=== PATIENT | male | born 1980 | race American Indian/Alaskan Native ===

== ENCOUNTER 2017-08-18 14:52 | Emergency (ER) | payer OTHER ==
[~2017-08-18] VITALS: Ht 172.7 cm; Wt 125.2 kg
--- OUTSIDE RECORDS SUMMARY | ~2017-08-18 | XMS | Encounter Summary ---
Demographics + + + | Address | [address] | | | [place] [address] | + + + | Home Phone | | + + + | Preferred Language | Unknown | + + + | Marital Status | | + + + | Latter Day Affiliation | NON | + + + | Race | or | + + + | Ethnic Group | Not or | + + + Author + + + | Author | [facility] | + + + | Organization | [facility] | + + + | Address | Unknown | + + + | Phone | Unavailable | + + + Support +------+ +---------+ + | Name | Relationship | Address | Phone | +------+ +---------+ + ECON | Unknown | | +------+ +---------+ + ECON | Unknown | | +------+ +---------+ + Care Team Providers + +------+-------+ | Care Body Make Up Artist Name | Role | Phone | + +------+-------+ | Bernardo Pan | PCP | tel | + +------+-------+ Encounter Details +--------+ + + + + | Date | Type | Department | Care Team | Description | +--------+ + + + + | 07/17/ | MyChart | Cardiology General | | A message from your | | 2017 | Encounter | at [facility] [address] | | [employer] | | | | [place] Mailcode: | | | | | | [facility] | | | | | | Health and Healing, | | | | | | [address] [facility], | | | | | | [place] [address] | | | | | | [phone] | | | +--------+ + + + [...] | | + + +---------+ + | Yes [...]
[~2017-08-18 14:52] MED LIST: ANDROGEL5 GM TD; ATORVASTATIN CA20 MG PO; DESMOPRESSIN A0.2 MG PO; EFFIENT10 MG PO; GENOTROPIN SUB-Q; HYDROCODON-ACE1 EAC8 PO; HYDROCORTISONE20 MG PO; IBUPROFEN800 MG PO; IPRATROPIUM BRO15 ML NAS; LEVOTHYROXINE150 MCG PO; LISINOPRIL2.5 MG PO; METFORMIN HCL500 MG PO; METOPROLOL TART25 MG PO; NORCO 10-325 T1 EACH PO; PHENTERMINE H37.5 M1 PO
[2017-08-18] MEDS ORDERED: FENOFIBRATE145 MG PO (14:58)
[2017-08-18] MEDS ORDERED: ASPIR 8181 MG PO (14:58)
[2017-08-18] MEDS ORDERED: ZESTRIL40 MG PO (15:12)
[2017-08-18] MEDS ORDERED: AMLODIPINE BESY10 MG PO (15:14)
[2017-08-18] MEDS ORDERED: GENOTROPIN SUB-Q (15:15)
[2017-08-18] MEDS ORDERED: SERTRALINE HCL50 MG PO (15:16)
[2017-08-18] MEDS ORDERED: XANAX XR0.5 MG PO (15:16)
[2017-08-18] MEDS ORDERED: PROMETHAZINE HC25 M1 PO (15:16)
[2017-08-18] MEDS ORDERED: CYCLOBENZAPRINE10 MG PO (15:17)
[2017-08-18] MEDS ORDERED: PSEUDOEPHEDRINE60 MG PO (15:18)
--- NOTE | 2017-08-18 20:30 | EKG ---
[facility] [address] [facility] [place] [address] Signed Poor data quality, interpretation may be adversely affected Normal sinus rhythm Normal ECG No previous ECGs available Confirmed by APRIL ÁLVAREZ MD ([id number]) on 08/18/2017 8:29:42 PM Electronically Signed By: APRIL ÁLVAREZ MD 08/18/17 2030 PATIENT NAME: FAROOQ LEMA JULIO Electrocardiogram DATE OF : 78 PHYSICIAN: APRIL ÁLVAREZ MD REPORT #: [id number] REPORT IS CONFIDENTIAL AND NOT TO BE RELEASED WITHOUT AUTHORIZATION
== END 2017-08-18 16:20 | disposition home or self-care (01) ==
LOC: ED 14:52
DX: R07.9 Chest pain, unspecified (principal); I10 Essential (primary) hypertension; I25.2 Old myocardial infarction; E66.01 Morbid (severe) obesity due to excess calories; Z87.891 Personal history of nicotine dependence; Z95.5 Presence of coronary angioplasty implant and graft; Z88.1 Allergy status to other antibiotic agents; Z88.8 Allergy status to other drugs, medicaments and biological substances; Z79.82 Long term (current) use of aspirin; Z79.899 Other long term (current) drug therapy
CPT/HCPCS: 71045; 80053; 84484; 85025; 93005; 93010; 96374; 99284; J1885

== ENCOUNTER 2018-11-07 21:27 | Emergency (ER) | payer OTHER ==
[~2018-11-07] VITALS: Ht 172.7 cm; Wt 124.7 kg
--- OUTSIDE RECORDS SUMMARY | ~2018-11-07 | XMS | Clinical Summary ---
Demographics + + + | Address | [address] | | | [place] [address] | + + + | Home Phone | | + + + | Preferred Language | Unknown | + + + | Marital Status | Single | + + + | Yarsanism Affiliation | Unknown | + + + | Race | Unknown | + + + | Ethnic Group | Unknown | + + + Author + + + | Author | [facility] | | | and [place] | + + + | Organization | [facility] | | | and [place] [...] Team Providers + +------+ + | Care Committee Member Name | Role | Phone | + +------+ + | Priscilla Ramírez PA-C | PP | | + +------+ + Allergies + + + + + + | Active Allergy | Reactions | Severity | Noted | Comments | | | | | Date | | + + + + + + | Bacitracin | Other (See Comments) | | 02/14/20 | Doesn't recall | | | | | 15 | reaction | + + + + + + | Isosorbide | Nausea And Vomiting, | High | 03/29/20 | And headache | | | Nausea Only | | 18 | | + + + + + + | Sulfamethoxazole-Tri | Hives, Nausea And | Medium | 07/23/20 | Sores in mouth | | methoprim | Vomiting | | 15 | | + + + + + + Current Medications + + +-------+---------+------+------+-------+ | Prescription | Sig. | Disp. | Refills | Star | End | Statu | | | | | | t | Date | s | | | | | | Date | | | + + +-------+---------+------+------+-------+ | metoprolol | Take 25 mg by mouth | | | 04/10 | | Activ | | tartrate (LOPRESSOR) | Daily. | | | 10/27 | | e | | 25 mg tablet | | | | 12 | | | + + +-------+---------+------+------+-------+ | atorvaSTATin | Take 40 mg by mouth | | | 04/10 | | Activ | | (LIPITOR) 40 mg | Daily. | | | 10/27 | | e | | tablet | | | | 12 | | | + + +-------+---------+------+------+-------+ | desmopressin | Take 0.2 mg by mouth | | | | | Activ | | (DDAVP) 0.2 MG | Daily. Take 1 1/2 | | | | | e | | tablet | tablet int the | | | | | | | | morning and 2 | | | | | | | | tablets int the | | | | | | | | evening | | | | | | + + +-------+---------+------+------+-------+ | levothyroxine | Take 125 mcg by | | | | | Activ | | (SYNTHROID, | mouth every morning | | | | | e | | LEVOTHROID) 175 MCG | (before breakfast). | | | | | | | tablet | | | | | | | + + +-------+---------+------+------+-------+ | Somatropin, | Inject 0.8 mg under | | | | | Activ | | Non-Refrigerated, 5 | the skin Daily. | | | | | e | | MG SOLR | | | | | | | + + +-------+---------+------+------+-------+ | hydrocortisone | Take 25 mg by mouth | | | | | Activ | | (CORTEF) 20 MG | Daily. | | | | | e | | tablet | | | | | | | + + +-------+---------+------+------+-------+ | metFORMIN | Take 500 mg by mouth | | | | | Activ | | (GLUCOPHAGE) 500 mg | 2 times daily (with | | | | | e | | tablet | breakfast & | | | | | | | | dinner). | | | | | | + + +-------+---------+------+------+-------+ | promethazine | Take 25 mg by mouth | | | | | Activ | | (PHENERGAN) 25 mg | every 6 hours as | | | | | e | | tablet | needed. | | | | | | + + +-------+---------+------+------+-------+ | | Take 1 tablet by | | | | | Activ | | HYDROcodone-acetamin | mouth every 4 hours | | | | | e | | ophen (NORCO) 10-325 | as needed. | | | | | | | mg per tablet | | | | | | | + + +-------+---------+------+------+-------+ | Cholecalciferol | Take 7,000 Int'l | | | | | Activ | | (VITAMIN D-3 PO) | Units by mouth | | | | | e | | | Daily. | | | | | | + + +-------+---------+------+------+-------+ | hydrocortisone | Take 5 mg by mouth | | | | | Activ | | (CORTEF) 5 MG tablet | Daily. | | | | | e | + + +-------+---------+------+------+-------+ | aspirin 81 mg EC | Take 81 mg by mouth | | | | | Activ | | tablet | Daily. | | | | | e | + + +-------+---------+------+------+-------+ | fenofibrate | Take 145 mg by mouth | | | | | Activ | | (TRICOR) 145 mg | Daily. | | | | | e | | tablet | | | | | | | + + +-------+---------+------+------+-------+ | clopidogrel | Take 75 mg by mouth | | | | | Activ | | (PLAVIX) 75 mg | Daily. | | | | | e | | tablet | | | | | | | + + +-------+---------+------+------+-------+ | amLODIPine | Take 10 mg by mouth | | | | | Activ | | (NORVASC) 10 MG | Daily. | | | | | e | | tablet | | | | | | | + + +-------+---------+------+------+-------+ | ALPRAZolam (XANAX) | Take 0.5 mg by mouth | | | | | Activ | | 0.5 mg tablet | 3 times daily as | | | | | e | | | needed for Anxiety. | | | | | | + + +-------+---------+------+------+-------+ | sertraline | Take 75 mg by mouth | | | | | Activ | | (ZOLOFT) 50 mg | Daily. | | | | | e | | tablet | | | | | | | + + +-------+---------+------+------+-------+ | cyclobenzaprine | Take 10 mg by mouth | | | | | Activ | | (FLEXERIL) 10 mg | 3 times daily as | | | | | e | | tablet | needed for Muscle | | | | | | | | spasms. | | | | | | + + +-------+---------+------+------+-------+ | fexofenadine | Take 180 mg by mouth | | | | | Activ | | (ADINA) 180 mg | as needed. | | | | | e | | tablet | | | | | | | + + +-------+---------+------+------+-------+ | ranolazine | Take 500 mg by mouth | | | | | Activ | | (RANEXA) 500 mg 12 | 2 times daily. | | | | | e | | hr tablet | | | | | | | + + +-------+---------+------+------+-------+ | testosterone | Inject 200 mg into | | | | | Activ | | cypionate | the muscle every 14 | | | | | e | | (DEPO-TESTOSTERONE) | days. | | | | | | | 200 mg/mL injection | | | | | | | + + +-------+---------+------+------+-------+ | lisinopril | Take 40 mg by mouth | | | | | Activ | | (PRINIVIL,ZESTRIL) | Daily. | | | | | e | | 40 MG tablet | | | | | | | + + +-------+---------+------+------+-------+ | pseudoePHEDrine | Take 60 mg by mouth | | | | | Activ | | (SUDAFED) 60 MG | Daily as needed for | | | | | e | | tablet | Congestion. | | | | | | + + +-------+---------+------+------+-------+ | hydrocortisone, | Inject 50 mg into | | | | | Activ | | PF, (SOLU-CORTEF) 50 | the vein as needed | | | | | e | | mg/mL injection | (adrenal shock). 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 Last | | [facility] 04/2017 in the setting of NSTEMI demonstrated DISTRIBUTION TECHNICIAN RCA with | | collateral flow from LCx, patent mCx stent, 95% proximal LAD | | bifurcation stenosis s/p ROBERTO x 1, LVEDP 36. His chest pain | | resolved after this intervention but started again approximately | | 4 months ago and has been progressing. He has typical angina and | | now occasional gets chest pain at rest. Today he is not | | complaining of chest pain. ECG shows submm diffuse ST elevation | | and q-waves in the inferior leads. He is intolerant to isosorbide | | mononitrate.-- referral for angiogram. Patient advised to avoid | | significant activity until angiogram is completed. He understands | | that he is to call 911 if he develops chest pain that does not | | go away with rest or SL nitroglycerin. Please note that he has | | had multiple unsuccessful/complicated attempts at RRA access.-- | | continue metoprolol 100mg BID-- start ranolazine 500mg BID, EKG | | checked today (QTc 370)-- labs today including pre angiogram labs | | and lp(a)-- stop tobacco use, recommended trial of chewing gum | | instead-- healthy lifestyle changes discussed at length today. | | Weight loss, exercise.-- in the future would likely benefit from | | consultation from Dr. Richardson and Shyann Joseph-- check lp(a) | | to see if he might benefit/quality from more aggressive lipid | | lowering therapy-- continue atorvastatin 80mg, he is also taking | | fenofibrate 145mg daily (ok to continue), LDL 61 on this dose-- | | continue aspirin 81mg-- continue plavix 75mg-- needs better DM | | control as per PCP and nurse practitioner physicians assistant-- BP well controlled today | + + + + + | Excess or deficiency of vitamin D | 07/19/2018 | + + + | Headache | 07/19/2018 | + + + | Lightheadedness | 07/19/2018 | + + + | Mitral valve mass | 07/19/2018 | + + + + + | Overview: Last Assessment & Plan: I have personally reviewed | | the images. I think that the previously seen cardiac mass could | | be artifact versus posterior wall of the left atrium/mitral | | annulus.-- gated cardiac CT to fully evaluate | + + + + + | Nausea and vomiting | 07/19/2018 | + + + | Rib pain | 07/19/2018 | + + + | Spasm of back muscles | 07/19/2018 | + + + | Type 2 diabetes mellitus (HCC) | 07/19/2018 | + + + | Cardiac mass | 03/29/2018 | + + + | Mitral leaflet abnormality | 06/04/2016 | + + + | Vitamin D deficiency | 05/16/2016 | + + + | Deviated nasal septum | 03/21/2016 | + + + | Hypertrophy of nasal turbinates | 03/21/2016 | + + + | Obstructive sleep apnea (adult) (pediatric) | 03/21/2016 | + + + | Hypertrophy of tonsils alone | 03/21/2016 | + + + | Family history of esophageal cancer | 07/25/2015 | + + + | Obesity, unspecified | 07/24/2015 | + + + | Abnormal weight loss | 07/24/2015 | + + + | Coronary atherosclerosis | 06/12/2014 | + + + + + | Overview: Last Assessment & Plan: 2V-CAD, Hx TX, Hx | | PCI/stent, LVEF 60-65%. 36yo M, known to have coronary | | disease, distant infarction, angioplasty and stenting. 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 He going | | to follow up with [facility] Aug 14. He also had cath report prior to | | procedure which had shown 2 vessel coronary artery disease with | | moderate disease to that proximal to mid LAD, stent to left CX, | | chronically occluded RCA with shou-rg-btvcy collaterals. | | Suggestion had been for a saphenous vein graft to be RCA if | | surgery was done Recent CT-head negative for CVA/TIA. He's had a | | number of MRAs of the brain in the past, there've been no prior | | history of stroke, but with his pituitary adenoma and treatments, | | symptoms may be confusing. Previously, Lipid panel reviewed, at | | goal. He reports that his blood pressure has continued to be | | high high but no problems with chest pain. We had started him | | and amlodipine 5 mg when last seen, and metoprolol increased to | | 100 mg this week by PCP, and he reports his systolic blood | | pressure has been improving since he started on metoprolol. He | | is now back to work but has not been as active since weather has | | been colder. He continues to chew tobacco but reports his | | diabetes is now better controlled with his A1c decreased to 6 | | when tested last month. I have asked him to follow-up with her | | nurse practitioner, Sammie conroy, whom he has met before, | | in 3 months. I also asked him to work on increasing his exercise | | and stopping chewing tobacco.Hx CABG: noHx PCI/stent: 02/19/2011, | | mid-LCx (3.5*12mm Promus ROBERTO).Hx Pacemaker/ICD: noLast | | Cath,07/02/2016: 2 vessel coronary artery disease with moderate | | disease of proximal to mid LAD, patent stent and a left | | circumflex, chronically occluded RCA with ulki-ar-jpedu | | collaterals. Suggestion for surgery: saphenous vein graft to | | RCA.Last Echo, 05/22/2016 ([facility]): LVEF 60-65%, | | significant WMA, 7-8mm mass LV-side of posterior Mitral leaflet, | | no MR, trace TR.Last Stress Test, 10/03/2014: Lexiscan, | | infero-apical ischemia, LVEF 54%.ECG, 07/02/2016: sinus rhythm, | | 63bpm, old inferior TX. | + + + + + | Essential hypertension | 06/12/2014 | + + + + + | Overview: Last Assessment & Plan: Hypertension, controlled, | | continue current meds at current doses (amlodipine, metoprolol, | | lisinopril). I will increase amlodipine when I see him next at | | his blood pressure is still not well-controlled.Last Assessment & | | Plan: Well controlled today. Goal BP < 130/80. Cr 1.07 and K 4.4 | | 02/2018.-- continue amlodipine 10mg daily-- continue lisinopril | | 40mg-- continue metoprolol 100mg BID | |-- continue metoprolol 100mg BID | + + + + + | History of pituitary tumor | 06/12/2014 | + + + + + | Overview: Last Assessment & Plan: Pituitary adenoma, followed | | by [facility], associated with hypogonadism, hypothyroidism, diabetes | | insipidus, and adrenal insufficiency. On replacement | | therapy.MRI-brain, 07/13/2151 ([facility]): FINDINGS: Sella and | | parasellar: There is a stable postsurgical appearance of the | | sella with opacification the sphenoid sinus is most likely | | related to surgical packing and/or mucosal thickening. There is a | | stable amount of enhancing tissue within the pituitary fossa but | | no new mass effect or nodularity. Stable mildly thickened | | pituitary infundibulum. Infundibulum is midline. Optic chiasm is | | normal. Parasellar structures are normal. Brain: Visualized | | portions are unremarkable. Soft tissues and marrow: Visualized | | portions are unremarkable. Stable posttreatment appearance of | | the sella is noted since 12/09/[address]-head, | | 06/06/2016: No evidence of acute intracranial hemorrhage, | | transcortical infarction mass. Sphenoid sinusitis with near | | complete opacification. Trace right basilar effusion, probably | | inflammatory. | + + + + + | HLD (hyperlipidemia) | 06/12/2014 | + + + + + | Overview: Last Assessment & Plan: Hyperlipidemia, at gaol, | | continue current meds at current dose (atorvastatin). He reports | | labs done recently and I have asked for them | + + + + + | Acute upper respiratory infection | 08/11/2013 | + + + | Infected insect bite | 06/02/2013 | + + + | Neck sprain | 06/07/2012 | + + + | Disorder of testis | 10/22/2011 | + + + | Fatigue | 10/22/2011 | + + + | Abnormal weight gain | 07/21/2011 | + + + | Contusion of chest | 06/19/2011 | + + + | Ganglion and cyst of synovium, tendon and bursa | 05/29/2011 | + + + | Chest pain | 03/26/2011 | + + + | Acute myocardial infarction (HCC) | 03/11/2011 | + + + | Plantar fasciitis | 03/11/2011 | + + + | Sprain of knee | 01/16/2011 | + + + | Sprain of lateral collateral ligament of knee | 01/16/2011 | + + + | OBSTRUCTIVE SLEEP APNEA | 11/22/2010 | + + + | Hip pain | 11/19/2010 | + + + | Lumbar sprain | 11/19/2010 | + + + | Strain of rotator cuff capsule | 08/26/2010 | + + + | Bursitis of shoulder | 08/13/2010 | + + + | Strain of supraspinatus muscle or tendon | 08/13/2010 | + + + | Myocardial infarction (HCC) | 08/10/2010 | + + + | Acquired hypothyroidism | 07/15/2010 | + + + | Benign essential hypertension | 07/15/2010 | + + + | Diabetes insipidus (HCC) | 07/15/2010 | + + + | Family history of arthritis | 07/15/2010 | + + + | Family history of cardiovascular disease | 07/15/2010 | + + + | Family history of diabetes mellitus | 07/15/2010 | + + + | Family history of musculoskeletal disease | 07/15/2010 | + + + | Mixed hyperlipidemia | 07/15/2010 | + + + | Pituitary dwarfism (HCC) | 07/15/2010 | + + + | Thoracic back sprain | 07/15/2010 | + + + | PANHYPOPITUITARISM | 12/10/2009 | + + + | PITUITARY ADENOMA | 12/10/2009 | + + + | PAINFUL RESPIRATION | 12/10/2009 | + + + | POLYNEUROPATHY OTHER DISEASES CLASSIFIED ELSW | 12/10/2009 | + + + | Adrenal insufficiency (HCC) | 12/08/2006 | + + + | Growth hormone deficiency (HCC) | 12/08/2006 | + + + | Hypogonadism male | 12/08/2006 | + + + | Hypothyroid | 12/08/2006 | + + + | PAIN IN THORACIC SPINE | | + + + | DEGENERATIVE DISC DISEASE, CERVICAL SPINE | | + + + | Shoulder joint pain | | + + + | NECK PAIN | | + + + | Low back pain | | + + + Encounters +--------+---------+ + + + | Date | Type | Specialty | Care Team | Description | +--------+---------+ + + + | 09/28/ | Office | | Sumanth Champion PA | MALLIKA on CPAP (Primary | | 2019 | Visit | | | Dx) | +--------+---------+ + + + from Last 3 Months Social History + + + +--------+ + [...] + +---------+ + | Alcohol Use | Drinks/We | oz/Week | Comments | | | ek | | | + + +---------+ + | No | | | | + + +---------+ + + + + | Sex Assigned at | Date Recorded | | | | + + + | Not on file | | + + + Last Filed Vital Signs + + + + | Vital Sign | Reading | Time Taken | + + + + | Blood Pressure | 124/74 | 09/28/2018 1343 PST | + + + + | Pulse | 58 | 09/28/2018 1343 PST | + + + + | Temperature | 36.6 C (97.9 F) | 06/09/2018 1100 PDT | + + + + | Respiratory Rate | 16 | 09/28/2018 1343 PST | + + + + | Oxygen Saturation | 97% | 09/28/20181342 PST | + + + + | Inhaled Oxygen | - | - | | Concentration | | | + + + + | Weight | 122 kg (268 lb 15.4 | 09/28/20181342 PST | | | oz) | | + + + + | Height | 172.7 cm (5' 8") | 09/28/20181342 PST | + + + + | Body Mass Index | 40.9 | 09/28/20181342 PST | + + + + Plan of Treatment +--------+---------+ + + + | Date | Type | Specialty | Care Team | Description | +--------+---------+ + + + | 11/21/ | Office | | Sumanth Champion PA | | | 2020 | Visit | | [address] | | | | | | [place] | | | | | | [address] | | | | | | | | +--------+---------+ + + + + + + + + | Health Maintenance | Due Date | Last Done | Comments | + + + + + | Diabetic Eye Exam | | | | | | 7 | | | + + + + + | Diabetic Foot Exam | | | | | | 7 | | | + + + + + | Hemoglobin A1c Q3 | | | | | Months | 7 | | | + + + + + | Vaccine: | | | | | Dtap/Tdap/Td (1 - | 8 | | | | Tdap) | | | | + + + + + | Vaccine: | | | | | Pneumococcal 19-64 | 8 | | | | (PPSV23 only) Medium | | | | | Risk (1 of 1 - | | | | | PPSV23) | | | | + + + + + | Vaccine: Influenza | Completed | 2018 | | + + + + + Results Not on filefrom Last 3 Months Insurance + +--------+ +--------+ +---------+ | Payer | Benefi | Subscriber | Type | Phone | Address | | | t Plan | ID | | | | | | / | | | | | | | Group | | | | | + +--------+ +--------+ +---------+ | [employer] | [employer] | [id number] | Medica | [phone]- | | | MEDICAID HMO | HEALTH | | id | 9821 | | | | MDCD | | | | | | | [place] | | | | | + +--------+ +--------+ +---------+ | [facility] | IHS | [id number] | Indemn | | | | SERVICE | YELLOW | | ity | | | | | [place] | | | | | + +--------+ +--------+ +---------+ + +--------+ +--------+ + + | Guarantor Name | Accoun | Relation to | Date | Phone | Billing Address | | | t Type | Patient | of | | | | | | | | | | + +--------+ +--------+ + + | FAROOQ LEMA | Person | Self [birth year] Home: | [address] | | | ivan/Héctor | | 1979 | [phone] | [place] | | | luli | | | 1969 | [phone] | + +--------+ +--------+ + +
--- OUTSIDE RECORDS SUMMARY | ~2018-11-07 | XMS | Encounter Summary ---
Demographics + + + | Address | [address] | | | [place] [address] | + + + | Home Phone | | + + + | Preferred Language | Unknown | + + + | Marital Status | Single | + + + | Yazidism Affiliation | NON | + + + | Race | or | + + + | Ethnic Group | Not or | + + + Author + + + | Author | [email or web address] | + + + | Organization | [email or web address] | + + + | Address | Unknown | + + + | Phone | Unavailable | + + + Support + + +---------+ + | Name | Relationship | Address | Phone | + + +---------+ + | CARLOS HAAS | ECON | Unknown | | + + +---------+ + Care Team Providers + +------+ + | Care Hod Carrier Name | Role | Phone | + [...] Description | +--------+--------+ + + + | 10/21/ | Refill | Neurosurgery at | [place], | Refill Request | | 2019 | | [facility] [address] | [place], | | | | | [place] Mailcode: [id number] | DNP,MELTER SUPERVISOR,[place] [address] | | | | | [facility] | [place], | | | | | and Healing | [place] [address] | | | | | [place], [place] | [phone] | | | | | [address] | | | | | | [phone] | | | +--------+--------+ + + + [...] +---------+ + | No | | | occasionally | + + +---------+ + + + + | Sex Assigned at | Date Recorded | | | | + + + | Not on file | | + + + as of this encounter Plan of Treatment Not on fileas of this encounter Visit Diagnoses Not on filein this encounter"
--- OUTSIDE RECORDS SUMMARY | ~2018-11-07 | XMS | Clinical Summary ---
Demographics + + + | Address | 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 Last | | [facility] 04/2017 in the setting of NSTEMI demonstrated CHAIN BUILDER LOOM CONTROL RCA with | | collateral flow from [...] | | control as per PCP and tsa screener-- BP well controlled today | + + [...] Overview: Last Assessment & Plan: 2V-CAD, Hx ID, Hx | | PCI/stent, LVEF 60-65%. 36yo M, known to have coronary | | disease, distant infarction, angioplasty and stenting. 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 He going | | to follow up with [facility] Aug 14. He also had cath report prior to | | procedure which had shown 2 vessel coronary artery disease with | | moderate disease to that proximal to mid LAD, stent to left CX, | | chronically occluded RCA with [id number]-gh-[id number] collaterals. | | Suggestion had been for [...] | | circumflex, chronically occluded RCA with bapl-zz-utmuj | | collaterals. Suggestion for surgery: saphenous vein graft to | | RCA.Last Echo, 05/22/2016 ([facility]): LVEF 60-65%, | | significant WMA, 7-8mm mass LV-side of posterior Mitral leaflet, | | no MR, trace TR.Last Stress Test, 10/03/2014: Lexiscan, | | infero-apical ischemia, LVEF 54%.ECG, 07/02/2016: sinus rhythm, | | 63bpm, old inferior ID. | + + + + + | [...] Plan: Pituitary adenoma, followed | | by [facility], associated with hypogonadism, hypothyroidism, diabetes | | insipidus, and adrenal insufficiency. On replacement | | therapy.MRI-brain, 07/13/2151 ([facility]): FINDINGS: Sella and | | parasellar: There [...] 2020 | Visit | | [address] | | | | | | [place] | | | | | | [address] | | | | | | | [...] | [employer] | MODA | [id number] | Medica | [phone]- | | | MEDICAID HMO | HEALTH | | id | [id number] | | | | MDCD | | | | | | | [place] | | | | | + +--------+ +--------+ +---------+ | [facility] | IHS | [id number] | Indemn | | | | SERVICE [...] | Self | [birth year] | Home: | [address] | | | ivan/[place]ctor | | 1979 | [phone] | [place] | | | [place] | | | [phone] | [phone] | + +--------+ +--------+ + +
--- OUTSIDE RECORDS SUMMARY | ~2018-11-07 | XMS | Encounter Summary ---
Demographics + + + | Address | [address] | | | [place] [address] | + + + | Home Phone [...] + + | Author | [email or web address] | + + + | Organization | [facility] [email or web address] [facility] | + + + | Address | Unknown | + + + | Phone | Unavailable | + + + Support + + +---------+ + | Name | Relationship | Address | Phone | + + +---------+ + | CARLOS HAAS | ECON | Unknown | | + + +---------+ + Care Team Providers + +------+ + | Care Director Of Counterintelligence Name | Role | Phone | + [...] Description | +--------+--------+ + + + | 09/16/ | Refill | Neurosurgery at | [facility], | Refill Request | | 2019 | | [facility] [address] | Cathie, | | | | | Rosalva Mailcode: [id number] | DNP,PAINT SPRAYING MACHINE 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
--- OUTSIDE RECORDS SUMMARY | ~2018-11-07 | XMS | Encounter Summary ---
Demographics + + + | Address | [address] [facility] | | | [place] [address] | + + + | Home Phone | | + + + | Preferred Language | Unknown | + + + | Marital Status | Single | + + + | Jainism Affiliation | NON | + + + | Race | or | + + + | Ethnic Group | Not or | + + + Author + + + | Author | [facility] | + + + | Organization | [facility] | + + + | Address | Unknown | + + + | Phone | Unavailable | + + + Support + + +---------+ + | Name | Relationship | Address | Phone | + + +---------+ + | CARLOS HAAS | ECON | Unknown | | + + +---------+ + Care Team Providers + +------+ + | Care Scrap Baler Name | Role | Phone | + +------+ + | Priscilla Ramírez PA-C | PCP | | + +------+ + Encounter Details +--------+ + + + + | Date | Type | Department | Care Team | Description | +--------+ + + + + | 10/22/ | MyChart | Cardiology General | | Cardiology Follow up | | 2019 | Encounter | at [facility] [address] | | appointment | | | | [place] Mailcode: | | | | | | [facility] | [facility] | [facility], | | | | | | [address]th Floor [place], | | | | | | [place] [address] | | | | | | [phone] | | | +--------+ + + + [...]
--- OUTSIDE RECORDS SUMMARY | ~2018-11-07 | XMS | Clinical Summary ---
Demographics + + + | Address | [address] | | | [place] [address] | + + + | Home Phone | | + + + | Preferred Language | Unknown | + + + | Marital Status | Single | + + + | Uatsdin Affiliation | Unknown | + + + | Race | Unknown | + + + | Ethnic Group | Unknown | + + + Author + + + | Author | [facility] | + + + | Organization | [facility] | + + + | Address | Unknown | + + + | Phone | Unavailable | + + + Support + + + + + | Name | Relationship | Address | Phone | + + + + + | Alexandria Dixon | ECON | [address] | | | | | [place] | | | | | [address] | | + + + + + | Detailed,Message | ECON | Unknown | | + + + + + | Sofia Reyes ECON | Unknown | | + + + + + Care Team Providers + +------+ + | Care Veterinary Medicine Scientist Name | Role | Phone | + [...] Take 1 tablet by | | | 11/2 | | Activ | | (GLUCOPHAGE) 500 MG | mouth 2 (two) times | | | 6/20 | | e | | tablet | [...] | | (COUMADIN) 5 MG | daily. [place] | | | | | e | | tablet | regulates | | | | | | + + +--------+---------+------+------+-------+ Active Problems + + + | Problem | Noted Date | + + + | CAD (coronary artery disease) | 06/12/2014 | + + + + + | Last Assessment & Plan: 2V-CAD, Hx VA, Hx PCI/stent, LVEF | | 60-65%. 36yo M, known to have coronary disease, distant | | infarction, angioplasty and stenting. 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 He had gone to | | 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 He going to follow up | | with [facility] Aug 14. He also had cath report prior to procedure | | which had shown 2 vessel coronary artery disease with moderate | | disease to that proximal to mid LAD, stent to left CX, | | chronically occluded RCA with eeob-qx-[id number] collaterals. | | Suggestion had been for [...] | | circumflex, chronically occluded RCA with bzpy-it-xgyvq | | collaterals. Suggestion for surgery: saphenous vein graft to | | RCA.Last Echo, 05/22/2016 ([facility]): LVEF 60-65%, | | significant WMA, 7-8mm mass LV-side of posterior Mitral leaflet, | | no MR, trace TR.Last Stress Test, 10/03/2014: Denzeliscan, | | infero-apical ischemia, LVEF 54%.ECG, 07/02/2016: sinus rhythm, | | 63bpm, old inferior VA. | + + + + + | [...] | Last Assessment & Plan: Hyperlipidemia, at [facility], continue | | current meds at current dose (atorvastatin). He reports labs | | done recently and I have asked for them | + + + + + | History of pituitary tumor | 06/12/2014 | + + + + + | Last Assessment & Plan: Pituitary adenoma, followed by [facility], | | associated with hypogonadism, hypothyroidism, diabetes insipidus, | | and adrenal insufficiency. On replacement therapy.MRI-brain, | | 07/13/2151 (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
--- OUTSIDE RECORDS SUMMARY | ~2018-11-07 | XMS | Clinical Summary ---
Demographics + + + | Address | [address] | | | [place] [address] | + + + | Home Phone [...] Author + + + | Author | [facility] | + + + | Organization | [facility] | + + + | Address | Unknown | + + + | Phone | Unavailable | + + + Support + + +---------+ + | Name | Relationship | Address | Phone | + + +---------+ + | CARLOS HAAS | ECON | Unknown | | + + +---------+ + Care Team Providers + +------+ + | Care Travelers' Aid Worker Name | Role | Phone | + +------+ + | Priscilla Ramírez PA-C | PP | | + +------+ + Source Comments [facility] is fully live on both [facility] and [facility] Allergies + + + + + + | Active Allergy | Reactions | Severity | Noted | Comments | | | | | Date | | + + + + + + | Sulfamethoxazole-Tri | Hives, Nausea and | Medium | 11/15/19 | Sores in mouth | | methoprim | Vomiting, Unknown | | 15 | Sores in mouth | + + + + + + | Isosorbide | Headache, Nausea | High | 03/29/20 | | | | | | 18 | | + + + + + + Current Medications + + +--------+---------+------+------+-------+ | Prescription | Sig. | Disp. | Refills | Star | End | Statu | | | | | | t | Date | s | | | | | | Date | | | + + +--------+---------+------+------+-------+ | promethazine 25 mg | Take 1 tablet by | 20 | 1 | 10/2 | | Activ | | oral tablet | mouth four times | tablet | | 4/20 | | e | | | daily as needed for | | | 14 | | | | | nausea/vomiting. | | | | | | + + +--------+---------+------+------+-------+ | hydrocortisone | Inject 1ml for | 1 mg | 1 | 03/1 | | Activ | | sodium succinate, | symptoms of adrenal | | | 9/20 | | e | | PF, (HYDROCORTISONE | crisis. Low blood | | | 15 | | | | SODIUM SUCCINATE) | pressure, vomiting, | | | | | | | 100 mg/2 mL | high heart rate. | | | | | | | injection recon soln | | | | | | | + + +--------+---------+------+------+-------+ | levothyroxine 125 | Take 1 tablet by | 90 | 1 | 04/1 | | Activ | | mcg oral tablet | mouth before | tablet | | 0/20 | | e | | | breakfast. | | | 15 | | | + + +--------+---------+------+------+-------+ | | Take 1 tablet by | | | | | Activ | | HYDROcodone-acetamin | mouth every six | | | | | e | | ophen 10-325 mg oral | hours as needed for | | | | | | | tablet | moderate pain. 4-6 | | | | | | | | tabs daily | | | | | | + + +--------+---------+------+------+-------+ | metFORMIN 500 mg | 2 tabs at breakfast | 90 | 5 | 06/10 | | Activ | | oral tablet | and one tab at | tablet | | 3/20 | | e | | | dinner dialy | | | 15 | | | + + +--------+---------+------+------+-------+ | DEPO-TESTOSTERONE | Inject 200 mg under | | | 10/0 | | Activ | | 200 mg/mL | the skin (SUBC) | | | 5/20 | | e | | intramuscular oil | every fourteen days. | | | 16 | | | + + +--------+---------+------+------+-------+ | cholecalciferol, | Take 6,000 Units by | | | | | Activ | | vitamin D3, 4,000 | mouth once daily. | | | | | e | | unit oral tablet | | | | | | | + + +--------+---------+------+------+-------+ | fenofibrate 145 mg | Take 145 mg by mouth | | 1 | 03/10 | | Activ | | oral tablet | once daily. | | | 0/20 | | e | | | | | | 17 | | | + + +--------+---------+------+------+-------+ | nitroglycerin 0.2 | Apply 1 patch to | | | | | Activ | | mg/hr transdermal | skin as needed. | | | | | e | | patch 24 hour | Patch on period for | | | | | | | | 12-14 hours; Patch | | | | | | | | off period for 10-12 | | | | | | | | hours | | | | | | + + +--------+---------+------+------+-------+ | nitroglycerin 0.4 | Place 0.4 mg under | | | | | Activ | | mg sublingual | tongue every five | | | | | e | | tablet, sublingual | minutes as needed | | | | | | | | for chest pain. | | | | | | | | Place under tongue | | | | | | | | and allow to | | | | | | | | dissolve. | | | | | | | | Administer every 5 | | | | | | | | minutes, max of 3 | | | | | | | | doses in 15 minutes. | | | | | | + + +--------+---------+------+------+-------+ | sertraline HCl | pt reports taking 75 | | | | | Activ | | (SERTRALINE ORAL) | daily | | | | | e | + + +--------+---------+------+------+-------+ | hydrocortisone 20 | Take 1 tablet by | 180 | 3 | 10/2 | | Activ | | mg oral | mouth once daily. | tablet | | 20 | | e | | tabletIndications: | | | | 18 | | | | Pituitary adenoma | | | | | | | | (HCC), | | | | | | | | Panhypopituitarism | | | | | | | | (HCC) | | | | | | | + + +--------+---------+------+------+-------+ | amLODIPine 10 mg | Take 1 tablet by | 90 | 3 | 11/2 | | Activ | | oral tablet | mouth once daily. | tablet | | /20 | | e | | | | | | 18 | | | + + +--------+---------+------+------+-------+ | aspirin chewable | Chew and swallow 1 | 90 | 3 | 11/2 | | Activ | | 81 mg oral | tablet once daily. | tablet | | 9/20 | | e | | tablet,chewable | | | | 18 | | | + + +--------+---------+------+------+-------+ | atorvastatin 80 mg | Take 1 tablet by | 90 | 3 | 11/2 | | Activ | | oral tablet | mouth once daily in | tablet | | /20 | | e | | | the evening. | | | 18 | | | + + +--------+---------+------+------+-------+ | clopidogrel | Take 1 tablet by | 90 | 3 | 11/2 | | Activ | | (PLAVIX) 75 mg oral | mouth once daily in | tablet | | /20 | | e | | tablet | the morning. | | | 18 | | | + + +--------+---------+------+------+-------+ | lisinopril 40 mg | Take 1 tablet by | 90 | 3 | 11/2 | | Activ | | oral tablet | mouth once daily. | tablet | | 9/20 | | e | | | | | | 18 | | | + + +--------+---------+------+------+-------+ | metoprolol | Take 1 tablet by | 180 | 3 | 11/2 | | Activ | | tartrate 100 mg oral | mouth two times | tablet | | /20 | | e | | tablet | daily. | | | 18 | | | + + +--------+---------+------+------+-------+ | ranolazine 1,000 | Take 1 tablet by | 180 | 3 | 11/2 | | Activ | | mg oral tablet | mouth every twelve | tablet | | 20 | | e | | extended release 12 | hours. | | | 18 | | | | hr | | | | | | | + + +--------+---------+------+------+-------+ | hydrocortisone 5 | Take 1 tablet by | 90 | 2 | 12/1 | | Activ | | mg oral | mouth once daily. | tablet | | /20 | | e | | tabletIndications: | | | | 18 | | | | Pituitary adenoma | | | | | | | | (HCC), Adrenal | | | | | | | | insufficiency (HCC) | | | | | | | + + +--------+---------+------+------+-------+ | desmopressin | Take 1 1/2 tablets | 315 | 1 | 02/0 | | Activ | | (DDAVP) 0.2 mg oral | in the morning and 2 | tablet | | 02/26 | | e | | tabletIndications: | tablets in the | | | 19 | | | | Panhypopituitarism | evening. | | | | | | | (HCC) | | | | | | | + + +--------+---------+------+------+-------+ | Somatropin 10 mg/2 | Inject 0.8 mg under | 6 mL | 5 | 03/ | | Activ | | mL (5 mg/mL) | the skin (SUBC) once | | | 11/27 | | e | | subcutaneous | daily. | | | 19 | | | | cartridge | | | | | | | + + +--------+---------+------+------+-------+ Active Problems + + + | Problem | Noted Date | + + + | Cardiac mass | 03/29/2018 | + + + | Panhypopituitarism (HCC) | 07/07/2016 | + + + | Coronary artery disease | 07/07/2016 | + + + | Mitral leaflet abnormality | 06/04/2016 | + + + | Vitamin D deficiency | 05/16/2016 | + + + | Myocardial infarction (HCC) | 08/10/2010 | + + + | Pituitary adenoma (HCC) | 12/08/2006 | + + + | Hypogonadism male | 12/08/2006 | + + + | Growth hormone deficiency (HCC) | 12/08/2006 | + + + | Hypothyroid | 12/08/2006 | + + + | Diabetes insipidus ([facility]) | 12/08/2006 | + + + | Adrenal insufficiency ([facility]) | 12/08/2006 | + + + | Essential hypertension | | + + + + + | Last Assessment & Plan: Well controlled today. Goal BP < | | 130/80. Cr 1.07 and K 4.4 02/2018.-- continue amlodipine 10mg | | daily-- continue lisinopril 40mg-- continue metoprolol 100mg BID | |-- continue metoprolol 100mg BID | + + + +---+ | Coronary artery disease of [place] artery of [place] heart with | | | stable angina pectoris (HCC) | | + +---+ + + | Overview: 2011 [place], LCx stent and SHAFT SINKER of RCA; cath 06/2016: | | moderate LAD disease, patent LCx stent, chronic occlusion RCA | | Last Assessment & Plan: He has premature CAD. Last C 04/2017 | | in the setting of NSTEMI demonstrated SHAFT SINKER RCA with collateral | | flow from LCx, patent mCx stent, 95% proximal LAD bifurcation | | stenosis s/p ROBERTO x 1, LVEDP 36. His chest pain resolved after | | this intervention but started again approximately 4 months ago | | and has been progressing. He has typical angina and now | | occasional gets chest pain at rest. Today he is not complaining | | of chest pain. ECG shows submm diffuse ST elevation and q-waves | | in the inferior leads. He is intolerant [...] | | control as per PCP and supervisor offset plate preparation-- BP well controlled today | + + + +---+ | Mitral valve mass | | + +---+ + + | Last Assessment & Plan: I have personally reviewed the | | images. I think that the previously seen cardiac mass could be | | artifact versus posterior wall of the left atrium/mitral | | annulus.-- gated cardiac CT to fully evaluate | + + Encounters +--------+ + + + + | Date | Type | Specialty | Care Team | Description | +--------+ + + + + | 10/22/ | MyChart | | | Cardiology Follow up | | 2019 | Encounter | | | appointment | +--------+ + + + + | 10/21/ | Refill | | [place], | Refill Request | | 2018 | | | Cathie, | | | | | | DNP,FOOD SAFETY AUDITOR,[place] | | +--------+ + + + + | 09/16/ | Refill | | [place], | Refill Request | | 2018 | | | Cathie, | | | | | | DNP,FOOD SAFETY AUDITOR,[place] | | +--------+ + + + + from Last 3 Months Family History Patient is adopted + + +------+ + | Medical History | Relation | Name | Comments | + + +------+ + | Other | Brother | | heart murmur | + + +------+ + | Heart Disease | Father | | | + + +------+ + | Arthritis | Mother | | | + + +------+ + | Diabetes | Mother | | | + + +------+ + | Heart Attack | Mother | | | + + +------+ + | Heart Disease | Mother | | | + + +------+ + | Hypertension | Mother | | | + + +------+ + | Hypertension | Sister | | | + + +------+ + + +------+--------+ + | Relation | Name | Status | Comments | + +------+--------+ + | Brother | | Alive | | + +------+--------+ + | Father | | Alive | | + +------+--------+ + | Mother | | Alive | | + +------+--------+ + | Sister | | Alive | | + +------+--------+ [...] + + + | Blood Pressure | 120/69 | 04/13/2018 12:30 PM PDT | + + + + | Pulse | 55 | 04/13/2018 1:00 PM PDT | + + + + | Temperature | 36.6 C (97.9 F) | 04/13/2018 10:30 AM PDT | + + + + | Respiratory Rate | 12 | 04/13/2018 1:00 PM PDT | + + + + | Oxygen Saturation | 97% | 04/13/2018 1:00 PM PDT | + + + + | Inhaled Oxygen | - | - | | Concentration | | | + + + + | Weight | 122.8 kg (270 lb | 04/13/2018 7:26 AM PDT | | | 11.6 oz) | | + + + + | Height | 172.7 cm (5' 8") | 04/13/2018 7:26 AM PDT | + + + + | Body Mass Index | 41.16 | 04/13/2018 7:26 AM PDT | + + + + Plan of Treatment + + + + + | Health Maintenance | Due Date | Last Done | Comments | + + + + + | Influenza (Flu) | | | | | vaccination (#1) | 8 | | | + + + + + Results Not on filefrom Last 3 Months Insurance + +--------+ +--------+-------+---------+ | Payer | Benefi | Subscriber | Type | Phone | Address | | | t Plan | ID | | | | | | / | | | | | | | Group | | | | | + +--------+ +--------+-------+---------+ | [employer] MEDICAID | [employer] | [id number] | Medica | | | | | [place] | | id | | | | | [place] | | | | | + +--------+ +--------+-------+---------+ | HEALTH | | [id number] | Agency | | | | SERVICE | | | | | | | | HEALTH | | | | | | | | | | | | | | SERVIC | | | | | | | E | | | | | + +--------+ +--------+-------+---------+ + +--------+ +--------+ + + | Guarantor Name | Accoun | Relation to | Date | Phone | Billing Address | | | t Type | Patient | of | | | | | | | | | | + +--------+ +--------+ + + | FAROOQ LEMA | Person | Self | [birth year] | Home: | [address] | | | al/Fam | | 1979 | +- | [place], [place] | | | luli | | | [phone] | [phone] | + +--------+ +--------+ + + | FAROOQ LEMA | Agency | Self | [birth year] | Home: | [address] | | | | | 1979 | +- | [place] | | | | | | [address] | [address] | + +--------+ +--------+ + +
--- OUTSIDE RECORDS SUMMARY | ~2018-11-07 | XMS | Encounter Summary ---
Demographics + + + | Address | [address] | | | [place] [address] | + + + | Home Phone | | + + + | Preferred Language | Unknown | + + + | Marital Status | Single | + + + | Mosque Affiliation | Unknown | + + + | Race | Unknown | + + + | Ethnic Group | Unknown | + + + Author + + + | Author | [facility] | | | and [place] | + + + | Organization | [facility] | | | and [place] [...] Team Providers + +------+ + | Care Walking Dragline Operator Name | Role | Phone | + +------+ + | Priscilla Ramírez PA-C | PCP | | + +------+ + Reason for Visit + + + | Reason | Comments | + + + | CPAP Follow Up | | + + + Evaluate & Treat (Routine) +--------+--------+ + + + + | Status | Reason | Specialty | Diagnoses / | Referred By | Referred To | | | | | Procedures | Contact | Contact | +--------+--------+ + + + + | Closed | | Physician | Diagnoses | Nba, | Sumanth Champion | | | | Smoking Pipes Cleaner / | Obstructive | Bren Lawson, | BRETT Gracia [address] | | | | Sleep | sleep apnea | [place] [address] | [address] | | | | Medicine | (adult) | [address] | [place] | | | | | (pediatric) | WAY | [place] [address] | | | | | [address] | [place], | Phone: | | | | | EQUIP/COMPLI | [place] [address] | [phone] | | | | | ANCE | Phone: | Fax: | | | | | Procedures | [phone] | [phone] | | | | | OFFICE VISIT | Fax: | | | | | | EXTENDED | [phone] | | +--------+--------+ + + + + Encounter Details +--------+---------+ + + + | Date | Type | Department | Care Team | Description | +--------+---------+ + + + | 09/28/ | Office | [facility] | Sumanth Champion PA | MALLIKA on CPAP (Primary | | 2019 | Visit | SLEEP DISORDER [address] | [address] | Dx) | | | | [address] [place] | [place], [place] | | | | | [place] [address] | [address] | | | | | [phone] | | | +--------+---------+ + + + [...] + + + as of this encounter Last Filed Vital Signs + + + + | Vital Sign | Reading | Time Taken | + + + + | Blood Pressure | 124/74 | 09/28/20183 PST | + + + + | Pulse | 58 | 09/28/20181342 PST | + + + + | Temperature | - | - | + + + + | Respiratory Rate | 16 | 09/28/20181342 PST | + + + + | Oxygen Saturation | 97% | 09/28/20181342 PST | + + + + | Inhaled Oxygen | - | - | | Concentration | | | + + + + | Weight | 122 kg (268 lb 15.4 | 09/28/2018 1343 PST | | | oz) | | + + + + | Height | 172.7 cm (5' 8") | 09/28/2018 1343 PST | + + + + | Body Mass Index | 40.9 | 09/28/2018 1343 PST | + + + + in this encounter Progress Notes Sumanth Champion PA - 09/28/2018 1430 PSTFormatting of this note may be different from the or iginal. Subjective: Patient ID: Amairani Ulloa is a 38 y.o. male. HPI last office visit: 07/19/2018 date of polysomnography: 12/10/2006 AHI: 38.9 O2%: 75% with 19.7 minutes below 88% Machine type: ResMed AirSense 10. Mask type: nasal mask DME: [facility] [place] pressure: 12-18 cm Median: 12.5 cm 95%: 14.8 cm maximum: 17.5 cm Nights using CPAP: 38/42 % of nights >4 hours: 88% average usage (all nights): 5:53 average usage (nights used): 6:30 AHI: 0.5 Shai comes in for CPAP compliance. He has struggled with his CPAP usage in the past, but h as done well with his ResMed AirSense 10. He feels that it is working much better than his previous machine. His sleep has been less disrupted and he has been able to wear it for the duration of his sleep consistently. He is sleeping better and feels more rested with more energy during the day. He slept without it on a couple of nights and did not sleep nearly a s well. He is motivated to wear it 100% of the time he is asleep because is has been sleepi ng and feeling so much better. He does not have any questions or concerns. I have discussed the download in detail. This shows that his sleep apnea is controlled, wi th an AHI of 0.5. It also shows that his leaks are controlled. It shows that he is wearing his CPAP >4 hours for 96% of the nights during 30 consecutive nights. He had nasal septum surgery on 04/08/2016. This has helped him to be able to breathe throug h his nose much more easily, which has made it easier for him to use his CPAP. BP 124/74 | Pulse 58 | Resp 16 | Ht 1.727 m (5' 8") | Wt 122 kg (268 lb 15.4 oz) | SpO 2 97% | BMI 40.90 kg/m Review of Systems Objective: Physical Exam Assessment: Problem #1: OBSTRUCTIVE SLEEP APNEA ([id number]-Y10.33) This is controlled with CPAP. He is doing well with his CPAP usage with his ResMed AirSens e 10. He has used his CPAP >4 hours for 96% of the nights for 30 consecutive nights. Plan: 1. He is to continue with CPAP indefinitely. 2. Touch base with medical supplier twice per year to ensure that all equipment is satisfa ctory. I will follow up again in 1 year, sooner prn. At that time we will reassess with all appro priate paperwork. Fifteen minutes were spent [id number], with the majority of time spent in counseling. Sumanth Champion PA-C Cc: BRETT Orr in this encounter Plan of Treatment +--------+---------+ + + + | Date | Type | Specialty | Care Team | Description | +--------+---------+ + + + | 11/21/ | Office | Sleep Medicine | Sumanth Champion PA | | | 2019 | Visit | | [address] | | | | | | [place] | | | | | | [address] | | | | | | | | +--------+---------+ + + + as of this encounter Visit Diagnoses + + | Diagnosis | + + | MALLIKA on CPAP - Primary | + + | Obstructive sleep apnea (adult) (pediatric) | + +
--- OUTSIDE RECORDS SUMMARY | ~2018-11-07 | XMS | Encounter Summary ---
Demographics + + + | Address | [address] | | | [place] [address] | + + + | Home Phone [...] Author + + + | Author | [facility] [employer] [facility] | + + + | Organization | [facility] [employer] [facility] | + + + | Address | Unknown | + + + | Phone | Unavailable | + + + Support + + +---------+ + | Name | Relationship | Address | Phone | + + +---------+ + | CARLOS HAAS | ECON | Unknown | | + + +---------+ + Care Team Providers + +------+ + | Care Kettle Operator Head Name | Role | Phone | + [...] | | | Rosalva Mailcode: [id number] | DNP,DISBURSING OFFICER,[place] [address] | | | | | [facility] | [address] [place], | | | | | and Healing | [place] [address] | | | | | [place], [place] | [phone] | | | | | [address] | | | | | | [phone] | | | +--------+--------+ + + + [...]
--- OUTSIDE RECORDS SUMMARY | ~2018-11-07 | XMS | Encounter Summary ---
Demographics + + + | Address | [address] | | | [place] [address] | + + + | Home Phone | | + + + | Preferred Language | Unknown | + + + | Marital Status | Single | + + + | Denominational Affiliation | NON | + + + | Race | or | + + + | Ethnic Group | Not or | + + + Author + + + | Author | [facility] [employer] [facility] | + + + | Organization | [facility] [employer] [facility] | + + + | Address | Unknown | + + + | Phone | Unavailable | + + + Support + + +---------+ + | Name | Relationship | Address | Phone | + + +---------+ + | CARLOS HAAS | ECON | Unknown | | + + +---------+ + Care Team Providers + +------+ + | Care Precision Assembler Bench Name | Role | Phone | + +------+ + | Priscilla Ramírez PA-C | PCP | | + +------+ + Encounter Details +--------+ + + + + | Date | Type | Department | Care Team | Description | +--------+ + + + + | 10/22/ | MyChart | Cardiology General | | Cardiology Follow up | | 2019 | Encounter | at [facility] [address] | | appointment | | | | [address] Mailcode: | | | | | | [facility] | | | | [facility], | | | | | | [address]th Floor [place], | | | | | | [place] [address] | | | | | | [phone] | | | +--------+ + + + [...]
--- OUTSIDE RECORDS SUMMARY | ~2018-11-07 | XMS | Encounter Summary ---
Demographics + + + | Address | [address] | | | [place] [address] | + + + | Home Phone [...] + + | Author | [facility] [employer] [facility] | + + + | Organization | [facility] [employer] [facility] | + + + | Address | Unknown | + + + | Phone | Unavailable | + + + Support + + +---------+ + | Name | Relationship | Address | Phone | + + +---------+ + | CARLOS HAAS | ECON | Unknown | | + + +---------+ + Care Team Providers + +------+ + | Care Shingle Cutter Name | Role | Phone | [...] | | Rosalva Mailcode: [id number] | DNP,EMERGENCY VETERINARY ASSISTANT,[place] [address] | | | | | [facility] | [address] [place], | | | | | and Healing | [place] [address] | | | | | [place], [place] | [phone] | | | | | [address] | | | | | | [phone] | | | +--------+--------+ + + + [...]
--- OUTSIDE RECORDS SUMMARY | ~2018-11-07 | XMS | Encounter Summary ---
Demographics + + + | Address | [address] | | | [place] [address] | + + + | Home Phone | | + + + | Preferred Language | Unknown | + + + | Marital Status | Single | + + + | Mandaeism Affiliation | Unknown | + + + | Race | Unknown | + + + | Ethnic Group | Unknown | + + + Author + + + | Author | [facility] | | | and [place] | + + + | Organization | [facility] | | | and [...] Providers + +------+ + | Care Job Setter Honing Name | Role | Phone | + [...] | Sumanth Champion | | | | Planner Intern / | Obstructive | Bren Lawson, | BRETT Gracia [address] | | | | Sleep | sleep apnea | [place] [address] | [address] | | | | Medicine | (adult) | [place] | [place] | | | | | (pediatric) | WAY | [place] [address] | | | | | [address] | [place], | Phone: | | | | | EQUIP/COMPLI | [place] [address] | [phone] | | | | | ANCE | Phone: | Fax: | | | | | Procedures | [phone] | [phone] | | | | | OFFICE VISIT | Fax: | | | | | | EXTENDED | [phone] | | +--------+--------+ + + + + Encounter Details +--------+---------+ + + + | Date | Type | Department | Care Team | Description | +--------+---------+ + + + | 09/28/ | Office | [facility] | Sumanth Champion PA | MALLIKA on CPAP (Primary | | 2019 | Visit | SLEEP DISORDER [address] | [address] | Dx) | | | | [address] [place] | [place], [place] | | | | | [place] [address] | [address] | | | | | [phone] | | | +--------+---------+ + + + [...] Exam Assessment: Problem #1: OBSTRUCTIVE SLEEP APNEA ([id number]) This is controlled with CPAP. He is [...] appro priate paperwork. Fifteen minutes were spent [id number], with the majority of time spent in [...] [place] | | | | | | [address] | | | | | | | | +--------+---------+ + + + as of this encounter Visit Diagnoses + + | Diagnosis | + + | MALLIKA on CPAP - Primary | + + | Obstructive sleep apnea (adult) (pediatric) | + +
--- OUTSIDE RECORDS SUMMARY | ~2018-11-07 | XMS | Clinical Summary ---
Demographics + + + | Address | [address] | | | [place] [address] | + + + | Home Phone [...] + + + | Author | [facility] [employer] | + + + | Organization | [facility] [employer] | + + + | Address | Unknown | + + + | Phone | Unavailable | + + + Support + + + + + | Name | Relationship | Address | Phone | + + + + + | Alexandria Dixon | ECON | [address] | | | | | [place] | | | | | [address] | | + + + + + | Detailed,Message | ECON | Unknown | | + + + + + | Sofia Reyes ECON | Unknown | | + + + + + Care Team Providers + +------+ + | Care Remnant Sorter Name | Role | Phone | + [...] | Last Assessment & Plan: 2V-CAD, Hx KS, Hx PCI/stent, LVEF | | 60-65%. 36yo M, known to have coronary disease, distant | | infarction, angioplasty and stenting. 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 He going to follow up | | with [facility] Aug 14. He also had cath report prior to procedure | | which had shown 2 vessel coronary artery disease with moderate | | disease to that proximal to mid LAD, stent to left CX, | | chronically occluded RCA with vohy-qq-hfmer collaterals. | | Suggestion had been for [...] | | circumflex, chronically occluded RCA with amel-vr-onwip | | collaterals. Suggestion for surgery: saphenous vein graft to | | RCA.Last Echo, 05/22/[address] ([facility]): LVEF 60-65%, | | significant WMA, 7-8mm mass LV-side of posterior Mitral leaflet, | | no MR, trace TR.Last Stress Test, 10/03/2014: [facility], | | infero-apical ischemia, LVEF 54%.ECG, 07/02/2016: sinus rhythm, | | 63bpm, old inferior KS. | + + + + + | [...] | Last Assessment & Plan: Hyperlipidemia, at [facility], continue | | current meds at current dose (atorvastatin). He reports labs | | done recently and I have asked for them | + + + + + | History of pituitary tumor | 06/12/2014 | + + + + + | Last Assessment & Plan: Pituitary adenoma, followed by [facility], | | associated with hypogonadism, hypothyroidism, diabetes insipidus, | | and adrenal insufficiency. On replacement therapy.MRI-brain, | | 07/13/2151 ([facility]): FINDINGS: Sella and parasellar: There is a [...] | | + +--------+ +------+-------+ + | READING/[facility] | YELLOW | [id number] | | | | | PLANS | [place] | | | | | + +--------+ +------+-------+ + | MEDICAID | [place] | [id number] | | | [address] | | | N | | | | [place] | | | [place] | | | | [address] | | | RADIO RECORDER | | | | | + +--------+ [...] | Self | [birth year] | Home: | [address] | | | al/Héctor | | 1980 | [phone] | [place] | | | luli | | | [address] | [address] | + +--------+ +--------+ + +
--- OUTSIDE RECORDS SUMMARY | ~2018-11-07 | XMS | Clinical Summary ---
Demographics + + + | Address | [address] [address] | | | [place] [address] | + + + | Home Phone [...] Providers + +------+ + | Care Investment Manager Name | Role | Phone | + +------+ + | Priscilla Ramírez PA-C | PP | | + +------+ + Source Comments MIRTHA is fully live on both [facility] and [facility] In[facility] Allergies + + + + + + [...] | + + + | Diabetes insipidus ([facility]) | 12/08/2006 | + + + | Adrenal insufficiency ([facility]) | 12/08/2006 | + + + | [...] + +---+ | Coronary artery disease of [place] artery of [place] heart with | | | stable angina pectoris (HCC) | | + +---+ + + | Overview: 2011 [place], LCx stent and ADMINISTRATIVE REPRESENTATIVE of RCA; cath 06/2016: | | moderate LAD disease, patent LCx stent, chronic occlusion RCA | | Last Assessment & Plan: He has premature CAD. Last C 04/2017 | | in the setting of NSTEMI demonstrated ADMINISTRATIVE REPRESENTATIVE RCA with collateral | | flow from [...] | | control as per PCP and transportation associate-- BP well controlled today | + + [...] Cathie, | | | | | | DNP,FRENCH TRANSLATOR,[place] | | +--------+ + + + + | 09/16/ | Refill | | [place], | Refill Request | | 2018 | | | Cathie, | | | | | | DNP,FRENCH TRANSLATOR,[place] | | +--------+ + + + + [...] | | | + +--------+ +--------+-------+---------+ | ACADEMY DIRECTOR MEDICAID | ACADEMY DIRECTOR | xxxxxxxx | Medica | | | [...] | Self | [birth year] | Home: | [address] | | | al/Fam | | 1979 | +- | [place], [place] | | | luli | | | [address] | [address] | + +--------+ +--------+ + + | FAROOQ LEMA | Agency | Self | [birth year] | Home: | [address] | | | | | 1979 | +- | [place] | | | | | | [address] | [address] | + +--------+ +--------+ + +
[~2018-11-07 21:27] MED LIST changes: +AMLODIPINE BESY10 MG PO; +ASPIR 8181 MG PO; +CYCLOBENZAPRINE10 MG PO; +FENOFIBRATE145 MG PO; +PROMETHAZINE HC25 M1 PO; +PSEUDOEPHEDRINE60 MG PO; +SERTRALINE HCL50 MG PO; +XANAX XR0.5 MG PO; +ZESTRIL40 MG PO
--- OUTSIDE RECORDS SUMMARY | 2018-11-07 21:30 | XMS ---
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 Ashley has no Care Guidelines for this patient. Yulia VISIT COUNT (12 MO.) 1 CRISTIAN Arciniega TOTAL 1 NOTE: Visits indicate total known visits. ED/UCC VISIT TRACKING (12 MO.) 11/07/2018 21:27 CRISTIAN Ferrer [place] TYPE: Emergency COMPLAINT: - FALL/BACK PAIN INPATIENT VISIT TRACKING (12 MO.) No inpatient visits to display in this time frame [email or web address]
[2018-11-07] MEDS ORDERED: VITAMIN D1000 UNI1 PO (21:45)
[2018-11-07] MEDS ORDERED: VITAMIN D35000 UNI1 PO (21:45)
[2018-11-07] MEDS ORDERED: CLOPIDOGREL75 MG PO (21:47)
[2018-11-07] MEDS ORDERED: ALLEGRA ALLERG180 MG PO (21:55)
[2018-11-07] MEDS ORDERED: HYDROCODON-ACE1 EAC8 PO (21:57)
[2018-11-07] MEDS ORDERED: RANEXA1000 MG PO (21:58)
[2018-11-07] MEDS ORDERED: TESTOSTERO200 MG/1 M IM (22:02)
[2018-11-07] MEDS ORDERED: SOLU-CORTEF100 MG INJ (22:04)
[2018-11-07] MEDS ORDERED: METFORMIN HCL1000 MG PO (22:05)
[2018-11-07] MEDS ORDERED: NORCO 5-325 TA1 EACH PO (23:28)
== END 2018-11-07 23:37 | disposition home or self-care (01) ==
LOC: ED 21:27
DX: S80.812A Abrasion, left lower leg, initial encounter (principal); T14.8XXA Other injury of unspecified body region, initial encounter; I10 Essential (primary) hypertension; E78.00 Pure hypercholesterolemia, unspecified; I25.2 Old myocardial infarction; E66.01 Morbid (severe) obesity due to excess calories; E11.9 Type 2 diabetes mellitus without complications; Z95.5 Presence of coronary angioplasty implant and graft; Z88.2 Allergy status to sulfonamides; Z88.1 Allergy status to other antibiotic agents; Z79.899 Other long term (current) drug therapy; Z79.4 Long term (current) use of insulin; Z79.82 Long term (current) use of aspirin; W11.XXXA Fall on and from ladder, initial encounter
CPT/HCPCS: 71046; 72128; 72131; 73560; 73590; 99284-25

== ENCOUNTER 2019-07-14 21:46 | Emergency (ER) | payer OTHER ==
[~2019-07-14] VITALS: Ht 172.7 cm; Wt 124.7 kg
--- OUTSIDE RECORDS SUMMARY | ~2019-07-14 | XMS | Encounter Summary ---
Demographics + + + | Address | [address] | | | [place] [address] | + + + | Home Phone | | + + + | Preferred Language | Unknown | + + + | Marital Status | Single | + + + | Advent Affiliation | NON | + + + | Race | or | + + + | Ethnic Group | Not or | + + + Author + + + | Author | [place] [facility] | + + + | Organization | [facility] | + + + | Address | Unknown | + + + | Phone | Unavailable | + + + Support + + +---------+ + | Name | Relationship | Address | Phone | + + +---------+ + | Alexandria Dixon | ECON | Unknown | | + + +---------+ + Care Team Providers + +------+ + | Care Automobile Or Truck Rental Dispatcher Name | Role | Phone | + +------+ + | Jhonny Rodriguez DO | PCP | | + +------+ + Reason for Visit + + + | Reason | Comments | + + + | Return Patient | | + + + Office Visit - E/M Services (Routine) +--------+--------+ + + + + | Status | Reason | Specialty | Diagnoses / | Referred By | Referred To | | | | | Procedures | Contact | Contact | +--------+--------+ + + + + | Closed | | Neurological | Diagnoses | Walker, | Donnie, | | | | Surgery | Pituitary | Jhonny Mcdonough DO | Cathie, | | | | | adenoma | [address] | DNP,[place] | | | | | (HCC) | [address] | [address] | | | | | Procedures | [place], | Ave | | | | | [place] | [place] [address] | [place], [place] | | | | | OFFICE/OUTPT | Phone: | [phone] | | | | | | [phone] | Phone: | | | | | VISIT,EST,LE | Fax: | [phone] | | | | | VL I [place] | [phone] | Fax: | | | | | OFFICE/OUTPT | | [phone] | | | | | | | | | | | | VISIT,EST,LE | | | | | | | VL II [place] | | | | | | | OFFICE/OUTPT | | | | | | | | | | | | | | VISIT,EST,LE | | | | | | | LISHA III [place] | | | | | | | OFFICE/OUTPT | | | | | | | | | | | | | | VISIT,EST,LE | | | | | | | VL IV [place] | | | | | | | EST PATIENT | | | | | | | LEVEL V | | | +--------+--------+ + + + + Encounter Details +--------+---------+ + + + | Date | Type | Department | Care Team | Description | +--------+---------+ + + + | 01/04/ | Office | Neurosurgery at | Donnie, | Pituitary adenoma | | 2012 | Visit | [facility] [address] | Cathie | ([facility]) (Primary Dx) | | | | Rosalva Mailcode: [id number] | DNP,RN [place] [address] | | | | | [facility] | [address] [place], | | | | | [place], | [place] [address] | | | | | [place] [address] | [phone] | | | | | [place], [place] | | | | | | [address] | | | | | | [phone] | | | +--------+---------+ + + + Social History + +-------+ +--------+------+ | Tobacco Use | Types | Packs/Day | Years | Date | | | | | Used | | + +-------+ +--------+------+ | Former Smoker | | | | | + +-------+ +--------+------+ + +------+---+---+ | Smokeless Tobacco: | Chew | | | | Current User | | | | + +------+---+---+ + + | Comments: occasionally | + + + + +---------+ + | Alcohol Use | Drinks/Week | oz/Week | Comments | + + +---------+ + | Yes | | | occasionally | + + +---------+ + + + + | Sex Assigned at | Date Recorded | | | | + + + | Not on file | | + + + + + + + | Job Start Date | Occupation | Industry | + + + + | Not on file | Not on file | Not on file | + + + + + + + + | Travel History | Travel Start | Travel End | + + + + + + | No recent travel history available. | + + documented as of this encounter Last Filed Vital Signs + + + + + | Vital Sign | Reading | Time Taken | Comments | + + + + + | Blood Pressure | 142/92 | 01/04/2013 1:18 PM | | | | | PDT | | + + + + + | Pulse | 84 | 01/04/2013 1:18 PM | | | | | PDT | | + + + + + | Temperature | 36.7 C (98.1 F) | 01/04/2013 1:18 PM | | | | | PDT | | + + + + + | Respiratory Rate | - | - | | + + + + + | Oxygen Saturation | - | - | | + + + + + | Inhaled Oxygen | - | - | | | Concentration | | | | + + + + + | Weight | 135.5 kg (298 lb | 01/04/2013 1:18 PM | | | | 11.2 oz) | PDT | | + + + + + | Height | - | - | | + + + + + | Body Mass Index | 45.42 | 12/05/2011 1:01 PM | | | | | PDT | | + + + + + documented in this encounter Progress Notes Cathie Fields, SANIYA,RN [place] - 01/04/2013 2:06 PM PDTReason for visit. Amairani Tyler juanita broussard to pituitary clinic 11/30/09 for interval review of pituitary symptoms and titration of h ormone replacement. 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 Reuben Styles. He had a cardiac stent place 02/2011 after an ND. At this visit; Symptoms and Complaints: Hair Loss (on head): Same (01/04/131323) Facial Hair (women-increase; men-decrease): Same (01/04/131323) Headache: Same (01/04/131323) Increase in space between teeth: Same (01/04/131323) Nasal dripping or salty taste in mouth: Same (01/04/131323) Facial rounding: Same (01/04/131323) Facial redness: Same (01/04/131323) Acne: Same (01/04/131323) Hump on back of neck: Same (01/04/131323) Fat filling around collar bones: Same (01/04/131323) Blurry Vision, intermittent: Same (01/04/131323) Constipation: Same (01/04/131323) Diarrhea: Same (01/04/131323) Breast tenderness (men): Same (01/04/131323) Breast enlargement (men): Same (01/04/131323) Breast discharge: Same (01/04/131323) Belly discomfort: Same (01/04/131323) Nausea: Same (01/04/131323) Vomiting: Same (01/04/131323) Dry skin: Same (01/04/131323) Oily skin: Same (01/04/131323) Skin tags: Same (01/04/131323) Dark patches of skin under arms: Same (01/04/131323) Easy bruising: Same (01/04/131323) Thin skin: Same (01/04/131323) Stretch morse: Same (01/04/131323) Rash: Same (01/04/131323) Temperature fluctuations: Same (01/04/134) Weight change: Same (01/04/131323) Weight gain mostly around midsection: Same (01/04/13 1324) Poor wound healing: Same (01/04/131323) Hot flashes: Same (01/04/13 1324) Night sweats: Worse (01/04/131323) Decreased sexual interest: Same (01/04/131323) Increased thirst: Same (01/04/131323) Increased urination: Same (01/04/131323) Increased hunger: Same (01/04/131323) Acid Reflux/Heartburn: Same (01/04/131323) Heart racing or pounding: Same (01/04/131323) Fractures / Height loss: Same (01/04/131323) Chest pain: Same (01/04/131323) Blood in stool: Same (01/04/131323) Blood in urine: Same (01/04/131323) Blood in phlegm: Same (01/04/13 132) Shortness of breath: Same (01/04/13 1324) Wheezing: Same (01/04/131323) Blood sugar: Same (01/04/131323) Blood pressure: Same (01/04/131323) Sleep apnea (snoring): Same (01/04/13 1324) Lipids (high): Same (01/04/13 1324) Weakness: Same (01/04/13 132) Swelling / edema : Same (01/04/13 132) Brittle fingernails: Same (01/04/13 1324) Joint aches: Same (01/04/13 132) Tremor: Same (01/04/131323) Cramping: Same (01/04/131323) Increase in size of hands: Same (01/04/131323) Increase in size of feet: Same (01/04/131323) Hand / finger numbness (carpal tunnel syndrome): Same (01/04/13 1324) Memory problems: Same (01/04/13 132) Poor concentration: Same (01/04/13 132) Sleep disturbances: Same (01/04/131323) Fatigue: Same (01/04/131323) Anxiety: Same (01/04/131323) Depression: Same (01/04/131323) Emotional ups and downs: Same (01/04/131323) Feelings of social isolation: Same (01/04/131323) Seizures: Same (01/04/131323) Fainting spells: Same (01/04/131323) Dizziness with standing: Same (01/04/131323) weight loss still labile. Doing well at new job. Had ER visit for presumed spider bites on right arm. Tx with antibiotic did have fever now resolved. Continues to to have inflammation at sites - 7 wounds Using testsoterone irregularly. Sexual function remains poor. No fatigue back pain no change. No injuries over the last 6 mths B/p monitored and stable Was taking double dose of thyroid stopped last month started Aug 2012 no tachycardia. No chest pain and no shortness of breath Continues to be tx with narcotics for back pain Uses CPAP more regularly- has new machine No visual changes some blurriness with fatigue Mood stable. Headaches x 2-3 x/week 8/10 once a week usually sleeps to resolve. Sleeps 12-14 Usually sleep 3-4 hrs a noc. No polyuria or polydipsia no nocturia Exact date of onset of symptoms is unknown Review of systems negative other than as stated above. Physical Exam: Blood pressure 142/92, pulse 84, temperature 36.7 C (98.1 F), temperature source Oral, weight 135.489 kg (298 lb 11.2 oz). General: A pleasant man who looks stated age in no acute distress, well nourished, and wel l developed. HEENT: Normocephalic and atraumatic. Pupils are equally responsive and reactive to light. E xtraocular movements are intact. Visual godinez are normal to confrontation as are the remain nicanor of cranial nerves. No acne, facial plethora, with facial rounding, nofrontal bossing, protruding jaw, or gaps between the teeth. Neck: Without dorsocervical hump or supraclavicular fat pad filling. No lymphadenopathy or jugular vein distention. Thyroid is normal in size and texture without bruits. Heart: Regular rate and rhythm. No murmurs, rubs, or gallops. Lungs: Clear to auscultation. No rhonchi, rales, or wheezes. Abdomen: Positive bowel sounds, nontender, and nondistended. No organomegaly, some truncal obesity, no violaceous striae. Breasts: Without tenderness. : Deferred. Skin: No hyperpigmentation or dry, sweaty, or oily. No skin tags, thinning of skin or bruising. Extremities: Upper extremities: Without proximal muscle weakness, no carpal tunnel syndrome. No hand enlargement or tremor. Lower extremities: Without edema. Neurologic: Pt is alert and oriented x3, 5/5 motor and sensory throughout. No delayed relax ation phase of the brachial reflex. LABS BMP,IGF-1, TSH, Free T4, Testosterone, Prolactin pending Assessment and discussion: Pt continues to be stable. He continues to have difficulty taking all medications. He repor ts he is compliant with hydrocortisone and with DDAVP. NO episodes of SYED or injuries requi ring increased doses over the last 6 months. He continues to report poor sexual function b ut this is likely related to his intermittent use of testosterone. We again discussed his increased risk of bone fractures and particularly given his activity level. No indications of other endocrinopathies at this visit. He has been off thyroid also for several weeks owin g to a pharmacy supply issue. He did have several spider bites but did not increase steroids. Tx with Abx at local ER> I answered pt and mother's questions to their satisfaction. Plan 1. Adrenals. Pt will continue 20mg hydrocortisone daily with ER steroids up to 40mg extra f or illness, injury, fever, vomiting from any cause. 2. Testosterone level pending. No change in dose is anticipated. Pt will continue daily d oses. 3. Growth hormone. IGF-1 pending. No change in dose is anticipated. 4. Thyroid. TSH, FT4 pending. No change in dose is anticipated. 5. DI.Appears controlled. BMP pending. No change in DDAVp anticiapted. 6. MRI at next visit in 6 mths with labs TOMER MONTELONGO DNP, BECCA Certified Ophthalmic Technologist [facility] [address] [facility] [place] [address] documented in this encounter Plan of Treatment +--------+---------+ + + + | Date | Type | Specialty | Care Team | Description | +--------+---------+ + + + | 08/15/ | Office | Cardiology | Zuleika Hernandez, | | | 2019 | Visit | | [address] | | | | | | [address] | | | | | | [place], [place] | | | | | | [address] | | | | | | [phone] | | | | | | | | +--------+---------+ + + + documented as of this encounter Procedures + +--------+ + + + | Procedure Name | Priori | Date/Time | Associated Diagnosis | Comments | | | ty | | | | + +--------+ + + + | BASIC METABOLIC SET | Routin | 01/04/2013 | Pituitary adenoma | Results for this | | (NA, K, CL, TCO2, | e | 2:30 PM | (HCC) | procedure are in the | | BUN, CR, GLU, CA) | | PDT | | results section. | + +--------+ + + + | INSULIN GROWTH | Routin | 01/04/2013 | Pituitary adenoma | Results for this | | FACTOR-1, SERUM | e | 2:30 PM | (HCC) | procedure are in the | | | | PDT | | results section. | + +--------+ + + + | FREE T4 | Routin | 01/04/2013 | Pituitary adenoma | Results for this | | | e | 2:30 PM | (HCC) | procedure are in the | | | | PDT | | results section. | + +--------+ + + + | PROLACTIN | Routin | 01/04/2013 | Pituitary adenoma | Results for this | | | e | 2:30 PM | (HCC) | procedure are in the | | | | PDT | | results section. | + +--------+ + + + | TSH | Routin | 01/04/2013 | Pituitary adenoma | Results for this | | | e | 2:30 PM | (HCC) | procedure are in the | | | | PDT | | results section. | + +--------+ + + + | TESTOSTERONE, SERUM | Routin | 01/04/2013 | Pituitary adenoma | Results for this | | | e | 2:30 PM | (HCC) | procedure are in the | | | | PDT | | results section. | + +--------+ + + + documented in this encounter Results TESTOSTERONE, SERUM (01/04/2013 2:30 PM PDT) + +-------+ + + + | Component | Value | Ref Range | Performed | Pathologist | | | | | At | Signature | + +-------+ + + + | TESTOSTERON | 376 | 175 - 781 ng/dL | [facility] | | | E, SERUM | | | [facility] | | | | | | [place] | | + +-------+ + + + + + | Specimen | + + | Blood - Blood | + + + + + + + | Performing | Address | City/State/Zipcode | Phone Number | | Organization | | | | + + + + + | [facility] | [address] | [place] [address] | | | [place] | | | | + + + + + PROLACTIN, SERUM (01/04/2013 2:30 PM PDT) + +-------+ + + + | Component | Value | Ref Range | Performed | Pathologist | | | | | At | Signature | + +-------+ + + + | PROLACTIN | 5 | 3 - 13 ng/mL | [facility] | | | | | | [facility] | | | | | | [place] | | + +-------+ + + + + + | Specimen | + + | Blood - Blood | + + + + + + + | Performing | Address | City/State/Zipcode | Phone Number | | Organization | | | | + + + + + | [facility] | [address] | [place] [address] | | | [facility] | | | | + + + + + TSH (01/04/2013 2:30 PM PDT) + + + + + + | Component | Value | Ref Range | Performed | Pathologist | | | | | At | Signature | + + + + + + | TSH | 0.20 (L)Comment: Low TSH | 0.34 - 5.60 | [facility] | | | | (suggests | mcIU/mL | [facility] - | | | | Hyperthyroid).Normal TSH | | [place] | | | | value in : | | | | | | 0.5-2.5. uIU/ml | | | | + + + + + + + + | Specimen | + + | Blood - Blood | + + + + + + + | Performing | Address | City/State/Zipcode | Phone Number | | Organization | | | | + + + + + | [facility] | [address] | [place] [address] | | | [facility] | | | | + + + + + INSULIN GROWTH FACTOR-1, SERUM (01/04/2013 2:30 PM PDT) + +--------+ + + + | Component | Value | Ref Range | Performed | Pathologist | | | | | At | Signature | + +--------+ + + + | IGF-1 | 69 (L) | 116 - 353 ng/mL | [facility] | | | | | | [facility] | | | | | | [place] | | + +--------+ + + + + + | Specimen | + + | Blood - Blood | + + + + + + + | Performing | Address | City/State/Zipcode | Phone Number | | Organization | | | | + + + + + | [facility] | [address] | [place] [address] | | | [place] | | | | + + + + + FREE T4, SERUM (01/04/2013 2:30 PM PDT) + +-------+ + + + | Component | Value | Ref Range | Performed | Pathologist | | | | | At | Signature | + +-------+ + + + | FREE T4, | 1.2 | 0.6 - 1.2 ng/dL | [facility] | | | SERUM | | | [facility] | | | | | | [place] | | + +-------+ + + + + + | Specimen | + + | Blood - Blood | + + + + + + + | Performing | Address | City/State/Zipcode | Phone Number | | Organization | | | | + + + + + | [facility] | [address] | [place] [address] | | | [place] | | | | + + + + + BASIC METABOLIC SET (NA, K, CL, TCO2, BUN, CR, GLU, CA) (01/04/2013 2:30 PM PDT) + +---------+ + + + | Component | Value | Ref Range | Performed | Pathologist | | | | | At | Signature | + +---------+ + + + | GLUCOSE, | 99 | 60 - 99 mg/dL | [facility] | | | PLASMA | | | LABORATORY | | | (LAB) | | | SERVICES, | | | | | | CORE | | + +---------+ + + + | BUN, PLASMA | 13 | 6 - 20 mg/dL | [facility] | | | (LAB) | | | LABORATORY | | | | | | SERVICES, | | | | | | CORE | | + +---------+ + + + | CREATININE | 0.88 | 0.70 - 1.30 | [facility] | | | PLASMA | | mg/dL | LABORATORY | | | (LAB) | | | SERVICES, | | | | | | CORE | | + +---------+ + + + | EGFR | >60 | >60 mL/min | [facility] | | | - | | | LABORATORY | | | [place] | | | SERVICES, | | | | | | CORE | | + +---------+ + + + | EGFR NON | >60 | >60 mL/min | [facility] | | | -JAS[facility]ER | | | LABORATORY | | | RICAN | | | SERVICES, | | | | | | CORE | | + +---------+ + + + | SODIUM, | 140 | 136 - 145 | [facility] | | | PLASMA | | mmol/L | LABORATORY | | | (LAB) | | | SERVICES, | | | | | | CORE | | + +---------+ + + + | POTASSIUM, | 4.2 | 3.4 - 5.0 | [facility] | | | PLASMA | | mmol/L | LABORATORY | | | (LAB) | | | SERVICES, | | | | | | CORE | | + +---------+ + + + | CHLORIDE, | 106 | 97 - 108 mmol/L | [facility] | | | PLASMA | | | LABORATORY | | | (LAB) | | | SERVICES, | | | | | | CORE | | + +---------+ + + + | TOTAL CO2, | 22 | 21 - 32 mmol/L | [facility] | | | PLASMA | | | LABORATORY | | | (LAB) | | | SERVICES, | | | | | | CORE | | + +---------+ + + + | CALCIUM, | 8.7 | 8.6 - 10.2 | [facility] | | | PLASMA | | mg/dL | LABORATORY | | | (LAB) | | | SERVICES, | | | | | | CORE | | + +---------+ + + + | ANION GAP | 12 | mmol/L | [facility] | | | | | | LABORATORY | | | | | | SERVICES, | | | | | | CORE | | + +---------+ + + + | POTASSIUM | No Hemo | | [facility] | | | CMNT | | | LABORATORY | | | | | | SERVICES, | | | | | | CORE | | + +---------+ + + + + + | Specimen | + + | Blood - Blood | + + + + + | Narrative | Performed At | + + + | GFR is estimated using the MDRD equation recommended by the | [facility] | | National Kidney Disease Education Program. Estimated GFR | LABORATORY | | Interpretive Information: <60 mL/min/1.73 sq m | [facility], CORE | | Chronic Kidney Disease <15 mL/min/1.73 sq m | | | Kidney Failure Estimated GFR greater that 60 mL/min/1.73 sq m is of | | | limited clinical value. The MDRD equation is not valid in the | | | following situations: - Patients under 18 years of age - Severe | | | malnutrition or obesity - Vegetarian diet - Rapidly changing kidney | | | function | | + + + + + + + + | Performing | Address | City/State/Zipcode | Phone Number | | Organization | | | | + + + + + | [facility] | [address] | [place] [address] | | | [place] | [address] | | | + + + + + documented in this encounter Visit Diagnoses + + | Diagnosis | + + | Pituitary adenoma (HCC) - Primary Benign neoplasm of pituitary gland and | | craniopharyngeal duct (pouch) | + + documented in this encounter"
--- OUTSIDE RECORDS SUMMARY | ~2019-07-14 | XMS | Encounter Summary ---
Demographics + + + | Address | [address] | | | [place] [address] | + + + | Home Phone | | + + + | Preferred Language | Unknown | + + + | Marital Status | Single | + + + | Yarsanism Affiliation | NON | + + + | Race | or | + + + | Ethnic Group | Not or | + + + Author + + + | Author | [place] [facility] | + + + | Organization | [facility] | + + + | Address | Unknown | + + + | Phone | Unavailable | + + + Support + + +---------+ + | Name | Relationship | Address | Phone | + + +---------+ + | Alexandria Dixon | ECON | Unknown | | + + +---------+ + Care Team Providers + +------+ + | Care Reiki Practitioner Name | Role | Phone | + +------+ + | Priscilla Ramírez PA-C | PCP | | + +------+ + Encounter Details +--------+ + + + + | Date | Type | Department | Care Team | Description | +--------+ + + + + | 10/07/ | Ancillary | Registration [address] | [place], | | | 2007 | Reg[address]ratio | [address] | [address] | | | | n | [address] Mailcode: [id number] | [address] | | | | | [place], [place] | [place] [address] | | | | | [address] | | | | | | [phone] | | | +--------+ + + + + Social History + +-------+ +--------+------+ | Tobacco Use | Types | Packs/Day | Years | Date | | | | | Used | | + +-------+ +--------+------+ | Never Assessed | | | | | + +-------+ [...] + + documented as of this encounter Plan of Treatment +--------+---------+ + + + | Date | Type | Specialty | Care Team | Description | +--------+---------+ + + + | 08/15/ | Office | Cardiology | Zuleika Hernandez, | | | 2019 | Visit | | [address] | | | | | | [address] | | | | | | [place], [place] | | | | | | [address] | | | | | | [phone] | | | | | | | | +--------+---------+ + + + documented as of this encounter Visit Diagnoses Not on filedocumented in this encounter"
--- OUTSIDE RECORDS SUMMARY | ~2019-07-14 | XMS | Encounter Summary ---
Demographics + + + | Address | [address] | | | [place] [address] | + + + | Home Phone | | + + + | Preferred Language | Unknown | + + + | Marital Status | Single | + + + | Worship Affiliation | NON | + + + | Race | or | + + + | Ethnic Group | Not or | + + + Author + + + | Author | [place] [facility] | + + + | Organization | [facility] | + + + | Address | Unknown | + + + | Phone | Unavailable | + + + Support + + +---------+ + | Name | Relationship | Address | Phone | + + +---------+ + | Alexandria Dixon | ECON | Unknown | | + + +---------+ + Care Team Providers + +------+ + | Care Relay Tester Helper Name | Role | Phone | + +------+ + | Priscilla Ramírez PA-C | PCP | | + +------+ + Encounter Details +--------+ + + + + | Date | Type | Department | Care Team | Description | +--------+ + + + + | 12/10/ | Telephone | Diagnostic Imaging | Radiology | | | 2017 | | Services at [facility] | | | | | | [address] | | | | | | [address] Mailcode: | | | | | | [address] [facility] | | | | | | [place], [place] | | | | | | [address] | | | | | | [phone] | | | +--------+ + + + [...] | | 2019 | Visit | | [address] | | | | | | [address] | | | | | | [place], [place] | | | | | | [address] | | | | | | [phone] | | | | | | | | +--------+---------+ + + + documented as of this encounter Visit Diagnoses Not on filedocumented in this encounter"
--- OUTSIDE RECORDS SUMMARY | ~2019-07-14 | XMS | Encounter Summary ---
Demographics + + + | Address | [address] | | | [place] [address] | + + + | Home Phone | | + + + | Preferred Language | Unknown | + + + | Marital Status | Single | + + + | Mandaen Affiliation | NON | + + + | Race | or | + + + | Ethnic Group | Not or | + + + Author + + + | Author | [place] [employer] [facility] | + + + | Organization | [facility] | + + + | Address | Unknown | + + + | Phone | Unavailable | + + + Support + + +---------+ + | Name | Relationship | Address | Phone | + + +---------+ + | Alexandria Dixon | ECON | Unknown | | + + +---------+ + Care Team Providers + +------+ + | Care Post Splitter Name | Role | Phone | + +------+ + | No Pcp Per Patient | PCP | Unavailable | + +------+ + Reason for Visit + + + | Reason | Comments | + + + | Refill Request | | + + + Encounter Details +--------+--------+ + + + | Date | Type | Department | Care Team | Description | +--------+--------+ + + + | 04/24/ | Refill | Neurosurgery at | Donnie, | Refill Request | | 2008 | | [facility] [address] | [place], | | | | | [place] Mailcode: [id number] | DNP,[place] [address] | | | | | [facility] | Nura [address] [place], | | | | | and [facility], | [place] [address] | | | | | Building [address] | [phone] | | | | | [place], [place] | | | | | | [address] | | | | | | [phone] | | | +--------+--------+ + + + Social History + +-------+ [...] | 2019 | Visit | | [address] | | | | | | [address] | | | | | | [place], [place] | | | | | | [address] | | | | | | [phone] | | | | | | | | +--------+---------+ + + + documented as of this encounter Visit Diagnoses Not on filedocumented in this encounter"
--- OUTSIDE RECORDS SUMMARY | ~2019-07-14 | XMS | Encounter Summary ---
Demographics + + + | Address | [address] | | | [place] [address] | + + + | Home Phone | | + + + | Preferred Language | Unknown | + + + | Marital Status | Single | + + + | Baptism Affiliation | Unknown | + + + | Race | Unknown | + + + | Ethnic Group | Unknown | + + + Author + + + | Author | [facility] | | | and [place] | + + + | Organization | [facility] | | | and [place] | + + + | Address | Unknown | + + + | Phone | Unavailable | + + + Support + + +---------+ + | Name | Relationship | Address | Phone | + + +---------+ + | Kiara Dixon | ECON | Unknown | | + + +---------+ + | Radha Schmitt | ECON | Unknown | | + + +---------+ + Care Team Providers + +------+ + | Care Swing Tender Name | Role | Phone | + +------+ + | Jinny Bergeron MD | PCP | | + +------+ + Reason for Referral Evaluate & Treat (Routine) +--------+ + + + + + | Status | Reason | Specialty | Diagnoses / | Referred By | Referred To | | | | | Procedures | Contact | Contact | +--------+ + + + + + | Closed | Specialty | Gastroenterol | Diagnoses | John, | John, | | | Services | ogy | Abnormal | MD Jorge | MD Jorge | | | Required | | weight loss | [address] | [address] | | | | | Sleep | BLVD | [place], | | | | | apnea, | [place], [place] | [place] [address] | | | | | unspecified | [address] | Phone: | | | | | Obesity, | Phone: | [phone] | | | | | unspecified | [phone] | Fax: | | | | | Procedures | Fax: | [phone] | | | | | [place] | [phone] | | | | | | ESOPHAGOGAST | | | | | | | RODUODENOSCO | | | | | | | PY TRANSORAL | | | | | | | DIAGNOSTIC | | | | | | | [place] EDG | | | | | | | TRANSORAL | | | | | | | BIOPSY | | | | | | | SINGLE/MULTI | | | | | | | PLE [place] | | | | | | | ANESTH,UGI | | | | | | | ENDOSCOPY | | | +--------+ + + + + + Reason for Visit + + + | Reason | Comments | + + + | Appointment | | + + + Encounter Details +--------+ + + + + | Date | Type | Department | Care Team | Description | +--------+ + + + + | 07/23/ | Telephone | [facility] | Jorge Lopez MD | Appointment | | 2014 | | GASTROENTEROLOGY | [address] [facility] | | | | | [address] [facility] | [place], [place] | | | | | [address] [place], [place] | [address] | | | | | [address] | [phone] | | | | | [phone] | | | +--------+ + + + + Social History + +-------+ +--------+------+ | Tobacco Use | Types | Packs/Day | Years | Date | | | | | Used | | + +-------+ +--------+------+ | Never Assessed | | | | | + +-------+ +--------+------+ + + + | Sex Assigned at [...] Description | +--------+---------+ + + + | 11/21/ | Office | Sleep Medicine | Sumanth Champion [place] | | | 2020 | Visit | | [address] | | | | | | [place] | | | | | | [id number] | | | | | | | | +--------+---------+ + + + + + +--------+ + + | Name | Type | Priori | Associated Diagnoses | Order Schedule | | | | ty | | | + + +--------+ + + | Ambulatory referral | Outpatient | Routin | Abnormal weight | Expected: | | to Gastroenterology | Referral | e | loss Sleep Apnea, | 07/25/2015, Expires: | | (JOHN) | | | Unspecified | 07/22/2016 | | | | | Obesity, unspecified | | + + +--------+ + + documented as of this encounter Visit Diagnoses + + | Diagnosis | + + | Abnormal weight loss - Primary Loss of weight | + + | Sleep apnea, unspecified | + + | Obesity, unspecified | + + documented in this encounter"
--- OUTSIDE RECORDS SUMMARY | ~2019-07-14 | XMS | Encounter Summary ---
Demographics + + + | Address | [address] | | | [place] [address] | + + + | Home Phone | | + + + | Preferred Language | Unknown | + + + | Marital Status | Single | + + + | Taoism Affiliation | Unknown | + + + | Race | Unknown | + + + | Ethnic Group | Unknown | + + + Author + + + | Author | [facility] | | | and [place] | + + + | Organization | [facility] | | | and [place] | [...] Team Providers + +------+ + | Care Examining Officer Name | Role | Phone | + +------+ + | Jinny Bergeron MD | PCP | | + +------+ + Reason for Visit Auth/Cert +--------+--------+ + + + + | Status | Reason | Specialty | Diagnoses / | Referred By | Referred To | | | | | Procedures | Contact | Contact | +--------+--------+ + + + + | | | | Diagnoses | | | | | | | Acquired | | | | | | | deflected | | | | | | | nasal septum | | | | | | | | | | | | | | Hypertrophy | | | | | | | of nasal | | | | | | | turbinates | | | | | | | Obstructive | | | | | | | sleep apnea | | | | | | | Hypertrophy | | | | | | | of tonsils | | | | | | | Acquired | | | | | | | deflected | | | | | | | nasal septum | | | | | | | | | | | | | | [J34.2]Hyper | | | | | | | trophy of | | | | | | | nasal | | | | | | | turbinates | | | | | | | [J34.3]Obstr | | | | | | | uctive sleep | | | | | | | apnea | | | | | | | [G47.33]Hype | | | | | | | rtrophy of | | | | | | | tonsils | | | | | | | [J35.1] | | | | | | | | | | | | | | Procedures | | | | | | | [place] REPAIR OF | | | | | | | NASAL | | | | | | | SEPTUM W[place] | | | | | | | EXCISION | | | | | | | TURBINATE,DAMIAN | | | | | | | BMUCOUS | | | | | | | SEPTOPLASTY | | | | | | | W OR W/O | | | | | | | TURBINATES | | | +--------+--------+ + + + + Encounter Details +--------+---------+ + + + | Date | Type | Department | Care Team | Description | +--------+---------+ + + + | 04/08/ | Surgery | [facility] | Mckay De Leon MD | Septoplasty, | | 2016 | | MED CTR OR INTRA OP | [address] [place] | Inferior | | | | [address] | [address] [place], | Turbinoplasty | | | | [place], [place] | [place] [address] | | | | | [address] | [phone] | | | | | [phone] | | | +--------+---------+ + + + Social History + + + +--------+ + | Tobacco Use | Types | Packs/Day | Years | Date | | | | | Used | | + + + +--------+ + | Former Smoker | Cigarettes | 0.1 | 2 | Quit: 08/10/2004 | + + + +--------+ + + +------+---+---+ | Smokeless Tobacco: | Chew | | | | Current User | | | | + +------+---+---+ + + +---------+ + | Alcohol Use | Drinks/Week | oz/Week | Comments | + + +---------+ + | No | | | | + + +---------+ + + + [...] + + + | Blood Pressure | 106/63 | 04/08/2016 11:45 AM | | | | | PDT | | + + + + + | Pulse | 79 | 04/08/2016 11:45 AM | | | | | PDT | | + + + + + | Temperature | 36.3 C (97.3 F) | 04/08/2016 10:06 AM | | | | | PDT | | + + + + + | Respiratory Rate | 16 | 04/08/2016 11:45 AM | | | | | PDT | | + + + + + | Oxygen Saturation | 97% | 04/08/2016 11:45 AM | | | | | PDT | | + + + + + | Inhaled Oxygen | - | - | | | Concentration | | | | + + + + + | Weight | 120.2 kg (265 lb) | 04/08/2016 8:00 AM | | | | | PDT | | + + + + + | Height | 172.7 cm (5' 8") | 04/08/2016 8:00 AM | | | | | PDT | | + + + + + | Body Mass Index | 40.29 | 04/08/2016 8:00 AM | | | | | PDT | | + + + + + documented in this encounter Discharge Instructions Instructions Carolina Machado RN - 04/08/2016Formatting of this note might be different f rom the original. Aristides-synephrine to nose as needed for bleeding Nasal Surgery: Turbinate Surgery You re scheduled to have nasal surgery. The type of nasal surgery you re having is call ed turbinate surgery. Read on to learn more about what to expect during this surgery. During surgery, bone or mucous membrane may be removed from enlarged turbinates. What are the turbinates? The turbinates are located on the inside of each side of your nose. They are curved bony ri dges that are lined with mucous membrane. Mucous membrane is thin tissue that also lines the insides of your sinuses and throat. It makes sticky mucus that helps clean the air in the n ose of dust and other small particles. The turbinates and mucous membrane warm and moisten t he air you breathe through your nose. What to expect during turbinate surgery This surgery fixes a blockage caused by enlarged turbinates. The surgeon makes cuts (incisi ons) inside the nose under the lower turbinate. The surgeon may use a laser to do this. He o r she may remove extra bone to make the turbinate smaller. Sometimes the surgeon also remove s excess mucous membrane. Risks and possible complications As with any surgery, nasal surgery has some risks. These include a slight risk of bleeding and infection. Your doctor will discuss any other risks and complications with you. After turbinate surgery After turbinate surgery, you ll be taken to a recovery area or to your hospital room. You r experience may be as follows: You may have packing or a plastic splint inside your nose if you had a septoplasty or si nus surgery along with the turbinate surgery. You may also have bandages (dressings) on the outside of your nose. It s normal to have some mucus and blood drain from your nose. Until packing is remove d, you may have to breathe through your mouth. Expect some throat dryness and irritation. This is normal after general anesthesia or tinsley ving a tube down your throat. Pain medicine will be prescribed as needed. Don t take medicine containing aspirin or ibuprofen. These can increase bleeding. Follow-up You ll need to follow up with your doctor within a week after your surgery. Here is what to expect: Any packing, splint, or dressings will probably be removed. You may feel slight discomfo rt and bleed a little when this is done. After the splint or packing is removed, you ll most likely breathe better than you did before surgery. You may have minor numbness, pain, swelling, and a little stiffness under the tip of the nose. In a few days, the inside of your nose may swell and briefly block your breathing. Or a scab or crust may block breathing for a short time. Leave the scab alone. Your doctor can re move it. Using a saline solution in your nose can help reduce and remove crusts. [id number] [employer]. [address] [place] [address], [place] [address]. All righ ts reserved. This information is not intended as a substitute for professional medical care. Always follow your healthcare professional's instructions. Nasal Surgery: Septoplasty You re scheduled to have nasal surgery. The type of nasal surgery you re having is call ed septoplasty. Read on to learn more about what to expect during this surgery. During surgery, cartilage and bone may be removed to reshape the deviated septum. After mega riky, there is more breathing space. Enough cartilage and bone remain to give the nose suppo rt. What to expect during septoplasty This surgery repairs a blockage inside the nose caused by a deviated septum. With a deviate d septum, there is a problem with the wall that divides the nose into two chambers. A deviat ed septum may block air coming through one or both nostrils. This makes it harder for you to breathe through your nose. During septoplasty, incisions are made inside the nose. Then car tilage and sometimes bone from the septum are trimmed, reshaped, moved, or removed. Risks and possible complications As with any surgery, nasal surgery has some risks. These include a slight risk of bleeding and infection. Your doctor will discuss any other risks and complications with you. After septoplasty After septoplasty, you ll be taken to a recovery area or to your hospital room. Your expe rience may be as follows: You may have packing material inside your nose. This reduces bleeding and promotes heali ng. You may also have dressings (bandages) on the outside of your nose. It s normal to have some mucus and blood drain from your nose. Until packing is remove d, you may have to breathe through your mouth. You may have some swelling or bruising around the eyelids if a rhinoplasty was also done . Expect some throat dryness and irritation. Pain medication will be prescribed as needed. Don t take medication containing aspirin or ibuprofen. These can cause increased bleeding. Follow-up care You ll need to follow up with your doctor within a week after your surgery. Here is what to expect: Any packing, splint, or dressings will probably be removed. You may feel slight discomfo rt and bleed a little when this is done. After the splint or packing is removed, you ll most likely breathe better than you did before surgery. You may have minor numbness, pain, swelling, and a little stiffness under the tip of the nose. In a few days, the inside of your nose may swell and briefly block your breathing. Or, a scab or crust may block breathing for a short time. Leave the scab alone. Your doctor can r emove it. Using saline (irrrigation or aerosol) regularly after surgery helps to reduce the amount of crusting at each visit. [id number] [employer] [place] [address]. All righ ts reserved. This information is not intended as a substitute for professional medical care. Always follow your healthcare professional's instructions. documented in this encounter Medications at Time of Discharge + + + +---------+ + + | Medication | Sig | Dispensed | Refills | Start | End Date | | | | | | Date | | + + + +---------+ + + | atorvaSTATin | Take 40 mg by mouth | | 0 | 04/22/20 | | | (LIPITOR) 40 mg | Daily. | | | 12 | | | tablet | | | | | | + + + +---------+ + + | Cholecalciferol | Take 7,000 Int'l | | 0 | | | | (VITAMIN D-3 PO) | Units by mouth | | | | | | | Daily. | | | | | + + + +---------+ + + | desmopressin | Take 0.2 mg by mouth | | 0 | | | | (DDAVP) 0.2 MG | Daily. Take 1 1/2 | | | | | | tablet | tablet int the | | | | | | | morning and 2 | | | | | | | tablets int the | | | | | | | evening | | | | | + + + +---------+ + + | | Take 1 tablet by | | 0 | | | | HYDROcodone-acetamin | mouth every 4 hours | | | | | | ophen (NORCO) 10-325 | as needed. | | | | | | mg per tablet | | | | | | + + + +---------+ + + | hydrocortisone | Take 25 mg by mouth | | 0 | | | | (CORTEF) 20 MG | Daily. | | | | | | tablet | | | | | | + + + +---------+ + + | levothyroxine | Take 125 mcg by | | 0 | | | | (SYNTHROID, | mouth every morning | | | | | | LEVOTHROID) 175 MCG | (before breakfast). | | | | | | tablet | | | | | | + + + +---------+ + + | metFORMIN | Take 500 mg by mouth | | 0 | | | | (GLUCOPHAGE) 500 mg | 2 times daily (with | | | | | | tablet | breakfast & | | | | | | | dinner). | | | | | + + + +---------+ + + | metoprolol | Take 25 mg by mouth | | 0 | 04/22/20 | | | tartrate (LOPRESSOR) | Daily. | | | 12 | | | 25 mg tablet | | | | | | + + + +---------+ + + | promethazine | Take 25 mg by mouth | | 0 | | | | (PHENERGAN) 25 mg | every 6 hours as | | | | | | tablet | needed. | | | | | + + + +---------+ + + | Somatropin, | Inject 0.8 mg under | | 0 | | | | Non-Refrigerated, 5 | the skin Daily. | | | | | | MG SOLR | | | | | | + + + +---------+ + + | | Take 1-2 tablets by | 25 | 0 | 04/08/20 | | | HYDROcodone-acetamin | mouth every 4 hours | tablet | | 16 | 6 | | ophen (NORCO) 5-325 | as needed for Pain. | | | | | | mg per tablet | | | | | | + + + +---------+ + + | lisinopril | Take 40 mg by mouth | | 0 | 04/22/20 | | | (PRINIVIL,ZESTRIL) | Daily. | | | 12 | 8 | | 2.5 MG tablet | | | | | | + + + +---------+ + + | phentermine | Take 37.5 mg by | | 0 | | | | (ADIPEX-P) 37.5 MG | mouth every morning | | | | 8 | | tablet | (before breakfast). | | | | | + + + +---------+ + + | prasugrel | Take 10 mg by mouth | | 0 | 04/22/20 | | | (EFFIENT) 10 mg TABS | Daily. | | | 12 | 8 | + + + +---------+ + + | testosterone | Place 50 mg of | | 0 | | | | (ANDROGEL) 50 mg/5 g | testosterone onto | | | | 8 | | (1%) gel | the skin Daily. | | | | | + + + +---------+ + + documented as of this encounter [...] [place] | | | | | | [id number] | | | | | | | | +--------+---------+ + + + documented as of this encounter Procedures + +--------+ + + + | Procedure Name | Priori | Date/Time | Associated Diagnosis | Comments | | | ty | | | | + +--------+ + + + | SEPTOPLASTY W/ OR | | 04/08/2016 | Acquired deflected | | | W/O TURBINATES | | 9:05 AM | nasal septum | | | | | PDT | Hypertrophy of nasal | | | | | | turbinates | | | | | | Obstructive sleep | | | | | | apnea Hypertrophy | | | | | | of tonsils | | + +--------+ + + + | POC GLUCOSE | Routin | 04/08/2016 | | Results for this | | | e | 9:05 AM | | procedure are in the | | | | PDT | | results section. | + +--------+ + + + documented in this encounter Results POC Glucose (04/08/2016 9:05 AM PDT) + +-------+ + + + | Component | Value | Ref Range | Performed | Pathologist | | | | | At | Signature | + +-------+ + + + | Glucose, | 110 | 70 - 150 mg/dL | [facility] | [facility] | [facility] | [facility] - | | | | | | [facility]ATORY | | + +-------+ + + + + + | Specimen | + + | Blood | + + + + + + + | Performing | Address | City/State/Zipcode | Phone Number | | Organization | | | | + + + + + | [facility] | [address] | [place] | [phone] | | [facility] | | [address] | | | - LABORATORY | | | | + + + + + documented in this encounter Visit Diagnoses + + | Diagnosis | + + | Acquired deflected nasal septum Deviated nasal septum | + + | Hypertrophy of nasal turbinates | + + | Obstructive sleep apnea Obstructive sleep apnea (adult) (pediatric) | + + | Hypertrophy of tonsils Hypertrophy of tonsils alone | + + documented in this encounter Administered Medications + +--------+ + +------+ + | Medication Order | MAR | Action | Dose | Rate | Site | | | Action | Date | | | | + +--------+ + +------+ + | bacitracin topical ointment | Given | 04/08/20 | 1 | | Surgical | | PRN, Starting 04/08/16 at | | 16 9:44 | Applicat | | Site | | 0944, Intra-op | | AM PDT | ion | | | + +--------+ + +------+ + +---+---+ | | | +---+---+ + +-------+ +-------+---+ + | cocaine 4% topical solution 4 | Given | 04/08/20 | 4 mLs | | Surgical | | mL 4 mL, Topical, Prior to | | 16 9:30 | | | Site | | Incision, Starting e 04/08/16 at | | AM PDT | | | | | 0846, For 1 dose, For topical | | | | | | | use on pledgets intranasally, | | | | | | | Pre-op | | | | | | + +-------+ +-------+---+ + +---+---+ | | | +---+---+ + +-------+ +--------+---+---+ | fentaNYL (PF) injection 25-50 | Given | 04/08/20 | 25 mcg | | | | mcg 25-50 mcg, Intravenous, | | 16 10:43 | | | | | EVERY 5 MIN PRN, Pain, Starting | | AM PDT | | | | | e 04/08/16 at 0958, Maximum | | | | | | | total dose 250 mcg. PACU IV | | | | | | | Narcotic Priority: Only use | | | | | | | fentanyl for immediate post-op | | | | | | | pain (one dose) or breakthrough | | | | | | | pain when any other IV narcotics | | | | | | | ordered have been ineffective (if | | | | | | | ordered). If both morphine and | | | | | | | hydromorphone are ordered, use | | | | | | | morphine first, and use | | | | | | | hydromporphone if morphine | | | | | | | ineffective., Recovery/Phase I | | | | | | + +-------+ +--------+---+---+ +-------+ +--------+---+---+ | Given | 04/08/20 | 25 mcg | | | | | 16 10:33 | | | | | | AM PDT | | | | +-------+ +--------+---+---+ +---+---+ | | | +---+---+ + +-------+ +---------+---+---+ | HYDROcodone-acetaminophen | Given | 04/08/20 | 2 | | | | (NORCO) 5-325 mg per tablet 1-2 | | 16 11:42 | tablets | | | | tablet 1-2 tablet, Oral, EVERY 4 | | AM PDT | | | | | HOURS PRN, Pain, Starting Tue | | | | | | | 04/08/16 at 1124, If ineffective | | | | | | | use Sweeny 10/325 if ordered. If | | | | | | | not tolerated, use Percocet then | | | | | | | Oxycodone if ordered., | | | | | | | Post-op/Phase II | | | | | | + +-------+ +---------+---+---+ +---+---+ | | | +---+---+ + +---------+ +--------+-------+---+ | lactated ringers (LR) infusion | New Bag | 04/08/20 | 1,000 | 100 | | | at 10-100 mL/hr, Intravenous, | | 16 10:23 | mLs | mL/hr | | | CONTINUOUS, Starting 04/08/16 | | AM PDT | | | | | at 0915, TKO., Pre-op | | | | | | + +---------+ +--------+-------+---+ +---------+ +---+---+---+ | New Bag | 04/08/20 | | | | | | 16 9:17 | | | | | | AM PDT | | | | +---------+ +---+---+---+ +---+---+ | | | +---+---+ + +-------+ +-------+---+ + | lidocaine 1%-EPINEPHrine | Given | 04/08/20 | 4 mLs | | Surgical | | 1:100,000 injection PRN, | | 16 9:32 | | | Site | | Starting 04/08/16 at 0932, | | AM PDT | | | | | Intra-op | | | | | | + +-------+ +-------+---+ + +---+---+ | | | +---+---+ documented in this encounter
--- OUTSIDE RECORDS SUMMARY | ~2019-07-14 | XMS | Encounter Summary ---
Demographics + + + | Address | [address] | | | [place] [address] | + + + | Home Phone | | + + + | Preferred Language | Unknown | + + + | Marital Status | Single | + + + | Mosque Affiliation | Unknown | + + + | Race | Unknown | + + + | Ethnic Group | Unknown | + + + Author + + + | Author | [facility] | | | and [place] | + + + | Organization | [facility] | | | and [place] [...] Team Providers + +------+ + | Care Benefit Director Name | Role | Phone | + +------+ + PCP | Unavailable | + +------+ + Encounter Details +--------+ + + + + | Date | Type | Department | Care Team | Description | +--------+ + + + + | 12/10/ | Hospital | [facility] | Lazaro Deleon | | | 2006 | Encounter | MED CTR SLEEP | MD [address] | | | | | CENTER [address] | [address] [place] | | | | | [place], [place] | [place] [address] | | | | | [address] | [phone] | | | | | [phone] | | | +--------+ + + + [...] | Sumanth Champion PA | | | 2019 | Visit | | [address] | | | | | | [place] | | | | | | [address] | | | | | | | | +--------+---------+ + + + documented as of this encounter Visit Diagnoses Not on filedocumented in this encounter"
--- OUTSIDE RECORDS SUMMARY | ~2019-07-14 | XMS | Encounter Summary ---
Demographics + + + | Address | [address] | | | [place] [address] | + + + | Home Phone | | + + + | Preferred Language | Unknown | + + + | Marital Status | Single | + + + | Baptist Affiliation | NON | + + + | Race | or | + + + | Ethnic Group | Not or | + + + Author + + + | Author | [facility] | + + + | Organization | [facility] | + + + | Address | Unknown | + + + | Phone | Unavailable | + + + Support + + +---------+ + | Name | Relationship | Address | Phone | + + +---------+ + | Alexandria Dixon | ECON | Unknown | | + + +---------+ + Care Team Providers + +------+ + | Care Superannuation Clerk Name | Role | Phone | + +------+ + | Jhonny Rodriguez DO | PCP | | + +------+ + Encounter Details +--------+ + + + + | Date | Type | Department | Care Team | Description | +--------+ + + + + | 10/15/ | MyChart | Neurosurgery at | Jaclyn Crawford, | RE: Cata | | 2011 | Encounter | [facility] [address] | [address] | | | | | [place] Mailcode: [id number] | [address] | | | | | [facility] | [place], [place] | | | | | and Healing, | [address] | | | | | [place] [address] | [phone] | | | | | [place], [place] | | | | | | [address] | | | | | | [phone] | | | +--------+ + + + [...] [address] | | | | | | [place], [place] | | | | | | [address] | | | | | | [phone] | | | | | | | | +--------+---------+ + + + documented as of this encounter Visit Diagnoses Not on filedocumented in this encounter"
--- OUTSIDE RECORDS SUMMARY | ~2019-07-14 | XMS | Encounter Summary ---
Demographics + + + | Address | [address] | | | [place] [address] | + + + | Home Phone | | + + + | Preferred Language | Unknown | + + + | Marital Status | Single | + + + | Methodist Affiliation | Unknown | + + + | Race | Unknown | + + + | Ethnic Group | Unknown | + + + Author + + + | Author | [facility] | | | and [place] | + + + | Organization | [facility] | | | and [place] [...] Team Providers + +------+ + | Care Furnace Repairer Name | Role | Phone | + [...] | | | | | | | IA REPAIR OF | | | | | | | NASAL | | | | | | | SEPTUM IA | | | | | | | EXCISION | | | | | | | TURBINATE,DAMIAN | | | | | | | BMUCOUS | | | | | | | SEPTOPLASTY | | | | | | | W OR W/O | | | | | | | TURBINATES | | | +--------+--------+ + + + + Encounter Details +--------+ + + + + | Date | Type | Department | Care Team | Description | +--------+ + + + + | 04/08/ | Anesthesia | [facility] | Jovana Schmitt | | | 2016 | Event | [facility] | Antione BOWENS MD [address] | | | | [address] | [address] [place] | | | | | [place], [place] | [place] [address] | | | | | [address] | | | | | | [phone] | | | | | | | Jaron Martniez, | | | | | | [address] | | | | | | [place] | | | | | | [address] | | | | | | | | +--------+ + + + + Anesthesia Record + + + + + | Procedure Name | Responsible | Anesthesia Start | Anesthesia Stop Time | | | Anesthesiologist | Time | | + + + + + | Septoplasty, | Jovana Schmitt | 04/08/16 0917 | 04/08/16 1008 | | Inferior | II, MD | | | | Turbinoplasty (N/A | | | | | Nose) | | | | + + + + + +----+---+ + + | Da | T | Event | Comment | | te | i | | | | | m | | | | | e | | | +----+---+ + + | 08 | 0 | | | | /3 | 9 | | | | 0/ | 0 | | | | 20 | 6 | | | | 16 | | | | +----+---+ + + | | 0 | An Checkout | Pre-use anesthesia machine/equipment checkout. | | | 9 | | | | | 1 | | | | | 3 | | | +----+---+ + + | | 0 | An Start | Reassessment prior to anesthesia induction/procedure. | | | 9 | | | | | 1 | | | | | 7 | | | +----+---+ + + | | 0 | AN | Per surgeon request | | | 9 | Antibiotic | | | | 1 | declined | | | | 8 | | | +----+---+ + + | | 0 | An Start | | | | 9 | Data | | | | 1 | | | | | 9 | | | +----+---+ + + | | 0 | Preoxygenat | | | | 9 | ed | | | | 2 | | | | | 0 | | | +----+---+ + + | | 0 | An | | | | 9 | Induction | | | | 2 | | | | | 1 | | | +----+---+ + + | | 0 | An | | | | 9 | Intubation | | | | 2 | | | | | 2 | | | +----+---+ + + | | 0 | AN Bite | | | | 9 | Block | | | | 2 | | | | | 3 | | | +----+---+ + + | | 0 | [place] | | | | 9 | 43-degrees | | | | 2 | | | | | 9 | | | +----+---+ + + | | 0 | First | | | | 9 | Inc/Proc St | | | | 3 | | | | | 3 | | | +----+---+ + + | | 1 | [place] off | | | | 0 | | | | | 0 | | | | | 5 | | | +----+---+ + + | | 1 | AN No | TOF 4/4 with sustained tetanus. | | | 0 | Residual | | | | 0 | NMB | | | | 5 | | | +----+---+ + + | | 1 | Extubated | | | | 0 | Awake | | | | 0 | | | | | 5 | | | +----+---+ + + | | 1 | An Stop | Patient handed off to recovery nurse. | | | 0 | | | | | 8 | | | +----+---+ + + +------+ | Meds | +------+ + +---------+ | Name | Total | + +---------+ | Phenylephrine 100mcg/mL SYRINGE | 300 mcg | + +---------+ | propofol (DIPRIVAN) injection | 440 mg | | (bolus) (20 mL) | | + +---------+ | lidocaine 1% | 50 mg | + +---------+ | ondansetron | 4 mg | + +---------+ | hydrocortisone | 100 mg | + +---------+ | lactated ringers (LR) infusion | 800 mL | + +---------+ + + | Name | + + | N2O Flow Rate (L/Min) | + + | O2 Flow Rate (L/Min) | + + | Insp O2 | + + | Exp SEV | + + | Exp ROBERTO | + + | Air Flow Rate (L/Min) | + + + + | No blood administrations on file. | + + +--------+ + + + | Type | Details | Placement | Removal | +--------+ + + + | [READ | 07/25/15; 1218; 11/01/18 | 07/25/15 1218 by | 11/01/181642 by | | ONLY] | (Removed/Completed by utility); | Jovana Espinoza MD | User Epic | | | 1643 (Removed/Completed by | | | | Periph | utility) | | | | eral | | | | | IV - | | | | | Single | | | | | Lumen | | | | | | | | | +--------+ + + + | Periph | 04/08/16; 905; Left; Hand; | 04/08/16905 by | 04/08/16 1200 by | | eral | [id number] catheter system; | Lisa Gomez RN | Carolina Machado RN | | IV | 20 gauge; distraction, | | | | | intradermal injection, tolerated | | | | | well; no longer indicated, | | | | | removed per policy/procedure, | | | | | catheter/device intact; short | | | | | term use; 04/08/16; 1200 | | | +--------+ + + + | Airway | Placement Date: 04/08/16; | 04/08/16932 by | 04/08/16 1015 by | | | Placement Time: 932 (created via | Jovana Schmitt | Jovana Schmitt | | | procedure documentation); Mask | MD GOGO | MD GOGO | | | Ventilation: EZ; Attempts: 1; | | | | | Airway Type: laryngeal mask; | | | | | Size: 5; Placement Check: exhaled | | | | | CO2 detection device, bilateral | | | | | chest rise, breath sounds equal | | | | | bilaterally; Removal Date: | | | | | 04/08/16; Removal Time: 1015 | | | +--------+ + + + | Read | 04/08/16; 0947; Bilateral; nose; | 04/08/16 0947 by | 04/08/16 1208 by | | only - | nasopore x4 total; healing | Izaiah Sanchez RN | Carolina Machado RN | | | within expectations; 04/08/16; | | | | Incisi | 1208 | | | | on | | | | +--------+ + + + documented in this encounter Social History + + + +--------+ + [...] | Visit | | [address] | | | | | | [place] | | | | | | [address] | | | | | | | | +--------+---------+ + + + documented as of this encounter Procedures + +--------+ + + + | Procedure Name | Priori | Date/Time | Associated Diagnosis | Comments | | | ty | | | | + +--------+ + + + | ANE AIRWAY NOTE | Routin | 04/08/2016 | | Results for this | | | e | 9:33 AM | | procedure are in the | | | | PDT | | results section. | + +--------+ + + + documented in this encounter Results Anesthesia Airway Note (04/08/2016 9:33 AM PDT) + + + | Narrative | Performed At | + + + | Jovana Schmitt II, MD 04/08/2016 9:33 Anesthesia Airway | | | Placement Preprocedure check: patient identified, oxygen, airway | | | assessed, patient reassessment prior to induction, airway equipment | | | checked and suction Rapid Sequence Induction: no Mask ventilation: | | | easy Attempts: 1 Airway type: laryngeal mask Size: 5 Cuffed: | | | cuffed Tube secured with: adhesive tape Trauma: none Tube placement | | | verification: bilateral chest rise, equal bilateral breath sounds | | | and carbon dioxide detection Performing provider: JOVANA SCHMITT | | | GOGO Electronically Signed by: Jovana Schmitt II, MD | | | ESig date/time: 04/08/2016 9:31 | | | | | + + + documented in this encounter Visit Diagnoses Not on filedocumented in this encounter Administered Medications + +--------+ +--------+------+------+ | Medication Order | MAR | Action | Dose | Rate | Site | | | Action | Date | | | | + +--------+ +--------+------+------+ | hydrocortisone (PF) | Given | 04/08/20 | 100 mg | | | | (solu-CORTEF) injection | | 16 9:17 | | | | | Intravenous, PRN, Starting Tue | | AM PDT | | | | | 04/08/16 at 0917, Anesthesia | | | | | | | Intra-op | | | | | | + +--------+ +--------+------+------+ +---+---+ | | | +---+---+ + +---------+ [...] +---+---+ | | | +---+---+ + +-------+ +-------+---+---+ | lidocaine (PF) 1% injection | Given | 04/08/20 | 50 mg | | | | Intravenous, PRN, Starting Tue | | 16 9:26 | | | | | 04/08/16 at 0926, Anesthesia | | AM PDT | | | | | Intra-op | | | | | | + +-------+ +-------+---+---+ +---+---+ | | | +---+---+ + +-------+ +------+---+---+ | ondansetron (ZOFRAN) injection | Given | 04/08/20 | 4 mg | | | | Intravenous, PRN, Nausea, | | 16 9:17 | | | | | Vomiting, Starting 04/08/16 at | | AM PDT | | | | | 0917, Anesthesia Intra-op | | | | | | + +-------+ +------+---+---+ +---+---+ | | | +---+---+ + +-------+ +---------+---+---+ | phenylephrine (BEULAH-SYNEPHRINE) | Given | 04/08/20 | 150 mcg | | | | 100 mcg/mL injection | | 16 9:50 | | | | | Intravenous, PRN, Starting Tue | | AM PDT | | | | | 04/08/16 at 0944, Anesthesia | | | | | | | Intra-op | | | | | | + +-------+ +---------+---+---+ +-------+ +---------+---+---+ | Given | 04/08/20 | 150 mcg | | | | | 16 9:44 | | | | | | AM PDT | | | | +-------+ +---------+---+---+ +---+---+ | | | +---+---+ + +-------+ +--------+---+---+ | propofol (DIPRIVAN) injection | Given | 04/08/20 | 200 mg | | | | Intravenous, PRN, Starting Tue | | 16 9:26 | | | | | 04/08/16 at 0917, Anesthesia | | AM PDT | | | | | Intra-op | | | | | | + +-------+ +--------+---+---+ +-------+ +--------+---+---+ | Given | 08/30/20 | 100 mg | | | | | 16 9:21 | | | | | | AM PDT | | | | +-------+ +--------+---+---+ | Given | 0830/20 | 40 mg | | | | | 16 9:20 | | | | | | AM PDT | | | | +-------+ +--------+---+---+ +---+---+ | | | +---+---+ documented in this encounter"
--- OUTSIDE RECORDS SUMMARY | ~2019-07-14 | XMS | Encounter Summary ---
Demographics + + + | Address | [address] | | | [place] [address] | + + + | Home Phone | | + + + | Preferred Language | Unknown | + + + | Marital Status | Single | + + + | Confucianist Affiliation | NON | + + + | Race | or | + + + | Ethnic Group | Not or | + + + Author + + + | Author | [facility] [email or web address] [facility] | + + + | Organization | [facility] | + [...] Team Providers + +------+ + | Care Human Resources Mgr Name | Role | Phone | + +------+ + | Jinny Bergeron MD | PCP | | + +------+ + Reason for Visit + + + | Reason | Comments | + + + | Return Patient | | + + + Office Visit - E/M Services (Urgent) +--------+--------+ + + + + | Status | Reason | Specialty | Diagnoses / | Referred By | Referred To | | | | | Procedures | Contact | Contact | +--------+--------+ + + + + | Closed | | Neurological | Diagnoses | Yedinak, | Yedinak, | | | | Surgery | Pituitary | Cathie, | Cathie, | | | | | adenoma | DNP,STAFF [employer] [facility] [facility] OFFICER,[place] | DNP,STAFF [employer] [facility] [facility] OFFICER,[place] | | | | | (HCC) Other | [address] | [address] | | | | | 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 | | | | | hypofunction | [place] [place], [place] | [place], [place] | | | | | Pituitary | [address] | [address] | | | | | dwarfism | Phone: | Phone: | | | | | (HCC) | [phone] | [phone] | | | | | Glucocortico | Fax: | Fax: | | | | | id | [phone] | [phone] | | | | | deficiency | | | | | | | (HCC) | | | | | | | 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 | | | | | | | (HCC) | | | | | | | Procedures | | | | | | | IL | | | | | | | OFFICE/OUTPT | | | | | | | | | | | | | | VISIT,EST,LE | | | | | | | VL I IL | | | | | | | OFFICE/OUTPT | | | | | | | | | | | | | | VISIT,EST,LE | | | | | | | VL II IL | | | | | | | OFFICE/OUTPT | | | | | | | | | | | | | | VISIT,EST,LE | | | | | | | LISHA III IL | | | | | | | OFFICE/OUTPT | | | | | | | | | | | | | | VISIT,EST,LE | | | | | | | VL IV IL | | | | | | | EST PATIENT | | | | | | | LEVEL V | | | +--------+--------+ + + + + Encounter Details +--------+---------+ + + + | Date | Type | Department | Care Team | Description | +--------+---------+ + + + | 11/14/ | Office | Neurosurgery at | Donnie, | Pituitary adenoma | | 2015 | Visit | [facility] [address] | Cathie | ([facility]) (Primary Dx); | | | | Rosalva Mailcode: 8N | DNP,STAFF [employer] OFFICER,[place] [address] | 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[place] for [facility] | Nura Villanuevae [place] [place], | deficiency ([facility]); | | | | and Healing, | [place] [address] | Diabetes insipidus | | | | [address] | [phone] | ([facility]); Hypogonadism | | | | [place], [place] | | male; Hypothyroid | | | | [address] | | | | | | [phone] | | | +--------+---------+ + + + [...] + + + | Blood Pressure | 143/90 | 11/14/2014 1:16 PM | | | | | PDT | | + + + + + | Pulse | 81 | 11/14/2014 1:16 PM | | | | | PDT | | + + + + + | Temperature | 36.1 C (97 F) | 11/14/2014 1:16 PM | | | | | PDT [...] + + + + | Weight | 140.3 kg (309 lb 4.8 | 11/14/2014 1:16 PM | | | | oz) | PDT | | + + + + + | Height | - | - | | + + + + + | Body Mass Index | 47.03 | 12/05/2011 1:01 PM | | | | | PDT | | + + + + + documented in this encounter Progress Notes Cathie Fields, SANIYA,STAFF [employer] [facility] [facility] OFFICER,[place] - 11/14/2014 2:05 PM PDTFormatting of this note might be di fferent from the original. Reason for visit. Amairani Tyler returns to pituitary clinic for interval review of pituitary symptoms and titration of hormone replacement. 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 Reuben Styles. He had a cardiac stent place 02/2011 after a n [place]. At this visit; Symptoms and Complaints: Migraine 1-2/week. no nausea or dizziness recently. No further vomiting. Had a recent URI CHest pain in middle of noc that woke him. Did not follow up in ED He is pending review for cardiac stent currently weight still labile but has improved. Has been working 60+ hrs a week. Reports Using testsoterone more irregularly. Sexual function ok Fatigued back pain no change. B/p labile Taking Thyroid regularly Uses CPAP more regularly- not with recent URI No visual changes Mood stable. Sleeps OK No polyuria or polydipsia no nocturia Is drinking 1-2 red bull daily. Hot flashes and some night sweats. Exact date of onset of symptoms is unknown Review of systems negative other than as stated above. Physical Exam: Blood pressure 143/90, pulse 81, temperature 36.1 C (97 F), temperature source Forehead , weight 140.298 kg (309 lb 4.8 oz). 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 He underwent cardiac stenting after MRI 02/13. Pt reports he has been more regular taking medications ( particularly prior to appointments per SO). Pt reports recent work cardiac up revealed progression of CAD and patient is sche duled for stenting in near future. He has had a recent episode of chest pain that woke him up at night but he did not present to ED. He reports no further symptoms of SYED and regular use of replacement glucocorticoids. He tinsley s not required stress dosing. Pt reports he has regained weight he previously lost and has returned to his old dietary tinsley bits. He is also drinking 2 or more cans of Red Bull daily. We discussed the risk of this h abit with respect to his blood pressure and cardiac complaints. Pt expressed an understandi ng of the need for dietary changes and the need to discontinue his intake of stimulants such as Red Bull. He is encouraged to report to ED for any further chest pain. Again reviewed and reiterat ed to patient concerns re AI with high risk of vascular collapse that can be fatal if he storm s not receive adequate glucocorticoids in the event of times of additional demand and sympto ms of AI. 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 Pt and SO are given instruction re administration of ER solucortef by IM injec tion in the christianity of severe illness, injury or vomiting if patient is unable to respond or take regular dose of glucocorticoids. After administration they are instructed to present t o the nearest ED for full evaluation of the etiology of symptoms. Pt believes his thyroid dose was increased locally to 175mcg daily but was reduced at last visit here to 150mcg daily. Pt and SO will recheck dose and will adjust according to current values. The importance of regular use of medications was stressed with this patient. I answered pt and partner's questions to their satisfaction. Plan 1. Adrenals. Pt will continue 25mg hydrocortisone daily. He is reminded to take ER steroi ds up to 40mg extra for illness, injury, fever, vomiting from any cause. And is give rx for solucortef to administer 50-100mg im for severe symptoms including vomiting, injury and dana re illness, particularly if systolic b/p is <100. 2. Testosterone level pending. Pt reports he has been using topical gel prep. Recommend s witching to depot testosterone and following up with PCP for management 3. Growth hormone. IGF-1 pending. Pt is GH deficient. No changes anticipated. 4. Thyroid. TSH, FT4 pending. No change in dose is anticipated. 5. DI.Appears controlled. BMP pending. No change in DDAVp anticiapted. 6. Vitamin D insufficiency. Pt to continue 3,000IU vitamin D3 6. Follow up in 6 mths 05/24 with [facility] RM labs. Next MRI 12/2016 CATHIE FIELDS DNP, STAFF [employer] [facility] OFFICER, [place] Sales[employer] [facility] [address] [place] [address] Component Latest Ref Rng 11/14/2014 11/14/2014 11/14/2014 11/14/2014 2:34 PM 2:34 PM 2:34 PM 2:34 PM GLUCOSE, PLASMA (LAB) 60-99 mg/dL BUN, PLASMA (LAB) 6-20 mg/dL CREATININE PLASMA (LAB) 0.70-1.30 mg/dL EGFR - SWEDISH >60 mL/min EGFR NON -SWEDISH >60 mL/min SODIUM, PLASMA (LAB) 136-145 mmol/L POTASSIUM, PLASMA (LAB) 3.4-5.0 mmol/L CHLORIDE, PLASMA (LAB) 97-108 mmol/L TOTAL CO2, PLASMA (LAB) 21-32 mmol/L CALCIUM, PLASMA (LAB) 8.6-10.2 mg/dL ANION GAP POTASSIUM CMNT FREE T4, SERUM 0.6-1.2 ng/dL PROLACTIN 3 - 13 ng/mL 4 TESTOSTERONE, SERUM 175 - 781 ng/dL 276 TSH 0.39-4.17 mIU/L 0.59 VITAMIN D 25 HYDROXY 30-80 ng/mL 22.4 (L) Component Latest Ref Rng 11/14/2014 11/14/2014 2:34 PM 2:34 PM GLUCOSE, PLASMA (LAB) 60-99 mg/dL 85 BUN, PLASMA (LAB) 6-20 mg/dL 19 CREATININE PLASMA (LAB) 0.70-1.30 mg/dL 0.81 EGFR - SWEDISH >60 mL/min >60 EGFR NON -SWEDISH >60 mL/min >60 SODIUM, PLASMA (LAB) 136-145 mmol/L 139 POTASSIUM, PLASMA (LAB) 3.4-5.0 mmol/L 3.6 CHLORIDE, PLASMA (LAB) 97-108 mmol/L 105 TOTAL CO2, PLASMA (LAB) 21-32 mmol/L 28 CALCIUM, PLASMA (LAB) 8.6-10.2 mg/dL 9.1 ANION GAP 6 POTASSIUM CMNT No Hemo FREE T4, SERUM 0.6-1.2 ng/dL 1.3 (H) PROLACTIN 3 - 13 ng/mL TESTOSTERONE, SERUM 175 - 781 ng/dL TSH 0.39-4.17 mIU/L VITAMIN D 25 HYDROXY 30-80 ng/mL Plan 1. Adrenals Fx. Continue 20-25mg HC daily .Will recheck [facility] at next visit. 2. Thyroid. If pt has been taking 175mcg daily, will reduce dose to 150mcg daily. Follow u p at next visit 3. Testosterone. Pt will continue same dose of gel for bone preservation 4. GH. IGf-1 pending. 5. DDAVP no change in dose 6. Vitamin D insufficiency. 3,000IU vitamin D3 daily 7. Follow up in 6 mths. 05/24 Electronically signed by Cathie Fields, SANIYA,STAFF [employer] [facility] [facility] OFFICER,[place] at 11/19/2014 4:00 PM PDTdocumented in this encounter Plan of Treatment +--------+---------+ + + + | Date | Type | Specialty | Care Team | Description | +--------+---------+ + + + | 08/15/ | Office | Cardiology | Zuleika Hernandez, | | | 2019 | Visit | | [address] | | | | | | [address] | | | | | | [place], [place] | | | | | | [address] | | | | | | [phone] | | | | | | | | +--------+---------+ + + + documented as of this encounter Results VITAMIN D, 25-HYDROXY, SERUM (11/14/2014 2:34 PM PDT) + + + + + + | Component | Value | Ref Range | Performed | Pathologist | | | | | At | Signature | + + + + + + | VITAMIN D | 22.4 (L) | 30 - 80 ng/mL | [facility] | | | 25 HYDROXY | | | LABORATORY | | | | | | SERVICES, | | | | | | SPECIAL IMM | | | | | | + COAG | | + + + + + + + + | Specimen | + + | Blood - Blood | + + + + + | Narrative | Performed At | + + + | REFERENCE INTERVAL: Vitamin D, 25-Hydroxy 0-17years: | [facility] | | Deficiency: less than 20 ng/mL Optimum level: | LABORATORY | | greater than or equal to 20 ng/mL* | SERVICES, | | *(Jose CL et al. Pediatrics 2008; 122:1128-38.) 18 | SPECIAL IMM + | | years and older: Deficiency: less than 20 | COAG | | ng/mL Insufficiency: 20-29 ng/mL | | | Optimum Level: 30-80 ng/mL High: | | | 81-150 ng/ml Toxic: Greater than | | | 150 ng/mL This assay accurately quantifies the sum of Vitamin D3 | | | 25-hydroxy and Vitamin D2, 25-hydroxy. Reference range | | | change effective 03/03/2013. | | + + + + + + + + | Performing | Address | City/State/Zipcode | Phone Number | | Organization | | | | + + + + + | [facility] | [address] | [place] [address] | | | SERVICES, SPECIAL | [address] | | | | IMM + [place] | | | | + + + + + TSH (11/14/2014 2:34 PM PDT) + +-------+ + + + | Component | Value | Ref Range | Performed | Pathologist | | | | | At | Signature | + +-------+ + + + | TSH | 0.59 | 0.39 - 4.17 | [facility] | | | | | mIU/L | LABORATORY | | | | | | SERVICES, | | | | | | CORE | | + +-------+ + + + + + | Specimen | + + | Blood - Blood | + + + + + | Narrative | Performed At | + + + | TSH reference ranges are influenced by a variety of environmental | [facility] | | influences, age, gender and ethnicity. The supplied reference limits | LABORATORY | | are based on published values utilizing a similar TSH assay, and | SERVICES, CORE | | should be interpreted with caution. | | + + + + + + + + | Performing | Address | City/State/Zipcode | Phone Number | | Organization | | | | + + + + + | [facility] | [address] | [place] [address] | | | [place]Y RANKIN | [address] | | | + + + + + TESTOSTERONE, SERUM (11/14/2014 2:34 PM PDT) + +-------+ + + + | Component | Value | Ref Range | Performed | Pathologist | | | | | At | Signature | + +-------+ + + + | TESTOSTERON | 276 | 175 - 781 ng/dL | [facility] [...] + | [facility] - | [address] | [place] [address] | | | [place] | | | | + + + + + PROLACTIN, SERUM (11/14/2014 2:34 PM PDT) + +-------+ + + + | Component | Value | Ref Range | Performed | Pathologist | | | | | At | Signature | + +-------+ + + + | PROLACTIN | 4 | 3 - 13 ng/mL | [facility] [...] + | [facility] - | [address] | [place] [address] | | | [place] | | | | + + + + + INSULIN GROWTH FACTOR-1, SERUM (11/14/2014 2:34 PM PDT) + +--------+ + + + | Component | Value | Ref Range | Performed | Pathologist | | | | | At | Signature | + +--------+ + + + | IGF-1 | 73 (L) | 116 - 353 ng/mL | [...] + | [facility] | [address] | [place] [address] | | | [facility] | | | | + + + + + FREE T4 (11/14/2014 2:34 PM PDT) + +---------+ + + + | Component | Value | Ref Range | Performed | Pathologist | | | | | At | Signature | + +---------+ + + + | FREE T4 | 1.3 (H) | 0.6 - 1.2 ng/dL | [facility] | | | | | [...] | + + + + + | [facility] | [address] | [place] [address] | | | SERVICES, CORE | [address] | | | + + + + + BASIC METABOLIC SET (NA, K, CL, TCO2, BUN, CR, GLU, CA) (11/14/2014 2:34 PM PDT) + +---------+ + + + | Component | Value | Ref Range | Performed | Pathologist | | | | | At | Signature | + +---------+ + + + | GLUCOSE, | 85 | 60 - 99 mg/dL | [facility] | | | PLASMA | | | LABORATORY | | | (LAB) | | | SERVICES, | | | | | | CORE | | + +---------+ + + + | BUN, PLASMA | 19 | 6 - 20 mg/dL | [facility] | | | (LAB) | | | LABORATORY | | | | | | SERVICES, | | | | | | CORE | | + +---------+ + + + | CREATININE | 0.81 | 0.70 - 1.30 | [facility] | | | PLASMA | | mg/dL | LABORATORY | | | (LAB) | | | SERVICES, | | | | | | CORE | | + +---------+ + + + | EGFR | >60 | >60 mL/min | [facility] | | | - | | | LABORATORY | | | [place] | | | SERVICES, | | | | | | CORE | | + +---------+ + + + | EGFR NON | >60 | >60 mL/min | [facility] | | | -JASWINDER | | | LABORATORY | | | RICAN | | | SERVICES, | | | | | | CORE | | + +---------+ + + + | SODIUM, | 139 | 136 - 145 | [facility] | | | PLASMA | | mmol/L | LABORATORY | | | (LAB) | | | SERVICES, | | | | | | CORE | | + +---------+ + + + | POTASSIUM, | 3.6 | 3.4 - 5.0 | [facility] | | | PLASMA | | mmol/L | LABORATORY | | | (LAB) | | | SERVICES, | | | | | | CORE | | + +---------+ + + + | CHLORIDE, | 105 | 97 - 108 mmol/L | [facility] | | | PLASMA | | | LABORATORY | | | (LAB) | | | SERVICES, | | | | | | CORE | | + +---------+ + + + | TOTAL CO2, | 28 | 21 - 32 mmol/L | [facility] | | | PLASMA | | | LABORATORY | | | (LAB) | | | SERVICES, | | | | | | CORE | | + +---------+ + + + | CALCIUM, | 9.1 | 8.6 - 10.2 | [facility] | | | PLASMA | | mg/dL | LABORATORY | | | (LAB) | | | SERVICES, | | | | | | CORE | | + +---------+ + + + | ANION GAP | 6 | mmol/L | [facility] | | | [...] the MDRD equation recommended by the | [facility] | | National Kidney Disease Education Program. Estimated GFR | LABORATORY | | Interpretive Information: <60 mL/min/1.73 sq m | SERVICES, CORE | | Chronic Kidney Disease <15 [...] | + + + + + | [facility] | [address] | [place] [address] | | | SERVICES, CORE | [address] | | | + + + + + documented in this encounter Visit Diagnoses + + | Diagnosis | + + | Pituitary adenoma (HCC) - Primary Benign neoplasm of pituitary gland and | | craniopharyngeal duct (pouch) | + + | Growth hormone deficiency (HCC) Pituitary dwarfism | + + | Diabetes insipidus (HCC) Diabetes insipidus | + + | Hypogonadism male Other testicular hypofunction | + + | Hypothyroid Unspecified hypothyroidism | + + documented in this encounter"
--- OUTSIDE RECORDS SUMMARY | ~2019-07-14 | XMS | Encounter Summary ---
Demographics + + + | Address | [address] [address] | | | [place] [address] | + + + | Home Phone | | + + + | Preferred Language | Unknown | + + + | Marital Status | Single | + + + | Restorationist Affiliation | NON | + + + | Race | or | + + + | Ethnic Group | Not or | + + + Author + + + | Author | [employer] [facility] | + + + | Organization | [facility] | + + + | Address | Unknown | + + + | Phone | Unavailable | + + + Support + + +---------+ + | Name | Relationship | Address | Phone | + + +---------+ + | Alexandria Dixon | ECON | Unknown | | + + +---------+ + Care Team Providers + +------+ + | Care Rn Social Work Name | Role | Phone | + +------+ + | Jinny Bergeron MD | PCP | | + +------+ + Encounter Details +--------+ + + + + | Date | Type | Department | Care Team | Description | +--------+ + + + + | 06/24/ | Abstract | Cardiology General | Danielle Aguilar MD | | | 2016 | | at [facility] [address] | [address] | | | | | [address] Mailcode: | [place], [place] | | | | | [address] | [address] | | | | | Health and Healing, | [phone] | | | | | [facility] | | | | | | floor [place], [place] | | | | | | [address] | | | | | | [phone] | | | +--------+ + + + [...] [address] | | | | | | [place], [place] | | | | | | [address] | | | | | | [phone] | | | | | | | | +--------+---------+ + + + documented as of this encounter Visit Diagnoses Not on filedocumented in this encounter"
--- OUTSIDE RECORDS SUMMARY | ~2019-07-14 | XMS | Encounter Summary ---
Demographics + + + | Address | [address] | | | [place] [address] | + + + | Home Phone | | + + + | Preferred Language | Unknown | + + + | Marital Status | Single | + + + | Yazdanism Affiliation | Unknown | + + + | Race | Unknown | + + + | Ethnic Group | Unknown | + + + Author + + + | Author | [facility] | | | and [place] | + + + | Organization | [facility] | | | and [place] [...] Team Providers + +------+ + | Care Analysis Consultant Name | Role | Phone | + +------+ + | Priscilla Ramírez PA-C | PCP | | + +------+ + Encounter Details +--------+ + + + + | Date | Type | Department | Care Team | Description | +--------+ + + + + | 03/06/ | Orders Only | [facility] | Provider, | | | 2019 | | SYSTEM GENERIC OP | [address] | | | | | [address] | Esmer Gomez | | | | | [address] [place], [place] | [place] [address] | | | | | [address] | | | | | | [phone] | | | +--------+ + + + + Social History + + [...] [place] | | | | | | [address] | | | | | | | | +--------+---------+ + + + documented as of this encounter Visit Diagnoses Not on filedocumented in this encounter"
--- OUTSIDE RECORDS SUMMARY | ~2019-07-14 | XMS | Encounter Summary ---
Demographics + + + | Address | [address] | | | [place] [address] | + + + | Home Phone | | + + + | Preferred Language | Unknown | + + + | Marital Status | Single | + + + | Gnosticism Affiliation | NON | + + + | Race | or | + + + | Ethnic Group | Not or | + + + Author + + + | Author | [facility] | + + + | Organization | [facility] | + + + | Address | Unknown | + + + | Phone | Unavailable | + + + Support + + +---------+ + | Name | Relationship | Address | Phone | + + +---------+ + | Alexandria Dixon | ECON | Unknown | | + + +---------+ + Care Team Providers + +------+ + | Care Matrix Drier Tender Name | Role | Phone | [...] | | | | | adenoma | DNP,MAGNETIC PROSPECTOR,[place] | DNP,MAGNETIC PROSPECTOR,[place] | | | | | (HCC) Other | [address] | [address] | | | | | 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 | | | | | hypofunction | [place], [place] | [place] | | | | | 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 | Phone: | Phone: | | | | | (HCC) | [phone] | [phone] | | | | | Glucocortico | Fax: | Fax: | | | | | id | [phone] | [phone] | | | | | deficiency | | | | | | | (HCC) | | | | | | | 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 | | | | | | | (HCC) | | | | | | | Procedures | | | | | | | KS | | | | | | | OFFICE/OUTPT | | | | | | | | | | | | | | VISIT,EST,LE | | | | | | | VL I [place] | | | | | | | OFFICE/OUTPT | | | | | | | | | | | | | | VISIT,EST,LE | | | | | | | VL II [place] | | | | | | | OFFICE/OUTPT | | | | | | | | | | | | | | VISIT,EST,LE | | | | | | | LISHA III [place] | | | | | | | OFFICE/OUTPT | | | | | | | | | | | | | | VISIT,EST,LE | | | | | | | VL IV KS | | | | | | | EST PATIENT | | | | | | | LEVEL V | | | +--------+--------+ + + + + Encounter Details +--------+---------+ + + + | Date | Type | Department | Care Team | Description | +--------+---------+ + + + | 12/09/ | Office | Neurosurgery at | [place], | 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 | Visit | [facility] [address] | Cathie | ([facility]) (Primary Dx) | | | | [place] Mailcode: [id number] | DNP,MAGNETIC PROSPECTOR,[place] [address] | | | | | [facility] | [address] [place], | | | | | and Healing, | [place] [address] | | | | | Building [address] | [phone] | | | | | [place], [place] | | | | | | [address] | | | | | | [phone] | | | +--------+---------+ + + + [...] + + + | Blood Pressure | 135/85 | 12/09/2013 11:59 AM | | | | | PDT | | + + + + + | Pulse | 89 | 12/09/2013 11:59 AM | | | | | PDT | | + + + + + | Temperature | - | - | | + + + + + | Respiratory Rate | 20 | 12/09/2013 11:59 AM | | | | | PDT | | + + + + + | Oxygen Saturation | - | - | | + + + + + | Inhaled Oxygen | - | - | | | Concentration | | | | + + + + + | Weight | 136.4 kg (300 lb 9.6 | 12/09/2013 11:59 AM | | | | oz) | PDT | | + + + + + | Height | - | - | | + + + + + | Body Mass Index | 45.71 | 12/05/2011 1:01 PM | | | | | PDT | | + + + + + documented in this encounter Progress Notes Cathie Fields, SANIYA,MAGNETIC PROSPECTOR,[place] - 12/09/2013 12:16 PM PDTReason for visit. Amairani Tyler retur ns to pituitary clinic 11/30/09 for interval review of pituitary symptoms and titration of h ormone replacement. 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 Reuben Styles. He had a cardiac stent place 02/2011 after a n [place]. At this visit; Symptoms and Complaints: Feels flushed with hot flashes at times. Was off testosterone using now for a weeks Was off GH for at least a month back on x 2 days thryoid was decreased by local provider about 2 mths ago to 150mg more flushing since that time Mikado enegy level is lower weight still labile but has gain some. . No cardiac concerns no chest pain or SOB Doing well at new job. Sexual function ok back pain still under treatment by chiropractor maybe worse No injuries recenty B/p spiked for about 3 mths and had meds increased now stable. Uses CPAP more regularly No visual changes Dx with DM pt wants to treat with diet. Mood stable. Headaches x 2-3 x/week not as back with increase in B/P meds. Sleep better 5-7hrs a noc No polyuria or polydipsia no nocturia Wakes in the middle of the night Exact date of onset of symptoms is unknown Review of systems negative other than as stated above. Physical Exam: Blood pressure 135/85, pulse 89, resp. rate 20, weight 136.351 kg (300 lb 9.6 oz). General: A pleasant man who looks [...] Assessment and discussion: Pt continues to be generally stable but is irregular with medications. He is working variab le shifts making it challenging for him to take medications on a regular basis. He denies CP or symptoms of SYED. He reports no injuries or need for extra steroids over the last 6 mths. He report poor sexual function And hot flashes but has not been using testosterone regula rly. No other indications of unreplaced endocrinopathies at this visit. DI continues to be controlled with current dose of DDAVP. Will recheck BMP Pt reports he recently decreased his levothyroxine dose. Will recheck TSH and FT4. TSH is u nreliable after pituitary resection in the setting of awad hypopituitarism so his dose manage ment is dependent of FT4 with effort to keep level in mid upper range of normal. We reviewed MRI that appears stable with evidence of recurrent lesion. Radiology read pendi ng I answered pt and partner's questions to their satisfaction. Plan 1. Adrenals. Pt will continue 20mg hydrocortisone daily. He is reminded to take ER steroid s up to 40mg extra for illness, injury, fever, vomiting from any cause. 2. Testosterone level pending. He has only restarted this tx in the last few days so anti cipate this to be low. Pt will continue same daily doses.Discussed injectable depot testost erone for better compliance. Pt will consider. 3. Growth hormone. IGF-1 pending. No change in dose is anticipated as he has only recentl y restarted tx. 4. Thyroid. TSH, FT4 pending. Will adjust dose base on FT4 to keep level in mid upper rossy l range. 5. DI.Appears controlled. BMP pending. No change in DDAVp anticiapted. 6. MRI at next visit in 2 years with labs. Interval follow up in 6 mths. TOMER MONTELONGO DNP, BECCA Manager Transportation [facility] [address] [place] [address] documented in this encounter Plan of Treatment +--------+---------+ + + + | Date | Type | Specialty | Care Team | Description | +--------+---------+ + + + | 08/15/ | Office | Cardiology | Zuleika Hernandez, | | | 2019 | Visit | | [address] | | | | | | [address] | | | | | | [place], [place] | | | | | | [address] | | | | | | [phone] | | | | | | | | +--------+---------+ + + + documented as of this encounter Procedures + +--------+ + + + | Procedure Name | Priori | Date/Time | Associated Diagnosis | Comments | | | ty | | | | + +--------+ + + + | VITAMIN D, | Routin | 12/09/2013 | Pituitary adenoma | Results for this | | 25-HYDROXY, SERUM | e | 12:45 PM | (HCC) | procedure are in the | | | | PDT | | results section. | + +--------+ + + + | BASIC METABOLIC SET | Routin | 12/09/2013 | Pituitary adenoma | Results for this | | (NA, K, CL, TCO2, | e | 12:45 PM | (HCC) | procedure are in the | | BUN, CR, GLU, CA) | | PDT | | results section. | + +--------+ + + + | INSULIN GROWTH | Routin | 12/09/2013 | Pituitary adenoma | Results for this | | FACTOR-1, SERUM | e | 12:45 PM | (HCC) | procedure are in the | | | | PDT | | results section. | + +--------+ + + + | FREE T4 | Routin | 12/09/2013 | Pituitary adenoma | Results for this | | | e | 12:45 PM | (HCC) | procedure are in the | | | | PDT | | results section. | + +--------+ + + + | PROLACTIN | Routin | 12/09/2013 | Pituitary adenoma | Results for this | | | e | 12:45 PM | (HCC) | procedure are in the | | | | PDT | | results section. | + +--------+ + + + | TSH | Routin | 12/09/2013 | Pituitary adenoma | Results for this | | | e | 12:45 PM | (HCC) | procedure are in the | | | | PDT | | results section. | + +--------+ + + + | TESTOSTERONE, SERUM | Routin | 12/09/2013 | Pituitary adenoma | Results for this | | | e | 12:45 PM | (HCC) | procedure are in the | | | | PDT | | results section. | + +--------+ + + + documented in this encounter Results VITAMIN D, 25-HYDROXY, SERUM (12/09/2013 12:45 PM PDT) + + + + + + | Component | Value | Ref Range | Performed | Pathologist | | | | | At | Signature | + + + + + + | VITAMIN D | 20.8 (L) | 30 - 80 ng/mL | [...] to 20 ng/mL* | SERVICES, | | *(Garcia CL et al. Pediatrics 2008; 122:1128-38.) 18 [...] | + + + + + | [facility] | [address] | [place] [address] | | | SERVICES, SPECIAL | [address] | | | | IMM + COAG | | | | + + + + + PROLACTIN, SERUM (12/09/2013 12:45 PM PDT) + +-------+ + + + | Component | Value | Ref Range | Performed | Pathologist | | | | | At | Signature | + +-------+ + + + | PROLACTIN | 6 | 3 - 13 ng/mL | [facility] [...] + | [facility] | [address] | [place] [address] | | | [place] | | | | + + + + + TESTOSTERONE, SERUM (12/09/2013 12:45 PM PDT) + +--------+ + + + | Component | Value | Ref Range | Performed | Pathologist | | | | | At | Signature | + +--------+ + + + | TESTOSTERON | 92 (L) | 175 - 781 ng/dL | [facility] [...] + | [facility] | [address] | [place] [address] | | | [place] | | | | + + + + + TSH (12/09/2013 12:45 PM PDT) + +-------+ + + + | Component | Value | Ref Range | Performed | Pathologist | | | | | At | Signature | + +-------+ + + + | TSH | 0.73 | 0.39 - 4.17 | [facility] | [...] + + + | [facility] | [address] | [place] [address] | | | [place]Y RANKIN | [address] | | | + + + + + INSULIN GROWTH FACTOR-1, SERUM (12/09/2013 12:45 PM PDT) + +-------+ + + + | Component | Value | Ref Range | Performed | Pathologist | | | | | At | Signature | + +-------+ + + + | IGF-1 | 126 | 116 - 353 ng/mL | [facility] | | | | | [facility] - | | | | | | [place] | | + +-------+ + + + + + | Specimen | + + | Blood - Blood | + + + + + + + | Performing | Address | City/State/Zipcode | Phone Number | | Organization | | | | + + + + + | [facility] | [address] | [place] [address] | | | [place] | | | | + + + + + FREE T4 (12/09/2013 12:45 PM PDT) + +-------+ + + + | Component | Value | Ref Range | Performed | Pathologist | | | | | At | Signature | + +-------+ + + + | FREE T4 | 1.1 | 0.6 - 1.2 ng/dL | [facility] | | | | | | LABORATORY | | | | | | SERVICES, | | | | | | CORE | | + +-------+ + + + + + | Specimen | + + | Blood - Blood | + + + + + | Narrative | Performed At | + + + | Test now performed at [facility]. New method effective 06/22/13. | [facility] | | | LABORATORY | | | SERVICES, CORE | + + + + + + + + | Performing | Address | City/State/Zipcode | Phone Number | | Organization | | | | + + + + + | [facility] | [address] | [place] [address] | | | SERVICES, CORE | [address] | | | + + + + + BASIC METABOLIC SET (NA, K, CL, TCO2, BUN, CR, GLU, CA) (12/09/2013 12:45 PM PDT) + +---------+ + + + | Component | Value | Ref Range | Performed | Pathologist | | | | | At | Signature | + +---------+ + + + | GLUCOSE, | 107 (H) | 60 - 99 mg/dL | [facility] | | | PLASMA | | | LABORATORY | | | (LAB) | | | MASSIEL, | | | | | | CORE | | + +---------+ + + + | BUN, PLASMA | 16 | 6 - 20 mg/dL | [facility] | | | (LAB) | | | LABORATORY | | | | | | SERVICES, | | | | | | CORE | | + +---------+ + + + | CREATININE | 0.70 | 0.70 - 1.30 | [facility] | | | PLASMA | | mg/dL | LABORATORY | | | (LAB) | | | SERVICES, | | | | | | CORE | | + +---------+ + + + | EGFR | >60 | >60 mL/min | [facility] | | | - | | | LABORATORY | | | PARAGU[place]AN | | | SERVICES, | | | | | | CORE | | + +---------+ + + + | EGFR NON | >60 | >60 mL/min | [facility] | | | -JASWINDER | | | LABORATORY | | | RICAN | | | SERVICES, | | | | | | CORE | | + +---------+ + + + | SODIUM, | 137 | 136 - 145 | [facility] | | | PLASMA | | mmol/L | LABORATORY | | | (LAB) | | | SERVICES, | | | | | | CORE | | + +---------+ + + + | POTASSIUM, | 4.1 | 3.4 - 5.0 | [facility] | | | PLASMA | | mmol/L | LABORATORY | | | (LAB) | | | SERVICES, | | | | | | CORE | | + +---------+ + + + | CHLORIDE, | 103 | 97 - 108 mmol/L | [facility] | | | PLASMA | | | LABORATORY | | | (LAB) | | | SERVICES, | | | | | | CORE | | + +---------+ + + + | TOTAL CO2, | 23 | 21 - 32 mmol/L | [facility] [...] + + + | ANION GAP | 11 | mmol/L | [facility] | | | [...] the MDRD equation recommended by the | [facility] | | National Kidney Disease Education Program. [...] | + + + + + | [facility] | [address] | [place] [address] | | | MASSIEL, [place] | [address] | | | + + + + + documented in this encounter Visit Diagnoses + + | Diagnosis | + + | Pituitary adenoma (HCC) - Primary Benign neoplasm of pituitary gland and | | craniopharyngeal duct (pouch) | + + documented in this encounter"
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
--- OUTSIDE RECORDS SUMMARY | ~2019-07-14 | XMS | Encounter Summary ---
Demographics + + + | Address | [address] | | | [place] [address] | + + + | Home Phone [...] + + + | Author | [facility] | + + + | Organization | [facility] | + + + | Address | Unknown | + + + | Phone | Unavailable | + + + Support + + +---------+ + | Name | Relationship | Address | Phone | + + +---------+ + | Alexandria Dixon | ECON | Unknown | | + + +---------+ + Care Team Providers + +------+ + | Care Surgical Clinical Reviewer Name | Role | Phone | + +------+ + | Jhonny Rodriguez DO | PCP | | + +------+ + Encounter Details +--------+ + + + + | Date | Type | Department | Care Team | Description | +--------+ + + + + | 08/04/ | MyChart | Neurosurgery at | Donnie, | RE: testosterone | | 2011 | Encounter | [facility] [address] | Cathie | | | | | [place] Mailcode: CH8N | DNP,HEDIS COORDINATOR,[place] [address] | | | | [facility] | [address] [place], | | | | | and [place], | [place] [address] | | | | | [facility] [address] | [phone] | | | | | [place], [place] | | | | | | [address] | | | | | | [phone] | | | +--------+ + + + [...] | | 2019 | Visit | | [address] | | | | | | [address] | | | | | | [place], [place] | | | | | | [address] | | | | | | [phone] | | | | | | | | +--------+---------+ + + + documented as of this encounter Visit Diagnoses Not on filedocumented in this encounter"
--- OUTSIDE RECORDS SUMMARY | ~2019-07-14 | XMS | Encounter Summary ---
Demographics + + + | Address | [address] | | | [place] [address] | + + + | Home Phone | | + + + | Preferred Language | Unknown | + + + | Marital Status | Single | + + + | Mandaeism Affiliation | NON | + + + | Race | or | + + + | Ethnic Group | Not or | + + + Author + + + | Author | [facility] | + + + | Organization | [facility] | + + + | Address | Unknown | + + + | Phone | Unavailable | + + + Support + + +---------+ + | Name | Relationship | Address | Phone | + + +---------+ + | Alexandria Dixon | ECON | Unknown | | + + +---------+ + Care Team Providers + +------+ + | Care Carving Machine Operator Name | Role | Phone | + +------+ + | Priscilla Ramírez PA-C | PCP | | + +------+ + Encounter Details +--------+ + + + + | Date | Type | Department | Care Team | Description | +--------+ + + + + | 08/26/ | Ancillary | Registration [address] | [address], | | | 2005 | Reg[address]ratio | [address] | [address] | | | | n | Abdoulaye Mailcode: [id number] | [place], [place] | | | | | [place], [place] | [address] | | | | | [address] | | | | | | [phone] | | | +--------+ + + + [...] | | 2019 | Visit | | [address] | | | | | | [address] | | | | | | [place] | | | | | | [address] | | | | | | [phone] | | | | | | | | +--------+---------+ + + + documented as of this encounter Visit Diagnoses Not on filedocumented in this encounter"
--- OUTSIDE RECORDS SUMMARY | ~2019-07-14 | XMS | Encounter Summary ---
Demographics + + + | Address | [address] | | | [place] [address] | + + + | Home Phone | | + + + | Preferred Language | Unknown | + + + | Marital Status | Single | + + + | Catholic Affiliation | NON | + + + | Race | or | + + + | Ethnic Group | Not or | + + + Author + + + | Author | [facility] [place] [facility] | + + + | Organization | [facility] | + + + | Address | Unknown | + + + | Phone | Unavailable | + + + Support + + +---------+ + | Name | Relationship | Address | Phone | + + +---------+ + | Alexandria Dixon | ECON | Unknown | | + + +---------+ + Care Team Providers + +------+ + | Care Director Global Strategic Publisher Sales Name | Role | Phone | + [...] Description | +--------+--------+ + + + | 09/02/ | Refill | Neurosurgery at | Donnie, | Refill Request | | 2013 | | [facility] [address] | Cathie, | | | | | [place] Mailcode: CH8N | DNP,BIOCHEMISTRY SPECIALIST,[place] [address] | | | | | [facility] | [address] [place], | | | | | and Healing, | [place] [address] | | | | | Building [address] | [phone] | | | | | [place], [place] | | | | | | [address] | | | | | | [phone] | | | +--------+--------+ + + + [...] Rd | | | | | | [place], [place] | | | | | | [address] | | | | | | [phone] | | | | | | | | +--------+---------+ + + + documented as of this encounter Visit Diagnoses + + | Diagnosis | + + | Pituitary adenoma (HCC) - Primary Benign neoplasm of pituitary gland and | | craniopharyngeal duct (pouch) | + + | Adrenal insufficiency (HCC) Glucocorticoid deficiency | + + documented in this encounter"
--- OUTSIDE RECORDS SUMMARY | ~2019-07-14 | XMS | Encounter Summary ---
Demographics + + + | Address | [address] | | | [place] [address] | + + + | Home Phone | | + + + | Preferred Language | Unknown | + + + | Marital Status | Single | + + + | Hoahaoism Affiliation | NON | + + + | Race | or | + + + | Ethnic Group | Not or | + + + Author + + + | Author | [facility] | + + + | Organization | [facility] | + + + | Address | Unknown | + + + | Phone | Unavailable | + + + Support + + +---------+ + | Name | Relationship | Address | Phone | + + +---------+ + | Alexandria Dixon | ECON | Unknown | | + + +---------+ + Care Team Providers + +------+ + | Care Retail Maintenance Technician Name | Role | Phone | + +------+ + | No Pcp Per Patient | PCP | Unavailable | + +------+ + Reason for Visit + + + | Reason | Comments | + + + | Follow-up in | | | outpatient clinic | | + + + Office Visit - E/M Services (Routine) +--------+--------+ + + + + | Status | Reason | Specialty | Diagnoses / | Referred By | Referred To | | | | | Procedures | Contact | Contact | +--------+--------+ + + + + | Closed | | Neurological | Diagnoses | Tairk, | Donnie, | | | | Surgery | | Shravan Schultz MD | Cathie, | | | | | Glucocortico | [facility] | DNP,[place] | | | | | id | PHYSICIAN | [address] | | | | | deficiency | MED GROUP | Ave | | | | | (HCC) | [address] | [place], [place] | | | | | Benign | MEDICAL | [address] | | | | | neoplasm of | [address] | Phone: | | | | | pituitary | [address] | [phone] | | | | | gland and | [place], | Fax: | | | | | craniopharyn | [place] [address] | [phone] | | | | | geal duct | Phone: | | | | | | (pouch) | [phone] | | | | | | (HCC) Other | Fax: | | | | | | anterior | [phone] | | | | | | pituitary | | | | | | | disorders | | | | | | | 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 | | | | | | | Procedures | | | | | | | 6 month | | | | | | | f/ramila bermudez/Kojo | | | | | | | Donnie TEACHER VOCATIONAL TRAINING | | | +--------+--------+ + + + + Encounter Details +--------+---------+ + + + | Date | Type | Department | Care Team | Description | +--------+---------+ + + + | 06/11/ | Office | Neurosurgery at | Donnie, | Pituitary Adenoma | | 2006 | Visit | [facility] [address] | Cathie, | ([facility]); 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Ave Mailcode: CH8N | DNP,[place] [address] | Hormone Deficiency | | | | [place] [facility] | Nura Villanuevae [place], | ([facility]); 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, | [place] [address] | Insipidus ([facility]); | | | | [address] | [phone] | Hypogonadism Male; | | | | [facility] [place] | | Hypothyroid; Adrenal | | | | [address]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 ([facility]) | | | | [phone] | | | +--------+---------+ + + + [...] + + + | Blood Pressure | 119/80 | 06/11/2007 1:37 PM | | | | | PDT | | + + + + + | Pulse | 76 | 06/11/2007 1:37 PM | | | | | PDT [...] + + + + | Weight | 124.7 kg (275 lb) | 06/11/2007 1:37 PM | | | | | PDT | | + + + + + | Height | - | - | | + + + + + | Body Mass Index | 42.44 | 04/03/2006 2:01 PM | | | | | PDT | | + + + + + documented in this encounter Progress Notes Cathie Fields - 06/11/2007 2:58 PM PDT Reason for visit. 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 He is known to have panhypopituitarism and with diabetes insipidus. 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 Reuben Styles. At this visit he continues to have a persistent headache is worse on waking but continues a s a dull headache during the day. It is not altered by aleve or ibuprofen. He has been using CPAP nightly and notes this is helpful. He denies any significant diffisulty the temperatur e dysregulation, constipation, palpitaitons, dry skin. He notes some difficulty with libido, no hot flashes, night sweats. He denies feelings of social isolation or weight changes. He denies weakness in extremities but notes some numbness and and tingling and fingers and pain particulalry at night. 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 He contin ues to have some difficutly with memory but denies sleep disturbance, fatigue, anxiety, depr ession. Exact date of onset of symptoms is unknown Review of systems negative other than as stated above. Positvie tinels and phalen's sign right wrist. Remainder of physical exam is unchanged from previous visit. Labs: BMP, IGF-1, TSH, Free T4, LH, FSH, Testosterone, Prolactin pending Assessment and discussion Pt continues to have significant headaches. We discussed steroid dosing and timing of doses . We discussed the need for stress dosing in the event of accident or injury. Pt reports rec ent incident at work involving a crushing injury to his chest. He was advised to double ster oid dose in such events and then to return to normal dose within 2 days. We discussed the ne ed to double dose for 2-3 days in the event of illness. We discussed signs and symptoms of a drenal insufficiency and consequences if not treated which could include vascular collapse a nd . Pt has some symptoms of carpel tunnel syndrome particularly in right wrist recomme nd he followup with neruosurgeon or orthopod. Plan: 1. Pituitary functions. 1.1. Adrenal. The patient has a history of adrenal insufficiency. He is currently panhypotpituitary and will continue hydrocortisone therapy a t 20mg q day. The need for stress dose steroids in the event of injury illness or major stre ssor was stressed with patient. 1.2. Thyroid. The patient has been hypothyroid. Free T 4 pending will adjust thyroid replacement as indicated. 1.3. Gonadal. Testosterone level is pending. Will ajdust replacement as indicated. 1.4. Growth hormone. IGF-1 level is pending if low will adjust growth hormone replacement dose. 1.5. Prolactin. no dopamine agonist therapy is indicated. 1.6. Vasopressin. The patient notes some Polyuria and polydipsia particularly before eveni ng dose of , DDAVP. BMP pending. No change in Therapy is anticipated to be indicated. 2. Followp 12/15 for 1.5 MRI MOLDER MEAT and RM testing 06/17/07 Msg to page cgy for results Component Reference Range 06/11/2007 GLUCOSE (LAB) 60-99 mg/dL 73 BUN 6-20 mg/dL 13 CREATININE 0.7-1.3 mg/dL 0.7 SODIUM (LAB) 136-145 mmol/L 139 POTASSIUM (LAB) 3.5-5.1 mmol/L 5.0 CHLORIDE 98-107 mmol/L 104 TOTAL CO2 23-29 mmol/L 23 CALCIUM (LAB) 8.5-10.5 mg/dL 9.0 POTASSIUM CMNT MOD HEMO IGF-1 117-329 ng/mL 80 (L) PROLACTIN 3-13 ng/ml 4 TESTOSTERONE (LAB) 175-781 ng/dl 96 (L) FREE T4 0.6-1.6 ng/dL 0.6 06/24/07 Discussed results with pt by phone He has not been using GH or testosterone regularly Plan: 1. RTC for repeat testosterone and IGF-1 levels in 2 mths (LS) documented in this enc ounter Plan of Treatment +--------+---------+ + + + | Date | Type | Specialty | Care Team | Description | +--------+---------+ + + + | 08/15/ | Office | Cardiology | Zuleika Hernandez, | | | 2020 | Visit | | [address] | | | | | | [address] | | | | | | [place], [place] | | | | | | [address] | | | | | | [phone] | | | | | | | | +--------+---------+ + + + + +------+--------+ + + | Name | Type | Priori | Associated Diagnoses | Order Schedule | | | | ty | | | + +------+--------+ + + | [facility] | Lab | Routin | Pituitary Adenoma | Ordered: 06/11/2007 | | VPUNCT | | e | (HCC) | | + +------+--------+ + + documented as of this encounter Procedures + +--------+ + + + | Procedure Name | Priori | Date/Time | Associated Diagnosis | Comments | | | ty | | | | + +--------+ + + + | BASIC METABOLIC SET | Routin | 06/11/2007 | Pituitary Adenoma | Results for this | | (NA, K, CL, TCO2, | e | 3:29 PM | (HCC) Growth | procedure are in the | | BUN, CR, GLU, CA) | | PDT | Hormone Deficiency | results section. | | | | | (HCC) Diabetes | | | | | | Insipidus (HCC) | | | | | | Hypogonadism Male | | | | | | Hypothyroid Adrenal | | | |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 (HCC) | | + +--------+ + + + | INSULIN GROWTH | Routin | 06/11/2007 | Pituitary Adenoma | Results for this | | FACTOR-1, SERUM | e | 3:29 PM | (HCC) Growth | procedure are in the | | | | PDT | Hormone Deficiency | results section. | | | | | (HCC) Diabetes | | | | | | Insipidus (HCC) | | | | | | Hypogonadism Male | | | | | | Hypothyroid Adrenal | | | |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 (HCC) | | + +--------+ + + + | FREE T4 | Routin | 06/11/2007 | Pituitary Adenoma | Results for this | | | e | 3:29 PM | (HCC) Growth | procedure are in the | | | | PDT | Hormone Deficiency | results section. | | | | | (HCC) Diabetes | | | | | | Insipidus (HCC) | | | | | | Hypogonadism Male | | | | | | Hypothyroid Adrenal | | | |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 (HCC) | | + +--------+ + + + | PROLACTIN | Routin | 06/11/2007 | Pituitary Adenoma | Results for this | | | e | 3:29 PM | (HCC) Growth | procedure are in the | | | | PDT | Hormone Deficiency | results section. | | | | | (HCC) Diabetes | | | | | | Insipidus (HCC) | | | | | | Hypogonadism Male | | | | | | Hypothyroid Adrenal | | | |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 (HCC) | | + +--------+ + + + | TESTOSTERONE, SERUM | Routin | 06/11/2007 | Pituitary Adenoma | Results for this | | | e | 3:29 PM | (HCC) Growth | procedure are in the | | | | PDT | Hormone Deficiency | results section. | | | | | (HCC) Diabetes | | | | | | Insipidus (HCC) | | | | | | Hypogonadism Male | | | | | | Hypothyroid Adrenal | | | |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 (HCC) | | + +--------+ + + + documented in this encounter Results FREE T4, SERUM (06/11/2007 3:29 PM PDT) + +-------+ + + + | Component | Value | Ref Range | Performed | Pathologist | | | | | At | Signature | + +-------+ + + + | FREE T4, | 0.6 | 0.6 - 1.6 ng/dL | | | | SERUM | | | | | + +-------+ + + + + + | Specimen | + + | | + + + + + | Narrative | Performed At | + + + | Reference Range change effective | | | 05/31/07 [facility] ([facility]) | | | [facility] [place] [address] [facility] | | | [place] [address] | | + + + + + + + + | Performing | Address | City/State/Zipcode | Phone Number | | Organization | | | | + + + + + | [facility] | [address] | [place] [address] | | | LABORATORY | | | | + + + + + TESTOSTERONE (06/11/2007 3:29 PM PDT) + +--------+ + + + | Component | Value | Ref Range | Performed | Pathologist | | | | | At | Signature | + +--------+ + + + | TESTOSTERON | 96 (L) | 175 - 781 ng/dl | | | | E, SERUM | | | | | + +--------+ + + + + + | Specimen | + + | | + + + + + | Narrative | Performed At | + + + | Reference Range change effective | | | 05/31/07 [facility] ([facility]) | | | [facility] [place] [address] | | | [place] [address] | | + + + + + + + + | Performing | Address | City/State/Zipcode | Phone Number | | Organization | | | | + + + + + | [facility] | [address] | [place] [address] | | | LABORATORY | | | | + + + + + PROLACTIN (06/11/2007 3:29 PM PDT) + +-------+ + + + | Component | Value | Ref Range | Performed | Pathologist | | | | | At | Signature | + +-------+ + + + | PROLACTIN | 4 | 3 - 13 ng/ml | | | + +-------+ + + + + + | Specimen | + + | | + + + + + | Narrative | Performed At | + + + | Reference Range change effective | | | 05/31/07 [facility] ([facility]) [place] | | | [place] [address] [facility] | | | [place] [address] | | + + + + + + + + | Performing | Address | City/State/Zipcode | Phone Number | | Organization | | | | + + + + + | [facility] | [address] | [place] [address] | | | LABORATORY | | | | + + + + + IGF-1 (06/11/2007 3:29 PM PDT) + + + + + + | Component | Value | Ref Range | Performed | Pathologist | | | | | At | Signature | + + + + + + | IGF-1 | 80 (L)Comment: Test | 117 - 329 ng/mL | | | | | performed by [facility] | | | [facility] | | | | + + + + + + + + | Specimen | + + | | + + + + + + + | Performing | Address | City/State/Zipcode | Phone Number | | Organization | | | | + + + + + | [facility] | [address] | [place] [address] | | | LABORATORY | | | | + + + + + BASIC METABOLIC SET (NA,K,CL,BUN,CR,GLU,CO2,CA) (06/11/2007 3:29 PM PDT) + + + + + + | Component | Value | Ref Range | Performed | Pathologist | | | | | At | Signature | + + + + + + | GLUCOSE, | 73 | 60 - 99 mg/dL | [facility] [...] + + + + | CREATININE | 0.7 | 0.7 - 1.3 mg/dL | [facility] | | | PLASMA | | | DEPARTMENT | | | (LAB) | | | OF | | | | | | PATHOLOGY | | + + + + + + | SODIUM, | 139 | 136 - 145 | [facility] | | | PLASMA | | mmol/L | DEPARTMENT | | | (LAB) | | | OF | | | | | | PATHOLOGY | | + + + + + + | POTASSIUM, | 5.0 | 3.5 - 5.1 | [facility] | | | PLASMA | | mmol/L | DEPARTMENT | | | (LAB) | | | OF | | | | | | PATHOLOGY | | + + + + + + | CHLORIDE, | 104 | 98 - 107 mmol/L | [facility] | | | PLASMA | | | DEPARTMENT | | | (LAB) | | | OF | | | | | | PATHOLOGY | | + + + + + + | TOTAL CO2, | 23 | 23 - 29 mmol/L | [facility] | | | PLASMA | | | DEPARTMENT | | | (LAB) | | | OF | | | | | | PATHOLOGY | | + + + + + + | CALCIUM, | 9.0 | 8.5 - 10.5 | [facility] | | | PLASMA | | mg/dL | DEPARTMENT | | | (LAB) | | | OF | | | | | | PATHOLOGY | | + + + + + + | POTASSIUM | MOD HEMO | | [facility] | | | CMNT | | | DEPARTMENT | | | | | | OF | | | | | | PATHOLOGY | | + + + + + + + + | Specimen | + + | | + + + + + | Narrative | Performed At | + + + | [id number] Estimated GFR > 60 mL/min/1.73 sq m if non- | [facility] | | [id number] Estimated GFR > 60 mL/min/1.73 sq m if GFR | DEPARTMENT OF | | is estimated using the MDRD equation recommended by the National | PATHOLOGY | | Kidney Disease Education Program. Estimated GFR Interpretive | | | Information: <60 mL/min/1.73 sq m Chronic Kidney Disease <15 | | | mL/mon/1.73 sq m Kidney Failure Estimated GFR greater than | | | 60mL/min/1.73 is of limited clinical Value. The MDRD equation is | | | not valid in the following situations: - Patients under 18 years of | | | age - Severe malnutrition or obesity - Vegetarian diet - Rapidly | | | changing kidney function Sample hemolyzed. Results for K, Total | | | Bili., Direct Bili., AST, LD, or HDL may be inaccurate. Refer to | | | comment under test result. | | + + + + + + + + | Performing | Address | City/State/Zipcode | Phone Number | | Organization | | | | + + + + + | [facility] | [address] | [place] [address] | | | PATHOLOGY | [address] | | | + + + + + | [facility] | [address] | [place] [address] | | | PATHOLOGY | [address] | | | + [...]
--- OUTSIDE RECORDS SUMMARY | ~2019-07-14 | XMS | Encounter Summary ---
Demographics + + + | Address | [address] | | | [place] [address] | + + + | Home Phone | | + + + | Preferred Language | Unknown | + + + | Marital Status | Single | + + + | Voodoo Affiliation | NON | + + + | Race | or | + + + | Ethnic Group | Not or | + + + Author + + + | Author | [place] [facility] [facility] | + + + | Organization | [facility] | + + + | Address | Unknown | + + + | Phone | Unavailable | + + + Support + + +---------+ + | Name | Relationship | Address | Phone | + + +---------+ + | Alexandria Dixon | ECON | Unknown | | + + +---------+ + Care Team Providers + +------+ + | Care Dairy Machine Operator Farmworker Name | Role | Phone | + [...] Description | +--------+--------+ + + + | 02/26/ | Refill | Neurosurgery at | Donnie, | Refill Request | | 2009 | | [facility] [address] | Cathie, | | | | | [place] Mailcode: CH8N | DNP,TYPE BAR AND SEGMENT ASSEMBLER,[place] [address] | | | | | [facility] | [address]ura [address] [place], | | | | | and [facility], | [place] [address] | | | | | Building [address] | [phone] | | | | | [place], [place] | | | | | | [address] | | | | | | [phone] | | | +--------+--------+ + + + [...] [address] | | | | | | [place], [place] | | | | | | [address] | | | | | | [phone] | | | | | | | | +--------+---------+ + + + documented as of this encounter Visit Diagnoses Not on filedocumented in this encounter"
--- OUTSIDE RECORDS SUMMARY | ~2019-07-14 | XMS | Encounter Summary ---
Demographics + + + | Address | [address] | | | [place] [address] | + + + | Home Phone | | + + + | Preferred Language | Unknown | + + + | Marital Status | Single | + + + | Zoroastrianism Affiliation | NON | + + + | Race | or | + + + | Ethnic Group | Not or | + + + Author + + + | Author | [place] [facility] | + + + | Organization | [facility] | + + + | Address | Unknown | + + + | Phone | Unavailable | + + + Support + + +---------+ + | Name | Relationship | Address | Phone | + + +---------+ + | Alexandria Dixon | ECON | Unknown | | + + +---------+ + Care Team Providers + +------+ + | Care Outboard Motor Tester Name | Role | Phone | + +------+ + | No Pcp Per Patient | PCP | Unavailable | + +------+ + Encounter Details +--------+ + + + + | Date | Type | Department | Care Team | Description | +--------+ + + + + | 01/07/ | Documentati | Neurosurgery at | Minh Tan MD | | | 2011 | on | [facility] [address] | [address] | | | | | [address] Mailcode: CH8N | [facility] | | | | [facility] | [place] [address] | | | | | and Healing, | [phone] | | | | | | | | | | | Floor [place], [place] | | | | | | [address] | | | | | | [phone] | | | +--------+ + + + [...] Rd | | | | | | [place], [place] | | | | | | [address] | | | | | | [phone] | | | | | | | | +--------+---------+ + + + documented as of this encounter Visit Diagnoses Not on filedocumented in this encounter"
--- OUTSIDE RECORDS SUMMARY | ~2019-07-14 | XMS | Encounter Summary ---
Demographics + + + | Address | [address] | | | [place] [address] | + + + | Home Phone | | + + + | Preferred Language | Unknown | + + + | Marital Status | Single | + + + | Jewish Affiliation | NON | + + + | Race | or | + + + | Ethnic Group | Not or | + + + Author + + + | Author | [facility] | + + + | Organization | [facility] | + + + | Address | Unknown | + + + | Phone | Unavailable | + + + Support + + +---------+ + | Name | Relationship | Address | Phone | + + +---------+ + | Alexandria Dixon | ECON | Unknown | | + + +---------+ + Care Team Providers + +------+ + | Care Sewer Pipe Layer Name | Role | Phone | + [...] + + + | Closed | | Neurology | Diagnoses | Donnie, | Rajinder, | | | | | Pituitary | Cathie, | MD Lynda | | | | | adenoma | DNP,PROFESSIONAL [place] | [address] | | | | | ([facility]) | [address] | [address] | | | | | Growth | Ave | [place], [place] | | | | | hormone | [place], [place] | [address] | | | | | deficiency | [address] | | | | | | ([facility]) | Phone: | | | | | | 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 | Fax: | | | | | | ([facility]) | [phone] | | | | | | Hypogonadism | | | | | | | male | | | | | | | Hypothyroid | | | | | | | 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 | | | | | | | y ([facility]) | | | | | | | Procedures | | | | | | | CONSULT TO | | | | | | | NEUROLOGY | | | +--------+--------+ + + + + Reason for Visit + + + | Reason | Comments | + + + | Follow-up in | | | outpatient clinic | | + + + Encounter Details +--------+---------+ + + + | Date | Type | Department | Care Team | Description | +--------+---------+ + + + | 04/03/ | Office | Neurosurgery at | [place], | Pituitary Adenoma | | 2008 | Visit | [facility] [address] | Cathie, | ([facility]); 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Ave Mailcode: CH8N | DNP,[place]ESSION[place] [address] | Hormone Deficiency | | | | [place] [facility] | [address] [place], | ([facility]); 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, | [place] [address] | Insipidus ([facility]); | | | | [address] | [phone] | Hypogonadism Male; | | | | [place], [place] | | Hypothyroid; Adrenal | | | | [address]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 ([facility]) | | | | [phone] | | | +--------+---------+ + + + [...] + + + | Blood Pressure | 130/83 | 04/03/2009 10:40 AM | | | | | PDT | | + + + + + | Pulse | 69 | 04/03/2009 10:40 AM | | | | | PDT [...] + + + + | Weight | 128.8 kg (284 lb) | 04/03/2009 10:40 AM | | | | | PDT | | + + + + + | Height | 172.7 cm (5' 8") | 04/03/2009 10:40 AM | | | | | PDT | | + + + + + | Body Mass Index | 43.18 | 04/03/2009 10:40 AM | | | | | PDT | | + + + + + documented in this encounter Progress Cathie Carrillo DNP,TOMER,BECCA - 04/03/2009 10:22 AM PDTSee visit note same dateElectronica lly signed by Cathie Fields DNP, FNP, [place] at 04/03/2009 10:22 AM PDTdocumented in this enc ounter Plan of Treatment +--------+---------+ + + + | Date | Type | Specialty | Care Team | Description | +--------+---------+ + + + | 08/15/ | Office | Cardiology | DavidVidhie, | | | 2019 | Visit | | [address] | | | | | | [address] | | | | | | [place], [place] | | | | | | [address] | | | | | | [phone] | | | | | | | | +--------+---------+ + + + documented as of this encounter Procedures + +--------+ + + + | Procedure Name | Priori | Date/Time | Associated Diagnosis | Comments | | | ty | | | | + +--------+ + + + | CORTISOL, SERUM | Routin | 04/03/2009 | Pituitary Adenoma | Results for this | | | e | 11:20 AM | (HCC) Growth | procedure are in [...] | + +--------+ + + + | ACTH, PLASMA | Routin | 04/03/2009 | Pituitary Adenoma | Results for this | | | e | 10:50 AM | (HCC) Growth | procedure are in [...] | BASIC METABOLIC SET | Routin | 04/03/2009 | Pituitary Adenoma | Results for this | | (NA, K, CL, TCO2, | e | 10:50 AM | (HCC) Growth | procedure are in [...] + | INSULIN GROWTH | Routin | 04/03/2009 | Pituitary Adenoma | Results for this | | FACTOR-1, SERUM | e | 10:50 AM | (HCC) Growth | procedure are in [...] + | FREE T4 | Routin | 04/03/2009 | Pituitary Adenoma | Results for this | | | e | 10:50 AM | (HCC) Growth | procedure are in [...] + + | PROLACTIN | Routin | 04/03/2009 | Pituitary Adenoma | Results for this | | | e | 10:50 AM | (HCC) Growth | procedure are in [...] + + | TSH | Routin | 04/03/2009 | Pituitary Adenoma | Results for this | | | e | 10:50 AM | (HCC) Growth | procedure are in [...] + | TESTOSTERONE, SERUM | Routin | 04/03/2009 | Pituitary Adenoma | Results for this | | | e | 10:50 AM | (HCC) Growth | procedure are in [...] | + +--------+ + + + | LUTEINIZING HORMONE, | Routin | 04/03/2009 | Pituitary Adenoma | Results for this | | SERUM | e | 10:50 AM | (HCC) Growth | procedure are in [...] | + +--------+ + + + | FSH, SERUM | Routin | 04/03/2009 | Pituitary Adenoma | Results for this | | | e | 10:50 AM | (HCC) Growth | procedure are in [...] | + +--------+ + + + | CORTISOL, SERUM | Routin | 04/03/2009 | Pituitary Adenoma | Results for this | | | e | 10:50 AM | (HCC) Growth | procedure are in [...] + + documented in this encounter Results CORTISOL, SERUM (04/03/2009 11:20 AM PDT) + + + + + + | Component | Value | Ref Range | Performed | Pathologist | | | | | At | Signature | + + + + + + | CORTISOL, | 13.9 | ug/dl | | | | TOTAL SERUM | | | | | + + + + + + | TIME | 00:30 | Hrs:mins | | | + + + + + + | SITE | None Given | | | | + + + + + + + + | Specimen | + + | Blood - Blood | + + + + + | Narrative | Performed At | + + + | Cortisol Reference Ranges | [facility] | | AM Reference Range: 7.0 - 23.0 ug/dl | DEPARTMENT OF | | PM Reference Range: Less than 10.0 ug/dl | PATHOLOGY | | [facility]) | | | [facility] [address] | | | [place] [address] | | | | | + + + + + + + + | Performing | Address | City/State/Zipcode | Phone Number | | Organization | | | | + + + + + | [facility] | [address] | [place] [address] | | | PATHOLOGY | [address] | | | + + + + + | [facility] | [address] | [place] [address] | | | PATHOLOGY | [address] | | | + + + + + TSH (04/03/2009 10:50 AM PDT) + + + + + + | Component | Value | Ref Range | Performed | Pathologist | | | | | At | Signature | + + + + + + | TSH | 0.26 (L) | 0.34 - 5.60 | | | | | | uIU/ml | | | + + + + + + + + | Specimen | + + | Blood - Blood | + + + + + | Narrative | Performed At | + + + | Low TSH (suggests Hyperthyroid) | [facility] | | [facility] [facility] [place] | DEPARTMENT OF | | [place] [address] | PATHOLOGY | | [place] [address] | | + + + + + + + + | Performing | Address | City/State/Zipcode | Phone Number | | Organization | | | | + + + + + | [facility] | [address] | [place] [address] | | | PATHOLOGY | [address] | | | + + + + + | [facility] | [address] | [place] [address] | | | PATHOLOGY | [address] | | | + + + + + TESTOSTERONE, SERUM (04/03/2009 10:50 AM PDT) + +---------+ + + + | Component | Value | Ref Range | Performed | Pathologist | | | | | At | Signature | + +---------+ + + + | TESTOSTERON | 128 (L) | 175 - 781 ng/dl | | | | E, SERUM | | | | | + +---------+ + + + + + | Specimen | + + | Blood - Blood | + + + + + | Narrative | Performed At | + + + | [facility]) [place] | [place] | | [facility] [place] [address] [address] [facility] | DEPARTMENT OF | | [place] [address] | PATHOLOGY | + + + + + + + + | Performing | Address | City/State/Zipcode | Phone Number | | Organization | | | | + + + + + | [facility] DEPARTMENT OF | [address] | [place] [address] | | | PATHOLOGY | [address] | | | + + + + + | [facility] DEPARTMENT OF | [address] | [place] [address] | | | PATHOLOGY | [address] | | | + + + + + PROLACTIN, SERUM (04/03/2009 10:50 AM PDT) + +-------+ + + + | Component | Value | Ref Range | Performed | Pathologist | | | | | At | Signature | + +-------+ + + + | PROLACTIN | 5 | 3 - 13 ng/ml | | | + +-------+ + + + + + | Specimen | + + | Blood - Blood | + + + + + | Narrative | Performed At | + + + | [facility] ([facility]) [place] | [place] | | [facility] [address] | DEPARTMENT | | [place] [address] | PATHOLOGY | + + + + + + + + | Performing | Address | City/State/Zipcode | Phone Number | | Organization | | | | + + + + + | [facility] DEPARTMENT OF | [address] | [place] [address] | | | PATHOLOGY | [address] | | | + + + + + | [place] DEPARTMENT OF | [address] | [place] [address] | | | PATHOLOGY | [address] | | | + + + + + LUTEINIZING HORMONE, SERUM (04/03/2009 10:50 AM PDT) + +-------+ + + + | Component | Value | Ref Range | Performed | Pathologist | | | | | At | Signature | + +-------+ + + + | LUTEINIZING | 1 | <11 mIU/mL | | | | | | | | | | HORMONE,SER | | | | | | UM | | | | | + +-------+ + + + + + | Specimen | + + | Blood - Blood | + + + + + | Narrative | Performed At | + + + | [facility] [place] | [place] | | [facility] [place] [address] [address] | DEPARTMENT OF | | [place] [address] | PATHOLOGY | + + + + + + + + | Performing | Address | City/State/Zipcode | Phone Number | | Organization | | | | + + + + + | [facility] DEPARTMENT OF | [address] | [place] [address] | | | PATHOLOGY | [address] | | | + + + + + | [facility] DEPARTMENT OF | [address] | [place] [address] | | | PATHOLOGY | [address] | | | + + + + + INSULIN GROWTH FACTOR-1, SERUM (04/03/2009 10:50 AM PDT) + +--------+ + + + | Component | Value | Ref Range | Performed | Pathologist | | | | | At | Signature | + +--------+ + + + | IGF-1 | 68 (L) | 117 - 329 ng/mL | | | + +--------+ + + + + + | Specimen | + + | Blood - Blood | + + + + + | Narrative | Performed At | + + + | [facility] [place] | [place] | | [facility] [place] [address] [facility] | DEPARTMENT OF | | [place] [address] | PATHOLOGY | + + + + + + + + | Performing | Address | City/State/Zipcode | Phone Number | | Organization | | | | + + + + + | [facility] DEPARTMENT OF | [address] | [place] [address] | | | PATHOLOGY | [address] | | | + + + + + | [facility] | [address] | [place] [address] | | | PATHOLOGY | [address] | | | + + + + + FSH, SERUM (04/03/2009 10:50 AM PDT) + +-------+ + + + | Component | Value | Ref Range | Performed | Pathologist | | | | | At | Signature | + +-------+ + + + | FSH,SERUM | 3 | <19 mIU/mL | | | + +-------+ + + + + + | Specimen | + + | Blood - Blood | + + + + + | Narrative | Performed At | + + + | [facility] ([facility]) [place] | [place] | | [place] [address] [address] | DEPARTMENT OF | | [place] [address] | PATHOLOGY | + + + + + + + + | Performing | Address | City/State/Zipcode | Phone Number | | Organization | | | | + + + + + | [facility] DEPARTMENT OF | [address] | [place] [address] | | | PATHOLOGY | [address] | | | + + + + + | [facility] | [address] | [place] [address] | | | PATHOLOGY | [address] | | | + + + + + FREE T4, SERUM (04/03/2009 10:50 AM PDT) + +-------+ + + + | Component | Value | Ref Range | Performed | Pathologist | | | | | At | Signature | + +-------+ + + + | FREE T4, | 1.0 | 0.6 - 1.2 ng/dL | | | | SERUM | | | | | + +-------+ + + + + + | Specimen | + + | Blood - Blood | + + + + + | Narrative | Performed At | + + + | Free T4 Reference Range change effective 12/28/08 | [facility] | | [facility] [place] | DEPARTMENT OF | | [place] [address] | PATHOLOGY | | [place] [address] | | + + + + + + + + | Performing | Address | City/State/Zipcode | Phone Number | | Organization | | | | + + + + + | [facility] DEPARTMENT OF | [address] | [place] [address] | | | PATHOLOGY | [address] | | | + + + + + | [facility] DEPARTMENT OF | [address] | [place] [address] | | | PATHOLOGY | [address] | | | + + + + + BASIC METABOLIC SET (NA, K, CL, TCO2, BUN, CR, GLU, CA) (04/03/2009 10:50 AM PDT) + +-------+ + + + | Component | Value | Ref Range | Performed | Pathologist | | | | | At | Signature | + +-------+ + + + | GLUCOSE, | 64 | 60 - 99 mg/dL | [facility] | | | PLASMA | | | DEPARTMENT | | | (LAB) | | | OF | | | | | | PATHOLOGY | | + +-------+ + + + | BUN, PLASMA | 16 | 6 - 20 mg/dL | [facility] | | | (LAB) | | | DEPARTMENT | | | | | | OF | | | | | | PATHOLOGY | | + +-------+ + + + | CREATININE | 0.71 | 0.70 - 1.30 | [facility] | | | PLASMA | | mg/dL | DEPARTMENT | | | (LAB) | | | OF | | | | | | PATHOLOGY | | + +-------+ + + + | SODIUM, | 140 | 134 - 143 | [facility] | | | PLASMA | | mmol/L | DEPARTMENT | | | (LAB) | | | OF | | | | | | PATHOLOGY | | + +-------+ + + + | POTASSIUM, | 3.9 | 3.4 - 5.0 | [facility] | | | PLASMA | | mmol/L | DEPARTMENT | | | (LAB) | | | OF | | | | | | PATHOLOGY | | + +-------+ + + + | CHLORIDE, | 105 | 97 - 108 mmol/L | [facility] | | | PLASMA | | | DEPARTMENT | | | (LAB) | | | OF | | | | | | PATHOLOGY | | + +-------+ + + + | TOTAL CO2, | 25 | 23 - 31 mmol/L | [facility] | | | PLASMA | | | DEPARTMENT | | | (LAB) | | | OF | | | | | | PATHOLOGY | | + +-------+ + + + | CALCIUM, | 9.4 | 8.6 - 10.2 | [facility] | | | PLASMA | | mg/dL | DEPARTMENT | | | (LAB) | | | OF | | | | | | PATHOLOGY | | + +-------+ + + + + + | Specimen | + + | Blood - Blood | + + + + + | Narrative | Performed At | + + + | [id number] Estimated GFR > 60 mL/min/1.73 sq m if non- | [facility] | | [place] [id number] Estimated GFR > 60 mL/min/1.73 sq m if | DEPARTMENT OF | | [place] GFR is estimated using the MDRD equation recommended by | PATHOLOGY | | the National Kidney Disease Education Program. Estimated GFR | | | Interpretive Information: <60 mL/min/1.73 sq m Chronic Kidney | | | Disease <15 mL/mon/1.73 sq m Kidney Failure Estimated GFR | | | greater than 60mL/min/1.73 is of limited clinical Value. The MDRD | | | equation is not valid in the following situations: - Patients under | | | 18 years of age - Severe malnutrition or obesity - Vegetarian diet | | | - Rapidly changing kidney function | | + + + + + + + + | Performing | Address | City/State/Zipcode | Phone Number | | Organization | | | | + + + + + | [facility] | [address] | [place] [address] | | | PATHOLOGY | [address] | | | + + + + + | [facility] | [address] [facility] | [place] [address] | | | PATHOLOGY | [address] | | | + + + + + CORTISOL, SERUM (04/03/2009 10:50 AM PDT) + + + + + + | Component | Value | Ref Range | Performed | Pathologist | | | | | At | Signature | + + + + + + | CORTISOL, | 5.9 | ug/dl | | | | TOTAL SERUM | | | | | + + + + + + | TIME | 00:00 | Hrs:mins | | | + + + + + + | SITE | None Given | | | | + + + + + + + + | Specimen | + + | Blood - Blood | + + + + + | Narrative | Performed At | + + + | Cortisol Reference Ranges | [facility] | | AM Reference Range: 7.0 - 23.0 ug/dl | DEPARTMENT OF | | PM Reference Range: Less than 10.0 ug/dl | PATHOLOGY | | [facility] ([address] [facility]) | | | [place] [facility] [place] [address] | | | [place] [address] | | | | | + + + + + + + + | Performing | Address | City/State/Zipcode | Phone Number | | Organization | | | | + + + + + | [facility] | [facility] [address] | [place] [address] | | | PATHOLOGY | [address] | | | + + + + + | [facility] DEPARTMENT OF | [facility] [address] [facility] | [place] [address] | | | PATHOLOGY | [address] | | | + + + + + ACTH, SERUM (04/03/2009 10:50 AM PDT) + + + + + + | Component | Value | Ref Range | Performed | Pathologist | | | | | At | Signature | + + + + + + | ACTH,PLASMA | 9 | <46 pg/mL | | | + + + + + + | TIME | 00:00 | Hrs:mins | | | + + + + + + | SITE | None Given | | | | + + + + + + + + | Specimen | + + | Blood - Blood | + + + + + | Narrative | Performed At | + + + | [facility] ([facility]) | [facility] | | [facility] [address] | DEPARTMENT | | [place] [address] | PATHOLOGY | + + + + + + + + | Performing | Address | City/State/Zipcode | Phone Number | | Organization | | | | + + + + + | [facility] DEPARTMENT OF | [address] | [place] [address] | | | PATHOLOGY | [address] | | | + + + + + | [facility] | [address] [facility] | [place] [address] | | | PATHOLOGY | [address] [...]
--- OUTSIDE RECORDS SUMMARY | ~2019-07-14 | XMS | Encounter Summary ---
Demographics + + + | Address | [address] | | | [place] [address] | + + + | Home Phone [...] Author + + + | Author | [facility] | + + + | Organization | [facility] | + + + | Address | Unknown | + + + | Phone | Unavailable | + + + Support + + +---------+ + | Name | Relationship | Address | Phone | + + +---------+ + | Alexandria Dixon | ECON | Unknown | | + + +---------+ + Care Team Providers + +------+ + | Care Fisher Trap Name | Role | Phone | + +------+ + | No Pcp Per Patient | PCP | Unavailable | + +------+ + Encounter Details +--------+ + + + + | Date | Type | Department | Care Team | Description | +--------+ + + + + | 12/21/ | Hospital | Radiology/Imaging | | | | 2011 | Encounter | Lab at [facility] [address] | | | | | | [address] [place] Mailcode: | | | | | | [facility] [facility] | | | | | | Health and Healing, | | | | | | [place] [address], [facility] | | | | | | Floor [place], [place] | | | | | | [address] | | | | | | [phone] | | | +--------+ + + + [...] [address] | | | | | | [place], [place] | | | | | | [address] | | | | | | [phone] | | | | | | | | +--------+---------+ + + + documented as of this encounter Procedures + +--------+ + + + | Procedure Name | Priori | Date/Time | Associated Diagnosis | Comments | | | ty | | | | + +--------+ + + + | X-RAY SPINE THORACIC | Routin | 12/22/2011 | Thoracic cyst | Results for this | | 2 VIEWS | e | 2:52 PM | | procedure are in the | | | | PDT | | results section. | + +--------+ + + + documented in this encounter Results X-RAY SPINE THORACIC 2 VIEWS (12/22/2011 2:52 PM PDT) + + + + + + | Component | Value | Ref Range | Performed | Pathologist | | | | | At | Signature | + + + + + + | SPINE | STUDY: SPINE THORACIC 2 | | | | | THORACIC 2 | VIEWS 12/22/11 14:52:00 | | | | | VIEWS | HISTORY: Pain. | | | | | | COMPARISON: None. | | | | | | FINDINGS: The thoracic | | | | | | vertebral bodies are | | | | | | normal in height and | | | | | | alignment.The disk | | | | | | spaces are maintained | | | | | | with trace multilevel | | | | | | endplatespurring. No | | | | | | fracture or focal | | | | | | destruction is observed. | | | | | | Theparaspinal soft | | | | | | tissues are intact. | | | | | | IMPRESSION: Trace | | | | | | multilevel endplate | | | | | | spurring. Otherwise | | | | | | normal thoracic spine. | | | | | | Attending Radiologists: | | | | | | Mary Trejo, | | | | | | JohanAuthor: Mary Mendoza | | | | | | Johan Trejo I have | | | | | | personally viewed this | | | | | | procedure/exam, reviewed | | | | | | this report,and made | | | | | | changes to it where | | | | | | appropriate. 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
--- OUTSIDE RECORDS SUMMARY | ~2019-07-14 | XMS | Encounter Summary ---
Demographics + + + | Address | [address] | | | [place] [address] | + + + | Home Phone | | + + + | Preferred Language | Unknown | + + + | Marital Status | Single | + + + | Lutheran Affiliation | NON | + + + | Race | or | + + + | Ethnic Group | Not or | + + + Author + + + | Author | [facility] | + + + | Organization | [facility] | + + + | Address | Unknown | + + + | Phone | Unavailable | + + + Support + + +---------+ + | Name | Relationship | Address | Phone | + + +---------+ + | Alexandria Dixon | ECON | Unknown | | + + +---------+ + Care Team Providers + +------+ + | Care Business Analytics Intern Name | Role | Phone | + [...] Description | +--------+--------+ + + + | 01/01/ | Refill | Neurosurgery at | Donnie, | Refill Request | | 2010 | | [facility] [address] | [place]ie, | | | | | [place] Mailcode: CH8N | DNP,[place] [address] | | | | | [facility] | [address] [place], | | | | | and [facility], | [place] [address] | | | | | Building [address] | [phone] | | | | | [place], [place] | | | | | | [address] | | | | | | [phone] | | | +--------+--------+ + + + [...] Rd | | | | | | [place], [place] | | | | | | [address] | | | | | | [phone] | | | | | | | | +--------+---------+ + + + documented as of this encounter Visit Diagnoses Not on filedocumented in this encounter"
--- OUTSIDE RECORDS SUMMARY | ~2019-07-14 | XMS | Encounter Summary ---
Demographics + + + | Address | [address] | | | [place] [address] | + + + | Home Phone | | + + + | Preferred Language | Unknown | + + + | Marital Status | Single | + + + | Buddhist Affiliation | NON | + + + | Race | or | + + + | Ethnic Group | Not or | + + + Author + + + | Author | [place] [facility] | + + + | Organization | [facility] | + + + | Address | Unknown | + + + | Phone | Unavailable | + + + Support + + +---------+ + | Name | Relationship | Address | Phone | + + +---------+ + | Alexandria Dixon | ECON | Unknown | | + + +---------+ + Care Team Providers + +------+ + | Care School Psychologist Name | Role | Phone | + +------+ + | Jinny Bergeron MD | PCP | | + +------+ + Reason for Referral Diagnostic Testing (Routine) +--------+--------+ + + + + | Status | Reason | Specialty | Diagnoses / | Referred By | Referred To | | | | | Procedures | Contact | Contact | +--------+--------+ + + + + | Closed | | Radiology | Diagnoses | Donnie, | [facility] | | | | | Pituitary | Cathie, | [address] | | | | | adenoma | DNP,STRUCTURAL ARCHITECT,[place] | [facility]anner | | | | | (HCC) | [address] | | | | | Procedures | Ave | Mailcode: | | | | | MRI | [place], [place] | [address] | | | | | PITUITARY | [address] | [place] | | | | | WWO CONTRAST | Phone: | Research | | | | | [place] MRI | [phone] | [place] | | | | | BRAIN COMBO | Fax: | [place], [place] | | | | | | [phone] | [address] | | | | | | | Phone: | | | | | | | [phone] | | | | | | | Fax: | | | | | | | [phone] | +--------+--------+ + + + + Reason for Visit Diagnostic Testing (Routine) +--------+--------+ + + + + | Status | Reason | Specialty | Diagnoses / | Referred By | Referred To | | | | | Procedures | Contact | Contact | +--------+--------+ + + + + | Closed | | Radiology | Diagnoses | Yeque, | [facility] | | | | | Pituitary | Cathie, | [address] | | | | | adenoma | DNP,STRUCTURAL ARCHITECT,[place] | [address] [place]anner | | | | | ([facility]) | [address] | | | | | Procedures | Ave | Mailcode: | | | | | MRI | [place], [place] | [address] | | | | | PITUITARY | [address] | [place] | | | | | WWO CONTRAST | Phone: | Research | | | | | [place] MRI | [phone] | Center | | | | | BRAIN COMBO | Fax: | [facility] [place] | | | | | | [phone] | [address] | | | | | | | Phone: | | | | | | | [phone] | | | | | | | Fax: | | | | | | | [phone] | +--------+--------+ + + + + Encounter Details +--------+ + + + + | Date | Type | Department | Care Team | Description | +--------+ + + + + | 12/09/ | Hospital | Radiology/Imaging | | | | 2013 | Encounter | Lab at [facility] [address] | | | | | | [address] Mailcode: | | | | | | [facility] | | | | | | Health and Healing, | | | | | | Building 1, 3rd | | | | | | Floor [facility] [place] | | | | | | [address] | | | | | | [phone] | | | +--------+ + + + [...] Rd | | | | | | [place], [place] | | | | | | [address] | | | | | | [phone] | | | | | | | | +--------+---------+ + + + documented as of this encounter Procedures + +--------+ + + + | Procedure Name | Priori | Date/Time | Associated Diagnosis | Comments | | | ty | | | | + +--------+ + + + | MRI PITUITARY WWO | Routin | 12/09/2013 | Pituitary adenoma | Results for this | | CONTRAST | e | 12:13 PM | (HCC) | procedure are in the | | | | PDT | | results section. | + +--------+ + + + | CREATININE, POC | Routin | 12/09/2013 | | Results for this | | | e | 10:26 AM | | procedure are in the | | | | PDT | | results section. | + +--------+ + + + documented in this encounter Results MRI PITUITARY WWO CONTRAST (12/09/2013 12:13 PM PDT) + + + + + + | Component | Value | Ref Range | Performed | Pathologist | | | | | At | Signature | + + + + + + | MR | MRI Pituitary WITH AND | | | | | PITUITARY | WITHOUT CONTRAST, | | | | | WWO | 12/09/13 12:13:00. | | | | | CONTRAST | INDICATION: Pituitary | | | | | | adenomaCOMPARISON: May | | | | | | 2012 TECHNIQUE: | | | | | | Multiplanar, | | | | | | multi-sequence MR | | | | | | imaging of the entire | | | | | | brain andpituitary was | | | | | | performed with and | | | | | | without intravenous | | | | | | gadolinium contrast. | | | | | | FINDINGS: | | | | | | Skull/Marrow/Soft | | | | | | tissues: Unremarkable | | | | | | Orbits/Optic nerves: | | | | | | Normal Sinuses: The | | | | | | surgical changes are | | | | | | seen in the sphenoid | | | | | | sinuses. This | | | | | | isunchanged from the | | | | | | prior study. Brain: No | | | | | | significant cerebral | | | | | | abnormality. | | | | | | Specifically, no | | | | | | evidence | | | | | | ofhydrocephalus, | | | | | | neoplasm, | | | | | | infectious/inflammatory | | | | | | process, acute | | | | | | infarction,vascular | | | | | | lesion, or congenital | | | | | | abnormality. There is | | | | | | stable hemosiderin | | | | | | liningthe margins of the | | | | | | sella. The pituitary | | | | | | gland is stable in size | | | | | | and morphologyfrom the | | | | | | prior study. No mass | | | | | | identified. No areas of | | | | | | hypoenhancement. | | | | | | Enhancement: No | | | | | | abnormal enhancement. | | | | | | Additional Comments: | | | | | | None IMPRESSION:Stable | | | | | | postoperative changes in | | | | | | the paranasal sinuses | | | | | | and sella. No | | | | | | acuteprocess. No mass | | | | | | identified.. Attending | | | | | | Radiologists: DIMITRI | | | | | | CARLA BARRIENTOSuthor: | | | | | | DIMITRI BARRIENTOS MD I | | | | | | have personally viewed | | | | | | this procedure/exam, | | | | | | reviewed this report, | | | | | | and madechanges to it | | | | | | where appropriate. | | | | | | Final/Electronically | | | | | | signed / DIMITRI | | | | | | ILIANA 12/09/2013 12:39 | | | | | | PM | | | | + + + + + + + + | Specimen | + + | | + + + +---------+ + + | Performing | Address | City/State/Zipcode | Phone Number | | Organization | | | | + +---------+ + + | [facility]PART[facility] OF | | | | | RADIOLOGY | | | | + +---------+ + + ROUTINE CHEMISTRY TESTS (RADIOLOGY), POC (12/09/2013 10:26 AM PDT) + +-------+ + + + | Component | Value | Ref Range | Performed | Pathologist | | | | | At | Signature | + +-------+ + + + | CREATININE, | 0.7 | 0.7 - 1.3 mg/dL | [facility], | | | POC | | | POINT OF | | | | | | CARE TESTS | | + +-------+ + + + + + | Specimen | + + | | + + + + + + + | Performing | Address | City/State/Zipcode | Phone Number | | Organization | | | | + + + + + | [facility] | [address] | [place] [address] | | | OF CARE TESTS | | | | + + + + + documented in this encounter Visit Diagnoses + + | Diagnosis | + + | Pituitary adenoma (HCC) Benign neoplasm of pituitary gland and craniopharyngeal duct | | (pouch) | + + documented in this encounter"
--- OUTSIDE RECORDS SUMMARY | ~2019-07-14 | XMS | Encounter Summary ---
Demographics + + + | Address | [address] | | | [place] [address] | + + + | Home Phone [...] Author + + + | Author | [place] [facility] | + + + | Organization | [facility] | + + + | Address | Unknown | + + + | Phone | Unavailable | + + + Support + + +---------+ + | Name | Relationship | Address | Phone | + + +---------+ + | Alexandria Dixon | ECON | Unknown | | + + +---------+ + Care Team Providers + +------+ + | Care Senior Javascript Developer Name | Role | Phone | + +------+ + | Priscilla Ramírez PA-C | PCP | | + +------+ + Encounter Details +--------+ + + + + | Date | Type | Department | Care Team | Description | +--------+ + + + + | 08/26/ | Ancillary | Registration [address] | Donnie, | | | 2005 | Registratio | [facility] | Cathie | | | | n | Abdoulaye Mailcode: [id number] | DNP,RN CARDIOVASCULAR,[place] [address] | | | | | [place], [place] | [address] [place], | | | | | [address] | [place] [address] | | | | | [phone] | [phone] | | | | | | | [...] [address] | | | | | | [place] | | | | | | [address] | | | | | | [phone] | | | | | | | | +--------+---------+ + + + documented as of this encounter Visit Diagnoses Not on filedocumented in this encounter"
--- OUTSIDE RECORDS SUMMARY | ~2019-07-14 | XMS | Encounter Summary ---
Demographics + + + | Address | [address] | | | [place] [address] | + + + | Home Phone | | + + + | Preferred Language | Unknown | + + + | Marital Status | Single | + + + | Muslim Affiliation | NON | + + + | Race | or | + + + | Ethnic Group | Not or | + + + Author + + + | Author | [place] [facility] | + + + | Organization | [facility] | + + + | Address | Unknown | + + + | Phone | Unavailable | + + + Support + + +---------+ + | Name | Relationship | Address | Phone | + + +---------+ + | Alexandria Dixon | ECON | Unknown | | + + +---------+ + Care Team Providers + +------+ + | Care Carpenter Supervisor Name | Role | Phone | + +------+ + | Jhonny Rodriguez DO | PCP | | + +------+ + Encounter Details +--------+ + + + + | Date | Type | Department | Care Team | Description | +--------+ + + + + | 10/06/ | MyChart | Neurosurgery at | Donnie, | | | 2012 | Encounter | [facility] [address] | Cathie | | | | | [place] Mailcode: [id number] | DNP,ELECTROMECHANICAL EQUIPMENT TESTER,[place] [address] | | | | | [facility] | [address] [place], | | | | | and [place], | [place] [address] | | | | | [place] [address] | [phone] | | | | | [place], [place] | | | | | | [address] | | | | | | [phone] | | | +--------+ + + + [...] Rd | | | | | | [place], [place] | | | | | | [address] | | | | | | [phone] | | | | | | | | +--------+---------+ + + + documented as of this encounter Visit Diagnoses Not on filedocumented in this encounter"
--- OUTSIDE RECORDS SUMMARY | ~2019-07-14 | XMS | Encounter Summary ---
Demographics + + + | Address | [address] | | | [place] [address] | + + + | Home Phone [...] Author + + + | Author | [place] [facility] | + + + | Organization | [facility] | + + + | Address | Unknown | + + + | Phone | Unavailable | + + + Support + + +---------+ + | Name | Relationship | Address | Phone | + + +---------+ + | Alexandria Dixon | ECON | Unknown | | + + +---------+ + Care Team Providers + +------+ + | Care Rod Mill Tender Name | Role | Phone | [...] Description | +--------+--------+ + + + | 06/13/ | Refill | Neurosurgery at | Donnie, | Refill Request | | 2009 | | [facility] [address] | Cathie, | | | | | [place] Mailcode: [id number] | DNP,MECHANICAL FACILITIES TECHNICIAN,[place] [address] | | | | | [facility] | [address] [place], | | | | | and [facility], | [place] [address] | | | | | Building [address] | [phone] | | | | | [place], [place] | | | | | | [address] | | | | | | [phone] | | | +--------+--------+ + + + [...] Rd | | | | | | [place], [place] | | | | | | [address] | | | | | | [phone] | | | | | | | | +--------+---------+ + + + documented as of this encounter Visit Diagnoses Not on filedocumented in this encounter"
--- OUTSIDE RECORDS SUMMARY | ~2019-07-14 | XMS | Encounter Summary ---
Demographics + + + | Address | [address] | | | [place] [address] | + + + | Home Phone | | + + + | Preferred Language | Unknown | + + + | Marital Status | Single | + + + | Gnosticism Affiliation | NON | + + + | Race | or | + + + | Ethnic Group | Not or | + + + Author + + + | Organization | Unknown | + + + | Address | Unknown | + + + | Phone | Unavailable | + + + Support + + +---------+ + | Name | Relationship | Address | Phone | + + +---------+ + | Alexandria Dixon | ECON | Unknown | | + + +---------+ + Care Team Providers + +------+ + | Care Roll Trucker Name | Role | Phone | + +------+ + | Priscilla Ramírez PA-C | PCP | | + +------+ + Encounter Details +--------+--------+ + + + | Date | Type | Department | Care Team | Description | +--------+--------+ + + + | 02/24/ | Travel | | | | | 2018 | | | | | +--------+--------+ + + + [...] Rd | | | | | | [place] | | | | | | [address] | | | | | | [phone] | | | | | | | | +--------+---------+ + + + documented as of this encounter Visit Diagnoses Not on filedocumented in this encounter"
--- OUTSIDE RECORDS SUMMARY | ~2019-07-14 | XMS | Encounter Summary ---
Demographics + + + | Address | [address] | | | [place] [address] | + + + | Home Phone | | + + + | Preferred Language | Unknown | + + + | Marital Status | Single | + + + | Cheondoism Affiliation | NON | + + + | Race | or | + + + | Ethnic Group | Not or | + + + Author + + + | Author | [place] [facility] | + + + | Organization | [facility] | + + + | Address | Unknown | + + + | Phone | Unavailable | + + + Support + + +---------+ + | Name | Relationship | Address | Phone | + + +---------+ + | Alexandria Dixon | ECON | Unknown | | + + +---------+ + Care Team Providers + +------+ + | Care Barber Instructor Name | Role | Phone | + +------+ + | Priscilla Ramírez PA-C | PCP | | + +------+ + Encounter Details +--------+ + + + + | Date | Type | Department | Care Team | Description | +--------+ + + + + | 02/21/ | MyChart | Diagnostic Imaging | | Appointment Reminder | | 2019 | Encounter | Services [address] | | | | [address] | | | | | | [place], [place] | | | | | | [address] | | | +--------+ + + + [...] Rd | | | | | | [place], [place] | | | | | | [address] | | | | | | [phone] | | | | | | | | +--------+---------+ + + + documented as of this encounter Visit Diagnoses Not on filedocumented in this encounter"
--- OUTSIDE RECORDS SUMMARY | ~2019-07-14 | XMS | Encounter Summary ---
Demographics + + + | Address | [address] | | | [place] [address] | + + + | Home Phone | | + + + | Preferred Language | Unknown | + + + | Marital Status | Single | + + + | Jew Affiliation | NON | + + + | Race | or | + + + | Ethnic Group | Not or | + + + Author + + + | Author | [place] [facility] | + + + | Organization | [facility] | + + + | Address | Unknown | + + + | Phone | Unavailable | + + + Support + + +---------+ + | Name | Relationship | Address | Phone | + + +---------+ + | Alexandria Dixon | ECON | Unknown | | + + +---------+ + Care Team Providers + +------+ + | Care Smooth Plater Name | Role | Phone | + [...] Description | +--------+--------+ + + + | 09/30/ | Refill | Neurosurgery at | Donnie, | Refill Request | | 2011 | | [facility] [address] | Cathie, | | | | | [place] Mailcode: CH8N | DNP,PELLETIZER OPERATOR,[place] [address] | | | | | [facility] | [address] [place], | | | | | and Healing, | [place] [address] | | | | | Building [address] | [phone] | | | | | [place], [place] | | | | | | [address] | | | | | | [phone] | | | +--------+--------+ + + + [...] Rd | | | | | | [place], [place] | | | | | | [address] | | | | | | [phone] | | | | | | | | +--------+---------+ + + + documented as of this encounter Visit Diagnoses Not on filedocumented in this encounter"
--- OUTSIDE RECORDS SUMMARY | ~2019-07-14 | XMS | Encounter Summary ---
Demographics + + + | Address | [address] | | | [place] [address] | + + + | Home Phone | | + + + | Preferred Language | Unknown | + + + | Marital Status | Single | + + + | Amish Affiliation | NON | + + + | Race | or | + + + | Ethnic Group | Not or | + + + Author + + + | Author | [place] [employer] [facility] | + + + | Organization | [facility] | + + + | Address | Unknown | + + + | Phone | Unavailable | + + + Support + + +---------+ + | Name | Relationship | Address | Phone | + + +---------+ + | Alexandria Dixon | ECON | Unknown | | + + +---------+ + Care Team Providers + +------+ + | Care Paralegal Specialist Name | Role | Phone | + +------+ + | No Pcp Per Patient | PCP | Unavailable | + +------+ + Encounter Details +--------+------+ + + + | Date | Type | Department | Care Team | Description | +--------+------+ + + + | 12/04/ | Lab | Laboratory at [facility] | | Pituitary adenoma | | 2011 | | [address] | | ([facility]); 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[place], [place]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 | | | | [address] | | ([facility]); 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[facility]); | | | | | | Hypogonadism male; | | | | | | Hypothyroid; Adrenal | | | | | | insufficiency (HCC) | +--------+------+ + + + Social History + +-------+ [...] | | 2019 | Visit | | [address] | | | | | | [address] | | | | | | [place], [place] | | | | | | [address] | | | | | | [phone] | | | | | | | | +--------+---------+ + + + documented as of this encounter Procedures + +--------+ + + + | Procedure Name | Priori | Date/Time | Associated Diagnosis | Comments | | | ty | | | | + +--------+ + + + | BASIC METABOLIC SET | Routin | 12/05/2011 | Pituitary adenoma | Results for this | | (NA, K, CL, TCO2, | e | 2:45 PM | (HCC) Growth | procedure are in the | | BUN, CR, GLU, CA) | | PDT | hormone deficiency | results section. 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) | | | | | | Hypogonadism male | | | | | | Hypothyroid Adrenal | | | | | | insufficiency (HCC) | | + +--------+ + + + documented in this encounter Results TSH (12/05/2011 2:45 PM [...] Way Lab) [place] | REGIONAL | | [facility] [place] [address] [address] | LABORATORY | | [place] [address] | | + + + + + + + + | Performing | Address | City/State/Zipcode | Phone Number | | Organization | | | | + + + + + | [facility] | [address] | [place] [address] | | | LABORATORY | | | [...] Way Lab) [place] | [place] | | [place] [address] | REGIONAL | | [place] [address] | LABORATORY | + + + + + + + + | Performing | Address | City/State/Zipcode | Phone Number | | Organization | | | | + + + + + | [facility] | [address] | [place] [address] | | | LABORATORY | | | [...] At | + + + | [facility] [facility] [place] | [place] | | [place] [address] | REGIONAL | | [place] [address] | LABORATORY | + + + + + + + + | Performing | Address | City/State/Zipcode | Phone Number | | Organization | | | | + + + + + | [facility] | [address] | [place] [address] | | | LABORATORY | | | [...] At | + + + | [facility] ([facility] [place] | [place] | | [place] [address] [address] [facility] | REGIONAL | | [place] [address] | LABORATORY | + + + + + + + + | Performing | Address | City/State/Zipcode | Phone Number | | Organization | | | | + + + + + | [facility] | [address] | [place] [address] | | | LABORATORY | | | [...] + + | [facility] ([address] [facility]) [place] | [place] | | [facility] [place] [address] [facility] | [facility] | | [place] [address] | LABORATORY | + + + + + + + + | Performing | Address | City/State/Zipcode | Phone Number | | Organization | | | | + + + + + | [facility] | [address] [facility] | [place] [address] | | | LABORATORY | | | [...] | | | DEPARTMENT | | | [place] | | | OF | | | [...] | + + + + + | [facility] | [address] | [place] [address] | | | PATHOLOGY | [address] [...]
--- OUTSIDE RECORDS SUMMARY | ~2019-07-14 | XMS | Encounter Summary ---
Demographics + + + | Address | [address] | | | [place] [address] | + + + | Home Phone | | + + + | Preferred Language | Unknown | + + + | Marital Status | Single | + + + | Episcopalian Affiliation | Unknown | + + + | Race | Unknown | + + + | Ethnic Group | Unknown | + + + Author + + + | Author | [facility] | | | and [place] | + + + | Organization | [facility] | | | and [...] Team Providers + +------+ + | Care Technical Business Systems Analyst Name | Role | Phone | + +------+ + | Jinny Bergeron MD | PCP | | + +------+ + Encounter Details +--------+ + + + + | Date | Type | Department | Care Team | Description | +--------+ + + + + | 11/23/ | Hospital | [facility] | Conversion | Coronary artery | | 2016 | Encounter | [facility] | Transaction, | disease involving | | | | CLINICAL DECISION | Provider Unknown | [place] coronary | | | | [address] | [phone] | artery of [place] | | | | [place], [place] | | heart with other | | | | [address] | Jose Shelton Mitch | form of angina | | | | [phone] | MD [address] | pectoris ([facility]); | | | | | [place] | Coronary artery | | | | | [place] [address] | disease involving | | | | | [phone] | [place] coronary | | | | | | artery of [place] | | | | | | heart without angina | | | | | | pectoris | +--------+ + + + + Social [...] + + + | Blood Pressure | 139/70 | 07/02/2016 3:41 PM | | | | | PST | | + + + + + | Pulse | 66 | 07/02/2016 3:41 PM | | | | | PST | | + + + + + | Temperature | 36.8 C (98.2 F) | 07/02/2016 3:41 PM | | | | | PST | | + + + + + | Respiratory Rate | 17 | 07/02/2016 3:41 PM | | | | | PST | | + + + + + | Oxygen Saturation | - | - | | + + + + + | Inhaled Oxygen | - | - | | | Concentration | | | | + + + + + | Weight | 120.2 kg (265 lb) | 07/02/2016 3:41 PM | | | | | PST | | + + + + + | Height | 172.7 cm (5' 8") | 07/02/2016 3:41 PM | | | | | PST | | + + + + + | Body Mass Index | 40.29 | 07/02/2016 3:41 PM | | | | | PST | | + + + + + documented in this encounter Medications at Time [...] +---------+ + + | hydrocortisone | Take 5 mg by mouth | | 0 | | | | (CORTEF) 5 MG tablet | [...] + + documented as of this encounter Progress Notes Conversion Transaction, Provider Unknown - 07/02/2016 5:27 PM PSTFormatting of this note m ight be different from the original. Nurse Progress Note by Lety Smith RN at 07/02/161726 Author: Lety Smith RN Service: (none) Author Type: Silk Snapper Filed: 07/02/161740 Date of Service: 07/02/161726 Status: Signed X Ray Developer: Lety Smith RN (Registered Nurse) AVS and all discharge instructions reviewed with the patient and his family at this time, a nd they verbalized understanding of all instruction. Both IV's removed and all patient joão gings accounted for. PAIGE Hodgson clarified that there were no further questions prior to the patient's departure. Escorted patient out via wheelchair, and his mother will drive him fazal e in personal vehicle. The patient is stable at this time, and all questions and concerns tinsley ve been addressed. KAILA ROBLES docume nted in this encounter Plan of Treatment +--------+---------+ + + + | Date | Type | Specialty | Care Team | Description | +--------+---------+ + + + | 11/21/ | Office | Sleep Medicine | Sumanth Champion PA | | | 2019 | Visit | | [address] | | | | | | [place] | | | | | | [phone] | | | | | | | | +--------+---------+ + + + documented as of this encounter Procedures + +--------+ + + + | Procedure Name | Priori | Date/Time | Associated Diagnosis | Comments | | | ty | | | | + +--------+ + + + | EXTERNAL LAB: CBC | Routin | 07/02/2016 | | Results for this | | | e | 9:39 AM | | procedure are in the | | | | PST | | results section. | + +--------+ + + + | PROTIME INR | Routin | 07/02/2016 | | Results for this | | | e | 9:39 AM | | procedure are in the | | | | PST | | results section. | + +--------+ + + + | BASIC METABOLIC | Routin | 07/02/2016 | | Results for this | | PANEL | e | 9:39 AM | | procedure are in the | | | | PST | | results section. | + +--------+ + + + documented in this encounter Results Protime INR (07/02/2016 9:39 AM PST) + + + + + + | Component | Value | Ref Range | Performed | Pathologist | | | | | At | Signature | + + + + + + | INR | 1.0Comment: REFERENCE | | EXTERNAL | | | | RANGE:0.9 - 1.2 | | LAB | | | | NON-ANTICOAGULATED2.0 | | | | | | - 3.0 ALL OTHER | | | | | | THERAPEUTIC | | | | | | INDICATIONS2.5 - 3.5 | | | | | | MECHANICAL HEART VALVES, | | | | | | RECURRENT OR SYSTEMIC | | | | | | EMBOLISMTesting | | | | | | performed at [facility];[address] | | | | | | [address] [facility];[place], [place] | | | | | | [address] | | | | + + + + + + + + | Specimen | + + | Blood specimen | | (specimen) | + + + +---------+ + + | Performing | Address | City/State/Zipcode | Phone Number | | Organization | | | | + +---------+ + + | EXTERNAL LAB | | | | + +---------+ + + External Lab: CBC (07/02/2016 9:39 AM PST) + + + + + + | Component | Value | Ref Range | Performed | Pathologist | | | | | At | Signature | + + + + + + | WBC | 10.64Comment: Testing | 3.80 - 11.00 | EXTERNAL | | | | performed at [facility];[address] | K/uL | LAB | | | | [address];[place], [place] | | | | | | [address] | | | | + + + + + + | RED CELL | 6.23 (H)Comment: Testing | 4.20 - 5.70 | EXTERNAL | | | COUNT | performed at [facility];[address] | M/uL | LAB | | | | [address];[place] | | | | | | [address] | | | | + + + + + + | Hgb | 18.8 (H)Comment: Testing | 13.2 - 17.0 | EXTERNAL | | | | performed at [facility];[address] | g/dL | LAB | | | | [address];[place] | | | | | | [address] | | | | + + + + + + | Hematocrit, | 53.3 (H)Comment: Testing | 39.0 - 50.0 % | EXTERNAL | | | POC | performed at [facility];[address] | | LAB | | | | [address];[place] | | | | | | [address] | | | | + + + + + + | MCV | 85.6Comment: Testing | 80.0 - 100.0 fl | EXTERNAL | | | | performed at [facility];[address] | | LAB | | | | [address];[place] | | | | | | [address] | | | | + + + + + + | MCH | 30.1Comment: Testing | 27.0 - 34.0 pg | EXTERNAL | | | | performed at [facility];[address] | | LAB | | | | [address];[place] | | | | | | [address] | | | | + + + + + + | MCHC | 35.2Comment: Testing | 32.0 - 35.5 | EXTERNAL | | | | performed at [facility];[address] | g/dL | LAB | | | | [address];[place] | | | | | | [address] | | | | + + + + + + | RDW-CV | 42.0Comment: Testing | 37 - 53 fl | EXTERNAL | | | | performed at [facility];[address] | | LAB | | | | [address];[place] | | | | | | [address] | | | | + + + + + + | Platelet | 301Comment: Testing | 150 - 400 K/uL | EXTERNAL | | | Count | performed at [facility];[address] | | LAB | | | Plasma | [address];[place] | | | | | | [address] | | | | + + + + + + | MPV | 7.6Comment: Testing | fl | EXTERNAL | | | | performed at [facility];[address] | | LAB | | | | [address];[place] | | | | | | [address] | | | | + + + + + + | Differentia | AUTOMATEDComment: | | EXTERNAL | | | l Type | Testing performed at | | LAB | | | | [facility];[address];[place] [address] | | | | + + + + + + | % Segmented | 67.97Comment: Testing | % | EXTERNAL | | | | performed at [facility];[address] | | LAB | | | Neutrophils | [address];[place] | | | | | | [address] | | | | + + + + + + | % | 21.40Comment: Testing | % | EXTERNAL | | | Lymphocytes | performed at [facility];[address] | | LAB | | | | [address];[place] | | | | | | [address] | | | | + + + + + + | % Monocytes | 8.30Comment: Testing | % | EXTERNAL | | | | performed at [facility];[address] | | LAB | | | | [address];[place] | | | | | | [address] | | | | + + + + + + | % | 1.53Comment: Testing | % | EXTERNAL | | | Eosinophils | performed at [facility];[address] | | LAB | | | | [address];[place] | | | | | | [address] | | | | + + + + + + | % Basophils | 0.80Comment: Testing | % | EXTERNAL | | | | performed at [facility];[address] | | LAB | | | | [address];[place] | | | | | | [address] | | | | + + + + + + | Absolute | 7.23Comment: Testing | 1.90 - 7.40 | EXTERNAL | | | Segmented | performed at [facility];[address] | K/uL | LAB | | | Neutrophils | [address];[place] | | | | | | [address] | | | | + + + + + + | Absolute | 2.28Comment: Testing | 1.00 - 3.90 | EXTERNAL | | | Lymphocytes | performed at [facility];[address] | K/uL | LAB | | | | [address];[place] | | | | | | [address] | | | | + + + + + + | Absolute | 0.88 (H)Comment: Testing | 0.00 - 0.80 | EXTERNAL | | | Monocytes | performed at [facility];[address] | K/uL | LAB | | | | [address];[place] | | | | | | [address] | | | | + + + + + + | Absolute | 0.16Comment: Testing | 0.00 - 0.50 | EXTERNAL | | | Eosinophils | performed at [facility];[address] | K/uL | LAB | | | | [address];[place] | | | | | | [address] | | | | + + + + + + | Absolute | 0.09Comment: Testing | 0.00 - 0.10 | EXTERNAL | | | Basophils | performed at [facility];[address] | K/uL | LAB | | | | [address];[place] | | | | | | [address] | | | | + + + + + + + + | Specimen | + + | Blood specimen | | (specimen) | + + + +---------+ + + | Performing | Address | City/State/Zipcode | Phone Number | | Organization | | | | + +---------+ + + | EXTERNAL LAB | | | | + +---------+ + + Basic Metabolic Panel (07/02/2016 9:39 AM PST) + + + + + + | Component | Value | Ref Range | Performed | Pathologist | | | | | At | Signature | + + + + + + | Na | 139Comment: Testing | 135 - 145 | EXTERNAL | | | | performed at [facility];[address] | mmol/L | LAB | | | | [address];[place] | | | | | | [address] | | | | + + + + + + | K | 3.8Comment: Testing | 3.5 - 4.9 | EXTERNAL | | | | performed at [facility];[address] | mmol/L | LAB | | | | [address];[place] | | | | | | [address] | | | | + + + + + + | Cl | 104Comment: Testing | 99 - 109 mmol/L | EXTERNAL | | | | performed at [facility];[address] | | LAB | | | | [address];[place] | | | | | | [address] | | | | + + + + + + | CO2 | 27Comment: Testing | 23 - 32 mmol/L | EXTERNAL | | | | performed at [facility];[address] | | LAB | | | | [address];[place] | | | | | | [address] | | | | + + + + + + | Anion Gap | 12Comment: Testing | 5 - 20 mmol/L | EXTERNAL | | | | performed at [facility];[address] | | LAB | | | | [address];[place] | | | | | | [address] | | | | + + + + + + | Glucose, | 113 (H)Comment: Testing | 65 - 99 mg/dL | EXTERNAL | | | Fasting | performed at [facility];[address] | | LAB | | | | [address];[place] | | | | | | [address] | | | | + + + + + + | BUN | 10Comment: Testing | 8 - 25 mg/dL | EXTERNAL | | | | performed at [facility];[address] | | LAB | | | | [address];[place] | | | | | | [address] | | | | + + + + + + | Creatinine | 0.95Comment: Testing | 0.70 - 1.30 | EXTERNAL | | | | performed at [facility];[address] | mg/dL | LAB | | | | [address];[place] | | | | | | [address] | | | | + + + + + + | BUN/Creatin | 10Comment: Testing | | EXTERNAL | | | ine Ratio | performed at [facility];[address] | | LAB | | | | [address];[place] | | | | | | [address] | | | | + + + + + + | Calcium | 8.3 (L)Comment: Testing | 8.5 - 10.5 | EXTERNAL | | | | performed at [facility];[address] | mg/dL | LAB | | | | [address];[place] | | | | | | [address] | | | | + + + + + + | Estimated | >60Comment: GFR <60: | mL/min/1.73m2 | EXTERNAL | | | GFR | CHRONIC KIDNEY DISEASE, | | LAB | | | | IF FOUND OVER A 3 MONTH | | | | | | PERIOD.GFR <15: KIDNEY | | | | | | FAILURE.FOR | | | | | | AMERICANS, MULTIPLY THE | | | | | | CALCULATED GFR BY | | | | | | 1.210.Testing performed | | | | | | at [facility];[address];[place] [address] | | | | + + + + + + + + | Specimen | + + | Blood specimen | | (specimen) | + + + +---------+ + + | Performing | Address | City/State/Zipcode | Phone Number | | Organization | | | | + +---------+ + + | EXTERNAL LAB | | | | + +---------+ + + documented in this encounter Visit Diagnoses + + | Diagnosis | + + | 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
--- OUTSIDE RECORDS SUMMARY | ~2019-07-14 | XMS | Encounter Summary ---
Demographics + + + | Address | [address] | | | [place] [address] | + + + | Home Phone | | + + + | Preferred Language | Unknown | + + + | Marital Status | Single | + + + | Islam Affiliation | NON | + + + [...] Team Providers + +------+ + | Care Delivery Route Driver Name | Role | Phone | + +------+ + PCP | Unavailable | + +------+ + Encounter Details +--------+ + + + + | Date | Type | Department | Care Team | Description | +--------+ + + + + | 09/16/ | Inpatient | | Report, Inpatient | InPt Prog Notes | | 2006 | Progress | | Consultation | | | | Notes-Trans | | | | | | cribed | | | | +--------+ + + [...] documented as of this encounter Progress Notes Interface, Line Builder In - 09/30/2005 2:03 AM PST [id number] 09/16/2005 [id number] TOREY TRIVEDI V Consulting Physician: Lb Guillaume M.D., Ph.D. Consultation Date: 09/16/2005 Referring Physician: Reuben tSyles M.D. Reason For Requested Consultation: I was asked by Dr. Styles to evaluate this patient 1 day status post transsphenoidal resection of a pituitary macrolesion. I was asked to evaluate and assist with postsurgical management of endocrinopathies. This procedure was performed by Dr. Styles at [facility] on 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 This is a brief staff addendum to an inpatient Endocrinology initial consultation note for patient Amairani Tyler. The main consultation note is from Kojo Fields, note dated September 16, 2005. Please see that note for full details of history, physical, assessment, and plan. I concur with that note and plan as outlined. 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 Subjectively, postoperatively, the patient had extraordinary limited few complaints. He had no polyuria, polydipsia, headaches, or visual field disturbances. I answered all patient questions to completion. Objectively, the patient has no CSF leak or visual field deficits. Overall, the patient tolerated the procedure well. Please see that note by Kojo Fields for full details of consultation and recommendations. Lb Guillaume M.D., Ph.D. [facility] / GABY [id number] / [id number] / [id number] / cc: Reuben Styles M.D. Electronically signed by Lb Guillaume (Bill) 09-29-2005 08:06:41 AM documented i camila this encounter Plan of Treatment +--------+---------+ + + + | Date | Type | Specialty | Care Team | Description | +--------+---------+ + + + | 08/15/ | Office | Cardiology | Zuleika Hernandez, | | | 2020 | Visit | | [address] | | | | | | [address] | | | | | | [place] | | | | | | [address] | | | | | | [phone] | | | | | | | | +--------+---------+ + + + documented as of this encounter Visit Diagnoses Not on filedocumented in this encounter"
--- OUTSIDE RECORDS SUMMARY | ~2019-07-14 | XMS | Encounter Summary ---
Demographics + + + | Address | [address] | | | [place] [address] | + + + | Home Phone | | + + + | Preferred Language | Unknown | + + + | Marital Status | Single | + + + | Rastafarian Affiliation | NON | + + + | Race | or | + + + | Ethnic Group | Not or | + + + Author + + + | Author | [facility] | + + + | Organization | [facility] | + + + | Address | Unknown | + + + | Phone | Unavailable | + + + Support + + +---------+ + | Name | Relationship | Address | Phone | + + +---------+ + | Alexandria Dixon | ECON | Unknown | | + + +---------+ + Care Team Providers + +------+ + | Care Grab Jack Worker Name | Role | Phone | + +------+ + | Jinny Beregron MD | PCP | | + +------+ + Encounter Details +--------+ + + + + | Date | Type | Department | Care Team | Description | +--------+ + + + + | 06/27/ | Cnc Mechanic | Neurosurgery at | [place], | | | 2014 | | [facility] [address] | Cathie | | | | | [place] Mailcode: [id number] | DNP,NDT INSPECTOR,[place] [address] | | | | | [facility] | [address] [place], | | | | | and [place], | [place] [address] | | | | | [facility] | [phone] | | | | | Floor [place], [place] | | | | | | [address] | | | | | | [phone] | | | +--------+ + + + [...] [address] | | | | | | [place], [place] | | | | | | [address] | | | | | | [phone] | | | | | | | | +--------+---------+ + + + documented as of this encounter Visit Diagnoses Not on filedocumented in this encounter"
--- OUTSIDE RECORDS SUMMARY | ~2019-07-14 | XMS | Encounter Summary ---
Demographics + + + | Address | [address] | | | [place] [address] | + + + | Home Phone | | + + + | Preferred Language | Unknown | + + + | Marital Status | Single | + + + | Faith Affiliation | NON | + + + | Race | or | + + + | Ethnic Group | Not or | + + + Author + + + | Author | [place] [facility] | + + + | Organization | [facility] | + + + | Address | Unknown | + + + | Phone | Unavailable | + + + Support + + +---------+ + | Name | Relationship | Address | Phone | + + +---------+ + | Alexandria Dixon | ECON | Unknown | | + + +---------+ + Care Team Providers + +------+ + | Care Finishing Area Operator Name | Role | Phone | [...] | | | | | adenoma | DNP,MACHINE [place]AN[place] | DNP,MACHINE [place] CLEAN[place] | | | | | (HCC) Other | [address] | [address] | | | | | 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 | | | | | hypofunction | [place] | [place] | | | | | Pituitary | [address] | [address] | | | | | dwarfism | Phone: | Phone: | | | | | (HCC) | [phone] | [phone] | | | | | Glucocortico | Fax: | Fax: | | | | | id | [phone] | [phone] | | | | | deficiency | | | | | | | (HCC) | | | | | | | 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 | | | | | | | (HCC) | | | | | | | Procedures | | | | | | | SC | | | | | | | OFFICE/OUTPT | | | | | | | | | | | | | | VISIT,EST,LE | | | | | | | VL I SC | | | | | | | OFFICE/OUTPT | | | | | | | | | | | | | | VISIT,EST,LE | | | | | | | VL II SC | | | | | | | OFFICE/OUTPT | | | | | | | | | | | | | | VISIT,EST,LE | | | | | | | LISHA III SC | | | | | | | OFFICE/OUTPT | | | | | | | | | | | | | | VISIT,EST,LE | | | | | | | VL IV SC | | | | | | | EST PATIENT | | | | | | | LEVEL V | | | +--------+--------+ + + + + Encounter Details +--------+---------+ + + + | Date | Type | Department | Care Team | Description | +--------+---------+ + + + | 06/22/ | Office | Neurosurgery at | Donnie, | Pituitary adenoma | | 2015 | Visit | [facility] [address] | Cathie | ([facility]) (Primary Dx); | | | | Rosalva Mailcode: 8N | DNP,MACHINE FUR CLEANER,[place] [address] | 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[place] [facility] | [address] [place], | deficiency ([facility]); | | | | and Healing, | [place] [address] | Diabetes insipidus | | | | [address] | [phone] | ([facility]); Hypogonadism | | | | [place], [place] | | male; Postoperative | | | | [address] | | hypothyroidism; | | | | [phone] | | Adrenal | | | | | | insufficiency ([facility]) | +--------+---------+ + + + Social History [...] + + + | Blood Pressure | 120/81 | 06/22/2015 8:50 AM | | | | | PST | | + + + + + | Pulse | 85 | 06/22/2015 8:50 AM | | | | | PST | | + + + + + | Temperature | 36.7 C (98 F) | 06/22/2015 8:50 AM | | | | | PST | | + + + + + | Respiratory Rate | 18 | 06/22/2015 8:50 AM | | | | | PST | | + + + + + | Oxygen Saturation | - | - | | + + + + + | Inhaled Oxygen | - | - | | | Concentration | | | | + + + + + | Weight | 135.7 kg (299 lb 1.6 | 06/22/2015 8:50 AM | | | | oz) | PST | | + + + + + | Height | - | - | | + + + + + | Body Mass Index | 45.48 | 12/05/2011 1:01 PM | | | | | PDT | | + + + + + documented in this encounter Progress Notes Cathie Fields, SANIYA,MACHINE F[employer] CLEANER,[place] - 06/22/2015 9:24 AM PSTFormatting of this note might be di fferent from the original. Reason for visit. Amairani Tyler returns to pituitary clinic for interval review of pituitary symptoms and titration of hormone replacement. 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 Reuben Styles. He had a cardiac stent place 02/2011 after a n [place]. At this visit; Symptoms and Complaints: Headache: Worse (06/22/15911) Nausea: Worse (06/22/15911) Vomiting: Worse (06/22/15911) Temperature fluctuations: Worse (06/22/15911) Hot flashes: Worse (06/22/15911) Night sweats: Worse (06/22/15911) Surgery on Left arm 'elbow repair of ligament tear" Some blurry jono has had ophthalmology exam this summer Nausea and vomiting at times no appetite. Migraine Between his eyes, sleep to resolve but still has haeadache when he wakes, Is irri table and reacts to noises whith headaches, Started again over the pst few mnths Has had weight loss, feels associated with nausea and vomiting. Did have angio that was OK. 100% blockage in RCA but collaterals clear. No energy, sleeps a lot has worked less over the last 12 mth. Stools 'normal' No constipation or diarrhea, no blood in stool No Chest pain Reports Using testsoterone more irregularly. Sexual function ok Fatigued back pain no change. B/p labile Taking Thyroid regularly Uses CPAP regularly- not with recent URI Sleeps OK at noc No polyuria or polydipsia no nocturia Has quit red bull over a year ago. However he chews and swallows tobacco Hot flashes and some night sweats. Feels hot most of the time. No CTS sympotms LT4 175mcg x6/week Taking 40mg HC daily Exact date of onset of symptoms is unknown Review of systems negative other than as stated above. Physical Exam: Blood pressure 120/81, pulse 85, temperature 36.7 C (98 F), temperature source Forehead , resp. rate 18, weight 135.671 kg (299 lb 1.6 oz). General: A pleasant man who looks stated age in no acute distress, well nourished, and wel l developed. HEENT: Normocephalic and atraumatic. Pupils are equally responsive and reactive to light. E xtraocular movements are intact. Visual godinez are normal to confrontation as are the remain nicanor of cranial nerves. No acne, with facial plethora, and facial rounding, nofrontal bossi ng, protruding jaw, or gaps between the teeth. Neck: With dorsocervical hump or no supraclavicular fat pad filling. No lymphadenopathy or jugular vein distention. Thyroid is normal in size and texture without bruits. Heart: Regular rate and rhythm. No murmurs, rubs, or gallops. Lungs: Clear to auscultation. No rhonchi, rales, or wheezes. Abdomen: Positive bowel sounds, nontender, and nondistended. No organomegaly, truncal obes ity, no violaceous striae. Breasts: Without tenderness. : [...] BMP,IGF-1, TSH, Free T4, Testosterone, Prolactin pending Component Latest Ref Rng 11/14/2014 11/14/2014 11/14/201411/14/2014 2:34 PM 2:34 PM 2:34 PM 2:34 PM GLUCOSE, PLASMA (LAB) 60-99 mg/dL BUN, PLASMA (LAB) 6-20 mg/dL CREATININE PLASMA (LAB) 0.70-1.30 mg/dL EGFR - [place] >60 mL/min EGFR NON -[place] >60 mL/min SODIUM, PLASMA (LAB) 136-145 mmol/L [...] PLASMA (LAB) 0.70-1.30 mg/dL 0.81 EGFR - [place] >60 mL/min >60 EGFR NON -[place] >60 mL/min >60 SODIUM, PLASMA (LAB) 136-145 [...] mIU/L VITAMIN D 25 HYDROXY 30-80 ng/mL Assessment and discussion: Amairani Tyler is a 35yo male with 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 He underwent cardiac stenting after MRI 02/13. He reports he was doing well but started to feel fatigued at the beginning of the year but was stable until several months ago when he began develop headaches, vomiting, nausea and se will fatigue. He underwent cardiac cath and was noted to have RCA 100% occlusion but did tinsley ve collateral supply. Stent placement was attempted but failed. He denies further chest jose alfredo n but fatigue persists. He is no longer working long hours and has been taking more time o ff work. He reports no appetite and intermittent vomiting and has lost 10+ lb. He reports no stool changes or bleeding and no acid reflux. Recommend follow up with upper GI. He also underwent elbow tendon repair 04/24. He increased his HC to 40mg daily and has cont inued this dose. Recommend he slowly decrease dose again by 5mg every week until he is takin g previous dose of 25mg daily. Pt reports his has been taking meds regularly because he was feeling poorly and thought thi s may be the cause. Will recheck all levels. He is unclear of his dose of LT4 current with last RC for 125mcg daily. Will follow up with MRI for new onset headaches to evaluate for r ecurrent tumor. I answered pt, SO and mother's questions to their satisfaction. Plan 1. Adrenals. Pt will taper HC dose to 25mg hydrocortisone daily. He is instructed to take ER steroids up to 40mg extra for illness, injury, fever, vomiting from any cause and to the n taper dose back to 25mg after 3-5 days. 2. Testosterone level pending. Pt reports he has been using topical gel prep regularly over the past few months. 3. Growth hormone. IGF-1 pending. Pt is GH deficient.He has been using GH regularly by re port. No changes anticipated. 4. Thyroid. TSH, FT4 pending. Will increase dose if FT4 is not in mid to upper range of nor mal. 5. DI.Appears controlled. BMP pending. No change in DDAVp anticiapted. 6. Vitamin D insufficiency. Level pending. Previous dose D3 3,000IU daily 7. Follow up in 6 mths 11/23. With labs MRI now. CATHIE FIELDS DNP, MACHINE FUR CLEANER, [place] Recreation Coordinator [facility] [place] [address] [facility] [address] Component Latest Ref Rng 06/22/2015 06/22/2015 06/22/2015 10:26 AM 10:26 AM 10:26 AM GLUCOSE, PLASMA (LAB) 60-99 mg/dL BUN, PLASMA (LAB) 6-20 mg/dL CREATININE PLASMA (LAB) 0.70-1.30 mg/dL EGFR - [place] >60 mL/min EGFR NON -[place] >60 mL/min SODIUM, PLASMA (LAB) 136-145 mmol/L POTASSIUM, PLASMA (LAB) 3.4-5.0 mmol/L CHLORIDE, PLASMA (LAB) 97-108 mmol/L TOTAL CO2, PLASMA (LAB) 21-32 mmol/L CALCIUM, PLASMA (LAB) 8.6-10.2 mg/dL ANION GAP POTASSIUM CMNT FREE T4, SERUM 0.6-1.2 ng/dL PROLACTIN 3 - 13 ng/mL TSH 0.39-4.17 mIU/L 0.61 HEMOGLOBIN A1C <5.7 % 7.9 (H) PSA,TOTAL,SCREENING <=2.50 ng/mL 0.24 Component Latest Ref Rng 06/22/2015 06/22/2015 06/22/2015 10:26 AM 10:26 AM 10:26 AM GLUCOSE, PLASMA (LAB) 60-99 mg/dL 141 (H) BUN, PLASMA (LAB) 6-20 mg/dL 11 CREATININE PLASMA (LAB) 0.70-1.30 mg/dL 0.95 EGFR - [place] >60 mL/min >60 EGFR NON -[place] >60 mL/min >60 SODIUM, PLASMA (LAB) 136-145 mmol/L 140 POTASSIUM, PLASMA (LAB) 3.4-5.0 mmol/L 3.8 CHLORIDE, PLASMA (LAB) 97-108 mmol/L 105 TOTAL CO2, PLASMA (LAB) 21-32 mmol/L 26 CALCIUM, PLASMA (LAB) 8.6-10.2 mg/dL 9.0 ANION GAP 9 POTASSIUM CMNT No Hemo FREE T4, SERUM 0.6-1.2 ng/dL 1.2 PROLACTIN 3 - 13 ng/mL 4 TSH 0.39-4.17 mIU/L HEMOGLOBIN A1C <5.7 % PSA,TOTAL,SCREENING <=2.50 ng/mL Plan. 1. Adrenal Fx: Taper HC to 25mg daily 2. Thryoid level OK 3. GLucose : HA1C elevated. Will increase metformin in am and recheck pt compliance with me ds. Recheck HA1c in 2-3 months locally 4. Follow up for GI eval. CATHIE FIELDS DNP, TOMER, [place] Recreation Coordinator [facility] [address] [facility] [address] documented in this encounter Plan of Treatment +--------+---------+ + + + | Date | Type | Specialty | Care Team | Description | +--------+---------+ + + + | 08/15/ | Office | Cardiology | Zuleika Hernandez, | | | 2019 | Visit | | [address] | | | | | | [address] | | | | | | [place], [place] | | | | | | [address] | | | | | | [phone] | | | | | | | | +--------+---------+ + + + documented as of this encounter Results PSA TOTAL, SCREENING, SERUM (06/22/2015 10:26 AM PST) + +-------+ + + + | Component | Value | Ref Range | Performed | Pathologist | | | | | At | Signature | + +-------+ + + + | PSA,TOTAL,S | 0.24 | <=2.50 ng/mL | [facility] | | | CREENING | | | LABORATORY | | | | | | SERVICES, | | | | | | CORE | | + +-------+ + + + + + | Specimen | + + | Blood - Blood | | (substance) | + + + + + | Narrative | Performed At | + + + | New method and performing lab effective 02/28/15. | [facility] | | | LABORATORY | | | SERVICES, CORE | + + + + + + + + | Performing | Address | City/State/Zipcode | Phone Number | | Organization | | | | + + + + + | [facility] | [address] | [place] [address] | | | SERVICES, CORE | [address] | | | + + + + + HEMOGLOBIN A1C, BLOOD (06/22/2015 10:26 AM PST) + + + + + + | Component | Value | Ref Range | Performed | Pathologist | | | | | At | Signature | + + + + + + | HEMOGLOBIN | 7.9 (H)Comment: Hbg A1c | <5.7 % | [facility] | | | A1C | Interpretive | | LABORATORY | | | | Information: | | SERVICES, | | | | <5.7% - Normal | | SPECIAL IMM | | | | 5.7-6.4% - Consistent | | + COAG | | | | with pre-diabetes | | | | | | >6.4% - Consistent with | | | | | | diabetes | | | | + + + + + + + + | Specimen | + + | Blood - Blood | | (substance) | + + + + + + + | Performing | Address | City/State/Zipcode | Phone Number | | Organization | | | | + + + + + | [phone] | [address] | [place] [address] | | | SERVICES, SPECIAL | [address] | | | | IMM + COAG | | | | + + + + + VITAMIN D, 25-HYDROXY, SERUM (06/22/2015 10:26 AM PST) + + + + + + | Component | Value | Ref Range | Performed | Pathologist | | | | | At | Signature | + + + + + + | VITAMIN D | 28.7 (L) | 30 - 80 ng/mL | [facility] | | | 25 HYDROXY | | | LABORATORY | | | | | | SERVICES, | | | | | | SPECIAL IMM | | | | | | + COAG | | + + + + + + + + | Specimen | + + | Blood - Blood | | (substance) | + + + + + | [...] + | [facility] | [address] | [place] [address] | | | SERVICES, SPECIAL | [address] | | | | IMM + COAG | | | | + + + + + TSH (06/22/2015 10:26 AM PST) + +-------+ + + + | Component | Value | Ref Range | Performed | Pathologist | | | | | At | Signature | + +-------+ + + + | TSH | 0.61 | 0.39 - 4.17 | [facility] | | | | | mIU/L | LABORATORY | | | | | | SERVICES, | | | | | | CORE | | + +-------+ + + + + + | Specimen | + + | Blood - Blood | | (substance) | + + + + + | [...] | + + + + + | [facility] | [address] | [place] [address] | | | SERVICES, CORE | [address] | | | + + + + + TESTOSTERONE, SERUM (06/22/2015 10:26 AM PST) + + + + + + | Component | Value | Ref Range | Performed | Pathologist | | | | | At | Signature | + + + + + + | TESTOSTERON | 87 (L)Comment: Total | 300 - 1080 | [facility] | | | E, ADULT | testosterone values may | ng/dL | REG UNIV | | | MALE | not reflect optimal | | PTH - [facility] | | | | concentrations in all | | | | | | individuals. Free or | | | | | | bioavailable | | | | | | testosterone | | | | | | measurements may provide | | | | | | supportive | | | | | | information.REFERENCE | | | | | | INTERVAL: Testosterone, | | | | | | Adult Male Access | | | | | | complete set of age- | | | | | | and/or gender-specific | | | | | | reference intervals for | | | | | | this test in the [facility] | | | | | | Laboratory Test | | | | | | Directory | | | | | | ([employer]).Performed | | | | | | by [address] | | | | | | [address], [facility],[place] | | | | | | [id number] | | | | | | [phone].[email or web address]. | | | | | | [facility], Dariel Tobin, | | | | | | , Lab. Director | | | | + + + + + + + + | Specimen | + + | Blood - Blood | + + + + + + + | Performing | Address | City/State/Zipcode | Phone Number | | Organization | | | | + + + + + | [facility] | [address] | [place], [place] | | | UNIV PTH - [facility] | | [address] | | + + + + + PROLACTIN, SERUM (06/22/2015 10:26 AM PST) + +-------+ + + + | Component [...] + | [facility] | [address] | [place] [address] | | | [facility] | | | | + + + + + INSULIN GROWTH FACTOR-1, SERUM (06/22/2015 10:26 AM PST) + +---------+ + + + | Component | Value | Ref Range | Performed | Pathologist | | | | | At | Signature | + +---------+ + + + | IGF-1 | 110 (L) | 116 - 353 ng/mL | [facility] | | | | | [facility] | | | | | | [place] | | + +---------+ + + + + + | Specimen | + + | Blood - Blood | + + + + + + + | Performing | Address | City/State/Zipcode | Phone Number | | Organization | | | | + + + + + | [facility] | [address] | [place] [address] | | | [place] | | | | + + + + + FREE T4 (06/22/2015 10:26 AM PST) + +-------+ + + + | Component | Value | Ref Range | Performed | Pathologist | | | | | At | Signature | + +-------+ + + + | FREE T4 | 1.2 | 0.6 - 1.2 ng/dL | [facility] | | | | | | LABORATORY | | | | | | SERVICES, | | | | | | CORE | | + +-------+ + + + + + | Specimen | + + | Blood - Blood | | (substance) | + + + + + + + | Performing | Address | City/State/Zipcode | Phone Number | | Organization | | | | + + + + + | [facility] | [address] | [place] [address] | | | SERVICES, CORE | [address] | | | + + + + + BASIC METABOLIC SET (NA, K, CL, TCO2, BUN, CR, GLU, CA) (06/22/2015 10:26 AM PST) + +---------+ + + + | Component | Value | Ref Range | Performed | Pathologist | | | | | At | Signature | + +---------+ + + + | GLUCOSE, | 141 (H) | 60 - 99 mg/dL | [facility] | | | PLASMA | | | LABORATORY | | | (LAB) | | | SERVICES, | | | | | | CORE | | + +---------+ + + + | BUN, PLASMA | 11 | 6 - 20 mg/dL | [facility] | | | (LAB) | | | LABORATORY | | | | | | SERVICES, | | | | | | CORE | | + +---------+ + + + | CREATININE | 0.95 | 0.70 - 1.30 | [facility] | | | PLASMA | | mg/dL | LABORATORY | | | (LAB) | | | SERVICES, | | | | | | CORE | | + +---------+ + + + | EGFR | >60 | >60 mL/min | [facility] | | | - | | | LABORATORY | | | [place] | | | SERVICES, | | | [...] +---------+ + + + | POTASSIUM, | 3.8 | 3.4 - 5.0 | [facility] | [...] + | TOTAL CO2, | 26 | 21 - 32 mmol/L | [facility] | | | PLASMA | | | LABORATORY | | | (LAB) | | | SERVICES, | | | | | | CORE | | + +---------+ + + + | CALCIUM, | 9.0 | 8.6 - 10.2 | [facility] | | | PLASMA | | mg/dL | LABORATORY | | | (LAB) | | | SERVICES, | | | | | | CORE | | + +---------+ + + + | ANION GAP | 9 | mmol/L | [facility] | | | [...] + + | Blood - Blood | | (substance) | + + + + + | [...] | + + + + + | [facility] | [address] | [place] [address] | | | SERVICES, CORE | [address] | | | + + + + + documented in this encounter Visit Diagnoses + + | Diagnosis | + + | Pituitary adenoma (HCC) - Primary Benign neoplasm of pituitary gland and | | craniopharyngeal duct (pouch) | + + | 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
--- OUTSIDE RECORDS SUMMARY | ~2019-07-14 | XMS | Encounter Summary ---
Demographics + + + | Address | [address] | | | [place] [address] | + + + | Home Phone | | + + + | Preferred Language | Unknown | + + + | Marital Status | Single | + + + | Christian Affiliation | Unknown | + + + | Race | Unknown | + + + | Ethnic Group | Unknown | + + + Author + + + | Author | [facility] | | | and [place] | + + + | Organization | [facility] | | | and [place] [...] Team Providers + +------+ + | Care Management Internship Name | Role | Phone | + +------+ + | Jinny Bergeron MD | PCP | | + +------+ + Reason for Visit + + + | Reason | Comments | + + + | Follow-up | nsoe surgery | + + + Evaluate & Treat (Routine) +--------+--------+ + + + + | Status | Reason | Specialty | Diagnoses / | Referred By | Referred To | | | | | Procedures | Contact | Contact | +--------+--------+ + + + + | Closed | | Otolaryngolog | Diagnoses | Rubio, | Mckay Zafar | | | | y | 2 week | MD Jinny | MD Josef [address] | | | | | follow up, | [address] | | | | | nose/self/Ae | [address] [place] | [address] | | | | | tna/[place] | [place], [place] | [place], | | | | | Procedures | [address] | [place] [address] | | | | | OFFICE VISIT | Phone: | Phone: | | | | | REGULAR | [phone] | [phone] | | | | | | Fax: | Fax: | | | | | | [phone] | [phone] | +--------+--------+ + + + + Encounter Details +--------+---------+ + + + | Date | Type | Department | Care Team | Description | +--------+---------+ + + + | 05/21/ | Office | [facility] | Mckay Zafar MD | Hypertrophy of nasal | | 2016 | Visit | OTOLARYNGOLOGY [address] | [address] [place] | turbinates (Primary | | | | [address] | [address] [place], | Dx); 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[place], [place] | [place] [address] | septum; Hypertrophy | | | | [address] | [phone] | of tonsils alone; | | | | [phone] | | Obstructive sleep | | | | | | apnea (adult) | | | | | | (pediatric) | +--------+---------+ + + + Social History [...] + + + | Blood Pressure | - | - | | + + + + + | Pulse | 101 | 05/21/2016 9:03 AM | | | | | PDT | | + + + + + | Temperature | - | - | | + + + + + | Respiratory Rate | 16 | 05/21/2016 9:03 AM | | | | | PDT | | + + + + + | Oxygen Saturation | 96% | 05/21/2016 9:03 AM | | | | | PDT | | + + + + + | Inhaled Oxygen | - | - | | | Concentration | | | | + + + + + | Weight | 120.2 kg (265 lb) | 05/21/2016 9:03 AM | | | | | PDT | | + + + + + | Height | 172.7 cm (5' 8") | 05/21/2016 9:03 AM | | | | | PDT | | + + + + + | Body Mass Index | 40.29 | 05/21/2016 9:03 AM | | | | | PDT | | + + + + + documented in this encounter Progress Notes Mckay Zafar MD - 05/21/2016 7:34 PM PDT [facility] OTOLARYNGOLOGY [address] [place] [id number] OFFICE NOTE MCKAY ZAFAR MD Patient: FAROOQ LEMA Admitting: MR #: [id number] LOC: PT TYPE: Adm Date: 05/21/2016 : 1980 ADDENDUM: The patient was seen postoperatively for his nasal passages, which are healing very nicely. He has obstructive sleep apnea and prior to this visit, he is noted also to h ave very large tonsils causing obstruction in the throat area. He had plans to have the to nsillectomy once his nose had healed and today, he is rechecked in the tonsillar throat ar ea. His tonsils are at the +3 size. They are just short of coming to the midline and cert ainly would be an important part of his obstructive sleep apnea. The tongue itself is a 2/ 4. The uvula is slightly elongated, but the main problem appears to be the large tonsils. IMPRESSION: Severely hypertrophic tonsils with upper airway obstruction and known obstruc tive sleep apnea. PLAN: The patient will be scheduled to have his tonsils removed. The risks and benefits of surgery were discussed well with the patient. He desires to move forward and this will be scheduled accordingly. MCKAY ZAFAR MD Dictated by MCKAY ZAFAR MD 05/21/2016 19:34:05 Transcribed on 05/22/2016 16:24:45 by job# [id number] Confirmation #: [id number] cc: JINNY [facility]GERON [facility] - 05/21/2016 7:31 PM PDT [facility] OTOLARYNGOLOGY [address] [place] [id number] OFFICE NOTE MCKAY ZAFAR MD Patient: FAROOQ LEMA Admitting: MR #: [id number] LOC: PT TYPE: Adm Date: 05/21/2016 : 1980 DATE OF VISIT: 05/21/2016. The patient is postoperative septoplasty and inferior turbinoplasty. He comes in for a fo llowup visit. He had a lot of mucus and debris in both sides of his nose. Both sides were sprayed well with some Aristides-Synephrine and topical Xylocaine and then cleaned with a Hartinocente n forceps and suction. Once cleaned, there was good space for breathing on both sides. T here is no evidence of any adhesions, and the patient appears to be healing well. He is ad vised to blow his nose firmly to continue with the washings and to recheck with ENT if ther e are any further problems. MCKAY ZAFAR MD Dictated by MCKAY ZAFAR MD 05/21/2016 19:31:13 Transcribed on 05/22/2016 16:26:09 by naz job# [id number] Confirmation #: [id number] cc: JINNY BERGERON MD [facility], Mckay Bahena MD - 05/21/2016 7:29 PM PDTSee dictation # [id number] signed by Mckay Zafar MD at 05/21/2016 7:35 PM PDTdosonu stanley in this encounter Plan of Treatment +--------+---------+ + + + | Date | Type | Specialty | Care Team | Description | +--------+---------+ + + + | 11/21/ | Office | Sleep Medicine | Sumanth Champion PA | | | 2019 | Visit | | [address] | | | | | | [place] | | | | | | [address] | | | | | | | | +--------+---------+ + + + documented as of this encounter Visit Diagnoses + + | Diagnosis | + + | Hypertrophy of nasal turbinates - Primary | + + | Deviated nasal septum | + + | Hypertrophy of tonsils alone | + + | Obstructive sleep apnea (adult) (pediatric) | + + documented in this encounter
--- OUTSIDE RECORDS SUMMARY | ~2019-07-14 | XMS | Encounter Summary ---
Demographics + + + | Address | [address] | | | [place] [address] | + + + | Home Phone | | + + + | Preferred Language | Unknown | + + + | Marital Status | Single | + + + | Nondenominational Affiliation | NON | + + + | Race | or | + + + | Ethnic Group | Not or | + + + Author + + + | Author | [facility] | + + + | Organization | [facility] | + + + | Address | Unknown | + + + | Phone | Unavailable | + + + Support + + +---------+ + | Name | Relationship | Address | Phone | + + +---------+ + | Alexandria Dixon | ECON | Unknown | | + + +---------+ + Care Team Providers + +------+ + | Care Clinical Quality Assurance Specialist Name | Role | Phone | [...] Description | +--------+--------+ + + + | 08/31/ | Refill | Neurosurgery at | Donnie, | Refill Request | | 2014 | | [facility] [address] | [place], | | | | | [place] Mailcode: [id number] | DNP,MAT LINKER,[place] [address] | | | | | [facility] | [address] [place], | | | | | and Healing, | [place] [address] | | | | | [address] | [phone] | | | | | [place], [place] | | | | | | [address] | | | | | | [phone] | | | +--------+--------+ + + + [...] Rd | | | | | | [place], [place] | | | | | | [address] | | | | | | [phone] | | | | | | | | +--------+---------+ + + + documented as of this encounter Visit Diagnoses Not on filedocumented in this encounter"
--- OUTSIDE RECORDS SUMMARY | ~2019-07-14 | XMS | Encounter Summary ---
Demographics + + + | Address | [address] | | | [place] [address] | + + + | Home Phone | | + + + | Preferred Language | Unknown | + + + | Marital Status | Single | + + + | Yarsani Affiliation | Unknown | + + + | Race | Unknown | + + + | Ethnic Group | Unknown | + + + Author + + + | Author | [facility] | | | and [place] | + + + | Organization | [facility] | | | and [place] [...] Team Providers + +------+ + | Care Health Education Assistant Name | Role | Phone | + +------+ + | Bren Arango PA-C | PCP | | + +------+ + Reason for Visit Evaluate & Treat (Routine) +--------+ + + + + + | Status | Reason | Specialty | Diagnoses / | Referred By | Referred To | | | | | Procedures | Contact | Contact | +--------+ + + + + + | Closed | Specialty | Oncology | Diagnoses | Darrell, | Marco, | | | Services | | | Priscilla Galarza, | Jimmy Galarza MD | | | Required | | erythrocytos | PA-C [address] | [address] | | | | | is | | STREET | | | | | Procedures | [place] | [place], | | | | | [place] OFFICE | WAY | [place] [address] | | | | | OUTPATIENT | [place], | Phone: | | | | | VIS[address] | [place] [address] | [phone] | | | | | MINUTES | Phone: | Fax: | | | | | | [phone] | [phone] | | | | | | Fax: | | | | | | | [phone] | | +--------+ + + + + + Encounter Details +--------+ + + + + | Date | Type | Department | Care Team | Description | +--------+ + + + + | 06/09/ | Hospital | [facility] | Jimmy Lara, | Erythrocytosis | | 2018 | Encounter | [facility] | [address] | (Primary Dx); | | | | [facility] [address] | [place], | Pituitary adenoma | | | | [address] | [place] [address] | (HCC) | | | | [facility] [address] | [phone] | | | | | [phone] | | | +--------+ + + + [...] + + + | Blood Pressure | 145/74 | 06/09/2018 11:00 AM | | | | | PDT | | + + + + + | Pulse | 54 | 06/09/2018 11:00 AM | | | | | PDT | | + + + + + | Temperature | 36.6 C (97.9 F) | 06/09/2018 11:00 AM | | | | | PDT | | + + + + + | Respiratory Rate | 16 | 06/09/2018 11:00 AM | | | | | PDT | | + + + + + | Oxygen Saturation | 97% | 06/09/2018 11:00 AM | | | | | PDT | | + + + + + | Inhaled Oxygen | - | - | | | Concentration | | | | + + + + + | Weight | 123.4 kg (272 lb 0.8 | 06/09/2018 11:00 AM | | | | oz) | PDT | | + + + + + | Height | 172.7 cm (5' 8") | 06/09/2018 11:00 AM | | | | | PDT | | + + + + + | Body Mass Index | 41.36 | 06/09/2018 11:00 AM | | | | | PDT | | + + + + + documented in this encounter Medications at Time of Discharge + + + +---------+ + + | Medication | Sig | Dispensed | Refills | Start | End Date | | | | | | Date | | + + + +---------+ + + | ALPRAZolam (XANAX) | Take 0.5 mg by mouth | | 0 | | | | 0.5 mg tablet | 3 times daily as | | | | | | | needed for Anxiety. | | | | | + + + +---------+ + + | amLODIPine | Take 10 mg by mouth | | 0 | | | | (NORVASC) 10 MG | Daily. | | | | | | tablet | | | | | | + + + +---------+ + + | aspirin 81 mg EC | Take 81 mg by mouth | | 0 | | | | tablet | Daily. | | [...] + + + +---------+ + + | clopidogrel | Take 75 mg by mouth | | 0 | | | | (PLAVIX) 75 mg | Daily. | | | | | | tablet | | | | | | + + + +---------+ + + | cyclobenzaprine | Take 10 mg by mouth | | 0 | | | | (FLEXERIL) 10 mg | 3 times daily as | | | | | | tablet | needed for Muscle | | | | | | | spasms. | | | | | + + [...] + + + +---------+ + + | fenofibrate | Take 145 mg by mouth | | 0 | | | | (TRICOR) 145 mg | Daily. | | | | | | tablet | | | | | | + + + +---------+ + + | fexofenadine | Take 180 mg by mouth | | 0 | | | | (ADINA) 180 mg | as needed. | | | | | | tablet [...] + + + +---------+ + + | hydrocortisone, | Inject 50 mg into | | 0 | | | | PF, (SOLU-CORTEF) 50 | the vein as needed | | | | | | mg/mL injection | (adrenal shock). | | | | | + + + +---------+ + + | levothyroxine | | | 0 | 03/22/20 | | | (SYNTHROID) 125 mcg | | | | 18 | | | tablet | | | [...] | | 0 | | | | (PRINIVIL,ZESTRIL) | Daily. | | | | | | 40 MG tablet | | [...] + + + +---------+ + + | pseudoePHEDrine | Take 60 mg by mouth | | 0 | | | | (SUDAFED) 60 MG | Daily as needed for | | | | | | tablet | Congestion. | | | | | + + + +---------+ + + | ranolazine | Take 500 mg by mouth | | 0 | | | | (RANEXA) 500 mg 12 | 2 times daily. | | | | | | hr tablet | | | | | | + + + +---------+ + + | sertraline | Take 75 mg by mouth | | 0 | | | | (ZOLOFT) 50 mg | Daily. [...] + +---------+ + + | testosterone | Inject 200 mg into | | 0 | | | | cypionate | the muscle every 14 | | | | | | (DEPO-TESTOSTERONE) | days. | | | | | | 200 mg/mL injection | | | | | | + + + +---------+ + + documented as of this encounter Plan of Treatment +--------+---------+ + + + | Date | Type | Specialty | Care Team | Description | +--------+---------+ + + + | 11/21/ | Office | Sleep Medicine | Sumanth Champion PA | | | 2019 | Visit | | [address] | | | | | | [place] | | | | | | [id number] | | | | | | | | +--------+---------+ + + + documented as of this encounter Procedures + +--------+ + + + | Procedure Name | Priori | Date/Time | Associated Diagnosis | Comments | | | ty | | | | + +--------+ + + + | JAK2 MUTATION PANEL | STAT | 06/09/2018 | Erythrocytosis | Results for this | | | | 11:28 AM | | procedure are in the | | | | PDT | | results section. | + +--------+ + + + | ERYTHROPOIETIN | Routin | 06/09/2018 | Erythrocytosis | Results for this | | | e | 11:28 AM | | procedure are in the | | | | PDT | | results section. | + +--------+ + + + | CBC WITH | STAT | 06/09/2018 | Erythrocytosis | Results for this | | DIFFERENTIAL | | 11:28 AM | | procedure are in the | | | | PDT | | results section. | + +--------+ + + + | LABS - EXTERNAL SCAN | | 2018 | | Results for this | | | | 12:00 AM | | procedure are in the | | | | PDT | | results section. | + +--------+ + + + documented in this encounter Results JAK2 Mutation Panel (06/09/2018 11:28 AM PDT) + + + + + + | Component | Value | Ref Range | Performed | Pathologist | | | | | At | Signature | + + + + + + | JAK2 V617F, | CommentComment: Result: | | REFERENCE | | | BLD | NEGATIVE for the JAK2 | | [facility] | | | | V617F | | - BKR | | | | mutation.Interpretation: | | | | | | The G to T nucleotide | | | | | | change encoding the | | | | | | [id number] was not | | | | | | detected. This result | | | | | | does not rule out the | | | | | | presenceof the JAK2 | | | | | | mutation at a level | | | | | | below the sensitivity of | | | | | | detection ofthis assay, | | | | | | or the presence of | | | | | | other mutations within | | | | | | JAK2 notdetected by this | | | | | | assay. This result | | | | | | does not rule out a | | | | | | diagnosis ofpolycythemia | | | | | | vera, essential | | | | | | thrombocythemia or | | | | | | idiopathicmyelofibrosis | | | | | | as the V617F mutation is | | | | | | not detected in all | | | | | | patientswith these | | | | | | disorders. | | | | + + + + + + | Background: | CommentComment: JAK2 is | | REFERENCE | | | | a cytoplasmic tyrosine | | [facility] | | | | kinase with a galan role | | - BKR | | | | in signaltransduction | | | | | | from multiple | | | | | | hematopoietic growth | | | | | | factor receptors. Apoint | | | | | | mutation within exon 14 | | | | | | of the JAK2 gene | | | | | | ([id number]) encoding | | | | | | avaline to phenylalanine | | | | | | substitution at | | | | | | position 617 of the | | | | | | [id number] (V617F) has | | | | | | been identified in most | | | | | | patients with | | | | | | polycythemiavera, and in | | | | | | about half of those | | | | | | with either essential | | | | | | thrombocythemiaor | | | | | | idiopathic | | | | | | myelofibrosis. The V617F | | | | | | has also been | | | | | | detected,although | | | | | | infrequently, in other | | | | | | myeloid disorders such | | | | | | as chronicmyelomonocytic | | | | | | leukemia and chronic | | | | | | neutrophilic luekemia. | | | | | | V617F isan acquired | | | | | | mutation that alters a | | | | | | highly conserved valine | | | | | | present inthe negative | | | | | | regulatory JH2 domain of | | | | | | the JAK2 protein and | | | | | | ispredicted to | | | | | | dysregulate kinase | | | | | | activity.Methodology:Tot | | | | | | al genomic DNA was | | | | | | extracted and subjected | | | | | | to TaqMan real-time | | | | | | PCRamplification/detecti | | | | | | on. Two amplification | | | | | | products per sample | | | | | | weremonitored by | | | | | | real-time PCR using | | | | | | primers/probes specific | | | | | | to JAK2 wildtype (WT) | | | | | | and JAK2 mutant V617F. | | | | | | The [id number] Absolute | | | | | | Quantitationsoftware | | | | | | will compare the patient | | | | | | specimen valuse to the | | | | | | standardcurves and | | | | | | generate percent values | | | | | | for wild type and mutant | | | | | | type.In vitro studies | | | | | | have indicated that this | | | | | | assay has an | | | | | | analyticalsensitivity of | | | | | | 1%.References:Roberto | | | | | | MADDIE, Howard MALIK, Julio | | | | | | PJ, et al. Acquired | | | | | | mutation of thetyrosine | | | | | | kinase JAK2 in human | | | | | | myeloproliferative | | | | | | disorders. Lancet.2005 | | | | | | Oct 26; | | | | | | 365(5661):3137-4427.Hernán | | | | | | s C, Rich V, Le Couedic | | | | | | RUPERT. A unique clonal JAK2 | | | | | | mutation leadingto | | | | | | constitutive signaling | | | | | | causes polycythaemia | | | | | | vera. Nature. 2005 | | | | | | Apr28; | | | | | | 434(3499):8866-7602.Gloria | | | | | | ovics R, Passamonti F, | | | | | | Hanna , et al. A | | | | | | idjo-sa-vsnhnfhyqhaxrobu | | | | | | of JAK2 in | | | | | | myeloproliferative | | | | | | disorders. N Engl J Med. | | | | | | 2005Apr 28; | | | | | | 352(38):5166-2250. | | | | + + + + + + | Director | CommentComment: Liudmila Tolbert, | | REFERENCE | | | Review | PhD, FACMG | | [facility] | | | | Director, | | - BKR | | | | Molecular Genetics | | | | | | [facility] | | | | | | [facility] for [facility] | | | | | | | | | | | | Biology and Pathology | | | | | | | | | | | | [facility], | | | | | | [place] | | | | | | This test | | | | | | was developed and its | | | | | | performance | | | | | | characteristicsdetermine | | | | | | d by [facility]. It has not | | | | | | been cleared or | | | | | | approvedby the Food and | | | | | | Drug Administration. | | | | + + + + + + + + | Specimen | + + | Blood | + + + + + | Narrative | Performed At | + + + | Performed at: - [facility] [address] [facility], | REFERENCE LAB | | [facility], [place] [id number] Bore Mill Operator For Plastic: Livia Mccormick MD, Phone: | [employer] | | [phone] Performed at: [facility] [address] [facility] | | [facility], [facility], [place] [id number] [employer] Mill Operator For Pl[employer]: Livia Mccormick MD, | | | Phone: [phone] | | + + + + + + + + | Performing | Address | City/State/Zipcode | Phone Number | | Organization | | | | + + + + + | REFERENCE LAB | [address] | [place] [address] | [phone] | | [facility] | [address] | | | + + + + + Erythropoietin (06/09/2018 11:28 AM PDT) + + + + + + | Component | Value | Ref Range | Performed | Pathologist | | | | | At | Signature | + + + + + + | ERYTHROPOIE | 12.8Comment: Estelita | 2.6 - 18.5 | REFERENCE | | | TIN | Rosa M UniCel DxI 800 | mIU/mL | [facility] | | | | Immunoassay System | | - BKR | | + + + + + + + + | Specimen | + + | Blood | + + + + + | Narrative | Performed At | + + + | Performed at: [facility] - [facility] [address], | REFERENCE LAB | | [place], [place] [id number] Bore Mill Operator For Pl[employer]: Jus Hopkins MD, Phone: | [facility] | | [phone] | | + + + + + + + + | Performing | Address | City/State/Zipcode | Phone Number | | Organization | | | | + + + + + | REFERENCE LAB | [address] | [place] [address] | [phone] | | [facility] | [address] | | | + + + + + CBC with Differential (06/09/2018 11:28 AM PDT) + + + + + + | Component | Value | Ref Range | Performed | Pathologist | | | | | At | Signature | + + + + + + | WBC | 9.3 | 4.0 - 11.0 K/uL | [facility] | | | | | | [facility] | | | [facility] | [facility] | | | | | [facility] - | | | | | | LABORATORY | | + + + + + + | RBC | 6.05 (H) | 4.30 - 5.70 | [facility] | | | | | M/uL | [facility] | | | | | | [facility] | | | | | | [facility] - | | | | | | LABORATORY | | + + + + + + | Hemoglobin | 18.4 (H) | 13.5 - 18.0 | [facility] | | | | | g/dL | [facility] | | | | | | [facility] | | | | | | CENTER - | | | | | | LABORATORY | | + + + + + + | Hematocrit | 52.9 (H) | 40.0 - 51.0 % | [facility] | | | | | | [facility] | | | | | | [facility] | | | | | | [facility] - | | | | | | LABORATORY | | + + + + + + | MCV | 87.4 | 83.0 - 101.0 fL | [facility] | | | | | | [facility] | | | | | | [facility] | | | | | | [facility] - | | | | | | LABORATORY | | + + + + + + | MCH | 30.4 | 28.0 - 35.0 pg | [facility] | | | | | | [facility] | | | | | | [facility] | | | | | | [facility] - | | | | | | LABORATORY | | + + + + + + | MCHC | 34.8 | 32.0 - 36.0 | [facility] | | | | | g/dL | [facility] | | | | | | [facility] | | | | | | [facility] - | | | | | | LABORATORY | | + + + + + + | RDW-CV | 12.9 | <15.0 % | [facility] | | | | | | [facility] | | | | | | [facility] | | | | | | [facility] - | | | | | | LABORATORY | | + + + + + + | RDW-SD | 41.1 | 35.1 - 46.3 fL | [facility] | | | | | | [facility] | | | | | | [facility] | | | | | | [facility] - | | | | | | LABORATORY | | + + + + + + | Platelet | 354 | 140 - 440 K/uL | [facility] | | | Count | | | [facility] | | | | | | [facility] | | | | | | [facility] - | | | | | | LABORATORY | | + + + + + + | MPV | 9.0 | 6.5 - 12.4 fL | [facility] | | | | | | [facility] | | | | | | [facility] | | | | | | [facility] - | | | | | | LABORATORY | | + + + + + + | % | 67.8 | 45.0 - 82.0 % | [facility] | | | Neutrophils | | | [facility] | | | | | | [facility] | | | | | | CENTER - | | | | | | LABORATORY | | + + + + + + | % | 20.8 | 20.0 - 45.0 % | [facility] | | | Lymphocytes | | | [facility] | | | | | | [facility] | | | | | | CENTER - | | | | | | LABORATORY | | + + + + + + | % Monocytes | 8.5 | 4.0 - 12.0 % | [facility] | | | | | | [facility] | | | | | | [facility] | | | | | | [facility] - | | | | | | LABORATORY | | + + + + + + | % | 1.0 | 0.0 - 5.0 % | [facility] | | | Eosinophils | | | [facility] | | | | | | [facility]ICAL | | | | | | CENTER - | | | | | | LABORATORY | | + + + + + + | % Basophils | 0.8 | 0.0 - 1.0 % | [facility] | | | | | | [facility] | | | | | | MEDICAL | | | | | | CENTER - | | | | | | LABORATORY | | + + + + + + | % Immature | 1.1 (H)Comment: | 0.0 - 0.4 % | [facility] | | | Granulocyte | Preliminary studIes have | | [facility] | | | s | indicated the IG% | | MEDICAL | | | | and/or IG# show promise | | CENTER - | | | | as an early screen for | | LABORATORY | | | | infection. | | | | + + + + + + | Absolute | 6.28 | 1.80 - 8.50 | [facility] | | | Neutrophils | | K/uL | [facility] | | | | | | [facility] | | | | | | CENTER - | | | | | | LABORATORY | | + + + + + + | Absolute | 1.93 | 0.60 - 3.20 | [facility] | | | Lymphocytes | | K/uL | [facility] | | | | | | MEDICAL | | | | | | CENTER - | | | | | | LABORATORY | | + + + + + + | Absolute | 0.79 | 0.00 - 1.00 | [facility] | | | Monocytes | | K/uL | [facility] | | | | | | MEDICAL | | | | | | CENTER - | | | | | | LABORATORY | | + + + + + + | Absolute | 0.09 | 0.00 - 0.40 | [facility] | | | Eosinophils | | K/uL | [facility] | | | | | | MEDICAL | | | | | | CENTER - | | | | | | LABORATORY | | + + + + + + | Absolute | 0.07 | 0.00 - 0.10 | [facility] | | | Basophils | | K/uL | [facility] | | | | | | MEDICAL | | | | | | CENTER - | | | | | | LABORATORY | | + + + + + + | Absolute | 0.10 (H) | 0.00 - 0.03 | [facility] | | | Immature | | K/uL | [facility] | | | Granulocyte | | | MEDICAL | | | s | | | CENTER - | | | | | | LABORATORY | | + + + + + + | % nRBC | 0 | 0 - 2 per 100 | [facility] | | | | | WBC's | [facility] | | | | | | MEDICAL | | | | | | CENTER - | | | | | | LABORATORY | | + + + + + + | Absolute | 0.00 | 0.00 - 0.01 | [facility] | | | nRBC | | K/uL | [facility] | | | | [...] | + + + + + | JIGNESH RAHMAN. | [address] | [place] | [phone] | | [facility] | | [address] | | | - LABORATORY | | | | + + + + + LABS - EXTERNAL SCAN (2018 12:00 AM PDT) + + + | Narrative | Performed At | + + + | Ordered by an | | | unspecified provider. | | + + + documented in this encounter Visit Diagnoses + + | Diagnosis | + + | Erythrocytosis - Primary Reserved for inherently not codable concepts WITHOUT codable | | children | + + | Pituitary adenoma (HCC) Benign neoplasm of pituitary gland and craniopharyngeal duct | | (pouch) | + + documented in this encounter
--- OUTSIDE RECORDS SUMMARY | ~2019-07-14 | XMS | Encounter Summary ---
Demographics + + + | Address | [address] | | | [place] [address] | + + + | Home Phone [...] Author + + + | Author | [place] [facility] | + + + | Organization | [facility] | + + + | Address | Unknown | + + + | Phone | Unavailable | + + + Support + + +---------+ + | Name | Relationship | Address | Phone | + + +---------+ + | Alexandria Dixon | ECON | Unknown | | + + +---------+ + Care Team Providers + +------+ + | Care Developmental Services Worker Name | Role | Phone | [...] Refill Request | | 2009 | | [facility] [address] | [place], | | | | | [place] Mailcode: CH8N | DNP,TECHNICAL ARCHITECT,[place] [address] | | | | | [facility] | [address] [place], | | | | | and [facility], | [place] [address] | | | | | [address] | [phone] | | | | | [place], [place] | | | | | | [address] | | | | | | [phone] | | | +--------+--------+ + + + [...] Rd | | | | | | [place], [place] | | | | | | [address] | | | | | | [phone] | | | | | | | | +--------+---------+ + + + documented as of this encounter Visit Diagnoses Not on filedocumented in this encounter"
--- OUTSIDE RECORDS SUMMARY | ~2019-07-14 | XMS | Encounter Summary ---
Demographics + + + | Address | [address] | | | [place] [address] | + + + | Home Phone [...] Author + + + | Author | [place] [employer] [facility] | + + + | Organization | [facility] | + + + | Address | Unknown | + + + | Phone | Unavailable | + + + Support + + +---------+ + | Name | Relationship | Address | Phone | + + +---------+ + | Alexandria Dixon | ECON | Unknown | | + + +---------+ + Care Team Providers + +------+ + | Care Rand Cementer Name | Role | Phone | + +------+ + | Priscilla Ramírez PA-C | PCP | | + +------+ + Encounter Details +--------+ + + + + | Date | Type | Department | Care Team | Description | +--------+ + + + + | 12/08/ | Ancillary | Registration [address] | Donnie, | | | 2006 | Registratio | [facility] [address] | Cathie | | | | n | Abdoul[place] Mailcode: [id number] | DNP,CASE FINISHING MACHINE ADJUSTER,[place] [address] | | | | | [place], [place] | [address] [place], | | | | | [address] | [place] [address] | | | | | [phone] | [phone] | | | | | | | | +--------+ + + + + Social History + +-------+ +--------+------+ | Tobacco Use | Types | Packs/Day | Years | Date | | | | | Used | | + +-------+ +--------+------+ | Current Every Day | | | | | | Smoker | | | | | + +-------+ +--------+------+ + + | Comments: occasionally | + [...] | | 2019 | Visit | | [address] | | | | | | [address] | | | | | | [place], [place] | | | | | | [address] | | | | | | [phone] | | | | | | | | +--------+---------+ + + + documented as of this encounter Visit Diagnoses Not on filedocumented in this encounter"
--- OUTSIDE RECORDS SUMMARY | ~2019-07-14 | XMS | Encounter Summary ---
Demographics + + + | Address | [address] | | | [place] [address] | + + + | Home Phone | | + + + | Preferred Language | Unknown | + + + | Marital Status | Single | + + + | Methodist Affiliation | NON | + + + | Race | or | + + + | Ethnic Group | Not or | + + + Author + + + | Author | [place] [facility] | + + + | Organization | [facility] | + + + | Address | Unknown | + + + | Phone | Unavailable | + + + Support + + +---------+ + | Name | Relationship | Address | Phone | + + +---------+ + | Alexandria Dixon | ECON | Unknown | | + + +---------+ + Care Team Providers + +------+ + | Care Chemical Sprayer Name | Role | Phone | + [...] | +--------+ + + + + | 07/09/ | Telephone | Cardiology General | Zuleika Hernandez, | Refill Request | | 2018 | | at [facility] [address] | MD [address] | | | | | [address] Mailcode: | [place] | | | | | [address] | [place], [place] | | | | | Health and Healing, | [address] | | | | | [facility] | [phone] | | | | | floor [place], [place] | | | | | | [address] | | | | | | [phone] | | | +--------+ + + + [...] Rd | | | | | | [place], [place] | | | | | | [address] | | | | | | [phone] | | | | | | | | +--------+---------+ + + + documented as of this encounter Visit Diagnoses Not on filedocumented in this encounter"
--- OUTSIDE RECORDS SUMMARY | ~2019-07-14 | XMS | Encounter Summary ---
Demographics + + + | Address | [address] | | | [place] [address] | + + + | Home Phone | | + + + | Preferred Language | Unknown | + + + | Marital Status | Single | + + + | Evangelical Affiliation | NON | + + + | Race | or | + + + | Ethnic Group | Not or | + + + Author + + + | Author | [place] [facility] | + + + | Organization | [facility] | + + + | Address | Unknown | + + + | Phone | Unavailable | + + + Support + + +---------+ + | Name | Relationship | Address | Phone | + + +---------+ + | Alexandria Dixon | ECON | Unknown | | + + +---------+ + Care Team Providers + +------+ + | Care Technology Resource Teacher Name | Role | Phone | + [...] Description | +--------+--------+ + + + | 08/17/ | Refill | Neurosurgery at | Donnie, | Refill Request | | 2012 | | [facility] [address] | [place], | | | | | [place] Mailcode: CH8N | DNP,FIBERGLASS AUTO BODY REPAIRER,[place] [address] | | | | | [facility] | [address] [place], | | | | | and Healing, | [place] [address] | | | | | [address] | [phone] | | | | | [place], [place] | | | | | | [address] | | | | | | [phone] | | | +--------+--------+ + + + [...] Rd | | | | | | [place], [place] | | | | | | [address] | | | | | | [phone] | | | | | | | | +--------+---------+ + + + documented as of this encounter Visit Diagnoses Not on filedocumented in this encounter"
--- OUTSIDE RECORDS SUMMARY | ~2019-07-14 | XMS | Encounter Summary ---
Demographics + + + | Address | [address] | | | [place] [address] | + + + | Home Phone | | + + + | Preferred Language | Unknown | + + + | Marital Status | Single | + + + | Taoist Affiliation | NON | + + + | Race | or | + + + | Ethnic Group | Not or | + + + Author + + + | Author | [facility] | + + + | Organization | [facility] | + + + | Address | Unknown | + + + | Phone | Unavailable | + + + Support + + +---------+ + | Name | Relationship | Address | Phone | + + +---------+ + | Alexandria Dixon | ECON | Unknown | | + + +---------+ + Care Team Providers + +------+ + | Care Firearms Specialist Name | Role | Phone | + +------+ + | Priscilla Ramírez PA-C | PCP | | + +------+ + Reason for Visit Diagnostic Testing (Routine) +--------+--------+ + + + + | Status | Reason | Specialty | Diagnoses / | Referred By | Referred To | | | | | Procedures | Contact | Contact | +--------+--------+ + + + + | Closed | | Radiology | Diagnoses | David, | Rad Nuc Med | | | | | Chest pain, | Zule[place], | [address] | | | | | unspecified | [address] | [address] | | | | | type | [address] | [address] | | | | | Coronary | [address] | Mailcode: | | | | | artery | [facility], [place] | [address] | | | | | disease of | [address] | [address] | | | | | muscogee | Phone: | [place], [place] | | | | | artery of | [phone] | [address] | | | | | muscogee heart | Fax: | Phone: | | | | | with stable | [phone] | [phone] | | | | | angina | | Fax: | | | | | pectoris | | [phone] | | | | | (HCC) | | | | | | | Procedures | | | | | | | NM | | | | | | | MYOCARDIAL | | | | | | | PERFUSION | | | | | | | (SPECT) | | | | | | | MULTIPLE | | | | | | | STUDIES WITH | | | | | | | EXERCISE | | | | | | | CO HT MUSCLE | | | | | | | IMAGE | | | | | | | SPECT, MULT | | | +--------+--------+ + + + + Encounter Details +--------+ + + + + | Date | Type | Department | Care Team | Description | +--------+ + + + + | 06/30/ | Hospital | Nuclear Medicine | Zuleika Hernandez, | | | 2018 | Encounter | at [facility] [address] | [address] | | | | | [address] | [address] | | | | | Mailcode: [address] | [place], [place] | | | | | [place] | [address] | | | | | [place], [place] | [phone] | | | | | [address] | | | | | | [phone] | | | +--------+ + + + [...] + + documented as of this encounter Medications at Time of Discharge + + + +---------+ + + | Medication | Sig | Dispensed | Refills | Start | End Date | | | | | | Date | | + + + +---------+ + + | cholecalciferol, | Take 6,000 Units by | | 0 | | | | vitamin D3, 4,000 | mouth once daily. | | | | | | unit oral tablet | | | | | | + + + +---------+ + + | DEPO-TESTOSTERONE | Inject 200 mg under | | 0 | 05/14/20 | | | 200 mg/mL | the skin (SUBC) | | | 16 | | | intramuscular oil | every fourteen days. | | | | | + + + +---------+ + + | fenofibrate 145 mg | Take 145 mg by mouth | | 1 | 03/19/20 | | | oral tablet | once daily. | | | 17 | | + + + +---------+ + + | | Take 1 tablet by | | 0 | | | | HYDROcodone-acetamin | mouth every six | | | | | | ophen 10-325 mg oral | hours as needed for | | | | | | tablet | moderate pain. 4-6 | | | | | | | tabs daily | | | | | + + + +---------+ + + | hydrocortisone | Inject 1ml for | 1 mg | 1 | 10/27/19 | | | sodium succinate, | symptoms of adrenal | | | 15 | | | PF, (HYDROCORTISONE | crisis. Low blood | | | | | | SODIUM SUCCINATE) | pressure, vomiting, | | | | | | 100 mg/2 mL | high heart rate. | | | | | | injection recon soln | | | | | | + + + +---------+ + + | levothyroxine 125 | Take 1 tablet by | 90 | 1 | 11/18/19 | | | mcg oral tablet | mouth before | tablet | | 15 | | | | breakfast. | | | | | + + + +---------+ + + | metFORMIN 500 mg | 2 tabs at breakfast | 90 | 5 | 06/22/20 | | | oral tablet | and one tab at | tablet | | 15 | | | | dinner dialy | | | | | + + + +---------+ + + | nitroglycerin 0.2 | Apply 1 patch to | | 0 | | | | mg/hr transdermal | skin as needed. | | | | | | patch 24 hour | Patch on period for | | | | | | | 12-14 hours; Patch | | | | | | | off period for 10-12 | | | | | | | hours | | | | | + + + +---------+ + + | promethazine 25 mg | Take 1 tablet by | 20 | 1 | 06/02/20 | | | oral tablet | mouth four times | tablet | | 14 | | | | daily as needed for | | | | | | | nausea/vomiting. | | | | | + + + +---------+ + + | sertraline HCl | pt reports taking 75 | | 0 | | | | (SERTRALINE ORAL) | daily | | | | | + + + +---------+ + + documented as of this encounter Plan of Treatment +--------+---------+ + + + | Date | Type | Specialty | Care Team | Description | +--------+---------+ + + + | 08/15/ | Office | Cardiology | HernandezZuleika, | | | 2019 | Visit | | [address] | | | | | | [address] | | | | | | [place], [place] | | | | | | [address] | | | | | | [phone] | | | | | | | | +--------+---------+ + + + documented as of this encounter Procedures + +--------+ + + + | Procedure Name | Priori | Date/Time | Associated Diagnosis | Comments | | | ty | | | | + +--------+ + + + | ORDERS OTHER | | 06/30/2018 | | Results for this | | | | 12:00 AM | | procedure are in the | | | | PST | | results section. | + +--------+ + + + documented in this encounter Results ORDERS CRYSTAL (06/30/2018 12:00 AM PST) + + + | Narrative | Performed At | + + + | | | + + + documented in this encounter Visit Diagnoses Not on filedocumented in this encounter"
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
--- OUTSIDE RECORDS SUMMARY | ~2019-07-14 | XMS | Encounter Summary ---
Demographics + + + | Address | [address] | | | [place] [address] | + + + | Home Phone | | + + + | Preferred Language | Unknown | + + + | Marital Status | Single | + + + | Yazidi Affiliation | Unknown | + + + | Race | Unknown | + + + | Ethnic Group | Unknown | + + + Author + + + | Author | [facility] | | | and [place] | + + + | Organization | [facility] | | | and [place] [...] Team Providers + +------+ + | Care Supply Person Name | Role | Phone | + +------+ + PCP | Unavailable | + +------+ + Encounter Details +--------+ + + + + | Date | Type | Department | Care Team | Description | +--------+ + + + + | 08/20/ | Hospital | [facility] | Shravan Montanez, | | | 2006 | Encounter | MED CTR GENERIC IP | MD [address] | | | | | CONV DEPT [address] | [place], [place] | | | | | [place], | [address] | | | | | [place] [address] | | | | | | [phone] | | | +--------+ + + + [...] 2019 | Visit | | [address] | | | | | | [place] | | | | | | [address] | | | | | | | | +--------+---------+ + + + documented as of this encounter Visit Diagnoses Not on filedocumented in this encounter"
--- OUTSIDE RECORDS SUMMARY | ~2019-07-14 | XMS | Encounter Summary ---
Demographics + + + | Address | [address] | | | [place] [address] | + + + | Home Phone | | + + + | Preferred Language | Unknown | + + + | Marital Status | Single | + + + | Anabaptist Affiliation | NON | + + + [...] Team Providers + +------+ + | Care Skirt Trimmer Name | Role | Phone | + [...] as of this encounter Progress Notes Interface, Life Coach In - 09/30/2005 2:03 AM PST [id number] 09/16/2005 [id number] TOREY TRIVEDI V Consulting Physician: Lb Guillaume M.D., Ph.D. Consultation Date: 09/16/2005 Referring Physician: Reuben Styles M.D. Reason For Requested Consultation: I was asked by Dr. Styles to evaluate this patient 1 day status post transsphenoidal resection of a pituitary macrolesion. I was asked to evaluate and assist with postsurgical management of endocrinopathies. This procedure was performed by Dr. Styles at [facility] on 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 This is [...] consultation and recommendations. Lb Guillaume M.D., Ph.D. [facility] / GABY [id number] / [id number] / [id number] / cc: Reuben Styles M.D. Electronically signed [...] [address] | | | | | | [place] | | | | | | [address] | | | | | | [phone] | | | | | | | | +--------+---------+ + + + documented as of this encounter Visit Diagnoses Not on filedocumented in this encounter"
--- OUTSIDE RECORDS SUMMARY | ~2019-07-14 | XMS | Encounter Summary ---
Demographics + + + | Address | [address] | | | [place] [address] | + + + | Home Phone [...] Author + + + | Author | [place] [facility] | + + + | Organization | [facility] | + + + | Address | Unknown | + + + | Phone | Unavailable | + + + Support + + +---------+ + | Name | Relationship | Address | Phone | + + +---------+ + | Alexandria Dixon | ECON | Unknown | | + + +---------+ + Care Team Providers + +------+ + | Care Spinning Machine Operator Name | Role | Phone [...] Request | | 2018 | | at [facility] [address] | MD [address] [facility] | | | | | Nura Blackwell Mailcode: | [address] | | | | | [address] | [place], [place] | | | | | Health and Healing, | [address] | | | | | [facility] | [phone] | | | | | floor [place], [place] | | | | | | [address] | | | | | | [phone] | | | +--------+ + + + [...] Rd | | | | | | [place], [place] | | | | | | [address] | | | | | | [phone] | | | | | | | | +--------+---------+ + + + documented as of this encounter Visit Diagnoses Not on filedocumented in this encounter"
--- OUTSIDE RECORDS SUMMARY | ~2019-07-14 | XMS | Encounter Summary ---
Demographics + + + | Address | [address] | | | [place] [address] | + + + | Home Phone | | + + + | Preferred Language | Unknown | + + + | Marital Status | Single | + + + | Evangelical Affiliation | Unknown | + + + | Race | Unknown | + + + | Ethnic Group | Unknown | + + + Author + + + | Author | [facility] | | | and [place] | + + + | Organization | [facility] | [...] Team Providers + +------+ + | Care Supervisor Engine Repair Name | Role | Phone | + +------+ + | Jinny Bergeron MD | PCP | | + +------+ + Encounter Details +--------+ + + + + | Date | Type | Department | Care Team | Description | +--------+ + + + + | 07/02/ | Hospital | C GENERIC IP | Conversion | Pain | | 2016 | Encounter | CONVERSION [address] | Transaction, | | | | | [address] | Provider Unknown | | | | | [place], [place] | [phone] | | | | | [address] | | | | | | [phone] | | | +--------+ + + + [...] [place] | | | | | | [address] | | | | | | | | +--------+---------+ + + + documented as of this encounter Procedures + +--------+ + + + | Procedure Name | Priori | Date/Time | Associated Diagnosis | Comments | | | ty | | | | + +--------+ + + + | CV CARDIAC PROCEDURE | Routin | 07/02/2016 | | Results for this | | | e | 10:52 PM | | procedure are in the | | | | PST | | results section. | + +--------+ + + + documented in this encounter Results CV CARDIAC PROCEDURE (07/02/2016 10:52 PM PST) + + | Specimen | + + | | + + + + + | Narrative | Performed At | + + + | This is a non-reportable procedure without a radiologist report and | | | is used for image storage only | | + + + + + | Procedure Note | + + | Alonzo Trevizo Jennifer - 03/30/2019 2:57 PM PDT This is a non-reportable procedure | | without a radiologist report and isused for image storage only | + + documented in this encounter Visit Diagnoses + + | Diagnosis | + + | Pain Generalized pain | + + documented in this encounter"
--- OUTSIDE RECORDS SUMMARY | ~2019-07-14 | XMS | Encounter Summary ---
Demographics + + + | Address | [address] | | | [place] [address] | + + + | Home Phone [...] + + + | Author | [place] [employer] [facility] | + + + | Organization | [facility] | + + + | Address | Unknown | + + + | Phone | Unavailable | + + + Support + + +---------+ + | Name | Relationship | Address | Phone | + + +---------+ + | Alexandria Dixon | ECON | Unknown | | + + +---------+ + Care Team Providers + +------+ + | Care Gate Guard Name | Role | Phone | + +------+ + | Jhonny Rodriguez DO | PCP | | + +------+ + Encounter Details +--------+ + + + + | Date | Type | Department | Care Team | Description | +--------+ + + + + | 06/07/ | MyChart | Neurosurgery at | Donnie, | RE: Test Results | | 2012 | Encounter | [facility] [address] | Cathie | | | | | [place] Mailcode: CH8N | DNP,SET UP TECHNICIAN,[place] [address] | | | | | [facility] | [address] [place], | | | | | and [place], | [place] [address] | | | | | [facility] [address] | [phone] | | | | | [place], [place] | | | | | | [address] | | | | | | [phone] | | | +--------+ + + + [...] Rd | | | | | | [place], [place] | | | | | | [address] | | | | | | [phone] | | | | | | | | +--------+---------+ + + + documented as of this encounter Visit Diagnoses Not on filedocumented in this encounter"
--- OUTSIDE RECORDS SUMMARY | ~2019-07-14 | XMS | Encounter Summary ---
Demographics + + + | Address | [address] | | | [place] [address] | + + + | Home Phone | | + + + | Preferred Language | Unknown | + + + | Marital Status | Single | + + + | Religion Affiliation | NON | + + + | Race | or | + + + | Ethnic Group | Not or | + + + Author + + + | Author | [place] [employer] [facility] | + + + | Organization | [facility] | + + + | Address | Unknown | + + + | Phone | Unavailable | + + + Support + + +---------+ + | Name | Relationship | Address | Phone | + + +---------+ + | Alexandria Dixon | ECON | Unknown | | + + +---------+ + Care Team Providers + +------+ + | Care Wet Washer Machine Name | Role | Phone | + +------+ + | No Pcp Per Patient | PCP | Unavailable | + +------+ + Encounter Details +--------+ + + + + | Date | Type | Department | Care Team | Description | +--------+ + + + + | 08/18/ | Ethernet Network Architect | Neurosurgery at | [place]nie, | | | 2011 | | [facility] [address] | Cathie | | | | | [place] Mailcode: [id number] | DNP,SCREEN AND CYCLONE REPAIRER,[place] [address] | | | | | [facility] | [address] [place], | | | | | and Healing, | [place] [address] | | | | | [facility] | [phone] | | | | | Floor [place], [place] | | | | | | [address] | | | | | | [phone] | | | +--------+ + + + [...] Rd | | | | | | [place], [place] | | | | | | [address] | | | | | | [phone] | | | | | | | | +--------+---------+ + + + documented as of this encounter Visit Diagnoses Not on filedocumented in this encounter"
--- OUTSIDE RECORDS SUMMARY | ~2019-07-14 | XMS | Encounter Summary ---
Demographics + + + | Address | [address] | | | [place] [address] | + + + | Home Phone [...] + + + | Author | [place] [employer] [facility] | + + + | Organization | [facility] | + + + | Address | Unknown | + + + | Phone | Unavailable | + + + Support + + +---------+ + | Name | Relationship | Address | Phone | + + +---------+ + | Alexandria Dixno | ECON | Unknown | | + + +---------+ + Care Team Providers + +------+ + | Care Geoscience Technician Name | Role | Phone | [...] Description | +--------+--------+ + + + | 06/03/ | Refill | Neurosurgery at | [place], | Refill Request | | 2018 | | [facility] [address] | Cathie, | | | | | [place] Mailcode: CH8N | DNP,HOOF AND SHOE INSPECTOR,[place] [address] | | | | | [facility] | [address] [place], | | | | | and Healing, | [place] [address] | | | | | Building [address] | [phone] | | | | | [place], [place] | | | | | | [address] | | | | | | [phone] | | | +--------+--------+ + + + [...] Rd | | | | | | [place], [place] | | | | | | [address] | | | | | | [phone] | | | | | | | | +--------+---------+ + + + documented as of this encounter Visit Diagnoses + + | Diagnosis | + + | Pituitary adenoma (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
--- OUTSIDE RECORDS SUMMARY | ~2019-07-14 | XMS | Encounter Summary ---
Demographics + + + | Address | [address] | | | [place] [address] | + + + | Home Phone | | + + + | Preferred Language | Unknown | + + + | Marital Status | Single | + + + | Quaker Affiliation | NON | + + + | Race | or | + + + | Ethnic Group | Not or | + + + Author + + + | Author | [place] [employer] [facility] | + + + | Organization | [facility] | + + + | Address | Unknown | + + + | Phone | Unavailable | + + + Support + + +---------+ + | Name | Relationship | Address | Phone | + + +---------+ + | Alexandria Dixon | ECON | Unknown | | + + +---------+ + Care Team Providers + +------+ + | Care Paper Conservator Name | Role | Phone | + +------+ + | Bernardo Pan | PCP | | + +------+ + Reason for Visit Diagnostic Testing (Routine) +--------+--------+ + + + + | Status | Reason | Specialty | Diagnoses / | Referred By | Referred To | | | | | Procedures | Contact | Contact | +--------+--------+ + + + + | Closed | | Cardiology | Diagnoses | Mitch | Car Echo | | | | | Mitral | Ashish Hernandez PA-C | [facility] [address] | | | | | valve mass | [address] | [address] | | | | | Procedures | [address] | [address] | | | | | TRANSTHORACI | [address] | Mailcode: | | | | | C | [place], [place] | [address] | | | | | ECHOCARDIOGR | [address] | [address] | | | | | AM, ADULT | Phone: | Building | | | | | | [phone] | [place], [place] | | | | | | Fax: | [address] | | | | | | [phone] | Phone: | | | | | | | [phone] | +--------+--------+ + + + + Encounter Details +--------+ + + + + | Date | Type | Department | Care Team | Description | +--------+ + + + + | 08/14/ | Hospital | Cardiac | | | | 2017 | Encounter | Non-Invasive Testing | | | | | | at [address] | | | | | | [address] | | | | | | [address] | | | | | | Mailcode: [address] | | | | | | [address] | | | | | | Building [place], | | | | | | [place] [address] | | | | | | [phone] | | | +--------+ + + + [...] 200 mg under | | 0 | 10/20 | | | 200 mg/mL | the [...] + + +---------+ + + | amLODIPine 5 mg | Take 10 tablets by | | 0 | 06/16/20 | | | oral tablet | mouth once daily at | | | 16 | 7 | | | bedtime. | | | | | + + + +---------+ + + documented as of this encounter Progress Eric Wallace - 08/14/2016 12:10 PM PSTTransthoracic echocardiogram completed. Final report to follow. documented in this encounter Plan of Treatment +--------+---------+ + + + | Date | Type | Specialty | Care Team | Description | +--------+---------+ + + + | 08/15/ | Office | Cardiology | Zuleika Hernandez, | | | 2019 | Visit | | [address] | | | | | | [address] | | | | | | [place], [place] | | | | | | [address] | | | | | | [phone] | | | | | | | | +--------+---------+ + + + documented as of this encounter Procedures + +--------+ + + + | Procedure Name | Priori | Date/Time | Associated Diagnosis | Comments | | | ty | | | | + +--------+ + + + | TRANSTHORACIC | Routin | 08/14/2016 | Mitral valve mass | Results for this | | ECHOCARDIOGRAM, | e | 11:18 AM | | procedure are in the | | ADULT | | PST | | results section. | + +--------+ + + + documented in this encounter Visit Diagnoses + + | Diagnosis | + + | Mitral valve mass Mitral valve disorders | + + documented in this encounter Administered Medications + +---------+ +--------+------+ + | Medication Order | MAR | Action | Dose | Rate | Site | | | Action | Date | | | | + +---------+ +--------+------+ + | perflutren lipid microspheres | IV Push | 08/14/19 | 1.5 mL | | Left | | (DEFINITY) injection 1.5 mL 1.5 | | 17 2:10 | | | Antecubi | | mL, intravenous, PROCEDURE ONCE, | | PM PST | | | erica | | 1 dose, Lexi 08/14/16 at 1445 | | | | | | + +---------+ +--------+------+ + +---+---+ | | | +---+---+ documented in this encounter"
--- OUTSIDE RECORDS SUMMARY | ~2019-07-14 | XMS | Encounter Summary ---
Demographics + + + | Address | [address] | | | [place] [address] | + + + | Home Phone | | + + + | Preferred Language | Unknown | + + + | Marital Status | Single | + + + | Restorationism Affiliation | Unknown | + + + | Race | Unknown | + + + | Ethnic Group | Unknown | + + + Author + + + | Author | [facility] | | | and [place] | + + + | Organization | [facility] | | | and [...] Providers + +------+ + | Care Rn Allergy Name | Role | Phone | + +------+ + | Jinny Bergeron MD | PCP | | + +------+ + Reason for Visit + + + | Reason | Comments | + + + | Follow-up | nasal surgery | + + + Evaluate & Treat (Routine) +--------+--------+ + + + + | Status | Reason | Specialty | Diagnoses / | Referred By | Referred To | | | | | Procedures | Contact | Contact | +--------+--------+ + + + + | Closed | | Otolaryngolog | Diagnoses | [place], | Zafar, Mckay | | | | y | Nasal 1 | BRETT Schneider | Josef, [address] | | | | | week follow | [address] | [address] | | | | | up/ [place]/ | [place] | [address] | | | | | [place]/ | [place], [place] | [place], | | | | | Self/NEED | [address] | [place] [address] | | | | | AUTH | Phone: | Phone: | | | | | Procedures | [phone] | [phone] | | | | | OFFICE VISIT | Fax: | Fax: | | | | | REGULAR | [phone] | [phone] | +--------+--------+ + + + + Encounter Details +--------+---------+ + + + | Date | Type | Department | Care Team | Description | +--------+---------+ + + + | 04/11/ | Office | [facility] [place] | Mckay Zafar MD | Hypertrophy of nasal | | 2016 | Visit | OTOLARYNGOLOGY [address] | [address] [place] | turbinates (Primary | | | | [address] | [address] [place], | Dx); 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[place], [place] | [place] [address] | septum | | | | [address] | [phone] | | | | | [phone] | | | +--------+---------+ + + + [...] + + + + | Pulse | 91 | 04/11/2016 10:43 AM | | | | | PDT | | + + + + + | Temperature | - | - | | + + + + + | Respiratory Rate | 16 | 04/11/2016 10:43 AM | | | | | PDT | | + + + + + | Oxygen Saturation | 98% | 04/11/2016 10:43 AM | | | | | PDT | | + + + + + | Inhaled Oxygen | - | - | | | Concentration | | | | + + + + + | Weight | 120.2 kg (265 lb) | 04/11/2016 10:43 AM | | | | | PDT | | + + + + + | Height | 172.7 cm (5' 8") | 04/11/2016 10:43 AM | | | | | PDT | | + + + + + | Body Mass Index | 40.29 | 04/11/2016 10:43 AM | | | | | PDT | | + + + + + documented in this encounter Progress Notes Mckay Zafar MD - 04/11/2016 11:24 AM PDT [facility] OTOLARYNGOLOGY [address] [address] OFFICE NOTE MCKAY ZAFAR MD Patient: FAROOQ LEMA Admitting: MR #: [id number] LOC: PT TYPE: Adm Date: 04/11/2016 : 1980 DATE OF VISIT: 04/11/2016 The patient is 3 days gauge postoperative septoplasty and inferior turbinoplasties. He tinsley s had bleeding from the left hand side the last 2 days and had to have a Rhinorocket put ba ck in his nose. He comes in for followup. The rocket on the lefthand side was able to be removed. There was a little bit of tiny bleeding, but nothing of any quantity, as compared to previously. Both sides of the nose were sprayed well and able to be suctioned. He cou ld breathe through both sides once this was completed. Some silver nitrate was used on the back part of the inferior turbinate on the lefthand side because there was a little bit o f a trickle of blood occurring. Once this was thoroughly treated and brought under control and the patient was able to breathe on both sides he was able to be discharged home. He w ill take it very easy today. He will spray the nose about every 2 hours with some Aristides-Syne phrine and then do some nasal rinses this evening. He will be re-seen again next . MCKAY ZAFAR MD Dictated by MCKAY ZAFAR MD 04/11/2016 11:24:45 Transcribed on 04/12/2016 05:49:51 by job# [id number] Confirmation #: [id number] cc: JINNY BERGERON MD [email or web address]], Mckay Bahena MD - 04/11/2016 11:21 AM PDTSee dictation # [id number] signed by Mckay Zafar MD at 04/11/2016 11:25 AM PDTdocumented in th is encounter Plan of Treatment +--------+---------+ + + + | Date | Type | Specialty | Care Team | Description | +--------+---------+ + + + | 11/21/ | Office | Sleep Medicine | Sumanth Champion PA | | | 2019 | Visit | | [address] | | | | | | [place] | | | | | | [address] | | | | | | | | +--------+---------+ + + + documented as of this encounter Visit Diagnoses + + | Diagnosis | + + | Hypertrophy of nasal turbinates - Primary | + + | Deviated nasal septum | + + documented in this encounter
--- OUTSIDE RECORDS SUMMARY | ~2019-07-14 | XMS | Encounter Summary ---
Demographics + + + | Address | [address] | | | [place] [address] | + + + | Home Phone | | + + + | Preferred Language | Unknown | + + + | Marital Status | Single | + + + | Orthodoxy Affiliation | NON | + + + | Race | or | + + + | Ethnic Group | Not or | + + + Author + + + | Author | [place] [employer] [facility] | + + + | Organization | [facility] | + + + | Address | Unknown | + + + | Phone | Unavailable | + + + Support + + +---------+ + | Name | Relationship | Address | Phone | + + +---------+ + | Alexandria Dixon | ECON | Unknown | | + + +---------+ + Care Team Providers + +------+ + | Care Bellows Charger Assembler Name | Role | Phone | + [...] Description | +--------+--------+ + + + | 06/27/ | Refill | Neurosurgery at | Donnie, | Refill Request | | 2015 | | [facility] [address] | [place]ie, | | | | | [place] Mailcode: CH8N | DNP,FILTRATION PLANT OPERATOR,[place] [address] | | | | | [facility] | [address] [place], | | | | | and Healing, | [place] [address] | | | | | Building | [phone] | | | | | Floor [place], [place] | | | | | | [address] | | | | | | [phone] | | | +--------+--------+ + + + [...] | | 2019 | Visit | | [address] | | | | | | [address] | | | | | | [place], [place] | | | | | | [address] | | | | | | [phone] | | | | | | | [...]
--- OUTSIDE RECORDS SUMMARY | ~2019-07-14 | XMS | Encounter Summary ---
Demographics + + + | Address | [address] | | | [place] [address] | + + + | Home Phone [...] + + + | Author | [place] [employer] [facility] | + + + | Organization | [facility] | + + + | Address | Unknown | + + + | Phone | Unavailable | + + + Support + + +---------+ + | Name | Relationship | Address | Phone | + + +---------+ + | Alexandria Dixon | ECON | Unknown | | + + +---------+ + Care Team Providers + +------+ + | Care Strategic Solutions Consultant Name | Role | Phone | [...] Description | +--------+--------+ + + + | 06/08/ | Refill | Neurosurgery at | [place]nie, | Refill Request | | 2006 | | [facility] [address] | [place]ie, | | | | | [place] Mailcode: CH8N | DNP,ROAD PACKER OPERATOR,[place] [address] | | | | | [facility] | [address] [place], | | | | | and [facility], | [place] [address] | | | | | [facility] | [phone] | | | | | Floor [place], [place] | | | | | | [address] | | | | | | [phone] | | | +--------+--------+ + + + [...] Rd | | | | | | [place], [place] | | | | | | [address] | | | | | | [phone] | | | | | | | | +--------+---------+ + + + documented as of this encounter Visit Diagnoses Not on filedocumented in this encounter"
--- OUTSIDE RECORDS SUMMARY | ~2019-07-14 | XMS | Encounter Summary ---
Demographics + + + | Address | [address] | | | [place] [address] | + + + | Home Phone | | + + + | Preferred Language | Unknown | + + + | Marital Status | Single | + + + | Protestant Affiliation | NON | + + + | Race | or | + + + | Ethnic Group | Not or | + + + Author + + + | Author | [place] [employer] [facility] | + + + | Organization | [facility] | + + + | Address | Unknown | + + + | Phone | Unavailable | + + + Support + + +---------+ + | Name | Relationship | Address | Phone | + + +---------+ + | Alexandria Dixon | ECON | Unknown | | + + +---------+ + Care Team Providers + +------+ + | Care Archives Director Name | Role | Phone | [...] Description | +--------+--------+ + + + | 06/04/ | Refill | Neurosurgery at | Donnie, | Refill Request | | 2006 | | [facility] [address] | [place], | | | | | [place] Mailcode: CH8N | DNP,HOME HELP AIDE,[place] [address] | | | | | [facility] | [address] [place], | | | | | and [facility], | [place] [address] | | | | | [facility] | [phone] | | | | | Floor [place], [place] | | | | | | [address] | | | | | | [phone] | | | +--------+--------+ + + + [...] Rd | | | | | | [place], [place] | | | | | | [address] | | | | | | [phone] | | | | | | | | +--------+---------+ + + + documented as of this encounter Visit Diagnoses Not on filedocumented in this encounter"
--- OUTSIDE RECORDS SUMMARY | ~2019-07-14 | XMS | Encounter Summary ---
Demographics + + + | Address | [address] | | | [place] [address] | + + + | Home Phone | | + + + | Preferred Language | Unknown | + + + | Marital Status | Single | + + + | Alevism Affiliation | NON | + + + | Race | or | + + + | Ethnic Group | Not or | + + + Author + + + | Author | [place] [employer] [facility] | + + + | Organization | [facility] | + + + | Address | Unknown | + + + | Phone | Unavailable | + + + Support + + +---------+ + | Name | Relationship | Address | Phone | + + +---------+ + | Alexandria Dixon | ECON | Unknown | | + + +---------+ + Care Team Providers + +------+ + | Care Chemical Tester Name | Role | Phone | [...] Description | +--------+--------+ + + + | 06/07/ | Refill | Neurosurgery at | Donnie, | Refill Request | | 2012 | | [facility] [address] | [place], | | | | | [place] Mailcode: CH8N | DNP,PUMP OILER,[place] [address] | | | | | [facility] | [address] [place], | | | | | and Healing, | [place] [address] | | | | | Building [address] | [phone] | | | | | [place], [place] | | | | | | [address] | | | | | | [phone] | | | +--------+--------+ + + + [...] Rd | | | | | | [place], [place] | | | | | | [address] | | | | | | [phone] | | | | | | | | +--------+---------+ + + + documented as of this encounter Visit Diagnoses Not on filedocumented in this encounter"
--- OUTSIDE RECORDS SUMMARY | ~2019-07-14 | XMS | Encounter Summary ---
Demographics + + + | Address | [address] | | | [place] [address] | + + + | Home Phone [...] Author + + + | Author | [employer] [facility] | + + + | Organization | [facility] | + + + | Address | Unknown | + + + | Phone | Unavailable | + + + Support + + +---------+ + | Name | Relationship | Address | Phone | + + +---------+ + | Alexandria Dixon | ECON | Unknown | | + + +---------+ + Care Team Providers + +------+ + | Care Machine Stacker Name | Role | Phone | + [...] Description | +--------+--------+ + + + | 02/08/ | Refill | Neurosurgery at | Jaclyn Crawford, | Refill Request | | 2011 | | [facility] [address] | [address] | | | | | [place] Mailcode: CH8N | [address] | | | | | [facility] | [place], [place] | | | | | jannette Marti, | [address] | | | | | Building [address] | [phone] | | | | | [place], [place] | | | | | | [address] | | | | | | [phone] | | | +--------+--------+ + + + [...] | | 2019 | Visit | | [address] | | | | | | [address] | | | | | | [place], [place] | | | | | | [address] | | | | | | [phone] | | | | | | | [...] (HCC) Diabetes insipidus | + + | Hypothyroid Unspecified hypothyroidism | + + | Adrenal insufficiency (HCC) Glucocorticoid deficiency | + + documented in this encounter"
--- OUTSIDE RECORDS SUMMARY | ~2019-07-14 | XMS | Encounter Summary ---
Demographics + + + | Address | [address] [facility] | | | [place] [address] | + + + | Home Phone | | + + + | Preferred Language | Unknown | + + + | Marital Status | Single | + + + | Latter Day Affiliation | NON | + + + | Race | or | + + + | Ethnic Group | Not or | + + + Author + + + | Author | [place] [facility] [employer] [employer] [facility] | + + + | Organization | [facility] | + + + | Address | Unknown | + + + | Phone | Unavailable | + + + Support + + +---------+ + | Name | Relationship | Address | Phone | + + +---------+ + | Alexandria Dixon | ECON | Unknown | | + + +---------+ + Care Team Providers + +------+ + | Care Medical Assistant Secretary Name | Role | Phone | + [...] + + + | Closed | | Cardiac | Diagnoses | Hernandez, | Car Cardiac | | | | Catheterizati | Coronary | Zuleika, | Brickmason Contractor | | | | on | artery | MD [address] | [address] | | | | | disease of | [address] | [address] | | | | | nikolai | [address] | [address] | | | | | artery of | [facility] | | | | | nikolai heart | [address] | [place], [place] | | | | | with stable | Phone: | [phone] | | | | | angina | [phone] | Phone: | | | | | pectoris | Fax: | [phone] | | | | | (HCC) | [phone] | Fax: | | | | | Procedures | | [phone] | | | | | MANAGER SIGN INT | | | | | | | CORONARY | | | | | | | ANGIOGRAM | | | | | | | RI CORONARY | | | | | | | ARTERY ANGIO | | | | | | | S&I RI | | | | | | | PERC CARD | | | | | | | STENT | | | | | | | W/ANGIO, | | | | | | | SNGL ART | | | +--------+--------+ + + + + Reason for Visit + + + | Reason | Comments | + + + | Chest pain | | + + + Consultation (Routine) + +--------+ + + + + | Status | Reason | Specialty | Diagnoses / | Referred By | Referred To | | | | | Procedures | Contact | Contact | + +--------+ + + + + | New Request | | Cardiology | Diagnoses | Sieders, | Car General | | | | | Chest pain | Priscilla Garcia, | [address] | | | | | | PA-C | [address] | | | | | Hypertension | [place] | Mailcode: | | | | | | [place] | [facility] | | | | | | [facility] | [facility] | | | | | | [facility] [address] | and Healing, | | | | | | | Building [address], | | | | | | [address] | 7th floor | | | | | | Way [address] | [place], [place] | | | | | | [address] | [address] | | | | | | [place], | Phone: | | | | | | [place] [address] | [phone] | | | | | | Phone: | Fax: | | | | | | [phone] | [phone] | | | | | | Fax: | | | | | | | [phone] | | + +--------+ + + + + Encounter Details +--------+---------+ + + + | Date | Type | Department | Care Team | Description | +--------+---------+ + + + | 03/29/ | Office | Cardiology in | David Zuleika, | Chest pain, | | 2018 | Visit | [facility] | [address] | unspecified type | | | | [place] at | [address] | (Primary Dx); | | | | [place] [address] [address] | [place], [place] | Coronary artery | | | | [address] | [address] | disease of nikolai | | | | [place], [place] | [phone] | artery of nikolai | | | | [address] | | heart with stable | | | | [phone] | | angina pectoris | | | | | | (HCC); Cardiac mass; | | | | | | Essential | | | | | | hypertension; Mitral | | | | | | valve mass | +--------+---------+ + + + Social History [...] + + + | Blood Pressure | 126/74 | 03/29/2018 10:47 AM | | | | | PDT | | + + + + + | Pulse | 62 | 03/29/2018 10:47 AM | | | | | PDT | | + + + + + | Temperature | - | - | | + + + + + | Respiratory Rate | - | - | | + + + + + | Oxygen Saturation | 95% | 03/29/2018 10:45 AM | | | | | PDT | | + + + + + | Inhaled Oxygen | - | - | | | Concentration | | | | + + + + + | Weight | 125.2 kg (276 lb) | 03/29/2018 10:45 AM | | | | | PDT | | + + + + + | Height | 172.7 cm (5' 8") | 03/29/2018 10:45 AM | | | | | PDT | | + + + + + | Body Mass Index | 41.97 | 03/29/2018 10:45 AM | | | | | PDT | | + + + + + documented in this encounter Patient Instructions Patient Instructions Zuleika Hernandez MD - 03/29/2018 10:30 AM PDTIt was a pleasure seeing you in clinic today. The following are some instructions and information for you. 1. Start ranolazine 500mg twice daily. Let me know if the cost is prohibitive. 2. Lab work today. 3. CT scan (gated cardiac CT) to evaluate for a possible mass in the heart. If you are unab le to schedule this locally then youcan schedule with us at [facility] by calling [phone]. 4. I have referred you for angiogram. You will get a call regarding this to schedule a time . 5. If you have chest pain that doesn't go away with rest and or SL nitroglycerin you should call an ambulance. 6. I will follow-up with you after you get these test done. Timing of my follow-up with you will depend on the test results. 7. Please make a significant effort to change your diet. Please stop chewing tobacco. Please feel free to contact me should questions or concerns arise. If you are electronicall y inclined, communication via our secure [employer] system is the best way to communi sadie non-urgent matters. If you are not already enrolled in [facility], there are instructions later in this handout. For urgent matters (requiring response within 48 hours), please call our office at [phone]. Specifically, the diet should be fresh, unprocessed/unpackaged foods: 1. High in fruits and vegetables and fiber 2. Low in saturated fats and have minimal meat; fish is a more healthful meat and fat sourc e than meat from land animals and free range/wild animals are a better source than farmed or "finished" animals, even fish. 3. Nuts are high in fiber and rich in good oils that promote good heart health, but are als o high in calories, so they are a good snack and food enhancement, but the quantity should b e measured 4. Examples of other healthy fats are olive oil, safflower/sunflower oil and fish oil. 5. Whole grains should always be selected in place of processed grains 6. And in general, processed foods should be minimized entirely in deference to whole unpre pared foods (spend more for better quality food, rather than low cost heavily processed high calorie unhealthy food) 7. Sweeteners taste great, but do not promote good health when used regularly. Minimize in take of sweetened beverages. Artificial sweeteners are generally void of calories, but prob ably promote overconsumption and I do not recommend intake on a regular basis. If you drink sweetened beverages regularly, you may do best by gradually diluting the sweetness over carmenza e and getting used to drinking nonsweetened beverages. Manage unhealthful behaviors. Excessive alcohol intake and smoking cigarettes (any amount) leads to multiple medical conditions and premature from multiple causes. These behav iors can be deeply embedded in our daily life and are very difficult to quit. I highly rosamaria mmended a directed almost occupational approach with the assistance of trained professionals , such as drug counselors, alcoholics anonymous, formal smoking cessation program or even pnotists. Find a way to quit that's right for you. If necessary, schedule an appointment t o review your plan with your physician. Nutrition strategies to help lower your LDL cholesterol: ? Follow a diet rich in plant foods such as vegetables, fruits, whole grains, legumes, nuts , seeds. ? Reduce your saturated fat intake from foods such as red meats, whole & 2% milk, cheese, b utter, poultry skin, coconut, and palm oil. Your goal is 6% or less of total calories from s aturated fat (13 grams a day or less on a 2000-calorie diet) ? Avoid trans fats these fats are found in stick margarine, some baked goods (cookies, pastries, etc.), and some fried foods. In addition to checking nutrition labels for trans fa ts, avoid any food with partially hydrogenated oil in its ingredient list ? Include healthy fats such as olive oil, canola oil, avocado, nuts, and seeds; watch porti ons of these foods as they are high in calories ? Choose fat-free or low-fat dairy products or dairy alternatives such as soy milk. ? Choose small portions of lean protein sources such as fish, skinless poultry, beans, lent ils, tofu; limit red meats and cheese; avoid processed meats such as marc and cold cuts. ? Increase your fiber intake to 35 grams a day. Fiber is found in plant foods such as whole grains (oats, brown rice, quinoa, whole-wheat pasta & bread), beans, lentils, nuts, seeds, fruits, & vegetables; you can also take a fiber supplement such as Metamucil. Increase your fiber intake gradually and make sure to drink adequate fluids to prevent GI discomfort or co nstipation. ? Limit refined grains (such as white rice, white pasta, white bread, or products made with white flour) and added sugars; do not drink sugary drinks ? Begin taking Nature Made CholestOff Original (a plant sterol & stanol supplement availabl e over the counter at drug stores and [employer]) - take 2 caplets twice a day with meals ? Good eating plans include the Mediterranean diet, DASH diet, and OmniHeart diet ? Aim for 2 hours a week of physical activity (more if you re trying to lose weight) ? If you are overweight, losing even a small amount will help lower LDL cholesterol. Reduce calorie intake with portion control and by keeping food logs ? documented in this encounter Progress Notes Josselin Sepulveda MA - 03/29/2018 10:30 AM PDT Images have been requested. Karen Russell MA - 03/29/2018 10:30 AM PDTAccessed pt s right arm wi th a 23 gauge needle. Labs drawn and sent. Pt tolerated procedure well. Site dressed with sterile gauze and tape. Zuleika Ramos MD - 03/29/2018 10:30 AM PDTFormatting of this note might be d ifferent from the original. [facility] [place] Initial Consultation Name: Amairani Ulloa : 1980 Referring Provider: Edd Reyes MD Primary Care Provider: Bernardo CROSS Date of Visit: 03/29/18 Visit start time: 11:05 AM Cardiac Problem List: 1. Premature coronary artery disease s/p PCI 2010 and 2016 2. HTN 3. Active tobacco use (chew) 4. Multiple prior failed attempts at RRA access Other Medical Problems / Important Information: 1. 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 Diabetes 3. Morbid Obesity Chief Complaint: Chief Complaint Patient presents with Chest pain History of Illness: I had the pleasure of seeing Mr. Amairani Ulloa in general cardiology clinic. Mr. Amairani Ulloa is a 37 y.o. male here for an initial visit. He is referred for evaluation of chest pain. He has travelled from [place]. Cardiovascular history: # Premature CAD -- CT x 2 2010 with PCI to the mLCx. Known PERFORMANCE ARCHITECT of RCA with collateral flow from the LCx. -- NSTEMI 04/2017 with "critical 90-95% proximal LAD bifurcation" lesion s/p PCI, procedure was complicated by right arm hematoma and inability to obtain central access via the RRA. He said there was briefly discussion about possible CABG but ultimately it wasn't pursued and he does not know any further details. -- Recurrent angina with the last 4 months # Mobile Mitral Valve Mass -- Evaluated by Dr. 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 Surgery was aborted and plan was for the patient to get a CT scan. -- He has not yet gotten a CT scan on his chest He reports starting to have angina over the last 4-5 months which is typical of his usual c ardiac pain. His pain has progressed to the point where it occurs often at rest, usually in the evenings. The pains happen reliably with exertion. A few weeks ago he had an episode of chest pain which awoke him from his sleep which required 2 SL nitroglycerin. He has noticed becoming more dyspneic. Because of insurance reasons he has not yet been evaluated by a card iologist for his recurrent chest pain. He is maxed out on metoprolol. He tried isosorbide mo nonitrate 30mg for three weeks but had to stop because of unbearable headaches, nausea, vomi ting. He continues to chew tobacco daily. He denies palpitations, presyncope, syncope, orthopnea, PND, or lower extremity edema. Functional status: Mr. Tyler is able to perform all ADLs. He takes his dog for hikes and this causes him ches t pain. He was able to walk up a flight of stairs to this office without chest pain, but he was going at a very slow pace. Review of systems: Review of Systems Constitution: Positive for malaise/fatigue. HENT: Negative. Eyes: Negative. Cardiovascular: Positive for chest pain and dyspnea on exertion. Respiratory: Negative. Endocrine: Negative. Hematologic/Lymphatic: Negative. Skin: Negative. Musculoskeletal: Negative. Gastrointestinal: Negative. Genitourinary: Negative. Neurological: Negative. Psychiatric/Behavioral: Negative. 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 Pituitary adenoma (HCC) Hypogonadism Myocardial infarction (HCC) 2010 Other unspecified back disorder Arthropathy, unspecified, site unspecified Closed fracture of unspecified bone Headache(784.0) CAD (coronary artery disease) 2010 CT, LCx stent and PERFORMANCE ARCHITECT of RCA; cath 06/2016: moderate LAD disease, patent LCx stent, chronic occlusion RCA Essential hypertension Mitral valve mass Diabetes mellitus (HCC) Past Surgical History Procedure Date Left medial rectus recession of 3.0 mm with one-third tendon width infraplacement 10/08 Transsphenoidal resection of pituitary adenoma 09/15/2005 Hx eye surgery 2004 Arthroplasty of left elbow Carpal tunnel release Family history includes Arthritis in his mother; Diabetes in his mother; Heart Attack in hi s mother; Heart Disease in his father and mother; Hypertension in his mother and sister; and Other in his brother (heart murmur). Social History Narrative He lives with his parents. He does not have children. Previously worked in [employer]. Not working because of health issues. He is part nikolai ([facility] [employer]) and part [place]. Allergies Allergen Reactions Bactrim [Sulfamethoxazole-Trimethoprim] Hives, Nausea and Vomiting and Unknown Sores in mouth Sores in mouth Outpatient Prescriptions Marked as Taking for the 03/29/18 encounter (Office Visit) with Shannan Hernandez MD Medication Sig Dispense Refill amLODIPine 10 mg oral tablet Take by mouth. aspirin chewable 81 mg oral tablet,chewable Chew and swallow 81 mg once daily. atorvastatin 40 mg oral tablet Take 80 mg by mouth once daily in the evening. cholecalciferol, vitamin D3, 4,000 unit oral tablet Take 6,000 Units by mouth once broderick y. clopidogrel (PLAVIX) 75 mg oral tablet Take 75 mg by mouth once daily in the morning. DEPO-TESTOSTERONE 200 mg/mL intramuscular oil Inject 200 mg under the skin (SUBC) every fourteen days. desmopressin (DDAVP) 0.2 mg oral tablet Take 1 1/2 tablets in the morning and 2 tablets in the evening. 315 tablet 1 fenofibrate 145 mg oral tablet Take 145 mg by mouth once daily. 1 HYDROcodone-acetaminophen 10-325 mg oral tablet Take 1 tablet by mouth every six hours as needed for moderate pain. 4-6 tabs daily hydrocortisone 20 mg oral tablet Take 1 tablet by mouth once daily. 180 tablet 2 hydrocortisone 5 mg oral tablet Take 1 tablet by mouth once daily. 90 tablet 2 hydrocortisone sodium succinate, PF, (HYDROCORTISONE SODIUM SUCCINATE) 100 mg/2 mL inje ction recon soln Inject 1ml for symptoms of adrenal crisis. Low blood pressure, vomiting, hi gh heart rate. 1 mg 1 levothyroxine 125 mcg oral tablet Take 1 tablet by mouth before breakfast. 90 tablet 1 lisinopril 40 mg oral tablet Take 40 mg by mouth once daily. metFORMIN 500 mg oral tablet 2 tabs at breakfast and one tab at dinner dialy 90 tablet 5 metoprolol tartrate 50 mg oral tablet Take 100 mg by mouth two times daily. nitroglycerin 0.2 mg/hr transdermal patch 24 hour Apply 1 patch to skin as needed. Patc h on period for 12-14 hours; Patch off period for 10-12 hours nitroglycerin 0.4 mg sublingual tablet, sublingual Place 0.4 mg under tongue every five minutes as needed for chest pain. Place under tongue and allow to dissolve. Administer gaye ry 5 minutes, max of 3 doses in 15 minutes. promethazine 25 mg oral tablet Take 1 tablet by mouth four times daily as needed for na usea/vomiting. 20 tablet 1 sertraline HCl (SERTRALINE ORAL) pt reports taking 75 daily Somatropin (NUTROPIN AQ NUSPIN) 10 mg/2 mL (5 mg/mL) subcutaneous cartridge Inject 0.8 mg under the skin (SUBC) once daily. 20 mL 5 Physical Exam Vitals: Filed Vitals: 03/29/2018 10:45 AM 03/29/2018 10:47 AM Height: 1.727 m (5' 8") Weight: 125.2 kg (276 lb) BP: 122/74 126/74 BP location: LEFT ARM RIGHT ARM BP position: SITTING SITTING Pulse: 60 62 SpO2: 95% PainSc: 06 - Severe PainLoc: Back (Upper) BMI: 41.97 kg/(m^2) Physical Exam Constitutional: Morbid obesity Eyes: Pupils are equal, round, and reactive to light. Neck: Thyroid normal. No JVD present. Cardiovascular: Normal rate, regular rhythm, S1 normal and S2 normal. Exam reveals no gall op and no friction rub. No murmur heard. Pulmonary/Chest: Breath sounds normal. Musculoskeletal: He exhibits no edema. Neurological: He is alert and oriented to person, place, and time. Skin: No rash noted. Data I have reviewed the data summarized below if available. Vital Trends Wt Readings from Last 3 Encounters: 03/29/18 125.2 kg (276 lb) 02/18/18 125.8 kg (277 lb 6.4 oz) 05/12/17 122.7 kg (270 lb 8 oz) BP Readings from Last 3 Encounters: 03/29/18 126/74 02/18/18 120/61 05/12/17 131/74 Labs - [facility] Lab Results Component Value Date WBC 9.08 07/07/2016 HB 18.0 07/07/2016 HCT 48.3 07/08/2016 PLT 280 07/07/2016 MCV 84.4 07/07/2016 RDW 41.4 07/07/2016 Lab Results Component Value Date NA 141 02/18/2018 K 4.4 02/18/2018 CL 105 02/18/2018 BICARB 28 02/18/2018 BUN 14 02/18/2018 CR 1.07 02/18/2018 GLU 130 02/18/2018 CA 8.8 02/18/2018 No results found for: CHOL, LDL, HDL, TRI 04/2017 TChol 119 TG 166 LDL 61 HDL 25 Hga1c 7.4 Lab Results Component Value Date AST 24 07/07/2016 ALT 32 07/07/2016 TBILI 0.7 07/07/2016 AP 54 07/07/2016 ALB 3.6 07/07/2016 TP 7.4 07/07/2016 Lab Results Component Value Date TSH 0.97 02/18/2018 No results found for: BNP Lab Results Component Value Date A1C 6.0 (H) 07/07/2016 Lab Results Component Value Date INRPT 0.96 07/07/2016 No results found for: TROPONIN No results found for: NTPROBNP EKG EKG 06/2016 NSR, inferior infarct TTE TTE 08/14/2016 1. The left ventricular cavity size is normal. 2. The LV ejection fraction is normal. 3. Right ventricular size, thickness and function are normal. 4. No significant valvular abnormalities seen. 5. There is a small 6mm x 3mm independently mobile echodensity associated with posterior mitral leaflet subchordal apparatus. There is associated mitral annular calcification. Differentials include flail subchordal apparatus, thrombus, vegetation. Clinical correlation required. 6. Compared to the most recent exam dated, 07/08/2016, MAURA does not show an LV mass or mitral valve disease. 04/24/2017 TTE Mild concentric hypertrophy, otherwise normal echo Holter / Event Monitor none Cardiac stress test None recent Cardiac catheterization [facility] 07/02/2016 RESULTS 1. Left main coronary artery bifurcates and gives rise to the left anterior descending and left circumflex arteries. Left main coronary artery is free of disease. 2. Left anterior descending artery is a large type 4 vessel giving rise to the usual diagonals and septal perforators. The proximal left anterior descending artery at the takeoff of the first diagonal branch has a moderate lesion of 30% to 40%. 3. Left circumflex artery is a nondominant vessel giving rise to the usual marginal branches. Left circumflex artery has a patent stent in the midportion. Otherwise, no obstructive disease. 4. Right coronary artery is a dominant vessel. It is chronically occluded in the midportion. There are [id number] collaterals. IMPRESSION 1. Two-vessel coronary artery disease with moderate disease of the [id number]-[id number] left anterior descending artery. 2. Patent stent in the left circumflex artery. 3. Chronically-occluded right coronary artery with [id number] collaterals. [facility] 04/27/2017 NSTEMI LVEDP 36 Impression: Mr. Tyler is a 37 y.o. male with pituitary adenoma s/p resection 2005 c/b awad hypopituitar ism (follows with [facility] endocrine), morbid obesity, DM, HTN, active tobacco chew user, premat ure CAD with known unrevascularized disease (PERFORMANCE ARCHITECT RCA) s/p multiple PCI last 04/2017 with ROBERTO to pLAD in the setting of NSTEMI, prior concern for possible small mass near the atrial side of the mitral valve who presents with recurrent angina including occasional chest pain at r est. 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 Last [facility] 04/2017 in the setting of NSTEMI demonstrated PERFORMANCE ARCHITECT RCA with co llateral flow from LCx, patent mCx stent, 95% proximal LAD bifurcation stenosis s/p ROBERTO x 1, LVEDP 36. His chest pain resolved after this intervention but started again approximately 4 months ago and has been progressing. He has typical angina and now occasional gets chest pa in at rest. Today he is not complaining of chest pain. ECG shows submm diffuse ST elevation and q-waves in the inferior leads. He is intolerant to isosorbide mononitrate. -- referral for angiogram. Patient advised to avoid significant activity until angiogram is completed. He understands that he is to call 911 if he develops chest pain that does not go away with rest or SL nitroglycerin. Please note that he has had multiple unsuccessful/compl icated attempts at RRA access. -- continue metoprolol 100mg BID -- start ranolazine 500mg BID, EKG checked today (QTc 370) -- labs today including pre angiogram labs and lp(a) -- stop tobacco use, recommended trial of chewing gum instead -- healthy lifestyle changes discussed at length today. Weight loss, exercise. -- in the future would likely benefit from consultation from Dr. 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 I think that the previously seen cardiac mass could be artifact versus posterior wall of the left atrium/mitral annulus. -- gated cardiac CT to fully evaluate Essential hypertension Well controlled today. Goal BP < 130/80. Cr 1.07 and K 4.4 02/2018. -- continue amlodipine 10mg daily -- continue lisinopril 40mg -- continue metoprolol 100mg BID Visit end time: 12:07 PM Thank you for referring Amairani Ulloa to the [facility] [place] for further care. Please call with questions. Zuleika Hernandez M.D. Cartridge Fillersolar pool heating installer [facility] [place] Pager: [phone] Clinic: documented in this en counter Plan of Treatment +--------+---------+ + + + | Date | Type | Specialty | Care Team | Description | +--------+---------+ + + + | 08/15/ | Office | Cardiology | Zuleika Hernandez, | | | 2019 | Visit | | [address] | | | | | | [address] | | | | | | [place], [place] | | | | | | [address] | | | | | | [phone] | | | | | | | | +--------+---------+ + + + documented as of this encounter Procedures + +--------+ + + + | Procedure Name | Priori | Date/Time | Associated Diagnosis | Comments | | | ty | | | | + +--------+ + + + | LIPID LAB - | Routin | 03/29/2018 | Coronary artery | Results for this | | LIPOPROTEIN (A) | e | 11:57 AM | disease of nikolai | procedure are in the | | | | PDT | artery of nikolai | results section. | | | | | heart with stable | | | | | | angina pectoris | | | | | | (HCC) | | + +--------+ + + + | CBC (HEMOGRAM) ONLY | Routin | 03/29/2018 | Chest pain, | Results for this | | | e | 11:57 AM | unspecified type | procedure are in the | | | | PDT | Coronary artery | results section. | | | | | disease of nikolai | | | | | | artery of nikolai | | | | | | heart with stable | | | | | | angina pectoris | | | | | | (HCC) | | + +--------+ + + + | INR | Routin | 03/29/2018 | Chest pain, | Results for this | | | e | 11:57 AM | unspecified type | procedure are in the | | | | PDT | Coronary artery | results section. | | | | | disease of nikolai | | | | | | artery of nikolai | | | | | | heart with stable | | | | | | angina pectoris | | | | | | (HCC) | | + +--------+ + + + | CBC ONLY | Routin | 03/29/2018 | Chest pain, | Results for this | | | e | 11:57 AM | unspecified type | procedure are in the | | | | PDT | Coronary artery | results section. | | | | | disease of nikolai | | | | | | artery of nikolai | | | | | | heart with stable | | | | | | angina pectoris | | | | | | (HCC) | | + +--------+ + + + | 12 LEAD ECG | Routin | 03/29/2018 | Chest pain, | Results for this | | | e | 11:52 AM | unspecified type | procedure are in the | | | | PDT | | results section. | + +--------+ + + + documented in this encounter Results MANAGER SIGN INT CORONARY ANGIOGRAM (04/13/2018 6:16 AM PDT) + + | Specimen | + + | | + + + + + | Narrative | Performed At | + + + | Procedure performed in the [facility]. See procedure notes | | | for details. | | + + + CBC (HEMOGRAM) ONLY (03/29/2018 11:57 AM PDT) + + + + + + | Component | Value | Ref Range | Performed | Pathologist | | | | | At | Signature | + + + + + + | WHITE CELL | 8.24 | 3.50 - 10.80 | [facility] | | | COUNT | | K/cu mm | LABORATORY | | | | | | SERVICES, | | | | | | CORE | | + + + + + + | RED CELL | 6.43 (H) | 4.50 - 6.00 | [facility] | | | COUNT | | M/cu mm | LABORATORY | | | | | | SERVICES, | | | | | | CORE | | + + + + + + | HEMOGLOBIN | 19.1 (H) | 13.5 - 17.5 | [facility] | | | | | g/dL | LABORATORY | | | | | | SERVICES, | | | | | | CORE | | + + + + + + | HEMATOCRIT | 56.5 (H) | 41.0 - 53.0 % | [facility] | | | | | | LABORATORY | | | | | | SERVICES, | | | | | | CORE | | + + + + + + | MCV | 87.9 | 80.0 - 100.0 fL | [facility] | | | | | | LABORATORY | | | | | | SERVICES, | | | | | | CORE | | + + + + + + | MCHC | 33.8 | 32.0 - 36.0 | [facility] | | | | | g/dL | LABORATORY | | | | | | SERVICES, | | | | | | CORE | | + + + + + + | RDW SD | 44.4 | 35.1 - 46.3 fL | [facility] | | | | | | LABORATORY | | | | | | SERVICES, | | | | | | CORE | | + + + + + + | PLATELET | 313 | 150 - 400 K/cu | [facility] | | | COUNT | | mm | LABORATORY | | | | | | SERVICES, | | | | | | CORE | | + + + + + + | MPV | 9.6 (L) | 9.7 - 12.3 fL | [facility] | | | | | | LABORATORY | | | | | | SERVICES, | | | | | | CORE | | + + + + + + | NRBC% | 0.0 | 0.0 - 0.3 % | [facility] | | | | | | LABORATORY | | | | | | SERVICES, | | | | | | CORE | | + + + + + + | NRBC# | 0.00 | 0.00 - 0.02 | [facility] | | | | | K/cu mm | LABORATORY | | | | | | SERVICES, | | | | | | CORE | | + + + + + + + + | Specimen | + + | Blood - Blood | | (substance) | + + + + + | Narrative | Performed At | + + + | New reference ranges for MCV, MCHC, PLT, IG% and IG# effective | [facility] | | 12/17/2017 | LABORATORY | | | [facility] | + + + + + + + + | Performing | Address | City/State/Zipcode | Phone Number | | Organization | | | | + + + + + | [facility] | [address] | [place] [address] | | | SERVICES[facility]ITAL[facility] | [address] | | | + + + + + LIPID LAB - LIPOPROTEIN (A) (03/29/2018 11:57 AM PDT) + +-------+ + + + | Component | Value | Ref Range | Performed | Pathologist | | | | | At | Signature | + +-------+ + + + | LIPOPROTEIN | <6 | <=30 mg/dL | [facility] | | | A - LIPID | | | LABORATORY | | | LAB | | | SERVICES, | | | | | | LIPID | | + +-------+ + + + + + | Specimen | + + | Blood - Blood | | (substance) | + + + + + + + | Performing | Address | City/State/Zipcode | Phone Number | | Organization | | | | + + + + + | [facility] | [address] | [place], [place] | | | SERVICES, LIPID | [address] | [address] | | + + + + + INR (03/29/2018 11:57 AM PDT) + +-------+ + + + | Component | Value | Ref Range | Performed | Pathologist | | | | | At | Signature | + +-------+ + + + | INR | 0.94 | 0.90 - 1.20 INR | [facility] | | | | | | LABORATORY | | | | | | SERVICES, | | | | | | CORE | | + +-------+ + + + + + | Specimen | + + | Blood - Blood | | (substance) | + + + + + | Narrative | Performed At | + + + | INR Therapeutic ranges for full anticoagulation: INR for | [facility] | | Venous Thromboembolism (2.0 - 3.0) INR INR for | LABORATORY | | most patients with mech. valves (2.5 - 3.5) INR | [facility] | + + + + + + + + | Performing | Address | City/State/Zipcode | Phone Number | | Organization | | | | + + + + + | [facility] | [address] | [place] [address] | | | SERVICES[facility]ITALY | [address] | | | + + + + + 12 LEAD ECG (03/29/2018 11:52 AM PDT) + + + + + + | Component | Value | Ref Range | Performed | Pathologist | | | | | At | Signature | + + + + + + | VENTRICULAR | 59 | bpm | [facility] | | | RATE | | | OF | | | | | | CARDIOLOGY | | + + + + + + | ATRIAL RATE | 59 | ms | [facility] | | | | | | OF | | | | | | CARDIOLOGY | | + + + + + + | P-R | 178 | ms | [facility] | | | INTERVAL | | | OF | | | | | | CARDIOLOGY | | + + + + + + | P AXIS | 40 | deg | [facility] | | | | | | OF | | | | | | CARDIOLOGY | | + + + + + + | QRS | 95 | ms | [facility] | | | DURATION | | | OF | | | | | | CARDIOLOGY | | + + + + + + | QT | 377 | ms | [facility] | | | | | | OF | | | | | | CARDIOLOGY | | + + + + + + | QTCB | 374 | ms | [facility] | | | | | | OF | | | | | | CARDIOLOGY | | + + + + + + | R AXIS | 5 | deg | [facility] | | | | | | OF | | | | | | CARDIOLOGY | | + + + + + + | T AXIS | 40 | deg | [facility] | | | | | | OF | | | | | | CARDIOLOGY | | + + + + + + | ECG | Sinus bradycardia | | [facility] | | | IMPRESSION | | | OF | | | | | | CARDIOLOGY | | + + + + + + | ECG | Inferior infarct, old | | [facility] | | | IMPRESSION | | | OF | | | | | | CARDIOLOGY | | + + + + + + | ECG | Borderline ST elevation, | | [facility] | | | IMPRESSION | anterolateral leads- | | OF | | | | ABNORMAL ECG - | | CARDIOLOGY | | + + + + + + | ECG | Electronically signed | | [facility] | | | IMPRESSION | by: PJ HUDSON | | OF | | | | 03-29-2018 16:32:30 | | CARDIOLOGY | | + + + + + + + + | Specimen | + + | | + + + + + | Narrative | Performed At | + + + | | | + + + + + + + + | Performing | Address | City/State/Zipcode | Phone Number | | Organization | | | | + + + + + | [facility] | [address] | [place], [place] | | | CARDIOLOGY | [address] | [address] | | + + + + + documented in this encounter Visit Diagnoses + + | Diagnosis | + + | Chest pain, unspecified type - Primary | + + | 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
--- OUTSIDE RECORDS SUMMARY | ~2019-07-14 | XMS | Encounter Summary ---
Demographics + + + | Address | [address] | | | [place] [address] | + + + | Home Phone | | + + + | Preferred Language | Unknown | + + + | Marital Status | Single | + + + | Mormonism Affiliation | NON | + + + | Race | or | + + + | Ethnic Group | Not or | + + + Author + + + | Author | [employer] [facility] | + + + | Organization | [facility] | + + + | Address | Unknown | + + + | Phone | Unavailable | + + + Support + + +---------+ + | Name | Relationship | Address | Phone | + + +---------+ + | Alexandria Dixon | ECON | Unknown | | + + +---------+ + Care Team Providers + +------+ + | Care Process Engineering Manager Name | Role | Phone | + [...] Refill Request | | 2008 | | [facility] [address] | [place], | | | | | [place] Mailcode: [id number] | DNP,SCARF AND ANNEAL OPERATOR,[place] [address] | | | | | [facility] | [address] [place], | | | | | and [facility], | [place] [address] | | | | | [address] | [phone] | | | | | [place], [place] | | | | | | [address] | | | | | | [phone] | | | +--------+--------+ + + + [...] [address] | | | | | | [place], [place] | | | | | | [address] | | | | | | [phone] | | | | | | | | +--------+---------+ + + + documented as of this encounter Visit Diagnoses Not on filedocumented in this encounter"
--- OUTSIDE RECORDS SUMMARY | ~2019-07-14 | XMS | Encounter Summary ---
Demographics + + + | Address | [address] | | | [place] [address] | + + + | Home Phone | | + + + | Preferred Language | Unknown | + + + | Marital Status | Single | + + + | Latter-Day Affiliation | NON | + + + | Race | or | + + + | Ethnic Group | Not or | + + + Author + + + | Author | [place] [employer] [facility] | + + + | Organization | [facility] | + + + | Address | Unknown | + + + | Phone | Unavailable | + + + Support + + +---------+ + | Name | Relationship | Address | Phone | + + +---------+ + | Alexandria Dixon | ECON | Unknown | | + + +---------+ + Care Team Providers + +------+ + | Care Septic Tank Servicer Name | Role | Phone | + +------+ + | No Pcp Per Patient | PCP | Unavailable | + +------+ + Encounter Details +--------+---------+ + + + | Date | Type | Department | Care Team | Description | +--------+---------+ + + + | 10/25/ | Office | Neurosurgery at | Jaclyn Crawford, | Pituitary adenoma | | 2010 | Visit | [facility] [address] | [address] | ([facility]); 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Ave Mailcode: CH[address]N | [address] | hormone deficiency | | | | [facility] | [place], [place] | (HCC); 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, | [address] | insipidus (HCC); | | | | [address] | [phone] | Hypogonadism male; | | | | [place], [place] | | Hypothyroid; Adrenal | | | | [address] | | insufficiency (HCC) | | | | [phone] | | | +--------+---------+ + + + [...] + + + | Blood Pressure | 130/79 | 10/25/2010 12:23 PM | | | | | PDT | | + + + + + | Pulse | 88 | 10/25/2010 12:23 PM | | | | | PDT | | + + + + + | Temperature | 36.8 C (98.2 F) | 10/25/2010 12:23 PM | | | | | PDT [...] + + + + | Weight | 129.8 kg (286 lb 3.2 | 10/25/2010 12:23 PM | | | | oz) | PDT | | + + + + + | Height | 172.7 cm (5' 8") | 10/25/2010 12:23 PM | | | | | PDT | | + + + + + | Body Mass Index | 43.52 | 10/25/2010 12:23 PM | | | | | PDT | | + + + + + documented in this encounter Progress Notes Jaclyn Crawford MD - 10/25/2010 12:37 PM PDT Reason for visit. Amairani Tyler returns to pituitary clinic for interval review of pituitary symptoms and titration of hormone replacement. 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 Christiano Styles. At this visit; Has had CTR on right hand and less pain. Some post op headache, nausea and dizziness Some worsening joint and back pain. No temperature dysregulation No difficulty with sleep, memory concentration unchanged Sexual function OK No visual changes Mood stable. Periodic mild headaches Many recent colds and had to increase HC dose over several weeks. Also not consistent with both GH and test. Exact date of onset of symptoms is unknown Review of systems negative other than as stated above. Physical Exam: Blood pressure 130/79, pulse 88, temperature 36.8 C (98.2 F), temperature source Oral, height 1.727 m (5' 8"), weight 129.819 kg (286 lb 3.2 oz). General: A pleasant man who looks stated age in no acute distress, well nourished, and well developed.Acanthosis nigricans HEENT: Normocephalic and atraumatic. Pupils are equally [...] BMP,IGF-1, TSH, Free T4, Testosterone, Prolactin pending Current outpatient prescriptions:desmopressin (DDAVP) 0.2 mg Oral Tablet, Take 1 Tab by ana th. 1 and a half tablet (0.3mg) by oral route q am and take 2 tablets in pm, Disp: 315 Tab, Rfl: 1 hydrocortisone 10 mg Oral Tablet, Take by mouth once daily. Take up to 4 tabs prn surgery, fever, vomiting, Disp: 80 Tab, Rfl: 1 hydrocortisone 20 mg Oral Tablet, Take 1 Tab by mouth two times daily., Disp: 60 Tab, Rfl: 1 levothyroxine (SYNTHROID) 175 mcg Oral Tablet, Take 1 Tab by mouth once daily., Disp: 90 Ta b, Rfl: 1 nortriptyline 25 mg Oral Capsule, Take 1 Cap by mouth once daily at bedtime. Can increase t o 1 tablet morning and night if headache persists., Disp: 30, Rfl: 3 somatropin (GENOTROPIN) 0.4 mg/0.25 mL Subcutaneous Syringe, Inject 0.4 mg under the skin ( SUBC) once daily., Disp: 36 mg, Rfl: 1 testosterone (ANDROGEL) 1 %(50 mg/5 gram) Transdermal Gel in Packet, 1 Packet by Topical ro deering once daily., Disp: 30 Packet, Rfl: 5 triamcinolone 55 mcg Nasal Aerosol, [place], Instill 2 Sprays into each nostril once daily., Disp: 1, Rfl: 0 Assessment and discussion: Pt generally doing well. Had surgery last week on carpel tunnel release right hand and will f.up in Jul with CTR on left hand. Back pain lumbar disc bulge by MRI and is pending furthe r treatment. Amairani did not take any extra hydrocortisone for CTR and did have some symptoms o f AI the next day. We reviewed when to take extra HC and he is reminded to take and extra do se of hydrocortisone pre op and let anesthesia team know that he is adrenally insufficient a nd will need stress dose steroids. Otherwise he is doing well and has no symptoms of endocri ne hormone deficit. I answered pt and mother's questions to their satisfaction. Plan 1. Adrenals. Pt will continue 20mg hydrocortisone daily. He will increase dose with surgery . We discussed in detail about adrenal insufficiency The nature of the hormonal deficit and the rationale for treatment Maintenance medications and adjustment during minor illnesses When to consult a physician When and how to inject a glucocorticoid for emergencies Glucocorticoid regimens The ideal glucocorticoid replacement therapy would: Mimic the endogenous cortisol rhythm, with a marcio at bedtime and peak values in the display associate before waking Use the lowest possible dose without inducing Cushingoid signs and symptom The average daily secretion rate of cortisol in normal subjects is 2.7 to 14 mg/M2/day, wit h some interindividual variation in metabolism of the steroids and the fact that a single do se is less effective than the same amount of steroid administered in multiple doses. 2. Testosterone level pending. Will change to Testim if level remains low. 3. Growth hormone. IGF-1 pending. No change in dose. Patient is irregular with dosing GH effects Improvement in body composition is probably the best documented effect of growth hormone tr eatment in adults with hypopituitarism. There are conflicting data on the effect of growth hormone replacement on serum lipids. There is evidence that cardiovascular function and risk can be improved by growth hormone t herapy. In a 12-month prospective controlled cohort study of 20 growth hormone-deficient men and women, serum lipid profiles, plasma fibrinogen concentrations, and systolic function im proved, but were still abnormal compared with normal subjects, suggesting that more than 12 months of growth hormone therapy may be required to normalize cardiovascular risk factors an d performance. Many reports have demonstrated an increase in bone mineral density when growth hormone is a dministered to patients with growth hormone deficiency, but most did not have a placebo cont rol group. Growth hormone caused a significant decrease in the sense of mental distress, as determined by the Garcias Symptom Check List, and an improvement of borderline statistical significanc e in the sense of well-being, as determined by the [place] Health Profile. Two other plac ida-controlled, double-blinded studies, however, showed no effect of growth hormone compared to placebo on quality of life. We also discussed adv effects of GH Side effects The most common side effects of growth hormone treatment in adults with hy popituitarism are peripheral edema, arthralgias, carpal tunnel syndrome, paresthesias, and w orsening of glucose tolerance. Exogenous growth hormone therapy does not appear to be associated with hypothalamic-pituita ry tumor growth or recurrence. This was illustrated in a study of 100 patients whose hypopit uitarism was secondary to a hypothalamic-pituitary tumor and/or its treatment. When they wer e subsequently treated with growth hormone, recurrence was rare during three years of observ ation . Although most of these patients had been treated by radiation to the tumor, the lack of evidence that GH treatment stimulates any kind of tumor growth suggests that the presenc e of residual adenoma should not be a major factor in the decision to treat with GH. Benign intracranial hypertension (pseudotumor cerebri) has also been reported, mostly in ch ildren. Macular edema or proliferative retinopathy in the absence of diabetes mellitus has b een described in a few patients However, this complication is rare; fundoscopic examination of 61 growth hormone-deficient adults receiving long-term growth hormone therapy revealed n o retinal abnormalities. Active malignancy is considered to be a contraindication to growth hormone treatment, becau se of the theoretical possibility that the treatment could stimulate tumor growth, but avail able evidence to date does not support this concern .. Side effects appear to be more common in patients who are older and heavier, and are over t reated, as judged by a high serum IGF-1 concentration during therapy . An open-label study o etta three years suggested that the adverse effects might persist . 4.Prolactin level pending. No DA is anticipated. 5. DI.Appears controlled. BMP pending. No change in DDAVp anticiapted. 5. 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 Reviewed available literature and answered all questions. This is a complex patient requiring multiple decision making points regarding multiple horm onal replacement-treatment and review of multiple past medical records including various lab s We also spent some time discussing risks and benefits of treatment options, instructions f or treatment and follow up, importance of compliance with chosen treatment. We discussed diagnosis, treatment, imaging studies and follow up. I spent 40 minutes [id number] time with this patient of which over 50% was spent in medic ally indicated counseling and education pertaining to the issues discussed above. DEXA here when here for next appt in about 6 Mo. CGY visit, no testing Electronically sign ed by Jaclyn Crawford MD at 10/25/2010 5:25 PM PDTdocumented in this encounter Plan of Treatment +--------+---------+ + + + | Date | Type | Specialty | Care Team | Description | +--------+---------+ + + + | 08/15/ | Office | Cardiology | Zuleika Hernandez, | | | 2020 | Visit | | [address] [facility] | | | | | | [address] | | | | | | [place], [place] | | | | | | [address] | | | | | | [phone] | | | | | | | | +--------+---------+ + + + documented as of this encounter Results HEMOGLOBIN A1C, BLOOD (10/25/2010 12:57 PM PDT) + +---------+ + + + | Component | Value | Ref Range | Performed | Pathologist | | | | | At | Signature | + +---------+ + + + | HEMOGLOBIN | 5.9 (H) | <5.7 % | [facility] | | | A1C | | | REGIONAL | | | | | | LABORATORY | | + +---------+ + + + + + | Specimen | + + | Blood - Blood | + + + + + | Narrative | Performed At | + + + | HbA1c Interpretive Information If you are screening for | [facility] | | diabetes: <5.7 Non-diabetic 5.7-6.4 | REGIONAL | | Prediabetes >6.4 Diabetes, if confirmed For | LABORATORY | | monitoring of diabetes control: <7.0 Usual goal of | | | treatment; low risk for complications 7.0-8.0 Some | | | increased risk for long-term complications >8.0 | | | Higher risk of complications; strongly consider | | | intensifying therapy [facility]) | | | [facility] [place] [address] | | | [place] [address] | | + + + + + + + + | Performing | Address | City/State/Zipcode | Phone Number | | Organization | | | | + + + + + | [facility] | [address] | [place] [address] | | | LABORATORY | | | | + + + + + BASIC METABOLIC SET (NA, K, CL, TCO2, BUN, CR, GLU, CA) (10/25/2010 12:57 PM PDT) + + + + + + | Component | Value | Ref Range | Performed | Pathologist | | | | | At | Signature | + + + + + + | GLUCOSE, | 103 (H) | 60 - 99 mg/dL | [facility] | | | PLASMA | | | DEPARTMENT | | | (LAB) | | | OF | | | | | | PATHOLOGY | | + + + + + + | BUN, PLASMA | 18 | 6 - 20 mg/dL | [facility] | | | (LAB) | | | DEPARTMENT | | | | | | OF | | | | | | PATHOLOGY | | + + + + + + | CREATININE | 0.71 | 0.70 - 1.30 | [facility] | | | PLASMA | | mg/dL | DEPARTMENT | | | (LAB) | | | OF | | | | | | PATHOLOGY | | + + + + + + | SODIUM, | 136 | 134 - 143 | [facility] | | | PLASMA | | mmol/L | DEPARTMENT | | | (LAB) | | | OF | | | | | | PATHOLOGY | | + + + + + + | POTASSIUM, | 4.0 | 3.4 - 5.0 | [facility] | | | PLASMA | | mmol/L | DEPARTMENT | | | (LAB) | | | OF | | | | | | PATHOLOGY | | + + + + + + | CHLORIDE, | 103 | 97 - 108 mmol/L | [facility] | | | PLASMA | | | DEPARTMENT | | | (LAB) | | | OF | | | | | | PATHOLOGY | | + + + + + + | TOTAL CO2, | 26Comment: New Total | 22 - 29 mmol/L | [facility] | | | PLASMA | CO2 reference range | | DEPARTMENT | | | (LAB) | effective 07/02/10. | | OF | | | | | | PATHOLOGY | | + + + + + + | CALCIUM, | 8.9 | 8.6 - 10.2 | [facility] | | | PLASMA | | mg/dL | DEPARTMENT | | | (LAB) | | | OF | | | | | | PATHOLOGY | | + + + + + + | EGFR | > 60 | >60 mL/min | [facility] | | | - | | | DEPARTMENT | | | [place] | | | OF | | | [...] + | ANION GAP | 7 | 4 - 11 mmol/L | [facility] [...] | + + + + + | [facility] | [address] | [place] [address] | | | PATHOLOGY | [address] | | | + + + + + PROLACTIN, SERUM (10/25/2010 12:57 PM PDT) + +-------+ + + + | Component | Value | Ref Range | Performed | Pathologist | | | | | At | Signature | + +-------+ + + + | PROLACTIN | 5 | 3 - 13 ng/ml | [facility] | | | | | | REGIONAL | | | | | | LABORATORY | | + +-------+ + + + + + | Specimen | + + | Blood - Blood | + + + + + | Narrative | Performed At | + + + | [facility] | [facility] | | [facility] [place] [address] | REGIONAL | | [place] [address] | LABORATORY | + + + + + + + + | Performing | Address | City/State/Zipcode | Phone Number | | Organization | | | | + + + + + | [facility] | [address] | [place] [address] | | | LABORATORY | | | | + + + + + INSULIN GROWTH FACTOR-1, SERUM (10/25/2010 12:57 PM PDT) + +-------+ + + + | Component | Value | Ref Range | Performed | Pathologist | | | | | At | Signature | + +-------+ + + + | IGF-1 | 128 | 115 - 307 ng/mL | [facility] [...] [facility] | [facility] | | [place] [address] | REGIONAL | | [place] [address] | LABORATORY | + + + + + + + + | Performing | Address | City/State/Zipcode | Phone Number | | Organization | | | | + + + + + | [facility] | [address] | [place] [address] | | | LABORATORY | | | | + + + + + TESTOSTERONE, SERUM (10/25/2010 12:57 PM PDT) + +-------+ + + + | Component | Value | Ref Range | Performed | Pathologist | | | | | At | Signature | + +-------+ + + + | TESTOSTERON | 312 | 175 - 781 ng/dl | [facility] | | | E, SERUM | | | REGIONAL | | | | | | LABORATORY | | + +-------+ + + + + + | Specimen | + + | Blood - Blood | + + + + + | Narrative | Performed At | + + + | [facility] ([facility] | [address] | | [place] [address] [address] [facility] | REGIONAL | | [place] [address] | LABORATORY | + + + + + + + + | Performing | Address | City/State/Zipcode | Phone Number | | Organization | | | | + + + + + | [facility] | [address] | [place] [address] | | | LABORATORY | | | | + + + + + FREE T4, SERUM (10/25/2010 12:57 PM PDT) + +-------+ + + + [...] [facility] | [facility] | | [facility] [place] [address] | REGIONAL | | [place] [address] | LABORATORY | + + + + + + + + | Performing | Address | City/State/Zipcode | Phone Number | | Organization | | | | + + + + + | [facility] | [address] | [place] [address] | | | LABORATORY | | | | + + + + + ACTH, PLASMA (10/25/2010 12:57 PM PDT) + + + + + + | Component | Value | Ref Range | Performed | Pathologist | | | | | At | Signature | + + + + + + | ACTH,PLASMA | 12 | <46 pg/mL | [facility] | | | | | | REGIONAL | | | | | | LABORATORY | | + + + + + + | TIME | 0 | Hrs:mins | [facility] | | | | | | REGIONAL | | | | | | LABORATORY | | + + + + + + | SITE | None Given | | [facility] | | | | | | REGIONAL | | | | | | LABORATORY | | + + + + + + + + | Specimen | + + | Blood - Blood | + + + + + | Narrative | Performed At | + + + | [facility] ([facility]) | [facility] | | [facility] [address] | REGIONAL | | [place] [address] | LABORATORY | + + + + + + + + | Performing | Address | City/State/Zipcode | Phone Number | | Organization | | | | + + + + + | [facility] | [address] | [place] [address] | | | LABORATORY | | | [...]
--- OUTSIDE RECORDS SUMMARY | ~2019-07-14 | XMS | Encounter Summary ---
Demographics + + + | Address | [address] | | | [place] [address] | + + + | Home Phone | | + + + | Preferred Language | Unknown | + + + | Marital Status | Single | + + + | Adventist Affiliation | NON | + + + | Race | or | + + + | Ethnic Group | Not or | + + + Author + + + | Author | [employer] [facility] | + + + | Organization | [facility] | + + + | Address | Unknown | + + + | Phone | Unavailable | + + + Support + + +---------+ + | Name | Relationship | Address | Phone | + + +---------+ + | Alexandria Dixon | ECON | Unknown | | + + +---------+ + Care Team Providers + +------+ + | Care Engine Oiler Name | Role | Phone | + +------+ + | No Pcp Per Patient | PCP | Unavailable | + +------+ + Encounter Details +--------+ + + + + | Date | Type | Department | Care Team | Description | +--------+ + + + + | 04/01/ | Can Labeler | Otolaryngology | Misael West, | Acute Maxillary | | 2005 | | Head and Neck | MD [address] | Sinusitis (Primary | | | | Surgery Services at | [address] | Dx) | | | | PPV [address] | [place], [place] | | | | | [address] | [address] | | | | | Mailcode: JORDAN | [phone] | | | | | Dwain Zendejas | | | | | | [place], [place] | | | | | | [address] | | | | | | [phone] | | | +--------+ + + + [...] | | 2019 | Visit | | [address] | | | | | | [address] | | | | | | [place], [place] | | | | | | [address] | | | | | | [phone] | | | | | | | | +--------+---------+ + + + documented as of this encounter Procedures + +--------+ + + + | Procedure Name | Priori | Date/Time | Associated Diagnosis | Comments | | | ty | | | | + +--------+ + + + | CT SCREEN SINUS | Routin | 04/03/2006 | Acute Maxillary | Results for this | | (CORONAL) WO | e | 1:26 PM | Sinusitis | procedure are in the | | CONTRAST | | PDT | | results section. | + +--------+ + + + documented in this encounter Results CT SCREEN SINUS (CORONAL) WO (04/03/2006 1:26 PM PDT) + + + + + + | Component | Value | Ref Range | Performed | Pathologist | | | | | At | Signature | + + + + + + | CT SCREEN | Radiologist 1: DOMI, | | | | | SINUS | Johan BAUMANNCoronal | | | | | (CORONAL) | sinus CT without | | | | | WO | contrast 04/03/06 | | | | | | Clinical history: | | | | | | Sinusitis. Technique: | | | | | | Direct coronal 3 mm | | | | | | thick images were | | | | | | obtained throughthe | | | | | | paranasal sinuses | | | | | | without intravenous | | | | | | contrast. Images | | | | | | werereviewed using bone | | | | | | and soft tissue windows. | | | | | | Findings: Comparison is | | | | | | made with prior outside | | | | | | MRI dated 10/31/05.There | | | | | | is a near midline | | | | | | defect in the floor of | | | | | | the sella fromprevious | | | | | | transphenoidal resection | | | | | | of pituitary tumor. | | | | | | There isstable soft | | | | | | tissue in the bilateral | | | | | | sphenoid sinuses, | | | | | | whichappears lobulated, | | | | | | since the most recent | | | | | | MRI dated 10/31/05. | | | | | | Thereis surrounding | | | | | | bony sclerosis and | | | | | | thickening of the | | | | | | sphenoid sinuswalls, | | | | | | without bony erosive or | | | | | | destructive changes. | | | | | | Minimalmucosal | | | | | | thickening is present in | | | | | | both maxillary sinuses. | | | | | | The otherparanasal | | | | | | sinuses appear well | | | | | | aerated, without air | | | | | | fluid levels.There are | | | | | | no areas of osseous | | | | | | erosion or expansion. | | | | | | Theosteomeatal units | | | | | | appear patent | | | | | | bilaterally. Regional | | | | | | softtissues and bones | | | | | | are normal. Impression: | | | | | | Postsurgical defect in | | | | | | the floor of sella | | | | | | fromprevious | | | | | | postsurgical resection | | | | | | of pituitary tumor. | | | | | | Lobulatedsoft tissue | | | | | | seen in the bilateral | | | | | | sphenoid sinuses, | | | | | | withsurrounding sphenoid | | | | | | wall thickening in | | | | | | sclerosis | | | | | | likelyrepresenting | | | | | | chronic inflammatory | | | | | | changes, is not | | | | | | significantlychanged | | | | | | from prior postsurgical | | | | | | MRI dated 10/03/05. | | | | + + + [...] + | Diagnosis | + + | Acute maxillary sinusitis - Primary | + + documented in this encounter"
--- OUTSIDE RECORDS SUMMARY | ~2019-07-14 | XMS | Encounter Summary ---
Demographics + + + | Address | [address] | | | [place] [address] | + + + | Home Phone | | + + + | Preferred Language | Unknown | + + + | Marital Status | Single | + + + | Christian Affiliation | NON | + + + | Race | or | + + + | Ethnic Group | Not or | + + + Author + + + | Author | [place] [facility] | + + + | Organization | [facility] | + + + | Address | Unknown | + + + | Phone | Unavailable | + + + Support + + +---------+ + | Name | Relationship | Address | Phone | + + +---------+ + | Alexandria Dixon | ECON | Unknown | | + + +---------+ + Care Team Providers + +------+ + | Care Order Fulfillment Specialist Name | Role | Phone | [...] Registratio | [address] | [address] | | | | n | [address] Mailcode: [id number] | [address] | | | | | [place], [place] | [place] [address] | | | | | [address] | | | | | | [phone] | | | +--------+ + + + [...] [address] | | | | | | [place], [place] | | | | | | [address] | | | | | | [phone] | | | | | | | | +--------+---------+ + + + documented as of this encounter Visit Diagnoses Not on filedocumented in this encounter"
--- OUTSIDE RECORDS SUMMARY | ~2019-07-14 | XMS | Encounter Summary ---
Demographics + + + | Address | [address] | | | [place] [address] | + + + | Home Phone [...] + + + | Author | [place] [facility] | + + + | Organization | [facility] | + + + | Address | Unknown | + + + | Phone | Unavailable | + + + Support + + +---------+ + | Name | Relationship | Address | Phone | + + +---------+ + | Alexandria Dixon | ECON | Unknown | | + + +---------+ + Care Team Providers + +------+ + | Care Spin Table Operator Name | Role | Phone | + +------+ + | No Pcp Per Patient | PCP | Unavailable | + +------+ + Reason for Visit Office Visit - E/M Services (Routine) +--------+--------+ + + + + | Status | Reason | Specialty | Diagnoses / | Referred By | Referred To | | | | | Procedures | Contact | Contact | +--------+--------+ + + + + | Closed | | Neurological | Diagnoses | Non-[facility] | [place], | | | | Surgery | Benign | Epic Dept | Cathie, | | | | | neoplasm of | | DNP,COMPRESSOR OPERATOR [place] | | | | | pituitary | | [address] | | | | | gland and | | Ave | | | | | craniopharyn | | [place], [place] | | | | | geal duct | | [address] | | | | | (pouch) | | Phone: | | | | | ([facility]) | | [phone] | | | | | Procedures | | Fax: | | | | | MA ESTAB | | [phone] | | | | | PATIENT | | | | | | | LEVEL 5 | | | +--------+--------+ + + + + Encounter Details +--------+---------+ + + + | Date | Type | Department | Care Team | Description | +--------+---------+ + + + | 11/30/ | Office | Neurosurgery at | Donnie, | Pituitary adenoma | | 2009 | Visit | [facility] [address] | Cathie, | ([facility]); 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Ave Mailcode: [id number] | DNP,COMPRESSOR OPERATOR [place] [address] | hormone deficiency | | | | [place] for [facility] | [address] [place], | ([facility]); 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, | [place] [address] | insipidus ([facility]); | | | | Building [address] | [phone] | Hypogonadism male; | | | | [place], [place] | | Hypothyroid; Adrenal | | | | [address] | | insufficiency (HCC) | | | | [phone] | | | +--------+---------+ + + + [...] + + + | Blood Pressure | 143/88 | 11/30/2009 1:28 PM | | | | | PDT | | + + + + + | Pulse | 88 | 11/30/2009 1:28 PM | | | | | PDT | | + + + + + | Temperature | - | - | | + + + + + | Respiratory Rate | 16 | 11/30/2009 1:28 PM | | | | | PDT | | + + + + + | Oxygen Saturation | - | - | | + + + + + | Inhaled Oxygen | - | - | | | Concentration | | | | + + + + + | Weight | 127 kg (279 lb 14.4 | 11/30/2009 1:28 PM | | | | oz) | PDT | | + + + + + | Height | - | - | | + + + + + | Body Mass Index | 42.56 | 06/22/2009 9:46 AM | | | | | PST | | + + + + + documented in this encounter Progress Notes Cathie Fields, DNP,COMPRESSOR OPERATOR [place] - 11/30/2009 2:26 PM PDTReason for visit. Amairani Tyler retur ns to pituitary clinic 11/30/09 for interval review of pituitary symptoms and titration of h ormone replacement. 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 Christiano Styles. At this visit Symptoms and Complaints: Headache: Same (11/30/091431) Nasal dripping or salty taste in mouth: Same (11/30/091431) Increased urination: Same (1431) Has lost some weight but Began having back pain and is now undergoing physical therapy x 5 weeks and was not helping. Had MRI of neck Continues to have wrist pain No visual changes No temperature dysregulation No weakness or swelling No difficulty sleeping no nocturia No polyuria or polydipsia No breast discomfort or discharge Sexual funtion intact Exact date of onset of symptoms is unknown Review of systems negative other than as stated above. Physical Exam: Blood pressure 143/88, pulse 88, resp. rate 16, weight 126.962 kg (279 lb 14.4 oz). Remainder of physical exam is unchanged from previous visit. LABS BMP,IGF-1, TSH, Free T4, Testosterone, Prolactin pending Assessment and discussion: Pt generally doing well. Has had some back pain and is pending MRI after failing to improve with PT. He has not taking LT4 for the last several days but otherwise has no symptoms of e ndocrine hormone deficit. I answered pt and girlfriends questions to their satisfaction. Plan 1. Adrenals. Pt will continue 20mg hydrocortisone daily. No need to increase with current b ack pain. 2. Testosterone level pending. Will change to Testim if level remains low. 3. Growth hormone. IGF-1 pending. Will increase dose if remains low. 4.Prolactin level pending. No DA is anticipated. 5. DI.Appears controlled. BMP pending. No change in DDAVp anticiapted. 5. MRI 03/20with MILK DRYING MACHINE OPERATOR, RM labs I spent 40 mins in face to face evaluation of this patient of which over 50% was spent in skyler olivia and coordination of care documented in this encounter Plan of Treatment +--------+---------+ + + + | Date | Type | Specialty | Care Team | Description | +--------+---------+ + + + | 08/15/ | Office | Cardiology | Zuleika Hernandez, | | | 2019 | Visit | | [address] | | | | | | [address] | | | | | | [place], [place] | | | | | | [address] | | | | | | [phone] | | | | | | | | +--------+---------+ + + + documented as of this encounter Results VITAMIN D, 25-HYDROXY, SERUM (11/30/2009 2:31 PM PDT) + + + + + + | Component | Value | Ref Range | Performed | Pathologist | | | | | At | Signature | + + + + + + | VITAMIN D | 10 (L)Comment: REFERENCE | 30 - 80 ng/mL | | | | 25 HYDROXY | INTERVAL: Vitamin D, | | | | | | 25-Hydroxy This assay | | | | | | accurately quantifies | | | | | | the sum of vitamin | | | | | | D3,25-hydroxy and | | | | | | vitamin D2, 25-hydroxy. | | | | | | 0-17 years:Deficiency: | | | | | | less than 20 | | | | | | ng/mLOptimum level: | | | | | | greater than or equal to | | | | | | 20 ng/mL(Jose CAMACHO et | | | | | | al. Pediatrics 2008; | | | | | | 122: 1128-38.) 18 years | | | | | | and older:Deficiency: | | | | | | Less than 20 | | | | | | ng/mLInsufficiency: | | | | | | 20-29 ng/mLOptimum | | | | | | Level: 30-80 | | | | | | ng/mLPossible Toxicity: | | | | | | Greater than 150 ng/mL | | | | | | New reference | | | | | | range effective | | | | | | 09/25/09. | | | | + + + + + + + + | Specimen | + + | Blood - Blood | + + + + + + + | Performing | Address | City/State/Zipcode | Phone Number | | Organization | | | | + + + + + | [facility] | [address] | [place], [place] | | | [facility] | | [address] | | + + + + + PROLACTIN, SERUM (11/30/2009 2:31 PM PDT) + +-------+ + + + [...] Way Lab) [place] | [place] | | [place] [address] [facility] | REGIONAL | | [place] [address] | LABORATORY | + + + + + + + + | Performing | Address | City/State/Zipcode | Phone Number | | Organization | | | | + + + + + | [facility] | [address] | [place] [address] | | | LABORATORY | | | | + + + + + TESTOSTERONE, SERUM (11/30/2009 2:31 PM PDT) + +---------+ + + + | Component | Value | Ref Range | Performed | Pathologist | | | | | At | Signature | + +---------+ + + + | TESTOSTERON | 172 (L) | 175 - 781 ng/dl | [facility] [...] [place] | [place] | | [place] [address] [facility] | REGIONAL | | [place] [address] | LABORATORY | + + + + + + + + | Performing | Address | City/State/Zipcode | Phone Number | | Organization | | | | + + + + + | [facility] | [address] | [place] [address] | | | LABORATORY | | | | + + + + + INSULIN GROWTH FACTOR-1, SERUM (11/30/2009 2:31 PM PDT) + +-------+ + + + | Component | Value | Ref Range | Performed | Pathologist | | | | | At | Signature | + +-------+ + + + | IGF-1 | 154 | 115 - 307 ng/mL | [facility] [...] [place] | [place] | | [place] [address] | REGIONAL | | [place] [address] | LABORATORY | + + + + + + + + | Performing | Address | City/State/Zipcode | Phone Number | | Organization | | | | + + + + + | [facility] | [address] | [place] [address] | | | LABORATORY | | | | + + + + + FREE T4, SERUM (11/30/2009 2:31 PM PDT) + +-------+ + + + | Component | Value | Ref Range | Performed | Pathologist | | | | | At | Signature | + +-------+ + + + | FREE T4, | 1.0 | 0.6 - 1.2 ng/dL | [facility] | | | SERUM | | | REGIONAL | | | | | | LABORATORY | | + +-------+ + + + + + | Specimen | + + | Blood - Blood | + + + + + | Narrative | Performed At | + + + | Free T4 Reference Range change effective 12/26/08 | [place] | | [facility] [place] | REGIONAL | | [place] [address] [address] [facility] | LABORATORY | | [place] [address] | | + + + + + + + + | Performing | Address | City/State/Zipcode | Phone Number | | Organization | | | | + + + + + | [facility] | [address] | [place] [address] | | | LABORATORY | | | | + + + + + BASIC METABOLIC SET (NA, K, CL, TCO2, BUN, CR, GLU, CA) (11/30/2009 2:31 PM PDT) + + + + + + | Component | Value | Ref Range | Performed | Pathologist | | | | | At | Signature | + + + + + + | GLUCOSE, | 133 [...] + + + + | CREATININE | 0.65 (L) | 0.70 - 1.30 | [facility] | [...] + + + + | POTASSIUM, | 3.7 | 3.4 - 5.0 | [facility] | | | PLASMA | | mmol/L | DEPARTMENT | | | (LAB) | | | OF | | | | | | PATHOLOGY | | + + + + + + | CHLORIDE, | 107 | 97 - 108 mmol/L | [facility] | | | PLASMA | | | DEPARTMENT | | | (LAB) | | | OF | | | | | | PATHOLOGY | | + + + + + + | CALCIUM, | 9.2 | 8.6 - 10.2 | [facility] | | | PLASMA | | mg/dL | DEPARTMENT | | | (LAB) | | | OF | | | | | | PATHOLOGY | | + + + + + + | TOTAL CO2, | 26 | 23 - 31 mmol/L | [facility] | | | PLASMA | | | DEPARTMENT | | | (LAB) | | | OF | | | | | | PATHOLOGY | | + + + + + + | EGFR | > 60 | >60 mL/min | [facility] | | | - | | | DEPARTMENT | | | [facility] | | | OF | | | [...] | + + + + + | [facility] | [address] | [place] [address] | | | PATHOLOGY | [address] [...]
--- OUTSIDE RECORDS SUMMARY | ~2019-07-14 | XMS | Encounter Summary ---
Demographics + + + | Address | [address] | | | [place] [address] | + + + | Home Phone | | + + + | Preferred Language | Unknown | + + + | Marital Status | Single | + + + | Baptism Affiliation | NON | + + + | Race | or | + + + | Ethnic Group | Not or | + + + Author + + + | Author | [place] [facility] [facility] | + + + | Organization | [facility] | + + + | Address | Unknown | + + + | Phone | Unavailable | + + + Support + + +---------+ + | Name | Relationship | Address | Phone | + + +---------+ + | Alexandria Dixon | ECON | Unknown | | + + +---------+ + Care Team Providers + +------+ + | Care Scientific Recruiter Name | Role | Phone | + +------+ + | Priscilla Ramírez PA-C | PCP | | + +------+ + Encounter Details +--------+ + + + + | Date | Type | Department | Care Team | Description | +--------+ + + + + | 10/16/ | Ancillary | Registration [id number] | [address], | | | 2006 | Registratio | [address] | [address] | | | | n | Abdoulaye Mailcode: [id number] | [address] [place], [place] | | | | | [place], [place] | [address] | | | | | [address] | | | | | | [phone] | | | +--------+ + + + [...] | | 2019 | Visit | | [address] | | | | | | [address] | | | | | | [place], [place] | | | | | | [address] | | | | | | [phone] | | | | | | | | +--------+---------+ + + + documented as of this encounter Visit Diagnoses Not on filedocumented in this encounter"
--- OUTSIDE RECORDS SUMMARY | ~2019-07-14 | XMS | Encounter Summary ---
Demographics + + + | Address | [address] | | | [place] [address] | + + + | Home Phone [...] Author + + + | Author | [place] [facility] | + + + | Organization | [facility] | + + + | Address | Unknown | + + + | Phone | Unavailable | + + + Support + + +---------+ + | Name | Relationship | Address | Phone | + + +---------+ + | Alexandria Dixon | ECON | Unknown | | + + +---------+ + Care Team Providers + +------+ + | Care Integration Solution Architect Name | Role | Phone | + [...] Description | +--------+--------+ + + + | 07/27/ | Refill | Neurosurgery at | Donnie, | Refill Request | | 2014 | | [facility] [address] | Cathie, | | | | | [place] Mailcode: CH8N | DNP,BOOKKEEPING MACHINE MECHANIC,[place] [address] | | | | | [facility] | [address] [place], | | | | | and Healing, | [place] [address] | | | | | Building [address] | [phone] | | | | | [place], [place] | | | | | | [address] | | | | | | [phone] | | | +--------+--------+ + + + [...] Rd | | | | | | [place], [place] | | | | | | [address] | | | | | | [phone] | | | | | | | | +--------+---------+ + + + documented as of this encounter Visit Diagnoses Not on filedocumented in this encounter"
--- OUTSIDE RECORDS SUMMARY | ~2019-07-14 | XMS | Encounter Summary ---
Demographics + + + | Address | [address] | | | [place] [address] | + + + | Home Phone | | + + + | Preferred Language | Unknown | + + + | Marital Status | Single | + + + | Scientology Affiliation | NON | + + + | Race | or | + + + | Ethnic Group | Not or | + + + Author + + + | Author | [place] [facility] [facility] | + + + | Organization | [facility] | + + + | Address | Unknown | + + + | Phone | Unavailable | + + + Support + + +---------+ + | Name | Relationship | Address | Phone | + + +---------+ + | Alexandria Dixon | ECON | Unknown | | + + +---------+ + Care Team Providers + +------+ + | Care Value Engineer Name | Role | Phone | + +------+ + | No Pcp Per Patient | PCP | Unavailable | + +------+ + Encounter Details +--------+ + + + + | Date | Type | Department | Care Team | Description | +--------+ + + + + | 07/28/ | Orders Only | Endocrinology | Jaclyn Crawford, | 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 | | Pituitary Disease | [address] | Pituitary Gland and | | | | Clinic [address] | [address] | Craniopharyngeal | | | | Ave Mailcode: CH8A | [place], [place] | Duct (Pouch) (HCC) | | | | [facility] | [address] | (Primary Dx) | | | | and Healing, | [phone] | | | | | [facility] | | | | | | Floor [place], [place] | | | | | | [address] | | | | | | [phone] | | | +--------+ + + + [...] | | 2020 | Visit | | [address] | | | | | | [address] | | | | | | [place], [place] | | | | | | [address] | | | | | | [phone] | | | | | | | | +--------+---------+ + + + + +------+--------+ + + | Name | Type | Priori | Associated Diagnoses | Order Schedule | | | | ty | | | + +------+--------+ + + | [facility] | Lab | Routin | Benign Neoplasm of | Ordered: 07/28/2006 | | COLLECT, | | e | Pituitary Gland and | | | VENIPUNCTURE | | | Craniopharyngeal | | | | | | Duct (Pouch) (HCC) | | + +------+--------+ + + documented as of this encounter Procedures + +--------+ + + + | Procedure Name | Priori | Date/Time | Associated Diagnosis | Comments | | | ty | | | | + +--------+ + + + | INSULIN GROWTH | Routin | 07/28/2006 | Benign Neoplasm of | Results for this | | FACTOR-1, SERUM | e | 2:22 PM | Pituitary Gland and | procedure are in the | | | | PST | Craniopharyngeal | results section. | | | | | Duct (Pouch) (HCC) | | + +--------+ + + + documented in this encounter Results IGF-1 (07/28/2006 2:22 PM PST) + + + + + + | Component | Value | Ref Range | Performed | Pathologist | | | | | At | Signature | + + + + + + | IGF-1 | 143Comment: Test | 117 - 329 ng/mL | | | | | performed by [facility] | | | | | | [place] [facility] | | | | + + + + + + + + | Specimen | + + | | + + + + + + + | Performing | Address | City/State/Zipcode | Phone Number | | Organization | | | | + + + + + | [facility] | [address] | [place] [address] | | | LABORATORY | | | | + + + + + documented in this encounter Visit Diagnoses + + | Diagnosis | + + | 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
--- OUTSIDE RECORDS SUMMARY | ~2019-07-14 | XMS | Encounter Summary ---
Demographics + + + | Address | [address] | | | [place] [address] | + + + | Home Phone [...] Author + + + | Author | [place] [facility] | + + + | Organization | [facility] | + + + | Address | Unknown | + + + | Phone | Unavailable | + + + Support + + +---------+ + | Name | Relationship | Address | Phone | + + +---------+ + | Alexandria Dixon | ECON | Unknown | | + + +---------+ + Care Team Providers + +------+ + | Care Vehicle Fuel Systems Converter Name | Role | Phone | + [...] Refill Request | | 2010 | | [facility] [address] | Cathie, | | | | | [place] Mailcode: [id number] | DNP,STEAM SHOVEL OPERATOR,[place] [address] | | | | | [facility] | [address] [place], | | | | | and [facility], | [place] [address] | | | | | Building [address] | [phone] | | | | | [place], [place] | | | | | | [address] | | | | | | [phone] | | | +--------+--------+ + + + [...] | | 2019 | Visit | | [address] | | | | | | [address] | | | | | | [place], [place] | | | | | | [address] | | | | | | [phone] | | | | | | | | +--------+---------+ + + + documented as of this encounter Visit Diagnoses Not on filedocumented in this encounter"
--- OUTSIDE RECORDS SUMMARY | ~2019-07-14 | XMS | Encounter Summary ---
Demographics + + + | Address | [address] | | | [place] [address] | + + + | Home Phone | | + + + | Preferred Language | Unknown | + + + | Marital Status | Single | + + + | Judaism Affiliation | NON | + + + [...] Team Providers + +------+ + | Care Emergency Care Attendant Name | Role | Phone | + +------+ + PCP | Unavailable | + +------+ + Encounter Details +--------+ + + + + | Date | Type | Department | Care Team | Description | +--------+ + + + + | 08/22/ | Office | | Note, Outpatient | Progress Note | | 2006 | Visit-Trans | | Clinic | | | | cribed | | [...] as of this encounter Progress Notes Interface, Grill Chef In - 09/07/2005 2:04 AM [facility] [id number] TOREY TRIVEDI V Clinic Date: 08/22/2005 Clinic: [facility] Clinic Note Referring Physician: Shravan Montanez MD Reason for Referral: I was asked by Dr. 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 He had this tumor discovered incidentally in August 2005 when he was undergoing evaluation for headaches. His lesion compresses the optic chiasm but does not splay it. He has been having a series of symptoms which have been progressively getting worse, most notably are his headaches. He has recently had bouts of emesis apparently associated with the pain from the headaches. He has had some intermittent blurry vision. He has had nausea and vomiting, as stated above. He complains of some fatigue, anxiety, and sleep disturbances. He has had temperature fluctuations with hot flashes and night sweats, and states he has been losing weight recently. He has polyuria, polydipsia, and polyphagia both day and evening. Exact date of onset of symptoms is unknown. Specifically, he denies constipation and dry skin, and specifically denies dizziness with standing. His nausea appears to be related to the headaches. He states his sexual function is normal, and he has normal morning erections and normal libido. Review of Systems: Negative other than as stated above. 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 Medications: None, other than recently having been started on dexamethasone 2 mg q.6h. and Tylenol No. 3. These were started after the tumor was discovered. Allergies: None. Family History: Not well known since he is an adopted child, but his mother evidently had diabetes and father had heart disease, and mother had hypertension. Social History: He smokes 3 packs per week. He drinks alcohol once per week. He does not drink caffeinated beverages. He is single. He is currently unemployed. Physical Exam: Vital Signs: Blood pressure 144/84, pulse 84, respiration 19, weight 260, height 5 feet 7-1/2 inches. General: Pleasant man, looks stated age, somewhat centrally obese. HEENT: Normocephalic and atraumatic. Pupils equally responsive and reactive to light. Extraocular movements apparently intact. Visual godinez to confrontation were unremarkable. He has some facial rounding and mild plethora, but may be consistent with generalized obesity. He does not have any acne or alopecia. He has some facial rounding and merlene complexion. He has no frontal bossing, protruding jaw, or gaps between his teeth. Neck: No dorsocervical hump or supraclavicular fat filling. No lymphadenopathy. No jugular venous distention. Thyroid is normal to size and texture. Heart: Regular rate and rhythm. No rubs, murmurs or gallops. Lungs: Clear to auscultation. No rhonchi, rales or wheezes. Abdomen: Positive bowel sounds, nontender and nondistended. No organomegaly. He does have truncal obesity with no significant striae. Breast Exam: No tenderness, discharge, or enlargement. : Unremarkable. Skin: No hyperpigmentation, it was not dry, sweaty, or oily, no acanthosis nigricans, no thinning of the skin or bruising. Upper Extremities: No proximal muscle weakness, carpal tunnel syndrome, hand enlargement, tremor, or brittle fingernails. Lower Extremities: No edema. Neurologic: Alert and oriented x3, 5/5 motor and sensory throughout, and no delayed relaxation phase of the brachial reflex. Labs: Labs done prior to presenting to [facility] include a free T4 of 0.7, with the normal range being 0.9 to 1.8, and a TSH of 2.3, which was in the normal range of 0.35 to 5.5. MRI, as noted above, performed on August 20, 2005, revealed about a 1- to 1.5-cm pituitary lesion abutting and compressing, but not splaying, the optic chiasm. Assessment: Mr. 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 We will perform this. The patient will be scheduled for surgery based on the likelihood that this is not a prolactinoma. If his prolactin is elevated significantly, surgery will be cancelled and the patient will be treated with dopamine agonist treatment. 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 This, however, is not really consistent with his other symptoms, and will simply therefore reassess this axis and treat if appropriate. The patient will undergo a full pituitary panel during this clinic visit. Plan: 1. Endocrine testin.1. Pituitary function. A Cortrosyn stimulation test was performed, as well as thyroid measurements, growth hormone, and testosterone. These will be followed up in the next few days. 1.2. Pituitary hormone excess. The patient will be screened for hyperprolactinemia; he does not likely have hypercortisolemia. He does not have any indications of growth hormone excess, although this will be screened with an IGF-1. 1.3. MRI was performed recently and was an adequate study. 2. Medications: After assessment of pituitary hormone function, medications may be added. However, at this point I have suggested the patient stop his decadron at 2 mg q.6h. 3. Surgery: Unless the prolactin comes back elevated, this is a clear surgical indication for removal of the tumor. The patient will be scheduled in the next few weeks with Dr. Styles with a transsphenoidal approach. 4. There are no issues that I have asked the patient to follow up with his primary care provider with at this time. 5. Followup: We will follow during the patient's hospitalization and then arrange 6-week follow up with myself, Dr. Styles, MRI, and endocrine testing. Addendum: Laboratory results from [facility] testing reveal a free T4 of 0.8 with a TSH of 0.28. Prolactin and prolactin diluted were 16 in both cases. Cortrosyn stimulation test was undetectable at baseline and increased to 7.1, thirty minutes after 1 mcg ACTH stimulation, revealing adrenal insufficiency. ACTH and IGF-I are pending at the time of this dictation. Plan: Patient was started on hydrocortisone 20 mg daily and levothyroxine 175 mcg per day, with a weight of 260 pounds. Prolactin was normal, so surgery is planned for removal of this macrolesion on 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 Lb Guillaume M.D., Ph.D. [facility] / [id number] / [id number] / [id number] / [id number] / [id number] / [id number] / [id number] A: 08/26/2005 seth cc: Shravan Montanez MD [address] [place] [id number] Electronically signed by Lb Guillaume (Bill) 09-06-2005 06:58:41 PM documented i n this encounter Plan of Treatment +--------+---------+ + + + | Date | Type | Specialty | Care Team | Description | +--------+---------+ + + + | 08/15/ | Office | Cardiology | Zuleika Hernandez, | | | 2019 | Visit | | [address] | | | | | | [address] | | | | | | [place], [place] | | | | | | [address] | | | | | | [phone] | | | | | | | | +--------+---------+ + + + documented as of this encounter Visit Diagnoses Not on filedocumented in this encounter"
--- OUTSIDE RECORDS SUMMARY | ~2019-07-14 | XMS | Encounter Summary ---
Demographics + + + | Address | [address] | | | [place] [address] | + + + | Home Phone | | + + + | Preferred Language | Unknown | + + + | Marital Status | Single | + + + | Restoration Affiliation | NON | + + + | Race | or | + + + | Ethnic Group | Not or | + + + Author + + + | Author | [place] [facility] [facility] | + + + | Organization | [facility] | + + + | Address | Unknown | + + + | Phone | Unavailable | + + + Support + + +---------+ + | Name | Relationship | Address | Phone | + + +---------+ + | Alexandria Dixon | ECON | Unknown | | + + +---------+ + Care Team Providers + +------+ + | Care Rn Orthopaedic Name | Role | Phone | + +------+ + | No Pcp Per Patient | PCP | Unavailable | + +------+ + Encounter Details +--------+ + + + + | Date | Type | Department | Care Team | Description | +--------+ + + + + | 04/26/ | MyChart | Neurosurgery at | Donnie, | RE: You | | 2008 | Encounter | [facility] [id number] | Cathie | | | | | [place] Mailcode: CH8N | DNP,MEDICAL CARE ADMINISTRATOR,[place] [address] | | | | | [facility] | [address] [place], | | | | | and Healing, | [place] [address] | | | | | [facility] [address] | [phone] | | | | | [place], [place] | | | | | | [address] | | | | | | [phone] | | | +--------+ + + + [...] [address] | | | | | | [place], [place] | | | | | | [address] | | | | | | [phone] | | | | | | | | +--------+---------+ + + + documented as of this encounter Visit Diagnoses Not on filedocumented in this encounter"
--- OUTSIDE RECORDS SUMMARY | ~2019-07-14 | XMS | Encounter Summary ---
Demographics + + + | Address | [address] | | | [place] [address] | + + + | Home Phone [...] + + + | Author | [place] [facility] | + + + | Organization | [facility] | + + + | Address | Unknown | + + + | Phone | Unavailable | + + + Support + + +---------+ + | Name | Relationship | Address | Phone | + + +---------+ + | Alexandria Dixon | ECON | Unknown | | + + +---------+ + Care Team Providers + +------+ + | Care Hospital Personnel Director Name | Role | Phone | + +------+ + | Jinny Bergeron MD | PCP | | + +------+ + Encounter Details +--------+ + + + + | Date | Type | Department | Care Team | Description | +--------+ + + + + | 06/02/ | Documentati | Neurosurgery at | Donnie, | | | 2016 | on | [address] | Cathie | | | | | [place] Mailcode: CH8N | DNP,PIPE BOWLS PAINT TRIMMER,[place] [address] | | | | | [facility] | [address] [place], | | | | | and [place], | [place] [address] | | | | | [place] [address] | [phone] | | | | | [place], [place] | | | | | | [address] | | | | | | [phone] | | | +--------+ + + + [...] [address] | | | | | | [place], [place] | | | | | | [address] | | | | | | [phone] | | | | | | | | +--------+---------+ + + + documented as of this encounter Visit Diagnoses Not on filedocumented in this encounter"
--- OUTSIDE RECORDS SUMMARY | ~2019-07-14 | XMS | Encounter Summary ---
Demographics + + + | Address | [address] | | | [place] [address] | + + + | Home Phone | | + + + | Preferred Language | Unknown | + + + | Marital Status | Single | + + + | Uatsdin Affiliation | NON | + + + | Race | or | + + + | Ethnic Group | Not or | + + + Author + + + | Author | [place] [employer] [facility] | + + + | Organization | [facility] | + + + | Address | Unknown | + + + | Phone | Unavailable | + + + Support + + +---------+ + | Name | Relationship | Address | Phone | + + +---------+ + | Alexandria Dixon | ECON | Unknown | | + + +---------+ + Care Team Providers + +------+ + | Care Face Worker Name | Role | Phone | + +------+ + | No Pcp Per Patient | PCP | Unavailable | + +------+ + Encounter Details +--------+ + + + + | Date | Type | Department | Care Team | Description | +--------+ + + + + | 06/26/ | MyChart | Neurology at | Lynda Calvillo, | RE: New Meds | | 2008 | Encounter | [facility] & | MD | | | | | Healing [address] | | | | | | [address] [place] Mailcode: | | | | | | [facility] | | | | | | Health and Healing, | | | | | | Building | | | | | | Floor [place], [place] | | | | | | [address] | | | | | | [phone] | | | +--------+ + + + [...] [address] | | | | | | [place], [place] | | | | | | [address] | | | | | | [phone] | | | | | | | | +--------+---------+ + + + documented as of this encounter Visit Diagnoses Not on filedocumented in this encounter"
--- OUTSIDE RECORDS SUMMARY | ~2019-07-14 | XMS | Encounter Summary ---
Demographics + + + | Address | [address] | | | [place] [address] | + + + | Home Phone [...] Author + + + | Author | [place] [employer] [facility] | + + + | Organization | [facility] | + + + | Address | Unknown | + + + | Phone | Unavailable | + + + Support + + +---------+ + | Name | Relationship | Address | Phone | + + +---------+ + | Alexandria Dixon | ECON | Unknown | | + + +---------+ + Care Team Providers + +------+ + | Care Computer Information Science Professor Name | Role | Phone | + [...] Description | +--------+--------+ + + + | 02/20/ | Refill | Neurosurgery at | Donnie, | Refill Request | | 2007 | | [facility] [address] | Cathie, | | | | | [place] Mailcode: CH8N | DNP,MACHINE ENGRAVER,[place] [address] | | | | | [facility] | [address] [place], | | | | | and [facility], | [place] [address] | | | | | Building [address] | [phone] | | | | | [place], [place] | | | | | | [address] | | | | | | [phone] | | | +--------+--------+ + + + [...] [address] | | | | | | [place], [place] | | | | | | [address] | | | | | | [phone] | | | | | | | | +--------+---------+ + + + documented as of this encounter Visit Diagnoses Not on filedocumented in this encounter"
--- OUTSIDE RECORDS SUMMARY | ~2019-07-14 | XMS | Encounter Summary ---
Demographics + + + | Address | [address] | | | [place] [address] | + + + | Home Phone | | + + + | Preferred Language | Unknown | + + + | Marital Status | Single | + + + | Jain Affiliation | NON | + + + | Race | or | + + + | Ethnic Group | Not or | + + + Author + + + | Author | [place] [employer] [facility] | + + + | Organization | [facility] [...] Team Providers + +------+ + | Care Quill Fixer Name | Role | Phone | + +------+ + | Jinny Bergeron MD | PCP | | + +------+ + Encounter Details +--------+ + + + + | Date | Type | Department | Care Team | Description | +--------+ + + + + | 06/24/ | Abstract | Cardiology General | Danielle Aguilar MD | | | 2016 | | at [facility] [address] | [address] | | | | | [address] Mailcode: | [place], [place] | | | | | [address] | [address] | | | | | Health and Healing, | [phone] | | | | | [facility] | | | | | | floor [place], [place] | | | | | | [address] | | | | | | [phone] | | | +--------+ + + + [...] | 2019 | Visit | | [address] | | | | | | [address] | | | | | | [place], [place] | | | | | | [address] | | | | | | [phone] | | | | | | | | +--------+---------+ + + + documented as of this encounter Visit Diagnoses Not on filedocumented in this encounter"
--- OUTSIDE RECORDS SUMMARY | ~2019-07-14 | XMS | Encounter Summary ---
Demographics + + + | Address | [address] | | | [place] [address] | + + + | Home Phone [...] + + + | Author | [place] [employer] [facility] | + + + | Organization | [facility] | + + + | Address | Unknown | + + + | Phone | Unavailable | + + + Support + + +---------+ + | Name | Relationship | Address | Phone | + + +---------+ + | Alexandria Dixon | ECON | Unknown | | + + +---------+ + Care Team Providers + +------+ + | Care Tub Attendant Name | Role | Phone | [...] | | Neurological | | Non-[facility] | Donnie, | | | | Surgery | | Epic Dept | Car[place], | | | | | | | DNP,MANAGER PROPOSAL,[place] | | | | | | | [address] | | | | | | | Ave | | | | | | | [place], [place] | | | | | | | [address] | | | | | | | Phone: | | | | | | | [phone] | | | | | | | Fax: | | | | | | | [phone] | +--------+--------+ + + + + Encounter Details +--------+---------+ + + + | Date | Type | Department | Care Team | Description | +--------+---------+ + + + | 08/15/ | Office | Neurosurgery at | Donnie, | Pituitary adenoma | | 2011 | Visit | [facility] [address] | [place], | ([facility]ERLY [facility]); 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Ave Mailcode: CH8N | DNP,MANAGER PROPOSAL,[place] [address] | hormone deficiency | | | | [facility] | Nura [address]well [place], | ([facility]); 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, | [place]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 ([facility]); | | | | Building [address] | [phone] | Hypogonadism male; | | | | [place], [place] | | Hypothyroid; Adrenal | | | | [address] | | insufficiency (HCC) | | | | [phone] | | | +--------+---------+ + + + [...] + + + | Blood Pressure | 126/75 | 08/15/2011 2:10 PM | | | | | PST | | + + + + + | Pulse | 61 | 08/15/2011 2:10 PM | | | | | PST | | + + + + + | Temperature | - | - | | + + + + + | Respiratory Rate | 16 | 08/15/2011 2:10 PM | | | | | PST | | + + + + + | Oxygen Saturation | - | - | | + + + + + | Inhaled Oxygen | - | - | | | Concentration | | | | + + + + + | Weight | 133.9 kg (295 lb 4.8 | 08/15/2011 2:10 PM | | | | oz) | PST | | + + + + + | Height | 172.7 cm (5' 8") | 08/15/2011 2:10 PM | | | | | PST | | + + + + + | Body Mass Index | 44.9 | 08/15/2011 2:10 PM | | | | | PST | | + + + + + documented in this encounter Progress Notes Car[place] Fields, DNP,MANAGER PROPOSAL,[place] - 08/15/2011 2:44 PM PSTReason for visit. Amairani Tyler retur ns to [...] September 15, 2005, by Dr. Christiano Styles. He had a cardiac stent place 02/2011 after an NM. At this visit; Symptoms and Complaints: Facial redness: Worse (08/15/111410) Easy bruising: Worse (08/15/111410)Temperature fluct uations: Worse (08/15/111410) Temperature fluctuations - Hot, Cold, or Both?: Hot (08/15/111410) Weight change: Worse (08/15/111410) Weight - Increase or Decrease?: Increase (08/15/111410) Weight gain mostly around midsection: Same (08/15/111410) Poor wound healing: Worse (08/15/111410) Hot flashes: Worse (08/15/111410) Joint aches: Worse (01/06/12 1411) Gained 20lbs over 1-2 mths. Has started appetite suppressant and has lost about 10lb B/p monitored and stable No chest pain and no shortness of breath Some hot flashes and sweting Continues to be tx with narcotics for back pain Remains fatigued but has improved some forgot testosterone intermittently Sleeping OK Snoring less. Uses CPAP more now. Sexual function poor No visual changes Mood stable. No headaches No polyuria or polydipsia no nocturia Exact date of onset of symptoms is unknown Review of systems negative other than as stated above. Physical Exam: Blood pressure 126/75, pulse 61, resp. rate 16, height 1.727 m (5' 8"), weight 133.947 kg ( 295 lb 4.8 oz). General: A pleasant man [...] Assessment and discussion: Pt continues to be stable without chest pain or shortness of breath. He continues to have d ifficulty maintaining a regular schedule of use of hormone replacement medications but feels his compliance plan has improved. We discussed numerous techniques that may be more compati ble with his lifestyle to assist him to remember and comply with treatment plan. He has ga ined a significant amount of weight after increasing her glucocorticoids post NM. We discus sed tapering these and improving his weight with regular use of GH, Testosterone and exercis e. He will taper dose slowly from 40mg daily back to 20mg as tolerated. I answered pt and partner's questions to their satisfaction. Plan 1. Adrenals. Pt will taper dose to 20mg hydrocortisone daily. 2. Testosterone level pending. No change in dose is anticipated. 3. Growth hormone. IGF-1 pending. No change in dose. Patient continues to be irregular wi th dosing. 4. Thyroid. TSH, FT4 pending. No change in dose is anticipated. 5. DI.Appears controlled. BMP pending. No change in DDAVp anticiapted. 5. MRI 04/21 with SPANNER OPERATOR, RM labs I spent 30 minutes [id number] time with this patient of which over 50% was spent in medic ally indicated counseling and education pertaining to the issues discussed above. CARRINGTON FIELDS DNP, TOMER, BECCA [facility] [place] [address] [place] [address] Plan 1. Vitamin D deficiency. Start vit D 50,000 once weekly x 16 weeks followed in clinic in 3 mths. 2. Check Lipid profile. Rectal exam and PSA with PCP yearly 3. Growth hormone. No change. documented in this encounter Plan of Treatment +--------+---------+ + + + | Date | Type | Specialty | Care Team | Description | +--------+---------+ + + + | Office | Cardiology | Zuleika Hernandez, | | | 2019 | Visit | | [address] | | | | | | [address] | | | | | | CENTER [place], [place] | | | | | | [address] | | | | | | [phone] | | | | | | | | +--------+---------+ + + + documented as of this encounter Results VITAMIN D, 25-HYDROXY, SERUM (08/15/2011 3:10 PM PST) + + + + + + | Component | Value | Ref Range | Performed | Pathologist | | | | | At | Signature | + + + + + + | VITAMIN D | 10 (L)Comment: | 30 - 80 ng/mL | [facility] | | | 25 HYDROXY | REFERENCE INTERVAL: | | DEPARTMENT | | | | Vitamin D, 25-Hydroxy | | OF | | | | 0-17 years: | | PATHOLOGY | | | | Deficiency: less than 20 | | | | | | ng/mL Optimum | | | | | | level: greater than or | | | | | | equal to 20 ng/mL* | | | | | | *(Jose CL et al. | | | | | | Pediatrics 2008; 122: | | | | | | 1128-38.) 18 | | | | | | years and older: | | | | | | Deficiency: less than 20 | | | | | | ng/mL | | | |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: 20-29 | | | | | | ng/mL Optimum | | | | | | level: 30-80 ng/mL | | | | | | Possible toxicity: | | | | | | greater than 150 ng/mL | | | | | | This assay | | | | | | accurately quantifies | | | | | | the sum of vitamin D3, | | | | | | 25-hydroxy and | | | | | | vitamin D2, 25-hydroxy. | | | | | | Testing performed | | | | | | in Special Immunology & | | | | | | Coagulation | | | | | | Department as of October | | | | | | 2010. | | | | + + + + + + + + | Specimen | + + | Blood - Blood | + + + + + + + | Performing | Address | City/State/Zipcode | Phone Number | | Organization | | | | + + + + + | [facility] | [address] | [place] [address] | | | PATHOLOGY | [address] | | | + + + + + TSH (08/15/2011 3:10 PM PST) + +-------+ + + + | Component | Value | Ref Range | Performed | Pathologist | | | | | At | Signature | + +-------+ + + + | TSH | 0.40 | 0.34 - 5.60 | [facility] | | | | | uIU/ml | REGIONAL | | | | | | LABORATORY | | + +-------+ + + + + + | Specimen | + + | Blood - Blood | + + + + + | Narrative | Performed At | + + + | [facility]) | [facility] | | [facility] [place] [address] | REGIONAL | | [place] [address] | LABORATORY | + + + + + + + + | Performing | Address | City/State/Zipcode | Phone Number | | Organization | | | | + + + + + | [facility] | [address] | [place] [address] | | | LABORATORY | | | | + + + + + TESTOSTERONE, SERUM (08/15/2011 3:10 PM PST) + +-------+ + + + | Component | Value | Ref Range | Performed | Pathologist | | | | | At | Signature | + +-------+ + + + | TESTOSTERON | 249 | 175 - 781 ng/dl | [facility] | | | E, SERUM | | | REGIONAL | | | | | | LABORATORY | | + +-------+ + + + + + | Specimen | + + | Blood - Blood | + + + + + | Narrative | Performed At | + + + | [facility]) [place] | [place] | | [facility] [place] [address] | REGIONAL | | [place] [address] | LABORATORY | + + + + + + + + | Performing | Address | City/State/Zipcode | Phone Number | | Organization | | | | + + + + + | [facility] | [address] | [place] [address] | | | LABORATORY | | | | + + + + + PROLACTIN, SERUM (08/15/2011 3:10 PM PST) + +-------+ + + + | Component | Value | Ref Range | Performed | Pathologist | | | | | At | Signature | + +-------+ + + + | PROLACTIN | 4 | 3 - 13 ng/ml | [facility] | | | | | | REGIONAL | | | | | | LABORATORY | | + +-------+ + + + + + | Specimen | + + | Blood - Blood | + + + + + | Narrative | Performed At | + + + | [facility]) [place] | [facility] | | [facility] [place] [address] [facility] | [facility] | | [place] [address] | LABORATORY | + + + + + + + + | Performing | Address | City/State/Zipcode | Phone Number | | Organization | | | | + + + + + | [facility] | [address] | [place] [address] | | | LABORATORY | | | | + + + + + INSULIN GROWTH FACTOR-1, SERUM (08/15/2011 3:10 PM PST) + +-------+ + + + | Component | Value | Ref Range | Performed | Pathologist | | | | | At | Signature | + +-------+ + + + | IGF-1 | 173 | 115 - 307 ng/mL | [facility] | | | | | | REGIONAL | | | | | | LABORATORY | | + +-------+ + + + + + | Specimen | + + | Blood - Blood | + + + + + | Narrative | Performed At | + + + | [facility]) [facility] | [place] | | [place] [address] [facility] | REGIONAL | | [place] [address] | LABORATORY | + + + + + + + + | Performing | Address | City/State/Zipcode | Phone Number | | Organization | | | | + + + + + | [facility] | [address] | [place] [address] | | | LABORATORY | | | | + + + + + FREE T4, SERUM (08/15/2011 3:10 PM PST) + +-------+ + + + | Component | Value | Ref Range | Performed | Pathologist | | | | | At | Signature | + +-------+ + + + | FREE T4, | 0.8 | 0.6 - 1.2 ng/dL | [facility] [...] Way [facility]) [facility] | [place] | | [place] [address] | REGIONAL | | [place] [address] | LABORATORY | + + + + + + + + | Performing | Address | City/State/Zipcode | Phone Number | | Organization | | | | + + + + + | [facility] | [address] | [place] [address] | | | LABORATORY | | | | + + + + + BASIC METABOLIC SET (NA, K, CL, TCO2, BUN, CR, GLU, CA) (08/15/2011 3:10 PM PST) + + + + + + | Component | Value | Ref Range | Performed | Pathologist | | | | | At | Signature | + + + + + + | GLUCOSE, | 88 | 60 - 99 mg/dL | [facility] [...] + + + + | CREATININE | 0.73 | 0.70 - 1.30 | [facility] | [...] + + | CHLORIDE, | 104 | 97 - 108 mmol/L | [facility] | | | PLASMA | | | DEPARTMENT | | | (LAB) | | | OF | | | | | | PATHOLOGY | | + + + + + + | TOTAL CO2, | 28 | 22 - 29 mmol/L | [facility] | | | PLASMA | | | DEPARTMENT | | | (LAB) | | | OF | | | | | | PATHOLOGY | | + + + + + + | CALCIUM, | 9.3 | 8.6 - 10.2 | [facility] | | | PLASMA | | mg/dL | DEPARTMENT | | | (LAB) | | | OF | | | | | | PATHOLOGY | | + + + + + + | EGFR | > 60 | >60 mL/min | [facility] | | | - | | | DEPARTMENT | | | [place] | | | OF | | | [...] + + + | ANION GAP | 8 | 4 - 11 mmol/L | [facility] [...] + + + + | [facility] DEPARTMENT | [address] | [place] [address] | | | PATHOLOGY | [address] [...]
--- OUTSIDE RECORDS SUMMARY | ~2019-07-14 | XMS | Encounter Summary ---
Demographics + + + | Address | [address] [address] | | | [place] [address] | + + + | Home Phone | | + + + | Preferred Language | Unknown | + + + | Marital Status | Single | + + + | Jehovah'S Witness Affiliation | NON | + + + [...] Team Providers + +------+ + | Care Trolley Collector Name | Role | Phone | + +------+ + PCP | Unavailable | + +------+ + Encounter Details +--------+ + + + + | Date | Type | Department | Care Team | Description | +--------+ + + + + | 09/15/ | Procedure - | | Documentation, | OP REPORT-TEACHING | | 2005 | | | Teaching Physician | | | | Transcribed | | | | +--------+ + + [...] | | 2019 | Visit | | [address] | | | | | | [address] | | | | | | [place], [place] | | | | | | [address] | | | | | | [phone] | | | | | | | | +--------+---------+ + + + documented as of this encounter Procedures + +--------+ + + + | Procedure Name | Priori | Date/Time | Associated Diagnosis | Comments | | | ty | | | | + +--------+ + + + | TEACHING PHYSICIAN | | 09/15/2005 | | | + +--------+ + + + documented in this encounter Visit Diagnoses Not on filedocumented in this encounter"
--- OUTSIDE RECORDS SUMMARY | ~2019-07-14 | XMS | Encounter Summary ---
Demographics + + + | Address | [address] | | | [place] [address] | + + + | Home Phone [...] + + | Author | [place] [employer] [facility] | + + + | Organization | [facility] | + + + | Address | Unknown | + + + | Phone | Unavailable | + + + Support + + +---------+ + | Name | Relationship | Address | Phone | + + +---------+ + | Alexandria Dixon | ECON | Unknown | | + + +---------+ + Care Team Providers + +------+ + | Care Quarry Manager Name | Role | Phone | + +------+ + | Priscilla Ramírez PA-C | PCP | | + +------+ + Encounter Details +--------+ + + + + | Date | Type | Department | Care Team | Description | +--------+ + + + + | 10/22/ | MyChart | Cardiology General | | Cardiology Follow up | | 2019 | Encounter | at [facility] [address] | | appointment | | | | Nura [place] Mailcode: | | | | | | [address] | | | | | | Health and Healing, | | | | | | [facility] | | | | | | floor [place], [place] | | | | | | [address] | | | | | | [phone] | | | +--------+ + + + [...] Rd | | | | | | [place], [place] | | | | | | [address] | | | | | | [phone] | | | | | | | | +--------+---------+ + + + documented as of this encounter Visit Diagnoses Not on filedocumented in this encounter"
--- OUTSIDE RECORDS SUMMARY | ~2019-07-14 | XMS | Encounter Summary ---
Demographics + + + | Address | [address] | | | [place] [address] | + + + | Home Phone [...] + + + | Author | [place] [employer] [facility] | + + + | Organization | [facility] | + + + | Address | Unknown | + + + | Phone | Unavailable | + + + Support + + +---------+ + | Name | Relationship | Address | Phone | + + +---------+ + | Alexandria Dixon | ECON | Unknown | | + + +---------+ + Care Team Providers + +------+ + | Care Millwright Name | Role | Phone | + [...] Description | +--------+--------+ + + + | 02/22/ | Refill | Neurosurgery at | Donnie, | Refill Request | | 2013 | | [facility] [address] | [place], | | | | | [place] Mailcode: CH8N | DNP,BARK SPUDDER,[place] [address] | | | | | [facility] | Nura Black[address] [place], | | | | | and Healing, | [place] [address] | | | | | Building [address] | [phone] | | | | | [place], [place] | | | | | | [address] | | | | | | [phone] | | | +--------+--------+ + + + [...] Rd | | | | | | [place], [place] | | | | | | [address] | | | | | | [phone] | | | | | | | | +--------+---------+ + + + documented as of this encounter Visit Diagnoses Not on filedocumented in this encounter"
--- OUTSIDE RECORDS SUMMARY | ~2019-07-14 | XMS | Encounter Summary ---
Demographics + + + | Address | [address] | | | [place] [address] | + + + | Home Phone | | + + + | Preferred Language | Unknown | + + + | Marital Status | Single | + + + | Orthodox Affiliation | NON | + + + | Race | or | + + + | Ethnic Group | Not or | + + + Author + + + | Author | [place] [employer] [facility] | + + + | Organization | [facility] | + + + | Address | Unknown | + + + | Phone | Unavailable | + + + Support + + +---------+ + | Name | Relationship | Address | Phone | + + +---------+ + | Alexandria Dixon | ECON | Unknown | | + + +---------+ + Care Team Providers + +------+ + | Care Cnc Lathe Machinist Name | Role | Phone | + +------+ + | No Pcp Per Patient | PCP | Unavailable | + +------+ + Encounter Details +--------+ + + + + | Date | Type | Department | Care Team | Description | +--------+ + + + + | 08/18/ | Dry Wall Nailer | Neurosurgery at | Donnie, | | | 2011 | | [facility] [address] | [place] | | | | | [place] Mailcode: CH8N | DNP,PAPER STRIPPER,[place] [address] | | | | | [facility] | Nura Blackwell [place], | | | | | and Healing, | [place] [address] | | | | | [facility] | [phone] | | | | | Floor [place], [place] | | | | | | [address] | | | | | | [phone] | | | +--------+ + + + [...] [place] | | | | | | [address] | | | | | | [phone] | | | | | | | | +--------+---------+ + + + documented as of this encounter Visit Diagnoses Not on filedocumented in this encounter"
--- OUTSIDE RECORDS SUMMARY | ~2019-07-14 | XMS | Encounter Summary ---
Demographics + + + | Address | [address] | | | [place] [address] | + + + | Home Phone | | + + + | Preferred Language | Unknown | + + + | Marital Status | Single | + + + | Sabianism Affiliation | NON | + + + | Race | or | + + + | Ethnic Group | Not or | + + + Author + + + | Author | [place] [employer] [facility] | + + + | Organization | [facility] [...] Team Providers + +------+ + | Care Mainframe Software Developer Name | Role | Phone | [...] | | | | | adenoma | DNP,ARMY HELICOPTER [place] | [address] | | | | | (HCC) | [address] | [address] | | | | | Procedures | Ave | Mailcode: | | | | | MRI | [place], [place] | [address] | | | | | PITUITARY | [address] | [address] | | | | | WWO CONTRAST | Phone: | Research | | | | | [place] MRI | [phone] | [place] | | | | | BRAIN COMBO | Fax: | [place], [place] | | | | | | [phone] | [address] | | | | | | | Phone: | | | | | | | [phone] | | | | | | | Fax: | | | | | | | [phone] | +--------+--------+ + + + + Reason [...] | | | | | adenoma | DNP,ARMY HELICOPTER [place] | [address] | | | | | ([facility]) | [address] | [address] | | | | | Procedures | Ave | Mailcode: | | | | | MRI | [place], [place] | [address] | | | | | PITUITARY | [address] | [address] | | | | | WWO CONTRAST | Phone: | Research | | | | | [place] MRI | [phone] | Center | | | | | BRAIN COMBO | Fax: | [facility] [place] | | | | | | [phone] | [address] | | | | | | | Phone: | | | | | | | [phone] | | | | | | | Fax: | | | | | | | [phone] | +--------+--------+ + + + + Encounter Details +--------+ + + + + | Date | Type | Department | Care Team | Description | +--------+ + + + + | 07/13/ | Hospital | Radiology/Imaging | | | | 2014 | Encounter | Lab at [facility] [address] | [address] [place] Mailcode: | | | | | | [facility] | | | | | | Health and Healing, | | | | | | Building 1, 3rd | | | | | | Floor [facility] [place] | | | | | | [address] | | | | | | [phone] | | | +--------+ + + + [...] for | 1 mg | 1 | 10/26/ | | | sodium succinate, | symptoms [...] Rd | | | | | | [place], [place] | | | | | | [address] | | | | | | [phone] | | | | | | | | +--------+---------+ + + + documented as of this encounter Procedures + +--------+ + + + | Procedure Name | Priori | Date/Time | Associated Diagnosis | Comments | | | ty | | | | + +--------+ + + + | MRI PITUITARY WWO | Routin | 07/13/2015 | Pituitary adenoma | Results for this | | CONTRAST | e | 10:12 AM | (HCC) | procedure are in the | | | | PST | | results section. | + +--------+ + + + documented in this encounter Results MRI PITUITARY WWO CONTRAST (07/13/2015 10:12 AM PST) + + + + + + | Component | Value | Ref Range | Performed | Pathologist | | | | | At | Signature | + + + + + + | MR | EXAM: MRI pituitary | | | | | PITUITARY | without and with | | | | | WWO | contrast HISTORY: | | | | | CONTRAST | Pituitary tumor | | | | | | surveillance COMPARISON: | | | | | | 12/09/2013 TECHNIQUE: | | | | | | Multiplanar | | | | | | multi-sequence MRI | | | | | | tailored to the | | | | | | pituitary without | | | | | | andwith gadolinium based | | | | | | intravenous contrast. | | | | | | Dynamic sequence | | | | | | included. FINDINGS: | | | | | | Sella and parasellar: | | | | | | There is a stable | | | | | | postsurgical appearance | | | | | | of the sellawith | | | | | | opacification the | | | | | | sphenoid sinus is most | | | | | | likely related to | | | | | | surgicalpacking and/or | | | | | | mucosal thickening. | | | | | | There is a stable amount | | | | | | of enhancing | | | | | | tissuewithin the | | | | | | pituitary fossa but no | | | | | | new mass effect or | | | | | | nodularity. Stable | | | | | | mildlythickened | | | | | | pituitary infundibulum. | | | | | | Infundibulum is | | | | | | midline. Optic chiasm | | | | | | isnormal. Parasellar | | | | | | structures are normal. | | | | | | Brain: Visualized | | | | | | portions are | | | | | | unremarkable. Soft | | | | | | tissues and marrow: | | | | | | Visualized portions are | | | | | | unremarkable. | | | | | | IMPRESSION: Stable | | | | | | posttreatment appearance | | | | | | of the sella is noted | | | | | | since 12/09/2013 | | | | | | asdescribed. Attending | | | | | | Radiologists: PASTOR | | | | | | CARLA DURONuthor: | | | | | | PASTOR DURON MD I | | | | | | personally reviewed the | | | | | | images and, if | | | | | | necessary, edited the | | | | | | report. I agreewith the | | | | | | report as now presented. | | | | | | | | | | | | Final/Electronically | | | | | | signed / PASTOR | | | | | | DOMI 07/13/2015 | | | | | | 14:40 PM | | | | + + + + + + + + | Specimen | + + | | + + + +---------+ + + | Performing | Address | City/State/Zipcode | Phone Number | | Organization | | | | + +---------+ + + | [facility] DEPARTMENT OF | | | | | RADIOLOGY | | | | + +---------+ + + documented in this encounter Visit Diagnoses + + | Diagnosis | + + | Pituitary adenoma (HCC) Benign neoplasm of pituitary gland and craniopharyngeal duct | | (pouch) | + + documented in this encounter"
--- OUTSIDE RECORDS SUMMARY | ~2019-07-14 | XMS | Encounter Summary ---
Demographics + + + | Address | [address] | | | [place] [address] | + + + | Home Phone [...] Author + + + | Author | [place] [facility] | + + + | Organization | [facility] | + + + | Address | Unknown | + + + | Phone | Unavailable | + + + Support + + +---------+ + | Name | Relationship | Address | Phone | + + +---------+ + | Alexandria Dixon | ECON | Unknown | | + + +---------+ + Care Team Providers + +------+ + | Care Buffer Inflated Pad Name | Role | Phone | + [...] Description | +--------+--------+ + + + | 11/06/ | Refill | Neurosurgery at | Donnie, | Refill Request | | 2008 | | [facility] [address] | Cathie, | | | | | [place]al[place] Mailcode: [id number] | DNP,DIGITAL PRODUCT SPECIALIST,[place] [address] | | | | | [facility] | [address] [place], | | | | | and [facility], | [place] [address] | | | | | Building [address] | [phone] | | | | | [place], [place] | | | | | | [address] | | | | | | [phone] | | | +--------+--------+ + + + [...] [address] | | | | | | [place], [place] | | | | | | [address] | | | | | | [phone] | | | | | | | | +--------+---------+ + + + documented as of this encounter Visit Diagnoses Not on filedocumented in this encounter"
--- OUTSIDE RECORDS SUMMARY | ~2019-07-14 | XMS | Encounter Summary ---
Demographics + + + | Address | [address] | | | [place] [address] | + + + | Home Phone | | + + + | Preferred Language | Unknown | + + + | Marital Status | Single | + + + | Confucianism Affiliation | NON | + + + | Race | or | + + + | Ethnic Group | Not or | + + + Author + + + | Author | [place] [facility] | + + + | Organization | [facility] | + + + | Address | Unknown | + + + | Phone | Unavailable | + + + Support + + +---------+ + | Name | Relationship | Address | Phone | + + +---------+ + | Alexandria Dixon | ECON | Unknown | | + + +---------+ + Care Team Providers + +------+ + | Care Mechanic Insulator Name | Role | Phone | + +------+ + PCP | Unavailable | + +------+ + Reason for Visit AUTH/CERT +--------+--------+ + + + + | Status | Reason | Specialty | Diagnoses / | Referred By | Referred To | | | | | Procedures | Contact | Contact | +--------+--------+ + + + + | | | | | | | +--------+--------+ + + + + Encounter Details +--------+ + + + + | Date | Type | Department | Care Team | Description | +--------+ + + + + | 07/08/ | Anesthesia | 6A Intra Op [facility] | Alexandria Alford MD | | | 2016 | Event | [facility] | [address] | | | | | Admitting Desk | [address] [place], | | | | | Located on the | [place] [address] | | | | | floor [address] | [phone] | | | | | [address] | | | | | | [place], [place] | [address] | | | | | [address] | [address] | | | | | | [address] | | | | | | [place], [place] | | | | | | [address] | | | | | | [phone] | | | | | | | | +--------+ + + + + Anesthesia Record + + + + + | Procedure Name | Responsible | Anesthesia Start | Anesthesia Stop Time | | | Anesthesiologist | Time | | + + + + + | RESECTION OF MITRAL | Alexandria Alford MD | 07/08/16 0723 | 07/08/16 1010 | | VALVE MASS; POSSIBLE | | | | | MITRAL VALVE | | | | | REPLACEMENT; | | | | | CORONARY ARTERY | | | | | BYPASS GRAFTING- | | | | | CASE ABORTED PRIOR | | | | | TO INCISION (N/A | | | | | Chest) | | | | + + + + + +----+---+ + + | Da | T | Event | Comment | | te | i | | | | | m | | | | | e | | | +----+---+ + + | 11 | 0 | | | | /2 | 7 | | | | 9/ | 2 | | | | 20 | 8 | | | | 16 | | | | +----+---+ + + | | 0 | Pt. Check | Prior to anesthesia start, pt. Identified, examined, chart | | | 7 | | reviewed, PARQ held, anesthetic plan made or approved by | | | 2 | | attending anesthesiologist. NPO status confirmed as appropriate | | | 8 | | for procedure Preoperative evaluation: unchanged | +----+---+ + + | | 0 | Eq Check | Anesthesia machine checked Equipment verified | | | 7 | | | | | 3 | | | | | 0 | | | +----+---+ + + | | 0 | An Start | | | | 7 | | | | | 3 | | | | | 0 | | | +----+---+ + + | | 0 | An Start | | | | 7 | Data | | | | 3 | | | | | 7 | | | +----+---+ + + | | 0 | Vitals | Monitors applied Vital signs checked Patient ready for anesthesia | | | 7 | Checked | | | | 3 | | | | | 7 | | | +----+---+ + + | | 0 | ETT | | | | 7 | | | | | 4 | | | | | 6 | | | +----+---+ + + | | 0 | Art Line | | | | 7 | | | | | 5 | | | | | 7 | | | +----+---+ + + | | 0 | Central | | | | 8 | venous line | | | | 1 | | | | | 0 | | | +----+---+ + + | | 0 | MAURA Probe | | | | 8 | Inserted | | | | 1 | | | | | 8 | | | +----+---+ + + | | 0 | Ready | | | | 8 | | | | | 1 | | | | | 8 | | | +----+---+ + + | | 0 | Abx | | | | 8 | Administere | | | | 3 | d | | | | 2 | | | +----+---+ + + | | 0 | Quick Note | 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 Preparations paused with | | | 3 | | patient fully draped. Cardiology consulted to review MAURA. | | | 7 | | | +----+---+ + + | | 0 | Quick Note | Surgeon discussing case with family. Likely to cancel case. | | | 9 | | Awaiting final word | | | 1 | | | | | 7 | | | +----+---+ + + | | 0 | MAURA PROBE | | | | 9 | REMOVED | | | | 3 | | | | | 5 | | | +----+---+ + + | | 0 | An Extubate | Neuromuscular function Intact. Pharynx suctioned. Patient obeys | | | 9 | | commands. Adequate pulmonary mechanics. | | | 4 | | | | | 4 | | | +----+---+ + + | | 1 | Anesthesia | | | | 0 | End | | | | 1 | | | | | 0 | | | +----+---+ + + +------+ | Meds | +------+ + + + | Name | Total | + + + | midazolam | 4 mg | + + + | fentaNYL | 750 mcg | + + + | lidocaine 2% | 100 mg | + + + | propofol | 150 mg | + + + | rocuronium | 100 mg | + + + | aminocaproic acid | 7,260 mg | + + + | aminocaproic acid INF (250 mg/mL) | 5,263.5 mg | + + + | norepinephrine INF (8mg/250mL) | 123.42 mcg | + + + | hydrocortisone sod succ | 100 mg | + + + | cefUROXime | 1,500 mg | + + + | neostigmine | 4 mg | + + + | glycopyrrolate | 0.8 mg | + + + | ondansetron | 4 mg | + + + | LR | 1,000 mL | + + + | NS | 0 mL | + + + + + | Name | + + | O2 FR Avance (Total Liters) | + + | N2O FR Avance (l/min) | + + | Air FR Avance (l/min) | + + | Insp Iso | + + | Et Iso | + + | EtN2O % | + + | Insp N2O % | + + + + | No blood administrations on file. | + + +--------+ + + + | Type | Details | Placement | Removal | +--------+ + + + | Arteri | Standard; Right; Radial; 20g; | 07/08/16 0839 by | 07/08/16 1015 by | | al | 07/08/16; 1015; Per order | | Melida Negrete RN | | Line | | | | +--------+ + + + | Sheath | Right; Neck; Internal Jugular; | 07/08/16 0840 by | 07/08/16 1125 by | | /Intro | 07/08/16; 1125; Per order, Other | | Melida Negrete RN | | ducer | (Comment) (Removed by Gio | | | | Single | PAIGE Zuniga) | | | | Lumen | | | | +--------+ + + + | Centra | Hands Free; Right; Internal | 07/08/16 0840 by | 07/08/16 112 by | | l Line | Jugular; 07/08/161124; Per | | Meilda Negrete RN | | - | order (Removed by Gio Zuniga, | | | | Double | PAIGE ) | | | | Lumen | | | | +--------+ + + + | ETT | Endotracheal Tube; Oral; ETCO2 | 07/08/16 0840 by | 07/08/16 191 by | | | color change, Breath Sounds | | Discontinued After | | | bilaterally, Continous | | Discharge | | | Capnography; Cuffed; 07/08/16; | | | | | 191 | | | +--------+ + + + | Periph | 07/08/16; 0700; Right; Hand; 20 | 07/08/16 0700 by | 07/08/16 1155 by | | eral | g; None; Positive; 07/08/16; | Lynda Medley RN | Christiano Gordon, | | IV | 1155; Discharge | | RN | +--------+ + + + | Urethr | 07/08/16 (Wiped with Castile | 07/08/16 0753 by | 07/08/16 0946 by | | al | Wipes prior to insertion. ); | Melida Lepe RN | Melida Lepe RN | | Cristian | 0753; Temp-probe Ryan; 16 Fr.; | | | | er | 10 mL; 07/08/16; 0946; Discharge | | | +--------+ + + + documented in this encounter Social History + +-------+ +--------+------+ | Tobacco [...] | | 2019 | Visit | | [address] | | | | | | [address] | | | | | | [place], [place] | | | | | | [address] | | | | | | [phone] | | | | | | | | +--------+---------+ + + + documented as of this encounter Procedures + +--------+ + + + | Procedure Name | Priori | Date/Time | Associated Diagnosis | Comments | | | ty | | | | + +--------+ + + + | CHRISTOPHE GONGORA | Routin | 07/08/2016 | | Results for this | | | e | 5:15 PM | | procedure are in the | | | | PST | | results section. | + +--------+ + + + | CHRISTOPHE KING | Routin | 07/08/2016 | | Results for this | | | e | 5:15 PM | | procedure are in the | | | | PST | | results section. | + +--------+ + + + | ANE ETT | Routin | 07/08/2016 | | Results for this | | | e | 5:15 PM | | procedure are in the | | | | PST | | results section. | + +--------+ + + + | CHRISTOPHE MAURA | Routin | 07/08/2016 | | Results for this | | | e | 5:12 PM | | procedure are in the | | | | PST | | results section. | + +--------+ + + + documented in this encounter Results ANE ART LINE (07/08/2016 5:15 PM PST) + + + | Narrative | Performed At | + + + | Mitesh Casper DO, 07/08/2016 8:43 AM Procedure ART | | | LINE Procedure Information Inserted: After Induction 6 minutes to | | | perform. Type Catheter: Arrow kit Indications: Beat to beat blood | | | pressure monitoring and Frequent lab draws Location Performed: [place] | | | Informed Consent: Included in anesthesia consent Protective Barrier: | | | Mask, Cap, Hand scrub and Sterile Gloves Skin Prep: Chloraprep | | | Draped: Partially draped Anesthesia Method: General anesthesia | | | Insertion side: Right Insertion Site: Radial Access device: 20g | | | Line secured by:Tape, Dressing Applied and StatLock | | | Assessment Number of attempts: 3rd Complications: None Assessment: | | | Catheter connected to pressure line and flushed, catheter manually | | | flushed, Tolerated procedure well and Perfusion checked distal to | | | catheter Attending physically present Performed by Resident | | | Somewhat difficult access 2/2 thick skin and venous cannulation. | | + + + ANE CVL (07/08/2016 5:15 PM PST) + + + | Narrative | Performed At | + + + | Mitesh Bahena DO Pennie, 07/08/2016 8:44 AM Procedure | | | Information Central Venous Line Team pause: Performed per policy | | | Double-Stick: No Catheter type: Introducer sheath (cordis) Introducer | | | type: Hands-free CVL Location Performed: [place], Indications: | | | Assessment of intravascular volume, Administration of vasoactive | | | medications and Frequent lab draws Informed Consent: Included in | | | anesthesia consent, Protective Barrier: Cap, Mask, Gown, Full-body | | | drape, Hand scrub and Gloves Vein locater technique: Ultrasound | | | Guidance Ultrasound image: Printed and placed in patient's chart | | | Prep: ChloraPrep, Draped: Fully draped Anesthesia Method: General | | | anesthesia, Insertion side: Right Insertion Site: Internal Jugular, | | | Access device: 18G, angiocath Position confirmation: Ultrasound | | | and Confirmed by manometry Catheter size: 9 Fr Catheter length: | | | Standard Port flush: Saline All Ports Aspirated for Blood | | | Line secured with: Suture Sterile field while applying dressing: | | | site covered with sterile gauze prior to removing drape, followed by | | | application of sterile dressing Guidewire confirmed to be | | | removed.without difficulties and intact Catheter through | | | Introducer:Hands Free CVL Hands Free CVL Depth: 18 cm | | | Assessment Number of attempts: 1st Complications: None | | | Attending physically present Performed by Resident | | + + + CHRISTOPHE ETT (07/08/2016 5:15 PM PST) + + + | Narrative | Performed At | + + + | Mitesh Casper DO, 07/08/2016 8:41 AM Procedure | | | Reason for Intubation: For surgical procedure, Location Performed: [place] | | | , Patient was preoxygenated Mask Ventilation Grade 1 - Ventilated | | | by mask Intubation Atraumatic laryngoscopy: Atraumatic | | | Laryngoscopy, Laryngoscopic view: Grade II, Fiberoptics used: CMAC , | | | Number of Attempts: 1, Positive for EtCO2: Yes, Breath sounds: | | | Bilateral and equal ETT Ett Adult: Single-lumen cuffed ETT | | | Size: 8 ETT secured with: adhesive tape Depth at Lip: 22 Cm | | | Narrative Attending physically present Performed by Resident | | | | | + + + ANE MAURA (07/08/2016 5:12 PM PST) + + + | Narrative | Performed At | + + + | Alexandria Alford MD 07/08/2016 5:12 PM Procedure Procedure: | | | MAURA Indication: Wall motion and Valve function Consent: Obtained | | | Location Performed:[place] Procedure Information Performed under | | | general anesthesia Patient in proper position OG Tube option: OG | | | Tube Placed, suctioned and removed Probe placed by anesthesiologist | | | without event Location for details and interpretations: See | | | electronic medical record for further details and interpretations | | | Completed by Attending Name: Margret ALFORDformed by Resident, | | | Resident Name: BLAIR NOEL PROBE INSERTION: Easily placed on | | | first attempt under GETA; sterile jelly used for lubricant. Prior | | | to insertion the probe was inspected and found to be free of | | | visible debris; sterile processing tag present; probe functioning | | | appropriately. INDICATION: Valve Function, evaluate mass | | | RHYTHM: Sinus Rhythm PRE-INTERVENTION FINDINGS: ATRIA: The right | | | atrium is of normal size. There is no spontaneous echo contrast | | | (SEC) present. The left atrium is of normal size. There is no | | | SEC present. The left atrial appendage is visualized to be open and | | | there is no thrombus seen. SEPTA: There is no PFO/ASD/VSD seen | | | by color flow doppler (CFD). A bubble study was not performed. | | | VENTRICLES: The LV is of normal size, thickness and systolic function | | | is normal. The visually estimated EF is 65%. There is no SEC | | | present. There are no regional wall motion abnormalities (WMA) | | | visualized. There is no diastolic dysfunction. The RV is of | | | normal size and function. VALVES: AORTIC: The aortic valve is | | | trileaflet. There is no calcification. The aortic valve is of | | | normal structure and function; there is no , no AI. MITRAL: The | | | mitral valve is of normal structure and function; there is trace MR; | | | no MS. There is no mitral annular calcification. The | | | subvalvular apparatus appears normal. A previously visualized mass on | | | prior TTE is not visualized on the mitral valve or in the area of | | | the mitral annulus on imaging in multiple views. TRICUSPID: The | | | tricuspid valve is of normal structure and function; there is not | | | sufficient TR to measure RVSP. PULMONIC: The pulmonic valve is not | | | well visualized on this study. AORTA: The visualized portions of | | | the ascending, distal arch, and descending aorta are of normal size, | | | intact, and without dissection. OTHER: There is no pericardial | | | effusion visualized. There is no pleural effusion visualized. | | | Left and right pulmonary veins are seen in normal anatomic | | | position.Attending physically present | | + + + + ---------+ | Procedure Note | + ---------+ | Alexandria Alford MD - 07/08/2016 12:44 PM PST ProcedureProcedure: MAURA Indication: Wall | | motion and Valve function Consent: Obtained Location Performed:[place] Procedure | | Information Performed under general anesthesia Patient in proper position OG Tube | | option: OG Tube Placed, suctioned and removed Probe placed by anesthesiologist without | | event Location for details and interpretations: See electronic medical record for | | further details and interpretations Completed byAttending Name: Margret ALFORDformed | | by Resident, Resident Name: BLAIR NOEL DPROBE INSERTION: Easily placed on first | | attempt under GETA; sterile jelly used for lubricant. Prior to insertion the probe was | | inspected and found to be free of visible debris; sterile processing tag present; probe | | functioning appropriately.INDICATION: Valve Function, evaluate massRHYTHM: Sinus | | RhythmPRE-INTERVENTION FINDINGS:ATRIA: The right atrium is of normal size. There is no | | spontaneous echo contrast (SEC) present. The left atrium is of normal size. There is | | no SEC present. The left atrial appendage is visualized to be open and there is no | | thrombus seen.SEPTA: There is no PFO/ASD/VSD seen by color flow doppler (CFD). A bubble | | study was not performed.VENTRICLES: The LV is of normal size, thickness and systolic | | function is normal. The visually estimated EF is 65%. There is no SEC present. There | | are no regional wall motion abnormalities (WMA) visualized. There is no diastolic | | dysfunction. The RV is of normal size and function.VALVES:AORTIC: The aortic valve is | | trileaflet. There is no calcification. The aortic valve is of normal structure and | | function; there is no , no AI.MITRAL: The mitral valve is of normal structure and | | function; there is trace MR; no MS. There is no mitral annular calcification. The | | subvalvular apparatus appears normal. A previously visualized mass on prior TTE is not | | visualized on the mitral valve or in the area of the mitral annulus on imaging in | | multiple views.TRICUSPID: The tricuspid valve is of normal structure and function; there | | is not sufficient TR to measure RVSP.PULMONIC: The pulmonic valve is not well | | visualized on this study.AORTA: The visualized portions of the ascending, distal arch, | | and descending aorta are of normal size, intact, and without dissection.OTHER: There is | | no pericardial effusion visualized. There is no pleural effusion visualized. Left and | | right pulmonary veins are seen in normal anatomic position.Attending physically present | |PULMONIC: The pulmonic valve is not well visualized on this study. | | | |AORTA: The visualized portions of the ascending, distal arch, and descending aorta are of n ormal size, intact, and without dissection. | | | |OTHER: There is no pericardial effusion visualized. There is no pleural effusion visualize d. Left and right pulmonary veins are seen in normal anatomic position.Attending physically present | + ---------+ documented in this encounter Visit Diagnoses Not on filedocumented in this encounter Administered Medications + +--------+ + +------+------+ | Medication Order | MAR | Action | Dose | Rate | Site | | | Action | Date | | | | + +--------+ + +------+------+ | aminocaproic acid (AMICAR) | Given | 07/08/20 | 7,260 mg | | | | injection intravenous, | | 16 8:11 | | | | | INTRAPROCEDURE PRN, Starting Tue | | AM PST | | | | | 07/08/16 at 0811, Until Tue | | | | | | | 07/08/16 at 1018 | | | | | | + +--------+ + +------+------+ +---+---+ | | | +---+---+ + +---------+ + +--------+---+ | aminocaproic acid INF | New Bag | 07/08/20 | 30 | 14.52 | | | intravenous, INTRAPROCEDURE | | 16 8:21 | mg/kg/hr | mL/hr | | | CONTINUOUS PRN, Starting Tue | | AM PST | | | | | 07/08/16 at 0821, Until Tue | | | | | | | 07/08/16 at 1011 | | | | | | + +---------+ + +--------+---+ +---+---+ | | | +---+---+ + +-------+ + +---+---+ | cefuroxime (ZINACEF) injection | Given | 07/08/20 | 1,500 mg | | | | intravenous, INTRAPROCEDURE PRN, | | 16 8:36 | | | | | Starting 07/08/16 at 0836, | | AM PST | | | | | Until 07/08/16 at 1010 | | | | | | + +-------+ + +---+---+ +---+---+ | | | +---+---+ + +-------+ +---------+---+---+ | fentaNYL citrate (PF) | Given | 07/08/20 | 250 mcg | | | | (SUBLIMAZE) injection | | 16 8:27 | | | | | INTRAPROCEDURE PRN, Starting Tue | | AM PST | | | | | 07/08/16 at 0736, Until Tue | | | | | | | 07/08/16 at 1010 | | | | | | + +-------+ +---------+---+---+ +-------+ +---------+---+---+ | Given | 07/08/20 | 250 mcg | | | | | 16 7:43 | | | | | | AM PST | | | | +-------+ +---------+---+---+ | Given | 07/08/20 | 150 mcg | | | | | 16 7:39 | | | | | | AM PST | | | | +-------+ +---------+---+---+ +---+---+ | | | +---+---+ + +-------+ +--------+---+---+ | glycopyrrolate (ROBINUL) | Given | 07/08/20 | 0.8 mg | | | | injection INTRAPROCEDURE PRN, | | 16 9:32 | | | | | Starting 07/08/16 at 0932, | | AM PST | | | | | Until 07/08/16 at 1017 | | | | | | + +-------+ +--------+---+---+ +---+---+ | | | +---+---+ + +-------+ +--------+---+---+ | hydrocortisone sodium succinate | Given | 07/08/20 | 100 mg | | | | (PF) (EDISU-CORTTEVIN) injection | | 16 8:18 | | | | | INTRAPROCEDURE PRN, Starting Tue | | AM PST | | | | | 07/08/16 at 0818, Until Tue | | | | | | | 07/08/16 at 1010 | | | | | | + +-------+ +--------+---+---+ +---+---+ | | | +---+---+ + +---------+ +---+---+---+ | lactated ringers IV | New Bag | 07/08/20 | | | | | INTRAPROCEDURE CONTINUOUS PRN, | | 16 8:26 | | | | | Starting 07/08/16 at 0737, | | AM PST | | | | | Until 07/08/16 at 1010 | | | | | | + +---------+ +---+---+---+ +---------+ +---+---+---+ | New Bag | 07/08/20 | | | | | | 16 7:37 | | | | | | AM PST | | | | +---------+ +---+---+---+ +---+---+ | | | +---+---+ + +-------+ +--------+---+---+ | lidocaine PF (XYLOCAINE MPF) 20 | Given | 07/08/20 | 100 mg | | | | mg/mL (2 %) injection | | 16 7:43 | | | | | INTRAPROCEDURE PRN, Starting Tue | | AM PST | | | | | 07/08/16 at 0743, Until Tue | | | | | | | 07/08/16 at 1010 | | | | | | + +-------+ +--------+---+---+ +---+---+ | | | +---+---+ + +-------+ +------+---+---+ | midazolam (VERSED) injection | Given | 07/08/20 | 2 mg | | | | INTRAPROCEDURE PRN, Starting Tue | | 16 7:44 | | | | | 07/08/16 at 0731, Until Tue | | AM PST | | | | | 07/08/16 at 1010 | | | | | | + +-------+ +------+---+---+ +-------+ +------+---+---+ | Given | 07/08/20 | 2 mg | | | | | 16 7:31 | | | | | | AM PST | | | | +-------+ +------+---+---+ +---+---+ | | | +---+---+ + +---------+ +---+---+---+ | NaCl 0.9 % solution | New Bag | 07/08/20 | | | | | INTRAPROCEDURE CONTINUOUS PRN, | | 16 7:58 | | | | | Starting 07/08/16 at 0758, | | AM PST | | | | | Until e 07/08/16 at 1010 | | | | | | + +---------+ +---+---+---+ +---+---+ | | | +---+---+ + +-------+ +------+---+---+ | neostigmine (PROSTIGMIN) | Given | 07/08/20 | 4 mg | | | | injection intravenous, | | 16 9:35 | | | | | INTRAPROCEDURE PRN, Starting Thu | | AM PST | | | | | 07/08/16 at 0935, Until Tue | | | | | | | 07/08/16 at 1017 | | | | | | + +-------+ +------+---+---+ +---+---+ | | | +---+---+ + +---------+ + +-------+---+ | norepinephrine (LEVOPHED) | New Bag | 07/08/20 | 0.02 | 4.54 | | | 8mg/250 mL (0.032 mg/mL) IV | | 16 8:26 | mcg/kg/m | mL/hr | | | infusion (RTU) INTRAPROCEDURE | | AM PST | in | | | | CONTINUOUS PRN, Starting Tue | | | | | | | 07/08/16 at 0826, Until Tue | | | | | | | 07/08/16 at 1010 | | | | | | + +---------+ + +-------+---+ +---+---+ | | | +---+---+ + +-------+ +------+---+---+ | ondansetron (ZOFRAN) injection | Given | 07/08/20 | 4 mg | | | | INTRAPROCEDURE PRN, Starting Tue | | 16 9:44 | | | | | 07/08/16 at 0944, Until Tue | | AM PST | | | | | 07/08/16 at 1017 | | | | | | + +-------+ +------+---+---+ +---+---+ | | | +---+---+ + +-------+ +--------+---+---+ | propofol INTRAPROCEDURE PRN, | Given | 07/08/20 | 150 mg | | | | Starting 07/08/16 at 0743, | | 16 7:43 | | | | | Until 07/08/16 at 1010 | | AM PST | | | | + +-------+ +--------+---+---+ +---+---+ | | | +---+---+ + +-------+ +--------+---+---+ | rocuronium (ZEMURON) injection | Given | 07/08/20 | 100 mg | | | | INTRAPROCEDURE PRN, Starting Tue | | 16 7:44 | | | | | 07/08/16 at 0744, Until Tue | | AM PST | | | | | 07/08/16 at 1010, Neuromuscular | | | | | | | block | | | | | | + +-------+ +--------+---+---+ +---+---+ | | | +---+---+ documented in this encounter"
--- OUTSIDE RECORDS SUMMARY | ~2019-07-14 | XMS | Encounter Summary ---
Demographics + + + | Address | [address] | | | [place] [address] | + + + | Home Phone [...] Author + + + | Author | [place] [employer] [facility] | + + + | Organization | [facility] | + + + | Address | Unknown | + + + | Phone | Unavailable | + + + Support + + +---------+ + | Name | Relationship | Address | Phone | + + +---------+ + | Alexandria Dixon | ECON | Unknown | | + + +---------+ + Care Team Providers + +------+ + | Care Planning Associate Name | Role | Phone | + [...] | Neurological | Diagnoses | Donnie, | Donnie, | | | | Surgery | Pituitary | Cathie, | Cathie, | | | | | adenoma | DNP,JEEPER OPERATOR,[place] | DNP,JEEPER OPERATOR,[place] | | | | | ([facility]) | [address] | [address] | | | | | Testicular | Ave | Ave | | | | | hypofunction | [place], [place] | [place] | | | | | Pituitary | [address] | [address] | | | | | dwarfism | Phone: | Phone: | | | | | ([facility]) | [phone] | [phone] | | | | | Glucocortico | Fax: | Fax: | | | | | id | [phone] | [phone] | | | | | deficiency | | | | | | | (HCC) | | | | | | | 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 | | | | | | | ([facility]) | | | | | | | Procedures | | | | | | | DC EST | | | | | | | PATIENT | | | | | | | LEVEL V | | | +--------+--------+ + + + + Encounter Details +--------+---------+ + + + | Date | Type | Department | Care Team | Description | +--------+---------+ + + + | 11/15/ | Office | Neurosurgery at | Donnie, | Pituitary adenoma | | 2016 | Visit | [facility] [address] | Cathie, | ([facility]) (Primary Dx); | | | | Ave Mailcode: CH8N | DNP,JEEPER OPERATOR,[place] [address] | 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[facility] | [address] [place], | deficiency (HCC); | | | | and Healing, | [place] [address] | Diabetes insipidus | | | | [address] | [phone] | ([facility]); Hypogonadism | | | | [place], [place] | | male; Acquired | | | | [address] | | hypothyroidism; | | | | [phone] | | Adrenal | | | | | | insufficiency (HCC) | +--------+---------+ + + + Social History [...] + + + | Blood Pressure | 119/70 | 11/16/2015 1:01 PM | | | | | PDT | | + + + + + | Pulse | 93 | 11/16/2015 1:01 PM | | | | | PDT | | + + + + + | Temperature | 36.8 C (98.2 F) | 11/16/2015 1:01 PM | | | | | [...] + + + + | Weight | 127.9 kg (282 lb) | 11/16/2015 1:01 PM | | | | | PDT | | + + + + + | Height | - | - | | + + + + + | Body Mass Index | 42.88 | 12/05/2011 1:01 PM | | | | | PDT | | + + + + + documented in this encounter Progress Notes Cathie Fields, SANIYA,JEEPER OPERATOR,[place] - 11/16/2015 1:32 PM PDTFormatting of this note might be [...] cardiac stent place 02/2011 after a n NE. At this visit; Symptoms and Complaints: Is doing PT for arm Has been losing weight with diet and exercise Is doing testosterone last 10/15/15 is pending next mthly injection No visual deficit Nausea and vomiting at times Migraine better, min headaches, has been better with testosterone injection Has had weight loss, feels associated with nausea and vomiting. NO chest pain is to f.up with cards 21 November . Energy level better Sexual function ok Fatigued Better back pain no change. B/p better and more stable Taking Thyroid regularly Uses CPAP regularly Sleeps OK at noc No polyuria or polydipsia no nocturia Still feels hot a lot of the time However he chews and swallows tobacco still trying to quit Hot flashes and some night sweats. Feels hot most of the time. No CTS sympotms LT4 125mcg x6/week Taking 25mg HC daily Exact date of onset of symptoms is unknown Review of systems negative other than as stated above. Physical Exam: Blood pressure 119/70, pulse 93, temperature 36.8 C (98.2 F), temperature source Oral, weight 127.914 kg (282 lb). General: A pleasant man who looks [...] pending Component Latest Ref Rng 11/14/2014 11/14/2014 11/14/2014 11/14/2014 2:34 PM 2:34 PM 2:34 PM 2:34 PM GLUCOSE, PLASMA (LAB) 60-99 mg/dL BUN, PLASMA (LAB) 6-20 mg/dL CREATININE PLASMA (LAB) 0.70-1.30 mg/dL EGFR - TRINIDADIAN >60 mL/min EGFR NON -TRINIDADIAN >60 mL/min SODIUM, PLASMA (LAB) 136-145 mmol/L [...] PLASMA (LAB) 0.70-1.30 mg/dL 0.81 EGFR - TRINIDADIAN >60 mL/min >60 EGFR NON -TRINIDADIAN >60 mL/min >60 SODIUM, PLASMA (LAB) 136-145 [...] mIU/L VITAMIN D 25 HYDROXY 30-80 ng/mL Component Latest Ref Rng 06/22/2015 06/22/2015 06/22/2015 10:26 AM 10:26 AM 10:26 AM GLUCOSE, PLASMA (LAB) 60-99 mg/dL BUN, PLASMA (LAB) 6-20 mg/dL CREATININE PLASMA (LAB) 0.70-1.30 mg/dL EGFR - TRINIDADIAN >60 mL/min EGFR NON -TRINIDADIAN >60 mL/min SODIUM, PLASMA (LAB) 136-145 mmol/L [...] PLASMA (LAB) 0.70-1.30 mg/dL 0.95 EGFR - TRINIDADIAN >60 mL/min >60 EGFR NON -TRINIDADIAN >60 mL/min >60 SODIUM, PLASMA (LAB) 136-145 mmol/L 140 POTASSIUM, PLASMA (LAB) 3.4-5.0 mmol/L 3.8 CHLORIDE, PLASMA (LAB) 97-108 mmol/L 105 TOTAL CO2, PLASMA (LAB) 21-32 mmol/L 26 CALCIUM, PLASMA (LAB) 8.6-10.2 mg/dL 9.0 ANION GAP 9 POTASSIUM CMNT No Hemo FREE T4, SERUM 0.6-1.2 ng/dL 1.2 PROLACTIN 3 - 13 ng/mL 4 TSH 0.39-4.17 mIU/L HEMOGLOBIN A1C <5.7 % PSA,TOTAL,SCREENING <=2.50 ng/mL Assessment and discussion: Amairani Tyler is a 35yo male with 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 He underwent cardiac stenting after MRI 02/13. Pt reports doing much better after starting tx with depot testosterone. His headaches have resolved and he has more energy. He is changing his diet and has lost approx 15lb. He has also decreased work hours He is doing well on HC 25mg daily. Pt and spouse are anxious for at this time. Pt did have sperm count locally results pending. The couple are planning on IVF. We discuss ed lower sperm motility while tx with testosterone, however, this may not be an issue for IV F. Recommend follow up with urology and/or fertility clinic as needed. I answered pt, SO's questions to their satisfaction. Plan 1. Adrenals. Pt will continue 25mg hydrocortisone daily. He is instructed to take ER ster oids up to 40mg extra for illness, injury, fever, vomiting from any cause. 2. Testosterone level pending. Doing well on depot testosterone. He will follow this with P CP. 3. Growth hormone. IGF-1 pending. Pt is GH deficient .He has been using GH regularly by r eport. No changes anticipated. 4. Thyroid. TSH, FT4 pending. Will increase dose if FT4 is not in mid to upper range of nor mal. 5. DI.Appears controlled. BMP pending. No change in DDAVp anticiapted. 6. Vitamin D insufficiency. Level pending. Previous dose D3 3,000IU daily 7. HA1c. Will recheck. Pt reports he has improved diet. 8. Follow up in 6 mths 05/25. With labs CATHIE FIELDS DNP, JEEPER OPERATOR, [place] Telephone Order Clerk Room Service [facility] [address] [facility] [place] [facility] [place] [address] Component Latest Ref Rng 11/16/2015 11/16/2015 11/16/2015 11/16/2015 2:00 PM 2:00 PM 2:00 PM 2:00 PM GLUCOSE, PLASMA (LAB) 60-99 mg/dL BUN, PLASMA (LAB) 6-20 mg/dL CREATININE PLASMA (LAB) 0.70-1.30 mg/dL EGFR - TRINIDADIAN >60 mL/min EGFR NON -TRINIDADIAN >60 mL/min SODIUM, PLASMA (LAB) 136-145 mmol/L POTASSIUM, PLASMA (LAB) 3.4-5.0 mmol/L CHLORIDE, PLASMA (LAB) 97-108 mmol/L TOTAL CO2, PLASMA (LAB) 21-32 mmol/L CALCIUM, PLASMA (LAB) 8.6-10.2 mg/dL ANION GAP POTASSIUM CMNT FREE T4, SERUM 0.6-1.2 ng/dL TESTOSTERONE, ADULT MALE 300 - 1080 ng/dL 19 (L) PROLACTIN 3 - 13 ng/mL 4 TSH 0.39-4.17 mIU/L 1.24 VITAMIN D 25 HYDROXY 30-80 ng/mL 25.2 (L) Component Latest Ref Rng 11/16/2015 11/16/2015 2:00 PM 2:00 PM GLUCOSE, PLASMA (LAB) 60-99 mg/dL 226 (H) BUN, PLASMA (LAB) 6-20 mg/dL 16 CREATININE PLASMA (LAB) 0.70-1.30 mg/dL 0.78 EGFR - TRINIDADIAN >60 mL/min >60 EGFR NON -TRINIDADIAN >60 mL/min >60 SODIUM, PLASMA (LAB) 136-145 mmol/L 135 (L) POTASSIUM, PLASMA (LAB) 3.4-5.0 mmol/L 3.9 CHLORIDE, PLASMA (LAB) 97-108 mmol/L 102 TOTAL CO2, PLASMA (LAB) 21-32 mmol/L 23 CALCIUM, PLASMA (LAB) 8.6-10.2 mg/dL 8.7 ANION GAP 10 POTASSIUM CMNT No Hemo FREE T4, SERUM 0.6-1.2 ng/dL 1.1 TESTOSTERONE, ADULT MALE 300 - 1080 ng/dL PROLACTIN 3 - 13 ng/mL TSH 0.39-4.17 mIU/L VITAMIN D 25 HYDROXY 30-80 ng/mL Plan addendum 1. Thyroid level now in normal range. No change in dose 2. Testosterone level, trough low. Recommend follow up with PCP to adjust dose 3. Monitor sugar level locally. Dietary modification strongly recommended. 4. Sl hyponatremic. May need to decrease am dose of DDAVP to 0.1mg or pm dose by 0.05mg. 5. Follow up in 6 mths. 05/25 CATHIE FIELDS DNP, JEEPER OPERATOR, [place] Telephone Order Clerk Room Service [facility] [address] [place] [address] 3. Vitamin D level remains in insufficient range. Recommend increasing daily dose by 1,000 international units 8: 16 AM PDTdocumented in this encounter Plan of Treatment +--------+---------+ + + + | Date | Type | Specialty | Care Team | Description | +--------+---------+ + + + | 08/15/ | Office | Cardiology | Zuleika Hernandez, | | | 2019 | Visit | | [address] | | | | | | [address] | | | | | | [place], [place] | | | | | | [address] | | | | | | [phone] | | | | | | | | +--------+---------+ + + + documented as of this encounter Results VITAMIN D, 25-HYDROXY, SERUM (11/16/2015 2:00 PM PDT) + + + + + + | Component | Value | Ref Range | Performed | Pathologist | | | | | At | Signature | + + + + + + | VITAMIN D | 25.2 (L) | 30 - 80 ng/mL | [...] At | + + + | Reference Interval: 0-18years: Deficiency: <20 ng/mL | [facility] | | Optimum level: >or=20 ng/mL | LABORATORY | | >18years: Deficiency: <20 | SERVICES, CORE | | ng/mL Insufficiency: 20-29 ng/mL | | | Optimum Level: 30-80 ng/mL High: | | | 81-150 ng/ml Toxic: >150 ng/mL | | | New method and performing lab effective 08/30/15. | | + + + + + + + + | Performing | Address | City/State/Zipcode | Phone Number | | Organization | | | | + + + + + | [facility] | [address] | [place] [address] | | | SERVICES, [place] | [address] | | | + + + + + HEMOGLOBIN A1C, BLOOD (11/16/2015 2:00 PM PDT) + + + + + + | Component | Value | Ref Range | Performed | Pathologist | | | | | At | Signature | + + + + + + | HEMOGLOBIN | 7.7 (H)Comment: Hbg A1c | <5.7 % | [...] + | [facility] | [address] | [place] [address] | | | SERVICES, SPECIAL | [address] | | | | IMM + COAG | | | | + + + + + TSH (11/16/2015 2:00 PM PDT) + +-------+ + + + | Component | Value | Ref Range | Performed | Pathologist | | | | | At | Signature | + +-------+ + + + | TSH | 1.24 | 0.39 - 4.17 | [facility] | [...] | + + + + + | [facility] | [address] | [place] [address] | | | SERVICES, CORE | [address] | | | + + + + + PROLACTIN, SERUM (11/16/2015 2:00 PM PDT) + +-------+ + + + [...] + | [facility] - | [address] | [place] [address] | | | [facility] | | | | + + + + + TESTOSTERONE, SERUM (11/16/2015 2:00 PM PDT) + + + + + + | Component | Value | Ref Range | Performed | Pathologist | | | | | At | Signature | + + + + + + | TESTOSTERON | 19 (L)Comment: Total | 300 - 1080 | [...] | | | this test in the [facility] | | | | | | Laboratory Test | | | | | | Directory | | | | | | ([employer]).Performed | | | | | | by [employer],[address] | | | | | | [address], [facility],[place] | | | | | | [id number] | | | | | | [phone].[employer]. | | | | | | [facility], Dariel Tobin, | | | | | | Isaiah BALTAZAR. Director | | | | + + + + + + + + | Specimen | + + | Blood - Blood | + + + + + + + | Performing | Address | City/State/Zipcode | Phone Number | | Organization | | | | + + + + + | [facility] | [address] | [place], [place] | | | [facility] | | [address] | | + + + + + INSULIN GROWTH FACTOR-1, SERUM (11/16/2015 2:00 PM PDT) + +--------+ + + + | Component | Value | Ref Range | Performed | Pathologist | | | | | At | Signature | + +--------+ + + + | IGF-1 | 83 (L) | 116 - 353 ng/mL | [...] + | [facility] - | [address] | [place] [address] | | | [facility] | | | | + + + + + FREE T4 (11/16/2015 2:00 PM PDT) + +-------+ + + + [...] [facility] | [address] | [place] [address] | | | SERVICES, CORE | [address] | | | + + + + + BASIC METABOLIC SET (NA, K, CL, TCO2, BUN, CR, GLU, CA) (11/16/2015 2:00 PM PDT) + +---------+ + + + | Component | Value | Ref Range | Performed | Pathologist | | | | | At | Signature | + +---------+ + + + | GLUCOSE, | 226 (H) | 60 - 99 mg/dL | [...] +---------+ + + + | CREATININE | 0.78 | 0.70 - 1.30 | [facility] | | | PLASMA | | mg/dL | LABORATORY | | | (LAB) | | | SERVICES, | | | | | | CORE | | + +---------+ + + + | EGFR | >60 | >60 mL/min | [facility] | | | - | | | LABORATORY | | | TRINIDADIAN | | | SERVICES, | | | | | | CORE | | + +---------+ + + + | EGFR NON | >60 | >60 mL/min | [facility] | | | -[facility]AS[facility] | | | LABORATORY | | | RICAN | | | SERVICES, | | | | | | CORE | | + +---------+ + + + | SODIUM, | 135 (L) | 136 - 145 | [facility] | [...] +---------+ + + + | CHLORIDE, | 102 | 97 - 108 mmol/L | [facility] [...] + + + | ANION GAP | 10 | mmol/L | [facility] | | | [...] + + + | [facility] | [address] | [place] [address] | | | SERVICES, CORE | [address] | | | + + + + + documented in this encounter Visit Diagnoses + + | Diagnosis | + + | Pituitary adenoma (HCC) - Primary Benign neoplasm of pituitary gland and | | craniopharyngeal duct (pouch) | + + | Growth hormone deficiency (HCC) Pituitary dwarfism | + + | Diabetes insipidus ([facility]) Diabetes insipidus | + + | 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
--- OUTSIDE RECORDS SUMMARY | ~2019-07-14 | XMS | Encounter Summary ---
Demographics + + + | Address | [address] | | | [place] [address] | + + + | Home Phone | | + + + | Preferred Language | Unknown | + + + | Marital Status | Single | + + + | Shinto Affiliation | NON | + + + | Race | or | + + + | Ethnic Group | Not or | + + + Author + + + | Author | [facility] | + + + | Organization | [facility] | + + + | Address | Unknown | + + + | Phone | Unavailable | + + + Support + + +---------+ + | Name | Relationship | Address | Phone | + + +---------+ + | Alexandria Dixon | ECON | Unknown | | + + +---------+ + Care Team Providers + +------+ + | Care Mica Spreader Name | Role | Phone | + +------+ + | Jhonny Rodriguez DO | PCP | | + +------+ + Encounter Details +--------+------+ + + + | Date | Type | Department | Care Team | Description | +--------+------+ + + + | 06/01/ | Lab | Laboratory at [facility] | | Pituitary adenoma | | 2011 | | [address] | | ([facility] Adrenal | | | | [place], [place] | | insufficiency ([facility]) | | | | [address] | | | | | | [phone] | | | +--------+------+ + + + Social History [...] | | 2019 | Visit | | [address] | | | | | | [address] | | | | | | [place], [place] | | | | | | [address] | | | | | | [phone] | | | | | | | | +--------+---------+ + + + documented as of this encounter Procedures + +--------+ + + + | Procedure Name | Priori | Date/Time | Associated Diagnosis | Comments | | | ty | | | | + +--------+ + + + | INSULIN GROWTH | Routin | 06/07/2012 | Pituitary adenoma | Results for this | | FACTOR-1, SERUM | e | 8:43 PM | (HCC) Adrenal | procedure are in the | | | | PDT | insufficiency (HCC) | results section. | + +--------+ + + + | TSH | Routin | 06/02/2012 | Pituitary adenoma | Results for this | | | e | 8:08 PM | (HCC) Adrenal | procedure are in the | | | | PDT | insufficiency (HCC) | results section. | + +--------+ + + + | FREE T4 | Routin | 06/02/2012 | Pituitary adenoma | Results for this | | | e | 7:54 PM | (HCC) Adrenal | procedure are in the | | | | PDT | insufficiency ([facility]) | results section. | + +--------+ + + + | PROLACTIN | Routin | 06/02/2012 | Pituitary adenoma | Results for this | | | e | 5:45 PM | (HCC) Adrenal | procedure are in the | | | | PDT | insufficiency (HCC) | results section. | + +--------+ + + + | TESTOSTERONE, SERUM | Routin | 06/02/2012 | Pituitary adenoma | Results for this | | | e | 5:32 PM | (HCC) Adrenal | procedure are in the | | | | PDT | insufficiency (HCC) | results section. | + +--------+ + + + | BASIC METABOLIC SET | Routin | 06/01/2012 | Pituitary adenoma | Results for this | | (NA, K, CL, TCO2, | e | 3:21 PM | (HCC) Adrenal | procedure are in the | | BUN, CR, GLU, CA) | | PDT | insufficiency (HCC) | results section. | + +--------+ + + + documented in this encounter Results INSULIN GROWTH FACTOR-1, SERUM (06/07/2012 8:43 PM PDT) + +--------+ + + + | Component | Value | Ref Range | Performed | Pathologist | | | | | At | Signature | + +--------+ + + + | IGF-1 | 62 (L) | 115 - 307 ng/mL | [facility] | | | [...] + | [facility] | [address] | [place] [address] | | | [place] | | | | + + + + + TSH (06/02/2012 8:08 PM PDT) + +-------+ + + + | Component | Value | Ref Range | Performed | Pathologist | | | | | At | Signature | + +-------+ + + + | TSH | 0.39 | 0.34 - 5.60 | [facility] | | | | | mcIU/mL | [facility] - | | [...] + | [facility] | [address] | [place] [address] | | | [place] | | | | + + + + + FREE T4, SERUM (06/02/2012 7:54 PM PDT) + +-------+ + + + [...] + | [facility] - | [address] | [place] [address] | | [facility] | | | | + + + + + PROLACTIN, SERUM (06/02/2012 5:45 PM PDT) + +-------+ + + + [...] + | [facility] | [address] | [place] [address] | | | [place] | | | | + + + + + TESTOSTERONE, SERUM (06/02/2012 5:32 PM PDT) + +--------+ + + + | Component | Value | Ref Range | Performed | Pathologist | | | | | At | Signature | + +--------+ + + + | TESTOSTERON | 55 (L) | 175 - 781 ng/dL | [...] | + + + + + | [facility] | [address] | [place] [address] | | | [place] | | | | + + + + + BASIC METABOLIC SET (NA, K, CL, TCO2, BUN, CR, GLU, CA) (06/01/2012 3:21 PM PDT) + +---------+ + + + | Component | Value | Ref Range | Performed | Pathologist | | | | | At | Signature | + +---------+ + + + | GLUCOSE, | 101 (H) | 60 - 99 mg/dL | [facility] | | | PLASMA | | | LABORATORY | | | (LAB) | | | SERVICES, | | | | | | [facility] | [facility] | | | | | | [facility] | | + +---------+ + + + | BUN, PLASMA | 14 | 6 - 20 mg/dL | [facility] | | | (LAB) | | | LABORATORY | | | | | | SERVICES, | | | | | | [facility] + | | | | | | [facility]AL[facility] | | + +---------+ + + + | CREATININE | 0.80 | 0.70 - 1.30 | [facility] | | | PLASMA | | mg/dL | LABORATORY | | | (LAB) | | | SERVICES, | | | | | | [facility] + | | | | | | [facility]AL[facility] | | + +---------+ + + + | EGFR | >60 | mL/min | [facility] | | | - | | | LABORATORY | | | [place] | | | SERVICES, | | | | | | [facility] + | | | | | | [facility]ALING | | + +---------+ + + + | EGFR NON | >60 | mL/min | [facility] | | | -[facility] | | | LABORATORY | | | [facility]ICAN | | | SERVICES, | | | | | | [facility] + | | | | | | [facility]ALING | | + +---------+ + + + | SODIUM, | 149 (H) | 134 - 143 | [facility] | | | PLASMA | | mmol/L | LABORATORY | | | (LAB) | | | SERVICES, | | | | | | [facility] + | | | | | | [facility]ALING | | + +---------+ + + + | POTASSIUM, | 4.4 | 3.4 - 5.0 | [facility] | | | PLASMA | | mmol/L | LABORATORY | | | (LAB) | | | SERVICES, | | | | | | [facility] + | | | | | | [facility]ALING | | + +---------+ + + + | CHLORIDE, | 102 | 97 - 108 mmol/L | [facility] | | | PLASMA | | | LABORATORY | | | (LAB) | | | SERVICES, | | | | | | [facility] | [facility] + | | | | | | [facility] | | + +---------+ + + + | TOTAL CO2, | 30 (H) | 22 - 29 mmol/L | [facility] | | | PLASMA | | | LABORATORY | | | (LAB) | | | SERVICES, | | | | | | [facility] + | | | | | | [facility]AL[facility] | | + +---------+ + + + | CALCIUM, | 8.9 | 8.6 - 10.2 | [facility] | | | PLASMA | | mg/dL | LABORATORY | | | (LAB) | | | SERVICES, | | | | | | [facility] + | | | | | | [facility]ALING | | + +---------+ + + + | ANION GAP | 17 (H) | 4 - 11 mmol/L | [facility] | | | | | | LABORATORY | | | | | | SERVICES, | | | | | | [facility] + | | | | | | [facility]ALING | | + +---------+ + + + + + | Specimen | + + | Blood - Blood | + + + + + + + | Performing | Address | City/State/Zipcode | Phone Number | | Organization | | | | + + + + + | [facility] | [address] | [place] [address] | | | [facility] | | | | | HEALTH + HEALING | | | | + + + + + documented in this encounter Visit Diagnoses + + | Diagnosis | + + | Pituitary adenoma (HCC) Benign neoplasm of pituitary gland and craniopharyngeal duct | | (pouch) | + + | Adrenal insufficiency (HCC) Glucocorticoid deficiency | + + documented in this encounter"
--- OUTSIDE RECORDS SUMMARY | ~2019-07-14 | XMS | Encounter Summary ---
Demographics + + + | Address | [address] | | | [place] [address] | + + + | Home Phone | | + + + | Preferred Language | Unknown | + + + | Marital Status | Single | + + + | Taoism Affiliation | Unknown | + + + | Race | Unknown | + + + | Ethnic Group | Unknown | + + + Author + + + | Author | [facility] | | | and [place] | + + + | Organization | [facility] | | | and [place] [...] Team Providers + +------+ + | Care Air Valve Mechanic Name | Role | Phone | + +------+ + PCP | Unavailable | + +------+ + Encounter Details +--------+ + + + + | Date | Type | Department | Care Team | Description | +--------+ + + + + | 01/01/ | [facility] | [facility] | | | | 2011 | Encounter | MED CTR XRAY [address] | | | | | | [address] | | | | | | [place] [address] | | | | | | [phone] | | | +--------+ + + + [...] 2020 | Visit | | [address] | | | | | | [place] | | | | | | [address] | | | | | | | | +--------+---------+ + + + documented as of this encounter Procedures + +--------+ + + + | Procedure Name | Priori | Date/Time | Associated Diagnosis | Comments | | | ty | | | | + +--------+ + + + | MRI THORACIC SPINE | | 01/02/2012 | | Results for this | | WO CONTRAST | | 1:04 PM | | procedure are in the | | | | PDT | | results section. | + +--------+ + + + documented in this encounter Results MRI Thoracic Spine wo Contrast (01/02/2012 1:04 PM PDT) + + | Specimen | + + | | + + + + + | Narrative | Performed At | + + + | [facility] Diagnostic Imaging Department | [facility] | | [address] | [facility] | | UNENHANCED MRI THORACIC SPINE | DIA IM | | 01/02/2012 CLINICAL HISTORY: CHRONIC THORACIC PAIN, FOLLOWUP | | | ARACHNOID CYST. COMPARISON: Thoracic MRI 11/15/2010, and | | | 11/01/2010. TECHNIQUE: The following 3T MR sequences of the | | | thoracic spine were obtained: 1. Sagittal T1 and STIR. 2. | | | Axial, sagittal and coronal T2. FINDINGS: Generalized | | | rightward thoracic curvature and straightening of the cervical | | | lordosis persist. There are similar Schmorl's nodes within multiple | | | mid thoracic vertebral endplates, without associated marrow edema on | | | the STIR sequence. Cervical and thoracic vertebral height and | | | alignment are otherwise maintained, without evident fracture or | | | spondylolisthesis. Imaged intracranial contents are grossly | | | unremarkable. No significant cervical central canal stenosis is | | | evident on provided sagittal images through the region. Focal | | | flattening of the dorsal surface of the spinal cord is again | | | demonstrated at the T6 level on both axial and sagittal images, | | | despite prominent CSF pulsation artifact. No conclusive signal | | | alteration is evident within the cord itself, and the appearance is | | | similar to that described previously. The cord otherwise | | | demonstrates normal intrinsic signal intensity and caliber. The conus | | | medullaris terminates at T12-L1. Tiny disc protrusions are | | | again demonstrated at the T5-6 and T6-7 levels, appearing stable and | | | without significant central canal stenosis. No significant | | | central canal or neural foraminal stenosis is evident within the | | | thoracic spine. Multilevel anterior vertebral spondylosis is again | | | noted. Imaged paraspinal, intrathoracic and upper abdominal | | | structures are unremarkable. IMPRESSION: 1. STABLE FOCAL | | | FLATTENING OF THE DORSAL ASPECT OF THE SPINAL CORD AT THE T6 LEVEL | | | COMPARED WITH MRI OF 11/01/2010, AGAIN RAISING SUSPICION FOR AN | | | ARACHNOID CYST. NO CONVINCING CORD SIGNAL ALTERATION OR NEW | | | ABNORMALITY IS EVIDENT. 2. SIMILAR RIGHTWARD THORACIC | | | CURVATURE WITH MULTILEVEL SCHMORL'S NODE FORMATION, VERTEBRAL | | | SPONDYLOSIS, AND STRAIGHTENING OF THE CERVICAL LORDOSIS. | | | Dictated Date/Time: 01/02/2012 15:38 Transcribed Date/Time: | | | 01/02/2012 16:01 Supervisor Core Shop: <Electronically Signed | | | by Phu Oro MD> 01/02/12 2228 | | + + + + + | Procedure Note | + + | Santhosh, Alonzo Conversion - 09/16/2013 5:[address] [facility] | | Diagnostic Imaging Department | | [address] | | | | | | | | UNENHANCED MRI THORACIC SPINE 01/02/2012 | | | | CLINICAL HISTORY: CHRONIC THORACIC PAIN, FOLLOWUP ARACHNOID CYST. | | | | COMPARISON: Thoracic MRI 11/15/2010, and 11/01/2010. | | | | TECHNIQUE: The following 3T MR sequences of the thoracic spine were obtained: | | 1. Sagittal T1 and STIR. | | 2. Axial, sagittal and coronal T2. | | | | FINDINGS: Generalized rightward thoracic curvature and straightening of the | | cervical lordosis persist. There are similar Schmorl's nodes within multiple | | mid thoracic vertebral endplates, without associated marrow edema on the STIR | | sequence. Cervical and thoracic vertebral height and alignment are otherwise | | maintained, without evident fracture or spondylolisthesis. Imaged intracranial | | contents are grossly unremarkable. No significant cervical central canal | | stenosis is evident on provided sagittal images through the region. | | | | Focal flattening of the dorsal surface of the spinal cord is again demonstrated | | at the T6 level on both axial and sagittal images, despite prominent CSF | | pulsation artifact. No conclusive signal alteration is evident within the cord | | itself, and the appearance is similar to that described previously. The cord | | otherwise demonstrates normal intrinsic signal intensity and caliber. The conus | | medullaris terminates at T12-L1. | | | | Tiny disc protrusions are again demonstrated at the T5-6 and T6-7 levels, | | appearing stable and without significant central canal stenosis. No | | significant central canal or neural foraminal stenosis is evident within the | | thoracic spine. Multilevel anterior vertebral spondylosis is again noted. | | Imaged paraspinal, intrathoracic and upper abdominal structures are | | unremarkable. | | | | IMPRESSION: | | 1. STABLE FOCAL FLATTENING OF THE DORSAL ASPECT OF THE SPINAL CORD AT THE T6 | | LEVEL COMPARED WITH MRI OF 11/01/2010, AGAIN RAISING SUSPICION FOR AN ARACHNOID | | CYST. NO CONVINCING CORD SIGNAL ALTERATION OR NEW ABNORMALITY IS EVIDENT. | | | | 2. SIMILAR RIGHTWARD THORACIC CURVATURE WITH MULTILEVEL SCHMORL'S NODE | | FORMATION, VERTEBRAL SPONDYLOSIS, AND STRAIGHTENING OF THE CERVICAL LORDOSIS. | | | | Dictated Date/Time: 01/02/2012 15:38 | | Transcribed Date/Time: 01/02/2012 16:01 | | Supervisor Core Shop: | | <Electronically Signed by Phu Oro MD> 01/02/12 2228 | + + + +---------+ + + | Performing | Address | City/State/Zipcode | Phone Number | | Organization | | | | + +---------+ + + | [place] | | | | | [facility] | | | | + +---------+ + + documented in this encounter Visit Diagnoses Not on filedocumented in this encounter"
--- OUTSIDE RECORDS SUMMARY | ~2019-07-14 | XMS | Encounter Summary ---
Demographics + + + | Address | [address] | | | [place] [address] | + + + | Home Phone | | + + + | Preferred Language | Unknown | + + + | Marital Status | Single | + + + | Episcopalian Affiliation | NON | + + + | Race | or | + + + | Ethnic Group | Not or | + + + Author + + + | Author | [employer] [facility] | + + + | Organization | [facility] | + + + | Address | Unknown | + + + | Phone | Unavailable | + + + Support + + +---------+ + | Name | Relationship | Address | Phone | + + +---------+ + | Alexandria Dixon | ECON | Unknown | | + + +---------+ + Care Team Providers + +------+ + | Care Long Term Care Pharmacist Name | Role | Phone | + [...] Description | +--------+--------+ + + + | 03/05/ | Refill | Neurosurgery at | [place]nie, | Refill Request | | 2008 | | [facility] [address] | Cathie, | | | | | [place] Mailcode: CH8N | DNP,ACTION FINISHER,[place] [address] | | | | | [facility] | [address] [place], | | | | | and [facility], | [place] [address] | | | | | Building [address] | [phone] | | | | | [place], [place] | | | | | | [address] | | | | | | [phone] | | | +--------+--------+ + + + [...] [address] | | | | | | [place], [place] | | | | | | [address] | | | | | | [phone] | | | | | | | | +--------+---------+ + + + documented as of this encounter Visit Diagnoses Not on filedocumented in this encounter"
--- OUTSIDE RECORDS SUMMARY | ~2019-07-14 | XMS | Encounter Summary ---
Demographics + + + | Address | [address] | | | [place] [address] | + + + | Home Phone | | + + + | Preferred Language | Unknown | + + + | Marital Status | Single | + + + | Yarsani Affiliation | NON | + + + | Race | or | + + + | Ethnic Group | Not or | + + + Author + + + | Author | [place] [employer] [facility] | + + + | Organization | [facility] | [...] Team Providers + +------+ + | Care Motor Equipment Commanding Officer Name | Role | Phone | + +------+ + | Jinny Bergeron MD | PCP | | + +------+ + Encounter Details +--------+ + + + + | Date | Type | Department | Care Team | Description | +--------+ + + + + | 07/07/ | Hospital | Diagnostic | | | | 2015 | Encounter | Radiology at [facility] | | | | | | [address] | | | | | | [place] Mailcode: | | | | | | [address] | | | | | | [place], | | | | | | [place] [address] | | | | | | [phone] | | | +--------+ + + + [...] 200 mg under | | 0 | 10/05/20 | | | 200 mg/mL | the [...] + + +---------+ + + | hydrocortisone 10 | Take 5 tablets by | 5 | 0 | 07/08/20 | | | mg oral tablet | mouth once for 1 | tablet | | 16 | 6 | | | dose. Take in place | | | | | | | of your evening dose | | | | | | | on 07/09/16. | | | | | + + + +---------+ + + documented as of this encounter Plan of Treatment +--------+---------+ + + + | Date | Type | Specialty | Care Team | Description | +--------+---------+ + + + | 08/15/ | Office | Cardiology | Zuleika Hernandez, | | | 2019 | Visit | | [address] | | | | | | [address] | | | | | | [place], [place] | | | | | | [address] | | | | | | [phone] | | | | | | | | +--------+---------+ + + + documented as of this encounter Procedures + +--------+ + + + | Procedure Name | Priori | Date/Time | Associated Diagnosis | Comments | | | ty | | | | + +--------+ + + + | X-RAY CHEST 2 VIEW | Routin | 07/07/2016 | Preop examination | Results for this | | | e | 3:59 PM | | procedure are in the | | | | PST | | results section. | + +--------+ + + + documented in this encounter Results X-RAY CHEST 2 VIEW (07/07/2016 3:59 PM PST) + + + + + + | Component | Value | Ref Range | Performed | Pathologist | | | | | At | Signature | + + + + + + | CHEST, 2 | EXAM: CHEST 2 VIEWS | | | | | VIEWS [place] | 07/07/16 15:59:00 | | | | | STEREO | HISTORY: Preop mitral | | | | | | valve surgery | | | | | | COMPARISON: None | | | | | | FINDINGS: Cardiac | | | | | | silhouette is normal. | | | | | | The lungs are clear. | | | | | | There is nopleural | | | | | | effusion or | | | | | | pneumothorax. Osseous | | | | | | structures do not | | | | | | demonstrate anydisplaced | | | | | | fractures. Mild | | | | | | anterior compression | | | | | | fracture involving a | | | | | | lowerthoracic spine is | | | | | | noted, old given its | | | | | | presence back in | | | | | | 12/22/11. IMPRESSION: | | | | | | Clear lungs Attending | | | | | | Radiologists: TREY Escobar | | | | | | CARLA PAYTONuthor: TREY | | | | | | Luz PAYTON MD I | | | | | [...] | | | | | signed / TREY Escobar | | | | | | FITO 07/07/2016 | | | | | | 16:09 PM | | | | + + + + + + + + | Specimen | + + | | + + + +---------+ + + | Performing | Address | City/State/Zipcode | Phone Number | | Organization | | | | + +---------+ + + | [place] [facility] | | | | | RADIOLOGY | | | | + +---------+ + + documented in this encounter Visit Diagnoses + + | Diagnosis | + + | Preop examination Preoperative examination, unspecified | + + documented in this encounter"
--- OUTSIDE RECORDS SUMMARY | ~2019-07-14 | XMS | Encounter Summary ---
Demographics + + + | Address | [address] | | | [place] [address] | + + + | Home Phone [...] + + + | Author | [place] [employer] [facility] | + + + | Organization | [facility] | + + + | Address | Unknown | + + + | Phone | Unavailable | + + + Support + + +---------+ + | Name | Relationship | Address | Phone | + + +---------+ + | Alexandria Dixon | ECON | Unknown | | + + +---------+ + Care Team Providers + +------+ + | Care Order Department Supervisor Name | Role | Phone | + +------+ + | Priscilla Ramírez PA-C | PCP | | + +------+ + Reason for Visit + + + | Reason | Comments | + + + | Radiology Order | | + + + Encounter Details +--------+ + + + + | Date | Type | Department | Care Team | Description | +--------+ + + + + | 05/14/ | MyChart | Cardiology in | Zuleika Hernandez, | RE: CT Images | | 2018 | Encounter | [facility] | [place] [address] | | | | | [facility] | [facility] | | | | | [place] [address] | [place], [place] | | | | | [address] | [address] | | | | | [place], [place] | [phone] | | | | | [address] | | | | | | [phone] | | | +--------+ + + + [...] [address] | | | | | | [place], [place] | | | | | | [address] | | | | | | [phone] | | | | | | | | +--------+---------+ + + + documented as of this encounter Visit Diagnoses Not on filedocumented in this encounter"
--- OUTSIDE RECORDS SUMMARY | ~2019-07-14 | XMS | Encounter Summary ---
Demographics + + + | Address | [address] | | | [place] [address] | + + + | Home Phone | | + + + | Preferred Language | Unknown | + + + | Marital Status | Single | + + + | Roman Catholic Affiliation | NON | + + + | Race | or | + + + | Ethnic Group | Not or | + + + Author + + + | Author | [place] [employer] [facility] | + + + | Organization | [facility] | + + + | Address | Unknown | + + + | Phone | Unavailable | + + + Support + + +---------+ + | Name | Relationship | Address | Phone | + + +---------+ + | Alexandria Dixon | ECON | Unknown | | + + +---------+ + Care Team Providers + +------+ + | Care Ship/Rec/Doc Control Name | Role | Phone | + +------+ + | Jinny Bergeron MD | PCP | | + +------+ + Encounter Details +--------+ + + + + | Date | Type | Department | Care Team | Description | +--------+ + + + + | 11/20/ | Head Of Drama | Neurosurgery at | [place], | | | 2016 | | [facility] [address] | Cathie | | | | | [place] Mailcode: CH8N | DNP,SPRING FITTER,[place] [address] | | | | | [facility] | [address] [place], | | | | | and [place], | [place] [address] | | | | | [facility] | [phone] | | | | | Floor [place], [place] | | | | | | [address] | | | | | | [phone] | | | +--------+ + + + [...] [address] | | | | | | [place], [place] | | | | | | [address] | | | | | | [phone] | | | | | | | | +--------+---------+ + + + documented as of this encounter Visit Diagnoses Not on filedocumented in this encounter"
--- OUTSIDE RECORDS SUMMARY | ~2019-07-14 | XMS | Encounter Summary ---
Demographics + + + | Address | [address] | | | [place] [address] | + + + | Home Phone [...] + + + | Author | [place] [facility] | + + + | Organization | [facility] | + + + | Address | Unknown | + + + | Phone | Unavailable | + + + Support + + +---------+ + | Name | Relationship | Address | Phone | + + +---------+ + | Alexandria Dixon | ECON | Unknown | | + + +---------+ + Care Team Providers + +------+ + | Care Kiss Machine Operator Name | Role | Phone | + +------+ + | Jhonny Rodriguez DO | PCP | | + +------+ + Encounter Details +--------+ + + + + | Date | Type | Department | Care Team | Description | +--------+ + + + + | 07/22/ | MyChart | Neurosurgery at | Donnie, | RE: Testostrome | | 2011 | Encounter | [facility] [address] | Cathie | | | | | [place] Mailcode: CH8N | DNP,HEAD START DIRECTOR,[place] [address] | | | | | [facility] | [address] [place], | | | | | and [place], | [place] [address] | | | | | [facility] [address] | [phone] | | | | | [place], [place] | | | | | | [address] | | | | | | [phone] | | | +--------+ + + + [...] | | 2019 | Visit | | [address] | | | | | | [address] | | | | | | [place], [place] | | | | | | [address] | | | | | | [phone] | | | | | | | | +--------+---------+ + + + documented as of this encounter Visit Diagnoses Not on filedocumented in this encounter"
--- OUTSIDE RECORDS SUMMARY | ~2019-07-14 | XMS | Encounter Summary ---
Demographics + + + | Address | [address] | | | [place] [address] | + + + | Home Phone | | + + + | Preferred Language | Unknown | + + + | Marital Status | Single | + + + | Restorationism Affiliation | NON | + + + | Race | or | + + + | Ethnic Group | Not or | + + + Author + + + | Author | [place] [employer] [facility] | + + + | Organization | [facility] | + + + | Address | Unknown | + + + | Phone | Unavailable | + + + Support + + +---------+ + | Name | Relationship | Address | Phone | + + +---------+ + | Alexandria Dixon | ECON | Unknown | | + + +---------+ + Care Team Providers + +------+ + | Care Ammonium Nitrate Neutralizer Name | Role | Phone | + +------+ + | Jinny Bergeron MD | PCP | | + +------+ + Encounter Details +--------+ + + + + | Date | Type | Department | Care Team | Description | +--------+ + + + + | 11/20/ | MyChart | Neurosurgery at | Donnie, | RE: Thyroid | | 2015 | Encounter | [facility] [address] | Cathie | | | | | [place] Mailcode: CH8N | DNP,WEALTH MANAGEMENT CONSULTANT,[place] [address] | | | | | [facility] | [address] [place], | | | | | and [place], | [place] [address] | | | | | [place] [address] | [phone] | | | | | [place], [place] | | | | | | [address] | | | | | | [phone] | | | +--------+ + + + [...] [address] | | | | | | [place], [place] | | | | | | [address] | | | | | | [phone] | | | | | | | | +--------+---------+ + + + documented as of this encounter Visit Diagnoses Not on filedocumented in this encounter"
--- OUTSIDE RECORDS SUMMARY | ~2019-07-14 | XMS | Encounter Summary ---
Demographics + + + | Address | [address] | | | [place] [address] | + + + | Home Phone | | + + + | Preferred Language | Unknown | + + + | Marital Status | Single | + + + | Yazdanism Affiliation | NON | + + + | Race | or | + + + | Ethnic Group | Not or | + + + Author + + + | Author | [place] [employer] [facility] | + + + | Organization | [facility] | + + + | Address | Unknown | + + + | Phone | Unavailable | + + + Support + + +---------+ + | Name | Relationship | Address | Phone | + + +---------+ + | Alexandria Dixon | ECON | Unknown | | + + +---------+ + Care Team Providers + +------+ + | Care Stripper Printed Circuit Boards Name | Role | Phone | + +------+ + | Bernardo Pan | PCP | | + +------+ + Reason for Visit + + + | Reason | Comments | + + + | Refill Request | hydrocortisone 5 mg | + + + Encounter Details +--------+--------+ + + + | Date | Type | Department | Care Team | Description | +--------+--------+ + + + | 06/12/ | Refill | Neurosurgery at | [place], | Refill Request | | 2016 | | [facility] [address] | Cathie | (hydrocortisone 5 | | | | [place] Mailcode: CH8N | DNP,CAFE LEAD,[place] [address] | mg) | | | | [facility] | [address] [place], | | | | | [place], | [place] [address] | | | | | [place] [address] | [phone] | | | | | [place], [place] | | | | | | [address] | | | | | | [phone] | | | +--------+--------+ + + + [...] | | 2020 | Visit | | [address] | | | | | | [address] | | | | | | [place], [place] | | | | | | [address] | | | | | | [phone] | | | | | | | [...]
--- OUTSIDE RECORDS SUMMARY | ~2019-07-14 | XMS | Encounter Summary ---
Demographics + + + | Address | [address] | | | [place] [address] | + + + | Home Phone [...] + + + | Author | [place] [employer] [facility] | + + + | Organization | [facility] | + + + | Address | Unknown | + + + | Phone | Unavailable | + + + Support + + +---------+ + | Name | Relationship | Address | Phone | + + +---------+ + | Alexandria Dixon | ECON | Unknown | | + + +---------+ + Care Team Providers + +------+ + | Care Ecommerce Manager Name | Role | Phone | + +------+ + | No Pcp Per Patient | PCP | Unavailable | + +------+ + Encounter Details +--------+ + + + + | Date | Type | Department | Care Team | Description | +--------+ + + + + | 12/13/ | MyChart | Neurosurgery at | [place], | blood sugar | | 2009 | Encounter | [facility] [address] | Cathie | | | | | [place] Mailcode: CH8N | DNP,SLAT BASKET MAKER HELPER MACHINE,[place] [address] | | | | | [facility] | [address] [place], | | | | | and [place], | [place] [address] | | | | | Building | [phone] | | | | | Floor [place], [place] | | | | | | [address] | | | | | | [phone] | | | +--------+ + + + [...] | | 2019 | Visit | | [address] | | | | | | [address] | | | | | | [place], [place] | | | | | | [address] | | | | | | [phone] | | | | | | | | +--------+---------+ + + + documented as of this encounter Visit Diagnoses Not on filedocumented in this encounter"
--- OUTSIDE RECORDS SUMMARY | ~2019-07-14 | XMS | Encounter Summary ---
Demographics + + + | Address | [address] | | | [place] [address] | + + + | Home Phone [...] + + | Author | [place] [employer] [facility] | + + + | Organization | [facility] [...] Providers + +------+ + | Care Medical Research Tech Name | Role | Phone | + +------+ + | No Pcp Per Patient | PCP | Unavailable | + +------+ + Encounter Details +--------+ + + + + | Date | Type | Department | Care Team | Description | +--------+ + + + + | 06/22/ | Documentati | Neurology at | Lynda Calvillo, | | | 2008 | on | [facility] & | MD | | | | | [address] | | | | | | [address] Mailcode: | | | | | | [facility] | | | | | | Health and Healing, | | | | | | Building | | | | | | [place], [place] | | | | | | [address] | | | | | | [phone] | | | +--------+ + + + [...] | | 2019 | Visit | | [address] | | | | | | [address] | | | | | | [place], [place] | | | | | | [address] | | | | | | [phone] | | | | | | | | +--------+---------+ + + + documented as of this encounter Visit Diagnoses Not on filedocumented in this encounter"
--- OUTSIDE RECORDS SUMMARY | ~2019-07-14 | XMS | Encounter Summary ---
Demographics + + + | Address | [address] [address] | | | [place] [address] | + + + | Home Phone [...] + + | Author | [place] [employer] [facility] | + + + | Organization | [facility] | + + + | Address | Unknown | + + + | Phone | Unavailable | + + + Support + + +---------+ + | Name | Relationship | Address | Phone | + + +---------+ + | Alexandria Dixon | ECON | Unknown | | + + +---------+ + Care Team Providers + +------+ + | Care Director Prospect Name | Role | Phone | + +------+ + | Bernardo Pan | PCP | | + +------+ + Encounter Details +--------+ + + + + | Date | Type | Department | Care Team | Description | +--------+ + + + + | 12/11/ | MyChart | Neurosurgery at | Donnie, | RE: Reschedule | | 2017 | Encounter | [place] [address] | Cathie | | | | | [place] Mailcode: [id number] | DNP,HOMEMAKING REHABILITATION CONSULTANT,[place] [address] | | | | | [facility] | [address] [place], | | | | | and [place], | [place] [address] | | | | | [facility] [address] | [phone] | | | | | [place], [place] | | | | | | [address] | | | | | | [phone] | | | +--------+ + + + [...] [address] | | | | | | [place], [place] | | | | | | [address] | | | | | | [phone] | | | | | | | | +--------+---------+ + + + documented as of this encounter Visit Diagnoses Not on filedocumented in this encounter"
--- OUTSIDE RECORDS SUMMARY | ~2019-07-14 | XMS | Encounter Summary ---
Demographics + + + | Address | [address] | | | [place] [address] | + + + | Home Phone | | + + + | Preferred Language | Unknown | + + + | Marital Status | Single | + + + | Congregational Affiliation | Unknown | + + + | Race | Unknown | + + + | Ethnic Group | Unknown | + + + Author + + + | Author | [facility] | | | and [place] | + + + | Organization | [facility] | | | and [place] [...] Team Providers + +------+ + | Care Career Technical Education Instructor Name | Role | Phone | + +------+ + PCP | Unavailable | + +------+ + Encounter Details +--------+ + + + + | Date | Type | Department | Care Team | Description | +--------+ + + + + | 11/01/ | Hospital | [facility] | Moiz Raza | | | 2010 | Encounter | MED CTR XRAY [address] | | | | | [place] | [address] [place], [place] | | | | | [place] [address] | [id number] | | | | | [phone] | | | +--------+ + + + [...] 2020 | Visit | | [address] | | | | | | [place] | | | | | | [address] | | | | | | | | +--------+---------+ + + + documented as of this encounter Procedures + +--------+ + + + | Procedure Name | Priori | Date/Time | Associated Diagnosis | Comments | | | ty | | | | + +--------+ + + + | MRI THORACIC SPINE | | 11/01/2010 | | Results for this | | WO CONTRAST | | 8:55 AM | | procedure are in the | | | | PDT | | results section. | + +--------+ + + + documented in this encounter Results MRI Thoracic Spine wo Contrast (11/01/2010 8:55 AM PDT) + + | Specimen | + + | | + + + + + | Narrative | Performed At | + + + | [facility] Diagnostic Imaging Department | [facility] | | [address] [facility] | [facility] | | UNENHANCED MRI THORACIC SPINE | DIAG IMG | | 11/01/2010 CLINICAL HISTORY: THORACIC PAIN. | | | COMPARISON: Cervical MRI 10/04/2009. TECHNIQUE: The | | | following 3T MR sequences of the thoracic spine were obtained: 1. | | | Sagittal STIR. 2. Axial, sagittal and coronal T2. | | | FINDINGS: There is fairly generalized rightward thoracic curvature | | | with straightening of the cervical lordosis. Small Schmorl's nodes | | | are present in multiple mid thoracic vertebral endplates, without | | | visible edema in the adjacent marrow. Cervical and thoracic | | | vertebral height and alignment otherwise appear maintained, | | | without evident fracture or subluxation. Minimally imaged contents | | | of the posterior fossa and foramen magnum are grossly unremarkable. | | | No significant cervical central canal stenosis is appreciated | | | on the provided large field of view sagittal images through this | | | region. Cervical neural foramina are not well visualized, and the | | | cervical spinal cord is not well evaluated due to motion and | | | decreased signal to noise ratio. Focal concavity of the dorsal | | | surface of the spinal cord is noted at the T6 level on both the | | | sagittal T2 and STIR sequences. While evaluation is significantly | | | limited by CSF pulsation artifact on the axial sequences, some | | | flattening of the dorsal surface of the cord is suggested in this | | | region. No signal alteration is suspected within the cord itself, | | | and the thoracic spinal cord otherwise demonstrates normal | | | intrinsic signal intensity and caliber. The conus medullaris is | | | unremarkable, terminating at T12-L1. Small right paramedian | | | disc protrusions are present at T5-6 and T6-7, without significant | | | central canal or neural foraminal encroachment. No significant | | | central canal or neural foraminal stenosis is visible within the | | | thoracic spine. Multilevel vertebral spondylosis is present. | | | Imaged paraspinal, intrathoracic and upper abdominal structures are | | | unremarkable. IMPRESSION: 1. LOCALIZED CONCAVITY OF | | | THE DORSAL CONTOUR OF THE SPINAL CORD AT THE T6 LEVEL, RAISING THE | | | POSSIBILITY OF AN ARACHNOID CYST, ALTHOUGH EVALUATION IS | | | COMPROMISED BY CSF PULSATION ARTIFACT IN THIS REGION. RECOMMEND | | | CONSIDERATION FOR FOLLOWUP ENHANCED MRI TO INCLUDE THIN SECTION | | | IMAGING THROUGH THIS REGION AND/OR CT THORACIC MYELOGRAPHY FOR | | | FURTHER CHARACTERIZATION. 2. RIGHTWARD THORACIC CURVATURE | | | AND STRAIGHTENING OF THE CERVICAL LORDOSIS, WITH MULTILEVEL | | | SCHMORL'S NODE FORMATION AND VERTEBRAL SPONDYLOSIS. Dictated | | | Date/Time: 11/01/2010 10:20 Transcribed Date/Time: 11/01/2010 | | | 10:58 Senior Center Director: <Electronically Signed by Phu Hernandez | | | MD Shorty> 11/01/10 [id number] | | + + + + + | Procedure Note | + + | Santhosh, Rad Conversion - 09/16/2013 2:[address] [facility] | | Diagnostic Imaging Department | | [address] [facility] | | | | | | | | UNENHANCED MRI THORACIC SPINE 11/01/2010 | | | | CLINICAL HISTORY: THORACIC PAIN. | | | | COMPARISON: Cervical MRI 10/04/2009. | | | | TECHNIQUE: The following 3T MR sequences of the thoracic spine were obtained: | | 1. Sagittal STIR. | | 2. Axial, sagittal and coronal T2. | | | | FINDINGS: There is fairly generalized rightward thoracic curvature with | | straightening of the | | cervical lordosis. Small Schmorl's nodes are present in multiple mid thoracic | | vertebral endplates, | | without visible edema in the adjacent marrow. Cervical and thoracic vertebral | | height and alignment | | otherwise appear maintained, without evident fracture or subluxation. | | Minimally imaged contents of | | the posterior fossa and foramen magnum are grossly unremarkable. No | | significant cervical central | | canal stenosis is appreciated on the provided large field of view sagittal | | images through this region. | | Cervical neural foramina are not well visualized, and the cervical spinal cord | | is not well evaluated | | due to motion and decreased signal to noise ratio. | | | | Focal concavity of the dorsal surface of the spinal cord is noted at the T6 | | level on both the sagittal | | T2 and STIR sequences. While evaluation is significantly limited by CSF | | pulsation artifact on the | | axial sequences, some flattening of the dorsal surface of the cord is suggested | | in this region. No | | signal alteration is suspected within the cord itself, and the thoracic spinal | | cord otherwise | | demonstrates normal intrinsic signal intensity and caliber. The conus | | medullaris is unremarkable, | | terminating at T12-L1. | | | | Small right paramedian disc protrusions are present at T5-6 and T6-7, without | | significant central | | canal or neural foraminal encroachment. No significant central canal or neural | | foraminal stenosis is | | visible within the thoracic spine. Multilevel vertebral spondylosis is | | present. | | | | Imaged paraspinal, intrathoracic and upper abdominal structures are | | unremarkable. | | | | IMPRESSION: | | 1. LOCALIZED CONCAVITY OF THE DORSAL CONTOUR OF THE SPINAL CORD AT THE | | T6 LEVEL, RAISING THE POSSIBILITY OF AN ARACHNOID CYST, ALTHOUGH | | EVALUATION IS COMPROMISED BY CSF PULSATION ARTIFACT IN THIS REGION. | | RECOMMEND CONSIDERATION FOR FOLLOWUP ENHANCED MRI TO INCLUDE THIN | | SECTION IMAGING THROUGH THIS REGION AND/OR CT THORACIC MYELOGRAPHY | | FOR FURTHER CHARACTERIZATION. | | | | 2. RIGHTWARD THORACIC CURVATURE AND STRAIGHTENING OF THE CERVICAL | | LORDOSIS, WITH MULTILEVEL SCHMORL'S NODE FORMATION AND VERTEBRAL | | SPONDYLOSIS. | | | | Dictated Date/Time: 11/01/2010 10:20 | | Transcribed Date/Time: 11/01/2010 10:58 | | Senior Center Director: | | <Electronically Signed by Phu Oro MD> 11/01/10 7626 | + + + +---------+ + + | Performing | Address | City/State/Zipcode | Phone Number | | Organization | | | | + +---------+ + + | [place] | | | | | [facility] | | | | + +---------+ + + documented in this encounter Visit Diagnoses Not on filedocumented in this encounter"
--- OUTSIDE RECORDS SUMMARY | ~2019-07-14 | XMS | Encounter Summary ---
Demographics + + + | Address | [address] [address] | | | [place] [address] | + + + | Home Phone | | + + + | Preferred Language | Unknown | + + + | Marital Status | Single | + + + | Alevism Affiliation | Unknown | + + + | Race | Unknown | + + + | Ethnic Group | Unknown | + + + Author + + + | Author | [facility] | | | and [place] | + + + | Organization | [facility] | | | and [...] Team Providers + +------+ + | Care Mobile Developer Name | Role | Phone | + +------+ + | Jinny Bergeron MD | PCP | | + +------+ + Reason for Visit + + + | Reason | Comments | + + + | Follow-up | nose surgery | + + + Evaluate & Treat (Routine) +--------+--------+ + + + + | Status | Reason | Specialty | Diagnoses / | Referred By | Referred To | | | | | Procedures | Contact | Contact | +--------+--------+ + + + + | Closed | | Otolaryngolog | Diagnoses | Vanl[place], | Mckay Zafar | | | | y | Follow up, | BRETT Schneider | MD Josef [address] | | | | | nose/[employer]/ | [address] | | | | | [place]/ | [place] | [place] [address] | | | | | Self/Request | [place], [place] | [place], | | | | | ed [employer] auth | [id number] | [place] [address] | | | | | for DOS | Phone: | Phone: | | | | | 04-16-16 | [phone] | [phone] | | | | | Procedures | Fax: | Fax: | | | | | OFFICE VISIT | [phone] | [phone] | | | | | REGULAR | | | +--------+--------+ + + + + Encounter Details +--------+---------+ + + + | Date | Type | Department | Care Team | Description | +--------+---------+ + + + | 04/16/ | Office | [facility] | Mckay Zafar MD | Hypertrophy of nasal | | 2016 | Visit | OTOLARYNGOLOGY [address] | [address] [place] | turbinates (Primary | | | | [address] [place] [address] | [address] [place], | Dx); 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[place], [place] | [place] [address] | septum; Obstructive | | | | [address] | [phone] | sleep apnea (adult) | | | | [phone] | | (pediatric) | +--------+---------+ + + [...] + + | Pulse | 84 | 04/16/2016 10:46 AM | | | | | PDT | | + + + + + | Temperature | - | - | | + + + + + | Respiratory Rate | 16 | 04/16/2016 10:46 AM | | | | | PDT | | + + + + + | Oxygen Saturation | 98% | 04/16/2016 10:46 AM | | | | | PDT | | + + + + + | Inhaled Oxygen | - | - | | | Concentration | | | | + + + + + | Weight | 120.2 kg (265 lb) | 04/16/2016 10:46 AM | | | | | PDT | | + + + + + | Height | 172.7 cm (5' 8") | 04/16/2016 10:46 AM | | | | | PDT | | + + + + + | Body Mass Index | 40.29 | 04/16/2016 10:46 AM | | | | | PDT | | + + + + + documented in this encounter Progress Notes Mckay Zafar MD - 04/16/2016 2:11 PM PDT [facility] OTOLARYNGOLOGY [address] [place] [id number] OFFICE NOTE MCKAY ZAFAR MD Patient: FAROOQ LEMA Admitting: MR #: [id number] LOC: PT TYPE: Adm Date: 04/16/2016 : 1980 DATE OF VISIT: 04/16/2016. The patient is postoperative a septoplasty and inferior turbinoplasties for a nose that wa s essentially totally occluded, had bleeding from the right inferior turbinate postoperativ didi and had to have it repacked with a balloon for a couple of days. It finally stopped bl eeding. Since then he has been able to do some irrigation. He has had no further problems with bleeding. He comes in for a followup visit. He is now 8 days postoperative. PHYSICAL EXAMINATION: Shows some pretty good crusts on both sides. Nose was sprayed well with some Aristides-Synephrine and topical Xylocaine. Some crusting and mucus were removed to the point he can breathe on both sides. There still is a fair amount of crusting back posteri jimbo on the left side, up high, and this is where he was bleeding from and has been left i n place. IMPRESSION: Postoperative stable. PLAN: The patient will continue with the nasal irrigations on a twice a day basis. He wi ll be seen again in about 2 weeks. MCKAY ZAFAR MD Dictated by MCKAY ZAFAR MD 04/16/2016 14:11:42 Transcribed on 04/17/2016 05:18:08 by nasima lion# [id number] Confirmation #: [id number] cc: JINNY BERGERON MD [facility], Mckay Bahena MD - 04/16/2016 2:08 PM PDTSee dictation #[id number] signed by Mckay Zafar MD at 04/16/2016 2:12 PM PDTdocumented in this encounter Plan of Treatment +--------+---------+ + + + | Date | Type | Specialty | Care Team | Description | +--------+---------+ + + + | 11/21/ | Office | Sleep Medicine | Sumanth Champion PA | | | 2019 | Visit | | [address] | | | | | | [place] | | | | | | [address] | | | | | | | | +--------+---------+ + + + documented as of this encounter Visit Diagnoses + + | Diagnosis | + + | Hypertrophy of nasal turbinates - Primary | + + | Deviated nasal septum | + + | Obstructive sleep apnea (adult) (pediatric) | + + documented in this encounter
--- OUTSIDE RECORDS SUMMARY | ~2019-07-14 | XMS | Encounter Summary ---
Demographics + + + | Address | [address] | | | [place] [address] | + + + | Home Phone [...] + + + | Author | [employer] [facility] | + + + | Organization | [facility] [...] Team Providers + +------+ + | Care Manager Desktop Name | Role | Phone | + [...] Description | +--------+--------+ + + + | 08/13/ | Refill | Neurosurgery at | [place], | Refill Request | | 2009 | | [facility] [address] | [place], | | | | | [place] Mailcode: CH8N | DNP,BURNING SUPERVISOR,[place] [address] | | | | | [facility] | [address] [place], | | | | | and [facility], | [place] [address] | | | | | Building [address] | [phone] | | | | | [place], [place] | | | | | | [address] | | | | | | [phone] | | | +--------+--------+ + + + [...] | | | | | | [place], [place] | | | | | | [address] | | | | | | [phone] | | | | | | | | +--------+---------+ + + + documented as of this encounter Visit Diagnoses Not on filedocumented in this encounter"
--- OUTSIDE RECORDS SUMMARY | ~2019-07-14 | XMS | Clinical Summary ---
Demographics + + + | Address | [address] | | | [place] [address] | + + + | Home Phone | | + + + | Preferred Language | Unknown | + + + | Marital Status | Single | + + + | Gnosticism Affiliation | Unknown | + + + | Race | Unknown | + + + | Ethnic Group | Unknown | + + + Author + + + | Author | [facility] (Historical as of | | | 03-26-19) | + + + | Organization | [facility] (Historical as of | | | 03-26-19) | + + + | Address | Unknown | + + + | Phone | Unavailable | + + + Support + + + + + | Name | Relationship | Address | Phone | + + + + + | Alexandria Dixon | ECON | [address] | | | | | [place] | | | | | [address] | | + + + + + | Abel Barajas | ECON | Unknown | | + + + + + | Sofia Reyes | ECON | Unknown | | + + + + + Care Team Providers + +------+ + | Care Supervisor Roving Department Name | Role | Phone | + +------+ + | Bernardo Pan | PP | | + +------+ + Allergies + + + + + + | Active Allergy | Reactions | Severity | Noted | Comments | | | | | Date | | + + + + + + | Sulfamethoxazole-Tri | Other (See Comments) | Medium | 09/07/19 | Sores in mouth and | | methoprim | | | 15 | couldn't breathe | + + + + + + Current Medications + + +--------+---------+------+------+-------+ | Prescription | Sig. | Disp. | Refills | Star | End | Statu | | | | | | t | Date | s | | | | | | Date | | | + + +--------+---------+------+------+-------+ | desmopressin | Take 0.2 mg by mouth | | | | | Activ | | (DDAVP) 0.2 MG | 2 (two) times | | | | | e | | tablet | daily. 1.5 tablets | | | | | | | | in am and 2 tablets | | | | | | | | in evening | | | | | | + + +--------+---------+------+------+-------+ | phentermine | Take 37.5 mg by | | | | | Activ | | (ADIPEX-P) 37.5 MG | mouth every morning | | | | | e | | tablet | before breakfast. | | | | | | + + +--------+---------+------+------+-------+ | ibuprofen (MOTRIN) | Take 800 mg by mouth | | | | | Activ | | 800 MG tablet | every 8 (eight) | | | | | e | | | hours as needed. | | | | | | + + +--------+---------+------+------+-------+ | | Take 1 tablet by | | | | | Activ | | HYDROcodone-acetamin | mouth 4 (four) times | | | | | e | | ophen (NORCO) 10-325 | daily as needed for | | | | | | | MG per tablet | Pain. | | | | | | + + +--------+---------+------+------+-------+ | Cholecalciferol | Take 6,000 Units by | | | | | Activ | | (VITAMIN D-3 PO) | mouth daily. | | | | | e | + + +--------+---------+------+------+-------+ | hydrocortisone | Take 5 mg by mouth | | | | | Activ | | (CORTEF) 5 MG tablet | every evening. | | | | | e | + + +--------+---------+------+------+-------+ | TESTOSTERONE | Inject 200 mLs into | | | | | Activ | | CYPIONATE IM | the muscle every 14 | | | | | e | | | (fourteen) days. | | | | | | + + +--------+---------+------+------+-------+ | atorvastatin | Take 80 mg by mouth | | | | | Activ | | (LIPITOR) 80 MG | nightly. | | | | | e | | tablet | | | | | | | + + +--------+---------+------+------+-------+ | levothyroxine | Take 125 mcg by | | | | | Activ | | (SYNTHROID) 125 MCG | mouth every morning | | | | | e | | tablet | before breakfast. | | | | | | + + +--------+---------+------+------+-------+ | amLODIPine | Take 1 tablet by | 30 | 3 | 11/0 | | Activ | | (NORVASC) 5 MG | mouth daily. | tablet | | 7/20 | | e | | tablet | | | | 16 | | | + + +--------+---------+------+------+-------+ | Somatropin 10 | Inject 0.8 mg into | | | | | Activ | | MG/2ML SOLN | the skin nightly. | | | | | e | + + +--------+---------+------+------+-------+ | metFORMIN | Take 1 tablet by | | | 06/11 | | Activ | | (GLUCOPHAGE) 500 MG | mouth 2 (two) times | | | 01/27 | | e | | tablet | daily with meals. | | | 16 | | | | | Hold for 2 more | | | | | | | | days. Restart | | | | | | | | 07/05/2016 | | | | | | + + +--------+---------+------+------+-------+ | lisinopril | Take 20 mg by mouth | | | | | Activ | | (ZESTRIL) 20 MG | daily. | | | | | e | | tablet | | | | | | | + + +--------+---------+------+------+-------+ | metoprolol | Take 100 mg by mouth | | | | | Activ | | (TOPROL-XL) 100 MG | daily. | | | | | e | | 24 hr tablet | | | | | | | + + +--------+---------+------+------+-------+ | warfarin | Take 5 mg by mouth | | | | | Activ | | (COUMADIN) 5 MG | daily. You | | | | | e | | tablet | regulates | | | | | | + + +--------+---------+------+------+-------+ Active Problems + + + | Problem | Noted Date | + + + | CAD (coronary artery disease) | 06/12/2014 | + + + + + | Last Assessment & Plan: 2V-CAD, Hx TN, Hx PCI/stent, LVEF | | 60-65%. 36yo M, known to have coronary disease, distant | | infarction, angioplasty and stenting. 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 He going to follow up | | with [facility] Aug 14. He also had cath report prior to procedure | | which had shown 2 vessel coronary artery disease with moderate | | disease to that proximal to mid LAD, stent to left CX, | | chronically occluded RCA with vqrn-az-rpjuy collaterals. | | Suggestion had been for [...] | | circumflex, chronically occluded RCA with phel-fx-hagoc | | collaterals. Suggestion for surgery: saphenous vein graft to | | RCA.Last Echo, 05/22/2016 ([facility]): LVEF 60-65%, | | significant WMA, 7-8mm mass LV-side of posterior Mitral leaflet, | | no MR, trace TR.Last Stress Test, 10/03/2014: Lexiscan, | | infero-apical ischemia, LVEF 54%.ECG, 07/02/2016: sinus rhythm, | | 63bpm, old inferior TN. | + + + + + | Essential hypertension | 06/12/2014 | + + + + + | Last Assessment & Plan: Hypertension, controlled, continue | | current meds at current doses (amlodipine, metoprolol, | | lisinopril). I will increase amlodipine when I see him next at | | his blood pressure is still not well-controlled. | + + + + + | HLD (hyperlipidemia) | 06/12/2014 | + + + + + | Last Assessment & Plan: Hyperlipidemia, at [place]ol, continue | | current meds at current dose (atorvastatin). He reports labs | | done recently and I have asked for them | + + + + + | History of pituitary tumor | 06/12/2014 | + + + + + | Last Assessment & Plan: Pituitary adenoma, followed by [facility], | | associated with hypogonadism, hypothyroidism, diabetes insipidus, | | and adrenal insufficiency. On replacement therapy.MRI-brain, | | 07/13/2151 ([facility]): FINDINGS: Sella and parasellar: There is a | | stable postsurgical appearance of the sella with opacification | | the sphenoid sinus is most likely related to surgical packing | | and/or mucosal thickening. There is a stable amount of enhancing | | tissue within the pituitary fossa but no new mass effect or | | nodularity. Stable mildly thickened pituitary infundibulum. | | Infundibulum is midline. Optic chiasm is normal. Parasellar | | structures are normal. Brain: Visualized portions are | | unremarkable. Soft tissues and marrow: Visualized portions are | | unremarkable. Stable posttreatment appearance of the sella is | | noted since 12/09/2013 as described.CT-head, 06/06/2016: No | | evidence of acute intracranial hemorrhage, transcortical | | infarction mass. Sphenoid sinusitis with near complete | | opacification. Trace right basilar effusion, probably | | inflammatory. | + + Family History + + +------+ + | Medical History | Relation | Name | Comments | + + +------+ + | Diabetes | Maternal | | | | | Grandmoth | | | | | er | | | + + +------+ + | Heart failure | Maternal | | | | | Grandmoth | | | | | er | | | + + +------+ + + +------+--------+ + | Relation | Name | Status | Comments | + +------+--------+ + | Father | | Alive | | + +------+--------+ + | Maternal Grandmother | | | | + +------+--------+ + | Mother | | Alive | | + +------+--------+ + Social History + +-------+ +--------+------+ | Tobacco Use | Types | Packs/Day | Years | Date | | | | | Used | | + +-------+ +--------+------+ | Never Smoker | | | | | + +-------+ +--------+------+ + +------+---+---+ | Smokeless Tobacco: | Chew | | | | Current User | | | | + +------+---+---+ + + +---------+ + | Alcohol Use | Drinks/We | oz/Week | Comments | | | ek | | | + + +---------+ + | No | 0 | 0.0 | | | | Standard | | | | | drinks or | | | | | | | | | | equivalen | | | | | t | | | + + +---------+ + + + + | Sex Assigned at | Date Recorded | | | | + + + | Not on file | | + + + Last Filed Vital Signs + + + + | Vital Sign | Reading | Time Taken | + + + + | Blood Pressure | 146/90 | 07/23/2016 3:07 PM PST | + + + + | Pulse | 78 | 07/23/2016 3:07 PM PST | + + + + | Temperature | 36.8 C (98.2 F) | 07/02/2016 1:15 PM PST | + + + + | Respiratory Rate | 18 | 07/23/2016 3:07 PM PST | + + + + | Oxygen Saturation | 97% | 07/23/2016 3:07 PM PST | + + + + | Inhaled Oxygen | - | - | | Concentration | | | + + + + | Weight | 126.4 kg (278 lb 9.6 | 07/23/2016 3:07 PM PST | | | oz) | | + + + + | Height | 172.7 cm (5' 8") | 07/23/2016 3:07 PM PST | + + + + | Body Mass Index | 42.36 | 07/23/2016 3:07 PM PST | + + + + Plan of Treatment + + + + + | Health [...] + + + | Vaccine: Influenza | | | | | (#1) | 9 | | | + + + + + Results Not on filefrom Last 3 Months Insurance + +--------+ +------+-------+ + | Payer | Benefi | Subscriber | Type | Phone | Address | | | t Plan | ID | | | | | | / | | | | | | | Group | | | | | + +--------+ +------+-------+ + | [facility] | YELLOW | [id number] | | | | | PLANS | [place] | | | | | + +--------+ +------+-------+ + | MEDICAID | [place] | [id number] | | | [address] | | | N | | | | [place] | | | [place] | | | | [address] | | | ICT SALES REPRESENTATIVE | | | | | + +--------+ +------+-------+ + + +--------+ +--------+ + + | Guarantor Name | Accoun | Relation to | Date | Phone | Billing Address | | | t Type | Patient | of | | | | | | | | | | + +--------+ +--------+ + + | FAROOQ LEMA V | Person | Self [birth year] Home: | [address] | | | al/Fam | | 1979 | [phone] | [place] | | | luli | | [phone] | + +--------+ +--------+ + +
--- OUTSIDE RECORDS SUMMARY | ~2019-07-14 | XMS | Encounter Summary ---
Demographics + + + | Address | [address] | | | [place] [address] | + + + | Home Phone [...] + + + | Author | [place] [email or web address] [facility] | + + + | Organization | [facility] | + + + | Address | Unknown | + + + | Phone | Unavailable | + + + Support + + +---------+ + | Name | Relationship | Address | Phone | + + +---------+ + | Alexandria Dixon | ECON | Unknown | | + + +---------+ + Care Team Providers + +------+ + | Care Scada Operator Name | Role | Phone | + +------+ + | No Pcp Per Patient | PCP | Unavailable | + +------+ + Encounter Details +--------+ + + + + | Date | Type | Department | Care Team | Description | +--------+ + + + + | 09/16/ | DELETED | Preoperative | Consult, | ANESTHESIA/SEDATION | | 2005 | TRANSCRIPTI | Medicine Clinic at | Anesthesia [address] | | | | ON | [facility] 4th Floor [address] [facility] | | | | | [address] [facility] | Road [place], [place] | | | | | Mailcode: [facility] | [id number] | | | | | [facility] | | | | | | and Healing, | | | | | | [facility] [address] [place] [address] | | | | | | [place], [place] | | | | | | [address] | | | | | | [phone] | | | +--------+ + + + [...] Rd | | | | | | [place], [place] | | | | | | [address] | | | | | | [phone] | | | | | | | | +--------+---------+ + + + documented as of this encounter Procedures + +--------+ + + + | Procedure Name | Priori | Date/Time | Associated Diagnosis | Comments | | | ty | | | | + +--------+ + + + | ANESTHESIA/SEDATION | | 09/16/2005 | | Results for this | | | | 10:35 AM | | procedure are in the | | | | PST | | results section. | + +--------+ + + + documented in this encounter Visit Diagnoses Not on filedocumented in this encounter"
--- OUTSIDE RECORDS SUMMARY | ~2019-07-14 | XMS | Encounter Summary ---
Demographics + + + | Address | [address] | | | [place] [address] | + + + | Home Phone [...] + + + | Author | [place] [employer] [facility] | + + + | Organization | [facility] | + + + | Address | Unknown | + + + | Phone | Unavailable | + + + Support + + +---------+ + | Name | Relationship | Address | Phone | + + +---------+ + | Alexandria Dixon | ECON | Unknown | | + + +---------+ + Care Team Providers + +------+ + | Care Design Quality Engineer Name | Role | Phone | [...] Refill Request | | 2006 | | [facility] [address] | [place], | | | | | [place] Mailcode: CH8N | DNP,BRICK PICKER,[place] [address] | | | | | [facility] | [address] [place], | | | | | and [facility], | [place] [address] | | | | | [facility] | [phone] | | | | | Floor [place], [place] | | | | | | [address] | | | | | | [phone] | | | +--------+--------+ + + + [...] Rd | | | | | | [place], [place] | | | | | | [address] | | | | | | [phone] | | | | | | | | +--------+---------+ + + + documented as of this encounter Visit Diagnoses Not on filedocumented in this encounter"
--- OUTSIDE RECORDS SUMMARY | ~2019-07-14 | XMS | Encounter Summary ---
Demographics + + + | Address | [address] | | | [place] [address] | + + + | Home Phone | | + + + | Preferred Language | Unknown | + + + | Marital Status | Single | + + + | Uatsdin Affiliation | Unknown | + + + | Race | Unknown | + + + | Ethnic Group | Unknown | + + + Author + + + | Author | [facility] | | | and [place] | + + + | Organization | [facility] | | | and [...] Team Providers + +------+ + | Care Fiber Heel Piece Shaper Name | Role | Phone | + +------+ + | Bren Arango PA-C | PCP | | + +------+ + Reason for Visit +--------+ + | Reason | Comments | +--------+ + | Other | | +--------+ + Encounter Details +--------+ + + + + | Date | Type | Department | Care Team | Description | +--------+ + + + + | 07/26/ | Telephone | [facility] | Jimmy Lara, | Other | | 2018 | | [facility] | MD [address] | | | | | [facility] [address] [place], | | | | | [place] | [place] [address] | | | | | [place] [address] | [phone] | | | | | [phone] | | | +--------+ + + + [...] 2020 | Visit | | [address] | | | | | | [place] | | | | | | [address] | | | | | | | | +--------+---------+ + + + documented as of this encounter Visit Diagnoses Not on filedocumented in this encounter"
--- OUTSIDE RECORDS SUMMARY | ~2019-07-14 | XMS | Encounter Summary ---
Demographics + + + | Address | [address] | | | [place] [address] | + + + | Home Phone [...] + + + | Author | [place] [employer] [facility] | + + + | Organization | [facility] | + + + | Address | Unknown | + + + | Phone | Unavailable | + + + Support + + +---------+ + | Name | Relationship | Address | Phone | + + +---------+ + | Alexandria Dixon | ECON | Unknown | | + + +---------+ + Care Team Providers + +------+ + | Care Paint Pourer Name | Role | Phone | + [...] Description | +--------+--------+ + + + | 11/18/ | Refill | Neurosurgery at | [place]nie, | Refill Request | | 2006 | | [facility] [address] | [place], | | | | | [place] Mailcode: CH8N | DNP,WINDOW GLASS CUTTER OFF,[place] [address] | | | | | [facility] | [address] [place], | | | | | and [facility], | [place] [address] | | | | | [facility] | [phone] | | | | | Floor [place], [place] | | | | | | [address] | | | | | | [phone] | | | +--------+--------+ + + + [...] Rd | | | | | | [place], [place] | | | | | | [address] | | | | | | [phone] | | | | | | | | +--------+---------+ + + + documented as of this encounter Visit Diagnoses Not on filedocumented in this encounter"
--- OUTSIDE RECORDS SUMMARY | ~2019-07-14 | XMS | Encounter Summary ---
Demographics + + + | Address | [address] | | | [place] [address] | + + + | Home Phone [...] + + + | Author | [place] [employer] [facility] | + + + | Organization | [facility] | + + + | Address | Unknown | + + + | Phone | Unavailable | + + + Support + + +---------+ + | Name | Relationship | Address | Phone | + + +---------+ + | Alexandria Dixon | ECON | Unknown | | + + +---------+ + Care Team Providers + +------+ + | Care Record Center Specialist Name | Role | Phone | + +------+ + | No Pcp Per Patient | PCP | Unavailable | + +------+ + Encounter Details +--------+ + + + + | Date | Type | Department | Care Team | Description | +--------+ + + + + | 08/24/ | MyChart | Neurosurgery at | [place], | RE: [place] | | 2009 | Encounter | [facility] [address] | | | | | [place] Mailcode: CH8N | DNP,CD MANUFACTURING SUPERVISOR,[place] [address] | | | | | [facility] | [address] [place], | | | | | and Healing, | [place] [address] | | | | | Building [address] | [phone] | | | | | [place], [place] | | | | | | [address] | | | | | | [phone] | | | +--------+ + + + [...] Rd | | | | | | [place], [place] | | | | | | [address] | | | | | | [phone] | | | | | | | | +--------+---------+ + + + documented as of this encounter Visit Diagnoses Not on filedocumented in this encounter"
--- OUTSIDE RECORDS SUMMARY | ~2019-07-14 | XMS | Encounter Summary ---
Demographics + + + | Address | [address] | | | [place] [address] | + + + | Home Phone [...] + + + | Author | [place] [employer] [facility] | + + + | Organization | [facility] | + + + | Address | Unknown | + + + | Phone | Unavailable | + + + Support + + +---------+ + | Name | Relationship | Address | Phone | + + +---------+ + | Alexandria Dixon | ECON | Unknown | | + + +---------+ + Care Team Providers + +------+ + | Care Front End Ui Developer Name | Role | Phone | + +------+ + | Priscilla Ramírez PA-C | PCP | | + +------+ + Encounter Details +--------+ + + + + | Date | Type | Department | Care Team | Description | +--------+ + + + + | 08/22/ | Ancillary | Registration [address] | [address]b [address]illaume, | | | 2005 | Registratio | [address] | [address] | | | | n | Abdoulaye Mailcode: [id number] | [place], [place] | | | | | [place], [place] | [address] | | | | | [address] | | | | | | [phone] | | | +--------+ + + + [...] | | 2019 | Visit | | [address] | | | | | | [place] | | | | | | [place], [place] | | | | | | [address] | | | | | | [phone] | | | | | | | | +--------+---------+ + + + documented as of this encounter Procedures + +--------+ + + + | Procedure Name | Priori | Date/Time | Associated Diagnosis | Comments | | | ty | | | | + +--------+ + + + | CORTISOL, SERUM | Routin | 08/22/2005 | | Results for this | | | e | 12:30 PM | | procedure are in the | | | | PST | | results section. | + +--------+ + + + | PROLACTIN | Routin | 08/22/2005 | | Results for this | | | e | 12:01 PM | | procedure are in the | | | | PST | | results section. | + +--------+ + + + | ACTH, PLASMA | Routin | 08/22/2005 | | Results for this | | | e | 12:00 PM | | procedure are in the | | | | PST | | results section. | + +--------+ + + + | BASIC METABOLIC SET | Routin | 08/22/2005 | | Results for this | | (NA, K, CL, TCO2, | e | 12:00 PM | | procedure are in the | | BUN, CR, GLU, CA) | | PST | | results section. | + +--------+ + + + | INSULIN GROWTH | Routin | 08/22/2005 | | Results for this | | FACTOR-1, SERUM | e | 12:00 PM | | procedure are in the | | | | PST | | results section. | + +--------+ + + + | FREE T4 | Routin | 08/22/2005 | | Results for this | | | e | 12:00 PM | | procedure are in the | | | | PST | | results section. | + +--------+ + + + | PROLACTIN | Routin | 08/22/2005 | | Results for this | | | e | 12:00 PM | | procedure are in the | | | | PST | | results section. | + +--------+ + + + | TSH | Routin | 08/22/2005 | | Results for this | | | e | 12:00 PM | | procedure are in the | | | | PST | | results section. | + +--------+ + + + | TESTOSTERONE, SERUM | Routin | 08/22/2005 | | Results for this | | | e | 12:00 PM | | procedure are in the | | | | PST | | results section. | + +--------+ + + + | LUTEINIZING HORMONE, | Routin | 08/22/2005 | | Results for this | | SERUM | e | 12:00 PM | | procedure are in the | | | | PST | | results section. | + +--------+ + + + | FSH, SERUM | Routin | 08/22/2005 | | Results for this | | | e | 12:00 PM | | procedure are in the | | | | PST | | results section. | + +--------+ + + + | CORTISOL, SERUM | Routin | 08/22/2005 | | Results for this | | | e | 12:00 PM | | procedure are in the | | | | PST | | results section. | + +--------+ + + + documented in this encounter Results CORTISOL, SERUM (08/22/2005 12:30 PM PST) + + + + + + | Component | Value | Ref Range | Performed | Pathologist | | | | | At | Signature | + + + + + + | CORTISOL, | 7.1Comment: Test | 5.0 - 23.0 | | | | TOTAL SERUM | performed by [facility] | ug/dl | | | | | [facility] | | | | | | Laboratories. | | | | + + + + + + | TIME | 00:30 | Hrs:mins | | | + + + + + + + + | Specimen | + + | | + + + + + | Narrative | Performed At | + + + | Cortisol Reference Ranges | | | AM Reference Range: 8.0 - 23.0 ug/dl | | | PM Reference Range: Less than 10.0 ug/dl | | + + + + + + + + | Performing | Address | City/State/Zipcode | Phone Number | | Organization | | | | + + + + + | [facility] | [address] | [place] [address] | | | LABORATORY | | | | + + + + + PROLACTIN (08/22/2005 12:01 PM PST) + + + + + + | Component | Value | Ref Range | Performed | Pathologist | | | | | At | Signature | + + + + + + | PROLACTIN | 16Comment: Test | 3 - 17 ng/ml | | | | | performed by [facility] | | | | | | [facility] | | | | | | Labaoratory. | | | | + + + + + + + + | Specimen | + + | | + + + + + + + | Performing | Address | City/State/Zipcode | Phone Number | | Organization | | | | + + + + + | [facility] | [address] | [place] [address] | | | LABORATORY | | | | + + + + + TESTOSTERONE (08/22/2005 12:00 PM PST) + + + + + + | Component | Value | Ref Range | Performed | Pathologist | | | | | At | Signature | + + + + + + | TESTOSTERON | 32 (L)Comment: Test | 241 - 950 ng/dl | | | | E, SERUM | performed by [facility] | | | | | | [facility] | | | | + + + + + + + + | Specimen | + + | | + + + + + + + | Performing | Address | City/State/Zipcode | Phone Number | | Organization | | | | + + + + + | [facility] | [address] | [place] [address] | | | LABORATORY | | | | + + + + + IGF-1 (08/22/2005 12:00 PM PST) + + + + + + | Component | Value | Ref Range | Performed | Pathologist | | | | | At | Signature | + + + + + + | IGF-1 | 52 (L)Comment: | 117 - 329 ng/mL | | | | | Test performed by [facility] | | | | | | [facility] | | | | | | [facility] performing lab | | | | | | and reference range | | | | | | effective 06/04/05 | | | | + + + + + + + + | Specimen | + + | | + + + + + + + | Performing | Address | City/State/Zipcode | Phone Number | | Organization | | | | + + + + + | [facility] | [address] | [place] [address] | | | LABORATORY | | | | + + + + + ACTH (08/22/2005 12:00 PM PST) + + + + + + | Component | Value | Ref Range | Performed | Pathologist | | | | | At | Signature | + + + + + + | ACTH,PLASMA | < 5Comment: Test | <46 pg/mL | | | | | performed by [facility] | | | | | | [facility] | | | | | | [facility]. New | | | | | | performing laboratory | | | | | | and reference range | | | | | | lrbnpapls40/21/05. | | | | + + + [...] + + + | [facility] | [address] | [place] [address] | | | LABORATORY | | | | + + + + + CORTISOL, SERUM (08/22/2005 12:00 PM PST) + + + + + + | Component | Value | Ref Range | Performed | Pathologist | | | | | At | Signature | + + + + + + | CORTISOL, | < 1.0 (L)Comment: Test | 5.0 - 23.0 | | | | TOTAL SERUM | performed by [facility] | ug/dl | | | | | [facility] | | | | | | Laboratories. | | | | + + + + + + | TIME | 00:00 | Hrs:mins | | | + + + + + + + + | Specimen | + + | | + + + + + | Narrative | Performed At | + + + | Cortisol Reference Ranges | | | AM Reference Range: 8.0 - 23.0 ug/dl | | | PM Reference Range: Less than 10.0 ug/dl | | + + + + + + + + | Performing | Address | City/State/Zipcode | Phone Number | | Organization | | | | + + + + + | [facility] | [address] | [place] [address] | | | LABORATORY | | | | + + + + + FSH, SERUM (08/22/2005 12:00 PM PST) + + + + + + | Component | Value | Ref Range | Performed | Pathologist | | | | | At | Signature | + + + + + + | FSH,SERUM | 2Comment: | <18 mIU/mL | | | | | FSH Normals: | | | | | | Males: | | | | | | <18 | | | | | | Females | | | | | | Follicular: 2-12 | | | | | | | | | | | | Mid-cycle: 3-33 | | | | | | Luteal: | | | | | | 2-12 | | | | | | Post.wilfredo: >20 | | | | | | Test performed by | | | | | | [facility] | | | | | | [facility]. | | | | + + + + + + + + | Specimen | + + | | + + + + + + + | Performing | Address | City/State/Zipcode | Phone Number | | Organization | | | | + + + + + | [facility] | [address] | [place] [address] | | | LABORATORY | | | | + + + + + FREE T4, SERUM (08/22/2005 12:00 PM PST) + + + + + + | Component | Value | Ref Range | Performed | Pathologist | | | | | At | Signature | + + + + + + | FREE T4, | 0.8Comment: Test | 0.7 - 1.8 ng/dL | | | | SERUM | performed by [facility] | | | | | | [facility] | | | | | | Laboratories. | | | | + + + + + + + + | Specimen | + + | | + + + + + + + | Performing | Address | City/State/Zipcode | Phone Number | | Organization | | | | + + + + + | [facility] | [address] | [place] [address] | | | LABORATORY | | | | + + + + + LUTEINIZING HORMONE (08/22/2005 12:00 PM PST) + + + + + + | Component | Value | Ref Range | Performed | Pathologist | | | | | At | Signature | + + + + + + | LUTEINIZING | 2Comment: LH | <11 mIU/mL | | | | | Normals | | | | | HORMONE,SER | Males <11 | | | | | UM | Females | | | | | | Follicular | | | | | | <19 | | | | | | Mid-cycle 15-80 | | | | | | Luteal | | | | | | <19 | | | | | | Post-Gos[place]. 16-64 | | | | | | Test performed by | | | | | | [facility] | | | | | | Regional [facility]. | | | | + + + + + + + + | Specimen | + + | | + + + + + + + | Performing | Address | City/State/Zipcode | Phone Number | | Organization | | | | + + + + + | [facility] | [address] | [place] [address] | | | LABORATORY | | | | + + + + + PROLACTIN (08/22/2005 12:00 PM PST) + + + + + + | Component | Value | Ref Range | Performed | Pathologist | | | | | At | Signature | + + + + + + | PROLACTIN | 16Comment: Test | 3 - 17 ng/ml | | | | | performed by [facility] | | | | | | [facility] | | | | | | Labaoratory. | | | | + + + + + + + + | Specimen | + + | | + + + + + + + | Performing | Address | City/State/Zipcode | Phone Number | | Organization | | | | + + + + + | [facility] | [address] | [place] [address] | | | LABORATORY | | | | + + + + + TSH-THYROID STIM HORMONE (08/22/2005 12:00 PM PST) + + + + + + | Component | Value | Ref Range | Performed | Pathologist | | | | | At | Signature | + + + + + + | TSH | 0.28Comment: Test | 0.28 - 5.00 | | | | | performed by [facility] | [facility] | | | | | [facility] | | | | | | Laboratories. | | | | + + + + + + + + | Specimen | + + | | + + + + + + + | Performing | Address | City/State/Zipcode | Phone Number | | Organization | | | | + + + + + | [facility] | [address] | [place] [address] | | | LABORATORY | | | | + + + + + BASIC METABOLIC SET (08/22/2005 12:00 PM PST) + +---------+ + + + | Component | Value | Ref Range | Performed | Pathologist | | | | | At | Signature | + +---------+ + + + | GLUCOSE, | 115 (H) | 65 - 110 mg/dL | [facility] | | | PLASMA | | | DEPARTMENT | | | (LAB) | | | OF | | | | | | PATHOLOGY | | + +---------+ + + + | BUN, PLASMA | 12 | 6 - 20 mg/dL | [facility] | | | (LAB) | | | DEPARTMENT | | | | | | OF | | | | | | PATHOLOGY | | + +---------+ + + + | CREATININE | 0.8 | 0.7 - 1.3 mg/dL | [facility] | | | PLASMA | | | DEPARTMENT | | | (LAB) | | | OF | | | | | | PATHOLOGY | | + +---------+ + + + | SODIUM, | 140 | 136 - 145 | [facility] | | | PLASMA | | mmol/L | DEPARTMENT | | | (LAB) | | | OF | | | | | | PATHOLOGY | | + +---------+ + + + | POTASSIUM, | 3.8 | 3.5 - 5.1 | [facility] | | | PLASMA | | mmol/L | DEPARTMENT | | | (LAB) | | | OF | | | | | | PATHOLOGY | | + +---------+ + + + | CHLORIDE, | 103 | 98 - 107 mmol/L | [facility] | | | PLASMA | | | DEPARTMENT | | | (LAB) | | | OF | | | | | | PATHOLOGY | | + +---------+ + + + | TOTAL CO2, | 25 | 23 - 29 mmol/L | [facility] | | | PLASMA | | | DEPARTMENT | | | (LAB) | | | OF | | | | | | PATHOLOGY | | + +---------+ + + + | CALCIUM, | 9.0 | 8.5 - 10.5 | [facility] | | | PLASMA | | mg/dL | DEPARTMENT | | | (LAB) | | | OF | | | | | | PATHOLOGY | | + +---------+ + + + + + | Specimen | + + | | + + + + + | Narrative | Performed At | + + + | [address]80 Estimated GFR > 60 mL/min/1.73 sq m if non- | [facility] | | [address] Estimated GFR > 60 mL/min/1.73 sq m [...] Rapidly | | | changing kidney function | | + + + + + + + + | Performing | Address | City/State/Zipcode | Phone Number | | Organization | | | | + + + + + | [facility] | [address] | [place] [address] | | | PATHOLOGY | [address] | | | + + + + + | [facility] | [address] | [place] [address] | | | PATHOLOGY | [address] | | | + + + + + documented in this encounter Visit Diagnoses Not on filedocumented in this encounter"
--- OUTSIDE RECORDS SUMMARY | ~2019-07-14 | XMS | Encounter Summary ---
Demographics + + + | Address | [address] | | | [place] [address] | + + + | Home Phone [...] + + | Author | [place] [employer] [facility] | + + + | Organization | [facility] | + + + | Address | Unknown | + + + | Phone | Unavailable | + + + Support + + +---------+ + | Name | Relationship | Address | Phone | + + +---------+ + | Alexandria Dixon | ECON | Unknown | | + + +---------+ + Care Team Providers + +------+ + | Care Commodities Manager Name | Role | Phone | + +------+ + | No Pcp Per Patient | PCP | Unavailable | + +------+ + Encounter Details +--------+------+ + + + | Date | Type | Department | Care Team | Description | +--------+------+ + + + | 12/04/ | Lab | Laboratory at [facility] | | Pituitary adenoma | | 2011 | | [address] | | ([facility]); 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 | | | | | ([facility]) Diabetes | | | | | | [...] Way Lab) [facility] | REGIONAL | | [place] [place] [address] | LABORATORY | | [place] [address] | | + + + + + + + + | Performing | Address | City/State/Zipcode | Phone Number | | Organization | | | | + + + + + | [facility] | [address] | [place] [address] | | | LABORATORY | | | [...] [facility] | [facility] | | [place] [address] | REGIONAL | | [place] [address] | LABORATORY | + + + + + + + + | Performing | Address | City/State/Zipcode | Phone Number | | Organization | | | | + + + + + | [facility] | [address] | [place] [address] | | | LABORATORY | | | [...] At | + + + | [facility] ([address] [facility] | [facility] | | [place] [address] | REGIONAL | | [place] [address] | LABORATORY | + + + + + + + + | Performing | Address | City/State/Zipcode | Phone Number | | Organization | | | | + + + + + | [facility] | [address] | [place] [address] | | | LABORATORY | | | [...] At | + + + | [facility] ([address] [facility]) [facility] | [facility] | | [place] [address] | REGIONAL | | [place] [address] | LABORATORY | + + + + + + + + | Performing | Address | City/State/Zipcode | Phone Number | | Organization | | | | + + + + + | [facility] | [address] | [place] [address] | | | LABORATORY | | | [...] Way Lab) [facility] | [facility] | | [place] [address] [facility] | [facility] | | [place] [address] | LABORATORY | + + + + + + + + | Performing | Address | City/State/Zipcode | Phone Number | | Organization | | | | + + + + + | [facility] | [address] [facility] [address] [facility] | [place] [address] | | | LABORATORY | | | [...] | | | DEPARTMENT | | | [place] | | | OF | | | [...] | + + + + + | [facility] | [address] | [place] [address] | | | PATHOLOGY | [address] [...]
--- OUTSIDE RECORDS SUMMARY | ~2019-07-14 | XMS | Encounter Summary ---
Demographics + + + | Address | [address] | | | [place] [address] | + + + | Home Phone [...] + + | Author | [place] [facility] | + + + | Organization | [facility] | + + + | Address | Unknown | + + + | Phone | Unavailable | + + + Support + + +---------+ + | Name | Relationship | Address | Phone | + + +---------+ + | Alexandria Dixon | ECON | Unknown | | + + +---------+ + Care Team Providers + +------+ + | Care Restoration Technician Name | Role | Phone | + +------+ + | Jinny Bergeron MD | PCP | | + +------+ + Encounter Details +--------+------+ + + + | Date | Type | Department | Care Team | Description | +--------+------+ + + + | 06/02/ | Lab | Laboratory at [facility] | | 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 | | [address] | | ([facility]); 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[place], [place]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 | | | | [address] | | ([facility]); Diabetes | | | | [phone] | | insipidus ([facility]); | | | | | | Hypogonadism [...] | | 2019 | Visit | | [address] | | | | | | [address] | | | | | | [place], [place] | | | | | | [address] | | | | | | [phone] | | | | | | | | +--------+---------+ + + + documented as of this encounter Procedures + +--------+ + + + | Procedure Name | Priori | Date/Time | Associated Diagnosis | Comments | | | ty | | | | + +--------+ + + + | BASIC METABOLIC SET | Routin | 06/02/2014 | Pituitary adenoma | Results for this | | (NA, K, CL, TCO2, | e | 2:28 PM | (HCC) Growth | procedure are [...] + | INSULIN GROWTH | Routin | 06/02/2014 | Pituitary adenoma | Results for this | | FACTOR-1, SERUM | e | 2:28 PM | (HCC) Growth | procedure are [...] + | FREE T4 | Routin | 06/02/2014 | Pituitary adenoma | Results for this | | | e | 2:28 PM | (HCC) Growth | procedure are [...] + + | PROLACTIN | Routin | 06/02/2014 | Pituitary adenoma | Results for this | | | e | 2:28 PM | (HCC) Growth | procedure are [...] + + | TSH | Routin | 06/02/2014 | Pituitary adenoma | Results for this | | | e | 2:28 PM | (HCC) Growth | procedure are [...] + | TESTOSTERONE, SERUM | Routin | 06/02/2014 | Pituitary adenoma | Results for this | | | e | 2:28 PM | (HCC) Growth | procedure are [...] + documented in this encounter Results TSH (06/02/2014 2:28 PM [...] | + + + + + | [facility] | [address] | [place] [address] | | | SERVICES, CORE | [address] [...] - | | | | | | [facility] | | + +-------+ + + + + + | Specimen | + + | Blood - Blood | + + + + + + + | Performing | Address | City/State/Zipcode | Phone Number | | Organization | | | | + + + + + | [facility] | [address] | [place] [address] | | | [place] | | | | + + + [...] + | [facility] | [address] | [place] [address] | | | [place] | | | [...] - | | | | | | [place] | | + +--------+ + + + + + | Specimen | + + | Blood - Blood | + + + + + + + | Performing | Address | City/State/Zipcode | Phone Number | | Organization | | | | + + + + + | [facility] | [address] | [place] [address] | | | [place] | | | | + + + [...] + | Test now performed at [facility]. New method effective 06/22/13. | [facility] | | | LABORATORY | | | SERVICES, CORE | + + + + + + + + | Performing | Address | City/State/Zipcode | Phone Number | | Organization | | | | + + + + + | [facility] | [address] | [place] [address] | | | SERVICES, CORE | [address] [...] | | | LABORATORY | | | [place] | | | SERVICES, | | | [...] Information: <60 mL/min/1.73 sq m | MASSIEL, VITALY | | Chronic Kidney Disease <15 mL/min/1.73 [...] + + + + + | [facility] | [address] | [place] [address] | | | VITALY RANKIN | [address] [...]
--- OUTSIDE RECORDS SUMMARY | ~2019-07-14 | XMS | Encounter Summary ---
Demographics + + + | Address | [address] | | | [place] [address] | + + + | Home Phone | | + + + | Preferred Language | Unknown | + + + | Marital Status | Single | + + + | Bahai Affiliation | NON | + + + | Race | or | + + + | Ethnic Group | Not or | + + + Author + + + | Author | [place] [employer] [facility] | + + + | Organization | [facility] | + + + | Address | Unknown | + + + | Phone | Unavailable | + + + Support + + +---------+ + | Name | Relationship | Address | Phone | + + +---------+ + | Alexandria Dixon | ECON | Unknown | | + + +---------+ + Care Team Providers + +------+ + | Care Managed Care Liaison Name | Role | Phone | + +------+ + | Jinny Bergeron MD | PCP | | + +------+ + Encounter Details +--------+ + + + + | Date | Type | Department | Care Team | Description | +--------+ + + + + | 03/20/ | MyChart | Neurosurgery at | Donnie, | Refill | | 2013 | Encounter | [facility] [address] | Cathie | | | | | [place] Mailcode: CH8N | DNP,BRIMMER BLOCKER,[place] [address] | | | | | [facility] | [place]ura [place], | | | | | [place], | [place] [address] | | | | | [place] [address] | [phone] | | | | | [place], [place] | | | | | | [address] | | | | | | [phone] | | | +--------+ + + + [...] Rd | | | | | | [place], [place] | | | | | | [address] | | | | | | [phone] | | | | | | | [...]
--- OUTSIDE RECORDS SUMMARY | ~2019-07-14 | XMS | Encounter Summary ---
Demographics + + + | Address | [address] | | | [place] [address] | + + + | Home Phone | | + + + | Preferred Language | Unknown | + + + | Marital Status | Single | + + + | Church Affiliation | NON | + + + | Race | or | + + + | Ethnic Group | Not or | + + + Author + + + | Author | [place] [employer] [facility] | + + + | Organization | [facility] | + + + | Address | Unknown | + + + | Phone | Unavailable | + + + Support + + +---------+ + | Name | Relationship | Address | Phone | + + +---------+ + | Alexandria Dixon | ECON | Unknown | | + + +---------+ + Care Team Providers + +------+ + | Care Automatic Mold Sander Name | Role | Phone | + [...] Refill Request | | 2008 | | [facility] [address] | [place], | | | | | [place] Mailcode: CH8N | DNP,GAS MAKER HELPER,[place] [address] | | | | | [facility] | [address] [place], | | | | | and [facility], | [place] [address] | | | | | Building [address] | [phone] | | | | | [place], [place] | | | | | | [address] | | | | | | [phone] | | | +--------+--------+ + + + [...] Rd | | | | | | [place], [place] | | | | | | [address] | | | | | | [phone] | | | | | | | | +--------+---------+ + + + documented as of this encounter Visit Diagnoses Not on filedocumented in this encounter"
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
--- OUTSIDE RECORDS SUMMARY | ~2019-07-14 | XMS | Encounter Summary ---
Demographics + + + | Address | [address] | | | [place] [address] | + + + | Home Phone [...] + + + | Author | [place] [facility] | + + + | Organization | [facility] | + + + | Address | Unknown | + + + | Phone | Unavailable | + + + Support + + +---------+ + | Name | Relationship | Address | Phone | + + +---------+ + | Alexandria Dixon | ECON | Unknown | | + + +---------+ + Care Team Providers + +------+ + | Care Matrix Repairer Name | Role | Phone | [...] | | | | | | | DNP,PUMP SERVICER HELPER,[place] | | | | | | | [address] | | | | | | | [address] | | | | | | | [place], [place] | | | | | | | [address] | | | | | | | Phone: | | | | | | | [phone] | | | | | | | Fax: | | | | | | | [phone] | +--------+--------+ + + + + Encounter Details +--------+---------+ + + + | Date | Type | Department | Care Team | Description | +--------+---------+ + + + | 06/05/ | Office | Neurosurgery at | Donnie, | Pituitary Adenoma | | 2008 | Visit | [facility] [address] | Cathie | (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) | | | | [phone] | | | +--------+---------+ + + + [...] + + + | Blood Pressure | 139/84 | 06/05/2009 8:42 AM | | | | | PDT | | + + + + + | Pulse | 86 | 06/05/2009 8:42 AM | | | | | PDT | | + + + + + | Temperature | - | - | | + + + + + | Respiratory Rate | 14 | 06/05/2009 8:42 AM | | | | | PDT | | + + + + + | Oxygen Saturation | - | - | | + + + + + | Inhaled Oxygen | - | - | | | Concentration | | | | + + + + + | Weight | 130.8 kg (288 lb 4.8 | 06/05/2009 8:42 AM | | | | oz) | PDT | | + + + + + | Height | 172.7 cm (5' 8") | 06/05/2009 8:42 AM | | | | | PDT | | + + + + + | Body Mass Index | 43.84 | 06/05/2009 8:42 AM | | | | | PDT | | + + + + + documented in this encounter Progress Notes Cathie Fields, DNP,PUMP SERVICER HELPER,[place] - 06/05/2009 10:02 AM PDT Reason for visit. Amairani Tyler returns to pituitary clinic 06/05/09 for interval review of p ituitary symptoms and titration of hormone replacement. 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 Christiano Styles.At last visit he was noted to have low levels of all hormone replacement. At this visit Pituitary Symptoms and Complaints: Hair Loss (on head): Same (06/05/09 8:45 AM) Facial Hair (women-increase; men-decrease): Same (06/05/09 8:45 AM) Headache: Worse (06/05/09 8:45 AM) Increase in space between teeth: Same (06/05/09 8:45 AM) Nasal dripping or salty taste in mouth: Same (06/05/09 8:45 AM) Facial rounding: Same (06/05/09 8:45 AM) Facial redness: Same (06/05/09 8:45 AM) Acne: Same (06/05/09 8:45 AM) Hump on back of neck: Same (06/05/09 8:45 AM) Fat filling around collar bones: Same (06/05/09 8:45 AM) Blurry Vision, intermittent: Same (06/05/09 8:45 AM)Constipation: Same ( 8:45 AM) Diarrhea: Same (06/05/09 8:45 AM) Breast tenderness (men): Same (06/05/09 8:45 AM) Breast enlargement (men): Same (06/05/09 8:45 AM) Breast discharge: Same (06/05/09 8:45 AM) Belly discomfort: Same (06/05/09 8:45 AM) Nausea: Same (06/05/09 8:45 AM) Vomiting: Same (06/05/09 8:45 AM)Dry skin: Same (06/05/09 8:45 AM) Oily skin: Same (06/05/09 8:45 AM) Skin tags: Same (06/05/09 8:45 AM) Dark patches of skin under arms: Same (06/05/09 8:45 AM) Easy bruising: Same (06/05/09 8:45 AM) Thin skin: Same (06/05/09 8:45 AM) Stretch morse: Same (06/05/09 8:45 AM) Rash: Same (06/05/09 8:45 AM)Temperature fluctuations: Same (06/05/09 8:4 5 AM) Weight change: Same (06/05/09 8:45 AM) Weight gain mostly around midsection: Same (06/05/09 8:45 AM) Poor wound healing: Same (06/05/09 8:45 AM) Hot flashes: Same (06/05/09 8:45 AM) Night sweats: Same (06/05/09 8:45 AM) Decreased sexual interest: Same (06/05/09 8:45 AM) Increased thirst: Same (06/05/09 8:45 AM) Increased urination: Same (06/05/09 8:45 AM) Increased hunger: Same (06/05/09 8:45 AM) Acid Reflux/Heartburn: Same (06/05/09 8:45 AM) Heart racing or pounding: Same (06/05/09 8:45 AM) Fractures / Height loss: Same (06/05/09 8:45 AM) Chest pain: Same (06/05/09 8:45 AM) Blood in stool: Same (06/05/09 8:45 AM) Blood in urine: Same (06/05/09 8:45 AM) Blood in phlegm: Same (06/05/09 8:45 AM) Shortness of breath: Same (06/05/09 8:45 AM) Wheezing: Same (06/05/09 8:45 AM)Blood sugar: Same (06/05/09 8:45 AM) Blood pressure: Same (06/05/09 8:45 AM) Sleep apnea (snoring): Same (06/05/09 8:45 AM) Lipids (high): Same (06/05/09 8:45 AM)Weakness: Same (06/05/09 8:45 AM) Swelling / edema : Same (06/05/09 8:45 AM) Brittle fingernails: Same (06/05/09 8:45 AM) Joint aches: Worse (06/05/09 8:45 AM) Tremor: Same (06/05/09 8:45 AM) Cramping: Same (06/05/09 8:45 AM) Increase in size of hands: Same (06/05/09 8:45 AM) Increase in size of feet: Same (06/05/09 8:45 AM) Hand / finger numbness (carpal tunnel syndrome): Same (06/05/09 8:45 AM)Memory pro blems: Same (06/05/09 8:45 AM) Poor concentration: Same (06/05/09 8:45 AM) Sleep disturbances: Same (06/05/09 8:45 AM) Fatigue: Same (06/05/09 8:45 AM) Anxiety: Same (06/05/09 8:45 AM) Depression: Same (06/05/09 8:45 AM) Emotional ups and downs: Same (06/05/09 8:45 AM) Feelings of social isolation: Same (06/05/09 8:45 AM) Seizures: Same (06/05/09 8:45 AM) Fainting spells: Same (06/05/09 8:45 AM) Dizziness with standing: Same (06/05/09 8:45 AM) Joint pains Minimal body hair shaves every 2-3 days. Exact date of onset of symptoms is unknown Review of systems negative other than as stated above. Physical Exam: Blood pressure 139/84, pulse 86, resp. rate 14, height 1.727 m (5' 8"), weight 130.772 kg ( 288 lb 4.8 oz). Remainder of physical exam is unchanged from previous visit. LABS BMP,IGF-1, Free T4,Testosterone, vit d pending Assessment and discussion: Pt has changed administration technique for testosterone and growth hormone. Will reevaluat e levels. He reports worsening joint pain with a history of rheumatoid arthritis but no treatment c urrently. Recommend he return to rheumatology for reevaluation. Discussed storage and administration of growth hormone. I answered pt and family questions to their satisfaction. Plan 1. Testosterone level pending. Will change to Testim if level remains low. 2. Growth hormone. IGF-1 pending. Will increase dose if remains low. 3. Pt will RTC In 2 mths with any change in medication. 4. Follow up with PCP re rheumatology review. 5. MRI 03/20with CASING MATERIAL WEIGHER, RM labs I spent 40 mins in face to face evaluation of this patient of which over 50% was spent in corwin and coordination of care documented in this encounter Plan of Treatment +--------+---------+ + + + | Date | Type | Specialty | Care Team | Description | +--------+---------+ + + + | 08/15/ | Office | Cardiology | HernandezZuleika, | | | 2020 | Visit | | [address] [facility] [address] [facility] | | | | | | [address] | | | | | | [place], [place] | | | | | | [address] | | | | | | [phone] | | | | | | | | +--------+---------+ + + + documented as of this encounter Results BASIC METABOLIC SET (NA, K, CL, TCO2, BUN, CR, GLU, CA) (06/05/2009 9:56 AM PDT) + + + + + + | Component | Value | Ref Range | Performed | Pathologist | | | | | At | Signature | + + + + + + | GLUCOSE, | 151 (H) | 60 - 99 mg/dL | [facility] | | | PLASMA | | | DEPARTMENT | | | (LAB) | | | OF | | | | | | PATHOLOGY | | + + + + + + | BUN, PLASMA | 9 | 6 - 20 mg/dL | [facility] | | | (LAB) | | | DEPARTMENT | | | | | | OF | | | | | | PATHOLOGY | | + + + + + + | CREATININE | 0.64 (L) | 0.70 - 1.30 | [facility] [...] + + + + | POTASSIUM, | 4.1 | 3.4 - 5.0 | [facility] | | | PLASMA | | mmol/L | DEPARTMENT | | | (LAB) | | | OF | | | | | | PATHOLOGY | | + + + + + + | CHLORIDE, | 106 [...] + + + | TOTAL CO2, | 27 | 23 - 31 mmol/L | [facility] | | | PLASMA | | | DEPARTMENT | | | (LAB) | | | OF | | | | | | PATHOLOGY | | + + + + + + | EGFR | > 60 | >60 mL/min | [facility] | | | - | | | DEPARTMENT | | | MAL[place] | | | OF | | | [...] | + + + + + | [facility] | [address] | [place] [address] | | | PATHOLOGY | [address] | | | + + + + + INSULIN GROWTH FACTOR-1, SERUM (06/05/2009 9:56 AM PDT) + +-------+ + + + | Component | Value | Ref Range | Performed | Pathologist | | | | | At | Signature | + +-------+ + + + | IGF-1 | 156 | 115 - 307 ng/mL | | | + +-------+ + + + + + | Specimen | + + | Blood - Blood | + + + + + | Narrative | Performed At | + + + | [facility] | [place] | | [place] [address] | DEPARTMENT OF | | [place], [place] [address] | PATHOLOGY | + + + + + + + + | Performing | Address | City/State/Zipcode | Phone Number | | Organization | | | | + + + + + | [facility] | [address] | [place] [address] | | | PATHOLOGY | [address] | | | + + + + + TESTOSTERONE, SERUM (06/05/2009 9:56 AM PDT) + +-------+ + + + | Component | Value | Ref Range | Performed | Pathologist | | | | | At | Signature | + +-------+ + + + | TESTOSTERON | 650 | 175 - 781 ng/dl | | | | E, SERUM | | | | | + +-------+ + + + + + | Specimen | + + | Blood - Blood | + + + + + | Narrative | Performed At | + + + | [facility] [place] | [place] | | [facility] [address] [facility] | DEPARTMENT | | [place] [address] | PATHOLOGY | + + + + + + + + | Performing | Address | City/State/Zipcode | Phone Number | | Organization | | | | + + + + + | [facility] | [address] | [place] [address] | | | PATHOLOGY | [address] | | | + + + + + VITAMIN D, 25-HYDROXY, SERUM (06/05/2009 9:56 AM PDT) + + + + + + | Component | Value | Ref Range | Performed | Pathologist | | | | | At | Signature | + + + + + + | VITAMIN D | 12 (L)Comment: TEST | 30 - 80 ng/mL | | | | 25 HYDROXY | INFORMATION: VITAMIN D, | | | | | | 25-HYDROXYThis assay | | | | | | accurately quantifies | | | | | | the sum of vitamin | | | | | | D3,25-hydroxy and | | | | | | vitamin D2, 25-hydroxy. | | | | | | Deficiency: Less than | | | | | | 20 ng/mL Insufficiency: | | | | | | 20-29 ng/mL Optimum | | | | | | Level: 30-80 ng/mL | | | | | | Possible Toxicity: | | | | | | Greater than 80 | | | | | | ng/mLPerformed by [facility] | | | | | | Laboratories,[address] | | | | | | [facility], [place] [address] | | | | | | [phone] | | | | | | melissa, Therese Rush, | | | | | | , Lab. Director | | | | + + + + + + + + | Specimen | + + | Blood - Blood | + + + + + + + | Performing | Address | City/State/Zipcode | Phone Number | | Organization | | | | + + + + + | [facility] | [address] | [place] [address] | | | PATHOLOGY | [address] [...]
--- OUTSIDE RECORDS SUMMARY | ~2019-07-14 | XMS | Encounter Summary ---
Demographics + + + | Address | [address] | | | [place] [address] | + + + | Home Phone | | + + + | Preferred Language | Unknown | + + + | Marital Status | Single | + + + | Adventism Affiliation | NON | + + + | Race | or | + + + | Ethnic Group | Not or | + + + Author + + + | Author | [place] [facility] | + + + | Organization | [facility] | + + + | Address | Unknown | + + + | Phone | Unavailable | + + + Support + + +---------+ + | Name | Relationship | Address | Phone | + + +---------+ + | Alexandria Dixon | ECON | Unknown | | + + +---------+ + Care Team Providers + +------+ + | Care Barrel Inspector Tight Name | Role | Phone | + [...] Refill Request | | 2016 | | [facility] [address] | Cathie | (hydrocortisone 5 | | | | [place] Mailcode: CH8N | DNP,ANCHORMAN,[place] [address] | mg) | | | | [facility] | [address] [place], | | | | | [place]ann[place], | [place] [address] | | | | | [place] [address] | [phone] | | | | | [place], [place] | | | | | | [address] | | | | | | [phone] | | | +--------+--------+ + + + [...] | | 2020 | Visit | | [address] | | | | | | [address] | | | | | | [place], [place] | | | | | | [address] | | | | | | [phone] | | | | | | | [...]
--- OUTSIDE RECORDS SUMMARY | ~2019-07-14 | XMS | Encounter Summary ---
Demographics + + + | Address | [address] | | | [place] [address] | + + + | Home Phone [...] + + + | Author | [place] [employer] [facility] | + + + | Organization | [facility] | + + + | Address | Unknown | + + + | Phone | Unavailable | + + + Support + + +---------+ + | Name | Relationship | Address | Phone | + + +---------+ + | Alexandria Dixon | ECON | Unknown | | + + +---------+ + Care Team Providers + +------+ + | Care Trap Puller Name | Role | Phone | + [...] | adenoma | [address] | DNP,DYE BLENDER,[place] | | | | | (HCC) | [address] | [address] | | | | | Procedures | [place], | Ave | | | | | [place] | [place] [address] | [place], [place] | | | | | OFFICE/OUTPT | Phone: | [address] | | | | | | [phone] | Phone: | | | | | VISIT,EST,LE | Fax: | [phone] | | | | | [place] | [phone] | Fax: | | | | | OFFICE/OUTPT | | [phone] | | | | | | | [...] Description | +--------+---------+ + + + | 06/03/ | Office | Neurosurgery at | Donnie, | Pituitary adenoma | | 2012 | Visit | [facility] [address] | Cathie | ([facility]) (Primary Dx); | | | | [facility] Mailcode: [id number] | DNP,DYE BLENDER,[place] [address] | 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[address] [place], | deficiency ([facility]); | | | | and Healing, | [place] [address] | Diabetes insipidus | | | | Building [address] | [phone] | ([facility]); Hypogonadism | | | | [place], [place] | | male; Hypothyroid; | | | | [address] | | 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 ([facility]) | +--------+---------+ + + + Social History [...] + + + | Blood Pressure | 137/89 | 06/03/2013 12:31 PM | | | | | PDT | | + + + + + | Pulse | 82 | 06/03/2013 12:31 PM | | | | | PDT | | + + + + + | Temperature | 37 C (98.6 F) | 06/03/2013 12:31 PM | | | | | PDT | | + + + + + | Respiratory Rate | 20 | 06/03/2013 12:31 PM | | | | | PDT | | + + + + + | Oxygen Saturation | - | - | | + + + + + | Inhaled Oxygen | - | - | | | Concentration | | | | + + + + + | Weight | 134.5 kg (296 lb 8 | 06/03/2013 12:31 PM | | | | oz) | PDT | | + + + + + | Height | - | - | | + + + + + | Body Mass Index | 45.08 | 12/05/2011 1:01 PM | | | | | PDT | | + + + + + documented in this encounter Progress Notes Cathie Fields, SANIYA,DYE BLENDER,[place] - 06/03/2013 12:56 PM PDTReason for visit. Amairani Tyler retur [...] cardiac stent place 02/2011 after a n [place]. At this visit; Symptoms and Complaints: weight still labile. F/up with stress test last month. No cardiac concerns Doing well at new job. Again bitten by a spider again tx with abx Reports Using testsoterone irregularly. Sexual function ok fatigued back pain still under treatment no change. No injuries recenty B/p somewhat labile Did go a week without thyroid. No chest pain and no shortness of breath Continues to be tx with narcotics for back pain Uses CPAP more regularly- has new machine 80% of time No visual changes Mood stable. Headaches x 1-3 x/week /10 once a week now not helped by sleep. Sometimes keeps him awake Sleep better 5-7hrs a noc No polyuria or polydipsia no nocturia Wakes in the middle of the night Exact date of onset of symptoms is unknown Review of systems negative other than as stated above. Physical Exam: Blood pressure 137/89, pulse 82, temperature 37 C (98.6 F), temperature source Forehead , resp. rate 20, weight 134.492 kg (296 lb 8 oz). General: A pleasant man who looks [...] and discussion: Pt continues to be generally stable. He reports he has been better at taking his medicatio ns. He denies episodes of SYED or injuries requiring increased doses over the last 6 months but he has again a lesion on his right arm that he reports is a spider bite with centralized wound erythema but no drainage. He is currently treated with abx. He report better sexual function and has been using testosterone more regularly. No other indications of unreplace d endocrinopathies at this visit. I answered pt and partner's questions to [...] mths with labs TOMER MONTELONGO DNP, BECCA [place] Man [facility] [place] [address] [facility] [place] [address] documented in this encounter Plan of Treatment +--------+---------+ + + + | Date | Type | Specialty | Care Team | Description | +--------+---------+ + + + | 08/15/ | Office | Cardiology | Zuleika Hernandez, | | | 2020 | Visit | | [address] | | | | | | [address] | | | | | | [place], [place] | | | | | | [address] | | | | | | [phone] | | | | | | | | +--------+---------+ + + + documented as of this encounter Results TSH (06/03/2013 1:31 PM PDT) + + + + + + | Component | Value | Ref Range | Performed | Pathologist | | | | | At | Signature | + + + + + + | TSH | 0.53Comment: Normal TSH | 0.34 - 5.60 | [facility] | | | | value in : | mcIU/mL | [facility] - | | | | 0.5-2.5. uIU/ml | | [place] | | + + + + + + + + | Specimen | + + | Blood - Blood | + + + + + + + | Performing | Address | City/State/Zipcode | Phone Number | | Organization | | | | + + + + + | [facility] | [address] | [place] [address] | | | [place] | | | | + + + + + PROLACTIN, SERUM (06/03/2013 1:31 PM PDT) + +-------+ + + + [...] + | [facility] | [address] | [place] [address] | | | [place] | | | | + + + + + TESTOSTERONE, SERUM (06/03/2013 1:31 PM PDT) + +-------+ + + + | Component | Value | Ref Range | Performed | Pathologist | | | | | At | Signature | + +-------+ + + + | TESTOSTERON | 261 | 175 - 781 ng/dL | [facility] [...] + | [facility] | [address] | [place] [address] | | | [place] | | | | + + + + + INSULIN GROWTH FACTOR-1, SERUM (06/03/2013 1:31 PM PDT) + +---------+ + + + | Component | Value | Ref Range | Performed | Pathologist | | | | | At | Signature | + +---------+ + + + | IGF-1 | 102 (L) | 116 - 353 ng/mL | [...] + | [facility] | [address] | [place] [address] | | | [place] | | | | + + + + + FREE T4, SERUM (06/03/2013 1:31 PM PDT) + +-------+ + + + [...] + | [facility] | [address] | [place] [address] | | | [place] | | | | + + + + + BASIC METABOLIC SET (NA, K, CL, TCO2, BUN, CR, GLU, CA) (06/03/2013 1:31 PM PDT) + +---------+ + + + | Component | Value | Ref Range | Performed | Pathologist | | | | | At | Signature | + +---------+ + + + | GLUCOSE, | 148 (H) | 60 - 99 mg/dL | [...] | | | LABORATORY | | | SURINAMESE | | | SERVICES, | | | [...] +---------+ + + + | POTASSIUM, | 4.0 [...] +---------+ + + + | CALCIUM, | 9.2 [...] | + + + + + | [facility] | [address] | [place] [address] | | | SERVICES, VITALY | KIMO [...]
--- OUTSIDE RECORDS SUMMARY | ~2019-07-14 | XMS | Encounter Summary ---
Demographics + + + | Address | [address] | | | [place] [address] | + + + | Home Phone | | + + + | Preferred Language | Unknown | + + + | Marital Status | Single | + + + | Anabaptism Affiliation | NON | + + + | Race | or | + + + | Ethnic Group | Not or | + + + Author + + + | Author | [place] [employer] [facility] | + + + | Organization | [facility] | + + + | Address | Unknown | + + + | Phone | Unavailable | + + + Support + + +---------+ + | Name | Relationship | Address | Phone | + + +---------+ + | Alexandria Dixon | ECON | Unknown | | + + +---------+ + Care Team Providers + +------+ + | Care Principal Cyber Engineer Name | Role | Phone | + +------+ + | No Pcp Per Patient | PCP | Unavailable | + +------+ + Encounter Details +--------+ + + + + | Date | Type | Department | Care Team | Description | +--------+ + + + + | 05/02/ | Wood Cut Engraver | Neurosurgery at | [place], | Pituitary Adenoma | | 2007 | | [facility] [address] | [place], | ([facility]); 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Ave Mailcode: CH8N | DNP,WIND OPERATIONS MANAGER,[place] [address] | Hormone Deficiency | | | | [facility] | [address] [place], | ([facility]); 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, | [place] [address] | Insipidus (HCC); | | | | Building | [phone] | Hypogonadism Male; | | | | Floor [place], [place] | | Hypothyroid; Adrenal | | | | [address]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 (HCC) | | | | [phone] | | | +--------+ + + + [...] | | 2019 | Visit | | [address] | | | | | | [address] | | | | | | [place], [place] | | | | | | [address] | | | | | | [phone] | | | | | | | [...]
--- OUTSIDE RECORDS SUMMARY | ~2019-07-14 | XMS | Encounter Summary ---
Demographics + + + | Address | [address] | | | [place] [address] | + + + | Home Phone [...] + + + | Author | [place] [employer] [facility] | + + + | Organization | [facility] | + [...] Team Providers + +------+ + | Care Cobol Mainframe Developer Name | Role | Phone | + +------+ + | No Pcp Per Patient | PCP | Unavailable | + +------+ + Encounter Details +--------+ + + + + | Date | Type | Department | Care Team | Description | +--------+ + + + + | 12/23/ | Results | Neurosurgery [address] | Donnie, | | | 2005 | Only | [address] | Cathie | | | | | Abdoulaye Mailcode:[id number] | DNP,MARKING MACHINE OPERATOR,[place] [address] | | | | | [employer] | [address] [place], | | | | | [place], [place] | [place] [address] | | | | | [address] | [phone] | | | | | [phone] | | | +--------+ + + + [...] Rd | | | | | | [place], [place] | | | | | | [address] | | | | | | [phone] | | | | | | | | +--------+---------+ + + + documented as of this encounter Procedures + +--------+ + + + | Procedure Name | Priori | Date/Time | Associated Diagnosis | Comments | | | ty | | | | + +--------+ + + + | GROWTH HORMONE, | Routin | 12/23/2005 | | Results for this | | SERUM | e | 12:15 PM | | procedure are in the | | | | PDT | | results section. | + +--------+ + + + | GROWTH HORMONE, | Routin | 12/23/2005 | | Results for this | | SERUM | e | 11:45 AM | | procedure are in the | | | | PDT | | results section. | + +--------+ + + + | GROWTH HORMONE, | Routin | 12/23/2005 | | Results for this | | SERUM | e | 11:15 AM | | procedure are in the | | | | PDT | | results section. | + +--------+ + + + | GROWTH HORMONE, | Routin | 12/23/2005 | | Results for this | | SERUM | e | 10:45 AM | | procedure are in the | | | | PDT | | results section. | + +--------+ + + + | IGF-1 INSULIN GROWTH | Routin | 12/23/2005 | | Results for this | | FACTOR-1, SERUM | e | 10:15 AM | | procedure are in the | | SENDOUT | | PDT | | results section. | + +--------+ + + + | TESTOSTERONE, SERUM | Routin | 12/23/2005 | | Results for this | | | e | 10:15 AM | | procedure are in the | | | | PDT | | results section. | + +--------+ + + + | GROWTH HORMONE, | Routin | 12/23/2005 | | Results for this | | SERUM | e | 10:15 AM | | procedure are in the | | | | PDT | | results section. | + +--------+ + + + documented in this encounter Results GROWTH HORMONE, SERUM (12/23/2005 12:15 PM PDT) + + + + + + | Component | Value | Ref Range | Performed | Pathologist | | | | | At | Signature | + + + + + + | GROWTH | 0.1Comment: Test | <5.0 ng/mL | | | | HORMONE | performed by [facility] | | | | | | [facility] | | | | + + + + + + | TIME | +120 | Hrs:mins | | | + + + + + + + + | Specimen | + + | | + + + + + + + | Performing | Address | City/State/Zipcode | Phone Number | | Organization | | | | + + + + + | [facility] | [address] | [place] [address] | | | LABORATORY | | | | + + + + + GROWTH HORMONE, SERUM (12/23/2005 11:45 AM PDT) + + + + + + | Component | Value | Ref Range | Performed | Pathologist | | | | | At | Signature | + + + + + + | GROWTH | 0.1Comment: Test | <5.0 ng/mL | | | | HORMONE | performed by [facility] | | | | | | [facility] | | | | + + + + + + | TIME | 01:30 | Hrs:mins | | | + + + + + + + + | Specimen | + + | | + + + + + + + | Performing | Address | City/State/Zipcode | Phone Number | | Organization | | | | + + + + + | [facility] | [address] | [place] [address] | | | LABORATORY | | | | + + + + + GROWTH HORMONE, SERUM (12/23/2005 11:15 AM PDT) + + + + + + | Component | Value | Ref Range | Performed | Pathologist | | | | | At | Signature | + + + + + + | GROWTH | 0.3Comment: Test | <5.0 ng/mL | | | | HORMONE | performed by [facility] | | | | | | [facility]. | | | | + + + + + + | TIME | 01:00 | Hrs:mins | | | + + + + + + + + | Specimen | + + | | + + + + + + + | Performing | Address | City/State/Zipcode | Phone Number | | Organization | | | | + + + + + | [facility] | [address] | [place] [address] | | | LABORATORY | | | | + + + + + GROWTH HORMONE, SERUM (12/23/2005 10:45 AM PDT) + + + + + + | Component | Value | Ref Range | Performed | Pathologist | | | | | At | Signature | + + + + + + | GROWTH | 0.2Comment: Test | <5.0 ng/mL | | | | HORMONE | performed by [facility] | | | | | | [facility] | | | | + + + + + + | TIME | 00:30 | Hrs:mins | | | + + + + + + + + | Specimen | + + | | + + + + + + + | Performing | Address | City/State/Zipcode | Phone Number | | Organization | | | | + + + + + | [facility] | [address] | [place] [address] | | | LABORATORY | | | | + + + + + IGF-1, SERUM SENDOUT (12/23/2005 10:15 AM PDT) + + + + + + | Component | Value | Ref Range | Performed | Pathologist | | | | | At | Signature | + + + + + + | IGF-1, | 99 (L)Comment: Infant | 155 - 432 ng/mL | | | | SERUM | Reference Ranges: | | | | | SENDOUT | Term | | | | | | Pre-Term Age | | | | | | Range Range | | | | | | | | | | | | | | | | | | ---- 15-109 | | | | | | 21-93 2m | | | | | | 15-109 23-163 | | | | | | 4m 7-124 | | | | | | 23-171 6m | | | | | | 7-93 | | | | | | 15-132 12m 15-101 | | | | | | 15-179 | | | | | | Test performed by | | | | | | [facility]. | | | | + + + + + + + + | Specimen | + + | | + + + + + + + | Performing | Address | City/State/Zipcode | Phone Number | | Organization | | | | + + + + + | [facility] | [address] | [place], [place] | | | | | [address] | | + + + + + GROWTH HORMONE, SERUM (12/23/2005 10:15 AM PDT) + + + + + + | Component | Value | Ref Range | Performed | Pathologist | | | | | At | Signature | + + + + + + | GROWTH | < 0.1Comment: Test | <5.0 ng/mL | | | | HORMONE | performed by [facility] | | | | | | [facility]. | | | | + + + [...] + + + | [facility] | [address] | [place] [address] | | | LABORATORY | | | | + + + + + TESTOSTERONE (12/23/2005 10:15 AM PDT) + + + + + + | Component | Value | Ref Range | Performed | Pathologist | | | | | At | Signature | + + + + + + | TESTOSTERON | 1196 (H)Comment: Test | 241 - 950 ng/dl | | | | E, SERUM | performed by [facility] | | | | | | [facility] | | | | + + + + + + + + | Specimen | + + | | + + + + + + + | Performing | Address | City/State/Zipcode | Phone Number | | Organization | | | | + + + + + | [facility] | [address] | [place] [address] | | | LABORATORY | | | | + + + + + documented in this encounter Visit Diagnoses Not on filedocumented in this encounter"
--- OUTSIDE RECORDS SUMMARY | ~2019-07-14 | XMS | Encounter Summary ---
Demographics + + + | Address | [address] | | | [place] [address] | + + + | Home Phone [...] + + + | Author | [place] [employer] [facility] | + + + | Organization | [facility] | + + + | Address | Unknown | + + + | Phone | Unavailable | + + + Support + + +---------+ + | Name | Relationship | Address | Phone | + + +---------+ + | Alexandria Dixon | ECON | Unknown | | + + +---------+ + Care Team Providers + +------+ + | Care Coating Inspector Name | Role | Phone | + +------+ + | No Pcp Per Patient | PCP | Unavailable | + +------+ + Reason for Visit Benefits Check (Routine) +--------+--------+ + + + + | Status | Reason | Specialty | Diagnoses / | Referred By | Referred To | | | | | Procedures | Contact | Contact | +--------+--------+ + + + + | Closed | | Otolaryngolog | | Stephani, | Jenna, | | | | y | | MD Reuben | MD Misael | | | | | | [address] | [address] | | | | | | [place] | [address] | | | | | | [place] | Rd [place], | | | | | | [address] | [place] | | | | | | | [address] | | | | | | | Phone: | | | | | | | [phone] | | | | | | | Fax: | | | | | | | [phone] | +--------+--------+ + + + + Encounter Details +--------+---------+ + + + | Date | Type | Department | Care Team | Description | +--------+---------+ + + + | 10/31/ | Office | Otolaryngology | Misael West, | Pituitary Adenoma | | 2005 | Visit | Head and Neck | [address] | ([facility]) (Primary Dx) | | | | Surgery Services at | [address] | | | | | [place] [address] | [place], [place] | | | | | [address] | [address] | | | | | Mailcode: PV01 | [phone] | | | | | [facility] | | | | | | [place], [place] | | | | | | [address] | | | | | | [phone] | | | +--------+---------+ + + + [...] documented as of this encounter Progress Notes Epi Johnson, Kojo - 10/31/2005 3:24 PM PSTHere for post op visit from transphenoidal hyp ophesectomy approach in early September,. Able to breath well through nose. No bleedin g. No CSF leak. Mild soreness PE: awake and alert, NAD Anterior nose with slight bilateral crust - easily removed No septal perforation No CSF leak or bleeding Incision well healed. A/P: Doing well f/u prn documented in this encounter Plan of Treatment +--------+---------+ + + + | Date | Type | Specialty | Care Team | Description | +--------+---------+ + + + | 08/15/ | Office | Cardiology | Zuleika Hernandez, | | | 2019 | Visit | | [address] | | | | | | [address] | | | | | | [place], [place] | | | | | | [address] | | | | | | [phone] | | | | | | | | +--------+---------+ + + + documented as of this encounter Visit Diagnoses + + | Diagnosis | + + | Pituitary adenoma (HCC) - Primary Benign neoplasm of pituitary gland and | | craniopharyngeal duct (pouch) | + + documented in this encounter"
--- OUTSIDE RECORDS SUMMARY | ~2019-07-14 | XMS | Encounter Summary ---
Demographics + + + | Address | [address] | | | [place] [address] | + + + | Home Phone [...] + + + | Author | [place] [employer] [facility] | + + + | Organization | [facility] | + + + | Address | Unknown | + + + | Phone | Unavailable | + + + Support + + +---------+ + | Name | Relationship | Address | Phone | + + +---------+ + | Alexandria Dixon | ECON | Unknown | | + + +---------+ + Care Team Providers + +------+ + | Care Produce Weigher Name | Role | Phone | + [...] Description | +--------+--------+ + + + | 03/10/ | Refill | Neurosurgery at | Donnie, | Refill Request | | 2007 | | [facility] [address] | [place], | | | | | [place] Mailcode: [id number] | DNP,DIRECTOR OF GROUP SALES,[place] [address] | | | | | [facility] | [address] [place], | | | | | and [facility], | [place] [address] | | | | | Building [address] | [phone] | | | | | [place], [place] | | | | | | [address] | | | | | | [phone] | | | +--------+--------+ + + + [...] Rd | | | | | | [place], [place] | | | | | | [address] | | | | | | [phone] | | | | | | | | +--------+---------+ + + + documented as of this encounter Visit Diagnoses Not on filedocumented in this encounter"
--- OUTSIDE RECORDS SUMMARY | ~2019-07-14 | XMS | Encounter Summary ---
Demographics + + + | Address | [address] | | | [place] [address] | + + + | Home Phone | | + + + | Preferred Language | Unknown | + + + | Marital Status | Single | + + + | Rastafari Affiliation | NON | + + + | Race | or | + + + | Ethnic Group | Not or | + + + Author + + + | Author | [place] [employer] [facility] | + + + | Organization | [facility] [...] Team Providers + +------+ + | Care Casket Assembler Name | Role | Phone | + +------+ + | Bernardo Pan | PCP | | + +------+ + Encounter Details +--------+------+ + + + | Date | Type | Department | Care Team | Description | +--------+------+ + + + | 02/18/ | Lab | Laboratory at [facility] | | Pituitary adenoma | | 2018 | | [address] | | (FORMERLY [facility]); 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[place], [place]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 | | | | [address] | | (FORMERLY [facility]); Diabetes | | | | [phone] | | insipidus ([facility]); | | | | | | Hypogonadism male; | | | | | | Other specified | | | | | | hypothyroidism; | | | | | | Adrenal | | | | | | insufficiency (HCC); | | | | | | Vitamin D | | | | | | deficiency | +--------+------+ + + + Social History [...] | | 2019 | Visit | | [address] | | | | | | [address] | | | | | | [place], [place] | | | | | | [address] | | | | | | [phone] | | | | | | | | +--------+---------+ + + + documented as of this encounter Procedures + +--------+ + + + | Procedure Name | Priori | Date/Time | Associated Diagnosis | Comments | | | ty | | | | + +--------+ + + + | VITAMIN D, | Routin | 02/18/2018 | Pituitary adenoma | Results for this | | 25-HYDROXY, SERUM | e | 9:52 AM | (HCC) Growth | procedure are in the | | | | PDT | hormone deficiency | results section. 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) | | | | | | Hypogonadism male | | | | | | Other specified | | | | | | hypothyroidism | | | | | | Adrenal | | | | | | insufficiency (HCC) | | | | | | Vitamin D | | | | | | deficiency | | + +--------+ + + + | BASIC METABOLIC SET | Routin | 02/18/2018 | Pituitary adenoma | Results for this | | (NA, K, CL, TCO2, | e | 9:52 AM | (HCC) Growth | procedure are in the | | BUN, CR, GLU, CA) | | PDT | hormone deficiency | results section. 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) | | | | | | Hypogonadism male | | | | | | Other specified | | | | | | hypothyroidism | | | | | | Adrenal | | | | | | insufficiency (HCC) | | | | | | Vitamin D | | | | | | deficiency | | + +--------+ + + + | INSULIN GROWTH | Routin | 02/18/2018 | Pituitary adenoma | Results for this | | FACTOR-1, SERUM | e | 9:52 AM | (HCC) Growth | procedure are in the | | | | PDT | hormone deficiency | results section. 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) | | | | | | Hypogonadism male | | | | | | Other specified | | | | | | hypothyroidism | | | | | | Adrenal | | | | | | insufficiency (HCC) | | | | | | Vitamin D | | | | | | deficiency | | + +--------+ + + + | FREE T4 | Routin | 02/18/2018 | Pituitary adenoma | Results for this | | | e | 9:52 AM | (HCC) Growth | procedure are in the | | | | PDT | hormone deficiency | results section. 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) | | | | | | Hypogonadism male | | | | | | Other specified | | | | | | hypothyroidism | | | | | | Adrenal | | | | | | insufficiency (HCC) | | | | | | Vitamin D | | | | | | deficiency | | + +--------+ + + + | PROLACTIN | Routin | 02/18/2018 | Pituitary adenoma | Results for this | | | e | 9:52 AM | (HCC) Growth | procedure are in the | | | | PDT | hormone deficiency | results section. 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) | | | | | | Hypogonadism male | | | | | | Other specified | | | | | | hypothyroidism | | | | | | Adrenal | | | | | | insufficiency (HCC) | | | | | | Vitamin D | | | | | | deficiency | | + +--------+ + + + | TSH | Routin | 02/18/2018 | Pituitary adenoma | Results for this | | | e | 9:52 AM | (HCC) Growth | procedure are in the | | | | PDT | hormone deficiency | results section. 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) | | | | | | Hypogonadism male | | | | | | Other specified | | | | | | hypothyroidism | | | | | | Adrenal | | | | | | insufficiency (HCC) | | | | | | Vitamin D | | | | | | deficiency | | + +--------+ + + + documented in this encounter Results VITAMIN D, 25-HYDROXY, SERUM (02/18/2018 9:52 AM PDT) + + + + + + | Component | Value | Ref Range | Performed | Pathologist | | | | | At | Signature | + + + + + + | VITAMIN D | 26.2 (L) | 30 - 80 ng/mL | [...] 81-150 ng/ml Toxic: >150 ng/mL | | + + + + + + + + | Performing | Address | City/State/Zipcode | Phone Number | | Organization | | | | + + + + + | [facility] | [address] | [place] [address] | | | SERVICES, CORE | [address] | | | + + + + + TSH (02/18/2018 9:52 AM PDT) + +-------+ + + + | Component | Value | Ref Range | Performed | Pathologist | | | | | At | Signature | + +-------+ + + + | TSH | 0.97 | 0.39 - 4.17 | [facility] | [...] | + + + + + | [facility] | [address] | [place] [address] | | | [address] | [address] | | | + + + + + FREE T4 (02/18/2018 9:52 AM PDT) + +-------+ + + + [...] [facility] | [address] | [place] [address] | | | SERVICES, CORE | [address] | | | + + + + + PROLACTIN (02/18/2018 9:52 AM PDT) + +-------+ + + + | Component | Value | Ref Range | Performed | Pathologist | | | | | At | Signature | + +-------+ + + + | PROLACTIN | 6.2 | 2.1 - 17.7 | [facility] | | | | | ng/ml | LABORATORY | | | | | | SERVICES, | | | | | | CORE | | + +-------+ + + + + + | Specimen | + + | Blood - Blood | | (substance) | + + + + + | Narrative | Performed At | + + + | Test performed in [facility]. New reference range in effect | [facility] | | 2-18. | LABORATORY | | | SERVICES, CORE | + + + + + + + + | Performing | Address | City/State/Zipcode | Phone Number | | Organization | | | | + + + + + | [facility] | [address] | [place] [address] | | | SERVICES, CORE | [address] | | | + + + + + INSULIN GROWTH FACTOR-1, SERUM (02/18/2018 9:52 AM PDT) + + + + + + | Component | Value | Ref Range | Performed | Pathologist | | | | | At | Signature | + + + + + + | IGF-1 | 103 | 83 - 238 ng/mL | [facility] | | | | | | REG UNIV | | | | | | PTH - [facility] | | + + + + + + | IGF-1 | -1.5Comment: | | [facility] | | | Z-SCORE | INTERPRETIVE | | REG UNIV | | | | INFORMATION: IGF 1 | | PTH - [facility] | | | | Z-SCORE CALCULATION A Z | | | | | | score is the number of | | | | | | standard deviations a | | | | | | given result is above | | | | | | (positive score) or | | | | | | below (negative score) | | | | | | the age- and | | | | | | sex-adjusted population | | | | | | mean. Results that are | | | | | | within the IGF-1 | | | | | | reference interval will | | | | | | have a Z score between | | | | | | -2.0 and +2.0.Performed | | | | | | by R[address] | | | | | [address], [facility],[place] | | | | | | [address] | | | | | | [phone].[employer]. | | | | | | Ty torres MD, | | | | | | Lab. Director | | | | + + + + + + + + | Specimen | + + | Blood - Blood | | (substance) | + + + + + + + | Performing | Address | City/State/Zipcode | Phone Number | | Organization | | | | + + + + + | [facility] | [address] | [place], [place] | | | UNIV PTH - [facility] | | [phone] | | + + + + + BASIC METABOLIC SET (NA, K, CL, TCO2, BUN, CR, GLU, CA) (02/18/2018 9:52 AM PDT) + +---------+ + + + | Component | Value | Ref Range | Performed | Pathologist | | | | | At | Signature | + +---------+ + + + | GLUCOSE, | 130 (H) | 70 - 99 mg/dL | [facility] | | [...] +---------+ + + + | CREATININE | 1.07 | 0.70 - 1.30 | [facility] | | | PLASMA | | mg/dL | LABORATORY | | | (LAB) | | | SERVICES, | | | | | | CORE | | + +---------+ + + + | EGFR | >60 | >60 mL/min | [facility] | | | - | | | LABORATORY | | | SYRIAN | | | SERVICES, | | | | | | CORE | | + +---------+ + + + | EGFR NON | >60 | >60 mL/min | [facility] | | | -JASWINDER | | | LABORATORY | | | RICAN | | | SERVICES, | | | | | | CORE | | + +---------+ + + + | SODIUM, | 141 | 136 - 145 | [facility] | [...] +---------+ + + + | CALCIUM, | 8.8 | 8.6 - 10.2 | [facility] | [...] Rapidly changing kidney | | | function - Amputees, paraplegics, or other muscle-wasting diseses | | + + + + + + + + | Performing | Address | City/State/Zipcode | Phone Number | | Organization | | | | + + + + + | [facility] | [address] | [place] [address] | | | [address] | [address] [...] Other testicular hypofunction | + + | Other specified hypothyroidism | + + | Adrenal insufficiency (HCC) Glucocorticoid deficiency | + + | Vitamin D deficiency | + + documented in this encounter"
--- OUTSIDE RECORDS SUMMARY | ~2019-07-14 | XMS | Encounter Summary ---
Demographics + + + | Address | [address] | | | [place] [address] | + + + | Home Phone [...] + + + | Author | [place] [employer] [facility] | + + + | Organization | [facility] | + + + | Address | Unknown | + + + | Phone | Unavailable | + + + Support + + +---------+ + | Name | Relationship | Address | Phone | + + +---------+ + | Alexandria Dixon | ECON | Unknown | | + + +---------+ + Care Team Providers + +------+ + | Care Structural Iron Worker Name | Role | Phone | + +------+ + | No Pcp Per Patient | PCP | Unavailable | + +------+ + Reason for Visit + + + | Reason | Comments | + + + | Follow-up in | Still has headache level 7 pain mostly to right side | | outpatient clinic | | + + + Encounter Details +--------+---------+ + + + | Date | Type | Department | Care Team | Description | +--------+---------+ + + + | 05/08/ | Office | Neurosurgery [address] | Jaylin Hou, | Sphenoid Sinusitis | | 2005 | Visit | [address] | [place] [address] | (Primary Dx); | | | | Rd Mailcode:OP14B | [address] | Chronic Sphenoidal | | | | [facility] | [place] [address] | Sinusitis | | | | [place], [place] | | | | | | [address] | | | | | | [phone] | | | +--------+---------+ + + + [...] + + documented as of this encounter Patient Instructions Patient Instructions 05/08/2006 1:45 PM PDT Follow up appt in ENT 05/15/06 @ 2:30pm Follow-up in Neurosurgery October 14 documented in this encounter Progress Notes Jaylin Hou - 05/08/2006 3:15 PM PDTSUBJECTIVE: 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 At last visit, pt was experie ncing sinus pain. Had eval by ENT and was placed on antibx. Pt completed course but pain per sists. Mostly on right side behind eye. Up to 7/10 on pain scale. Continues to take vicodin. Also experiencing increased sxs of DI as well as decreased energy at the end of the day. 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 No other complaints. OBJECTIVE: WDWN male, NAD, alert, appropriate. Neuro - CNII-XII intact, no dysmetria. ASSESSMENT: Post TPH with continued headaches PLAN: Advised on findings and recommendations Reassured pt Appt with ENT sinus specialist made for 05/15/06 @1400 Restart Avelox per ENT F/U in [facility] 6 mos Pt agreed with the above plan and will f/u as instructed. documented in this encou nter Plan of Treatment +--------+---------+ + + + | Date | Type | Specialty | Care Team | Description | +--------+---------+ + + + | 08/15/ | Office | Cardiology | Zuleika Hernandez, | | | 2019 | Visit | | [address] | | | | | | [address] | | | | | | [place], [place] | | | | | | [address] | | | | | | [phone] | | | | | | | | +--------+---------+ + + + documented as of this encounter Visit Diagnoses + + | Diagnosis | + + | Sphenoid sinusitis - Primary Chronic sphenoidal sinusitis | + + | Chronic sphenoidal sinusitis | + + documented in this encounter"
--- OUTSIDE RECORDS SUMMARY | ~2019-07-14 | XMS | Encounter Summary ---
Demographics + + + | Address | [address] | | | [place] [address] | + + + | Home Phone | | + + + | Preferred Language | Unknown | + + + | Marital Status | Single | + + + | Oriental Orthodox Affiliation | NON | + + + | Race | or | + + + | Ethnic Group | Not or | + + + Author + + + | Author | [employer] [place] [employer] [facility] | + + + | Organization | [facility] | + + + | Address | Unknown | + + + | Phone | Unavailable | + + + Support + + +---------+ + | Name | Relationship | Address | Phone | + + +---------+ + | Alexandria Dixon | ECON | Unknown | | + + +---------+ + Care Team Providers + +------+ + | Care Mandrel Press Hand Name | Role | Phone | + [...] Description | +--------+--------+ + + + | 10/30/ | Refill | Neurosurgery [address] | Jaclyn Crawford, | Refill Request | | 2005 | | [address] | [address] | | | | | [address] Mailcode:OP14B | [address] | | | | | [employer] | [place], [place] | | | | | [place], [place] | [address] | | | | | [address] | [phone] | | | | | [phone] | | | +--------+--------+ + + + [...] Rd | | | | | | [place], [place] | | | | | | [address] | | | | | | [phone] | | | | | | | | +--------+---------+ + + + documented as of this encounter Visit Diagnoses Not on filedocumented in this encounter"
--- OUTSIDE RECORDS SUMMARY | ~2019-07-14 | XMS | Encounter Summary ---
Demographics + + + | Address | [address] | | | [place] [address] | + + + | Home Phone [...] + + + | Author | [employer] [facility] | + + + | Organization | [facility] | + + + | Address | Unknown | + + + | Phone | Unavailable | + + + Support + + +---------+ + | Name | Relationship | Address | Phone | + + +---------+ + | Alexandria Dixon | ECON | Unknown | | + + +---------+ + Care Team Providers + +------+ + | Care Genetic Coordinator Name | Role | Phone | + +------+ + | No Pcp Per Patient | PCP | Unavailable | + +------+ + Encounter Details +--------+---------+ + + + | Date | Type | Department | Care Team | Description | +--------+---------+ + + + | 05/08/ | Office | Endocrinology | Jaclyn Crawford, | 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 | Visit | Pituitary Disease | [address] | Pituitary Gland and | | | | Clinic [address] | [address] | Craniopharyngeal | | | | [address] | [place], [place] | Duct (Pouch) (HCC) | | | | Mailcode: [id number] | [address] | (Primary Dx) | | | | [facility] | [phone] | | | | | [address] | | | | | | [place], [place] | | | | | | [address] | | | | | | [phone] | | | +--------+---------+ + + + [...] documented as of this encounter Progress Notes Jaclyn Crawford - 05/08/2006 9:32 PM PDTFormatting of this note might be different from lianne bello original. 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 At this visit, he notes he has persistent frontal headache, despite the antibiotic treatmen t that he took for almost 1 mo. Still 7/10, behing R eye, requiring Vicodin.Not positional, and they are mildly changing with Advil or Excedrin, and then they reappear. The GH now in his pharmacy is stable, and because his IGF1 was extremely low, I am going to increase the dose. Main issue beside headache is related to increasing urinary output most of the days, mid-da ys.He is already on high dose DDAVP. He has increased thirst around the afternoon and also m ild increased urination despite the fact that he is taking the DDAVP as prescribed. He didn't followed up as instructed with primary care doctor for increased blood sugars an d I don't know if any of the polyuria is related to high BS. Medications: Testosterone 5 mg daily, levothyroxine 175 mcg daily, hydrocortisone 20 mg q.a.m. and 10 mg q.p.m., DDAVP 0.4 mg nightly and 0.2 mg in the morning. Physical Examination: unchanged Laboratory Data: Component Reference Range 04/03/2006 05/08/2006 GLUCOSE (LAB) 65-110 mg/dL 145 (H) BUN 6-20 mg/dL 12 CREATININE 0.7-1.3 mg/dL 0.7 SODIUM (LAB) 136-145 mmol/L 140 POTASSIUM (LAB) 3.5-5.1 mmol/L 4.0 CHLORIDE 98-107 mmol/L 106 TOTAL CO2 23-29 mmol/L 27 CALCIUM (LAB) 8.5-10.5 mg/dL 9.5 IGF-1 117-329 ng/mL 71 (L) Assessment and Plan: Amairani Tyler is a young pleasant gentleman with a history of macroadeno ma status post surgery in September 2005 with panhypopituitarism and diabetes insipidus , fully replaced. 1 His main complaint at this visit is polyuria in midafternoon. I will increase the dose of DDAVP in am to 0.3, continue 0.4 in pm.Recheck BMP next week. Advised to have his possible DM2 checked TARUN. 2 We spent some time discussing again the growth hormone replacement treatment risks and benefits, and how we are going to titrate th e growth hormone. His mother had multiple questions which I answered to their satisfaction. 3 Hypogonadism, continue current dose 4 Followup with primary care physician. The patient will return to the primary care for followup of hypertension and also for follo wup of hyperglycemia, possible diabetes mellitus. 5 Repeat MRI brain in 6 mo, if any growth, I will probably put on hold GH replacement. I spent 40 minutes in evaluation of this patient with more than 50% in coordination of care and counseling. ADDENDUM Labs results reviewed and communicated to the patient by phone. Component Reference Range 05/08/2006 GLUCOSE (LAB) 65-110 mg/dL 145 (H) BUN 6-20 mg/dL 12 CREATININE 0.7-1.3 mg/dL 0.7 SODIUM (LAB) 136-145 mmol/L 140 POTASSIUM (LAB) 3.5-5.1 mmol/L 4.0 CHLORIDE 98-107 mmol/L 106 TOTAL CO2 23-29 mmol/L 27 CALCIUM (LAB) 8.5-10.5 mg/dL 9.5 IGF-1 117-329 ng/mL 117 I answered all questions to apparent satisfaction and patient verbalized understanding. Briefly,the assesement is the following: Patient needs evaluation as discussed by PCP for high BS. Continue present dose of Genotropin as I increased it last week. F/u in 2 mo for IGF1 and further titration of GH. ACTION ITEMS Short term follow-up: Patient will return to pituitary clinic in approximately two months to see Jaclyn Crawford MD. At that time no stimulation test will be performed. Other labora tory tests will include a pituitary panel. A pituitary MRI will not be performed. documented in this encoun ter Plan of Treatment +--------+---------+ + + + | Date | Type | Specialty | Care Team | Description | +--------+---------+ + + + | 08/15/ | Office | Cardiology | Zuleika Hernandez, | | | 2019 | Visit | | [address] | | | | | | [address] | | | | | | [place], [place] | | | | | | [address] | | | | | | [phone] | | | | | | | | +--------+---------+ + + + documented as of this encounter Results BASIC METABOLIC SET (05/15/2006 2:37 PM PDT) + +---------+ + + + | Component | Value | Ref Range | Performed | Pathologist | | | | | At | Signature | + +---------+ + + + | GLUCOSE, | 144 (H) | 65 - 110 mg/dL | [...] +---------+ + + + | CREATININE | 0.7 [...] +---------+ + + + | POTASSIUM, | 3.7 | 3.5 - 5.1 | [facility] | | | PLASMA | | mmol/L | DEPARTMENT | | | (LAB) | | | OF | | | | | | PATHOLOGY | | + +---------+ + + + | CHLORIDE, | 100 | 98 - 107 mmol/L | [facility] | | | PLASMA | | | DEPARTMENT | | | (LAB) | | | OF | | | | | | PATHOLOGY | | + +---------+ + + + | TOTAL CO2, | 29 | 23 - 29 mmol/L | [facility] | | | PLASMA | | | DEPARTMENT | | | (LAB) | | | OF | | | | | | PATHOLOGY | | + +---------+ + + + | CALCIUM, | 9.4 | 8.5 - 10.5 | [facility] | | | PLASMA | | mg/dL | DEPARTMENT | | | (LAB) | | | OF | | | | | | PATHOLOGY | | + +---------+ + + + + + | Specimen | + + | | + + + + + | Narrative | Performed At | + + + | [id number] Estimated GFR > 60 mL/min/1.73 sq m if non- | [facility] | | [id number] Estimated GFR > 60 mL/min/1.73 sq m [...] | + + + + + | [facility] | [address] | [place] [address] | | | PATHOLOGY | [address] | | | + + + + + | [facility] | [address] [place] [address] | [place] [address] | | | PATHOLOGY | [address] | | | + + + + + BASIC METABOLIC SET (05/08/2006 3:30 PM PDT) + +---------+ + + + | Component | Value | Ref Range | Performed | Pathologist | | | | | At | Signature | + +---------+ + + + | GLUCOSE, | 145 (H) | 65 - 110 mg/dL | [...] +---------+ + + + | CREATININE | 0.7 [...] + + | POTASSIUM, | 4.0 | 3.5 - 5.1 | [facility] | | | PLASMA | | mmol/L | DEPARTMENT | | | (LAB) | | | OF | | | | | | PATHOLOGY | | + +---------+ + + + | CHLORIDE, | 106 | 98 - 107 mmol/L | [facility] | | | PLASMA | | | DEPARTMENT | | | (LAB) | | | OF | | | | | | PATHOLOGY | | + +---------+ + + + | TOTAL CO2, | 27 | 23 - 29 mmol/L | [facility] | | | PLASMA | | | DEPARTMENT | | | (LAB) | | | OF | | | | | | PATHOLOGY | | + +---------+ + + + | CALCIUM, | 9.5 | 8.5 - 10.5 | [facility] | | | PLASMA | | mg/dL | DEPARTMENT | | | (LAB) | | | OF | | | | | | PATHOLOGY | | + +---------+ + + + + + | Specimen | + + | | + + + + + | Narrative | Performed At | + + + | [id number] Estimated GFR > 60 mL/min/1.73 sq m if non- | [facility] | | [id number] Estimated GFR > 60 mL/min/1.73 sq m [...] | + + + + + | [facility] | [address] | [place] [address] | | | PATHOLOGY | [address] | | | + + + + + | [facility] | [address] | [place] [address] | | | PATHOLOGY | [address] | | | + + + + + IGF-1 (05/08/2006 3:30 PM PDT) + + + + + + | Component | Value | Ref Range | Performed | Pathologist | | | | | At | Signature | + + + + + + | IGF-1 | 117Comment: Test | 117 - 329 ng/mL | [...] + + + | [facility] | [address] | [place] [address] | | | LABORATORY | | | [...]
--- OUTSIDE RECORDS SUMMARY | ~2019-07-14 | XMS | Encounter Summary ---
Demographics + + + | Address | [address] | | | [place] [address] | + + + | Home Phone [...] + + | Author | [place] [employer] [facility] | + + + | Organization | Replaced By [facility] | + [...] Team Providers + +------+ + | Care Geomorphology Teacher Name | Role | Phone | + +------+ + | No Pcp Per Patient | PCP | Unavailable | + +------+ + Encounter Details +--------+------+ + + + | Date | Type | Department | Care Team | Description | +--------+------+ + + + | 11/30/ | Lab | Laboratory at [facility] | | Pituitary adenoma | | 2009 | | [address] | | ([facility]); 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[place], [place]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 | | | | [address] | | ([facility]); 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 ([facility]); | | | | | | Hypogonadism [...] | | 2019 | Visit | | [address] | | | | | | [address] | | | | | | [place], [place] | | | | | | [address] | | | | | | [phone] | | | | | | | | +--------+---------+ + + + documented as of this encounter Procedures + +--------+ + + + | Procedure Name | Priori | Date/Time | Associated Diagnosis | Comments | | | ty | | | | + +--------+ + + + | VITAMIN D, | Routin | 11/30/2009 | Pituitary adenoma | Results for this | | 25-HYDROXY, SERUM | e | 2:31 PM | (HCC) Growth | procedure are [...] | BASIC METABOLIC SET | Routin | 11/30/2009 | Pituitary adenoma | Results for this | | (NA, K, CL, TCO2, | e | 2:31 PM | (HCC) Growth | procedure are [...] + | INSULIN GROWTH | Routin | 11/30/2009 | Pituitary adenoma | Results for this | | FACTOR-1, SERUM | e | 2:31 PM | (HCC) Growth | procedure are [...] + | FREE T4 | Routin | 11/30/2009 | Pituitary adenoma | Results for this | | | e | 2:31 PM | (HCC) Growth | procedure are [...] + + | PROLACTIN | Routin | 11/30/2009 | Pituitary adenoma | Results for this | | | e | 2:31 PM | (HCC) Growth | procedure are [...] + | TESTOSTERONE, SERUM | Routin | 11/30/2009 | Pituitary adenoma | Results for this | | | e | 2:31 PM | (HCC) Growth | procedure are [...] | | | | | | 20 ng/mL(Garcia CL et | | | | | | [...] [facility] | [address] | [place], [place] | | | [facility] | | [address] | | + + + + + [...] [place] | [place] | | [place] [address] | REGIONAL | | [place] [address] | LABORATORY | + + + + + + + + | Performing | Address | City/State/Zipcode | Phone Number | | Organization | | | | + + + + + | [facility] | [address] | [place] [address] | | | LABORATORY | | | [...] + + + | [facility] [facility] [place] | [place] | | [place] [address] | REGIONAL | | [place] [address] | LABORATORY | + + + + + + + + | Performing | Address | City/State/Zipcode | Phone Number | | Organization | | | | + + + + + | [facility] | [address] | [place] [address] | | | LABORATORY | | | [...] Way Lab) [place] | [place] | | [place] [address] | REGIONAL | | [place] [address] | LABORATORY | + + + + + + + + | Performing | Address | City/State/Zipcode | Phone Number | | Organization | | | | + + + + + | [facility] | [address] | [place] [address] | | | LABORATORY | | | [...] effective 12/26/08 | [place] | | [facility] [facility] [place] | [facility] | | [facility] [place] [address] | LABORATORY | | [place] [address] | | + + + + + + + + | Performing | Address | City/State/Zipcode | Phone Number | | Organization | | | | + + + + + | [facility] | [address] | [place] [address] | | | LABORATORY | | | [...] | | | DEPARTMENT | | | SPANISH | | | OF | | | [...] + + + + | [facility] | [address] | [place] [address] | | | PATHOLOGY | [address] [...]
--- OUTSIDE RECORDS SUMMARY | ~2019-07-14 | XMS | Encounter Summary ---
Demographics + + + | Address | [address] | | | [place] [address] | + + + | Home Phone | | + + + | Preferred Language | Unknown | + + + | Marital Status | Single | + + + | Denominational Affiliation | Unknown | + + + | Race | Unknown | + + + | Ethnic Group | Unknown | + + + Author + + + | Author | [facility] | | | and [place] | + + + | Organization | [facility] | | | and [place] [...] Team Providers + +------+ + | Care Rectifying Attendant Name | Role | Phone | + +------+ + | Jinny Bergeron MD | PCP | | + +------+ + Encounter Details +--------+ + + + + | Date | Type | Department | Care Team | Description | +--------+ + + + + | 11/07/ | Documentati | [facility] | Sumanth Champion PA | | | 2017 | on | SLEEP DISORDER [address] | [address] | | | | | [address] | [place] | | | | | [place] [address] | [address] | | | | | [phone] | | | +--------+ + + + [...] documented as of this encounter Progress Notes Sumanth Champion PA - 11/07/2016 11:55 AM Chris was last seen in our office on 02/18/2016. He did not cancel or show up for his appointment on 11/07/2016. This was his third no-show ( first consecutive). He was struggling with his CPAP compliance at his last appointment. He has moderate apnea with significant oxygen desaturation. We will attempt to reschedule this appointment. Sumanth Champion PA-C docume nted in this encounter Plan of [...] [place] | | | | | | [address] | | | | | | | | +--------+---------+ + + + documented as of this encounter Visit Diagnoses Not on filedocumented in this encounter"
--- OUTSIDE RECORDS SUMMARY | ~2019-07-14 | XMS | Encounter Summary ---
Demographics + + + | Address | [address] | | | [place] [address] | + + + | Home Phone | | + + + | Preferred Language | Unknown | + + + | Marital Status | Single | + + + | Sikhism Affiliation | NON | + + + | Race | or | + + + | Ethnic Group | Not or | + + + Author + + + | Author | [place] [employer] [facility] | + + + | Organization | [facility] | + + + | Address | Unknown | + + + | Phone | Unavailable | + + + Support + + +---------+ + | Name | Relationship | Address | Phone | + + +---------+ + | Alexandria Dixon | ECON | Unknown | | + + +---------+ + Care Team Providers + +------+ + | Care Security Assurance Analyst Name | Role | Phone | [...] + + + | Closed | | Bone | Diagnoses | Yvette | Vic Bne | | | | Densitometry | Pituitary | MD Jaclyn | [facility] | | | | | adenoma | [address] | [address] | | | | | (HCC) | [address] | [address] | | | | | Growth | Rd | Mailcode: | | | | | hormone | [place], [place] | [facility] | | | | | deficiency | [address] | for Health | | | | | ([facility]) | Phone: | and Healing, | | | | | Diabetes | [phone] | [address] | | | | | insipidus | Fax: | [place], [place] | | | | | ([facility]) | [phone] | [address] | | | | | Hypothyroid | | Phone: | | | | | Adrenal | | [phone] | | | | | insufficienc | | Fax: | | | | | y ([facility]) | | [phone] | | | | | Procedures | | | | | | | CONSULT TO | | | | | | | BONE | | | | | | | DENSITOMETRY | | | +--------+--------+ + + + + Encounter Details +--------+ + + + + | Date | Type | Department | Care Team | Description | +--------+ + + + + | 10/30/ | Package Sealer Machine | Neurosurgery at | Jaclyn Crawford, | Pituitary adenoma | | 2010 | | [address] | [address] | ([facility]); 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Ave Mailcode: CH8N | [address] | hormone deficiency | | | | [facility] | [place], [place] | ([facility]); 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, | [address] | insipidus ([facility]); | | | | Building | [phone] | Hypothyroid; Adrenal | | | | [place], [place] | | insufficiency ([facility]) | | | | [address] | | | | | | [phone] | | | +--------+ + + + [...] | | 2019 | Visit | | [address] | | | | | | [address] | | | | | | [place], [place] | | | | | | [address] | | | | | | [phone] | | | | | | | [...]
--- OUTSIDE RECORDS SUMMARY | ~2019-07-14 | XMS | Encounter Summary ---
Demographics + + + | Address | [address] | | | [place] [address] | + + + | Home Phone [...] + + + | Author | [place] [employer] [facility] | + + + | Organization | [facility] | + + + | Address | Unknown | + + + | Phone | Unavailable | + + + Support + + +---------+ + | Name | Relationship | Address | Phone | + + +---------+ + | Alexandria Dixon | ECON | Unknown | | + + +---------+ + Care Team Providers + +------+ + | Care Comb Winder Name | Role | Phone | + +------+ + | No Pcp Per Patient | PCP | Unavailable | + +------+ + Encounter Details +--------+ + + + + | Date | Type | Department | Care Team | Description | +--------+ + + + + | 04/13/ | MyChart | Neurosurgery at | Donnie, | RE: Test | | 2008 | Encounter | [facility] [address] | Cathie | | | | | [place] Mailcode: CH8N | DNP,LINE PATROLLER,[place] [address] | | | | | [facility] | [address] [place], | | | | | and Healing, | [place] [address] | | | | | Building | [phone] | | | | | Floor [place], [place] | | | | | | [address] | | | | | | [phone] | | | +--------+ + + + [...] Rd | | | | | | [place], [place] | | | | | | [address] | | | | | | [phone] | | | | | | | | +--------+---------+ + + + documented as of this encounter Visit Diagnoses Not on filedocumented in this encounter"
--- OUTSIDE RECORDS SUMMARY | ~2019-07-14 | XMS | Encounter Summary ---
Demographics + + + | Address | [address] | | | [place] [address] | + + + | Home Phone [...] + + | Author | [place] [employer] [facility] | + + + | Organization | [facility] | + + + | Address | Unknown | + + + | Phone | Unavailable | + + + Support + + +---------+ + | Name | Relationship | Address | Phone | + + +---------+ + | Alexandria Dixon | ECON | Unknown | | + + +---------+ + Care Team Providers + +------+ + | Care Emergency Medical Tech Name | Role | Phone | + +------+ + | Bernardo Pan | PCP | | + +------+ + Reason for Visit + + + | Reason | Comments | + + + | Car Gen Record | Car GEN checklist | | Review | | + + + Encounter Details +--------+ + + + + | Date | Type | Department | Care Team | Description | +--------+ + + + + | 08/22/ | Abstract | Cardiology General | Unknown . | Car Gen Record | | 2017 | | at [facility] [address] | | Review (Car GEN | | | | [address] Mailcode: | | checklist) | | | | [address] | | | | | | Health and Healing, | | | | | | [facility] | | | | | | floor [place], [place] | | | | | | [address] | | | | | | [phone] | | | +--------+ + + + [...] documented as of this encounter Progress Notes Sammie Wang - 08/22/2016 9:29 AM PSTFormatting of this note might be different from the [facility] qian. General Cardiology New Patient Record Check List Procedure Where/Date Date requested Report received? Y/N, Where? Imaging received? CD/ IMPAX/Not Available Comments Referring Provider - notes Ashish Meyer PA-C Internal Referral Last EKG with original tracings Last Echo with images and report [facility]-05/22/16 [facility]-10/03/14 [facility]-02/20/11 08/29/16 08/29/16 08/29/16 [facility] Care EW Care EW Care EW [facility] Impax CD sent to [employer] 10/24 CD sent to [employer] 10/24 Last Stress Test with images and report felipe-10/03/14 (Nuc Med) 08/29/16 Care EW CD sent to [employer] 10/24 Last Cardiac Catheterization - images and report Lyn-07/02/16 [facility]-11/30/14 [facility]-02/19/11 08/29/16 08/29/16 08/29/16 Care EW Care EW Care EW CD sent to film library 10/24 CD sent to film library 10/24 CD sent to film library 10/24 Last Holter or Event monitor - report none Labs (BMP, Lipids, TSH, Hemoglobin A1C in last 6 months) [facility] 08/29/16 Y es, attached below N/A Last PPM/ICD Interrogation report none Last Cardiac MRI report/images if avail none Cardiac CTA - report and images if available [facility] [place] Patient Preferred Lab Additional Comments: 09/01/16- [facility] states they will be mailing whatever images are sosa ilable documented in this encoun ter Plan of Treatment +--------+---------+ + + + | Date | Type | Specialty | Care Team | Description | +--------+---------+ + + + | 08/15/ | Office | Cardiology | Zuleika Hernandez, | | | 2019 | Visit | | [address] | | | | | | [address] | | | | | | [place], [place] | | | | | | [address] | | | | | | [phone] | | | | | | | | +--------+---------+ + + + documented as of this encounter Visit Diagnoses Not on filedocumented in this encounter"
--- OUTSIDE RECORDS SUMMARY | ~2019-07-14 | XMS | Encounter Summary ---
Demographics + + + | Address | [address] | | | [place] [address] | + + + | Home Phone [...] + + + | Author | [place] [email or web address] [facility] | + + + | Organization | [facility] | + + + | Address | Unknown | + + + | Phone | Unavailable | + + + Support + + +---------+ + | Name | Relationship | Address | Phone | + + +---------+ + | Alexandria Dixon | ECON | Unknown | | + + +---------+ + Care Team Providers + +------+ + | Care Insulation Board Calender Operator Name | Role | Phone | + +------+ + | Jinny Bergeron MD | PCP | | + +------+ + Reason for Referral Consultation (Routine) + +--------+ + + + + | Status | Reason | Specialty | Diagnoses / | Referred By | Referred To | | | | | Procedures | Contact | Contact | + +--------+ + + + + | Pending | | Cardiac | Diagnoses | Donnie, | Lauren, | | Review | | Surgery | Mitral | Cathie, | Koffi Galarza, | | | | | leaflet | DNP,ELECTROMAGNET CRANE OPERATOR,[place] | [address] | | | | | abnormality | [address] | [address] | | | | | Procedures | Ave | [place] | | | | | CONSULT TO | [place], [place] | [place], [place] | | | | | SURGERY - | [address] | [address] | | | | | CARDIOTHORAC | Phone: | Phone: | | | | | IC | [phone] | [phone] | | | | | | Fax: | Fax: | | | | | | [phone] | [phone] | + +--------+ + + + + Encounter Details +--------+ + + + + | Date | Type | Department | Care Team | Description | +--------+ + + + + | 05/30/ | MyChart | Neurosurgery at | Donnie, | RE: Need to talk | | 2016 | Encounter | [facility] [address] | Cathie, | | | | | Ave Mailcode: CH8N | DNP,ELECTROMAGNET CRANE OPERATOR,[place] [address] | | | | | [facility] | [address] [place], | | | | | and Healing, | [place] [address] | | | | | Building 1 | [phone] | | | | | [place], [place] | | | | | | [address] | | | | | | [phone] | | | +--------+ + + + [...] Rd | | | | | | [place], [place] | | | | | | [address] | | | | | | [phone] | | | | | | | | +--------+---------+ + + + documented as of this encounter Visit Diagnoses + + | Diagnosis | + + | Mitral leaflet abnormality - Primary | + + documented in this encounter"
--- OUTSIDE RECORDS SUMMARY | ~2019-07-14 | XMS | Encounter Summary ---
Demographics + + + | Address | [address] | | | [place] [address] | + + + | Home Phone [...] + + + | Author | [place] [employer] [facility] | + + + | Organization | [facility] | + + + | Address | Unknown | + + + | Phone | Unavailable | + + + Support + + +---------+ + | Name | Relationship | Address | Phone | + + +---------+ + | Alexandria Dixon | ECON | Unknown | | + + +---------+ + Care Team Providers + +------+ + | Care Flag Signaler Name | Role | Phone | + +------+ + | Priscilla Ramírez PA-C | PCP | | + +------+ + Encounter Details +--------+ + + + + | Date | Type | Department | Care Team | Description | +--------+ + + + + | 01/29/ | MyChart | Cardiology General | | Please call to | | 2017 | Encounter | at [facility] [address] | | reschedule your | | | | [address] Mailcode: | | Cardiology | | | | [address] | | appointment | | | | Health and Healing, | | | | | | Building | | | | | | floor [place], [place] | | | | | | [address] | | | | | | [phone] | | | +--------+ + + + [...] 2019 | Visit | | [address] | | | | | | [address] | | | | | | [place], [place] | | | | | | [address] | | | | | | [phone] | | | | | | | | +--------+---------+ + + + documented as of this encounter Visit Diagnoses Not on filedocumented in this encounter"
--- OUTSIDE RECORDS SUMMARY | ~2019-07-14 | XMS | Encounter Summary ---
Demographics + + + | Address | [address] | | | [place] [address] | + + + | Home Phone | | + + + | Preferred Language | Unknown | + + + | Marital Status | Single | + + + | Anglican Affiliation | NON | + + + | Race | or | + + + | Ethnic Group | Not or | + + + Author + + + | Author | [place] [employer] [facility] | + + + | Organization | [facility] | + + + | Address | Unknown | + + + | Phone | Unavailable | + + + Support + + +---------+ + | Name | Relationship | Address | Phone | + + +---------+ + | Alexandria Dixon | ECON | Unknown | | + + +---------+ + Care Team Providers + +------+ + | Care Pizza Hut Assistant Name | Role | Phone | + +------+ + | Priscilla Ramírez PA-C | PCP | | + +------+ + Reason for Visit + + + | Reason | Comments | + + + | Refill Request | Ranolazine 1,000 mg BID | + + + | Refill Request | | + + + | Refill Request | | + + + | Appointment | | + + + Encounter Details +--------+--------+ + + + | Date | Type | Department | Care Team | Description | +--------+--------+ + + + | 06/29/ | Refill | Cardiology General | Zuleika Hernandez, | Refill Request | | 2019 | | at [facility] [address] | [address] | (Ranolazine 1,000 mg | | | | [address] Mailcode: | [address] | BID); Refill | | | | [facility] Center for | [place], [place] | Request; Refill | | | | Health and Healing, | [address] | Request; Appointment | | | | | [phone] | | | | | floor [place], [place] | | | | | | [address] | | | | | | [phone] | | | +--------+--------+ + + + [...] Rd | | | | | | [place], [place] | | | | | | [address] | | | | | | [phone] | | | | | | | | +--------+---------+ + + + documented as of this encounter Visit Diagnoses Not on filedocumented in this encounter"
--- OUTSIDE RECORDS SUMMARY | ~2019-07-14 | XMS | Encounter Summary ---
Demographics + + + | Address | [address] | | | [place] [address] | + + + | Home Phone | | + + + | Preferred Language | Unknown | + + + | Marital Status | Single | + + + | Synagogue Affiliation | NON | + + + | Race | or | + + + | Ethnic Group | Not or | + + + Author + + + | Author | [place] [employer] [facility] | + + + | Organization | [facility] | + + + | Address | Unknown | + + + | Phone | Unavailable | + + + Support + + +---------+ + | Name | Relationship | Address | Phone | + + +---------+ + | Alexandria Dixon | ECON | Unknown | | + + +---------+ + Care Team Providers + +------+ + | Care Corporate Claims Examiner Name | Role | Phone | + [...] Description | +--------+--------+ + + + | 11/13/ | Refill | Neurosurgery at | Donnie, | Refill Request | | 2011 | | [facility] [address] | Cathie, | | | | | [place] Mailcode: CH8N | DNP,PUMP STATION OPERATOR,[place] [address] | | | | | [facility] | [address] [place], | | | | | and [facility], | [place] [address] | | | | | Building 1 | [phone] | | | | | [place], [place] | | | | | | [address] | | | | | | [phone] | | | +--------+--------+ + + + [...] | | 2019 | Visit | | [address] | | | | | | [address] | | | | | | [place], [place] | | | | | | [address] | | | | | | [phone] | | | | | | | | +--------+---------+ + + + documented as of this encounter Visit Diagnoses Not on filedocumented in this encounter"
--- OUTSIDE RECORDS SUMMARY | ~2019-07-14 | XMS | Encounter Summary ---
Demographics + + + | Address | [address] | | | [place] [address] | + + + | Home Phone | | + + + | Preferred Language | Unknown | + + + | Marital Status | Single | + + + | Moravian Affiliation | NON | + + + | Race | or | + + + | Ethnic Group | Not or | + + + Author + + + | Author | [place] [employer] [facility] | + + + | Organization | [facility] | + + + | Address | Unknown | + + + | Phone | Unavailable | + + + Support + + +---------+ + | Name | Relationship | Address | Phone | + + +---------+ + | Alexandria Dixon | ECON | Unknown | | + + +---------+ + Care Team Providers + +------+ + | Care Live Hanger Name | Role | Phone | + +------+ + | Jhonny Rodriguez DO | PCP | | + +------+ + Encounter Details +--------+ + + + + | Date | Type | Department | Care Team | Description | +--------+ + + + + | 11/24/ | MyChart | Neurosurgery at | Donnie, | RE: Benjamin | | 2012 | Encounter | [facility] [address] | Cathie | | | | | [place] Mailcode: CH8N | DNP,UNEMPLOYMENT INSURANCE HEARING OFFICER,[place] [address] | | | | | [facility] | [address] [place], | | | | | and [place], | [place] [address] | | | | | [facility] | [phone] | | | | | [place], [place] | | | | | | [address] | | | | | | [phone] | | | +--------+ + + + [...] [place] | | | | | | [address] | | | | | | [phone] | | | | | | | | +--------+---------+ + + + documented as of this encounter Visit Diagnoses Not on filedocumented in this encounter"
--- OUTSIDE RECORDS SUMMARY | ~2019-07-14 | XMS | Encounter Summary ---
Demographics + + + | Address | [address] | | | [place] [address] | + + + | Home Phone [...] + + + | Author | [place] [facility] | + + + | Organization | [facility] | + + + | Address | Unknown | + + + | Phone | Unavailable | + + + Support + + +---------+ + | Name | Relationship | Address | Phone | + + +---------+ + | Alexandria Dixon | ECON | Unknown | | + + +---------+ + Care Team Providers + +------+ + | Care Engineering Group Leader Name | Role | Phone | + +------+ + | Priscilla Ramírez PA-C | PCP | | + +------+ + Reason for Visit +--------+ + | Reason | Comments | +--------+ + | Other | External order (CT) | +--------+ + Encounter Details +--------+ + + + + | Date | Type | Department | Care Team | Description | +--------+ + + + + | 04/01/ | Abstract | Cardiology General | Zuleika Hernandez, | Other (External | | 2018 | | at [facility] [address] | MD [address] | order (CT)) | | | | Lyman Rosalva Mailcode: | Kit Flores | | | | | [address] | [place], [place] | | | | | [facility], | [address] | | | | | [facility] | [phone] | | | | | floor [place], [place] | | | | | | [address] | | | | | | [phone] | | | +--------+ + + + [...] + documented as of this encounter Progress Anju AroraydHerbert - 04/01/2018 9:51 AM PDTTest/Study/Procedure: CT Dx: I25.118, I51.89 CPT: 20148 Ordering Provider: Zuleika Hernandez DOS: TBA Location name: [facility] Location address: [address] [place] [address] Location phone/fax: [phone] , fax Insurance Name: [facility] (secondary) ID Number: [id number], [id number] (secondary) TEL: [phone], (secondary) Notes: 04/07- PCI approved ([id number]- [id number], 04/06/18- 07/07/18 [facility]) Angio approved ([id number]- [id number], 04/07/18- 05/22/18 per [facility]) -Omid from [facility] says CT is approved- [id number], 04/01/18- 07/04/18 and will fax au th for Angio 04/06- Per fax stacy and Ruba from [facility], [id number] is processed through [facility] and [phone] is processed through [place] but new auth needs to be submitted since original request was sent back (Call ref# [id number]) 2nd attempt [place] for [id number] re faxed to [facility] - [place] at [facility] started case and asked chart notes be faxed in with case# [id number] attached Chart notes faxed, will check status Thur - S/w Omid at [facility] who says CTA auth pending as well and she will keep me updated. 04/01- Per Omid at [facility] (PCP/insurance), need chart notes to submit auth for CT jhoan ng done at [facility] in [facility] [phone] (not in office on Fridays) - Chart notes faxed to [employer] at [phone] - [facility] [employer], request for Angio was received and is pending (call ref# [id number]) documented in this encounter Plan of Treatment +--------+---------+ + + + | Date | Type | Specialty | Care Team | Description | +--------+---------+ + + + | 08/15/ | Office | Cardiology | Zuleika Hernandez, | | | 2020 | Visit | | [address] | | | | | | [address] | | | | | | [place] | | | | | | [address] | | | | | | [phone] | | | | | | | | +--------+---------+ + + + documented as of this encounter Visit Diagnoses Not on filedocumented in this encounter"
--- OUTSIDE RECORDS SUMMARY | ~2019-07-14 | XMS | Encounter Summary ---
Demographics + + + | Address | [address] [address] | | | [place] [address] | + + + | Home Phone | | + + + | Preferred Language | Unknown | + + + | Marital Status | Single | + + + | Scientologist Affiliation | NON | + + + | Race | or | + + + | Ethnic Group | Not or | + + + Author + + + | Author | [place] [facility] | + + + | Organization | [facility] | + + + | Address | Unknown | + + + | Phone | Unavailable | + + + Support + + +---------+ + | Name | Relationship | Address | Phone | + + +---------+ + | Alexandria Dixon | ECON | Unknown | | + + +---------+ + Care Team Providers + +------+ + | Care Gun Club Manager Name | Role | Phone | [...] Description | +--------+---------+ + + + | 07/08/ | Surgery | 6A Intra Op [facility] | Koffi Aguilar | Canceled | | 2015 | | [facility] | MD Michell [address] | RESECTION OF MITRAL | | | | Admitting Desk | [address] | VALVE MASS; POSSIBLE | | | | Located on the 9 | [place], [place] | MITRAL VALVE | | | | floor [facility] [address] | [address] | REPLACEMENT; | | | | [address] | [phone] | CORONARY ARTERY | | | | [place], [place] | | BYPASS GRAFTING- | | | | [address] | | CASE ABORTED PRIOR | | | | | | TO INCISION | +--------+---------+ + + + Social History [...] + + + | Blood Pressure | 127/84 | 07/08/2016 12:30 PM | | | | | PST | | + + + + + | Pulse | 49 | 07/08/2016 11:15 AM | | | | | PST | | + + + + + | Temperature | 36.4 C (97.5 F) | 07/08/2016 12:30 PM | | | | | PST | | + + + + + | Respiratory Rate | 14 | 07/08/2016 12:30 PM | | | | | PST | | + + + + + | Oxygen Saturation | 98% | 07/08/2016 11:15 AM | | | | | PST | | + + + + + | Inhaled Oxygen | - | - | | | Concentration | | | | + + + + + | Weight | - | - | | + + + + + | Height | 172.7 cm (5' 7.99") | 07/08/2016 9:30 AM | | | | | PST | | + + + + + | Body Mass Index | - | - | | + + + + + documented in this encounter Discharge Summaries Ashish Meyer PA-C - 07/08/2016 1:00 PM PSTFormatting of this note might be different f rom the original. INPATIENT PROVIDER DISCHARGE SUMMARY Admit Date: 07/08/16 Discharge Date: 07/08/16 Service: Cardiac Surgery Principal Final Diagnosis: 1. Mitral leaflet abnormality 2. Coronary artery disease 3. Adrenal insufficiency (HCC) 4. Diabetes insipidus (HCC) 5. Essential hypertension 6. Growth hormone deficiency (HCC) 7. Hypogonadism male 8. Hypothyroid 9. Mitral valve mass 10. 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 Pituitary adenoma (HCC) 13. Vitamin D deficiency Reason for Admission, Significant Findings, Treatment, and Complications Brief Hospital Course: 1. Mr. Tyler has known CAD with previous stent to the RCA which was found to be occluded o n recent angiogram. Additionally he was found to have a mass on his mitral valve on echocard iogram. He presented to [facility] for surgical removal of the mass and coronary bypass grafting. 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 Endocrinology was called regarding his chronic steroids an d he will take 50mg hydrocortisone once this evening and will resume home dosage tomorrow. [facility] management has arranged for INR follow-up for his warfarin to be followed by his PCP. He will follow-up with Dr. Aguilar in 1 month with a repeat TTE and a stress echo. Procedures: 1. ET tube 2. Central venous line 3. Davis catheter 4. Arterial line Discharge Medications: Medication List START taking these medications warfarin 5 mg Tab Commonly known as: COUMADIN Take 1 tablet by mouth once daily. CHANGE how you take these medications * hydrocortisone 5 mg Tab Commonly known as: CORTEF What changed: additional instructions * Notice: This list has 1 medication(s) that are the same as other medications prescribed for you. Read the directions carefully, and ask your doctor or other care provider to revie w them with you. CONTINUE taking these medications amLODIPine 5 mg Tab Commonly known as: NORVASC atorvastatin 40 mg Tab Commonly known as: LIPITOR cholecalciferol (vitamin D3) 4,000 unit Tab DEPO-TESTOSTERONE 200 mg/mL Oil Generic drug: testosterone cypionate desmopressin 0.2 mg Tab Commonly known as: DDAVP Take 1 1/2 tablets in the morning and 2 tablets in the evening. HYDROcodone-acetaminophen 10-325 mg Tab Commonly known as: NORCO hydrocortisone sodium succinate (PF) 100 mg/2 mL Solr Commonly known as: hydrocortisone sodium succinate Inject 1ml for symptoms of adrenal crisis. Low blood pressure, vomiting, high heart rate. levothyroxine 125 mcg Tab Take 1 tablet by mouth before breakfast. lisinopril 40 mg Tab Commonly known as: PRINIVIL metFORMIN 500 mg Tab Commonly known as: GLUCOPHAGE 2 tabs at breakfast and one tab at dinner dialy metoprolol tartrate 50 mg Tab Commonly known as: LOPRESSOR phentermine 37.5 mg Tab promethazine 25 mg Tab Commonly known as: PHENERGAN Take 1 tablet by mouth four times daily as needed for nausea/vomiting. Somatropin 10 mg/2 mL (5 mg/mL) Crtg Commonly known as: NUTROPIN AQ NUSPIN Inject 0.8 mg under the skin (SUBC) once daily. ASK your doctor about these medications * hydrocortisone 10 mg Tab Commonly known as: CORTEF Take 5 tablets by mouth once for [address] of your evening dose on 07/09/16. Ask about: Should I take this medication? * Notice: This list has 1 medication(s) that are the same as other medications prescribed for you. Read the directions carefully, and ask your doctor or other care provider to revie w them with you. Where to Get Your Medications These medications were sent to [facility] [address], [place] [address] Hours: 8AM-9PM Mon-Fri; 9-5:30PM Sat-Sun hydrocortisone 10 mg Tab warfarin 5 mg Tab Diet: Diabetic diet (Consistent Carbohydrate)- You should be careful to control your daily intake of carbohydrates and ensure that you are consuming the same amount of carbohydrates each day. Your health care provider will work with you to determine the appropriate amount o f carbohydrates your body needs. Activity Orders: No driving x 6 weeks. No heavy lifting (> 10 lbs.) x 6 weeks. No baths, hot tubs x 6 weeks. Shower OK. Sexual activity OK. No driving while on narcotic pain medi cations. Sternal precautions: Do not lift more than 8 pounds. (A gallon of milk weighs 8 pounds.) Do not push or pull with your arms when moving in bed and getting out of bed. Do not flex or extend your shoulders over 90. Avoid reaching too far across your body. Avoid twisting or deep bending. Do not hold your breath during activity. Brace your chest when coughing or sneezing. This is vital during the first 2 weeks at h ome. No driving for 1 month or while still taking narcotic pain medications. Avoid long periods of over the shoulder activity. If you feel any pulling or stretching in your chest, stop what you are doing. Do not re peat the motion that caused this feeling. Report any clicking or popping noise around your chest bone to your surgeon right away. No baths/soaking/hot tubs/pools until all scabs have completely fallen off - shower daily a nd dry incisions completely Special Instructions: (Treatment, Equipment, Supplies, Dressings, LAB follow-up) Oxygen? No Weigh daily: no Most recent LV Ejection Fraction: 60-65% Tobacco Use: No recent tobacco use Core Measures: Diagnosis of Acute NH: No Diagnosis of CHF: No Follow Up Appointments: PCP:. When? 1 month Other: INR - To be arranged by case management for check on 07/10/16 or 07/11/16 - patient wi ll be contacted with appointment information Blaise Aguilar on 08/14/16 Follow Up Tests: (Tests at [facility] must be entered into [facility]) Stress Echo at follow-up appointment with Dr. Aguilar TTE at follow-up with Dr. Aguilar Condition On Discharge: Good Vital Signs at discharge as appropriate: BP: 127/84 (07/08/16 1230) Pulse: 49 (07/08/16 1115) Resp: 14 ( 1230) Labs: Lab Results Component Value Date NA 139 07/08/2016 K 4.0 07/08/2016 CL 107 07/08/2016 BICARB 26 07/07/2016 BUN 12 07/07/2016 CR 0.83 07/07/2016 GLU 145 07/08/2016 CA 8.4 07/07/2016 Lab Results Component Value Date WBC 9.08 07/07/2016 HB 18.0 07/07/2016 HCT 48.3 07/08/2016 PLT 280 07/07/2016 MCV 84.4 07/07/2016 RDW 41.4 07/07/2016 Lab Results Component Value Date INRPT 0.96 07/07/2016 Discharge Patient To: Home Discharging Provider: Ashish Meyer PA-C Date Completed: 07/10/16 Time Completed: 10:10 Discharging Attending: Blaise Aguilar 07/10/2016, 10:07 AM Physician Signature: Electronically signed by: Ashish Meyer PA-C Division of Cardiothoracic Surgery [facility] Mail Code L353 [address] [facility] [address] Associated attestation - Koffi Aguilar MD - 08/28/2016 11:11 AM PSTI personally int erviewed the patient, performed the pertinent parts of the physical examination and personal ly formulated the plan with the resident. I agree with the resident's documentation and hav e documented any additions or exceptions. Koffi Aguilar MD documented in this encounter Medications at Time [...] documented as of this encounter Progress Notes Koffi Aguilar MD - 07/08/2016 10:19 AM PSTCardiac Surgery 07/08/2016 Mr Tyler is a 36 year old man who was scheduled for removal of intracardiac mass and CABG. He presented with increasing fatigue and recurrent chest discomfort. He had an intracardiac mass (about 8 mm) near the posterior mitral annulus on the LV side well visualized on TTE o n 05/22/2016. Angiogram showed a patent stent to the LCx, EGG SEPARATOR of the RCA (prior attempt to o pen it up had failed), and 40% stenosis of LAD. Today, after induction, MAURA was performed. The mass on the TTE could not be clearly visuali zed, only a sessile bump, perhaps 3 mm, could be seen. I had a long conversation with his fa pedro. I showed them the images of the prior echo and explained that what is seen there was n ot seen on the MAURA today. As such, I do not think the the benefit of an exploratory surgery and CABG outweighs the risks at this time. It is not clear what the mass was. It is possible that some portion of it embolized. Mr Tyler was woken up uneventfully. They had a lot of q uestions (which I answered), but they were understandably very happy he did not require an o peration. We discussed a plan to start warfarin for a few months and repeat an echo. We will also obt ain a functional study of his heart to determine the significance of his LAD lesion, as it i s still unclear what is causing his chest pain. They would like to have follow up for this i ssue at [facility] if possible. I will arrange for these studies to be done prior to follow up in my clinic. We had a thorough discussion of the risks and benefits of this plan. Full PARQ di scussion was held. All their questions were answered. I spent 60 minutes in the care of this patient, greater than 50% of which was CCC. Koffi Aguilar MD documented in this encounter Plan of Treatment +--------+---------+ + + + | Date | Type | Specialty | Care Team | Description | +--------+---------+ + + + | 08/15/ | Office | Cardiology | Zuleika Hernandez, | | | 2019 | Visit | | [address] | | | | | | [address] | | | | | | [place], [place] | | | | | | [address] | | | | | | [phone] | | | | | | | | +--------+---------+ + + + documented as of this encounter Procedures + +--------+ + + + | Procedure Name | Priori | Date/Time | Associated Diagnosis | Comments | | | ty | | | | + +--------+ + + + | X-RAY PORTABLE CHEST | Urgent | 07/08/2016 | | Results for this | | 1 VIEW | | 11:37 AM | | procedure are in the | | | | PST | | results section. | + +--------+ + + + | CAPILLARY BLOOD | Routin | 07/08/2016 | Mitral valve mass | Results for this | | GLUCOSE (NO CHG), | e | 10:14 AM | | procedure are in the | | POC | | PST | | results section. | + +--------+ + + + | ABG-FULL ABL, POC | Routin | 07/08/2016 | Mitral valve mass | Results for this | | | e | 8:18 AM | | procedure are in the | | | | PST | | results section. | + +--------+ + + + | CONFIRMATORY ABO/RH | Routin | 07/08/2016 | | Results for this | | | e | 7:10 AM | | procedure are in the | | | | PST | | results section. | + +--------+ + + + | CAPILLARY BLOOD | Routin | 07/08/2016 | Mitral valve mass | Results for this | | GLUCOSE (NO CHG), | e | 6:28 AM | | procedure are in the | | POC | | PST | | results section. | + +--------+ + + + | PERFUSION | | 07/08/2016 | | | | | | 12:00 AM | | | | | | PST | | | + +--------+ + + + | CARDIOLOGY | | 07/08/2016 | | Results for this | | | | 12:00 AM | | procedure are in the | | | | PST | | results section. | + +--------+ + + + documented in this encounter Results X-RAY PORTABLE CHEST 1 VIEW (07/08/2016 11:37 AM PST) + + + + + + | Component | Value | Ref Range | Performed | Pathologist | | | | | At | Signature | + + + + + + | X-RAY | EXAM: IA CHEST 1 VIEW | | | | | PORTABLE | 11/29/16 11:37:00 | | | | | CHEST 1 | HISTORY: 36 year old | | | | | VIEW | female status post | | | | | | central line placement | | | | | | COMPARISON: Yesterday | | | | | | FINDINGS: Right jugular | | | | | | approach central line | | | | | | has its tip in the upper | | | | | | SVC. There is | | | | | | nopneumothorax. | | | | | | Cardiac size is normal | | | | | | and the mediastinal | | | | | | contour is withinnormal | | | | | | limits. Lung volumes are | | | | | | lower. The lungs are | | | | | | clear. There is no | | | | | | pleural effusion | | | | | | orpulmonary edema. No | | | | | | acute fractures | | | | | | identified. IMPRESSION: | | | | | | Right jugular approach | | | | | | central line has its tip | | | | | | in the upper SVC. | | | | | | Nopneumothorax. Lower | | | | | | lung volumes. Clear | | | | | | lungs. Attending | | | | | | Radiologists: SALLY | | | | | | CARLA LINARESuthor: SALLY | | | | | | MD MILAGROS I personally | | | | | | reviewed the images and, | | | | | | if necessary, edited | | | | | | the report. I agreewith | | | | | | the report as now | | | | | | presented. | | | | | | Final/Electronically | | | | | | signed / SALLY | | | | | | MILAGROS 07/08/2016 11:54 | | | | | | AM | | | | + + + + + + + + | Specimen | + + | | + + + +---------+ + + | Performing | Address | City/State/Zipcode | Phone Number | | Organization | | | | + +---------+ + + | [facility] DEPARTMENT OF | | | | | RADIOLOGY | | | | + +---------+ + + CAPILLARY BLOOD GLUCOSE (NO CHG), POC (07/08/2016 10:14 AM PST) + +---------+ + + + | Component | Value | Ref Range | Performed | Pathologist | | | | | At | Signature | + +---------+ + + + | BLOOD | 145 (H) | 60 - 99 mg/dL | [facility] - | | | GLUCOSE, | | | [facility] | | | POC | | | [facility] | | | | | | OF CARE | | | | | | TESTS | | + +---------+ + + + + + | Specimen | + + | | + + + + + + + | Performing | Address | City/State/Zipcode | Phone Number | | Organization | | | | + + + + + | [facility] | [address] | [place], [place] | | | [facility] | [address] | [address] | | | TESTS | | | | + + + + + UNA-JEF CLEMENT (07/08/2016 8:18 AM PST) + + + + + + | Component | Value | Ref Range | Performed | Pathologist | | | | | At | Signature | + + + + + + | PH | 7.30 (L) | 7.37 - 7.44 | [facility] - | | | ARTERIAL, | | | [facility] | | | POC | | | [facility] | | | | | | OF CARE | | | | | | TESTS | | + + + + + + | PO2 | 332 (H) | 83 - 108 mmHg | [facility] - | | | ARTERIAL, | | | [facility] | | | POC | | | [facility] | | | | | | OF CARE | | | | | | TESTS | | + + + + + + | PCO2 | 51 (H) | 32 - 43 mmHg | [facility] - | | | ARTERIAL, | | | [facility] | | | POC | | | [facility] | | | | | | OF CARE | | | | | | TESTS | | + + + + + + | TOTAL | 15.8 | 13.5 - 17.5 | [facility] - | | | HEMOGLOBIN, | | g/dL | [facility] | | | POC | | | [place] | | | | | | OF CARE | | | | | | TESTS | | + + + + + + | O2 SAT | 100.6 (H) | 92.0 - 98.0 % | [facility] - | | | ARTERIAL, | | | [facility] | | | POC | | | [place] [place] | | | | | | OF CARE | | | | | | TESTS | | + + + + + + | HEMATOCRIT, | 48.3 | 41.0 - 53.0 % | [facility] - | | | POC | | | [facility] | | | | | | [place] | | | | | | OF CARE | | | | | | TESTS | | + + + + + + | POTASSIUM, | 4.0 | 3.4 - 5.0 | [facility] - | | | POC | | mmol/L | [facility] | | | | | | [place] [place] | | | | | | OF CARE | | | | | | TESTS | | + + + + + + | SODIUM, POC | 139 | 134 - 143 | [facility] - | | | | | mmol/L | [facility] | | | | | | [facility] | | | | | | OF CARE | | | | | | TESTS | | + + + + + + | BRIGIDA | 1.24 | 1.14 - 1.32 | [facility] - | | | IONIZED CA, | | mmol/L | [facility] | | | POC | | | [facility] | | | | | | OF CARE | | | | | | TESTS | | + + + + + + | CHLORIDE, | 107 | 97 - 108 mmol/L | [facility] - | | | POC | | | [facility] | | | | | | [facility] | | | | | | OF CARE | | | | | | TESTS | | + + + + + + | GLUCOSE, | 118 (H) | 60 - 99 mg/dL | [facility] - | | | POC | | | [facility] | | | | | | [facility] | | | | | | OF CARE | | | | | | TESTS | | + + + + + + | HCO3 | 24.7 | 21 - 28 mmol/L | [facility] - | | | ARTERIAL, | | | [facility] | | | POC | | | MATI, POINT | | | | | | OF CARE | | | | | | TESTS | | + + + + + + | BASE EXCESS | -1.7 | | [facility] - | | | ARTERIAL, | | | [facility] | | | POC | | | [facility] | | | | | | OF CARE | | | | | | TESTS | | + + + + + + | LACTATE | 1.7 (H) | 0.5 - 1.6 | [facility] - | | | ARTERIAL, | | mmol/L | [facility] | | | POC | | | [place] | | | | | | OF CARE | | | | | | TESTS | | + + + + + + + + | Specimen | + + | | + + + + + + + | Performing | Address | City/State/Zipcode | Phone Number | | Organization | | | | + + + + + | [facility] | [address] | [place], [place] | | | [facility] OF CARE | [address] | [address] | | | TESTS | | | | + + + + + CONFIRMATORY ABO/RH (07/08/2016 7:10 AM PST) + + + + + + | Component | Value | Ref Range | Performed | Pathologist | | | | | At | Signature | + + + + + + | ABO Group | A | | [facility] | | | | | | LABORATORY | | | | | | SERVICES, | | | | | | TRANSFUSION | | | | | | MEDICINE | | + + + + + + | Rh Type | Positive | | [facility] | | | | | | LABORATORY | | | | | | SERVICES, | | | | | | TRANSFUSION | | | | | | MEDICINE | | + + + + + + + + | Specimen | + + | Blood - Blood | | (substance) | + + + + + + + | Performing | Address | City/State/Zipcode | Phone Number | | Organization | | | | + + + + + | [facility] | [address] | [place] [address] | | | SERVICES, | [address] | | | | TRANSFUSION MEDICINE | | | | + + + + + CAPILLARY BLOOD GLUCOSE (NO CHG), POC (07/08/2016 6:28 AM PST) + +-------+ + + + | Component | Value | Ref Range | Performed | Pathologist | | | | | At | Signature | + +-------+ + + + | BLOOD | 99 | 60 - 99 mg/dL | [facility] - | | | GLUCOSE, | | | [facility] | | | POC | | | [facility] | | | | | | OF CARE | | | | | | TESTS | | + +-------+ + + + + + | Specimen | + + | | + + + + + + + | Performing | Address | City/State/Zipcode | Phone Number | | Organization | | | | + + + + + | [facility] | [address] | [place], [place] | | | [facility] | [address] | [address] | | | TESTS | | | | + + + + + CARDIOLOGY (07/08/2016 12:00 AM PST) + + + | Narrative | Performed At | + + + | | | + + + documented in this encounter Visit Diagnoses Not on filedocumented in this encounter Administered Medications + +---------+ + + +------+ | Medication Order | MAR | Action | Dose | Rate | Site | | | Action | Date | | | | + +---------+ + + +------+ | lactated ringers IV 10 mL/hr, | New Bag | 07/08/20 | 10 mL/hr | 10 mL/hr | | | intravenous, PROCEDURE | | 16 7:00 | | | | | CONTINUOUS, Starting 07/08/16 | | AM PST | | | | | at 0615, Until 07/08/16 at | | | | | | | 1919 | | | | | | + +---------+ + + +------+ + +---+ | | | + +---+ | lidocaine (XYLOCAINE) 10 mg/mL | | | (1 %) injection subcutaneous, | | | PREPROCEDURE PRN, Starting Tue | | | 07/08/16 at 0613, Until Tue | | | 07/08/16 at 1919, IV start | | + +---+ | | | + +---+ | naloxone (NARCAN) injection | | | intravenous, POSTPROCEDURE PRN, | | | Starting 07/08/16 at 1011, | | | Until 07/08/16 at 191, over | | | sedation | | + +---+ | | | + +---+ + +-------+ +---------+---+ + | promethazine (PHENERGAN) | Given | 07/08/20 | 6.25 mg | | Left Arm | | injection 6.25-12.5 mg 6.25-12.5 | | 16 12:24 | | | | | mg, intravenous, POSTPROCEDURE | | PM PST | | | | | PRN, 1 dose, Starting Tue | | | | | | | 07/08/16 at 1012, Until Tue | | | | | | | 07/08/16 at 1224, | | | | | | | nausea/vomiting, 1st line | | | | | | + +-------+ +---------+---+ + + +---+ | | | + +---+ | veingraft solution irrigation, | | | 6A INTRAPROCEDURE ONCE | | | (DISPENSE), 1 dose, Starting Tue | | | 07/08/16 at 0732, Until Tue | | | 07/08/16 at 1919 | | + +---+ | | | + +---+ documented in this encounter
--- OUTSIDE RECORDS SUMMARY | ~2019-07-14 | XMS | Encounter Summary ---
Demographics + + + | Address | [address] | | | [place] [address] | + + + | Home Phone [...] + + + | Author | [place] [facility] | + + + | Organization | [facility] | + + + | Address | Unknown | + + + | Phone | Unavailable | + + + Support + + +---------+ + | Name | Relationship | Address | Phone | + + +---------+ + | Alexandria Dixon | ECON | Unknown | | + + +---------+ + Care Team Providers + +------+ + | Care Sales Representative [employer] Name | Role | Phone | + [...] Description | +--------+--------+ + + + | 09/12/ | Refill | Neurosurgery at | Jaclyn Crawford, | Refill Request | | 2013 | | [facility] [address] | [address] | | | | | [place] Mailcode: [id number] | [address] | | | | | [facility] | [place], [place] | | | | | [address], | [address] | | | | | [address] | [phone] | | | | | [place], [place] | | | | | | [address] | | | | | | [phone] | | | +--------+--------+ + + + [...] | | 2019 | Visit | | [address] | | | | | | [address] | | | | | | [place], [place] | | | | | | [address] | | | | | | [phone] | | | | | | | | +--------+---------+ + + + documented as of this encounter Visit Diagnoses Not on filedocumented in this encounter"
--- OUTSIDE RECORDS SUMMARY | ~2019-07-14 | XMS | Encounter Summary ---
Demographics + + + | Address | [address] | | | [place] [address] | + + + | Home Phone [...] + + + | Author | [place] [facility] [facility] | + + + | Organization | [facility] | + + + | Address | Unknown | + + + | Phone | Unavailable | + + + Support + + +---------+ + | Name | Relationship | Address | Phone | + + +---------+ + | Alexandria Dixon | ECON | Unknown | | + + +---------+ + Care Team Providers + +------+ + | Care Pull Socket Assembler Name | Role | Phone | [...] Closed | | Radiology | Diagnoses | Yvette | [facility] | | | | | Pituitary | MD Jaclyn | [address] | | | | | adenoma | [address] | [address] | | | | | (HCC) | [address] | Rd | | | | | Procedures | Rd | Mailcode: | | | | | MRI BRAIN | [place], [place] | [address] | | | | | WWO CONTRAST | [address] | [place] | | | | | | Phone: | Research | | | | | | [phone] | Center | | | | | | Fax: | [place], [place] | | | | | | [phone] | [address] | | | | | | | Phone: | | | | | | | [phone] | | | | | | | Fax: | | | | | | | [phone] | +--------+--------+ + + + + Encounter Details +--------+ + + + + | Date | Type | Department | Care Team | Description | +--------+ + + + + | 05/07/ | Hospital | Radiology/Imaging | | | | 2009 | Encounter | Lab at [facility] [address] | | | | | | [address] [place] Mailcode: | | | | | | [facility] [place] for | | | | | | Health and Healing, | | | | | | Building | | | | | | Floor [facility] [place] | | | | | | [address] | | | | | | [phone] | | | +--------+ + + + [...] | | 2020 | Visit | | [address] | | | | | | [address] | | | | | | [place], [place] | | | | | | [address] | | | | | | [phone] | | | | | | | | +--------+---------+ + + + documented as of this encounter Procedures + +--------+ + + + | Procedure Name | Priori | Date/Time | Associated Diagnosis | Comments | | | ty | | | | + +--------+ + + + | MRI BRAIN WWO | Routin | 05/07/2010 | Pituitary adenoma | Results for this | | CONTRAST | e | 1:50 PM | (HCC) | procedure are in the | | | | PDT | | results section. | + +--------+ + + + documented in this encounter Results MRI BRAIN WWO CONTRAST (05/07/2010 1:50 PM PDT) + + + + + + | Component | Value | Ref Range | Performed | Pathologist | | | | | At | Signature | + + + + + + | MR BRAIN | STUDY: MRI BRAIN W/WO | | | | | WWO | CONTRAST 05/07/10 | | | | | CONTRAST | 13:50:00 INDICATION: | | | | | | History of pituitary | | | | | | adenoma status post | | | | | | resection.Surveillance | | | | | | imaging 6 months after | | | | | | treatment. COMPARISON: | | | | | | 04/03/09. TECHNIQUE: | | | | | | Multiplanar, | | | | | | multi-sequence MR | | | | | | imaging of the brain | | | | | | wasperformed with | | | | | | special attention to the | | | | | | sellar region. Images | | | | | | wereacquired both | | | | | | before, during, and | | | | | | after administration of | | | | | | 20 mLOmniscan gadolinium | | | | | | based intravenous | | | | | | contrast on an open 1.0 | | | | | | Teslamagnet. FINDINGS: | | | | | | On whole brain | | | | | | diffusion imaging, there | | | | | | is no diffusion | | | | | | restriction.Visualized | | | | | | portions of the brain | | | | | | parenchyma are within | | | | | | normal limits. There is | | | | | | no hydrocephalus. | | | | | | There is no midline | | | | | | shift. Noparenchymal | | | | | | mass lesion is | | | | | | identified. | | | | | | Redemonstrated are | | | | | | postsurgical changes of | | | | | | transphenoidal | | | | | | surgery.Infundibulum is | | | | | | midline. There is no | | | | | | mass effect on the | | | | | | opticchiasm. The | | | | | | visualized portions of | | | | | | the optic nerves are | | | | | | withinnormal limits. | | | | | | The there is mild | | | | | | heterogeneity in any | | | | | | enhancement ofthe | | | | | | residual pituitary | | | | | | tissue delayed | | | | | | enhancement at the far | | | | | | lateralleft aspect and | | | | | | right inferior aspect of | | | | | | the gland. Enhancing | | | | | | tissuein the sphenoid | | | | | | sinus with fluid signal | | | | | | centrally is again | | | | | | noted. IMPRESSION: | | | | | | Stable overall | | | | | | appearance of the | | | | | | contents of the sella. | | | | | | Mildlyheterogeneous | | | | | | enhancement of the | | | | | | stable mild remaining | | | | | | pituitarytissue. I have | | | | | | personally viewed this | | | | | | procedure/exam and | | | | | | reviewed this report. | | | | | | Author: MARY MUNGUIA, | | | | | | MDReviewer: SURESH | | | | | | Johan COKER STATUS | | | | | | FINAL / Dr. PRINCE | | | | | | PRADIP FINAL / | | | | | | Dr. SURESH MOSELEY | | | | | | RESULT MODIFIED / | | | | | | SURESH COKERSTAT FINAL | | | | | | / Dr. PRINCE | | | | | | SHEELASTAT RESULT | | | | | | MODIFIED / Dr. PRINCE | | | | | | SHEELASTAT PENDING | | | | | | FINAL APPROVAL / - | | | | | | -STATUS PRELIMINARY - | | | | | | UNSIGNED / - - | | | | + + + + + + + + | Specimen | + + | | + + + +---------+ + + | Performing | Address | City/State/Zipcode | Phone Number | | Organization | | | | + +---------+ + + | [facility] DEPARTMENT OF | | | | | RADIOLOGY | | | | + +---------+ + + documented in this encounter Visit Diagnoses + + | Diagnosis | + + | Pituitary adenoma (HCC) Benign neoplasm of pituitary gland and craniopharyngeal duct | | (pouch) | + + documented in this encounter"
--- OUTSIDE RECORDS SUMMARY | ~2019-07-14 | XMS | Encounter Summary ---
Demographics + + + | Address | [address] | | | [place] [address] | + + + | Home Phone [...] + + + | Author | [place] [facility] | + + + | Organization | [facility] | [...] Team Providers + +------+ + | Care Billet Bed Operator Name | Role | Phone | [...] Description | +--------+--------+ + + + | 10/05/ | Refill | Neurosurgery at | Donnie, | Refill Request | | 2012 | | [facility] [address] | [place], | | | | | [place] Mailcode: CH8N | DNP,APPOINTMENT COORDINATOR,[place] [address] | | | | | [facility] | [address] [place], | | | | | and Healing, | [place] [address] | | | | | Building 1 | [phone] | | | | | [place], [place] | | | | | | [address] | | | | | | [phone] | | | +--------+--------+ + + + [...] Rd | | | | | | [place], [place] | | | | | | [address] | | | | | | [phone] | | | | | | | | +--------+---------+ + + + documented as of this encounter Visit Diagnoses Not on filedocumented in this encounter"
--- OUTSIDE RECORDS SUMMARY | ~2019-07-14 | XMS | Encounter Summary ---
Demographics + + + | Address | [address] | | | [place] [address] | + + + | Home Phone [...] + + + | Author | [place] [employer] | + + + | Organization | [facility] | + + + | Address | Unknown | + + + | Phone | Unavailable | + + + Support + + +---------+ + | Name | Relationship | Address | Phone | + + +---------+ + | Alexandria Dixon | ECON | Unknown | | + + +---------+ + Care Team Providers + +------+ + | Care Lead Net Software Developer Name | Role | Phone [...] Closed | | Cardiology | Diagnoses | Mitch, | Car General | | | | | Mitral | Ashish Hernandez PA-C | [address] [address] | | | | | valve mass | [address] | | | | | Procedures | Yrn Pantoja | Mailcode: | | | | | CONSULT TO | [facility] | [facility] | | | | | CARDIOLOGY | [place], [place] | for Health | | | | | | [address] | and Healing, | | | | | | Phone: | Building 1, | | | | | | [phone] | 7th floor | | | | | | Fax: | [place], [place] | | | | | | [phone] | [address] | | | | | | | Phone: | | | | | | | [phone] | | | | | | | Fax: | | | | | | | [phone] | +--------+--------+ + + + + Encounter Details +--------+ + + + + | Date | Type | Department | Care Team | Description | +--------+ + + + + | 08/14/ | Field Crew Chief | Cardiothoracic | Ashish Meyer, | Mitral valve mass | | 2017 | | Surgery at [facility] [address] | PA-C [address] | (Primary Dx) | | | | [address] | [address] | | | | | Abdoulaye Mailcode: [address] | [place], [place] | | | | | Physician's | [address] | | | | | Cristiana [place], | [phone] | | | | | [place] [address] | | | | | | [phone] | | | +--------+ + + + [...] Rd | | | | | | [place], [place] | | | | | | [address] | | | | | | [phone] | | | | | | | | +--------+---------+ + + + documented as of this encounter Visit Diagnoses + + | Diagnosis | + + | 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
--- OUTSIDE RECORDS SUMMARY | ~2019-07-14 | XMS | Encounter Summary ---
Demographics + + + | Address | [address] | | | [place] [address] | + + + | Home Phone [...] + + + | Author | [place] [employer] [facility] | + + + | Organization | [facility] | + + + | Address | Unknown | + + + | Phone | Unavailable | + + + Support + + +---------+ + | Name | Relationship | Address | Phone | + + +---------+ + | Alexandria Dixon | ECON | Unknown | | + + +---------+ + Care Team Providers + +------+ + | Care Account Specialist Name | Role | Phone | + +------+ + | Jinny Bergeron MD | PCP | | + +------+ + Reason for Visit + + + | Reason | Comments | + + + | Phone communication | | + + + Encounter Details +--------+ + + + + | Date | Type | Department | Care Team | Description | +--------+ + + + + | 11/16/ | Telephone | Neurosurgery at | Donnie, | Phone communication | | 2014 | | [facility] [address] | Cathie, | | | | | [place] Mailcode: CH8N | DNP,CUSTOMER EXPERIENCE CONSULTANT,[place] [address] | | | | | [facility] | [address] [place], | | | | | and Healing, | [place] [address] | | | | | [place] [address] | [phone] | | | | | [place], [place] | | | | | | [address] | | | | | | [phone] | | | +--------+ + + + [...] | | 2019 | Visit | | [address] | | | | | | [address] | | | | | | [place], [place] | | | | | | [address] | | | | | | [phone] | | | | | | | | +--------+---------+ + + + documented as of this encounter Visit Diagnoses Not on filedocumented in this encounter"
--- OUTSIDE RECORDS SUMMARY | ~2019-07-14 | XMS | Encounter Summary ---
Demographics + + + | Address | [address] | | | [place] [address] | + + + | Home Phone | | + + + | Preferred Language | Unknown | + + + | Marital Status | Single | + + + | Congregational Affiliation | Unknown | + + + | Race | Unknown | + + + | Ethnic Group | Unknown | + + + Author + + + | Author | [facility] | | | and [place] | + + + | Organization | [facility] | | | and [place] [...] Team Providers + +------+ + | Care Study Assistant Name | Role | Phone | [...] | | | | | | | MS REPAIR OF | | | | | | | NASAL | | | | | | | SEPTUM MS | | | | | | | [...] + + + + | 04/08/ | Hospital | [facility] | Mckay De Leon MD | Deviated nasal | | 2015 | Encounter | MED CTR [facility] OP | [address] [place] | septum (Primary Dx); | | | | [address] | [address], | Hypertrophy of | | | | [place], [place] | [place] [address] | nasal turbinates | | | | [address] | [phone] | | | | | [phone] | | | +--------+ + + + [...] nose can help reduce and remove crusts. [id number] [employer]. [address] [place] [address]. All righ ts reserved. This information is [...] the amount of crusting at each visit. 5677-5036 [employer]. [address] [place] [address], [place] [address]. All righ ts reserved. This information is [...] THOMAS | | | | | | [address] | | | | | | | [...] 110 | 70 - 150 mg/dL | JIGNESH | | | POC | | | [facility] | | | | [...] [address] | FARRAH Thomas | [phone] | | [facility] | | [address] | | | - LABORATORY | | | | + + + + + documented in this encounter Visit Diagnoses + + | Diagnosis | + + | Deviated nasal septum - Primary | + + | Hypertrophy of nasal turbinates | + + documented in this encounter Administered Medications + +--------+ +--------+------+------+ | Medication Order | MAR | Action | Dose | Rate | Site | | | Action | Date | | | | + +--------+ +--------+------+------+ | fentaNYL (PF) injection 25-50 | Given | 04/08/20 | 25 mcg | | | | mcg 25-50 mcg, Intravenous, | | 16 10:43 | | | | | EVERY 5 MIN PRN, Pain, Starting | | AM PDT | | | | | 04/08/16 at 0958, Maximum | | | [...] | | | | + +--------+ +--------+------+------+ +-------+ +--------+---+---+ | Given | 04/08/20 | [...] | | | | | | use [place] 10/ if ordered. If | | | | [...] +---------+ +---+---+---+ +---+---+ | | | +---+---+ documented in this encounter
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
--- OUTSIDE RECORDS SUMMARY | ~2019-07-14 | XMS | Encounter Summary ---
Demographics + + + | Address | [address] | | | [place] [address] | + + + | Home Phone [...] + + + | Author | [place] [employer] [facility] | + + + | Organization | [facility] [...] Team Providers + +------+ + | Care Digital Tech Name | Role | Phone | + +------+ + PCP | Unavailable | + +------+ + Encounter Details +--------+ + + + + | Date | Type | Department | Care Team | Description | +--------+ + + + + | 08/20/ | Results | Neurosurgery 3181 | Reuben Styles, | | | 2005 | Only | [address] Yrn Michelle MD | | | | | Abdoulaye Mailcode:OP14B | | | | | | [place] | | | | | | [place], [place] | | | | | | [address] | | | | | | [phone] | | | +--------+ + + + [...] Rd | | | | | | [place], [place] | | | | | | [address] | | | | | | [phone] | | | | | | | | +--------+---------+ + + + + +---------+--------+ + + | Name | Type | Priori | Associated Diagnoses | Date/Time | | | | ty | | | + +---------+--------+ + + | MRI OUTSIDE FILMS | Imaging | Routin | | 08/20/2005 12:00 AM | | | | e | | PST | + +---------+--------+ + + | MRI OUTSIDE FILMS | Imaging | Routin | | 08/20/2005 12:00 AM | | | | e | | PST | + +---------+--------+ + + | CT OUTSIDE FILMS | Imaging | Routin | | 08/20/2005 12:00 AM | | | | e | | PST | + +---------+--------+ + + documented as of this encounter Visit Diagnoses Not on filedocumented in this encounter"
--- OUTSIDE RECORDS SUMMARY | ~2019-07-14 | XMS | Encounter Summary ---
Demographics + + + | Address | [address] | | | [place] [address] | + + + | Home Phone [...] + + + | Author | [place] [employer] [facility] | + + + | Organization | [facility] [...] Providers + +------+ + | Care Gate Technician Name | Role | Phone | + +------+ + | Priscilla Ramírez PA-C | PCP | | + +------+ + Encounter Details +--------+ + + + + | Date | Type | Department | Care Team | Description | +--------+ + + + + | 12/22/ | Ancillary | Registration 3181 | Donnie, | | | 2005 | Registratio | [facility] | Cathie | | | | n | Abdoulaye Mailcode: RPB07 | DNP,MILK WAGON DRIVER,[place] [address] | | | | | [place], [place] | [address] [place], | | | | | [address] | [place] [address] | | | | | [phone] | [phone] | | | | | | | [...] [place] | | | | | | [address] | | | | | | [phone] | | | | | | | | +--------+---------+ + + + documented as of this encounter Visit Diagnoses Not on filedocumented in this encounter"
--- OUTSIDE RECORDS SUMMARY | ~2019-07-14 | XMS | Encounter Summary ---
Demographics + + + | Address | [address] | | | [place] [address] | + + + | Home Phone [...] + + + | Author | [place] [employer] [facility] | + + + | Organization | [facility] [...] Team Providers + +------+ + | Care Ladle Mechanic Name | Role | Phone | [...] n | Abdoulaye Mailcode: RPB07 | [place], [place] | | | | | [place], [place] | [address] | | | | | [address] | | | | | | [phone] | | | +--------+ + + + [...] | | 2019 | Visit | | [address] | | | | | | [address] | | | | | | [place] | | | | | | [address] | | | | | | [phone] | | | | | | | | +--------+---------+ + + + documented as of this encounter Visit Diagnoses Not on filedocumented in this encounter"
--- OUTSIDE RECORDS SUMMARY | ~2019-07-14 | XMS | Encounter Summary ---
Demographics + + + | Address | [address] | | | [place] [address] | + + + | Home Phone [...] Providers + +------+ + | Care Manager Activities Name | Role | Phone | + [...] | | 2019 | Visit | | [address] | | | | | | [address] | | | | | | [place], [place] | | | | | | [address] | | | | | | [phone] | | | | | | | [...]
--- OUTSIDE RECORDS SUMMARY | ~2019-07-14 | XMS | Encounter Summary ---
Demographics + + + | Address | [address] | | | [place] [address] | + + + | Home Phone | | + + + | Preferred Language | Unknown | + + + | Marital Status | Single | + + + | Caodaism Affiliation | NON | + + + | Race | or | + + + | Ethnic Group | Not or | + + + Author + + + | Author | [place] [employer] [facility] | + + + | Organization | [facility] | + + + | Address | Unknown | + + + | Phone | Unavailable | + + + Support + + +---------+ + | Name | Relationship | Address | Phone | + + +---------+ + | Alexandria Dixon | ECON | Unknown | | + + +---------+ + Care Team Providers + +------+ + | Care Unloader Name | Role | Phone | + +------+ + | No Pcp Per Patient | PCP | Unavailable | + +------+ + Encounter Details +--------+ + + + + | Date | Type | Department | Care Team | Description | +--------+ + + + + | 09/03/ | MyChart | Neurosurgery at | Jaclyn Crawford, | RE: Medical Records | | 2011 | Encounter | [facility] [address] | [address] | | | | | Ave Mailcode: CH8N | [address] | | | | | [facility] | [place], [place] | | | | | and Healing, | [address] | | | | | [place] [address] | [phone] | | | | | [place], [place] | | | | | | [address] | | | | | | [phone] | | | +--------+ + + + [...] Rd | | | | | | [place], [place] | | | | | | [address] | | | | | | [phone] | | | | | | | | +--------+---------+ + + + documented as of this encounter Visit Diagnoses Not on filedocumented in this encounter"
--- OUTSIDE RECORDS SUMMARY | ~2019-07-14 | XMS | Encounter Summary ---
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 | [place], [place] | [place], [place]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 | Phone: | Phone: | | | | | ([facility]) | [phone] | [phone] | | | | | Glucocortico | Fax: | Fax: | | | | | id | [phone] | [phone] | | | | | deficiency | | | | | | | (HCC) | | | | | | | 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 | | | | | | | ([facility]) | | | | | | | Procedures | | | | | | | ID EST | | | | | | [...] [address] | Cathie, | ([facility]) (Primary Dx); | | | | Ave Mailcode: CH8N | DNP,SUPERVISOR SEWING ROOM,[place] [address] | 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 At this visit; Symptoms and Complaints: Is [...] CREATININE PLASMA (LAB) 0.70-1.30 mg/dL EGFR - AUSTRIAN >60 mL/min EGFR NON -AUSTRIAN >60 mL/min SODIUM, PLASMA (LAB) 136-145 mmol/L [...] PLASMA (LAB) 0.70-1.30 mg/dL 0.81 EGFR - AUSTRIAN >60 mL/min >60 EGFR NON -AUSTRIAN >60 mL/min >60 SODIUM, PLASMA (LAB) 136-145 [...] CREATININE PLASMA (LAB) 0.70-1.30 mg/dL EGFR - AUSTRIAN >60 mL/min EGFR NON -AUSTRIAN >60 mL/min SODIUM, PLASMA (LAB) 136-145 mmol/L [...] PLASMA (LAB) 0.70-1.30 mg/dL 0.95 EGFR - AUSTRIAN >60 mL/min >60 EGFR NON -AUSTRIAN >60 mL/min >60 SODIUM, PLASMA (LAB) 136-145 [...] mths 05/25. With labs CATHIE FIELDS DNP, SUPERVISOR SEWING ROOM, [place] Dough Machine Operator [facility] [address] [facility] [place] [address] Component Latest Ref Rng 11/16/2015 11/16/2015 11/16/2015 11/16/2015 2:00 PM 2:00 PM 2:00 PM 2:00 PM GLUCOSE, PLASMA (LAB) 60-99 mg/dL BUN, PLASMA (LAB) 6-20 mg/dL CREATININE PLASMA (LAB) 0.70-1.30 mg/dL EGFR - AUSTRIAN >60 mL/min EGFR NON -AUSTRIAN >60 mL/min SODIUM, PLASMA (LAB) 136-145 mmol/L [...] PLASMA (LAB) 0.70-1.30 mg/dL 0.78 EGFR - AUSTRIAN >60 mL/min >60 EGFR NON -AUSTRIAN >60 mL/min >60 SODIUM, PLASMA (LAB) 136-145 [...] in 6 mths. 05/25 CATHIE FIELDS DNP, SUPERVISOR SEWING ROOM, [place] Dough Machine Operator [facility] [address] [facility] [place] [address] 3. Vitamin D level remains in insufficient [...] [address]anner | | | | | | [place], [place] | | | | | | [address] | | | | | | [phone] | | | | | | | [...] | + + + + + | [facility] | [address] | [place] [address] | | | SERVICES, VITALY | KIMO [...] LABORATORY | [address] | [place] [address] | | | SERVICES, SPECIAL | PARK [...] | + + + + + | [facility] | [address] | [place] [address] | | | SERVICES, CORE | KIMO [...] + | [facility] - | [address] | [place] [address] | | | [facility] | | | | + + + [...] | | | this test in the [facility] | | | | | | Laboratory Test | | | | | | Directory | | | | | | ([employer]).Performed | | | | | | by [address] | | | | | | Michi Pickens, [facility] [place] | | | | | | [address] | | | | | | [phone].[employer]. | | | | | | [facility], Dariel Tobin, | | | | | [...] [facility] | [address] | [place], [place] | | | UN[facility] | | [address] | | + + + + + [...] + | [place] [facility] - | [address] | [place] [address] | | | [facility] | | | | + + + [...] [facility] | [address] | [place] [address] | | | SERVICES, CORE | KIMO [...] | | | LABORATORY | | | AUSTRIAN | | | SERVICES, | | | [...] MIRTHA WOODS | [address] | [place] [address] | | | SERVICES, CORE | KIMO [...] + + | Diabetes insipidus ([facility]) Diabetes insipidus | + + | 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
--- OUTSIDE RECORDS SUMMARY | ~2019-07-14 | XMS | Encounter Summary ---
Demographics + + + | Address | [address] | | | [place] [address] | + + + | Home Phone [...] + + + | Author | [place] [employer] [facility] | + + + | Organization | [facility] [...] Team Providers + +------+ + | Care Can Solderer Name | Role | Phone | + [...] | | | | | adenoma | DNP,METAL WORKER,[place] | [address] | | | | | ([facility]) | [address] | Ave | | | | | Growth | Ave | [place], [place] | | | | | hormone | [place], [place] | [address] | | | | | deficiency | [address] | | | | | | ([facility]) | Phone: | | | | | | Diabetes | [phone] | | | | | | insipidus | Fax: | | | | | | ([facility]) | [phone] | | | | | | Hypogonadism | | | | | | | male | | | | | | | Hypothyroid | | | | | | | 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 | | | | | | | y ([facility]) | | | | | [...] Adenoma | | 2008 | Visit | [facility] [address] | [place], | ([facility]); 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Ave Mailcode: CH8N | DNP,METAL WORKER,[place] [address] | Hormone Deficiency | | | | [facility] | [address] [place], | ([facility]); 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, | [place] [address] | Insipidus ([facility]); | | | | Building [address] | [phone] | Hypogonadism Male; | | | | [place], [place] | | Hypothyroid; Adrenal | | | | [address]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 ([facility]) | | | | [phone] | | | +--------+---------+ + + + [...] Rd | | | | | | [place], [place] | | | | | | [address] | | | | | | [phone] | | | | | | | [...] + + | Cortisol Reference Ranges | [facility] | | AM Reference Range: 7.0 - 23.0 ug/dl | DEPARTMENT OF | | PM Reference Range: Less than 10.0 ug/dl | PATHOLOGY | | RLB ([address] [facility]) | | | [facility] [address] | | | [place] [address] | | | | | + + + + + + + + | Performing | Address | City/State/Zipcode | Phone Number | | Organization | | | | + + + + + | [facility] | [address] | [place] [address] | | | PATHOLOGY | [address] | | | + + + + + | [facility] | [address] | [place] [address] | | | PATHOLOGY | [address] [...] MIRTHA | | RLB ([address] [facility]) [place] | DEPARTMENT OF | | [place] [address] | PATHOLOGY | | [place] [address] | | + + + + + + + + | Performing | Address | City/State/Zipcode | Phone Number | | Organization | | | | + + + + + | [facility] | [address] | [place] [address] | | | PATHOLOGY | [address] | | | + + + + + | [facility] | [address] | [place] [address] | | | PATHOLOGY | [address] [...] At | + + + | RLB ([address] [facility]) Reggie | MIRTHA | | [place] [address] [facility] | DEPARTMENT OF | | [place] [address] | PATHOLOGY | + + + + + + + + | Performing | Address | City/State/Zipcode | Phone Number | | Organization | | | | + + + + + | [facility] DEPARTMENT OF | [address] | [place] [address] | | | PATHOLOGY | [address] | | | + + + + + | [facility] DEPARTMENT OF | [address] | [place] [address] | | | PATHOLOGY | [address] [...] At | + + + | RLB ([address] [facility]) Reggie | MIRTHA | | [facility] [address] [facility] | DEPARTMENT | | [place] [address] | PATHOLOGY | + + + + + + + + | Performing | Address | City/State/Zipcode | Phone Number | | Organization | | | | + + + + + | [facility] DEPARTMENT OF | [address] | [place] [address] | | | PATHOLOGY | [address] | | | + + + + + | [place] DEPARTMENT OF | [address] | [place] [address] | | | PATHOLOGY | [address] [...] At | + + + | [facility] ([facility] Reggie | MIRTHA | | [facility] [place] [address] [facility] | DEPARTMENT OF | | [place] [address] | PATHOLOGY | + + + + + + + + | Performing | Address | City/State/Zipcode | Phone Number | | Organization | | | | + + + + + | [facility] DEPARTMENT OF | [address] | [place] [address] | | | PATHOLOGY | [address] | | | + + + + + | [facility] DEPARTMENT OF | [address] | [place] [address] | | | PATHOLOGY | [address] [...] At | + + + | [facility] ([facility] Reggie | MIRTHA | | [facility] [place] [address] [facility] | DEPARTMENT OF | | [place] [address] | PATHOLOGY | + + + + + + + + | Performing | Address | City/State/Zipcode | Phone Number | | Organization | | | | + + + + + | [facility] DEPARTMENT OF | [address] | [place] [address] | | | PATHOLOGY | [address] | | | + + + + + | [facility] | [address] | [place] [address] | | | PATHOLOGY | [address] [...] At | + + + | RLB ([address] [facility]) Reggie | MIRTHA | | [place] [address] [facility] | DEPARTMENT OF | | [place] [address] | PATHOLOGY | + + + + + + + + | Performing | Address | City/State/Zipcode | Phone Number | | Organization | | | | + + + + + | [facility] DEPARTMENT OF | [address] | [place] [address] | | | PATHOLOGY | [address] | | | + + + + + | [facility] | [address] | [place] [address] | | | PATHOLOGY | [address] [...] | DEPARTMENT OF | | [place] [address] | PATHOLOGY | | [place] [address] | | + + + + + + + + | Performing | Address | City/State/Zipcode | Phone Number | | Organization | | | | + + + + + | [facility] DEPARTMENT OF | [address] | [place] [address] | | | PATHOLOGY | [address] | | | + + + + + | [facility] DEPARTMENT OF | [address] | [place] [address] | | | PATHOLOGY | [address] [...] 64 | 60 - 99 mg/dL | [facility] | | | PLASMA | | | [...] Performed At | + + + | [id number] Estimated GFR > 60 mL/min/1.73 sq m if non- | [facility] | | Taiwanese [id number] Estimated GFR > 60 mL/min/1.73 sq m if | DEPARTMENT OF | | Taiwanese GFR is estimated using the MDRD equation [...] | + + + + + | [facility] | [address] | [place] [address] | | | PATHOLOGY | [address] | | | + + + + + | [facility] | [address] | [place] [address] | | | PATHOLOGY | [address] [...] ([address] [facility]) | | | [facility] [place] [address] | | | [place] [address] | | | | | + + + + + + + + | Performing | Address | City/State/Zipcode | Phone Number | | Organization | | | | + + + + + | [facility] | [facility] [address] | [place] [address] | | | PATHOLOGY | [address] | | | + + + + + | [facility] DEPARTMENT OF | [facility] | [place] [address] | | | PATHOLOGY | [address] [...] At | + + + | RLB ([facility]) | [facility] | | [facility] [address] | DEPARTMENT | | [place] [address] | PATHOLOGY | + + + + + + + + | Performing | Address | City/State/Zipcode | Phone Number | | Organization | | | | + + + + + | [facility] DEPARTMENT OF | [address] | [place] [address] | | | PATHOLOGY | [address] | | | + + + + + | [facility] | [address] | [place] [address] | | | PATHOLOGY | [address] [...]
--- OUTSIDE RECORDS SUMMARY | ~2019-07-14 | XMS | Encounter Summary ---
Demographics + + + | Address | [address] | | | [place] [address] | + + + | Home Phone | | + + + | Preferred Language | Unknown | + + + | Marital Status | Single | + + + | Pentecostalism Affiliation | NON | + + + | Race | or | + + + | Ethnic Group | Not or | + + + Author + + + | Author | [place] [employer] [facility] | + + + | Organization | [facility] | + + + | Address | Unknown | + + + | Phone | Unavailable | + + + Support + + +---------+ + | Name | Relationship | Address | Phone | + + +---------+ + | Alexandria Dixon | ECON | Unknown | | + + +---------+ + Care Team Providers + +------+ + | Care Gutter Mouth Cutter Name | Role | Phone | + +------+ + | Priscilla Ramírez PA-C | PCP | | + +------+ + Reason for Visit + + + | Reason | Comments | + + + | Referral | left shoulder | + + + Encounter Details +--------+ + + + + | Date | Type | Department | Care Team | Description | +--------+ + + + + | 07/16/ | Abstract | Orthopaedics at | Note, Orthopedics | Referral (left | | 2018 | | [facility] [address] | Clinic | shoulder) | | | | [address] Mailcode: CH12A | | | | | | [facility] | | | | | | and Healing, | | | | | | Building | | | | | | Floor [place], [place] | | | | | | [address] | | | | | | [phone] | | | +--------+ + + + [...] documented as of this encounter Progress Notes Amanda Barclay - 07/16/2018 3:15 PM PST Orthopaedics New Patient Record Check List Procedure Comments Date requested Records/Imaging received? If so, what format? Where? What would you like to be seen for (body part and laterality)? Pain in left shoulder DOI, if applicable? n/a Prior Surgery? No Have you seen anyone for this yet? Yes, when: 07/12/18; where: [facility] Attached MRI Yes, when: 06/18/18; where: [facility] 07/16/18 X-Ray Yes, when: unk; where: [facility] Patient can obtain copy to bring CT No Ultrasound No Other imaging No Type: n/a Insurance to be billed per patient OHP Is this a W/C injury? no If YES, please also complete: .[email or web address] inside referral For Out of State claims, please make patient aware that we do not take Out of State Worker' s Comp unless their claims adjuster supervisor can secure [place] rates. Please advise patient to work directly with their claims adjuster supervisor and if any questions their claims adjuster supervisor can call us back. Are you a current smoker or tobacco user? Yes - patient aware of policy If YES, please let patient know that they must be 4 weeks smoke/tobacco-free, tested and do cumented by PCP before having a surgical consult. Height & Weight, if unable to locate in notes or chart. Last recorded patient height: 04/13/18 1.727 m (5' 8") Wt on (03/29/2018) 122.8 kg (270 lb 11.6 oz) Last 1 Encounter BMI Readings: Date BMI 03/29/2018 41.16 kg/m2 Patient reported height: n/a Patient reported weight: n/a Note: If over provider BMI preference, for REVIEW. Are you diabetic? yes Lab Results Component Value Date A1C 6.0 (H) 07/07/2016 Patient reported A1C: Do you have a referring provider? yes who: Dr. Castrejon How far will you be traveling for this appointment? 4 hours Note: If patient traveling greater than 1 hour, consider coordinating any addition al testing or appointments. Medical Review needed? yes If yes, create referral Reminders: ? Ask patient if they d like to sign up for [employer] ? Don t forget to pull in CareEveryWhere Additional Comments: n/a documented in this encounte r Plan of Treatment +--------+---------+ + + + | Date | Type | Specialty | Care Team | Description | +--------+---------+ + + + | 08/15/ | Office | Cardiology | Zuleika Hernandez, | | | 2019 | Visit | | [address] | | | | | | [address] | | | | | | [place], [place] | | | | | | [address] | | | | | | [phone] | | | | | | | | +--------+---------+ + + + documented as of this encounter Visit Diagnoses Not on filedocumented in this encounter
--- OUTSIDE RECORDS SUMMARY | ~2019-07-14 | XMS | Encounter Summary ---
Demographics + + + | Address | [address] | | | [place] [address] | + + + | Home Phone [...] + + + | Author | [place] [employer] [facility] | + + + | Organization | [facility] | + [...] Team Providers + +------+ + | Care Mat Weaver Name | Role | Phone | + +------+ + | Jinny Bergeron MD | PCP | | + +------+ + Reason for Visit + + + | Reason | Comments | + + + | Pre-Admission | | + + + Encounter Details +--------+ + + + + | Date | Type | Department | Care Team | Description | +--------+ + + + + | 07/07/ | PreAdmit | Cardiothoracic | Ashish Meyer, | Pre-Admission | | 2016 | Orders | Surgery at [facility] [address] | PA-C [address] | | | | | [address] | [address] | | | | | [address] Mailcode: [address] | [place], [place] | | | | | Physician's | [address] | | | | | [place], | [phone] | | | | | [place] [address] | | | | | | [phone] | | | +--------+ + + + [...] | | 2019 | Visit | | [address] | | | | | | [address] | | | | | | [place], [place] | | | | | | [address] | | | | | | [phone] | | | | | | | | +--------+---------+ + + + + + +--------+ + + | Name | Type | Priori | Associated Diagnoses | Order Schedule | | | | ty | | | + + +--------+ + + | PRODUCT - RED CELLS | Lab - Blood | Routin | Mitral valve mass | Ordered: 07/07/2016 | | LEUKOREDUCED | Product | e | | | + + +--------+ + + documented as of this encounter Procedures + +--------+ + + + | Procedure Name | Priori | Date/Time | Associated Diagnosis | Comments | | | ty | | | | + +--------+ + + + | PRODUCT - FRESH | Routin | 07/07/2016 | | Results for this | | FROZEN PLASMA | e | 12:15 PM | | procedure are in the | | | | PST | | results section. | + +--------+ + + + | PRODUCT - FRESH | Routin | 07/07/2016 | Mitral valve mass | Results for this | | FROZEN PLASMA | e | 12:15 PM | | procedure are in the | | | | PST | | results section. | + +--------+ + + + documented in this encounter Results PRODUCT - FRESH FROZEN PLASMA (07/07/2016 12:15 PM PST) + + + + + + | Component | Value | Ref Range | Performed | Pathologist | | | | | At | Signature | + + + + + + | PRODUCT | PLASMA THAWED | | [facility] | | | DESCRIPTION | | | LABORATORY | | | | | | SERVICES, | | | | | | TRANSFUSION | | | | | | MEDICINE | | + + + + + + | PRODUCT | [id number] | | [facility] | | | UNIT # | | | LABORATORY | | | | | | SERVICES, | | | | | | TRANSFUSION | | | | | | MEDICINE | | + + + + + + | UNIT ABO | A | | [facility] | | | | | | LABORATORY | | | | | | SERVICES, | | | | | | TRANSFUSION | | | | | | MEDICINE | | + + + + + + | UNIT RH | POS | | [facility] | | | | | | LABORATORY | | | | | | SERVICES, | | | | | | TRANSFUSION | | | | | | MEDICINE | | + + + + + + | STATUS OF | Returned to Blood Bank | | [facility] | | | UNIT | | | LABORATORY | | | | | | SERVICES, | | | | | | TRANSFUSION | | | | | | MEDICINE | | + + + + + + | EXPIRATION | [id number] | | [facility] | | | DATE | | | LABORATORY | | | | | | SERVICES, | | | | | | TRANSFUSION | | | | | | MEDICINE | | + + + + + + | BLOOD TYPE | [id number] | | [facility] | | | BARCODE | | | LABORATORY | | | | | | SERVICES, | | | | | | TRANSFUSION | | | | | | MEDICINE | | + + + + + + | BLOOD | [id number] | | [facility] | | | PRODUCT | | | LABORATORY | | | CODE | | | SERVICES, | | | [...] + + | [facility] | [address] | [place] [address] | | | SERVICES, | [address] | | | | TRANSFUSION MEDICINE | | | | + + + + + PRODUCT - FRESH FROZEN PLASMA (07/07/2016 12:15 PM PST) + + + + + + | Component | Value | Ref Range | Performed | Pathologist | | | | | At | Signature | + + + + + + | PRODUCT | PLASMA THAWED | | [facility] | | | DESCRIPTION | | | LABORATORY | | | | | | SERVICES, | | | | | | TRANSFUSION | | | | | | MEDICINE | | + + + + + + | PRODUCT | [id number] | | [facility] | | | UNIT # | | | LABORATORY | | | | | | SERVICES, | | | | | | TRANSFUSION | | | | | | MEDICINE | | + + + + + + | UNIT ABO | A | | [facility] | | | | | | LABORATORY | | | | | | SERVICES, | | | | | | TRANSFUSION | | | | | | MEDICINE | | + + + + + + | UNIT RH | NEG | | [facility] | | | | | | LABORATORY | | | | | | SERVICES, | | | | | | TRANSFUSION | | | | | | MEDICINE | | + + + + + + | STATUS OF | Returned to Blood Bank | | [facility] | | | UNIT | | | LABORATORY | | | | | | SERVICES, | | | | | | TRANSFUSION | | | | | | MEDICINE | | + + + + + + | EXPIRATION | [id number] | | [facility] | | | DATE | | | LABORATORY | | | | | | SERVICES, | | | | | | TRANSFUSION | | | | | | MEDICINE | | + + + + + + | BLOOD TYPE | [id number] | | [facility] | | | BARCODE | | | LABORATORY | | | | | | SERVICES, | | | | | | TRANSFUSION | | | | | | MEDICINE | | + + + + + + | BLOOD | [id number] | | [facility] | | | PRODUCT | | | LABORATORY | | | CODE | | | SERVICES, | | | [...] + + + + + | [facility] | [address] | [place] [address] | | | SERVICES, | [address] | | | | TRANSFUSION MEDICINE | | | | + + + + + documented in this encounter Visit Diagnoses + + | Diagnosis | + + | 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
--- OUTSIDE RECORDS SUMMARY | ~2019-07-14 | XMS | Encounter Summary ---
Demographics + + + | Address | [address] | | | [place] [address] | + + + | Home Phone | | + + + | Preferred Language | Unknown | + + + | Marital Status | Single | + + + | Yazidi Affiliation | NON | + + + | Race | or | + + + | Ethnic Group | Not or | + + + Author + + + | Author | [place] [employer] [facility] | + + + | Organization | [facility] | + + + | Address | Unknown | + + + | Phone | Unavailable | + + + Support + + +---------+ + | Name | Relationship | Address | Phone | + + +---------+ + | Alexandria Dixon | ECON | Unknown | | + + +---------+ + Care Team Providers + +------+ + | Care Body Die Maker Name | Role | Phone | + +------+ + | Priscilla Ramírez PA-C | PCP | | + +------+ + Encounter Details +--------+ + + + + | Date | Type | Department | Care Team | Description | +--------+ + + + + | 07/08/ | Telephone | Cardiology in | Zuleika Hernandez, | | | 2017 | | [facility] | [address] | | | | | [place] at | [address] | | | | | [address] | [place], [place] | | | | | [facility] [address] | [address] | | | | | [place], [place] | [phone] | | | | | [address] | | | | | | [phone] | | | +--------+ + + + [...] | | | | | | [place], [place] | | | | | | [address] | | | | | | [phone] | | | | | | | | +--------+---------+ + + + documented as of this encounter Visit Diagnoses Not on filedocumented in this encounter"
--- OUTSIDE RECORDS SUMMARY | ~2019-07-14 | XMS | Encounter Summary ---
Demographics + + + | Address | [address] | | | [place] [address] | + + + | Home Phone [...] Author + + + | Author | [place] [employer] [facility] | + + + | Organization | [facility] | + + + | Address | Unknown | + + + | Phone | Unavailable | + + + Support + + +---------+ + | Name | Relationship | Address | Phone | + + +---------+ + | Alexandria Dixon | ECON | Unknown | | + + +---------+ + Care Team Providers + +------+ + | Care Electric Sealing Machine Operator Name | Role | Phone | + +------+ + | No Pcp Per Patient | PCP | Unavailable | + +------+ + Encounter Details +--------+ + + + + | Date | Type | Department | Care Team | Description | +--------+ + + + + | 04/05/ | Doorperson | Neurosurgery at | Donnie, | | | 2010 | | [facility] [address] | Cathie | | | | | [place] Mailcode: CH8N | DNP,GROCERY CADDY,[place] [address] | | | | | [facility] | [address] [place], | | | | | and Healing, | [place] [address] | | | | | Building | [phone] | | | | | Floor [place], [place] | | | | | | [address] | | | | | | [phone] | | | +--------+ + + + [...] | | | | | | [place], [place] | | | | | | [address] | | | | | | [phone] | | | | | | | | +--------+---------+ + + + documented as of this encounter Visit Diagnoses Not on filedocumented in this encounter"
--- OUTSIDE RECORDS SUMMARY | ~2019-07-14 | XMS | Encounter Summary ---
Demographics + + + | Address | [address] | | | [place] [address] | + + + | Home Phone [...] + + + | Author | [place] [facility] | + + + | Organization | [facility] | + + + | Address | Unknown | + + + | Phone | Unavailable | + + + Support + + +---------+ + | Name | Relationship | Address | Phone | + + +---------+ + | Alexandria Dixon | ECON | Unknown | | + + +---------+ + Care Team Providers + +------+ + | Care Master Barber Name | Role | Phone | + [...] | | | | | adenoma | DNP,CENTRAL LAB TECHNICIAN,[place] | [address] | | | | | (HCC) | [address] | [address] | | | | | Procedures | Ave | Mailcode: | | | | | MR PITUITARY | [place], [place] | [address] | | | | | [address] | [address] | [place] | | | | | CONTRAST | Phone: | Research | | | | | | [phone] | [place] | | | | | | Fax: | [place], [place] | | | | | | [phone] | [address] | | | | | | | Phone: | | | | | | | [phone] | | | | | | | Fax: | | | | | | | [phone] | +--------+--------+ + + + + Encounter Details +--------+ + + + + | Date | Type | Department | Care Team | Description | +--------+ + + + + | 06/07/ | Manager Urgent Care | Neurosurgery at | Donnie, | Pituitary adenoma | | 2011 | | [facility] [address] | Cathie, | (HCC) (Primary Dx) | | | | Ave Mailcode: CH8N | DNP,CENTRAL LAB TECHNICIAN,[place] [address] | | | | | [facility] | Nura [address], | | | | | and [place], | [place] [address] | | | | | [place] [address] | [phone] | | | | | [place], [place] | | | | | | [address] | | | | | | [phone] | | | +--------+ + + + [...] | | 2019 | Visit | | [address] | | | | | | [address] | | | | | | [place], [place] | | | | | | [address] | | | | | | [phone] | | | | | | | | +--------+---------+ + + + documented as of this encounter Results MR PITUITARY WWO CONTRAST (01/04/2013 12:31 PM PDT) + + + + + [...] | | | | CONTRAST | Pituitary adenoma, | | | | | | compared to prior | | | | | | COMPARISON: MR brain | | | | | | from 05/07/10 TECHNIQUE: | | | | | | Multiplanar | | | | | | multisequence MRI | | | | | | tailored to the | | | | | | pituitary without | | | | | | andwith 20 mL Omniscan | | | | | | intravenous contrast. | | | | | | Dynamic sequence | | | | | | included. FINDINGS: | | | | | | Sella and parasellar: | | | | | | There is a small amount | | | | | | of enhancing tissue | | | | | | within thefloor of the | | | | | | sella, with no discrete | | | | | | nodule. Infundibulum | | | | | | is slightly to theright | | | | | | of midline. Optic | | | | | | chiasm and suprasellar | | | | | | structures are | | | | | | unremarkable.Mucosal | | | | | | thickening in the | | | | | | sphenoid sinus. | | | | | | Parasellar structures | | | | | | are otherwisenormal. | | | | | | Brain: Visualized | | | | | | portions are | | | | | | unremarkable. Soft | | | | | | tissues and marrow: | | | | | | Visualized portions are | | | | | | unremarkable. | | | | | | IMPRESSION:Stable exam | | | | | | with small amount of | | | | | | enhancing tissue within | | | | | | the floor of thesella, | | | | | | with no discrete nodule. | | | | | | Attending | | | | | | Radiologists: BRETT | | | | | | CARLA OSORIOuthor: | | | | | | BRETT OSORIO MD I | | | | | | have personally viewed | | | | | | this procedure/exam, | | | | | | reviewed this report, | | | | | | and madechanges to it | | | | | | where appropriate. | | | | | | Final/Electronically | | | | | | signed / BRETT | | | | | | JO 01/04/2013 | | | | | | 13:58 PM | | | | + + + + + + + + | Specimen | + + | | + + + +---------+ + + | Performing | Address | City[facility] | Phone Number | | Organization | | | | + +---------+ + + | [facility] DEPARTMENT OF | | | | | RADIOLOGY | | | | + +---------+ + + documented in this encounter Visit Diagnoses + + | Diagnosis | + + | Pituitary adenoma (HCC) - Primary Benign neoplasm of pituitary gland and | | craniopharyngeal duct (pouch) | + + documented in this encounter"
--- OUTSIDE RECORDS SUMMARY | ~2019-07-14 | XMS | Encounter Summary ---
Demographics + + + | Address | [address] | | | [place] [address] | + + + | Home Phone [...] + + + | Author | [place] [employer] [facility] | + + + | Organization | [facility] | [...] Team Providers + +------+ + | Care Special Diet Cook Name | Role | Phone | + +------+ + | Priscilla Ramírez PA-C | PCP | | + +------+ + Encounter Details +--------+ + + + + | Date | Type | Department | Care Team | Description | +--------+ + + + + | 01/06/ | Procedure | Radiology/Imaging | | | | 2019 | Pass | Lab at [facility] [address] | | | | | | [address] Mailcode: | | | | | | [address] [facility] | | | | | | Health and Healing, | | | | | | Building [facility] | | | | | | Floor [place], [place] | | | | | | [address] | | | | | | [phone] | | | +--------+ + + + [...] Rd | | | | | | [place], [place] | | | | | | [address] | | | | | | [phone] | | | | | | | | +--------+---------+ + + + documented as of this encounter Visit Diagnoses Not on filedocumented in this encounter"
--- OUTSIDE RECORDS SUMMARY | ~2019-07-14 | XMS | Encounter Summary ---
Demographics + + + | Address | [address] | | | [place] [address] | + + + | Home Phone [...] + + + | Author | [place] [employer] [facility] | + + + | Organization | [facility] [...] Team Providers + +------+ + | Care Scaler Name | Role | Phone | + [...] Description | +--------+--------+ + + + | 12/22/ | Refill | Neurosurgery at | Donnie, | Refill Request | | 2011 | | [facility] [address] | [place], | | | | | [place] Mailcode: CH8N | DNP,COMMUNITY DEVELOPMENT OFFICER,[place] [address] | | | | | [facility] | [address] [place], | | | | | and [facility], | [place] [address] | | | | | Building [address] | [phone] | | | | | [place], [place] | | | | | | [address] | | | | | | [phone] | | | +--------+--------+ + + + [...] | | 2019 | Visit | | [address] | | | | | | [address] | | | | | | [place], [place] | | | | | | [address] | | | | | | [phone] | | | | | | | | +--------+---------+ + + + documented as of this encounter Visit Diagnoses Not on filedocumented in this encounter"
--- OUTSIDE RECORDS SUMMARY | ~2019-07-14 | XMS | Encounter Summary ---
Demographics + + + | Address | [address] | | | [place] [address] | + + + | Home Phone | | + + + | Preferred Language | Unknown | + + + | Marital Status | Single | + + + | Presybeterian Affiliation | NON | + + + | Race | or | + + + | Ethnic Group | Not or | + + + Author + + + | Author | [place] [employer] [facility] | + + + | Organization | [facility] | + + + | Address | Unknown | + + + | Phone | Unavailable | + + + Support + + +---------+ + | Name | Relationship | Address | Phone | + + +---------+ + | Alexandria Dixon | ECON | Unknown | | + + +---------+ + Care Team Providers + +------+ + | Care Glass Blowing Instructor Name | Role | Phone | + +------+ + | Priscilla Ramírez PA-C | PCP | | + +------+ + Reason for Visit + + + | Reason | Comments | + + + | Appointment Question | regarding CTA appointment | + + + Encounter Details +--------+ + + + + | Date | Type | Department | Care Team | Description | +--------+ + + + + | 04/08/ | Telephone | Cardiology General | Zuleika Hernandez, | Appointment Question | | 2017 | | at [facility] [address] | [address] | ( regarding CTA | | | | [address] Mailcode: | [address] | appointment) | | | | [address] for | [place], [place] | | | | | Health and Healing, | [address] | | | | | [facility] | [phone] | | | | | floor [place], [place] | | | | | | [address] | | | | | | [phone] | | | +--------+ + + + [...] Rd | | | | | | [place] | | | | | | [address] | | | | | | [phone] | | | | | | | | +--------+---------+ + + + documented as of this encounter Visit Diagnoses Not on filedocumented in this encounter"
--- OUTSIDE RECORDS SUMMARY | ~2019-07-14 | XMS | Encounter Summary ---
Demographics + + + | Address | [address] | | | [place] [address] | + + + | Home Phone | | + + + | Preferred Language | Unknown | + + + | Marital Status | Single | + + + | Roman Catholic Affiliation | Unknown | + + + | Race | Unknown | + + + | Ethnic Group | Unknown | + + + Author + + + | Author | [facility] | | | and [place] | + + + | Organization | [facility] | | | and [place] [...] Team Providers + +------+ + | Care Choir Teacher Name | Role | Phone | + +------+ + PCP | Unavailable | + +------+ + Encounter Details +--------+ + + + + | Date | Type | Department | Care Team | Description | +--------+ + + + + | 01/01/ | [facility] | [facility] | | | | 2011 | Encounter | MED CTR XRAY [address] | | | | | | [address] | | | | | | [place] [address] | | | | | | [phone] | | | +--------+ + + + [...] 2020 | Visit | | [address] | | | | | | [place] | | | | | | [address] | | | | | | | [...] Performed At | + + + | [facility] Diagnostic Imaging Department | [facility] | | [address] [facility] [address] | [facility] | | UNENHANCED MRI THORACIC SPINE [...] Transcribed Date/Time: | | | 01/02/2012 16:01 Rn Lpn Lvn: <Electronically Signed | | | by Phu Oro MD> 01/02/12 2228 | | + + + + + | Procedure Note | + + | Santhosh, Alonzo Conversion - 09/16/2013 5:25 PM [facility] | | Diagnostic Imaging Department | | [address] [facility] | | | | | | [...] | Transcribed Date/Time: 01/02/2012 16:01 | | Rn Lpn Lvn: | | <Electronically Signed by Phu Oro MD> 01/02/12 2228 | + + + +---------+ + + | Performing | Address | City/State/Zipcode | Phone Number | | Organization | | | | + +---------+ + + | [place] | | | | | [facility] | | | | + +---------+ + + documented in this encounter Visit Diagnoses Not on filedocumented in this encounter"
--- OUTSIDE RECORDS SUMMARY | ~2019-07-14 | XMS | Encounter Summary ---
Demographics + + + | Address | [address] | | | [place] [address] | + + + | Home Phone [...] + + + | Author | [place] [employer] [facility] | + + + | Organization | [facility] | + + + | Address | Unknown | + + + | Phone | Unavailable | + + + Support + + +---------+ + | Name | Relationship | Address | Phone | + + +---------+ + | Alexandria Dixon | ECON | Unknown | | + + +---------+ + Care Team Providers + +------+ + | Care Trimmer Operator Name | Role | Phone | [...] Description | +--------+--------+ + + + | 03/24/ | Refill | Neurosurgery at | Donnie, | Refill Request | | 2018 | | [facility] [address] | [place], | | | | | [place] Mailcode: CH8N | DNP,CRUTCHING CONTRACTOR,[place] [address] | | | | | [facility] | [address] [place], | | | | | and Healing, | [place] [address] | | | | | Building [address] | [phone] | | | | | [place], [place] | | | | | | [address] | | | | | | [phone] | | | +--------+--------+ + + + [...] Rd | | | | | | [place], [place] | | | | | | [address] | | | | | | [phone] | | | | | | | | +--------+---------+ + + + documented as of this encounter Visit Diagnoses + + | Diagnosis | + + | Panhypopituitarism (HCC) Panhypopituitarism | + + documented in this encounter"
--- OUTSIDE RECORDS SUMMARY | ~2019-07-14 | XMS | Encounter Summary ---
Demographics + + + | Address | [address] | | | [place] [address] | + + + | Home Phone | | + + + | Preferred Language | Unknown | + + + | Marital Status | Single | + + + | Sabianist Affiliation | NON | + + + | Race | or | + + + | Ethnic Group | Not or | + + + Author + + + | Author | [place] [employer] [facility] | + + + | Organization | [facility] | + + + | Address | Unknown | + + + | Phone | Unavailable | + + + Support + + +---------+ + | Name | Relationship | Address | Phone | + + +---------+ + | Alexandria Dixon | ECON | Unknown | | + + +---------+ + Care Team Providers + +------+ + | Care Air Traffic Control Specialist Center Name | Role | Phone | + +------+ + | Priscilla Ramírez PA-C | PCP | | + +------+ + Encounter Details +--------+ + + + + | Date | Type | Department | Care Team | Description | +--------+ + + + + | 10/20/ | Ancillary | Registration [address] | Jaclyn [address], | | | 2006 | Registratio | [address] | [address] | | | | [address] | [address] Mailcode: RPB07 | [facility] | | | | | [place], [place] | [place], [place] | | | | | [address] | [address] | | | | | [phone] | [phone] | | | | | | | [...] Rd | | | | | | [place], [place] | | | | | | [address] | | | | | | [phone] | | | | | | | | +--------+---------+ + + + documented as of this encounter Visit Diagnoses Not on filedocumented in this encounter"
--- OUTSIDE RECORDS SUMMARY | ~2019-07-14 | XMS | Encounter Summary ---
Demographics + + + | Address | [address] | | | [place] [address] | + + + | Home Phone [...] + + + | Author | [place] [employer] [facility] | [...] + +------+ + | Care Director Of Content Marketing Name | Role | Phone | + [...] Description | +--------+--------+ + + + | 09/22/ | Refill | Neurosurgery at | Jaclyn Crawford, | Refill Request | | 2013 | | [facility] [address] | [address] | | | | | [place] Mailcode: CH8N | [address] | | | | | [facility] | [place], [place] | | | | | and [place], | [address] | | | | | Building | [phone] | | | | | [place], [place] | | | | | | [address] | | | | | | [phone] | | | +--------+--------+ + + + [...] | | 2019 | Visit | | [address] | | | | | | [address] | | | | | | [place], [place] | | | | | | [address] | | | | | | [phone] | | | | | | | | +--------+---------+ + + + documented as of this encounter Visit Diagnoses Not on filedocumented in this encounter"
--- OUTSIDE RECORDS SUMMARY | ~2019-07-14 | XMS | Encounter Summary ---
Demographics + + + | Address | [address] | | | [place] [address] | + + + | Home Phone | | + + + | Preferred Language | Unknown | + + + | Marital Status | Single | + + + | Gnosticism Affiliation | Unknown | + + + | Race | Unknown | + + + | Ethnic Group | Unknown | + + + Author + + + | Author | [facility] | | | and [place] | + + + | Organization | [facility] | | | and [place] [...] Providers + +------+ + | Care Manager Of Case Name | Role | Phone | + +------+ + PCP | Unavailable | + +------+ + Encounter Details +--------+ + + + + | Date | Type | Department | Care Team | Description | +--------+ + + + + | 11/15/ | Hospital | [facility] | Moiz Raza | | | 2010 | Encounter | MED CTR XRAY [address] | | | | | [place] | [place], [place] | | | | | [place] [address] | [id number] | | | | | [phone] | | | +--------+ + + + [...] 2020 | Visit | | [address] | | | | | | [place] | | | | | | [address] | | | | | | | | +--------+---------+ + + + documented as of this encounter Procedures + +--------+ + + + | Procedure Name | Priori | Date/Time | Associated Diagnosis | Comments | | | ty | | | | + +--------+ + + + | MRI THORACIC SPINE W | | 11/15/2010 | | Results for this | | CONTRAST | | 12:43 PM | | procedure are in the | | | | PDT | | results section. | + +--------+ + + + documented in this encounter Results MRI Thoracic Spine w Contrast (11/15/2010 12:43 PM PDT) + + | Specimen | + + | | + + + + + | Narrative | Performed At | + + + | [facility] Diagnostic Imaging Department | [facility] | | [address] | [facility] | | THORACIC SPINE MR WITH AND | DIAG IMG | | WITHOUT CONTRAST, 11/15/2010 AT 1300 HOURS CLINICAL HISTORY: | | | INTRASPINAL MASS, POSSIBLE CYST. COMPARISON: Noncontrast | | | study October 2010. TECHNIQUE: Sagittal T2; sagittal and | | | transaxial T1 pre and post contrast with fat saturation; | | | postcontrast fat-saturated coronal T1. FINDINGS: Again noted | | | is a subtle contour abnormality of the posterior cord at the T6 | | | level. The CSF space behind the cord at this level is near | | | iso-signal on precontrast T1 and T2. After contrast | | | administration, there is no abnormal enhancement. There is a subtle | | | crescentic differential signal within the dorsal CSF space | | | particularly at the C6 level. This likely is related to CSF | | | pulsation artifact. There is no enhancing lesion. There is no | | | intraspinal solid mass. Findings are most consistent with benign | | | intraspinal arachnoid cyst. There no significant cord compression at | | | this level. There is minimal deviation of the dorsal aspect of | | | the cord. No other abnormal enhancement is appreciated. The | | | remainder of the thoracic spine is unremarkable. IMPRESSION: | | | 1. FINDINGS MOST CONSISTENT WITH BENIGN INTRASPINAL ARACHNOID | | | CYST; NEGATIVE FOR SOLID ENHANCING MASS. Dictated Date/Time: | | | 11/15/2010 16:25 Transcribed Date/Time: 11/16/2010 12:00 | | | Front Office Clerk: <Electronically Signed by Leopoldo Escobar | | | MD Jasson> 11/18/10 0854 | | + + + + + | Procedure Note | + + | Alonzo Trevizo Conversion - 09/16/2013 2:39 PM [facility] | | Diagnostic Imaging Department [address] [facility] [place] | | THORACIC SPINE MR WITH AND WITHOUT CONTRAST, 11/15/2010 | | AT 1300 HOURS CLINICAL HISTORY: INTRASPINAL MASS, POSSIBLE CYST. COMPARISON: | | Noncontrast study October 2010. TECHNIQUE: Sagittal T2; sagittal and transaxial T1 pre | | and post contrast with fat saturation; postcontrast fat-saturated coronal T1. | | FINDINGS: Again noted is a subtle contour abnormality of the posterior cord at the T6 | | level. The CSF space behind the cord at this level is near iso-signal on precontrast T1 | | and T2. After contrast administration, there is no abnormal enhancement. There is a | | subtle crescentic differential signal within the dorsal CSF space particularly at the C6 | | level. This likely is related to CSF pulsation artifact. There is no enhancing | | lesion. There is no intraspinal solid mass. Findings are most consistent with benign | | intraspinal arachnoid cyst. There no significant cord compression at this level. There | | is minimal deviation of the dorsal aspect of the cord. No other abnormal enhancement | | is appreciated. The remainder of the thoracic spine is unremarkable. IMPRESSION: 1. | | FINDINGS MOST CONSISTENT WITH BENIGN INTRASPINAL ARACHNOID CYST; NEGATIVE FOR SOLID | | ENHANCING MASS. Dictated Date/Time: 11/15/2010 16:25 Transcribed Date/Time: | | 11/16/2010 12:00 Front Office Clerk: <Electronically Signed by Leopoldo Spaulding, | | MD> 11/18/10 0854 | |within the dorsal CSF space particularly at the C6 level. This likely is related to CSF pu lsation | |artifact. There is no enhancing lesion. There is no intraspinal solid mass. Findings are most | |consistent with benign intraspinal arachnoid cyst. There no significant cord compression a t this | |level. There is minimal deviation of the dorsal aspect of the cord. No other abnormal enh ancement | |is appreciated. The remainder of the thoracic spine is unremarkable. | | | |IMPRESSION: | |1. FINDINGS MOST CONSISTENT WITH BENIGN INTRASPINAL ARACHNOID CYST; | |NEGATIVE FOR SOLID ENHANCING MASS. | | | |Dictated Date/Time: 11/15/2010 16:25 | |Transcribed Date/Time: 11/16/2010 12:00 | |Front Office Clerk: | |<Electronically Signed by Leopoldo Spaulding MD> 11/18/10 0854 | + + + +---------+ + + | Performing | Address | City/State/Zipcode | Phone Number | | Organization | | | | + +---------+ + + | [place] | | | | | [place] | | | | + +---------+ + + documented in this encounter Visit Diagnoses Not on filedocumented in this encounter"
--- OUTSIDE RECORDS SUMMARY | ~2019-07-14 | XMS | Encounter Summary ---
Demographics + + + | Address | [address] | | | [place] [address] | + + + | Home Phone [...] + + + | Author | [facility] | + + + | Organization | [facility] | + + + | Address | Unknown | + + + | Phone | Unavailable | + + + Support + + +---------+ + | Name | Relationship | Address | Phone | + + +---------+ + | Alexandria Dixon | ECON | Unknown | | + + +---------+ + Care Team Providers + +------+ + | Care Area Development Manager Name | Role | Phone | [...] Description | +--------+--------+ + + + | 09/21/ | Refill | Neurosurgery at | Jaclyn Crawford, | Refill Request | | 2013 | | [facility] [address] | [address] | | | | | [place] Mailcode: CH8N | [address] | | | | [facility] | [place], [place] | | | | | and [place], | [address] | | | | | Building | [phone] | | | | | [place], [place] | | | | | | [address] | | | | | | [phone] | | | +--------+--------+ + + + [...] | | 2019 | Visit | | [address] | | | | | | [address] | | | | | | [place], [place] | | | | | | [address] | | | | | | [phone] | | | | | | | | +--------+---------+ + + + documented as of this encounter Visit Diagnoses Not on filedocumented in this encounter"
--- OUTSIDE RECORDS SUMMARY | ~2019-07-14 | XMS | Encounter Summary ---
Demographics + + + | Address | [address] | | | [place] [address] | + + + | Home Phone [...] + + | Author | [place] [facility] | + + + | Organization | [facility] | + + + | Address | Unknown | + + + | Phone | Unavailable | + + + Support + + +---------+ + | Name | Relationship | Address | Phone | + + +---------+ + | Alexandria Dixon | ECON | Unknown | | + + +---------+ + Care Team Providers + +------+ + | Care Linter Tender Name | Role | Phone | + +------+ + | Priscilla Ramírez PA-C | PCP | | + +------+ + Reason for Visit + + + | Reason | Comments | + + + | Medication Question | RANEXA | + + + Encounter Details +--------+ + + + + | Date | Type | Department | Care Team | Description | +--------+ + + + + | 05/13/ | Telephone | Cardiology in | Zuleika Hernandez, | Medication Question | | 2018 | | [facility] | [address] | ([place]) | | | | [place] at | [facility] | | | | | [place] [address] [address] | [place], [place] | | | | | [address] | [address] | | | | | [place], [place] | [phone] | | | | | [address] | | | | | | [phone] | | | +--------+ + + + [...] | | 2019 | Visit | | [address] | | | | | | [address] | | | | | | [place], [place] | | | | | | [address] | | | | | | [phone] | | | | | | | | +--------+---------+ + + + documented as of this encounter Visit Diagnoses Not on filedocumented in this encounter"
--- OUTSIDE RECORDS SUMMARY | ~2019-07-14 | XMS | Encounter Summary ---
Demographics + + + | Address | [address] | | | [place] [address] | + + + | Home Phone | | + + + | Preferred Language | Unknown | + + + | Marital Status | Single | + + + | Congregational Affiliation | NON | + + + | Race | or | + + + | Ethnic Group | Not or | + + + Author + + + | Author | [place] [facility] | + + + | Organization | [facility] | + + + | Address | Unknown | + + + | Phone | Unavailable | + + + Support + + +---------+ + | Name | Relationship | Address | Phone | + + +---------+ + | Alexandria Dixon | ECON | Unknown | | + + +---------+ + Care Team Providers + +------+ + | Care Hostel Parent Name | Role | Phone | + [...] | | | | | adenoma | DNP,MEDICAL OR SURGICAL INSTRUMENT MAKER,[place] | [address] | | | | | (HCC) | [address] | [address] | | | | | Procedures | Ave | Mailcode: | | | | | [address] | [place], [place] | [address] | | | | | [address] | [address] | [place] | | | | | CONTRAST | Phone: | Research | | | | | | [phone] | [place] | | | | | | Fax: | [place], [place] | | | | | | [phone] | [address] | | | | | | | Phone: | | | | | | | [phone] | | | | | | | Fax: | | | | | | | [phone] | +--------+--------+ + + + + Reason [...] | | | | | adenoma | DNP,MEDICAL OR SURGICAL INSTRUMENT MAKER,[place] | [address] | | | | | ([facility]) | [address] | [address] | | | | | Procedures | Ave | Mailcode: | | | | | [address] | [place], [place] | [address] | | | | | [address] | [address] | [place] | | | | | CONTRAST | Phone: | Research | | | | | | [phone] | [place] | | | | | | Fax: | [place], [place] | | | | | | [phone] | [address] | | | | | | | Phone: | | | | | | | [phone] | | | | | | | Fax: | | | | | | | [phone] | +--------+--------+ + + + + Encounter Details +--------+ + + + + | Date | Type | Department | Care Team | Description | +--------+ + + + + | 01/04/ | Hospital | Radiology/Imaging | | | | 2012 | Encounter | Lab at [facility] [address] | | | | | [address] [place] Mailcode: | | | | | | [address] [place] [facility] | | | | | | [facility], | | | | | | Building [address], [facility] | | | | | | Floor [facility] [place] | | | | | | [address] | | | | | | [phone] | | | +--------+ + + + [...] | | 2020 | Visit | | [address] | | | | | | [address] | | | | | | [place], [place] | | | | | | [address] | | | | | | [phone] | | | | | | | | +--------+---------+ + + + documented as of this encounter Procedures + +--------+ + + + | Procedure Name | Priori | Date/Time | Associated Diagnosis | Comments | | | ty | | | | + +--------+ + + + | MRI PITUITARY WWO | Routin | 01/04/2013 | Pituitary adenoma | Results for this | | CONTRAST | e | 12:31 PM | (HCC) | procedure are in the | | | | PDT | | results section. | + +--------+ + + + | CREATININE, POC | Routin | 01/04/2013 | | Results for this | | | e | 12:02 PM | | procedure are in the | | | | PDT | | results section. | + +--------+ + + + documented in this encounter Results MR PITUITARY WWO CONTRAST [...] Final/Electronically | | | | | | elizabet / BRETT | | | | | [...] | | + +---------+ + + | [facility] OF | | | | | RADIOLOGY | | | | + +---------+ + + ROUTINE CHEMISTRY TESTS (RADIOLOGY), POC (01/04/2013 12:02 PM PDT) + +-------+ + + + | Component | Value | Ref Range | Performed | Pathologist | | | | | At | Signature | + +-------+ + + + | CREATININE, | 0.8 | 0.7 - 1.3 mg/dL | [facility], | | | POC | | | [...] + + + + | [facility] | [address] [facility] [address] | [place] [address] | | | OF CARE TESTS | | | | + + + + + documented in this encounter Visit Diagnoses + + | Diagnosis | + + | Pituitary adenoma (HCC) Benign neoplasm of pituitary gland and craniopharyngeal duct | | (pouch) | + + documented in this encounter"
--- OUTSIDE RECORDS SUMMARY | ~2019-07-14 | XMS | Encounter Summary ---
Demographics + + + | Address | [address] | | | [place] [address] | + + + | Home Phone [...] Team Providers + +------+ + | Care Compressor Assembler Name | Role | Phone | + +------+ + PCP | Unavailable | + +------+ + Encounter Details +--------+ + + + + | Date | Type | Department | Care Team | Description | +--------+ + + + + | 09/16/ | Procedure - | | Record, Operation | Operative Report | | 2005 | | | | | | | Transcribed | | [...] [address] | | | | | | [place], [place] | | | | | | [address] | | | | | | [phone] | | | | | | | | +--------+---------+ + + + documented as of this encounter Procedures + +--------+ + + + | Procedure Name | Priori | Date/Time | Associated Diagnosis | Comments | | | ty | | | | + +--------+ + + + | OPERATION RECORD | | 09/16/2005 | | Results for this | | | | | | procedure are in the | | | | | | results section. | + +--------+ + + + | OPERATION RECORD | | 09/15/2005 | | Results for this | | | | | | procedure are in the | | | | | | results section. | + +--------+ + + + documented in this encounter Results OPERATION RECORD (09/16/2005) + + | Transcriptions | + + | Interface, Collective Bargaining Specialist In - 10/04/2005 2:04 AM PST | | [id number] | | [id number] TOREY TRIVEDI V | | | | Date: 09/15/2005 | | | | Attending Surgeon: Reuben Styles M.D. | | | | Research Investigator(s): Scott Munroe M.D. | | | | Preoperative Diagnosis(es): | | Pituitary adenoma. | | | | Postoperative Diagnosis(es): | | Pituitary adenoma. | | | | Procedures Performed: | | 1. Transsphenoidal resection of pituitary adenoma using intraoperative | | MRI and frameless stereotactic navigation. | | 2. Microdissection using intraoperative microscope. | | 3. Placement of lumbar drain. | | | | Anesthesia: | | General endotracheal anesthesia. | | | | Estimated Blood Loss: | | Minimal. | | | | Sponge and Needle Counts: | | Correct at the end of the case. | | | | Specimens: | | Both tumor and dura were sent to Pathology for permanent section. | | | | Indications: | | Mr. Tyler is a 25-year-old male who presents with history of headaches. | | He was found to have pituitary adenoma. He is being indicated for | | resection. | | | | Findings: | | Intraoperative findings include extremely thick and hard dura. Postop | | anesthesia was administrated decompressing the optic chiasm. There was no | | CSF leak. | | | | Procedure: | | The patient was identified in the preoperative area. The patient was | | transferred via gurney back to the operating room where he was placed | | supine on the operating table. At this time, general endotracheal | | anesthesia was induced, and preoperative antibiotics were administered. | | The patient was then rolled to the right lateral decubitus position where a | | 14-gauge Tuohy needle was used to access the thecal space. Lumbar drain | | cath was then passed to a depth of approximately 20 cm and secured to the | | skin. The patient was then rolled back into a supine position, and his | | head was secured in the [place] headholder in mild lateral flexion to the | | patient's left. Preliminary scanning and frameless stereotactic | | registration were performed at this time. Once we were satisfied, the nose | | was prepped and draped in the standard surgical fashion. Head and Neck | | Surgery performed the approach to the sphenoid sinus and sella through the | | patient's left nostril. The sella floor was opened with an osteotome. The | | dura at this time was noted to be fairly thick, almost to the point where | | it was difficult to cut with a ( ) knife. Once the | | craniotomy was generated and opened with the Kerrison rongeurs, the dura | | was opened in a cruciate fashion with the knife. Ring curettes and Barnard | | dissectors were used to explore the sella circumferentially. We did not | | find much tumor, and we were able to visualize normal gland. There was no | | CSF leak. Both tumor and dura were sent for permanent section. Postop | | scanning was then performed which revealed deep compression of the chiasm. | | Head and Neck Surgery then performed a closure. The patient was extubated | | and transferred to the PACU in stable condition. The lumbar drain was then | | removed at the conclusion of the case. | | | | | | | | | | Scott Munroe M.D. Reuben Styles M.D. | | | | / HS | | [id number] / [id number] / [id number] / [id number] | | | | | | E: 09/17/2005 cmw | | | | | | Electronically signed by Scott Munroe 10-02-2005 03:22:06 PM | | Electronically signed by Reuben Styles 10-03-2005 04:15:14 PM | + + OPERATION RECORD (09/15/2005) + + | Transcriptions | + + | Interface, Collective Bargaining Specialist In - 09/19/2005 2:05 AM PST | | [id number] | | [id number] TOREY FAROOQ Luz | | | | Date: 09/15/2005 | | | | Attending Surgeon: Misael West M.D. | | | | Research Investigator(s): Zander Esquivel M.D. | | | | | | Preoperative Diagnosis(es): | | Pituitary macroadenoma. | | | | Postoperative Diagnosis(es): | | Pituitary macroadenoma. | | | | Procedures Performed: | | Transseptal, transsphenoidal approach to the sella turcica. | | | | Anesthesia: | | General endotracheal anesthesia. | | | | Complications: | | None. | | | | Specimens: | | | | Indications: | | Mr. Connolly is a 25-year-old male who was found to have a pituitary | | macroadenoma during workup for headache. The patient had additionally | | being complaining of intermittent blurry vision. An MRI study revealed a | | lesion within the pituitary that measured approximately 1 to 1.5 cm in size | | and compressed the optic chiasm. | | | | Findings: | | The septum was midline with minimal deviation. There were no perforations | | noted with either septal flap. There was no intraoperative CSF leak | | noted. | | | | Procedure: | | Mr. Connolly was brought from the preoperative area to the Operative Suite. | | He was placed supine on the operating room table. A pause was held to | | ensure that proper patient, surgical site, and procedure were identified | | correctly. A general endotracheal anesthesia was instituted per the | | anesthesiologist. All bony prominences were padded adequately. The | | Neurosurgical Service placed the patient in head fixation and properly | | arranged the MRI stereotactic guidance. At this point, the patient was | | handed over to the Otolaryngology Service. The septum was infused with 1% | | lidocaine with 1:100,000 epinephrine bilaterally to approximately 3 cc. | | Cocaine-soaked pledgets were placed bilaterally. The patient was then | | prepped and draped in the usual sterile fashion. A left-sided | | hemitransfixion incision was made . A left-sided submucoperichondrial flap | | was then elevated. This was continued posteriorly until the | | bony-cartilaginous junction was reached. At this point, the septum was | | transected, and a right-sided submucoperichondrial flap was elevated | | posteriorly. The intervening bony septum was then slowly bitten away with | | the Ricardo forceps. The dissection continued posteriorly until the prow | | of the sphenoid sinus was reached. At this point, a self-retaining nasal | | speculum was placed. The prow was then slowly bitten away with revealing | | entry into the sphenoid sinus. The anterior wall was serially taken down | | with Kerrison. The intersinus septum was removed. At this point, the | | image stereotactic guidance demonstrated proper placement within the | | sphenoid sinus with adequate exposure. The case was then handed over to | | the Neurological Service. The resection of pituitary adenoma was | | undertaken. Please see their dictation for details. There was no | | intraoperative leak noted per the Neurosurgical Service. The case was then | | handed back to the Otolaryngology Service. The septal leaflets were then | | brought together using the 4-0 plain gut suture in a quilting fashion. The | | posterior nasopharynx was then suctioned bilaterally. The left-sided | | hemitransfixion was closed with a 4-0 chromic suture in a running fashion. | | At this point, the case was handed back over to the Neurosurgical Service. | | The patient was taken out of head fixation, awakened, extubated, and | | brought to the Postanesthesia Care Unit in stable condition. | | | | The scrub and needle count were certified as correct by the surgical | | staff. | | | | Pursuant to Federal Medicare Billing Regulations, I certify Dr. Douglas | | Jenna was scrubbed and present for the critical portions of the case. | | | | | | | | | | Zander Esquivel M.D. | | | | | | | | Misael West M.D. | | | | ZS / HS | | [id number] / [id number] / [id number] / | | | | | | | | | | | | Electronically signed by Misael West 09-18-2005 12:20:20 PM | + + documented in this encounter Visit Diagnoses Not on filedocumented in this encounter"
--- OUTSIDE RECORDS SUMMARY | ~2019-07-14 | XMS | Encounter Summary ---
Demographics + + + | Address | [address] | | | [place] [address] | + + + | Home Phone [...] Author + + + | Author | [place] [employer] [facility] | + + + | Organization | [facility] | + + + | Address | Unknown | + + + | Phone | Unavailable | + + + Support + + +---------+ + | Name | Relationship | Address | Phone | + + +---------+ + | Alexandria Dixon | ECON | Unknown | | + + +---------+ + Care Team Providers + +------+ + | Care Trust Accounts Supervisor Name | Role | Phone | [...] Description | +--------+--------+ + + + | 11/29/ | Refill | Neurosurgery at | Donnie, | Refill Request | | 2013 | | [facility] [address] | [place], | | | | | [place] Mailcode: CH[address] | DNP,LACQUER MACHINE FEEDER,[place] [address] | | | | | [facility] | [address] [place], | | | | | and Healing, | [place] [address] | | | | | [address] | [phone] | | | | | [place], [place] | | | | | | [address] | | | | | | [phone] | | | +--------+--------+ + + + [...] | | | | | | [place], [place] | | | | | | [address] | | | | | | [phone] | | | | | | | | +--------+---------+ + + + documented as of this encounter Visit Diagnoses Not on filedocumented in this encounter"
--- OUTSIDE RECORDS SUMMARY | ~2019-07-14 | XMS | Encounter Summary ---
Demographics + + + | Address | [address] | | | [place] [address] | + + + | Home Phone [...] + + | Author | [place] [employer] [facility] | + + + | Organization | [facility] | [...] Providers + +------+ + | Care Medical Office Secretary Name | Role | Phone | + +------+ + | No Pcp Per Patient | PCP | Unavailable | + +------+ + Encounter Details +--------+ + + + + | Date | Type | Department | Care Team | Description | +--------+ + + + + | 05/08/ | Orders Only | Endocrinology | Jaclyn Crawford, | 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 | | Pituitary Disease | [address] | Pituitary Gland and | | | | Clinic [address] | [address] | Craniopharyngeal | | | | [address] | [place], [place] | Duct (Pouch) (HCC) | | | | Mailcode: [id number] | [address] | (Primary Dx) | | | | [facility] | [phone] | | | | | [address] | | | | | | [place], [place] | | | | | | [address] | | | | | | [phone] | | | +--------+ + + + [...] | | 2020 | Visit | | [address] | | | | | | [address] | | | | | | [place], [place] | | | | | | [address] | | | | | | [phone] | | | | | | | | +--------+---------+ + + + + +------+--------+ + + | Name | Type | Priori | Associated Diagnoses | Order Schedule | | | | ty | | | + +------+--------+ + + | [facility] COLLECT, | Lab | Routin | Benign Neoplasm of | Ordered: 05/08/2006 | | VENIPUNCTURE | | e | Pituitary Gland and | | | | | | Craniopharyngeal | | | | | | Duct (Pouch) (HCC) | | + +------+--------+ + + documented as of this encounter Procedures + +--------+ + + + | Procedure Name | Priori | Date/Time | Associated Diagnosis | Comments | | | ty | | | | + +--------+ + + + | BASIC METABOLIC SET | Routin | 05/08/2006 | Benign Neoplasm of | Results for this | | (NA, K, CL, TCO2, | e | 3:30 PM | Pituitary Gland and | procedure are in the | | BUN, CR, GLU, CA) | | PDT | Craniopharyngeal | results section. | | | | | Duct (Pouch) (HCC) | | + +--------+ + + + | INSULIN GROWTH | Routin | 05/08/2006 | Benign Neoplasm of | Results for this | | FACTOR-1, SERUM | e | 3:30 PM | Pituitary Gland and | procedure are in the | | | | PDT | Craniopharyngeal | results section. | | | | | Duct (Pouch) (HCC) | | + +--------+ + + + documented in this encounter Results BASIC METABOLIC SET (05/08/2006 3:30 PM PDT) [...] Performed At | + + + | [id number] Estimated GFR > 60 mL/min/1.73 sq m if non- | [facility] | | [id number] Estimated GFR > 60 mL/min/1.73 sq m [...] | + + + + + | [facility] | [address] [facility] | [place] [address] | | | PATHOLOGY | [address] | | | + + + + + | [facility] | [address] [facility] | [place] [address] | | | PATHOLOGY | [address] [...] + + + | [facility] | [address] | [place] [address] | | | LABORATORY | | | [...]
--- OUTSIDE RECORDS SUMMARY | ~2019-07-14 | XMS | Encounter Summary ---
Demographics + + + | Address | [address] | | | [place] [address] | + + + | Home Phone [...] + + + | Author | [place] [employer] [facility] | + + + | Organization | [facility] | + + + | Address | Unknown | + + + | Phone | Unavailable | + + + Support + + +---------+ + | Name | Relationship | Address | Phone | + + +---------+ + | Alexandria Dixon | ECON | Unknown | | + + +---------+ + Care Team Providers + +------+ + | Care Community Health Nursing Director Name | Role | Phone | [...] Cardiology | Diagnoses | Mitch, | Car Echo | | | | | Mitral | Ashish Hernandez PA-C | [facility] [address] | | | | | valve mass | [address] | [address]antoja | | | | | Procedures | Shanna Pantoja | [address] | | | | | TRANSTHORACI | [address] | Mailcode: | | | | | C | [place] | [id number] | | | | | ECHOCARDIOGR | [address] | [address] | | | | | AM, ADULT | Phone: | Building | | | | | | [phone] | [place], [place] | | | | | | Fax: | [address] | | | | | | [phone] | Phone: | | | | | | | [phone] | +--------+--------+ + + + + Encounter Details +--------+ + + + + | Date | Type | Department | Care Team | Description | +--------+ + + + + | 07/10/ | Drill Press Set Up Operator | Cardiothoracic | Ashish Meyer, | Mitral valve mass | | 2016 | | Surgery at [facility] [address] | PA-C [address] | (Primary Dx) | | | | [address] | [address] | | | | | [address] Mailcode: L[address] | [place], [place] | | | | | Physician's | [address] | | | | | Cristiana [place], | [phone] | | | | | [place] [address] | | | | | | [phone] | | | +--------+ + + + [...] | | 2019 | Visit | | [address] | | | | | | [address] | | | | | | [place], [place] | | | | | | [address] | | | | | | [phone] | | | | | | | [...] + + documented in this encounter Results TRANSTHORACIC ECHOCARDIOGRAM, ADULT (08/14/2016 11:18 AM PST) + + + + + + | Component | Value | Ref Range | Performed | Pathologist | | | | | At | Signature | + + + + + + | GINGER EF | 59 | | [facility] | | | | | | OF | | | | | | CARDIOLOGY | | + + + + + + | EJECTION | 60 to 65 | | [facility] | | | FRACTION | | | OF | | | | | | CARDIOLOGY | | + + + + + + | LA | 4.4 | | [facility] | | | DIMENSION | | | OF | | | | | | CARDIOLOGY | | + + + + + + | LVIDD | 4.8 | | [facility] | | | | | | OF | | | | | | CARDIOLOGY | | + + + + + + | MV A VMAX | 0.8 | | [facility] | | | | | | OF | | | | | | CARDIOLOGY | | + + + + + + | MV E? | 0.1 | | [facility] | | | | | | OF | | | | | | CARDIOLOGY | | + + + + + + | MV E VMAX | 1.0 | | [facility] | | | | | | OF | | | | | | CARDIOLOGY | | + + + + + + | RV TAPSE | 2.3 | | [facility] | | | | | | OF | | | | | | CARDIOLOGY | | + + + + + + | RV TDI S? | 15.0 | | [facility] | | | | | | OF | | | | | | CARDIOLOGY | | + + + + + + | EJECTION | 62.5 | % | [facility] | | | FRACTION | | | OF | | | RANGE MEAN | | | CARDIOLOGY | | | VALUE | | | | | + + + + + + + + | Specimen | + + | | + + + + + | Narrative | Performed At | + + + | [facility] | [facility] | | [facility] Adult Echocardiography Laboratory [address] | CARDIOLOGY | | [place], [place] [address] Ph: | | | Pt Name: FAROOQ BAINS | | | Study Date/Time 08/14/2016 / 11:18:33 AMMRN: [id number] | | | Most recent prior: 07/08/2016Acc #: [id number] | | | No. previous echos: 1 MAURA ORDOB: 1980 36 years | | | Heart Rate: 84 bpmHeight: 68.0 in | | | Blood Pressure: 162/84 mm/HgWeight: 270.0 lb | | | Gender: MBSA: 2.32 m2 | | | Order ID: [id number] [employer] Shop Foreman: Eric Carrion | | | RDCSSonographer 2: Nguyen Pettit [facility] Referring Provider: Ashish Hernandez | | | KennedyPatient Location: OPModalities Performed: 2D, Color flow, | | | Spectral Doppler and Definity contrast.Study Quality: This was a | | | technically difficult study, but image quality improved with echo | | | contrast.Exam Indication: Evaluate Mitral Valve MassHistory: 2010 NE, | | | LCx stent and 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 The left ventricular cavity size is normal. | | | 2. The LV ejection fraction is normal. | | | | | | | | | 3. Right ventricular size, | | | thickness and function are normal. 4. No | | | significant valvular abnormalities seen. | | | 5. There is a small 6mm x 3mm independently mobile | | | echodensity associated with posterior mitral leaflet subchordal | | | apparatus. There is associated mitral annular calcification. | | | Differentials include flail subchordal apparatus, | | | thrombus, vegetation. Clinical correlation required. | | | 6. Compared to the most recent exam dated, 07/08/2016, MAURA does | | | not show an LV mass or mitral valve disease. | | | | | | | | | | | | + | | | + Description of Findings: Cardiac Rhythm: Normal sinus | | | rhythm.Left Ventricle: The left ventricular cavity size is normal. | | | Visually estimated left ventricular ejection fraction is 60 - 65%. The | | | LV ejection fraction is normal.There is no left ventricular | | | hypertrophy. The ejection fraction is 58.7 % as measured by Rothman's | | | biplane method. Due to poor endocardial definition, ultrasound | | | contrast was used (Definity).Left Ventricular Wall Motion: Left | | | ventricular systolic thickening is normal in all segments.Atria: Left | | | atrial size is normal. Normal right atrium.Right Ventricle: Right | | | ventricular size, thickness and function are normal. TAPSE measures | | | 2.30cm. The RV TDI s' velocity is 15.0cm/sec.Aortic Valve: The aortic | | | valve is normal in structure and function. No indication of aortic | | | valve regurgitation.Mitral Valve: The mitral valve is normal in | | | structure and function. No evidence of mitral valve stenosis. There is | | | a small 6mm x 3mm independently mobile echodensity associated with | | | posterior mitral leaflet subchordal apparatus. There is associated | | | mitral annular calcification. Differentials include flail subchordal | | | apparatus, thrombus, vegetation. Clinical correlation | | | required.Tricuspid Valve: The tricuspid valve is normal in structure | | | and function. No tricuspid regurgitation.Pulmonic Valve: The pulmonic | | | valve is normal in structure and function. The peak trans pulmonic | | | gradient is 3.9 mmHg.Aorta: Visualized portions of the ascending aorta | | | and aortic root appear normal.Pericardium: There is significant | | | precordial fat pad present. No pericardial effusion is seen. | | | Additional Findings: There was initial concern for a mobile | | | echodensity adjacent in the anterolateral myocardium next the mitral | | | annulus (images 82-84). LV contrast does not however confirm a mobile | | | mass. A cardiac CT will be arranged for definitive exclusion of a | | | ventricular mass.2D Measurements Doppler | | | Measurements 2D NL Values Aortic | | | MitralLVID(d) 4.79 (3.5-5.7cm) Max Fadi 1.51 Peak E | | | 0.96 cm m/s | | | m/sLVID(s) 2.95 Mean grad | | | 6.0 Peak A 0.83 cm | | | mmHg m/sIVS(d) 1.09 | | | (0.6-1.1cm) LVOT Fadi 1.32 E/A Ratio 1.16 cm | | | m/sLVPW(d) 1.02 (0.6-1.1cm) | | | LVOT Diam 2.30 TDI (E/e') 9.6 cm | | | cmLA A/Ps 2D 4.40 (2.7-3.9cm) Tricuspid | | | Pulmonic cm TR Vmax | | | PV Vmax 1.0LA vol MOD 63.7 (40-73ml) | | | m/sBP ml RA | | | Press RVOT VTI 18.8LA vol MOD 27.4 (16-34) | | | cmindex ml/m2 | | | Aorta: | | | Index:Biplane EF 58.7 % Ao Sinus 3.00 | | | (2.1-3.5cm) 12.9 | | | cm mm/p1Prgsjvkicq of chamber size and | | | geometry is accomplished through the incorporation of linear, | | | volumetric, and indexed values Report electronically signed by: | | | [id number] Juan Reeder MD (08/14/2016, 3:18:23 PM)REPORT AMZW=[id number] | | | HOSP=PO REGION=A0 Final | | |BP ml RA Press RVOT VTI 18.8 | | |LA vol MOD 27.4 (16-34) cm | | |index ml/m2 | | | Aorta: Index: | | |Biplane EF 58.7 % Ao Sinus 3.00 (2.1-3.5cm) 12.9 | | | cm mm/m2 | | |Evaluation of chamber size and geometry is accomplished through the incorporation of | | |linear, volumetric, and indexed values | | | | | |Report electronically signed by: [id number] Juan Reeder MD (08/14/2016, 3:18:23 PM) | | |REPORT NURC=[id number] HOSP=PO REGION=A0 | | | | | | | | | | | | Final | | + + + + + | Procedure Note | + + | Interface, Cardiology Results - 08/14/2016 3:[address] [facility] [employer] | | [facility] Echocardiography Laboratory [address] [place] [address] | | [place], [place] [address] Pt Name: FAROOQ KIM | | TYLER Study Date/Time 08/14/2016 / 11:18:33 AMMRN: [id number] [facility] | | recent prior: 07/08/2016Acc #: [id number] No. 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 The left ventricular cavity | | size is normal. 2. The LV ejection fraction is normal. | | | | 3. Right ventricular size, thickness and function are normal. | | 4. No significant valvular abnormalities seen. | | 5. There is a small 6mm x 3mm independently mobile echodensity associated | | with posterior mitral leaflet subchordal apparatus. There is associated mitral | | annular calcification. Differentials include flail subchordal apparatus, | | thrombus, vegetation. Clinical correlation required. 6. Compared to the | | most recent exam dated, 07/08/2016, MAURA does not show an LV mass or mitral valve | | disease. | | | | + + | | Description of Findings: Cardiac Rhythm: Normal sinus rhythm.Left Ventricle: The left | | ventricular cavity size is normal. Visually estimated left ventricular ejection fraction | | is 60 - 65%. The LV ejection fraction is normal.There is no left ventricular | | hypertrophy. The ejection fraction is 58.7 % as measured by Rothman's biplane method. | | Due to poor endocardial definition, ultrasound contrast was used (Definity).Left | | Ventricular Wall Motion: Left ventricular systolic thickening is normal in all | | segments.Atria: Left atrial size is normal. Normal right atrium.Right Ventricle: Right | | ventricular size, thickness and function are normal. TAPSE measures 2.30cm. The RV TDI | | s' velocity is 15.0cm/sec.Aortic Valve: The aortic valve is normal in structure and | | function. No indication of aortic valve regurgitation.Mitral Valve: The mitral valve is | | normal in structure and function. No evidence of mitral valve stenosis. There is a small | | 6mm x 3mm independently mobile echodensity associated with posterior mitral leaflet | | subchordal apparatus. There is associated mitral annular calcification. Differentials | | include flail subchordal apparatus, thrombus, vegetation. Clinical correlation | | required.Tricuspid Valve: The tricuspid valve is normal in structure and function. No | | tricuspid regurgitation.Pulmonic Valve: The pulmonic valve is normal in structure and | | function. The peak trans pulmonic gradient is 3.9 mmHg.Aorta: Visualized portions of the | | ascending aorta and aortic root appear normal.Pericardium: There is significant | | precordial fat pad present. No pericardial effusion is seen. Additional Findings: There | | was initial concern for a mobile echodensity adjacent in the anterolateral myocardium | | next the mitral annulus (images 82-84). LV contrast does not however confirm a mobile | | mass. A cardiac CT will be arranged for definitive exclusion of a ventricular mass.2D | | Measurements Doppler Measurements 2D NL Values Aortic | | MitralLVID(d) 4.79 (3.5-5.7cm) Max Fadi 1.51 Peak E 0.96 cm | | m/s m/sLVID(s) 2.95 Mean grad 6.0 | | Peak A 0.83 cm mmHg m/sIVS(d) | | 1.09 (0.6-1.1cm) LVOT Fadi 1.32 E/A Ratio 1.16 cm | | m/sLVPW(d) 1.02 (0.6-1.1cm) LVOT Diam 2.30 TDI (E/e') 9.6 cm | | cmLA A/Ps 2D 4.40 (2.7-3.9cm) Tricuspid Pulmonic cm | | TR Vmax PV Vmax 1.0LA vol MOD 63.7 (40-73ml) | | m/sBP ml RA Press RVOT VTI 18.8LA vol MOD | | 27.4 (16-34) cmindex ml/m2 | | Aorta: Index:Biplane EF 58.7 % Ao Sinus 3.00 | | (2.1-3.5cm) 12.9 cm mm/z5Gwdrcyzeai | | of chamber size and geometry is accomplished through the incorporation of linear, | | volumetric, and indexed values Report electronically signed by: [id number] Juan Reeder | | (08/14/2016, 3:18:23 PM)REPORT DZZI=[id number] HOSP=PO REGION=A0 Final | |mitral annular calcification. Differentials include flail subchordal apparatus, | |thrombus, vegetation. Clinical correlation required. | |Tricuspid Valve: The tricuspid valve is normal in structure and function. No | |tricuspid regurgitation. | |Pulmonic Valve: The pulmonic valve is normal in structure and function. The peak | |trans pulmonic gradient is 3.9 mmHg. | |Aorta: Visualized portions of the ascending aorta and aortic root appear normal. | |Pericardium: There is significant precordial fat pad present. No pericardial effusion | | is seen. | | | |Additional Findings: There was initial concern for a mobile echodensity adjacent in | |the anterolateral myocardium next the mitral annulus (images 82-84). LV contrast does | | not however confirm a mobile mass. A cardiac CT will be arranged for definitive | |exclusion of a ventricular mass. | |2D Measurements Doppler Measurements | | | | 2D NL Values Aortic Mitral | |LVID(d) 4.79 (3.5-5.7cm) Max Fadi 1.51 Peak E 0.96 | | cm m/s m/s | |LVID(s) 2.95 Mean grad 6.0 Peak A 0.83 | | cm mmHg m/s | |IVS(d) 1.09 (0.6-1.1cm) LVOT Fadi 1.32 E/A Ratio 1.16 | | cm m/s | |LVPW(d) 1.02 (0.6-1.1cm) LVOT Diam 2.30 TDI (E/e') 9.6 | | cm cm | |LA A/Ps 2D 4.40 (2.7-3.9cm) Tricuspid Pulmonic | | cm TR Vmax PV Vmax 1.0 | |LA vol MOD 63.7 (40-73ml) m/s | |BP ml RA Press RVOT VTI 18.8 | |LA vol MOD 27.4 (16-34) cm | |index ml/m2 | | Aorta: Index: | |Biplane EF 58.7 % Ao Sinus 3.00 (2.1-3.5cm) 12.9 | | cm mm/m2 | |Evaluation of chamber size and geometry is accomplished through the incorporation of | |linear, volumetric, and indexed values | | | |Report electronically signed by: [id number] Juan Reeder MD (08/14/2016, 3:18:23 PM) | |REPORT MAHQ=[id number] HOSP=PO REGION=A0 | | | | | | | | Final | + + + + + + + | Performing | Address | City/State/Zipcode | Phone Number | | Organization | | | | + + + + + | [facility] | [address] | [place], [place] | | | CARDIOLOGY | [address] | [address] | | + + + + + documented in this encounter Visit Diagnoses + + | Diagnosis | + + | 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
--- OUTSIDE RECORDS SUMMARY | ~2019-07-14 | XMS | Encounter Summary ---
Demographics + + + | Address | [address] | | | [place] [address] | + + + | Home Phone [...] + + | Author | [employer] [place] [employer] [facility] | + + + | Organization | [facility] | + + + | Address | Unknown | + + + | Phone | Unavailable | + + + Support + + +---------+ + | Name | Relationship | Address | Phone | + + +---------+ + | Alexandria Dixon | ECON | Unknown | | + + +---------+ + Care Team Providers + +------+ + | Care Satellite Tv Technician Name | Role | Phone | [...] Description | +--------+--------+ + + + | 08/25/ | Refill | Neurosurgery at | Donnie, | Refill Request | | 2012 | | [facility] [address] | [place], | | | | | [place] Mailcode: [id number] | DNP,EMERGENCY DOCTOR,[place] [address] | | | | | [facility] | [address] [place], | | | | | and Healing, | [place] [address] | | | | | Building [address] | [phone] | | | | | [place], [place] | | | | | | [address] | | | | | | [phone] | | | +--------+--------+ + + + [...] [address] | | | | | | [place], [place] | | | | | | [address] | | | | | | [phone] | | | | | | | | +--------+---------+ + + + documented as of this encounter Visit Diagnoses Not on filedocumented in this encounter"
--- OUTSIDE RECORDS SUMMARY | ~2019-07-14 | XMS | Encounter Summary ---
Demographics + + + | Address | [address] | | | [place] [address] | + + + | Home Phone | | + + + | Preferred Language | Unknown | + + + | Marital Status | Single | + + + | Sabianism Affiliation | Unknown | + + + | Race | Unknown | + + + | Ethnic Group | Unknown | + + + Author + + + | Author | [facility] | | | and [place] | + + + | Organization | [facility] | | | and [place] | [...] Team Providers + +------+ + | Care Gathering Machine Feeder Name | Role | Phone | + +------+ + | Jinny Bergeron MD | PCP | | + +------+ + Reason for Visit +---------+ + | Reason | Comments | +---------+ + | Post Op | nasal surgery,pain 8/10 | +---------+ + Encounter Details +--------+---------+ + + + | Date | Type | Department | Care Team | Description | +--------+---------+ + + + | 04/09/ | Office | [facility] [place] | Rupert Zafar MD | Deviated nasal | | 2015 | Visit | OTOLARYNGOLOGY [address] | [address] [place] | septum (Primary Dx); | | | | [address] | [address], | Hypertrophy of | | | | [place], [place] | [place] [address] | nasal turbinates | | | | [address] | [phone] | | | | | [phone] | | | +--------+---------+ + + + [...] + + + + | Pulse | 100 | 04/09/2016 8:35 AM | | | | | PDT | | + + + + + | Temperature | - | - | | + + + + + | Respiratory Rate | 18 | 04/09/2016 8:35 AM | | | | | PDT | | + + + + + | Oxygen Saturation | 98% | 04/09/2016 8:35 AM | | | | | PDT | | + + + + + | Inhaled Oxygen | - | - | | | Concentration | | | | + + + + + | Weight | 120.2 kg (265 lb) | 04/09/2016 8:35 AM | | | | | PDT | | + + + + + | Height | 172.7 cm (5' 8") | 04/09/2016 8:35 AM | | | | | PDT | | + + + + + | Body Mass Index | 40.29 | 04/09/2016 8:35 AM | | | | | PDT | | + + + + + documented in this encounter Progress Notes Rupert Zafar MD - 04/09/2016 9:57 AM PDT [facility] OTOLARYNGOLOGY [address] [facility] [address] OFFICE NOTE RUPERT ZAFAR MD Patient: FAROOQ LEMA Admitting: MR #: [id number] LOC: PT TYPE: Adm Date: 04/09/2016 : 1980 DATE OF VISIT: 04/09/2016. The patient is postop septoplasty and inferior turbinoplasties. He comes in for a followu p visit. The packing was able to be removed from the right side to the point he could chana the, but he still was doing a little bit of bleeding. On the left hand side, the packing w as removed back posteriorly, but then he started to have fairly vigorous bleeding from his turbinate and so a Rhinorocket was inserted to stop the bleeding. He will leave this in f or the next 24 hours and be seen back at that point. IMPRESSION: Postoperative stable. PLAN: He will be seen again in 24 hours. RUPERT ZAFAR MD Dictated by RUPERT ZAFAR MD 04/09/2016 09:57:38 Transcribed on 04/09/2016 22:45:21 by job# [id number] Confirmation #: [id number] cc: JINNY BERGERON MD [facility], Rupert Bahena MD - 04/09/2016 9:55 AM PDTSee dictation # [id number] signed by Rupert Zafar MD at 04/09/2016 9:58 AM PDTdocumented in th is encounter Plan [...] [place] | | | | | | [address] | | | | | | | | +--------+---------+ + + + documented as of this encounter Visit Diagnoses + + | Diagnosis | + + | Deviated nasal septum - Primary | + + | Hypertrophy of nasal turbinates | + + documented in this encounter
--- OUTSIDE RECORDS SUMMARY | ~2019-07-14 | XMS | Encounter Summary ---
Demographics + + + | Address | [address] | | | [place] [address] | + + + | Home Phone | | + + + | Preferred Language | Unknown | + + + | Marital Status | Single | + + + | Hinduism Affiliation | NON | + + + | Race | or | + + + | Ethnic Group | Not or | + + + Author + + + | Author | [place] [employer] [facility] | + + + | Organization | [facility] | + + + | Address | Unknown | + + + | Phone | Unavailable | + + + Support + + +---------+ + | Name | Relationship | Address | Phone | + + +---------+ + | Alexandria Dixon | ECON | Unknown | | + + +---------+ + Care Team Providers + +------+ + | Care Public Transit Bus Driver Name | Role | Phone | + +------+ + | Jinny Bergeron MD | PCP | | + +------+ + Encounter Details +--------+ + + + + | Date | Type | Department | Care Team | Description | +--------+ + + + + | 01/12/ | MyChart | Neurosurgery at | Donnie, | RE: Hydrocortizone | | 2015 | Encounter | [facility] [address] | Cathie | | | | | [place] Mailcode: CH8N | DNP,STEEL ANALYST,[place] [address] | | | | | [facility] | [address] [place], | | | | | and [place], | [place] [address] | | | | | Building [address] | [phone] | | | | | [place], [place] | | | | | | [address] | | | | | | [phone] | | | +--------+ + + + [...] | | 2019 | Visit | | [address] | | | | | | [address] | | | | | | [place], [place] | | | | | | [address] | | | | | | [phone] | | | | | | | [...]
--- OUTSIDE RECORDS SUMMARY | ~2019-07-14 | XMS | Encounter Summary ---
Demographics + + + | Address | [address] | | | [place] [address] | + + + | Home Phone [...] + + + | Author | [place] [employer] [facility] | + + + | Organization | [facility] | + + + | Address | Unknown | + + + | Phone | Unavailable | + + + Support + + +---------+ + | Name | Relationship | Address | Phone | + + +---------+ + | Alexandria Dixon | ECON | Unknown | | + + +---------+ + Care Team Providers + +------+ + | Care Nurse Extern Name | Role | Phone | + [...] Refill Request | | 2010 | | [facility] [address] | [place], | | | | | [place] Mailcode: CH8N | DNP,ORGANIC EXTRACTIONS TECHNICIAN,[place] [address] | | | | | [facility] | [address] [place], | | | | | and [facility] [place], | [place] [address] | | | | | Building [address] | [phone] | | | | | [place], [place] | | | | | | [address] | | | | | | [phone] | | | +--------+--------+ + + + [...] Rd | | | | | | [place], [place] | | | | | | [address] | | | | | | [phone] | | | | | | | | +--------+---------+ + + + documented as of this encounter Visit Diagnoses Not on filedocumented in this encounter"
--- OUTSIDE RECORDS SUMMARY | ~2019-07-14 | XMS | Encounter Summary ---
Demographics + + + | Address | [address] | | | [place] [address] | + + + | Home Phone | | + + + | Preferred Language | Unknown | + + + | Marital Status | Single | + + + | Mosque Affiliation | NON | + + + | Race | or | + + + | Ethnic Group | Not or | + + + Author + + + | Author | [place] [employer] [facility] | + + + | Organization | [facility] [address] [facility] [...] Team Providers + +------+ + | Care Green End Department Supervisor Name | Role | Phone | + +------+ + | Priscilla Ramírez PA-C | PCP | | + +------+ + Encounter Details +--------+ + + + + | Date | Type | Department | Care Team | Description | +--------+ + + + + | 06/29/ | Hospital | Cardiac | | | | 2017 | Encounter | Non-Invasive Testing | | | | | | at [address] | | | | | | [address] | | | | | | [address] | | | | | | Mailcode: [id number] [address] | | | | | | [place] | | | | | | Building [place], | | | | | | [place] [address] | | | | | | [phone] | | | +--------+ + + + [...] documented as of this encounter Progress Notes Jesenia Quan RN - 06/29/2018 3:59 PM PSTNuclear medicine stress test completed, rep ort to follow. At 0958, prior to the beginning of the procedure, the team paused to verify t he patient s identity, the procedure to be performed (in accordance with the consent,) and the correct side/site. The patient was positioned appropriately. All relevant images and re sults were properly labeled and displayed. We addressed antibiotic prophylaxis and fluids fo r irrigation as applicable to this patient. Any safety precautions were addressed. EKG imag es reviewed with Dr. Yemi De La Rosa, registered representative, who decided that the patient was safe t o proceed with the test. IV removed, catheter intact. EKG images from the test were reviewed with Dr. De La Rosa who de termined that the patient was safe to release from the echo lab. Patient released from echo lab at 1034, VSS and pain-free, and directed to nuclear medicine department for imaging. documented in this encounter Plan of Treatment +--------+---------+ + + + | Date | Type | Specialty | Care Team | Description | +--------+---------+ + + + | 08/15/ | Office | Cardiology | Zuleika Hernandez, | | | 2019 | Visit | | [address] | | | | | | [address] | | | | | | [place], [place] | | | | | | [address] | | | | | | [phone] | | | | | | | | +--------+---------+ + + + documented as of this encounter Procedures + +--------+ + + + | Procedure Name | Priori | Date/Time | Associated Diagnosis | Comments | | | ty | | | | + +--------+ + + + | ECG TRACING FOR | Extrem | 06/29/2018 | Chest pain, | Results for this | | STRESS NUCLEAR | e | 9:14 AM | unspecified type | procedure are in the | | MEDICINE | Emerge | PST | Coronary artery | results section. | | | ncy | | disease of [place] | | | | | | artery of [place] | | | | | | heart with stable | | | | | | angina pectoris | | | | | | (HCC) | | + +--------+ + + + documented in this encounter Results ECG TRACING FOR STRESS NUCLEAR MEDICINE (06/29/2018 9:14 AM PST) + + + + + + | Component | Value | Ref Range | Performed | Pathologist | | | | | At | Signature | + + + + + + | CLARIFICATI | . | | [facility] | | | ON | | | OF | | | | | | CARDIOLOGY | | + + + + + + | INTERP | Indication: | | [facility] | | | | CADVasodilator Agent: | | OF | | | | RegadenosonPROCEDURE: | | CARDIOLOGY | | | | The patient underwent a | | | | | | vasodilator stress ECG | | | | | | study done as part of a | | | | | | stress-rest SPECT | | | | | | [id number] | | | | | | perfusion imaging scan. | | | | | | The patient received | | | | | | regadenoson 0.4 mg | | | | | | intravenously.Infusion | | | | | | time: 10 secondsBaseline | | | | | | heart rate: 57 | | | | | | Peak | | | | | | heart rate: 67, | | | | | | 37% of 181, the | | | | | | maximal predicted heart | | | | | | rate for age | | | | | | | | | | | | | | | | | | Baseline blood | | | | | | pressure: 107/55 | | | | | | Peak | | | | | | infusion blood pressure: | | | | | | 99/53O2 sats at | | | | | | baseline: 94% | | | | | | O2 | | | | | | sats at peak: 98% | | | | | | RAChest pain: | | | | | | noneIMPRESSION1. | | | | | | Non-diagnostic | | | | | | vasodilator stress ECG | | | | | | study due to failure to | | | | | | reach target HR.2. | | | | | | Please refer to the | | | | | | results of the SPECT | | | | | | imaging study. | | | | + + + + + + | CONCLUSION | . 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
--- OUTSIDE RECORDS SUMMARY | ~2019-07-14 | XMS | Encounter Summary ---
Demographics + + + | Address | [address] | | | [place] [address] | + + + | Home Phone | | + + + | Preferred Language | Unknown | + + + | Marital Status | Single | + + + | Baptist Affiliation | Unknown | + + + | Race | Unknown | + + + | Ethnic Group | Unknown | + + + Author + + + | Author | [facility] | | | and [place] | + + + | Organization | [facility] | | | and [...] Team Providers + +------+ + | Care Biomedical Instrument Technician Name | Role | Phone | + +------+ + | Jinny Bergeron MD | PCP | | + +------+ + Reason for Visit +---------+ + | Reason | Comments | +---------+ + | No Show | | +---------+ + Encounter Details +--------+ + + + + | Date | Type | Department | Care Team | Description | +--------+ + + + + | 11/13/ | Telephone | [facility] | Sumanth Champion PA | No Show | | 2017 | | SLEEP DISORDER [address] | [address] | | | | | [address] [place] | [place], [place] | | | | | [place] [address] | [address] | | | | | [phone] | | | +--------+ + + + [...] 2020 | Visit | | [address] | | | | | | [place] | | | | | | [address] | | | | | | | | +--------+---------+ + + + documented as of this encounter Visit Diagnoses Not on filedocumented in this encounter"
--- OUTSIDE RECORDS SUMMARY | ~2019-07-14 | XMS | Encounter Summary ---
Demographics + + + | Address | [address] | | | [place] [address] | + + + | Home Phone | | + + + | Preferred Language | Unknown | + + + | Marital Status | Single | + + + | Pentecostal Affiliation | NON | + + + | Race | or | + + + | Ethnic Group | Not or | + + + Author + + + | Author | [place] [address] [facility] | + + + | Organization | [facility] | + + + | Address | Unknown | + + + | Phone | Unavailable | + + + Support + + +---------+ + | Name | Relationship | Address | Phone | + + +---------+ + | Alexandria Dixon | ECON | Unknown | | + + +---------+ + Care Team Providers + +------+ + | Care Motion Picture Photographer Name | Role | Phone | + +------+ + | Priscilla Ramírez PA-C | PCP | | + +------+ + Reason for Visit +--------+ + | Reason | Comments | +--------+ + | Other | | +--------+ + Encounter Details +--------+ + + + + | Date | Type | Department | Care Team | Description | +--------+ + + + + | 04/15/ | Telephone | Cardiology General | Zuleika Hernandez, | Other | | 2018 | | at [facility] [address] | [address] | | | | | [address] Mailcode: | [address] | | | | | [address] [place] | [place], [place] | | | | | Health and Healing, | [address] | | | | | [place] [address] [facility] | [phone] | | | | | floor [place], [place] | | | | | | [address] | | | | | | [phone] | | | +--------+ + + + [...] | | 2019 | Visit | | [address] | | | | | | [address] | | | | | | [place], [place] | | | | | | [address] | | | | | | [phone] | | | | | | | | +--------+---------+ + + + documented as of this encounter Visit Diagnoses Not on filedocumented in this encounter"
--- OUTSIDE RECORDS SUMMARY | ~2019-07-14 | XMS | Encounter Summary ---
Demographics + + + | Address | [address] | | | [place] [address] | + + + | Home Phone [...] + + | Author | [place] [employer] [facility] | + + + | Organization | [facility] | + + + | Address | Unknown | + + + | Phone | Unavailable | + + + Support + + +---------+ + | Name | Relationship | Address | Phone | + + +---------+ + | Alexandria Dixon | ECON | Unknown | | + + +---------+ + Care Team Providers + +------+ + | Care Aluminum Pool Installer Name | Role | Phone | + [...] Other | | 2018 | | at [facility] [address] | [address] | | | | | [address] Mail[address]: | [address] | | | | | [address] [place] for | [place], [place] | | | | | Health and Healing, | [address] | | | | | [place] [address] [facility] | [phone] | | | | | floor [place], [place] | | | | | | [address] | | | | | | [phone] | | | +--------+ + + + [...] | | 2019 | Visit | | [address] | | | | | | [address] | | | | | | [place], [place] | | | | | | [address] | | | | | | [phone] | | | | | | | | +--------+---------+ + + + documented as of this encounter Visit Diagnoses Not on filedocumented in this encounter"
--- OUTSIDE RECORDS SUMMARY | ~2019-07-14 | XMS | Encounter Summary ---
Demographics + + + | Address | [address] | | | [place] [address] | + + + | Home Phone | | + + + | Preferred Language | Unknown | + + + | Marital Status | Single | + + + | Buddhist Affiliation | Unknown | + + + | Race | Unknown | + + + | Ethnic Group | Unknown | + + + Author + + + | Author | [facility] | | | and [place] | + + + | Organization | [facility] | | | and [place] [...] Team Providers + +------+ + | Care Pipe Layer Name | Role | Phone [...] | | y | Follow up, | MD Jinny | MD Josef [address] | | | | | nose/[employer]/ | [address] | | | | | [place]/ | AVE [place] | [address] | | | | | Self/Request | [place], [place] | [place], | | | | | ed [facility] auth | [address] | [place] [address] | | | | | for | Phone: | Phone: | | | | | Procedures | [phone] | [phone] | | | | | OFFICE VISIT | Fax: | Fax: | | | | | REGULAR | [phone] | [phone] | +--------+--------+ + + + + Encounter Details +--------+---------+ + + + | Date | Type | Department | Care Team | Description | +--------+---------+ + + + | 04/30/ | Office | [facility] [place] | Mckay Zafar MD | Hypertrophy of nasal | | 2016 | Visit | OTOLARYNGOLOGY [address] | [address] [place] | turbinates (Primary | | | | [address] [place] [address] | [address] [place], | Dx); 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[place], [place] | [place] [address] | septum; Obstructive | | | | [address] | [phone] | sleep apnea (adult) | | | | [phone] | | (pediatric) | +--------+---------+ + + [...] + + + + | Pulse | 108 | 04/30/2016 9:06 AM | | | | | PDT | | + + + + + | Temperature | - | - | | + + + + + | Respiratory Rate | 16 | 04/30/2016 9:06 AM | | | | | PDT | | + + + + + | Oxygen Saturation | 96% | 04/30/2016 9:06 AM | | | | | PDT | | + + + + + | Inhaled Oxygen | - | - | | | Concentration | | | | + + + + + | Weight | 120.2 kg (265 lb) | 04/30/2016 9:06 AM | | | | | PDT | | + + + + + | Height | 172.7 cm (5' 8") | 04/30/2016 9:06 AM | | | | | PDT | | + + + + + | Body Mass Index | 40.29 | 04/30/2016 9:06 AM | | | | | PDT | | + + + + + documented in this encounter Progress Notes Mckay Zafar MD - 04/30/2016 12:04 PM PDT [facility] OTOLARYNGOLOGY [address] [place] [id number] OFFICE NOTE MCKAY ZAFAR MD Patient: FAROOQ LEMA Admitting: MR #: [id number] LOC: PT TYPE: Adm Date: 04/30/2016 : 1980 DATE OF VISIT: 04/30/2016. The patient is postoperative septoplasty and inferior turbinoplasty to open up his nasal p assages. He had a lot of bleeding on the left hand side postoperatively. He still feels h e is not breathing very well through the nose. He comes in for a followup visit. He uses a CPAP machine and hoping to be able to use it so it will function well. Examination shows a lot of crusting on both sides. Large crusts were easily removed with the use of a Becerril forceps and spraying his nose with some viscous Xylocaine and Aristides-Syne phrine. Once removed, there was noted to be a small adhesion up high on the left hand side . This was cut through to try to keep away scarring up in this area. Down below, he has good space for breathing on both sides and with the crusting removed he was breathing much better. He will continue with the nasal irrigation and blowing his nose. He will be re-se en again in 3 weeks' time. MCKAY ZAFAR MD Dictated by MCKAY ZAFAR MD 04/30/2016 12:04:16 Transcribed on 05/01/2016 14:41:16 by [facility] job# [id number] Confirmation #: [id number] cc: JINNY BERGERON MD a [facility], Mckay Bahena MD - 04/30/2016 12:01 PM PDTSee dictation # [id number] signed by Mckay Zafar MD at 04/30/2016 12:04 PM PDTdocumented in th is encounter Plan of [...] [place] | | | | | | [address] | | | | | | | | +--------+---------+ + + + documented as of this encounter Visit Diagnoses + + | Diagnosis | + + | Hypertrophy of nasal turbinates - Primary | + + | Deviated nasal septum | + + | Obstructive sleep apnea (adult) (pediatric) | + + documented in this encounter
--- OUTSIDE RECORDS SUMMARY | ~2019-07-14 | XMS | Encounter Summary ---
Demographics + + + | Address | [address] | | | [place] [address] | + + + | Home Phone [...] + + + | Author | [place] [employer] [facility] | + + + | Organization | [facility] | + + + | Address | Unknown | + + + | Phone | Unavailable | + + + Support + + +---------+ + | Name | Relationship | Address | Phone | + + +---------+ + | Alexandria Dixon | ECON | Unknown | | + + +---------+ + Care Team Providers + +------+ + | Care Printer Assistant Name | Role | Phone | [...] Test | | 2008 | Encounter | [facility] [address] | [place] | | | | | [place] Mailcode: CH8N | DNP,CUSTOM VAN CONVERTER,[place] [address] | | | | | [facility] | [address] [place], | | | | | and Healing, | [place] [address] | | | | | Building | [phone] | | | | | Floor [place], [place] | | | | | | [address] | | | | | | [phone] | | | +--------+ + + + [...] Rd | | | | | | [place], [place] | | | | | | [address] | | | | | | [phone] | | | | | | | | +--------+---------+ + + + documented as of this encounter Visit Diagnoses Not on filedocumented in this encounter"
--- OUTSIDE RECORDS SUMMARY | ~2019-07-14 | XMS | Encounter Summary ---
Demographics + + + | Address | [address] | | | [place] [address] | + + + | Home Phone [...] Author + + + | Author | [place] [employer] [facility] | + + + | Organization | [facility] | + + + | Address | Unknown | + + + | Phone | Unavailable | + + + Support + + +---------+ + | Name | Relationship | Address | Phone | + + +---------+ + | Alexandria Dixon | ECON | Unknown | | + + +---------+ + Care Team Providers + +------+ + | Care Lawyer Probate Name | Role | Phone | + [...] Refill Request | | 2007 | | [facility] [address] | [place], | | | | | [place] Mailcode: CH8N | DNP,BRICK SIDING APPLICATOR,[place] [address] | | | | | [facility] | [address] [place], | | | | | and [facility], | [place] [address] | | | | | Building [address] | [phone] | | | | | [place], [place] | | | | | | [address] | | | | | | [phone] | | | +--------+--------+ + + + [...] Rd | | | | | | [place], [place] | | | | | | [address] | | | | | | [phone] | | | | | | | | +--------+---------+ + + + documented as of this encounter Visit Diagnoses Not on filedocumented in this encounter"
--- OUTSIDE RECORDS SUMMARY | ~2019-07-14 | XMS | Encounter Summary ---
Demographics + + + | Address | [address] | | | [place] [address] | + + + | Home Phone [...] + + | Author | [place] [employer] [facility] | + + + | Organization | [facility] | + + + | Address | Unknown | + + + | Phone | Unavailable | + + + Support + + +---------+ + | Name | Relationship | Address | Phone | + + +---------+ + | Alexandria Dixon | ECON | Unknown | | + + +---------+ + Care Team Providers + +------+ + | Care Telemetry Rn Name | Role | Phone | + [...] Description | +--------+--------+ + + + | 05/17/ | Refill | Neurosurgery at | [place], | Refill Request | | 2019 | | [facility] [address] | [place], | | | | | [place] Mailcode: CH8N | DNP,TITLE ONE TEACHER,[place] [address] | | | | | [facility] | [address] [place], | | | | | and Healing, | [place] [address] | | | | | Building [address] | [phone] | | | | | [place], [place] | | | | | | [address] | | | | | | [phone] | | | +--------+--------+ + + + [...] 08/15/ | Office | Cardiology | Zuleika Hernanedz, | | | 2019 | Visit | | [address] | | | | | | [address] | | | | | | [place], [place] | | | | | | [address] | | | | | | [phone] | | | | | | | | +--------+---------+ + + + documented as of this encounter Visit Diagnoses + + | Diagnosis | + + | Pituitary adenoma (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
--- OUTSIDE RECORDS SUMMARY | ~2019-07-14 | XMS | Encounter Summary ---
Demographics + + + | Address | [address] | | | [place] [address] | + + + | Home Phone [...] + + + | Author | [place] [facility] | + + + | Organization | [facility] | + + + | Address | Unknown | + + + | Phone | Unavailable | + + + Support + + +---------+ + | Name | Relationship | Address | Phone | + + +---------+ + | Alexandria Dixon | ECON | Unknown | | + + +---------+ + Care Team Providers + +------+ + | Care Spot Facer Name | Role | Phone | + +------+ + | Bernardo Pan | PCP | | + +------+ + Reason for Visit + + + | Reason | Comments | + + + | Follow-up visit | Pt would like to discuss disability. | + + + Encounter Details +--------+---------+ + + + | Date | Type | Department | Care Team | Description | +--------+---------+ + + + | 05/12/ | Office | Neurosurgery at | Donnie, | Panhypopituitarism | | 2017 | Visit | [facility] [address] | Cath[place], | ([facility]) (Primary Dx); | | | | [place] Mailcode: 8N | DNP,[place] [address] | Pituitary adenoma | | | | [place] [facility] | [address] [place], | ([facility]); 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and Healing, | [place] [address] | hormone deficiency | | | | [address] | [phone] | ([facility]); Diabetes | | | | [place], [place] | | insipidus ([facility]); | | | | [address] | | Vitamin D | | | | [phone] | | deficiency; | | | | | | Hypogonadism male; | | | | | | Other specified | | | | | | hypothyroidism; | | | | | | Adrenal | | | | | | insufficiency ([facility]) | +--------+---------+ + + + [...] + + + | Blood Pressure | 131/74 | 05/12/2017 1:04 PM | | | | | PDT | | + + + + + | Pulse | 66 | 05/12/2017 1:04 PM | | | | | PDT | | + + + + + | Temperature | 37 C (98.6 F) | 05/12/2017 1:04 PM | | | | | PDT [...] + + + + | Weight | 122.7 kg (270 lb 8 | 05/12/2017 1:04 PM | | | | oz) | PDT | | + + + + + | Height | - | - | | + + + + + | Body Mass Index | 41.14 | 07/08/2016 9:30 AM | | | | | PST | | + + + + + documented in this encounter Progress Notes Cathie Fields, DNP,[place] - 05/12/2017 1:30 PM PDTFormatting of this note might be di fferent from the original. Reason for visit. Amairani Tyler returns to pituitary clinic for interval review of pituitary symptoms and titration of hormone replacement. 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 Reuben Styles. He had a cardiac stent place 02/2011 after a n ID. At this visit; Symptoms and Complaints: Admitted to [facility] 3 weeks ago with chest pain and elevated troponin. Stent pl marie in LAD no further chest pain HC now 25mg daily no dizziness, nausea or headaches no symptoms of SYED thru procedure was t x with IV solucortef ddavp 11/2 tab am and 2 tabs HS. Not nocturia Fatigue improved after stent Weight stable after weight loss Arm improved weak improved some residual weakness Depot testosterone last 05/11/17 every 2 weeks. No visual deficit Migraine intermittent severe 10 3-4x /mth. Was treating with excedrine Pending Visual check 3-4 month ago Energy level better Sexual function ok back pain worse in winter B/p better and more stable BSL- HA1c 6.1- 7.2% Taking Thyroid regularly Uses CPAP intermittently Regularly recent surgery on septal defect Is using GH intermittently Sleeps more during the day at [facility] Still feels hot a lot of the time quit chewing tobacco Hot flashes and some night sweats. Feels hot most of the time. No CTS sympotms LT4 125mcg x6/week Exact date of onset of symptoms is unknown Review of systems negative other than as stated above. Physical Exam: Blood pressure 131/74, pulse 66, temperature 37 C (98.6 F), temperature source Oral, we ight 122.7 kg (270 lb 8 oz). General: A pleasant man [...] CREATININE PLASMA (LAB) 0.70-1.30 mg/dL EGFR - SAO TOMEAN >60 mL/min EGFR NON -SAO TOMEAN >60 mL/min SODIUM, PLASMA (LAB) 136-145 mmol/L [...] PLASMA (LAB) 0.70-1.30 mg/dL 0.81 EGFR - SAO TOMEAN >60 mL/min >60 EGFR NON -SAO TOMEAN >60 mL/min >60 SODIUM, PLASMA (LAB) 136-145 [...] CREATININE PLASMA (LAB) 0.70-1.30 mg/dL EGFR - SAO TOMEAN >60 mL/min EGFR NON -SAO TOMEAN >60 mL/min SODIUM, PLASMA (LAB) 136-145 mmol/L [...] PLASMA (LAB) 0.70-1.30 mg/dL 0.95 EGFR - SAO TOMEAN >60 mL/min >60 EGFR NON -SAO TOMEAN >60 mL/min >60 SODIUM, PLASMA (LAB) 136-145 mmol/L 140 POTASSIUM, PLASMA (LAB) 3.4-5.0 mmol/L 3.8 CHLORIDE, PLASMA (LAB) 97-108 mmol/L 105 TOTAL CO2, PLASMA (LAB) 21-32 mmol/L 26 CALCIUM, PLASMA (LAB) 8.6-10.2 mg/dL 9.0 ANION GAP 9 POTASSIUM CMNT No Hemo FREE T4, SERUM 0.6-1.2 ng/dL 1.2 PROLACTIN 3 - 13 ng/mL 4 TSH 0.39-4.17 mIU/L HEMOGLOBIN A1C <5.7 % PSA,TOTAL,SCREENING <=2.50 ng/mL Component Latest Ref Rng 11/16/2015 11/16/2015 11/16/2015 11/16/2015 2:00 PM 2:00 PM 2:00 PM 2:00 PM GLUCOSE, PLASMA (LAB) 60-99 mg/dL BUN, PLASMA (LAB) 6-20 mg/dL CREATININE PLASMA (LAB) 0.70-1.30 mg/dL EGFR - SAO TOMEAN >60 mL/min EGFR NON -SAO TOMEAN >60 mL/min SODIUM, PLASMA (LAB) 136-145 mmol/L [...] PLASMA (LAB) 0.70-1.30 mg/dL 0.78 EGFR - SAO TOMEAN >60 mL/min >60 EGFR NON -SAO TOMEAN >60 mL/min >60 SODIUM, PLASMA (LAB) 136-145 [...] 25 HYDROXY 30-80 ng/mL Component Latest Ref Rn 05/16/2016 05/16/2016 05/16/2016 05/16/2016 12:54 PM 12:54 PM 12:54 PM 12:54 PM GLUCOSE, PLASMA (LAB) 60-99 mg/dL BUN, PLASMA (LAB) 6-20 mg/dL CREATININE PLASMA (LAB) 0.70-1.30 mg/dL EGFR - SAO TOMEAN >60 mL/min EGFR NON -SAO TOMEAN >60 mL/min SODIUM, PLASMA (LAB) 136-145 mmol/L POTASSIUM, PLASMA (LAB) 3.4-5.0 mmol/L CHLORIDE, PLASMA (LAB) 97-108 mmol/L TOTAL CO2, PLASMA (LAB) 21-32 mmol/L CALCIUM, PLASMA (LAB) 8.6-10.2 mg/dL ANION GAP POTASSIUM CMNT FREE T4, SERUM 0.6-1.2 ng/dL 1.4 (H) PROLACTIN 3 - 13 ng/mL 8 TSH 0.39-4.17 mIU/L 0.50 VITAMIN D 25 HYDROXY 30-80 ng/mL 29.8 (L) Component Latest Ref Rn 05/16/2016 12:54 PM GLUCOSE, PLASMA (LAB) 60-99 mg/dL 90 BUN, PLASMA (LAB) 6-20 mg/dL 11 CREATININE PLASMA (LAB) 0.70-1.30 mg/dL 0.72 EGFR - SAO TOMEAN >60 mL/min >60 EGFR NON -SAO TOMEAN >60 mL/min >60 SODIUM, PLASMA (LAB) 136-145 mmol/L 138 POTASSIUM, PLASMA (LAB) 3.4-5.0 mmol/L 3.7 CHLORIDE, PLASMA (LAB) 97-108 mmol/L 103 TOTAL CO2, PLASMA (LAB) 21-32 mmol/L 27 CALCIUM, PLASMA (LAB) 8.6-10.2 mg/dL 9.1 ANION GAP 8 POTASSIUM CMNT No Hemo FREE T4, SERUM 0.6-1.2 ng/dL PROLACTIN 3 - 13 ng/mL TSH 0.39-4.17 mIU/L VITAMIN D 25 HYDROXY 30-80 ng/mL Assessment and discussion: Amairani Tyler is a 37yo male with 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 He underwent cardiac stenting after MRI 02/13. Pt now stable but developed chest pain requiring large doses of nitroglycerin and was admit lizeth to local cardiac center with placement of LAD stent. Troponin was elevated by report. H e is now doing much better and denies further chest pain. Fatigue has improved. He was giv en ER dose of glucocorticoids prior to procedure which was without incident. He continues to use GH intermittently and depot testosterone regularly. He reports 3-4 m igraines a month that are severe but he does not take any medications and sleeps to resolve. He is unable to function well with headaches. Recommend he follow up with local neurologist for preventative therapy. He is beginning to exercise again and weight has been stable. I answered pt, SO's questions to their satisfaction. Plan 1. Adrenals. Pt will continue 25mg hydrocortisone daily. He is instructed to take ER ster oids up to 40mg extra for illness, injury, fever, vomiting from any cause. 2. Testosterone level pending- trough level. Doing well on depot testosterone. He will fol low this with PCP. 3. Growth hormone. IGF-1 pending. Pt is GH deficient. He has been using GH intermittentl y by report but does feel better when using more regularly 4. Thyroid. TSH, FT4 pending. Will increase dose if FT4 is not in mid to upper range of nor mal. 5. DI.controlled. BMP pending. No change in DDAVp anticiapted. 6. Vitamin D insufficiency. Level pending. Previous dose D3 3,000IU daily 7. Pt will follow HA1c locally 8. Follow up with cardiology locally 8. Follow up in 6 mths 11/25. With labs TOMER MONTELONGO DNP, BECCA Keel [employer] [facility] [address] [facility] [place] [address] Plan addendum: 1. Thryoid level WNL. No change in current dose of LT4 Will recheck level in 6 months. 2. Testosterone level pending. ( Peak) pt will follow up with PCP 3. Vitamin D level improved continue same dose of vit D3. 4. IGF-1 pending. 5. Follow up 10/25 TOMER MONTELONGO DNP, BECCA Keel [employer] [facility] [address] [facility] [place] [address] Component Latest Ref Rng & Units 05/12/2017 05/12/2017 05/12/2017 05/12/2017 2:03 PM 2:03 PM 2:03 PM 2:03 PM GLUCOSE, PLASMA (LAB) 70 - 99 mg/dL 108 (H) BUN, PLASMA (LAB) 6 - 20 mg/dL 13 CREATININE PLASMA (LAB) 0.70 - 1.30 mg/dL 0.84 EGFR - SAO TOMEAN >60 mL/min >60 EGFR NON -SAO TOMEAN >60 mL/min >60 SODIUM, PLASMA (LAB) 136 - 145 mmol/L 142 POTASSIUM, PLASMA (LAB) 3.4 - 5.0 mmol/L 3.9 CHLORIDE, PLASMA (LAB) 97 - 108 mmol/L 108 TOTAL CO2, PLASMA (LAB) 21 - 32 mmol/L 27 CALCIUM, PLASMA (LAB) 8.6 - 10.2 mg/dL 9.0 ANION GAP mmol/L 7 POTASSIUM CMNT No Hemo FREE T4, SERUM 0.6 - 1.2 ng/dL 1.1 PROLACTIN 3.7 - 16.0 ng/mL TSH 0.39 - 4.17 mIU/L 0.47 VITAMIN D 25 HYDROXY 30 - 80 ng/mL 32.2 Component Latest Ref Rng & Units 05/12/2017 2:03 PM GLUCOSE, PLASMA (LAB) 70 - 99 mg/dL BUN, PLASMA (LAB) 6 - 20 mg/dL CREATININE PLASMA (LAB) 0.70 - 1.30 mg/dL EGFR - SAO TOMEAN >60 mL/min EGFR NON -SAO TOMEAN >60 mL/min SODIUM, PLASMA (LAB) 136 - 145 mmol/L POTASSIUM, PLASMA (LAB) 3.4 - 5.0 mmol/L CHLORIDE, PLASMA (LAB) 97 - 108 mmol/L TOTAL CO2, PLASMA (LAB) 21 - 32 mmol/L CALCIUM, PLASMA (LAB) 8.6 - 10.2 mg/dL ANION GAP mmol/L POTASSIUM CMNT FREE T4, SERUM 0.6 - 1.2 ng/dL PROLACTIN 3.7 - 16.0 ng/mL 7.3 TSH 0.39 - 4.17 mIU/L VITAMIN D 25 HYDROXY 30 - 80 ng/mL No change in plan above. 17 11:09 AM PDTdocumented in this encounter Plan of Treatment +--------+---------+ + + + | Date | Type | Specialty | Care Team | Description | +--------+---------+ + + + | 08/15/ | Office | Cardiology | Zuleika Hernandez, | | | 2019 | Visit | | [address] | | | | | | [address] | | | | | | [place], [place] | | | | | | [address] | | | | | | [phone] | | | | | | | | +--------+---------+ + + + documented as of this encounter Results VITAMIN D, 25-HYDROXY, SERUM (05/12/2017 2:03 PM PDT) + +-------+ + + + | Component | Value | Ref Range | Performed | Pathologist | | | | | At | Signature | + +-------+ + + + | VITAMIN D | 32.2 | 30 - 80 ng/mL | [facility] [...] [facility] | [address] | [place] [address] | | | SERVICES, CORE | [address] | | | + + + + + TSH (05/12/2017 2:03 PM PDT) + +-------+ + + + | Component | Value | Ref Range | Performed | Pathologist | | | | | At | Signature | + +-------+ + + + | TSH | 0.47 | 0.39 - 4.17 | [facility] | [...] + + + + + | [facility] | [address] | [place] [address] | | | VITALY RANKIN | [address] | | | + + + + + TESTOSTERONE, SERUM (05/12/2017 2:03 PM PDT) + + + + + + | Component | Value | Ref Range | Performed | Pathologist | | | | | At | Signature | + + + + + + | TESTOSTERON | 277 (L)Comment: Total | 300 - 1080 | [...] | | | this test in the [facility] | | | | | | Laboratory Test | | | | | | Directory | | | | | | (Zeto).Performed | | | | | | by [employer],[address] | | | | | | [address], [facility],[place] | | | | | | [address] | | | | | | [phone].[employer]. | | | | | | Ty [...] [facility] | [address] | [place], [place] | | | UNIV PTH - [facility] | | [address] | | + + + + + PROLACTIN, SERUM (05/12/2017 2:03 PM PDT) + +-------+ + + + | Component | Value | Ref Range | Performed | Pathologist | | | | | At | Signature | + +-------+ + + + | PROLACTIN | 7.3 | 3.7 - 16.0 | [facility] | | | | | ng/mL | [facility] - | | | | [...] + | [facility] - | [address] | [place] [address] | | | [place] | | | | + + + + + INSULIN GROWTH FACTOR-1, SERUM (05/12/2017 2:03 PM PDT) + + + + + + | Component | Value | Ref Range | Performed | Pathologist | | | | | At | Signature | + + + + + + | IGF-1 | 171Comment: REFERENCE | 132 - 333 ng/mL | [facility] | | | | INTERVAL: IGF-1 | | REG UNIV | | | | (Insulin-Like Growth I) | | PTH - [facility] | | | | IGF-1 values well above | | | | | | the age and gender | | | | | | matched reference | | | | | | interval indicate a | | | | | | possible pituitary tumor | | | | | | secreting growth | | | | | | hormone. IGF-1 values | | | | | | below the reference | | | | | | interval indicate a | | | | | | possible GH deficiency. | | | | | | Access complete set of | | | | | | age- and/or | | | | | | gender-specific | | | | | | reference intervals for | | | | | | this test in the [facility] | | | | | | Laboratory Test | | | | | | Directory | | | | | | (Zeto).Performed | | | | | | by [employer],[address] | | | | | | [address], [facility],[place] | | | | | | [address] | | | | | | [phone].[facility]. | | | | | | [facility], Ty Walter MD, | | | | | | Lab. Director | | | | + + + + + + + + | Specimen | + + | Blood - Blood | | (substance) | + + + + + + + | Performing | Address | City/State/Zipcode | Phone Number | | Organization | | | | + + + + + | [facility] | [address] | [place], [place] | | | UN[facility] | | [address] | | + + + + + FREE T4 (05/12/2017 2:03 PM PDT) + +-------+ + + + [...] [facility] | [address] | [place] [address] | | | SERVICES, CORE | [address] | | | + + + + + BASIC METABOLIC SET (NA, K, CL, TCO2, BUN, CR, GLU, CA) (05/12/2017 2:03 PM PDT) + +---------+ + + + | Component | Value | Ref Range | Performed | Pathologist | | | | | At | Signature | + +---------+ + + + | GLUCOSE, | 108 (H) | 70 - 99 mg/dL | [...] +---------+ + + + | CREATININE | 0.84 | 0.70 - 1.30 | [facility] | | | PLASMA | | mg/dL | LABORATORY | | | (LAB) | | | SERVICES, | | | | | | CORE | | + +---------+ + + + | EGFR | >60 | >60 mL/min | [facility] | | | - | | | LABORATORY | | | [facility] | | | SERVICES, | | | | | | CORE | | + +---------+ + + + | EGFR NON | >60 | >60 mL/min | [facility] | | | -[facility] | | | LABORATORY | | | RICAN | | | SERVICES, | | | | | | CORE | | + +---------+ + + + | SODIUM, | 142 | 136 - 145 | [facility] | [...] +---------+ + + + | CHLORIDE, | 108 | 97 - 108 mmol/L | [facility] | | | PLASMA | | | LABORATORY | | | (LAB) | | | SERVICES, | | | | | | CORE | | + +---------+ + + + | TOTAL CO2, | 27 | 21 - 32 mmol/L | [facility] [...] Performed At | + + + | Adult glucose reference range change effective 7-12-17. GFR is | [facility] | | estimated using the MDRD equation recommended by the National Kidney | LABORATORY | | Disease Education Program. Estimated GFR Interpretive Information: | SERVICES, CORE | | <60 mL/min/1.73 sq m Chronic Kidney Disease | | | <15 mL/min/1.73 sq m Kidney Failure Estimated | | | GFR greater that 60 mL/min/1.73 sq m is of limited clinical value. | | | The MDRD equation is not valid in the following situations: - | | | Patients under 18 years of age - Severe malnutrition or obesity - | | | Vegetarian diet - Rapidly changing kidney function | | + + + + + + + + | Performing | Address | City/State/Zipcode | Phone Number | | Organization | | | | + + + + + | [facility] | [address] | [place] [address] | | | SERVICES, CORE | [address] | | | + + + + + documented in this encounter Visit Diagnoses + + | Diagnosis | + + | Panhypopituitarism (HCC) - Primary Panhypopituitarism | + + | Pituitary adenoma (HCC) Benign neoplasm of pituitary gland and craniopharyngeal duct | | (pouch) | + + | Growth hormone deficiency (HCC) Pituitary dwarfism | + + | Diabetes insipidus (HCC) Diabetes insipidus | + + | Vitamin D deficiency | + + | Hypogonadism male Other testicular hypofunction | + + | Other specified hypothyroidism | + + | Adrenal insufficiency (HCC) Glucocorticoid deficiency | + + documented in this encounter"
--- OUTSIDE RECORDS SUMMARY | ~2019-07-14 | XMS | Encounter Summary ---
Demographics + + + | Address | [address] | | | [place] [address] | + + + | Home Phone [...] + + | Author | [place] [employer] [facility] | + + + | Organization | [facility] | + + + | Address | Unknown | + + + | Phone | Unavailable | + + + Support + + +---------+ + | Name | Relationship | Address | Phone | + + +---------+ + | Alexandria Dixon | ECON | Unknown | | + + +---------+ + Care Team Providers + +------+ + | Care Daycare Teacher Name | Role | Phone | + +------+ + | Bernardo Pan | PCP | | + +------+ + Encounter Details +--------+ + + + + | Date | Type | Department | Care Team | Description | +--------+ + + + + | 07/27/ | MyChart | Neurosurgery at | Donnie, | RE: Disability | | 2017 | Encounter | [facility] [id number] | Cathie | | | | | [place] Mailcode: [id number] | DNP,[place] [address] | | | | | [facility] | [address] [place], | | | | | and [place], | [place] [address] | | | | | [place] [address] | [phone] | | | | | [place], [place] | | | | | | [address] | | | | | | [phone] | | | +--------+ + + + [...] [address] | | | | | | [place], [place] | | | | | | [address] | | | | | | [phone] | | | | | | | | +--------+---------+ + + + documented as of this encounter Visit Diagnoses Not on filedocumented in this encounter"
--- OUTSIDE RECORDS SUMMARY | ~2019-07-14 | XMS | Encounter Summary ---
Demographics + + + | Address | [address] | | | [place] [address] | + + + | Home Phone [...] + + + | Author | [facility] | | | and [place] | + + + | Organization | [facility] | | | and [...] Team Providers + +------+ + | Care Associate Professor Of Biology Name | Role | Phone | + +------+ + PCP | Unavailable | + +------+ + Encounter Details +--------+ + + + + | Date | Type | Department | Care Team | Description | +--------+ + + + + | 07/19/ | Orders Only | [facility] | Sumanth Champion PA | MALLIKA on CPAP (Primary | | 2011 | | SLEEP DISORDER [address] | [address] | Dx) | | | | [address] | [place] | | | | | [place] [id number] | [address] | | | | | [phone] | | | +--------+ + + + [...] [place] | | | | | | [place] | | | | | | [address] | | | | | | | | +--------+---------+ + + + documented as of this encounter Visit Diagnoses + + | Diagnosis | + + | MALLIKA on CPAP - Primary Obstructive sleep apnea (adult) (pediatric) | + + documented in this encounter"
--- OUTSIDE RECORDS SUMMARY | ~2019-07-14 | XMS | Encounter Summary ---
Demographics + + + | Address | [address] [address] [facility] | | | [place] [address] | + + + | Home Phone | | + + + | Preferred Language | Unknown | + + + | Marital Status | Single | + + + | Gnosticism Affiliation | Unknown | + + + | Race | Unknown | + + + | Ethnic Group | Unknown | + + + Author + + + | Author | [facility] | | | and [place] | + + + | Organization | [facility] | | [...] Team Providers + +------+ + | Care Drafter Mechanical Name | Role | Phone | + +------+ + PCP | Unavailable | + +------+ + Encounter Details +--------+ + + + + | Date | Type | Department | Care Team | Description | +--------+ + + + + | 02/19/ | Hospital | [facility] IP | Jovanni Osuna MD | | | 2010 - | Encounter | CONVERSION DEP [id number] | | | | | | MERVAT JO | | | | 02/20/ | | [facility] [place] | | | | 2010 | | [id number] | | | | | | [phone] | | | +--------+ + + + [...] [place] | | | | | | [id number] | | | | | | | | +--------+---------+ + + + documented as of this encounter Procedures + +--------+ + + + | Procedure Name | Priori | Date/Time | Associated Diagnosis | Comments | | | ty | | | | + +--------+ + + + | ECHO COMPLETE W | Routin | 02/20/2011 | | Results for this | | CONTRAST | e | 7:40 AM | | procedure are in the | | | | PDT | | results section. | + +--------+ + + + | CV CARDIAC PROCEDURE | Routin | 02/19/2011 | | Results for this | | | e | 1:03 PM | | procedure are in the | | | | PDT | | results section. | + +--------+ + + + | CV CARDIAC PROCEDURE | Routin | 02/19/2011 | | Results for this | | | e | 1:03 PM | | procedure are in the | | | | PDT | | results section. | + +--------+ + + + documented in this encounter Results ECHO Complete w Contrast (02/20/2011 7:40 AM PDT) + + | Specimen | + + | | + + + + + | Narrative | Performed At | + + + | [place] [address] | | | Patient Name: AASHISH LEMA Date of : | | | 1980 Medical Record: [id number] Account: [id number] | | | Exam Date/Time: 02/20/2011 07:06 Performing | | | Physician: Jovanni Osuna Order Detail: [id number] Exam Description: | | | ECHO CARDIAC ADULT WITH DOPPLER COLOR FLOW | | | | | | INDICATIONS STEMI; post cath ( Definity contrast used | | | ). CONCLUSIONS 1. Overall left ventricular systolic | | | function is normal with, an EF between 65 - 70 %. FINDINGS | | | -------- ECG rhythm: Resting bradycardia (HR<60bpm). Study: A | | | 2-dimensional transthoracic echocardiogram with m-mode, spectral and | | | color flow Doppler was perfomed. Study: This was a technically | | | adequate study. Left Ventricle: Overall left ventricular systolic | | | function is normal with, an EF between 65 - 70 %. Left Ventricle: | | | Left Ventricle ejection fraction by m-mode measures 67%. Left | | | Ventricle: The left ventricle cavity size is normal. Left Ventricle: | | | There is mild concentric left ventricular hypertrophy. Left | | | Ventricle: The diastolic filling pattern is normal for the age of the | | | patient. Left Ventricle: Poor endocardial border definition prevents | | | accurate regional wall motion abnormality identification, but contrast | | | was used at molded candles wicker's discretion to reveal normal wall motion of | | | all wall segments. Right Ventricle: The right ventricle is mildly | | | enlarged measuring between 3.4 - 3.7 cm. Right Ventricle: The right | | | ventricular systolic function is normal. Left Atrium: The left atrium | | | is mildly dilated Left Atrium: , and the LA measures 4.4cm. Right | | | Atrium: The right atrial size is normal Right Atrium: , and the RA | | | measures 4.8cm. Aortic Valve: The aortic valve is trileaflet and | | | appears structurally normal. Aortic Valve: There is no evidence of | | | aortic regurgitation. Mitral Valve: The mitral valve is normal. | | | Mitral Valve: There is trace mitral regurgitation. Tricuspid Valve: | | | The tricuspid valve appears structurally normal. Tricuspid Valve: | | | Trace tricuspid regurgitation present. Pulmonic Valve: The pulmonic | | | valve is normal. Pericardium: There is no pericardial effusion. | | | IVC/Hepatic Veins: The IVC was not well visualized. Mass: No mass | | | visualized Thrombus: No clot visualized Contrast: Poor | | | visualization. Definity was used to opacify the left ventricular | | | chamber and improve delineation of the endocardial border. | | | MEASUREMENTS LA Major: 5.57 cm EDV(Teich): | | | 104.42 ml IVSd: 0.90 cm LVIDd: 4.74 cm LVPWd: 1.21 cm | | | LVOT Diam: 1.95 cm %FS: 41.88 % EF(Teich): 72.80 % | | | ESV(Teich): 28.39 ml IVSs: 1.36 cm LVIDs: 2.75 cm LVPWs: | | | 1.69 cm SV(Teich): 76.02 ml RA Major: 4.84 cm RVIDd: | | | 3.74 cm LVEF MOD A2C: 40.76 % SV MOD A2C: 55.56 ml LVEF MOD | | | A4C: 63.55 % SV MOD A4C: 93.28 ml EF Biplane: 53.67 % | | | LVEDV MOD BP: 140.85 ml LVESV MOD BP: 65.25 ml LVEDV MOD A2C: | | | 136.29 ml LVLd A2C: 8.73 cm LVEDV MOD A4C: 146.77 ml LVLd | | | A4C: 8.78 cm LVESV MOD A2C: 80.72 ml LVLs A2C: 6.63 cm | | | LVESV MOD A4C: 53.49 ml LVLs A4C: 6.71 cm CO Biplane: 3.50 | | | l/min HR: 46.37 BPM R-R: 1293.90 ms LAESV(A-L): 78.74 ml | | | LAESV Index (A-L): 33.08 ml/m2 LAAs A2C: 23.46 cm2 LAESV A-L | | | A2C: 78.57 ml LALs A2C: 5.94 cm LAAs A4C: 22.75 cm2 LAESV | | | A-L A4C: 76.37 ml LALs A4C: 5.75 cm Ao Diam: 3.57 cm AV | | | Cusp: 2.15 cm LA Diam: 4.44 cm LA/Ao: 1.24 %FS: 37.17 % | | | EDV(Teich): 132.71 ml EF(Teich): 66.71 % ESV(Teich): | | | 44.17 ml IVSd: 1.14 cm IVSs: 1.61 cm LVIDd: 5.25 cm | | | LVIDs: 3.30 cm LVPWd: 1.28 cm LVPWs: 1.54 cm SV(Teich): | | | 88.53 ml D-E Excursion: 1.81 cm E-F [place]: 0.06 m/s EPSS: | | | 0.53 cm HR: 61.24 BPM AV maxP.09 mmHg AV meanP.03 | | | mmHg AV Vmax: 1.23 m/s AV Vmean: 0.80 m/s AV VTI: 28.43 | | | cm CHEMO Vmax: 2.54 cm2 CHEMO (VTI): 2.59 cm2 AVET: 314.23 ms | | | LVCI Dopp: 1.78 l/minm2 LVCO Dopp: 4.25 l/min HR: 57.75 | | | BPM LVOT maxP.40 mmHg LVOT meanP.48 mmHg LVSI Dopp: | | | 30.96 ml/m2 LVSV Dopp: 73.69 ml LVOT Vmax: 1.04 m/s LVOT | | | Vmean: 0.74 m/s LVOT VTI: 24.64 cm LIMP: 1.48 MCO: | | | 780.03 ms MV A Fadi: 0.36 m/s MV DecT: 229.37 ms MV E Fadi: | | | 1.07 m/s MV E/A Ratio: 2.93 MV PHT: 61.29 ms MVA By PHT: | | | 3.58 cm2 MV A Dur: 73.93 ms Septal e': 0.11 m/s Septal E/e': | | | 9.31 Lateral e': 0.12 m/s Lateral E/e': 8.46 P Vein A: | | | 0.23 m/s P Vein A Dur: 62.84 ms P Vein D: 0.46 m/s P Vein S/D | | | Ratio: 1.43 P Vein S: 0.66 m/s HR: 70.56 BPM PV maxPG: | | | 2.81 mmHg PV meanP.82 mmHg PV Vmax: 0.83 m/s PV Vmean: | | | 0.65 m/s PV VTI: 22.91 cm TR maxP.24 mmHg TR Vmax: | | | 1.02 m/s TV A Fadi: 0.32 m/s TV Dec [place]: 2.13 m/s2 TV Dec | | | Time: 294.67 ms TV E Fadi: 0.62 m/s TV E/A Ratio: 1.94 | | | Learning Disabilities Resource Teacher: ZIA Authenticated by: Jovanni Osuna Report Date/Time: | | | 02-20-2011 21:59:45 | | + + + + + | Procedure Note | + + | Alonzo Trevizo Conversion - 04/02/2019 5:58 PM [facility] | | [place], [place] [address]Ex: Patient Name: Sadi LEMA of : | | 1980Medical Record: [id number]: [id number] | | Date/Time: 02/20/2011 07:06Performing Physician: Jovanni Bañuelos Detail: | | Description: ECHO CARDIAC ADULT WITH DOPPLER COLOR | | FLOW INDICATIONS | | -STEMI; post cath ( Definity contrast used ). CONCLUSIONS 1. Overall left | | ventricular systolic function is normal with, an EF between 65 - 70 %. | | FINDINGS--------ECG rhythm: Resting bradycardia (HR<60bpm).Study: A 2-dimensional | | transthoracic echocardiogram with m-mode, spectral and color flow Doppler was | | perfomed.Study: This was a technically adequate study.Left Ventricle: Overall left | | ventricular systolic function is normal with, an EF between 65 - 70 %.Left Ventricle: | | Left Ventricle ejection fraction by m-mode measures 67%.Left Ventricle: The left | | ventricle cavity size is normal.Left Ventricle: There is mild concentric left | | ventricular hypertrophy.Left Ventricle: The diastolic filling pattern is normal for the | | age of the patient.Left Ventricle: Poor endocardial border definition prevents accurate | | regional wall motion abnormality identification, but contrast was used at molded candles wicker's | | discretion to reveal normal wall motion of all wall segments.Right Ventricle: The right | | ventricle is mildly enlarged measuring between 3.4 - 3.7 cm.Right Ventricle: The right | | ventricular systolic function is normal.Left Atrium: The left atrium is mildly | | dilatedLeft Atrium: , and the LA measures 4.4cm.Right Atrium: The right atrial size is | | normalRight Atrium: , and the RA measures 4.8cm.Aortic Valve: The aortic valve is | | trileaflet and appears structurally normal.Aortic Valve: There is no evidence of aortic | | regurgitation.Mitral Valve: The mitral valve is normal.Mitral Valve: There is trace | | mitral regurgitation.Tricuspid Valve: The tricuspid valve appears structurally | | normal.Tricuspid Valve: Trace tricuspid regurgitation present.Pulmonic Valve: The | | pulmonic valve is normal.Pericardium: There is no pericardial effusion.IVC/Hepatic | | Veins: The IVC was not well visualized.Mass: No mass visualizedThrombus: No clot | | visualizedContrast: Poor visualization. Definity was used to opacify the left | | ventricular chamber and improve delineation of the endocardial border. | | MEASUREMENTS LA Major: 5.57 cmEDV(Teich): 104.42 mlIVSd: 0.90 cmLVIDd: | | 4.74 cmLVPWd: 1.21 cmLVOT Diam: 1.95 cm%FS: 41.88 %EF(Teich): 72.80 | | %ESV(Teich): 28.39 mlIVSs: 1.36 cmLVIDs: 2.75 cmLVPWs: 1.69 cmSV(Teich): 76.02 | | mlRA Major: 4.84 cmRVIDd: 3.74 cmLVEF MOD A2C: 40.76 %SV MOD A2C: 55.56 mlLVEF | | MOD A4C: 63.55 %SV MOD A4C: 93.28 mlEF Biplane: 53.67 %LVEDV MOD BP: 140.85 | | mlLVESV MOD BP: 65.25 mlLVEDV MOD A2C: 136.29 mlLVLd A2C: 8.73 cmLVEDV MOD A4C: | | 146.77 mlLVLd A4C: 8.78 cmLVESV MOD A2C: 80.72 mlLVLs A2C: 6.63 cmLVESV MOD A4C: | | 53.49 mlLVLs A4C: 6.71 cmCO Biplane: 3.50 l/minHR: 46.37 BPMR-R: 1293.90 | | msLAESV(A-L): 78.74 mlLAESV Index (A-L): 33.08 ml/m2LAAs A2C: 23.46 [id number] A-L | | A2C: 78.57 mlLALs A2C: 5.94 cmLAAs A4C: 22.75 [id number] A-L A4C: 76.37 mlLALs | | A4C: 5.75 cmAo Diam: 3.57 cmAV Cusp: 2.15 cmLA Diam: 4.44 cmLA/Ao: 1.24%FS: | | 37.17 %EDV(Teich): 132.71 mlEF(Teich): 66.71 %ESV(Teich): 44.17 mlIVSd: 1.14 | | cmIVSs: 1.61 cmLVIDd: 5.25 cmLVIDs: 3.30 cmLVPWd: 1.28 cmLVPWs: 1.54 | | cmSV(Teich): 88.53 mlD-E Excursion: 1.81 cmE-F [place]: 0.06 m/sEPSS: 0.53 cmHR: | | 61.24 BPMAV maxP.09 mmHgAV meanP.03 mmHgAV Vmax: 1.23 m/April Vmean: 0.80 | | m/April VTI: 28.43 cmAVA Vmax: 2.54 cm2AVA (VTI): 2.59 zl7OPCU: 314.23 msLVCI | | Dopp: 1.78 l/dcpp2VKGE Dopp: 4.25 l/minHR: 57.75 BPMLVOT maxP.40 mmHgLVOT | | meanP.48 mmHgLVSI Dopp: 30.96 ml/m2LVSV Dopp: 73.69 mlLVOT Vmax: 1.04 | | m/sLVOT Vmean: 0.74 m/sLVOT VTI: 24.64 cmLIMP: 1.48MCO: 780.03 msMV A Fadi: | | 0.36 m/sMV DecT: 229.37 msMV E Fadi: 1.07 m/sMV E/A Ratio: 2.93MV PHT: 61.29 | | msMVA By PHT: 3.58 cm2MV A Dur: 73.93 msSeptal e': 0.11 m/sSeptal E/e': | | 9.31Lateral e': 0.12 m/sLateral E/e': 8.46P Vein A: 0.23 m/sP Vein A Dur: 62.84 | | msP Vein D: 0.46 m/sP Vein S/D Ratio: 1.43P Vein S: 0.66 m/sHR: 70.56 BPMPV | | maxP.81 mmHgPV meanP.82 mmHgPV Vmax: 0.83 m/sPV Vmean: 0.65 m/sPV VTI: | | 22.91 cmTR maxP.24 mmHgTR Vmax: 1.02 m/sTV A Fadi: 0.32 m/sTV Dec [place]: | | 2.13 m/s2TV Dec Time: 294.67 msTV E Fadi: 0.62 m/sTV E/A Ratio: 1.94 Learning Disabilities Resource Teacher: | | ZIAAuthenticated by: Jovanni Tejada Date/Time: 02-20-2011 21:59:45 | |EDV(Teich): 104.42 ml | |IVSd: 0.90 cm | |LVIDd: 4.74 cm | |LVPWd: 1.21 cm | |LVOT Diam: 1.95 cm | |%FS: 41.88 % | |EF(Teich): 72.80 % | |ESV(Teich): 28.39 ml | |IVSs: 1.36 cm | |LVIDs: 2.75 cm | |LVPWs: 1.69 cm | |SV(Teich): 76.02 ml | |RA Major: 4.84 cm | |RVIDd: 3.74 cm | |LVEF MOD A2C: 40.76 % | |SV MOD A2C: 55.56 ml | |LVEF MOD A4C: 63.55 % | |SV MOD A4C: 93.28 ml | |EF Biplane: 53.67 % | |LVEDV MOD BP: 140.85 ml | |LVESV MOD BP: 65.25 ml | |LVEDV MOD A2C: 136.29 ml | |LVLd A2C: 8.73 cm | |LVEDV MOD A4C: 146.77 ml | |LVLd A4C: 8.78 cm | |LVESV MOD A2C: 80.72 ml | |LVLs A2C: 6.63 cm | |LVESV MOD A4C: 53.49 ml | |LVLs A4C: 6.71 cm | |CO Biplane: 3.50 l/min | |HR: 46.37 BPM | |R-R: 1293.90 ms | |LAESV(A-L): 78.74 ml | |LAESV Index (A-L): 33.08 ml/m2 | |LAAs A2C: 23.46 cm2 | |LAESV A-L A2C: 78.57 ml | |LALs A2C: 5.94 cm | |LAAs A4C: 22.75 cm2 | |LAESV A-L A4C: 76.37 ml | |LALs A4C: 5.75 cm | |Ao Diam: 3.57 cm | |AV Cusp: 2.15 cm | |LA Diam: 4.44 cm | |LA/Ao: 1.24 | |%FS: 37.17 % | |EDV(Teich): 132.71 ml | |EF(Teich): 66.71 % | |ESV(Teich): 44.17 ml | |IVSd: 1.14 cm | |IVSs: 1.61 cm | |LVIDd: 5.25 cm | |LVIDs: 3.30 cm | |LVPWd: 1.28 cm | |LVPWs: 1.54 cm | |SV(Teich): 88.53 ml | |D-E Excursion: 1.81 cm | |E-F [place]: 0.06 m/s | |EPSS: 0.53 cm | |HR: 61.24 BPM | |AV maxP.09 mmHg | |AV meanP.03 mmHg | |AV Vmax: 1.23 m/s | |AV Vmean: 0.80 m/s | |AV VTI: 28.43 cm | |CHEMO Vmax: 2.54 cm2 | |CHEMO (VTI): 2.59 cm2 | |AVET: 314.23 ms | |LVCI Dopp: 1.78 l/minm2 | |LVCO Dopp: 4.25 l/min | |HR: 57.75 BPM | |LVOT maxP.40 mmHg | |LVOT meanP.48 mmHg | |LVSI Dopp: 30.96 ml/m2 | |LVSV Dopp: 73.69 ml | |LVOT Vmax: 1.04 m/s | |LVOT Vmean: 0.74 m/s | |LVOT VTI: 24.64 cm | |LIMP: 1.48 | |MCO: 780.03 ms | |MV A Fadi: 0.36 m/s | |MV DecT: 229.37 ms | |MV E Fadi: 1.07 m/s | |MV E/A Ratio: 2.93 | |MV PHT: 61.29 ms | |MVA By PHT: 3.58 cm2 | |MV A Dur: 73.93 ms | |Septal e': 0.11 m/s | |Septal E/e': 9.31 | |Lateral e': 0.12 m/s | |Lateral E/e': 8.46 | |P Vein A: 0.23 m/s | |P Vein A Dur: 62.84 ms | |P Vein D: 0.46 m/s | |P Vein S/D Ratio: 1.43 | |P Vein S: 0.66 m/s | |HR: 70.56 BPM | |PV maxP.81 mmHg | |PV meanP.82 mmHg | |PV Vmax: 0.83 m/s | |PV Vmean: 0.65 m/s | |PV VTI: 22.91 cm | |TR maxP.24 mmHg | |TR Vmax: 1.02 m/s | |TV A Fadi: 0.32 m/s | |TV Dec [place]: 2.13 m/s2 | |TV Dec Time: 294.67 ms | |TV E Fadi: 0.62 m/s | |TV E/A Ratio: 1.94 | | | |Learning Disabilities Resource Teacher: ZIA | |Authenticated by: Jovanni Osuna | |Report Date/Time: 02-20-2011 21:59:45 | + + CV CARDIAC PROCEDURE (02/19/2011 1:03 PM PDT) + + | Specimen | + + | | + + + + + | Narrative | Performed At | + + + | [facility] [address] Ph: | | | Patient Name: AASHISH LEMA V Date of : | | | 1980 Medical Record: [id number] Account: [id number] | | | Exam Date/Time: 02/19/2011 13:10 Ordering | | | Physician: JOVANNI OSUNA Order Detail: [id number] Exam Description: | | | CCL DE STENT INSERTION INITIAL | | | | | | PROCEDURES 1. Selective coronary angiography. 2. Left heart | | | catheterization. 3. Left ventriculography. 4. Percutaneous coronary | | | intervention with stenting of the mid left circumflex artery. 5. | | | Right femoral angiogram for possible closure device deployment. 6. A | | | 6-Djiboutian Angio-Seal deployment at the right arteriotomy site. | | | INDICATIONS The patient is a 30-year-old gentleman who | | | presented to the emergency room at [facility] in [place] | | | complaining of pleuritic chest pain. A 12-lead EKG was suspicious of | | | possible acute inferior wall ST-elevation myocardial infarction. | | | Patient was transferred to [facility] for an | | | emergency cardiac catheterization and possible primary percutaneous | | | coronary intervention. The patient did report that he had another | | | episode of chest pain that was worse in severity back in August. At | | | that time the patient was evaluated in the emergency room and his | | | symptoms were thought to be musculoskeletal in etiology and the | | | patient was discharged. Upon review of the EKG done in August, I do | | | believe there was some subtle ST-segment elevation in the inferior | | | leads. We decided to proceed with an emergency cardiac | | | catheterization in order to assess his coronary anatomy and proceed | | | with possible primary percutaneous intervention. DESCRIPTION OF | | | PROCEDURE The patient presented to the cardiac catheterization lab in | | | the fasting state. An informed consent was obtained from the patient | | | after explaining the risks and benefits of the procedure, as well as | | | alternative options. The right groin area was prepped and draped in | | | the usual sterile fashion. Local anesthesia was given to the right | | | groin with 1% lidocaine. A 6-Djiboutian vascular sheath was inserted in | | | the right femoral artery using the modified Seldinger technique. A | | | JL4 catheter was advanced over the wire under fluoroscopic guidance | | | and engaged selectively with the ostium of the left main coronary | | | artery. Contrast was injected and multiple angiograms were obtained | | | in different angles. The catheter was exchanged over the wire to a | | | JR4 catheter that was engaged selectively with the ostium of the | | | right coronary artery. Contrast was injected and multiple angiograms | | | were obtained in different angles. The catheter was exchanged over | | | the wire to a pigtail catheter that was introduced into the left | | | ventricular cavity. A left ventriculogram was obtained in the | | | 30-degree LEIVA projection using 36 mL of contrast. The pigtail | | | catheter was then exchanged over the wire to a Voda left 3.5 guiding | | | catheter, however could not engage the left main appropriately. This | | | was then exchanged over the wire to a JL4 guiding catheter that was | | | engaged to the ostium of the left main coronary artery. A PCI on the | | | mid left circumflex was then performed as will be described below. | | | After the PCI, the guiding catheter was retrieved over a wire, and a | | | right femoral angiogram was obtained via the side port of the | | | vascular sheath. The sheath was pulled, and a 6-Djiboutian Angio-Seal was | | | deployed at the right arteriotomy site successfully. Hemostasis was | | | achieved in the cardiac catheterization lab, and the patient was | | | transferred out of the catheterization lab in stable condition. | | | FINDINGS HEMODYNAMICS Aortic pressure was 115/69 with a mean | | | aortic pressure of 92. Left ventricular pressure was 118/17 with a | | | left ventricular end-diastolic pressure of 17. There was no | | | significant transaortic pressure gradient on catheter pullback. | | | CORONARY ANGIOGRAPHY 1. Left main was normal. 2. The LAD had a | | | proximal long 30% plaque. 3. The left circumflex had a mid 99% | | | stenosis with some haziness, indicating that this lesion appears | | | to be an unstable plaque. 4. The right coronary artery had mid total | | | occlusion. It was filling distally via both bridging collaterals | | | as well as [id number] collaterals. LEFT VENTRICULOGRAM | | | Revealed normal left ventricular systolic function with an ejection | | | fraction of 55% to 60% with no regional wall motion abnormalities | | | noted in the LEIVA projection. DESCRIPTION OF INTERVENTIONAL | | | PROCEDURE Even though the right coronary artery was totally occluded, | | | given the patient's history and the findings on his 12-lead EKG with | | | Q waves in the inferior leads, I did not believe that this was the | | | infarct-related artery. 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 | | | Nevertheless, I do believe that his symptoms and his presentation are | | | most likely secondary to the stenosis in the left circumflex that | | | appears to be unstable. The JL4 guiding catheter was, therefore, | | | advanced over the wire under fluoroscopic guidance and engaged | | | selectively with the ostium of the left main. The patient was given a | | | total of 7000 units of heparin as well as double bolus of Integrilin | | | without any drips. A therapeutic ACT was achieved; it was 193 | | | seconds. However, the patient was given an additional 1000 units of | | | heparin after that. The stenosis in the mid left circumflex was | | | crossed easily with a BMW wire that was positioned in the distal | | | segment of the left circumflex. Subsequently a Promus 3.5 x 12 mm | | | stent was positioned across the stenosis in the left circumflex and | | | deployed at 9 atmospheres. Multiple angiograms done after stent | | | deployment revealed good wall apposition, no edge dissection, and no | | | residual stenosis. At that point all equipment was retrieved and the | | | procedure was terminated. CONCLUSION 1. Coronary artery disease | | | as described above. 2. Normal left ventricular systolic function with | | | an ejection fraction of 55% to 60%. 3. Minimally elevated left | | | ventricular end-diastolic pressure. 4. Successful percutaneous | | | coronary intervention with stenting of the mid left circumflex | | | artery. The Promus 3.5 x 12 mm stent was deployed at 9 | | | atmospheres with excellent angiographic result. RECOMMENDATIONS | | | The patient was given 60 mg of Effient loading dose in the cardiac | | | catheterization lab. He will be maintained on Effient at 10 mg p.o. | | | every day for a minimum of 1 year in view of drug-eluting stent | | | deployment. He will be maintained on medical therapy with aggressive | | | risk factor modification and will be followed overnight with serial | | | cardiac enzymes and serial electrocardiograms. ESTIMATED BLOOD | | | LOSS Less than 50 mL. P DT: | | | 02/25/2011 12:25 P /[id number]/ Read by JOVANNI OSUNA MD | | | 02/23/2011 12:19 P Electronically signed by JOVANNI OSUNA MD on | | | 03/12/2011 9:02 AM | | + + + + + | Procedure Note | + + | Alonzo Trevizo Conversion - 04/02/2019 5:58 PM PDT | | [facility] | | [facility] [address] | | | | | | Patient Name: AASHISH LEMA V | | Date of : 1980 | | Medical Record: [id number] | | Account: [id number] | | | | | | Exam Date/Time: 02/19/2011 13:10 | | Ordering Physician: JOVANNI OSUNA | | Order Detail: [id number] | | Exam Description: CCL DE STENT INSERTION INITIAL | | | | PROCEDURES | | 1. Selective coronary angiography. | | 2. Left heart catheterization. | | 3. Left ventriculography. | | 4. Percutaneous coronary intervention with stenting of the mid left | | circumflex artery. | | 5. Right femoral angiogram for possible closure device deployment. | | 6. A 6-Djiboutian Angio-Seal deployment at the right arteriotomy site. | | | | INDICATIONS | | The patient is a 30-year-old gentleman who presented to the | | emergency room at [facility] in [place] complaining of | | pleuritic chest pain. A 12-lead EKG was suspicious of possible acute | | inferior wall ST-elevation myocardial infarction. Patient was | | transferred to [facility] for an emergency cardiac | | catheterization and possible primary percutaneous coronary intervention. | | The patient did report that he had another episode of chest pain that | | was worse in severity back in August. At that time the patient was | | evaluated in the emergency room and his symptoms were thought to be | | musculoskeletal in etiology and the patient was discharged. Upon review | | of the EKG done in August, I do believe there was some subtle | | ST-segment elevation in the inferior leads. | | | | We decided to proceed with an emergency cardiac catheterization in order | | to assess his coronary anatomy and proceed with possible primary | | percutaneous intervention. | | | | DESCRIPTION OF PROCEDURE | | The patient presented to the cardiac catheterization lab in the fasting | | state. An informed consent was obtained from the patient after | | explaining the risks and benefits of the procedure, as well as | | alternative options. The right groin area was prepped and draped in the | | usual sterile fashion. Local anesthesia was given to the right groin | | with 1% lidocaine. A 6-Djiboutian vascular sheath was inserted in the right | | femoral artery using the modified Seldinger technique. A JL4 catheter | | was advanced over the wire under fluoroscopic guidance and engaged | | selectively with the ostium of the left main coronary artery. Contrast | | was injected and multiple angiograms were obtained in different angles. | | The catheter was exchanged over the wire to a JR4 catheter that was | | engaged selectively with the ostium of the right coronary artery. | | Contrast was injected and multiple angiograms were obtained in different | | angles. The catheter was exchanged over the wire to a pigtail catheter | | that was introduced into the left ventricular cavity. A left | | ventriculogram was obtained in the 30-degree LEIVA projection using 36 mL | | of contrast. The pigtail catheter was then exchanged over the wire to a | | Voda left 3.5 guiding catheter, however could not engage the left main | | appropriately. This was then exchanged over the wire to a JL4 guiding | | catheter that was engaged to the ostium of the left main coronary | | artery. A PCI on the mid left circumflex was then performed as will be | | described below. After the PCI, the guiding catheter was retrieved over | | a wire, and a right femoral angiogram was obtained via the side port of | | the vascular sheath. The sheath was pulled, and a 6-Djiboutian Angio-Seal | | was deployed at the right arteriotomy site successfully. Hemostasis was | | achieved in the cardiac catheterization lab, and the patient was | | transferred out of the catheterization lab in stable condition. | | | | FINDINGS | | | | HEMODYNAMICS | | Aortic pressure was 115/69 with a mean aortic pressure of 92. | | Left ventricular pressure was 118/17 with a left ventricular | | end-diastolic pressure of 17. | | There was no significant transaortic pressure gradient on catheter | | pullback. | | | | CORONARY ANGIOGRAPHY | | 1. Left main was normal. | | 2. The LAD had a proximal long 30% plaque. | | 3. The left circumflex had a mid 99% stenosis with some haziness, | | indicating that this lesion appears to be an unstable plaque. | | 4. The right coronary artery had mid total occlusion. It was filling | | distally via both bridging collaterals as well as [id number] | | collaterals. | | | | LEFT VENTRICULOGRAM | | Revealed normal left ventricular systolic function with an ejection | | fraction of 55% to 60% with no regional wall motion abnormalities noted | | in the LEIVA projection. | | | | DESCRIPTION OF INTERVENTIONAL PROCEDURE | | Even though the right coronary artery was totally occluded, given the | | patient's history and the findings on his 12-lead EKG with Q waves in | | the inferior leads, I did not believe that this was the infarct-related | | artery. 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 Nevertheless, I do | | believe that his symptoms and his presentation are most likely secondary | | to the stenosis in the left circumflex that appears to be unstable. The | | JL4 guiding catheter was, therefore, advanced over the wire under | | fluoroscopic guidance and engaged selectively with the ostium of the | | left main. The patient was given a total of 7000 units of heparin as | | well as double bolus of Integrilin without any drips. A therapeutic ACT | | was achieved; it was 193 seconds. However, the patient was given an | | additional 1000 units of heparin after that. The stenosis in the mid | | left circumflex was crossed easily with a BMW wire that was positioned | | in the distal segment of the left circumflex. Subsequently a Promus 3.5 | | x 12 mm stent was positioned across the stenosis in the left circumflex | | and deployed at 9 atmospheres. Multiple angiograms done after stent | | deployment revealed good wall apposition, no edge dissection, and no | | residual stenosis. At that point all equipment was retrieved and the | | procedure was terminated. | | | | CONCLUSION | | 1. Coronary artery disease as described above. | | 2. Normal left ventricular systolic function with an ejection fraction | | of 55% to 60%. | | 3. Minimally elevated left ventricular end-diastolic pressure. | | 4. Successful percutaneous coronary intervention with stenting of the | | mid left circumflex artery. The Promus 3.5 x 12 mm stent was deployed | | at 9 atmospheres with excellent angiographic result. | | | | RECOMMENDATIONS | | The patient was given 60 mg of Effient loading dose in the cardiac | | catheterization lab. He will be maintained on Effient at 10 mg p.o. | | every day for a minimum of 1 year in view of drug-eluting stent | | deployment. He will be maintained on medical therapy with aggressive | | risk factor modification and will be followed overnight with serial | | cardiac enzymes and serial electrocardiograms. | | | | ESTIMATED BLOOD LOSS | | Less than 50 mL. | | | | | | P | | P | | /[id number]/ | | | | Read by | | JOVANNI OSUNA MD 02/23/2011 12:19 P | | | | | + + CV CARDIAC PROCEDURE (02/19/2011 1:03 PM PDT) + + | Specimen | + + | | + + + + + | Narrative | Performed At | + + + | [facility] [address] Ph: | | | Patient Name: AASHISH LEMA V Date of : | | | 1980 Medical Record: [id number] Account: [id number] | | | Exam Date/Time: 02/19/2011 11:59 Ordering | | | Physician: JOVANNI OSUNA Order Detail: [id number] Exam Description: | | | [facility] CORONARY ANGIO | | | | | | PROCEDURES 1. Selective coronary angiography. 2. Left heart | | | catheterization. 3. Left ventriculography. 4. Percutaneous coronary | | | intervention with stenting of the mid left circumflex artery. 5. | | | Right femoral angiogram for possible closure device deployment. 6. A | | | 6-Djiboutian Angio-Seal deployment at the right arteriotomy site. | | | INDICATIONS The patient is a 30-year-old gentleman who | | | presented to the emergency room at [facility] in [place] | | | complaining of pleuritic chest pain. A 12-lead EKG was suspicious of | | | possible acute inferior wall ST-elevation myocardial infarction. | | | Patient was transferred to [facility] for an | | | emergency cardiac catheterization and possible primary percutaneous | | | coronary intervention. The patient did report that he had another | | | episode of chest pain that was worse in severity back in August. At | | | that time the patient was evaluated in the emergency room and his | | | symptoms were thought to be musculoskeletal in etiology and the | | | patient was discharged. Upon review of the EKG done in August, I do | | | believe there was some subtle ST-segment elevation in the inferior | | | leads. We decided to proceed with an emergency cardiac | | | catheterization in order to assess his coronary anatomy and proceed | | | with possible primary percutaneous intervention. DESCRIPTION OF | | | PROCEDURE The patient presented to the cardiac catheterization lab in | | | the fasting state. An informed consent was obtained from the patient | | | after explaining the risks and benefits of the procedure, as well as | | | alternative options. The right groin area was prepped and draped in | | | the usual sterile fashion. Local anesthesia was given to the right | | | groin with 1% lidocaine. A 6-Djiboutian vascular sheath was inserted in | | | the right femoral artery using the modified Seldinger technique. A | | | JL4 catheter was advanced over the wire under fluoroscopic guidance | | | and engaged selectively with the ostium of the left main coronary | | | artery. Contrast was injected and multiple angiograms were obtained | | | in different angles. The catheter was exchanged over the wire to a | | | JR4 catheter that was engaged selectively with the ostium of the | | | right coronary artery. Contrast was injected and multiple angiograms | | | were obtained in different angles. The catheter was exchanged over | | | the wire to a pigtail catheter that was introduced into the left | | | ventricular cavity. A left ventriculogram was obtained in the | | | 30-degree LEIVA projection using 36 mL of contrast. The pigtail | | | catheter was then exchanged over the wire to a Voda left 3.5 guiding | | | catheter, however could not engage the left main appropriately. This | | | was then exchanged over the wire to a JL4 guiding catheter that was | | | engaged to the ostium of the left main coronary artery. A PCI on the | | | mid left circumflex was then performed as will be described below. | | | After the PCI, the guiding catheter was retrieved over a wire, and a | | | right femoral angiogram was obtained via the side port of the | | | vascular sheath. The sheath was pulled, and a 6-Djiboutian Angio-Seal was | | | deployed at the right arteriotomy site successfully. Hemostasis was | | | achieved in the cardiac catheterization lab, and the patient was | | | transferred out of the catheterization lab in stable condition. | | | FINDINGS HEMODYNAMICS Aortic pressure was 115/69 with a mean | | | aortic pressure of 92. Left ventricular pressure was 118/17 with a | | | left ventricular end-diastolic pressure of 17. There was no | | | significant transaortic pressure gradient on catheter pullback. | | | CORONARY ANGIOGRAPHY 1. Left main was normal. 2. The LAD had a | | | proximal long 30% plaque. 3. The left circumflex had a mid 99% | | | stenosis with some haziness, indicating that this lesion appears | | | to be an unstable plaque. 4. The right coronary artery had mid total | | | occlusion. It was filling distally via both bridging collaterals | | | as well as [id number] collaterals. LEFT VENTRICULOGRAM | | | Revealed normal left ventricular systolic function with an ejection | | | fraction of 55% to 60% with no regional wall motion abnormalities | | | noted in the LEIVA projection. DESCRIPTION OF INTERVENTIONAL | | | PROCEDURE Even though the right coronary artery was totally occluded, | | | given the patient's history and the findings on his 12-lead EKG with | | | Q waves in the inferior leads, I did not believe that this was the | | | infarct-related artery. 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 | | | Nevertheless, I do believe that his symptoms and his presentation are | | | most likely secondary to the stenosis in the left circumflex that | | | appears to be unstable. The JL4 guiding catheter was, therefore, | | | advanced over the wire under fluoroscopic guidance and engaged | | | selectively with the ostium of the left main. The patient was given a | | | total of 7000 units of heparin as well as double bolus of Integrilin | | | without any drips. A therapeutic ACT was achieved; it was 193 | | | seconds. However, the patient was given an additional 1000 units of | | | heparin after that. The stenosis in the mid left circumflex was | | | crossed easily with a BMW wire that was positioned in the distal | | | segment of the left circumflex. Subsequently a Promus 3.5 x 12 mm | | | stent was positioned across the stenosis in the left circumflex and | | | deployed at 9 atmospheres. Multiple angiograms done after stent | | | deployment revealed good wall apposition, no edge dissection, and no | | | residual stenosis. At that point all equipment was retrieved and the | | | procedure was terminated. CONCLUSION 1. Coronary artery disease | | | as described above. 2. Normal left ventricular systolic function with | | | an ejection fraction of 55% to 60%. 3. Minimally elevated left | | | ventricular end-diastolic pressure. 4. Successful percutaneous | | | coronary intervention with stenting of the mid left circumflex | | | artery. The Promus 3.5 x 12 mm stent was deployed at 9 | | | atmospheres with excellent angiographic result. RECOMMENDATIONS | | | The patient was given 60 mg of Effient loading dose in the cardiac | | | catheterization lab. He will be maintained on Effient at 10 mg p.o. | | | every day for a minimum of 1 year in view of drug-eluting stent | | | deployment. He will be maintained on medical therapy with aggressive | | | risk factor modification and will be followed overnight with serial | | | cardiac enzymes and serial electrocardiograms. ESTIMATED BLOOD | | | LOSS Less than 50 mL. P DT: | | | 02/25/2011 12:25 P /[id number]/[id number]/ Read by JOVANNI OSUNA MD | | | 02/23/2011 12:19 P Electronically signed by JOVANNI OSUNA MD on | | | 03/12/2011 9:02 AM | | + + + + + | Procedure Note | + + | Alonzo Trevizo Conversion - 04/02/2019 5:58 PM PDT | | [facility] | | [facility] [address] | | | | | | Patient Name: AASHISH LEMA V | | Date of : 1980 | | Medical Record: [id number] | | Account: [id number] | | | | | | Exam Date/Time: 02/19/2011 11:59 | | Ordering Physician: JOVANNI OSUNA | | Order Detail: [id number] | | Exam Description: [facility] CORONARY ANGIO | | | | PROCEDURES | | 1. Selective coronary angiography. | | 2. Left heart catheterization. | | 3. Left ventriculography. | | 4. Percutaneous coronary intervention with stenting of the mid left | | circumflex artery. | | 5. Right femoral angiogram for possible closure device deployment. | | 6. A 6-Djiboutian Angio-Seal deployment at the right arteriotomy site. | | | | INDICATIONS | | The patient is a 30-year-old gentleman who presented to the | | emergency room at [facility] in [place] complaining of | | pleuritic chest pain. A 12-lead EKG was suspicious of possible acute | | inferior wall ST-elevation myocardial infarction. Patient was | | transferred to [facility] for an emergency cardiac | | catheterization and possible primary percutaneous coronary intervention. | | The patient did report that he had another episode of chest pain that | | was worse in severity back in August. At that time the patient was | | evaluated in the emergency room and his symptoms were thought to be | | musculoskeletal in etiology and the patient was discharged. Upon review | | of the EKG done in August, I do believe there was some subtle | | ST-segment elevation in the inferior leads. | | | | We decided to proceed with an emergency cardiac catheterization in order | | to assess his coronary anatomy and proceed with possible primary | | percutaneous intervention. | | | | DESCRIPTION OF PROCEDURE | | The patient presented to the cardiac catheterization lab in the fasting | | state. An informed consent was obtained from the patient after | | explaining the risks and benefits of the procedure, as well as | | alternative options. The right groin area was prepped and draped in the | | usual sterile fashion. Local anesthesia was given to the right groin | | with 1% lidocaine. A 6-Djiboutian vascular sheath was inserted in the right | | femoral artery using the modified Seldinger technique. A JL4 catheter | | was advanced over the wire under fluoroscopic guidance and engaged | | selectively with the ostium of the left main coronary artery. Contrast | | was injected and multiple angiograms were obtained in different angles. | | The catheter was exchanged over the wire to a JR4 catheter that was | | engaged selectively with the ostium of the right coronary artery. | | Contrast was injected and multiple angiograms were obtained in different | | angles. The catheter was exchanged over the wire to a pigtail catheter | | that was introduced into the left ventricular cavity. A left | | ventriculogram was obtained in the 30-degree LEIVA projection using 36 mL | | of contrast. The pigtail catheter was then exchanged over the wire to a | | Voda left 3.5 guiding catheter, however could not engage the left main | | appropriately. This was then exchanged over the wire to a JL4 guiding | | catheter that was engaged to the ostium of the left main coronary | | artery. A PCI on the mid left circumflex was then performed as will be | | described below. After the PCI, the guiding catheter was retrieved over | | a wire, and a right femoral angiogram was obtained via the side port of | | the vascular sheath. The sheath was pulled, and a 6-Djiboutian Angio-Seal | | was deployed at the right arteriotomy site successfully. Hemostasis was | | achieved in the cardiac catheterization lab, and the patient was | | transferred out of the catheterization lab in stable condition. | | | | FINDINGS | | | | HEMODYNAMICS | | Aortic pressure was 115/69 with a mean aortic pressure of 92. | | Left ventricular pressure was 118/17 with a left ventricular | | end-diastolic pressure of 17. | | There was no significant transaortic pressure gradient on catheter | | pullback. | | | | CORONARY ANGIOGRAPHY | | 1. Left main was normal. | | 2. The LAD had a proximal long 30% plaque. | | 3. The left circumflex had a mid 99% stenosis with some haziness, | | indicating that this lesion appears to be an unstable plaque. | | 4. The right coronary artery had mid total occlusion. It was filling | | distally via both bridging collaterals as well as [id number] | | collaterals. | | | | LEFT VENTRICULOGRAM | | Revealed normal left ventricular systolic function with an ejection | | fraction of 55% to 60% with no regional wall motion abnormalities noted | | in the LEIVA projection. | | | | DESCRIPTION OF INTERVENTIONAL PROCEDURE | | Even though the right coronary artery was totally occluded, given the | | patient's history and the findings on his 12-lead EKG with Q waves in | | the inferior leads, I did not believe that this was the infarct-related | | artery. 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 Nevertheless, I do | | believe that his symptoms and his presentation are most likely secondary | | to the stenosis in the left circumflex that appears to be unstable. The | | JL4 guiding catheter was, therefore, advanced over the wire under | | fluoroscopic guidance and engaged selectively with the ostium of the | | left main. The patient was given a total of 7000 units of heparin as | | well as double bolus of Integrilin without any drips. A therapeutic ACT | | was achieved; it was 193 seconds. However, the patient was given an | | additional 1000 units of heparin after that. The stenosis in the mid | | left circumflex was crossed easily with a BMW wire that was positioned | | in the distal segment of the left circumflex. Subsequently a Promus 3.5 | | x 12 mm stent was positioned across the stenosis in the left circumflex | | and deployed at 9 atmospheres. Multiple angiograms done after stent | | deployment revealed good wall apposition, no edge dissection, and no | | residual stenosis. At that point all equipment was retrieved and the | | procedure was terminated. | | | | CONCLUSION | | 1. Coronary artery disease as described above. | | 2. Normal left ventricular systolic function with an ejection fraction | | of 55% to 60%. | | 3. Minimally elevated left ventricular end-diastolic pressure. | | 4. Successful percutaneous coronary intervention with stenting of the | | mid left circumflex artery. The Promus 3.5 x 12 mm stent was deployed | | at 9 atmospheres with excellent angiographic result. | | | | RECOMMENDATIONS | | The patient was given 60 mg of Effient loading dose in the cardiac | | catheterization lab. He will be maintained on Effient at 10 mg p.o. | | every day for a minimum of 1 year in view of drug-eluting stent | | deployment. He will be maintained on medical therapy with aggressive | | risk factor modification and will be followed overnight with serial | | cardiac enzymes and serial electrocardiograms. | | | | ESTIMATED BLOOD LOSS | | Less than 50 mL. | | | | | | P | | P | | /[id number]/[id number]/ | | | | Read by | | JOVANNI OSUNA MD 02/23/2011 12:19 P | | | | | + + documented in this encounter Visit Diagnoses Not on filedocumented in this encounter"
--- OUTSIDE RECORDS SUMMARY | ~2019-07-14 | XMS | Encounter Summary ---
Demographics + + + | Address | [address] | | | [place] [address] | + + + | Home Phone [...] + + | Author | 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
--- OUTSIDE RECORDS SUMMARY | ~2019-07-14 | XMS | Encounter Summary ---
Demographics + + + | Address | [address] | | | [place] [address] | + + + | Home Phone [...] + + + | Author | [employer] [facility] | + + + | Organization | [facility] | [...] Team Providers + +------+ + | Care Pedal Assembler Name | Role | Phone | [...] Refill Request | | 2011 | | [facility] [address] | [address] | | | | | [place] Mailcode: CH8N | [address] | | | | | [facility] | [place], [place] | | | | | jannette [place], | [address] | | | | | [address] | [phone] | | | | | [place], [place] | | | | | | [address] | | | | | | [phone] | | | +--------+--------+ + + + [...] | | 2019 | Visit | | [address] | | | | | | [address] | | | | | | [place], [place] | | | | | | [address] | | | | | | [phone] | | | | | | | [...]
--- OUTSIDE RECORDS SUMMARY | ~2019-07-14 | XMS | Encounter Summary ---
Demographics + + + | Address | [address] | | | [place] [address] | + + + | Home Phone [...] + + | Author | [employer] [facility] | + + + | Organization | [facility] | + [...] Team Providers + +------+ + | Care Filtration Operator Name | Role | Phone | [...] Description | +--------+--------+ + + + | 07/21/ | Refill | Neurosurgery at | Donnie, | Refill Request | | 2011 | | [facility] [address] | Cathie, | | | | | [place] Mailcode: CH8N | DNP,SUGAR MIXER,[place] [address] | | | | | [facility] | [address] [place], | | | | | and Healing, | [place] [address] | | | | | [address] | [phone] | | | | | [place], [place] | | | | | | [address] | | | | | | [phone] | | | +--------+--------+ + + + [...] [address] | | | | | | [place], [place] | | | | | | [address] | | | | | | [phone] | | | | | | | | +--------+---------+ + + + documented as of this encounter Visit Diagnoses Not on filedocumented in this encounter"
--- OUTSIDE RECORDS SUMMARY | ~2019-07-14 | XMS | Encounter Summary ---
Demographics + + + | Address | [address] | | | [place] [address] | + + + | Home Phone [...] + + + | Author | [place] [employer] [facility] | + + + | Organization | [facility] | + + + | Address | Unknown | + + + | Phone | Unavailable | + + + Support + + +---------+ + | Name | Relationship | Address | Phone | + + +---------+ + | Alexandria Dixon | ECON | Unknown | | + + +---------+ + Care Team Providers + +------+ + | Care Varnisher Apprentice Name | Role | Phone | + [...] | Chest pain, | [place], | [address] | | | | | unspecified | [address] | [address] | | | | | type | [address] | [address] | | | | | Coronary | [address] | Mailcode: | | | | | artery | [facility], [place] | [address] | | | | | disease of | [address] | [address] | | | | | venetie | Phone: | [place], [place] | | | | | artery of | [phone] | [address] | | | | | venetie heart | Fax: | Phone: | | | | | with stable | [phone] | [phone] | | | | | angina | | Fax: | | | | | pectoris | | [phone] | | | | | (HCC) | [...] | | | | | | | TN HT MUSCLE | | | | | | | IMAGE | | | | | | | SPECT, MULT | | | +--------+--------+ + + + + Reason for Visit +--------+ + | Reason | Comments | +--------+ + | Angina | recurrent angina post cath | +--------+ + Encounter Details +--------+ + + + + | Date | Type | Department | Care Team | Description | +--------+ + + + + | 05/04/ | MyChart | Cardiology General | Zuleika Hernandez, | RE: Chest Pains | | 2018 | Encounter | at [facility] [address] | [address] | | | | | [address] Mailcode: | [facility] | | | | | [address] for | [place], [place] | | | | | Health and Healing, | [address] | | | | | [place] [address] [facility] | [phone] | | | | | [place], [place] | | | | | | [address] | | | | | | [phone] | | | +--------+ + + + [...] Rd | | | | | | [place], [place] | | | | | | [address] | | | | | | [phone] | | | | | | | | +--------+---------+ + + + + +------+--------+ + + | Name | Type | Priori | Associated Diagnoses | Order Schedule | | | | ty | | | + +------+--------+ + + | 12 LEAD ECG | ECG | Routin | Chest pain, | Ordered: 2018 | | | | e | unspecified type | | + +------+--------+ + + documented as of this encounter Results NM MYOCARDIAL PERFUSION (SPECT) MULTIPLE STUDIES WITH EXERCISE (06/30/2018 10:38 AM PST) + + | Specimen | + + | | + + + + + | Narrative | Performed At | + + + | [facility] STRESS/REST MYOCARDIAL PERFUSION STUDY: 06/30/2018 9:06 AM | [facility] | | HISTORY: 38 years of age, Male, with history of chronic chest pain | RADIOLOGY VOICE | | and stable angina with high probability of CAD, referred for | RECOGNITION 2 | | evaluation of myocardial perfusion. COMPARISON: None. | | | TECHNIQUE: Radiopharmaceutical: Tc-99m tetrofosmin 38.9 mCi IV for | | | the stress study and 40.8 mCi IV for the rest study. This is a two | | | day study. The rest portion of the study was performed on 06/30/2018 | | | . Gated SPECT imaging was acquired one hour after injection. The | | | stress portion of the study was performed on 06/29/2018 under the | | | supervision of nursing. EKG findings, BP, and other pertinent | | | details are recorded in the chart. A standard dose of 0.4 mg of | | | Regadenoson was given as an IV bolus over 10 seconds followed | | | immediately by a 5 mL saline flush. The stress dose of the radiotracer | | | was injected 20 seconds after initiation of Regadenoson | | | administration. Gated SPECT images were acquired one hour after the | | | conclusion of the infusion. Please refer to the Cardiology report for | | | an official interpretation of the EKG. FINDINGS: On stress and | | | rest projection images, there is no patient motion. There is no | | | significant tissue attenuation. The heart is mildly enlarged. | | | There is normal radiopharmaceutical distribution to the left | | | ventricular myocardium on both the stress and rest portions of the | | | study. There are no perfusion defects to suggest myocardial infarction | | | or stress-induced ischemia. There is physiological apical thinning. | | | The gated study was analyzed for function and wall motion. Left | | | ventricle wall motion and brightening is normal. LVEF is calculated to | | | be 61%. The low dose CT performed for attenuation correction was | | | reviewed; no significant abnormalities visualized. IMPRESSION: | | | No scintigraphic evidence of myocardial infarction or ischemia.. LVEF | | | calculated at 61%. Low risk study. Study interpreted with | | | Nitin Castle from Cardiology. I have personally reviewed the | | | images and, if necessary, edited the report. I agree with the report | | | as now presented. Final signature: Edgar Obrien MD | | | 06/30/2018 4:39 PM Preliminary: Bee Bal MD 06/30/2018 | | | 4:23 PM Dictation initiated: Bee Bal MD 06/30/2018 | | | 10:56 AM | | + + + + + | Procedure Note | + + | Service Account, Zipnosis In Interface - 07/08/2018 12:30 PM CESAR FLETCHER | | STRESS/REST MYOCARDIAL PERFUSION STUDY: 06/30/2018 9:06 AM HISTORY: 38 years of age, | | Male, with history of chronic chest pain and stable angina with high probability of CAD, | | referred for evaluation of myocardial perfusion. COMPARISON: None. TECHNIQUE: | | Radiopharmaceutical: Tc-99m tetrofosmin 38.9 mCi IV for the stress study and 40.8 mCi IV | | for the rest study.This is a two day study. The rest portion of the study was performed | | on 06/30/2018 . Gated SPECT imaging was acquired one hour after injection. The stress | | portion of the study was performed on 06/29/2018 under the supervision of nursing. EKG | | findings, BP, and other pertinent details are recorded in the chart. A standard dose of | | 0.4 mg of Regadenoson was given as an IV bolus over 10 seconds followed immediately by a | | 5 mL saline flush. The stress dose of the radiotracer was injected 20 seconds after | | initiation of Regadenoson administration. Gated SPECT images were acquired one hour | | after the conclusion of the infusion.Please refer to the Cardiology report for an | | official interpretation of the EKG. FINDINGS:On stress and rest projection images, there | | is no patient motion. There is no significant tissue attenuation. The heart is mildly | | enlarged. There is normal radiopharmaceutical distribution to the left ventricular | | myocardium on both the stress and rest portions of the study. There are no perfusion | | defects to suggest myocardial infarction or stress-induced ischemia. There is | | physiological apical thinning. The gated study was analyzed for function and wall | | motion. Left ventricle wall motion and brightening is normal. LVEF is calculated to be | | 61%. The low dose CT performed for attenuation correction was reviewed; no significant | | abnormalities visualized. IMPRESSION: No scintigraphic evidence of myocardial infarction | | or ischemia.. LVEF calculated at 61%. Low risk study. Study interpreted with Dr. | | Nitin Castle from Cardiology. I have personally reviewed the images and, if | | necessary, edited the report. I agree with the report as now presented. Final | | signature: Edgar Obrien MD 06/30/2018 4:39 PM Preliminary: Bee Bal MD | | 06/30/2018 4:23 PM Dictation initiated: Bee Bal MD 06/30/2018 10:56 AM | |No scintigraphic evidence of myocardial infarction or ischemia.. LVEF calculated at 61%. Lo w risk study. | | | |Study interpreted with Dr. Nitin Castle from Cardiology. | | | | | |I have personally reviewed the images and, if necessary, edited the report. I agree with th e report as now presented. | | | |Final signature: Edgar Obrien MD 06/30/2018 4:39 PM | |Preliminary: Bee Bal MD 06/30/2018 4:23 PM | |Dictation initiated: Bee Bal MD 06/30/2018 10:56 AM | + + + +---------+ + + | Performing | Address | City/State/Zipcode | Phone Number | | Organization | | | | + +---------+ + + | [facility] | | | | | VOICE RECOGNITION 2 | | | | + +---------+ + + ECG TRACING FOR STRESS NUCLEAR MEDICINE (06/29/2018 [...] SPECT | | | | | | [id number] | | | | | | perfusion [...] + + | [facility] | [address] | [place], [place] | | | CARDIOLOGY | [address] | [address] | | + + + + + documented in this encounter Visit Diagnoses + + | Diagnosis | + + | Chest pain, unspecified type - Primary | + + | 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
--- OUTSIDE RECORDS SUMMARY | ~2019-07-14 | XMS | Encounter Summary ---
Demographics + + + | Address | [address] | | | [place] [address] | + + + | Home Phone [...] + + + | Author | [place] [employer] [facility] | + + + | Organization | [facility] | + + + | [...] Refill Request | | 2014 | | [facility] [address] | [place], | | | | | [place] Mailcode: CH8N | DNP,VP PROJECT,[place] [address] | | | | | [facility] | [address] [place], | | | | | and Healing, | [place] [address] | | | | | Building [address] | [phone] | | | | | [place], [place] | | | | | | [address] | | | | | | [phone] | | | +--------+--------+ + + + [...] | | | | | | [place], [place] | | | | | | [address] | | | | | | [phone] | | | | | | | | +--------+---------+ + + + documented as of this encounter Visit Diagnoses Not on filedocumented in this encounter"
--- OUTSIDE RECORDS SUMMARY | ~2019-07-14 | XMS | Encounter Summary ---
Demographics + + + | Address | [address] | | | [place] [address] | + + + | Home Phone [...] + + + | Author | [place] [employer] [facility] | + + + | Organization | [facility] | + [...] Team Providers + +------+ + | Care Slitter Scorer Name | Role | Phone | + [...] Description | +--------+--------+ + + + | 01/27/ | Refill | Neurosurgery at | [place], | Refill Request | | 2019 | | [facility] [address] | [place], | | | | | [place] Mailcode: CH8N | DNP,LITERACY EDUCATION PROFESSOR,[place] [address] | | | | | [facility] | [address] [place], | | | | | and Healing, | [place] [address] | | | | | [address] | [phone] | | | | | [place], [place] | | | | | | [address] | | | | | | [phone] | | | +--------+--------+ + + + [...] Rd | | | | | | [place], [place] | | | | | | [address] | | | | | | [phone] | | | | | | | | +--------+---------+ + + + documented as of this encounter Visit Diagnoses + + | Diagnosis | + + | Panhypopituitarism (HCC) Panhypopituitarism | + + documented in this encounter"
--- OUTSIDE RECORDS SUMMARY | ~2019-07-14 | XMS | Encounter Summary ---
Demographics + + + | Address | [address] | | | [place] [address] | + + + | Home Phone [...] + + + | Author | [place] [employer] [facility] | + + + | Organization | [facility] | + + + | Address | Unknown | + + + | Phone | Unavailable | + + + Support + + +---------+ + | Name | Relationship | Address | Phone | + + +---------+ + | Alexandria Dixon | ECON | Unknown | | + + +---------+ + Care Team Providers + +------+ + | Care Passenger Tire Builder Name | Role | Phone | + [...] | | | | | adenoma | DNP,HARD ROCK DRILL OPERATOR,[place] | DNP,HARD [place]OCK DRILL OPERATOR,[place] | | | | | (HCC) Other | [address] | [address] | | | | | 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 | | | | | hypofunction | [place], [place] | [place], [place] | | | | | Pituitary | [address] | [address] | | | | | dwarfism | Phone: | Phone: | | | | | (HCC) | [phone] | [phone] | | | | | Glucocortico | Fax: | Fax: | | | | | id | [phone] | [phone] | | | | | deficiency | | | | | | | (HCC) | | | | | | | 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 | | | | | | | (HCC) | | | | | | | Procedures | | | | | | | MI | | | | | | | OFFICE/OUTPT | | | | | | | | | | | | | | VISIT,EST,LE | | | | | | | VL I MI | | | | | | | OFFICE/OUTPT | | | | | | | | | | | | | | VISIT,EST,LE | | | | | | | VL II MI | | | | | | | OFFICE/OUTPT | | | | | | | | | | | | | | VISIT,EST,LE | | | | | | | LISHA III MI | | | | | | | OFFICE/OUTPT | | | | | | | | | | | | | | VISIT,EST,LE | | | | | | | VL IV MI | | | | | | | [...] adenoma | | 2015 | Visit | [facility] [address] | [place] | ([facility]) (Primary Dx); | | | | [place] Mailcode: 8N | DNP,HARD ROCK DRILL OPERATOR,[place] [address] | 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[place] for [facility] | [address] [place], | deficiency ([facility]); | | | | and Healing, | [place] [address] | Diabetes insipidus | | | | Building [address] | [phone] | ([facility]); Hypogonadism | | | | [place], [place] | | male; Postoperative | | | | [address] | | hypothyroidism; | | | | [phone] | | Adrenal | | | | | | insufficiency ([facility]) | +--------+---------+ + + + Social History [...] in this encounter Progress Notes Cathie Fields, SANIYA,HARD ROCK DRILL OPERATOR,[place] - 06/22/2015 9:24 AM PSTFormatting of this [...] cardiac stent place 02/2011 after a n MS. At this visit; Symptoms and Complaints: Headache: [...] CREATININE PLASMA (LAB) 0.70-1.30 mg/dL EGFR - SURINAMESE >60 mL/min EGFR NON -SURINAMESE >60 mL/min SODIUM, PLASMA (LAB) 136-145 mmol/L [...] PLASMA (LAB) 0.70-1.30 mg/dL 0.81 EGFR - SURINAMESE >60 mL/min >60 EGFR NON -SURINAMESE >60 mL/min >60 SODIUM, PLASMA (LAB) 136-145 [...] With labs MRI now. CATHIE FIELDS DNP, HARD ROCK DRILL OPERATOR, [place] Linux Server Engineer [facility] [place] [address] [facility] [address] Component Latest Ref Rng 06/22/2015 06/22/2015 06/22/2015 10:26 AM 10:26 AM 10:26 AM GLUCOSE, PLASMA (LAB) 60-99 mg/dL BUN, PLASMA (LAB) 6-20 mg/dL CREATININE PLASMA (LAB) 0.70-1.30 mg/dL EGFR - SURINAMESE >60 mL/min EGFR NON -SURINAMESE >60 mL/min SODIUM, PLASMA (LAB) 136-145 mmol/L [...] PLASMA (LAB) 0.70-1.30 mg/dL 0.95 EGFR - SURINAMESE >60 mL/min >60 EGFR NON -SURINAMESE >60 mL/min >60 SODIUM, PLASMA (LAB) 136-145 [...] GI eval. CATHIE FIELDS DNP, [place], [place] Linux Server Engineer [facility] [address] [facility] [address] documented in this encounter Plan of Treatment +--------+---------+ + + + | Date | Type | Specialty | Care Team | Description | +--------+---------+ + + + | 08/15/ | Office | Cardiology | Zuleika Hernandez, | | | 2019 | Visit | | [id number] | | | | | | [address] | | | | | | [place], [place] | | | | | | [address] | | | | | | [phone] | | | | | | | [...] + + + + | [facility] | [address] | [place] [address] | | | SERVICES, CORE | PARK [...] | + + + + + | [facility] | [address] | [place] [address] | | | SERVICES, SPECIAL | PARK [...] [facility] | [address] | [place] [address] | | | SERVICES, SPECIAL | PARK [...] + + + + | [facility] | [address] | [place] [address] | | | SERVICES, CORE | [address] [...] | | | this test in the [employer] | | | | | | Laboratory Test | | | | | | Directory | | | | | | ([employer]).Performed | | | | | | by [employer] [facility],[address] | | | | | | [address], [facility],[place] | | | | | | [address] | | | | | | [phone][employer]. | | | | | | [facility], Dariel Tobin, | | | | | [...] [facility] | [address] | [place], [place] | | | [facility] | | [address] | | + + + + + [...] + | [facility] | [address] | [place] [address] | | | [facility] | | | | + + + [...] + | [facility] | [address] | [place] [address] | | | [place] | | | | + + + [...] [facility] | [address] | [place] [address] | | | SERVICES, CORE | [address] [...] + + + + | [facility] | [address] | [place] [address] | | | SERVICES, CORE | [address] | | | + + + + + documented in this encounter Visit Diagnoses + + | Diagnosis | + + | Pituitary adenoma (HCC) - Primary Benign neoplasm of pituitary gland and | | craniopharyngeal duct (pouch) | + + | 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
--- OUTSIDE RECORDS SUMMARY | ~2019-07-14 | XMS | Encounter Summary ---
Demographics + + + | Address | [address] | | | [place] [address] | + + + | Home Phone [...] + + | Author | [place] [employer] [facility] | + [...] Team Providers + +------+ + | Care Patent Chemist Name | Role | Phone | + +------+ + | Priscilla Ramírez PA-C | PCP | | + +------+ + Encounter Details +--------+ + + + + | Date | Type | Department | Care Team | Description | +--------+ + + + + | 09/15/ | Hospital | Registration [address]181 | Reuben Styles, | | | 2005 | Activity | [address] | | | | | | Abdoulaye Mailcode: [id number] | | | | | | [place], [place] | | | | | | [address] | | | | | | [phone] | | | +--------+ + + + [...] Rd | | | | | | [place], [place] | | | | | | [address] | | | | | | [phone] | | | | | | | | +--------+---------+ + + + documented as of this encounter Procedures + +--------+ + + + | Procedure Name | Priori | Date/Time | Associated Diagnosis | Comments | | | ty | | | | + +--------+ + + + | SODIUM, PLASMA | Routin | 09/17/2005 | | Results for this | | | e | 10:01 PM | | procedure are in the | | | | PST | | results section. | + +--------+ + + + | SODIUM, PLASMA | Routin | 09/17/2005 | | Results for this | | | e | 4:01 PM | | procedure are in the | | | | PST | | results section. | + +--------+ + + + | SODIUM, PLASMA | Routin | 09/17/2005 | | Results for this | | | e | 10:01 AM | | procedure are in the | | | | PST | | results section. | + +--------+ + + + | SODIUM, PLASMA | Routin | 09/17/2005 | | Results for this | | | e | 4:00 AM | | procedure are in the | | | | PST | | results section. | + +--------+ + + + | SODIUM, PLASMA | Routin | 09/16/2005 | | Results for this | | | e | 11:00 PM | | procedure are in the | | | | PST | | results section. | + +--------+ + + + | SODIUM, PLASMA | Routin | 09/16/2005 | | Results for this | | | e | 5:22 PM | | procedure are in the | | | | PST | | results section. | + +--------+ + + + | SODIUM, PLASMA | Routin | 09/16/2005 | | Results for this | | | e | 10:40 AM | | procedure are in the | | | | PST | | results section. | + +--------+ + + + | SODIUM, PLASMA | Routin | 09/16/2005 | | Results for this | | | e | 7:35 AM | | procedure are in the | | | | PST | | results section. | + +--------+ + + + | SODIUM, PLASMA | Routin | 09/16/2005 | | Results for this | | | e | 4:30 AM | | procedure are in the | | | | PST | | results section. | + +--------+ + + + | SODIUM, PLASMA | Routin | 09/15/2005 | | Results for this | | | e | 9:30 PM | | procedure are in the | | | | PST | | results section. | + +--------+ + + + | INR | Urgent | 09/15/2005 | | Results for this | | | | 6:15 AM | | procedure are in the | | | | PST | | results section. | + +--------+ + + + | CBC ONLY | Urgent | 09/15/2005 | | Results for this | | | | 6:15 AM | | procedure are in the | | | | PST | | results section. | + +--------+ + + + | APTT (ACT. PART. | Urgent | 09/15/2005 | | Results for this | | THROMBO TIME) | | 6:15 AM | | procedure are in the | | | | PST | | results section. | + +--------+ + + + | TYPE AND SCREEN | Urgent | 09/15/2005 | | Results for this | | | | 6:15 AM | | procedure are in the | | | | PST | | results section. | + +--------+ + + + | SURGICAL PATHOLOGY | Routin | 09/15/2005 | | Results for this | | | e | | | procedure are in the | | | | | | results section. | + +--------+ + + + documented in this encounter Results SODIUM, PLASMA (09/17/2005 10:01 PM PST) + + + + + + | Component | Value | Ref Range | Performed | Pathologist | | | | | At | Signature | + + + + + + | SODIUM, | See cmnt | 136 - 145 | [facility] | | | PLASMA | | mmol/L | DEPARTMENT | | | (LAB) | | | OF | | | | | | PATHOLOGY | | + + + + + + + + | Specimen | + + | | + + + + + | Narrative | Performed At | + + + | Patient discharged. | [facility] | | | DEPARTMENT OF | | | PATHOLOGY | + + + + + + + + | Performing | Address | City/State/Zipcode | Phone Number | | Organization | | | | + + + + + | [facility] DEPARTMENT OF | [address] | [place] [address] | | | PATHOLOGY | [address] | | | + + + + + | [facility] DEPARTMENT | [address] | [place] [address] | | | PATHOLOGY | [address] | | | + + + + + SODIUM, PLASMA (09/17/2005 4:01 PM PST) + + + + + + | Component | Value | Ref Range | Performed | Pathologist | | | | | At | Signature | + + + + + + | SODIUM, | See cmnt | 136 - 145 | [facility] | | | PLASMA | | mmol/L | DEPARTMENT | | | (LAB) | | | OF | | | | | | PATHOLOGY | | + + + + + + + + | Specimen | + + | | + + + + + | Narrative | Performed At | + + + | Patient discharged. | [facility] | | | DEPARTMENT OF | | | PATHOLOGY | + + + + + + + + | Performing | Address | City/State/Zipcode | Phone Number | | Organization | | | | + + + + + | [facility] DEPARTMENT OF | [address] | [place] [address] | | | PATHOLOGY | [address] | | | + + + + + | [facility] DEPARTMENT OF | [address] | [place] [address] | | | PATHOLOGY | [address] | | | + + + + + SODIUM, PLASMA (09/17/2005 10:01 AM PST) + + + + + + | Component | Value | Ref Range | Performed | Pathologist | | | | | At | Signature | + + + + + + | SODIUM, | See cmnt | 136 - 145 | [facility] | | | PLASMA | | mmol/L | DEPARTMENT | | | (LAB) | | | OF | | | | | | PATHOLOGY | | + + + + + + + + | Specimen | + + | | + + + + + | Narrative | Performed At | + + + | Patient discharged. | [facility] | | | DEPARTMENT OF | | | PATHOLOGY | + + + + + + + + | Performing | Address | City/State/Zipcode | Phone Number | | Organization | | | | + + + + + | [facility] DEPARTMENT OF | [address] | [place] [address] | | | PATHOLOGY | [address] | | | + + + + + | [facility] DEPARTMENT OF | [address] | [place] [address] | | | PATHOLOGY | [address] | | | + + + + + SODIUM, PLASMA (09/17/2005 4:00 AM PST) + +-------+ + + + [...] DEPARTMENT OF | [address] | [place] [address] | | | PATHOLOGY | [address] | | | + + + + + | [facility] DEPARTMENT OF | [address] | [place] [address] | | | PATHOLOGY | [address] | | | + + + + + SODIUM, PLASMA (09/16/2005 11:00 PM PST) + +-------+ + + + [...] | + + + + + | [facility] | [address] | [place] [address] | | | PATHOLOGY | [address] | | | + + + + + | [facility] | [address] | [place] [address] | | | PATHOLOGY | [address] | | | + + + + + SODIUM, PLASMA (09/16/2005 5:22 PM PST) + +-------+ + + + | Component | Value | Ref Range | Performed | Pathologist | | | | | At | Signature | + +-------+ + + + | SODIUM, | 142 [...] DEPARTMENT OF | [address] | [place] [address] | | | PATHOLOGY | [address] | | | + + + + + | [facility] DEPARTMENT OF | [address] | [place] [address] | | | PATHOLOGY | [address] | | | + + + + + SODIUM, PLASMA (09/16/2005 10:40 AM PST) + +-------+ + + + | Component | Value | Ref Range | Performed | Pathologist | | | | | At | Signature | + +-------+ + + + | SODIUM, | 139 [...] | + + + + + | [facility] | [address] | [place] [address] | | | PATHOLOGY | [address] | | | + + + + + | [facility] | [facility] | [place] [address] | | | PATHOLOGY | [address] | | | + + + + + SODIUM, PLASMA (09/16/2005 7:35 AM PST) + +-------+ + + + [...] DEPARTMENT OF | [address] | [place] [address] | | | PATHOLOGY | [address] | | | + + + + + | [facility] DEPARTMENT OF | [address] | [place] [address] | | | PATHOLOGY | [address] | | | + + + + + SODIUM, PLASMA (09/16/2005 4:30 AM PST) + +-------+ + + + | Component | Value | Ref Range | Performed | Pathologist | | | | | At | Signature | + +-------+ + + + | SODIUM, | 143 | 136 - 145 | [facility] | [...] | + + + + + | [facility] | [address] | [place] [address] | | | PATHOLOGY | [address] | | | + + + + + | [facility] | [address] | [place] [address] | | | PATHOLOGY | [address] | | | + + + + + SODIUM, PLASMA (09/15/2005 9:30 PM PST) + +-------+ + + + | Component | Value | Ref Range | Performed | Pathologist | | | | | At | Signature | + +-------+ + + + | SODIUM, | 142 [...] | + + + + + | [facility] DEPARTMENT OF | [address] | [place] [address] | | | PATHOLOGY | [address] | | | + + + + + | [facility] DEPARTMENT OF | [address] | [place] [address] | | | PATHOLOGY | [address] | | | + + + + + TYPE AND SCREEN (09/15/2005 6:15 AM PST) + +-------+ + + + | Component | Value | Ref Range | Performed | Pathologist | | | | | At | Signature | + +-------+ + + + | ABO GROUP | A | | [facility] | | | | | | DEPARTMENT | | | | | | OF | | | | | | PATHOLOGY | | + +-------+ + + + | RH TYPE | POS | | [facility] | | | | | | DEPARTMENT | | | | | | OF | | | | | | PATHOLOGY | | + +-------+ + + + | ANTIBODY | NEG | | [facility] | | | SCREEN | | | DEPARTMENT | | | | | | OF | | | | | | PATHOLOGY | | + +-------+ + + + + + | Specimen | + + | | + + + + + | Narrative | Performed At | + + + | Instrument Testing Instrument Testing | [facility] | | | DEPARTMENT OF | | | PATHOLOGY | + + + + + + + + | Performing | Address | City/State/Zipcode | Phone Number | | Organization | | | | + + + + + | [facility] DEPARTMENT OF | [address] | [place] [address] | | | PATHOLOGY | [address] | | | + + + + + | [facility] DEPARTMENT OF | [address] | [place] [address] | | | PATHOLOGY | [address] | | | + + + + + CBC ONLY WITH PLATELET (09/15/2005 6:15 AM PST) + + + + + + | Component | Value | Ref Range | Performed | Pathologist | | | | | At | Signature | + + + + + + | WHITE CELL | 10.6 | 4.4 - 11.0 K/cu | [facility] | | | COUNT | | mm | DEPARTMENT | | | | | | OF | | | | | | PATHOLOGY | | + + + + + + | RED CELL | 4.47 (L) | 4.50 - 5.90 | [facility] | | | COUNT | | M/cu mm | DEPARTMENT | | | | | | OF | | | | | | PATHOLOGY | | + + + + + + | HEMOGLOBIN | 13.6 | 13.5 - 17.5 | [facility] | | | | | g/dL | DEPARTMENT | | | | | | OF | | | | | | PATHOLOGY | | + + + + + + | HEMATOCRIT | 40.1 (L) | 41.0 - 53.0 % | [facility] | | | | | | DEPARTMENT | | | | | | OF | | | | | | PATHOLOGY | | + + + + + + | MCV | 89.6 | 80.0 - 96.0 fL | [facility] | | | | | | DEPARTMENT | | | | | | OF | | | | | | PATHOLOGY | | + + + + + + | MCHC | 34.0 | 33.4 - 35.5 | [facility] | | | | | g/dL | DEPARTMENT | | | | | | OF | | | | | | PATHOLOGY | | + + + + + + | RDW | 13.2 | 11.5 - 15.0 % | [facility] | | | | | | DEPARTMENT | | | | | | OF | | | | | | PATHOLOGY | | + + + + + + | PLATELET | 369 | 150 - 400 K/cu | [facility] | | | COUNT | | mm | DEPARTMENT | | | | | | OF | | | | | | PATHOLOGY | | + + + + + + + + | Specimen | + + | | + + + + + + + | Performing | Address | City/State/Zipcode | Phone Number | | Organization | | | | + + + + + | [facility] DEPARTMENT OF | [address] | [place] [address] | | | PATHOLOGY | [address] | | | + + + + + | [facility] DEPARTMENT OF | [address] | [place] [address] | | | PATHOLOGY | [address] | | | + + + + + PROTHROMBIN TIME (09/15/2005 6:15 AM PST) + + + + + + | Component | Value | Ref Range | Performed | Pathologist | | | | | At | Signature | + + + + + + | INR | 0.92Comment: | 0.90 - 1.20 INR | [facility] | | | | PT INR Therapeutic | | DEPARTMENT | | | | ranges for full | | OF | | | | anticoagulation: | | PATHOLOGY | | | | INR for | | | | | | Venous Thromboembolism | | | | | | | | | | | | (2.0-3.0)INR | | | | | | INR for most | | | | | | patients with mech. | | | | | | valves (2.5-3.5)INR | | | | + + + + + + + + | Specimen | + + | | + + + + + + + | Performing | Address | City/State/Zipcode | Phone Number | | Organization | | | | + + + + + | [facility] | [address] | [place] [address] | | | PATHOLOGY | [address] | | | + + + + + | [facility] DEPARTMENT | [address] | [place] [address] | | | PATHOLOGY | [address] | | | + + + + + APTT (ACT. PART. THROMBO TIME) (09/15/2005 6:15 AM PST) + + + + + + | Component | Value | Ref Range | Performed | Pathologist | | | | | At | Signature | + + + + + + | APTT | 28.2Comment: | 26.0 - 36.0 | [facility] | | | | APTT Therapeutic Range | seconds | DEPARTMENT | | | | | | OF | | | | | | PATHOLOGY | | | | (75-120)sec | | | | | | Heparin levels | | | | | | of 0.35-0.7 U/mL | | | | + + + + + + + + | Specimen | + + | | + + + + + + + | Performing | Address | City/State/Zipcode | Phone Number | | Organization | | | | + + + + + | [facility] | [address] | [place] [address] | | | PATHOLOGY | [address] | | | + + + + + | [facility] | [address] [place] [address] | [place] [address] | | | PATHOLOGY | [address] | | | + + + + + SURGICAL PATHOLOGY (09/15/2005) + + + + + + | Component | Value | Ref Range | Performed | Pathologist | | | | | At | Signature | + + + + + + | SURGICAL | THIS IS AN AMENDED | | [facility] | | | PATHOLOGY | REPORT SOURCE OF | | DEPARTMENT | | | | SPECIMEN:A Pituitary | | 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 | | | | | | Both stains reveal the | | | | | | presence of | | | | | | significantnumbers of | | | | | | CD3 positive and CD20 | | | | | | positive lymphocytes. | | | | | | There are noatypical | | | | | | forms seen. The | | | | | | diagnosis remains | | | | | | unchanged. 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 See | | | | | | comment. Comment: The | | | | | | sections show potions of | | | | | | anterior pituitary | | | | | | gland with | | | | | | denselymphocytic | | | | | | infiltration and focal | | | | | | fibrosis as well as | | | | | | fragments of | | | | | | densefibrous tissue. | | | | | | No evidence of | | | | | | pituitary adenoma is | | | | | | identified on | | | | | | routine,reticulin or | | | | | | collagen IV stains. | | | | | | Immunoperoxidase stains | | | | | | for ACTH, HGH, | | | | | | andprolactin are | | | | | | positive. (Analyte | | | | | | specific reagents are | | | | | | used in many laboratory | | | | | | tests necessary | | | | | | [facility] | | | | | | and generally do not | | | | | | require FDA approval. | | | | | | This testwas developed | | | | | | and its performance | | | | | | characteristics | | | | | | determined by | | | | | | [facility]. It | | | | | | has not been cleared or | | | | | | approved by the U.S. | | | | | | Food andDrug | | | | | | Administration.) Case | | | | | | reviewed by:Vassil | | | | | | Johan Taylor | | | | | | /Neuropathology | | | | | | fellowRandal Reji Garcia, | | | | | | M.D. | | | | | | /NeuropathologistT:09/17 | | | | | | / Revised | | | | | | 09/22/05 I have | | | | | | reviewed all diagnostic | | | | | | slides and have edited | | | | | | the gross | | | | | | and/ormicroscopic | | | | | | portion of this report | | | | | | as part of my pathologic | | | | | | assessment andfinal | | | | | | diagnosis. Clinical | | | | | | History:The patient is a | | | | | | 25-year-old male with a | | | | | | pituitary tumor. Gross | | | | | | Description:One specimen | | | | | | is received in formalin | | | | | | labeled "pituitary | | | | | | dura." Receivedare | | | | | | four irregular fragments | | | | | | of soft to firm, | | | | | | tim-red tissue that | | | | | | measures0.5 x 0.5 x 0.2 | | | | | | cm in aggregate. The | | | | | | entire specimen is | | | | | | submitted. Cassette | | | | | | Index:A1, | | | | | | wrappedSP:TD:labRenderin | | | | | | g Diagnostician: | | | | | | Brian Garcia | | | | | | Johan,Ph.D.PathologistEle | | | | | | ctronically Signed | | | | | | 09/22/2005 | | | | + + + + + + + + | Specimen | + + | | + + + + + + + | Performing | Address | City/State/Zipcode | Phone Number | | Organization | | | | + + + + + | [facility] | [address] | [place] [address] | | | PATHOLOGY | [address] | | | + + + + + | [facility] | [address] | [place] [address] | | | PATHOLOGY | [address] | | | + + + + + documented in this encounter Visit Diagnoses Not on filedocumented in this encounter
--- OUTSIDE RECORDS SUMMARY | ~2019-07-14 | XMS | Encounter Summary ---
Demographics + + + | Address | [address] | | | [place] [address] | + + + | Home Phone [...] + + | Author | [place] [employer] [facility] | + + + | Organization | [facility] | + + + | Address | Unknown | + + + | Phone | Unavailable | + + + Support + + +---------+ + | Name | Relationship | Address | Phone | + + +---------+ + | Alexandria Dixon | ECON | Unknown | | + + +---------+ + Care Team Providers + +------+ + | Care Film Editor Supervisor Name | Role | Phone | + +------+ + | Priscilla Ramírez PA-C | PCP | | + +------+ + Encounter Details +--------+ + + + + | Date | Type | Department | Care Team | Description | +--------+ + + + + | 10/31/ | Ancillary | Registration [address]181 | Donnie, | | | 2005 | Registratio | [facility] | Cathie | | | | n | [place]oul[place] Mailcode: [id number] | DNP,GEOGRAPHIC ANALYST,[place] [address] | | | | | [place], [place] | [address] [place], | | | | | [address] | [place] [address] | | | | | [phone] | [phone] | | | | | | | [...] [place] | | | | | | [address] | | | | | | [phone] | | | | | | | | +--------+---------+ + + + documented as of this encounter Visit Diagnoses Not on filedocumented in this encounter"
--- OUTSIDE RECORDS SUMMARY | ~2019-07-14 | XMS | Encounter Summary ---
Demographics + + + | Address | [address] | | | [place] [address] | + + + | Home Phone [...] + + | Author | [place] [employer] [facility] | + + + | Organization | [facility] | + + + | Address | Unknown | + + + | Phone | Unavailable | + + + Support + + +---------+ + | Name | Relationship | Address | Phone | + + +---------+ + | Alexandria Dixon | ECON | Unknown | | + + +---------+ + Care Team Providers + +------+ + | Care Teletype Telegrapher Name | Role | Phone | + +------+ + | No Pcp Per Patient | PCP | Unavailable | + +------+ + Encounter Details +--------+------+ + + + | Date | Type | Department | Care Team | Description | +--------+------+ + + + | 06/05/ | Lab | Laboratory at [facility] | | Pituitary Adenoma | | 2008 | | [address] | | ([facility]); 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[place], [place] | | Hormone Deficiency | | | | [address] | | ([facility]); Diabetes | | | | [phone] | | 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[facility]); | | | | | | Hypogonadism Male; | | | | | | Hypothyroid; Adrenal | | | |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 (HCC) | +--------+------+ + + + Social [...] | | 2019 | Visit | | [address] | | | | | | [address] | | | | | | [place], [place] | | | | | | [address] | | | | | | [phone] | | | | | | | | +--------+---------+ + + + documented as of this encounter Procedures + +--------+ + + + | Procedure Name | Priori | Date/Time | Associated Diagnosis | Comments | | | ty | | | | + +--------+ + + + | VITAMIN D, | Routin | 06/05/2009 | Pituitary Adenoma | Results for this | | 25-HYDROXY, SERUM | e | 9:56 AM | (HCC) Growth | procedure are [...] | BASIC METABOLIC SET | Routin | 06/05/2009 | Pituitary Adenoma | Results for this | | (NA, K, CL, TCO2, | e | 9:56 AM | (HCC) Growth | procedure are [...] + | INSULIN GROWTH | Routin | 06/05/2009 | Pituitary Adenoma | Results for this | | FACTOR-1, SERUM | e | 9:56 AM | (HCC) Growth | procedure are [...] + | TESTOSTERONE, SERUM | Routin | 06/05/2009 | Pituitary Adenoma | Results for this | | | e | 9:56 AM | (HCC) Growth | procedure are [...] this encounter Results INSULIN GROWTH FACTOR-1, SERUM (06/05/2009 9:56 AM [...] At | + + + | [facility] ([facility]) Reggie | [address] | | [place] [address] [address] [facility] [facility] | DEPARTMENT OF | | [place] [address] | PATHOLOGY | + + + + + + + + | Performing | Address | City/State/Zipcode | Phone Number | | Organization | | | | + + + + + | [facility] | [address] | [place] [address] | | | PATHOLOGY | [address] [...] | | | DEPARTMENT | | | [place] | | | OF | | | [...] | + + + + + | [facility] | [address] | [place] [address] | | | PATHOLOGY | [address] [...] At | + + + | [facility] ([facility]) [address] | [facility] | | [place] [address] [facility] | DEPARTMENT OF | | [place] [address] | PATHOLOGY | + + + + + + + + | Performing | Address | City/State/Zipcode | Phone Number | | Organization | | | | + + + + + | [facility] DEPARTMENT | [address] | [place] [address] | | | PATHOLOGY | [address] [...] | | | | | | Laboratories,[address] | | | | | | [place] [address] | | | | | | [email or web address]. | | | | | | Therese torres, | | | | | | , Lab. Director | | | | + + + + + + + + | Specimen | + + | Blood - Blood | + + + + + + + | Performing | Address | City/State/Zipcode | Phone Number | | Organization | | | | + + + + + | [facility] | [address] | [place] [address] | | | PATHOLOGY | [address] [...]
--- OUTSIDE RECORDS SUMMARY | ~2019-07-14 | XMS | Encounter Summary ---
Demographics + + + | Address | [address] | | | [place] [address] | + + + | Home Phone | | + + + | Preferred Language | Unknown | + + + | Marital Status | Single | + + + | Tenriism Affiliation | NON | + + + | Race | or | + + + | Ethnic Group | Not or | + + + Author + + + | Author | [place] [facility] | + + + | Organization | [facility] | + [...] Team Providers + +------+ + | Care Bench Assembly Inspector Name | Role | Phone | + +------+ + | Jinny Bergeron MD | PCP | | + +------+ + Encounter Details +--------+------+ + + + | Date | Type | Department | Care Team | Description | +--------+------+ + + + | 11/14/ | Lab | Laboratory at [facility] | | Pituitary adenoma | | 2015 | | [address] | | ([facility]); 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[place], [place]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 | | | | [address] | | ([facility]); 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[facility]); | | | | | | Hypogonadism male; | | | | | | Hypothyroid | +--------+------+ + + + Social History [...] | | 2019 | Visit | | [address] | | | | | | [address] | | | | | | [place], [place] | | | | | | [address] | | | | | | [phone] | | | | | | | | +--------+---------+ + + + documented as of this encounter Procedures + +--------+ + + + | Procedure Name | Priori | Date/Time | Associated Diagnosis | Comments | | | ty | | | | + +--------+ + + + | VITAMIN D, | Routin | 11/14/2014 | Pituitary adenoma | Results for this | | 25-HYDROXY, SERUM | e | 2:34 PM | (HCC) Growth | procedure are in the | | | | PDT | hormone deficiency | results section. 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) | | | | | | Hypogonadism male | | | | | | Hypothyroid | | + +--------+ + + + [...] + + + + + | [facility] | [address] | [place] [address] | | | SERVICES, SPECIAL | KIMO [...] | + + + + + | [facility] | [address] | [place] [address] | | | VITALY RANKIN | KIMO [...] + | [facility] [facility] | [address] | [place] [address] | | | [place] | | | [...] + | [facility] | [address] | [place] [address] | | | [place] | | | [...] + | [facility] | [address] | [place] [address] | | | [place] | | | [...] [facility] | [address] | [place] [address] | | | SERVICES, CORE | PARK [...] | | | LABORATORY | | | ARMENIAN | | | SERVICES, | | | [...] | + + + + + | [facility] | [address] | [place] [address] | | | SERVICES, VITALY | KIMO [...]
--- OUTSIDE RECORDS SUMMARY | ~2019-07-14 | XMS | Encounter Summary ---
Demographics + + + | Address | [address] | | | [place] [address] | + + + | Home Phone [...] + + + | Author | [place] [facility] | + + + | Organization | [facility] | + + + | Address | Unknown | + + + | Phone | Unavailable | + + + Support + + +---------+ + | Name | Relationship | Address | Phone | + + +---------+ + | Alexandria Dixon | ECON | Unknown | | + + +---------+ + Care Team Providers + +------+ + | Care Per Diem Registered Nurse Name | Role | Phone | + [...] Description | +--------+--------+ + + + | 12/29/ | Refill | Neurosurgery at | [place], | Refill Request | | 2007 | | [facility] [address] | [place], | | | | | [place] Mailcode: [id number] | DNP,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
--- OUTSIDE RECORDS SUMMARY | ~2019-07-14 | XMS | Encounter Summary ---
Demographics + + + | Address | [address] | | | [place] [address] | + + + | Home Phone | | + + + | Preferred Language | Unknown | + + + | Marital Status | Single | + + + | Sikhism Affiliation | Unknown | + + + | Race | Unknown | + + + | Ethnic Group | Unknown | + + + Author + + + | Author | [facility] | | | and [place] | + + + | Organization | [facility] | | | and [...] Team Providers + +------+ + | Care Telex Operator Name | Role | Phone | + +------+ + | Priscilla Ramírez PA-C | PCP | | + +------+ + Encounter Details +--------+ + + + + | Date | Type | Department | Care Team | Description | +--------+ + + + + | 02/09/ | Orders Only | [facility] | Conversion | | | 2015 | | CARDIOLOGY [facility] | Transaction, | | | | | [address] | Provider Unknown | | | | | [place], [place] | [phone] | | | | | [address] | | | | | | [phone] | | | +--------+ + + + [...] 2020 | Visit | | [address] | | | | | | [place] | | | | | | [address] | | | | | | | | +--------+---------+ + + + documented as of this encounter Procedures + +--------+ + + + | Procedure Name | Priori | Date/Time | Associated Diagnosis | Comments | | | ty | | | | + +--------+ + + + | LIPID PANEL | Routin | 09/18/2014 | | Results for this | | | e | 10:03 AM | | procedure are in the | | | | PST | | results section. | + +--------+ + + + | TSH | Routin | 09/18/2014 | | Results for this | | | e | 10:03 AM | | procedure are in the | | | | PST | | results section. | + +--------+ + + + | T4, FREE | Routin | 09/18/2014 | | Results for this | | | e | 10:03 AM | | procedure are in the | | | | PST | | results section. | + +--------+ + + + | CHOLESTEROL, LDL | Routin | 09/18/2014 | | | | | e | 10:03 AM | | | | | | PST | | | + +--------+ + + + | COMPREHENSIVE | Routin | 09/18/2014 | | Results for this | | METABOLIC PANEL | e | 10:03 AM | | procedure are in the | | | | PST | | results section. | + +--------+ + + + documented in this encounter Results TSH (09/18/2014 10:03 AM PST) + +-------+ + + + | Component | Value | Ref Range | Performed | Pathologist | | | | | At | Signature | + +-------+ + + + | TSH | 0.878 | 0.270 - 4.20 | EXTERNAL | | | | | uIU/mL | LAB | | + +-------+ + + + + + | Specimen | + + | Blood specimen | | (specimen) | + + + +---------+ + + | Performing | Address | City/State/Zipcode | Phone Number | | Organization | | | | + +---------+ + + | EXTERNAL LAB | | | | + +---------+ + + T4, Free (09/18/2014 10:03 AM PST) + +-------+ + + + | Component | Value | Ref Range | Performed | Pathologist | | | | | At | Signature | + +-------+ + + + | FREE T4 | 1.56 | 0.71 - 1.7 | EXTERNAL | | | (REF) | | | LAB | | + +-------+ + + + + + | Specimen | + + | Blood specimen | | (specimen) | + + + +---------+ + + | Performing | Address | City/State/Zipcode | Phone Number | | Organization | | | | + +---------+ + + | EXTERNAL LAB | | | | + +---------+ + + Cholesterol, LDL (09/18/2014 10:03 AM PST) + + | Specimen | + + | Blood specimen | | (specimen) | + + + +---------+ + + | Performing | Address | City/State/Zipcode | Phone Number | | Organization | | | | + +---------+ + + | EXTERNAL LAB | | | | + +---------+ + + Lipid Panel (09/18/2014 10:03 AM PST) + + + + + + | Component | Value | Ref Range | Performed | Pathologist | | | | | At | Signature | + + + + + + | Cholesterol | 191 | 200 mg/dL | EXTERNAL | | | | | | LAB | | + + + + + + | Triglycerid | 301 (A) | 150 mg/dL | EXTERNAL | | | es | | | LAB | | + + + + + + | HDL | 38.8 (A) | 40 mg/dl | EXTERNAL | | | | | | LAB | | + + + + + + | LDL | 92 | 100 mg/dL | EXTERNAL | | | Cholesterol | | | LAB | | | , | | | | | | Calculated, | | | | | | External | | | | | + + + + + + | LDl/HDL | | | EXTERNAL | | | Ratio | | | LAB | | + + + + + + | Chol/HDL | 4.9 | 4.97 | EXTERNAL | | | Ratio | | | LAB | | + + + + + + | VLDL | 60 (A) | 4 - 40 mg/dL | EXTERNAL | | | | | | LAB | | + + + + + + | Non HDL | 152 (A) | 130 | EXTERNAL | | | Chol. | | | LAB | | | (LDL+VLDL) | | | | | + + + + + + + + | Specimen | + + | Blood specimen | | (specimen) | + + + +---------+ + + | Performing | Address | City/State/Zipcode | Phone Number | | Organization | | | | + +---------+ + + | EXTERNAL LAB | | | | + +---------+ + + Comprehensive Metabolic Panel (09/18/2014 10:03 AM PST) + +---------+ + + + | Component | Value | Ref Range | Performed | Pathologist | | | | | At | Signature | + +---------+ + + + | Glucose, | 130 (A) | 70 - 100 mg/dL | EXTERNAL | | | Fasting | | | LAB | | + +---------+ + + + | BUN | 16 | 6 - 23 mg/dL | EXTERNAL | | | | | | LAB | | + +---------+ + + + | Creatinine | 0.80 | 0.60 - 1.35 | EXTERNAL | | | | | mg/dL | LAB | | + +---------+ + + + | BUN/Creatin | 20.0 | 6.0 - 28.6 | EXTERNAL | | | ine Ratio | | | LAB | | + +---------+ + + + | Calcium | 9.2 | 8.4 - 10.2 | EXTERNAL | | | | | mg/dL | LAB | | + +---------+ + + + | Protein, | 7.0 | 6.0 - 8.0 g/dL | EXTERNAL | | | Total | | | LAB | | + +---------+ + + + | Albumin | 4.1 | 3.5 - 5.0 | EXTERNAL | | | | | | LAB | | + +---------+ + + + | Globulin | 2.9 | 1.8 - 3.5 | EXTERNAL | | | | | | LAB | | + +---------+ + + + | A/G Ratio | 1.4 | 1.1 - 2.4 | EXTERNAL | | | | | | LAB | | + +---------+ + + + | Bilirubin | 0.7 | 0.0 - 1.2 mg/dL | EXTERNAL | | | Total | | | LAB | | + +---------+ + + + | ALP, | 53 | 30 - 128 | EXTERNAL | | | External | | | LAB | | + +---------+ + + + | ALT | 22 | 7 - 52 U/L | EXTERNAL | | | | | | LAB | | + +---------+ + + + | AST | 13 | 13 - 39 U/L | EXTERNAL | | | | | | LAB | | + +---------+ + + + | Na | 137 | 132 - 143 | EXTERNAL | | | | | mmol/L | LAB | | + +---------+ + + + | K | 4.2 | 3.6 - 5.1 | EXTERNAL | | | | | mmol/L | LAB | | + +---------+ + + + | Cl | 102 | 95 - 112 mmol/L | EXTERNAL | | | | | | LAB | | + +---------+ + + + | CO2 | 23 | 19 - 31 mmol/L | EXTERNAL | | | | | | LAB | | + +---------+ + + + | Anion Gap | 16.2 | 7 - 21 mmol/L | EXTERNAL | | | | | | LAB | | + +---------+ + + + | Estimated | 110 | 60 mg/dL | EXTERNAL | | | GFR | | | LAB | | + +---------+ + + + [...]
--- OUTSIDE RECORDS SUMMARY | ~2019-07-14 | XMS | Encounter Summary ---
Demographics + + + | Address | [address] | | | [place] [address] | + + + | Home Phone [...] + + + | Author | [place] [facility] | + + + | Organization | [facility] | [...] Team Providers + +------+ + | Care Mink Rancher Name | Role | Phone | + [...] 07/27/ | Refill | Neurosurgery at | [facility], | Refill Request | | 2018 | | [facility] [address] | [place], | | | | | [place] Mailcode: [id number] | DNP,LINE INSTALLATION SUPERVISOR,[place] [address] | | | | | [facility] | [address] [place], | | | | | and Healing, | [place] [address] | | | | | [address] | [phone] | | | | | [place], [place] | | | | | | [address] | | | | | | [phone] | | | +--------+--------+ + + + [...] Rd | | | | | | [place], [place] | | | | | | [address] | | | | | | [phone] | | | | | | | [...]
--- OUTSIDE RECORDS SUMMARY | ~2019-07-14 | XMS | Encounter Summary ---
Demographics + + + | Address | [address] | | | [place] [address] | + + + | Home Phone [...] + + + | Author | [place] [facility] | + + + | Organization | [facility] | + + + | Address | Unknown | + + + | Phone | Unavailable | + + + Support + + +---------+ + | Name | Relationship | Address | Phone | + + +---------+ + | Alexandria Dixon | ECON | Unknown | | + + +---------+ + Care Team Providers + +------+ + | Care Sales Administration Manager Name | Role | Phone | + +------+ + | Jinny Bergeron MD | PCP | | + +------+ + Reason for Visit + + + | Reason | Comments | + + + | New patient | | | consultation | | + + + Consultation (Routine) [...] | | | | | leaflet | DNP,SOCCER REFEREE,[place] | MD [address] | | | | | abnormality | [address] | Yrn Pantoja | | | | | Procedures | Ave | [place] | | | | | CONSULT TO | [place], [place] | [place], [place] | | | | | SURGERY - | [address] | [address] | | | | | CARDIOTHORAC | Phone: | Phone: | | | | | IC | [phone] | [phone] | | | | | | Fax: | Fax: | | | | | | [phone] | [phone] | + +--------+ + + + + Encounter Details +--------+---------+ + + + | Date | Type | Department | Care Team | Description | +--------+---------+ + + + | 06/19/ | Office | Cardiothoracic | Luis M Aguilarderick | Papillary | | 2016 | Visit | Surgery at [facility] [address] | MD Michell [address] | fibroelastoma of | | | | [address] [facility] | [address] | heart (Primary Dx); | | | | Rd Mailcode: [address] | [place], [place] | CAD in mcgrath artery | | | | Physician's | [address] | | | | | Cristiana [place], | [phone] | | | | | [place] [address] | | | | | | [phone] | | | +--------+---------+ + + + [...] + + + | Blood Pressure | 125/79 | 06/19/2016 1:06 PM | | | | | PST | | + + + + + | Pulse | 83 | 06/19/2016 1:06 PM | | | | | PST | | + + + + + | Temperature | 36.7 C (98 F) | 06/19/2016 1:06 PM | | | | | PST | | + + + + + | Respiratory Rate | - | - | | + + + + + | Oxygen Saturation | 95% | 06/19/2016 1:06 PM | | | | | PST | | + + + + + | Inhaled Oxygen | - | - | | | Concentration | | | | + + + + + | Weight | 122 kg (269 lb) | 06/19/2016 1:06 PM | | | | | PST | | + + + + + | Height | 172.7 cm (5' 8") | 06/19/2016 1:06 PM | | | | | PST | | + + + + + | Body Mass Index | 40.9 | 06/19/2016 1:06 PM | | | | | PST | | + + + + + documented in this encounter Progress Notes Evelin Puri PA - 06/19/2016 1:55 PM PSTFormatting of this note might be different f rom the original. 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 Amairani Ulloa is a 36 year old male c h/o pituitary adenoma s/p resection on predniso ne, thoracic spinal cyst and chronic upper back/neck pain, AR age 31 s/p stent to L Cx on ef fient and INSULATION MECHANIC of RCA, Type II DM on metformin, MALLIKA c CPAP, HTN, dyslipidemia, and obesity Jorge dy mass index is 40.91 kg/(m^2). 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 Mr. Tyler feels fatigued all the time. He has had to stop working as it is just too tires ome. He has stopped doing things that he enjoys such as housework and riding his motorcycle over the past few months due to his Sx. Mr. Tyler is having mid chest pressure - reminisc ent of the CP he had with his AR but "not as sharp". He experiences this feeling every coup le days - it is non radiating and lasts a couple of hours. He is usually resting when it co mes on. Nothing makes it better or worse. He is able to walk 5 or 6 flights of stairs with out stopping. He does have some mild ankle swelling off and on of late as well as flutterin g in his chest every so often. Mr. Tyler denies DURAN, orthopnea/PND (uses CPAP). Allergies: The patient is allergic to bactrim. Medications: Current Medication List Name Sig AMLODIPINE 5 MG TABLET Take 1 tablet by mouth once daily at bedtime. ATORVASTATIN 20 MG TABLET Take 20 mg by mouth once daily. CHOLECALCIFEROL (VITAMIN D3) 1,000 UNIT CAPSULE Take 6,000 Units by mouth daily. DEPO-TESTOSTERONE 200 MG/ML INTRAMUSCULAR OIL DESMOPRESSIN 0.2 MG TABLET Take 1 1/2 tablets in the morning and 2 tablets in the evening. HYDROCODONE 10 MG-ACETAMINOPHEN 325 MG TABLET Take by mouth. HYDROCORTISONE 20 MG TABLET Take 1 tablet by mouth two times daily. HYDROCORTISONE 5 MG TABLET Take 5 tablets by mouth once daily. HYDROCORTISONE SOD SUCCINATE (PF) 100 MG/2 ML SOLUTION FOR INJECTION Inject 1ml for symptom s of adrenal crisis. Low blood pressure, vomiting, high heart rate. LEVOTHYROXINE 125 MCG TABLET Take 1 tablet by mouth before breakfast. LISINOPRIL 5 MG TABLET Take 5 mg by mouth once daily. METFORMIN 500 MG TABLET 2 tabs at breakfast and one tab at dinner dialy METOPROLOL TARTRATE 12.5 MG ORAL DOSE Take by mouth two times daily. PHENTERMINE 37.5 MG TABLET Take 37.5 mg by mouth once daily in the morning. Administer befo re breakfast. PRASUGREL 10 MG TABLET Take 10 mg by mouth once daily. PRAVASTATIN 20 MG TABLET Take by mouth. PROMETHAZINE 25 MG TABLET Take 1 tablet by mouth four times daily as needed for nausea/vomi ting. SOMATROPIN 10 MG/2 ML (5 MG/ML) SUBCUTANEOUS CARTRIDGE Inject 0.8 mg under the skin (SUBC) once daily. 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 Pituitary adenoma (HCC) Hypogonadism Myocardial infarction (HCC) 2010 Complications affecting other specified body systems, hypertension Other and unspecified angina pectoris (HCC) Other unspecified back disorder Arthropathy, unspecified, site unspecified Closed fracture of unspecified bone Headache(784.0) Past Surgical History: Left medial rectus recession of 3.0 mm with one-third tendon width infraplacement 2004 Transsphenoidal resection of pituitary adenoma 09/15/2005 hx Eye surgery 2004 Family History: Family History Problem Relation Adopted: Yes Diabetes Mother Heart Disease Father Hypertension Mother Heart Disease Mother Hypertension Sister Arthritis Mother Social History: Tobacco: chew. No smoking ETOH: denies Illicit drug use: denies has 4 children ages 13, 5, 3, 2. 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 Risk Factors: Hypertensive Heart Disease: Yes Dyslipidemia: Yes Family History of Premature CAD: unknown Prior Cardiac Events:AR Heart Failure Type & NYHA Class: No Heart Failure Stage: n/a Cardiomyopathy: None Pulmonary Hypertension: No Arrhythmia/Heart Block:none Prior Valve Surgery/Procedure: No Prior PCI: Yes Prior CABG: No Renal Impairment: None Cerebrovascular Disease: None Peripheral Arterial Disease: No Chronic Lung Disease: None GI/Liver: None Hematology: None Diabetes Mellitus: yes, controlled with oral Diabetes Mellitus with Secondary: Neuropathy Infectious Endocarditis:No Immunosuppression: Medication related - on prednisone Review of Systems: Constitutional: fatigue Eyes:negative for symptoms ENT: negative for symptoms Respiratory: negative for symptoms Cardiovascular: See HPI Gastrointestinal: negative for symptoms Genitourinary: negative. Neurological: See HPI Integumentary: negative for symptoms Endocrine: negative for symptoms Musculoskeletal: upper back pain Physical Exam: Vital Signs: BP 125/79 | Pulse 83 | Temp (Src) 36.7 C (98 F) (Oral) | Ht 1.727 m (5' 8" ) | Wt 122.018 kg (269 lb) | SpO2 95% | BMI 40.91 kg/(m^2) Constitutional: young adult male comfortable appearing. HEENT: PERRLA, hearing intact Respiratory: CTAB no wheezes/rhoonchi/rales Cardiovascular: RRR no mrg. No extremity edema. 2+ radial and pedal pulses bilat. Gastrointestinal: obese, NTND< +BS. Musculoskeletal: BAILEY Neurologic: A&Ox3 Skin: tim, warm, dry Studies/DATA: TTE 05/2016: 1. Sinus rhythm. 2. Cardiac chamber dimensions NML. LV systolic and diastolic functions NML, LVEF 60-65%. 3. Small, non-mobile mass (7* 8mm), at the base of the posterior Mitral leaflet, on LV side , no MR. This may be nodularity of the Mitral annulus or a pappillary fibroelastoma. Aortic and Tricuspid valves grossly NML, Pulmonic valve not seen well. No /AI. Trace TR. 4. No Pericardial effusion. 5. IVC NML, inadequate TR to estimate PAP. Coronary angiogram 11/2015: INSULATION MECHANIC RCA Patent L Cx stent Assessment: Mr. Tyler is a 36 year old male who presents with mobile mass on mitral valve - likely pap illary fibroelastoma, h/o AR age 31 c stent to L Cx and INSULATION MECHANIC of RCA, fatigue, and chest pain. We discussed the potential risks and benefits of Coronary Artery Bypass and Mitral Valve Re placement in detail. Mr. Tyler would like to proceed with this. After some discussion reg arding the risks and benefits of mechanical vs biologic valve prostheses, Mr. Tyler would l prakash to have a mechanical valve implanted with the understanding that this would require long -term coumadin anticoagulation. Plan: Due to 's ongoing chest pain, we would like to repeat his coronary angiogram prior to surgery - this can be done either in [place] or here at [facility] per his preference. We have him scheduled for resection of mitral valve mass +/- MVR and CABG x 1+ (SVG to RCA, possibly more) on Jul 08 with [facility] visit on Jul 07. If he wants angiogram at [facility] er than OSH, we will schedule that for Jul 07. PARQ and consent completed c Blaise Aguilar MD. BRETT Beckford CARDIOTHORACIC SURGERY AT [facility] [address] [facility] Mailcode: [address] [place] [address] Koffi Goins MD - 06/19/2016 1:30 PM PSTI personally interviewed the patient, performed the pertinent parts of the physical examination and personally formulated the plan with the resident. I agree with the resident's documentation and have documented any additions or exceptions. Mr Tyler is a very pleasant gentleman with a complex medical history. He had resections of a pituitary adenoma. He is on hormone replacement therapy including hydrocortisone. He had a stent placed in his mid LCx five years ago. He is on prasugrel since then. He has a INSULATION MECHANIC of his RCA. He recently has developed chest discomfort reminiscent of his ischemic pain. He no evie palpitations and some mild pedal edema. Importantly, he had an echo in May. A mass was seen on the LV side of the base of his p osterior mitral leaflet, about 8 mm. The differential includes neoplasm, thrombus, or vegeta tion. Thrombus is less likely in the setting of his anticoagulation. The appearance is most consistent with papillary fibroelastoma. In any case, he is at risk for stroke, which is etta y concerning to him. Due to the risk of embolization, we recommend resection of these types of masses. It is possible that some of his chest discomfort may be attributed to embolizatio n from the mass. I spoke to Dr Shelton about repeating an angiogram to evaluate his coronaries as well, since he is symptomatic. I discussed with Mr Tyler and about the differentia l diagnosis, the indications, risks, benefits, and alternatives to resection of intracardiac mass, possible mitral valve replacement, and CABG. Full PARQ discussion held. All their que stions were answered. They understand and wish to proceed. In the event that he needs a mitr al valve, after considering the options, he would like a mechanical valve. He should stop hi s effient (Prasugrel) one week prior to operation). He will need stress dose steroids. I spe nt 80 minutes in the care of this patient, greater than 50% of which was CCC. Koffi Aguilar MD documented in th is encounter Plan of Treatment +--------+---------+ + + + | Date | Type | Specialty | Care Team | Description | +--------+---------+ + + + | 08/15/ | Office | Cardiology | Zuleika Hernandez, | | | 2019 | Visit | | [address] | | | | | | [address] | | | | | | [place], [place] | | | | | | [address] | | | | | | [phone] | | | | | | | | +--------+---------+ + + + documented as of this encounter Procedures + +--------+ + + + | Procedure Name | Priori | Date/Time | Associated Diagnosis | Comments | | | ty | | | | + +--------+ + + + | OUTSIDE CARDIOLOGY | | 06/19/2016 | | Results for this | | | | 12:00 AM | | procedure are in the | | | | PST | | results section. | + +--------+ + + + | RADIOLOGY | | 06/06/2016 | | Results for this | | | | 12:00 AM | | procedure are in the | | | | PDT | | results section. | + +--------+ + + + | RADIOLOGY | | 06/06/2016 | | Results for this | | | | 12:00 AM | | procedure are in the | | | | PDT | | results section. 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
--- OUTSIDE RECORDS SUMMARY | ~2019-07-14 | XMS | Encounter Summary ---
Demographics + + + | Address | [address] | | | [place] [address] | + + + | Home Phone | | + + + | Preferred Language | Unknown | + + + | Marital Status | Single | + + + | Mu-Ism Affiliation | Unknown | + + + | Race | Unknown | + + + | Ethnic Group | Unknown | + + + Author + + + | Author | [facility] | | | and [place] | + + + | Organization | [facility] | | | and [...] Team Providers + +------+ + | Care Sports Physical Therapist Name | Role | Phone | + [...] | | | | | | [place] REPAIR OF | | | | | | | NASAL | | | | | | | SEPTUM [place] | | | | | | [...] + + | 04/08/ | Hospital | [facility] | Mckay De Leon MD | Deviated nasal | | 2015 | Encounter | MED CTR OR INTRA OP | [address] [place] | septum (Primary Dx); | | | | [address] | [address], | Hypertrophy of | | | | [place], [place] | [place] [address] | nasal turbinates | | | | [address] | [phone] | | | | | [phone] | | | +--------+ + + + [...] nose can help reduce and remove crusts. [id number] [employer]. [address] [place] [address]. All righ ts reserved. This information is [...] the amount of crusting at each visit. [id number] [employer]. [address] [place] [address], [place] [address]. All righ ts reserved. This information is [...] [place] | | | | | | [address] | | | | | | | [...] [address] | [place] | [phone] | | [facility] | | [address] | | | - LABORATORY | | [...] | | | | | | use [place] 10/ if ordered. If | | | [...]
--- OUTSIDE RECORDS SUMMARY | ~2019-07-14 | XMS | Encounter Summary ---
Demographics + + + | Address | [address] [address] | | | [place] [address] | + + + | Home Phone | | + + + | Preferred Language | Unknown | + + + | Marital Status | Single | + + + | Mu-Ism Affiliation | NON | + + + | Race | or | + + + | Ethnic Group | Not or | + + + Author + + + | Author | [place] [facility] | + + + | Organization | [facility] | + + + | Address | Unknown | + + + | Phone | Unavailable | + + + Support + + +---------+ + | Name | Relationship | Address | Phone | + + +---------+ + | Alexandria Dixon | ECON | Unknown | | + + +---------+ + Care Team Providers + +------+ + | Care Sourcing Assistant Name | Role | Phone | + +------+ + | No Pcp Per Patient | PCP | Unavailable | + +------+ + Encounter Details +--------+------+ + + + | Date | Type | Department | Care Team | Description | +--------+------+ + + + | 10/25/ | Lab | Laboratory at [facility] | | Pituitary adenoma | | 2010 | | [address] | | ([facility]); 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[place], [place]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 | | | | [address] | | ([facility]); Diabetes | | | | [phone] | | insipidus ([facility]); | | | | | [...] | | 2019 | Visit | | [address] | | | | | | [address] | | | | | | [place], [place] | | | | | | [address] | | | | | | [phone] | | | | | | | | +--------+---------+ + + + documented as of this encounter Procedures + +--------+ + + + | Procedure Name | Priori | Date/Time | Associated Diagnosis | Comments | | | ty | | | | + +--------+ + + + | ACTH, PLASMA | Routin | 10/25/2010 | Pituitary adenoma | Results for this | | | e | 12:57 PM | (HCC) Growth | procedure are [...] | BASIC METABOLIC SET | Routin | 10/25/2010 | Pituitary adenoma | Results for this | | (NA, K, CL, TCO2, | e | 12:57 PM | (HCC) Growth | procedure are [...] + | INSULIN GROWTH | Routin | 10/25/2010 | Pituitary adenoma | Results for this | | FACTOR-1, SERUM | e | 12:57 PM | (HCC) Growth | procedure are [...] + | FREE T4 | Routin | 10/25/2010 | Pituitary adenoma | Results for this | | | e | 12:57 PM | (HCC) Growth | procedure are [...] + + | PROLACTIN | Routin | 10/25/2010 | Pituitary adenoma | Results for this | | | e | 12:57 PM | (HCC) Growth | procedure are [...] + | TESTOSTERONE, SERUM | Routin | 10/25/2010 | Pituitary adenoma | Results for this | | | e | 12:57 PM | (HCC) Growth | procedure are [...] | + +--------+ + + + | HEMOGLOBIN A1C, | Routin | 10/25/2010 | Growth hormone | Results for this | | BLOOD | e | 12:57 PM | deficiency (HCC) | procedure are in the | | | | PDT | Adrenal | results section. | | | | | insufficiency (HCC) | | + +--------+ + + + documented in this encounter Results HEMOGLOBIN A1C, BLOOD (10/25/2010 [...] [facility] ([facility]) | | | [place] [address] | | | [place] [address] | | + + + + + + + + | Performing | Address | City/State/Zipcode | Phone Number | | Organization | | | | + + + + + | [facility] | [address] | [place] [address] | | | LABORATORY | | | [...] | | | DEPARTMENT | | | [place] | | | OF | | | [...] | + + + + + | [facility] | [address] | [place] [address] | | | PATHOLOGY | [address] [...] [place] | [place] | | [place] [address] | REGIONAL | | [place] [address] | LABORATORY | + + + + + + + + | Performing | Address | City/State/Zipcode | Phone Number | | Organization | | | | + + + + + | [facility] | [address] | [place] [address] | | | LABORATORY | | | [...] + + + | [facility] ([address] [facility]) [place] | [place] | | [place] [address] [facility] [address] | REGIONAL | | [place] [address] | LABORATORY | + + + + + + + + | Performing | Address | City/State/Zipcode | Phone Number | | Organization | | | | + + + + + | [facility] | [address] | [place] [address] | | | LABORATORY | | | [...] At | + + + | [facility] ([address] [facility]) [place] | [place] | | [place] [address] [address] [facility] | | [place] [address] | LABORATORY | + + + + + + + + | Performing | Address | City/State/Zipcode | Phone Number | | Organization | | | | + + + + + | [facility] | [address] | [place] [address] | | | LABORATORY | | | [...] + + + | [facility] ([address] [facility]) [place] | [place] | | [place] [address] | REGIONAL | | [place] [address] | LABORATORY | + + + + + + + + | Performing | Address | City/State/Zipcode | Phone Number | | Organization | | | | + + + + + | [facility] | [address] | [place] [address] | | | LABORATORY | | | [...] At | + + + | [facility] ([facility]) | [place] | | [place] [facility] [place] [address] [address] | REGIONAL | | [place] [address] | LABORATORY | + + + + + + + + | Performing | Address | City/State/Zipcode | Phone Number | | Organization | | | | + + + + + | [facility] | [address] | [place] [address] | | | LABORATORY | | | [...]
--- OUTSIDE RECORDS SUMMARY | ~2019-07-14 | XMS | Encounter Summary ---
Demographics + + + | Address | [address] | | | [place] [address] | + + + | Home Phone | | + + + | Preferred Language | Unknown | + + + | Marital Status | Single | + + + | Temple Affiliation | NON | + + + | Race | or | + + + | Ethnic Group | Not or | + + + Author + + + | Author | [place] [employer] [facility] | + + + | Organization | [facility] | + + + | Address | Unknown | + + + | Phone | Unavailable | + + + Support + + +---------+ + | Name | Relationship | Address | Phone | + + +---------+ + | Alexandria Dixon | ECON | Unknown | | + + +---------+ + Care Team Providers + +------+ + | Care Teletypesetter Name | Role | Phone | + [...] n | Abdoulaye Mailcode: [id number] | [place], [place] | | | | | [place], [place] | [address] | | | | | [address] | | | | | | [phone] | | | +--------+ + + + [...] | | 2019 | Visit | | [address] | | | | | | [place] | | | | | | [place], [place] | | | | | | [address] | | | | | | [phone] | | | | | | | [...] | ug/dl | | | | | [facility] | | | | | | [...] + + + | [facility] | [address] | [place] [address] | | | LABORATORY | | | [...] + + + + + | [facility] | [address] | [place] [address] | | | LABORATORY | | | [...] | | E, SERUM | performed by [facility] | | | | | | [facility] | | | | + + + + + + + + | Specimen | + + | | + + + + + + + | Performing | Address | City/State/Zipcode | Phone Number | | Organization | | | | + + + + + | [facility] | [address] | [place] [address] | | | LABORATORY | | | [...] | | | | | | Floridalma Lambert | | | | | | [...] + + + | [facility] | [address] | [place] [address] | | | LABORATORY | | | [...] | | | | | performed by [facility] | | | | | | [facility] | | | | | | [facility]. New | | | | | | performing laboratory | | | | | | and reference range | | | | | | [id number]/21/05. | | | | + + + [...] + + + | [facility] | [address] | [place] [address] | | | LABORATORY | | | [...] | ug/dl | | | | | [facility] | | | | | | [...] + + + + + | [facility] | [address] | [place] [address] | | | LABORATORY | | | [...] by | | | | | | [facility] | | | | | | [facility]. | | | | + + + + + + + + | Specimen | + + | | + + + + + + + | Performing | Address | City/State/Zipcode | Phone Number | | Organization | | | | + + + + + | [facility] | [address] | [place] [address] | | | LABORATORY | | | [...] | | | SERUM | performed by [facility] | | | | | | [facility] | | | | | | Laboratories. | | | | + + + + + + + + | Specimen | + + | | + + + + + + + | Performing | Address | City/State/Zipcode | Phone Number | | Organization | | | | + + + + + | [facility] | [address] | [place] [address] | | | LABORATORY | | | [...] <19 | | | | | | Post-Macclenny. 16-64 | | | | | | Test performed by | | | | | | [facility] | | | | | | Regional [facility]. | | | | + + + + + + + + | Specimen | + + | | + + + + + + + | Performing | Address | City/State/Zipcode | Phone Number | | Organization | | | | + + + + + | [facility] | [address] | [place] [address] | | | LABORATORY | | | [...] Reggie | | | | | | [facility] | | | | | | Labaoratory. | | | | + + + + + + + + | Specimen | + + | | + + + + + + + | Performing | Address | City/State/Zipcode | Phone Number | | Organization | | | | + + + + + | [facility] | [address] | [place] [address] | | | LABORATORY | | | [...] uIU/julio césar | | | | | [facility] | | | | | | Laboratories. | | | | + + + + + + + + | Specimen | + + | | + + + + + + + | Performing | Address | City/State/Zipcode | Phone Number | | Organization | | | | + + + + + | [facility] | [address] | [place] [address] | | | LABORATORY | | | [...] Performed At | + + + | [address] Estimated GFR > 60 mL/min/1.73 sq m if non- | [facility] | | [address] Estimated GFR > 60 mL/min/1.73 sq m [...] + + + + + | [facility] | [address] | [place] [address] | | | PATHOLOGY | [address] | | | + + + + + | [facility] | [address] | [place] [address] | | | PATHOLOGY | [address] | | | + + + + + documented in this encounter Visit Diagnoses Not on filedocumented in this encounter"
--- OUTSIDE RECORDS SUMMARY | ~2019-07-14 | XMS | Encounter Summary ---
Demographics + + + | Address | [address] | | | [place] [address] | + + + | Home Phone [...] + + + | Author | [facility] | | | and [place] | + + + | Organization | [facility] | | | and [place] [...] Team Providers + +------+ + | Care Log Driver Name | Role | Phone | + +------+ + | Jinny Bergeron MD | PCP | | + +------+ + Reason for Visit + + + | Reason | Comments | + + + | Procedure | surgery time | + + + Encounter Details +--------+ + + + + | Date | Type | Department | Care Team | Description | +--------+ + + + + | 04/03/ | Telephone | [facility] | Mckay De Leon MD | Procedure (surgery | | 2016 | | OTOLARYNGOLOGY [address] | [address] [place] | time ) | | | | [address] | [address], | | | | | [place] | [place] [id number] | | | | | [address] | [phone] | | | | | [phone] | | | +--------+ + + + [...] 2020 | Visit | | [address] | | | | | | [place] | | | | | | [address] | | | | | | | | +--------+---------+ + + + documented as of this encounter Visit Diagnoses Not on filedocumented in this encounter"
--- OUTSIDE RECORDS SUMMARY | ~2019-07-14 | XMS | Encounter Summary ---
Demographics + + + | Address | [address] | | | [place] [address] | + + + | Home Phone [...] + + + | Author | [place] [employer] [facility] | + + + | Organization | [facility] | + [...] Team Providers + +------+ + | Care Peer Support Specialist Name | Role | Phone | + +------+ + | Jinny Bergeron MD | PCP | | + +------+ + Encounter Details +--------+ + + + + | Date | Type | Department | Care Team | Description | +--------+ + + + + | 09/05/ | Telephone | Neurosurgery at | Donnie, | | | 2011 | | [address] | Cathie | | | | | [place] Mailcode: CH8N | DNP,HEEL [place]HER,[place] [address] | | | | | [facility] | [place]ura [place]oya | | | | | and [place] | [place] [address] | | | | | [place] [address] | [phone] | | | | | [facility] [place] | | | | | | [address] | | | | | | [phone] | | | +--------+ + + + [...] Rd | | | | | | [place], [place] | | | | | | [address] | | | | | | [phone] | | | | | | | | +--------+---------+ + + + documented as of this encounter Visit Diagnoses Not on filedocumented in this encounter"
--- OUTSIDE RECORDS SUMMARY | ~2019-07-14 | XMS | Encounter Summary ---
Demographics + + + | Address | [address] | | | [place] [address] | + + + | Home Phone | | + + + | Preferred Language | Unknown | + + + | Marital Status | Single | + + + | Spiritism Affiliation | NON | + + + | Race | or | + + + | Ethnic Group | Not or | + + + Author + + + | Author | [place] [employer] [facility] | + + + | Organization | [facility] | [...] Team Providers + +------+ + | Care Coder Name | Role | Phone | + [...] | Chest pain, | [place], | [address] | | | | | unspecified | [address] | [address] | | | | | type | [address] | [address] | | | | | Coronary | [address] | Mailcode: | | | | | artery | [facility], [place] | [address] | | | | | disease of | [address] | [address] | | | | | an[place] | Phone: | [place], [place] | | | | | artery of | [phone] | [address] | | | | | anvik heart | Fax: | Phone: | | | | | with stable | [phone] | [phone] | | | | | angina | | Fax: | | | | | pectoris | | [phone] | | | | | (HCC) | [...] | | | | | | | MD HT MUSCLE | | | | | [...] Closed | | Radiology | Diagnoses | Hernandez, | Rad Nuc Med | | | | | Chest pain, | Zule[place], | [address] | | | | | unspecified | MD [address] | [address] | | | | | type | [address] | [address] | | | | | Coronary | [address] | Mailcode: | | | | | artery | [place], [place] | [address] | | | | | disease of | [address] | [facility] | | | | | anvik | Phone: | [place], [place] | | | | | artery of | [phone] | [address] | | | | | anvik heart | Fax: | Phone: | | | | | with stable | [phone] | [phone] | | | | | angina | | Fax: | | | | | pectoris | | [phone] | | | | | (HCC) | [...] | | | | | | | MD HT MUSCLE | | | | | | | IMAGE | | | | | | | SPECT, MULT | | | +--------+--------+ + + + + Encounter Details +--------+ + + + + | Date | Type | Department | Care Team | Description | +--------+ + + + + | 06/29/ | Hospital | Nuclear Medicine | Zuleika Hernandez, | | | 2018 | Encounter | at [facility] [address] | [address] | | | | | [address] | [facility] Abdoulaye | | | | | Mailcode: [address] | [place], [place] | | | | | [facility] | [address] | | | | | [place], [place] | [phone] | | | | | [address] | | | | | | [phone] | | | +--------+ + + + [...] tablet by | 20 | 1 | //20 | | | oral tablet | mouth [...] Rd | | | | | | [place], [place] | | | | | | [address] | | | | | | [phone] | | | | | | | | +--------+---------+ + + + documented as of this encounter Procedures + +--------+ + + + | Procedure Name | Priori | Date/Time | Associated Diagnosis | Comments | | | ty | | | | + +--------+ + + + | NM MYOCARDIAL | Routin | 06/30/2018 | Chest pain, | Results for this | | PERFUSION (SPECT) | e | 10:38 AM | unspecified type | procedure are in the | | MULTIPLE STUDIES | | PST | Coronary artery | results section. | | WITH EXERCISE | | | disease of anvik | | | | | | artery of anvik | | | | | | heart with stable | | | | | | angina pectoris | | | | | | ([facility]) | | + +--------+ + + + | ORDERS OTHER | | 06/29/2018 | | Results for this | | | | 12:00 AM | | procedure are in the | | | | PST | | results section. | + +--------+ + + + documented in this encounter Results NM MYOCARDIAL PERFUSION (SPECT) [...] Note | + + | Service Account, Radiant Res In Interface - 07/08/2018 12:30 PM CESAR [...] risk study. Study interpreted with | | Nitin Castle from Cardiology. I [...] necessary, edited the report. I agree with e report as now presented. 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
--- OUTSIDE RECORDS SUMMARY | ~2019-07-14 | XMS | Encounter Summary ---
Demographics + + + | Address | [address] | | | [place] [address] | + + + | Home Phone [...] Providers + +------+ + | Care Computer Forensic Specialist Name | Role | Phone | [...] Rd | | | | | | [place] | | | | | | [address] | | | | | | [phone] | | | | | | | | +--------+---------+ + + + documented as of this encounter Visit Diagnoses Not on filedocumented in this encounter"
--- OUTSIDE RECORDS SUMMARY | ~2019-07-14 | XMS | Encounter Summary ---
Demographics + + + | Address | [address] | | | [place] [address] | + + + | Home Phone | | + + + | Preferred Language | Unknown | + + + | Marital Status | Single | + + + | Catholic Affiliation | Unknown | + + + | Race | Unknown | + + + | Ethnic Group | Unknown | + + + Author + + + | Author | [facility] | | | and [place] | + + + | Organization | [facility] | | | and [...] Team Providers + +------+ + | Care Measurer Machine Name | Role | Phone | [...] Closed | | Otolaryngolog | Diagnoses | [place], | Mckay Zafar | | | | y | Follow up, | BRETT Schneider | MD Josef [address] | | | | | nose/Atena/ | [address] | [address] | | | | | Rubio/ | St [place] | [address] | | | | | Self/Request | [place], [place] | [place], | | | | | ed YH auth | [address] | [place] [address] | | | | | for DOS | Phone: | Phone: | | | | | 04-16-16 | [phone] | [phone] | | | | | Procedures | Fax: | Fax: | | | | | OFFICE VISIT | [phone] | [phone] | | | | | REGULAR | | | +--------+--------+ + + + + Encounter Details +--------+---------+ + + + | Date | Type | Department | Care Team | Description | +--------+---------+ + + + | 04/16/ | Office | [facility] | Mckay Zafar MD | Hypertrophy of nasal | | 2016 | Visit | OTOLARYNGOLOGY [address] | [address] [place] | turbinates (Primary | | | | [address] | [address] [place], | Dx); 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[place], [place] | [place] [address] | septum; Obstructive | | | | [address] | [phone] | sleep apnea (adult) | | | | [phone] | | (pediatric) | +--------+---------+ + + [...] MD - 04/16/2016 2:11 PM PDT [facility] OTOLARYNGOLOGY [address] [place] [address] OFFICE NOTE MCKAY ZAFAR MD Patient: FAROOQ LEMA Admitting: MR #: [id number] LOC: PT TYPE: Adm Date: 04/16/2016 : [...] Transcribed on 04/17/2016 05:18:08 by nasima lion# [id number] Confirmation #: [id number] cc: JINNY BERGERON MD [facility], Mckay Bahena MD - 04/16/2016 2:08 PM PDTSee dictation #[id number] signed by Mckay Zafar MD at 04/16/2016 2:12 PM PDTdocumented in this encounter Plan of Treatment +--------+---------+ + + + | Date | Type | Specialty | Care Team | Description | +--------+---------+ + + + | 11/21/ | Office | Sleep Medicine | Sumanth Champion PA | | | 2019 | Visit | | [address] | | | | | | [place] | | | | | | [address] | | | | | | | | +--------+---------+ + + + documented as of this encounter Visit Diagnoses + + | Diagnosis | + + | Hypertrophy of nasal turbinates - Primary | + + | Deviated nasal septum | + + | Obstructive sleep apnea (adult) (pediatric) | + + documented in this encounter
--- OUTSIDE RECORDS SUMMARY | ~2019-07-14 | XMS | Encounter Summary ---
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 Medications: None, other [...] Labs: Labs done prior to presenting to [facility] include a free T4 of 0.7, with [...] and endocrine testing. Addendum: Laboratory results from [facility] testing reveal a free T4 of 0.8 [...] 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 Lb Guillaume M.D., Ph.D. [facility] / [id number] / [id number] / [id number] / [id number] / [id number] / [id number] / [id number] A: 08/26/2005 seth cc: Shravan Montanez MD [address] [place] [address] Electronically signed by Lb Guillaume (Bill) 09-06-2005 [...] [address] | | | | | | [place], [place] | | | | | | [address] | | | | | | [phone] | | | | | | | | +--------+---------+ + + + documented as of this encounter Visit Diagnoses Not on filedocumented in this encounter"
--- OUTSIDE RECORDS SUMMARY | ~2019-07-14 | XMS | Encounter Summary ---
Demographics + + + | Address | [address] | | | [place] [address] | + + + | Home Phone [...] + + + | Author | [place] [employer] [facility] | + + + | Organization | [facility] [...] Team Providers + +------+ + | Care Clerical Investigator Name | Role | Phone | + [...] | | | Ave Mailcode: CH8A | [place], [place] | Duct (Pouch) (HCC) | | | | [facility] | [address] | (Primary Dx) | | | | and Healing, | [phone] | | | | | [facility] | | | | | | Floor [place], [place] | | | | | | [address] | | | | | | [phone] | | | +--------+ + + + [...] | | 2020 | Visit | | [address] | | | | | | [address] | | | | | | [place], [place] | | | | | | [address] | | | | | | [phone] | | | | | | | | +--------+---------+ + + + + +------+--------+ + + | Name | Type | Priori | Associated Diagnoses | Order Schedule | | | | ty | | | + +------+--------+ + + | [facility] | Lab | Routin | [...] + + + + + | [facility] | [address] | [place] [address] | | | LABORATORY | | | [...]
--- OUTSIDE RECORDS SUMMARY | ~2019-07-14 | XMS | Encounter Summary ---
Demographics + + + | Address | [address] | | | [place] [address] | + + + | Home Phone [...] + + + | Author | [place] [employer] [facility] | + + + | Organization | 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 | | | | | | | (HCC) | | | | | | | 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 | | | | | | | ([facility]) | | | | | | [...] Description | +--------+---------+ + + + | 05/05/ | Office | Neurosurgery at | [place], | Panhypopituitarism | | 2017 | Visit | [facility] [address] | Cathie, | ([facility]) (Primary Dx) | | | | Ave Mailcode: CH8N | DNP,AUTOCAD DESIGNER,[place] [address] | | | | | [facility] | [address] [place], | | | | | and Healing, | [place] [address] | | | | | Building [address] | [phone] | | | | | [place], [place] | | | | | | [address] | | | | | | [phone] | | | +--------+---------+ + + + [...] documented as of this encounter Progress Notes Cathie Fields DNP, FNP, [place] - 12/12/2016 9:00 AM PDTPatient cancelled documented in this encounter Plan of Treatment +--------+---------+ + + + | Date | Type | Specialty | Care Team | Description | +--------+---------+ + + + | 08/15/ | Office | Cardiology | Zuleika Hernandez, | | | 2019 | Visit | | [address] | | | | | | [address] | | | | | | [place], [place] | | | | | | [address] | | | | | | [phone] | | | | | | | | +--------+---------+ + + + documented as of this encounter Visit Diagnoses + + | Diagnosis | + + | Panhypopituitarism (HCC) - Primary Panhypopituitarism | + + documented in this encounter"
--- OUTSIDE RECORDS SUMMARY | ~2019-07-14 | XMS | Encounter Summary ---
Demographics + + + | Address | [address] [facility] [address] | | | [place] [address] | + + + | Home Phone [...] + + + | Author | [place] [employer] [facility] | + + + | Organization | [facility] [...] Team Providers + +------+ + | Care Bakery Clerk Name | Role | Phone | + +------+ + PCP | Unavailable | + +------+ + Reason for Visit + + + | Reason | Comments | + + + | Refill Request | | + + + Encounter Details +--------+--------+ + + + | Date | Type | Department | Care Team | Description | +--------+--------+ + + + | 08/06/ | Refill | Neurosurgery at | [place], | Refill Request | | 2015 | | [facility] [address] | Cathie, | | | | | [place] Mailcode: CH8N | DNP,PURSE SEINING HAND,[place] [address] | | | | | [facility] | [address] [place], | | | | | and [facility], | [place] [address] | | | | | Building [address] | [phone] | | | | | [place], [place] | | | | | | [address] | | | | | | [phone] | | | +--------+--------+ + + + [...] Rd | | | | | | [place], [place] | | | | | | [address] | | | | | | [phone] | | | | | | | | +--------+---------+ + + + documented as of this encounter Visit Diagnoses Not on filedocumented in this encounter"
--- OUTSIDE RECORDS SUMMARY | ~2019-07-14 | XMS | Encounter Summary ---
Demographics + + + | Address | [address] | | | [place] [address] | + + + | Home Phone [...] + + + | Author | [place] [employer] [facility] | + + + | Organization | [facility] | [...] Team Providers + +------+ + | Care Twist Maker Name | Role | Phone | + +------+ + | No Pcp Per Patient | PCP | Unavailable | + +------+ + Encounter Details +--------+ + + + + | Date | Type | Department | Care Team | Description | +--------+ + + + + | 06/25/ | MyChart | Neurosurgery at | Donnie, | RE: VITAMIN D | | 2008 | Encounter | [facility] [address] | Cathie | | | | | [place] Mailcode: CH8N | DNP,DIET KITCHEN COOK,[place] [address] | | | | | [facility] | [address] [place], | | | | | and Healing, | [place] [address] | | | | | [facility] | [phone] | | | | | Floor [place], [place] | | | | | | [address] | | | | | | [phone] | | | +--------+ + + + [...] Rd | | | | | | [place], [place] | | | | | | [address] | | | | | | [phone] | | | | | | | | +--------+---------+ + + + documented as of this encounter Visit Diagnoses Not on filedocumented in this encounter"
--- OUTSIDE RECORDS SUMMARY | ~2019-07-14 | XMS | Encounter Summary ---
Demographics + + + | Address | [address] | | | [place] [address] | + + + | Home Phone [...] + + + | Author | [place] [employer] [facility] | + + + | Organization | Pending Sale To [facility] [...] Team Providers + +------+ + | Care Police Officer Name | Role | Phone | [...] (External | | 2018 | | at [facility] [address] | MD [address] | order (CT)) | | | | [address] Rosalva Mailcode: | Kit Flores | | | | | [facility] | [place], [place] | | | | | Health and Healing, | [address] | | | | | [facility] | [phone] | | | | | floor [place], [place] | | | | | | [address] | | | | | | [phone] | | | +--------+ + + + [...] AM PDTTest/Study/Procedure: CT Dx: I25.118, I51.89 CPT: 00295 Ordering Provider: Zuleika Hernandez DOS: TBA Location name: [facility] Location address: [address] [place] [address] Location phone/fax: [phone] , fax Insurance Name: [facility] (secondary) ID Number: [id number], [id number] (secondary) TEL: [phone], (secondary) Notes: 04/07- PCI approved ([id number]- [id number], 04/06/18- 07/07/18 [facility]) Angio approved ([id number]- [id number], 04/07/18- 05/22/18 per [facility]) -Omid from [facility] says CT is approved- [id number], 04/01/18- 07/04/18 and will fax au th for Angio 04/06- Per fax stacy and Ruba from [facility], [phone] is processed through [facility] and [phone] is processed through Nancy but new auth needs to be submitted since original request was sent back (Call ref# [id number]) 2nd attempt [place] [id number] re faxed to [facility] - [place] at [facility] started case and asked chart notes be faxed in with case# [id number] attached Chart notes faxed, will check status Thur - S/w Omid at [facility] who says CTA auth pending as well and she will keep me updated. 04/01- Per Omid at [facility] (PCP/insurance), need chart notes to submit auth for CT jhoan ng done at [facility] in [facility] [phone] (not in office on Fridays) - Chart notes faxed to [employer] at [phone] - [facility] WAX SPECIALIST, request for Angio was received and is pending (call ref# [id number]) documented in this encounter Plan of Treatment +--------+---------+ + + + | Date | Type | Specialty | Care Team | Description | +--------+---------+ + + + | 08/15/ | Office | Cardiology | Zuleika Hernandez, | | | 2020 | Visit | | [address] | | | | | | [address] | | | | | | [place] | | | | | | [address] | | | | | | [phone] | | | | | | | | +--------+---------+ + + + documented as of this encounter Visit Diagnoses Not on filedocumented in this encounter"
--- OUTSIDE RECORDS SUMMARY | ~2019-07-14 | XMS | Encounter Summary ---
Demographics + + + | Address | [address] | | | [place] [address] | + + + | Home Phone [...] + + + | Author | [place] [employer] [facility] | + + + | Organization | [facility] | + + + | Address | Unknown | + + + | Phone | Unavailable | + + + Support + + +---------+ + | Name | Relationship | Address | Phone | + + +---------+ + | Alexandria Dixon | ECON | Unknown | | + + +---------+ + Care Team Providers + +------+ + | Care Tumbling Machine Operator Name | Role | Phone [...] Description | +--------+---------+ + + + | 03/10/ | Office | Neurosurgery at | [place], | Pituitary Adenoma | | 2007 | Visit | [facility] [address] | [place], | ([facility]); 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Ave Mailcode: CH8N | DNP,COOLER WORKER,[place] [address] | Hormone Deficiency | | | | Rena Lara for [facility] | [address] [place], | ([facility]); 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, | [place] [address] | Insipidus ([facility]); | | | | Building [address] | [phone] | Hypogonadism Male; | | | | [place], [place] | | Hypothyroid; 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 ([facility]) | | | | [phone] | | | +--------+---------+ + + + [...] + + + | Blood Pressure | 119/66 | 03/10/2008 10:36 AM | | | | | PDT | | + + + + + | Pulse | 77 | 03/10/2008 10:36 AM | | | | | PDT [...] + + + + | Weight | 125.6 kg (277 lb) | 03/10/2008 10:36 AM | | | | | PDT | | + + + + + | Height | 172.7 cm (5' 8") | 03/10/2008 10:36 AM | | | | | PDT | | + + + + + | Body Mass Index | 42.12 | 03/10/2008 10:36 AM | | | | | PDT | | + + + + + documented in this encounter Progress Cathie Carrillo - 03/13/2008 6:06 AM PDTSee visit note same date documented in this encounter Plan of Treatment +--------+---------+ + + + | Date | Type | Specialty | Care Team | Description | +--------+---------+ + + + | 08/15/ | Office | Cardiology | Zuleika Hernandez, | | | 2020 | Visit | | [address] | | | | | | [address] | | | | | | [place], [place] | | | | | | [address] | | | | | | [phone] | | | | | | | | +--------+---------+ + + + documented as of this encounter Procedures + +--------+ + + + | Procedure Name | Priori | Date/Time | Associated Diagnosis | Comments | | | ty | | | | + +--------+ + + + | CORTISOL, SERUM | Routin | 03/10/2008 | Pituitary Adenoma | Results for this | | | e | 12:00 PM | (HCC) Growth | procedure are [...] + | INSULIN GROWTH | Routin | 03/10/2008 | Pituitary Adenoma | Results for this | | FACTOR-1, SERUM | e | 11:30 AM | (HCC) Growth | procedure are [...] + + | PROLACTIN | Routin | 03/10/2008 | Pituitary Adenoma | Results for this | | | e | 11:30 AM | (HCC) Growth | procedure are [...] + + | TSH | Routin | 03/10/2008 | Pituitary Adenoma | Results for this | | | e | 11:30 AM | (HCC) Growth | procedure are [...] + | TESTOSTERONE, SERUM | Routin | 03/10/2008 | Pituitary Adenoma | Results for this | | | e | 11:30 AM | (HCC) Growth | procedure are [...] + | ACTH, PLASMA | Routin | 03/10/2008 | Pituitary Adenoma | Results for this | | | e | 11:29 AM | (HCC) Growth | procedure are [...] | BASIC METABOLIC SET | Routin | 03/10/2008 | Pituitary Adenoma | Results for this | | (NA, K, CL, TCO2, | e | 11:29 AM | (HCC) Growth | procedure are [...] + | FREE T4 | Routin | 03/10/2008 | Pituitary Adenoma | Results for this | | | e | 11:29 AM | (HCC) Growth | procedure are [...] + | LUTEINIZING HORMONE, | Routin | 03/10/2008 | Pituitary Adenoma | Results for this | | SERUM | e | 11:29 AM | (HCC) Growth | procedure are [...] + | FSH, SERUM | Routin | 03/10/2008 | Pituitary Adenoma | Results for this | | | e | 11:29 AM | (HCC) Growth | procedure are [...] + | CORTISOL, SERUM | Routin | 03/10/2008 | Pituitary Adenoma | Results for this | | | e | 11:29 AM | (HCC) Growth | procedure are [...] documented in this encounter Results CORTISOL, SERUM (03/10/2008 12:00 PM PDT) + + + + + + | Component | Value | Ref Range | Performed | Pathologist | | | | | At | Signature | + + + + + + | CORTISOL, | 6.7 | ug/dl | | | | TOTAL [...] Ranges | | | AM Reference Range: 7.0 - 23.0 ug/dl | | | PM Reference Range: Less than 10.0 ug/dl | | | Reference Range change effective 05/31/07 | | | [facility] ([facility]) | | | [facility] | | | [address] [place], [place] | | | [address] | | + + + + + + + + | Performing | Address | City/State/Zipcode | Phone Number | | Organization | | | | + + + + + | [facility] | [address] | [place] [address] | | | LABORATORY | | | | + + + + + TSH (03/10/2008 11:30 AM PDT) + + + + + + | Component | Value | Ref Range | Performed | Pathologist | | | | | At | Signature | + + + + + + | TSH | 0.04 (L) | 0.34 - 5.60 | | | | | | uIU/ml | | | + + + + + + + + | Specimen | + + | Blood - Blood | + + + + + | Narrative | Performed At | + + + | Low TSH (suggests Hyperthyroid) | | | Reference range change effective 05/31/07 | | | [facility] ([facility]) [facility] | | | [facility] [address] | | | [place] [address] | | + + + + + + + + | Performing | Address | City/State/Zipcode | Phone Number | | Organization | | | | + + + + + | [facility] | [address] | [place] [address] | | | LABORATORY | | | | + + + + + TESTOSTERONE, SERUM (03/10/2008 11:30 AM PDT) + +--------+ + + + | Component | Value | Ref Range | Performed | Pathologist | | | | | At | Signature | + +--------+ + + + | TESTOSTERON | 87 (L) | 175 - 781 ng/dl | | | | E, SERUM | | | | | + +--------+ + + + + + | Specimen | + + | Blood - Blood | + + + + + | Narrative | Performed At | + + + | Reference Range change effective | | | 05/31/07 RL ([facility]) | | | [facility] [place] [address] | | | [place] [address] | | + + + + + + + + | Performing | Address | City/State/Zipcode | Phone Number | | Organization | | | | + + + + + | [facility] | [address] | [place] [address] | | | LABORATORY | | | | + + + + + PROLACTIN, SERUM (03/10/2008 11:30 AM PDT) + +-------+ + + + [...] [facility] ([facility]) | | | [facility] [place] [address] | | | [place] [address] | | + + + + + + + + | Performing | Address | City/State/Zipcode | Phone Number | | Organization | | | | + + + + + | [facility] | [address] | [place] [address] | | | LABORATORY | | | | + + + + + INSULIN GROWTH FACTOR-1, SERUM (03/10/2008 11:30 AM PDT) + + + + + + | Component | Value | Ref Range | Performed | Pathologist | | | | | At | Signature | + + + + + + | IGF-1 | 173Comment: Test | 117 - 329 ng/mL | | | | | performed by [facility] | | | | | | [facility] | | | | + + + + + + + + | Specimen | + + | Blood - Blood | + + + + + + + | Performing | Address | City/State/Zipcode | Phone Number | | Organization | | | | + + + + + | [facility] | [address] | [place] [address] | | | LABORATORY | | | | + + + + + LUTEINIZING HORMONE, SERUM (03/10/2008 11:29 AM PDT) + +-------+ + + + | Component | Value | Ref Range | Performed | Pathologist | | | | | At | Signature | + +-------+ + + + | LUTEINIZING | 2 | <11 mIU/mL | | | | [...] Range change effective | | | 05/31/07 RL ([facility]) | | | [facility] [place] [address] | | | [place] [address] | | + + + + + + + + | Performing | Address | City/State/Zipcode | Phone Number | | Organization | | | | + + + + + | [facility] | [address] | [place] [address] | | | LABORATORY | | | | + + + + + FSH, SERUM (03/10/2008 11:29 AM PDT) + +-------+ + + + | Component | Value | Ref Range | Performed | Pathologist | | | | | At | Signature | + +-------+ + + + | FSH,SERUM | 2 | <19 mIU/mL | | | + +-------+ + + + + + | Specimen | + + | Blood - Blood | + + + + + | Narrative | Performed At | + + + | [facility] ([facility]) [facility] | | | [facility] [place] [address] | | | [place] [address] Reference | | | Range change effective 05/31/07 | | + + + + + + + + | Performing | Address | City/State/Zipcode | Phone Number | | Organization | | | | + + + + + | [facility] | [address] | [place] [address] | | | LABORATORY | | | | + + + + + FREE T4, SERUM (03/10/2008 11:29 AM PDT) + +-------+ + + + | Component | Value | Ref Range | Performed | Pathologist | | | | | At | Signature | + +-------+ + + + | FREE T4, | 1.1 | 0.6 - 1.6 ng/dL | | | | SERUM | | | | | + +-------+ + + + + + | Specimen | + + | Blood - Blood | + + + + + | Narrative | Performed At | + + + | Reference Range change effective | | | 05/31/07 [facility] ([facility]) | | | [facility] [place] [address] | | | [place] [address] | | + + + + + + + + | Performing | Address | City/State/Zipcode | Phone Number | | Organization | | | | + + + + + | [facility] | [address] | [place] [address] | | | LABORATORY | | | | + + + + + BASIC METABOLIC SET (NA, K, CL, TCO2, BUN, CR, GLU, CA) (03/10/2008 11:29 AM PDT) + + + + + + | Component | Value | Ref Range | Performed | Pathologist | | | | | At | Signature | + + + + + + | GLUCOSE, | 71 | 60 - 99 mg/dL | [facility] | | | PLASMA | | | DEPARTMENT | | | (LAB) | | | OF | | | | | | PATHOLOGY | | + + + + + + | BUN, PLASMA | 8 | 6 - 20 mg/dL | [facility] [...] + + + + | POTASSIUM, | 3.8 [...] + | TOTAL CO2, | 28 | 23 - 31 mmol/L | [facility] | | | PLASMA | | | DEPARTMENT | | | (LAB) | | | OF | | | | | | PATHOLOGY | | + + + + + + | CALCIUM, | 9.4 [...] Performed At | + + + | [id number] Estimated GFR > 60 mL/min/1.73 sq m if non- | [facility] | | Croatian [id number] Estimated GFR > 60 mL/min/1.73 sq m if | DEPARTMENT OF | | [place] GFR is estimated using the MDRD equation [...] | | - Rapidly changing kidney function New Reference ranges | | | effective 01/27/08 for: Sodium, Potassium, Chloride,Total CO2, | | | Calcium | | + + + + + + + + | Performing | Address | City/State/Zipcode | Phone Number | | Organization | | | | + + + + + | [facility] DEPARTMENT | [address] [place] [address] | [place] [address] | | | PATHOLOGY | [address] | | | + + + + + | [facility] | [address] [facility] | [place] [address] | | | PATHOLOGY | [address] | | | + + + + + CORTISOL, SERUM (03/10/2008 11:29 AM PDT) + + + + + + | Component | Value | Ref Range | Performed | Pathologist | | | | | At | Signature | + + + + + + | CORTISOL, | 3.1 | ug/dl | | | | TOTAL [...] Ranges | | | AM Reference Range: 7.0 - 23.0 ug/dl | | | PM Reference Range: Less than 10.0 ug/dl | | | Reference Range change effective 05/31/07 | | | [facility] ([facility]) | | | [facility] | | | [address] [place], [place] | | | [address] | | + + + + + + + + | Performing | Address | City/State/Zipcode | Phone Number | | Organization | | | | + + + + + | [facility] | [address] | [place] [address] | | | LABORATORY | | | | + + + + + ACTH, SERUM (03/10/2008 11:29 AM PDT) + + + + + + | Component | Value | Ref Range | Performed | Pathologist | | | | | At | Signature | + + + + + + | ACTH,PLASMA | 30Comment: Test | <46 pg/mL | | | | | performed by [facility] | | | | | | [facility] | | | | | | Laboratories. [...] + + + | [facility] | [address] | [place] [address] | | | LABORATORY | | | [...]
--- OUTSIDE RECORDS SUMMARY | ~2019-07-14 | XMS | Encounter Summary ---
Demographics + + + | Address | [address] | | | [place] [address] | + + + | Home Phone [...] Phone | + + +---------+ + | Aleaxndria Dixon | ECON | Unknown | | + + +---------+ + Care Team Providers + +------+ + | Care Coil Winder Repair Name | Role | Phone | [...] [address] | | | | | | [place], [place] | | | | | | [address] | | | | | | [phone] | | | | | | | [...] | Transcriptions | + + | Interface, Aircraft Engineer In - 10/04/2005 2:04 AM PST | | [id number] | | [id number] TOREY TRIVEDI V | | | | Date: 09/15/2005 | | | | Attending Surgeon: Reuben Styles M.D. | | | | Branch Billing Payroll Clerk(s): Scott Munroe M.D. | | | | [...] | | head was secured in the [place] headholder in mild lateral flexion to the [...] | | | / HS | | [id number] / [id number] / [id number] / 22315 | | | | | | E: 09/17/2005 cmw | | | | | | Electronically signed by Scott Munroe 10-02-2005 03:22:06 PM | | Electronically signed by Reuben Styles 10-03-2005 04:15:14 PM | + + OPERATION RECORD (09/15/2005) + + | Transcriptions | + + | Interface, Aircraft Engineer In - 09/19/2005 2:05 AM PST | | [id number] | | [id number] TOREY FAROOQ Luz | | | | Date: 09/15/2005 | | | | Attending Surgeon: Misael West M.D. | | | | Branch Billing Payroll Clerk(s): Zander Esquivel M.D. | | | | [...] | | ZS / HS | | [id number] / [id number] / [id number] / | | | | | | | | | | | | Electronically signed by Misael West 09-18-2005 12:20:20 PM | + + documented in this encounter Visit Diagnoses Not on filedocumented in this encounter"
--- OUTSIDE RECORDS SUMMARY | ~2019-07-14 | XMS | Encounter Summary ---
Demographics + + + | Address | [address] | | | [place] [address] | + + + | Home Phone | | + + + | Preferred Language | Unknown | + + + | Marital Status | Single | + + + | Samaritan Affiliation | Unknown | + + + | Race | Unknown | + + + | Ethnic Group | Unknown | + + + Author + + + | Author | [facility] | | | and [place] | + + + | Organization | [facility] | | | and [place] [...] Team Providers + +------+ + | Care Clock Smith Name | Role | Phone | + [...] | Required | | erythrocytos | PA-C [address] | [address] | | | | | is | | STREET | | | | | Procedures | CONF[place]ATED | [place], | | | | | [place] OFFICE | WAY | [place] [address] | | | | | OUTPATIENT | FAISAL, | Phone: | | | | | VISIT 25 | [place] [address] | [phone] | | | | | MINUTES | Phone: | Fax: | | | | | | [phone] | [phone] | | | | | | Fax: | | | | | | | [phone] | | +--------+ + + + + + Encounter Details +--------+ + + + + | Date | Type | Department | Care Team | Description | +--------+ + + + + | 06/09/ | Hospital | [facility] | Jimmy Lara, | Erythrocytosis | | 2018 | Encounter | [facility] | [address] | (Primary Dx); | | | | [facility] [address] | [place]A [place], | Pituitary adenoma | | | | [address] | [place] [address] | (HCC) | | | | [place] [address] | [phone] | | | | | [phone] | | | +--------+ + + + [...] 2019 | Visit | | [address] | | | | | | [place] | | | | | | [address] | | | | | | | [...] the | | | | | | [id number] was not | | | | | [...] gene | | | | | | ([id number]) encoding | | | | | | 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 A | | | | | | kcoz-xc-ykwhgvjptwmrrpnx | | | | | | of JAK2 in | | | | | | myeloproliferative | | | | | | disorders. N Engl J Med. | | | | | | 2005Apr 28; | | | | | | 352(56):1117-5745. | | | | + + + + + + | Director | CommentComment: Liudmila Tolbert, | | REFERENCE | | | Review | PhD, FACMG | | LAB [facility] | | | | Director, | | - BKR | | | | Molecular Genetics | | | | | | [facility] | | | | | | [place] [facility] | | | | | | | | | | | | Biology and Pathology | | | | | | | | | | | | [facility], | | | | | | [place] | | | | | | This test | | | | | | was developed and its | | | | | | performance | | | | | | characteristicsdetermine | | | | | | d by [facility]. It has not | | | | [...] | Performed at: - [facility] [address] [facility], | REFERENCE LAB | | [facility], [place] [id number] Tissue Packer: Livia Mccormick MD, Phone: | [employer] | | [phone] Performed at: [facility] [address] [facility] | | [facility], [facility], [place] [id number] Tissue Packer: Livia Mccormick MD, | | | Phone: [phone] | | + + + + + + + + | Performing | Address | City/State/Zipcode | Phone Number | | Organization | | | | + + + + + | REFERENCE LAB | [address] | [place] [address] | [phone] | | [facility] | Drive [...] + + | Performed at: 01 - [facility] [address], | REFERENCE LAB | | [place], [place] [id number] Tissue Packer: Jus Hopkins MD, Phone: | [facility] | | [phone] | | + + + + + + + + | Performing | Address | City/State/Zipcode | Phone Number | | Organization | | | | + + + + + | REFERENCE LAB | [address] | [place] [address] | [phone] | | [facility] | Drive [...] | | | | WBC's | [facility] | | | | [...] [address] | [place] | [phone] | | [facility] | | [address] | | | - LABORATORY | | [...]
--- OUTSIDE RECORDS SUMMARY | ~2019-07-14 | XMS | Encounter Summary ---
Demographics + + + | Address | [address] | | | [place] [address] | + + + | Home Phone [...] + + + | Author | [place] [employer] [facility] | + + + | Organization | [facility] | + + + | Address | Unknown | + + + | Phone | Unavailable | + + + Support + + +---------+ + | Name | Relationship | Address | Phone | + + +---------+ + | Alexandria Dixon | ECON | Unknown | | + + +---------+ + Care Team Providers + +------+ + | Care Charm Filter Operator Helper Name | Role | Phone | [...] Refill Request | | 2007 | | [facility] [address] | [place], | | | | | [place] Mailcode: CH8N | DNP,REGULATORY SERVICES CONSULTANT,[place] [address] | | | | | [facility] | [address] [place], | | | | | and [facility], | [place] [address] | | | | | Building [address] | [phone] | | | | | [place], [place] | | | | | | [address] | | | | | | [phone] | | | +--------+--------+ + + + [...] Rd | | | | | | [place], [place] | | | | | | [address] | | | | | | [phone] | | | | | | | | +--------+---------+ + + + documented as of this encounter Visit Diagnoses Not on filedocumented in this encounter"
--- OUTSIDE RECORDS SUMMARY | ~2019-07-14 | XMS | Encounter Summary ---
Demographics + + + | Address | [address] | | | [place] [address] | + + + | Home Phone [...] + + + | Author | [place] [employer] [facility] | + + + | Organization | [facility] [...] Providers + +------+ + | Care Retail Link Analyst Name | Role | Phone | [...] | Mitral | Ashish Hernandez PA-C | [facility] [address] | | | | | valve mass | [address] | [address] | | | | | Procedures | [address] | [address] | | | | | TRANSTHORACI | [address] | Mailcode: | | | | | C | [place], [place] | [address] | | | | | ECHOCARDIOGR | [address] | Kit [address] | | | | | AM, ADULT | Phone: | Building | | | | | | [phone] | [place], [place] | | | | | | Fax: | [address] | | | | | | [phone] | Phone: | | | | | | | [phone] | +--------+--------+ + + + + Encounter [...] | | | | | | Building [place], | | | | | | [place] [address] | | | | | | [phone] | | | +--------+ + + + [...] Rd | | | | | | [place], [place] | | | | | | [address] | | | | | | [phone] | | | | | | | [...]
--- OUTSIDE RECORDS SUMMARY | ~2019-07-14 | XMS | Encounter Summary ---
Demographics + + + | Address | [address] | | | [place] [address] | + + + | Home Phone [...] + + + | Author | [place] [employer] [facility] | + + + | Organization | [facility] | [...] Team Providers + +------+ + | Care Coat Operator Insulator Name | Role | Phone | [...] Description | +--------+--------+ + + + | 08/29/ | Refill | Neurosurgery at | Donnie, | Refill Request | | 2008 | | [facility] [address] | [place], | | | | | [place] Mailcode: CH8N | DNP,AUDIENCE DEVELOPMENT MANAGER,[place] [address] | | | | | [facility] | [address] [place], | | | | | and [facility], | [place] [address] | | | | | Building [address] | [phone] | | | | | [place], [place] | | | | | | [address] | | | | | | [phone] | | | +--------+--------+ + + + [...] Rd | | | | | | [place], [place] | | | | | | [address] | | | | | | [phone] | | | | | | | | +--------+---------+ + + + documented as of this encounter Visit Diagnoses Not on filedocumented in this encounter"
--- OUTSIDE RECORDS SUMMARY | ~2019-07-14 | XMS | Encounter Summary ---
Demographics + + + | Address | [address] | | | [place] [address] | + + + | Home Phone [...] + + + | Author | [employer] | + + + | Organization | [facility] | + + + | Address | Unknown | + + + | Phone | Unavailable | + + + Support + + +---------+ + | Name | Relationship | Address | Phone | + + +---------+ + | Alexandria Dixon | ECON | Unknown | | + + +---------+ + Care Team Providers + +------+ + | Care Pharmacology Associate Name | Role | Phone | + +------+ + | Bernardo Pan | PCP | | + +------+ + Encounter Details +--------+------+ + + + | Date | Type | Department | Care Team | Description | +--------+------+ + + + | 02/18/ | Lab | Laboratory at [facility] | | Pituitary adenoma | | 2018 | | [address] | | ([facility]); 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[place], [place]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 | | | | [address] | | ([facility]); Diabetes | | | | [phone] | | insipidus ([facility]); | | | | | | Hypogonadism [...] | | 2019 | Visit | | [address] | | | | | | [address] | | | | | | [place], [place] | | | | | | [address] | | | | | | [phone] | | | | | | | [...] [facility] | [address] | [place] [address] | | | SERVICES, CORE | KIMO [...] | + + + + + | [facility] | [address] | [place] [address] | | | VITALY RANKIN | KIMO [...] [facility] | [address] | [place] [address] | | | SERVICES, CORE | PARK [...] + + + | Test performed in [facility] lab. New reference range in effect | [facility] | | 2-18. | LABORATORY | | | SERVICES, CORE | + + + + + + + + | Performing | Address | City/State/Zipcode | Phone Number | | Organization | | | | + + + + + | [facility] | [address] | [place] [address] | | | SERVICES, CORE | KIMO [...] | | | | | | [facility] [employer],[address] | | | | | | [address], [facility],[place] | | | | | | [address] | | | | | | [phone]. | | | | | | Ty [...] [facility] | [address] | [place], [place] | | | [facility] | | [address] | | + + + + + [...] | | | LABORATORY | | | [place] | | | SERVICES, | | | [...] | + + + + + | [facility] | [address] | [place] [address] | | | VITALY RANKIN | KIMO [...]
--- OUTSIDE RECORDS SUMMARY | ~2019-07-14 | XMS | Encounter Summary ---
Demographics + + + | Address | [address] | | | [place] [address] | + + + | Home Phone [...] + + + | Author | [facility] | | | and [place] | + + + | Organization | [facility] | | | and [place] [...] Team Providers + +------+ + | Care Automotive Tire Testing Supervisor Name | Role | Phone | + +------+ + | Bren Arango PA-C | PCP | | + +------+ + Encounter Details +--------+ + + + + | Date | Type | Department | Care Team | Description | +--------+ + + + + | 04/16/ | Hospital | [facility] | Conversion | Coronary artery | | 2018 | Encounter | [facility] [address] | Transaction, | disease [place] | | | | [address] | Provider Unknown | artery [place] | | | | [place], [place] | [phone] | heart with stable | | | | [address] | | angina pectoris | | | | [phone] | Zuleika Hernandez MD | ([facility]) | | | | | [address] | | | | | | [address] [place], [place] | | | | | | [address] | | | | | | | [...] + + + +---------+ + + | UNABLE TO FIND | Psfudoephedrine 60mg | | 0 | | | | | in the AM as needed | | | | 8 | + + + +---------+ [...] [place] | | | | | | [address] | | | | | | | | +--------+---------+ + + + documented as of this encounter Procedures + +--------+ + + + | Procedure Name | Priori | Date/Time | Associated Diagnosis | Comments | | | ty | | | | + +--------+ + + + | CT ANGIOGRAM CHEST W | Routin | 04/16/2018 | | Results for this | | CONTRAST | e | 9:55 AM | | procedure are in the | | | | PDT | | results section. | + +--------+ + + + documented in this encounter Results CT Angiogram Chest W Contrast (04/16/2018 9:55 AM PDT) + + | Specimen | + + | | + + + + + | Impressions | Performed At | + + + | 1. No evidence of aortic aneurysm, aortic dissection and acute | | | intramural hematoma. 2. Three vessel coronary artery | | | atherosclerosis. LAD and coronary artery stent in situ. 3. | | | Additional incidental findings as detailed above. Electronically | | | signed by Paloma Veliz on 04/16/2018 11:48 AM | | + + + + + + | Narrative | Performed At | + + + | [facility] CTA CHEST 04/16/2018 9:55 AM HISTORY: 37 years. | | | Male. Coronary artery disease. History of recent coronary artery | | | intervention. Evaluate aorta. TECHNIQUE: 5-mm axial images were | | | acquired without intravenous contrast. Subsequently axial 0.625 mm | | | arterial phase images were acquired through the chest according to a | | | CT angiography protocol. Multiplanar CT angiographic MIP | | | reconstructions were performed from the arterial phase data set. | | | 3-D reconstructions were performed using the [employer]en[employer] 3-D software and | | | sent to PACS. Dose reduction techniques were used including automated | | | exposure control (AEC), iterative reconstruction technique, and/or mA | | | and/or kV dose adjustments based on patient size. The study is | | | not tailored for coronary artery evaluation. Oral Contrast: None | | | IV contrast: 100 mL IsoVue 370 COMPARISON: None. FINDINGS: | | | Normal thyroid. Left-sided 3 vessel aortic arch. No evidence of | | | aortic aneurysm, aortic dissection or acute intramural hematoma. | | | Pulmonary arteries are normal in caliber. No evidence of pulmonary | | | embolism. Normal cardiac size. LAD and circumflex coronary artery | | | stent in situ. Mild atherosclerosis of RCA. Normal thoracic | | | esophagus. No enlarged mediastinal lymph nodes. No airspace | | | consolidation. No pleural effusion or pneumothorax. No pulmonary | | | nodular mass. Diffuse hepatic steatosis. Colonic diverticulosis. | | | No acute fracture. No aggressive lytic or sclerotic lesion in | | | visualized bones. Mild thoracic spondylosis. | | + + + + -------+ | Procedure Note | + -------+ | Santhosh, Rad Conversion - 03/23/2019 6:17 AM PDT [facility] V CRYSTALNGCTA CHEST04/16/2018 9:55 AM | | HISTORY:37 years. Male. Coronary artery disease. History of recent coronary artery | | intervention. Evaluate aorta. TECHNIQUE:5-mm axial images were acquired without | | intravenous contrast. Subsequently axial 0.625 mm arterial phase images were acquired | | through the chest according to a CT angiography protocol. Multiplanar CT angiographic | | MIP reconstructions were performed from the arterial phase data set. 3-D | | reconstructions were performed using the [employer] 3-D software and sent to PACS. Dose | | reduction techniques were used including automated exposure control (AEC), iterative | | reconstruction technique, and/or mA and/or kV dose adjustments based on patient size. | | The study is not tailored for coronary artery evaluation. Oral Contrast: NoneIV | | contrast: 100 mL IsoVue 370 COMPARISON:None. FINDINGS:Normal thyroid. Left-sided 3 | | vessel aortic arch. No evidence of aortic aneurysm, aortic dissection or acute | | intramural hematoma. Pulmonary arteries are normal in caliber. No evidence of pulmonary | | embolism. Normal cardiac size. LAD and circumflex coronary artery stent in situ. Mild | | atherosclerosis of RCA. Normal thoracic esophagus. No enlarged mediastinal lymph nodes. | | No airspace consolidation. No pleural effusion or pneumothorax. No pulmonary nodular | | mass. Diffuse hepatic steatosis. Colonic diverticulosis. No acute fracture. No | | aggressive lytic or sclerotic lesion in visualized bones. Mild thoracic spondylosis. | | IMPRESSION: 1. No evidence of aortic aneurysm, aortic dissection and acute intramural | | hematoma.2. Three vessel coronary artery atherosclerosis. LAD and coronary artery stent | | in situ.3. Additional incidental findings as detailed above. | |FINDINGS: | |Normal thyroid. | | | |Left-sided 3 vessel aortic arch. No evidence of aortic aneurysm, aortic dissection or acute intramural hematoma. Pulmonary arteries are normal in caliber. No evidence of pulmonary emb olism. | | | |Normal cardiac size. LAD and circumflex coronary artery stent in situ. Mild atherosclerosis of RCA. | | | |Normal thoracic esophagus. No enlarged mediastinal lymph nodes. | | | |No airspace consolidation. No pleural effusion or pneumothorax. No pulmonary nodular mass. | | | |Diffuse hepatic steatosis. Colonic diverticulosis. | | | |No acute fracture. No aggressive lytic or sclerotic lesion in visualized bones. Mild thorac ic spondylosis. | | | |IMPRESSION: | |1. No evidence of aortic aneurysm, aortic dissection and acute intramural hematoma. | |2. Three vessel coronary artery atherosclerosis. LAD and coronary artery stent in situ. | |3. Additional incidental findings as detailed above. | | | | | + -------+ documented in this encounter Visit Diagnoses + + | Diagnosis | + + | Coronary artery disease of [place] artery [place] heart with stable angina pectoris | | (HCC) | + + documented in this encounter"
--- OUTSIDE RECORDS SUMMARY | ~2019-07-14 | XMS | Encounter Summary ---
Demographics + + + | Address | [address] | | | [place] [address] | + + + | Home Phone [...] + + + | Author | [employer] [facility] | + + + | Organization | [facility] | + + + | Address | Unknown | + + + | Phone | Unavailable | + + + Support + + +---------+ + | Name | Relationship | Address | Phone | + + +---------+ + | Alexandria Dixon | ECON | Unknown | | + + +---------+ + Care Team Providers + +------+ + | Care Head Tennis Coach Name | Role | Phone | + +------+ + | No Pcp Per Patient | PCP | Unavailable | + +------+ + Encounter Details +--------+ + + + + | Date | Type | Department | Care Team | Description | +--------+ + + + + | 09/15/ | MyChart | Neurosurgery at | Donnie, | RE: need help | | 2011 | Encounter | [facility] [address] | [place] | | | | | [place] Mailcode: [id number] | DNP,SALES/MARKETING,[place] [address] | | | | | [facility] | [address] [place], | | | | | and Healing, | [place] [address] | | | | | [place] [address] | [phone] | | | | | [place], [place] | | | | | | [address] | | | | | | [phone] | | | +--------+ + + + [...] [address] | | | | | | [place], [place] | | | | | | [address] | | | | | | [phone] | | | | | | | | +--------+---------+ + + + documented as of this encounter Visit Diagnoses Not on filedocumented in this encounter"
--- OUTSIDE RECORDS SUMMARY | ~2019-07-14 | XMS | Encounter Summary ---
Demographics + + + | Address | [address] | | | [place] [address] | + + + | Home Phone [...] Team Providers + +------+ + | Care Women'S Health Care Nurse Practitioner Name | Role | Phone | [...] as of this encounter Progress Notes Interface, Emergency Operator In - 10/09/2005 2:04 AM PST [id number] 09/16/2005 [id number] TOREY TRIVEDI V Consulting Physician: Lb Guillaume M.D., Ph.D. Consultation Date: 09/16/2005 Pituitary Diseases/Endocrine Inpatient Consult The patient is referred from Dr. Reuben Styles and referred to Dr. Lb Guillaume. Consultation by TOMER Landa. Reason for Consultation: Dr. Guillaume was asked by Dr. 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 This patient is seen as an inpatient on September 16, 2005. This visit was staffed by Dr. Lb Guillaume. History of Present Illness: The patient is a 25-year-old with a pituitary macro lesion and hypogonadism. An MRI in August 2005 was performed after evaluation for headaches. It was noted that this lesion compressed the optic chiasm without splaying it. The patient has noted worsening symptoms including headaches, periodic emesis, and nausea and vomiting associated with headaches. He complained of intermittent blurry vision, fatigue, anxiety, and difficulty staying asleep. He noted temperature fluctuations, hot flashes, night sweats, and he indicated recent weight loss. He complains of polyuria, polydipsia, and polyphagia both day and evening. He denies constipation, dry skin, and dizziness with standing. He denies any decreased sexual function or libido. The exact date of onset of symptoms is unknown. Review of Systems: Negative other than stated above. 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 Medications: Dexamethasone 2 mg q.6 h. and Tylenol No. 3 p.r.n. Allergies: None. Family History: The patient is an adopted child. He believes his mother had diabetes, father had heart disease, and mother hypertension. Social History: He smokes 3 packs of cigarettes per week, drinks alcohol once a week, and does not drink caffeinated beverages. He is single and currently unemployed. Physical Examination: Vital Signs: Blood pressure is 131/80, pulse 84, respirations 18, temperature 36.5, and oxygen saturation is 97% on room air. General: Pleasant male, looks his stated age with some central obesity. HEENT: Normocephalic, atraumatic with the exception of some mild paranasal edema and no significant nasal drainage except for some dry blood in nares. Pupils are equally responsive and reactive to light. Extraocular movements are intact. Visual godinez are normal to confrontation, and he has mild facial rounding and facial plethora. No acne, frontal bossing, protruding jaw, or gaps between his teeth. Neck: Without dorsocervical hump or supraclavicular fat pad filling. No lymphadenopathy or jugular venous distention. Thyroid is normal size and texture without bruits. Heart: Regular rate and rhythm. No murmurs, rubs, or gallops. Lungs: Clear to auscultation. No rhonchi, rales, or wheezes. Abdomen: Positive bowel tones. Nontender and nondistended. No organomegaly. Some truncal obesity. No abdominal striae. Breasts: Without tenderness or discharge. : Deferred. Skin: Without hyperpigmentation. It is not dry, sweaty, or oily. No acanthosis nigricans. No thinning of the skin or bruising. Extremities: Upper extremities: No proximal muscle weakness. No carpal tunnel syndrome, hand enlargement, or brittle fingernails. Lower extremities without edema. Neurologic: Alert and oriented x3. Motor and sensory 5/5 throughout. No delayed relaxation phase of the brachial reflex. Laboratory Data: Sodium is 141. Preoperative thyroid was normal with T4 of 0.7. Testosterone was low at 32, reference range 241 to 950 ng/mL. Prolactin normal at 16, reference range 3 to 17 ng/mL. MRI of August 20, 2005, revealed 1 to 1.5 pituitary lesion abutting and compressing but not splaying the optic chiasm. 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 Postoperatively, he is doing well. Denies any headache, nausea, dizziness, polyuria, polydipsia, or signs and symptoms of adrenal insufficiency or diabetes insipidus. Plan: 1. Hydrocortisone. 1.1. The patient will be tapered to 20 mg of hydrocortisone q.a.m. and return in 6 weeks for reevaluation of adrenal function at that time. If function is normal, we will anticipate discontinuing hydrocortisone therapy. 1.2. Plan to continue to check sodium throughout hospitalization, and the patient to do suitable sodium checks in an outpatient lab after discharge. We will continue to follow this issue. 2. Pituitary function. This is a macro adenoma. We will reevaluate the patient for pituitary dysfunction in 6 weeks postoperatively. 2.1. Adrenal function as previously indicated. If at 6-week followup HPA axis is confirmed dysfunctional, we will discontinue hydrocortisone therapy. 2.2. Thyroid. The patient is essentially euthyroid, so he will be re-evaluated 6 weeks postoperatively. However, no thyroid replacement is anticipated or required. 2.3. Growth hormone IgF1 level will also be reevaluated in 6 weeks. This is a sensitive axis. If low, we will return for growth hormone stimulation test with the view of beginning growth hormone replacement therapy if indicated. 2.4. Gonadal Function: The patient has a history of hypogonadism. After reevaluation at 6 weeks, his testosterone remains low. We will begin treatment with AndroGel 1% and titrate it to therapeutic level. 2.5. Prolactin level is normal. No dopamine agonist therapy is indicated. 2.6. Vasopressors: The patient denies any polyuria, polydipsia, or signs and symptoms of diabetes insipidus. No DDAVP therapy is indicated. 3. Follow up as perviously indicated and return in 6 weeks postoperatively. At that time, we will get an MRI and perform endocrine testing. See Dr. Styles or Dr. Guillaume or myself. He will return at 2 weeks postoperatively to be evaluated by ENT and Dr. Styles. The patient was given written postoperative instructions to include weekly phone review with me or Dr. Guillaume and the review of possible complications. We will continue to do frequent sodium checks in an outpatient lab and have the patient monitor for changes in blood pressure or blood sugar. Shruti Landa. Lb Guillaume M.D., Ph.D. / [id number] / [id number] / [id number] / [id number] Electronically signed by Lb Guillaume (Bill) 10-08-2005 05:57:15 AM documented i n this encounter Plan of Treatment +--------+---------+ + + + | Date | Type | Specialty | Care Team | Description | +--------+---------+ + + + | 08/15/ | Office | Cardiology | Zuleika Hernandez, | | | 2019 | Visit | | [address] | | | | | | [address] | | | | | | [place] | | | | | | [address] | | | | | | [phone] | | | | | | | | +--------+---------+ + + + documented as of this encounter Visit Diagnoses Not on filedocumented in this encounter"
--- OUTSIDE RECORDS SUMMARY | ~2019-07-14 | XMS | Encounter Summary ---
Demographics + + + | Address | [address] | | | [place] [address] | + + + | Home Phone [...] + + + | Author | [place] [facility] | + + + | Organization | [facility] | [...] Team Providers + +------+ + | Care Customer Records Division Supervisor Name | Role | Phone | [...] Description | +--------+--------+ + + + | 07/14/ | Refill | Neurosurgery at | Donnie, | Refill Request | | 2006 | | [facility] [address] | [place], | | | | | [place] Mailcode: CH8N | DNP,TOOL MAINTENANCE WORKER,[place] [address] | | | | | [facility] | [address] [place], | | | | | and [facility], | [place] [address] | | | | | [facility] | [phone] | | | | | Floor [place], [place] | | | | | | [address] | | | | | | [phone] | | | +--------+--------+ + + + [...] [address] | | | | | | [place], [place] | | | | | | [address] | | | | | | [phone] | | | | | | | | +--------+---------+ + + + documented as of this encounter Visit Diagnoses Not on filedocumented in this encounter"
--- OUTSIDE RECORDS SUMMARY | ~2019-07-14 | XMS | Encounter Summary ---
Demographics + + + | Address | [address] | | | [place] [address] | + + + | Home Phone [...] + + + | Author | [place] [facility] | + + + | Organization | [facility] | + + + | Address | Unknown | + + + | Phone | Unavailable | + + + Support + + +---------+ + | Name | Relationship | Address | Phone | + + +---------+ + | Alexandria Dixon | ECON | Unknown | | + + +---------+ + Care Team Providers + +------+ + | Care Horse Farm Manager Name | Role | Phone | [...] Surgery | Benign | Epic Dept | Car[place], | | | | | neoplasm of | | DNP,SCREENING TECH,[place] | | | | | pituitary | | [address] | | | | | gland and | | Ave | | | | | craniopharyn | | [place], [place] | | | | | geal duct | | [address] | | | | | (pouch) | | Phone: | | | | | ([facility]) | | [phone] | | | | | Procedures | | Fax: | | | | | [place] ESTAB | | [phone] | | | | | PATIENT | | | | | | | LEVEL 5 [place] | | | | | | | MRI BRAIN | | | | | | | COMBO 1 yr | | | | | | | f/up and MRI | | | | | | | (head) | | | +--------+--------+ + + + + Encounter Details +--------+---------+ + + + | Date | Type | Department | Care Team | Description | +--------+---------+ + + + | 05/07/ | Office | Neurosurgery at | Donnie, | Pituitary adenoma | | 2009 | Visit | [facility] [address] | [place], | ([facility]); Adrenal | | | | Ave Mailcode: CH8N | DNP,SCREENING TECH,[place] [address] | insufficiency ([facility]); | | | | [place] for [facility] | [address] [place], | 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and Healing, | [place] [address] | deficiency (HCC) | | | | [place] [address] | [phone] | | | | | [place], [place] | | | | | | [address] | | | | | | [phone] | | | +--------+---------+ + + + [...] + + + | Blood Pressure | 119/74 | 05/07/2010 1:55 PM | | | | | PDT | | + + + + + | Pulse | 56 | 05/07/2010 1:55 PM | | | | | PDT | | + + + + + | Temperature | - | - | | + + + + + | Respiratory Rate | 16 | 05/07/2010 1:55 PM | | | | | PDT | | + + + + + | Oxygen Saturation | - | - | | + + + + + | Inhaled Oxygen | - | - | | | Concentration | | | | + + + + + | Weight | 128.9 kg (284 lb 3.2 | 05/07/2010 1:55 PM | | | | oz) | PDT | | + + + + + | Height | - | - | | + + + + + | Body Mass Index | 43.21 | 06/22/2009 9:46 AM | | | | | PST | | + + + + + documented in this encounter Progress Notes Car[place] Fields, SANIYA,SCREENING TECH,[place] - 05/07/2010 2:01 PM PDTReason for visit. Amairani Tyler juanita [...] Dr. Christiano Styles. At this visit; Has just had CTR on right hand. Some post op headache, nausea and dizziness Some worsening joint and back pain. No temperature dysregulation No difficulty with sleep, memory concentration unchanged Sexual function OK No visual changes Mood stable. Periodic mild headaches Exact date of onset of symptoms is unknown Review of systems negative other than as stated above. Physical Exam: Blood pressure 119/74, pulse 56, resp. rate 16, weight 128.912 kg (284 lb 3.2 oz). General: A pleasant man [...] release right hand and will f.up in Dec with CTR on left hand. Back pain lumbar disc bulge by MRI and is pending [facility] treatment. Amairani did not take any extra hydrocortisone for CTR and did have some symptoms of AI the next day. We reviewed when to take extra HC and he is reminded to take and extra dose of hydrocortisone pre op and let anesthesia team know that he is adrenally insufficient and will need stress dose steroids. Otherwise he is doing well and has no symptoms of endoc rine hormone deficit. I answered pt and mother's questions to their satisfaction. Plan 1. Adrenals. Pt will continue 20mg hydrocortisone daily. He will increase dose with surger y. 2. Testosterone level pending. Will change to Testim if level remains low. 3. Growth hormone. IGF-1 pending. No change in dose. Patient is irregular with dosing 4.Prolactin level pending. No DA is anticipated. 5. DI.Appears controlled. BMP pending. No change in DDAVp anticiapted. 5. MRI 04/21with CONTINUITY WRITER, RM labs I spent 40 mins in face to face evaluation of this patient of which over 50% was spent in skyler olivia and coordination of care CARRINGTON FIELDS NP [facility] [address] [facility] [address] documented in this encounter Plan of Treatment +--------+---------+ + + + | Date | Type | Specialty | Care Team | Description | +--------+---------+ + + + | 08/15/ | Office | Cardiology | Zuleika Hernandez, | | | 2019 | Visit | | [address] | | | | | | [address] | | | | | | [place], [place] | | | | | | [address] | | | | | | [phone] | | | | | | | | +--------+---------+ + + + documented as of this encounter Procedures + +--------+ + + + | Procedure Name | Priori | Date/Time | Associated Diagnosis | Comments | | | ty | | | | + +--------+ + + + | FREE T4 | Routin | 05/07/2010 | Pituitary adenoma | Results for this | | | e | 3:01 PM | (HCC) Adrenal | procedure are in the | | | | PDT | insufficiency (HCC) | results section. | | | | | 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| | deficiency (HCC) | | + +--------+ + + + | BASIC METABOLIC SET | Routin | 05/07/2010 | Pituitary adenoma | Results for this | | (NA, K, CL, TCO2, | e | 3:00 PM | (HCC) Adrenal | procedure are in the | | BUN, CR, GLU, CA) | | PDT | insufficiency (HCC) | results section. | | | | | 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| | deficiency (HCC) | | + +--------+ + + + | INSULIN GROWTH | Routin | 05/07/2010 | Pituitary adenoma | Results for this | | FACTOR-1, SERUM | e | 3:00 PM | (HCC) Adrenal | procedure are in the | | | | PDT | insufficiency (HCC) | results section. | | | | | 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| | deficiency (HCC) | | + +--------+ + + + | PROLACTIN | Routin | 05/07/2010 | Pituitary adenoma | Results for this | | | e | 3:00 PM | (HCC) Adrenal | procedure are in the | | | | PDT | insufficiency (HCC) | results section. | | | | | 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| | deficiency (HCC) | | + +--------+ + + + | TSH | Routin | 05/07/2010 | Pituitary adenoma | Results for this | | | e | 3:00 PM | (HCC) Adrenal | procedure are in the | | | | PDT | insufficiency (HCC) | results section. | | | | | 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| | deficiency (HCC) | | + +--------+ + + + | LUTEINIZING HORMONE, | Routin | 05/07/2010 | Pituitary adenoma | Results for this | | SERUM | e | 3:00 PM | (HCC) Adrenal | procedure are in the | | | | PDT | insufficiency (HCC) | results section. | | | | | 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| | deficiency (HCC) | | + +--------+ + + + | FSH, SERUM | Routin | 05/07/2010 | Pituitary adenoma | Results for this | | | e | 3:00 PM | (HCC) Adrenal | procedure are in the | | | | PDT | insufficiency (HCC) | results section. | | | | | 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| | deficiency (HCC) | | + +--------+ + + + | TESTOSTERONE, SERUM | Routin | 05/07/2010 | Pituitary adenoma | Results for this | | | e | 2:59 PM | (HCC) Adrenal | procedure are in the | | | | PDT | insufficiency (HCC) | results section. | | | | | 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| | deficiency (HCC) | | + +--------+ + + + documented in this encounter Results FREE T4, SERUM (05/07/2010 3:01 PM PDT) + +---------+ + + + [...] Way Lab) [facility] | REGIONAL | | [place] [address] [facility] | LABORATORY | | [place] [address] | | + + + + + + + + | Performing | Address | City/State/Zipcode | Phone Number | | Organization | | | | + + + + + | [facility] | [address] [facility] [address] | [place] [address] | | | LABORATORY | | | | + + + + + TSH (05/07/2010 3:00 PM PDT) + +-------+ + + + | Component | Value | Ref Range | Performed | Pathologist | | | | | At | Signature | + +-------+ + + + | TSH | 0.37 | 0.34 - 5.60 | [facility] | | | | | uIU/ml | REGIONAL | | | | | | LABORATORY | | + +-------+ + + + + + | Specimen | + + | Blood - Blood | + + + + + | Narrative | Performed At | + + + | [facility] [address] [facility]) | [facility] | | [facility] [address] | REGIONAL | | [place] [address] | LABORATORY | + + + + + + + + | Performing | Address | City/State/Zipcode | Phone Number | | Organization | | | | + + + + + | [facility] | [address] | [place] [address] | | | LABORATORY | | | | + + + + + PROLACTIN, SERUM (05/07/2010 3:00 PM PDT) + +-------+ + + + [...] [facility] | [place] | | [facility] [place] [address] | REGIONAL | | [place] [address] | LABORATORY | + + + + + + + + | Performing | Address | City/State/Zipcode | Phone Number | | Organization | | | | + + + + + | [facility] | [address] | [place] [address] | | | LABORATORY | | | | + + + + + LUTEINIZING HORMONE, SERUM (05/07/2010 3:00 PM PDT) + +-------+ + + + | Component | Value | Ref Range | Performed | Pathologist | | | | | At | Signature | + +-------+ + + + | LUTEINIZING | 1 | <11 mIU/mL | [facility] | | | | | | REGIONAL | | | HORMONE,SER | | | LABORATORY | | | UM | | | | | + +-------+ + + + + + | Specimen | + + | Blood - Blood | + + + + + | Narrative | Performed At | + + + | [facility] ([address] [facility]) [facility] | [place] | | [place] [address] [facility] | REGIONAL | | [place] [address] | LABORATORY | + + + + + + + + | Performing | Address | City/State/Zipcode | Phone Number | | Organization | | | | + + + + + | [facility] | [address] | [place] [address] | | | LABORATORY | | | | + + + + + INSULIN GROWTH FACTOR-1, SERUM (05/07/2010 3:00 PM PDT) + +-------+ + + + | Component | Value | Ref Range | Performed | Pathologist | | | | | At | Signature | + +-------+ + + + | IGF-1 | 147 | 115 - 307 ng/mL | [facility] | | | | | | REGIONAL | | | | | | LABORATORY | | + +-------+ + + + + + | Specimen | + + | Blood - Blood | + + + + + | Narrative | Performed At | + + + | [facility] [facility]) [facility] | [place] | | [place] [address] | REGIONAL | | [place] [address] | LABORATORY | + + + + + + + + | Performing | Address | City/State/Zipcode | Phone Number | | Organization | | | | + + + + + | [facility] | [address] | [place] [address] | | | LABORATORY | | | | + + + + + FSH, SERUM (05/07/2010 3:00 PM PDT) + +-------+ + + + | Component | Value | Ref Range | Performed | Pathologist | | | | | At | Signature | + +-------+ + + + | FSH,SERUM | 2 | <19 mIU/mL | [facility] | | | | | | REGIONAL | | | | | | LABORATORY | | + +-------+ + + + + + | Specimen | + + | Blood - Blood | + + + + + | Narrative | Performed At | + + + | [facility] ([address] [facility]) [facility] | [place] | | [place] [address] [address] [facility] | [facility] | | [place] [address] | LABORATORY | + + + + + + + + | Performing | Address | City/State/Zipcode | Phone Number | | Organization | | | | + + + + + | [facility] | [address] | [place] [address] | | | LABORATORY | | | | + + + + + BASIC METABOLIC SET (NA, K, CL, TCO2, BUN, CR, GLU, CA) (05/07/2010 3:00 PM PDT) + + + + + + | Component | Value | Ref Range | Performed | Pathologist | | | | | At | Signature | + + + + + + | GLUCOSE, | 67 | 60 - 99 mg/dL | [facility] [...] + + + + | CREATININE | 0.72 | 0.70 - 1.30 | [facility] | [...] + + + + | POTASSIUM, | 3.6 [...] | | | DEPARTMENT | | | PANAMANIAN | | | OF | | | [...] + + + + | [facility] | [address] | [place] [address] | | | PATHOLOGY | [address] | | | + + + + + TESTOSTERONE, SERUM (05/07/2010 2:59 PM PDT) + +-------+ + + + | Component | Value | Ref Range | Performed | Pathologist | | | | | At | Signature | + +-------+ + + + | TESTOSTERON | 496 | 175 - 781 ng/dl | [facility] [...] Way Lab) [facility] | [place] | | [place] [address] | REGIONAL | | [place] [address] | LABORATORY | + + + + + + + + | Performing | Address | City/State/Zipcode | Phone Number | | Organization | | | | + + + + + | [facility] | [address] | [place] [address] | | | LABORATORY | | | | + + + + + documented in this encounter Visit Diagnoses + + | Diagnosis | + + | Pituitary adenoma (HCC) Benign neoplasm of pituitary gland and craniopharyngeal duct | | (pouch) | + + | Adrenal insufficiency (HCC) Glucocorticoid deficiency | + + | Growth hormone deficiency (HCC) Pituitary dwarfism | + + documented in this encounter"
--- OUTSIDE RECORDS SUMMARY | ~2019-07-14 | XMS | Encounter Summary ---
Demographics + + + | Address | [address] | | | [place] [address] | + + + | Home Phone | | + + + | Preferred Language | Unknown | + + + | Marital Status | Single | + + + | Mormon Affiliation | NON | + + + | Race | or | + + + | Ethnic Group | Not or | + + + Author + + + | Author | [place] [facility] | + + + | Organization | [facility] [...] Providers + +------+ + | Care Manager Ui Name | Role | Phone | + [...] + + + | Closed | | Endocrinology | | Non-[facility] | Yvette, | | | | , Diabetes & | | Epic Dept | MD Nicolas | | | | Metabolism | | | [address] | | | | | | | [address] | | | | | | | [place], | | | | | | | [place] | | | | | | | [address] | | | | | | | Phone: | | | | | | | [phone] | | | | | | | Fax: | | | | | | | [phone] | +--------+--------+ + + + + Encounter Details +--------+---------+ + + + | Date | Type | Department | Care Team | Description | +--------+---------+ + + + | 07/28/ | Office | Endocrinology | Nicolas Crawford, | 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 | Visit | Pituitary Disease | [address] | Pituitary Gland and | | | | Clinic [address] | [address] | Craniopharyngeal | | | | Ave Mailcode: CH8A | [place], [place] | Duct (Pouch) ([facility]) | | | | [facility] for [facility] | [address] | (Primary Dx); 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and Healing, | [phone] | Hormone Deficiency | | | | Building | | (HCC); | | | | Floor [place], [place] | | Hypogonadotropic | | | | [address] | | Hypogonadism ([facility]); | | | | [phone] | | Diabetes Insipidus | | | | | | Secondary to | | | | | | Vasopressin | | | | | | Deficiency ([facility]); | | | | | | Adrenal Cortex | | | | | | Hypofunction ([facility]) | +--------+---------+ + + + [...] + + + | Blood Pressure | 128/74 | 07/28/2006 1:31 PM | | | | | PST | | + + + + + | Pulse | 89 | 07/28/2006 1:31 PM | | | | | PST [...] Weight | 123.4 kg (272 lb) | 07/28/2006 1:31 PM | | | | | PST | | + + + + + | Height | - | - | | + + + + + | Body Mass Index | 41.97 | 04/03/2006 2:01 PM | | | | | PDT | | + + + + + documented in this encounter Progress Notes Nicolas Crawford - 08/06/2006 10:17 AM PST Addended by: NICOLAS CRAWFORD MD on: 08/06/2006 10 :17:32 AM Modules accepted: Orders Nicolas Camargo - 08/06 10:17 AM PST IGF1 not at goal Increase GH to 0.4 every day. Recheck in 2 mo. 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 1 Hypothyroidism-he is taking Levothyroxine 175 per day in the morning, but I advised to take him on an empty stomach, before all other meds. 2 Hypogonadism -Lately he is more fatigued again, but he had an intreruption in his Androge l prescription, so his last testosterone was very low (outside lab).[facility], now that he restarted to take it 3 days ago. 3Headache, Fatigue He still has poor wound healing,but headache is better after taking mon ths of antibiotics 4 His Di is doing fine on his dose Girlfriend had mono, so Ia dvised him to see PCp, fatigue couls also be multifactorial 5 HTN Started on BP meds and now it's controlled. 6 Adrenal insuficiency-I reccomended to take Hydrocortisone 15 mg in am and 5 mg in pm, bec ause he is tired more in the afternoon, and most probably 15 mg HC is not enough per his guzman ght.Prescription given 7 GH def-recheck IGF1 today and decide further dose I answered all questions to apparent satisfaction of pt and his mother and patient verbaliz ed understanding. Reviewed all symptomps, treatment and explained his panhypopituitarism axis by axis Appt in October set up I spent 40 minutes in the care of this patient with more than 50% in coordination of care a nd counseling. documented in this encoun ter Plan of Treatment +--------+---------+ + + + | Date | Type | Specialty | Care Team | Description | +--------+---------+ + + + | 08/15/ | Office | Cardiology | Zuleika Hernandez, | | | 2019 | Visit | | [address] | | | | | | [address] | | | | | | [place], [place] | | | | | | [address] | | | | | | [phone] | | | | | | | | +--------+---------+ + + + documented as of this encounter Results IGF-1 (07/28/2006 2:22 PM [...] | + + + + + | [facility] | [address] | [place] [address] | | | LABORATORY | | | | + + + + + documented in this encounter Visit Diagnoses + + | Diagnosis | + + | Benign neoplasm of pituitary gland and craniopharyngeal duct (pouch) (HCC) - Primary | | Benign neoplasm of pituitary gland and craniopharyngeal duct (pouch) | + + | Growth hormone deficiency (HCC) Pituitary dwarfism | + + | Hypogonadotropic hypogonadism (HCC) Other anterior pituitary disorders | + + | 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
--- OUTSIDE RECORDS SUMMARY | ~2019-07-14 | XMS | Encounter Summary ---
Demographics + + + | Address | [address] | | | [place] [address] | + + + | Home Phone [...] + + + | Author | [facility] | | | and [place] | + + + | Organization | [facility] | | | and [place] [...] Team Providers + +------+ + | Care Hydraulics Engineer Name | Role | Phone | [...] | | | Sleep | [address] | [place], | | | | | apnea, | [place], [place] | [place] [address] | | | | | unspecified | [address] | Phone: | | | | | Obesity, | Phone: | [phone] | | | | | unspecified | [phone] | Fax: | | | | | Procedures | Fax: | [phone] | | | | | [place] | [phone] | | | | | | ESOPHAGOGAST | | | | | | | RODUODENOSCO | | | | | | | PY TRANSORAL | | | | | | | DIAGNOSTIC | | | | | | | [place] EDG | | | | | | | TRANSORAL | | | | | | | BIOPSY | | | | | | | SINGLE/MULTI | | | | | | | PLE [place] | | | | | | | [...] + + | 07/23/ | Telephone | [facility] | Jorge Lopez MD | Appointment | | 2014 | | GASTROENTEROLOGY | [address] [facility] | | | | | [address] | [place], [place] | | | | | [address] [place], [place] | [address] | | | | | [address] | [phone] | | | | | [phone] | | | +--------+ + + + [...] THOMAS | | | | | | [id number] | | | | | | | [...]
--- OUTSIDE RECORDS SUMMARY | ~2019-07-14 | XMS | Encounter Summary ---
Demographics + + + | Address | [address] | | | [place] [address] | + + + | Home Phone [...] + + + | Author | [place] [facility] | + + + | Organization | [facility] [...] Team Providers + +------+ + | Care Sponge Maker Name | Role | Phone | [...] Description | +--------+--------+ + + + | 07/08/ | Refill | Neurosurgery at | Donnie, | Refill Request | | 2009 | | [facility] [address] | [place], | | | | | [place] Mailcode: CH8N | DNP,BACKHAUL DRIVER,[place] [address] | | | | | [facility] | [address] [place], | | | | | and [facility], | [place] [address] | | | | | Building [address] | [phone] | | | | | [place], [place] | | | | | | [address] | | | | | | [phone] | | | +--------+--------+ + + + [...] Rd | | | | | | [place], [place] | | | | | | [address] | | | | | | [phone] | | | | | | | | +--------+---------+ + + + documented as of this encounter Visit Diagnoses Not on filedocumented in this encounter"
--- OUTSIDE RECORDS SUMMARY | ~2019-07-14 | XMS | Encounter Summary ---
Demographics + + + | Address | [address] | | | [place] [address] | [...] + + + | Author | [place] [facility] [employer] [facility] | + + + | Organization | [facility] | + + + | Address | Unknown | + + + | Phone | Unavailable | + + + Support + + +---------+ + | Name | Relationship | Address | Phone | + + +---------+ + | Alexandria Dixon | ECON | Unknown | | + + +---------+ + Care Team Providers + +------+ + | Care Cattle Knocker Name | Role | Phone | + +------+ + | No Pcp Per Patient | PCP | Unavailable | + +------+ + Encounter Details +--------+ + + + + | Date | Type | Department | Care Team | Description | +--------+ + + + + | 09/16/ | Documentati | Anesthesiology | Unknown . | | | 2005 | on | [address] | | | | | | [place], | | | | | | [place] [address] | | | +--------+ + + + [...] | | 2019 | Visit | | [address] | | | | | | [address] | | | | | | [place], [place] | | | | | | [address] | | | | | | [phone] | | | | | | | [...] + + documented in this encounter Results ANESTHESIA/SEDATION (09/16/2005 10:35 AM PST) + + + | Narrative | Performed At | + + + | Ordered by an unspecified provider. | | + + + + + | Transcriptions | + + | 09/16/2005 10:35 AM [facility] Anesthesia PostOp Report | | | | Patient: FAROOQ LEMA [facility] Rec: [id number] Sex M Bdate: 1980 | | Date/Time Data | | Entered Into [facility] | | Anesth PostOp | | Surgery Date [id number] 09/16/05 10:35 | | Anesthesiologist QUYNH PEREZ 09/16/05 10:35 | | Resident Anesthesiolog ELENI HOOPER 09/16/05 10:35 | | | + + documented in this encounter Visit Diagnoses Not on filedocumented in this encounter"
--- OUTSIDE RECORDS SUMMARY | ~2019-07-14 | XMS | Encounter Summary ---
Demographics + + + | Address | [address] | | | [place] [address] | + + + | Home Phone [...] + + | Author | [employer] [place] [employer] [facility] | + + + | Organization | Pending Sale To [facility] [...] Team Providers + +------+ + | Care Resource Program Teacher Name | Role | Phone | [...] Record | | 2017 | | at [facility] [address] | | Review (Car GEN | | | | Nura Blackwell Mailcode: | | checklist) | | | | [address] | | | | | | Health and Healing, | | | | | | [facility] | | | | | | floor [place], [place] | | | | | | [address] | | | | | | [phone] | | | +--------+ + + + [...] this note might be different from the [facility] qian. General Cardiology New Patient Record Check List Procedure Where/Date Date requested Report received? Y/N, Where? Imaging received? CD/ IMPAX/Not Available Comments Referring Provider - notes Ashish Meyer PA-C Internal Referral Last EKG with original tracings Last Echo with images and report [facility]-05/22/16 [employer] [employer]-10/03/14 [facility]-02/20/11 08/29/16 08/29/16 08/29/16 [facility] Care EW Care EW Care EW [facility] Impax CD sent to [facility] 10/24 CD sent to [facility] 10/24 Last Stress Test with images and report felipe-10/03/14 (Nuc Med) 08/29/16 Care EW CD sent to [facility] 10/24 Last Cardiac Catheterization - images and report Lyn-07/02/16 [facility]-11/30/14 [facility]-02/19/11 08/29/16 08/29/16 08/29/16 Care EW Care EW Care EW CD sent to film library 10/24 CD sent to film library 10/24 CD sent to film library 10/24 Last Holter or Event monitor - report none Labs (BMP, Lipids, TSH, Hemoglobin A1C in last 6 months) [facility] 08/29/16 Y es, attached below N/A Last PPM/ICD Interrogation report none Last Cardiac MRI report/images if avail none Cardiac CTA - report and images if available [facility] [place] Patient Preferred Lab Additional Comments: 09/01/16- [facility] states they will be mailing whatever [...] [address] | | | | | | [place], [place] | | | | | | [address] | | | | | | [phone] | | | | | | | | +--------+---------+ + + + documented as of this encounter Visit Diagnoses Not on filedocumented in this encounter"
--- OUTSIDE RECORDS SUMMARY | ~2019-07-14 | XMS | Encounter Summary ---
Demographics + + + | Address | [address] | | | [place] [address] | + + + | Home Phone [...] + + + | Author | [place] [employer] [facility] | + + + | Organization | [facility] [...] Team Providers + +------+ + | Care House Mover Supervisor Name | Role | Phone | [...] 01/27/ | Refill | Neurosurgery at | Donnie, | Refill Request | | 2006 | | [facility] [address] | [place], | | | | | [place] Mailcode: CH8N | DNP,LOAN SERVICE OFFICER,[place] [address] | | | | | [facility] | Nura Blackwell [place], | | | | | and [facility], | [place] [address] | | | | | [facility] | [phone] | | | | | Floor [place], [place] | | | | | | [address] | | | | | | [phone] | | | +--------+--------+ + + + [...] [address] | | | | | | [place], [place] | | | | | | [address] | | | | | | [phone] | | | | | | | | +--------+---------+ + + + documented as of this encounter Visit Diagnoses Not on filedocumented in this encounter"
--- OUTSIDE RECORDS SUMMARY | ~2019-07-14 | XMS | Encounter Summary ---
Demographics + + + | Address | [address] | | | [place] [address] | + + + | Home Phone [...] + + + | Author | [place] [employer] [facility] | + + + | Organization | [facility] | [...] Providers + +------+ + | Care Glass Fitter Name | Role | Phone | + +------+ + | Bernardo Pan | PCP | | + +------+ + Encounter Details +--------+ + + + + | Date | Type | Department | Care Team | Description | +--------+ + + + + | 09/01/ | Documentati | Neurosurgery at | [place]nie, | | | 2017 | on | [facility] [address] | Cathie | | | | | [place] Mailcode: [id number] | DNP,PLANT ELECTRICIAN,[place] [address] | | | | | [facility] | [address] [place], | | | | | and Healing, | [place] [address] | | | | | [facility] | [phone] | | | | | Floor [place], [place] | | | | | | [address] | | | | | | [phone] | | | +--------+ + + + [...] Rd | | | | | | [place], [place] | | | | | | [address] | | | | | | [phone] | | | | | | | | +--------+---------+ + + + documented as of this encounter Visit Diagnoses Not on filedocumented in this encounter"
--- OUTSIDE RECORDS SUMMARY | ~2019-07-14 | XMS | Encounter Summary ---
Demographics + + + | Address | [address] | | | [place] [address] | + + + | Home Phone [...] + + + | Author | [place] [employer] [facility] | + + + | Organization | [facility] | + + + | Address | Unknown | + + + | Phone | Unavailable | + + + Support + + +---------+ + | Name | Relationship | Address | Phone | + + +---------+ + | Alexandria Dixon | ECON | Unknown | | + + +---------+ + Care Team Providers + +------+ + | Care Stock Checker Name | Role | Phone | + [...] Refill Request | | 2008 | | [facility] [address] | [place], | | | | | [place] Mailcode: CH8N | DNP,SOLE BLACKER,[place] [address] | | | | | [facility] | Nura Blackwell [place], | | | | | and [facility], | [place] [address] | | | | | Building [address] | [phone] | | | | | [place], [place] | | | | | | [address] | | | | | | [phone] | | | +--------+--------+ + + + [...] | | | | | | [place], [place] | | | | | | [address] | | | | | | [phone] | | | | | | | | +--------+---------+ + + + documented as of this encounter Visit Diagnoses Not on filedocumented in this encounter"
--- OUTSIDE RECORDS SUMMARY | ~2019-07-14 | XMS | Encounter Summary ---
Demographics + + + | Address | [address] | | | [place] [address] | + + + | Home Phone [...] + + + | Author | [place] [employer] [facility] | + + + | Organization | [facility] | + + + | Address | Unknown | + + + | Phone | Unavailable | + + + Support + + +---------+ + | Name | Relationship | Address | Phone | + + +---------+ + | Alexandria Dixon | ECON | Unknown | | + + +---------+ + Care Team Providers + +------+ + | [facility] Name | Role | Phone | + +------+ + | Jinny Bergeron MD | PCP | | + +------+ + Reason for Visit + + + | Reason | Comments | + + + | Pre-op evaluation | | + + + Encounter Details +--------+---------+ + + + | Date | Type | Department | Care Team | Description | +--------+---------+ + + + | 07/07/ | Office | Preoperative | O Stephenie Kelly | Preop examination | | 2016 | Visit | Medicine Clinic at | Y, [address] [facility] | (Primary Dx); Mitral | | | | MPV 4th Floor Day | [address] | leaflet | | | | Stay [address] | [place], [place] | abnormality; | | | | [address] | [address] | Diabetes insipidus | | | | Mailcode: [id number] | [phone] | (FORMERLY [facility]); Adrenal | | | | [facility] | | insufficiency (FORMERLY [facility]); | | | | [address] [place], [place] | | Pituitary adenoma | | | | [address] | | (FORMERLY [facility]); | | | | [phone] | | Panhypopituitarism | | | | | | (FORMERLY [facility]); Coronary | | | | | | artery disease, | | | | | | angina presence | | | | | | unspecified, | | | | | | unspecified vessel | | | | | | or lesion type, | | | | | | unspecified whether | | | | | | sel[place]ik or | | | | | | transplanted heart | +--------+---------+ + + + Anesthesia Record + + + + + | Procedure Name | Responsible | Anesthesia Start | Anesthesia Stop Time | | | Anesthesiologist | Time | | + + + + + | RESECTION OF MITRAL | Alexandria Alford MD | 07/08/16 0730 | 07/08/16 1010 | | VALVE MASS; [...] | Meds | +------+ + + + No medications | on file. | + + + + + | No agents on file. | + + + + | No [...] Internal | 07/08/16 0840 by | 07/08/16 1125 by | | l Line | Jugular; 07/08/16; 1125; Per | | Melida Negrete RN | | - | order (Removed by Gio Zuniga, | | | | Double | RN ) | | | | Lumen | | | | +--------+ + + + | ETT | Endotracheal Tube; Oral; ETCO2 | 07/08/16 0840 by | 07/08/16 1919 by | | | color change, Breath Sounds | | Discontinued After | | | bilaterally, Continous | | Discharge | | | Capnography; Cuffed; 07/08/16; | | | | | 1918 | | | +--------+ + + + [...] RN | Melida Lepe RN | | Cathjone | 0753; Temp-probe Davis; 16 Fr.; | | | | er [...] + + + | Blood Pressure | 146/91 | 07/07/2016 2:56 PM | | | | | PST | | + + + + + | Pulse | 59 | 07/07/2016 2:56 PM | | | | | PST | | + + + + + | Temperature | 36.4 C (97.6 F) | 07/07/2016 2:56 PM | | | | | PST | | + + + + + | Respiratory Rate | 14 | 07/07/2016 2:56 PM | | | | | PST | | + + + + + | Oxygen Saturation | 99% | 07/07/2016 2:56 PM | | | | | PST | | + + + + + | Inhaled Oxygen | - | - | | | Concentration | | | | + + + + + | Weight | 121.6 kg (268 lb) | 07/07/2016 2:56 PM | neck 43 cm | | | | PST | | + + + + + | Height | 172.7 cm (5' 8") | 07/07/2016 2:56 PM | | | | | PST | | + + + + + | Body Mass Index | 40.75 | 07/07/2016 2:56 PM | | | | | PST | | + + + + + documented in this encounter Patient Instructions Patient Instructions O Stephenie Kelly MD - 07/07/2016 3:00 PM PST PREOPERATIVE INSTRUCTIONS Please stop at radiology on the 4th floor of [facility] for a pre-op chest xray be fore you head home this afternoon On the day of surgery, bring your own CPAP machine with you to use in the hospital after casey rgery. Empty stomach before surgery On the day BEFORE your surgery, drink plenty of fluids and stay well hydrated NOTHING to eat or drink after midnight the night before surgery. This includes water, coffee, candy, mints, gum. Medications Instructions TAKE the following medications with a sip of water on the morning of surgery: DDAVP Hydrocortisone Levothyroxine Metoprolol norco if needed for pain Do NOT take the following medications on the morning of surgery: Lisinopril Metformin Vitamins and minerals Other medications not specifically mentioned are at your discretion as to taking or not taking on the morning of surgery. amLODIPine 5 mg oral tablet, Take 1 tablet by mouth once daily at bedtime. atorvastatin 40 mg oral tablet, Take 40 mg by mouth once daily in the evening. cholecalciferol, vitamin D3, 4,000 unit oral tablet, Take 6,000 Units by mouth once daily. DEPO-TESTOSTERONE 200 mg/mL intramuscular oil, Inject 200 mg under the skin (SUBC) every fo urteen days. desmopressin (DDAVP) 0.2 mg oral tablet, Take 1 1/2 tablets in the morning and 2 tablets in the evening. HYDROcodone-acetaminophen 10-325 mg oral tablet, Take 1 tablet by mouth every six hours as needed for moderate pain. hydrocortisone 5 mg oral tablet, Take 5 tablets by mouth once daily. (Patient taking differ ently: Take by mouth once daily. 20mg QAM, 5mg QPM) hydrocortisone sodium succinate, PF, (HYDROCORTISONE SODIUM SUCCINATE) 100 mg/2 mL injectio n ellis soln, Inject 1ml for symptoms of adrenal crisis. Low blood pressure, vomiting, high heart rate. levothyroxine 125 mcg oral tablet, Take 1 tablet by mouth before breakfast. lisinopril 40 mg oral tablet, Take 40 mg by mouth once daily. metFORMIN 500 mg oral tablet, 2 tabs at breakfast and one tab at dinner dialy metoprolol tartrate 50 mg oral tablet, Take 50 mg by mouth two times daily. phentermine 37.5 mg oral tablet, Take 37.5 mg by mouth once daily in the morning. Administe r before breakfast. Prasugrel (EFFIENT) 10 mg Oral Tablet, Take 10 mg by mouth once daily. promethazine 25 mg oral tablet, Take 1 tablet by mouth four times daily as needed for nause a/vomiting. Somatropin (NUTROPIN AQ NUSPIN) 10 mg/2 mL (5 mg/mL) subcutaneous cartridge, Inject 0.8 mg under the skin (SUBC) once daily. Unless otherwise directed by your surgeon, do not take any vitamin E or non-steroidal an ti-inflammatory (NSAIDs i.e. Advil, Aleve, Ibuprofen) or herbal supplements 7 days prior to your surgery. These drugs may interfere with normal blood clotting and may cause excessive b leeding and bruising during or after the surgery. If you need a pain medication for general purposes, use Tylenol as directed. OK to take it even on the morning of surgery, if needed. If you are in doubt about any medications that you are taking, please contact our office . Special Reminders for Cardiothoracic Surgery Patients Nasal swab to screen for staph bacteria. If the swab obtained during your visit shows e vidence of staph bacteria we will contact your surgeon. You will use the nasal ointment the y prescribed regardless. [facility] wipe packet and instructions on proper skin cleaning Please be sure to follow the se parate instructions regarding proper skin preparation before surgery. Other Important Guidelines ? Do not shave the surgical area Do not smoke, drink alcohol or use recreational drugs for 24 hours before your surgery Watch for any change in your health condition. Let your surgeon know right away if you do not feel well. ? Do not wear makeup, perfume, lotions, deodorant, powder or hairspray. Do not wear any jewelry to the hospital. Wear loose, comfortable clothing. Leave all your valuables at home. Allow enough travel time so you re not late for your check in for surgery. Please remember to brush your teeth the night before and the morning of your procedure. Preventing post op complications while you are in the hospital Use an incentive spirometer or peep breathe to keep your lungs working properly an d to help prevent respiratory complications. It helps you take long, deep breaths. Use it at least once every hour while you are awake. Leg and feet exercises will maintain good circulation and help prevent blood clots in yo ur legs. Sometimes your doctor will order sequential air compression stockings. Compressed air helps the circulation in your legs. Walking and moving will help stimulate normal circulation and deep breathing. After you r surgery, your nurse may ask you to sit, stand or walk. Surgery check-in location: Admitting - [facility], ninth floor lob Surgery Check in Time: The Preoperative Medicine Clinic is not in the position to give you accurate information regarding surgical check in time. We refer you back to your surgical office regarding this important information. Going Home Your surgical team will decide when you are medically ready to go home. If you stayed in the hospital after surgery, please arrange for your ride to come for yo u around 9AM on the day your doctor says you can go home. If you have questions or concerns after you go home, call your doctor s office. If it is after office hours, call the [facility] electrocardiograph operator at [phone] and ask them to page him or h er. documented in this encounter Progress Notes Kanwal Rebolledo MA - 07/07/2016 3:15 PM PST Venipuncture performed in clinic, blood sample obtained from Right hand site Two patient identifiers performed. Nasal swab specimen obtained from both the left and righ t nares per nasal swab collection instructions. Swab placed in culture tube; tube labeled an d sent to the lab. Stephenie Hamilton MD - 07/07/2016 3:00 PM PST PREOPERATIVE CONSULT NOTE Author: Stephenie Yu MD, FACP Referring Physician: Koffi Aguilar MD Primary Care Provider: Jinny Bergeron MD Reason for Consult: Preoperative evaluation and risk assessment Proposed Procedure/Date: RESECTION OF MITRAL VALVE MASS, POSSIBLE MITRAL VALVE REPLACEMENT, CORONARY ARTERY BYPASS GRAFTING; 07/08--tomorrow HISTORY OF PRESENT ILLNESS: Amairani Ulloa is a 36 y.o. male here for preoperative evaluat ion of medical problems in anticipation of the above procedure. 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 The decision has been made to proceed wi th the above surgery. Given c/o chest pain, cath was repeated pre-op--done last week at [facility] (in [place]), notable for patent LCx stent and severe 2 vessel disease with LAD d isease and chronically occluded RCA. Today, he reports that his health in general is "pretty good". He is busy chasing 3 kids, though confirms exertional dyspnea and chest pain. His medical history is significant for h is CAD as noted above. He remains on BB and statin as well as prasugrel (stopped since 06/11). He has a h/o pituitary adenoma, resected in 2005. He is followed at [facility] by Dr. Fields. He has subsequent panhypopituitarism, including remaining on hydrocortisone for adrenal insu fficiency and DDAVP for diabetes insipidus. At last visit, noted to be doing well. Since then, has done well, though took 2 extra doses hydrocortisone for headaches and diaphoresis last week. Urine output stable, no nocturia. He has DM on oral agents, A1C dropped from 7.7 in November to 6.8 more recently with intention al WT loss. Has HTN on therapy. Has MALLIKA on CPAP. Denies a history of adverse reaction to anesthesia. ROS: Pulmonary: no cough no rhinorrhea no sputum no URI shortness of breath with exertion no whe ezing Pt. Has no asthma no COPD Dx of sleep apnea Uses BiPap/CPAP Cardiovascular: Functional Capacity: Moderate + dyspnea on exertion and chest pressure - palpitations CAD Cad Sx: cardiac stents past MN no CHF hypertension well controlled valvu lar problems/murmurs (mitral valve mass) GI/Hepatic: no GERD No liver disease : No dysuria no renal failure Endo: Diabetes: type 2, well controlled oral hypoglymics Other endo: adrenal disease Pitui tary: diabetes insipidus and hypopituitarism Thyroid:+ hypothyroid Neurological: Sign/Sx headaches no seizures HX CORTICOSTEROID Current psychiatric problem a nxiety no dementia pain Chronic pain > 6 months Current Pain Level: Current pain level: 4 MS: Chronic low back pain, no chronic neck pain/stiffness arthritis Type: osteoarthritis Heme/Onc: Pt. has: no active bleeding no Bleeding diathesis / thrombotic bleeding Previous Transfusions: no transfusion hx Hx: Skin: No open wounds or sores Hx of MRSA/VRE/Active skin infection (arms 3 years ago) Current medications reviewed / updated Current Outpatient Prescriptions Medication Sig amLODIPine 5 mg oral tablet Take 1 tablet by mouth once daily at bedtime. atorvastatin 40 mg oral tablet Take 40 mg by mouth once daily in the evening. cholecalciferol, vitamin D3, 4,000 unit oral tablet Take 6,000 Units by mouth once broderick y. DEPO-TESTOSTERONE 200 mg/mL intramuscular oil Inject 200 mg under the skin (SUBC) every fourteen days. desmopressin (DDAVP) 0.2 mg oral tablet Take 1 1/2 tablets in the morning and 2 tablets in the evening. HYDROcodone-acetaminophen 10-325 mg oral tablet Take 1 tablet by mouth every six hours as needed for moderate pain. hydrocortisone 5 mg oral tablet Take 5 tablets by mouth once daily. (Patient taking dif ferently: Take by mouth once daily. 20mg QAM, 5mg QPM) hydrocortisone sodium succinate, PF, (HYDROCORTISONE SODIUM SUCCINATE) 100 mg/2 mL inje ction recon soln Inject 1ml for symptoms of adrenal crisis. Low blood pressure, vomiting, hi gh heart rate. levothyroxine 125 mcg oral tablet Take 1 tablet by mouth before breakfast. lisinopril 40 mg oral tablet Take 40 mg by mouth once daily. metFORMIN 500 mg oral tablet 2 tabs at breakfast and one tab at dinner dialy metoprolol tartrate 50 mg oral tablet Take 50 mg by mouth two times daily. phentermine 37.5 mg oral tablet Take 37.5 mg by mouth once daily in the morning. Admini ster before breakfast. Prasugrel (EFFIENT) 10 mg Oral Tablet Take 10 mg by mouth once daily. promethazine 25 mg oral tablet Take 1 tablet by mouth four times daily as needed for na usea/vomiting. Somatropin (NUTROPIN AQ NUSPIN) 10 mg/2 mL (5 mg/mL) subcutaneous cartridge Inject 0.8 mg under the skin (SUBC) once daily. No current facility-administered medications for this visit. Allergies reviewed / updated Allergies Allergen Reactions Bactrim [Sulfamethoxazole-Trimethoprim] Hives, Nausea and Vomiting and Unknown Sores in mouth Sores in mouth Past medical history reviewed / updated Past Medical History Diagnosis Date Arthropathy, unspecified, site unspecified CAD (coronary artery disease) 2010 [place], LCx stent and [employer]ING of RCA; cath 06/2016: moderate LAD disease, patent LCx stent, chronic occlusion RCA Closed fracture of unspecified bone Essential hypertension Headache(784.0) Hypogonadism Mitral valve mass Myocardial infarction (HCC) 2010 Other unspecified back disorder Palsy (HCC) 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 Pituitary adenoma (HCC) Past surgery reviewed / updated Past Surgical History Procedure Laterality Date Left medial rectus recession of 3.0 mm with one-third tendon width infraplacement 05/2005 Transsphenoidal resection of pituitary adenoma 09/15/2005 Hx eye surgery 2004 Family history reviewed / updated Family History Problem Relation Adopted: Yes Diabetes Mother Hypertension Mother Heart Disease Mother Arthritis Mother Heart Disease Father Hypertension Sister Social history reviewed / updated Social History Substance Use Topics Smoking status: Former Smoker Smokeless tobacco: Current User Types: Chew Comment: occasionally Alcohol use Yes Comment: occasionally PHYSICAL EXAM: Last Vitals: BP 146/91 | Pulse 59 | Temp (Src) 36.4 C (97.6 F) (Forehead) | RR 14 | Ht 1.727 m (5' 8") | Wt 121.6 kg (268 lb) | SpO2 99% | BMI 40.75 kg/(m^2) Body mass index is 40 .75 kg/(m^2). General: Patients general appearance: Healthy, Alert, No distress, Cooperative and Age appr opriate Head & Neck/Airway: Neck ROM: full Neck Circumference: 43 cm. TM Distance:> 6cm Date of last Dental Exam: 7-8 months ago Mallampati: III Mouth Opening: > = 3 cm C-Spine: normal Neck Anatomy: Thick, obese Lung Exam: CTA(B), no w/r/r, good air movement, no increased work of breathing and speaking in full sentences breath sounds normal Cardiac: Rhythm: regular Rate: normal murmur, carotid bruit, JVD, peripheral edema and weak pulses Abdominal: General Findings: no abdominal tenderness and Nondistended obesity Bowel Sounds: bowel sounds are normal Musculoskeletal: Findings: tone normal and normal strength Neuro/Psych: alert Findings: Normal affect, No tremor, Alert, oriented to person, place, ti me, Motor 5/5 strength globally with normal tone and Cranial nerves 2-12 intact Integument: - open wounds Color: pink Texture: Skin texture - normal Turgor: turgor normal Implants: None, LABS & DATA REVIEWED/ORDERED: Lab Results Component Value Date WBC 9.08 07/07/2016 HB 18.0 07/07/2016 HCT 52.3 07/07/2016 PLT 280 07/07/2016 MCV 84.4 07/07/2016 RDW 41.4 07/07/2016 Lab Results Component Value Date NA 141 07/07/2016 K 4.1 07/07/2016 CL 107 07/07/2016 BICARB 26 07/07/2016 BUN 12 07/07/2016 CR 0.83 07/07/2016 GLU 96 07/07/2016 CA 8.4 07/07/2016 AST 24 07/07/2016 ALT 32 07/07/2016 AP 54 07/07/2016 TBILI 0.7 07/07/2016 TP 7.4 07/07/2016 ALB 3.6 07/07/2016 Lab Results Component Value Date ABO A 09/15/2005 RH POS 09/15/2005 Lab Results Component Value Date A1C 7.7 (H) 11/16/2015 EKG: Personally reviewed. sinus 60bpm, inferior infarct Outside records reviewed from [facility]where and "media" tab. Findings pertinent to this pr eoperative visit are as follows: Coronary cath 07/02/2016: RESULTS 1. Left main coronary artery bifurcates [...] chronically occluded in the midportion. There are ydbo-vm-mzfeb collaterals. IMPRESSION 1. Two-vessel coronary artery disease with moderate disease of the iqrwcgyh-jr-zhr left anterior descending artery. 2. Patent stent in the left circumflex artery. 3. Chronically-occluded right coronary artery with kcmu-ek-zruav Collaterals. TTE 05/2016: 1. Sinus rhythm. 2. Cardiac [...] inadequate TR to estimate PAP. Coronary angiogram 11/2014: [employer] RCA Patent L Cx stent ASSESSMENT and RECOMMENDATIONS: Perioperative risk assessment: Amairani Ulloa is a 36 y.o. male with diagnosis of daksha ral valve mass and CAD, scheduled for the above surgery. Based on the clinical information obtained and reviewed during this visit, the overall assessment is that the patient is havin g elective major surgery with identified risk factors. The patient is stable / optimized fo r surgery. Additional testing/optimization is not needed. Medication management recommendations: The patient was advised to continue all usual med ications except as noted in Patient Instructions (After Visit Summary given to pt) Leora-op MSSA/MRSA screening/SSI reduction initiative--nasal culture obtained in clinic, res ults pending. Pt given instructions for CHG wipes. Chart and management plan will be updat ed accordingly based on the results. Hypertension--medication instructions provided for the morning of surgery MALLIKA--instructed to bring his own CPAP to use post-op Diabetes--improved control recently, instructed to hold metformin tomorrow Panhypopituitarism: 1. Diabetes insipitus--instructed to take AM DDAVP dose tomorrow. Anticipate need for clos e monitoring of UOP and electrolytes. 2. Adrenal insufficiency--recommend DOS stress dosed steroids Thank you for the opportunity to contribute to this patient's care. Stephenie Yu MD, FACP AREA CLEANERREGISTERED AP[employer]A[facility] DEPARTMENT OF MEDICINE DIVISION OF [facility] MEDICINE PRE-OPERATIVE MEDICINE BRANCH ACCOUNT MANAGER LOCKSTITCH ZIPPER SETTER [address] [place] [address] documented in thi s encounter Plan of Treatment +--------+---------+ + + + | Date | Type | Specialty | Care Team | Description | +--------+---------+ + + + | 08/15/ | Office | Cardiology | Zuleika Hernandez, | | | 2019 | Visit | | [address] | | | | | | [address] | | | | | | [place], [place] | | | | | | [address] | | | | | | [phone] | | | | | | | | +--------+---------+ + + + + + +--------+ + + | Name | Type | Priori | Associated Diagnoses | Order Schedule | | | | ty | | | + + +--------+ + + | COMMUNICATION TO [facility] | Procedures | Routin | Preop examination | Ordered: 07/07/2016 | | LAB DRAW | | e | | | + + +--------+ + + documented as of this encounter Procedures + +--------+ + + + | Procedure Name | Priori | Date/Time | Associated Diagnosis | Comments | | | ty | | | | + +--------+ + + + | AR COLLECTION VENOUS | Routin | 07/07/2016 | Preop examination | | | BLOOD,VENIPUNCTURE | e | 3:15 PM | | | | | | PST | | | + +--------+ + + + | 12 LEAD ECG | Routin | 07/07/2016 | Preop examination | Results for this | | | e | 3:03 PM | | procedure are in the | | | | PST | | results section. | + +--------+ + + + | PHOSPHORUS, PLASMA | Routin | 07/07/2016 | Preop examination | Results for this | | | e | 3:03 PM | | procedure are in the | | | | PST | | results section. | + +--------+ + + + | STAPH SCREEN, MRSA | Routin | 07/07/2016 | Preop examination | Results for this | | BY PCR, NASAL ONLY | e | 2:59 PM | | procedure are in the | | | | PST | | results section. | + +--------+ + + + | CBC (HEMOGRAM) ONLY | Routin | 07/07/2016 | Preop examination | Results for this | | | e | 2:59 PM | | procedure are in the | | | | PST | | results section. | + +--------+ + + + | INR | Routin | 07/07/2016 | Preop examination | Results for this | | | e | 2:59 PM | | procedure are in the | | | | PST | | results section. | + +--------+ + + + | COMPLETE METABOLIC | Routin | 07/07/2016 | Preop examination | Results for this | | SET | e | 2:59 PM | | procedure are in the | | (NA,K,CL,CO2,BUN,CRE | | PST | | results section. | | AT,GLUC,CA,AST,ALT,B | | | | | | ALMA TOTAL,ALK | | | | | | PHOS,ALB,PROT TOTAL) | | | | | + +--------+ + + + | CBC ONLY | Routin | 07/07/2016 | Preop examination | Results for this | | | e | 2:59 PM | | procedure are in the | | | | PST | | results section. | + +--------+ + + + | APTT (ACT. PART. | Routin | 07/07/2016 | Preop examination | Results for this | | THROMBO TIME) | e | 2:59 PM | | procedure are in the | | | | PST | | results section. | + +--------+ + + + | ANTIBODY SCREEN | Routin | 07/07/2016 | Preop examination | Results for this | | | e | 2:59 PM | | procedure are in the | | | | PST | | results section. | + +--------+ + + + | TYPE AND SCREEN | Routin | 07/07/2016 | Preop examination | Results for this | | | e | 2:59 PM | | procedure are in the | | | | PST | | results section. | + +--------+ + + + | ABO & RH TYPE | Routin | 07/07/2016 | Preop examination | Results for this | | | e | 2:59 PM | | procedure are in the | | | | PST | | results section. | + +--------+ + + + | HEMOGLOBIN A1C, | Routin | 07/07/2016 | Preop examination | Results for this | | BLOOD | e | 2:59 PM | | procedure are in the [...] TREY | | | | | | V MD Noah PAYTON | | | | | | personally [...] | | | + +---------+ + + 12 LEAD ECG (07/07/2016 3:03 PM PST) + + + + + + | Component | Value | Ref Range | Performed | Pathologist | | | | | At | Signature | + + + + + + | VENTRICULAR | 60 | bpm | [facility] | | | RATE | | | OF | | | | | | CARDIOLOGY | | + + + + + + | ATRIAL RATE | 60 | ms | [facility] | | | | | | OF | | | | | | CARDIOLOGY | | + + + + + + | P-R | 176 | ms | [facility] | | | INTERVAL | | | OF | | | | | | CARDIOLOGY | | + + + + + + | P AXIS | 39 | deg | [facility] | | | | | | OF | | | | | | CARDIOLOGY | | + + + + + + | QRS | 94 | ms | [facility] | | | DURATION | | | OF | | | | | | CARDIOLOGY | | + + + + + + | QT | 388 | ms | [facility] | | | | | | OF | | | | | | CARDIOLOGY | | + + + + + + | QTCB | 388 | ms | [facility] | | | | | | OF | | | | | | CARDIOLOGY | | + + + + + + | R AXIS | 13 | deg | [facility] | | | | | | OF | | | | | | CARDIOLOGY | | + + + + + + | T AXIS | 25 | deg | [facility] | | | | | | OF | | | | | | CARDIOLOGY | | + + + + + + | ECG | SINUS RHYTHM | | [facility] | | | IMPRESSION | | | OF | | | | | | CARDIOLOGY | | + + + + + + | ECG | INFERIOR INFARCT, AGE | | [facility] | | | IMPRESSION | INDETERMINATE- ABNORMAL | | OF | | | | ECG - | | CARDIOLOGY | | + + + + + + | ECG | Electronically signed | | [facility] | | | IMPRESSION | by: PJ HUDSON | | OF | | | | 07-07-2016 16:15:03 | | CARDIOLOGY | | + + [...] + + + + + | [facility] | [address] | [place], [place] | | | CARDIOLOGY | [address] | [address] | | + + + + + PHOSPHORUS, PLASMA (07/07/2016 3:03 PM PST) + +-------+ + + + | Component | Value | Ref Range | Performed | Pathologist | | | | | At | Signature | + +-------+ + + + | PHOSPHORUS, | 2.4 | 2.4 - 4.7 mg/dL | [facility] | | | PLASMA [...] [facility] | [address] | [place] [address] | | | SERVICES, CORE | [address] | | | + + + + + APTT (ACT. PART. THROMBO TIME) (07/07/2016 2:59 PM PST) + +-------+ + + + | Component | Value | Ref Range | Performed | Pathologist | | | | | At | Signature | + +-------+ + + + | APTT | 27.2 | 26.0 - 36.0 | [facility] | | | | | seconds | LABORATORY | | | | | | SERVICES, | | | | | | CORE | | + +-------+ + + + + + | Specimen | + + | Blood - Blood | | (substance) | + + + + + | Narrative | Performed At | + + + | APTT Therapeutic Range: (75 - | [facility] | | 120) sec Heparin levels of 0.35 - 0.7 U/mL | LABORATORY | | | [address]ANK[address] | + + + + + + + + | Performing | Address | City/State/Zipcode | Phone Number | | Organization | | | | + + + + + | [facility] | [address] | [place] [address] | | | SERVICES, CORE | [address] | | | + + + + + CBC (HEMOGRAM) ONLY (07/07/2016 2:59 PM PST) + + + + + + | Component | Value | Ref Range | Performed | Pathologist | | | | | At | Signature | + + + + + + | WHITE CELL | 9.08 | 3.50 - 10.80 | [facility] | | | COUNT | | K/cu mm | LABORATORY | | | | | | SERVICES, | | | | | | CORE | | + + + + + + | RED CELL | 6.20 (H) | 4.50 - 6.00 | [facility] | | | COUNT | | M/cu mm | LABORATORY | | | | | | SERVICES, | | | | | | CORE | | + + + + + + | HEMOGLOBIN | 18.0 (H) | 13.5 - 17.5 | [facility] | | | | | g/dL | LABORATORY | | | | | | SERVICES, | | | | | | CORE | | + + + + + + | HEMATOCRIT | 52.3 | 41.0 - 53.0 % | [facility] | | | | | | LABORATORY | | | | | | SERVICES, | | | | | | CORE | | + + + + + + | MCV | 84.4 | 80.0 - 96.0 fL | [facility] | | | | | | LABORATORY | | | | | | SERVICES, | | | | | | CORE | | + + + + + + | MCHC | 34.4 | 33.0 - 35.5 | [facility] | | | | | g/dL | LABORATORY | | | | | | SERVICES, | | | | | | CORE | | + + + + + + | RDW SD | 41.4 | 35.1 - 46.3 fL | [facility] | | | | | | LABORATORY | | | | | | SERVICES, | | | | | | CORE | | + + + + + + | PLATELET | 280 | 150 - 400 K/cu | [facility] | | | COUNT | | mm | LABORATORY | | | | | | SERVICES, | | | | | | CORE | | + + + + + + | MPV | 9.4 (L) | 9.7 - 12.3 fL | [...] At | + + + | New adult WBC reference ranges effective June 25, 2016. | [facility] | | | LABORATORY | | | SERVICES, CORE | + + + + + + + + | Performing | Address | City/State/Zipcode | Phone Number | | Organization | | | | + + + + + | [facility] | [address] | [place] [address] | | | SERVICES, CORE | [address] | | | + + + + + ANTIBODY SCREEN (07/07/2016 2:59 PM PST) + + + + + + | Component | Value | Ref Range | Performed | Pathologist | | | | | At | Signature | + + + + + + | Antibody | Negative | | [facility] | | | Screen | | | LABORATORY | | | [...] | + + + + + | [facility] | [address] | [place] [address] | | | SERVICES, | [address] | | | | TRANSFUSION MEDICINE | | | | + + + + + ABO & RH TYPE (07/07/2016 2:59 PM PST) + + + + + [...] | + + + + + | [facility] | [address] | [place] [address] | | | SERVICES, | [address] | | | | TRANSFUSION MEDICINE | | | | + + + + + STAPH SCREEN, MRSA BY PCR, NASAL ONLY (07/07/2016 2:59 PM PST) + + + + + + | Component | Value | Ref Range | Performed | Pathologist | | | | | At | Signature | + + + + + + | MRSA/MSSA | MSSA (methicillin | Not Detected | [facility] | | | | susceptible S. aureus) | | LABORATORY | | | | detected (A) | | SERVICES, | | | | | | CORE | | + + + + + + + + | Specimen | + + | Swab - Nasal | | (qualifier value) | + + + + + + + | Performing | Address | City/State/Zipcode | Phone Number | | Organization | | | | + + + + + | [facility] | [address] | [place] [address] | | | SERVICES, CORE | [address] | | | + + + + + INR (07/07/2016 2:59 PM PST) + +-------+ + + + | Component | Value | Ref Range | Performed | Pathologist | | | | | At | Signature | + +-------+ + + + | INR | 0.96 | 0.90 - 1.20 INR | [facility] [...] mech. valves (2.5 - 3.5) INR | SERVICES, CORE | + + + + + + + + | Performing | Address | City/State/Zipcode | Phone Number | | Organization | | | | + + + + + | [facility] | [address] | [place] [address] | | | SERVICES, CORE | [address] | | | + + + + + HEMOGLOBIN A1C, BLOOD (07/07/2016 2:59 PM PST) + + + + + + | Component | Value | Ref Range | Performed | Pathologist | | | | | At | Signature | + + + + + + | HEMOGLOBIN | 6.0 (H)Comment: Hbg A1c | <5.7 % | [...] + | [facility] | [address] | [place] [address] | | | SERVICES, SPECIAL | [address] | | | | IMM + COAG | | | | + + + + + COMPLETE METABOLIC SET (NA,K,CL,CO2,BUN,CREAT,GLUC,CA,AST,ALT,BILI TOTAL,ALK PHOS,ALB,PROT TOTAL) (07/07/2016 2:59 PM PST) + +---------+ + + + | Component | Value | Ref Range | Performed | Pathologist | | | | | At | Signature | + +---------+ + + + | GLUCOSE, | 96 | 60 - 99 mg/dL | [facility] [...] +---------+ + + + | CREATININE | 0.83 | 0.70 - 1.30 | [facility] | | | PLASMA | | mg/dL | LABORATORY | | | (LAB) | | | SERVICES, | | | | | | CORE | | + +---------+ + + + | EGFR | >60 | >60 mL/min | [facility] | | | - | | | LABORATORY | | | NAURUAN | | | SERVICES, | | | [...] +---------+ + + + | CHLORIDE, | 107 [...] +---------+ + + + | CALCIUM, | 8.4 (L) | 8.6 - 10.2 | [facility] | | | PLASMA | | mg/dL | LABORATORY | | | (LAB) | | | SERVICES, | | | | | | CORE | | + +---------+ + + + | CALCIUM(ALB | 8.7 | 8.6 - 10.2 | [facility] | | | CORRECTED) | | mg/dL | LABORATORY | | | | | | SERVICES, | | | | | | CORE | | + +---------+ + + + | BILIRUBIN | 0.7 | 0.3 - 1.2 mg/dL | [facility] | | | TOTAL | | | LABORATORY | | | | | | SERVICES, | | | | | | CORE | | + +---------+ + + + | TOTAL | 7.4 | 6.4 - 8.2 g/dL | [facility] | | | PROTEIN, | | | LABORATORY | | | PLASMA | | | SERVICES, | | | (LAB) | | | CORE | | + +---------+ + + + | ALBUMIN, | 3.6 | 3.5 - 4.7 g/dL | [facility] | | | PLASMA | | | LABORATORY | | | (LAB) | | | SERVICES, | | | | | | CORE | | + +---------+ + + + | ALK PHOS | 54 | 53 - 128 U/L | [facility] | | | | | | LABORATORY | | | | | | SERVICES, | | | | | | CORE | | + +---------+ + + + | AST(SGOT) | 24 | <=41 U/L | [facility] | | | | | | LABORATORY | | | | | | SERVICES, | | | | | | CORE | | + +---------+ + + + | ALT (SGPT) | 32 | <=60 U/L | [facility] | | | | | | LABORATORY | | | | | | SERVICES, | | | | | | CORE | | + +---------+ + + + | ANION GAP | 8 | mmol/L | [facility] | | | | | | LABORATORY | | | | | | SERVICES, | | | | | | CORE | | + +---------+ + + + | ANION | 9 | 4 - 11 mmol/L | [facility] | | | GAP(ALB | | | LABORATORY | | | CORRECTED) | | | SERVICES, | | | | | | CORE | | + +---------+ + + + | POTASSIUM | No Hemo | | [facility] | | | CMNT | | | LABORATORY | | | | | | SERVICES, | | | | | | CORE | | + +---------+ + + + | BILI T CMNT | No Hemo | | [facility] | | | | | | LABORATORY | | | | | | SERVICES, | | | | | | CORE | | + +---------+ + + + | AST CMNT | No Hemo | | [facility] | | | | [...] + | [facility] | [address] | [place] [address] | | | MASSIEL, VITALY | [address] | | | + + + + + documented in this encounter Visit Diagnoses + + | Diagnosis | + + | Preop examination - Primary Preoperative examination, unspecified | + + | Mitral leaflet abnormality | + + | Diabetes insipidus (HCC) Diabetes insipidus | + + | Adrenal insufficiency (HCC) Glucocorticoid deficiency | + + | Pituitary adenoma (HCC) Benign neoplasm of pituitary gland and craniopharyngeal duct | | (pouch) | + + | Panhypopituitarism (HCC) Panhypopituitarism | + + | Coronary artery disease, angina presence unspecified, unspecified vessel or lesion | | type, unspecified whether [place] or transplanted heart | + + documented in this encounter
--- OUTSIDE RECORDS SUMMARY | ~2019-07-14 | XMS | Encounter Summary ---
Demographics + + + | Address | [address] | | | [place] [address] | + + + | Home Phone | | + + + | Preferred Language | Unknown | + + + | Marital Status | Single | + + + | Christianity Affiliation | Unknown | + + + | Race | Unknown | + + + | Ethnic Group | Unknown | + + + Author + + + | Author | [facility] | | | and [place] | + + + | Organization | [facility] | | | and [place] [...] Team Providers + +------+ + | Care Shrimp Peeling Machine Operator Name | Role | Phone [...] | | | | Diagnoses | | John | | | | | Morbid | | MD Jorge | | | | | obesity with | | [address] | | | | | BMI of | | [place], | | | | | 45.0-49.9, | | [place] [address] | | | | | adult (HCC) | | Phone: | | | | | Weight | | [phone] | | | | | loss, | | Fax: | | | | | non-intentio | | [phone] | | | | | nal | | | | | | | Obstructive | | | | | | | sleep apnea | | | | | | | Weight | | | | | | | loss, | | | | | | | non-intentio | | | | | | | nal | | | | | | | [R63.4]Morbi | | | | | | | d obesity | | | | | | | with BMI of | | | | | | | 45.0-49.9, | | | | | | | adult (HCC) | | | | | | | [E66.01, | | | | | | | Z68.42]Obstr | | | | | | | uctive sleep | | | | | | | apnea | | | | | | | [G47.33] | | | +--------+--------+ + + + + Encounter Details +--------+ + + + + | Date | Type | Department | Care Team | Description | +--------+ + + + + | 07/25/ | Anesthesia | [facility] | Inder Espinoza MD | | | 2014 | Event | [facility] | [address] | | | | | [address] | [place] | | | | | [place], [place] | [address] | | | | | [address] | [phone] | | | | | [phone] | | | +--------+ + + + + Anesthesia Record + + + + + | Procedure Name | Responsible | Anesthesia Start | Anesthesia Stop Time | | | Anesthesiologist | Time | | + + + + + | EGD (N/A Mouth) | Inder Espinoza MD | 07/25/15 1216 | 07/25/15 1238 | + + + + + +----+---+ + + | Da | T | Event | Comment | | te | i | | | | | m | | | | | e | | | +----+---+ + + | 12 | 1 | An Checkout | Pre-use anesthesia machine/equipment checkout. | | /1 | 2 | | | | 6/ | 1 | | | | 20 | 5 | | | | 15 | | | | +----+---+ + + | | 1 | An Start | Reassessment prior to anesthesia induction/procedure. | | | 2 | | | | | 1 | | | | | 6 | | | +----+---+ + + | | 1 | | | | | 2 | | | | | 1 | | | | | 8 | | | +----+---+ + + | | 1 | An | | | | 2 | Induction | | | | 2 | | | | | 0 | | | +----+---+ + + | | 1 | Breathing | | | | 2 | Spontaneous | | | | 2 | ly | | | | 1 | | | +----+---+ + + | | 1 | an stop | | | | 2 | data | | | | 3 | | | | | 0 | | | +----+---+ + + | | 1 | An Stop | Patient handed off to recovery nurse. | | | 3 | | | | | 8 | | | +----+---+ + + +------+ | Meds | +------+ + + + | Name | Total | + + + | propofol | 120 mg | + + + | propofol | 121.39 mg | + + + | lidocaine 2% | 50 mg | + + + | lactated ringers (LR) infusion | 950 mL | + + + + + | No agents on file. | + + + + | No blood administrations on file. | + + +--------+ + + + | Type | Details | Placement | Removal | +--------+ + + + | Periph | 07/25/15; 1017; 20 gauge, 1 1/4 | 07/25/15 1017 by | 07/25/15 1330 by | | lyric | in length; intradermal injection, | Tayla Lazo, | Bev Bahena | | IV | tolerated well; no longer | RN | Meka, PAIGE | | | indicated, catheter/device | | | | | intact, removed per | | | | | policy/procedure; healing within | | | | | expectations; 07/25/15; 1330 | | | +--------+ + + + | [READ | 07/25/15; 1218; 11/01/18 | 07/25/15 1218 by | 11/01/18 1643 by | | ONLY] | (Removed/Completed by utility); | Inder Espinoza MD | User Epic | | [...] [place] | | | | | | [address] | | | | | | | | +--------+---------+ + + + documented as of this encounter Visit Diagnoses Not on filedocumented in this encounter Administered Medications + +--------+ +-------+------+------+ | Medication Order | MAR | Action | Dose | Rate | Site | | | Action | Date | | | | + +--------+ +-------+------+------+ | lidocaine (PF) 2% injection | Given | 07/25/20 | 50 mg | | | | Intravenous, PRN, Starting Wed | | 15 12:19 | | | | | 07/25/15 at 1219, Anesthesia | | PM PST | | | | | Intra-op | | | | | | + +--------+ +-------+------+------+ +---+---+ | | | +---+---+ + +-------+ +-------+---+---+ | propofol (DIPRIVAN) injection | Given | 07/25/20 | 40 mg | | | | Intravenous, PRN, Starting Wed | | 15 12:21 | | | | | 07/25/15 at 1220, Anesthesia | | PM PST | | | | | Intra-op | | | | | | + +-------+ +-------+---+---+ +-------+ +-------+---+---+ | Given | 07/25/20 | 80 mg | | | | | 15 12:20 | | | | | | PM PST | | | | +-------+ +-------+---+---+ +---+---+ | | | +---+---+ + +---------+ + +--------+---+ | propofol (DIPRIVAN) injection | New Bag | 07/25/20 | 130 | 104.1 | | | Intravenous, CONTINUOUS PRN, | | 15 12:21 | mcg/kg/m | mL/hr | | | Starting 07/25/15 at 1221, | | PM PST | in | | | | Anesthesia Intra-op | | | | | | + +---------+ + +--------+---+ +---+---+ | | | +---+---+ documented in this encounter"
--- OUTSIDE RECORDS SUMMARY | ~2019-07-14 | XMS | Encounter Summary ---
Demographics + + + | Address | [address] | | | [place] [address] | + + + | Home Phone [...] + + + | Author | [employer] [facility] | + + + | Organization | [facility] | + + + | Address | Unknown | + + + | Phone | Unavailable | + + + Support + + +---------+ + | Name | Relationship | Address | Phone | + + +---------+ + | Alexandria Dixon | ECON | Unknown | | + + +---------+ + Care Team Providers + +------+ + | Care School Crossing Guard Supervisor Name | Role | Phone | + +------+ + | Priscilla Ramírez PA-C | PCP | | + +------+ + Encounter Details +--------+ + + + + | Date | Type | Department | Care Team | Description | +--------+ + + + + | 08/22/ | Ancillary | Registration [address] | | | | 2005 | Registratio | [address] [facility] | | | | | n | [address] Mailcode: [id number] | | | | | | [place], [place] | | | | | | [address] | | | | | | [phone] | | | +--------+ + + + [...] | | 2019 | Visit | | [address] | | | | | | [address] | | | | | | [place], [place] | | | | | | [address] | | | | | | [phone] | | | | | | | | +--------+---------+ + + + documented as of this encounter Visit Diagnoses Not on filedocumented in this encounter"
--- OUTSIDE RECORDS SUMMARY | ~2019-07-14 | XMS | Encounter Summary ---
Demographics + + + | Address | [address] | | | [place] [address] | + + + | Home Phone [...] + + + | Author | [employer] [facility] | + + + | Organization | [facility] | [...] Team Providers + +------+ + | Care Concrete Crusher Loader Operator Name | Role | Phone | [...] Description | +--------+--------+ + + + | 02/09/ | Refill | Neurosurgery at | Donnie, | Refill Request | | 2017 | | [facility] [address] | [place], | | | | | [place] Mailcode: [id number] | DNP,LEAD CARE MANAGER,[place] [address] | | | | | [facility] | [address] [place], | | | | | and Healing, | [place] [address] | | | | | Building [address] | [phone] | | | | | [place], [place] | | | | | | [address] | | | | | | [phone] | | | +--------+--------+ + + + [...] Rd | | | | | | [place], [place] | | | | | | [address] | | | | | | [phone] | | | | | | | | +--------+---------+ + + + documented as of this encounter Visit Diagnoses + + | Diagnosis | + + | Panhypopituitarism (HCC) - Primary Panhypopituitarism | + + documented in this encounter"
--- OUTSIDE RECORDS SUMMARY | ~2019-07-14 | XMS | Encounter Summary ---
Demographics + + + | Address | [address] | | | [place] [address] | + + + | Home Phone [...] + + + | Author | [employer] [facility] | + + + | Organization | [facility] | + + + | Address | Unknown | + + + | Phone | Unavailable | + + + Support + + +---------+ + | Name | Relationship | Address | Phone | + + +---------+ + | Alexandria Dixon | ECON | Unknown | | + + +---------+ + Care Team Providers + +------+ + | Care Sample Cutter Name | Role | Phone | [...] | | | | | CARDIOLOGY | [place], [place] | for Health | | | | | | [address] | and Healing, | | | | | | Phone: | [address], | | | | | | [phone] | 7th floor | | | | | | Fax: | [place], [place] | | | | | | [phone] | [address] | | | | | | | Phone: | | | | | | | [phone] | | | | | | | Fax: | | | | | | | [phone] | +--------+--------+ + + + + Encounter Details +--------+ + + + + | Date | Type | Department | Care Team | Description | +--------+ + + + + | 08/14/ | Supportability Engineer | Cardiothoracic | Ashish Meyer, | Mitral valve mass | | 2017 | | Surgery at [facility] [address] | PA-C [address] | (Primary Dx) | | | | [address] | [address] | | | | | Abdoulaye Mailcode: [id number] | [place], [place] | | | | | Physician's | [address] | | | | | [place], | [phone] | | | | | [place] [address] | | | | | | [phone] | | | +--------+ + + + [...] Rd | | | | | | [place], [place] | | | | | | [address] | | | | | | [phone] | | | | | | | | +--------+---------+ + + + documented as of this encounter Visit Diagnoses + + | Diagnosis | + + | 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
--- OUTSIDE RECORDS SUMMARY | ~2019-07-14 | XMS | Encounter Summary ---
Demographics + + + | Address | [address] | | | [place] [address] | + + + | Home Phone [...] + + + | Author | [employer] [facility] | + + + | Organization | [facility] | + + + | Address | Unknown | + + + | Phone | Unavailable | + + + Support + + +---------+ + | Name | Relationship | Address | Phone | + + +---------+ + | Alexandria Dixon | ECON | Unknown | | + + +---------+ + Care Team Providers + +------+ + | Care Injection Molding Technician Name | Role | Phone | + +------+ + | Bernardo Pan | PCP | | + +------+ + Encounter Details +--------+ + + + + | Date | Type | Department | Care Team | Description | +--------+ + + + + | 07/27/ | MyChart | Neurosurgery at | Donnie, | RE: Disability | | 2017 | Encounter | [facility] [address] | Cathie | | | | | [place] Mailcode: [id number] | DNP,DIGITAL CONTENT PRODUCER,[place] [address] | | | | | [facility] | [address] [place], | | | | | and [place], | [place] [address] | | | | | [place] [address] | [phone] | | | | | [place], [place] | | | | | | [address] | | | | | | [phone] | | | +--------+ + + + [...] Rd | | | | | | [place], [place] | | | | | | [address] | | | | | | [phone] | | | | | | | | +--------+---------+ + + + documented as of this encounter Visit Diagnoses Not on filedocumented in this encounter"
--- OUTSIDE RECORDS SUMMARY | ~2019-07-14 | XMS | Encounter Summary ---
Demographics + + + | Address | [address] | | | [place] [address] | + + + | Home Phone | | + + + | Preferred Language | Unknown | + + + | Marital Status | Single | + + + | Adventism Affiliation | Unknown | + + + | Race | Unknown | + + + | Ethnic Group | Unknown | + + + Author + + + | Author | [facility] | | | and [place] | + + + | Organization | [facility] | | | and [...] Team Providers + +------+ + | Care Cylinder Sander Operator Name | Role | Phone | + +------+ + PCP | Unavailable | + +------+ + Encounter Details +--------+ + + + + | Date | Type | Department | Care Team | Description | +--------+ + + + + | 11/01/ | Hospital | [facility] | Moiz Raza | | | 2010 | Encounter | MED CTR XRAY [address] | | | | | [place] | [address] [place], [place] | | | | | [place] [address] | [id number] | | | | | [phone] | | | +--------+ + + + [...] 2020 | Visit | | [address] | | | | | | [place] | | | | | | [address] | | | | | | | [...] Performed At | + + + | [facility] | [facility] | | [address] | [facility] | | UNENHANCED MRI THORACIC SPINE | [...] Transcribed Date/Time: 11/01/2010 | | | 10:58 Anesthesiologists' Assistant: <Electronically Signed by Phu Hernandez | | | MD Shorty> 11/01/10 6808 | | + + + + + | Procedure Note | + + | Santhosh, Rad Conversion - 09/16/2013 2:32 PM [facility] | | Diagnostic Imaging Department | | [address] | | | | | | | [...] | Transcribed Date/Time: 11/01/2010 10:58 | | Anesthesiologists' Assistant: | | <Electronically Signed by Phu Oro MD> 11/01/10 2352 | + + + +---------+ + + [...]
--- OUTSIDE RECORDS SUMMARY | ~2019-07-14 | XMS | Encounter Summary ---
Demographics + + + | Address | [address] | | | [place] [address] | + + + | Home Phone [...] + | Author | [facility] | | | and [place] | + + + | Organization | [facility] | | | and [place] [...] + +------+ + | Care Director Of Cardiology Name | Role | Phone | + [...] | | | BMI of | | [place], | | | | | 45.0-49.9, | | [place] [address] | | | | | adult (HCC) | | Phone: | | | | | Weight | | [phone] | | | | | loss, | | Fax: | | | | | non-intentio | | [phone] | | | | | nal | [...] + + + + | 07/25/ | Hospital | [facility] | Jorge Lopez MD | Abnormal weight loss | | 2015 | Encounter | MED CTR MP INTRA OP | [address] | (Primary Dx); | | | | [address] | [place], [place] | Family history of | | | | [place], [place] | [address] | esophageal cancer | | | | [address] | [phone] | | | | | [phone] | | | +--------+ + + + [...] + + + | Blood Pressure | 101/59 | 07/25/2015 1:30 PM | | | | | PST | | + + + + + | Pulse | 74 | 07/25/2015 1:30 PM | | | | | PST | | + + + + + | Temperature | 36 C (96.8 F) | 07/25/2015 9:00 AM | | | | | PST | | + + + + + | Respiratory Rate | 16 | 07/25/2015 1:15 PM | | | | | PST | | + + + + + | Oxygen Saturation | 100% | 07/25/2015 1:30 PM | | | | | PST | | + + + + + | Inhaled Oxygen | - | - | | | Concentration | | | | + + + + + | Weight | 133.4 kg (294 lb) | 07/25/2015 9:00 AM | | | | | PST | | + + + + + | Height | 172.7 cm (5' 8") | 07/25/2015 9:00 AM | | | | | PST | | + + + + + | Body Mass Index | 44.7 | 07/25/2015 9:00 AM | | | | | PST | | + + + + + documented in this encounter Discharge Instructions Instructions Jorge Lopez MD - 07/24/2015Patient Discharge Instructions after an Endosco py Procedure ? You may resume your regular diet after discharge. ? Do not drive, operate machinery, make critical decisions or do activities that require co ordination or balance for 24hrs. ? Resume normal medications unless otherwise instructed. ? If biopsies were taken, the physician s office will contact you within 7-10 days. ? If a colonoscopy was performed, then you may continue to expel large amounts of air from your rectum. Please call the physician who did your procedure at [phone] if you have any questions or experience any of the following: ? Increasing abdominal pain, nausea, or vomiting. ? Chills and fever over 101F. ? New abdominal swelling or bloating. ? Signs of rectal bleeding (black or red stool). If you cannot get a hold of your physician, then call the [facility] [phone] . If necessary, report to the Emergency Department at [facility]. Quit smoking: If you smoke or have smoked within the last year, quitting is the most import ant thing you can do to protect and improve your health. documented in this encounter Medications at Time [...] [place] | | | | | | [address] | | | | | | | | +--------+---------+ + + + documented as of this encounter Procedures + +--------+ + + + | Procedure Name | Priori | Date/Time | Associated Diagnosis | Comments | | | ty | | | | + +--------+ + + + | EGD | | 07/25/2015 | Morbid obesity | | | | | 12:16 PM | with BMI of | | | | | PST | 45.0-49.9, adult | | | | | | ([facility]) Weight loss, | | | | | | non-intentional | | | | | | Obstructive sleep | | | | | | apnea | | + +--------+ + + + | EGD | Routin | 07/25/2015 | | Results for this | | | e | 12:12 PM | | procedure are in the | | | | PST | | results section. | + +--------+ + + + | SURGICAL PATHOLOGY | Routin | 07/25/2015 | | Results for this | | EXAM | e | 12:00 AM | | procedure are in the | | | | PST | | results section. | + +--------+ + + + documented in this encounter Results EGD (07/25/2015 12:12 PM PST) + + | Specimen | + + | | + + + + -+ | Narrative | Performed At | + + -+ | | [facility] | | GastroenterologyPatient Name: Amairani Matt Date: 07/25/2015 | [facility] | | 12:12 PMMRN: [id number] #: [id number] of : | | | 1980Admit Type: AmbulatoryAge: 35Room: [facility] 02Gender: MaleNote | | | Status: FinalizedAttending MD: Jorge Lopez, [facility]cedure: | | | Upper GI endoscopyIndications: Screening | | | procedureProviders: Jorge Lopez MD, Vida Nelson | | | PAIGE Burnette, Priscilla Jimenez, | | | Rubber Goods Cutter Finisher, Inder Espinoza MD (Anesthesia | | | Staff)Referring MD: Jinny Bergeron MD (Referring | | | MD)Medicines: Monitored Anesthesia CareComplications: | | | No immediate complications.Procedure: Pre-Anesthesia | | | Assessment: - Prior to the procedure, a History and Physical was | | | performed, and patient medications and allergies were | | | reviewed. The patient is competent. The risks and benefits of | | | the procedure and the sedation options and risks were discussed | | | with the patient. All questions were answered and informed | | | consent was obtained. Patient identification and proposed | | | procedure were verified by the physician, the nurse, the | | | anesthesiologist and the semiconductor equipment technician in the pre-procedure area in the | | | endoscopy suite. Mental Status Examination: alert and oriented. | | | Airway Examination: normal oropharyngeal airway and neck | | | mobility. Respiratory Examination: clear to auscultation. CV | | | Examination: normal. Prophylactic Antibiotics: The patient does | | | not require prophylactic antibiotics. Prior Anticoagulants: | | | The patient has taken no previous anticoagulant or antiplatelet | | | agents. ASA Grade Assessment: III - A patient with severe | | | systemic disease. After reviewing the risks and benefits, the patient | | | was deemed in satisfactory condition to undergo the procedure. | | | The anesthesia plan was to use monitored anesthesia care (MAC). | | | Immediately prior to administration of medications, the | | | patient was re-assessed for adequacy to receive sedatives. The | | | heart rate, respiratory rate, oxygen saturations, blood | | | pressure, adequacy of pulmonary ventilation, and response to | | | care were monitored throughout the procedure. The physical | | | status of the patient was re-assessed after the procedure. After | | | obtaining informed consent, the endoscope was passed under direct | | | vision. Throughout the procedure, the patient's blood pressure, | | | pulse, and oxygen saturations were monitored continuously. The | | | Endoscope was introduced through the mouth, and advanced to the | | | third part of duodenum. The upper GI endoscopy was | | | accomplished without difficulty. The patient tolerated the | | | procedure well.Findings: LA Grade B (one or more mucosal breaks | | | greater than 5 mm, not extending between the tops of two | | | mucosal folds) esophagitis with no bleeding was found 39 cm | | | from the incisors. Biopsies were taken with a cold forceps for | | | histology. Verification of patient identification for the specimen | | | was done by the physician and nurse using the patient's name and | | | date. Estimated blood loss was minimal. No other | | | significant abnormalities were identified in a careful | | | examination of the esophagus. The entire examined stomach was | | | normal. The cardia and gastric fundus were normal on | | | retroflexion. The duodenal bulb, 2nd part of the duodenum and | | | 3rd part of the duodenum were normal.Impression: - LA | | | Grade B reflux esophagitis. Biopsied. - Normal stomach. - | | | Normal duodenal bulb, 2nd part of the duodenum and 3rd part of the | | | duodenum.Recommendation: - Patient has a contact number | | | available for emergencies. The signs and symptoms of potential | | | delayed complications were discussed with the patient. Return | | | to normal activities tomorrow. Written discharge instructions | | | were provided to the patient. - Regular diet. - Discharge | | | patient to home. - Await pathology results. - Return to GI | | | clinic PRN. - The findings and recommendations were discussed | | | with the patient.Jorge Lopez MD07/25/2015 12:33 PMNumber of | | | Addenda: 0Note Initiated On: 07/25/2015 12:12 PMScope Withdrawal Time: | | | 0 hours 0 minutes 0 seconds Total Procedure Duration: 0 hours 6 | | | minutes 18 seconds Scope In: 12:22:34 PMScope Out: 12:28:52 PM | | | [facility], [address] [place] [address] | | | [id number] | | | symptoms of potential delayed complications were discussed with the | | | patient. Return to normal activities tomorrow. Written discharge | | | instructions were provided to the patient. | | | - Regular diet. | | | - Discharge patient to home. | | | - Await pathology results. | | | - Return to GI clinic PRN. | | | - The findings and recommendations were discussed with the patient. | | |Jorge Lopez MD | | |07/25/2015 12:33 PM | | |Number of Addenda: 0 | | |Note Initiated On: 07/25/2015 12:12 PM | | |Scope Withdrawal Time: 0 hours 0 minutes 0 seconds | | |Total Procedure Duration: 0 hours 6 minutes 18 seconds | | |Scope In: 12:22:34 PM | | |Scope Out: 12:28:52 PM | | | [facility], [address] [place], [place] | | | [address] | | + + -+ + +---------+ + + | Performing | Address | City/State/Zipcode | Phone Number | | Organization | | | | + +---------+ + + | [facility] [place] | | | | + +---------+ + + Surgical Pathology Exam (07/25/2015 12:00 AM PST) + + | Specimen | + + | | + + + + + | Narrative | Performed At | + + + | SPECIMEN(S): A GE JUNCTION SPECIMEN(S): B ESOPHAGEAL BIOPSY | [facility] | | SPECIMEN SOURCE: A. GE JUNCTION B. ESOPHAGEAL BIOPSY CLINICAL | [facility] | | HISTORY: E66.01 (morbid [severe] obesity due to excess calories), | | | R63.4 (abnormal weight loss), G47.33 (obstructive sleep apnea [adult] | | | [pediatric]) MICROSCOPIC DESCRIPTION: Histologic sections of all | | | submitted blocks are examined by light microscopy. These findings, | | | together with the gross examination, support the pathologic diagnosis. | | | FINAL PATHOLOGIC DIAGNOSIS: A. Gastroesophageal junction, | | | biopsy: - Gastroesophageal junction mucosa consistent with reflux | | | esophagitis. - No intestinal metaplasia (Gong's esophagus) | | | identified. - No dysplasia identified. B. Esophagus, biopsy: - | | | Fragments of benign squamous esophageal mucosa, negative for reflux | | | esophagitis. - Negative for intestinal metaplasia (Gong's | | | esophagus). - Negative for dysplasia. [facility]:C2NR GROSS | | | DESCRIPTION: The specimen is received in two parts. A. The | | | specimen is labeled "TylerAmairani Van" and designated "GE junction bx" | | | on the requisition. Received in formalin are three pink-tim colored | | | tissue fragments, 0.2-0.6 cm, all into (A1). B. The specimen is | | | labeled "Amairani Tyler Van" and designated "esophageal bx" on the | | | requisition. Received in formalin are four cream pink colored tissue | | | fragments, 0.15-0.3 cm, all into (B1). yt:[facility] PERFORMING | | | LABORATORY: Tissue processing and slide preparation were performed by | | | [employer], [address], [place] [address] | | | (Lead Android Developer: Balta Pack M.D. CLIA#: [id number]). | | | Professional interpretation was performed by [facility] | | | [facility], [address] [place] [address], [place], | | | [place] [address] (Lead Android Developer: Nitin Avina M.D.; CLIA#: | | | [id number]). Diagnostician: Nitin Avina MD Pathologist | | | Electronically Signed 07/26/2015 | | + + + + +---------+ + + | Performing | Address | City/State/Zipcode | Phone Number | | Organization | | | | + +---------+ + + | [facility] | | | | | [facility] | | | | + +---------+ + + documented in this encounter Visit Diagnoses + + | Diagnosis | + + | Abnormal weight loss - Primary Loss of weight | + + | Family history of esophageal cancer Family history of malignant neoplasm of | | gastrointestinal tract | + + documented in this encounter Administered Medications + +---------+ +------+-------+------+ | Medication Order | MAR | Action | Dose | Rate | Site | | | Action | Date | | | | + +---------+ +------+-------+------+ | lactated ringers (LR) infusion | New Bag | 07/25/20 | | 100 | | | at 100 mL/hr, Intravenous, | | 15 1:10 | | mL/hr | | | CONTINUOUS, Starting 07/25/15 | | PM PST | | | | | at 1045, Pre-op | | | | | | + +---------+ +------+-------+------+ +---------+ +---+-------+---+ | New Bag | 07/25/20 | | 100 | | | | 15 10:18 | | mL/hr | | | | AM PST | | | | +---------+ +---+-------+---+ +---+---+ | | | +---+---+ documented in this encounter
--- OUTSIDE RECORDS SUMMARY | ~2019-07-14 | XMS | Encounter Summary ---
Demographics + + + | Address | [address] | | | [place] [address] | + + + | Home Phone [...] + + + | Author | [place] [employer] [facility] | + + + | Organization | [facility] | [...] Providers + +------+ + | Care Automatic Edger Name | Role | Phone | + [...] 2018 | Encounter | [facility] | [place] [address] | | | | | [facility] | [facility] | | | | | [place] [address] [address] | [place], [place] | | | | | [address] | [address] | | | | | [place], [place] | [phone] | | | | | [address] | | | | | | [phone] | | | +--------+ + + + [...] Rd | | | | | | [place], [place] | | | | | | [address] | | | | | | [phone] | | | | | | | | +--------+---------+ + + + documented as of this encounter Visit Diagnoses Not on filedocumented in this encounter"
--- OUTSIDE RECORDS SUMMARY | ~2019-07-14 | XMS | Encounter Summary ---
Demographics + + + | Address | [address] | | | [place] [address] | + + + | Home Phone [...] + + + | Author | [place] [employer] [facility] | + + + | Organization | [facility] [...] Team Providers + +------+ + | Care Fingerprint Clerk Name | Role | Phone | [...] Closed | | Cardiology | Diagnoses | Reinaldo, | Car Echo | | | | | Cardiac | Irene Olsen PA-C | [facility] [address] | | | | | mass | [address] | [address] | | | | | Procedures | [address] | [address] | | | | | TRANSTHORACI | [address] | Mailcode: | | | | | C | [place], [place] | [address] | | | | | ECHOCARDIOGR | [address] | [address] | | | | | AM, ADULT | | Building | | | | | | | [place], [place] | | | | | | | [address] | | | | | | | Phone: | | | | | | | [phone] | +--------+--------+ + + + + Reason for Visit + + + | Reason | Comments | + + + | Follow-up visit | | + + + Consultation (Routine) [...] | | | | | leaflet | DNP,PEOPLESOFT HCM CONSULTANT,[place] | [address] | | | | | abnormality | [address] | [address] | | | | | Procedures | Ave | [address] | | | | | CONSULT TO | [place], [place] | [place], [place] | | | | | SURGERY - | [address] | [address] | | | | | CARDIOTHORAC | Phone: | Phone: | | | | | IC | [phone] | [phone] | | | | | | Fax: | Fax: | | | | | | [phone] | [phone] | + +--------+ + + + + Encounter Details +--------+---------+ + + + | Date | Type | Department | Care Team | Description | +--------+---------+ + + + | 08/14/ | Office | Cardiothoracic | Koffi Aguilar | Cardiac mass | | 2017 | Visit | Surgery at [facility] [address] | MD Michell [address] | (Primary Dx) | | | | [address] | [address] | | | | | Rd Mail[address]: [address] | [place], [place] | | | | | Physician's | [address] | | | | | [place], | [phone] | | | | | [place] [address] | | | | | | [phone] | | | +--------+---------+ + + + [...] + + + | Blood Pressure | 132/76 | 08/14/2016 12:54 PM | | | | | PST | | + + + + + | Pulse | 86 | 08/14/2016 12:54 PM | | | | | PST | | + + + + + | Temperature | 36.7 C (98 F) | 08/14/2016 12:54 PM | | | | | PST | | + + + + + | Respiratory Rate | - | - | | + + + + + | Oxygen Saturation | 98% | 08/14/2016 12:54 PM | | | | | PST | | + + + + + | Inhaled Oxygen | - | - | | | Concentration | | | | + + + + + | Weight | 123.4 kg (272 lb) | 08/14/2016 12:54 PM | | | | | PST | | + + + + + | Height | - | - | | + + + + + | Body Mass Index | 41.37 | 07/08/2016 9:30 AM | | | | | PST | | + + + + + documented in this encounter Progress Notes Koffi Aguilar MD - 08/14/2016 1:00 PM PSTDate of service: 08/14/2016 I personally interviewed the patient, performed the pertinent parts of the physical examina tion and personally formulated the plan with the resident. I agree with the resident's docu mentation and have documented any additions or exceptions. I have reviewed his imaging with Dr Reeder and Dr Cotto. His TTE today shows a small i ndependently mobile echodensity with associated mitral annular calcium. After discussion, we will obtain cardiac CT scan to further evaluate the mass and follow up with him in clinic. I spoke with him about the plan. He understands and wishes to proceed. I spent 90 minutes in the care of this patient, greater than 50% of which was CCC. Koffi Aguilar MD Irene Samano PA-C - 08/14/2016 1:00 PM PSTCardiothoracic Surgery Clinic Date of Service: 08/14/2016 Referring Providers: Cathie Fields NP Patient Care Team: Bernardo Pan as PCP - General (Family Medicine) Jhonny Rodriguez DO as Primary Treatment Team (Family Medicine) Jose Shelton DO (Internal Medicine) Jinny Bergeron MD (Family Medicine) Cathie Fields, SANIYA,PEOPLESOFT HCM CONSULTANT,[place] (NURSE PRACTITIONER FAMILY) Reason for Visit: Postoperative check Subjective: Mr. Tyler has known CAD with previous stent to the RCA which was found to be occluded on r ecent angiogram. 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 He presented to [facility] on 08/07/2016 for surgical removal of the mass and coronary bypass grafting. On intra-op MAURA the mass on his mitral valve was no longer visible and the operat ion was canceled without making an incision. Case management was arranged for INR follow-up for his warfarin to be followed by his PCP. He returns today for follow-up with Dr. Aguilar with a repeat TTE and a stress echo. He states since his discharge he's been having high blood pressure readings. BP has been as high as 160-170s over 100. He denies and chest pain or shortness of breath. The patient's current medications include: amLODIPine 5 mg oral tablet, Take 1 [...] Take 5 tablets by mouth once daily. 20mg QAM, 5mg QPM Resu me your normal dosing of hydrocortisone on 07/09/16. hydrocortisone sodium succinate, PF, (HYDROCORTISONE SODIUM SUCCINATE) 100 mg/2 mL injectio n recon soln, Inject 1ml for symptoms of adrenal [...] in the morning. Administe r before breakfast. promethazine 25 mg oral tablet, Take 1 tablet by mouth four times daily as needed for nause a/vomiting. Somatropin (NUTROPIN AQ NUSPIN) 10 mg/2 mL (5 mg/mL) subcutaneous cartridge, Inject 0.8 mg under the skin (SUBC) once daily. warfarin 5 mg oral tablet, Take 1 tablet by mouth once daily. Objective: Vital Signs: There were no vitals taken for this visit. General: Flushed, alert. comfortable. Chest: clear. Cardiovascular: S1S2 REG Extremities: Warm, no le edema Studies: TTE--reviewed with Dr. Reeder and Dr. Aguilar Assessment/Plan: In summary, Mr. Tyler returns today with follow up TTE. There appears to be a small echo d ensity on the ventricular side at the base of the anterior leaflet. Echo was reviewed with Basil Reeder and we have ordered another TTE for today. Dr. Aguilar will further review imaging with Dr. Cotto today and discuss further imaging . We will see Mr. Tyler back in clinic once all imaging is complete. IRENE CARLSON PA-C Division of Cardiothoracic Surgery [facility] [place] Mail Code [address] [place] [facility] [place] [address] documented in this e ncounter Plan of Treatment +--------+---------+ + + + | Date | Type | Specialty | Care Team | Description | +--------+---------+ + + + | 08/15/ | Office | Cardiology | Zuleika Hernandez, | | | 2019 | Visit | | [address] | | | | | | [address] | | | | | | [place], [place] | | | | | | [address] | | | | | | [phone] | | | | | | | | +--------+---------+ + + + + +------+--------+ + + | Name | Type | Priori | Associated Diagnoses | Order Schedule | | | | ty | | | + +------+--------+ + + | TRANSTHORACIC | ECG | Routin | Cardiac mass | Ordered: 08/14/2016 | | ECHOCARDIOGRAM, | | e | | | | ADULT | | | | | + +------+--------+ + + documented as of this encounter Visit Diagnoses + + | Diagnosis | + + | Cardiac mass - Primary Swelling, mass, or lump in chest | + + documented in this encounter"
--- OUTSIDE RECORDS SUMMARY | ~2019-07-14 | XMS | Encounter Summary ---
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 | Fax: | [place], [place] | | | | | ([facility]) | [phone] | [address] | | | | | Hypothyroid | | Phone: | | | | | Adrenal | | [phone] | | | | | insufficienc | | Fax: | | | | | y ([facility]) | | [phone] | | | | | Procedures | [...] + + + + | 10/30/ | Relay Shop Tester | Neurosurgery at | Jaclyn Crawford, | Pituitary adenoma | | 2010 | | [address] | [address] | ([facility]); 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Ave Mailcode: CH[address] | [address] | hormone deficiency | | | | [facility] | [place], [place] | ([facility]); 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
--- OUTSIDE RECORDS SUMMARY | ~2019-07-14 | XMS | Encounter Summary ---
Demographics + + + | Address | [address] | | | [place] [address] | + + + | Home Phone | | + + + | Preferred Language | Unknown | + + + | Marital Status | Single | + + + | Congregation Affiliation | NON | + + + | Race | or | + + + | Ethnic Group | Not or | + + + Author + + + | Author | [place] [employer] [facility] | + + + | Organization | [facility] | + + + | Address | Unknown | + + + | Phone | Unavailable | + + + Support + + +---------+ + | Name | Relationship | Address | Phone | + + +---------+ + | Alexandria Dixon | ECON | Unknown | | + + +---------+ + Care Team Providers + +------+ + | Care Plant Controller Name | Role | Phone | + +------+ + | Bernardo Pan | PCP | | + +------+ + Encounter Details +--------+ + + + + | Date | Type | Department | Care Team | Description | +--------+ + + + + | 10/16/ | Head Sawyer | Cardiothoracic | Evelin Godoy, | Coronary artery | | 2017 | | Surgery at [address] | disease, angina | | | | [facility] | [facility] | presence | | | | Rd Mailcode: [address] | [email or web address], [place] | unspecified, | | | | Physician's | [address] | unspecified vessel | | | | [facility], | [phone] | or lesion type, | | | | [place] [address] | | unspecified whether | | | | [phone] | | nondalton or | | | | | | transplanted heart | | | | | | (Primary Dx) | +--------+ + + + + Social [...] | | 2019 | Visit | | [address] | | | | | | [address] | | | | | | [place], [place] | | | | | | [address] | | | | | | [phone] | | | | | | | | +--------+---------+ + + + documented as of this encounter Visit Diagnoses + + | Diagnosis | + + | Coronary artery disease, angina presence unspecified, unspecified vessel or lesion | | type, unspecified whether nondalton or transplanted heart - Primary | + + documented in this encounter"
--- OUTSIDE RECORDS SUMMARY | ~2019-07-14 | XMS | Encounter Summary ---
Demographics + + + | Address | [address] | | | [place] [address] | + + + | Home Phone [...] + + + | Author | [place] [employer] [facility] | + + + | Organization | [facility] | + + + | Address | Unknown | + + + | Phone | Unavailable | + + + Support + + +---------+ + | Name | Relationship | Address | Phone | + + +---------+ + | Alexandria Dixon | ECON | Unknown | | + + +---------+ + Care Team Providers + +------+ + | Care Interactive Account Manager Name | Role | Phone | [...] | | | | | adenoma | DNP,[place] | [address] | | | | | (HCC) | [address] | | | | | Growth | Ave | Mailcode: | | | | | hormone | [place], [place] | [address] | | | | | deficiency | [address] | Luis | | | | | ([facility]) | Phone: | Research | | | | | Diabetes | [phone] | Center | | | | | insipidus | Fax: | [place], [place] | | | | | ([facility]) | [phone] | [address] | | | | | Hypogonadism | | Phone: | | | | | male | | [phone] | | | | | Hypothyroid | | Fax: | | | | | Adrenal | | [phone] | | | | | insufficienc | | | | | | | y ([facility]) | | | | | | | Procedures | | | | | | | MRI BRAIN | | | | | | | WWO CONTRAST | | | +--------+--------+ + + + + Encounter Details +--------+ + + + + | Date | Type | Department | Care Team | Description | +--------+ + + + + | 02/19/ | Deputy [place] Marshal | Neurosurgery at | Donnie, | Pituitary Adenoma | | 2008 | | [facility] [address] | [place], | ([facility]); 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Ave Mailcode: CH8N | DNP,[place] [address] | Hormone Deficiency | | | | [place] for [facility] | [address] [place], | ([facility]); 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, | [place] [address] | Insipidus ([facility]); | | | | Building [address] | [phone] | Hypogonadism Male; | | | | [place], [place] | | Hypothyroid; Adrenal | | | | [address]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 ([facility]) | | | | [phone] | | | +--------+ + + + [...] | | 2019 | Visit | | [address] | | | | | | [address] | | | | | | [place], [place] | | | | | | [address] | | | | | | [phone] | | | | | | | | +--------+---------+ + + + documented as of this encounter Results MRI BRAIN WWO CONTRAST (04/03/2009 8:55 AM PDT) + + + + + + | Component | Value | Ref Range | Performed | Pathologist | | | | | At | Signature | + + + + + + | MR BRAIN | Med Rec No: [id number] | | | | | WWO | Name: | | | | | CONTRAST | FAROOQ LEMA | | | | | | Birthday: 1980 | | | | | | Sex: M | | | | | | Alias:Patient Location: | | | | | | [id number]: Outpatient | | | | | | ActiveOrdering | | | | | | Physician: DONNIE | | | | | | CATHIE Monroy NChinoMBR-+ | | | | | | MRI BRAIN W/WO CONTRAST | | | | | | completed on 04/03/2009 | | | | | | 8:55 AMAccession # | | | | | | [id number]:MR OF THE | | | | | | PITUITARY: 04/03/2009 | | | | | | Dictated | | | | | | 04/03/2009CLINICAL | | | | | | INFORMATION: One year | | | | | | after medical | | | | | | treatment.Sagittal, | | | | | | axial, and coronal | | | | | | images were obtained | | | | | | through the headwith | | | | | | attention to the sella, | | | | | | and sagittal and coronal | | | | | | images wereobtained | | | | | | after intravenous | | | | | | gadolinium and compared | | | | | | to the MR | | | | | | of03/10/2008.Comparison | | | | | | to the prior study is | | | | | | limited by the absence | | | | | | of coronalT2-weighted | | | | | | images on the prior | | | | | | study. For this | | | | | | sequence, the MR | | | | | | of12/08/2006 is used.The | | | | | | sphenoid sinus is lined | | | | | | by enhancing tissue | | | | | | which extends througha | | | | | | defect in the sphenoid | | | | | | bone and the floor of | | | | | | the sella as on theprior | | | | | | studies. The | | | | | | infundibulum is midline. | | | | | | Enhancing tissue in | | | | | | thesella is less bulky | | | | | | than on the prior study. | | | | | | In the right | | | | | | inferioraspect of the | | | | | | gland, there is a focus | | | | | | of slightly delayed | | | | | | enhancementwhich does | | | | | | enhance homogeneously | | | | | | and is unchanged from | | | | | | the priorstudy. It is | | | | | | subtle.IMPRESSION:IMPRES | | | | | | YOANDY:Slight interval | | | | | | decrease in the overall | | | | | | size of the contents of | | | | | | thesella. Status post | | | | | | transsphenoidal approach | | | | | | to the sella | | | | | | withongoing mucosal | | | | | | inflammation in the | | | | | | sphenoid sinus. Faint | | | | | | subtledelayed | | | | | | enhancement in the | | | | | | inferior aspect of the | | | | | | right side ofgland, | | | | | | unchanged.END | | | | | | IMPRESSION:END | | | | | | IMPRESSIONI have | | | | | | personally viewed this | | | | | | procedure/exam and | | | | | | reviewed this | | | | | | report.Author: Error! | | | | | | AutoText entry not | | | | | | defined. PERFECTO | | | | | | JohanReviewer: ,STATUS | | | | | | FINAL / Dr. CONCETTA Nelson | | | | | | PERFECTOSTATUS | | | | | | PRELIMINARY - UNSIGNED / | | | | | | Sammie Torres | | | | + + + [...]
--- OUTSIDE RECORDS SUMMARY | ~2019-07-14 | XMS | Encounter Summary ---
Demographics + + + | Address | [address] | | | [place] [address] | + + + | Home Phone [...] + + + | Author | [place] [employer] [facility] | + + + | Organization | [facility] | + + + | Address | Unknown | + + + | Phone | Unavailable | + + + Support + + +---------+ + | Name | Relationship | Address | Phone | + + +---------+ + | Alexandria Dixon | ECON | Unknown | | + + +---------+ + Care Team Providers + +------+ + | Care Edging Machine Catcher Name | Role | Phone | + [...] | | | Rosalva Mailcode: CH8N | DNP,[place] [address] | | | | | [facility] | [address] [place], | | | | | and Healing, | [place] [address] | | | | | Building [address] | [phone] | | | | | [place], [place] | | | | | | [address] | | | | | | [phone] | | | +--------+--------+ + + + [...] Rd | | | | | | [place], [place] | | | | | | [address] | | | | | | [phone] | | | | | | | [...]
--- OUTSIDE RECORDS SUMMARY | ~2019-07-14 | XMS | Encounter Summary ---
Demographics + + + | Address | [address] | | | [place] [address] | + + + | Home Phone | | + + + | Preferred Language | Unknown | + + + | Marital Status | Single | + + + | Episcopal Affiliation | NON | + + + | Race | or | + + + | Ethnic Group | Not or | + + + Author + + + | Author | [place] [employer] [facility] | + + + | Organization | [facility] | + + + | Address | Unknown | + + + | Phone | Unavailable | + + + Support + + +---------+ + | Name | Relationship | Address | Phone | + + +---------+ + | Alexandria Dixon | ECON | Unknown | | + + +---------+ + Care Team Providers + +------+ + | Care Diagrammer And Seamer Name | Role | Phone | + +------+ + | No Pcp Per Patient | PCP | Unavailable | + +------+ + Encounter Details +--------+ + + + + | Date | Type | Department | Care Team | Description | +--------+ + + + + | 08/31/ | Orders Only | Neurosurgery at | [place], | Pituitary Adenoma | | 2007 | | [facility] [address] | [place], | ([facility]); 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Ave Mailcode: CH8N | DNP,SENIOR QUALITY CONTROL INSPECTOR,[place] [address] | Hormone Deficiency | | | | [place] for [facility] | [address] [place], | ([facility]); Diabetes | | | | and [facility], | [place] [address] | Insipidus ([facility]); | | | | Building [address] | [phone] | Hypogonadism Male; | | | | [place], [place] | | Hypothyroid; Adrenal | | | | [address]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 ([facility]) | | | | [phone] | | | +--------+ + + + [...] | | 2019 | Visit | | [address] | | | | | | [address] | | | | | | [place], [place] | | | | | | [address] | | | | | | [phone] | | | | | | | | +--------+---------+ + + + + +------+--------+ + + | Name | Type | Priori | Associated Diagnoses | Order Schedule | | | | ty | | | + +------+--------+ + + | [facility] | Lab | Routin | Pituitary Adenoma | Ordered: 08/31/2007 | | VPUNCT | | e | (HCC) | | + +------+--------+ + + documented as of this encounter Procedures + +--------+ + + + | Procedure Name | Priori | Date/Time | Associated Diagnosis | Comments | | | ty | | | | + +--------+ + + + | BASIC METABOLIC SET | Routin | 08/31/2007 | Pituitary Adenoma | Results for this | | (NA, K, CL, TCO2, | e | 3:32 PM | (HCC) Growth | procedure are in the | | BUN, CR, GLU, CA) | | PST | Hormone Deficiency | results section. | | | | | (HCC) Diabetes | | | | | | Insipidus (HCC) | | | | | | Hypogonadism Male | | | | | | Hypothyroid Adrenal | | | |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 (HCC) | | + +--------+ + + + | INSULIN GROWTH | Routin | 08/31/2007 | Pituitary Adenoma | Results for this | | FACTOR-1, SERUM | e | 3:32 PM | (HCC) Growth | procedure are in the | | | | PST | Hormone Deficiency | results section. | | | | | (HCC) Diabetes | | | | | | Insipidus (HCC) | | | | | | Hypogonadism Male | | | | | | Hypothyroid Adrenal | | | |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 (HCC) | | + +--------+ + + + | FREE T4 | Routin | 08/31/2007 | Pituitary Adenoma | Results for this | | | e | 3:32 PM | (HCC) Growth | procedure are in the | | | | PST | Hormone Deficiency | results section. | | | | | (HCC) Diabetes | | | | | | Insipidus (HCC) | | | | | | Hypogonadism Male | | | | | | Hypothyroid Adrenal | | | |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 (HCC) | | + +--------+ + + + | TSH | Routin | 08/31/2007 | Pituitary Adenoma | Results for this | | | e | 3:32 PM | (HCC) Growth | procedure are in the | | | | PST | Hormone Deficiency | results section. | | | | | (HCC) Diabetes | | | | | | Insipidus (HCC) | | | | | | Hypogonadism Male | | | | | | Hypothyroid Adrenal | | | |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 (HCC) | | + +--------+ + + + | TESTOSTERONE, SERUM | Routin | 08/31/2007 | Pituitary Adenoma | Results for this | | | e | 3:32 PM | (HCC) Growth | procedure are in the | | | | PST | Hormone Deficiency | results section. | | | | | (HCC) Diabetes | | | | | | Insipidus (HCC) | | | | | | Hypogonadism Male | | | | | | Hypothyroid Adrenal | | | |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 (HCC) | | + +--------+ + + + documented in this encounter Results INSULIN GROWTH FACTOR-1 (08/31/2007 3:32 PM PST) + + + + + + | Component | Value | Ref Range | Performed | Pathologist | | | | | At | Signature | + + + + + + | IGF-1 | 143Comment: Test | 117 - 329 ng/mL | | | | | performed by [facility] | | | | | | [facility] | | | | + + + + + + + + | Specimen | + + | | + + + + + + + | Performing | Address | City/State/Zipcode | Phone Number | | Organization | | | | + + + + + | [facility] | [address] | [place] [address] | | | LABORATORY | | | | + + + + + TESTOSTERONE (08/31/2007 3:32 PM PST) + +-------+ + + + | Component | Value | Ref Range | Performed | Pathologist | | | | | At | Signature | + +-------+ + + + | TESTOSTERON | 346 | 175 - 781 ng/dl | | | | E, SERUM | | | | | + +-------+ + + + + + | Specimen | + + | | + + + + + | Narrative | Performed At | + + + | Reference Range change effective | | | 05/31/07 [facility]) | | | [facility] [place] [address] | | | [place] [address] | | + + + + + + + + | Performing | Address | City/State/Zipcode | Phone Number | | Organization | | | | + + + + + | [facility] | [address] | [place] [address] | | | LABORATORY | | | | + + + + + TSH-THYROID STIM HORMONE (08/31/2007 3:32 PM PST) + + + + + + | Component | Value | Ref Range | Performed | Pathologist | | | | | At | Signature | + + + + + + | TSH | 0.13 (L) | 0.34 - 5.60 | | [...] | | | [facility] | | | [address] [facility], | | | [place] [address] | | + + + + + + + + | Performing | Address | City/State/Zipcode | Phone Number | | Organization | | | | + + + + + | [facility] | [address] | [place] [address] | | | LABORATORY | | | | + + + + + FREE T4, SERUM (08/31/2007 3:32 PM PST) + +-------+ + + + | Component | Value | Ref Range | Performed | Pathologist | | | | | At | Signature | + +-------+ + + + | FREE T4, | 1.0 | 0.6 - 1.6 ng/dL | | | | SERUM | | | | | + +-------+ + + + + + | Specimen | + + | | + + + + + | Narrative | Performed At | + + + | Reference Range change effective | | | 05/31/07 [facility]) | | | [facility] [place] [address] | | | [place] [address] | | + + + + + + + + | Performing | Address | City/State/Zipcode | Phone Number | | Organization | | | | + + + + + | [facility] | [address] | [place] [address] | | | LABORATORY | | | | + + + + + BASIC METABOLIC SET (08/31/2007 3:32 PM PST) + +-------+ + + + | Component | Value | Ref Range | Performed | Pathologist | | | | | At | Signature | + +-------+ + + + | GLUCOSE, | 78 | 60 - 99 mg/dL | [facility] | | | PLASMA | | | DEPARTMENT | | | (LAB) | | | OF | | | | | | PATHOLOGY | | + +-------+ + + + | BUN, PLASMA | 7 | 6 - 20 mg/dL | [facility] | | | (LAB) | | | DEPARTMENT | | | | | | OF | | | | | | PATHOLOGY | | + +-------+ + + + | CREATININE | 0.8 [...] +-------+ + + + | POTASSIUM, | 3.7 [...] +-------+ + + + | CALCIUM, | 9.0 [...] Performed At | + + + | [id number] Estimated GFR > 60 mL/min/1.73 sq m if non- | [facility] | | [id number] Estimated GFR > 60 mL/min/1.73 sq m [...] | [facility] | [address] | [place] [address] | | | PATHOLOGY | [address] | | | + + + + + | [facility] | [address] | [place] [address] | | | PATHOLOGY | [address] [...]
--- OUTSIDE RECORDS SUMMARY | ~2019-07-14 | XMS | Encounter Summary ---
Demographics + + + | Address | [address] | | | [place] [address] | + + + | Home Phone [...] Author + + + | Author | [place] [employer] [facility] | + + + | Organization | [facility] [...] Team Providers + +------+ + | Care Dormitory Counselor Name | Role | Phone | + [...] Referral (left | | 2018 | | [facility] [address] | Clinic | shoulder) | | | | R[place] Mailcode: CH12A | | | | | | [facility] | | | | | | and Healing, | | | | | | Building | | | | | | Floor [place], [place] | | | | | | [address] | | | | | | [phone] | | | +--------+ + + + [...] for this yet? Yes, when: 07/12/18; where: [facility] Attached MRI Yes, when: 06/18/18; where: [facility] 07/16/18 X-Ray Yes, when: unk; where: [facility] Patient can obtain copy to bring CT No Ultrasound No Other imaging No Type: n/a Insurance to be billed per patient OHP Is this a W/C injury? no If YES, please also complete: .ORTWCNEWPATIENT inside referral For Out of State claims, please make patient aware that we do not take Out of State Worker' s Comp unless their screw machine adjuster automatic can secure [place] rates. Please advise patient to work directly with their screw machine adjuster automatic and if any questions their screw machine adjuster automatic can call us back. Are you a [...] they d like to sign up for [employer] ? Don t forget to pull in CareEveryWhere Additional Comments: n/a documented in this encounte r Plan of Treatment +--------+---------+ + + + | Date | Type | Specialty | Care Team | Description | +--------+---------+ + + + | 08/15/ | Office | Cardiology | Zuleika Hernandez, | | | 2019 | Visit | | [address] | | | | | | [address] | | | | | | [place], [place] | | | | | | [address] | | | | | | [phone] | | | | | | | | +--------+---------+ + + + documented as of this encounter Visit Diagnoses Not on filedocumented in this encounter
--- OUTSIDE RECORDS SUMMARY | ~2019-07-14 | XMS | Encounter Summary ---
Demographics + + + | Address | [address] | | | [place] [address] | + + + | Home Phone [...] + + | Author | [place] [employer] [facility] | + + + | Organization | [facility] | + + + | Address | Unknown | + + + | Phone | Unavailable | + + + Support + + +---------+ + | Name | Relationship | Address | Phone | + + +---------+ + | Alexandria Dixon | ECON | Unknown | | + + +---------+ + Care Team Providers + +------+ + | Care Piece Meat Trimmer Name | Role | Phone | + +------+ + | Jhonyn Rodriguez DO | PCP | | + +------+ + Encounter Details +--------+------+ + + + | Date | Type | Department | Care Team | Description | +--------+------+ + + + | 06/03/ | Lab | Laboratory at [facility] | | Pituitary adenoma | | 2012 | | [address] | | ([facility]); 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[place], [place]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 | | | | [address] | | ([facility]); Diabetes | | | | [phone] | | insipidus ([facility]); | | | | | | [...] | | 2019 | Visit | | [address] | | | | | | [address] | | | | | | [place], [place] | | | | | | [address] | | | | | | [phone] | | | | | | | | +--------+---------+ + + + documented as of this encounter Procedures + +--------+ + + + | Procedure Name | Priori | Date/Time | Associated Diagnosis | Comments | | | ty | | | | + +--------+ + + + | BASIC METABOLIC SET | Routin | 06/03/2013 | Pituitary adenoma | Results for this | | (NA, K, CL, TCO2, | e | 1:31 PM | (HCC) Growth | procedure are [...] + | INSULIN GROWTH | Routin | 06/03/2013 | Pituitary adenoma | Results for this | | FACTOR-1, SERUM | e | 1:31 PM | (HCC) Growth | procedure are [...] + | FREE T4 | Routin | 06/03/2013 | Pituitary adenoma | Results for this | | | e | 1:31 PM | (HCC) Growth | procedure are [...] + + | PROLACTIN | Routin | 06/03/2013 | Pituitary adenoma | Results for this | | | e | 1:31 PM | (HCC) Growth | procedure are [...] + + | TSH | Routin | 06/03/2013 | Pituitary adenoma | Results for this | | | e | 1:31 PM | (HCC) Growth | procedure are [...] + | TESTOSTERONE, SERUM | Routin | 06/03/2013 | Pituitary adenoma | Results for this | | | e | 1:31 PM | (HCC) Growth | procedure are [...] + documented in this encounter Results TSH (06/03/2013 1:31 PM [...] + | [facility] | [address] | [place] [address] | | | [place] | | | [...] + | [facility] | [address] | [place] [address] | | | [place] | | | [...] + | [facility] | [address] | [place] [address] | | | [place] | | | [...] + | [facility] | [address] | [place] [address] | | | [place] | | | | + + + [...] + | [facility] | [address] | [place] [address] | | | [place] | | | [...] | + + + + + | [facility] | [address] | [place] [address] | | | SERVICES, CORE | [address] [...]
--- OUTSIDE RECORDS SUMMARY | ~2019-07-14 | XMS | Encounter Summary ---
Demographics + + + | Address | [address] | | | [place] [address] | + + + | Home Phone [...] + + + | Author | [place] [employer] [facility] | + + + | Organization | [facility] | + + + | Address | Unknown | + + + | Phone | Unavailable | + + + Support + + +---------+ + | Name | Relationship | Address | Phone | + + +---------+ + | Alexandria Dixon | ECON | Unknown | | + + +---------+ + Care Team Providers + +------+ + | Care Packaging Materials Inspector Name | Role | Phone | [...] 09/16/ | Refill | Neurosurgery at | [place], | Refill Request | | 2019 | | [facility] [address] | [place], | | | | | [place] Mailcode: CH8N | DNP,MORTGAGE CONSULTANT,[place] [address] | | | | | [facility] | [address] [place], | | | | | and Healing, | [place] [address] | | | | | Building [address] | [phone] | | | | | [place], [place] | | | | | | [address] | | | | | | [phone] | | | +--------+--------+ + + + [...] Rd | | | | | | [place], [place] | | | | | | [address] | | | | | | [phone] | | | | | | | | +--------+---------+ + + + documented as of this encounter Visit Diagnoses + + | Diagnosis | + + | Panhypopituitarism (HCC) Panhypopituitarism | + + documented in this encounter"
--- OUTSIDE RECORDS SUMMARY | ~2019-07-14 | XMS | Encounter Summary ---
Demographics + + + | Address | [address] | | | [place] [address] | + + + | Home Phone | | + + + | Preferred Language | Unknown | + + + | Marital Status | Single | + + + | Gnosticist Affiliation | NON | + + + | Race | or | + + + | Ethnic Group | Not or | + + + Author + + + | Author | [place] [employer] [facility] | + + + | Organization | [facility] | + + + | Address | Unknown | + + + | Phone | Unavailable | + + + Support + + +---------+ + | Name | Relationship | Address | Phone | + + +---------+ + | Alexandria Dixon | ECON | Unknown | | + + +---------+ + Care Team Providers + +------+ + | Care Kennel Attendant Name | Role | Phone | [...] | | | | | adenoma | DNP,MANUFACTURING ENGINEER,[place] | Kit Tanner | | | | | (HCC) | [address] | | | | | Procedures | Ave | Mailcode: | | | | | MRI | [facility] [place] | [address] | | | | | PITUITARY | [address] | [place] | | | | | WWO CONTRAST | Phone: | Research | | | | | HI MRI | [phone] | [place] | | | | | BRAIN COMBO | Fax: | [place], [place] | | | | | | [phone] | [address] | | | | | | | Phone: | | | | | | | [phone] | | | | | | | Fax: | | | | | | | [phone] | +--------+--------+ + + + + Reason for Visit +--------+ + | Reason | Comments | +--------+ + | Other | | +--------+ + Encounter Details +--------+ + + + + | Date | Type | Department | Care Team | Description | +--------+ + + + + | 12/12/ | Telephone | Neurosurgery at | Donnie, | | | 2013 | | [facility] [address] | Cathie, | | | | | [place] Mailcode: [id number] | DNP,MANUFACTURING ENGINEER,[place] [address] | | | | | [facility] | [address] [place], | | | | | and Healing, | [place] [address] | | | | | Building [address] | [phone] | | | | | [place], [place] | | | | | | [address] | | | | | | [phone] | | | +--------+ + + + [...] | | 2019 | Visit | | [address] | | | | | | [address] | | | | | | [place], [place] | | | | | | [address] | | | | | | [phone] | | | | | | | | +--------+---------+ + + + documented as of this encounter Results MRI PITUITARY WWO CONTRAST [...] | | + +---------+ + + | [facility] DEPARTMENT OF | | | | | RADIOLOGY | | | | + +---------+ + + documented in this encounter Visit Diagnoses + + | Diagnosis | + + | Pituitary adenoma (HCC) - Primary Benign neoplasm of pituitary gland and | | craniopharyngeal duct (pouch) | + + documented in this encounter"
--- OUTSIDE RECORDS SUMMARY | ~2019-07-14 | XMS | Encounter Summary ---
Demographics + + + | Address | [address] | | | [place] [address] | + + + | Home Phone | | + + + | Preferred Language | Unknown | + + + | Marital Status | Single | + + + | Methodist Affiliation | Unknown | + + + | Race | Unknown | + + + | Ethnic Group | Unknown | + + + Author + + + | Author | [facility] | | | and [place] | + + + | Organization | [facility] | | | and [place] [...] Team Providers + +------+ + | Care Veneer Supervisor Name | Role | Phone | + +------+ + PCP | Unavailable | + +------+ + Encounter Details +--------+ + + + + | Date | Type | Department | Care Team | Description | +--------+ + + + + | 11/15/ | Hospital | [facility] | Moiz Raza | | | 2010 | Encounter | MED CTR XRAY [address] | | | | | [address] [place] | [address] [place], [place] | | | | | [place] [address] | [id number] | | | | | [phone] | | | +--------+ + + + [...] 2020 | Visit | | [address] | | | | | | [place] | | | | | | [address] | | | | | | | [...] Performed At | + + + | [facility] Diagnostic Imaging Department | [facility] | | [address] | [facility] | | THORACIC SPINE MR WITH AND [...] Transcribed Date/Time: 11/16/2010 12:00 | | | Sap Security Consultant: <Electronically Signed by Leopoldo Escobar | | | MD Jasson> 11/18/10 0854 | | + + + + + | Procedure Note | + + | Alonzo Trevizo Conversion - 09/16/2013 2:[address] [facility] | | Diagnostic Imaging Department [address] [place] | | THORACIC SPINE MR WITH AND [...] 16:25 Transcribed Date/Time: | | 11/16/2010 12:00 Sap Security Consultant: <Electronically Signed by Leopoldo Spaulding, | | [...] 16:25 | |Transcribed Date/Time: 11/16/2010 12:00 | |Sap Security Consultant: | |<Electronically Signed by Leopoldo Spaulding MD> [...]
--- OUTSIDE RECORDS SUMMARY | ~2019-07-14 | XMS | Encounter Summary ---
Demographics + + + | Address | [address] | | | [place] [address] | + + + | Home Phone [...] + + + | Author | [place] [employer] [facility] | + + + | Organization | [facility] | + [...] Team Providers + +------+ + | Care Target Man Name | Role | Phone | + +------+ + | No Pcp Per Patient | PCP | Unavailable | + +------+ + Reason for Visit + + + | Reason | Comments | + + + | Headache | x 2 months | + + + | Follow-up in | | | outpatient clinic | | + + + Encounter Details +--------+---------+ + + + | Date | Type | Department | Care Team | Description | +--------+---------+ + + + | 04/03/ | Office | Neurosurgery [address] | Jaylin Hou, | Sphenoid Sinusitis | | 2005 | Visit | [address] | [place] [address] | (Primary Dx) | | | | Rd Mailcode:OP14B | [address] | | | | | [facility] | [place] [address] | | | | | [place], [place] | | | | | | [address] | | | | | | [phone] | | | +--------+---------+ + + + [...] + + + | Blood Pressure | 118/80 | 04/03/2006 2:01 PM | | | | | PDT | | + + + + + | Pulse | 60 | 04/03/2006 2:01 PM | | | | | PDT | | + + + + + | Temperature | - | - | | + + + + + | Respiratory Rate | 16 | 04/03/2006 2:01 PM | | | | | PDT | | + + + + + | Oxygen Saturation | - | - | | + + + + + | Inhaled Oxygen | - | - | | | Concentration | | | | + + + + + | Weight | 122.9 kg (271 lb) | 04/03/2006 2:01 PM | | | | | PDT | | + + + + + | Height | 171.5 cm (5' 7.5") | 04/03/2006 2:01 PM | | | | | PDT | | + + + + + | Body Mass Index | 41.82 | 04/03/2006 2:01 PM | | | | | PDT | | + + + + + documented in this encounter Progress Notes Jaylin Hou - 04/03/2006 3:25 PM PDTS: Pt presents today for routine f/u post TPH for macroadenoma and CSF leak repair. Has been having chronic HAs since surgery. Being followed by Endocrine for hormonal issues. Was seen by Dr Jhonny Schmitt in ENT and dxd with sinusitis. G iven rx for Avelox x21 days. Requesting refill of Vicodin today. O: WDWN male, NAD, alert, approp, VSS Neuro: CNII - XII intact, no dysmetria, no obvious CSF leak A: S/P TPH for pituitary macroadenoma - acute sinusitis but otherwise doing well P: 1. Advised pt on findings and recommendations 2. Continue with antibx as prescribed 3. RTC in 1 mo for recheck of symptoms. 4. Pt understood instructions and will f/u as directed. documented in this encounter Plan of Treatment +--------+---------+ + + + | Date | Type | Specialty | Care Team | Description | +--------+---------+ + + + | 08/15/ | Office | Cardiology | Zuleika Hernandez, | | | 2019 | Visit | | [address] | | | | | | [address] | | | | | | [place], [place] | | | | | | [address] | | | | | | [phone] | | | | | | | | +--------+---------+ + + + + +---------+--------+ + + | Name | Type | Priori | Associated Diagnoses | Order Schedule | | | | ty | | | + +---------+--------+ + + | CT SINUSES WO | Imaging | Routin | Sphenoid Sinusitis | Ordered: 04/03/2006 | | CONTRAST | | e | | | + +---------+--------+ + + documented as of this encounter Visit Diagnoses + + | Diagnosis | + + | Sphenoid sinusitis - Primary Chronic sphenoidal sinusitis | + + documented in this encounter
--- OUTSIDE RECORDS SUMMARY | ~2019-07-14 | XMS | Encounter Summary ---
Demographics + + + | Address | [address] | | | [place] [address] | + + + | Home Phone | | + + + | Preferred Language | Unknown | + + + | Marital Status | Single | + + + | Samaritan Affiliation | NON | + + + | Race | or | + + + | Ethnic Group | Not or | + + + Author + + + | Author | [place] [employer] [facility] | + + + | Organization | [facility] | + + + | Address | Unknown | + + + | Phone | Unavailable | + + + Support + + +---------+ + | Name | Relationship | Address | Phone | + + +---------+ + | Alexandria Dixon | ECON | Unknown | | + + +---------+ + Care Team Providers + +------+ + | Care Engineering Documentation Specialist Name | Role | Phone | [...] n | Abdoulaye Mailcode: [id number] | [address] [place], [place] | | | | | [place], [place] | [address] | | | | | [address] | | | | | | [phone] | | | +--------+ + + + [...] | | 2019 | Visit | | [address] | | | | | | [address] | | | | | | [place], [place] | | | | | | [address] | | | | | | [phone] | | | | | | | | +--------+---------+ + + + documented as of this encounter Visit Diagnoses Not on filedocumented in this encounter"
--- OUTSIDE RECORDS SUMMARY | ~2019-07-14 | XMS | Encounter Summary ---
Demographics + + + | Address | [address] | | | [place] [address] | + + + | Home Phone [...] + + + | Author | [place] [employer] [facility] | + + + | Organization | [facility] [...] Providers + +------+ + | Care Manager University Name | Role | Phone | + [...] | +--------+ + + + + | 03/28/ | Telephone | Neurosurgery at | [place], | Refill Request | | 2012 | | [facility] [address] | Cathie, | | | | | [place] Mailcode: CH8N | DNP,UTILITY OPERATOR [place] [address] | | | | | [facility] | [address] [place], | | | | | and Healing, | [place] [address] | | | | | Building [address] | [phone] | | | | | [place], [place] | | | | | | [address] | | | | | | [phone] | | | +--------+ + + + [...] Rd | | | | | | [place], [place] | | | | | | [address] | | | | | | [phone] | | | | | | | | +--------+---------+ + + + documented as of this encounter Visit Diagnoses Not on filedocumented in this encounter"
--- OUTSIDE RECORDS SUMMARY | ~2019-07-14 | XMS | Encounter Summary ---
Demographics + + + | Address | [address] | | | [place] [address] | + + + | Home Phone [...] + + + | Author | [place] [employer] [facility] | + + + | Organization | [facility] [...] Team Providers + +------+ + | Care Parking Line Painter Name | Role | Phone | + +------+ + | No Pcp Per Patient | PCP | Unavailable | + +------+ + Encounter Details +--------+ + + + + | Date | Type | Department | Care Team | Description | +--------+ + + + + | 06/22/ | Documentati | Neurology at | Lynda Calvillo, | | | 2008 | on | [facility] & | MD | | | | | [address] | | | | | | [address] Mailcode: | | | | | | [facility] | | | | | | Health and Healing, | | | | | | Building | | | | | | [place], [place] | | | | | | [address] | | | | | | [phone] | | | +--------+ + + + [...] | | 2019 | Visit | | [address] | | | | | | [address] | | | | | | [place], [place] | | | | | | [address] | | | | | | [phone] | | | | | | | | +--------+---------+ + + + documented as of this encounter Visit Diagnoses Not on filedocumented in this encounter"
--- OUTSIDE RECORDS SUMMARY | ~2019-07-14 | XMS | Encounter Summary ---
Demographics + + + | Address | [address] | | | [place] [address] | + + + | Home Phone | | + + + | Preferred Language | Unknown | + + + | Marital Status | Single | + + + | Mu-Ism Affiliation | Unknown | + + + | Race | Unknown | + + + | Ethnic Group | Unknown | + + + Author + + + | Author | [facility] | | | and [place] | + + + | Organization | [facility] | | | and [place] [...] Team Providers + +------+ + | Care Hairspring Inspector Name | Role | Phone | [...] + | 11/13/ | Telephone | [facility] | Sumanth Champion [place] | No Show | | 2017 | | SLEEP DISORDER [address] | [address] | | | | | [address] [place] | [place], [place] | | | | | [place] [address] | [address] | | | | | [phone] | | | +--------+ + + + [...] 2020 | Visit | | [address] | | | | | | [place] | | | | | | [address] | | | | | | | | +--------+---------+ + + + documented as of this encounter Visit Diagnoses Not on filedocumented in this encounter"
--- OUTSIDE RECORDS SUMMARY | ~2019-07-14 | XMS | Encounter Summary ---
Demographics + + + | Address | [address] | | | [place] [address] | + + + | Home Phone [...] + + + | Author | [place] [employer] [facility] | + + + | Organization | [facility] | + + + | Address | Unknown | + + + | Phone | Unavailable | + + + Support + + +---------+ + | Name | Relationship | Address | Phone | + + +---------+ + | Alexandria Dixon | ECON | Unknown | | + + +---------+ + Care Team Providers + +------+ + | Care Pillowcase Turner Name | Role | Phone | + [...] Refill Request | | 2013 | | [facility] [address] | [place], | | | | | [place] Mailcode: CH8N | DNP,COLLECTION ADMINISTRATOR,[place] [address] | | | | | [facility] | [address] [place], | | | | | and Healing, | [place] [address] | | | | | Building [address] | [phone] | | | | | [place], [place] | | | | | | [address] | | | | | | [phone] | | | +--------+--------+ + + + [...] Rd | | | | | | [place], [place] | | | | | | [address] | | | | | | [phone] | | | | | | | [...]
--- OUTSIDE RECORDS SUMMARY | ~2019-07-14 | XMS | Encounter Summary ---
Demographics + + + | Address | [address] | | | [place] [address] | + + + | Home Phone [...] + + | Author | [place] [employer] [facility] | + + + | Organization | [facility] | + + + | Address | Unknown | + + + | Phone | Unavailable | + + + Support + + +---------+ + | Name | Relationship | Address | Phone | + + +---------+ + | Alexandria Dixon | ECON | Unknown | | + + +---------+ + Care Team Providers + +------+ + | Care Dividing Machine Operator Helper Name | Role | Phone | + +------+ + | No Pcp Per Patient | PCP | Unavailable | + +------+ + Encounter Details +--------+ + + + + | Date | Type | Department | Care Team | Description | +--------+ + + + + | 12/23/ | Office | [facility], | Clinic, Pituitary | Progress Note | | 2005 | Visit-Trans | DIABETES & | | | | | cribed | METABOLISM | | | +--------+ + + + [...] as of this encounter Progress Notes Interface, Rubber Moulding Machine Operator In - 12/29/2005 2:03 AM [facility] [id number] TOREY TRIVEDI V [id number] Clinic Date: 12/23/2005 Clinic: Pituitary Clinic Referring Physician: Shravan Montanez M.D. 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 This visit is staffed by Dr. Lb Guillaume. 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 He is known to have panhypopituitarism and with diabetes insipidus. At this visit, he notes he has persistent right-sided headaches. Denies any other symptoms, he indicates it is usually controlled with ibuprofen and has some brittle finger nails, tremor, difficulty with memory/concentration, and weight mostly around his midsection. He has problems with poor wound healing. He notes some increased thirst about 2 o'clock in the afternoon and increased urination, which interrupt his work day and has noted to have had a fracture in his left hand which occurred sometime in the last 12 months period. He notes he has had some difficulty with high blood pressure and blood sugar, which are being followed by his primary care provider and notes he snores, however, he has had no diagnosis of sleep apnea. Exact date of onset of symptoms is unknown. Review of Systems: Negative other than stated above. Medications: Testosterone 5 mg daily; levothyroxine 175 mcg q. day; hydrocortisone 30 mg q. day, 20 mg q.a.m., 10 mg q.p.m.; DDAVP 0.4 mg nightly and 0.2 mg q.a.m. Physical Examination: It is unchanged from previous visit. Vital Signs: Weight is 280 pounds. Laboratory Data: Labs pending: Testosterone level and growth hormone stimulation test. Assessment/Discussion: Amairani Tyler is a 25-year-old male who is 3 months status post transsphenoidal resection of a pituitary macro lesion on September 15, 2005, by Dr. Reuben Styles. 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 We spent some time discussing growth hormone replacement and treatment, risks and benefits and titration of growth hormone. His significant other had multiple questions, which we answered to their satisfaction, and we spent some time discussing his symptoms with respect to growth hormone replacement and treatment and concerns for regrowth of tumor and long-term followup. Plan: 1. Testosterone. We will adjust testosterone replacement therapy ( ) pending current level. If dosage is changed, the patient will return in 6 weeks for followup level. 2. Growth hormone. IGF-1 was low. The patient returns for growth hormone stimulation test with the view of beginning growth hormone replacement therapy if he is determined to be deficient. Based on the patient's symptoms, anticipate damage ( ) to this axis from microadenoma. 3. Followup with primary care physician. The patient will return to PCP for followup of hypertension and hypoglycemia. Procedure Note: In addition to my consultation, I performed a combination of arginine and growth hormone releasing hormone-stimulation test to test the growth hormone deficiency in light of the patient's pituitary symptoms. Risks and benefits of the procedure were discussed with the patient and questions were answered. The patient fasted from midnight on December 22, 2005. An IV was placed in the patient's hand, and baseline growth hormone levels were drawn. Then, 150 mcg of Geref solution was prepared by reconstituting 350 mcg of lyophilized Geref with a total of 6 mL of normal saline for a concentration of 25 mcg/mL and a dose of 127 mcg or 1 mcg/kg based on his weight of 127 kg was administered to the patient. An infusion of arginine 30 gm was administered by pump over a 30-minute period. Blood was drawn for growth hormone levels at 30, 60, 90, and 120 minutes. The IV was then removed and site dressed. There were no adverse effects or events. I spent 30 minutes in evaluation of this patient 2-1/2 hours in dynamic endocrine testing. Total time of visits was three hours of which over 50% was spent in coordination of this patient's care. Judy Landa M.D., Ph.D. / [id number] / [id number] / [id number] / [id number] cc: Shravan Montanez M.D. [address] [place] [address] Electronically signed by Lb Guillaume (Bill) 12-28-2005 10:22:55 PM documented ivonne n this encounter Plan of Treatment +--------+---------+ + + + | Date | Type | Specialty | Care Team | Description | +--------+---------+ + + + | 08/15/ | Office | Cardiology | Zuleika Hernandez, | | | 2019 | Visit | | [address] | | | | | | [address] | | | | | | [place], [place] | | | | | | [address] | | | | | | [phone] | | | | | | | | +--------+---------+ + + + documented as of this encounter Visit Diagnoses Not on filedocumented in this encounter"
--- OUTSIDE RECORDS SUMMARY | ~2019-07-14 | XMS | Encounter Summary ---
Demographics + + + | Address | [address] | | | [place] [address] | + + + | Home Phone | | + + + | Preferred Language | Unknown | + + + | Marital Status | Single | + + + | Taoism Affiliation | NON | + + + | Race | or | + + + | Ethnic Group | Not or | + + + Author + + + | Author | [place] [employer] [facility] | + + + | Organization | [facility] | + + + | Address | Unknown | + + + | Phone | Unavailable | + + + Support + + +---------+ + | Name | Relationship | Address | Phone | + + +---------+ + | Alexandria Dixon | ECON | Unknown | | + + +---------+ + Care Team Providers + +------+ + | Care Gas Regulator Repairer Name | Role | Phone | + +------+ + | Priscilla Ramírez PA-C | PCP | | + +------+ + Encounter Details +--------+ + + + + | Date | Type | Department | Care Team | Description | +--------+ + + + + | 04/19/ | Abstract | Cardiology in | Zuleika Hernandez, | | | 2018 | | [facility] | [address] | | | | | [place] at | [address] | | | | | [place] [address] | [place], [place] | | | | | [address] | [address] | | | | | [place], [place] | [phone] | | | | | [address] | | | | | | [phone] | | | +--------+ + + + [...] Rd | | | | | | [place], [place] | | | | | | [address] | | | | | | [phone] | | | | | | | | +--------+---------+ + + + documented as of this encounter Visit Diagnoses Not on filedocumented in this encounter"
--- OUTSIDE RECORDS SUMMARY | ~2019-07-14 | XMS | Clinical Summary ---
Demographics + + + | Address | [address] | | | [place] [address] | + + + | Home Phone | | + + + | Preferred Language | Unknown | + + + | Marital Status | Single | + + + | Yazidism Affiliation | Unknown | + + + | Race | Unknown | + + + | Ethnic Group | Unknown | + + + Author + + + | Author | [facility] | | | and [place] | + + + | Organization | [facility] | | | and [...] Team Providers + +------+ + | Care Subeditor Name | Role | Phone | + +------+ + | Priscilla Ramírez PA-C | PCP | | + +------+ + Allergies + [...] | + + + + + + Medications + + + +---------+------+------+-------+ | Medication | Sig | Dispensed | Refills | Star | End | Statu | | | | | | t | Date | s | | | | | | Date | | | + + + +---------+------+------+-------+ | metoprolol | Take 25 mg by mouth | | 0 | 04/10 | | Activ | | tartrate (LOPRESSOR) | Daily. | | | 10/27 | | e | | 25 mg tablet | | | | 12 | | | + + + +---------+------+------+-------+ +---+ + | | Additional | | | informationPatient | | | taking differently: | | | 100 mg Oral 2 TIMES | | | DAILY, Reason: Not | | | Available, Reported | | | on 06/08/2018 10:30 | | | AM | +---+ + + + +---+---+------+---+-------+ | atorvaSTATin | Take 40 mg by mouth | | 0 | 04/10 | | Activ | | (LIPITOR) 40 mg | Daily. | | | 10/27 | | e | | tablet | | | | 12 | | | + + +---+---+------+---+-------+ +---+ + | | Additional | | | informationPatient | | | taking differently: | | | 80 mg Oral DAILY, | | | Reported on 02/13/2015 | | | 2:21 PM | +---+ + + + +---+---+------+---+-------+ | desmopressin | Take 0.2 mg by mouth | | 0 | | | Activ | | (DDAVP) [...] | | | | | + + +---+---+------+---+-------+ | levothyroxine | Take 125 mcg by | | 0 | | | Activ | | (SYNTHROID, | mouth every morning | | | | | e | | LEVOTHROID) 175 MCG | (before breakfast). | | | | | | | tablet | | | | | | | + + +---+---+------+---+-------+ | Somatropin, | Inject 0.8 mg under | | 0 | | | Activ | | Non-Refrigerated, 5 | the skin Daily. | | | | | e | | MG SOLR | | | | | | | + + +---+---+------+---+-------+ | hydrocortisone | Take 25 mg by mouth | | 0 | | | Activ | | (CORTEF) 20 MG | Daily. | | | | | e | | tablet | | | | | | | + + +---+---+------+---+-------+ | metFORMIN | Take 500 mg by mouth | | 0 | | | Activ | | (GLUCOPHAGE) 500 mg | 2 times daily (with | | | | | e | | tablet | breakfast & | | | | | | | | dinner). | | | | | | + + +---+---+------+---+-------+ | promethazine | Take 25 mg by mouth | | 0 | | | Activ | | (PHENERGAN) 25 mg | every 6 hours as | | | | | e | | tablet | needed. | | | | | | + + +---+---+------+---+-------+ | | Take 1 tablet by | | 0 | | | Activ | | HYDROcodone-acetamin | mouth every 4 hours | | | | | e | | ophen (NORCO) 10-325 | as needed. | | | | | | | mg per tablet | | | | | | | + + +---+---+------+---+-------+ | Cholecalciferol | Take 7,000 Int'l | | 0 | | | Activ | | (VITAMIN D-3 PO) | Units by mouth | | | | | e | | | Daily. | | | | | | + + +---+---+------+---+-------+ | hydrocortisone | Take 5 mg by mouth | | 0 | | | Activ | | (CORTEF) 5 MG tablet | Daily. | | | | | e | + + +---+---+------+---+-------+ | aspirin 81 mg EC | Take 81 mg by mouth | | 0 | | | Activ | | tablet | Daily. | | | | | e | + + +---+---+------+---+-------+ | fenofibrate | Take 145 mg by mouth | | 0 | | | Activ | | (TRICOR) 145 mg | Daily. | | | | | e | | tablet | | | | | | | + + +---+---+------+---+-------+ | clopidogrel | Take 75 mg by mouth | | 0 | | | Activ | | (PLAVIX) 75 mg | Daily. | | | | | e | | tablet | | | | | | | + + +---+---+------+---+-------+ | amLODIPine | Take 10 mg by mouth | | 0 | | | Activ | | (NORVASC) 10 MG | Daily. | | | | | e | | tablet | | | | | | | + + +---+---+------+---+-------+ | ALPRAZolam (XANAX) | Take 0.5 mg by mouth | | 0 | | | Activ | | 0.5 mg tablet | 3 times daily as | | | | | e | | | needed for Anxiety. | | | | | | + + +---+---+------+---+-------+ | sertraline | Take 75 mg by mouth | | 0 | | | Activ | | (ZOLOFT) 50 mg | Daily. | | | | | e | | tablet | | | | | | | + + +---+---+------+---+-------+ | cyclobenzaprine | Take 10 mg by mouth | | 0 | | | Activ | | (FLEXERIL) 10 mg | 3 times daily as | | | | | e | | tablet | needed for Muscle | | | | | | | | spasms. | | | | | | + + +---+---+------+---+-------+ | fexofenadine | Take 180 mg by mouth | | 0 | | | Activ | | (ADINA) 180 mg | as needed. | | | | | e | | tablet | | | | | | | + + +---+---+------+---+-------+ | ranolazine | Take 500 mg by mouth | | 0 | | | Activ | | (RANEXA) 500 mg 12 | 2 times daily. | | | | | e | | hr tablet | | | | | | | + + +---+---+------+---+-------+ | testosterone | Inject 200 mg into | | 0 | | | Activ | | cypionate | the muscle every 14 | | | | | e | | (DEPO-TESTOSTERONE) | days. | | | | | | | 200 mg/mL injection | | | | | | | + + +---+---+------+---+-------+ | lisinopril | Take 40 mg by mouth | | 0 | | | Activ | | (PRINIVIL,ZESTRIL) | Daily. | | | | | e | | 40 MG tablet | | | | | | | + + +---+---+------+---+-------+ | pseudoePHEDrine | Take 60 mg by mouth | | 0 | | | Activ | | (SUDAFED) 60 MG | Daily as needed for | | | | | e | | tablet | Congestion. | | | | | | + + +---+---+------+---+-------+ | hydrocortisone, | Inject 50 mg into | | 0 | | | Activ | | PF, (SOLU-CORTEF) 50 | the vein as needed | | | | | e | | mg/mL injection | (adrenal shock). | | | | | | + + +---+---+------+---+-------+ | atorvaSTATin | | | 0 | 02/0 | | Activ | | (LIPITOR) 80 MG | | | | 7/20 | | e | | tablet | | | | 19 | | | + + +---+---+------+---+-------+ | levothyroxine | | | 0 | 08/1 | | Activ | | (SYNTHROID) 125 mcg | | | | 3/20 | | e | | tablet | | | | 18 | | | + + +---+---+------+---+-------+ | | hydrocodone 10 | | 0 | | | Activ | | HYDROcodone-acetamin | mg-acetaminophen 325 | | | | | e | | ophen (NORCO) 10-325 | mg tablet Take 1 | | | | | | | mg per tablet | tablet every 4 hours | | | | | | | | by oral route prn | | | | | | | | pain for 25 days. | | | | | | + + +---+---+------+---+-------+ | metoprolol | | | 0 | 02/0 | | Activ | | tartrate (LOPRESSOR) | | | | 7/20 | | e | | 100 mg tablet | | | | 19 | | | + + +---+---+------+---+-------+ | ASPIRIN LOW DOSE | | | 0 | 03/1 | | Activ | | 81 MG chewable | | | | 2/20 | | e | | tablet | | | | 19 | | | + + +---+---+------+---+-------+ | azithromycin | | | 0 | 07/0 | | Activ | | (ZITHROMAX) 250 mg | | | | 8/20 | | e | | tablet | | | | 19 | | | + + +---+---+------+---+-------+ | hydrOXYzine | | | 0 | 04/2 | | Activ | | hydrochloride | | | | 5/20 | | e | | (ATARAX) 25 mg | | | | 19 | | | | tablet | | | | | | | + + +---+---+------+---+-------+ | B-D ULTRAFINE III | | | 0 | 02/2 | | Activ | | SHORT PEN 31G X 8 MM | | | | 0/20 | | e | | | | | | 19 | | | + + +---+---+------+---+-------+ | naproxen | | | 0 | 05/1 | | Activ | | (NAPROSYN) 500 mg | | | | 3/20 | | e | | tablet | | | | 19 | | | + + +---+---+------+---+-------+ | | | | 0 | 03/2 | | Activ | | mnxyqpsc-pbkdqkyvu-x | | | | 6/20 | | e | | examethasone | | | | 19 | | | | (MAXITROL) | | | | | | | | 3.5-46591-4.1 | | | | | | | | ophthalmic | | | | | | | | suspension | | | | | | | + + +---+---+------+---+-------+ | SUDOGEST 30 MG | | | 0 | 07/0 | | Activ | | tablet | | | | 8/20 | | e | | | | | | 19 | | | + + +---+---+------+---+-------+ Active Problems + + + | Problem | Noted Date | + + + | Coronary artery disease of [place] artery of [place] heart 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 Last | | [facility] 04/2017 in the setting of NSTEMI demonstrated PIGSKIN TRIMMER RCA with | | collateral flow from [...] | | control as per PCP and manager mechanical-- BP well controlled today | + + [...] + + | Type 2 diabetes mellitus | 07/19/2018 | + + + | [...] Overview: Last Assessment & Plan: 2V-CAD, Hx [place], Hx | | PCI/stent, LVEF 60-65%. 36yo M, known to have coronary | | disease, distant infarction, angioplasty and stenting. 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 He going | | to follow up with [facility] Aug 14. He also had cath report prior to | | procedure which had shown 2 vessel coronary artery disease with | | moderate disease to that proximal to mid LAD, stent to left CX, | | chronically occluded RCA with txpy-qj-akmpp collaterals. | | Suggestion had been for [...] | | circumflex, chronically occluded RCA with [id number]-bz-edgcz | | collaterals. Suggestion for surgery: saphenous vein graft to | | RCA.Last Echo, 05/22/[address] ([facility]): LVEF 60-65%, | | significant WMA, 7-8mm mass LV-side of posterior Mitral leaflet, | | no MR, trace TR.Last Stress Test, 10/03/2014: [place], | | infero-apical ischemia, LVEF 54%.ECG, 07/02/2016: sinus rhythm, | | 63bpm, old inferior [place]. | + + + + + | [...] Pituitary adenoma, followed | | by [facility], associated with hypogonadism, hypothyroidism, diabetes | | insipidus, and adrenal insufficiency. 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 | + + Last Filed Vital Signs + + + + + | Vital Sign | Reading | Time Taken | Comments | + + + + + | Blood Pressure | 124/74 | 09/28/2018 1:43 PM | | | | | PST | | + + + + + | Pulse | 58 | 09/28/2018 1:43 PM | | | | | PST | | + + + + + | Temperature | 36.6 C (97.9 F) | 06/09/2018 11:00 AM | | | | | PDT | | + + + + + | Respiratory Rate | 16 | 09/28/2018 1:43 PM | | | | | PST | | + + + + + | Oxygen Saturation | 97% | 09/28/2018 1:43 PM | | | | | PST | | + + + + + | Inhaled Oxygen | - | - | | | Concentration | | | | + + + + + | Weight | 122 kg (268 lb 15.4 | 09/28/2018 1:43 PM | | | | oz) | PST | | + + + + + | Height | 172.7 cm (5' 8") | 09/28/2018 1:43 PM | | | | | PST | | + + + + + | Body Mass Index | 40.9 | 09/28/2018 1:43 PM | | | | | PST | | + + + + + Plan of Treatment [...] [place] | | | | | | [address] | | | | | | | | +--------+---------+ + + + + + + + + | Health Maintenance | Due Date | Last Done | Comments | + + + + + | Vaccine: | | | | | Pneumococcal 19-64 | 5 | | | | (1 of 1 - PPSV23) | | | | + + + + + | Diabetic Eye Exam | | | | | | 7 | | | + + + + + | Diabetic Foot Exam | | | | | | 7 | | | + + + + + | Hemoglobin A1c | | | | | Screening | 7 | | | + + + + + | Vaccine: | | | | | Dtap/Tdap/Td (1 - | 8 | | | | Tdap) | | | | + + + + + | Vaccine: Influenza | | 2018 | | | (#1) | 9 | | | + + + + + Results Not on filefrom Last 3 Months Insurance + +--------+ +--------+ +---------+--------+ | Payer | Benefi | Subscriber | Effect | Phone | Address | Type | | | t Plan | ID | deanne | | | | | | / | | Dates | | | | | | Group | | | | | | + +--------+ +--------+ +---------+--------+ | [employer] | [employer]A | [id number] | | [phone] | | Medica | | MEDICAID HMO | HEALTH | | 018-Pr | 1 | | id | | | MDCD | | esent | | | | | | [place] | | | | | | + +--------+ +--------+ +---------+--------+ | [facility] | IHS | [id number] | | | | Indemn | | SERVICE | YELLOW | | 013-Pr | | | ity | | | HAWK | | esent | | | | + +--------+ +--------+ +---------+--------+ + +--------+ +--------+ + + | Guarantor Name | Accoun | Relation to | Date | Phone | Billing Address | | | t Type | Patient | of | | | | | | | | | | + +--------+ +--------+ + + | Amairani Tyler | Person | Self | [birth year] | [address] | | | al/Fam | | 1980 | [phone] | [place] | | | luli | | | [address] (Home) | [address] | + +--------+ +--------+ + + Advance Directives + + + + + | Type | Date Recorded | Patient | Explanation | | | | Boxing Instructor | | + + + + + | Power of | | | | | Analytics Senior Manager | | | | + + + + + | Advance | 07/25/2015 | | | | Directive | 8:57 AM | | | + + + + + + + + + + | Code Status | Date | Date | Comments | | | Activated | Inactivated | | + + + + + | Full Code | 04/08/2016 | 04/08/2016 | | | | 11:24 AM | 2:12 PM | | + + + + +
--- OUTSIDE RECORDS SUMMARY | ~2019-07-14 | XMS | Encounter Summary ---
Demographics + + + | Address | [address] | | | [place] [address] | + + + | Home Phone [...] + + + | Author | [place] [employer] [facility] | + + + | Organization | [facility] | + + + | Address | Unknown | + + + | Phone | Unavailable | + + + Support + + +---------+ + | Name | Relationship | Address | Phone | + + +---------+ + | [place] Dixon | ECON | Unknown | | + + +---------+ + Care Team Providers + +------+ + | Care Teaching Aide Name | Role | Phone | + [...] Description | +--------+--------+ + + + | 04/28/ | Refill | Neurosurgery at | Donnie, | Refill Request | | 2010 | | [facility] [address] | [place], | | | | | [place] Mailcode: CH8N | DNP,DAIRY BACTERIOLOGIST,[place] [address] | | | | | [facility] | [address] [place], | | | | | and [facility], | [place] [address] | | | | | Building [address] | [phone] | | | | | [place], [place] | | | | | | [address] | | | | | | [phone] | | | +--------+--------+ + + + [...] | | 2019 | Visit | | [address] | | | | | | [address] | | | | | | [place], [place] | | | | | | [address] | | | | | | [phone] | | | | | | | | +--------+---------+ + + + documented as of this encounter Visit Diagnoses Not on filedocumented in this encounter"
--- OUTSIDE RECORDS SUMMARY | ~2019-07-14 | XMS | Encounter Summary ---
Demographics + + + | Address | [address] | | | [place] [address] | + + + | Home Phone [...] + + + | Author | [place] [employer] [facility] | + + + | Organization | [facility] | + + + | Address | Unknown | + + + | Phone | Unavailable | + + + Support + + +---------+ + | Name | Relationship | Address | Phone | + + +---------+ + | [place] | ECON | Unknown | | + + +---------+ + Care Team Providers + +------+ + | Care Terrazzo Journeyman Name | Role | Phone | + +------+ + | Jinny Bergeron MD | PCP | | + +------+ + Encounter Details +--------+ + + + + | Date | Type | Department | Care Team | Description | +--------+ + + + + | 06/27/ | Sole Leather Cutting Machine Operator | Neurosurgery at | [place], | | | 2014 | | [facility] [address] | [place]ie | | | | | [place] Mailcode: CH8N | DNP,SHIPFITTER,[place] [address] | | | | | [facility] | [address] [place], | | | | | and [place], | [place] [address] | | | | | [facility] | [phone] | | | | | Floor [place], [place] | | | | | | [address] | | | | | | [phone] | | | +--------+ + + + [...] Rd | | | | | | [place], [place] | | | | | | [address] | | | | | | [phone] | | | | | | | | +--------+---------+ + + + documented as of this encounter Visit Diagnoses Not on filedocumented in this encounter"
--- OUTSIDE RECORDS SUMMARY | ~2019-07-14 | XMS | Encounter Summary ---
Demographics + + + | Address | [address] | | | [place] [address] | + + + | Home Phone [...] + + + | Author | [place] [employer] [facility] | + + + | Organization | [facility] [...] Team Providers + +------+ + | Care Inside Account Representative Name | Role | Phone | + +------+ + | Priscilla Ramírez PA-C | PCP | | + +------+ + Reason for Visit + + + | Reason | Comments | + + + | Appointment | review stress test instructions | + + + Encounter Details +--------+ + + + + | Date | Type | Department | Care Team | Description | +--------+ + + + + | 06/25/ | Telephone | Cardiac | Sylvia Cotto RN | Appointment (review | | 2018 | | Non-Invasive Testing | [address] | stress test | | | | at [address] | [address] [place], | instructions) | | | | [address] | [place] [address] | | | | | [address] | | | | | | Mailcode: [id number] [facility] | | | | | | [address] | | | | | | [place], | | | | | | [place] [address] | | | | | | [phone] | | | +--------+ + + + [...] [place] | | | | | | [address] | | | | | | [phone] | | | | | | | | +--------+---------+ + + + documented as of this encounter Visit Diagnoses Not on filedocumented in this encounter"
--- OUTSIDE RECORDS SUMMARY | ~2019-07-14 | XMS | Encounter Summary ---
Demographics + + + | Address | [address] | | | [place] [address] | + + + | Home Phone [...] + + + | Author | [place] [employer] [facility] | + + + | Organization | [facility] [...] Team Providers + +------+ + | Care Freight Tallier Name | Role | Phone | + [...] | | | [address] | [place], [place] | Duct (Pouch) (HCC) | | | | Mailcode: [id number] | [address] | (Primary Dx) | | | | [facility] | [phone] | | | | | [address] | | | | | | [place], [place] | | | | | | [address] | | | | | | [phone] | | | +--------+ + + + [...] | | 2020 | Visit | | [address] | | | | | | [address] | | | | | | [place], [place] | | | | | | [address] | | | | | | [phone] | | | | | | | [...] Performed At | + + + | [id number] Estimated GFR > 60 mL/min/1.73 sq m if non- | [facility] | | [id number] Estimated GFR > 60 mL/min/1.73 sq m [...] + | [facility] | [address] | [place] [address] | | | PATHOLOGY | [address] | | | + + + + + | [facility] | [address] | [place] [address] | | | PATHOLOGY | [address] [...] + + + | [facility] | [address] | [place] [address] | | | LABORATORY | | | [...]
--- OUTSIDE RECORDS SUMMARY | ~2019-07-14 | XMS | Encounter Summary ---
Demographics + + + | Address | [address] | | | [place] [address] | + + + | Home Phone [...] + + | Author | [place] [employer] [facility] | + + + | Organization | [facility] | + + + | Address | Unknown | + + + | Phone | Unavailable | + + + Support + + +---------+ + | Name | Relationship | Address | Phone | + + +---------+ + | Alexandria Dixon | ECON | Unknown | | + + +---------+ + Care Team Providers + +------+ + | Care Plasma Processing Technician Name | Role | Phone | + +------+ + | No Pcp Per Patient | PCP | Unavailable | + +------+ + Encounter Details +--------+ + + + + | Date | Type | Department | Care Team | Description | +--------+ + + + + | 04/02/ | MyChart | Neurosurgery at | [place]nie, | RE: appointment | | 2010 | Encounter | [facility] [address] | Cathie | | | | | [place] Mailcode: CH8N | DNP,POLISHER BRASS,[place] [address] | | | | | [facility] | [address] [place], | | | | | and [place], | [place] [address] | | | | | [facility] [address] | [phone] | | | | | [place], [place] | | | | | | [address] | | | | | | [phone] | | | +--------+ + + + [...] Rd | | | | | | [place], [place] | | | | | | [address] | | | | | | [phone] | | | | | | | | +--------+---------+ + + + documented as of this encounter Visit Diagnoses Not on filedocumented in this encounter"
--- OUTSIDE RECORDS SUMMARY | ~2019-07-14 | XMS | Encounter Summary ---
Demographics + + + | Address | [address] | | | [place] [address] | + + + | Home Phone [...] + + + | Author | [place] [employer] [facility] | + + + | Organization | [facility] [...] Team Providers + +------+ + | Care Fountain Helper Name | Role | Phone | + +------+ + | Jhonny Rodriguez DO | PCP | | + +------+ + Reason for Visit + + + | Reason | Comments | + + + | Medication | | + + + Encounter Details +--------+ + + + + | Date | Type | Department | Care Team | Description | +--------+ + + + + | 06/08/ | Telephone | Neurosurgery at | [place], | Medication | | 2011 | | [facility] [address] | [place], | | | | | [place] Mailcode: CH8N | DNP,RN [place] [address] | | | | | [facility] | [address] [place], | | | | | and [place], | [place] [address] | | | | | Building [address] | [phone] | | | | | [place], [place] | | | | | | [address] | | | | | | [phone] | | | +--------+ + + + [...] Rd | | | | | | [place], [place] | | | | | | [address] | | | | | | [phone] | | | | | | | | +--------+---------+ + + + documented as of this encounter Visit Diagnoses Not on filedocumented in this encounter"
--- OUTSIDE RECORDS SUMMARY | ~2019-07-14 | XMS | Encounter Summary ---
Demographics + + + | Address | [address] | | | [place] [address] | + + + | Home Phone [...] Author + + + | Author | [place] [employer] [facility] | + + + | Organization | [facility] | [...] Team Providers + +------+ + | Care Cmm Inspector Name | Role | Phone | [...] Refill Request | | 2015 | | [facility] [address] | [place], | | | | | [place] Mailcode: CH8N | DNP,CAFE SITE ATTENDANT,[place] [address] | | | | | [facility] | [address] [place], | | | | | and [place], | [place] [address] | | | | | Building | [phone] | | | | | Floor [place], [place] | | | | | | [address] | | | | | | [phone] | | | +--------+--------+ + + + [...] | | 2019 | Visit | | [address] | | | | | | [address] | | | | | | [place], [place] | | | | | | [address] | | | | | | [phone] | | | | | | | [...]
--- OUTSIDE RECORDS SUMMARY | ~2019-07-14 | XMS | Encounter Summary ---
Demographics + + + | Address | [address] | | | [place] [address] | + + + | Home Phone [...] + + + | Author | [employer] [facility] | + + + | Organization | [facility] | + + + | Address | Unknown | + + + | Phone | Unavailable | + + + Support + + +---------+ + | Name | Relationship | Address | Phone | + + +---------+ + | Alexandria Dixon | ECON | Unknown | | + + +---------+ + Care Team Providers + +------+ + | Care Negative Retoucher Name | Role | Phone | + +------+ + | Jinny Bergeron MD | PCP | | + +------+ + Encounter Details +--------+ + + + + | Date | Type | Department | Care Team | Description | +--------+ + + + + | 11/30/ | MyChart | Neurosurgery at | Donnie, | RE: | | 2014 | Encounter | [facility] [address] | Cathie | | | | | [place] Mailcode: [id number] | DNP,WAGE ADJUSTER,[place] [address] | | | | | [facility] | [address], | | | | | and [place], | [place] [address] | | | | | [place] [address] | [phone] | | | | | [place], [place] | | | | | | [address] | | | | | | [phone] | | | +--------+ + + + [...] [address] | | | | | | [place], [place] | | | | | | [address] | | | | | | [phone] | | | | | | | | +--------+---------+ + + + documented as of this encounter Visit Diagnoses Not on filedocumented in this encounter"
--- OUTSIDE RECORDS SUMMARY | ~2019-07-14 | XMS | Encounter Summary ---
Demographics + + + | Address | [address] | | | [place] [address] | + + + | Home Phone | | + + + | Preferred Language | Unknown | + + + | Marital Status | Single | + + + | Mu-Ism Affiliation | Unknown | + + + | Race | Unknown | + + + | Ethnic Group | Unknown | + + + Author + + + | Author | [facility] | | | and [place] | + + + | Organization | [facility] | | | and [place] [...] Team Providers + +------+ + | Care Batch Plant Operator Name | Role | Phone | + +------+ + | Jinny Bergeron MD | PCP | | + +------+ + Encounter Details +--------+ + + + + | Date | Type | Department | Care Team | Description | +--------+ + + + + | 11/30/ | Hospital | [facility] | Conversion | | | 2015 - | Encounter | [facility] | Transaction, | | | | | CLINICAL DECISION | Provider Unknown | | | 12/01/ | | [address] | [phone] | | | 2015 | | [place], [place] | | | | | | [address] | Juan Johnson | | | | | [phone] | MD Dana Weeks | | | | | | DR [address] | | | | | | [place] [address] | | | | | | [phone] | | | | | | | [...] + + documented as of this encounter Discharge Summaries Sofia Puckett PA - 12/01/2014 9:38 AM PDTFormatting of this note might be diffe rent from the original. Discharge Summaries by Sofia Puckett PA-C at 12/01/14 0938 Author: Sofia Puckett PA-C Service: Cardiology Author Type: Physician Jordan Man - Certified Filed: 12/06/14 0952 Date of Service: 12/01/14 0938 Status: Attested Natural Developer: Sofia Puckett PA-C (Physician Jordan Man - Certified) Related Notes: Original Note by Sofia Puckett PA-C (Physician Jordan Man - Certified ) filed at 12/01/14 1240 Cosigner: Abiodun Zaragoza MD at 12/06/14 1515 Attestation signed by Abiodun Zaragoza MD at 12/06/14 3474 I saw and examined the patient with Sofia Puckett PA-C. I have reviewed the tests per formed. I agree with the assessment and plan as documented in the note. Abiodun Zaragoza MD 12/06/2014 [facility] Service: Cardiology Discharge Summary Date of Admission: 11/30/2014 Date of Discharge: 12/01/2014 Discharge Physician: Abiodun Zaragoza MD DISCHARGE DIAGNOSIS: Coronary artery disease. PROCEDURES: Left heart catheterization for abnormal nuclear stress test which found 2 vessel disease wi th PRE KINDERGARTEN TEACHER of the right coronary artery, patent stent to the mid left circumflex artery, unsucce ssful attempt of the PRE KINDERGARTEN TEACHER PCI. HOSPITAL COURSE: No events overnight. Patient will be discharged in stable condition. DISCHARGE EXAM Vital Signs: BP 173/82 | Pulse 106 | Temp(Src) 98.3 F (36.8 C) (Oral) | Resp 20 | Ht 1.727 m (5' 8") | Wt 137.893 kg (304 lb) | BMI 46.23 kg/m2 | SpO2 96% HEENT: No xanthelasmas. Extraocular movements were intact. No jaundice. NECK: no JVD, lymphadenopathy. Trachea is at midline. Thyroid is not palpable. CARDIAC: There is normal S1 and S2. No added sounds, murmurs, gallop, or rub. CHEST: Normal bilateral symmetrical chest excursion. Good bilateral air entry with no crack les or wheezing. No evidence of dullness. ABDOMEN: Soft and lax. No tenderness. No palpable organs. Active bowel sounds. EXTREMITIES: No lower extremities edema. NEURO: Alert and oriented times three with no focal deficit. Cranial nerves are grossly no rmal. SKIN: No bruises or rash. Access site healing well. DATA: Recent Labs Lab 11/30/14 1349 NA 136 K 4.2 CO2 27 BUN 13 CREATININE 0.86 No results for input(s): CKTOTAL, CKMB, CKMBINDEX, TROPONINI in the last 168 hours. Recent Labs Lab 11/30/14 1349 WBC 10.78 HGB 17.2* HCT 50.1* MCV 87.0 PLT 354 PLAN: Mr. Tyler is a 34-year-old gentleman with the following medical history. 1. Coronary artery disease status post percutaneous coronary intervention to the circumflex in 2010 and chronic total occlusion of the right coronary artery. 2. History of pituitary tumor followed by [facility]. 3. Hyperlipidemia. 4. Hypertension. 5. Referred for left heart catheterization for abnormal nuclear stress test, was found to h ave 2 vessel disease and chronic total occlusion of the mid right coronary artery and patent stent of the mid left circumflex artery with unsuccessful attempt at chronic total occlusio n percutaneous coronary intervention. PLAN 1. I recommended the patient to continue with medical management including his atorvastatin which I have increased to 80 mg today. 2. Smoking cessation encouraged. 3. His blood pressure has been elevated. I have increased his lisinopril to 20 mg daily. 4. He will continue on antiplatelet either Effient or aspirin. I will leave the decision up to Dr. Johnson which antiplatelet he will continue; however, at this point, I will have h im continue with Effient which has been on. 5. He will follow up with Dr. Johnson in 1 to 2 weeks. DISCHARGE MEDICATIONS: Medication List CHANGE how you take these medications atorvastatin 80 MG tablet QTY: 90 tablet Refills: 3 Commonly known as: LIPITOR Take 1 tablet by mouth nightly. What changed: - medication strength - how much to take lisinopril 20 MG tablet QTY: 90 tablet Refills: 3 Commonly known as: ZESTRIL Take 1 tablet by mouth daily. What changed: - medication strength - how much to take CONTINUE taking these medications desmopressin 0.2 MG tablet Refills: 0 Commonly known as: DDAVP EFFIENT 10 MG Tabs Refills: 0 Generic drug: prasugrel HYDROcodone-acetaminophen 10-325 MG per tablet Refills: 0 Commonly known as: NORCO hydrocortisone 20 MG tablet Refills: 0 Commonly known as: CORTEF ibuprofen 800 MG tablet Refills: 0 Commonly known as: MOTRIN levothyroxine 150 MCG tablet Refills: 0 Commonly known as: SYNTHROID metFORMIN 500 MG tablet Refills: 0 Commonly known as: GLUCOPHAGE metoprolol 50 MG 24 hr tablet Refills: 0 Commonly known as: TOPROL-XL phentermine 37.5 MG tablet Refills: 0 Commonly known as: ADIPEX-P Somatropin 10 MG/2ML Soln Refills: 0 testosterone 50 MG/5GM (1%) Gel gel Refills: 0 Commonly known as: ANDROGEL VITAMIN D-3 PO Refills: 0 Where to Get Your Medications These are the prescriptions that you need to supervisor opening and picking. You may get the following medications from any pharmacy - atorvastatin 80 MG tablet - lisinopril 20 MG tablet Disposition: Home Condition: Stable Code Status: Full Code Discharge took 20 minutes, to include final examination, discussion of admission, and prepa ration of prescriptions, instructions for on-going care, follow-up and documentation of disc harge summary. Patient was seen and examined by Dr. Zaragoza and plan was discussed and agreed upon. Sofia Puckett PA-C 12/01/2014 docarmencita hutson in this encounter Medications at Time of [...] + + + +---------+ + + | ibuprofen | Take 800 mg by mouth | | 0 | | | | (ADVIL,MOTRIN) 800 | 3 times daily. | | | | 5 | | MG tablet | | | | | [...] + + + +---------+ + + | pravastatin | Take 20 mg by mouth | | 0 | 04/22/20 | | | (PRAVACHOL) 20 mg | Daily. | | | 12 | 5 | | tablet | | | | [...] Progress Notes Conversion Transaction, Provider Unknown - 12/01/2014 10:07 AM PDTFormatting of this note m ight be different from the original. Nurse Progress Note by Jeanne Murdock RN at 12/01/14 1007 Author: Jeanne Murdock RN Service: (none) Author Type: Registered Nurse Filed: 12/01/14 1007 Date of Service: 12/01/141006 Status: Signed Natural Developer: Jeanne Murdock RN (Registered Nurse) Discharge summary reviewed with patient and girlfriend at bedside. No concerns were voiced and meds were reviewed. No other questions were stated. onver jael Transaction, Provider Unknown - 12/01/2014 6:45 AM PDT Nurse Progress Note by Cristela Mccarthy RN at 12/01/14 0645 Author: Cristela Mccarthy RN Service: (none) Author Type: Registered Nurse Filed: 12/01/14 0645 Date of Service: 12/01/1445 Status: Signed Natural Developer: Cristela Mccarthy RN (Registered Nurse) Going to give report to day nurse, who will assume care. onver jael Transaction, Provider Unknown - 12/01/2014 6:20 AM PDT Nurse Progress Note by Cristela Mccarthy RN at 12/01/14 0620 Author: Cristela Mccarthy RN Service: (none) Author Type: Registered Nurse Filed: 12/01/14 0627 Date of Service: 12/01/14619 Status: Signed Natural Developer: Cristela Mccarthy RN (Registered Nurse) Pt ambulates in the reyes with RN and ambulates well. onver jael Transaction, Provider Unknown - 12/01/2014 12:51 AM PDT Nurse Progress Note by Cristela Mccarthy RN at 12/01/1450 Author: Cristela Mccarthy RN Service: (none) Author Type: Registered Nurse Filed: 12/01/1451 Date of Service: 12/01/1450 Status: Signed Natural Developer: Cristela Mccarthy RN (Registered Nurse) Pt refusing pain pill at this time onver jael Transaction, Provider Unknown - 11/30/2014 10:13 PM PDT Nurse Progress Note by Cristela Mccarthy RN at 11/30/142212 Author: Cristela Mccarthy RN Service: (none) Author Type: Registered Nurse Filed: 11/30/142212 Date of Service: 11/30/142212 Status: Signed Natural Developer: Cristela Mccarthy RN (Registered Nurse) Pt tolerated clear liquid tray well. onver jael Transaction, Provider Unknown - 11/30/2014 8:33 PM PDT Progress Notes by Melida Schmitt RPH at 11/30/142032 Author: Melida Schmitt RPH Service: (none) Author Type: Pharmacist Filed: 11/30/142032 Date of Service: 11/30/142032 Status: Signed Natural Developer: Melida Schmitt RPH (Pharmacist) Renal Dosing Monitoring: Shai Tyler 34 y.o. male Pharmacy dosing for renal function per Dr. Zaragoza SCr 0.86, est. CrCl > 100 ml/min Plan per protocol: Medications dosed appropriately for current renal function. Pharmacy will continue monitoring patient for appropriate dosing per renal function. 11/30/2014 8:33 PM Pharmacist: Melida Schmitt onver jael Transaction, Provider Unknown - 11/30/2014 3:00 PM PDT Progress Notes by Mert Jack RN at 11/30/14 1500 Author: Mert Jack RN Service: (none) Author Type: Registered Nurse Filed: 11/30/14 1507 Date of Service: 11/30/141499 Status: Signed Natural Developer: Mert Jack RN (Registered Nurse) Called Dr. Johnson in regards to pt. Needing cortisone prior to heart cath. states to give 80mg iv solumedrol prior to case. Mert Jack RN docume nted in this encounter Plan of [...] + | POC GLUCOSE | Routin | 11/30/2014 | | Results for this | | | e | 11:29 PM | | procedure are in the | | | | PDT | | results section. | + +--------+ + + + | ACTIVATED CLOTTING | Routin | 11/30/2014 | | Results for this | | TIME | e | 7:39 PM | | procedure are in the | | | | PDT | | results section. | + +--------+ + + + | ACTIVATED CLOTTING | Routin | 11/30/2014 | | Results for this | | TIME | e | 7:31 PM | | procedure are in the | | | | PDT | | results section. | + +--------+ + + + | ACTIVATED CLOTTING | Routin | 11/30/2014 | | Results for this | | TIME | e | 7:10 PM | | procedure are in the | | | | PDT | | results section. | + +--------+ + + + | ACTIVATED CLOTTING | Routin | 11/30/2014 | | Results for this | | TIME | e | 7:00 PM | | procedure are in the | | | | PDT | | results section. | + +--------+ + + + | ACTIVATED CLOTTING | Routin | 11/30/2014 | | Results for this | | TIME | e | 5:45 PM | | procedure are in the | | | | PDT | | results section. | + +--------+ + + + | EXTERNAL LAB: CBC | Routin | 11/30/2014 | | Results for this | | | e | 1:49 PM | | procedure are in the | | | | PDT | | results section. | + +--------+ + + + | BASIC METABOLIC | Routin | 11/30/2014 | | Results for this | | PANEL | e | 1:49 PM | | procedure are in the | | | | PDT | | results section. | + +--------+ + + + documented in this encounter Results POC Glucose (11/30/2014 11:29 PM PDT) + + + + + + | Component | Value | Ref Range | Performed | Pathologist | | | | | At | Signature | + + + + + + | Glucose, | 285 (H)Comment: Testing | 65 - 99 mg/dL | EXTERNAL | | | Fingerstick | performed at [facility];[address] | | LAB | | | | [address];[place], [place] | | | | | | [address] | | | | + + + + + + + + | Specimen | + + | | + + + +---------+ + + | Performing | Address | City/State/Zipcode | Phone Number | | Organization | | | | + +---------+ + + | EXTERNAL LAB | | | | + +---------+ + + Activated clotting time (11/30/2014 7:39 PM PDT) + + + + + + | Component | Value | Ref Range | Performed | Pathologist | | | | | At | Signature | + + + + + + | Activated | 271 (H)Comment: Testing | 74 - 137 | EXTERNAL | | | Clotting | performed at [facility];[address] | seconds | LAB | | | time, POC | [address];[place] | | | | | | [address] | | | | + + + + + + + + | Specimen | + + | | + + + +---------+ + + | Performing | Address | City/State/Zipcode | Phone Number | | Organization | | | | + +---------+ + + | EXTERNAL LAB | | | | + +---------+ + + Activated clotting time (11/30/2014 7:31 PM PDT) + + + + + + | Component | Value | Ref Range | Performed | Pathologist | | | | | At | Signature | + + + + + + | Activated | 442 (H)Comment: Testing | 74 - 137 | EXTERNAL | | | Clotting | performed at [facility];[address] | seconds | LAB | | | time, POC | [address];[place] | | | | | | [address] | | | | + + + + + + + + | Specimen | + + | | + + + +---------+ + + | Performing | Address | City/State/Zipcode | Phone Number | | Organization | | | | + +---------+ + + | EXTERNAL LAB | | | | + +---------+ + + Activated clotting time (11/30/2014 7:10 PM PDT) + + + + + + | Component | Value | Ref Range | Performed | Pathologist | | | | | At | Signature | + + + + + + | Activated | 188 (H)Comment: Testing | 74 - 137 | EXTERNAL | | | Clotting | performed at [facility];[address] | seconds | LAB | | | time, POC | [address];[place], [place] | | | | | | [address] | | | | + + + + + + + + | Specimen | + + | | + + + +---------+ + + | Performing | Address | City/State/Zipcode | Phone Number | | Organization | | | | + +---------+ + + | EXTERNAL LAB | | | | + +---------+ + + Activated clotting time (11/30/2014 7:00 PM PDT) + + + + + + | Component | Value | Ref Range | Performed | Pathologist | | | | | At | Signature | + + + + + + | Activated | 138 (H)Comment: Testing | 74 - 137 | EXTERNAL | | | Clotting | performed at [facility];[address] | seconds | LAB | | | time, POC | [address];[place] | | | | | | [address] | | | | + + + + + + + + | Specimen | + + | | + + + +---------+ + + | Performing | Address | City/State/Zipcode | Phone Number | | Organization | | | | + +---------+ + + | EXTERNAL LAB | | | | + +---------+ + + Activated clotting time (11/30/2014 5:45 PM PDT) + + + + + + | Component | Value | Ref Range | Performed | Pathologist | | | | | At | Signature | + + + + + + | Activated | 182 (H)Comment: Testing | 74 - 137 | EXTERNAL | | | Clotting | performed at [facility];[address] | seconds | LAB | | | time, POC | [address];[place], [place] | | | | | | [address] | | | | + + + + + + + + | Specimen | + + | | + + + +---------+ + + | Performing | Address | City/State/Zipcode | Phone Number | | Organization | | | | + +---------+ + + | EXTERNAL LAB | | | | + +---------+ + + External Lab: CBC (11/30/2014 1:49 PM PDT) + + + + + + | Component | Value | Ref Range | Performed | Pathologist | | | | | At | Signature | + + + + + + | WBC | 10.78Comment: Testing | 3.80 - 11.00 | EXTERNAL | | | | performed at [facility];[address] | K/uL | LAB | | | | [address];[place] | | | | | | [address] | | | | + + + + + + | RED CELL | 5.76 (H)Comment: Testing | 4.20 - 5.70 | EXTERNAL | | | COUNT | performed at [facility];[address] | M/uL | LAB | | | | [address];[place] | | | | | | [address] | | | | + + + + + + | Hgb | 17.2 (H)Comment: Testing | 13.2 - 17.0 | EXTERNAL | | | | performed at [facility];[address] | g/dL | LAB | | | | [address];[place] | | | | | | [address] | | | | + + + + + + | Hematocrit, | 50.1 (H)Comment: Testing | 39.0 - 50.0 % | EXTERNAL | | | POC | performed at [facility];[address] | | LAB | | | | [address];[place] | | | | | | [address] | | | | + + + + + + | MCV | 87.0Comment: Testing | 80.0 - 100.0 fl | EXTERNAL | | | | performed at [facility];[address] | | LAB | | | | [address];[place] | | | | | | [address] | | | | + + + + + + | MCH | 30.0Comment: Testing | 27.0 - 34.0 pg | EXTERNAL | | | | performed at [facility];[address] | | LAB | | | | [address];[place] | | | | | | [address] | | | | + + + + + + | MCHC | 34.5Comment: Testing | 32.0 - 35.5 | EXTERNAL | | | | performed at [facility];[address] | g/dL | LAB | | | | [address];[place] | | | | | | [address] | | | | + + + + + + | RDW-CV | 39.8Comment: Testing | 37 - 53 fl | EXTERNAL | | | | performed at [facility];[address] | | LAB | | | | [address];[place] | | | | | | [address] | | | | + + + + + + | Platelet | 354Comment: Testing | 150 - 400 K/uL | EXTERNAL | | | Count | performed at [facility];[address] | | LAB | | | Plasma | [address];[place] | | | | | | [address] | | | | + + + + + + | MPV | 7.3Comment: Testing | fl | EXTERNAL | | | | performed at [facility];[address] | | LAB | | | | [address];[place] | | | | | | [address] | | | | + + + + + + | Differentia | AUTOMATEDComment: | | EXTERNAL | | | l Type | Testing performed at | | LAB | | | | [facility];[address];[place] [address] | | | | + + + + + + | % Segmented | 60.80Comment: Testing | % | EXTERNAL | | | | performed at [facility];[address] | | LAB | | | Neutrophils | [address];[place] | | | | | | [address] | | | | + + + + + + | % | 28.55Comment: Testing | % | EXTERNAL | | | Lymphocytes | performed at [facility];[address] | | LAB | | | | [address];[place] | | | | | | [address] | | | | + + + + + + | % Monocytes | 8.09Comment: Testing | % | EXTERNAL | | | | performed at [facility];[address] | | LAB | | | | [address];[place] | | | | | | [address] | | | | + + + + + + | % | 1.59Comment: Testing | % | EXTERNAL | | | Eosinophils | performed at [facility];[address] | | LAB | | | | [address];[place] | | | | | | [address] | | | | + + + + + + | % Basophils | 0.97Comment: Testing | % | EXTERNAL | | | | performed at [facility];[address] | | LAB | | | | [address];[place] | | | | | | [address] | | | | + + + + + + | Absolute | 6.56Comment: Testing | 1.90 - 7.40 | EXTERNAL | | | Segmented | performed at [facility];[address] | K/uL | LAB | | | Neutrophils | [address];[place] | | | | | | [address] | | | | + + + + + + | Absolute | 3.08Comment: Testing | 1.00 - 3.90 | EXTERNAL | | | Lymphocytes | performed at [facility];[address] | K/uL | LAB | | | | [address];[place] | | | | | | [address] | | | | + + + + + + | Absolute | 0.87 (H)Comment: Testing | 0.00 - 0.80 | EXTERNAL | | | Monocytes | performed at [facility];[address] | K/uL | LAB | | | | [address];[place] | | | | | | [address] | | | | + + + + + + | Absolute | 0.17Comment: Testing | 0.00 - 0.50 | EXTERNAL | | | Eosinophils | performed at [facility];[address] | K/uL | LAB | | | | [address];[place] | | | | | | [address] | | | | + + + + + + | Absolute | 0.10Comment: Testing | 0.00 - 0.10 | EXTERNAL | | | Basophils | performed at [facility];[address] | K/uL | LAB | | | | [address];[place] | | | | | | [address] | | | | + + + [...] + +---------+ + + Basic Metabolic Panel (11/30/2014 1:49 PM PDT) + + + + + + | Component | Value | Ref Range | Performed | Pathologist | | | | | At | Signature | + + + + + + | Na | 136Comment: Testing | 135 - 143 | EXTERNAL | | | | performed at [facility];[address] | mmol/L | LAB | | | | [address];[place] | | | | | | [address] | | | | + + + + + + | K | 4.2Comment: SLT | 3.5 - 4.9 | EXTERNAL | | | | HEMOLYSISTesting | mmol/L | LAB | | | | performed at [facility];[address] | | | | | | [address];[place] | | | | | | [address] | | | | + + + + + + | Cl | 101Comment: Testing | 99 - 109 mmol/L | EXTERNAL | | | | performed at [facility];[address] | | LAB | | | | [address];[place] | | | | | | [address] | | | | + + + + + + | CO2 | 27Comment: Testing | 23 - 32 mmol/L | EXTERNAL | | | | performed at [facility];[address] | | LAB | | | | [address];[place] | | | | | | [address] | | | | + + + + + + | Anion Gap | 12Comment: Testing | 5 - 20 mmol/L | EXTERNAL | | | | performed at [facility];[address] | | LAB | | | | [address];[place] | | | | | | [address] | | | | + + + + + + | Glucose, | 129 (H)Comment: Testing | 65 - 99 mg/dL | EXTERNAL | | | Fasting | performed at [facility];[address] | | LAB | | | | [address];[place] | | | | | | [address] | | | | + + + + + + | BUN | 13Comment: Testing | 8 - 25 mg/dL | EXTERNAL | | | | performed at [facility];[address] | | LAB | | | | [address];[place] | | | | | | [address] | | | | + + + + + + | Creatinine | 0.86Comment: Testing | 0.70 - 1.30 | EXTERNAL | | | | performed at [facility];[address] | mg/dL | LAB | | | | [address];[place] | | | | | | [address] | | | | + + + + + + | BUN/Creatin | 15Comment: Testing | | EXTERNAL | | | ine Ratio | performed at [facility];[address] | | LAB | | | | [address];[place] | | | | | | [address] | | | | + + + + + + | Calcium | 9.4Comment: Testing | 8.5 - 10.5 | EXTERNAL | | | | performed at [facility];[address] | mg/dL | LAB | | | | [address];[place] | | | | | | [address] | | | | + + + [...] | | | | | | at [facility];[address];[place] [address] | | | | + + + [...]
--- OUTSIDE RECORDS SUMMARY | ~2019-07-14 | XMS | Encounter Summary ---
Demographics + + + | Address | [address] | | | [place] [address] | + + + | Home Phone [...] + + + | Author | [place] [employer] [facility] | + + + | Organization | [facility] | + + + | Address | Unknown | + + + | Phone | Unavailable | + + + Support + + +---------+ + | Name | Relationship | Address | Phone | + + +---------+ + | Alexandria Dixon | ECON | Unknown | | + + +---------+ + Care Team Providers + +------+ + | Care Pc Installation Engineer Name | Role | Phone | + +------+ + | No Pcp Per Patient | PCP | Unavailable | + +------+ + Encounter Details +--------+ + + + + | Date | Type | Department | Care Team | Description | +--------+ + + + + | 07/21/ | Abstract | Neurosurgery [address]181 | Donnie, | | | 2005 | | [address] | Cathie | | | | | Abdoulaye Mailcode:[id number] | DNP,FICTION AND NONFICTION PROSE WRITER,[place] [address] | | | | | [address] | [address] [place], | | | | | [place], [place] | [place] [address] | | | | | [address] | [phone] | | | | | [phone] | | | +--------+ + + + [...] Rd | | | | | | [place], [place] | | | | | | [address] | | | | | | [phone] | | | | | | | | +--------+---------+ + + + documented as of this encounter Procedures + +--------+ + + + | Procedure Name | Priori | Date/Time | Associated Diagnosis | Comments | | | ty | | | | + +--------+ + + + | BASIC METABOLIC SET | Routin | 07/20/2006 | | Results for this | | (NA, K, CL, TCO2, | e | 12:10 AM | | procedure are in the | | BUN, CR, GLU, CA) | | PST | | results section. | + +--------+ + + + | ACTH, PLASMA | Routin | 07/16/2006 | | Results for this | | | e | 6:35 PM | | procedure are in the | | | | PST | | results section. | + +--------+ + + + | CORTISOL, URINE | Routin | 07/15/2006 | | Results for this | | | e | 6:52 PM | | procedure are in the | | | | PST | | results section. | + +--------+ + + + documented in this encounter Results BASIC METABOLIC SET (07/20/2006 12:10 AM PST) + +---------+ + + + | Component | Value | Ref Range | Performed | Pathologist | | | | | At | Signature | + +---------+ + + + | GLUCOSE, | 103 | 65 - 110 mg/dL | OUTSIDE LAB | | | PLASMA | | | | | | (LAB) | | | | | + +---------+ + + + | BUN, PLASMA | 10 | mg/dL | OUTSIDE LAB | | | (LAB) | | | | | + +---------+ + + + | CREATININE | 0.7 | mg/dL | OUTSIDE LAB | | | PLASMA | | | | | | (LAB) | | | | | + +---------+ + + + | SODIUM, | 142 | mmol/L | OUTSIDE LAB | | | PLASMA | | | | | | (LAB) | | | | | + +---------+ + + + | POTASSIUM, | 4.4 | mmol/L | OUTSIDE LAB | | | PLASMA | | | | | | (LAB) | | | | | + +---------+ + + + | CHLORIDE, | 107 | mmol/L | OUTSIDE LAB | | | PLASMA | | | | | | (LAB) | | | | | + +---------+ + + + | TOTAL CO2, | 27.7 | mmol/L | OUTSIDE LAB | | | PLASMA | | | | | | (LAB) | | | | | + +---------+ + + + | CALCIUM, | 9.3 | mg/dL | OUTSIDE LAB | | | PLASMA | | | | | | (LAB) | | | | | + +---------+ + + + | POTASSIUM | | | OUTSIDE LAB | | | CMNT | | | | | + +---------+ + + + | FREE T4, | 1.98 | 0.6 - 2.0 ng/dL | OUTSIDE LAB | | | SERUM | | | | | + +---------+ + + + | TESTOSTERON | 141 (A) | 400 - 1000 | OUTSIDE LAB | | | E, SERUM | | ng/dl | | | + +---------+ + + + + + | Specimen | + + | | + + + +---------+ + + | Performing | Address | City/State/Zipcode | Phone Number | | Organization | | | | + +---------+ + + | NON [facility] | | | | + +---------+ + + | OUTSIDE LAB | | | | + +---------+ + + ACTH (07/16/2006 6:35 PM PST) + +-------+ + + + | Component | Value | Ref Range | Performed | Pathologist | | | | | At | Signature | + +-------+ + + + | ACTH,PLASMA | 22 | 0 - 46 pg/mL | OUTSIDE LAB | | + +-------+ + + + | CORTISOL, | 4.5 | 4 - 24 ug/dl | OUTSIDE LAB | | | TOTAL SERUM | | | | | + +-------+ + + + + + | Specimen | + + | | + + + +---------+ + + | Performing | Address | City/State/Zipcode | Phone Number | | Organization | | | | + +---------+ + + | NON [facility] | | | | + +---------+ + + | OUTSIDE LAB | | | | + +---------+ + + CORTISOL, URINE (07/15/2006 6:52 PM PST) + + + + + + | Component | Value | Ref Range | Performed | Pathologist | | | | | At | Signature | + + + + + + | CORTISOL, | 66.7Comment: TOTAL | 10 - 80 | OUTSIDE LAB | | | FREE URINE | VOLUME 2150 | ug/interval | | | + + + + + + + + | Specimen | + + | | + + + +---------+ + + | Performing | Address | City/State/Zipcode | Phone Number | | Organization | | | | + +---------+ + + | NON [facility] | | | | + +---------+ + + | OUTSIDE LAB | | | | + +---------+ + + documented in this encounter Visit Diagnoses Not on filedocumented in this encounter"
--- OUTSIDE RECORDS SUMMARY | ~2019-07-14 | XMS | Encounter Summary ---
Demographics + + + | Address | [address] | | | [place] [address] | + + + | Home Phone [...] + + + | Author | [place] [employer] [facility] | + + + | Organization | [facility] | + [...] Team Providers + +------+ + | Care Stamp Machine Servicer Name | Role | Phone | + +------+ + | No Pcp Per Patient | PCP | Unavailable | + +------+ + Reason for Visit Consultation (Routine) +--------+--------+ + + + + | Status | Reason | Specialty | Diagnoses / | Referred By | Referred To | | | | | Procedures | Contact | Contact | +--------+--------+ + + + + | Closed | | Otolaryngolog | Diagnoses | Yvette, | Colin, | | | | y | Benign | MD Jaclyn | Jus Almendarez MD | | | | | neoplasm of | [address] | [address] | | | | | pituitary | [address] | [facility] | | | | | gland and | Rd | Rd [place], | | | | | craniopharyn | [place], [place] | [place] [address] | | | | | geal duct | [address] | Phone: | | | | | (pouch) | Phone: | [phone] | | | | | (HCC) | [phone] | Fax: | | | | | Sphenoid | Fax: | [phone] | | | | | sinusitis | [phone] | | | | | | Procedures | | | | | | | NASAL | | | | | | | ENDOSCOPY, | | | | | | | DIAGNOSTIC | | | | | | | nasal | | | | | | | endoscopy | | | +--------+--------+ + + + + Encounter Details +--------+---------+ + + + | Date | Type | Department | Care Team | Description | +--------+---------+ + + + | 04/03/ | Office | Otolaryngology | Jus Shaw, | Chronic Sphenoidal | | 2005 | Visit | Sinus Services [address] | [address] | Sinusitis (Primary | | | | [address] [facility] | [address] | Dx); Atypical Face | | | | Rd Mailcode: [id number] | [place] [address] | Pain | | | | Physician's | [phone] | | | | | Crist[place], | | | | | | [place] [address] | | | | | | [phone] | | | +--------+---------+ + + + [...] documented as of this encounter Progress Notes Jus Shaw - 04/03/2006 12:53 PM PDTS: 25 yo 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 He has complained of ongoing frontal headaches for at least several week s. He denies purulent drainage, nasal obstruction, smell disorder, or other facial pain. Lulu bello had an MRI performed 03/17/[address] [facility]. He was seen in neurosurgery clinic today and s ubsequently referred for evaluation of sinuses. O: Calm, NAD, AOX4. No tenderness to palpation over frontal, maxillary, or nasal bridge. O ral cavity/pharynx unremarkable. No postnsal drip. Anterior rhinoscopy shows midline septu m with nl mucosa. Procedure: Nasal endoscopy was performed after lidocaine 4% topical anesthetic was placed. A rigid endoscope was utilized to evaluate the sinonasal cavities, mucosa, sinus ostia and turbinates. Overall, no significant mucosal inflammation is observed. The scope was passed medially into sphenethmoid recess bilaterally. The region of the natural sphenoid ostium w as visualized without evidence of purulent drainage. Imaging: MRI from 03/17/06 reviewed and compared to MRI from 10/13. There is hyperintensity within sphenoid sinuses bilaterally. This does enhance postgadolinium. This is also hyperi ntesne on T2 with similar intensity as fat. This is a similar appearance to MRI from 10/13. A/P: 25 yo M with frontal headache s/p transphenoidal 09/15 -MRI difficult to interpret due to fat-packing of sphenoid at time of adenoma resection -Except for pain, pt is otherwise without signs/sxs of sinusitis -Endoscopy without purulence in region of ostium bilaterally -Given that sphenoid difficult to interpret post fat-packing, will treat with course of ant ibiotics empirically -Avelox for 21 days -RTC on prn basis per Dr. Styles [facility] Plan of Treatment +--------+---------+ + + + | Date | Type | Specialty | Care Team | Description | +--------+---------+ + + + | 08/15/ | Office | Cardiology | Zuleika Hernandez, | | | 2019 | Visit | | [address] | | | | | | [address] | | | | | | [place], [place] | | | | | | [address] | | | | | | [phone] | | | | | | | | +--------+---------+ + + + + + +--------+ + + | Name | Type | Priori | Associated Diagnoses | Order Schedule | | | | ty | | | + + +--------+ + + | NASAL ENDOSCOPY, | Procedures | Routin | Chronic Sphenoidal | Ordered: 04/03/2006 | | DIAGNOSTIC | | e | Sinusitis Atypical | | | | | | Face Pain | | + + +--------+ + + documented as of this encounter Visit Diagnoses + + | Diagnosis | + + | Chronic sphenoidal sinusitis - Primary | + + | Atypical face pain | + + documented in this encounter"
--- OUTSIDE RECORDS SUMMARY | ~2019-07-14 | XMS | Encounter Summary ---
Demographics + + + | Address | [address] | | | [place] [address] | + + + | Home Phone [...] + + + | Author | [place] [employer] [facility] | + + + | Organization | [facility] [...] Team Providers + +------+ + | Care Television Parts Tester Name | Role | Phone | + +------+ + | Priscilla Ramírez PA-C | PCP | | + +------+ + Encounter Details +--------+ + + + + | Date | Type | Department | Care Team | Description | +--------+ + + + + | 07/08/ | Procedure | 6A Intra Op [facility] | | | | 2016 | Pass | [facility] | | | | | | Admitting Desk | | | | | | Located on the 9 | | | | | | floor [address] | | | | | | [address] | | | | | | [place], [place] | | | | | | [address] | | | +--------+ + + + [...] | | | | | | [place], [place] | | | | | | [address] | | | | | | [phone] | | | | | | | | +--------+---------+ + + + documented as of this encounter Visit Diagnoses Not on filedocumented in this encounter"
--- OUTSIDE RECORDS SUMMARY | ~2019-07-14 | XMS | Encounter Summary ---
Demographics + + + | Address | [address] | | | [place] [address] | + + + | Home Phone [...] + + | Author | [place] [employer] [facility] | + + + | Organization | [facility] | + + + | Address | Unknown | + + + | Phone | Unavailable | + + + Support + + +---------+ + | Name | Relationship | Address | Phone | + + +---------+ + | Alexandria Dixon | ECON | Unknown | | + + +---------+ + Care Team Providers + +------+ + | Care Security Incident Handler Name | Role | Phone | + [...] | Cardiac | Irene Olsen PA-C | [facility] [address] | | | | | mass | [address] | | | | | Procedures | [address] | [address] | | | | | TRANSTHORACI | [address] | Mailcode: | | | | | C | [place], [place] | [address] | | | | | ECHOCARDIOGR | [address] | [address] | | | | | AM, ADULT | | Building | | | | | | | [place], [place] | | | | | | | [address] | | | | | | | Phone: | | | | | | | [phone] | +--------+--------+ + + + + Reason [...] | | | | | leaflet | DNP,MANAGER [place] | [address] | | | | | abnormality | [address] | [address] | | | | | Procedures | Ave | [address] | | | | | CONSULT TO | [place], [place] | [place], [place] | | | | | SURGERY - | [address] | [address] | | | | | CARDIOTHORAC | Phone: | Phone: | | | | | IC | [phone] | [phone] | | | | | | Fax: | Fax: | | | | | | [phone] | [phone] | + +--------+ + + + + [...] | | | Rd Mailcode: L353 | [place], [place] | | | | | Physician's | [address] | | | | | [address], | [phone] | | | | | [place] [address] | | | | | | [phone] | | | +--------+---------+ + + + [...] Jinny Bergeron MD (Family Medicine) Cathie Fields, SANIYA,MANAGER [place] (NURSE PRACTITIONER FAMILY) Reason for Visit: Postoperative check Subjective: Mr. Tyler has known CAD with previous stent to the RCA which was found to be occluded on r ecent angiogram. 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 He presented to [facility] on 08/07/2016 for surgical removal of the [...] IRENE CARLSON PA-C Division of Cardiothoracic Surgery [facility] [place] Mail Code L[address] [facility] [place] [address] documented in this e [...] Rd | | | | | | [place], [place] | | | | | | [address] | | | | | | [phone] | | | | | | | [...]
--- OUTSIDE RECORDS SUMMARY | ~2019-07-14 | XMS | Encounter Summary ---
Demographics + + + | Address | [address] | | | [place] [address] | + + + | Home Phone [...] Providers + +------+ + | Care Automatic Data Processing Planner Name | Role | Phone | + +------+ + | No Pcp Per Patient | PCP | Unavailable | + +------+ + Encounter Details +--------+ + + + + | Date | Type | Department | Care Team | Description | +--------+ + + + + | 11/04/ | Letter-Loving | | Letter, Clinic | Letters | | 2006 | scribed | | | | +--------+ + + [...] as of this encounter Progress Notes Interface, Mill Operator Helper In - 11/06/2005 2:04 AM PST [id number] 10/31/2005 11/04/2005 [id number] TOREY TRIVEDI V [address] [place] [address] or November 04, 2005 Shravan Montanez M.D. [address] [place] [address] RE: FAROOQ LEMA MR #: [id number] Dear Dr. Montanez: We had the pleasure of seeing Farooq Lema in the Neurosurgery Clinic. He is here for followup after having a transsphenoidal resection of his pituitary macroadenoma. He has not had any problems since the last visit with us. He is currently being followed for his endocrine issues with Dr. Lb Guillaume in our Neuroendocrinology team. He had an MRI today as a followup which reveals good resection of this tumor. We are very pleased with the results. We would like to see Mr. Lema again in 1 year's time with repeat MRI. We discussed this with the patient, he was in agreement with the plan. If you have any questions or concerns regarding Ms. Lema's care, please do not hesitate to give me a call at [phone]. Thank you again for allowing us to participate in Mr. Lema's care. Sincerely, Jaylin Hou P.A.-C. / [id number] / [id number] / [id number] / documented i n this encounter Plan of [...] [place] | | | | | | [address] | | | | | | [phone] | | | | | | | | +--------+---------+ + + + documented as of this encounter Visit Diagnoses Not on filedocumented in this encounter"
--- OUTSIDE RECORDS SUMMARY | ~2019-07-14 | XMS | Encounter Summary ---
Demographics + + + | Address | [address] | | | [place] [address] | + + + | Home Phone [...] + + | Author | [place] [employer] [facility] | + + + | Organization | [facility] | + [...] Providers + +------+ + | Care Medical Records Assistant Name | Role | Phone | + +------+ + | No Pcp Per Patient | PCP | Unavailable | + +------+ + Encounter Details +--------+------+ + + + | Date | Type | Department | Care Team | Description | +--------+------+ + + + | 09/12/ | Lab | Laboratory at [facility] | | Pituitary Adenoma | | 2008 | | [address] | | ([facility]); 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[place], [place] | | Hormone Deficiency | | | | [address] | | ([facility]); Diabetes | | | | [phone] | | Insipidus ([facility]); | | | | | [...] | | 2019 | Visit | | [address] | | | | | | [address] | | | | | | [place], [place] | | | | | | [address] | | | | | | [phone] | | | | | | | | +--------+---------+ + + + documented as of this encounter Procedures + +--------+ + + + | Procedure Name | Priori | Date/Time | Associated Diagnosis | Comments | | | ty | | | | + +--------+ + + + | BASIC METABOLIC SET | Routin | 09/12/2008 | Pituitary Adenoma | Results for this | | (NA, K, CL, TCO2, | e | 12:49 PM | (HCC) Growth | procedure are [...] + | INSULIN GROWTH | Routin | 09/12/2008 | Pituitary Adenoma | Results for this | | FACTOR-1, SERUM | e | 12:49 PM | (HCC) Growth | procedure are [...] + | FREE T4 | Routin | 09/12/2008 | Pituitary Adenoma | Results for this | | | e | 12:49 PM | (HCC) Growth | procedure are [...] + | TESTOSTERONE, SERUM | Routin | 09/12/2008 | Pituitary Adenoma | Results for this | | | e | 12:49 PM | (HCC) Growth | procedure are [...] this encounter Results INSULIN GROWTH FACTOR-1, SERUM (09/12/2008 12:49 PM [...] | Floridalma Lambert | | | | + + + + + + + + | Specimen | + + | Blood - Blood | + + + + + | Narrative | Performed At | + + + | [facility] ([facility] | | | [place] [address] | | | [place] [address] | | + + + + + + + + | Performing | Address | City/State/Zipcode | Phone Number | | Organization | | | | + + + + + | [facility] | [address] | [place] [address] | | | LABORATORY | | | | + + + + + FREE T4, SERUM (09/12/2008 12:49 PM PST) [...] change effective | | | 05/31/07 [facility] ([facility]) | | | [facility] [address] | | | [place] [address] | | + + + + + + + + | Performing | Address | City/State/Zipcode | Phone Number | | Organization | | | | + + + + + | [facility] | [address] | [place] [address] | | | LABORATORY | | | [...] Performed At | + + + | [id number] Estimated GFR > 60 mL/min/1.73 sq m if non- | [facility] | | [place] [id number] Estimated GFR > 60 mL/min/1.73 sq m if | DEPARTMENT OF | | [place] GFR is estimated using the MDRD equation [...] | + + + + + | [facility] DEPARTMENT OF | [address] | [place] [address] | | | PATHOLOGY | [address] | | | + + + + + | [facility] | [address] | [place] [address] | | | PATHOLOGY | [address] [...] change effective | | | 05/31/07 [facility] ([facility]) | | | [facility] [place] [address] | | | [place] [address] | | + + + + + + + + | Performing | Address | City/State/Zipcode | Phone Number | | Organization | | | | + + + + + | [facility] | [address] | [place] [address] | | | LABORATORY | | | [...]
--- OUTSIDE RECORDS SUMMARY | ~2019-07-14 | XMS | Encounter Summary ---
Demographics + + + | Address | [address] | | | [place] [address] | + + + | Home Phone [...] + + + | Author | [place] [employer] [facility] | + + + | Organization | [facility] [...] Team Providers + +------+ + | Care Export Freight Clerk Name | Role | Phone | + +------+ + | Priscilla Ramírez PA-C | PCP | | + +------+ + Encounter Details +--------+ + + + + | Date | Type | Department | Care Team | Description | +--------+ + + + + | 05/13/ | Abstract | Cardiology General | Zuleika Hernandez, | | | 2018 | | at [facility] [address] | [address] | | | | | [address] Mailcode: | [address] | | | | | [address] | [place], [place] | | | | | Health and Healing, | [address] | | | | | [facility] | [phone] | | | | | floor [place], [place] | | | | | | [address] | | | | | | [phone] | | | +--------+ + + + [...] Rd | | | | | | [place], [place] | | | | | | [address] | | | | | | [phone] | | | | | | | | +--------+---------+ + + + documented as of this encounter Visit Diagnoses Not on filedocumented in this encounter"
--- OUTSIDE RECORDS SUMMARY | ~2019-07-14 | XMS | Encounter Summary ---
Demographics + + + | Address | [address] | | | [place] [address] | + + + | Home Phone [...] + + + | Author | [place] [employer] [facility] | + + + | Organization | Replaced By [facility] [...] Team Providers + +------+ + | Care Wage And Salary Administrator Name | Role | Phone | + +------+ + | No Pcp Per Patient | PCP | Unavailable | + +------+ + Encounter Details +--------+ + + + + | Date | Type | Department | Care Team | Description | +--------+ + + + + | 04/03/ | Orders Only | Endocrinology | Jaclyn Crawford, | Diabetes Insipidus | | 2005 | | Pituitary Disease | [address] | (HCC); Benign | | | | Clinic [address] | [address] | Neoplasm of | | | | [address] | [place], [place] | Pituitary Gland and | | | | Mailcode: [id number] | [address] | Craniopharyngeal | | | | [facility] | [phone] | Duct (Pouch) ([facility]) | | | | [address] | | | | | | [place], [place] | | | | | | [address] | | | | | | [phone] | | | +--------+ + + + [...] | | 2019 | Visit | | [address] | | | | | | [address] | | | | | | [place], [place] | | | | | | [address] | | | | | | [phone] | | | | | | | | +--------+---------+ + + + + +------+--------+ + + | Name | Type | Priori | Associated Diagnoses | Order Schedule | | | | ty | | | + +------+--------+ + + | PPV LAB COLLECT, | Lab | Routin | Diabetes Insipidus | Ordered: 04/03/2006 | | VENIPUNCTURE | | e | (HCC) | | + +------+--------+ + + documented as of this encounter Procedures + +--------+ + + + | Procedure Name | Priori | Date/Time | Associated Diagnosis | Comments | | | ty | | | | + +--------+ + + + | BASIC METABOLIC SET | Routin | 04/03/2006 | Diabetes Insipidus | Results for this | | (NA, K, CL, TCO2, | e | 3:08 PM | (HCC) | procedure are in the | | BUN, CR, GLU, CA) | | PDT | | results section. | + +--------+ + + + documented in this encounter Results BASIC METABOLIC SET (04/03/2006 3:08 PM PDT) + +-------+ + + + | Component | Value | Ref Range | Performed | Pathologist | | | | | At | Signature | + +-------+ + + + | GLUCOSE, | 108 | 65 - 110 mg/dL | [facility] [...] +-------+ + + + | SODIUM, | 138 | 136 - 145 | [facility] | | | PLASMA | | mmol/L | DEPARTMENT | | | (LAB) | | | OF | | | | | | PATHOLOGY | | + +-------+ + + + | POTASSIUM, | 4.0 | 3.5 - 5.1 | [facility] | | | PLASMA | | mmol/L | DEPARTMENT | | | (LAB) | | | OF | | | | | | PATHOLOGY | | + +-------+ + + + | CHLORIDE, | 105 | 98 - 107 mmol/L | [facility] [...] Performed At | + + + | [id number] Estimated GFR > 60 mL/min/1.73 sq m if non- | [facility] | | [id number] Estimated GFR > 60 mL/min/1.73 sq m [...] + + + + + | [facility] | [address] | [place] [address] | | | PATHOLOGY | [address] | | | + + + + + | [facility] | [address] | [place] [address] | | | PATHOLOGY | [address] | | | + + + + + documented in this encounter Visit Diagnoses + + | Diagnosis | + + | Diabetes insipidus (HCC) Diabetes insipidus | + + | Benign neoplasm of pituitary gland and craniopharyngeal duct (pouch) (HCC) Benign | | neoplasm of pituitary gland and craniopharyngeal duct (pouch) | + + documented in this encounter"
--- OUTSIDE RECORDS SUMMARY | ~2019-07-14 | XMS | Encounter Summary ---
Demographics + + + | Address | [address] | | | [place] [address] | + + + | Home Phone [...] + + + | Author | [place] [facility] | + + + | Organization | [facility] | + + + | Address | Unknown | + + + | Phone | Unavailable | + + + Support + + +---------+ + | Name | Relationship | Address | Phone | + + +---------+ + | Alexandria Dixon | ECON | Unknown | | + + +---------+ + Care Team Providers + +------+ + | Care Railroad Emergency Services Manager Name | Role | Phone | + +------+ + | Priscilla Ramírez PA-C | PCP | | + +------+ + Encounter Details +--------+ + + + + | Date | Type | Department | Care Team | Description | +--------+ + + + + | 08/15/ | MyChart | Cardiology General | | Referral for | | 2016 | Encounter | at [facility] [address] | | Cardiology | | | | Nura Blackwell Mailcode: | | | | | | [address] for | | | | | | Health and Healing, | | | | | | | | | | | | floor [place], [place] | | | | | | [address] | | | | | | [phone] | | | +--------+ + + + [...] | | 2019 | Visit | | [address] | | | | | | [address] | | | | | | [place], [place] | | | | | | [address] | | | | | | [phone] | | | | | | | | +--------+---------+ + + + documented as of this encounter Visit Diagnoses Not on filedocumented in this encounter"
--- OUTSIDE RECORDS SUMMARY | ~2019-07-14 | XMS | Encounter Summary ---
Demographics + + + | Address | [address] | | | [place] [address] | + + + | Home Phone | | + + + | Preferred Language | Unknown | + + + | Marital Status | Single | + + + | Adventist Affiliation | Unknown | + + + | Race | Unknown | + + + | Ethnic Group | Unknown | + + + Author + + + | Author | [facility] | | | and [place] | + + + | Organization | [facility] | [...] Team Providers + +------+ + | Care Windows Vmware Engineer Name | Role | Phone | + +------+ + | Jinny Bergeron MD | PCP | | + +------+ + Reason for Visit +--------+ + | Reason | Comments | +--------+ + | Apnea | | +--------+ + Evaluate & Treat (Routine) +--------+--------+ + + + + | Status | Reason | Specialty | Diagnoses / | Referred By | Referred To | | | | | Procedures | Contact | Contact | +--------+--------+ + + + + | Closed | | Physician | Diagnoses | Michael, | Sumanth Champion | | | | Drafter Electrical / | Obstructive | Jhonny Perkins DO | D, BRETT [address] | | | | Sleep | sleep apnea | [address] [address] | | | | Medicine | (adult) | [address] | [place], | | | | | (pediatric) | [address] | [place] [address] | | | | | 1yr bring | [address] | Phone: | | | | | all equip | [place], [place] | [phone] | | | | | pw@ 130 | [address] | Fax: | | | | | Procedures | Phone: | [phone] | | | | | OFFICE VISIT | [phone] | | | | | | EXTENDED | Fax: | | | | | | | [phone] | | +--------+--------+ + + + + Encounter Details +--------+---------+ + + + | Date | Type | Department | Care Team | Description | +--------+---------+ + + + | 08/16/ | Office | [facility] [place] [facility] | Sumanth Champion PA | MALLIKA on CPAP (Primary | | 2015 | Visit | SLEEP DISORDER [address] | [address] | Dx) | | | | [address] [place] | [place] | | | | | [place] [address] | [address] | | | | | [phone] | | | +--------+---------+ + + + [...] + + + | Blood Pressure | 118/86 | 08/16/2014 2:01 PM | | | | | PST | | + + + + + | Pulse | 102 | 08/16/2014 2:01 PM | | | | | PST | | + + + + + | Temperature | - | - | | + + + + + | Respiratory Rate | 16 | 08/16/2014 2:01 PM | | | | | PST | | + + + + + | Oxygen Saturation | 98% | 08/16/2014 2:01 PM | | | | | PST | | + + + + + | Inhaled Oxygen | - | - | | | Concentration | | | | + + + + + | Weight | 137 kg (302 lb 1.6 | 08/16/2014 2:01 PM | | | | oz) | PST | | + + + + + | Height | - | - | | + + + + + | Body Mass Index | 45.93 | 10/30/2010 12:00 AM | | | | | PDT | | + + + + + documented in this encounter Progress Notes Liss Fontenot, Master of Arts - 08/16/2014 1:51 PM PSTFormatting of this note might be di fferent from the original. 08/16/14 1300 Bolanos Depression Inventory-II Depression Score 7 - Minimal depression Insomnia Severity Index Insomnia Severity Index 10 [place] Sleepiness Scale Sitting and reading 2 Watching TV 2 Sitting, inactive in a public place (e.g. a theatre or a meeting) 0 As a passenger in a car for an hour without a break 3 Lying down to rest in the afternoon when circumstances permit 3 Sitting and talking to someone 0 Sitting quietly after a lunch without alcohol 1 In a car, while stopped for a few minutes in traffic 0 Total score 11 SF-36v2 Score PF 54.93 RP 51.96 BP 29.15 GH 32.91 VT 39.6 SF 45.94 RE 55.88 MH 58.46 PCS 38.63 MCS 54.04 ofito, BRETT Schneider - 1:33 PM PST Subjective: Patient ID: Amairani Tyler is a 34 y.o. male. HPI last office visit was: 04/13/2013 date of polysomnography: 12/10/2006 AHI: 38.9 O2%: 75% with 19.7 minutes below 88% Machine type: ResMed S9 with nasal mask obtained from: [facility] [place] pressure: 12-18 cm 95%: 13.2 cm maximum: 13.6 cm CPAP download shows CPAP useage # nights: 282/461 229/369 % of nights >4 hours: 28% average usage (all nights): 3:10 2:26 2:29 average usage (nights used): 3:38 4:00 4:00 AHI: 0.5 Shai comes in for CPAP compliance. He has struggled with being able to wear it for extende d periods of time on a regular basis for a variety of reasons. He continue to work seventy hours per week and occasionally works twenty hour days. He is hopeful that this will not co ntinue. This has become very stressful for him. He is also choosing to sleep without his C PAP at times. There are also nights that he is taking off his mask during the night without knowing it. We discussed the fact that we sleep in ninety minute sleep cycles throughout t he night. We briefly wake up after each of these cycles, but it is usually a subconscious p eriod. We discussed the fact that CPAP can disrupt these cycles and cause it to be a consci ous wakeup. For others, this remains a subconscious wakeup and the take off their mask and go back to sleep without remembering it. As the CPAP becomes more familiar, it returns to b eing a subconscious wakeup. His is getting very concerned about his health and is cont inually urging him to use his CPAP. He has a history of two AMI's and recently began taking metformin for diabetes. I have discussed the download and results of the paperwork in detail. He is unchanged or i mproved in nearly all categories, with no areas of concern. The download shows that his sle ep apnea is well controlled, with an AHI of 0.5. It also shows that his leaks are well cont rolled. Review of Systems Objective: Physical Exam Assessment: Problem # 1: OBSTRUCTIVE SLEEP APNEA (ICD-327.23) This is well controlled with CPAP. He is struggling with wearing his CPAP consistently and with wearing it for the duration of the night. Plan: He is to continue with CPAP indefinitely. I have recommended that he work toward wearing h is CPAP 100% of the time he is asleep. I have also recommended that he watch television or read while wearing his CPAP for 30-60 prior to going to sleep to help desensitize him to the CPAP. I will follow up again in 6 months, sooner prn. Thirty minutes were spent [id number], wi th the majority of time spent in counseling. Sumanth Champion PA-C cc: Jinny Bergeron MD documented in this enco unter Plan of Treatment +--------+---------+ + + + | Date | Type | Specialty | Care Team | Description | +--------+---------+ + + + | 11/21/ | Office | Sleep Medicine | Sumanth Champion PA | | | 2019 | Visit | | [address] | | | | | | [place] | | | | | | [address] | | | | | | | | +--------+---------+ + + + documented as of this encounter Visit Diagnoses + + | Diagnosis | + + | MALLIKA on CPAP - Primary Obstructive sleep apnea (adult) (pediatric) | + + documented in this encounter"
--- OUTSIDE RECORDS SUMMARY | ~2019-07-14 | XMS | Encounter Summary ---
Demographics + + + | Address | [address] | | | [place] [address] | + + + | Home Phone [...] + + | Author | [place] [employer] [facility] | + + + | Organization | [facility] [...] Providers + +------+ + | Care Director Life Name | Role | Phone | + +------+ + | No Pcp Per Patient | PCP | Unavailable | + +------+ + Encounter Details +--------+ + + + + | Date | Type | Department | Care Team | Description | +--------+ + + + + | 10/30/ | MyChart | Neurosurgery at | Jaclyn Crawford, | RE: Refills | | 2008 | Encounter | [facility] [address] | [address] | | | | | [place] Mailcode: CH8N | [address] | | | | | [facility] | [place], [place] | | | | | and Healing, | [address] | | | | | [facility] 1 | [phone] | | | | | [place], [place] | | | | | | [address] | | | | | | [phone] | | | +--------+ + + + [...] | | | | | | [address] | | | | | | [place], [place] | | | | | | [address] | | | | | | [phone] | | | | | | | | +--------+---------+ + + + documented as of this encounter Visit Diagnoses Not on filedocumented in this encounter"
--- OUTSIDE RECORDS SUMMARY | ~2019-07-14 | XMS | Encounter Summary ---
Demographics + + + | Address | [address] | | | [place] [address] | + + + | Home Phone [...] + + | Author | [place] [employer] [facility] | + + + | Organization | [facility] | + + + | Address | Unknown | + + + | Phone | Unavailable | + + + Support + + +---------+ + | Name | Relationship | Address | Phone | + + +---------+ + | Alexandria Dixon | ECON | Unknown | | + + +---------+ + Care Team Providers + +------+ + | Care Oxygen System Tester Name | Role | Phone | [...] | | | [place] Mailcode: CH8N | DNP,[place] [address] | | | | | [facility] | [address] [place], | | | | | and Healing, | [place] [address] | | | | | Building [address] | [phone] | | | | | [place], [place] | | | | | | [address] | | | | | | [phone] | | | +--------+--------+ + + + [...] | | | | | | [place], [place] | | | | | | [address] | | | | | | [phone] | | | | | | | | +--------+---------+ + + + documented as of this encounter Visit Diagnoses + + | Diagnosis | + + | Panhypopituitarism (HCC) Panhypopituitarism | + + documented in this encounter"
--- OUTSIDE RECORDS SUMMARY | ~2019-07-14 | XMS | Encounter Summary ---
Demographics + + + | Address | [address] | | | [place] [address] | + + + | Home Phone [...] + + + | Author | [place] [employer] [facility] | + + + | Organization | [facility] | [...] Team Providers + +------+ + | Care Building Carpenter Helper Name | Role | Phone | [...] | Diagnoses | Donnie, | Rad Mri | | | | | Pituitary | Cathie, | [facility] [address] | | | | | adenoma | DNP,COMBAT CONTROL MANAGER,[place] | [address] | | | | | ([facility]) | [address] | Mailcode: | | | | | Growth | Ave | [facility] | | | | | hormone | [place], [place] | for Health | | | | | deficiency | [address] | and Healing, | | | | | (HCC) | Phone: | Building 1, | | | | | Panhypopitui | [phone] | 3rd Floor | | | | | tarism ([facility]) | Fax: | [place], [place] | | | | | Procedures | [phone] | [address] | | | | | MRI | | Phone: | | | | | PITUITARY | | [phone] | | | | | WWO CONTRAST | | Fax: | | | | | HI MRI | | [phone] | | | | | BRAIN COMBO | | | +--------+--------+ + + + + Encounter Details +--------+ + + + + | Date | Type | Department | Care Team | Description | +--------+ + + + + | 01/05/ | Analytical Lab Analyst | Neurosurgery at | Donnie, | Pituitary adenoma | | 2019 | | [facility] [address] | Cathie, | ([facility]) (Primary Dx); | | | | Ave Mailcode: CH8N | DNP,COMBAT CONTROL MANAGER,[place] [address] | 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[facility] | [address] [place], | deficiency ([facility]); | | | | and Healing, | [place] [address] | Panhypopituitarism | | | | Building 1 | [phone] | ([facility]) | | | | [place], [place] | | | | | | [address] | | | | | | [phone] | | | +--------+ + + + [...] | | 2019 | Visit | | [address] | | | | | | [address] | | | | | | [place], [place] | | | | | | [address] | | | | | | [phone] | | | | | | | | +--------+---------+ + + + documented as of this encounter Results MRI PITUITARY WWO CONTRAST (02/24/2019 8:32 AM PDT) + + | Specimen | + + | | + + + + + | Narrative | Performed At | + + + | EXAM: MRI PITUITARY WITHOUT AND WITH CONTRAST HISTORY: | [facility] | | evaluate and compare. History of pituitary adenoma status post | RADIOLOGY VOICE | | resection in 2005 COMPARISON: 07/13/2015 MRI TECHNIQUE: | RECOGNITION 2 | | Multiplanar multi-sequence MRI tailored to the pituitary without and | | | with gadolinium based intravenous contrast: FINDINGS: SELLA | | | AND PARASELLAR: The pituitary gland is similar in size and | | | configuration to prior MRI. There is slight heterogeneous enhancement | | | without apparent mass lesion. The infundibulum is midline. Optic | | | chiasm is normal. Parasellar structures are normal. BRAIN: | | | Visualized portions are unremarkable. SOFT TISSUES AND MARROW: | | | Postsurgical changes are seen within the bilateral posterior sphenoid | | | sinuses and clivus from prior resection, with mucosal thickening of | | | the sphenoid sinuses bilaterally, similar to prior MRI. | | | IMPRESSION: Stable posttreatment appearance of the pituitary | | | without new apparent mass lesion I have personally reviewed | | | the images and, if necessary, edited the report. I agree with the | | | report as now presented. Final signature: Jewell Hurd MD | | | 02/24/2019 1:39 PM Preliminary: Bee Bal MD 02/24/2019 | | | 10:55 AM Dictation initiated: Bee Bal MD 02/24/2019 | | | 8:55 AM | | + + + + + | Procedure Note | + + | Service Account, Radiant Res In Interface - 02/24/2019 1:40 PM PDT EXAM: MRI | | PITUITARY WITHOUT AND WITH CONTRAST HISTORY: evaluate and compare. History of pituitary | | adenoma status post resection in 2006 COMPARISON: 07/13/2015 MRI TECHNIQUE: Multiplanar | | multi-sequence MRI tailored to the pituitary without and with gadolinium based | | intravenous contrast: FINDINGS: SELLA AND PARASELLAR: The pituitary gland is similar in | | size and configuration to prior MRI. There is slight heterogeneous enhancement without | | apparent mass lesion. The infundibulum is midline. Optic chiasm is normal. Parasellar | | structures are normal. BRAIN: Visualized portions are unremarkable.SOFT TISSUES AND | | MARROW: Postsurgical changes are seen within the bilateral posterior sphenoid sinuses | | and clivus from prior resection, with mucosal thickening of the sphenoid sinuses | | bilaterally, similar to prior MRI. IMPRESSION: Stable posttreatment appearance of the | | pituitary without new apparent mass lesion I have personally reviewed the images and, | | if necessary, edited the report. I agree with the report as now presented. Final | | signature: Jewell Hurd MD 02/24/2019 1:39 PM Preliminary: Bee Bal MD | | 02/24/2019 10:55 AM Dictation initiated: Bee Bal MD 02/24/2019 8:55 AM | | | |IMPRESSION: | | | |Stable posttreatment appearance of the pituitary without new apparent mass lesion | | | | | | | |I have personally reviewed the images and, if necessary, edited the report. I agree with e report as now presented. | | | |Final signature: Jewell Hurd MD 02/24/2019 1:39 PM | |Preliminary: Bee Bal MD 02/24/2019 10:55 AM | |Dictation initiated: Bee Bal MD 02/24/2019 8:55 AM | + + + +---------+ + [...] (HCC) Pituitary dwarfism | + + | Panhypopituitarism (HCC) Panhypopituitarism | + + documented in this encounter"
--- OUTSIDE RECORDS SUMMARY | ~2019-07-14 | XMS | Encounter Summary ---
Demographics + + + | Address | [address] | | | [place] [address] | + + + | Home Phone [...] + + + | Author | [place] [employer] [facility] | + + + | Organization | [facility] [...] Team Providers + +------+ + | Care Appraiser Personal Property Name | Role | Phone | + +------+ + | Jhonny Rodriguez DO | PCP | | + +------+ + Encounter Details +--------+ + + + + | Date | Type | Department | Care Team | Description | +--------+ + + + + | 07/14/ | MyChart | Neurosurgery at | Donnie, | RE: Meds | | 2011 | Encounter | [facility] [address] | | | | | [place] Mailcode: CH8N | DNP,ASSEMBLER METAL FURNITURE,[place] [address] | | | | | [facility] | [address], | | | | | and [place], | [place] [address] | | | | | [place] [address] | [phone] | | | | | [place], [place] | | | | | | [address] | | | | | | [phone] | | | +--------+ + + + [...] Rd | | | | | | [place], [place] | | | | | | [address] | | | | | | [phone] | | | | | | | | +--------+---------+ + + + documented as of this encounter Visit Diagnoses Not on filedocumented in this encounter"
--- OUTSIDE RECORDS SUMMARY | ~2019-07-14 | XMS | Encounter Summary ---
Demographics + + + | Address | [address] | | | [place] [address] | + + + | Home Phone [...] + + + | Author | [place] [facility] [employer] | + + + | Organization | [facility] [...] Team Providers + +------+ + | Care Electronic System Engineer Name | Role | Phone | + +------+ + PCP | Unavailable | + +------+ + Encounter Details +--------+ + + + + | Date | Type | Department | Care Team | Description | +--------+ + + + + | 08/22/ | Office | [facility], | Clinic, [...] as of this encounter Progress Notes Interface, Engine Repairer In - 09/07/2005 2:04 AM [facility] [id number] TOREY TRIVEDI V Clinic Date: 08/22/2005 Clinic: Pituitary Clinic Reason for Visit: Amairani Connolly is a 24-year-old male who presented to the Pituitary Clinic on August 22, 2005, for consultation of a low-dose Cortrosyn stimulation test. This has been staffed by Dr. Lb Guillaume. Procedure Note: I spent a total of 60 minutes [id number] time in this visit of which over 50% was spent in coordination of this patient's care. I performed the 1-mcg Cortrosyn stimulation test, to test a pituitary-caused adrenal insufficiency in the light of the patient's pituitary symptoms. The risks and benefits of the procedure were discussed with the patient and the questions were answered. After an IV was placed in the patient's left arm, baseline Cortrosyn, ACTH as well as other labs were drawn. One mcg per mL of Cortrosyn was prepared by reconstituting 250 mcg vial lyophilized Cortrosyn with 250 mL of normal saline, and 1 mcg in 1 mL of Cortrosyn was administered to the patient. A second cortisol was drawn one half hour later. The IV was then removed and the site dressed. There were no aggressive ( ) ends. The unused portion of the diluted Cortrosyn was discarded. Shruti Landa. Lb Guillaume M.D., Ph.D. / [id number] / [id number] / [id number] / [id number] Electronically signed by Lb Guillaume (Bill) 09-06-2005 06:59:41 PM documented i n this encounter Plan [...] | | | | | | [place], [place] | | | | | | [address] | | | | | | [phone] | | | | | | | | +--------+---------+ + + + documented as of this encounter Visit Diagnoses Not on filedocumented in this encounter"
--- OUTSIDE RECORDS SUMMARY | ~2019-07-14 | XMS | Encounter Summary ---
Demographics + + + | Address | [address] | | | [place] [address] | + + + | Home Phone [...] + + + | Author | [place] [facility] | + + + | Organization | [facility] | + + + | Address | Unknown | + + + | Phone | Unavailable | + + + Support + + +---------+ + | Name | Relationship | Address | Phone | + + +---------+ + | Alexandria Dixon | ECON | Unknown | | + + +---------+ + Care Team Providers + +------+ + | Care Flatlock Sewing Machine Operator Name | Role | Phone | + +------+ + | No Pcp Per Patient | PCP | Unavailable | + +------+ + Encounter Details +--------+ + + + + | Date | Type | Department | Care Team | Description | +--------+ + + + + | 01/01/ | MyChart | Neurosurgery at | Donnie, | 2 questions | | 2009 | Encounter | [facility] [address] | Cathie | | | | | [place] Mailcode: CH8N | DNP,MOTOR CARRIER INSPECTOR,[place] [address] | | | | | [facility] | [address] [place], | | | | | and Healing, | [place] [address] | | | | | Building [address] | [phone] | | | | | [place], [place] | | | | | | [address] | | | | | | [phone] | | | +--------+ + + + [...] Rd | | | | | | [place], [place] | | | | | | [address] | | | | | | [phone] | | | | | | | | +--------+---------+ + + + documented as of this encounter Visit Diagnoses Not on filedocumented in this encounter"
--- OUTSIDE RECORDS SUMMARY | ~2019-07-14 | XMS | Encounter Summary ---
Demographics + + + | Address | [address] | | | [place] [address] | + + + | Home Phone | | + + + | Preferred Language | Unknown | + + + | Marital Status | Single | + + + | Religion Affiliation | Unknown | + + + | Race | Unknown | + + + | Ethnic Group | Unknown | + + + Author + + + | Author | [facility] | | | and [place] | + + + | Organization | [facility] | | | and [place] [...] Team Providers + +------+ + | Care Booster Station Operator Name | Role | Phone | + +------+ + PCP | Unavailable | + +------+ + Encounter Details +--------+ + + + + | Date | Type | Department | Care Team | Description | +--------+ + + + + | 03/17/ | [facility] | [facility] | | | | 2005 | Encounter | MED CTR XRAY [address] | | | | | | [address] | | | | | | [place] [address] | | | | | | [phone] | | | +--------+ + + + [...] 2020 | Visit | | [address] | | | | | | [place] | | | | | | [address] | | | | | | | | +--------+---------+ + + + documented as of this encounter Visit Diagnoses Not on filedocumented in this encounter"
--- OUTSIDE RECORDS SUMMARY | ~2019-07-14 | XMS | Encounter Summary ---
Demographics + + + | Address | [address] | | | [place] [address] | + + + | Home Phone [...] + + + | Author | [place] [employer] [facility] | + + + | Organization | [facility] [...] Team Providers + +------+ + | Care Contingents Supervisor Name | Role | Phone | + +------+ + | No Pcp Per Patient | PCP | Unavailable | + +------+ + Encounter Details +--------+ + + + + | Date | Type | Department | Care Team | Description | +--------+ + + + + | 11/06/ | MyChart | Neurosurgery at | Donnie, | RE: Appointment | | 2011 | Encounter | [facility] [address] | Cathie | | | | | [place] Mailcode: CH8N | DNP,NEWS VIDEOGRAPHER,[place] [address] | | | | | [facility] | [address] [place], | | | | | and Healing, | [place] [address] | | | | | [facility] 1 | [phone] | | | | | [place], [place] | | | | | | [address] | | | | | | [phone] | | | +--------+ + + + [...] Rd | | | | | | [place], [place] | | | | | | [address] | | | | | | [phone] | | | | | | | | +--------+---------+ + + + documented as of this encounter Visit Diagnoses Not on filedocumented in this encounter"
--- OUTSIDE RECORDS SUMMARY | ~2019-07-14 | XMS | Encounter Summary ---
Demographics + + + | Address | [address] | | | [place] [address] | + + + | Home Phone [...] + + + | Author | [place] [employer] [facility] | + + + | Organization | [facility] [...] Team Providers + +------+ + | Care Inspector Outside Production Name | Role | Phone | + [...] | | | Rosalva Mailcode: [id number] | DNP,MANAGER BIOSTATISTICS,[place] [address] | | | | | [facility] | [place], | | | | | and [place], | [place] [address] | | | | | [place] [address] | [phone] | | | | | [place], [place] | | | | | | [address] | | | | | | [phone] | | | +--------+ + + + [...] Rd | | | | | | [place], [place] | | | | | | [address] | | | | | | [phone] | | | | | | | | +--------+---------+ + + + documented as of this encounter Visit Diagnoses Not on filedocumented in this encounter"
--- OUTSIDE RECORDS SUMMARY | ~2019-07-14 | XMS | Encounter Summary ---
Demographics + + + | Address | [address] | | | [place] [address] | + + + | Home Phone [...] + + + | Author | [place] [employer] [facility] | + + + | Organization | [facility] | + + + | Address | Unknown | + + + | Phone | Unavailable | + + + Support + + +---------+ + | Name | Relationship | Address | Phone | + + +---------+ + | Alexandria Dixon | ECON | Unknown | | + + +---------+ + Care Team Providers + +------+ + | Care Laboratory Monitor Name | Role | Phone | + +------+ + | No Pcp Per Patient | PCP | Unavailable | + +------+ + Encounter Details +--------+ + + + + | Date | Type | Department | Care Team | Description | +--------+ + + + + | 06/09/ | Manager Game | Neurosurgery at | Donnie, | | | 2008 | | [facility] [address] | Cathie | | | | | Rosalva Mailcode: [id number] | DNP,EDUCATIONAL PSYCHOLOGY PROFESSOR,[place] [address] | | | | | [facility] | [place], | | | | | and [place]aling, | [place] [address] | | | | | [facility] | [phone] | | | | | Floor [place], [place] | | | | | | [address] | | | | | | [phone] | | | +--------+ + + + [...] Rd | | | | | | [place], [place] | | | | | | [address] | | | | | | [phone] | | | | | | | | +--------+---------+ + + + documented as of this encounter Visit Diagnoses Not on filedocumented in this encounter"
--- OUTSIDE RECORDS SUMMARY | ~2019-07-14 | XMS | Encounter Summary ---
Demographics + + + | Address | [address] | | | [place] [address] | + + + | Home Phone [...] + + + | Author | [place] [employer] [facility] | + + + | Organization | [facility] | + + + | Address | Unknown | + + + | Phone | Unavailable | + + + Support + + +---------+ + | Name | Relationship | Address | Phone | + + +---------+ + | Alexandria Dixon | ECON | Unknown | | + + +---------+ + Care Team Providers + +------+ + | Care Flour Mixer Helper Name | Role | Phone | + +------+ + | No Pcp Per Patient | PCP | Unavailable | + +------+ + Encounter Details +--------+ + + + + | Date | Type | Department | Care Team | Description | +--------+ + + + + | 02/20/ | Telephone | Neurosurgery at | Jaclyn Crawford, | | | 2010 | | [facility] [address] | [address] | | | | | Rosalva Mailcode: [id number] | [address] | | | | | [facility] | [place], [place] | | | | | and Healing, | [address] | | | | | [facility] [address] | [phone] | | | | | [place], [place] | | | | | | [address] | | | | | | [phone] | | | +--------+ + + + [...] Rd | | | | | | [place], [place] | | | | | | [address] | | | | | | [phone] | | | | | | | | +--------+---------+ + + + documented as of this encounter Visit Diagnoses Not on filedocumented in this encounter"
--- OUTSIDE RECORDS SUMMARY | ~2019-07-14 | XMS | Encounter Summary ---
Demographics + + + | Address | [address] | | | [place] [address] | + + + | Home Phone [...] + + + | Author | [place] [employer] [facility] | + + + | Organization | [facility] | + + + | Address | Unknown | + + + | Phone | Unavailable | + + + Support + + +---------+ + | Name | Relationship | Address | Phone | + + +---------+ + | Alexandria Dixon | ECON | Unknown | | + + +---------+ + Care Team Providers + +------+ + | Care Coating Mixer Name | Role | Phone | + +------+ + | Priscilla Ramíerz PA-C | PCP | | + +------+ + Reason for Visit + + + | Reason | Comments | + + + | Follow-up visit | | + + + | Appointment | | + + + Encounter Details +--------+ + + + + | Date | Type | Department | Care Team | Description | +--------+ + + + + | 06/02/ | Telephone | Cardiology General | Zuleika Hernandez, | Follow-up visit; | | 2019 | | at [facility] [address] | [address] | Appointment | | | | [place] Mailcode: | [facility] | | | | | [address] | [place], [place] | | | | | Health and [facility], | [address] | | | | | [facility] | [phone] | | | | | floor [place], [place] | | | | | | [address] | | | | | | [phone] | | | +--------+ + + + [...] [place] | | | | | | [address] | | | | | | [phone] | | | | | | | | +--------+---------+ + + + documented as of this encounter Visit Diagnoses Not on filedocumented in this encounter"
--- OUTSIDE RECORDS SUMMARY | ~2019-07-14 | XMS | Encounter Summary ---
Demographics + + + | Address | [address] | | | [place] [address] | + + + | Home Phone [...] + + | Author | [place] [employer] [facility] | + + + | Organization | [facility] | [...] Team Providers + +------+ + | Care Distribution Supervisor Name | Role | Phone | [...] Refill Request | | 2012 | | [facility] [address] | Cathie, | | | | | Rosal[place] Mailcode: [id number] | DNP,TROLLEY CAR OPERATOR,[place] [address] | | | | | [facility] | [place], | | | | | and Healing, | [place] [address] | | | | | Building [address] | [phone] | | | | | [place], [place] | | | | | | [address] | | | | | | [phone] | | | +--------+--------+ + + + [...] Rd | | | | | | [place], [place] | | | | | | [address] | | | | | | [phone] | | | | | | | | +--------+---------+ + + + documented as of this encounter Visit Diagnoses Not on filedocumented in this encounter"
--- OUTSIDE RECORDS SUMMARY | ~2019-07-14 | XMS | Encounter Summary ---
Demographics + + + | Address | [address] | | | [place] [address] | + + + | Home Phone [...] + + + | Author | [place] [employer] [facility] | + + + | Organization | [facility] [...] Providers + +------+ + | Care Air Export Operations Agent Name | Role | Phone | + [...] Yrn | (RANEXA) | | | | [place] at | [facility] | | | | | [place] [address] | [place], [place] | | | | | [facility] [address] | [address] | | | | | [place], [place] | [phone] | | | | | [address] | | | | | | [phone] | | | +--------+ + + + [...] Rd | | | | | | [place], [place] | | | | | | [address] | | | | | | [phone] | | | | | | | | +--------+---------+ + + + documented as of this encounter Visit Diagnoses Not on filedocumented in this encounter"
--- OUTSIDE RECORDS SUMMARY | ~2019-07-14 | XMS | Encounter Summary ---
Demographics + + + | Address | [address] | | | [place] [address] | + + + | Home Phone [...] + + | Author | [place] [employer] [facility] | + + + | Organization | [facility] [...] Team Providers + +------+ + | Care Uc Architect Name | Role | Phone | [...] | | | | Abdoulaye Mailcode:[id number] | DNP,LIQUOR ESTABLISHMENT MANAGER,[place] [address] | | | | | [employer] | [place], | | | | | [place], [place] | [place] [address] | | | | | [address] | [phone] | | | | | [phone] | | | +--------+ + + + [...] | | | | | | [place], [place] | | | | | | [address] | | | | | | [phone] | | | | | | | [...] + + + | [facility] | [address] | [place] [address] | | | LABORATORY | | | [...] | + + + + + | [facility] | [address] | [place] [address] | | | LABORATORY | | | [...] + + + | [facility] | [address] | [place] [address] | | | LABORATORY | | | [...] | + + + + + | [facility] | [address] | [place] [address] | | | LABORATORY | | | [...] + + + | [facility] | [address] | [place], [place] | | | | | [address] | | + + + + + [...] + + + | [facility] | [address] | [place] [address] | | | LABORATORY | | | [...] + + + | [facility] | [address] | [place] [address] | | | LABORATORY | | | | + + + + + documented in this encounter Visit Diagnoses Not on filedocumented in this encounter"
--- OUTSIDE RECORDS SUMMARY | ~2019-07-14 | XMS | Encounter Summary ---
Demographics + + + | Address | [address] | | | [place] [address] | + + + | Home Phone [...] + + + | Author | [place] [employer] [facility] | + + + | Organization | [facility] | + + + | Address | Unknown | + + + | Phone | Unavailable | + + + Support + + +---------+ + | Name | Relationship | Address | Phone | + + +---------+ + | Alexandria Dixon | ECON | Unknown | | + + +---------+ + Care Team Providers + +------+ + | Care Woods Rider Name | Role | Phone | + [...] Description | +--------+--------+ + + + | 03/17/ | Refill | Neurosurgery at | Donnie, | Refill Request | | 2010 | | [facility] [address] | Cathie, | | | | | Rosalva Mailcode: [id number] | DNP,BILINGUAL OPERATOR,[place] [address] | | | | | [facility] | [place], | | | | | and [facility], | [place] [address] | | | | | Building 1 | [phone] | | | | | [place], [place] | | | | | | [address] | | | | | | [phone] | | | +--------+--------+ + + + [...] Rd | | | | | | [place], [place] | | | | | | [address] | | | | | | [phone] | | | | | | | | +--------+---------+ + + + documented as of this encounter Visit Diagnoses Not on filedocumented in this encounter"
--- OUTSIDE RECORDS SUMMARY | ~2019-07-14 | XMS | Encounter Summary ---
Demographics + + + | Address | [address] | | | [place] [address] | + + + | Home Phone [...] + + + | Author | [place] [employer] [facility] | + + + | Organization | [facility] & Science [facility] [...] Providers + +------+ + | Care Lead Blender Name | Role | Phone | + [...] Refill Request | | 2010 | | [facility] [address] | Cathie, | | | | | Ros[place] Mailcode: [id number] | DNP,EMPLOYEE BENEFITS INSURANCE AGENT,[place] [address] | | | | | [facility] | [place]ura [address] [place], | | | | | and [facility], | [place] [address] | | | | | Building 1 | [phone] | | | | | [place], [place] | | | | | | [address] | | | | | | [phone] | | | +--------+--------+ + + + [...] Rd | | | | | | [place], [place] | | | | | | [address] | | | | | | [phone] | | | | | | | | +--------+---------+ + + + documented as of this encounter Visit Diagnoses Not on filedocumented in this encounter"
--- OUTSIDE RECORDS SUMMARY | ~2019-07-14 | XMS | Encounter Summary ---
Demographics + + + | Address | [address] | | | [place] [address] | + + + | Home Phone [...] + + + | Author | [place] [employer] [facility] | + + + | Organization | [facility] | [...] Team Providers + +------+ + | Care Box Lidder Name | Role | Phone | + +------+ + | No Pcp Per Patient | PCP | Unavailable | + +------+ + Encounter Details +--------+ + + + + | Date | Type | Department | Care Team | Description | +--------+ + + + + | 05/15/ | Orders Only | Endocrinology | Jaclyn Crawford, | 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 | | Pituitary Disease | [address] | Pituitary Gland and | | | | Clinic [address] | [address] | Craniopharyngeal | | | | [address] | [place], [place] | Duct (Pouch) (HCC) | | | | Mailcode: [id number] | [address] | (Primary Dx) | | | | [facility] | [phone] | | | | | [address] | | | | | | [place], [place] | | | | | | [address] | | | | | | [phone] | | | +--------+ + + + [...] | | 2020 | Visit | | [address] | | | | | | [address] | | | | | | [place], [place] | | | | | | [address] | | | | | | [phone] | | | | | | | | +--------+---------+ + + + + +------+--------+ + + | Name | Type | Priori | Associated Diagnoses | Order Schedule | | | | ty | | | + +------+--------+ + + | PPV LAB COLLECT, | Lab | Routin | Benign Neoplasm of | Ordered: 05/15/2006 | | VENIPUNCTURE | | e | [...] | BASIC METABOLIC SET | Routin | 05/15/2006 | Benign Neoplasm of | Results for this | | (NA, K, CL, TCO2, | e | 2:37 PM | Pituitary Gland and | procedure are in the | | BUN, CR, GLU, CA) | | PDT | Craniopharyngeal | results section. | | | | | Duct (Pouch) (HCC) | | + +--------+ + + + documented in this encounter Results BASIC METABOLIC SET (05/15/2006 [...] Performed At | + + + | [id number] Estimated GFR > 60 mL/min/1.73 sq m if non- | [facility] | | [id number] Estimated GFR > 60 mL/min/1.73 sq m [...] + | [facility] DEPARTMENT OF | [address] | [place] [address] | | | PATHOLOGY | [address] | | | + + + + + | [facility] | [address] | [place] [address] | | | PATHOLOGY | [address] [...]
--- OUTSIDE RECORDS SUMMARY | ~2019-07-14 | XMS | Encounter Summary ---
Demographics + + + | Address | [address] | | | [place] [address] | + + + | Home Phone | | + + + | Preferred Language | Unknown | + + + | Marital Status | Single | + + + | Restoration Affiliation | Unknown | + + + | Race | Unknown | + + + | Ethnic Group | Unknown | + + + Author + + + | Author | [facility] | | | and [place] | + + + | Organization | [facility] | | [...] Team Providers + +------+ + | Care Comic Artist Name | Role | Phone | + +------+ + | Priscilla Ramírez PA-C | PCP | | + +------+ + Encounter Details +--------+ + + + + | Date | Type | Department | Care Team | Description | +--------+ + + + + | 10/03/ | Orders Only | [facility] | Juan Johnson | | | 2015 | | CARDIOLOGY NOAH | [address] | | | | | [address] | [address] | | | | | [address] | [place] [address] | | | | | [place], [place] | [phone] | | | | | [address] | | | | | | [phone] | | | +--------+ + + + [...] 2019 | Visit | | [address] | | | | | | [place] | | | | | | [address] | | | | | | | | +--------+---------+ + + + documented as of this encounter Procedures + +--------+ + + + | Procedure Name | Priori | Date/Time | Associated Diagnosis | Comments | | | ty | | | | + +--------+ + + + | NM MYOCARDIAL | Routin | 10/03/2014 | | Results for this | | PERFUSION MULT SPECT | e | 10:14 AM | | procedure are in the | | | | PST | | results section. | + +--------+ + + + documented in this encounter Results NM Myocardial Perfusion Mult SPECT (10/03/2014 10:14 AM PST) + + | Specimen | + + | | + + + + + | Impressions | Performed At | + + + | Abnormal myocardial perfusion imaging. Small apical- inferior callie | | | infarct- ischemia noted. Stress EKG is non diagnostic for ischemia. | | | Borderline normal LV systolic function with apical hypokinesis noted. | | | Juan Johnson MD | | + + + + + + | Narrative | Performed At | + + + | [facility] CARDIOLOGY Nuclear Lexiscan Stress Test TEST | | | DATE: 10/03/2014 INDICATION FOR TEST: 34 year old male being | | | evaluated for coronary artery disease. Chest pain, congestive heart | | | failure, stent 2011. RISK FACTORS: hypertension, diabetes | | | mellitus, smoker, family history, obesity PROCEDURE: 11.1 mCi of | | | 99m Tc Myoview was given intravenously for rest images. The patient | | | received 0.4 mg of Lexiscan intravenously. At 35 seconds 33.0 mCi of | | | 99m Tc Myoview was given intravenously for stress images. Effective | | | Dose Equivalent: 15.1 mSv. REST DATA: HR: 80 bmp BP: 149 / 96. | | | Resting EKG showed NSR 82 BPM. STRESS DATA: Peak heart rate 104 | | | bpm, Peak BP: 168/109. Symptoms shortness of breath, lightheaded, | | | flushed Stress EKG is non diagnostic for ischemia. EJECTION | | | FRACTION: Rest EF: 58% Stress EF: 54% IMAGIN. The quality | | | of the study is good. 2. Perfusion showed inferior-apical partially | | | reversible defect noted. 3. LV cavity size is normal with TID: | | | 1.09). 4. Gated SPECT images showed borderline normal LV systolic | | | function with apical hypokinesis noted. 5. When compared to | | | previous nuclear stress test done in 04/2013, no significant changes | | | noted. | | + + + + ---------+ | Procedure Note | + ---------+ | Alonzo Trevizo Conversion - 03/31/2019 11:14 PM [facility] | | Lexiscan Stress Test TEST DATE: 10/03/2014 INDICATION FOR TEST: 34 year old male being | | evaluated for coronary artery disease. Chest pain, congestive heart failure, stent | | 2010. RISK FACTORS: hypertension, diabetes mellitus, smoker, family history, obesity | | PROCEDURE: 11.1 mCi of 99m Tc Myoview was given intravenously for rest images. The | | patient received 0.4 mg of Lexiscan intravenously. At 35 seconds 33.0 mCi of 99m Tc | | Myoview was given intravenously for stress images. Effective Dose Equivalent: 15.1 mSv. | | REST DATA: HR: 80 bmp BP: 149 / 96. Resting EKG showed NSR 82 BPM. STRESS DATA: Peak | | heart rate 104 bpm, Peak BP: 168/109. Symptoms shortness of breath, lightheaded, flushed | | Stress EKG is non diagnostic for ischemia. EJECTION FRACTION: Rest EF: 58% Stress EF: | | 54% IMAGIN. The quality of the study is good.2. Perfusion showed inferior-apical | | partially reversible defect noted.3. LV cavity size is normal with TID: 1.09).4. Gated | | SPECT images showed borderline normal LV systolic function with apical hypokinesis | | noted.5. When compared to previous nuclear stress test done in 04/2013, no significant | | changes noted. IMPRESSION: Abnormal myocardial perfusion imaging.Small apical- inferior | | callie infarct- ischemia noted.Stress EKG is non diagnostic for ischemia.Borderline normal | | LV systolic function with apical hypokinesis noted. Juan Johnson MD | | | |EJECTION FRACTION: Rest EF: 58% Stress EF: 54% | | | |IMAGING: | |1. The quality of the study is good. | |2. Perfusion showed inferior-apical partially reversible defect noted. | |3. LV cavity size is normal with TID: 1.09). | |4. Gated SPECT images showed borderline normal LV systolic function with apical hypokinesi s noted. | |5. When compared to previous nuclear stress test done in 04/2013, no significant changes n oted. | | | |IMPRESSION: | |Abnormal myocardial perfusion imaging. | |Small apical- inferior callie infarct- ischemia noted. | |Stress EKG is non diagnostic for ischemia. | |Borderline normal LV systolic function with apical hypokinesis noted. | | | |Juan Johnson MD | | | | | + ---------+ documented in this encounter Visit Diagnoses Not on filedocumented in this encounter"
--- OUTSIDE RECORDS SUMMARY | ~2019-07-14 | XMS | Encounter Summary ---
Demographics + + + | Address | [address] | | | [place] [address] | + + + | Home Phone [...] + + + | Author | [place] [employer] [facility] | + + + | Organization | [facility] [...] Team Providers + +------+ + | Care Hydrogenation Operator Name | Role | Phone | + +------+ + | Jinny Bergeron MD | PCP | | + +------+ + Encounter Details +--------+------+ + + + | Date | Type | Department | Care Team | Description | +--------+------+ + + + | 11/15/ | Lab | Laboratory at [facility] | | Pituitary adenoma | | 2016 | | [address] | | ([facility]); 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[place], [place]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 | | | | [address] | | ([facility]); 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[facility]); | | | | | | Hypogonadism male; | | | | | | Acquired | | | | | | hypothyroidism; [...] | | 2019 | Visit | | [address] | | | | | | [address] | | | | | | [place], [place] | | | | | | [address] | | | | | | [phone] | | | | | | | | +--------+---------+ + + + documented as of this encounter Procedures + +--------+ + + + | Procedure Name | Priori | Date/Time | Associated Diagnosis | Comments | | | ty | | | | + +--------+ + + + | VITAMIN D, | Routin | 11/16/2015 | Pituitary adenoma | Results for this | | 25-HYDROXY, SERUM | e | 2:00 PM | (HCC) Growth | procedure are in the | | | | PDT | hormone deficiency | results section. 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) | | | | | | Hypogonadism male | | | | | | Acquired | | | | | | hypothyroidism [...] | + + + + + | [employer] | [address] | [place] [address] | | | SERVICES, CORE | KIMO [...] [facility] | [address] | [place] [address] | | | SERVICES, SPECIAL | PARK [...] [facility] | [address] | [place] [address] | | | SERVICES, CORE | KIMO [...] - | | | | | | [place] | | + +-------+ + + + + + | Specimen | + + | Blood - Blood | + + + + + + + | Performing | Address | City/State/Zipcode | Phone Number | | Organization | | | | + + + + + | [facility] | [address] | [place] [address] | | | [facility] | | | | [...] | | this test in the [facility] | | | | | | Laboratory Test | | | | | | Directory | | | | | | ([employer]).Performed | | | | | | by [facility] | | | | | | Michi Pickens, [facility] | | | | | | [address] | | | | | | [phone].[employer]. | | | | | | [facility], Dariel Tobin, | | | | | | [place], Lab. Director | | | | + + + + + + + + | Specimen | + + | Blood - Blood | + + + + + + + | Performing | Address | City/State/Zipcode | Phone Number | | Organization | | | | + + + + + | [facility] | [address] | [place], [place] | | | [facility] | | [address] | | + + + + + [...] + | [facility] | [address] | [place] [address] | | | [place] | | | [...] + + + + | [facility] | [address] | [place] [address] | | | SERVICES, CORE | PARK [...] | | | LABORATORY | | | SAMMARINESE | | | SERVICES, | | | [...] [facility] | [address] | [place] [address] | | | SERVICES, CORE | PARK [...]
--- OUTSIDE RECORDS SUMMARY | ~2019-07-14 | XMS | Encounter Summary ---
Demographics + + + | Address | [address] | | | [place] [address] | + + + | Home Phone [...] + + + | Author | [place] [employer] [facility] | + + + | Organization | [facility] [...] Team Providers + +------+ + | Care Truck Jumper Name | Role | Phone | + [...] questions | | 2009 | Encounter | [facility] [address] | Cathie | | | | | [place] Mailcode: CH8N | DNP,ASSOCIATE DIRECTOR DATA & ANALYTICS,[place] [address] | | | | | [facility] | [address] [place], | | | | | and Healing, | [place] [address] | | | | | Building [address] | [phone] | | | | | [place], [place] | | | | | | [address] | | | | | | [phone] | | | +--------+ + + + [...] Rd | | | | | | [place], [place] | | | | | | [address] | | | | | | [phone] | | | | | | | | +--------+---------+ + + + documented as of this encounter Visit Diagnoses Not on filedocumented in this encounter"
--- OUTSIDE RECORDS SUMMARY | ~2019-07-14 | XMS | Encounter Summary ---
Demographics + + + | Address | [address] | | | [place] [address] | + + + | Home Phone [...] + + + | Author | [place] [employer] [facility] | + + + | Organization | [facility] [...] Team Providers + +------+ + | Care Internal Audit Manager Name | Role | Phone | + +------+ + | Jinny Bergeron MD | PCP | | + +------+ + Encounter Details +--------+ + + + + | Date | Type | Department | Care Team | Description | +--------+ + + + + | 06/09/ | MyChart | Neurosurgery at | Donnie, | RE: cellulitis in | | 2013 | Encounter | [facility] [address] | [place], | Right foot | | | | Ave Mailcode: CH8N | DNP,LIME MIXER,[place] [address] | | | | | [facility] | [address] [place], | | | | | and [place], | [place] [address] | | | | | Building [address] | [phone] | | | | | [place], [place] | | | | | | [address] | | | | | | [phone] | | | +--------+ + + + [...] Rd | | | | | | [place], [place] | | | | | | [address] | | | | | | [phone] | | | | | | | | +--------+---------+ + + + documented as of this encounter Visit Diagnoses Not on filedocumented in this encounter"
--- OUTSIDE RECORDS SUMMARY | ~2019-07-14 | XMS | Encounter Summary ---
Demographics + + + | Address | [address] | | | [place] [address] | + + + | Home Phone [...] + + + | Author | [place] [employer] [facility] | + + + | Organization | [facility] | [...] Team Providers + +------+ + | Care Press Operator [employer] Products Name | Role | Phone | + [...] | | | | | adenoma | DNP,VEGETABLE TESTER,[place] | [address] | | | | | (HCC) | [address] | [address] | | | | | Growth | Ave | Mailcode: | | | | | hormone | [place], [place] | [address] | | | | | deficiency | [address] | Luis | | | | | ([facility]) | Phone: | Research | | | | | Diabetes | [phone] | Center | | | | | insipidus | Fax: | [place], [place] | | | | | ([facility]) | [phone] | [address] | | | | | Hypogonadism | | Phone: | | | | | male | | [phone] | | | | | Hypothyroid | | Fax: | | | | | Adrenal | | [phone] | | | | | insufficienc | | | | | | | y ([facility]) | | | | | | | Procedures | | | | | | | MRI BRAIN | | | | | | | WWO CONTRAST | | | +--------+--------+ + + + + Encounter Details +--------+ + + + + | Date | Type | Department | Care Team | Description | +--------+ + + + + | 02/19/ | Weatherstrip Machine Operator | Neurosurgery at | Donnie, | Pituitary Adenoma | | 2008 | | [facility] [address] | [place], | ([facility]); 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Ave Mailcode: CH8N | DNP,VEGETABLE TESTER,[place] [address] | Hormone Deficiency | | | | [place] [facility] | [address] [place], | ([facility]); 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, | [place] [address] | Insipidus ([facility]); | | | | Building [address] | [phone] | Hypogonadism Male; | | | | [place], [place] | | Hypothyroid; Adrenal | | | | [address]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 ([facility]) | | | | [phone] | | | +--------+ + + + [...] | | 2019 | Visit | | [address] | | | | | | [address] | | | | | | [place], [place] | | | | | | [address] | | | | | | [phone] | | | | | | | [...] | MR BRAIN | Med Rec No: [id number] | | | | | WWO | Name: | | | | | CONTRAST | FAROOQ LEMA | | | | | | Birthday: 1980 | | | | | | Sex: M | | | | | | Alias:Patient Location: | | | | | | [id number]: Outpatient | | | | | | ActiveOrdering | | | | | | Physician: DONNIE | | | | | | CATHIE Monroy NChinoMBR-+ | | | | | | MRI BRAIN W/WO CONTRAST | | | | | | completed on 04/03/2009 | | | | | | 8:55 AMAccession # | | | | | | [id number]:MR OF THE | | | | | [...]
--- OUTSIDE RECORDS SUMMARY | ~2019-07-14 | XMS | Encounter Summary ---
Demographics + + + | Address | [address] | | | [place] [address] | + + + | Home Phone [...] + + + | Author | [place] [employer] [facility] | + + + | Organization | [facility] | + + + | Address | Unknown | + + + | Phone | Unavailable | + + + Support + + +---------+ + | Name | Relationship | Address | Phone | + + +---------+ + | Alexandria Dixon | ECON | Unknown | | + + +---------+ + Care Team Providers + +------+ + | Care Hand Roller Engraver Name | Role | Phone | + +------+ + | Priscilla Ramírez PA-C | PCP | | + +------+ + Reason for Visit + + + | Reason | Comments | + + + | Lab Results | Multiple lab results | + + + Encounter Details +--------+ + + + + | Date | Type | Department | Care Team | Description | +--------+ + + + + | 06/07/ | Telephone | Cardiology in | Zuleika Hernandez, | Lab Results | | 2019 | | [facility] | [address] | (Multiple lab | | | | [facility] at | [address] | results) | | | | [place] [address] | [place], [place] | | | | | [address] | [address] | | | | | [place], [place] | [phone] | | | | | [address] | | | | | | [phone] | | | +--------+ + + + [...] | | 2019 | Visit | | [address] | | | | | | [address] | | | | | | [place], [place] | | | | | | [address] | | | | | | [phone] | | | | | | | | +--------+---------+ + + + documented as of this encounter Procedures + +--------+ + + + | Procedure Name | Priori | Date/Time | Associated Diagnosis | Comments | | | ty | | | | + +--------+ + + + | FOLATE, SERUM | Routin | 05/26/2019 | | Results for this | | | e | | | procedure are in the | | | | | | results section. | + +--------+ + + + | VITAMIN B-12 | Routin | 05/26/2019 | | Results for this | | | e | | | procedure are in the | | | | | | results section. | + +--------+ + + + | HEMOGLOBIN A1C, | Routin | 05/26/2019 | | Results for this | | BLOOD | e | | | procedure are in the | | | | | | results section. | + +--------+ + + + | TESTOSTERONE, SERUM | Routin | 05/05/2019 | | Results for this | | | e | | | procedure are in the | | | | | | results section. | + +--------+ + + + documented in this encounter Results VITAMIN B-12 (05/26/2019) + +---------+ + + + | Component | Value | Ref Range | Performed | Pathologist | | | | | At | Signature | + +---------+ + + + | VITAMIN B12 | 200 (A) | 254 pg/mL | NON [facility] | | | | | | LAB | | + +---------+ + + + + + | Specimen | + + | Blood - Blood | | (substance) | + + + +---------+ + + | Performing | Address | City/State/Zipcode | Phone Number | | Organization | | | | + +---------+ + + | NON [facility] | | | | + +---------+ + + FOLATE, SERUM (05/26/2019) + +-------+ + + + | Component | Value | Ref Range | Performed | Pathologist | | | | | At | Signature | + +-------+ + + + | FOLATE, | >20 | 5.4 - 24.0 | NON [facility] | | | SERUM | | ng/mL | LAB | | + +-------+ + + + + + | Specimen | + + | Blood - Blood | | (substance) | + + + +---------+ + + | Performing | Address | City/State/Zipcode | Phone Number | | Organization | | | | + +---------+ + + | NON [facility] | | | | + +---------+ + + HEMOGLOBIN A1C, BLOOD (05/26/2019) + +---------+ + + + | Component | Value | Ref Range | Performed | Pathologist | | | | | At | Signature | + +---------+ + + + | HEMOGLOBIN | 6.3 (A) | 5.7 % | NON [facility] | | | A1C | | | LAB | | + +---------+ + + + | ESTIMATED | 134.0 | mg/dL | NON [facility] | | | AVERAGE | | | LAB | | | GLUCOSE | | | | | + +---------+ + + + + + | Specimen | + + | Blood - Blood | | (substance) | + + + +---------+ + + | Performing | Address | City/State/Zipcode | Phone Number | | Organization | | | | + +---------+ + + | NON [facility] | | | | + +---------+ + + TESTOSTERONE, SERUM (05/05/2019) + +-------+ + + + | Component | Value | Ref Range | Performed | Pathologist | | | | | At | Signature | + +-------+ + + + | TESTOSTERON | 190.7 | 180.0 ng/dl | NON [facility] | | | E, SERUM | | | LAB | | + +-------+ + + + + + | Specimen | + + | Blood - Blood | | (substance) | + + + +---------+ + + | Performing | Address | City/State/Zipcode | Phone Number | | Organization | | | | + +---------+ + + | [place] | | | | + +---------+ + + documented in this encounter Visit Diagnoses Not on filedocumented in this encounter"
--- OUTSIDE RECORDS SUMMARY | ~2019-07-14 | XMS | Encounter Summary ---
Demographics + + + | Address | [address] | | | [place] [address] | + + + | Home Phone [...] + + | Author | [place] [facility] | + + + | Organization | [facility] [...] Providers + +------+ + | Care Fiber Optic Splicer Name | Role | Phone | + +------+ + | Priscilla Ramírez PA-C | PCP | | + +------+ + Encounter Details +--------+ + + + + | Date | Type | Department | Care Team | Description | +--------+ + + + + | 08/21/ | Ancillary | Registration [address] | | | | 2005 | Registratio | [address] [facility] | | | | | n | [address] Mailcode: RPB07 | | | | | | [place], [place] | | | | | | [address] | | | | | | [phone] | | | +--------+ + + + [...] | | 2019 | Visit | | [address] | | | | | | [address] | | | | | | [place], [place] | | | | | | [address] | | | | | | [phone] | | | | | | | | +--------+---------+ + + + documented as of this encounter Visit Diagnoses Not on filedocumented in this encounter"
--- OUTSIDE RECORDS SUMMARY | ~2019-07-14 | XMS | Encounter Summary ---
Demographics + + + | Address | [address] | | | [place] [address] | + + + | Home Phone [...] + + | Author | [place] [employer] [facility] | + + + | Organization | [facility] | + + + | Address | Unknown | + + + | Phone | Unavailable | + + + Support + + +---------+ + | Name | Relationship | Address | Phone | + + +---------+ + | Alexandria Dixon | ECON | Unknown | | + + +---------+ + Care Team Providers + +------+ + | Care Endocrinology Teacher Name | Role | Phone | + +------+ + | Bernardo Pan | PCP | | + +------+ + Encounter Details +--------+ + + + + | Date | Type | Department | Care Team | Description | +--------+ + + + + | 01/01/ | Abstract | Cardiology General | Unknown . | | | 2018 | | at [facility] [address] | | | | | | [address] Mailcode: | | | | | | [address] | | | | | | Health and Healing, | | | | | | | | | | | | floor [place], [place] | | | | | | [address] | | | | | | [phone] | | | +--------+ + + + [...] | | 2019 | Visit | | [address] | | | | | | [address] | | | | | | [place], [place] | | | | | | [address] | | | | | | [phone] | | | | | | | | +--------+---------+ + + + documented as of this encounter Visit Diagnoses Not on filedocumented in this encounter"
--- OUTSIDE RECORDS SUMMARY | ~2019-07-14 | XMS | Encounter Summary ---
Demographics + + + | Address | [address] | | | [place] [address] | + + + | Home Phone | | + + + | Preferred Language | Unknown | + + + | Marital Status | Single | + + + | Holiness Affiliation | NON | + + + | Race | or | + + + | Ethnic Group | Not or | + + + Author + + + | Author | [place] [employer] [facility] | + + + | Organization | [facility] | + + + | Address | Unknown | + + + | Phone | Unavailable | + + + Support + + +---------+ + | Name | Relationship | Address | Phone | + + +---------+ + | Alexandria Dixon | ECON | Unknown | | + + +---------+ + Care Team Providers + +------+ + | Care Internal Audit Senior Manager Name | Role | Phone | + +------+ + | Priscilla Ramírez PA-C | PCP | | + +------+ + Encounter Details +--------+ + + + + | Date | Type | Department | Care Team | Description | +--------+ + + + + | 10/17/ | Hospital | Registration [address] | | | 2004 | Activity | [address] [facility] | | | | | | [address] Mailcode: RPB07 | | | | | | [place], [place] | | | | | | [address] | | | | | | [phone] | | | +--------+ + + + [...] Rd | | | | | | [place], [place] | | | | | | [address] | | | | | | [phone] | | | | | | | | +--------+---------+ + + + documented as of this encounter Visit Diagnoses Not on filedocumented in this encounter"
--- OUTSIDE RECORDS SUMMARY | ~2019-07-14 | XMS | Encounter Summary ---
Demographics + + + | Address | [address] | | | [place] [address] | + + + | Home Phone [...] + + + | Author | [place] [employer] [facility] | + + + | Organization | [facility] | + [...] Team Providers + +------+ + | Care Room Service Manager Name | Role | Phone | [...] Description | +--------+--------+ + + + | 04/27/ | Refill | Neurosurgery at | Donnie, | Refill Request | | 2011 | | [facility] [address] | Cathie, | | | | | [place] Mailcode: CH8N | DNP,SPOT WELDER,[place] [address] | | | | | [facility] | [address] [place], | | | | | and [facility], | [place] [address] | | | | | Building [address] | [phone] | | | | | [place], [place] | | | | | | [address] | | | | | | [phone] | | | +--------+--------+ + + + [...] | | 2019 | Visit | | [address] | | | | | | [address] | | | | | | [place], [place] | | | | | | [address] | | | | | | [phone] | | | | | | | | +--------+---------+ + + + documented as of this encounter Visit Diagnoses + + | Diagnosis | + + | Diabetes insipidus (HCC) - Primary Diabetes insipidus | + + documented in this encounter"
--- OUTSIDE RECORDS SUMMARY | ~2019-07-14 | XMS | Encounter Summary ---
Demographics + + + | Address | [address] | | | [place] [address] | + + + | Home Phone | | + + + | Preferred Language | Unknown | + + + | Marital Status | Single | + + + | Faith Affiliation | Unknown | + + + | Race | Unknown | + + + | Ethnic Group | Unknown | + + + Author + + + | Author | [facility] | | | and [place] | + + + | Organization | [facility] | | | and [...] Team Providers + +------+ + | Care Geophysical Prospector Name | Role | Phone | + [...] [place], | | | | | [address] [place] | [place] [address] | | | | | [place] [address] | [phone] | | | | | [phone] | | | +--------+ + + + [...] 2020 | Visit | | [address] | | | | | | [place] | | | | | | [address] | | | | | | | | +--------+---------+ + + + documented as of this encounter Visit Diagnoses Not on filedocumented in this encounter"
--- OUTSIDE RECORDS SUMMARY | ~2019-07-14 | XMS | Encounter Summary ---
Demographics + + + | Address | [address] | | | [place] [address] | + + + | Home Phone [...] + + + | Author | [place] [employer] [facility] | + + + | Organization | [facility] [...] Team Providers + +------+ + | Care Putter In Name | Role | Phone | + [...] [address] | | | | | [facility] | [place], [place] | | | | | and [place], | [address] | | | | | Building | [phone] | | | | | [place], [place] | | | | | | [address] | | | | | | [phone] | | | +--------+--------+ + + + [...] | | 2019 | Visit | | [address] | | | | | | [address] | | | | | | [place], [place] | | | | | | [address] | | | | | | [phone] | | | | | | | | +--------+---------+ + + + documented as of this encounter Visit Diagnoses Not on filedocumented in this encounter"
--- OUTSIDE RECORDS SUMMARY | ~2019-07-14 | XMS | Encounter Summary ---
Demographics + + + | Address | [address] | | | [place] [address] | + + + | Home Phone | | + + + | Preferred Language | Unknown | + + + | Marital Status | Single | + + + | Druze Affiliation | NON | + + + | Race | or | + + + | Ethnic Group | Not or | + + + Author + + + | Author | [place] [employer] [facility] | + + + | Organization | [facility] [...] Team Providers + +------+ + | Care Optician Manager Name | Role | Phone | [...] Description | +--------+--------+ + + + | 10/26/ | Refill | Neurosurgery at | Donnie, | Refill Request | | 2014 | | [facility] [address] | Cathie, | | | | | [place] Mailcode: CH8N | DNP,CHIEF INFORMATION SECURITY OFFICER,[place] [address] | | | | | [facility] | [address], | | | | | and Healing, | [place] [address] | | | | | Building 1 | [phone] | | | | | [address], [place] | | | | | | [address] | | | | | | [phone] | | | +--------+--------+ + + + [...] Rd | | | | | | [place], [place] | | | | | | [address] | | | | | | [phone] | | | | | | | | +--------+---------+ + + + documented as of this encounter Visit Diagnoses Not on filedocumented in this encounter"
--- OUTSIDE RECORDS SUMMARY | ~2019-07-14 | XMS | Encounter Summary ---
Demographics + + + | Address | [address] | | | [place] [address] | + + + | Home Phone [...] + + + | Author | [place] [employer] [facility] | + + + | Organization | [facility] Science [facility] | + + + | Address | Unknown | + + + | Phone | Unavailable | + + + Support + + +---------+ + | Name | Relationship | Address | Phone | + + +---------+ + | Alexandria Dixon | ECON | Unknown | | + + +---------+ + Care Team Providers + +------+ + | Care Library Monitor Name | Role | Phone | + +------+ + | No Pcp Per Patient | PCP | Unavailable | + +------+ + Encounter Details +--------+ + + + + | Date | Type | Department | Care Team | Description | +--------+ + + + + | 05/02/ | Salary And Wage Administrator | Neurosurgery at | [place], | Pituitary Adenoma | | 2007 | | [facility] [address] | Cathie, | ([facility]); 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Ave Mailcode: CH8N | DNP,DRILLER AND BROACHER,[place] [address] | Hormone Deficiency | | | | [facility] | [address] [place], | ([facility]); 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, | [place] [address] | Insipidus (HCC); | | | | Building | [phone] | Hypogonadism Male; | | | | Floor [place], [place] | | Hypothyroid; 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
--- OUTSIDE RECORDS SUMMARY | ~2019-07-14 | XMS | Encounter Summary ---
Demographics + + + | Address | [address] | | | [place] [address] | + + + | Home Phone [...] + + | Author | [place] [employer] [facility] | + + + | Organization | [facility] Science [facility] | + + + | Address | Unknown | + + + | Phone | Unavailable | + + + Support + + +---------+ + | Name | Relationship | Address | Phone | + + +---------+ + | Alexandria Dixon | ECON | Unknown | | + + +---------+ + Care Team Providers + +------+ + | Care Webbing Tacker Name | Role | Phone | + [...] | | [place] Mailcode: CH8N | DNP,WINDOW COVERING SALES CONSULTANT,[place] [address] | | | | | [facility] | [address] [place], | | | | | and [place], | [place] [address] | | | | | [place] [address] | [phone] | | | | | [place], [place] | | | | | | [address] | | | | | | [phone] | | | +--------+ + + + [...] Rd | | | | | | [place], [place] | | | | | | [address] | | | | | | [phone] | | | | | | | | +--------+---------+ + + + documented as of this encounter Visit Diagnoses Not on filedocumented in this encounter"
--- OUTSIDE RECORDS SUMMARY | ~2019-07-14 | XMS | Encounter Summary ---
Demographics + + + | Address | [address] | | | [place] [address] | + + + | Home Phone [...] + + + | Author | [place] [employer] [facility] | + + + | Organization | [facility] | + + + | Address | Unknown | + + + | Phone | Unavailable | + + + Support + + +---------+ + | Name | Relationship | Address | Phone | + + +---------+ + | Alexandria Dixon | ECON | Unknown | | + + +---------+ + Care Team Providers + +------+ + | Care Adoption Agent Name | Role | Phone | [...] | | | Pituitary | Cathie, | [facility] [address] | | | | | adenoma | DNP,DATA REDUCTION TECHNICIAN,[place] | [address] | | | | | ([facility]) | [address] | Mailcode: | | | | | Growth | Ave | [facility] | | | | | hormone | [place], [place] | for Health | | | | | deficiency | [address] | and Healing, | | | | | (HCC) | Phone: | Building 1, | | | | | Panhypopitui | [phone] | 3rd Floor | | | | | tarism ([facility]) | Fax: | [place], [place] | | | | | Procedures | [phone] | [address] | | | | | MRI | | Phone: | | | | | PITUITARY | | [phone] | | | | | WWO CONTRAST | | Fax: | | | | | [place] MRI | | [phone] | | | | | BRAIN COMBO | | | +--------+--------+ + + + + Encounter Details +--------+ + + + + | Date | Type | Department | Care Team | Description | +--------+ + + + + | 01/05/ | Party Plan Sales Agent | Neurosurgery at | [place]nie, | Pituitary adenoma | | 2019 | | [facility] [address] | Cathie, | ([facility]) (Primary Dx); | | | | Ave Mailcode: CH8N | DNP,DATA REDUCTION TECHNICIAN,[place] [address] | 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[facility] | [address] [place], | deficiency ([facility]); | | | | and Healing, | [place] [address] | Panhypopituitarism | | | | Building 1 | [phone] | ([facility]) | | | | [place], [place] | | | | | | [address] | | | | | | [phone] | | | +--------+ + + + [...] | | 2019 | Visit | | [address] | | | | | | [address] | | | | | | [place], [place] | | | | | | [address] | | | | | | [phone] | | | | | | | [...]
--- OUTSIDE RECORDS SUMMARY | ~2019-07-14 | XMS | Encounter Summary ---
Demographics + + + | Address | [address] | | | [place] [address] | + + + | Home Phone [...] + + + | Author | [place] [employer] [facility] | + + + | Organization | [facility] Science [facility] | + + + | Address | Unknown | + + + | Phone | Unavailable | + + + Support + + +---------+ + | Name | Relationship | Address | Phone | + + +---------+ + | Alexandria Dixon | ECON | Unknown | | + + +---------+ + Care Team Providers + +------+ + | Care Motors Assembler Name | Role | Phone | [...] Request | | 2019 | | at [facility] [address] | [address] | (Ranolazine 1,000 mg | | | | [address] Mailcode: | [address] | BID); Refill | | | | [facility] Center for | [place], [place] | Request; Refill | | | | Health and Healing, | [address] | Request; Appointment | | | | | [phone] | | | | | floor [place], [place] | | | | | | [address] | | | | | | [phone] | | | +--------+--------+ + + + [...] Rd | | | | | | [place], [place] | | | | | | [address] | | | | | | [phone] | | | | | | | | +--------+---------+ + + + documented as of this encounter Visit Diagnoses Not on filedocumented in this encounter"
--- OUTSIDE RECORDS SUMMARY | ~2019-07-14 | XMS | Encounter Summary ---
Demographics + + + | Address | [address] | | | [place] [address] | + + + | Home Phone [...] + + + | Author | [place] [employer] [facility] | + + + | Organization | [facility] & Science [facility] [...] Providers + +------+ + | Care Delivery And Installation Subcontractor Name | Role | Phone | + [...] Refill Request | | 2011 | | [facility] [address] | Cathie, | | | | | [place] Mailcode: CH8N | DNP,CABLE MAINTAINER,[place] [address] | | | | | [facility] | [address] [place], | | | | | and [facility], | [place] [address] | | | | | Building 1 | [phone] | | | | | [place], [place] | | | | | | [address] | | | | | | [phone] | | | +--------+--------+ + + + [...] | | 2019 | Visit | | [address] | | | | | | [address] | | | | | | [place], [place] | | | | | | [address] | | | | | | [phone] | | | | | | | | +--------+---------+ + + + documented as of this encounter Visit Diagnoses + + | Diagnosis | + + | Diabetes insipidus (HCC) - Primary Diabetes insipidus | + + documented in this encounter"
--- OUTSIDE RECORDS SUMMARY | ~2019-07-14 | XMS | Encounter Summary ---
Demographics + + + | Address | [address] | | | [place] [address] | + + + | Home Phone [...] + + + | Author | [place] [employer] [facility] | + + + | Organization | [facility] | [...] Team Providers + +------+ + | Care Roofing Laborer Name | Role | Phone | + [...] Refill Request | | 2007 | | [facility] [address] | Cathie, | | | | | [place] Mailcode: CH8N | DNP,BOX GLUER,[place] [address] | | | | | [facility] | [address] [place], | | | | | and [facility], | [place] [address] | | | | | Building 1 | [phone] | | | | | [place], [place] | | | | | | [address] | | | | | | [phone] | | | +--------+--------+ + + + [...] Rd | | | | | | [place], [place] | | | | | | [address] | | | | | | [phone] | | | | | | | | +--------+---------+ + + + documented as of this encounter Visit Diagnoses Not on filedocumented in this encounter"
--- OUTSIDE RECORDS SUMMARY | ~2019-07-14 | XMS | Encounter Summary ---
Demographics + + + | Address | [address] | | | [place] [address] | + + + | Home Phone [...] + + + | Author | [place] [employer] [facility] | + + + | Organization | [facility] | + + + | Address | Unknown | + + + | Phone | Unavailable | + + + Support + + +---------+ + | Name | Relationship | Address | Phone | + + +---------+ + | Alexandria Dixon | ECON | Unknown | | + + +---------+ + Care Team Providers + +------+ + | Care Crystallographer Name | Role | Phone | + +------+ + | Priscilla Ramírez PA-C | PCP | | + +------+ + Encounter Details +--------+ + + + + | Date | Type | Department | Care Team | Description | +--------+ + + + + | 10/22/ | MyChart | Cardiology General | | Cardiology Follow up | | 2019 | Encounter | at [facility] [address] | | appointment | | | | [address] Mailcode: | | | | | | [address] | | | | | | Health and Healing, | | | | | | [facility] | | | | | | floor [place], [place] | | | | | | [address] | | | | | | [phone] | | | +--------+ + + + [...] Rd | | | | | | [place], [place] | | | | | | [address] | | | | | | [phone] | | | | | | | | +--------+---------+ + + + documented as of this encounter Visit Diagnoses Not on filedocumented in this encounter"
--- OUTSIDE RECORDS SUMMARY | ~2019-07-14 | XMS | Encounter Summary ---
Demographics + + + | Address | [address] | | | [place] [address] | + + + | Home Phone [...] + + | Author | [place] [employer] [facility] | + + + | Organization | [facility] & Science [facility] | + + + | Address | Unknown | + + + | Phone | Unavailable | + + + Support + + +---------+ + | Name | Relationship | Address | Phone | + + +---------+ + | Alexandria Dixon | ECON | Unknown | | + + +---------+ + Care Team Providers + +------+ + | Care Line Staker Name | Role | Phone | + [...] | | | | | | | DNP,MATTE CUTTER,[place] | | | | | | | [address] | | | | | | | Ave | | | | | | | [place], [place] | | | | | | | [address] | | | | | | | Phone: | | | | | | | [phone] | | | | | | | Fax: | | | | | | | [phone] | +--------+--------+ + + + + Encounter Details +--------+---------+ + + + | Date | Type | Department | Care Team | Description | +--------+---------+ + + + | 06/05/ | Office | Neurosurgery at | Donnie, | Pituitary Adenoma | | 2008 | Visit | [facility] [address] | Cathie | ([facility]); 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Ave Mailcode: CH8N | DNP,MATTE CUTTER,[place] [address] | Hormone Deficiency | | | | [facility] | [address] [place], | (HCC); Diabetes | | | | and [facility], | [place] [address] | Insipidus (HCC); | | | | Building 1 | [phone] | Hypogonadism Male; | | | | [place], [place] | | Hypothyroid; 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 5. MRI 03/20with SHAKE TABLE OPERATOR, RM labs I spent 40 mins [...] | 2020 | Visit | | [address] [facility] [address] | | | | | | [address] | | | | | | [place], [place] | | | | | | [address] | | | | | | [phone] | | | | | | | [...] | | | DEPARTMENT | | | [place] | | | OF | | | [...] + + + + | [facility] | [address] | [place] [address] | | | PATHOLOGY | [address] [...] Reggie | M[place] | | [place] [address] [facility] | DEPARTMENT OF | | [place], [place] [address] | PATHOLOGY | + + + + + + + + | Performing | Address | City/State/Zipcode | Phone Number | | Organization | | | | + + + + + | [facility] | [address] | [place] [address] | | | PATHOLOGY | [address] [...] | + + + | [facility] Reggie | [place] | | [facility] [address] [facility] | DEPARTMENT | | [place] [address] | PATHOLOGY | + + + + + + + + | Performing | Address | City/State/Zipcode | Phone Number | | Organization | | | | + + + + + | [facility] | [address] [facility] | [place] [address] | | | PATHOLOGY | [address] [...] [place] | | | | | | [facility], [place] [address] | | | | | | [phone] | | | | | melissa, [...] + + + + | [facility] | [address] | [place] [address] | | | PATHOLOGY | [address] [...]
--- OUTSIDE RECORDS SUMMARY | ~2019-07-14 | XMS | Encounter Summary ---
Demographics + + + | Address | [address] | | | [place] [address] | + + + | Home Phone [...] + + + | Author | [place] [employer] [facility] | + + + | Organization | [facility] & Science [facility] | + + + | Address | Unknown | + + + | Phone | Unavailable | + + + Support + + +---------+ + | Name | Relationship | Address | Phone | + + +---------+ + | Alexandria Dixon | ECON | Unknown | | + + +---------+ + Care Team Providers + +------+ + | Care Education Administrative Assistant Name | Role | Phone | + +------+ + | Jinny Bergeron MD | PCP | | + +------+ + Encounter Details +--------+ + + + + | Date | Type | Department | Care Team | Description | +--------+ + + + + | 05/31/ | MyChart | Neurosurgery at | Donnie, | RE: Appointment | | 2013 | Encounter | [facility] [address] | Cathie, | 06/02/14 | | | | [place] Mailcode: CH8N | DNP,TELEPHONE ORDER CLERK,[place] [address] | | | | | [facility] | [address] [place], | | | | | and [place], | [place] [address] | | | | | [facility] | [phone] | | | | | Floor [place], [place] | | | | | | [address] | | | | | | [phone] | | | +--------+ + + + [...] | | 2019 | Visit | | [address] | | | | | | [address] | | | | | | [place], [place] | | | | | | [address] | | | | | | [phone] | | | | | | | | +--------+---------+ + + + documented as of this encounter Visit Diagnoses Not on filedocumented in this encounter"
--- OUTSIDE RECORDS SUMMARY | ~2019-07-14 | XMS | Encounter Summary ---
Demographics + + + | Address | [address] | | | [place] [address] | + + + | Home Phone [...] Providers + +------+ + | Care Motor Vehicles Inspector Name | Role | Phone | + +------+ + PCP | Unavailable | + +------+ + Encounter Details +--------+ + + + + | Date | Type | Department | Care Team | Description | +--------+ + + + + | 08/22/ | Letter-Loving | | Letter, Clinic | [...] as of this encounter Progress Notes Interface, Leather Novelty Parts Cutter In - 08/27/2005 2:09 AM PST [id number] 08/22/2005 08/22/2005 [id number] TOREY TRIVEDI V [facility] [address] [place] [address] or August 22, 2005 Shravan Montanez M.D. [address] [place] [id number] RE: FAROOQ LEMA MR #: [id number] Dear doctor: It is our pleasure to see Mr. Lmea in clinic today. 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 He had vomiting and headache which started in the beginning of July 2005. He has no visual problems new, however. 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 He was placed on Decadron by yourself. He is also placed on Tylenol No.3, and his pain is now improved. He has no significant past medical history. He has had previous eye surgery for diplopia. He is presently on Decadron and Tylenol No.3. He has no allergies. He occasionally smokes, he occasionally drinks. Review of systems is otherwise unremarkable except for a 15-pound weight loss over the past several months. On physical exam, he demonstrates no deficits. Strength and sensation are intact and symmetric throughout. He demonstrates no pronator drift. His cranial nerves are grossly intact. He may have some subtle field abnormalities to confrontation, although this is not definitive. We reviewed his MRI, he has a small pituitary macroadenoma. We are going to have Dr. Guillaume, our lead qa analyst, see if he has any evidence of hormone production, however, if this turns out to be a nonsecreting macroadenoma, which I suspect it is, we will schedule the patient for surgery for transsphenoidal resection. I explained to the patient and his mother and rest of his family and answered their questions with regards to this. I have discussed the risks and so forth. I have told them this may help his headaches, although I would not necessarily guarantee it; however, I think at his young age, this tumor should be surgically resected. He understands this and is in agreement with this. Additionally, I discussed the case with our lead qa analyst and with Dr. Styles and we do not feel there is any need for him to be on Decadron, and we are going to discontinue it today. Sincerely, Darren Coles M.D. / [id number] / [id number] / [id number] / [id number] documented i n this encounter Plan of Treatment +--------+---------+ + + + | Date | Type | Specialty | Care Team | Description | +--------+---------+ + + + | 08/15/ | Office | Cardiology | Zuleika Henrandez, | | | 2019 | Visit | | [address] | | | | | | [address] | | | | | | [place], [place] | | | | | | [address] | | | | | | [phone] | | | | | | | | +--------+---------+ + + + documented as of this encounter Visit Diagnoses Not on filedocumented in this encounter"
--- OUTSIDE RECORDS SUMMARY | ~2019-07-14 | XMS | Encounter Summary ---
Demographics + + + | Address | [address] | | | [place] [address] | + + + | Home Phone [...] + + + | Author | [place] [employer] [facility] | + + + | Organization | [facility] [...] Team Providers + +------+ + | Care Employee Training Specialist Name | Role | Phone | + +------+ + | Priscilla Ramírez PA-C | PCP | | + +------+ + Encounter Details +--------+ + + + + | Date | Type | Department | Care Team | Description | +--------+ + + + + | 12/10/ | Telephone | Diagnostic Imaging | Radiology | | | 2017 | | Services at [facility] | | | | | | [address] | | | | | | [place] Mailcode: | | | | | | [address] [facility] | | | | | | [place], [place] | | | | | | [address] | | | | | | [phone] | | | +--------+ + + + [...] | | 2019 | Visit | | [address] | | | | | | [address] | | | | | | [place], [place] | | | | | | [address] | | | | | | [phone] | | | | | | | | +--------+---------+ + + + documented as of this encounter Visit Diagnoses Not on filedocumented in this encounter"
--- OUTSIDE RECORDS SUMMARY | ~2019-07-14 | XMS | Encounter Summary ---
Demographics + + + | Address | [address] | | | [place] [address] | + + + | Home Phone [...] + + + | Author | [place] [employer] [facility] | + + + | Organization | [facility] [...] Providers + +------+ + | Care Technical Information Specialist Name | Role | Phone | [...] 10/21/ | Refill | Neurosurgery at | [place], | Refill Request | | 2019 | | [facility] [address] | Cathie, | | | | | [place] Mailcode: CH8N | DNP,ELEVATOR INSTALLER,[place] [address] | | | | | [facility] | [address] [place], | | | | | and Healing, | [place] [address] | | | | | Building 1 | [phone] | | | | | [place], [place] | | | | | | [address] | | | | | | [phone] | | | +--------+--------+ + + + [...] Rd | | | | | | [place], [place] | | | | | | [address] | | | | | | [phone] | | | | | | | | +--------+---------+ + + + documented as of this encounter Visit Diagnoses Not on filedocumented in this encounter"
--- OUTSIDE RECORDS SUMMARY | ~2019-07-14 | XMS | Encounter Summary ---
Demographics + + + | Address | [address] | | | [place] [address] | + + + | Home Phone [...] + + + | Author | [place] [employer] [facility] | + + + | Organization | [facility] [...] Team Providers + +------+ + | Care Refractory Furnace Designer Name | Role | Phone | + [...] Description | +--------+--------+ + + + | 10/19/ | Refill | Neurosurgery at | Donnie, | Refill Request | | 2009 | | [facility] [address] | Cathie, | | | | | [place] Mailcode: CH8N | DNP,[facility],[place] [address] | | | | | [facility] | [address] [place], | | | | | and [facility], | [place] [address] | | | | | Building 1 | [phone] | | | | | [place], [place] | | | | | | [address] | | | | | | [phone] | | | +--------+--------+ + + + [...] Rd | | | | | | [place], [place] | | | | | | [address] | | | | | | [phone] | | | | | | | | +--------+---------+ + + + documented as of this encounter Visit Diagnoses Not on filedocumented in this encounter"
--- OUTSIDE RECORDS SUMMARY | ~2019-07-14 | XMS | Encounter Summary ---
Demographics + + + | Address | [address] [facility] | | | [place] [address] | + + + | Home Phone [...] + + | Author | [place] [employer] [facility] | + + + | Organization | [facility] | [...] Team Providers + +------+ + | Care Blanking Machine Operator Name | Role | Phone | + +------+ + | No Pcp Per Patient | PCP | Unavailable | + +------+ + Encounter Details +--------+ + + + + | Date | Type | Department | Care Team | Description | +--------+ + + + + | 04/02/ | Abstract | Endocrinology | Jaclyn Crawford, | | | 2005 | [facility] | Pituitary Disease | [address] | | | | | Clinic [address] | [address] | | | | | [address] | [place], [place] | | | | | Mailcode: [id number] | [address] | | | | | Formerly [facility] | [phone] | | | | | [address] | | | | | | [place], [place] | | | | | | [address] | | | | | | [phone] | | | +--------+ + + + [...] Rd | | | | | | [place], [place] | | | | | | [address] | | | | | | [phone] | | | | | | | | +--------+---------+ + + + documented as of this encounter Visit Diagnoses Not on filedocumented in this encounter"
--- OUTSIDE RECORDS SUMMARY | ~2019-07-14 | XMS | Encounter Summary ---
Demographics + + + | Address | [address] | | | [place] [address] | + + + | Home Phone [...] + + | Author | [place] [employer] [facility] | + + + | Organization | [facility] | [...] Team Providers + +------+ + | Care Leather Roller Name | Role | Phone | + +------+ + | Bernardo Pan | PCP | | + +------+ + Reason for Visit + + + | Reason | Comments | + + + | Prior Authorization | | | Request - Medication | | + + + Encounter Details +--------+ + + + + | Date | Type | Department | Care Team | Description | +--------+ + + + + | 10/24/ | Documentati | Neurosurgery at | Donnie, | Prior Authorization | | 2017 | on | [facility] [address] | Cathie, | Request - Medication | | | | [place] Mailcode: CH8N | DNP,NEWS WIRE PHOTO OPERATOR,[place] [address] | | | | | [facility] | [address] [place], | | | | | and [place], | [place] [address] | | | | | [place] [address] | [phone] | | | | | [place], [place] | | | | | | [address] | | | | | | [phone] | | | +--------+ + + + [...] | | 2020 | Visit | | [address] | | | | | | [address] | | | | | | [place] | | | | | | [address] | | | | | | [phone] | | | | | | | | +--------+---------+ + + + documented as of this encounter Visit Diagnoses Not on filedocumented in this encounter"
--- OUTSIDE RECORDS SUMMARY | ~2019-07-14 | XMS | Encounter Summary ---
Demographics + + + | Address | [address] | | | [place] [address] | + + + | Home Phone [...] + + + | Author | [place] [employer] [facility] | + + + | Organization | [facility] | + + + | Address | Unknown | + + + | Phone | Unavailable | + + + Support + + +---------+ + | Name | Relationship | Address | Phone | + + +---------+ + | Alexandria Dixon | ECON | Unknown | | + + +---------+ + Care Team Providers + +------+ + | Care Patrol Sergeant Sheriff'S Office Name | Role | Phone | + [...] Description | +--------+--------+ + + + | 11/21/ | Refill | Neurosurgery at | Jaclyn Crawford, | Refill Request | | 2010 | | [facility] [address] | [address] | | | | | [place] Mailcode: CH8N | [address] | | | | | [facility] | [place], [place] | | | | | jannette Marti, | [address] | | | | | Building [address] | [phone] | | | | | [place], [place] | | | | | | [address] | | | | | | [phone] | | | +--------+--------+ + + + [...] | | 2019 | Visit | | [address] | | | | | | [address] | | | | | | [place], [place] | | | | | | [address] | | | | | | [phone] | | | | | | | | +--------+---------+ + + + documented as of this encounter Visit Diagnoses Not on filedocumented in this encounter"
--- OUTSIDE RECORDS SUMMARY | ~2019-07-14 | XMS | Encounter Summary ---
Demographics + + + | Address | [address] | | | [place] [address] | + + + | Home Phone [...] + + + | Author | [place] [employer] [facility] | + + + | Organization | [facility] Science [facility] [...] Team Providers + +------+ + | Care Netezza Developer Name | Role | Phone | [...] | | 2015 | Encounter | [facility] [address] | Cathie | | | | | [place] Mailcode: CH8N | DNP,OUTREACH CLINICIAN,[place] [address] | | | | | [facility] | [address] [place], | | | | | and [place], | [place] [address] | | | | | Building [address] | [phone] | | | | | [place], [place] | | | | | | [address] | | | | | | [phone] | | | +--------+ + + + [...] | | 2019 | Visit | | [address] | | | | | | [address] | | | | | | [place], [place] | | | | | | [address] | | | | | | [phone] | | | | | | | [...]
--- OUTSIDE RECORDS SUMMARY | ~2019-07-14 | XMS | Encounter Summary ---
Demographics + + + | Address | [address] | | | [place] [address] | + + + | Home Phone [...] + + | Author | [place] [employer] [facility] | + + + | Organization | [facility] | + + + | Address | Unknown | + + + | Phone | Unavailable | + + + Support + + +---------+ + | Name | Relationship | Address | Phone | + + +---------+ + | Alexandria Dixon | ECON | Unknown | | + + +---------+ + Care Team Providers + +------+ + | Care Parts Facilitator Name | Role | Phone | + +------+ + | Jinny Bergeron MD | PCP | | + +------+ + Reason for Visit + + + | Reason | Comments | + + + | Return Patient | | + + + Encounter Details +--------+---------+ + + + | Date | Type | Department | Care Team | Description | +--------+---------+ + + + | 05/16/ | Office | Neurosurgery at | Donnie, | Pituitary adenoma | | 2016 | Visit | [facility] [address] | Cathie, | ([facility]) (Primary Dx); | | | | Ave Mailcode: CH8N | DNP,SUPERVISOR BILLPOSTING,[place] [address] | 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[place] [facility] | [address] [place], | deficiency ([facility]); | | | | and Healing, | [place] [address] | Diabetes insipidus | | | | Building [address] | [phone] | ([facility]); Hypogonadism | | | | [place], [place] | | male; Acquired | | | | [address] | | hypothyroidism; | | | | [phone] | | Adrenal | | | | | | insufficiency ([facility]); | | | | | | Vitamin D | | | | | | deficiency | +--------+---------+ + + + Social History [...] + + + | Blood Pressure | 103/77 | 05/16/2016 12:23 PM | | | | | PDT | | + + + + + | Pulse | 82 | 05/16/2016 12:23 PM | | | | | PDT | | + + + + + | Temperature | 36.4 C (97.6 F) | 05/16/2016 12:23 PM | | | | | [...] Weight | 121.6 kg (268 lb) | 05/16/2016 12:23 PM | | | | | PDT | | + + + + + | Height | 172.7 cm (5' 8") | 05/16/2016 12:23 PM | | | | | PDT | | + + + + + | Body Mass Index | 40.75 | 05/16/2016 12:23 PM | | | | | PDT | | + + + + + documented in this encounter Progress Notes Cathie Fields, SANIYA,SUPERVISOR BILLPOSTING,[place] - 05/16/2016 12:30 PM PDTFormatting of this note might be di fferent from the original. Reason for visit. Amairani Tyler returns to pituitary clinic for interval review of pituitary symptoms and titration of hormone replacement. 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 Reuben Styles. He had a cardiac stent place 02/2011 after a n HI. At this visit; Symptoms and Complaints: HC now 25mg daily no dizziness, nausea or headaches ddavp 1/2 tab am and 2tabs HS. Not nocturia Fatigue improved Weight loss last over 60LB Arm improved weak at time is using a tens unit on arm an back, helps some Depot testosterone last 05/10/16 every 2 weeks. No visual deficit Migraine intermittent sever 03/19 3-4x /mth. Pending Visual check this month NO chest pain Energy level better Sexual function ok back pain worse in winter B/p better and more stable BSL- HA1c 6.8% Taking Thyroid regularly Uses CPAP Regularly recent surgery on septal defect Is using GH regularly Sleeps OK at noc No polyuria or polydipsia no nocturia Still feels hot a lot of the time However he chews and swallows tobacco still trying to quit - decrease Hot flashes and some night sweats. Feels hot most of the time. No CTS sympotms LT4 125mcg x6/week Taking 25mg HC daily Exact date of onset of symptoms is unknown Review of systems negative other than as stated above. Physical Exam: Blood pressure 103/77, pulse 82, temperature 36.4 C (97.6 F), temperature source Oral, height 1.727 m (5' 8"), weight 121.564 kg (268 lb). General: A pleasant man who looks [...] CREATININE PLASMA (LAB) 0.70-1.30 mg/dL EGFR - BERMUDIAN >60 mL/min EGFR NON -BERMUDIAN >60 mL/min SODIUM, PLASMA (LAB) 136-145 mmol/L [...] PLASMA (LAB) 0.70-1.30 mg/dL 0.81 EGFR - BERMUDIAN >60 mL/min >60 EGFR NON -BERMUDIAN >60 mL/min >60 SODIUM, PLASMA (LAB) 136-145 [...] CREATININE PLASMA (LAB) 0.70-1.30 mg/dL EGFR - BERMUDIAN >60 mL/min EGFR NON -BERMUDIAN >60 mL/min SODIUM, PLASMA (LAB) 136-145 mmol/L [...] PLASMA (LAB) 0.70-1.30 mg/dL 0.95 EGFR - BERMUDIAN >60 mL/min >60 EGFR NON -BERMUDIAN >60 mL/min >60 SODIUM, PLASMA (LAB) 136-145 [...] CREATININE PLASMA (LAB) 0.70-1.30 mg/dL EGFR - BERMUDIAN >60 mL/min EGFR NON -BERMUDIAN >60 mL/min SODIUM, PLASMA (LAB) 136-145 mmol/L [...] PLASMA (LAB) 0.70-1.30 mg/dL 0.78 EGFR - BERMUDIAN >60 mL/min >60 EGFR NON -BERMUDIAN >60 mL/min >60 SODIUM, PLASMA (LAB) 136-145 [...] cardiac stenting after MRI 02/13. Pt reports now doing much better after starting tx with depot testosterone. His headaches have resolved and he has more energy. He is actively exercising and is dieting and has achie willy a 60lb weight loss and improvement in HA1C. His energy has improved. Pt has new partner. No discussion re fertility at this time. He reports he is generally more regular with takin g medications. I answered pt, SO's questions to their [...] GH deficient. He has been using GH regularly by report. No changes anticipated. 4. Thyroid. TSH, FT4 pending. Will increase dose if FT4 is not in mid to upper range of nor mal. 5. DI. Appears controlled. BMP pending. No change in DDAVp anticiapted. 6. Vitamin D insufficiency. Level pending. Previous dose D3 3,000IU daily Pt reports miss ing some days and taking extra on other days. 7. Pt will follow HA1c locally 8. Follow up in 6 mths 10/24. With labs CATHIE FIELDS DNP, SUPERVISOR BILLPOSTING, [place] Farmworker Bul[employer] [facility] [place] [address] [facility] [place] [address] Component Latest Ref Rng 05/16/2016 05/16/2016 05/16/2016 05/16/2016 12:54 PM 12:54 PM 12:54 PM 12:54 PM GLUCOSE, PLASMA (LAB) 60-99 mg/dL BUN, PLASMA (LAB) 6-20 mg/dL CREATININE PLASMA (LAB) 0.70-1.30 mg/dL EGFR - BERMUDIAN >60 mL/min EGFR NON -BERMUDIAN >60 mL/min SODIUM, PLASMA (LAB) 136-145 mmol/L POTASSIUM, PLASMA (LAB) 3.4-5.0 mmol/L CHLORIDE, PLASMA (LAB) 97-108 mmol/L TOTAL CO2, PLASMA (LAB) 21-32 mmol/L CALCIUM, PLASMA (LAB) 8.6-10.2 mg/dL ANION GAP POTASSIUM CMNT FREE T4, SERUM 0.6-1.2 ng/dL 1.4 (H) PROLACTIN 3 - 13 ng/mL 8 TSH 0.39-4.17 mIU/L 0.50 VITAMIN D 25 HYDROXY 30-80 ng/mL 29.8 (L) Component Latest Ref Rng 05/16/2016 12:54 PM GLUCOSE, PLASMA (LAB) 60-99 mg/dL 90 BUN, PLASMA (LAB) 6-20 mg/dL 11 CREATININE PLASMA (LAB) 0.70-1.30 mg/dL 0.72 EGFR - BERMUDIAN >60 mL/min >60 EGFR NON -BERMUDIAN >60 mL/min >60 SODIUM, PLASMA (LAB) 136-145 mmol/L 138 POTASSIUM, PLASMA (LAB) 3.4-5.0 mmol/L 3.7 CHLORIDE, PLASMA (LAB) 97-108 mmol/L 103 TOTAL CO2, PLASMA (LAB) 21-32 mmol/L 27 CALCIUM, PLASMA (LAB) 8.6-10.2 mg/dL 9.1 ANION GAP 8 POTASSIUM CMNT No Hemo FREE T4, SERUM 0.6-1.2 ng/dL PROLACTIN 3 - 13 ng/mL TSH 0.39-4.17 mIU/L VITAMIN D 25 HYDROXY 30-80 ng/mL Plan addendum: 1. Thryoid level Sl elevated. Will recheck level in 2 months locally prior to changing dose . 2. Testosterone level pending. ( Peak) pt will follow up with PCP 3. Vitamin D level now borderline. Will not change dose at this time will recheck at next v isit, 4. Follow up 10/24 CATHIE FIELDS DNP, TOMER, BECCA Farmworker Bul[employer] [facility] [place] [address] [facility] [address] documented in this encounter Plan of Treatment +--------+---------+ + + + | Date | Type | Specialty | Care Team | Description | +--------+---------+ + + + | 08/15/ | Office | Cardiology | Zuleika Hernandez, | | | 2019 | Visit | | [address] | | | | | | [address] | | | | | | [place], [place] | | | | | | [address] | | | | | | [phone] | | | | | | | | +--------+---------+ + + + documented as of this encounter Results VITAMIN D, 25-HYDROXY, SERUM (05/16/2016 12:54 PM PDT) + + + + + + | Component | Value | Ref Range | Performed | Pathologist | | | | | At | Signature | + + + + + + | VITAMIN D | 29.8 (L) | 30 - 80 ng/mL | [...] | + + + + + | [facility] | [address] | [place] [address] | | | MASSIEL, VITALY | [address] | | | + + + + + TSH (05/16/2016 12:54 PM PDT) + +-------+ + + + | Component | Value | Ref Range | Performed | Pathologist | | | | | At | Signature | + +-------+ + + + | TSH | 0.50 | 0.39 - 4.17 | [facility] | [...] | + + + + + | [facility] | [address] | [place] [address] | | | SERVICES, VITALY | [address] | | | + + + + + TESTOSTERONE, SERUM (05/16/2016 12:54 PM PDT) + + + + + + | Component | Value | Ref Range | Performed | Pathologist | | | | | At | Signature | + + + + + + | TESTOSTERON | 1110 (H)Comment: Total | 300 - 1080 | [facility] [...] | | | this test in the [facility] | | | | | | Laboratory Test | | | | | | Directory | | | | | | ([employer]).Performed | | | | | | by [employer],[address] | | | | | | [address], [facility],[place] | | | | | | [address] | | | | | | [phone].[employer]. | | | | | | [facility], Draiel Tobin, | | | | | | [...] [facility] | [address] | [place], [place] | | | [facility] | | [address] | | + + + + + PROLACTIN, SERUM (05/16/2016 12:54 PM PDT) + +-------+ + + + | Component | Value | Ref Range | Performed | Pathologist | | | | | At | Signature | + +-------+ + + + | PROLACTIN | 8 | 3 - 13 ng/mL | [facility] | | | | | | [facility] - | | | | | | [place] | | + +-------+ + + + + + | Specimen | + + | Blood - Blood | + + + + + + + | Performing | Address | City/State/Zipcode | Phone Number | | Organization | | | | + + + + + | [facility] | [address] | [place] [address] | | | [place] | | | | + + + + + INSULIN GROWTH FACTOR-1, SERUM (05/16/2016 12:54 PM PDT) + + + + + + | Component | Value | Ref Range | Performed | Pathologist | | | | | At | Signature | + + + + + + | IGF-1 | 172Comment: REFERENCE | 132 - 333 ng/mL | [...] | | | this test in the [facility] | | | | | | Laboratory Test | | | | | | Directory | | | | | | ([employer]).Performed | | | | | | by [employer],[address] | | | | | | [address] Pickens [facility],[place] | | | | | | [address] | | | | | | [phone].[employer]. | | | | | | [facility], Dariel Tobin, | | | | | | MD Lab. Director | | | | + + + + + + + + | Specimen | + + | Blood - Blood | + + + + + + + | Performing | Address | City/State/Zipcode | Phone Number | | Organization | | | | + + + + + | [facility] | [address] | [place], [place] | | | [facility] | | [address] | | + + + + + FREE T4 (05/16/2016 12:54 PM PDT) + +---------+ + + + | Component | Value | Ref Range | Performed | Pathologist | | | | | At | Signature | + +---------+ + + + | FREE T4 | 1.4 (H) | 0.6 - 1.2 ng/dL | [...] [facility] | [address] | [place] [address] | | | SERVICES, VITALY | [address] | | | + + + + + BASIC METABOLIC SET (NA, K, CL, TCO2, BUN, CR, GLU, CA) (05/16/2016 12:54 PM PDT) + +---------+ + + + | Component | Value | Ref Range | Performed | Pathologist | | | | | At | Signature | + +---------+ + + + | GLUCOSE, | 90 | 60 - 99 mg/dL | [facility] [...] +---------+ + + + | CREATININE | 0.72 [...] | | | LABORATORY | | | BERMUDIAN | | | SERVICES, | | | [...] | + + + + + | [facility] | [address] | [place] [address] | | | SERVICES, VITALY | [address] | | | + + + + + documented in this encounter Visit Diagnoses + + | Diagnosis | + + | Pituitary adenoma (HCC) - Primary Benign neoplasm of pituitary gland and | | craniopharyngeal duct (pouch) | + + | Growth hormone deficiency (HCC) Pituitary dwarfism | + + | Diabetes insipidus ([facility]) Diabetes insipidus | + + | Hypogonadism male Other testicular hypofunction | + + | Acquired hypothyroidism Unspecified hypothyroidism | + + | Adrenal insufficiency (HCC) Glucocorticoid deficiency | + + | Vitamin D deficiency | + + documented in this encounter
--- OUTSIDE RECORDS SUMMARY | ~2019-07-14 | XMS | Encounter Summary ---
Demographics + + + | Address | [address] | | | [place] [address] | + + + | Home Phone [...] + + | Author | [place] [employer] [facility] | + + + | Organization | [facility] [...] Team Providers + +------+ + | Care Vascular Sonographer Name | Role | Phone | + +------+ + | Priscilla Ramírez PA-C | PCP | | + +------+ + Encounter Details +--------+ + + + + | Date | Type | Department | Care Team | Description | +--------+ + + + + | 01/29/ | MyChart | Cardiology General | | Please call to | | 2017 | Encounter | at [facility] [address] | | reschedule your | | | | [place] Mailcode: | | Cardiology | | | | [address] | | appointment | | | | Health and Healing, | | | | | | Building | | | | | | floor [place], [place] | | | | | | [address] | | | | | | [phone] | | | +--------+ + + + [...] Rd | | | | | | [place], [place] | | | | | | [address] | | | | | | [phone] | | | | | | | | +--------+---------+ + + + documented as of this encounter Visit Diagnoses Not on filedocumented in this encounter"
--- OUTSIDE RECORDS SUMMARY | ~2019-07-14 | XMS | Encounter Summary ---
Demographics + + + | Address | [address] | | | [place] [address] | + + + | Home Phone | | + + + | Preferred Language | Unknown | + + + | Marital Status | Single | + + + | Temple Affiliation | Unknown | + + + | Race | Unknown | + + + | Ethnic Group | Unknown | + + + Author + + + | Author | [facility] | | | and [place] | + + + | Organization | [facility] | | | and [...] Team Providers + +------+ + | Care Dial Buffer Name | Role | Phone | + [...] Closed | | Otolaryngolog | Diagnoses | [place], | Zafar, Mckay | | | | y | Nasal 1 | BRETT Schneider | Josef, [address] | | | | | week follow | [address] | [address] | | | | | up/ [place]/ | [address] [place] | [address] | | | | | [place]/ | [place], [place] | [place], | | | | | Self/NEED | [address] | [place] [address] | | | | | AUTH | Phone: | Phone: | | | | | Procedures | [phone] | [phone] | | | | | OFFICE VISIT | Fax: | Fax: | | | | | REGULAR | [phone] | [phone] | +--------+--------+ + + + + Encounter Details +--------+---------+ + + + | Date | Type | Department | Care Team | Description | +--------+---------+ + + + | 04/11/ | Office | [facility] | Mckay Zafar MD | Hypertrophy of nasal | | 2016 | Visit | OTOLARYNGOLOGY [address] | [address] [place] | turbinates (Primary | | | | [address] | [address] [place], | Dx); 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[place], [place] | [place] [address] | septum | | | | [address] | [phone] | | | | | [phone] | | | +--------+---------+ + + + [...] MD - 04/11/2016 11:24 AM PDT [facility] OTOLARY[facility]OLOGY [address] [facility] [address] OFFICE NOTE MCKAY ZAFAR MD Patient: FAROOQ LEMA Admitting: MR #: [id number] LOC: PT TYPE: Adm Date: 04/11/2016 : [...] 11:24:45 Transcribed on 04/12/2016 05:49:51 by job# [id number] Confirmation #: [id number] cc: JINNY BERGERON MD a [facility], Mckay Bahena MD - 04/11/2016 11:21 AM PDTSee dictation # [id number] signed by Mckay Zafar MD at 04/11/2016 11:25 AM PDTdocumented in th is encounter Plan of Treatment +--------+---------+ + + + | Date | Type | Specialty | Care Team | Description | +--------+---------+ + + + | 11/21/ | Office | Sleep Medicine | Sumanth Champion PA | | | 2019 | Visit | | [address] | | | | | | [place] | | | | | | [address] | | | | | | | | +--------+---------+ + + + documented as of this encounter Visit Diagnoses + + | Diagnosis | + + | Hypertrophy of nasal turbinates - Primary | + + | Deviated nasal septum | + + documented in this encounter
--- OUTSIDE RECORDS SUMMARY | ~2019-07-14 | XMS | Encounter Summary ---
Demographics + + + | Address | [address] | | | [place] [address] | + + + | Home Phone [...] + + | Author | [place] [employer] [facility] | + + + | Organization | [facility] | + + + | Address | Unknown | + + + | Phone | Unavailable | + + + Support + + +---------+ + | Name | Relationship | Address | Phone | + + +---------+ + | Alexandria Dixon | ECON | Unknown | | + + +---------+ + Care Team Providers + +------+ + | Care Watch Inspector Name | Role | Phone | [...] Phone communication | | 2014 | | [facility] [address] | Cathie, | | | | | [place] Mailcode: CH8N | DNP,FILM AND VIDEO GRAPHICS DESIGNER,[place] [address] | | | | | [facility] | [address] [place], | | | | | and Healing, | [place] [address] | | | | | [place] [address] | [phone] | | | | | [place], [place] | | | | | | [address] | | | | | | [phone] | | | +--------+ + + + [...] | | 2019 | Visit | | [address] | | | | | | [address] | | | | | | [place], [place] | | | | | | [address] | | | | | | [phone] | | | | | | | | +--------+---------+ + + + documented as of this encounter Visit Diagnoses Not on filedocumented in this encounter"
--- OUTSIDE RECORDS SUMMARY | ~2019-07-14 | XMS | Encounter Summary ---
Demographics + + + | Address | [address] | | | [place] [address] | + + + | Home Phone [...] + + | Author | [place] [employer] [facility] | + + + | Organization | [facility] [...] Team Providers + +------+ + | Care Asphalt Still Operator Name | Role | Phone | + +------+ + | Jinny Bergeron MD | PCP | | + +------+ + Encounter Details +--------+------+ + + + | Date | Type | Department | Care Team | Description | +--------+------+ + + + | 11/15/ | Lab | Laboratory at [facility] | | Pituitary adenoma | | 2016 | | [address] | | ([facility]); 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[place], [place]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 | | | | [address] | | ([facility]); Diabetes | | | | [phone] | | insipidus ([facility]); | | | | | | [...] | | 2019 | Visit | | [address] | | | | | | [address] | | | | | | [place], [place] | | | | | | [address] | | | | | | [phone] | | | | | | | [...] | + + + + + | [employer] | [address] | [place] [address] | | | SERVICES, CORE | KIMO [...] [facility] | [address] | [place] [address] | | | SERVICES, SPECIAL | PARK [...] [facility] | [address] | [place] [address] | | | SERVICES, CORE | KIMO [...] - | | | | | | [place] | | + +-------+ + + + + + | Specimen | + + | Blood - Blood | + + + + + + + | Performing | Address | City/State/Zipcode | Phone Number | | Organization | | | | + + + + + | [facility] | [address] | [place] [address] | | | [facility] | | | | + [...] | | | this test in the [facility] | | | | | | Laboratory Test | | | | | | Directory | | | | | | (StemCells.momondo).Performed | | | | | | by Mobile [employer],[address] | | | | | | Michi Pickens, [facility],[place] | | | | | | [address] | | | | | | [phone].[employer]. | | | | | | [place] [facility], Dariel Tobin, | | | | | | [place], Lab. Director | | | | + + + + + + + + | Specimen | + + | Blood - Blood | + + + + + + + | Performing | Address | City/State/Zipcode | Phone Number | | Organization | | | | + + + + + | [facility] | [address] | [place], [place] | | | [facility] | | [address] | | + + + + + [...] + | [facility] | [address] | [place] [address] | | | [place] | | | [...] | + + + + + | [facility] | [address] | [place] [address] | | | SERVICES, CORE | PARK [...] | | | LABORATORY | | | TANZANIAN | | | SERVICES, | | | [...] [facility] | [address] | [place] [address] | | | SERVICES, CORE | PARK [...]
--- OUTSIDE RECORDS SUMMARY | ~2019-07-14 | XMS | Encounter Summary ---
Demographics + + + | Address | [address] | | | [place] [address] | + + + | Home Phone [...] + + + | Author | [place] [employer] [facility] | + + + | Organization | [facility] | + + + | Address | Unknown | + + + | Phone | Unavailable | + + + Support + + +---------+ + | Name | Relationship | Address | Phone | + + +---------+ + | Alexandria Dixon | ECON | Unknown | | + + +---------+ + Care Team Providers + +------+ + | Care Filter Assembler Name | Role | Phone | + +------+ + | Jinny Bergeron MD | PCP | | + +------+ + Encounter Details +--------+------+ + + + | Date | Type | Department | Care Team | Description | +--------+------+ + + + | 06/22/ | Lab | Laboratory at [facility] | | Pituitary adenoma | | 2014 | | [address] | | ([facility]); 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[place], [place]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 | | | | [address] | | ([facility]); Diabetes | | | | 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 | | insipidus ([facility]); | | | | | | Hypogonadism male; | | | | | | Postoperative | | | | | | hypothyroidism; [...] | | 2019 | Visit | | [address] | | | | | | [address] | | | | | | [place], [place] | | | | | | [address] | | | | | | [phone] | | | | | | | | +--------+---------+ + + + documented as of this encounter Procedures + +--------+ + + + | Procedure Name | Priori | Date/Time | Associated Diagnosis | Comments | | | ty | | | | + +--------+ + + + | PSA TOTAL, | Routin | 06/22/2015 | Pituitary adenoma | Results for this | | SCREENING, SERUM | e | 10:26 AM | (HCC) Growth | procedure are in the | | | | PST | hormone deficiency | results section. 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) | | + +--------+ + + + documented in this encounter Results PSA TOTAL, SCREENING, SERUM [...] | + + + + + | [facility] | [address] | [place] [address] | | | VITALY RANKIN | KIMO [...] [facility] | [address] | [place] [address] | | | SERVICES, SPECIAL | PARK [...] | + + + + + | [facility] | [address] | [place] [address] | | | SERVICES, SPECIAL | PARK [...] | + + + + + | [facility] | [address] [facility] | [place] [address] | | | SERVICES, CORE | PARK [...] | | | this test in the [facility] | | | | | | Laboratory Test | | | | | | Directory | | | | | | (Hurricane Party.Woisio).Performed | | | | | | by [address] | | | | | | Michi Pickens, [facility],[place] | | | | | | [address] | | | | | | [phone].Hurricane Party. | | | | | | kane [...] [facility] | [address] | [place], [place] | | | [facility] | | [address] | | + + + + + [...] + | [facility] | [address] | [place] [address] | | | [place] | | | [...] + | [facility] | [address] | [place] [address] | | | [place] | | | [...] [facility] | [address] | [place] [address] | | | SERVICES, CORE | PARK [...] | | | LABORATORY | | | [place]UR[place] | | | SERVICES, | | | [...] the MDRD equation recommended by the | [facility] | | National Kidney Disease Education Program. [...] | + + + + + | [facility] | [address] | [place] [address] | | | VITALY RANKIN | KIMO [...]
--- OUTSIDE RECORDS SUMMARY | ~2019-07-14 | XMS | Encounter Summary ---
Demographics + + + | Address | [address] | | | [place] [address] | + + + | Home Phone | | + + + | Preferred Language | Unknown | + + + | Marital Status | Single | + + + | Zoroastrian Affiliation | Unknown | + + + | Race | Unknown | + + + | Ethnic Group | Unknown | + + + Author + + + | Author | [facility] | | | and [place] | + + + | Organization | [facility] | | | and [...] Providers + +------+ + | Care Supervisor Powder And Primer Canning Name | Role | Phone | + +------+ + PCP | Unavailable | + +------+ + Encounter Details +--------+ + + + + | Date | Type | Department | Care Team | Description | +--------+ + + + + | 04/22/ | Abstract | [facility] | DATA MIGRATION TRENT | | | 2011 | | Conversion Location | SR | | | | | [phone] | | | +--------+ + + + [...] + + + | Blood Pressure | 122/64 | 02/04/2012 12:00 AM | | | | | PDT | | + + + + + | Pulse | - | - | | + [...] + + + + | Weight | 134.2 kg (295 lb | 02/04/2012 12:00 AM | | | | 14.4 oz) | PDT | | + + + + + | Height | 172.7 cm (5' 8") | 10/30/2010 12:00 AM | | | | | PDT | | + + + + + | Body Mass Index | 44.99 | 10/30/2010 12:00 AM | | | | | PDT | | + + + + + documented in this encounter Plan of Treatment +--------+---------+ + + + | Date | Type | Specialty | Care Team | Description | +--------+---------+ + + + | 11/21/ | Office | Sleep Medicine | Sumanth Champion PA | | | 2020 | Visit | | [address] | | | | | | [place] | | | | | | [address] | | | | | | | | +--------+---------+ + + + documented as of this encounter Visit Diagnoses Not on filedocumented in this encounter
--- OUTSIDE RECORDS SUMMARY | ~2019-07-14 | XMS | Encounter Summary ---
Demographics + + + | Address | [address] | | | [place] [address] | + + + | Home Phone [...] + + + | Author | [place] [facility] [place] [facility] | + + + | Organization | [facility] | + + + | Address | Unknown | + + + | Phone | Unavailable | + + + Support + + +---------+ + | Name | Relationship | Address | Phone | + + +---------+ + | Alexandria Dixon | ECON | Unknown | | + + +---------+ + Care Team Providers + +------+ + | Care Turnstile Collector Name | Role | Phone | [...] | | | | | [place], | | | | | | [place] [address] | | | +--------+ + + + [...] | | 2019 | Visit | | [address] | | | | | | [address] | | | | | | [place], [place] | | | | | | [address] | | | | | | [phone] | | | | | | | [...] | + + | 09/16/2005 10:35 AM [facility] Anesthesia PostOp Report | | | | Patient: FAROOQ LEMA [facility] Rec: [id number] Sex M Bdate: 1980 | | Date/Time Data | | Entered Into [facility] | | Anesth PostOp | | Surgery Date [id number] 09/16/05 10:35 | | Anesthesiologist QUYNH PEREZ 09/16/05 10:35 | | Resident Anesthesiolog ELENI HOOPER 09/16/05 10:35 | | | + + documented in this encounter Visit Diagnoses Not on filedocumented in this encounter"
--- OUTSIDE RECORDS SUMMARY | ~2019-07-14 | XMS | Encounter Summary ---
Demographics + + + | Address | [address] | | | [place] [address] | + + + | Home Phone [...] + + + | Author | [place] [employer] [facility] | + + + | Organization | [facility] [...] Team Providers + +------+ + | Care Scanning Manager Name | Role | Phone | + +------+ + | Priscilla Ramírez PA-C | PCP | | + +------+ + Reason for Visit + + + | Reason | Comments | + + + | Procedure | | + + + Encounter Details +--------+ + + + + | Date | Type | Department | Care Team | Description | +--------+ + + + + | 03/29/ | Telephone | Cardiac Faculty Physician | Galdino Ramirez | Procedure | | 2018 | | at [address] | [address], [address] | | | | | [address] | Ave [place], [place] | | | | | [facility] | [address] | | | | | [place], [place] | [phone] | | | | | [address] | | | | | | [phone] | | | +--------+ + + + [...] Pool | | | | | | [address] | | | | | | [place], [place] | | | | | | [address] | | | | | | [phone] | | | | | | | | +--------+---------+ + + + documented as of this encounter Visit Diagnoses Not on filedocumented in this encounter"
--- OUTSIDE RECORDS SUMMARY | ~2019-07-14 | XMS | Encounter Summary ---
Demographics + + + | Address | [address] | | | [place] [address] | + + + | Home Phone [...] + + + | Author | [place] [employer] [facility] | + + + | Organization | [facility] | + + + | Address | Unknown | + + + | Phone | Unavailable | + + + Support + + +---------+ + | Name | Relationship | Address | Phone | + + +---------+ + | Alexandria Dixon | ECON | Unknown | | + + +---------+ + Care Team Providers + +------+ + | Care Insulation Board Head Saw Operator Name | Role | Phone | + +------+ + | Jinny Bergeron MD | PCP | | + +------+ + Encounter Details +--------+------+ + + + | Date | Type | Department | Care Team | Description | +--------+------+ + + + | 05/16/ | Lab | Laboratory at [facility] | | Pituitary adenoma | | 2016 | | [address] | | ([facility]); 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[place], [place]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 | | | | [address] | | ([facility]); Diabetes | | | | [phone] | | insipidus ([facility]); | | | | | | [...] Rd | | | | | | [place], [place] | | | | | | [address] | | | | | | [phone] | | | | | | | | +--------+---------+ + + + documented as of this encounter Procedures + +--------+ + + + | Procedure Name | Priori | Date/Time | Associated Diagnosis | Comments | | | ty | | | | + +--------+ + + + | VITAMIN D, | Routin | 05/16/2016 | Pituitary adenoma | Results for this | | 25-HYDROXY, SERUM | e | 12:54 PM | (HCC) Growth | procedure are [...] | BASIC METABOLIC SET | Routin | 05/16/2016 | Pituitary adenoma | Results for this | | (NA, K, CL, TCO2, | e | 12:54 PM | (HCC) Growth | procedure are [...] + | INSULIN GROWTH | Routin | 05/16/2016 | Pituitary adenoma | Results for this | | FACTOR-1, SERUM | e | 12:54 PM | (HCC) Growth | procedure are [...] + | FREE T4 | Routin | 05/16/2016 | Pituitary adenoma | Results for this | | | e | 12:54 PM | (HCC) Growth | procedure are [...] + + | PROLACTIN | Routin | 05/16/2016 | Pituitary adenoma | Results for this | | | e | 12:54 PM | (HCC) Growth | procedure are [...] + + | TSH | Routin | 05/16/2016 | Pituitary adenoma | Results for this | | | e | 12:54 PM | (HCC) Growth | procedure are [...] + | TESTOSTERONE, SERUM | Routin | 05/16/2016 | Pituitary adenoma | Results for this | | | e | 12:54 PM | (HCC) Growth | procedure are [...] [facility] | [address] | [place] [address] | | | SERVICES, CORE | PARK [...] | + + + + + | [facility] | [address] | [place] [address] | | | SERVICES, CORE | KIMO [...] | | | this test in the [facility] | | | | | | Laboratory Test | | | | | | Directory | | | | | | (Kaesu.WildTangent).Performed | | | | | | by [employer],[facility] | | | | | | Michi Pickens, [facility],[place] | | | | | | [address] | | | | | | [phone].[facility]. | | | | | | [facility], Dariel Tobin, | | | | [...] [facility] | [address] | [place], [place] | | | [facility] | | [address] | | + + + + + [...] + | [facility] | [address] | [place] [address] | | | [place] | | | [...] | | | this test in the [facility] | | | | | | Laboratory Test | | | | | | Directory | | | | | | (Kaesu.WildTangent).Performed | | | | | | by [employer],[address] | | | | | | Michi Pickens, [facility],[place] | | | | | | [address] | | | | | | [phone].Kaesu. | | | | | | [facility], Dariel Tobin, | | | | [...] [facility] | [address] | [place], [place] | | | [facility] | | [address] | | + + + + + [...] | + + + + + | [facility] | [address] | [place] [address] | | | SERVICES, CORE | KIMO [...] | | | LABORATORY | | | KYRGYZ | | | SERVICES, | | | [...] | + + + + + | [facility] | [address] | [place] [address] | | | SERVICES, CORE | KIMO [...]
--- OUTSIDE RECORDS SUMMARY | ~2019-07-14 | XMS | Encounter Summary ---
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[facility] [address] | [place], | ([facility]) (Primary Dx); | | | | Rosalva Mailcode: 8N | DNP,OIL PIPE INSPECTOR,[place] [address] | Pituitary adenoma | | | | [facility] | [address] [place], | ([facility]); 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and Healing, | [place] [address] | hormone deficiency | | | | [address] | [phone] | ([facility]); Diabetes | | | | [place], [place] | | insipidus ([facility]); | | | | [address] | | Vitamin D | | | | [phone] | | deficiency; | | | | | | Hypogonadism male; | | | | | | Other specified | | | | | | hypothyroidism; | | | | | | Adrenal | | | | | | insufficiency ([facility]) | +--------+---------+ + + + Social History [...] in this encounter Progress Notes Cathie Fields, DNP,OIL PIPE INSPECTOR,[place] - 05/12/2017 1:30 PM PDTFormatting of this [...] cardiac stent place 02/2011 after a n [place]. At this visit; Symptoms and Complaints: Admitted to [facility] 3 weeks ago with chest pain and [...] intermittently Sleeps more during the day at [facility] Still feels hot a lot of the [...] CREATININE PLASMA (LAB) 0.70-1.30 mg/dL EGFR - CUBAN >60 mL/min EGFR NON -CUBAN >60 mL/min SODIUM, PLASMA (LAB) 136-145 mmol/L [...] PLASMA (LAB) 0.70-1.30 mg/dL 0.81 EGFR - CUBAN >60 mL/min >60 EGFR NON -CUBAN >60 mL/min >60 SODIUM, PLASMA (LAB) 136-145 [...] CREATININE PLASMA (LAB) 0.70-1.30 mg/dL EGFR - CUBAN >60 mL/min EGFR NON -CUBAN >60 mL/min SODIUM, PLASMA (LAB) 136-145 mmol/L [...] PLASMA (LAB) 0.70-1.30 mg/dL 0.95 EGFR - CUBAN >60 mL/min >60 EGFR NON -CUBAN >60 mL/min >60 SODIUM, PLASMA (LAB) 136-145 [...] CREATININE PLASMA (LAB) 0.70-1.30 mg/dL EGFR - CUBAN >60 mL/min EGFR NON -CUBAN >60 mL/min SODIUM, PLASMA (LAB) 136-145 mmol/L [...] PLASMA (LAB) 0.70-1.30 mg/dL 0.78 EGFR - CUBAN >60 mL/min >60 EGFR NON -CUBAN >60 mL/min >60 SODIUM, PLASMA (LAB) 136-145 [...] CREATININE PLASMA (LAB) 0.70-1.30 mg/dL EGFR - CUBAN >60 mL/min EGFR NON -CUBAN >60 mL/min SODIUM, PLASMA (LAB) 136-145 mmol/L [...] PLASMA (LAB) 0.70-1.30 mg/dL 0.72 EGFR - CUBAN >60 mL/min >60 EGFR NON -CUBAN >60 mL/min >60 SODIUM, PLASMA (LAB) 136-145 [...] 11/25. With labs TOMER MONTELONGO DNP, BECCA Ladle Patcher [facility] BT [address] [place] [facility] [place] [address] Plan addendum: 1. Thryoid level WNL. No change in current dose of LT4 Will recheck level in 6 months. 2. Testosterone level pending. ( Peak) pt will follow up with PCP 3. Vitamin D level improved continue same dose of vit D3. 4. IGF-1 pending. 5. Follow up 10/25 TOMER MONTELONGO DNP, BECCA Ladle Patcher [facility] BTE [address] [place] [facility] [place] [address] Component Latest Ref Rng & Units 05/12/2017 05/12/2017 05/12/2017 05/12/2017 2:03 PM 2:03 PM 2:03 PM 2:03 PM GLUCOSE, PLASMA (LAB) 70 - 99 mg/dL 108 (H) BUN, PLASMA (LAB) 6 - 20 mg/dL 13 CREATININE PLASMA (LAB) 0.70 - 1.30 mg/dL 0.84 EGFR - CUBAN >60 mL/min >60 EGFR NON -CUBAN >60 mL/min >60 SODIUM, PLASMA (LAB) 136 [...] (LAB) 0.70 - 1.30 mg/dL EGFR - CUBAN >60 mL/min EGFR NON -CUBAN >60 mL/min SODIUM, PLASMA (LAB) 136 - [...] | | 2019 | Visit | | [address] | | | | | | [address] | | | | | | [place], [place] | | | | | | [address] | | | | | | [phone] | | | | | | | [...] [facility] | [address] | [place] [address] | | | SERVICES, CORE | KIMO [...] + + + + | [facility] | [address] | [place] [address] | | | VITALY RANKIN | KIMO [...] | | | this test in the [employer] | | | | | | Laboratory Test | | | | | | Directory | | | | | | ([employer]).Performed | | | | | | by ATEME,[address] | | | | | | Jaziel Marx, [facility] [place] | | | | | | [address] | | | | | | [phone].Z Plane. | | | | | | Ty [...] [facility] | [address] | [place], [place] | | | [facility] | | [address] | | + + + + + [...] + | [facility] | [address] | [place] [address] | | | [place] | | | [...] | | | this test in the [facility] | | | | | | Laboratory Test | | | | | | Directory | | | | | | ([employer]).Performed | | | | | | by [address] | | | | | | Jaziel Marx, [facility] [place] | | | | | | [address] | | | | | | [phone].[facility]. | | | | | | [facility], Ty Walter MD, | | | [...] [facility] | [address] | [place], [place] | | | [facility] | | [address] | | + + + + + [...] [facility] | [address] | [place] [address] | | | SERVICES, CORE | PARK [...] | | | LABORATORY | | | CUBAN | | | SERVICES, | | | [...] + + + + | [facility] | [address] | [place] [address] | | | SERVICES, CORE | KIMO [...]
--- OUTSIDE RECORDS SUMMARY | ~2019-07-14 | XMS | Encounter Summary ---
Demographics + + + | Address | [address] | | | [place] [address] | + + + | Home Phone [...] + + + | Author | [place] [employer] [facility] | + + + | Organization | [facility] | + [...] Team Providers + +------+ + | Care Delinquent Tax Collection Assistant Name | Role | Phone | [...] | | | neoplasm of | | DNP,STRING STUDIES DIRECTOR,[place] | | | | | pituitary | | [address] | | | | | gland and | | Ave | | | | | craniopharyn | | [place], [place] | | | | | geal duct | | [address] | | | | | (pouch) | | Phone: | | | | | ([facility]) | | [phone] | | | | | Procedures | | Fax: | | | | | LA ESTAB | | [phone] | | | | | PATIENT | | | | | | | LEVEL 5 LA | | | | | | | [...] adenoma | | 2009 | Visit | [facility] [address] | [place], | ([facility]); Adrenal | | | | Ave Mailcode: CH8N | DNP,STRING STUDIES DIRECTOR,[place] [address] | insufficiency ([facility]); | | | | Amery for [facility] | [address] [place], | 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 [...] disc bulge by MRI and is pending [facility] treatment. Amairani did not take any extra [...] change in DDAVp anticiapted. 5. MRI 04/21with LABEL MAKER, RM labs I spent 40 mins in face to face evaluation of this patient of which over 50% was spent in skyler olivia and coordination of care CARRINGTON FIELDS NP [facility] BTE [address] [facility] [address] documented in this encounter Plan of Treatment +--------+---------+ + + + | Date | Type | Specialty | Care Team | Description | +--------+---------+ + + + | 08/15/ | Office | Cardiology | Zuleika Hernandez, | | | 2019 | Visit | | [address] | | | | | | [address] | | | | | | [place], [place] | | | | | | [address] | | | | | | [phone] | | | | | | | [...] Way Lab) [place] | REGIONAL | | [place] [address] [facility] | LABORATORY | | [place] [address] | | + + + + + + + + | Performing | Address | City/State/Zipcode | Phone Number | | Organization | | | | + + + + + | [facility] | [address] | [place] [address] | | | LABORATORY | | | [...] At | + + + | RLB ([address] [facility]) | [place] | | [place] [facility] [address] | REGIONAL | | [place] [address] | LABORATORY | + + + + + + + + | Performing | Address | City/State/Zipcode | Phone Number | | Organization | | | | + + + + + | [facility] | [address] | [place] [address] | | | LABORATORY | | | [...] [place] | [place] | | [facility] [place] [address] | REGIONAL | | [place] [address] | LABORATORY | + + + + + + + + | Performing | Address | City/State/Zipcode | Phone Number | | Organization | | | | + + + + + | [facility] | [address] | [place] [address] | | | LABORATORY | | | [...] + + + | [facility] ([address] [facility]) [place] | [place] | | [place] [address] | REGIONAL | | [place] [address] | LABORATORY | + + + + + + + + | Performing | Address | City/State/Zipcode | Phone Number | | Organization | | | | + + + + + | [facility] | [address] | [place] [address] | | | LABORATORY | | | [...] + + + | [facility] ([address] [facility]) [place] | [place] | | [place] [address] | REGIONAL | | [place] [address] | LABORATORY | + + + + + + + + | Performing | Address | City/State/Zipcode | Phone Number | | Organization | | | | + + + + + | [facility] | [address] | [place] [address] | | | LABORATORY | | | [...] At | + + + | RLB ([address] [facility]) [place] | [place] | | [place] [address] | [facility] | | [place] [address] | LABORATORY | + + + + + + + + | Performing | Address | City/State/Zipcode | Phone Number | | Organization | | | | + + + + + | [facility] | [address] | [place] [address] | | | LABORATORY | | | [...] | | | DEPARTMENT | | | [place] | | | OF | | | [...] + + + + + | [facility] | [address] | [place] [address] | | | PATHOLOGY | [address] [...] Way Lab) [place] | [place] | | [facility] [place] [address] | REGIONAL | | [place] [address] | LABORATORY | + + + + + + + + | Performing | Address | City/State/Zipcode | Phone Number | | Organization | | | | + + + + + | [facility] | [address] | [place] [address] | | | LABORATORY | | | [...]
--- OUTSIDE RECORDS SUMMARY | ~2019-07-14 | XMS | Encounter Summary ---
Demographics + + + | Address | [address] | | | [place] [address] | + + + | Home Phone | | + + + | Preferred Language | Unknown | + + + | Marital Status | Single | + + + | Sikh Affiliation | NON | + + + | Race | or | + + + | Ethnic Group | Not or | + + + Author + + + | Author | [place] [facility] | + + + | Organization | [facility] | + + + | Address | Unknown | + + + | Phone | Unavailable | + + + Support + + +---------+ + | Name | Relationship | Address | Phone | + + +---------+ + | Alexandria Dixon | ECON | Unknown | | + + +---------+ + Care Team Providers + +------+ + | Care Customer Technical Services Manager Name | Role | Phone [...] | | | 2016 | Event | [facility] | [address] | | | | | Admitting Desk | [place], | | | | | Located on the | [place] [address] | | | | | floor [address] [facility] | [phone] | | | | | [address] [place] | | | | | | [place], [place] | Nitin Talavera | | | | | [address] | [address] | | | | | | [address] | | | | | | [place], [place] | | | | | | [address] | | | | | | [phone] | | | | | | | | +--------+ + + + + Anesthesia Record + + + + + | Procedure Name | Responsible | Anesthesia Start | Anesthesia Stop Time | | | Anesthesiologist | Time | | + + + + + | RESECTION OF MITRAL | Alexandria Alford MD | 07/08/16 0739 | 07/08/16 1010 | | VALVE MASS; [...] Line | Jugular; 07/08/161124; Per | | Melida Negrete RN | [...] | | 2019 | Visit | | [address] | | | | | | [address] | | | | | | [place], [place] | | | | | | [address] | | | | | | [phone] | | | | | | | [...]
--- OUTSIDE RECORDS SUMMARY | ~2019-07-14 | XMS | Encounter Summary ---
Demographics + + + | Address | [address] | | | [place] [address] | + + + | Home Phone [...] + + + | Author | [place] [facility] | + + + | Organization | [facility] [...] Team Providers + +------+ + | Care Lounge Car Attendant Name | Role | Phone | + +------+ + | Jinny Bergeron MD | PCP | | + +------+ + Encounter Details +--------+ + + + + | Date | Type | Department | Care Team | Description | +--------+ + + + + | 03/20/ | MyChart | Neurosurgery at | Donnie, | Refill | | 2013 | Encounter | [facility] [address] | Cathie | | | | | [place] Mailcode: CH8N | DNP,BLAST FURNACE BLOWER,[place] [address] | | | | | [facility] | [address], | | | | | [place], | [place] [address] | | | | | [place] [address] | [phone] | | | | | [place], [place] | | | | | | [address] | | | | | | [phone] | | | +--------+ + + + [...] | | | | | | [place], [place] | | | | | | [address] | | | | | | [phone] | | | | | | | [...]
--- OUTSIDE RECORDS SUMMARY | ~2019-07-14 | XMS | Encounter Summary ---
Demographics + + + | Address | [address] | | | [place] [address] | + + + | Home Phone [...] + + + | Author | [place] [employer] [facility] | + + + | Organization | [facility] | + + + | Address | Unknown | + + + | Phone | Unavailable | + + + Support + + +---------+ + | Name | Relationship | Address | Phone | + + +---------+ + | Alexandria Dixon | ECON | Unknown | | + + +---------+ + Care Team Providers + +------+ + | Care Interior Mechanic Name | Role | Phone | [...] Refill Request | | 2010 | | [facility] [address] | [place], | | | | | [place] Mailcode: CH8N | DNP,GUARD SERGEANT,[place] [address] | | | | | [facility] | [address] [place], | | | | | and [facility], | [place] [address] | | | | | Building 1 | [phone] | | | | | [place], [place] | | | | | | [address] | | | | | | [phone] | | | +--------+--------+ + + + [...] Rd | | | | | | [place], [place] | | | | | | [address] | | | | | | [phone] | | | | | | | | +--------+---------+ + + + documented as of this encounter Visit Diagnoses Not on filedocumented in this encounter"
--- OUTSIDE RECORDS SUMMARY | ~2019-07-14 | XMS | Encounter Summary ---
Demographics + + + | Address | [address] | | | [place] [address] | + + + | Home Phone | | + + + | Preferred Language | Unknown | + + + | Marital Status | Single | + + + | Protestant Affiliation | Unknown | + + + | Race | Unknown | + + + | Ethnic Group | Unknown | + + + Author + + + | Author | [facility] | | | and [place] | + + + | Organization | [facility] | | | and [...] Providers + +------+ + | Care Engineering Inspector Name | Role | Phone | + +------+ + | Jinny Bergeron MD | PCP | | + +------+ + Reason for Visit +--------+ + | Reason | Comments | +--------+ + | Apnea | | +--------+ + Encounter Details +--------+---------+ + + + | Date | Type | Department | Care Team | Description | +--------+---------+ + + + | 02/13/ | Office | [facility] | Sumanth Champion PA | MALLIKA on CPAP (Primary | | 2015 | Visit | SLEEP DISORDER [address] | [address] | Dx) | | | | [address] [place] | [place] | | | | | [place] [address] | [address] | | | | | [phone] | | | +--------+---------+ + + + [...] + + + | Blood Pressure | 110/78 | 02/13/2015 2:18 PM | | | | | PDT | | + + + + + | Pulse | 103 | 02/13/2015 2:18 PM | | | | | PDT | | + + + + + | Temperature | - | - | | + + + + + | Respiratory Rate | 16 | 02/13/2015 2:18 PM | | | | | PDT | | + + + + + | Oxygen Saturation | 98% | 02/13/2015 2:18 PM | | | | | PDT | | + + + + + | Inhaled Oxygen | - | - | | | Concentration | | | | + + + + + | Weight | 136.7 kg (301 lb 4.8 | 02/13/2015 2:18 PM | | | | oz) | PDT | | + + + + + | Height | - | - | | + + + + + | Body Mass Index | 45.81 | 10/30/2010 12:00 AM | | | | | PDT | | + + + + + documented in this encounter Progress Notes Sumanth Champion PA - 02/13/2015 2:18 PM PDT Subjective: Patient ID: Amairani Tyler is a 34 y.o. male. HPI last office visit was: 08/16/2014 date of polysomnography: 12/10/2006 AHI: 38.9 O2%: 75% with 19.7 minutes below 88% Machine type: ResMed S9 with nasal mask obtained from: [facility] [place] pressure: 12-18 cm Median: 12.1 cm 95%: 13.1 cm maximum: 13.6 cm Nights using CPAP: 229/369 145/181 % of nights >4 hours: 28% 59% average usage (all nights): 2:29 3:55 average usage (nights used): 4:00 4:54 AHI: 0.5 Shai comes in for CPAP compliance with his girlfriend. He has improved his compliance, but continues to struggle with being able to wear it for the duration of his sleep on a nightly basis. He feels that his work schedule is the main challenge, but he has a difficult time remembering to wear his CPAP. His girlfriend often has to remind him to wear it. He also h as many other distractions from wearing it including his dogs that sleep in the bed with him , his friends that stay at his house too much during the day and too late into the night (wh ich reduces his amount of sleep time) and with his mind going too much to allow him to go to sleep. He says his dogs help him unwind. She has a difficult time sleeping with the dogs in the bed because of her allergies and it doesn't allow them time together. He does not ge t enough sleep at night, but says he falls asleep during the day at times (likely more than he thinks). We again discussed in great detail the fact that his girlfriend is very concern ed about his health and is continually urging him to use his CPAP. He has a history of two AMI's and is taking metformin for diabetes. He is starting to notice that he doesn't functi on as well on low amounts of sleep and he is starting to see the health implications of not sleeping well. She seems much more motivated to correct this than he does. I have discussed the download in detail. This shows that his sleep apnea is well controlle d, with an AHI of 0.5. It also shows that his leaks are well controlled. Review of Systems Objective: Physical Exam Assessment: [...] months, sooner prn. Thirty minutes were spent [id number], wi th the majority of time spent [...] [place] | | | | | | [id number] | | | | | | | | +--------+---------+ + + + documented as of this encounter Visit Diagnoses + + | Diagnosis | + + | MALLIKA on CPAP - Primary Obstructive sleep apnea (adult) (pediatric) | + + documented in this encounter"
--- OUTSIDE RECORDS SUMMARY | ~2019-07-14 | XMS | Encounter Summary ---
Demographics + + + | Address | [address] | | | [place] [address] | + + + | Home Phone [...] + + + | Author | [place] [employer] [facility] | + + + | Organization | [facility] | [...] Team Providers + +------+ + | Care Occupational Therapy Supervisor Name | Role | Phone | + +------+ + | Priscilla Ramírez PA-C | PCP | | + +------+ + Encounter Details +--------+ + + + + | Date | Type | Department | Care Team | Description | +--------+ + + + + | 12/21/ | MyChart | Cardiology General | | Dr. Danielle Aguilar is | | 2018 | Encounter | at [facility] [address] | | leaving [facility]. | | | | [address] Mailcode: | | | | | | [address] | | | | | | Health and Healing, | | | | | | [facility] | | | | | | floor [place], [place] | | | | | | [address] | | | | | | [phone] | | | +--------+ + + + [...] Rd | | | | | | [place], [place] | | | | | | [address] | | | | | | [phone] | | | | | | | | +--------+---------+ + + + documented as of this encounter Visit Diagnoses Not on filedocumented in this encounter"
--- OUTSIDE RECORDS SUMMARY | ~2019-07-14 | XMS | Encounter Summary ---
Demographics + + + | Address | [address] | | | [place] [address] | + + + | Home Phone [...] + + + | Author | [place] [employer] [facility] | + + + | Organization | [facility] | [...] Team Providers + +------+ + | Care Typing Checker Name | Role | Phone | + +------+ + | Jhonny Rodriguez DO | PCP | | + +------+ + Encounter Details +--------+ + + + + | Date | Type | Department | Care Team | Description | +--------+ + + + + | 10/16/ | Technologist Infectious Disease | Neurosurgery at | Donnie, | | | 2011 | | [facility] [address] | Cathie | | | | | [place] Mailcode: CH8N | DNP,STUD DAIRY CATTLE FARMER,[place] [address] | | | | | [facility] | [address]ura [address]oya, | | | | | [place], | [place] [address] | | | | | [place] [address] | [phone] | | | | | [place], [place] | | | | | | [address] | | | | | | [phone] | | | +--------+ + + + [...] Rd | | | | | | [place], [place] | | | | | | [address] | | | | | | [phone] | | | | | | | | +--------+---------+ + + + documented as of this encounter Visit Diagnoses Not on filedocumented in this encounter"
--- OUTSIDE RECORDS SUMMARY | ~2019-07-14 | XMS | Encounter Summary ---
Demographics + + + | Address | [address] | | | [place] [address] | + + + | Home Phone [...] + + + | Author | [place] [employer] [facility] | + + + | Organization | [facility] | + + + | Address | Unknown | + + + | Phone | Unavailable | + + + Support + + +---------+ + | Name | Relationship | Address | Phone | + + +---------+ + | Alexandria Dixon | ECON | Unknown | | + + +---------+ + Care Team Providers + +------+ + | Care Orderlies Teacher Name | Role | Phone | + +------+ + | No Pcp Per Patient | PCP | Unavailable | + +------+ + Encounter Details +--------+ + + + + | Date | Type | Department | Care Team | Description | +--------+ + + + + | 04/21/ | Results | Neurosurgery [address] | [address], | | | 2005 | Only | [address] | [address] | | | | | [address] Mailcode:OP14B | [place], [place] | | | | | [facility] | [address] | | | | | [place], [place] | | | | | | [address] | | | | | | [phone] | | | +--------+ + + + [...] Rd | | | | | | [place], [place] | | | | | | [address] | | | | | | [phone] | | | | | | | | +--------+---------+ + + + + +---------+--------+ + + | Name | Type | Priori | Associated Diagnoses | Date/Time | | | | ty | | | + +---------+--------+ + + | MRI BRAIN WWO | Imaging | Routin | | 04/21/2006 9:11 AM | | CONTRAST | | e | | PDT | + +---------+--------+ + + documented as of this encounter Visit Diagnoses Not on filedocumented in this encounter"
--- OUTSIDE RECORDS SUMMARY | ~2019-07-14 | XMS | Encounter Summary ---
Demographics + + + | Address | [address] | | | [place] [address] | + + + | Home Phone [...] + + + | Author | [place] [employer] [facility] | + + + | Organization | [facility] | + + + | Address | Unknown | + + + | Phone | Unavailable | + + + Support + + +---------+ + | Name | Relationship | Address | Phone | + + +---------+ + | Alexandria Dixon | ECON | Unknown | | + + +---------+ + Care Team Providers + +------+ + | Care Plate Printer Name | Role | Phone | + [...] Refill Request | | 2006 | | [facility] [address] | [place], | | | | | [place] Mailcode: CH8N | DNP,TRAFFIC SERGEANT,[place] [address] | | | | | [facility] | [address] [place], | | | | | and [facility], | [place] [address] | | | | | [facility] | [phone] | | | | | Floor [place], [place] | | | | | | [address] | | | | | | [phone] | | | +--------+--------+ + + + [...] Rd | | | | | | [place], [place] | | | | | | [address] | | | | | | [phone] | | | | | | | | +--------+---------+ + + + documented as of this encounter Visit Diagnoses Not on filedocumented in this encounter"
--- OUTSIDE RECORDS SUMMARY | ~2019-07-14 | XMS | Encounter Summary ---
Demographics + + + | Address | [address] | | | [place] [address] | + + + | Home Phone [...] + + | Author | [place] [employer] [facility] | + + + | Organization | [facility] | + + + | Address | Unknown | + + + | Phone | Unavailable | + + + Support + + +---------+ + | Name | Relationship | Address | Phone | + + +---------+ + | Alexandria Dixon | ECON | Unknown | | + + +---------+ + Care Team Providers + +------+ + | Care Ladle Repairman Name | Role | Phone | + +------+ + | Jinny Bergeron MD | PCP | | + +------+ + Encounter Details +--------+------+ + + + | Date | Type | Department | Care Team | Description | +--------+------+ + + + | 06/02/ | Lab | Laboratory at [facility] | | 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 | | [address] | | ([facility]); 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[place], [place]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 | | | | [address] | | ([facility]); 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..] + | [facility] | [address] | [place] [address] | | | [place] | | | [...] - | | | | | | [place] | | + +--------+ + + + + + | Specimen | + + | Blood - Blood | + + + + + + + | Performing | Address | City/State/Zipcode | Phone Number | | Organization | | | | + + + + + | [facility] - | [address] | [place] [address] | | | [place] | | | | + + + [...] + + | Test now performed at [facility]. New method effective 06/22/13. | [facility] | | | LABORATORY | | | SERVICES, CORE | + + + + + + + + | Performing | Address | City/State/Zipcode | Phone Number | | Organization | | | | + + + + + | [facility] | [address] | [place] [address] | | | SERVICES, CORE | PARK [...] | | | LABORATORY | | | [place] | | | SERVICES, | | | [...] | + + + + + | [facility] | [address] | [place] [address] | | | [address]Y [address]ANK[address] | KIMO [...]
--- OUTSIDE RECORDS SUMMARY | ~2019-07-14 | XMS | Encounter Summary ---
Demographics + + + | Address | [address] | | | [place] [address] | + + + | Home Phone [...] + + | Author | [place] [employer] [facility] | + + + | Organization | [facility] | [...] Team Providers + +------+ + | Care Wash Operator Name | Role | Phone | + +------+ + | Priscilla Ramírez PA-C | PCP | | + +------+ + Encounter Details +--------+ + + + + | Date | Type | Department | Care Team | Description | +--------+ + + + + | 10/31/ | Ancillary | Registration [address] | [address], | | | 2005 | Registratio | [address] | [address] | | | | n | [address] Mailcode: [id number] | [place], [place] | | | | | [place], [place] | [address] | | | | | [address] | | | | | | [phone] | | | +--------+ + + + [...] | | 2019 | Visit | | [address] | | | | | | [address] | | | | | | [place] | | | | | | [address] | | | | | | [phone] | | | | | | | | +--------+---------+ + + + documented as of this encounter Visit Diagnoses Not on filedocumented in this encounter"
--- OUTSIDE RECORDS SUMMARY | ~2019-07-14 | XMS | Encounter Summary ---
Demographics + + + | Address | [address] | | | [place] [address] | + + + | Home Phone | | + + + | Preferred Language | Unknown | + + + | Marital Status | Single | + + + | Advent Affiliation | Unknown | + + + | Race | Unknown | + + + | Ethnic Group | Unknown | + + + Author + + + | Author | [facility] | | | and [place] | + + + | Organization | [facility] | | | and [...] Team Providers + +------+ + | Care Experimental Aircraft Mechanic Name | Role | Phone | [...] | Specialty | Otolaryngolog | Diagnoses | [place], | Moises, Mckay | | | Services | y | Nasal | BRETT Schneider | MD Josef [address] | | | Required | | congestion | [address] | [address] | | | | | | St [place] | [address] | | | | | | [place], [place] | [place], | | | | | | [address] | [place] [address] | | | | | | Phone: | Phone: | | | | | | [phone] | [phone] | | | | | | Fax: | Fax: | | | | | | [phone] | [phone] | +--------+ + + + + + Reason for Visit + + + | Reason | Comments | + + + | CPAP Follow Up | | + + + Encounter Details +--------+---------+ + + + | Date | Type | Department | Care Team | Description | +--------+---------+ + + + | 02/17/ | Office | [facility] | Sumanth Champion PA | MALLIKA on CPAP (Primary | | 2016 | Visit | SLEEP DISORDER [address] | [address] | Dx); Nasal | | | | [address] [place] | [place], [place] | congestion | | | | [place] [address] | [address] | | | | | [phone] | | | +--------+---------+ + + + [...] + + + | Blood Pressure | 134/76 | 02/18/2016 2:54 PM | | | | | PDT | | + + + + + | Pulse | 82 | 02/18/2016 2:54 PM | | | | | PDT | | + + + + + | Temperature | - | - | | + + + + + | Respiratory Rate | 16 | 02/18/2016 2:54 PM | | | | | PDT | | + + + + + | Oxygen Saturation | 96% | 02/18/2016 2:54 PM | | | | | PDT | | + + + + + | Inhaled Oxygen | - | - | | | Concentration | | | | + + + + + | Weight | 123.7 kg (272 lb | 02/18/2016 2:54 PM | | | | 12.8 oz) | PDT | | + + + + + | Height | - | - | | + + + + + | Body Mass Index | 41.48 | 11/22/2015 3:33 PM | | | | | PDT | | + + + + + documented in this encounter Progress Notes Sumanth Champion PA - 02/18/2016 2:53 PM PDT Subjective: Patient ID: Amairani Ulloa is a 35 y.o. male. HPI last office visit was: 08/20/2015 date of polysomnography: 12/10/2006 AHI: 38.9 O2%: 75% with 19.7 minutes below 88% Machine type: ResMed S9 with nasal mask obtained from: [facility] [place] pressure: 12-18 cm Median: 12.0 cm 95%: 12.8 cm maximum: 13.2 cm Nights using CPAP: 229/369 145/181 137/188 122/182 % of nights >4 hours: 28% 59% 55% 45% average usage (all nights): 2:29 3:55 3:40 3:13 average usage (nights used): 4:00 4:54 5:03 4:49 AHI: 0.3 Shai comes in for CPAP compliance. He has a history of struggling with wearing his CPAP co nsistently and with wearing it for the duration of his sleep. This has continued. He says his biggest challenge recently has been with nasal congestion. He has tried OTC nasal spray s, but they have only been moderately helpful. We discussed the risk of rebound congestion when using these more than 3 consecutive nights. He says he has only tried them for 1 or 2 nights. He has also tried increasing his humidity on his CPAP, but this did not improve his congestion and he had problems with condensation. He is interested in seeing an ENT specia list. He continues to feel that his work schedule is his main challenge with using his CPAP, but he has a difficult time remembering to wear his CPAP. His girlfriend continues to need to r emind him to wear it. His dogs sleeping in the bed with him continues to be a significant d istraction for them both. He says his dogs help him unwind, but they cause her allergies to worsen. It also doesn't allow them time together. He does not get enough sleep at night, but says he falls asleep during the day at times (likely more than he thinks). He has a etta y busy work schedule that does not allow him enough time at home to get enough sleep. He ty pically tries to make up for it on the weekends. We again discussed in great detail the fac t that his girlfriend is very concerned about his health and is continually urging him to us e his CPAP. He has a history of two AMI's and is taking metformin for diabetes. He is star ting to notice that he doesn't function as well on low amounts of sleep and he is starting t o see the health implications of not sleeping well. She seems much more motivated to correc t this than he does. I have discussed the download in detail. This shows that his sleep apnea is well controlle d, with an AHI of 0.3. It also shows that his leaks are well controlled. BP 134/76 mmHg | Pulse 82 | Resp 16 | Wt 123.741 kg (272 lb 12.8 oz) | SpO2 96% Review of Systems Objective: Physical Exam Assessment: Problem #1: OBSTRUCTIVE SLEEP APNEA ([id number]-R82.33) This is well controlled with CPAP. He continues to struggle with wearing his CPAP consiste ntly and with wearing it for the duration of the night. Problem #2: NASAL CONGESTION (ICD R09.81) He is often sleeping without his CPAP because of his congestion. Plan: 1. He is to continue with CPAP indefinitely. 2. I have recommended that he continue to work toward wearing his CPAP 100% of the time he is asleep. 3. I have also recommended that he try to get more hours of sleep during the week and try to keep a regular sleep schedule. 4. We have referred him to ENT for evaluation for his nasal congestion. I will follow up again in 6 months, sooner prn. Fifteen minutes were spent nujj-db-visk, w ith the majority of time spent in counseling. [...] + + +--------+ + + | * [facility] | Outpatient | Routin | Nasal congestion | Ordered: 02/18/2016 | | Otolaryngology - AMB | Referral | e | | | | Referral | | | | | + + +--------+ + + documented as of this encounter Visit Diagnoses + + | Diagnosis | + + | MALLIKA on CPAP - Primary Obstructive sleep apnea (adult) (pediatric) | + + | Nasal congestion Other diseases of nasal cavity and sinuses | + + documented in this encounter"
--- OUTSIDE RECORDS SUMMARY | ~2019-07-14 | XMS | Encounter Summary ---
Demographics + + + | Address | [address] | | | [place] [address] | + + + | Home Phone [...] + + + | Author | [facility] | + + + | Organization | [facility] | + + + | Address | Unknown | + + + | Phone | Unavailable | + + + Support + + +---------+ + | Name | Relationship | Address | Phone | + + +---------+ + | Alexandria Dixon | ECON | Unknown | | + + +---------+ + Care Team Providers + +------+ + | Care Structural Shop Helper Name | Role | Phone | [...] Request | | 2013 | | [facility] [address] | [place], | | | | | [place] Mailcode: [id number] | DNP,GROUP PRACTICE PEDIATRICIAN,[place] [address] | | | | | [facility] | [address] [place], | | | | | and Healing, | [place] [address] | | | | | [address] | [phone] | | | | | [place], [place] | | | | | | [address] | | | | | | [phone] | | | +--------+--------+ + + + [...] Rd | | | | | | [place], [place] | | | | | | [address] | | | | | | [phone] | | | | | | | [...]
--- OUTSIDE RECORDS SUMMARY | ~2019-07-14 | XMS | Clinical Summary ---
Demographics + + + | Address | [address] | | | [place] [address] | + + + | Home Phone | | + + + | Preferred Language | Unknown | + + + | Marital Status | Single | + + + | Shinto Affiliation | Unknown | + + + | Race | Unknown | + + + | Ethnic Group | Unknown | + + + Author + + + | Author | [facility] (Historical as of | | | 03-26-19) | + + + | Organization | [facility] (Historical as of | | | 03-26-19) | + + + | Address | Unknown | + + + | Phone | Unavailable | + + + Support + + + + + | Name | Relationship | Address | Phone | + + + + + | Alexandria Dixon | ECON | [address] | | | | | [place] | | | | | [address] | | + + + + + | Abel Barajas | ECON | Unknown | | + + + + + | Sofia Reyes | ECON | Unknown | | + + + + + Care Team Providers + +------+ + | Care Machine Cementer Name | Role | Phone | [...] | Last Assessment & Plan: 2V-CAD, Hx ID, Hx PCI/stent, LVEF | | 60-65%. 36yo M, known to have coronary disease, distant | | infarction, angioplasty and stenting. 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 He going to follow up | | with [facility] Aug 14. He also had cath report prior to procedure | | which had shown 2 vessel coronary artery disease with moderate | | disease to that proximal to mid LAD, stent to left CX, | | chronically occluded RCA with ihvz-fh-joqeg collaterals. | | Suggestion had been for [...] | | circumflex, chronically occluded RCA with muks-pn-vixxm | | collaterals. Suggestion for surgery: saphenous [...] Assessment & Plan: Pituitary adenoma, followed by [facility], | | associated with hypogonadism, hypothyroidism, diabetes insipidus, | | and adrenal insufficiency. On replacement therapy.MRI-brain, | | 07/13/2151 ([facility]): FINDINGS: Sella and parasellar: There is [...] | | + +--------+ +------+-------+ + | [facility] | YELLOW | [id number] | | | | | PLANS | [place] | | | | | + +--------+ +------+-------+ + | MEDICAID | [place] | [id number] | | | [address] | | | N | | | | [place] | | | [place] | | | | [address] | | | [employer] | | | | | + +--------+ [...] | Self [birth year] Home: | [address] | | | al/Fam | | 1979 | [phone] | [place] | | | luli | | | [phone] | [phone] | + +--------+ +--------+ + +
--- OUTSIDE RECORDS SUMMARY | ~2019-07-14 | XMS | Encounter Summary ---
Demographics + + + | Address | [address] | | | [place] [address] | + + + | Home Phone [...] + + | Author | [facility] | + + + | Organization | [facility] [...] Team Providers + +------+ + | Care Artist Consultant Name | Role | Phone | [...] | n | Rd Mailcode: [id number] | [facility] | | | | | [place], [place] | [place], [place] | | | | | [address] | [address] | | | | | [phone] | [phone] | | | | | | | [...] Rd | | | | | | [place], [place] | | | | | | [address] | | | | | | [phone] | | | | | | | | +--------+---------+ + + + documented as of this encounter Visit Diagnoses Not on filedocumented in this encounter"
--- OUTSIDE RECORDS SUMMARY | ~2019-07-14 | XMS | Encounter Summary ---
Demographics + + + | Address | [address] | | | [place] [address] | + + + | Home Phone | | + + + | Preferred Language | Unknown | + + + | Marital Status | Single | + + + | Sikh Affiliation | Unknown | + + + | Race | Unknown | + + + | Ethnic Group | Unknown | + + + Author + + + | Author | [facility] | | | and [place] | + + + | Organization | [facility] | | | and [...] | | | BMI of | | [place], | | | | | 45.0-49.9, | | [place] [address] | | | | | adult (HCC) | | Phone: | | | | | Weight | | [phone] | | | | | loss, | | Fax: | | | | | non-intentio | | [phone] | | | | | nal | [...] + + | 07/25/ | Hospital | [facility] | Jorge Lopez MD | Abnormal weight loss | | 2015 | Encounter | [facility] OP | [address] | (Primary Dx); | | | | [address] | [place], [place] | Family history of | | | | [place], [place] | [address] | esophageal cancer | | | | [address] | [phone] | | | | | [phone] | | | +--------+ + + + [...] the physician who did your procedure at [phone] if you have any questions or experience any of the following: ? Increasing abdominal pain, nausea, or vomiting. ? Chills and fever over 101F. ? New abdominal swelling or bloating. ? Signs of rectal bleeding (black or red stool). If you cannot get a hold of your physician, then [facility] [phone] . If necessary, report to the Emergency Department at [facility]. Quit smoking: If you smoke or have [...] [place] | | | | | | [address] | | | | | | | [...] adult | | | | | | ([facility]) Weight loss, | | | | | [...] 07/25/2015 | PROVATION | | 12:12 PMMRN: [id number] #: [id number] of : | | | 1980Admit Type: AmbulatoryAge: 35Room: [facility]Gender: MaleNote | | | Status: FinalizedAttending MD: Jorge Lopez, [facility]: | | | Upper GI endoscopyIndications: Screening | | | procedureProviders: Jorge Lopez MD, Vida Nelson | | | PAIGE Burnette, Priscilla Jimenez, | | | Elevator Constructor Helper, Inder Espinoza MD (Anesthesia | | | [...] the | | | anesthesiologist and the automotive tire technician in the pre-procedure area in the [...] PMScope Out: 12:28:52 PM | | | [facility], [address] [place] [address] | | | [id number] | | | symptoms of potential delayed [...] |Scope Out: 12:28:52 PM | | | [facility], [address] [place], [place] | | | [address] | | + + -+ + +---------+ [...] | | esophagus). - Negative for dysplasia. [facility]:C2NR GROSS | | | DESCRIPTION: The specimen [...] | fragments, 0.15-0.3 cm, all into (B1). yt:[facility] PERFORMING | | | LABORATORY: Tissue processing and slide preparation were performed by | | | [facility], [address], [place] [address] | | | (Automatic Silk Screen Printer: Balta Pack M.D. CLIA#: [id number]). | | | Professional interpretation was performed by [facility] | | | [facility], [address] [place] [address], [place], | | | [place] [address] (Automatic Silk Screen Printer: Nitin Avina M.D.; CLIA#: | | | [id number]). Diagnostician: Nitin Avina MD Pathologist | | [...]
--- OUTSIDE RECORDS SUMMARY | ~2019-07-14 | XMS | Encounter Summary ---
Demographics + + + | Address | [address] | | | [place] [address] | + + + | Home Phone | | + + + | Preferred Language | Unknown | + + + | Marital Status | Single | + + + | Sikh Affiliation | Unknown | + + + | Race | Unknown | + + + | Ethnic Group | Unknown | + + + Author + + + | Author | [facility] | | | and [place] | + + + | Organization | [facility] | | | and [...] Team Providers + +------+ + | Care Furniture Removalist'S Assistant Name | Role | Phone | [...] | Sumanth Champion | | | | Thimble Press Operator / | Obstructive | Bren H, | BRETT Gracia [address] | | | | Sleep | sleep apnea | [address] | | | | Medicine | (adult) | [place] | [place], | | | | | (pediatric) | [place] | [place] [address] | | | | | [address] | [address] | Phone: | | | | | EQUIP/COMPLI | [place], | [phone] | | | | | ANCE | [place] | Fax: | | | | | Procedures | [address] | [phone] | | | | | OFFICE VISIT | Phone: | | | | | | EXTENDED | [phone] | | | | | | | Fax: | | | | | | | [phone] | | +--------+--------+ + + + + Encounter Details +--------+---------+ + + + | Date | Type | Department | Care Team | Description | +--------+---------+ + + + | 09/28/ | Office | [facility] | Sumanth Champion PA | MALLIKA on CPAP (Primary | | 2019 | Visit | SLEEP DISORDER [address] | [address] | Dx) | | | | [address] [place] | [place] | | | | | [place] [address] | [address] | | | | | [phone] | | | +--------+---------+ + + + [...] Progress Notes Sumanth Champion PA - 09/28/2018 2:30 PM PST Subjective: Patient ID: Amairani Ulloa is a 38 y.o. male. HPI last office visit: 07/19/2018 date of polysomnography: 12/10/2006 AHI: 38.9 O2%: 75% with 19.7 minutes below 88% Machine type: ResMed AirSense 10. Mask type: nasal mask DME: [facility] [place] pressure: 12-18 cm Median: 12.5 cm 95%: [...] Exam Assessment: Problem #1: OBSTRUCTIVE SLEEP APNEA ([id number]-U68.33) This is controlled with CPAP. He is [...] appro priate paperwork. Fifteen minutes were spent [id number]-[id number], with the majority of time spent in counseling. Sumanth Champion PA-C Cc: BRETT Orr documented in this enco unter Plan of Treatment +--------+---------+ + + + | Date | Type | Specialty | Care Team | Description | +--------+---------+ + + + | 11/21/ | Office | Sleep Medicine | Sumanth Champion PA | | | 2020 | Visit | | [address] | | | | | | [place] | | | | | | [address] | | | | | | | | +--------+---------+ + + + documented as of this encounter Visit Diagnoses + + | Diagnosis | + + | MALLIKA on CPAP - Primary Obstructive sleep apnea (adult) (pediatric) | + + documented in this encounter
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
--- OUTSIDE RECORDS SUMMARY | ~2019-07-14 | XMS | Encounter Summary ---
Demographics + + + | Address | [address] | | | [place] [address] | + + + | Home Phone [...] + + + | Author | [place] [employer] [facility] | + + + | Organization | [facility] | + + + | Address | Unknown | + + + | Phone | Unavailable | + + + Support + + +---------+ + | Name | Relationship | Address | Phone | + + +---------+ + | Alexandria Dixon | ECON | Unknown | | + + +---------+ + Care Team Providers + +------+ + | Care Language Path Name | Role | Phone | + [...] Refill Request | | 2011 | | [facility] [address] | [place], | | | | | [place] Mailcode: CH8N | DNP,HAND STRAIGHTENER,[place] [address] | | | | | [facility] | [address] [place], | | | | | and [facility], | [place] [address] | | | | | Building [address] | [phone] | | | | | [place], [place] | | | | | | [address] | | | | | | [phone] | | | +--------+--------+ + + + [...] | | 2019 | Visit | | [address] | | | | | | [address] | | | | | | [place], [place] | | | | | | [address] | | | | | | [phone] | | | | | | | | +--------+---------+ + + + documented as of this encounter Visit Diagnoses Not on filedocumented in this encounter"
--- OUTSIDE RECORDS SUMMARY | ~2019-07-14 | XMS | Encounter Summary ---
Demographics + + + | Address | [address] | | | [place] [address] | + + + | Home Phone [...] + + + | Author | [place] [employer] [facility] | + + + | Organization | [facility] [...] Team Providers + +------+ + | Care Contract Consultant Name | Role | Phone | + +------+ + | No Pcp Per Patient | PCP | Unavailable | + +------+ + Encounter Details +--------+------+ + + + | Date | Type | Department | Care Team | Description | +--------+------+ + + + | 03/28/ | Lab | Laboratory at [facility] | | 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 ([facility]); | | | | [place], [place] | | Pituitary adenoma | | | | [address] | | ([facility]); Diabetes | | | | [phone] | | insipidus ([facility]); | | | | | [...] | | 2019 | Visit | | [address] | | | | | | [address] | | | | | | [place], [place] | | | | | | [address] | | | | | | [phone] | | | | | | | | +--------+---------+ + + + documented as of this encounter Procedures + +--------+ + + + | Procedure Name | Priori | Date/Time | Associated Diagnosis | Comments | | | ty | | | | + +--------+ + + + | VITAMIN D, | Routin | 03/28/2011 | Growth hormone | Results for this | | 25-HYDROXY, SERUM | e | 1:45 PM | deficiency (HCC) | procedure are in the | | | | PDT | Pituitary adenoma | results section. 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) | | | | | | Hypogonadism male | | | | | | Hypothyroid Adrenal | | | | | | insufficiency (HCC) | | + +--------+ + + + | BASIC METABOLIC SET | Routin | 03/28/2011 | Growth hormone | Results for this | | (NA, K, CL, TCO2, | e | 1:45 PM | deficiency (HCC) | procedure are in the | | BUN, CR, GLU, CA) | | PDT | Pituitary adenoma | results section. 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) | | | | | | Hypogonadism male | | | | | | Hypothyroid Adrenal | | | | | | insufficiency (HCC) | | + +--------+ + + + | INSULIN GROWTH | Routin | 03/28/2011 | Growth hormone | Results for this | | FACTOR-1, SERUM | e | 1:45 PM | deficiency (HCC) | procedure are in the | | | | PDT | Pituitary adenoma | results section. 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) | | | | | | Hypogonadism male | | | | | | Hypothyroid Adrenal | | | | | | insufficiency (HCC) | | + +--------+ + + + | FREE T4 | Routin | 03/28/2011 | Growth hormone | Results for this | | | e | 1:45 PM | deficiency (HCC) | procedure are in the | | | | PDT | Pituitary adenoma | results section. 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) | | | | | | Hypogonadism male | | | | | | Hypothyroid Adrenal | | | | | | insufficiency (HCC) | | + +--------+ + + + | PROLACTIN | Routin | 03/28/2011 | Growth hormone | Results for this | | | e | 1:45 PM | deficiency (HCC) | procedure are in the | | | | PDT | Pituitary adenoma | results section. 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) | | | | | | Hypogonadism male | | | | | | Hypothyroid Adrenal | | | | | | insufficiency (HCC) | | + +--------+ + + + | TSH | Routin | 03/28/2011 | Growth hormone | Results for this | | | e | 1:45 PM | deficiency (HCC) | procedure are in the | | | | PDT | Pituitary adenoma | results section. 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) | | | | | | Hypogonadism male | | | | | | Hypothyroid Adrenal | | | | | | insufficiency (HCC) | | + +--------+ + + + | TESTOSTERONE, SERUM | Routin | 03/28/2011 | Growth hormone | Results for this | | | e | 1:45 PM | deficiency (HCC) | procedure are in the | | | | PDT | Pituitary adenoma | results section. 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) | | | | | | Hypogonadism male | | | | | | Hypothyroid Adrenal | | | | | | insufficiency (HCC) | | + +--------+ + + + documented in this encounter Results VITAMIN D, 25-HYDROXY, SERUM (03/28/2011 1:45 PM PDT) + + + + + [...] + + + + + | [facility] | [address] | [place] [address] | | | PATHOLOGY | [address] | | | + + + + + TSH (03/28/2011 1:45 PM PDT) + +-------+ + + + | Component | Value | Ref Range | Performed | Pathologist | | | | | At | Signature | + +-------+ + + + | TSH | 0.63 | 0.34 - 5.60 | [facility] | [...] Way Lab) | [facility] | | [facility] [place] [address] | REGIONAL | | [place] [address] | LABORATORY | + + + + + + + + | Performing | Address | City/State/Zipcode | Phone Number | | Organization | | | | + + + + + | [facility] | [address] | [place] [address] | | | LABORATORY | | | | + + + + + PROLACTIN, SERUM (03/28/2011 1:45 PM PDT) + +-------+ + + + [...] [facility] | [facility] | | [facility] [address] | REGIONAL | | [place] [address] | LABORATORY | + + + + + + + + | Performing | Address | City/State/Zipcode | Phone Number | | Organization | | | | + + + + + | [facility] | [address] | [place] [address] | | | LABORATORY | | | | + + + + + TESTOSTERONE, SERUM (03/28/2011 1:45 PM PDT) + +--------+ + + + | Component | Value | Ref Range | Performed | Pathologist | | | | | At | Signature | + +--------+ + + + | TESTOSTERON | 24 (L) | 175 - 781 ng/dl | [facility] | | | E, SERUM | | | REGIONAL | | | | | | LABORATORY | | + +--------+ + + + + + | Specimen | + + | Blood - Blood | + + + + + | Narrative | Performed At | + + + | [facility] | [facility] | | [place] [address] [facility] | REGIONAL | | [place] [address] | LABORATORY | + + + + + + + + | Performing | Address | City/State/Zipcode | Phone Number | | Organization | | | | + + + + + | [facility] | [address] | [place] [address] | | | LABORATORY | | | | + + + + + INSULIN GROWTH FACTOR-1, SERUM (03/28/2011 1:45 PM PDT) + +--------+ + + + | Component | Value | Ref Range | Performed | Pathologist | | | | | At | Signature | + +--------+ + + + | IGF-1 | 53 (L) | 115 - 307 ng/mL | [facility] | | | | | | REGIONAL | | | | | | LABORATORY | | + +--------+ + + + + + | Specimen | + + | Blood - Blood | + + + + + | Narrative | Performed At | + + + | [facility] | [facility] | | [place] [address] | REGIONAL | | [place] [address] | LABORATORY | + + + + + + + + | Performing | Address | City/State/Zipcode | Phone Number | | Organization | | | | + + + + + | [facility] | [address] | [place] [address] | | | LABORATORY | | | | + + + + + FREE T4, SERUM (03/28/2011 1:45 PM PDT) + +-------+ + + + | Component | Value | Ref Range | Performed | Pathologist | | | | | At | Signature | + +-------+ + + + | FREE T4, | 1.1 | 0.6 - 1.2 ng/dL | [facility] | | | SERUM | | | REGIONAL | | | | | | LABORATORY | | + +-------+ + + + + + | Specimen | + + | Blood - Blood | + + + + + | Narrative | Performed At | + + + | [email or web address] | [facility] | | [place] [address] [facility] | REGIONAL | | [place] [address] | LABORATORY | + + + + + + + + | Performing | Address | City/State/Zipcode | Phone Number | | Organization | | | | + + + + + | [facility] | [address] | [place] [address] | | | LABORATORY | | | | + + + + + BASIC METABOLIC SET (NA, K, CL, TCO2, BUN, CR, GLU, CA) (03/28/2011 1:45 PM PDT) + + + + + + | Component | Value | Ref Range | Performed | Pathologist | | | | | At | Signature | + + + + + + | GLUCOSE, | 125 (H) | 60 - 99 mg/dL | [...] + + + + | CREATININE | 0.70 | 0.70 - 1.30 | [facility] | | | PLASMA | | mg/dL | DEPARTMENT | | | (LAB) | | | OF | | | | | | PATHOLOGY | | + + + + + + | SODIUM, | 139 | 134 - 143 | [facility] | [...] + + + + | CALCIUM, | 8.5 (L) | 8.6 - 10.2 | [facility] | | | PLASMA | | mg/dL | DEPARTMENT | | | (LAB) | | | OF | | | | | | PATHOLOGY | | + + + + + + | EGFR | > 60 | >60 mL/min | [facility] | | | - | | | DEPARTMENT | | | [place] | | | OF | | | [...] + + + | [facility] | [address] | [place] [address] | | | PATHOLOGY | [address] | | | + + + + + documented in this encounter Visit Diagnoses + + | Diagnosis | + + | Growth hormone deficiency (HCC) Pituitary dwarfism | + + | Pituitary adenoma (HCC) Benign neoplasm of pituitary gland and craniopharyngeal duct | | (pouch) | + + | Diabetes insipidus (HCC) Diabetes insipidus | + + | Hypogonadism male Other testicular hypofunction | + + | Hypothyroid Unspecified hypothyroidism | + + | Adrenal insufficiency (HCC) Glucocorticoid deficiency | + + documented in this encounter"
--- OUTSIDE RECORDS SUMMARY | ~2019-07-14 | XMS | Encounter Summary ---
Demographics + + + | Address | [address] | | | [place] [address] | + + + | Home Phone [...] + + + | Author | [place] [employer] [facility] | + + + | Organization | [facility] [...] Team Providers + +------+ + | Care Disaster Recovery Coordinator Name | Role | Phone | [...] n | Abd[address]aye Mailcode: [id number] | [place], [place] | | | | | [place], [place] | [address] | | | | | [address] | | | | | | [phone] | | | +--------+ + + + [...] | | 2019 | Visit | | [address] | | | | | | [address] | | | | | | [place] | | | | | | [address] | | | | | | [phone] | | | | | | | | +--------+---------+ + + + documented as of this encounter Visit Diagnoses Not on filedocumented in this encounter"
--- OUTSIDE RECORDS SUMMARY | ~2019-07-14 | XMS | Encounter Summary ---
Demographics + + + | Address | [address] | | | [place] [address] | + + + | Home Phone | | + + + | Preferred Language | Unknown | + + + | Marital Status | Single | + + + | Presybeterian Affiliation | Unknown | + + + | Race | Unknown | + + + | Ethnic Group | Unknown | + + + Author + + + | Author | [facility] | | | and [place] | + + + | Organization | [facility] | | | and [...] Team Providers + +------+ + | Care Ovens Supervisor Name | Role | Phone | + +------+ + PCP | Unavailable | + +------+ + Encounter Details +--------+ + + + + | Date | Type | Department | Care Team | Description | +--------+ + + + + | 08/20/ | Hospital | [facility] | Shravan Montanez, | | | 2006 | Encounter | MED CTR GENERIC IP | MD [address] | | | | | CONV DEPT [address] | [place], [place] | | | | | [place], | [address] | | | | | [place] [address] | | | | | | [phone] | | | +--------+ + + + [...] 2019 | Visit | | [address] | | | | | | [place] | | | | | | [address] | | | | | | | | +--------+---------+ + + + documented as of this encounter Visit Diagnoses Not on filedocumented in this encounter"
--- OUTSIDE RECORDS SUMMARY | ~2019-07-14 | XMS | Encounter Summary ---
Demographics + + + | Address | [address] | | | [place] [address] | + + + | Home Phone [...] + + + | Author | [place] [employer] [facility] | + + + | Organization | [facility] | + [...] Team Providers + +------+ + | Care Vice President Biostatistics Name | Role | Phone | + [...] | Chest pain, | [place], | [address] | | | | | unspecified | [address] | [address] | | | | | type | [address] | [address] | | | | | Coronary | [address] | Mailcode: | | | | | artery | [facility], [place] | [address] | | | | | disease of | [address] | [address] | | | | | [place] | Phone: | [place], [place] | | | | | artery of | [phone] | [address] | | | | | [place] heart | Fax: | Phone: | | | | | with stable | [phone] | [phone] | | | | | angina | | Fax: | | | | | pectoris | | [phone] | | | | | (HCC) | [...] | | | | | | ID HT MUSCLE | | | | | [...] | | | | | artery | [place], [place] | [address] | | | | | disease of | [address] | [facility] | | | | | [place] | Phone: | [place], [place] | | | | | artery of | [phone] | [address] | | | | | [place] heart | Fax: | Phone: | | | | | with stable | [phone] | [phone] | | | | | angina | | Fax: | | | | | pectoris | | [phone] | | | | | (HCC) | [...] | | | | | | ID HT MUSCLE | | | | | [...] | | 2018 | Encounter | at [facility] [address] | [address] | | | | | [address] | [facility] [place] | | | | | Mailcode: [address] | [place], [place] | | | | | [facility] | [address] | | | | | [place], [place] | [phone] | | | | | [address] | | | | | | [phone] | | | +--------+ + + + [...] | | | | | | [place], [place] | | | | | | [address] | | | | | | [phone] | | | | | | | [...] WITH EXERCISE | | | disease of [place] | | | | | | artery of [place] | | | | | | heart with stable | | | | | | angina pectoris | | | | | | ([facility]) | | + +--------+ + + + [...] + + | Coronary artery disease of [place] artery of [place] heart with stable angina pectoris | | (HCC) | + + documented in this encounter"
--- OUTSIDE RECORDS SUMMARY | ~2019-07-14 | XMS | Encounter Summary ---
Demographics + + + | Address | [address] | | | [place] [address] | + + + | Home Phone [...] + + + | Author | [place] [employer] [facility] | + + + | Organization | [facility] [...] Team Providers + +------+ + | Care Rope Rider Name | Role | Phone | [...] | | | | leaflet | DNP,MANAGER CONSTRUCTION,[place] | [address] | | | | | abnormality | [address] | [address] | | | | | Procedures | Ave | [place] | | | | | CONSULT TO | [place], [place] | | | | | SURGERY - | [address] | [address] | | | | | CARDIOTHORAC | Phone: | Phone: | | | | | IC | [phone] | [phone] | | | | | | Fax: | Fax: | | | | | | [phone] | [phone] | + +--------+ + + + + Encounter Details +--------+ + + + + | Date | Type | Department | Care Team | Description | +--------+ + + + + | 05/30/ | MyChart | Neurosurgery at | Donnie, | RE: Need to talk | | 2016 | Encounter | [facility] [address] | Cathie, | | | | | Ave Mailcode: CH8N | DNP,MANAGER CONSTRUCTION,[place] [address] | | | | | [facility] | [address] [place], | | | | | and Healing, | [place] [address] | | | | | Building [address] | [phone] | | | | | [place], [place] | | | | | | [address] | | | | | | [phone] | | | +--------+ + + + [...] | | | | | | [place], [place] | | | | | | [address] | | | | | | [phone] | | | | | | | | +--------+---------+ + + + documented as of this encounter Visit Diagnoses + + | Diagnosis | + + | Mitral leaflet abnormality - Primary | + + documented in this encounter"
--- OUTSIDE RECORDS SUMMARY | ~2019-07-14 | XMS | Encounter Summary ---
Demographics + + + | Address | [address] | | | [place] [address] | + + + | Home Phone [...] + + | Author | [place] [employer] [facility] | + + + | Organization | [facility] & [facility] | + + + | Address | Unknown | + + + | Phone | Unavailable | + + + Support + + +---------+ + | Name | Relationship | Address | Phone | + + +---------+ + | Alexandria Dixon | ECON | Unknown | | + + +---------+ + Care Team Providers + +------+ + | Care Farm Machinery Engine Mechanic Name | Role | Phone | [...] & | | Epic Dept | MD Jaclyn | | | | Metabolism | | | [address] | | | | | | | [place] | | | | | | | [place], | | | | | | | [place] | | | | | | | [address] | | | | | | | Phone: | | | | | | | [phone] | | | | | | | Fax: | | | | | | | [phone] | +--------+--------+ + + + + Encounter Details +--------+---------+ + + + | Date | Type | Department | Care Team | Description | +--------+---------+ + + + | 03/10/ | Office | Neurosurgery at | Donnie, | Pituitary Adenoma | | 2007 | Visit | [address] | [place], | ([facility]); 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Ave Mailcode: CH8N | DNP,MATHEMATICAL TECHNICIAN,[place] [address] | Hormone Deficiency | | | | [facility] | [address] [place], | ([facility]); 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, | [place] [address] | Insipidus ([facility]); | | | | Building [address] | [phone] | Hypogonadism Male; | | | | [place], [place] | | Hypothyroid; Adrenal | | | | [address]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 ([facility]) | | | | [phone] | | | +--------+---------+ + + + [...] | Blood Pressure | 119/66 | 03/10/2008 12:22 PM | | | | | PDT | | + + + + + | Pulse | 77 | 03/10/2008 12:22 PM | | | | | PDT [...] | 125.6 kg (277 lb) | 03/10/2008 12:22 PM | | | | | PDT | | + + + + + | Height | 172.7 cm (5' 8") | 03/10/2008 12:22 PM | | | | | PDT | | + + + + + | Body Mass Index | 42.12 | 03/10/2008 12:22 PM | | | | | PDT | | + + + + + documented in this encounter Progress Notes [place] - 03/13/2008 7:29 AM PDT Reason for visit. Amairani Tyler returns to pituitary clinic March 10, 2008 for review of pitu itary symptoms and titration of testosterone, Growth hormone and [...] At this visit: Pituitary Symptoms and Complaints: Persistent fatigue Difficulty with weight control and increased weight around midsection Incrased hunger Persistent hand and finger numbness bilaterally. Pt deneis He continues to have headaches although these have improved since previous visit. He notes no breast discharge or discomfort, no abdominal striae or discomfort no diarrhea o r constipation. He denies skin changes, muscle cramping, joint aches or swelling in extremit ies. He note no problems with strenght, memory, concentration or sleep. He deneis anxiety or depression, temperature dysregulation, hot flashes, night sweats or sexual dysfunction. Exact date of onset of symptoms is unknown Review of systems negative other than as stated above. Physical Exam: Blood pressure 119/66, pulse 77, height 1.727 m (5' 8"), weight 125.646 kg (277 lbs). General: A pleasant man who looks stated [...] obesity, no violaceous striae. Breasts: Without tenderness. No gynectomastia. : Deferred. Skin: No hyperpigmentation or dry, sweaty, or oily. No skin tags, thinning of skin or bruising. Extremities: Upper extremities: Without proximal muscle weakness, no carpal tunnel syndrome. No hand enlargement or tremor. Lower extremities: Without edema. Neurologic: Pt is alert and oriented x3, 5/5 motor and sensory throughout. No delayed relaxation phase of the brachial reflex. Labs; LABS BMP, TRACK REPAIR WORKER, IGF-1, TSH, Free T4, LH, FSH, Testosterone, Prolactin pending MRI pending Assessment and discussion: Generally doing better than at last visit. Headaches have improvmed. He is currently studyi ng for some exams and is feeling more stress. He has persistent fatigue but no signs of adre nal insufficiency. He is well controlled on current dose of DDAVP with increased polyuria an d polydipsia particularly prior to evening dose. Pt mother at this visit I answered her que stions to her satisfaction. We discussed the probability that pt will remain panhypopituitar y. Plan: 1. Pituitary functions. 1.1. Adrenal. The patient has a history of adrenal insufficiency. TRACK REPAIR WORKER is pending but no change in hydrocortisone dose is anticipated. 1.2. Thyroid. The patient has been hypothyroid. Free T 4 is pending, however No thyroid neena nge replacement is anticipated to be indicated. 1.3. Gonadal.Testosterone level is pending. Will adjust dose if indicated. Pt has had troub le remembering to apply gel. WIll discuss the possibility of depot testosterone if levels ar e low. 1.4. Growth hormone. IGF-1 level is pending if low increase Growth hormone replacmen dose 1.5. Prolactin. Level pending, however no dopamine agonist therapy is indicated. 1.6. Vasopressin. PT has Diabetes Insipidus. He continues to have appropriate polyuria and Polydipsia prior to eache dose of signs and symptoms of diabetes insipidus. No DDAVP therapy is indicated. 2. Followup.in 12 months with MRI , labs Amairani Ulloa, [id number] Reason for visit: Chief Complaint Patient presents with Follow-up in outpatient clinic Amairani Ulloa is a 27 y.o. male, who presented to Pituitary clinic on 03/10/2008 for a cons ultation and low dose cortrosyn stimulation test. Encounter Diagnoses Code Name Primary? 227.3P Pituitary Adenoma 253.3C Growth Hormone Deficiency 253.5 Diabetes Insipidus 257.2AS Hypogonadism Male 244.9AS Hypothyroid 255.41BB Adrenal Insufficiency Procedure note: In addition to my consultation, I spent a total of 60 minutes of face to face time in this visit of which over 50% was spen t in coordination of this patients care. I performed a one mcg cortrosyn stimulation test t o test for pituitary caused adrenal insufficiency in the light of the patient's pituitary sy mptoms. Risks and benefits of the procedure were discussed with the patient and questions w ere answered. After an IV was placed in the patient's arm, baseline cortisol and ACTH as we ll as other labs were drawn. A dilution of one mcg per cc of cortrosyn was prepared by rec onstituting a 250 mcg vial of lyophylised cortrosyn and injecting this into 250 cc of Norm al Saline. One mcg (or one cc) of Cortrosyn was administered to the patient and a second cortisol was drawn hour later. The IV was then removed and the site dressed. There were no adverse events or effects. I spent 30mins in evaluation of this patient, 60 minutes in dynamic endocrine testing. Anne rudolph visit time was 90 mins of which over 50% was spent in coordination of care CARRINGTON FIELDS NP [facility] [address] [facility] [place] [address] Component Reference Range 03/10/2008 03/10/2008 GLUCOSE (LAB) 60-99 mg/dL 71 BUN 6-20 mg/dL 8 CREATININE,PLASMA 0.70-1.30 mg/dL 0.65 (L) SODIUM (LAB) 134-143 mmol/L 140 POTASSIUM (LAB) 3.4-5.0 mmol/L 3.8 CHLORIDE 97-108 mmol/L 104 TOTAL CO2 23-31 mmol/L 28 CALCIUM (LAB) 8.6-10.2 mg/dL 9.4 CORTISOL, TOTAL SERUM ug/dl 3.1 6.7 TIME Hrs:mins 00:00 00:30 SITE None Given None Given FREE T4 0.6-1.6 ng/dL 1.1 FSH Low: < 19 mIU/mL 2 IGF-1 117-329 ng/mL 173 LUTEINIZING HORMONE Low: < 11 mIU/mL 2 PROLACTIN 3-13 ng/ml 4 TESTOSTERONE (LAB) 175-781 ng/dl 87 (L) TSH 0.34-5.60 uIU/ml 0.04 (L) MR BRAIN WWO CONTRAST: MRI brain with and without contrast-tailored to evaluate the pituitary gland HISTORY: Pituitary adenoma TECHNIQUE: The following sequences were acquired: 1. Sagittal T1 through the pituitary. 2. Coronal T1 and T2 through the pituitary gland. 3. Post gadolinium (20 cc Omniscan intravenously) T1 through the pituitary gland with and without fat suppression. 4. Coronal dynamic series with contrast through the pituitary gland. COMPARISON: MR pituitary 10/31/05 I FINDINGS: The pituitary gland remains at the upper limits of normal for size, unchanged from the prior exam, without a discrete lesion identified. Mucosal thickening is seen in the sphenoid sinuses bilaterally. There is no displacement of the optic chiasm. Pituitary infundibulum is unremarkable. No areas of delayed enhancement are seen on the dynamic series. Survey images through the rest of the brain are otherwise unremarkable. IMPRESSION: 1. Stable MR of the pituitary gland, with the gland size remaining at the upper limits of normal, unchanged, with no discrete lesion/adenoma identified. I have personally viewed this procedure/exam and reviewed this report. STATUS FINAL / Dr. JO WEST Plan: 1. Adrenals. Continue HC 20mg q day 2. GH- no change in dose. 3. Testosterone ? Using daily? RTC for recheck in 6 mths (LS) 4. THryoid no change. 5. MRI in 12 mths (LS) documented in this encounter Plan of Treatment +--------+---------+ + + + | Date | Type | Specialty | Care Team | Description | +--------+---------+ + + + | 08/15/ | Office | Cardiology | Zuleika Hernandez, | | | 2019 | Visit | | [address] | | | | | | [place] | | | | | | [place], [place] | | | | | | [address] | | | | | | [phone] | | | | | | | [...]
--- OUTSIDE RECORDS SUMMARY | ~2019-07-14 | XMS | Encounter Summary ---
Demographics + + + | Address | [address] | | | [place] [address] | + + + | Home Phone [...] + + + | Author | [place] [employer] [facility] | + + + | Organization | [facility] | + [...] Team Providers + +------+ + | Care 6Th Grade Teacher Name | Role | Phone | [...] Hormone | | 2007 | Encounter | [facility] [address] | Cathie | | | | | [place] Mailcode: CH8N | DNP,STOCKKEEPER,[place] [address] | | | | | [facility] | [address] [place], | | | | | and Healing, | [place] [address] | | | | | [place] [address] | [phone] | | | | | [place], [place] | | | | | | [address] | | | | | | [phone] | | | +--------+ + + + [...] Rd | | | | | | [place], [place] | | | | | | [address] | | | | | | [phone] | | | | | | | | +--------+---------+ + + + documented as of this encounter Visit Diagnoses Not on filedocumented in this encounter"
--- OUTSIDE RECORDS SUMMARY | ~2019-07-14 | XMS | Encounter Summary ---
Demographics + + + | Address | [address] | | | [place] [address] | + + + | Home Phone | | + + + | Preferred Language | Unknown | + + + | Marital Status | Single | + + + | Quaker Affiliation | Unknown | + + + | Race | Unknown | + + + | Ethnic Group | Unknown | + + + Author + + + | Author | [facility] | | | and [place] | + + + | Organization | [facility] | | | and [place] [...] Team Providers + +------+ + | Care Company Truck Driver Name | Role | Phone | [...] | | | | | | [place] [facility] | | | | | | | NASAL | | | | | | | [place] | | | | | | [...] | | | | | [address] | [address] [place] | | | | | [place], [place] | [place] [address] | | | | | [address] | | | | | | [phone] | | | | | | | Jaron Martinez, | | | | | | [address] | | | | | | [place] | | | | | | [address] | | | | | | | [...] +----+---+ + + | | 0 | [place] | | | | 9 | 43-degrees | | | | 2 | | | | | 9 | | | +----+---+ + + | | 0 | First | | | | 9 | [address] | | | | 3 | | | | | 3 | | | +----+---+ + + | | 1 | [place] off | | | | 0 | [...] 04/08/16 1200 by | | eral | [id number] catheter system; | Lisa Gomez RN | [...] | Placement Time: 932 (created via | Joavna Schmitt | Jovana Schmitt | | | [...] [place] | | | | | | [address] | | | | | | | [...]
--- OUTSIDE RECORDS SUMMARY | ~2019-07-14 | XMS | Encounter Summary ---
Demographics + + + | Address | [address] | | | [place] [address] | + + + | Home Phone [...] + + + | Author | [employer] [facility] | + + + | Organization | [facility] & [facility] | + + + | Address | Unknown | + + + | Phone | Unavailable | + + + Support + + +---------+ + | Name | Relationship | Address | Phone | + + +---------+ + | Alexandria Dixon | ECON | Unknown | | + + +---------+ + Care Team Providers + +------+ + | Care Print Shop Helper Name | Role | Phone | + +------+ + | No Pcp Per Patient | PCP | Unavailable | + +------+ + Encounter Details +--------+------+ + + + | Date | Type | Department | Care Team | Description | +--------+------+ + + + | 03/28/ | Lab | Laboratory at [facility] | | 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 ([facility]); | | | | [place], [place] | | Pituitary adenoma | | | | [address] | | ([facility]); Diabetes | | | | [phone] | | insipidus ([facility]); | | | | | [...] | | 2019 | Visit | | [address] | | | | | | [address] | | | | | | [place], [place] | | | | | | [address] | | | | | | [phone] | | | | | | | [...] | + + + + + | [facility] DEPARTMENT OF | [address] | [place] [address] | | | PATHOLOGY | [address] [...] | [facility] | | [facility] [place] [address] | REGIONAL | | [place] [address] | LABORATORY | + + + + + + + + | Performing | Address | City/State/Zipcode | Phone Number | | Organization | | | | + + + + + | [facility] | [address] | [place] [address] | | | LABORATORY | | | [...] [place] | [place] | | [place] [address] | REGIONAL | | [place] [address] | LABORATORY | + + + + + + + + | Performing | Address | City/State/Zipcode | Phone Number | | Organization | | | | + + + + + | [facility] | [address] | [place] [address] | | | LABORATORY | | | [...] Lab) [place] | [place] | | [place] [address] [facility] | REGIONAL | | [place] [address] | LABORATORY | + + + + + + + + | Performing | Address | City/State/Zipcode | Phone Number | | Organization | | | | + + + + + | [facility] | [address] | [place] [address] | | | LABORATORY | | | [...] [place] | [place] | | [place] [address] | REGIONAL | | [place] [address] | LABORATORY | + + + + + + + + | Performing | Address | City/State/Zipcode | Phone Number | | Organization | | | | + + + + + | [facility] | [address] | [place] [address] | | | LABORATORY | | | [...] At | + + + | [facility] [place] | [place] | | [place] [address] [address] | REGIONAL | | [place] [address] | LABORATORY | + + + + + + + + | Performing | Address | City/State/Zipcode | Phone Number | | Organization | | | | + + + + + | [facility] | [address] | [place] [address] | | | LABORATORY | | | [...] | | | DEPARTMENT | | | [place] | | | OF | | | [...] + + + + | [facility] | [address] | [place] [address] | | | PATHOLOGY | [address] [...]
--- OUTSIDE RECORDS SUMMARY | ~2019-07-14 | XMS | Encounter Summary ---
Demographics + + + | Address | [address] | | | [place] [address] | + + + | Home Phone [...] + + + | Author | [place] [employer] [facility] | + + + | Organization | [facility] [...] Team Providers + +------+ + | Care Asset Management Coordinator Name | Role | Phone | + +------+ + | Bernardo Pan | PCP | | + +------+ + Encounter Details +--------+ + + + + | Date | Type | Department | Care Team | Description | +--------+ + + + + | 10/16/ | Seed Laboratory Assistant | Cardiothoracic | Evlein Godoy, | Coronary artery | | 2017 | | Surgery at [facility] [address] [place] [address] | disease, angina | | | | [facility] | presence | | | | Rd Mailcode: [address] | [place] | unspecified, | | | | Physician's | [address] | unspecified vessel | | | | [facility], | [phone] | or lesion type, | | | | [place] [address] | | unspecified whether | | | | [phone] | | kluti kaah or | | | | | | [...] | | | | | | [place], [place] | | | | | | [address] | | | | | | [phone] | | | | | | | | +--------+---------+ + + + documented as of this encounter Visit Diagnoses + + | Diagnosis | + + | Coronary artery disease, angina presence unspecified, unspecified vessel or lesion | | type, unspecified whether kluti kaah or transplanted heart - Primary | + + documented in this encounter"
--- OUTSIDE RECORDS SUMMARY | ~2019-07-14 | XMS | Encounter Summary ---
Demographics + + + | Address | [address] | | | [place] [address] | + + + | Home Phone | | + + + | Preferred Language | Unknown | + + + | Marital Status | Single | + + + | Hindu Affiliation | Unknown | + + + | Race | Unknown | + + + | Ethnic Group | Unknown | + + + Author + + + | Author | [facility] | | | and [place] | + + + | Organization | [facility] | | | and [...] Team Providers + +------+ + | Care Brass Burnisher Name | Role | Phone | + [...] + + | 04/09/ | Office | [facility] [place] | Rupert Zafar MD | Deviated nasal | | 2015 | Visit | OTOLARYNGOLOGY [address] | [address] [place] | septum (Primary Dx); | | | | [address] [place] [address] | [address] [place], | Hypertrophy of | | | | [place], [place] | [place] [address] | nasal turbinates | | | | [address] | [phone] | | | | | [phone] | | | +--------+---------+ + + + [...] MD - 04/09/2016 9:57 AM PDT [facility] [address] [facility] [address] OFFICE NOTE RUPERT ZAFAR MD Patient: FAROOQ LEMA Admitting: MR #: [id number] LOC: PT TYPE: Adm Date: 04/09/2016 : [...] 09:57:38 Transcribed on 04/09/2016 22:45:21 by job# [id number] Confirmation #: [id number] cc: JINNY BERGERON MD [facility], Rupert Bahena MD - 04/09/2016 9:55 AM PDTSee dictation # [id number] signed by Rupert Zafar MD at 04/09/2016 [...] [place] | | | | | | [address] | | | | | | | | +--------+---------+ + + + documented as of this encounter Visit Diagnoses + + | Diagnosis | + + | Deviated nasal septum - Primary | + + | Hypertrophy of nasal turbinates | + + documented in this encounter
--- OUTSIDE RECORDS SUMMARY | ~2019-07-14 | XMS | Encounter Summary ---
Demographics + + + | Address | [address] | | | [place] [address] | + + + | Home Phone [...] + + + | Author | [place] [employer] [facility] | + + + | Organization | [facility] [...] Team Providers + +------+ + | Care Package Delivery Driver Name | Role | Phone | + +------+ + | Jinny Bergeron MD | PCP | | + +------+ + Encounter Details +--------+ + + + + | Date | Type | Department | Care Team | Description | +--------+ + + + + | 03/07/ | Documentati | Neurosurgery at | Donnie, | | | 2015 | on | [address] | Cathie | | | | | [place] Mailcode: CH8N | DNP,CASH SHORTAGE INVESTIGATOR,[place] [address] | | | | | [facility] | [address] [place], | | | | | and [place], | [place] [address] | | | | | [place] [address] | [phone] | | | | | [place], [place] | | | | | | [address] | | | | | | [phone] | | | +--------+ + + + [...] Rd | | | | | | [place], [place] | | | | | | [address] | | | | | | [phone] | | | | | | | | +--------+---------+ + + + documented as of this encounter Visit Diagnoses Not on filedocumented in this encounter"
--- OUTSIDE RECORDS SUMMARY | ~2019-07-14 | XMS | Encounter Summary ---
Demographics + + + | Address | [address] | | | [place] [address] | + + + | Home Phone [...] + + + | Author | [place] [employer] [facility] | + + + | Organization | [facility] [...] Providers + +------+ + | Care Line Up Worker Name | Role | Phone | + +------+ + | Priscilla Ramírez PA-C | PCP | | + +------+ + Encounter Details +--------+ + + + + | Date | Type | Department | Care Team | Description | +--------+ + + + + | 02/27/ | Ancillary | Registration 3181 | Donnie, | | | 2005 | Registratio | [facility]o | Cathie | | | | n | Abdoulaye Mailcode: [id number] | DNP,HADOOP APPLICATION DEVELOPER,[place] [address] | | | | | [place], [place] | [address] [place], | | | | | [address] | [place] [address] | | | | | [phone] | [phone] | | | | | | | [...] | | 2020 | Visit | | [address] [facility] [address] | | | | | | [address] | | | | | | [place], [place] | | | | | | [address] | | | | | | [phone] | | | | | | | | +--------+---------+ + + + documented as of this encounter Procedures + +--------+ + + + | Procedure Name | Priori | Date/Time | Associated Diagnosis | Comments | | | ty | | | | + +--------+ + + + | BASIC METABOLIC SET | Routin | 02/27/2006 | | Results for this | | (NA, K, CL, TCO2, | e | 2:11 PM | | procedure are in the | | BUN, CR, GLU, CA) | | PDT | | results section. | + +--------+ + + + documented in this encounter Results BASIC METABOLIC SET (02/27/2006 2:11 PM PDT) + +---------+ + + + | Component | Value | Ref Range | Performed | Pathologist | | | | | At | Signature | + +---------+ + + + | GLUCOSE, | 98 | 65 - 110 mg/dL | [facility] | | | PLASMA | | | DEPARTMENT | | | (LAB) | | | OF | | | | | | PATHOLOGY | | + +---------+ + + + | BUN, PLASMA | 10 | 6 - 20 mg/dL | [facility] | | | (LAB) | | | DEPARTMENT | | | | | | OF | | | | | | PATHOLOGY | | + +---------+ + + + | CREATININE | 0.9 | 0.7 - 1.3 mg/dL | [facility] [...] +---------+ + + + | CHLORIDE, | 104 | 98 - 107 mmol/L | [facility] | | | PLASMA | | | DEPARTMENT | | | (LAB) | | | OF | | | | | | PATHOLOGY | | + +---------+ + + + | TOTAL CO2, | 26 | 23 - 29 mmol/L | [facility] | | | PLASMA | | | DEPARTMENT | | | (LAB) | | | OF | | | | | | PATHOLOGY | | + +---------+ + + + | CALCIUM, | 8.9 | 8.5 - 10.5 | [facility] | | | PLASMA | | mg/dL | DEPARTMENT | | | (LAB) | | | OF | | | | | | PATHOLOGY | | + +---------+ + + + + + | Specimen | + + | | + + + + + | Narrative | Performed At | + + + | [id number] Estimated GFR > 60 mL/min/1.73 sq m if non- | [facility] | | [id number] Estimated GFR > 60 mL/min/1.73 sq m [...] + + + + | [facility] | [address] | [place] [address] | | | PATHOLOGY | [address] | | | + + + + + | [facility] | [address] | [place] [address] | | | PATHOLOGY | [address] | | | + + + + + documented in this encounter Visit Diagnoses Not on filedocumented in this encounter"
--- OUTSIDE RECORDS SUMMARY | ~2019-07-14 | XMS | Encounter Summary ---
Demographics + + + | Address | [address] | | | [place] [address] | + + + | Home Phone [...] + + + | Author | [place] [employer] [facility] | + + + | Organization | [facility] | + + + | Address | Unknown | + + + | Phone | Unavailable | + + + Support + + +---------+ + | Name | Relationship | Address | Phone | + + +---------+ + | Alexandria Dixon | ECON | Unknown | | + + +---------+ + Care Team Providers + +------+ + | Care Poultry Farmer Egg Name | Role | Phone | + +------+ + | Priscilla Ramírez PA-C | PCP | | + +------+ + Encounter Details +--------+ + + + + | Date | Type | Department | Care Team | Description | +--------+ + + + + | 08/26/ | Ancillary | Registration 3181 | Donnie, | | | 2005 | Registratio | [facility] Flores | Cathie | | | | n | Abdoulaye Mailcode: [id number] | DNP,SHAREPOINT ADMINISTRATOR,[place] [address] | | | | | [place], [place] | [address] [place], | | | | | [address] | [place] [address] | | | | | [phone] | [phone] | | | | | | | [...] [place] | | | | | | [address] | | | | | | [phone] | | | | | | | | +--------+---------+ + + + documented as of this encounter Visit Diagnoses Not on filedocumented in this encounter"
--- OUTSIDE RECORDS SUMMARY | ~2019-07-14 | XMS | Encounter Summary ---
Demographics + + + | Address | [address] | | | [place] [address] | + + + | Home Phone [...] + + + | Author | [place] [employer] [facility] | + + + | Organization | [facility] | + [...] Providers + +------+ + | Care Parts Coordinator Name | Role | Phone | + +------+ + | No Pcp Per Patient | PCP | Unavailable | + +------+ + Reason for Visit + + + | Reason | Comments | + + + | Headache | x 2 months | + + + Encounter Details +--------+---------+ + + + | Date | Type | Department | Care Team | Description | +--------+---------+ + + + | 04/03/ | Office | Endocrinology | Nicolas Crawford, | 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 | Visit | Pituitary Disease | [address] | Pituitary Gland and | | | | Clinic [address] | [address] | Craniopharyngeal | | | | [address] | [place], [place] | Duct (Pouch) (HCC) | | | | Mailcode: [id number] | [address] | (Primary Dx); | | | | [facility] | [phone] | Diabetes Insipidus | | | | [address] | | (HCC) | | | | [place], [place] | | | | | | [address] | | | | | | [phone] | | | +--------+---------+ + + + [...] + documented as of this encounter Progress Nicolas Valente - 04/16/2006 12:11 PM PDTLabs and MRI results reviewed and communicated to the patient by phone. I answered all questions to apparent satisfaction and patient verbalized understanding. Briefly,the assesement is the following: His IGF1 is low, but due to the fact he didn't take it for a while, we'll keep on the same dose. Recheck IGF1 after 6 weeks of restarting it. Testosterone and BMP-OK. He will see Dr Styles in 3 weeks. 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 At this visit, he notes he has persistent frontal headache getting worsened over the last several months about 10 hours a day.They are not positional, and they are mildly changing with Advil or Excedrin, and then they reappear. Pt here for severe headache, for several weeks, continous, about 5 on a scale of 1 to 10, s everal days a week is 8-9. Pain is around periorbital area bilat, but more on the right. 6 weeks ago, we stoppped GH replacement for 2 weeks, then restarted and no difference in he adaches. Here with outside results from MRI done on 03.17.2006 ( please see scanned results). 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 He has now problems with Genotropin availability at his pharmacy. He was started on growth hormone about 2 months ago with first amelioration of his fatigue. He said he was really feeling better for a while, and then he started to complain of these headaches and also some dry mouth. He does not have any problems with the injections. He is taking them at night 0.2 mg. He has Genotropin MiniQuick, and his work interest and e nergy increased. He also says that he still has the increased thirst around the afternoon and also mild increased urination despite the fact th at he is taking the DDAVP as prescribed. He was followed by his primary care doctor for incr eased blood sugars and also some history of increased blood pressure, but he does not have a diagnosis of diabetes yet. Review of Systems: Negative other than stated above. Medications: Testosterone 5 mg daily, levothyroxine 175 mcg daily, hydrocortisone 20 mg q.a.m. and 10 mg q.p.m., DDAVP 0.4 mg nightly and 0.2 mg in the morning. Physical Examination: General: He is a mildly obese very nice gentleman. inches, blood pressure is 140/88, pulse 84, respirations 19. The patient has acanthosis nigricans on his neck and his axillary area. HEENT: Normocephalic and atraumatic. Pupils are equally responsive and reactive to light. Extraocular movements are intact. Visual godinez are normal to confrontation. There is some facial rounding but no facial plethora, frontal bossing, protruding jaw, or gaps between his teeth. He has mild acne. Neck: Mild dorsocervical hump and supraclavicular fat pad filling. No lymphadenopathy or jugular venous distention. Thyroid is normal in size and texture without bruits. Heart: Regular rate and rhythm. No murmurs, rubs, or gallops. Breasts: Mild bilateral gynecomastia. : Deferred. Skin: Without hyperpigmentation besides the acanthosis nigricans mentioned, not dry, sweaty, or oily. Abdomen: Positive bowel tones, nontender, and nondistended. Truncal obesity. No violaceous definite striae. Extremities: Proximal muscle weakness. No carpal tunnel syndrome, hand enlargement, or brittle fingernails. Lower extremities: No edema. Neurologic: Alert and oriented x3. Motor and sensory 5/5 throughout. No delayed relaxation phase of the brachial reflex. Laboratory Data: pending Assessment and Plan: Amairani Tyler is a young pleasant gentleman with a history of macroadeno ma status post surgery in September 2005 with panhypopituitarism and diabetes insipidus , fully replaced. 1 His main complaint at this visit is severe headache that does not subside to a treatment with Excedrin and Advil . The patient will have a CT sinuses today and be seen by ENT. 2 We spent some time discussing again the growth hormone replacement treatment risks and benefits, and how we are going to titrate th e growth hormone. His significant other had multiple questions which I answered to their sat isfaction. I spent some time discussing again his symptoms mostly with respect to growth hormone repla cement and treatment and concern for regrowth of tumor and long-term followup. IGf 1 pending 3 Hypogonadism,we will adjust testosterone replacement therapy pending current level of testosterone, and if dosage is changed, the patient will return in 6 weeks for followup level of testosterone. 4 Followup with primary care physician. The [...] 50% in coordination of care and counseling. NICOLAS CRAWFORD MD documented in this encoun ter Plan of Treatment +--------+---------+ + + + | Date | Type | Specialty | Care Team | Description | +--------+---------+ + + + | 08/15/ | Office | Cardiology | Zuleika Hernandez, | | | 2019 | Visit | | [address] | | | | | | [address] | | | | | | [place], [place] | | | | | | [address] | | | | | | [phone] | | | | | | | | +--------+---------+ + + + documented as of this encounter Procedures + +--------+ + + + | Procedure Name | Priori | Date/Time | Associated Diagnosis | Comments | | | ty | | | | + +--------+ + + + | INSULIN GROWTH | Routin | 04/03/2006 | Benign Neoplasm of | Results for this | | FACTOR-1, SERUM | e | 3:09 PM | Pituitary Gland and | procedure are in the | | | | PDT | Craniopharyngeal | results section. | | | | | Duct (Pouch) ([facility]) | | + +--------+ + + + | PROLACTIN | Routin | 04/03/2006 | Benign Neoplasm of | Results for this | | | e | 3:09 PM | Pituitary Gland and | procedure are in the | | | | PDT | Craniopharyngeal | results section. | | | | | Duct (Pouch) ([facility]) | | + +--------+ + + + | TESTOSTERONE, SERUM | Routin | 04/03/2006 | Benign Neoplasm of | Results for this | | | e | 3:09 PM | Pituitary Gland and | procedure are in the | | | | PDT | Craniopharyngeal | results section. | | | | | Duct (Pouch) ([facility]) | | + +--------+ + + + documented in this encounter Results TESTOSTERONE (04/03/2006 3:09 PM PDT) + + + + + + | Component | Value | Ref Range | Performed | Pathologist | | | | | At | Signature | + + + + + + | TESTOSTERON | 560Comment: Test | 241 - 950 ng/dl | [...] | + + + + + | [facility] | [address] | [place] [address] | | | LABORATORY | | | | + + + + + PROLACTIN (04/03/2006 3:09 PM PDT) + + + + + + | Component | Value | Ref Range | Performed | Pathologist | | | | | At | Signature | + + + + + + | PROLACTIN | 6Comment: Test performed | 3 - 17 ng/ml | | | | | by [facility] | | | | | | [facility]. | | | | + + + + + + + + | Specimen | + + | | + + + + + + + | Performing | Address | City/State/Zipcode | Phone Number | | Organization | | | | + + + + + | [facility] | [address] | [place] [address] | | | LABORATORY | | | | + + + + + IGF-1 (04/03/2006 3:09 PM PDT) + + + + + + | Component | Value | Ref Range | Performed | Pathologist | | | | | At | Signature | + + + + + + | IGF-1 | 71 (L)Comment: Test | 117 - 329 ng/mL [...] | + + + + + | [facility] | [address] | [place] [address] | | | LABORATORY | | | | + + + + + BASIC METABOLIC SET (04/03/2006 3:08 PM PDT) [...] Performed At | + + + | [id number] Estimated GFR > 60 mL/min/1.73 sq m if non- | [facility] | | [id number] Estimated GFR > 60 mL/min/1.73 sq m [...] | + + + + + | [facility] | [address] | [place] [address] | | | PATHOLOGY | [address] | | | + + + + + | [facility] | [facility] [address] | [place] [address] | | | PATHOLOGY | [address] | | | + + + + + documented in this encounter Visit Diagnoses + + | Diagnosis | + + | Benign neoplasm of pituitary gland and craniopharyngeal duct (pouch) (HCC) - Primary | | Benign neoplasm of pituitary gland and craniopharyngeal duct (pouch) | + + | Diabetes insipidus (HCC) Diabetes insipidus | + + documented in this encounter"
--- OUTSIDE RECORDS SUMMARY | ~2019-07-14 | XMS | Encounter Summary ---
Demographics + + + | Address | [address] | | | [place] [address] | + + + | Home Phone [...] + + + | Author | [place] [employer] [facility] | + + + | Organization | [facility] [...] Team Providers + +------+ + | Care Um Specialist Name | Role | Phone | + +------+ + | Priscilla Ramírez PA-C | PCP | | + +------+ + Reason for Visit +--------+ + | Reason | Comments | +--------+ + | Other | angio images | +--------+ + Encounter Details +--------+ + + + + | Date | Type | Department | Care Team | Description | +--------+ + + + + | 04/13/ | Telephone | Cardiology General | Zuleika Hernandez, | Other (angio images) | | 2018 | | at [facility] [address] | MD [address] [facility] | | | | | [address] Mailcode: | [address] | | | | | [address] | [place], [place] | | | | | Health and Healing, | [address] | | | | | [facility] | [phone] | | | | | floor [place], [place] | | | | | | [address] | | | | | | [phone] | | | +--------+ + + + [...] [place] | | | | | | [address] | | | | | | [phone] | | | | | | | | +--------+---------+ + + + documented as of this encounter Visit Diagnoses Not on filedocumented in this encounter"
--- OUTSIDE RECORDS SUMMARY | ~2019-07-14 | XMS | Encounter Summary ---
Demographics + + + | Address | [address] | | | [place] [address] | + + + | Home Phone | | + + + | Preferred Language | Unknown | + + + | Marital Status | Single | + + + | Jehovah'S Witness Affiliation | Unknown | + + + | Race | Unknown | + + + | Ethnic Group | Unknown | + + + Author + + + | Author | [facility] | | | and [place] | + + + | Organization | [facility] | | | and [place] [...] Team Providers + +------+ + | Care Title Searcher Name | Role | Phone | + [...] | SLEEP DISORDER 401 | [address] | | | | | [address] | [place] | | | | | [place] [address] | [address] | | | | | [phone] | | | +--------+ + + + [...] [place] | | | | | | [address] | | | | | | | | +--------+---------+ + + + documented as of this encounter Visit Diagnoses Not on filedocumented in this encounter"
--- OUTSIDE RECORDS SUMMARY | ~2019-07-14 | XMS | Encounter Summary ---
Demographics + + + | Address | [address] | | | [place] [address] | + + + | Home Phone | | + + + | Preferred Language | Unknown | + + + | Marital Status | Single | + + + | Restorationist Affiliation | Unknown | + + + | Race | Unknown | + + + | Ethnic Group | Unknown | + + + Author + + + | Author | [facility] | | | and [place] | + + + | Organization | [facility] | | | and [place] [...] Providers + +------+ + | Care Electric Meter Tester Shop Name | Role | Phone | + +------+ + | Jinny eBrgeron MD | PCP | | + +------+ [...] | | | | | Procedures | [address] | [place] [address] | | | | | OFFICE VISIT | Phone: | Phone: | | | | | REGULAR | [phone] | [phone] | | | | | | Fax: | Fax: | | | | | | [phone] | [phone] | +--------+--------+ + + + + Encounter [...] Dx); 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[place], [place]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; Hypertrophy | | | | [address] | [phone] | of tonsils alone; | | | | [phone] | | Obstructive sleep | | | [...] MD - 05/21/2016 7:34 PM PDT [facility] [address] [place] [address] OFFICE NOTE MCKAY ZAFAR MD Patient: FAROOQ LEMA Admitting: MR #: [id number] LOC: PT TYPE: Adm Date: 05/21/2016 : [...] 19:34:05 Transcribed on 05/22/2016 16:24:45 by job# [id number] Confirmation #: [id number] cc: [facility]ON [facility] - 05/21/2016 7:31 PM PDT [facility] [address] [place] [address] [id number] OFFICE NOTE MCKAY ZAFAR MD Patient: FAROOQ LEMA Admitting: MR #: [id number] LOC: PT TYPE: Adm Date: 05/21/2016 : [...] Transcribed on 05/22/2016 16:26:09 by naz job# [id number] Confirmation #: [id number] cc: JINNY BERGERON MD [facility], Mckay Bahena MD - 05/21/2016 7:29 PM PDTSee dictation # [id number] signed by Mckay Zafar MD at 05/21/2016 [...]
--- OUTSIDE RECORDS SUMMARY | ~2019-07-14 | XMS | Encounter Summary ---
Demographics + + + | Address | [address] | | | [place] [address] | + + + | Home Phone [...] + + + | Author | [place] [employer] [facility] | + + + | Organization | [facility] | [...] Team Providers + +------+ + | Care Rotary Cutter Operator Name | Role | Phone | + +------+ + | Priscilla Ramírez PA-C | PCP | | + +------+ + Reason for Visit + + + | Reason | Comments | + + + | Lab Results | | + + + Encounter Details +--------+ + + + + | Date | Type | Department | Care Team | Description | +--------+ + + + + | 03/31/ | Telephone | Cardiology in | Zuleika Hernandez, | Lab Results | | 2018 | | [facility] | [address] | | | | | [facility] | [facility] | | | | | [place] [address] | [place], [place] | | | | | [facility] [address] | [address] | | | | | [place], [place] | [phone] | | | | | [address] | | | | | | [phone] | | | +--------+ + + + [...] Rd | | | | | | [place], [place] | | | | | | [address] | | | | | | [phone] | | | | | | | | +--------+---------+ + + + documented as of this encounter Visit Diagnoses Not on filedocumented in this encounter"
--- OUTSIDE RECORDS SUMMARY | ~2019-07-14 | XMS | Encounter Summary ---
Demographics + + + | Address | [address] | | | [place] [address] | + + + | Home Phone [...] + + + | Author | [place] [employer] [facility] | + + + | Organization | [facility] | + + + | Address | Unknown | + + + | Phone | Unavailable | + + + Support + + +---------+ + | Name | Relationship | Address | Phone | + + +---------+ + | Alexandria Dixon | ECON | Unknown | | + + +---------+ + Care Team Providers + +------+ + | Care Internal Control Consultant Name | Role | Phone | [...] Appointment | | 2011 | Encounter | [facility] [address] | Cathie | | | | | [place] Mailcode: [id number] | DNP,DIGITAL PROJECT MANAGER,[place] [address] | | | | | [facility] | [address] [place], | | | | | and Healing, | [place] [address] | | | | | [facility] [address] | [phone] | | | | | [place], [place] | | | | | | [address] | | | | | | [phone] | | | +--------+ + + + [...] Rd | | | | | | [place], [place] | | | | | | [address] | | | | | | [phone] | | | | | | | | +--------+---------+ + + + documented as of this encounter Visit Diagnoses Not on filedocumented in this encounter"
--- OUTSIDE RECORDS SUMMARY | ~2019-07-14 | XMS | Encounter Summary ---
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 | [place], [place] | [place], [place] | | | | | 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 | Phone: | Phone: | | | | | ([facility]) | [phone] | [phone] | | | | | Glucocortico | Fax: | Fax: | | | | | id | [phone] | [phone] | | | | | deficiency | | | | | | | (HCC) | | | | | | | 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 | | | | | | | ([facility]) | | | | | | | Procedures | | | | | | | NE EST | | | | | | [...] Panhypopituitarism | | 2017 | Visit | [facility] [address] | [place], | ([facility]) (Primary Dx) | | | | Ave Mailcode: CH8N | DNP,BEATER WORKER HELPER,[place] [address] | | | | | [facility] | [address] [place], | | | | | and Healing, | [place] [address] | | | | | Building [address] | [phone] | | | | | [place], [place] | | | | | | [address] | | | | | | [phone] | | | +--------+---------+ + + + [...] Rd | | | | | | [place], [place] | | | | | | [address] | | | | | | [phone] | | | | | | | | +--------+---------+ + + + documented as of this encounter Visit Diagnoses + + | Diagnosis | + + | Panhypopituitarism (HCC) - Primary Panhypopituitarism | + + documented in this encounter"
--- OUTSIDE RECORDS SUMMARY | ~2019-07-14 | XMS | Encounter Summary ---
Demographics + + + | Address | [address] | | | [place] [address] | + + + | Home Phone [...] | Author | [facility] | | | and [place] | + + + | Organization | [facility] | | | and [place] [...] Team Providers + +------+ + | Care Methodologist Name | Role | Phone | + +------+ + | Priscilla Ramírez PA-C | PCP | | + +------+ + Encounter Details +--------+ + + + + | Date | Type | Department | Care Team | Description | +--------+ + + + + | 02/09/ | Orders Only | [facility] | Conversion | | | 2015 | | CARDIOLOGY NOAH | Transaction, | | | | | [address] | Provider Unknown | | | | | [place], [place] | [phone] | | | | | [address] | | | | | | [phone] | | | +--------+ + + + [...] 2020 | Visit | | [address] | | | | | | [place] | | | | | | [address] | | | | | | | [...]
--- OUTSIDE RECORDS SUMMARY | ~2019-07-14 | XMS | Encounter Summary ---
Demographics + + + | Address | [address] | | | [place] [address] | + + + | Home Phone [...] + + + | Author | [place] [employer] [facility] | + + + | Organization | [facility] | + + + | Address | Unknown | + + + | Phone | Unavailable | + + + Support + + +---------+ + | Name | Relationship | Address | Phone | + + +---------+ + | Alexandria Dixon | ECON | Unknown | | + + +---------+ + Care Team Providers + +------+ + | Care Banquet Steward Name | Role | Phone | + [...] | | | [address] | [place], [place] | Duct (Pouch) (HCC) | | | | Mailcode: [id number] | [address] | (Primary Dx) | | | | [facility] | [phone] | | | | | [address] | | | | | | [place], [place] | | | | | | [address] | | | | | | [phone] | | | +--------+ + + + [...] | | 2020 | Visit | | [address] | | | | | | [address] | | | | | | [place], [place] | | | | | | [address] | | | | | | [phone] | | | | | | | [...] Performed At | + + + | [id number] Estimated GFR > 60 mL/min/1.73 sq m if non- | [facility] | | [id number] Estimated GFR > 60 mL/min/1.73 sq m [...] | + + + + + | [facility] DEPARTMENT OF | [address] | [place] [address] | | | PATHOLOGY | [address] | | | + + + + + | [facility] | [address] | [place] [address] | | | PATHOLOGY | [address] [...]
--- OUTSIDE RECORDS SUMMARY | ~2019-07-14 | XMS | Encounter Summary ---
Demographics + + + | Address | [address] | | | [place] [address] | + + + | Home Phone [...] + + + | Author | [place] [employer] [facility] | + + + | Organization | [facility] [...] Team Providers + +------+ + | Care Investment Counselor Name | Role | Phone | [...] Refill Request | | 2010 | | [facility] [address] | [place], | | | | | [place] Mailcode: CH8N | DNP,RESEARCH SPECIALIST,[place] [address] | | | | | [facility] | [address] [place], | | | | | and [facility], | [place] [address] | | | | | Building 1 | [phone] | | | | | [place], [place] | | | | | | [address] | | | | | | [phone] | | | +--------+--------+ + + + [...] | | 2019 | Visit | | [address] | | | | | | [address] | | | | | | [place], [place] | | | | | | [address] | | | | | | [phone] | | | | | | | | +--------+---------+ + + + documented as of this encounter Visit Diagnoses Not on filedocumented in this encounter"
--- OUTSIDE RECORDS SUMMARY | ~2019-07-14 | XMS | Encounter Summary ---
Demographics + + + | Address | [address] | | | [place] [address] | + + + | Home Phone [...] + + + | Author | [place] [employer] [facility] | + + + | Organization | [facility] | [...] Team Providers + +------+ + | Care Microwave Remote Sensing Scientist Name | Role | Phone | [...] Description | +--------+--------+ + + + | 10/24/ | Refill | Neurosurgery at | [place]nie, | Refill Request | | 2015 | | [facility] [address] | [place], | | | | | [place] Mailcode: [id number] | DNP,REINFORCING STEEL MACHINE OPERATOR,[place] [address] | | | | | [facility] | [address] [place], | | | | | and Healing, | [place] [address] | | | | | Building 1 | [phone] | | | | | [place], [place] | | | | | | [address] | | | | | | [phone] | | | +--------+--------+ + + + [...] Rd | | | | | | [place], [place] | | | | | | [address] | | | | | | [phone] | | | | | | | | +--------+---------+ + + + documented as of this encounter Visit Diagnoses Not on filedocumented in this encounter"
--- OUTSIDE RECORDS SUMMARY | ~2019-07-14 | XMS | Encounter Summary ---
Demographics + + + | Address | [address] | | | [place] [address] | + + + | Home Phone [...] + + + | Author | [place] [employer] [facility] | + + + | Organization | [facility] | [...] Providers + +------+ + | Care Furniture Upholsterer Apprentice Name | Role | Phone | [...] | | | Rd Mailcode: [id number] | [place], [place] | | | | | Physician's | [address] | | | | | [place], | [phone] | | | | | [place] [address] | | | | | | [phone] | | | +--------+ + + + [...] | | 2019 | Visit | | [address] | | | | | | [address] | | | | | | [place], [place] | | | | | | [address] | | | | | | [phone] | | | | | | | [...] + + + + | PRODUCT | [id number] | | [facility] | | | UNIT [...] + + + + | EXPIRATION | [id number] | | [facility] | | | DATE [...] + + + + | BLOOD | [id number] | | [facility] | | | PRODUCT [...] [facility] | [address] | [place] [address] | | | SERVICES, | [address] [...] + + + + | PRODUCT | [id number] | | [facility] | | | UNIT [...] + + + + | EXPIRATION | [id number] | | [facility] | | | DATE [...] + + + + | BLOOD | [id number] | | [facility] | | | PRODUCT [...] [facility] | [address] | [place] [address] | | | SERVICES, | [address] | | | | TRANSFUSION MEDICINE | | | | + + + + + documented in this encounter Visit Diagnoses + + | Diagnosis | + + | 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
--- OUTSIDE RECORDS SUMMARY | ~2019-07-14 | XMS | Encounter Summary ---
Demographics + + + | Address | [address] | | | [place] [address] | + + + | Home Phone [...] + + | Author | [place] [employer] [facility] | + + + | Organization | [facility] [...] Providers + +------+ + | Care Occupational Health Nurse Supervisor Name | Role | Phone | [...] | | 2008 | Encounter | [facility] [address] | [place] | | | | | [place] Mailcode: CH8N | DNP,STOCK UNLOADER,[place] [address] | | | | | [facility] | [address] [place], | | | | | and Healing, | [place] [address] | | | | | [facility] 1 | [phone] | | | | | [place], [place] | | | | | | [address] | | | | | | [phone] | | | +--------+ + + + [...] Rd | | | | | | [place], [place] | | | | | | [address] | | | | | | [phone] | | | | | | | | +--------+---------+ + + + documented as of this encounter Visit Diagnoses Not on filedocumented in this encounter"
--- OUTSIDE RECORDS SUMMARY | ~2019-07-14 | XMS | Encounter Summary ---
Demographics + + + | Address | [address] | | | [place] [address] | + + + | Home Phone [...] + + + | Author | [place] [employer] [facility] | + + + | Organization | [facility] [...] Team Providers + +------+ + | Care Desulphuring Operator Name | Role | Phone | + +------+ + | Jhonny Rodriguez DO | PCP | | + +------+ + Encounter Details +--------+ + + + + | Date | Type | Department | Care Team | Description | +--------+ + + + + | 10/16/ | Twister Operator | Neurosurgery at | Donnie, | | | 2011 | | [facility] [address] | [place] | | | | | [place] Mailcode: CH8N | DNP,ENDODONTIC ASSISTANT,[place] [address] | | | | | [facility] | [address], | | | | | [place], | [place] [address] | | | | | [place] [address] | [phone] | | | | | [place], [place] | | | | | | [address] | | | | | | [phone] | | | +--------+ + + + [...] Rd | | | | | | [place], [place] | | | | | | [address] | | | | | | [phone] | | | | | | | | +--------+---------+ + + + documented as of this encounter Visit Diagnoses Not on filedocumented in this encounter"
--- OUTSIDE RECORDS SUMMARY | ~2019-07-14 | XMS | Encounter Summary ---
Demographics + + + | Address | [address] | | | [place] [address] | + + + | Home Phone [...] + + + | Author | [place] [employer] [facility] | + + + | Organization | [facility] | + + + | Address | Unknown | + + + | Phone | Unavailable | + + + Support + + +---------+ + | Name | Relationship | Address | Phone | + + +---------+ + | Alexandria Dixon | ECON | Unknown | | + + +---------+ + Care Team Providers + +------+ + | Care Travel Clerk Name | Role | Phone | [...] | | | [address] | [place], [place] | Duct (Pouch) (HCC) | | | | Mailcode: [id number] | [address] | (Primary Dx); | | | | [facility] | [phone] | Diabetes Insipidus | | | | [address] | | (HCC) | | | | [place], [place] | | | | | | [address] | | | | | | [phone] | | | +--------+---------+ + + + [...] Rd | | | | | | [place], [place] | | | | | | [address] | | | | | | [phone] | | | | | | | [...] | | | | | Duct (Pouch) ([facility]) | | + +--------+ + + + | PROLACTIN | Routin | 04/03/2006 | Benign Neoplasm of | Results for this | | | e | 3:09 PM | Pituitary Gland and | procedure are in the | | | | PDT | Craniopharyngeal | results section. | | | | | Duct (Pouch) ([facility]) | | + +--------+ + + + | TESTOSTERONE, SERUM | Routin | 04/03/2006 | Benign Neoplasm of | Results for this | | | e | 3:09 PM | Pituitary Gland and | procedure are in the | | | | PDT | Craniopharyngeal | results section. | | | | | Duct (Pouch) ([facility]) | | + +--------+ + + [...] | + + + + + | [facility] | [address] | [place] [address] | | | LABORATORY | | | [...] ng/ml | | | | | by [facility] | | | | | | Regional Labaoratory. | | | | + + + + + + + + | Specimen | + + | | + + + + + + + | Performing | Address | City/State/Zipcode | Phone Number | | Organization | | | | + + + + + | [facility] | [address] | [place] [address] | | | LABORATORY | | | [...] | + + + + + | [facility] | [address] | [place] [address] | | | LABORATORY | | | [...] Performed At | + + + | [id number] Estimated GFR > 60 mL/min/1.73 sq m if non- | [facility] | | [id number] Estimated GFR > 60 mL/min/1.73 sq m [...] + + + + + | [facility] | [address] | [place] [address] | | | PATHOLOGY | [address] | | | + + + + + | [facility] | [facility] [address] | [place] [address] | | | PATHOLOGY | [address] [...]
--- OUTSIDE RECORDS SUMMARY | ~2019-07-14 | XMS | Encounter Summary ---
Demographics + + + | Address | [address] | | | [place] [address] | + + + | Home Phone [...] + + + | Author | [place] [employer] [facility] | + + + | Organization | [facility] [...] Team Providers + +------+ + | Care Metallurgical Technician Name | Role | Phone | [...] | | 2018 | Encounter | at [facility] [address] | | leaving [facility]. | | | | [address] Mailcode: | | | | | | [address] | | | | | | Health and Healing, | | | | | | [facility] | | | | | | floor [place], [place] | | | | | | [address] | | | | | | [phone] | | | +--------+ + + + [...] | | | | | | [place], [place] | | | | | | [address] | | | | | | [phone] | | | | | | | | +--------+---------+ + + + documented as of this encounter Visit Diagnoses Not on filedocumented in this encounter"
--- OUTSIDE RECORDS SUMMARY | ~2019-07-14 | XMS | Encounter Summary ---
Demographics + + + | Address | [address] | | | [place] [address] | + + + | Home Phone [...] Author + + + | Author | [place] [employer] [facility] | + + + | Organization | [facility] | + [...] Team Providers + +------+ + | Care Trans Router Name | Role | Phone | + [...] 2005 | Visit | [address] | [place] [address] | (Primary Dx) | | | | Rd Mailcode:[id number] | [facility] [address] | | | | | [facility] | [place] [address] | | | | | [place], [place] | | | | | | [address] | | | | | | [phone] | | | +--------+---------+ + + + [...] | | 2019 | Visit | | [address] | | | | | | [address] | | | | | | [place], [place] | | | | | | [address] | | | | | | [phone] | | | | | | | [...]
--- OUTSIDE RECORDS SUMMARY | ~2019-07-14 | XMS | Encounter Summary ---
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 | | [address] | | ([facility]); 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[place], [place]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 | | | | [address] | | ([facility]); Diabetes | | | | [phone] | | insipidus ([facility]); | | | | | | Hypogonadism [...] Rd | | | | | | [place], [place] | | | | | | [address] | | | | | | [phone] | | | | | | | [...] [facility] | [address] | [place] [address] | | | SERVICES, CORE | [address] [...] | + + + + + | [employer] | [address] | [place] [address] | | | SERVICES, CORE | [address] [...] | | | this test in the [employer] | | | | | | Laboratory Test | | | | | | Directory | | | | | | (Perzo.Oculeve).Performed | | | | | | by [employer],[facility] | | | | | | [place]i Pickens, [facility],[place] | | | | | | [address] | | | | | | [phone].[facility]. | | | | | | [facility], Dariel Tobin, | | | | [...] [facility] | [address] | [place], [place] | | | UN[facility] | | [address] | | + + + + + [...] + | [facility] - | [address] | [place] [address] | | | [place] | | | [...] | | | this test in the [facility] | | | | | | Laboratory Test | | | | | | Directory | | | | | | (Perzo.Oculeve).Performed | | | | | | by [employer],[address] | | | | | | Michi Pickens, [facility],[place] | | | | | | [address] | | | | | | [phone].[email or web address]. | | | | | | [facility], Dariel Tobin, | | | | [...] [facility] | [address] | [place], [place] | | | UN[facility] P[facility] - INT[facility] | | [address] | | + + + + + [...] + + + + + | [facility] | [address] | [place] [address] | | | SERVICES, CORE | [address] [...] | | | LABORATORY | | | [place] | | | SERVICES, | | | [...] | + + + + + | [facility] | [address] | [place] [address] | | | SERVICES, CORE | [address] [...]
--- OUTSIDE RECORDS SUMMARY | ~2019-07-14 | XMS | Encounter Summary ---
Demographics + + + | Address | [address] [facility] [address] | | | [place] [address] | + + + | Home Phone [...] Author + + + | Author | [place] [employer] [facility] | + + + | Organization | [facility] [...] Team Providers + +------+ + | Care Home Assessment Nurse Name | Role | Phone | [...] | | | [place] Mailcode: CH8N | DNP,WAREHOUSE DELIVERY DRIVER,[place] [address] | | | | | [facility] | [address] [place], | | | | | and Healing, | [place] [address] | | | | | Building 1 | [phone] | | | | | [place], [place] | | | | | | [address] | | | | | | [phone] | | | +--------+--------+ + + + [...] Rd | | | | | | [place], [place] | | | | | | [address] | | | | | | [phone] | | | | | | | [...]
--- OUTSIDE RECORDS SUMMARY | ~2019-07-14 | XMS | Encounter Summary ---
Demographics + + + | Address | [address] | | | [place] [address] | + + + | Home Phone [...] | Author | [facility] | | | and [place] | + + + | Organization | [facility] | | | and [...] Team Providers + +------+ + | Care Drill Rig Operator Helper Name | Role | Phone [...] Description | +--------+---------+ + + + | 08/20/ | Office | [facility] | Sumanth Champion PA | MALLIKA on CPAP (Primary | | 2016 | Visit | SLEEP DISORDER [address] | [address] | Dx) | | | | [address] | [place] | | | | | [place] [address] | [address] | | | | | [phone] | | | +--------+---------+ + + + [...] + + + | Blood Pressure | 116/72 | 08/20/2015 2:52 PM | | | | | PST | | + + + + + | Pulse | 99 | 08/20/2015 2:52 PM | | | | | PST | | + + + + + | Temperature | - | - | | + + + + + | Respiratory Rate | 16 | 08/20/2015 2:52 PM | | | | | PST | | + + + + + | Oxygen Saturation | 98% | 08/20/2015 2:52 PM | | | | | PST | | + + + + + | Inhaled Oxygen | - | - | | | Concentration | | | | + + + + + | Weight | 134.9 kg (297 lb 6.4 | 08/20/2015 2:52 PM | | | | oz) | PST | | + + + + + | Height | - | - | | + + + + + | Body Mass Index | 45.22 | 07/25/2015 9:00 AM | | | | | PST | | + + + + + documented in this encounter Progress Notes Sumanth Champion PA - 08/20/2015 2:50 PM PST Subjective: Patient ID: Amairani Ulloa is a 35 y.o. male. HPI last office visit was: 02/13/2015 date of polysomnography: 12/10/2006 AHI: 38.9 O2%: 75% with 19.7 minutes below 88% Machine type: ResMed S9 with nasal mask obtained from: [facility] [place] pressure: 12-18 cm Median: 12.1 cm 95%: 12.8 cm maximum: 13.3 cm Nights using CPAP: 229/369 145/181 137/188 % of nights >4 hours: 28% 59% 55% average usage (all nights): 2:29 3:55 3:40 average usage (nights used): 4:00 4:54 5:03 AHI: 0.5 Shai comes in for CPAP compliance with his girlfriend. He has improved his compliance in t he last year, but continues to struggle with being able to wear it for the duration of his s leep on a nightly basis. He feels that his work schedule is the main challenge, but he has a difficult time remembering to wear his CPAP. His girlfriend continues to need to remind h im to wear it. His dogs sleeping in the bed with him continues to be a significant distract ion for them both. He says his dogs help him unwind, but they cause her allergies to worsen . It also doesn't allow them time together. He does not get enough sleep at night, but say s he falls asleep during the day at times (likely more than he thinks). He has a very busy work schedule that does not allow him enough time at home to get enough sleep. He typically tries to make up for it on the weekends. We again discussed in great detail the fact that his girlfriend is very concerned about his health and is continually urging him to use his C PAP. He has a history of two AMI's and is taking metformin for diabetes. He is starting to notice that he doesn't function as well on low amounts of sleep and he is starting to see t he health implications of not sleeping well. She seems much more motivated to correct this than he does. I have discussed the download in detail. This shows that his sleep apnea is well controlle d, with an AHI of 0.5. It also shows that his leaks are well controlled. Review of Systems Objective: Physical Exam Assessment: Problem #1: OBSTRUCTIVE SLEEP APNEA (BIV33-X10.33) This is well controlled with CPAP. He continues to struggle with wearing his CPAP consiste ntly and with wearing it for the duration of the night. This has improved during the last y ear, but there are still many nights that he sleeps without it or just for a short time. Plan: He is to continue with CPAP indefinitely. I have recommended that he continue to work [employer] wearing his CPAP 100% of the time he is asleep. I have also recommended that he try to g et more hours of sleep during the week and try to keep a regular sleep schedule. I will follow up again in 6 months, sooner prn. Thirty minutes were spent [id number], wi th the majority of time spent [...] Peter | | | | | | [place] | | | | | | [address] | | | | | | | | +--------+---------+ + + + documented as of this encounter Visit Diagnoses + + | Diagnosis | + + | MALLIKA on CPAP - Primary Obstructive sleep apnea (adult) (pediatric) | + + documented in this encounter"
--- OUTSIDE RECORDS SUMMARY | ~2019-07-14 | XMS | Encounter Summary ---
Demographics + + + | Address | [address] | | | [place] [address] | + + + | Home Phone | | + + + | Preferred Language | Unknown | + + + | Marital Status | Single | + + + | Hindu Affiliation | Unknown | + + + | Race | Unknown | + + + | Ethnic Group | Unknown | + + + Author + + + | Author | [facility] | | | and [place] | + + + | Organization | [facility] | | | and [place] [...] Team Providers + +------+ + | Care Rubber Belt Splicer Name | Role | Phone | [...] | | | | 02/20/ | | [facility] [place] [facility] | | | | 2010 | | [address] | | | | | | [phone] | | | +--------+ + + + [...] THOMAS | | | | | | [address] | | | | | | | [...] Performed At | + + + | [place] [address] | | | Patient Name: AASHISH LEMA Date of : | | | 1980 Medical Record: [id number] Account: [id number] | | | Exam Date/Time: 02/20/2011 07:06 [...] contrast | | | was used at pleater hand's discretion to reveal normal wall motion of [...] 88.53 ml D-E Excursion: 1.81 cm E-F [place]: 0.06 m/s EPSS: | | | 0.53 [...] TV A Fadi: 0.32 m/s TV Dec [place]: 2.13 m/s2 TV Dec | | | Time: 294.67 ms TV E Fadi: 0.62 m/s TV E/A Ratio: 1.94 | | | Cover Seamer: ZIA Authenticated by: Jovanni Osuna Report Date/Time: | | | 02-20-2011 21:59:45 | | + + + + + | Procedure Note | + + | Alonzo Trevizo Conversion - 04/02/2019 5:58 PM [facility] | | [place], [place] [address]Lv: Patient Name: Sadi LEMA of : | | 1980Medical Record: [id number]: [id number] | | Date/Time: 02/20/2011 07:06Performing Physician: Jovanni [...] abnormality identification, but contrast was used at pleater hand's | | discretion to reveal normal wall [...] mlLAESV Index (A-L): 33.08 ml/m2LAAs A2C: 23.46 [id number] A-L | | A2C: 78.57 mlLALs A2C: 5.94 cmLAAs A4C: 22.75 [id number] A-L A4C: 76.37 mlLALs | | A4C: 5.75 cmAo Diam: 3.57 cmAV Cusp: 2.15 cmLA Diam: 4.44 cmLA/Ao: 1.24%FS: | | 37.17 %EDV(Teich): 132.71 mlEF(Teich): 66.71 %ESV(Teich): 44.17 mlIVSd: 1.14 | | cmIVSs: 1.61 cmLVIDd: 5.25 cmLVIDs: 3.30 cmLVPWd: 1.28 cmLVPWs: 1.54 | | cmSV(Teich): 88.53 mlD-E Excursion: 1.81 cmE-F [place]: 0.06 m/sEPSS: 0.53 cmHR: | | 61.24 BPMAV maxP.09 mmHgAV meanP.03 mmHgAV Vmax: 1.23 m/April Vmean: 0.80 | | m/April VTI: 28.43 cmAVA Vmax: 2.54 cm2AVA (VTI): 2.59 mx1GJZL: 314.23 msLVCI | | Dopp: 1.78 l/gmbq5WYYI Dopp: 4.25 l/minHR: 57.75 BPMLVOT maxP.40 mmHgLVOT [...] 1.02 m/sTV A Fadi: 0.32 m/sTV Dec [place]: | | 2.13 m/s2TV Dec Time: 294.67 msTV E Fadi: 0.62 m/sTV E/A Ratio: 1.94 Cover Seamer: | | ZIAAuthenticated by: Jovanni Tejada Date/Time: [...] | |D-E Excursion: 1.81 cm | |E-F [place]: 0.06 m/s | |EPSS: 0.53 cm | [...] A Fadi: 0.32 m/s | |TV Dec [place]: 2.13 m/s2 | |TV Dec Time: 294.67 ms | |TV E Fadi: 0.62 m/s | |TV E/A Ratio: 1.94 | | | |Cover Seamer: ZIA | |Authenticated by: Jovanni Osuna | |Report Date/Time: 02-20-2011 21:59:45 | + + CV CARDIAC PROCEDURE (02/19/2011 1:03 PM PDT) + + | Specimen | + + | | + + + + + | Narrative | Performed At | + + + | [facility] [address] Ph: | | | Patient Name: AASHISH LEMA V Date of : | | | 1980 Medical Record: [id number] Account: [id number] | | | Exam Date/Time: 02/19/2011 13:10 [...] device deployment. 6. A | | | 6-Polish Angio-Seal deployment at the right arteriotomy site. | | | INDICATIONS The patient is a 30-year-old gentleman who | | | presented to the emergency room at [facility] in [place] | | | complaining of pleuritic chest pain. A 12-lead EKG was suspicious of | | | possible acute inferior wall ST-elevation myocardial infarction. | | | Patient was transferred to [facility] for an | | | emergency [...] | | groin with 1% lidocaine. A 6-Polish vascular sheath was inserted in | | [...] sheath. The sheath was pulled, and a 6-Polish Angio-Seal was | | | deployed at [...] collaterals | | | as well as hvyh-zg-zerhh collaterals. LEFT VENTRICULOGRAM | | | Revealed [...] DT: | | | 02/25/2011 12:25 P /volodymyr/[id number]/ Read by JOVANNI OSUNA MD | | | 02/23/2011 12:19 P Electronically signed by JOVANNI OSUNA MD on | | | 03/12/2011 9:02 AM | | + + + + + | Procedure Note | + + | Alonzo Trevizo Conversion - 04/02/2019 5:58 PM PDT | | [facility] | | [facility] [address] | | | | | | Patient Name: AASHISH LEMA V | | Date of : 1980 | | Medical Record: [id number] | | Account: [id number] | | | | | | Exam [...] closure device deployment. | | 6. A 6-Polish Angio-Seal deployment at the right arteriotomy site. | | | | INDICATIONS | | The patient is a 30-year-old gentleman who presented to the | | emergency room at [facility] in [place] complaining of | | pleuritic chest pain. A 12-lead EKG was suspicious of possible acute | | inferior wall ST-elevation myocardial infarction. Patient was | | transferred to [facility] for an emergency cardiac | | [...] groin | | with 1% lidocaine. A 6-Polish vascular sheath was inserted in the right [...] sheath. The sheath was pulled, and a 6-Polish Angio-Seal | | was deployed at the [...] via both bridging collaterals as well as djtx-tz-rowpt | | collaterals. | | | | [...] | P | | P | | /volodymyr/[id number]/ | | | | Read by | | JOVANNI OSUNA MD 02/23/2011 12:19 P | | | | | + + CV CARDIAC PROCEDURE (02/19/2011 1:03 PM PDT) + + | Specimen | + + | | + + + + + | Narrative | Performed At | + + + | [facility] [address] Ph: | | | Patient Name: AASHISH LEMA V Date of : | | | 1980 Medical Record: [id number] Account: [id number] | | | Exam Date/Time: 02/19/2011 11:59 Ordering | | | Physician: JOVANNI OSUNA Order Detail: [id number] Exam Description: | | | [facility] CORONARY ANGIO | | | | | | PROCEDURES 1. Selective coronary angiography. 2. Left heart | | | catheterization. 3. Left ventriculography. 4. Percutaneous coronary | | | intervention with stenting of the mid left circumflex artery. 5. | | | Right femoral angiogram for possible closure device deployment. 6. A | | | 6-Polish Angio-Seal deployment at the right arteriotomy site. | | | INDICATIONS The patient is a 30-year-old gentleman who | | | presented to the emergency room at [facility] in [place] | | | complaining of pleuritic chest pain. A 12-lead EKG was suspicious of | | | possible acute inferior wall ST-elevation myocardial infarction. | | | Patient was transferred to [facility] for an | | | emergency [...] | | groin with 1% lidocaine. A 6-Polish vascular sheath was inserted in | | [...] sheath. The sheath was pulled, and a 6-Polish Angio-Seal was | | | deployed at [...] collaterals | | | as well as ngoy-zv-lufwz collaterals. LEFT VENTRICULOGRAM | | | Revealed [...] DT: | | | 02/25/2011 12:25 P /volodymyr/[id number]/ Read by JOVANNI OSUNA MD | | | 02/23/2011 12:19 P Electronically signed by JOVANNI OSUNA MD on | | | 03/12/2011 9:02 AM | | + + + + + | Procedure Note | + + | Alonzo Trevizo Conversion - 04/02/2019 5:58 PM PDT | | [facility] | | [facility] [place] [address] | | | | | | Patient Name: AASHISH LEMA V | | Date of : 1980 | | Medical Record: [id number] | | Account: [id number] | | | | | | Exam [...] closure device deployment. | | 6. A 6-Polish Angio-Seal deployment at the right arteriotomy site. | | | | INDICATIONS | | The patient is a 30-year-old gentleman who presented to the | | emergency room at [facility] in [place] complaining of | | pleuritic chest pain. A 12-lead EKG was suspicious of possible acute | | inferior wall ST-elevation myocardial infarction. Patient was | | transferred to [facility] for an emergency cardiac | | [...] groin | | with 1% lidocaine. A 6-Polish vascular sheath was inserted in the right [...] sheath. The sheath was pulled, and a 6-Polish Angio-Seal | | was deployed at the [...] via both bridging collaterals as well as owak-uv-eboyi | | collaterals. | | | | [...] | P | | P | | /volodymyr/[id number]/ | | | | Read by | | JOVANNI OSUNA MD 02/23/2011 12:19 P | | | | | + + documented in this encounter Visit Diagnoses Not on filedocumented in this encounter"
--- OUTSIDE RECORDS SUMMARY | ~2019-07-14 | XMS | Encounter Summary ---
Demographics + + + | Address | [address] | | | [place] [address] | + + + | Home Phone | | + + + | Preferred Language | Unknown | + + + | Marital Status | Single | + + + | Catholic Affiliation | Unknown | + + + | Race | Unknown | + + + | Ethnic Group | Unknown | + + + Author + + + | Author | [facility] | | | and [place] | + + + | Organization | [facility] | | | [...] Team Providers + +------+ + | Care Market Development Analyst Name | Role | Phone | + +------+ + PCP | Unavailable | + +------+ + Encounter Details +--------+ + + + + | Date | Type | Department | Care Team | Description | +--------+ + + + + | 02/12/ | Hospital | [facility] | Moiz Raza | | | 2010 | Encounter | MED CTR XRAY [address] | | | | | [place] | [place], [place] | | | | | [place] [address] | [id number] | | | | | [phone] | | | +--------+ + + + [...] 2020 | Visit | | [address] | | | | | | [place] | | | | | | [address] | | | | | | | | +--------+---------+ + + + documented as of this encounter Procedures + +--------+ + + + | Procedure Name | Priori | Date/Time | Associated Diagnosis | Comments | | | ty | | | | + +--------+ + + + | FL GUIDED NEEDLE | | 02/12/2011 | | Results for this | | PLACEMENT | | 3:14 PM | | procedure are in the | | | | PDT | | results section. | + +--------+ + + + documented in this encounter Results FL Guided Needle Placement (02/12/2011 3:14 PM PDT) + + | Specimen | + + | | + + + + + | Narrative | Performed At | + + + | [facility] Diagnostic Imaging Department | [facility] | | [address] [facility] | [facility] | | PROCEDURE: LEFT SUBSCAPULAR | DIAG IMG | | BURSA INJECTION ICD-9 code 719.41, shoulder pain. Mr. Bales | | | Jayson presents to the fluoroscopy suite for a fluoroscopically | | | guided left subcapsular burs a injection as part of conservative | | | management for posterior left shoulder pain and likely subscapula r | | | bursitis. After informed consent was obtained, the patient lay in a | | | prone position on the fluorosc opy table. The area was identified | | | under fluoroscopic guidance. The area was prepped and draped in a | | | sterile fashion. A 25-gauge 1.5-inch needle was inserted into this | | | region and approximately 3 mL of buffered 1% lidocaine was infused. | | | Then a 22-gauge spinal needle was inserted under the medial borde r | | | of the scapula using direct fluoroscopic visualization. Confirmation | | | into the correct location was obtained with infusion of | | | approximately 0.5 mL of Isovue contrast, which showed no vascular | | | uptake a nd good flow in the subscapular bursa region. Then a | | | combination of 1 mL of 1% lidocaine and 1 mL of 40 mg/mL Kenalog was | | | infused. The patient tolerated the procedure without complications. | | | Pre- and postprocedure blood pressures were stable. The patient | | | was given verbal as well as written followup instructions. The | | | patient reported some improvement in pain symptoms postprocedure. | | | Prior to the start of the procedure the following were performed or | | | verified including correct patien t identity, correct site and side | | | marked and visible, agreement on the procedure to be done, correct | | | patient positioning and accurate procedure consent form, and any | | | safety precautions based on clinical history and/or medications have | | | been addressed. I personally performed the procedure above. | | | Dictated Date/Time: 02/12/2011 19:19 Transcribed Date/Time: | | | 02/12/2011 20:23 Food Mixer Assembler: <Electronically Signed | | | by Moiz Raza MD> 02/17/11 7364 | | + + + + + | Procedure Note | + + | Santhosh, Rad Conversion - 09/16/2013 3:[address] [facility] | | Diagnostic Imaging Department [address] [place] [address] | | PROCEDURE: LEFT SUBSCAPULAR BURSA INJECTION ICD-9 code | | 719.41, shoulder pain. Mr. Amairani Tyler presents to the fluoroscopy suite for a | | fluoroscopically guided left subcapsular bursa injection as part of conservative | | management for posterior left shoulder pain and likely subscapular bursitis. After | | informed consent was obtained, the patient lay in a prone position on the fluoroscopy | | table. The area was identified under fluoroscopic guidance. The area was prepped and | | draped in a sterile fashion. A 25-gauge 1.5-inch needle was inserted into this region | | and approximately 3 mL of buffered 1% lidocaine was infused. Then a 22-gauge spinal | | needle was inserted under the medial border of the scapula using direct fluoroscopic | | visualization. Confirmation into the correct location was obtained with infusion of | | approximately 0.5 mL of Isovue contrast, which showed no vascular uptake and good flow | | in the subscapular bursa region. Then a combination of 1 mL of 1% lidocaine and 1 mL of | | 40 mg/mL Kenalog was infused. The patient tolerated the procedure without | | complications. Pre- and postprocedure blood pressures were stable. The patient was | | given verbal as well as written followup instructions. The patient reported some | | improvement in pain symptoms postprocedure. Prior to the start of the procedure the | | following were performed or verified including correct patient identity, correct site | | and side marked and visible, agreement on the procedure to be done, correct patient | | positioning and accurate procedure consent form, and any safety precautions based on | | clinical history and/or medications have been addressed. I personally performed the | | procedure above. Dictated Date/Time: 02/12/2011 19:19Transcribed Date/Time: | | 02/12/2011 20:23Transcriptionist: <Electronically Signed by Moiz Raza MD> | | 02/17/111653 | |patient positioning and accurate procedure consent form, and any safety precautions based o n clinical | | history and/or medications have been addressed. | | | |I personally performed the procedure above. | | | |Dictated Date/Time: 02/12/2011 19:19 | |Transcribed Date/Time: 02/12/2011 20:23 | |Food Mixer Assembler: | |<Electronically Signed by Moiz Raza MD> 02/17/11 165 | + + + +---------+ + + | Performing | Address | City/State/Zipcode | Phone Number | | Organization | | | | + +---------+ + + | [place] | | | | | [facility] | | | | + +---------+ + + documented in this encounter Visit Diagnoses Not on filedocumented in this encounter"
--- OUTSIDE RECORDS SUMMARY | ~2019-07-14 | XMS | Encounter Summary ---
Demographics + + + | Address | [address] | | | [place] [address] | + + + | Home Phone [...] + + | Author | [place] [facility] | + + + | Organization | [facility] | + + + | Address | Unknown | + + + | Phone | Unavailable | + + + Support + + +---------+ + | Name | Relationship | Address | Phone | + + +---------+ + | Alexandria Dixon | ECON | Unknown | | + + +---------+ + Care Team Providers + +------+ + | Care Program Developer Name | Role | Phone | + +------+ + | No Pcp Per Patient | PCP | Unavailable | + +------+ + Encounter Details +--------+ + + + + | Date | Type | Department | Care Team | Description | +--------+ + + + + | 05/02/ | Furnace Process Plant Operator | Neurosurgery at | [place], | | | 2007 | | [facility] [address] | Cathie | | | | | [place] Mailcode: CH8N | DNP,PROMOTIONS MANAGER,[place] [address] | | | | | [facility] | [address] [place], | | | | | and Healing, | [place] [address] | | | | | [facility] | [phone] | | | | | Floor [place], [place] | | | | | | [address] | | | | | | [phone] | | | +--------+ + + + [...] Rd | | | | | | [place], [place] | | | | | | [address] | | | | | | [phone] | | | | | | | | +--------+---------+ + + + documented as of this encounter Visit Diagnoses Not on filedocumented in this encounter"
--- OUTSIDE RECORDS SUMMARY | ~2019-07-14 | XMS | Encounter Summary ---
Demographics + + + | Address | [address] | | | [place] [address] | + + + | Home Phone [...] + + + | Author | [place] [facility] | + + + | Organization | [facility] | [...] Team Providers + +------+ + | Care Pediatric Psychologist Name | Role | Phone | [...] Description | +--------+--------+ + + + | 08/27/ | Refill | Neurosurgery at | [place], | Refill Request | | 2017 | | [facility] [address] | Cathie | | | | | [place] Mailcode: CH8N | DNP,GROUNDS WORKER,[place] [address] | | | | | [facility] | [address] [place], | | | | | and Healing, | [place] [address] | | | | | Building [address] | [phone] | | | | | [place], [place] | | | | | | [address] | | | | | | [phone] | | | +--------+--------+ + + + [...] Rd | | | | | | [place], [place] | | | | | | [address] | | | | | | [phone] | | | | | | | | +--------+---------+ + + + documented as of this encounter Visit Diagnoses Not on filedocumented in this encounter"
--- OUTSIDE RECORDS SUMMARY | ~2019-07-14 | XMS | Encounter Summary ---
Demographics + + + | Address | [address] | | | [place] [address] | + + + | Home Phone [...] + + + | Author | [place] [facility] | + + + | Organization | [facility] | + + + | Address | Unknown | + + + | Phone | Unavailable | + + + Support + + +---------+ + | Name | Relationship | Address | Phone | + + +---------+ + | Alexandria Dixon | ECON | Unknown | | + + +---------+ + Care Team Providers + +------+ + | Care Clerical Order Filler Name | Role | Phone | + [...] 2005 | Visit | [address] | [place] [address] | (Primary Dx); | | | | Rd Mailcode:OP14B | [address] | Chronic Sphenoidal | | | | [employer] | [place] [address] | Sinusitis | | | | [place], [place] | | | | | | [address] | | | | | | [phone] | | | +--------+---------+ + + + [...] end of the day. 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 No other complaints. OBJECTIVE: WDWN male, NAD, alert, appropriate. Neuro - CNII-XII intact, no dysmetria. ASSESSMENT: Post TPH with continued headaches PLAN: Advised on findings and recommendations Reassured pt Appt with ENT sinus specialist made for 05/15/06 @1400 Restart Avelox per ENT F/U in [facility] 6 mos Pt agreed with the above plan and will f/u as instructed. documented in this encou nter Plan of Treatment +--------+---------+ + + + | Date | Type | Specialty | Care Team | Description | +--------+---------+ + + + | 08/15/ | Office | Cardiology | Zuleika Hernandez, | | | 2019 | Visit | | [address] | | | | | | [address] | | | | | | [place], [place] | | | | | | [address] | | | | | | [phone] | | | | | | | | +--------+---------+ + + + documented as of this encounter Visit Diagnoses + + | Diagnosis | + + | Sphenoid sinusitis - Primary Chronic sphenoidal sinusitis | + + | Chronic sphenoidal sinusitis | + + documented in this encounter"
--- OUTSIDE RECORDS SUMMARY | ~2019-07-14 | XMS | Encounter Summary ---
Demographics + + + | Address | [address] | | | [place] [address] | + + + | Home Phone [...] + + + | Author | [place] [facility] | + + + | Organization | [facility] [...] Team Providers + +------+ + | Care Resources Representative Name | Role | Phone | [...] | adenoma | [address] | DNP,JET PIERCER OPERATOR,[place] | | | | | (HCC) | [address] | [address] | | | | | Procedures | [place], | Ave | | | | | [place] | [place] [address] | [place], [place] | | | | | OFFICE/OUTPT | Phone: | [address] | | | | | | [phone] | Phone: | | | | | VISIT,EST,LE | Fax: | [phone] | | | | | [address] [place] | [phone] | Fax: | | | | | OFFICE/OUTPT | | [phone] | | | | | | | | | | | | VISIT,EST,LE | | | | | | | [address] [place] | | | | | | | OFFICE/OUTPT | | | | | | | | | | | | | | VISIT,EST,LE | | | | | | | [address] [place] | | | | | | | OFFICE/OUTPT | | | | | | | | | | | | | | VISIT,EST,LE | | | | | | | [place] | | | | | | | [...] adenoma | | 2012 | Visit | [facility] [address] | Cathie | [facility] (Primary Dx) | | | | [place] Mailcode: CH8N | DNP,JET PIERCER OPERATOR,[place] [address] | | | | | [facility] | [address] [place], | | | | | [place], | [place] [address] | | | | | [place] [address] | [phone] | | | | | [place], [place] | | | | | | [address] | | | | | | [phone] | | | +--------+---------+ + + + [...] in this encounter Progress Notes Cathie Fields, SANIYA,JET PIERCER OPERATOR,[place] - 01/04/2013 2:06 PM PDTReason for visit. [...] a cardiac stent place 02/2011 after an CO. At this visit; Symptoms and Complaints: Hair [...] mths with labs TOMER MONTELONGO DNP, BECCA Clinical Trial Head [facility] [place] [address] [facility] [place] [address] documented in this encounter Plan of Treatment +--------+---------+ + + + | Date | Type | Specialty | Care Team | Description | +--------+---------+ + + + | 08/15/ | Office | Cardiology | Zuleika Hernandez, | | | 2019 | Visit | | [address] | | | | | | [address] | | | | | | [place], [place] | | | | | | [address] | | | | | | [phone] | | | | | | | [...] + | [facility] [facility] - | [address] | [place] [address] | | | [place] | | | [...] + | [facility] - | [address] | [place] [address] | | | [facility] | | | | + + + [...] + | [facility] - | [address] | [place] [address] | | | [facility] | | | | + + [...] + | [facility] - | [address] | [place] [address] | | | [place] | | | [...] | + + + + + | [facility] [facility] - | [address] | [place] [address] | | | [place] | | | [...] | | | LABORATORY | | | [facility] | | | SERVICES, | | | [...] the MDRD equation recommended by the | COSU | | National Kidney Disease Education Program. [...] | + + + + + | [facility] | [address] | [place] [address] | | | VITALY RANKIN | [address] | | | + + + + + documented in this encounter Visit Diagnoses + + | Diagnosis | + + | Pituitary adenoma (HCC) - Primary Benign neoplasm of pituitary gland and | | craniopharyngeal duct (pouch) | + + documented in this encounter"
--- OUTSIDE RECORDS SUMMARY | ~2019-07-14 | XMS | Encounter Summary ---
Demographics + + + | Address | [address] | | | [place] [address] | + + + | Home Phone [...] + + + | Author | [place] [employer] [facility] | + + + | Organization | Replaced By [facility] | + + + | Address | Unknown | + + + | Phone | Unavailable | + + + Support + + +---------+ + | Name | Relationship | Address | Phone | + + +---------+ + | Alexandria Dixon | ECON | Unknown | | + + +---------+ + Care Team Providers + +------+ + | Care Chemicals Distiller Name | Role | Phone | + [...] Description | +--------+--------+ + + + | 04/21/ | Refill | Neurosurgery at | Donnie, | Refill Request | | 2017 | | [facility] [address] | Cathie | | | | | [place] Mailcode: CH8N | DNP,FINISHING TRIMMER,[place] [address] | | | | | [facility] | [address] [place], | | | | | and Healing, | [place] [address] | | | | | Building 1 | [phone] | | | | | [place], [place] | | | | | | [address] | | | | | | [phone] | | | +--------+--------+ + + + [...] Rd | | | | | | [place], [place] | | | | | | [address] | | | | | | [phone] | | | | | | | | +--------+---------+ + + + documented as of this encounter Visit Diagnoses + + | Diagnosis | + + | Pituitary adenoma (HCC) - Primary Benign neoplasm of pituitary gland and | | craniopharyngeal duct (pouch) | + + | Panhypopituitarism (HCC) Panhypopituitarism | + + documented in this encounter"
--- OUTSIDE RECORDS SUMMARY | ~2019-07-14 | XMS | Encounter Summary ---
Demographics + + + | Address | [address] | | | [place] [address] | + + + | Home Phone [...] + + + | Author | [place] [employer] [facility] | + + + | Organization | [facility] | + [...] Providers + +------+ + | Care Business Technology Professor Name | Role | Phone | + +------+ + | Bernardo Pan | PCP | | + +------+ + Encounter Details +--------+ + + + + | Date | Type | Department | Care Team | Description | +--------+ + + + + | 09/01/ | Documentati | Neurosurgery at | Donnie, | | | 2017 | on | [facility] [address] | Cathie | | | | | [place] Mailcode: [id number] | DNP,CONTROLLER REPAIRER AND TESTER,[place] [address] | | | | | [facility] | [address] [place], | | | | | and Healing, | [place] [address] | | | | | [facility] | [phone] | | | | | Floor [place], [place] | | | | | | [address] | | | | | | [phone] | | | +--------+ + + + [...] | | | | | | [place], [place] | | | | | | [address] | | | | | | [phone] | | | | | | | | +--------+---------+ + + + documented as of this encounter Visit Diagnoses Not on filedocumented in this encounter"
--- OUTSIDE RECORDS SUMMARY | ~2019-07-14 | XMS | Encounter Summary ---
Demographics + + + | Address | [address] | | | [place] [address] | + + + | Home Phone [...] + + | Author | [place] [employer] [facility] | + + + | Organization | [facility] [...] Providers + +------+ + | Care Design Manager Name | Role | Phone | + +------+ + | No Pcp Per Patient | PCP | Unavailable | + +------+ + Encounter Details +--------+------+ + + + | Date | Type | Department | Care Team | Description | +--------+------+ + + + | 09/12/ | Lab | Laboratory at [facility] | | Pituitary Adenoma | | 2008 | | [address] | | ([facility]); 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[place], [place] | | Hormone Deficiency | | | | [address] | | ([facility]); Diabetes | | | | [phone] | | Insipidus ([facility]); | | | | | | Hypogonadism [...] | | 2019 | Visit | | [address] | | | | | | [address] | | | | | | [place], [place] | | | | | | [address] | | | | | | [phone] | | | | | | | [...] At | + + + | [facility] ([facility] Reggie | | | [place] [address] | | | [place] [address] | | + + + + + + + + | Performing | Address | City/State/Zipcode | Phone Number | | Organization | | | | + + + + + | [facility] | [address] | [place] [address] | | | LABORATORY | | | [...] change effective | | | 05/31/07 [facility] ([facility] [place] [address] [facility]) | | | [facility] [address] | | | [place] [address] | | + + + + + + + + | Performing | Address | City/State/Zipcode | Phone Number | | Organization | | | | + + + + + | [facility] | [address] | [place] [address] | | | LABORATORY | | | [...] Performed At | + + + | [id number] Estimated GFR > 60 mL/min/1.73 sq m if non- | [facility] | | Serbian [id number] Estimated GFR > 60 mL/min/1.73 sq m if | DEPARTMENT OF | | [place] GFR is estimated using the MDRD equation [...] + + + + + | [facility] DEPARTMENT OF | [address] | [place] [address] | | | PATHOLOGY | [address] | | | + + + + + | [facility] | [address] | [place] [address] | | | PATHOLOGY | [address] [...] change effective | | | 05/31/07 [facility] ([facility] [place] [address] [facility]) | | | [facility] [place] [address] | | | [place] [address] | | + + + + + + + + | Performing | Address | City/State/Zipcode | Phone Number | | Organization | | | | + + + + + | [facility] | [address] | [place] [address] | | | LABORATORY | | | [...]
--- OUTSIDE RECORDS SUMMARY | ~2019-07-14 | XMS | Encounter Summary ---
Demographics + + + | Address | [address] | | | [place] [address] | + + + | Home Phone [...] + + + | Author | [place] [employer] [facility] | + + + | Organization | [facility] | + + + | Address | Unknown | + + + | Phone | Unavailable | + + + Support + + +---------+ + | Name | Relationship | Address | Phone | + + +---------+ + | Alexandria Dixon | ECON | Unknown | | + + +---------+ + Care Team Providers + +------+ + | Care Sales Floor Team Leader Name | Role | Phone | + +------+ + | No Pcp Per Patient | PCP | Unavailable | + +------+ + Encounter Details +--------+ + + + + | Date | Type | Department | Care Team | Description | +--------+ + + + + | 09/29/ | Telephone | Neurosurgery at | Donnie, | | | 2008 | | [facility] [address] | Cathie | | | | | [place] Mailcode: CH8N | DNP,SLEEPING CAR SERVICE ATTENDANT,[place] [address] | | | | | [facility] | [address] [place], | | | | | and Healing, | [place] [address] | | | | | [facility] 1 | [phone] | | | | | [place], [place] | | | | | | [address] | | | | | | [phone] | | | +--------+ + + + [...] | | | | | | [place], [place] | | | | | | [address] | | | | | | [phone] | | | | | | | | +--------+---------+ + + + documented as of this encounter Visit Diagnoses Not on filedocumented in this encounter"
--- OUTSIDE RECORDS SUMMARY | ~2019-07-14 | XMS | Encounter Summary ---
Demographics + + + | Address | [address] | | | [place] [address] | + + + | Home Phone [...] + + + | Author | [place] [employer] [facility] | + + + | Organization | [facility] | + [...] Team Providers + +------+ + | Care Wooden Tank Erector Name | Role | Phone | + [...] Refill Request | | 2006 | | [facility] [address] | Cathie, | | | | | [place] Mailcode: CH8N | DNP,KIDNEY TRIMMER,[place] [address] | | | | | [facility] | [address] [place], | | | | | and [facility], | [place] [address] | | | | | [facility] | [phone] | | | | | Floor [place], [place] | | | | | | [address] | | | | | | [phone] | | | +--------+--------+ + + + [...] Rd | | | | | | [place], [place] | | | | | | [address] | | | | | | [phone] | | | | | | | | +--------+---------+ + + + documented as of this encounter Visit Diagnoses Not on filedocumented in this encounter"
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
--- OUTSIDE RECORDS SUMMARY | ~2019-07-14 | XMS | Encounter Summary ---
Demographics + + + | Address | [address] | | | [place] [address] | + + + | Home Phone [...] + + | Author | [place] [employer] [facility] | + + + | Organization | [facility] [...] Team Providers + +------+ + | Care Flat Polisher Name | Role | Phone | + +------+ + | Jinny Bergeron MD | PCP | | + +------+ + Encounter Details +--------+ + + + + | Date | Type | Department | Care Team | Description | +--------+ + + + + | 06/23/ | MyChart | Neurosurgery at | Donnie, | Growth Hormone | | 2016 | Encounter | [facility] [address] | Cathie | | | | | [place] Mailcode: CH8N | DNP,IN HOME NANNY,[place] [address] | | | | | [facility] | [address] [place], | | | | | and [place], | [place] [address] | | | | | [place] [address] | [phone] | | | | | [place], [place] | | | | | | [address] | | | | | | [phone] | | | +--------+ + + + [...] Rd | | | | | | [place], [place] | | | | | | [address] | | | | | | [phone] | | | | | | | | +--------+---------+ + + + documented as of this encounter Visit Diagnoses Not on filedocumented in this encounter"
--- OUTSIDE RECORDS SUMMARY | ~2019-07-14 | XMS | Encounter Summary ---
Demographics + + + | Address | [address] | | | [place] [address] | + + + | Home Phone [...] + + + | Author | [place] [employer] [facility] | + + + | Organization | [facility] | + + + | Address | Unknown | + + + | Phone | Unavailable | + + + Support + + +---------+ + | Name | Relationship | Address | Phone | + + +---------+ + | Alexandria Dixon | ECON | Unknown | | + + +---------+ + Care Team Providers + +------+ + | Care Machine Adjuster Leader Case Trim Name | Role | Phone | + +------+ + | No Pcp Per Patient | PCP | Unavailable | + +------+ + Reason for Visit + + + | Reason | Comments | + + + | Follow-up in | wrist pain | | outpatient clinic | | + + + Office Visit - E/M Services (Routine) +--------+--------+ + + + + | Status | Reason | Specialty | Diagnoses / | Referred By | Referred To | | | | | Procedures | Contact | Contact | +--------+--------+ + + + + | Closed | | Endocrinology | | Non-[facility] | Fleseriu, | | | | , Diabetes & | | Epic Dept | MD Jaclyn | | | | Metabolism | | | [address] | | | | | | | [address] | | | | | | | [place], | | | | | | | [place] | | | | | | | [address] | | | | | | | Phone: | | | | | | | [phone] | | | | | | | Fax: | | | | | | | [phone] | +--------+--------+ + + + + Encounter Details +--------+---------+ + + + | Date | Type | Department | Care Team | Description | +--------+---------+ + + + | 09/17/ | Office | Neurosurgery at | Mihaela, | Carpal Tunnel | | 2007 | Visit | [facility] [address] | MD Sanaz [address] | Syndrome (Primary | | | | Ave Mailcode: CH8N | [address] | Dx) | | | | [facility] | [place] [address] | | | | | and [place], | | | | | | [facility] | | | | | | [place], [place] | | | | | | [address] | | | | | | [phone] | | | +--------+---------+ + + + [...] + + + | Blood Pressure | 144/72 | 09/17/2007 9:31 AM | | | | | PST | | + + + + + | Pulse | 75 | 09/17/2007 9:31 AM | | | | | PST [...] + + + + | Weight | 118.8 kg (262 lb) | 09/17/2007 9:31 AM | | | | | PST | | + + + + + | Height | - | - | | + + + + + | Body Mass Index | 40.43 | 04/03/2006 2:01 PM | | | | | PDT | | + + + + + documented in this encounter Progress Notes Sanaz Chairez - 09/17/2007 10:33 AM PSTI saw and evaluated the patient. I agree wi th the findings and the plan of care as documented in the resident s note.Electronically s igned by Sanaz Chairez at 09/17/2007 10:33 AM Thony Ma Md - 09/17/2007 9:52 AM PSTS: Mr. Tyler is a 27 yom known to the neurosurgery dept. 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 He was sent back to the neurosurgery clinic by endocrinology for c/o bilat hand/wrist numbn ess and tingling brought about by any activity. This has been progressively worsening for a pprox 2 years and is worse in the R hand compared with the L, with numbness and pain startin g in the wrists and moving all the way up to just below the elbows. 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 He has no neck pain and n o numbness or tingling in his upper arms. He has seen multiple primary care physicians and tried splints without relief. O: Husky gentleman in NAD Awake, axo x 3; perrl, eomi, face symmetric, tongue ml 5/5 bilat delt, tricep, bicep, we, fa; 4/5 bilat air moving technician Sens decr to LT over bilat 5th fingers and middle fingers 2+DTR's in bilat UE's + Tinel's and Phalen's signs bilat No significant muscle atrophy in either hand. A/P: Bilat Carpal Tunnel syndrome - will arrange for EMG/NCV study and see back for possib le operative intervention if c/w neural compression. documented in this encounter Plan of Treatment +--------+---------+ + + + | Date | Type | Specialty | Care Team | Description | +--------+---------+ + + + | 08/15/ | Office | Cardiology | Zuleika Hernandez, | | | 2019 | Visit | | [address] | | | | | | [address] | | | | | | [place], [place] | | | | | | [address] | | | | | | [phone] | | | | | | | | +--------+---------+ + + + + + +--------+ + + | Name | Type | Priori | Associated Diagnoses | Order Schedule | | | | ty | | | + + +--------+ + + | EMG/NERVE CONDUCTION | Procedures | Routin | Carpal Tunnel | Ordered: 09/17/2007 | | STUDIES - NEUROLOGY | | e | Syndrome | | + + +--------+ + + documented as of this encounter Visit Diagnoses + + | Diagnosis | + + | Carpal tunnel syndrome - Primary | + + documented in this encounter"
--- OUTSIDE RECORDS SUMMARY | ~2019-07-14 | XMS | Encounter Summary ---
Demographics + + + | Address | [address] | | | [place] [address] | + + + | Home Phone [...] Team Providers + +------+ + | Care Trailer Body Assembler Name | Role | Phone | + +------+ + | No Pcp Per Patient | PCP | Unavailable | + +------+ + Encounter Details +--------+ + + + + | Date | Type | Department | Care Team | Description | +--------+ + + + + | 02/27/ | Office | | Note, Outpatient | [...] as of this encounter Progress Notes Interface, Store Team Member In - 03/04/2006 2:04 AM PDT [id number] TOREY TRIVEDI [id number] Clinic Date: 02/27/2006 Clinic: Pit[facility] Disease Clinic Reason for Visit: Amairani Tyler returns to Pituitary Clinic on February 27, 2006,complaining of more severe headache over the last several weeks and for review of pituitary symptoms and History of Present Illness: Amairani Tyler is a 25-year-old male with a 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 At this visit, he notes he has persistent frontal headache getting worsened over the last several months about 10 hours a day. They are probably 7 or 8 on a scale of 1 to 10. They are not positional, and they are mildly changing with Advil or Excedrin, and then they reappear. He is also complaining of new onset bile nausea. He had just 1 episode of vomiting, but that episode was in the context of some GI upset. He was started on growth hormone about [...] Genotropin MiniQuick, and his work interest and energy increased. He also says that he still has the increased thirst around the afternoon and also mild increased urination despite the fact that he is taking the DDAVP as prescribed. He was followed by his primary care doctor for increased blood sugars and also some history of increased blood pressure, but he does not have a diagnosis of diabetes yet. He continues to snore, and his partner, significant other, said that probably this is getting worse, even he does not have a diagnosis of sleep apnea. Exact date of onset of symptoms is unknown. Review of Systems: Negative other than stated above. Medications: Testosterone 5 mg daily, levothyroxine 175 mcg daily, hydrocortisone 20 mg q.a.m. and 10 mg q.p.m., DDAVP 0.4 mg nightly and 0.2 mg in the morning. Physical Examination: General: He is a mildly obese very nice gentleman. Vital Signs: Weight 276 with a height of 5 feet and 7-1/2 inches, blood pressure is 140/88, pulse 84, [...] phase of the brachial reflex. Laboratory Data: The patient had on December 2005, a growth hormone stimulation test that had a flat response to Gatorade and arginine. He started with a baseline of less than 0.1, and the maximum that he achieved was 0.3. The normal is in the range of between 5 and 10. Assessment and Plan: Amairani Tyler is a young pleasant gentleman with a history of macroadenoma status post surgery in September 2005 with panhypopituitarism and diabetes insipidus on all the medications replaced. His main complaint at this visit is severe headache that does not subside to a treatment with Excedrin and Advil apparently temporarily related to the injections of adrenotropin. We spent some time discussing again the growth hormone replacement treatment risks and benefits, and how we are going to titrate the growth hormone. His significant other had multiple questions which I answered to their satisfaction. I spent some time discussing again his symptoms mostly with respect to growth hormone replacement and treatment and concern for regrowth of tumor and long-term followup. Plan: Due to the severe headaches that the patient is complaining, we discussed that the best measure to find out if they are related to the growth hormone treatment is to stop for 2 weeks the growth hormone replacement and to keep daily a diary of symptoms related to the headaches. Then, he is supposed to call me and to restart the injections and again to keep the diary of the headaches. The patient was advised that if he has any severe headaches during this interval like one of the worst in his life or even more severe than before, he has to go to the emergency room and be evaluated. We also discussed all the side effects of growth hormone treatment of peripheral edema, arthralgia, carpal tunnel syndrome, paresthesia, and again worsening of glucose tolerance. The patient has family history of diabetes. He has problems with the blood sugar per the patient, and he is in the process of being worked up for diabetes. We discussed that he needs to try to lose some weight and also to exercise more in order to improve his insulin sensitivity, so he does not have problems due to replacement of growth hormone. We also discussed that very rare benign intracranial hypertension was reported but mostly in children due to growth hormone treatment. His funduscopic exam was normal, and I doubt that this is the cause of his headaches at this point. Testosterone, we will adjust testosterone replacement therapy pending current level of testosterone, and if dosage is changed, the patient will return in 6 weeks for followup level of testosterone. Followup with primary care physician. The patient will return to the primary care for followup of hypertension and also for followup of hyperglycemia, possible diabetes mellitus. We also discussed that if he has persistence of the symptoms, but to a lower degree, we can try and decrease the dose of adrenotropin. We are going to go probably with MiniQuick every other day at the beginning and then we will readjust. We will also do an imaging test when he comes back to make sure that this is not recurrent mass that is provoking the headache. I spent 40 minutes in evaluation of this patient with more than 50% in coordination of care and counseling. Jaclyn Crawford M.D. / [id number] / [id number] / [id number] / [id number] Electronically signed by Jaclyn Crawford 03-03-2006 06:25:11 PM documented i n this encounter Plan [...] Rd | | | | | | [place], [place] | | | | | | [address] | | | | | | [phone] | | | | | | | | +--------+---------+ + + + documented as of this encounter Visit Diagnoses Not on filedocumented in this encounter"
--- OUTSIDE RECORDS SUMMARY | ~2019-07-14 | XMS | Encounter Summary ---
Demographics + + + | Address | [address] | | | [place] [address] | + + + | Home Phone [...] + + + | Author | [place] [employer] [facility] | + + + | Organization | [facility] [...] Providers + +------+ + | Care Insulation Machine Operator Name | Role | Phone | + +------+ + | No Pcp Per Patient | PCP | Unavailable | + +------+ + Encounter Details +--------+ + + + + | Date | Type | Department | Care Team | Description | +--------+ + + + + | 05/02/ | Watch Band Assembler | Neurosurgery at | [place], | | | 2007 | | [facility] [address] | Cathie | | | | | [place] Mailcode: CH8N | DNP,ASSISTANT FITNESS MANAGER,[place] [address] | | | | | [facility] | [address] [place], | | | | | and Healing, | [place] [address] | | | | | [facility] | [phone] | | | | | Floor [place], [place] | | | | | | [address] | | | | | | [phone] | | | +--------+ + + + [...] Rd | | | | | | [place], [place] | | | | | | [address] | | | | | | [phone] | | | | | | | | +--------+---------+ + + + documented as of this encounter Visit Diagnoses Not on filedocumented in this encounter"
--- OUTSIDE RECORDS SUMMARY | ~2019-07-14 | XMS | Encounter Summary ---
Demographics + + + | Address | [address] | | | [place] [address] | + + + | Home Phone [...] + + + | Author | [place] [employer] [facility] | + + + | Organization | [facility] | + + + | Address | Unknown | + + + | Phone | Unavailable | + + + Support + + +---------+ + | Name | Relationship | Address | Phone | + + +---------+ + | Alexandria Dixon | ECON | Unknown | | + + +---------+ + Care Team Providers + +------+ + | Care Eap Counselor Name | Role | Phone | [...] | | | | | | | DNP,ASSISTANT WOMEN'S ROWING COACH,[place] | | | | | | | [address] | | | | | | | Ave | | | | | | | [place], [place] | | | | | | | [address] | | | | | | | Phone: | | | | | | | [phone] | | | | | | | Fax: | | | | | | | [phone] | +--------+--------+ + + + + Encounter Details +--------+---------+ + + + | Date | Type | Department | Care Team | Description | +--------+---------+ + + + | 06/01/ | Office | Neurosurgery at | Donnie, | Pituitary adenoma | | 2011 | Visit | [facility] [address] | Cathie, | ([facility]); Adrenal | | | | Ave Mailcode: CH8N | DNP,ASSISTANT WOMEN'S ROWING COACH,[place] [address] | insufficiency ([facility]) | | | | [facility] | Nura [address], | | | | | and [place], | [place] [address] | | | | | [place] [address] | [phone] | | | | | [place], [place] | | | | | | [address] | | | | | | [phone] | | | +--------+---------+ + + + [...] + + + | Blood Pressure | 123/80 | 06/01/2012 1:37 PM | | | | | PDT | | + + + + + | Pulse | 74 | 06/01/2012 1:37 PM | | | | | PDT | | + + + + + | Temperature | 37.2 C (98.9 F) | 06/01/2012 1:37 PM | | | | | [...] + + + + | Weight | 132.4 kg (291 lb | 06/01/2012 1:37 PM | | | | 14.4 oz) | PDT | | + + + + + | Height | - | - | | + + + + + | Body Mass Index | 44.38 | 12/05/2011 1:01 PM | | | | | PDT | | + + + + + documented in this encounter Progress Notes Cathie Fields, DNP,ASSISTANT WOMEN'S ROWING COACH,[place] - 06/01/2012 2:12 PM PDTReason for visit. Amairani Tyler retur [...] a cardiac stent place 02/2011 after an OK. At this visit; Symptoms and Complaints: Hair Loss (on head): Same (06/01/121357) Facial Hair (women-increase; men-decrease): Same (06/01/121357) Headache: Same (06/01/121357) Increase in space between teeth: Same (10/23/12 1358) Nasal dripping or salty taste in mouth: Same (06/01/12 1358) Facial rounding: Same (06/01/12 1358) Facial redness: Worse (06/01/12 1358) Acne: Same (06/01/12 1358) Hump on back of neck: Same (06/01/12 1358) Fat filling around collar bones: Same (06/01/12 1358) Blurry Vision, intermittent: Same (06/01/12 1358) Constipation: Same (06/01/12 1358) Diarrhea: Same (06/01/12 1358) Breast tenderness (men): Same (06/01/12 1358) Breast enlargement (men): Same (06/01/12 1358) Breast discharge: Same (06/01/12 1358) Belly discomfort: Same (06/01/12 1358) Nausea: Same (06/01/12 1358) Vomiting: Same (06/01/12 1358) Dry skin: Same (06/01/12 1358) Oily skin: Same (06/01/12 1358) Skin tags: Same (06/01/12 1358) Dark patches of skin under arms: Same (06/01/12 1358) Easy bruising: Same (06/01/12 1358) Thin skin: Same (06/01/12 1358) Stretch morse: Same (06/01/12 1358) Rash: Same (06/01/12 1358) Temperature fluctuations: Worse (06/01/12 1358) Weight change: Same (06/01/12 1358) Weight gain mostly around midsection: Same (06/01/12 1358) Poor wound healing: Same (06/01/12 1358) Hot flashes: Worse (06/01/12 1358) Night sweats: Same (06/01/12 1358) Decreased sexual interest: Same (06/01/12 1358) Menstrual irregularities: Same (06/01/12 1358) Increased thirst: Same (06/01/12 1358) Increased urination: Same (06/01/12 1358) Increased hunger: Same (06/01/12 1358) Acid Reflux/Heartburn: Same (10/23/12 1358) Heart racing or pounding: Same (06/01/121357) Fractures / Height loss: Same (06/01/121357) Chest pain: Same (06/01/121357) Blood in stool: Same (06/01/121357) Blood in urine: Same (06/01/121357) Blood in phlegm: Same (06/01/121357) Shortness of breath: Same (06/01/121357) Wheezing: Same (06/01/121357) Blood sugar: Same (06/01/121357) Blood pressure: Same (06/01/121357) Sleep apnea (snoring): Same (06/01/121357) Lipids (high): Same (06/01/121357) Weakness: Same (06/01/121357) Swelling / edema : Same (06/01/121357) Brittle fingernails: Same (06/01/121357) Joint aches: Same (06/01/121357) Tremor: Same (06/01/121357) Cramping: Same (06/01/121357) Increase in size of hands: Same (06/01/121357) Increase in size of feet: Same (06/01/121357) Hand / finger numbness (carpal tunnel syndrome): Same (06/01/121357) Memory problems: Same (06/01/121357) Poor concentration: Same (06/01/121357) Sleep disturbances: Same (06/01/121357) Fatigue: Same (06/01/121357) Anxiety: Same (06/01/121357) Depression: Same (06/01/121357) Emotional ups and downs: Same (06/01/121357) Feelings of social isolation: Same (06/01/121357) Seizures: Same (06/01/121357) Fainting spells: Same (06/01/121357) Dizziness with standing: Same (06/01/121357) weight loss still labile. Has started a new job. Facial flushing wasn't taking testosterone but has been using it regularly x 2 weeks ? Sexu al function poor. No sig fatigue Has some back pain that disturbs his sleep that has been worse over the last few days No injuries over the last 6 mths B/p monitored and stable No chest pain and no shortness of breath Continues to be tx with narcotics for back pain Uses CPAP more regularly- has new machine No visual changes some blurriness with fatigue Mood stable. Headaches every couple of days - takes a nap to tx No polyuria or polydipsia no nocturia Exact date of onset of symptoms is unknown Review of systems negative other than as stated above. Physical Exam: Blood pressure 123/80, pulse 74, temperature 37.2 C (98.9 F), temperature source Forehe ad, weight 132.405 kg (291 lb 14.4 oz). General: A pleasant man who looks [...] difficulty taking all medications. He repor ts improved compliance with hydrocortisone and no episodes of SYED or injuries requiring incr eased doses over the last 6 months. . He has some increase in hot flashes and poor sexual f unction but this is likely related to his intermittent Use of testosterone. We discussed his increased risk of bone fractures and particularly given his activity level. No indicati ons of other endocrinopathies at this visit. I answered pt and partner's questions to thei r satisfaction. Plan 1. Adrenals. Pt will continue 20mg hydrocortisone daily. 2. Testosterone level pending. No change in dose is anticipated. Pt will continue daily d oses Consider Depot testosterone 3. Growth hormone. IGF-1 pending. No change in dose is anticipated. 4. Thyroid. TSH, FT4 pending. No change in dose is anticipated. 5. DI.Appears controlled. BMP pending. No change in DDAVp anticiapted. 6 Back pain- Pt was referred to Dr Tan for review of thoracic pain but has not followed u p. He was waiting to be contacted. Recommend he call to set up appt as recommended by Dr Jonathan leroy. 5. MRI at next visit in 6 mths with SUSTAINABILITY ENGINEER, RM labs I spent 30 minutes wqag-ky-pfsa time with this patient of which over 50% was spent in medic ally indicated counseling and education pertaining to the issues discussed above. TOMER MONTELONGO DNP, [place] Elevator Constructor [facility] [place] [address] [facility] [address] documented in this encounter Plan of Treatment [...] [place] | | | | | | [address] | | | | | | [phone] | | | | | | | | +--------+---------+ + + + documented as of this encounter Results INSULIN GROWTH FACTOR-1, SERUM [...] - | | | | | | [place] | | + +--------+ + + + + + | Specimen | + + | Blood - Blood | + + + + + + + | Performing | Address | City/State/Zipcode | Phone Number | | Organization | | | | + + + + + | [facility] | [address] | [place] [address] | | | [place] | | | | + + + [...] + | [facility] | [address] | [place] [address] | | | [facility] | | | | + + + [...] + | [facility] | [address] | [place] [address] | | | [place] | | | [...] + | [facility] | [address] | [place] [address] | | | [place] | | | [...] + | [facility] | [address] | [place] [address] | | | [place] | | | [...] | | | LABORATORY | | | [employer] | | | SERVICES, | | | [...] | + + + + + | [facility] [employer] | [address] | [place] [address] | | | [facility] | | | | | HEALTH [...]
--- OUTSIDE RECORDS SUMMARY | ~2019-07-14 | XMS | Encounter Summary ---
Demographics + + + | Address | [address] | | | [place] [address] | + + + | Home Phone [...] + + + | Author | [place] [employer] [facility] | + + + | Organization | [facility] | [...] Team Providers + +------+ + | Care Assistant Oceanographer Name | Role | Phone | + [...] Refill Request | | 2017 | | [facility] [address] | Cathie | | | | | [place] Mailcode: CH8N | DNP,STAFF CLIMATE SCIENTIST,[place] [address] | | | | | [facility] | [address] [place], | | | | | and Healing, | [place] [address] | | | | | Building [address] | [phone] | | | | | [place], [place] | | | | | | [address] | | | | | | [phone] | | | +--------+--------+ + + + [...] Rd | | | | | | [place], [place] | | | | | | [address] | | | | | | [phone] | | | | | | | | +--------+---------+ + + + documented as of this encounter Visit Diagnoses Not on filedocumented in this encounter"
--- OUTSIDE RECORDS SUMMARY | ~2019-07-14 | XMS | Encounter Summary ---
Demographics + + + | Address | [address] | | | [place] [address] | + + + | Home Phone [...] + + + | Author | [place] [employer] [facility] | + + + | Organization | [facility] [...] Team Providers + +------+ + | Care Dental Patient Coordinator Name | Role | Phone | [...] Question | | 2017 | | at [facility] [address] | [address] | ( regarding CTA | | | | [address] Mailcode: | [address] | appointment) | | | | [address] for | [place], [place] | | | | | Health and Healing, | [address] | | | | | [facility] | [phone] | | | | | floor [place], [place] | | | | | | [address] | | | | | | [phone] | | | +--------+ + + + [...] | | | | | | [place] | | | | | | [address] | | | | | | [phone] | | | | | | | | +--------+---------+ + + + documented as of this encounter Visit Diagnoses Not on filedocumented in this encounter"
--- OUTSIDE RECORDS SUMMARY | ~2019-07-14 | XMS | Encounter Summary ---
Demographics + + + | Address | [address] | | | [place] [address] | + + + | Home Phone [...] + + | Author | [place] [employer] [facility] | + + + | Organization | [facility] | [...] Team Providers + +------+ + | Care Turf Grower Name | Role | Phone | + +------+ + | Jhonny Rodriguez DO | PCP | | + +------+ + Encounter Details +--------+ + + + + | Date | Type | Department | Care Team | Description | +--------+ + + + + | 08/04/ | MyChart | Neurosurgery at | Donnie, | RE: testosterone | | 2011 | Encounter | [facility] [address] | Cathie | | | | | [place] Mailcode: CH8N | DNP,HUMAN RESOURCES EXECUTIVE,[place] [address] | | | | | [facility] | [address] [place], | | | | | and [place], | [place] [address] | | | | | [facility] [address] | [phone] | | | | | [place], [place] | | | | | | [address] | | | | | | [phone] | | | +--------+ + + + [...] | | 2019 | Visit | | [address] | | | | | | [address] | | | | | | [place], [place] | | | | | | [address] | | | | | | [phone] | | | | | | | | +--------+---------+ + + + documented as of this encounter Visit Diagnoses Not on filedocumented in this encounter"
--- OUTSIDE RECORDS SUMMARY | ~2019-07-14 | XMS | Encounter Summary ---
Demographics + + + | Address | [address] | | | [place] [address] | + + + | Home Phone [...] + + + | Author | [place] [employer] [facility] | + + + | Organization | [facility] [...] Providers + +------+ + | Care Inspector Coated Fabrics Name | Role | Phone | + [...] | +--------+ + + + + | 01/25/ | Telephone | Neurosurgery at | Donnie, | Refill Request | | 2012 | | [facility] [address] | Cathie, | | | | | [place] Mailcode: CH8N | DNP,EMERGENCY SPECIALIST,[place] [address] | | | | | [facility] | [address] [place], | | | | | and Healing, | [place] [address] | | | | | Building [address] | [phone] | | | | | [place], [place] | | | | | | [address] | | | | | | [phone] | | | +--------+ + + + [...] Rd | | | | | | [place], [place] | | | | | | [address] | | | | | | [phone] | | | | | | | [...]
--- OUTSIDE RECORDS SUMMARY | ~2019-07-14 | XMS | Encounter Summary ---
Demographics + + + | Address | [address] | | | [place] [address] | + + + | Home Phone [...] Author | [facility] | | | and [place] | + + + | Organization | [facility] | | | and [place] [...] Team Providers + +------+ + | Care Cue Selector Name | Role | Phone | + [...] | Specialty | Otolaryngolog | Diagnoses | [place], | Mckay Zafar | | | Services | y | Nasal | Sumanth Gracia, BRETT | MD Josef [address] | | | Required | | congestion | [address] | [address] | | | | | | [address] [place] | [address] | | | | | | [place], [place] | [place], | | | | | | [address] | [place] [address] | | | | | | Phone: | Phone: | | | | | | [phone] | [phone] | | | | | | Fax: | Fax: | | | | | | [phone] | [phone] | +--------+ + + + + + Encounter Details +--------+---------+ + + + | Date | Type | Department | Care Team | Description | +--------+---------+ + + + | 03/20/ | Office | [facility] [place] | Sumanth Champion PA | Deviated nasal | | 2016 | Visit | OTOLARYNGOLOGY [address] | [address] | septum (Primary Dx); | | | | [address] | [place], [place] | Hypertrophy of | | | | [place], [place] | [address] | nasal turbinates; | | | | [address] | | [place] (obstructive | | | | [phone] | Mckay Zafar MD | sleep apnea); | | | | | [address] [place] | Hypertrophy of | | | | | [address] [place], [place] | tonsils alone | | | | | [address] | | | | | | | [...] MD - 03/20/2016 8:46 AM PDT [facility] OTOLARY[facility]OLOGY [address] [facility] [address] OFFICE NOTE MCKAY ZAFAR MD Patient: FAROOQ LEMA Admitting: MR #: [id number] LOC: PT TYPE: Adm Date: 03/20/2016 : 1980 NEW PATIENT VISIT DATE OF VISIT: 03/20/2016 The patient comes in because of chronic nasal obstruction. He has had problems with obstr uctive sleep apnea. He uses a CPAP machine at night. In order to have the CPAP machine wor k, he has to use an lmxt-wrc-gwyhmpu nasal spray. He has had 2 small [...] if he does use t he Afrin xcsz-ohk-lzbksgq spray. EXAMINATION: GENERAL: Shows an alert 35-year-old [...] Transcribed on 03/20/2016 23:29:26 by kevin job# [id number] Confirmation #: [id number] cc: JINNY BERGERON MD a [facility], Mckay Bahena MD - 03/20/2016 8:41 AM PDTSee dictation #[id number] signed by Mckay Zafar MD at 03/20/2016 [...] [place] | | | | | | [address] | | | | | | | [...]
--- OUTSIDE RECORDS SUMMARY | ~2019-07-14 | XMS | Encounter Summary ---
Demographics + + + | Address | [address] | | | [place] [address] | + + + | Home Phone | | + + + | Preferred Language | Unknown | + + + | Marital Status | Single | + + + | Scientology Affiliation | Unknown | + + + | Race | Unknown | + + + | Ethnic Group | Unknown | + + + Author + + + | Author | [facility] | | | and [place] | + + + | Organization | [facility] | | | and [...] Providers + +------+ + | Care Customer Insight Analyst Name | Role | Phone | + +------+ + | Jinny Bergeron MD | PCP | | + +------+ + Reason for Referral Service/Procedure (Routine) +--------+--------+ + + + + | Status | Reason | Specialty | Diagnoses / | Referred By | Referred To | | | | | Procedures | Contact | Contact | +--------+--------+ + + + + | Closed | | Otolaryngolog | Diagnoses | De Leon, | De Leon, Mckay | | | | y | Deviated | Mckay E, MD | E, MD [address] | | | | | nasal septum | [address] | | | | | | [address] | [address] | | | | | Hypertrophy | [place], | | | | | of nasal | [place], [place] | [place] [address] | | | | | turbinates | [address] | Phone: | | | | | MALLIKA | Phone: | [phone] | | | | | (obstructive | [phone] | Fax: | | | | | sleep | Fax: | [phone] | | | | | apnea) | [phone] | | | | | | Hypertrophy | | | | | | | of tonsils | | | | | | | alone | | | | | | | Procedures | | | | | | | CA REPAIR OF | | | | | | | NASAL | | | | | | | SEPTUM CA | | | | | | | EXCISION | | | | | | | TURBINATE,DAMIAN | | | | | | | BMUCOUS | | | +--------+--------+ + + + + Encounter Details +--------+ + + + + | Date | Type | Department | Care Team | Description | +--------+ + + + + | 03/24/ | Orders Only | [facility] | Mckay De Leon MD | Deviated nasal | | 2016 | | OTOLARYNGOLOGY [address] | [address] [place] | septum (Primary Dx); | | | | [address] | [address] [place], | Hypertrophy of | | | | [place], [place] | [place] [address] | nasal turbinates; | | | | [address] | [phone] | Obstructive sleep | | | | [phone] | | apnea (adult) | | | | | | (pediatric); MALLIKA | | | | | | (obstructive sleep | | | | | | apnea); Hypertrophy | | | | | | of tonsils alone | +--------+ + + + + Social [...] [place] | | | | | | [address] | | | | | | | | +--------+---------+ + + + + + +--------+ + + | Name | Type | Priori | Associated Diagnoses | Order Schedule | | | | ty | | | + + +--------+ + + | Ambulatory referral | Outpatient | Routin | Deviated nasal | Ordered: 03/24/2016 | | to [facility] | Referral | e | septum Hypertrophy | | | | | | of nasal turbinates | | | | | | M[place]IKA (obstructive | | | | | | sleep apnea) | | | | | | Hypertrophy of | | | | | | tonsils alone | | + + +--------+ + + documented as of this encounter Visit Diagnoses + + | Diagnosis | + + | Deviated nasal septum - Primary | + + | Hypertrophy of nasal turbinates | + + | Obstructive sleep apnea (adult) (pediatric) | + + | MALLIKA (obstructive sleep apnea) Obstructive sleep apnea (adult) (pediatric) | + + | Hypertrophy of tonsils alone | + + documented in this encounter"
--- OUTSIDE RECORDS SUMMARY | ~2019-07-14 | XMS | Encounter Summary ---
Demographics + + + | Address | [address] | | | [place] [address] | + + + | Home Phone [...] + + + | Author | [facility] | + + + | Organization | [facility] [...] Providers + +------+ + | Care Roll Dough Divider Name | Role | Phone | + [...] Description | +--------+--------+ + + + | 05/29/ | Refill | Neurosurgery at | Donnie, | Refill Request | | 2010 | | [facility] [address] | [place], | | | | | [place] Mailcode: CH8N | DNP,SHERIFF'S SERGEANT,[place] [address] | | | | | [facility] | [address] [place], | | | | | and [facility], | [place] [address] | | | | | Building [address] | [phone] | | | | | [place], [place] | | | | | | [address] | | | | | | [phone] | | | +--------+--------+ + + + [...] | | 2019 | Visit | | [address] | | | | | | [address] | | | | | | [place], [place] | | | | | | [address] | | | | | | [phone] | | | | | | | | +--------+---------+ + + + documented as of this encounter Visit Diagnoses Not on filedocumented in this encounter"
--- OUTSIDE RECORDS SUMMARY | ~2019-07-14 | XMS | Encounter Summary ---
Demographics + + + | Address | [address] | | | [place] [address] | + + + | Home Phone [...] + + + | Author | [place] [employer] [facility] | + + + | Organization | [facility] | + + + | Address | Unknown | + + + | Phone | Unavailable | + + + Support + + +---------+ + | Name | Relationship | Address | Phone | + + +---------+ + | Alexandria Dixon | ECON | Unknown | | + + +---------+ + Care Team Providers + +------+ + | Care Counter Server Name | Role | Phone | + [...] as of this encounter Progress Notes Interface, Patient Access Coordinator In - 09/07/2005 2:04 AM [facility] [id number] TOREY TRIVEDI V Clinic Date: 08/22/2005 Clinic: Pituitary Clinic Reason for Visit: Amairani Connolly is a 24-year-old male who presented to the Pituitary Clinic on August 22, 2005, for consultation of a low-dose Cortrosyn stimulation test. This has been staffed by Dr. Lb Guillaume. Procedure Note: I spent a total of 60 minutes epgj-cm-uopf time in this visit of which over [...] Shruti Landa. Lb Guillaume M.D., Ph.D. / [id number] / [id number] / [id number] / [id number] Electronically signed by Lb Guillaume (Bill) 09-06-2005 [...] [address] | | | | | | [facility], [place] | | | | | | [address] | | | | | | [phone] | | | | | | | | +--------+---------+ + + + documented as of this encounter Visit Diagnoses Not on filedocumented in this encounter"
--- OUTSIDE RECORDS SUMMARY | ~2019-07-14 | XMS | Encounter Summary ---
Demographics + + + | Address | [address] | | | [place] [address] | + + + | Home Phone [...] + + + | Author | [place] [employer] [facility] [...] Team Providers + +------+ + | Care Photo Booth Operator Name | Role | Phone | [...] Refill Request | | 2009 | | [facility] [address] | [place], | | | | | [place] Mailcode: CH8N | DNP,STEM CRUSHER,[place] [address] | | | | | [facility] | [address] [place], | | | | | and [facility], | [place] [address] | | | | | Building [address] | [phone] | | | | | [place], [place] | | | | | | [address] | | | | | | [phone] | | | +--------+--------+ + + + [...] Rd | | | | | | [place], [place] | | | | | | [address] | | | | | | [phone] | | | | | | | | +--------+---------+ + + + documented as of this encounter Visit Diagnoses Not on filedocumented in this encounter"
--- OUTSIDE RECORDS SUMMARY | ~2019-07-14 | XMS | Encounter Summary ---
Demographics + + + | Address | [address] | | | [place] [address] | + + + | Home Phone [...] + + + | Author | [place] [employer] [facility] | + + + | Organization | [facility] [...] Team Providers + +------+ + | Care Research Subject Name | Role | Phone | + [...] [facility] [address] | [place], | ([facility]); 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Ave Mailcode: CH8N | DNP,CHAIN REPAIRER,[place] [address] | Hormone Deficiency | | | | [place] for [facility] | [address] [place], | ([facility]); Diabetes | | | | and [facility], | [place] [address] | Insipidus ([facility]); | | | | [address] | [phone] | Hypogonadism Male; | | | | [place], [place] | | Hypothyroid; Adrenal | | | | [address]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 ([facility]) | | | | [phone] | | | +--------+ + + + [...] | | 2019 | Visit | | [address] | | | | | | [address] | | | | | | [place], [place] | | | | | | [address] | | | | | | [phone] | | | | | | | [...] + + + | [facility] | [address] | [place] [address] | | | LABORATORY | | | [...] RLB ([address] [facility]) | | | [facility] [place] [address] | | | [place] [address] | | + + + + + + + + | Performing | Address | City/State/Zipcode | Phone Number | | Organization | | | | + + + + + | [facility] | [address] | [place] [address] | | | LABORATORY | | | [...] | | | [facility] ([facility] [facility]) [facility] [place] | | | [address] [facility], | | | [place] [address] | | + + + + + + + + | Performing | Address | City/State/Zipcode | Phone Number | | Organization | | | | + + + + + | [facility] | [address] | [place] [address] | | | LABORATORY | | | [...] R[facility] ([address] [facility]) | | | [facility] [place] [address] [facility] | | | [place] [address] | | + + + + + + + + | Performing | Address | City/State/Zipcode | Phone Number | | Organization | | | | + + + + + | [facility] | [address] | [place] [address] | | | LABORATORY | | | [...] Performed At | + + + | [id number] Estimated GFR > 60 mL/min/1.73 sq m if non- | [facility] | | [id number] Estimated GFR > 60 mL/min/1.73 sq m [...] | + + + + + | [facility] | [address] | [place] [address] | | | PATHOLOGY | [address] | | | + + + + + | [facility] | [address] | [place] [address] | | | PATHOLOGY | [address] [...]
--- OUTSIDE RECORDS SUMMARY | ~2019-07-14 | XMS | Encounter Summary ---
Demographics + + + | Address | [address] | | | [place] [address] | [...] + + + | Author | [place] [employer] [facility] | + + + | Organization | [facility] [...] Team Providers + +------+ + | Care Court Security Officer Name | Role | Phone | [...] Refill Request | | 2014 | | [facility] [address] | [place], | | | | | [place] Mailcode: CH8N | DNP,INFORMATION SYSTEMS SUPERVISOR,[place] [address] | | | | | [facility] | [address] [place], | | | | | and Healing, | [place] [address] | | | | | Building [address] | [phone] | | | | | [place], [place] | | | | | | [address] | | | | | | [phone] | | | +--------+--------+ + + + [...] Rd | | | | | | [place], [place] | | | | | | [address] | | | | | | [phone] | | | | | | | | +--------+---------+ + + + documented as of this encounter Visit Diagnoses Not on filedocumented in this encounter"
--- OUTSIDE RECORDS SUMMARY | ~2019-07-14 | XMS | Encounter Summary ---
Demographics + + + | Address | [address] | | | [place] [address] | + + + | Home Phone [...] + + + | Author | [place] [employer] [facility] | + + + | Organization | [facility] | + + + | Address | Unknown | + + + | Phone | Unavailable | + + + Support + + +---------+ + | Name | Relationship | Address | Phone | + + +---------+ + | Alexandria Dixon | ECON | Unknown | | + + +---------+ + Care Team Providers + +------+ + | Care Plate Stacker Name | Role | Phone | + +------+ + | rPiscilla Ramírez PA-C | PCP | | + +------+ + Reason for Visit + + + | Reason | Comments | + + + | Return Patient | | + + + Office Visit - E/M Services (Routine) + +--------+ + + + + | Status | Reason | Specialty | Diagnoses / | Referred By | Referred To | | | | | Procedures | Contact | Contact | + +--------+ + + + + | Authorized | | Neurological | Diagnoses | Viviane, | Donnie, | | | | Surgery | | Bernardo Flores | Cathie, | | | | | Hypopituitar | [place] | DNP,HOT PUNCH PRESS OPERATOR,[place] | | | | | ism Benign | FALSE PASS | [address] | | | | | neoplasm of | HEALTH | Ave | | | | | pituitary | CENTER | [place], [place] | | | | | gland | [address] | [address] | | | | | Diabetes | [facility] | Phone: | | | | | insipidus | [address] | [phone] | | | | | 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: | | | | | hypofunction | [place], | [phone] | | | | | | [place] [address] | | | | | | Hypothyroidi | Phone: | | | | | | sm, | [phone] | | | | | | unspecified | Fax: | | | | | | Unspecified | [phone] | | | | | | | | | | | | | adrenocortic | | | | | | | al | | | | | | | insufficienc | | | | | | | y | | | | | | | Procedures | | | | | | | MA EST | | | | | | | PATIENT | | | | | | | LEVEL V MA | | | | | | | THR/PRPH/DX | | | | | | | INJ,IV PSH | | | | | | | MA INJ | | | | | | | COSYNTROPIN | | | | | | | PER 0.25MG | | | + +--------+ + + + + Encounter Details +--------+---------+ + + + | Date | Type | Department | Care Team | Description | +--------+---------+ + + + | 02/24/ | Office | Neurosurgery at | [place], | Panhypopituitarism | | 2019 | Visit | [facility] [address] | Cathie, | ([facility]) (Primary Dx); | | | | Ave Mail[address]: [address] | DNP,HOT PUNCH PRESS OPERATOR,[place] [address] | Pituitary adenoma | | | | [facility] | Nura Blackwell [place] | ([facility]) | | | | and Healing, | [place] [address] | | | | | [place] [address] | [phone] | | | | | [place], [place] | | | | | | [address] | | | | | | [phone] | | | +--------+---------+ + + + [...] + + + | Blood Pressure | 124/76 | 02/24/2019 9:09 AM | | | | | PDT | | + + + + + | Pulse | 72 | 02/24/2019 9:09 AM | | | | | PDT | | + + + + + | Temperature | 36.9 C (98.5 F) | 02/24/2019 9:09 AM | | | | | PDT [...] + + + + | Weight | 123.9 kg (273 lb 1.6 | 02/24/2019 9:09 AM | | | | oz) | PDT | | + + + + + | Height | 172.7 cm (5' 8") | 02/24/2019 9:09 AM | | | | | PDT | | + + + + + | Body Mass Index | 41.52 | 02/24/2019 9:09 AM | | | | | PDT | | + + + + + documented in this encounter Progress Notes Cathie Fields, SANIYA,HOT PUNCH PRESS OPERATOR,[place] - 02/24/2019 9:00 AM PDTFormatting of this note might be di fferent from the original. Reason for visit. Amairani Tyler returns to pituitary clinic for interval review of pituitary symptoms and titration of hormone replacement. 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 Reuben Styles. He had a cardiac stent place 02/2011 after a n CA. Had further episode of CP 04/26 with a second stent placement At this visit; Symptoms and Complaints: Headaches x 2-3/month 02/16 resolve with sleep uses pain med for othr pain HC now 25mg daily no dizziness, nausea ddavp 11/2 tab am and 2 tabs HS. No nocturia Has new CPAP uses regularly Fatigued Some depression related to social issues seeing counselor Weight stable H/o Borderline high BSL now improved 5.9 Weakness in all extemities Depot testosterone last 02/17/19 every 2 weeks. No visual deficit Is better doing GH injections Missing some Sexual function ok back pain persists B/p better and more stable Taking Thyroid regularly Trouble getting to sleep. Sleeps ok Still feels hot a lot of the time Hot flashes and some night sweats. Feels hot most of the time. No CTS sympotms Exact date of onset of symptoms is unknown Review of systems negative other than as stated above. Physical Exam: Blood pressure 124/76, pulse 72, temperature 36.9 C (98.5 F), height 1.727 m (5' 8"), w eight 123.9 kg (273 lb 1.6 oz). General: A pleasant man [...] the brachial reflex. LABS BMP,IGF-1, TSH, Free T4,, Prolactin pending Component Latest Ref Rng & Units 02/18/2018 02/18/2018 02/18/2018 02/18/2018 9:52 AM 9:52 AM 9:52 AM 9:52 AM GLUCOSE, PLASMA (LAB) 70 - 99 mg/dL 130 (H) BUN, PLASMA (LAB) 6 - 20 mg/dL 14 CREATININE PLASMA (LAB) 0.70 - 1.30 mg/dL 1.07 EGFR - GHANAIAN >60 mL/min >60 EGFR NON -GHANAIAN >60 mL/min >60 SODIUM, PLASMA (LAB) 136 - 145 mmol/L 141 POTASSIUM, PLASMA (LAB) 3.4 - 5.0 mmol/L 4.4 CHLORIDE, PLASMA (LAB) 97 - 108 mmol/L 105 TOTAL CO2, PLASMA (LAB) 21 - 32 mmol/L 28 CALCIUM, PLASMA (LAB) 8.6 - 10.2 mg/dL 8.8 ANION GAP 4 - 11 mmol/L 8 POTASSIUM CMNT No Hemo IGF-1 83 - 238 ng/mL IGF-1 Z-SCORE PROLACTIN 2.1 - 17.7 ng/ml 6.2 FREE T4, SERUM 0.6 - 1.2 ng/dL 1.2 TSH 0.39 - 4.17 mIU/L 0.97 VITAMIN D 25 HYDROXY 30 - 80 ng/mL Component Latest Ref Rng & Units 02/18/2018 02/18/2018 9:52 AM 9:52 AM GLUCOSE, PLASMA (LAB) 70 - 99 mg/dL BUN, PLASMA (LAB) 6 - 20 mg/dL CREATININE PLASMA (LAB) 0.70 - 1.30 mg/dL EGFR - GHANAIAN >60 mL/min EGFR NON -GHANAIAN >60 mL/min SODIUM, PLASMA (LAB) 136 - 145 mmol/L POTASSIUM, PLASMA (LAB) 3.4 - 5.0 mmol/L CHLORIDE, PLASMA (LAB) 97 - 108 mmol/L TOTAL CO2, PLASMA (LAB) 21 - 32 mmol/L CALCIUM, PLASMA (LAB) 8.6 - 10.2 mg/dL ANION GAP 4 - 11 mmol/L POTASSIUM CMNT IGF-1 83 - 238 ng/mL 103 IGF-1 Z-SCORE -1.5 PROLACTIN 2.1 - 17.7 ng/ml FREE T4, SERUM 0.6 - 1.2 ng/dL TSH 0.39 - 4.17 mIU/L VITAMIN D 25 HYDROXY 30 - 80 ng/mL 26.2 (L) Assessment and discussion: Amairani Tyler is a 37yo male with 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 He underwent cardiac stenting after MRI 02/13 with recurrent CP and LAD stent placement 06/2017. Pt stable and continues to follow with gate watchman. He reports taking meds more regularly and no further injuries in last 6 mths. He is unable to work currently and is pending disabi lity approval. He is currently depressed associated with his social conditions and social is sues. He denies suicidal ideation currently and is working with a MH counselor locally. John l check all pituitary fx. VF are normal to confrontation. We reviewed MRI that appears stable compared to previous imaging 07/2015 I answered pt questions to his satisfaction. Plan 1. Adrenals. Pt will continue 20- 25mg hydrocortisone daily. He is reminded to take ER st eroids up to 40mg extra for illness, injury, fever, vomiting from any cause. 2. Testosterone level pending- trough level. Doing well on depot testosterone. He will fol low this with PCP and reports regular follow up 3. Growth hormone. IGF-1 pending. Pt is GH deficient. He has been using GH more regularl y by report 4. Thyroid. TSH, FT4 pending. NO change in dose is anticipated 5. DI.controlled. BMP pending. No change in DDAVp anticiapted. 6. Vitamin D insufficiency. Level pending. Pt reports taking med more frequently - D3 3,0 00IU daily 7. Pt will follow HA1c locally 8. Follow up with cardiology locally 9. Follow up in 6 mths 07/28. With labs CATHIE FIELDS DNP, HOT PUNCH PRESS OPERATOR, [place] [employer] [facility] [address] [place] [id number] EXAM: MRI PITUITARY WITHOUT AND WITH CONTRAST HISTORY: evaluate and compare. History of pituitary adenoma status post resection in 2005 COMPARISON: 07/13/2015 MRI TECHNIQUE: Multiplanar multi-sequence MRI tailored to the pituitary without and with gadoli nium based intravenous contrast: FINDINGS: SELLA AND PARASELLAR: The pituitary gland is similar in size and configuration to prior MRI . There is slight heterogeneous enhancement without apparent mass lesion. The infundibulum i s midline. Optic chiasm is normal. Parasellar structures are normal. BRAIN: Visualized portions are unremarkable. SOFT TISSUES AND MARROW: Postsurgical changes are seen within the bilateral posterior sphen oid sinuses and clivus from prior resection, with mucosal thickening of the sphenoid sinuses bilaterally, similar to prior MRI. IMPRESSION: Stable posttreatment appearance of the pituitary without new apparent mass lesion I have personally reviewed the images and, if necessary, edited the report. I agree with lianne bello report as now presented. Final signature: Jewell Hurd MD 02/24/2019 1:39 PM Preliminary: Bee Bal MD 02/24/2019 10:55 AM Dictation initiated: Bee Bal MD 02/24/2019 8:55 AM Component Latest Ref Rng & Units 02/24/2019 02/24/2019 02/24/2019 02/24/2019 9:37 AM 9:37 AM 9:37 AM 9:37 AM GLUCOSE, PLASMA (LAB) 70 - 99 mg/dL 166 (H) BUN, PLASMA (LAB) 6 - 20 mg/dL 12 CREATININE PLASMA (LAB) 0.70 - 1.30 mg/dL 0.90 EGFR - GHANAIAN >60 mL/min >60 EGFR NON -GHANAIAN >60 mL/min >60 SODIUM, PLASMA (LAB) 136 - 145 mmol/L 140 POTASSIUM, PLASMA (LAB) 3.4 - 5.0 mmol/L 3.7 CHLORIDE, PLASMA (LAB) 97 - 108 mmol/L 104 TOTAL CO2, PLASMA (LAB) 21 - 32 mmol/L 28 CALCIUM, PLASMA (LAB) 8.6 - 10.2 mg/dL 8.9 ANION GAP 4 - 11 mmol/L 8 POTASSIUM CMNT No Hemo IGF-1 83 - 238 ng/mL IGF-1 Z-SCORE FREE T4, SERUM 0.6 - 1.2 ng/dL 1.3 (H) PROLACTIN 2.1 - 17.7 ng/ml 4.5 TESTOSTERONE, ADULT MALE 300 - 1080 ng/dL TSH 0.44 - 4.75 mIU/L 0.48 VITAMIN D 25 HYDROXY 30 - 80 ng/mL Component Latest Ref Rng & Units 02/24/2019 02/24/2019 02/24/2019 9:37 AM 9:37 AM 9:37 AM GLUCOSE, PLASMA (LAB) 70 - 99 mg/dL BUN, PLASMA (LAB) 6 - 20 mg/dL CREATININE PLASMA (LAB) 0.70 - 1.30 mg/dL EGFR - GHANAIAN >60 mL/min EGFR NON -GHANAIAN >60 mL/min SODIUM, PLASMA (LAB) 136 - 145 mmol/L POTASSIUM, PLASMA (LAB) 3.4 - 5.0 mmol/L CHLORIDE, PLASMA (LAB) 97 - 108 mmol/L TOTAL CO2, PLASMA (LAB) 21 - 32 mmol/L CALCIUM, PLASMA (LAB) 8.6 - 10.2 mg/dL ANION GAP 4 - 11 mmol/L POTASSIUM CMNT IGF-1 83 - 238 ng/mL 123 IGF-1 Z-SCORE -0.8 FREE T4, SERUM 0.6 - 1.2 ng/dL PROLACTIN 2.1 - 17.7 ng/ml TESTOSTERONE, ADULT MALE 300 - 1080 ng/dL 349 TSH 0.44 - 4.75 mIU/L VITAMIN D 25 HYDROXY 30 - 80 ng/mL 36.7 1. Adrenals. Continue same dose of HC 2. Testosterone level OK Follow up PCP 3. Vitamin D level improved continue same dose of vit D3 4. IGF-1 OK no change in GH 5. Monitor BSL with PCP. 6. Follow up 07/28 with labs CATHIE FIELDS DNP, TOMER, BECCA [employer] [facility] [place] [address] [facility] [id number] signed by Cathie Fields DNP,TOMER,BECCA at 03/01/2019 11:43 AM PDTdocumented in this encounter Plan of Treatment +--------+---------+ + + + | Date | Type | Specialty | Care Team | Description | +--------+---------+ + + + | 08/15/ | Office | Cardiology | Zuleika Hernandez, | | | 2019 | Visit | | [address] | | | | | | [address] | | | | | | [place], [place] | | | | | | [address] | | | | | | [phone] | | | | | | | | +--------+---------+ + + + documented as of this encounter Procedures + +--------+ + + + | Procedure Name | Priori | Date/Time | Associated Diagnosis | Comments | | | ty | | | | + +--------+ + + + | RAINBOW HOLD TUBE - | Routin | 02/24/2019 | Panhypopituitarism | | | PURPLE TOP | e | 9:37 AM | (HCC) Pituitary | | | | | PDT | adenoma (HCC) | | + +--------+ + + + | VITAMIN D, | Routin | 02/24/2019 | Panhypopituitarism | Results for this | | 25-HYDROXY, SERUM | e | 9:37 AM | (HCC) Pituitary | procedure are in the | | | | PDT | adenoma (HCC) | results section. | + +--------+ + + + | BASIC METABOLIC SET | Routin | 02/24/2019 | Panhypopituitarism | Results for this | | (NA, K, CL, TCO2, | e | 9:37 AM | (HCC) Pituitary | procedure are in the | | BUN, CR, GLU, CA) | | PDT | adenoma (HCC) | results section. | + +--------+ + + + | INSULIN GROWTH | Routin | 02/24/2019 | Panhypopituitarism | Results for this | | FACTOR-1, SERUM | e | 9:37 AM | (HCC) Pituitary | procedure are in the | | | | PDT | adenoma (HCC) | results section. | + +--------+ + + + | FREE T4 | Routin | 02/24/2019 | Panhypopituitarism | Results for this | | | e | 9:37 AM | (HCC) Pituitary | procedure are in the | | | | PDT | adenoma (HCC) | results section. | + +--------+ + + + | PROLACTIN | Routin | 02/24/2019 | Panhypopituitarism | Results for this | | | e | 9:37 AM | (HCC) Pituitary | procedure are in the | | | | PDT | adenoma (HCC) | results section. | + +--------+ + + + | TSH | Routin | 02/24/2019 | Panhypopituitarism | Results for this | | | e | 9:37 AM | (HCC) Pituitary | procedure are in the | | | | PDT | adenoma (HCC) | results section. | + +--------+ + + + | TESTOSTERONE, SERUM | Routin | 02/24/2019 | Panhypopituitarism | Results for this | | | e | 9:37 AM | (HCC) Pituitary | procedure are in the | | | | PDT | adenoma (HCC) | results section. | + +--------+ + + + documented in this encounter Results RAINBOW HOLD TUBE - PURPLE TOP (02/24/2019 9:37 AM PDT) + + | Specimen | + + | Blood - Blood | | (substance) | + + + + + + + | Performing | Address | City/State/Zipcode | Phone Number | | Organization | | | | + + + + + | [facility] | [address] | [place] [address] | | | SERVICES, CORE | [address] | | | + + + + + VITAMIN D, 25-HYDROXY, SERUM (02/24/2019 9:37 AM PDT) + +-------+ + + + | Component | Value | Ref Range | Performed | Pathologist | | | | | At | Signature | + +-------+ + + + | VITAMIN D | 36.7 | 30 - 80 ng/mL | [facility] [...] | LABORATORY | | >18years: Deficiency: <20 ng/mL | SERVICES, CORE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: 20-29 ng/mL | | | Optimum Level: 30-80 ng/mL High: | | | 81-150 ng/ml Toxic: >150 ng/mL | | + + + + + + + + | Performing | Address | City/State/Zipcode | Phone Number | | Organization | | | | + + + + + | [facility] | [address] | [place] [address] | | | SERVICES, CORE | [address] | | | + + + + + BASIC METABOLIC SET (NA, K, CL, TCO2, BUN, CR, GLU, CA) (02/24/2019 9:37 AM PDT) + +---------+ + + + | Component | Value | Ref Range | Performed | Pathologist | | | | | At | Signature | + +---------+ + + + | GLUCOSE, | 166 (H) | 70 - 99 mg/dL | [...] +---------+ + + + | CREATININE | 0.90 | 0.70 - 1.30 | [facility] | | | PLASMA | | mg/dL | LABORATORY | | | (LAB) | | | SERVICES, | | | | | | CORE | | + +---------+ + + + | EGFR | >60 | >60 mL/min | [facility] | | | - | | | LABORATORY | | | GHANAIAN | | | SERVICES, | | | [...] MDRD equation recommended by the National | [facility] | | Kidney Disease Education Program. Estimated GFR Interpretive | LABORATORY | | Information: <60 mL/min/1.73 sq m Chronic Kidney | SERVICES, CORE | | Disease <15 mL/min/1.73 sq m Kidney Failure | | | Estimated GFR greater than 60 mL/min/1.73 sq m is of limited clinical | | | value. The MDRD equation is not valid in the following situations: - | | | Patients under 18 years of age - Severe malnutrition or obesity - | | | Vegetarian diet - Rapidly changing kidney function - Amputees, | | | paraplegics, or other muscle-wasting diseses | | + + + + + + + + | Performing | Address | City/State/Zipcode | Phone Number | | Organization | | | | + + + + + | [facility] | [address] | [place] [address] | | | SERVICES, CORE | [address] | | | + + + + + TSH (02/24/2019 9:37 AM PDT) + +-------+ + + + | Component | Value | Ref Range | Performed | Pathologist | | | | | At | Signature | + +-------+ + + + | TSH | 0.48 | 0.44 - 4.75 | [facility] | | | | | [...] | + + + + + | [facility] | [address] | [place] [address] | | | SERVICES, CORE | [address] | | | + + + + + TESTOSTERONE, SERUM (02/24/2019 9:37 AM PDT) + + + + + + | Component | Value | Ref Range | Performed | Pathologist | | | | | At | Signature | + + + + + + | TESTOSTERON | 349Comment: Total | 300 - 1080 | [facility] [...] | | | this test in the [employer] | | | | | | Laboratory Test | | | | | | Directory | | | | | | ([employer]Performed | | | | | | by [address] | | | | | | [address], [facility],[place] | | | | | | [address] | | | | | | [phone].[employer]. | | | | | | [facility], Ty Walter MD, | | | [...] [facility] | [address] | [place], [place] | | | UNIV PTH - INTFC | | [address] | | + + + + + PROLACTIN (02/24/2019 9:37 AM PDT) + +-------+ + + + | Component | Value | Ref Range | Performed | Pathologist | | | | | At | Signature | + +-------+ + + + | PROLACTIN | 4.5 | 2.1 - 17.7 | [facility] | [...] New reference range in effect | [facility] | | 2-18. | LABORATORY | | | [place]ANKIN | + + + + + + + + | Performing | Address | City/State/Zipcode | Phone Number | | Organization | | | | + + + + + | [facility] | [address] | [place] [address] | | | SERVICES, [place] | [address] | | | + + + + + INSULIN GROWTH FACTOR-1, SERUM (02/24/2019 9:37 AM PDT) + + + + + + | Component | Value | Ref Range | Performed | Pathologist | | | | | At | Signature | + + + + + + | IGF-1 | 123 | 83 - 238 ng/mL | [facility] | | | | | | REG UNIV | | | | | | PTH - INTFC | | + + + + + + | IGF-1 | -0.8Comment: | | [facility] | | | Z-SCORE [...] | | | | | | by [address] | | | | | | [address] Pickens, [facility],[place] | | | | | | [address] | | | | | | [phone].[facility]. | | | | | | Ty [...] + + | [facility] | [address] | [place], [place] | | | UNIV PTH - INTFC | | [address] | | + + + + + FREE T4 (02/24/2019 9:37 AM PDT) + +---------+ + + + [...] | + + + + + | [facility] | [address] | [place] [address] | | | SERVICES, CORE | [address] [...]
--- OUTSIDE RECORDS SUMMARY | ~2019-07-14 | XMS | Encounter Summary ---
Demographics + + + | Address | [address] | | | [place] [address] | + + + | Home Phone [...] + + | Author | [place] [facility] | + + + | Organization | [facility] [...] Providers + +------+ + | Care Manager Field Investigations Name | Role | Phone | + +------+ + | No Pcp Per Patient | PCP | Unavailable | + +------+ + Reason for Visit + + + | Reason | Comments | + + + | Follow-up in | Pt states c/o pain daily behind his right eye when he awakes. | | outpatient clinic | | + + + Office Visit - E/M Services (Routine) +--------+--------+ + + + + | Status | Reason | Specialty | Diagnoses / | Referred By | Referred To | | | | | Procedures | Contact | Contact | +--------+--------+ + + + + | Closed | | Otolaryngolog | Diagnoses | Stephani, | Colin, | | | | y | chronic | MD Reuben | Jus Almendarez MD | | | | | sinusitis | [address] | [address] | | | | | Procedures | [address] | [address] | | | | | nasal | Panacea ID | Abdoulaye Panacea, | | | | | endoscopy | [address] | [place] [address] | | | | | | | Phone: | | | | | | | [phone] | | | | | | | Fax: | | | | | | | [phone] | +--------+--------+ + + + + Encounter Details +--------+---------+ + + + | Date | Type | Department | Care Team | Description | +--------+---------+ + + + | 05/15/ | Office | Otolaryngology | Jus Shaw, | Atypical Face Pain | | 2005 | Visit | Sinus Services [address] | (Primary Dx) | | | | [address] [facility] | [facility] [address] | | | | | Rd Mailcode: [address] | [place] [address] | | | | | Physician's | [phone] | | | | | [place] | | | | | | [place] [address] | | | | | | [phone] | | | +--------+---------+ + + + [...] this encounter Progress Notes Jus Shaw - 05/15/2006 2:38 PM PDTHPI: The patient is a 25 yo M s/p transnasal res ection of 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 He was last seen in March for evaluation of his sinu ses as a potential cause of his headaches. He was not found to have any evidence of a sinus infection, however, given the history, he was started on a 21 day course of Avelox. He rep orts no improvement in his symptoms since finishing the course of abx. He started a second course of abx yesterday. He reports continued right sided head and face pain. He states th at it is usually a dull ache, however it can at times be pounding. He states that the heada ches started prior to his surgery, and lead to the discovery of his tumor. O: Calm, NAD, AOX4. Anterior rhinoscopy shows midline septum with nl mucosa. Procedure: Nasal endoscopy was performed after lidocaine 4% topical anesthetic was placed. A rigid endoscope was utilized to evaluate the sinonasal cavities, mucosa, sinus ostia and t urbinates. Overall, no significant mucosal inflammation is observed. The scope was passed me dially into sphenethmoid recess bilaterally. The region of the natural sphenoid ostium was v isualized clearly on the left with no evidence of purulent drainage. The right sphenoid osti um was not clearly visualized, however there was no evidence of purulence coming from the sp heno-ethmoid recess. A: 25 yo M with frontal headache s/p transphenoidal 09/15, unresponsive to antibiotics. P: Uncertainty of cause discussed with patient. Possible explanations range from sphenoid sin usitis to a cause unrelated to his surgery. Will plan to discuss this with both Dr. Jeannine bermudez and Dr. Schmitt to address the possibility of re-imaging, referral to a headache specialist like Dr. Ryder, or more aggressive management. We will contact the patient after a plan has been formulated. documented in this encou nter Plan of Treatment +--------+---------+ + + + | Date | Type | Specialty | Care Team | Description | +--------+---------+ + + + | 08/15/ | Office | Cardiology | Zuleika Hernandez, | | | 2019 | Visit | | [address] | | | | | [address] | | | | | | [place], [place] | | | | | | [address] | | | | | | [phone] | | | | | | | | +--------+---------+ + + + + + +--------+ + + | Name | Type | Priori | Associated Diagnoses | Order Schedule | | | | ty | | | + + +--------+ + + | NASAL ENDOSCOPY, | Procedures | Routin | Atypical Face Pain | Ordered: 05/15/2006 | | DIAGNOSTIC | | e | | | + + +--------+ + + documented as of this encounter Visit Diagnoses + + | Diagnosis | + + | Atypical face pain - Primary | + + documented in this encounter"
--- OUTSIDE RECORDS SUMMARY | ~2019-07-14 | XMS | Encounter Summary ---
Demographics + + + | Address | [address] | | | [place] [address] | + + + | Home Phone [...] + + + | Author | [place] [employer] [facility] | + + + | Organization | [facility] | [...] Team Providers + +------+ + | Care Fashion Photographer Name | Role | Phone | + +------+ + | No Pcp Per Patient | PCP | Unavailable | + +------+ + Encounter Details +--------+ + + + + | Date | Type | Department | Care Team | Description | +--------+ + + + + | 06/10/ | MyChart | Neurosurgery at | Donnie, | RE: Refills | | 2009 | Encounter | [facility] [address] | Cathie | | | | | [place] Mailcode: [id number] | DNP,BARREL DRAINER,[place] [address] | | | | | [facility] | [address] [place], | | | | | and Healing, | [place] [address] | | | | | Building 1 | [phone] | | | | | [place], [place] | | | | | | [address] | | | | | | [phone] | | | +--------+ + + + [...] Rd | | | | | | [place], [place] | | | | | | [address] | | | | | | [phone] | | | | | | | | +--------+---------+ + + + documented as of this encounter Visit Diagnoses Not on filedocumented in this encounter"
--- OUTSIDE RECORDS SUMMARY | ~2019-07-14 | XMS | Encounter Summary ---
Demographics + + + | Address | [address] | | | [place] [address] | + + + | Home Phone [...] + + + | Author | [place] [employer] [facility] | + + + | Organization | [facility] | + + + | Address | Unknown | + + + | Phone | Unavailable | + + + Support + + +---------+ + | Name | Relationship | Address | Phone | + + +---------+ + | Alexandria Dixon | ECON | Unknown | | + + +---------+ + Care Team Providers + +------+ + | Care Billet Driller Name | Role | Phone | + +------+ + | Priscilla Ramírez PA-C | PCP | | + +------+ + Encounter Details +--------+ + + + + | Date | Type | Department | Care Team | Description | +--------+ + + + + | 07/08/ | Pharmacy | Outpatient Retail | | | | 2015 | Visit | [facility] | | | | | | [address] | | | | | | [place], | | | | | | [place] [address] | | | | | | [phone] | | | +--------+ + + + [...] | | | | | | [place], [place] | | | | | | [address] | | | | | | [phone] | | | | | | | | +--------+---------+ + + + documented as of this encounter Visit Diagnoses Not on filedocumented in this encounter"
--- OUTSIDE RECORDS SUMMARY | ~2019-07-14 | XMS | Encounter Summary ---
Demographics + + + | Address | [address] | | | [place] [address] | + + + | Home Phone [...] + + + | Author | [place] [employer] [facility] | + + + | Organization | [facility] [...] Providers + +------+ + | Care Manager Body Name | Role | Phone | + +------+ + | No Pcp Per Patient | PCP | Unavailable | + +------+ + Encounter Details +--------+ + + + + | Date | Type | Department | Care Team | Description | +--------+ + + + + | 09/07/ | Results | Endocrinology | Jaclyn Crawford, | | | 2006 | Only | Pituitary Disease | [address] | | | | | Edwina [address] | [address] | | | | | [address] | [place], [place] | | | | | Mailcode: [id number] | [address] | | | | | [facility] | [phone] | | | | | [address] | | | | | | [place], [place] | | | | | | [address] | | | | | | [phone] | | | +--------+ + + + [...] | | 2020 | Visit | | [address] | | | | | | [address] | | | | | | [place], [place] | | | | | | [address] | | | | | | [phone] | | | | | | | | +--------+---------+ + + + + +---------+--------+ + + | Name | Type | Priori | Associated Diagnoses | Date/Time | | | | ty | | | + +---------+--------+ + + | MRI BRAIN WWO | Imaging | Routin | | 11/30/2006 9:47 AM | | CONTRAST | | e | | PDT | + +---------+--------+ + + | MRI BRAIN WWO | Imaging | Routin | | 12/08/2006 4:48 PM | | CONTRAST | | e | | PDT | + +---------+--------+ + + documented as of this encounter Procedures + +--------+ + + + | Procedure Name | Priori | Date/Time | Associated Diagnosis | Comments | | | ty | | | | + +--------+ + + + | MRI BRAIN WWO | Routin | 12/08/2006 | | Results for this | | CONTRAST | e | 4:48 PM | | procedure are in the | | | | PDT | | results section. 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 | | | | | | TECHNIQUE:1. Sagittal T1 | | | | | | through the sella.2. | | | | | | High-resolution coronal | | | | | | T1 and T2 and | | | | | | postcontrast sagittal | | | | | | andcoronal T1 scans | | | | | | through the sella | | | | | | turcica.3. Axial T2 | | | | | | weighted images through | | | | | | the brain.4. Axial | | | | | | FLAIR and DWI.5. | | | | | | Postcontrast axial T1 | | | | | | weighted images through | | | | | | the brain. COMPARISON: | | | | | | 10/31/05 FINDINGS: | | | | | | Enhancing tissue fills | | | | | | the sella which is | | | | | | normal for ageand | | | | | | unchanged compared to | | | | | | the prior study. No | | | | | | definite mass | | | | | | isidentified. There is | | | | | | no mass effect on the | | | | | | optic chiasm. | | | | | | Thepituitary stalk is | | | | | | mildly thickened but | | | | | | still within the | | | | | | upperlimits of normal | | | | | | and unchanged in | | | | | | appearance. Mucosal | | | | | | thickening is again | | | | | | identified within the | | | | | | sphenoidsinuses.IMPRESSI | | | | | | ON: 1. No significant | | | | | | interval change compared | | | | | | to prior study. | | | | | | Noevidence of residual | | | | | | or recurrent pituitary | | | | | | mass lesion. | | | | + + + + + + + + | Specimen | + + | | + + + +---------+ + + | Performing | Address | City/State/Zipcode | Phone Number | | Organization | | | | + +---------+ + + | [facility] | | | | | RADIOLOGY | | | | + +---------+ + + documented in this encounter Visit Diagnoses Not on filedocumented in this encounter"
--- OUTSIDE RECORDS SUMMARY | ~2019-07-14 | XMS | Encounter Summary ---
Demographics + + + | Address | [address] | | | [place] [address] | + + + | Home Phone [...] + + + | Author | [place] [employer] [facility] | + + + | Organization | [facility] | + [...] Providers + +------+ + | Care School Psychology Professor Name | Role | Phone | + +------+ + | No Pcp Per Patient | PCP | Unavailable | + +------+ + Encounter Details +--------+ + + + + | Date | Type | Department | Care Team | Description | +--------+ + + + + | 06/09/ | Slice Cutting Machine Operator Helper | Neurosurgery at | Donnie, | | | 2008 | | [facility] [address] | Cathie | | | | | [place] Mailcode: CH8N | DNP,ADVERTISING ANALYST,[place] [address] | | | | | [facility] | [address] [place], | | | | | and Healing, | [place] [address] | | | | | [facility] | [phone] | | | | | Floor [place], [place] | | | | | | [address] | | | | | | [phone] | | | +--------+ + + + [...] Rd | | | | | | [place], [place] | | | | | | [address] | | | | | | [phone] | | | | | | | | +--------+---------+ + + + documented as of this encounter Visit Diagnoses Not on filedocumented in this encounter"
--- OUTSIDE RECORDS SUMMARY | ~2019-07-14 | XMS | Encounter Summary ---
Demographics + + + | Address | [address] | | | [place] [address] | + + + | Home Phone [...] + + | Author | [place] [employer] [facility] | + + + | Organization | [facility] | + + + | Address | Unknown | + + + | Phone | Unavailable | + + + Support + + +---------+ + | Name | Relationship | Address | Phone | + + +---------+ + | Alexandria Dixon | ECON | Unknown | | + + +---------+ + Care Team Providers + +------+ + | Care Steam Service Inspector Name | Role | Phone | [...] | | 2011 | Encounter | [facility] [address] | Cathie | | | | | [place] Mailcode: CH8N | DNP,MANAGER BUSINESS SYSTEMS,[place] [address] | | | | | [facility] | [address] [place], | | | | | and [place], | [place] [address] | | | | | [facility] 1 | [phone] | | | | | [place], [place] | | | | | | [address] | | | | | | [phone] | | | +--------+ + + + [...] | | 2019 | Visit | | [address] | | | | | | [address] | | | | | | [place], [place] | | | | | | [address] | | | | | | [phone] | | | | | | | | +--------+---------+ + + + documented as of this encounter Visit Diagnoses Not on filedocumented in this encounter"
--- OUTSIDE RECORDS SUMMARY | ~2019-07-14 | XMS | Encounter Summary ---
Demographics + + + | Address | [address] | | | [place] [address] | + + + | Home Phone | | + + + | Preferred Language | Unknown | + + + | Marital Status | Single | + + + | Zoroastrian Affiliation | NON | + + + | Race | or | + + + | Ethnic Group | Not or | + + + Author + + + | Author | [place] [employer] [facility] | + + + | Organization | [facility] | + + + | Address | Unknown | + + + | Phone | Unavailable | + + + Support + + +---------+ + | Name | Relationship | Address | Phone | + + +---------+ + | Alexandria Dixon | ECON | Unknown | | + + +---------+ + Care Team Providers + +------+ + | Care Production Broacher Name | Role | Phone | + [...] Description | +--------+--------+ + + + | 03/18/ | Refill | Neurosurgery at | Donnie, | Refill Request | | 2017 | | [facility] [address] | Cathie | | | | | [place] Mailcode: CH8N | DNP,SENIOR PROCUREMENT MANAGER,[place] [address] | | | | | [facility] | [address] [place], | | | | | and Healing, | [place] [address] | | | | | Building 1 | [phone] | | | | | [place], [place] | | | | | | [address] | | | | | | [phone] | | | +--------+--------+ + + + [...] Rd | | | | | | [place], [place] | | | | | | [address] | | | | | | [phone] | | | | | | | [...]
--- OUTSIDE RECORDS SUMMARY | ~2019-07-14 | XMS | Encounter Summary ---
Demographics + + + | Address | [address] | | | [place] [address] | + + + | Home Phone [...] + + + | Author | [place] [employer] [facility] | + + + | Organization | [facility] | + + + | Address | Unknown | + + + | Phone | Unavailable | + + + Support + + +---------+ + | Name | Relationship | Address | Phone | + + +---------+ + | Alexandria Dixon | ECON | Unknown | | + + +---------+ + Care Team Providers + +------+ + | Care Administrative Assistant Name | Role | Phone [...] | | 2004 | Activity | [address] [facility] | | | | | | Abdoulaye Mailcode: [id number] | | | | | | [place], [place] | | | | | | [address] | | | | | | [phone] | | | +--------+ + + + [...] Rd | | | | | | [place], [place] | | | | | | [address] | | | | | | [phone] | | | | | | | | +--------+---------+ + + + documented as of this encounter Visit Diagnoses Not on filedocumented in this encounter"
--- OUTSIDE RECORDS SUMMARY | ~2019-07-14 | XMS | Encounter Summary ---
Demographics + + + | Address | [address] | | | [place] [address] | + + + | Home Phone [...] + + | Author | [place] [employer] [facility] | + + + | Organization | [facility] | + [...] Team Providers + +------+ + | Care Continuity Director Name | Role | Phone | + +------+ + | Jinny Bergeron MD | PCP | | + +------+ + Encounter Details +--------+ + + + + | Date | Type | Department | Care Team | Description | +--------+ + + + + | 03/05/ | MyChart | Neurosurgery at | Donnie, | RE: Benjamin | | 2016 | Encounter | [facility] [address] | Cathie | | | | | [place] Mailcode: CH8N | DNP,EXT JS DEVELOPER,[place] [address] | | | | | [facility] | [address] [place], | | | | | and [place], | [place] [address] | | | | | [facility] 1 | [phone] | | | | | [place], [place] | | | | | | [address] | | | | | | [phone] | | | +--------+ + + + [...] Rd | | | | | | [place], [place] | | | | | | [address] | | | | | | [phone] | | | | | | | | +--------+---------+ + + + documented as of this encounter Visit Diagnoses Not on filedocumented in this encounter"
--- OUTSIDE RECORDS SUMMARY | ~2019-07-14 | XMS | Encounter Summary ---
Demographics + + + | Address | [address] | | | [place] [address] | + + + | Home Phone | | + + + | Preferred Language | Unknown | + + + | Marital Status | Single | + + + | Amish Affiliation | Unknown | + + + | Race | Unknown | + + + | Ethnic Group | Unknown | + + + Author + + + | Author | [facility] | | | and [place] | + + + | Organization | [facility] | [...] Providers + +------+ + | Care Retail Supervisor Name | Role | Phone | [...] | Sumanth Champion | | | | Lead Refinery Supervisor / | Obstructive | Bren H, | BRETT Gracia [address] | | | | Sleep | sleep apnea | [address] | | | | Medicine | (adult) | [address] | [place], | | | | | (pediatric) | [place] | [place] [address] | | | | | [address] | [address] | Phone: | | | | | EQUIP/COMPLI | [place], | [phone] | | | | | ANCE | [place] | Fax: | | | | | Procedures | [address] | [phone] | | | | | OFFICE VISIT | Phone: | | | | | | EXTENDED | [phone] | | | | | | | Fax: | | | | | | | [phone] | | +--------+--------+ + + + + Encounter Details +--------+---------+ + + + | Date | Type | Department | Care Team | Description | +--------+---------+ + + + | 09/28/ | Office | [facility] | Sumanth Champion PA | MALLIKA on CPAP (Primary | | 2019 | Visit | SLEEP DISORDER [address] | [address] | Dx) | | | | [address] | [place] | | | | | [place] [address] | [address] | | | | | [phone] | | | +--------+---------+ + + + [...] nasal mask DME: [facility] [place] pressure: 12-18 cm Median: 12.5 cm 95%: [...] Exam Assessment: Problem #1: OBSTRUCTIVE SLEEP APNEA ([id number]) This is controlled with CPAP. He is [...] appro priate paperwork. Fifteen minutes were spent [id number], with the majority of time spent in counseling. Sumanth Champion PA-C Cc: BRETT Orr documented in this enco unter Plan of Treatment +--------+---------+ + + + | Date | Type | Specialty | Care Team | Description | +--------+---------+ + + + | 11/21/ | Office | Sleep Medicine | Sumanth Champion PA | | | 2020 | Visit | | [address] [facility] | | | | | | [place] | | | | | | [address] | | | | | | | | +--------+---------+ + + + documented as of this encounter Visit Diagnoses + + | Diagnosis | + + | MALLIKA on CPAP - Primary Obstructive sleep apnea (adult) (pediatric) | + + documented in this encounter
--- OUTSIDE RECORDS SUMMARY | ~2019-07-14 | XMS | Encounter Summary ---
Demographics + + + | Address | [address] | | | [place] [address] | + + + | Home Phone [...] + + | Author | [place] [employer] [facility] | + + + | Organization | [facility] | + [...] Providers + +------+ + | Care Supervisor Compressed Yeast Name | Role | Phone | + [...] Refill Request | | 2013 | | [facility] [address] | Cathie, | | | | | [place] Mailcode: CH8N | DNP,HERD TESTER,[place] [address] | | | | | [facility] | [address] [place], | | | | | and Healing, | [place] [address] | | | | | Building 1 | [phone] | | | | | [place], [place] | | | | | | [address] | | | | | | [phone] | | | +--------+--------+ + + + [...] Rd | | | | | | [place], [place] | | | | | | [address] | | | | | | [phone] | | | | | | | | +--------+---------+ + + + documented as of this encounter Visit Diagnoses Not on filedocumented in this encounter"
--- OUTSIDE RECORDS SUMMARY | ~2019-07-14 | XMS | Encounter Summary ---
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: | | | | | (HCC) | | [phone] | | | | | Unspecified | | Fax: | | | | | hypothyroidi | | [phone] | | | | | sm Diabetes [...] | | | | | VL I NM | | | | | | | OFFICE/OUTPT | | | | | | | | | | | | | | VISIT,EST,LE | | | | | | | VL II NM | | | | | | | OFFICE/OUTPT | | | | | | | | | | | | | | VISIT,EST,LE | | | | | | | LISHA III NM | | | | | | | OFFICE/OUTPT | | | | | | | | | | | | | | VISIT,EST,LE | | | | | | | VL IV NM | | | | | | [...] adenoma | | 2013 | Visit | [facility] [address] | Cathie, | ([facility]) (Primary Dx); | | | | Av Mailcode: [address] | DNP,TANK SYSTEMS MAINTAINER,[place] [address] | 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 [...] cardiac stent place 02/2011 after a n [place]. At this visit; Symptoms and Complaints: Ed [...] ER solucortef By IM injection in the confucianist of severe illness, injury or vomiting. After [...] 6. Follow up in 6 mths 11/22 [facility] labs. Next MRI 12/2016 TOMER MONTELONGO DNP, BECCA Wind Turbine Mechanical Engineer [facility] [address] [facility] [address] documented in this encounter Plan of Treatment +--------+---------+ + + + | Date | Type | Specialty | Care Team | Description | +--------+---------+ + + + | 08/15/ | Office | Cardiology | Zuleika Hernandez, | | | 2019 | Visit | | [address] | | | | | | [address] | | | | | | [place], [place] | | | | | | [address] | | | | | | [phone] | | | | | | | [...] | + + + + + | [facility] | [address] | [place] [address] | | | MASSIEL, VITALY | KIMO [...] + | [place] [facility] - | [address] | [place], [place] [address] | | | [place] | | | | + + + [...] + | [facility] - | [address] | [place] [address] | | | [place] | | | | + + + [...] + | [place] [facility] - | [address] | [place] [address] | | | [place] | | | [...] + + | Test now performed at [facility]. New method effective 06/22/13. | [facility] | | | LABORATORY | | | VITALY RANKIN | + + + + + + + + | Performing | Address | City/State/Zipcode | Phone Number | | Organization | | | | + + + + + | [facility] | [address] | [place] [address] | | | VITALY RANKIN | KIMO [...] | | | LABORATORY | | | [place] | | | SERVICES, | | | [...] | + + + + + | [facility] | [address] | [place] [address] | | | SERVICES, CORE | KIMO [...]
--- OUTSIDE RECORDS SUMMARY | ~2019-07-14 | XMS | Encounter Summary ---
Demographics + + + | Address | [address] | | | [place] [address] | + + + | Home Phone [...] + + | Author | [place] [employer] [facility] | + + + | Organization | [facility] [...] Providers + +------+ + | Care Air And Water Tester Name | Role | Phone | [...] visit; | | 2019 | | at [facility] [address] | [address] [facility] | Appointment | | | | [address] Mailcode: | [facility] | | | | | [address] | [place], [place] | | | | | Health and [facility], | [address] | | | | | [facility] | [phone] | | | | | floor [place], [place] | | | | | | [address] | | | | | | [phone] | | | +--------+ + + + [...] [place] | | | | | | [address] | | | | | | [phone] | | | | | | | | +--------+---------+ + + + documented as of this encounter Visit Diagnoses Not on filedocumented in this encounter"
--- OUTSIDE RECORDS SUMMARY | ~2019-07-14 | XMS | Encounter Summary ---
Demographics + + + | Address | [address] | | | [place] [address] | + + + | Home Phone [...] + + + | Author | [place] [employer] [facility] | + + + | Organization | [facility] | + + + | Address | Unknown | + + + | Phone | Unavailable | + + + Support + + +---------+ + | Name | Relationship | Address | Phone | + + +---------+ + | Alexandria Dixon | ECON | Unknown | | + + +---------+ + Care Team Providers + +------+ + | Care Social Media Project Manager Name | Role | Phone | [...] | | | [address] | [place], [place] | | | | | Mailcode: [id number] | [address] | | | | | [facility] | [phone] | | | | | [address] | | | | | | [place], [place] | | | | | | [address] | | | | | | [phone] | | | +--------+ + + + [...] | | | | | | [place], [place] | | | | | | [address] | | | | | | [phone] | | | | | | | | +--------+---------+ + + + documented as of this encounter Visit Diagnoses Not on filedocumented in this encounter"
--- OUTSIDE RECORDS SUMMARY | ~2019-07-14 | XMS | Encounter Summary ---
Demographics + + + | Address | [address] | | | [place] [address] | + + + | Home Phone [...] + + | Author | [place] [employer] [facility] | + + + | Organization | [facility] | + + + | Address | Unknown | + + + | Phone | Unavailable | + + + Support + + +---------+ + | Name | Relationship | Address | Phone | + + +---------+ + | Alexandria Dixon | ECON | Unknown | | + + +---------+ + Care Team Providers + +------+ + | Care Meat Butcher Name | Role | Phone | + [...] as of this encounter Progress Notes Interface, Research Subject In - 12/29/2005 2:03 AM [facility] [id number] TOREY TRIVEDI [id number] Clinic Date: 12/23/2005 Clinic: Pituitary Clinic Referring [...] patient's care. Judy Landa M.D., Ph.D. / [id number] / [id number] / [id number] / [id number] cc: Shravan Montanez M.D. [address] [place] [address] Electronically signed by Lb Guillaume (Bill) 12-28-2005 10:22:55 PM documented ivonne n this encounter Plan of Treatment +--------+---------+ + + + | Date | Type | Specialty | Care Team | Description | +--------+---------+ + + + | 08/15/ | Office | Cardiology | Zuleika Hernandez, | | | 2019 | Visit | | [address] [facility] [address] | | | | | | [address] | | | | | | [place], [place] | | | | | | [address] | | | | | | [phone] | | | | | | | | +--------+---------+ + + + documented as of this encounter Visit Diagnoses Not on filedocumented in this encounter"
--- OUTSIDE RECORDS SUMMARY | ~2019-07-14 | XMS | Encounter Summary ---
Demographics + + + | Address | [address] | | | [place] [address] | + + + | Home Phone [...] + + + | Author | [place] [employer] [facility] | + + + | Organization | [facility] [...] Team Providers + +------+ + | Care Wharf Worker Name | Role | Phone | [...] | | pituitary | [address] | [facility] | | | | | gland and | Rd | Rd [place], | | | | | craniopharyn | [place], [place] | [place] [address] | | | | | geal duct | [address] | Phone: | | | | | (pouch) | Phone: | [phone] | | | | | (HCC) | [phone] | Fax: | | | | | Sphenoid | Fax: | [phone] | | | | | sinusitis | [phone] | | | | | | Procedures [...] (Primary | | | | [address] [facility] | [address] | Dx); Atypical Face | | | | Rd Mailcode: [id number] | [place] [address] | Pain | | | | Physician's | [phone] | | | | | Crist[place], | | | | | | [place] [address] | | | | | | [phone] | | | +--------+---------+ + + + [...] bello had an MRI performed 03/17/06 in [facility]. He was seen in neurosurgery clinic [...] basis per Dr. Styles [facility] Plan of Treatment +--------+---------+ + + + | Date | Type | Specialty | Care Team | Description | +--------+---------+ + + + | 08/15/ | Office | Cardiology | Zuleika Hernandez, | | | 2019 | Visit | | [address] | | | | | | [address] | | | | | | [place], [place] | | | | | | [address] | | | | | | [phone] | | | | | | | [...]
--- OUTSIDE RECORDS SUMMARY | ~2019-07-14 | XMS | Encounter Summary ---
Demographics + + + | Address | [address] | | | [place] [address] | + + + | Home Phone [...] + + + | Author | [place] [employer] [facility] [...] Team Providers + +------+ + | Care Doughnut Glazier Name | Role | Phone | + [...] [id number] | | | | | | [place], [place] | | | | | | [address] | | | | | | [phone] | | | +--------+ + + + [...] Rd | | | | | | [place], [place] | | | | | | [address] | | | | | | [phone] | | | | | | | [...] DEPARTMENT OF | [address] | [place] [address] | | | PATHOLOGY | [address] | | | + + + + + | [facility] DEPARTMENT | [address] | [place] [address] | | | PATHOLOGY | [address] [...] [facility] DEPARTMENT OF | [address] | [place] [address] | | | PATHOLOGY | [address] | | | + + + + + | [facility] DEPARTMENT OF | [address] | [place] [address] | | | PATHOLOGY | [address] [...] HEALTH CENTER DEPARTMENT OF | [address] | [place] [address] | | | PATHOLOGY | [address] | | | + + + + + | [facility] DEPARTMENT OF | [address] | [place] [address] | | | PATHOLOGY | [address] [...] DEPARTMENT OF | [address] | [place] [address] | | | PATHOLOGY | [address] | | | + + + + + | [facility] DEPARTMENT OF | [address] | [place] [address] | | | PATHOLOGY | [address] [...] | + + + + + | [facility] | [address] | [place] [address] | | | PATHOLOGY | [address] | | | + + + + + | [facility] | [address] | [place] [address] | | | PATHOLOGY | [address] [...] DEPARTMENT OF | [address] | [place] [address] | | | PATHOLOGY | [address] | | | + + + + + | [facility] DEPARTMENT OF | [address] | [place] [address] | | | PATHOLOGY | [address] [...] | + + + + + | [facility] | [address] | [place] [address] | | | PATHOLOGY | [address] | | | + + + + + | [facility] | [facility] | [place] [address] | | | PATHOLOGY | [address] [...] DEPARTMENT OF | [address] | [place] [address] | | | PATHOLOGY | [address] | | | + + + + + | [facility] DEPARTMENT OF | [address] | [place] [address] | | | PATHOLOGY | [address] [...] | + + + + + | [facility] | [address] | [place] [address] | | | PATHOLOGY | [address] | | | + + + + + | [facility] | [address] | [place] [address] | | | PATHOLOGY | [address] [...] [facility] DEPARTMENT OF | [address] | [place] [address] | | | PATHOLOGY | [address] | | | + + + + + | [place] DEPARTMENT OF | [address] | [place] [address] | | | PATHOLOGY | [address] [...] DEPARTMENT OF | [address] | [place] [address] | | | PATHOLOGY | [address] | | | + + + + + | [facility] DEPARTMENT OF | [address] | [place] [address] | | | PATHOLOGY | [address] [...] [facility] DEPARTMENT OF | [address] | [place] [address] | | | PATHOLOGY | [address] | | | + + + + + | [facility] DEPARTMENT OF | [address] | [place] [address] | | | PATHOLOGY | [address] [...] | + + + + + | [facility] | [address] | [place] [address] | | | PATHOLOGY | [address] | | | + + + + + | [facility] DEPARTMENT | [address] | [place] [address] | | | PATHOLOGY | [address] [...] | 28.2Comment: | 26.0 - 36.0 | [place] | | | | APTT Therapeutic Range [...] | + + + + + | [facility] | [address] | [place] [address] | | | PATHOLOGY | [address] | | | + + + + + | [facility] | [address] [place] [address] | [place] [address] | | | PATHOLOGY | [address] [...] necessary | | | | | | [facility] | | | | | | and [...] | + + + + + | [facility] | [address] | [place] [address] | | | PATHOLOGY | [address] | | | + + + + + | [facility] | [address] | [place] [address] | | | PATHOLOGY | [address] | | | + + + + + documented in this encounter Visit Diagnoses Not on filedocumented in this encounter
--- OUTSIDE RECORDS SUMMARY | ~2019-07-14 | XMS | Encounter Summary ---
Demographics + + + | Address | [address] | | | [place] [address] | + + + | Home Phone [...] + + + | Author | [place] [employer] [facility] | + + + | Organization | [facility] | + + + | Address | Unknown | + + + | Phone | Unavailable | + + + Support + + +---------+ + | Name | Relationship | Address | Phone | + + +---------+ + | Alexandria Dixon | ECON | Unknown | | + + +---------+ + Care Team Providers + +------+ + | Care Mounted Police Name | Role | Phone | + +------+ + | Priscilla Ramírez PA-C | PCP | | + +------+ + Encounter Details +--------+ + + + + | Date | Type | Department | Care Team | Description | +--------+ + + + + | 12/22/ | Ancillary | Registration [address] | Donnie, | | | 2005 | Registratio | [facility] [address] | Cathie | | | | n | Abdoulaye Mailcode: [id number] | DNP,LITIGATION ATTORNEY ASSOCIATE,[place] [address] | | | | | [place], [place] | [address] [place], | | | | | [address] | [place] [address] | | | | | [phone] | [phone] | | | | | | | [...] [place] | | | | | | [address] | | | | | | [phone] | | | | | | | | +--------+---------+ + + + documented as of this encounter Visit Diagnoses Not on filedocumented in this encounter"
--- OUTSIDE RECORDS SUMMARY | ~2019-07-14 | XMS | Encounter Summary ---
Demographics + + + | Address | [address] | | | [place] [address] | + + + | Home Phone [...] + + + | Author | [place] [employer] [facility] | + + + | Organization | [facility] | + + + | Address | Unknown | + + + | Phone | Unavailable | + + + Support + + +---------+ + | Name | Relationship | Address | Phone | + + +---------+ + | Alexandria Dixon | ECON | Unknown | | + + +---------+ + Care Team Providers + +------+ + | Care Lock Corner Machine Operator Name | Role | Phone [...] | | 2012 | Encounter | [facility] [address] | Cathie | | | | | [place] Mailcode: [id number] | DNP,TOP PRINTING PRESS OPERATOR,[place] [address] | | | | | [facility] | [address] [place], | | | | | and [place], | [place] [address] | | | | | [facility] [address] | [phone] | | | | | [place], [place] | | | | | | [address] | | | | | | [phone] | | | +--------+ + + + [...] Rd | | | | | | [place], [place] | | | | | | [address] | | | | | | [phone] | | | | | | | | +--------+---------+ + + + documented as of this encounter Visit Diagnoses Not on filedocumented in this encounter"
--- OUTSIDE RECORDS SUMMARY | ~2019-07-14 | XMS | Encounter Summary ---
Demographics + + + | Address | [address] | | | [place] [address] | + + + | Home Phone | | + + + | Preferred Language | Unknown | + + + | Marital Status | Single | + + + | Pentecostal Affiliation | Unknown | + + + | Race | Unknown | + + + | Ethnic Group | Unknown | + + + Author + + + | Author | [facility] | | | and [place] | + + + | Organization | [facility] | | | and [...] Team Providers + +------+ + | Care General Car Supervisor Yard Name | Role | Phone | + +------+ + | Priscilla Ramírez PA-C | PCP | | + +------+ + Encounter Details +--------+ + + + + | Date | Type | Department | Care Team | Description | +--------+ + + + + | 10/03/ | Orders Only | [facility] | Juan Bernard | | | 2015 | | [place] | MD [address] | | | | | ECHO [address] | [address] | | | | | [place], [place] | [place] [address] | | | | | [address] | [phone] | | | | | [phone] | | | +--------+ + + + [...] 2020 | Visit | | [address] | | | | | | [place] | | | | | | [address] | | | | | | | | +--------+---------+ + + + documented as of this encounter Procedures + +--------+ + + + | Procedure Name | Priori | Date/Time | Associated Diagnosis | Comments | | | ty | | | | + +--------+ + + + | ECHO COMPLETE | Routin | 10/03/2014 | | Results for this | | | e | 11:03 AM | | procedure are in the | | | | PST | | results section. | + +--------+ + + + documented in this encounter Results ECHO Complete (10/03/2014 11:03 AM PST) + + | Specimen | + + | | + + + + + | Impressions | Performed At | + + + | 1. Overall left ventricular systolic function is normal with, an EF | | | between 55 - 60 %. 2. There is mild concentric left ventricular | | | hypertrophy. | | + + + + + + | Narrative | Performed At | + + + | Patient Name: AASHISH LEMA Date of : 1980 | | | Performing Physician: JUAN BERNARD MD | | | | | | INDICATIONS CAD with stenting CONCLUSIONS | | | 1. Overall left ventricular systolic function is normal | | | with, an EF between 55 - 60 %. 2. There is mild concentric left | | | ventricular hypertrophy. FINDINGS -------- ECG rhythm: Sinus | | | rhythm. Study: A 2-dimensional transthoracic echocardiogram with | | | m-mode, spectral and color flow Doppler was perfomed. Study: This was | | | a technically adequate study. Left Ventricle: Overall left | | | ventricular systolic function is normal with, an EF between 55 - 60 %. | | | Left Ventricle: The left ventricle cavity size is normal. Left | | | Ventricle: There is mild concentric left ventricular hypertrophy. | | | Left Ventricle: No regional wall motion abnormalities. Left | | | Ventricle: The diastolic filling pattern is normal for the age of the | | | patient. Right Ventricle: The right ventricle is mildly enlarged | | | measuring between 3.4 - 3.7 cm. Left Atrium: The left atrium is | | | mildly enlarged by length but normal by volume. Right Atrium: The | | | right atrial size is normal. Aortic Valve: The aortic valve is | | | trileaflet and appears structurally normal. Aortic Valve: There is no | | | evidence of aortic regurgitation. Aortic Valve: There is no evidence | | | of aortic stenosis. Mitral Valve: The mitral valve is normal. | | | Mitral Valve: There is trivial mitral regurgitation. Tricuspid Valve: | | | The tricuspid valve appears structurally normal. Tricuspid Valve: | | | Trivial tricuspid regurgitation present. Tricuspid Valve: There is no | | | evidence of pulmonary hypertension. Tricuspid Valve: The right | | | ventricular systolic pressure (pulmonary artery systolic pressure), as | | | measured by Doppler, is 26.02mmHg. Pulmonic Valve: The pulmonic | | | valve is normal. Pulmonic Valve: Trivial pulmonic regurgitation. | | | Pericardium: There is no pericardial effusion. IVC/Hepatic Veins: The | | | IVC was not well visualized. Aorta: The aortic root, ascending aorta | | | and aortic arch are normal. Mass: No mass visualized Thrombus: No | | | clot visualized Thrombus: No vegetation visualized. Septum: No ASD | | | observed. Septum: No VSD observed. MEASUREMENTS | | | Ao asc: 2.93 cm LA Major: 5.37 cm EDV(Teich): 82.79 ml | | | IVSd: 1.21 cm LVIDd: 4.29 cm LVPWd: 1.06 cm LVOT Area: | | | 4.25 cm2 LVOT Diam: 2.32 cm %FS: 33.02 % EF(Teich): 61.88 | | | % ESV(Teich): 31.55 ml LVIDs: 2.87 cm SV(Teich): 51.23 ml | | | RA Major: 4.62 cm RVIDd: 3.39 cm LVEF MOD A2C: 62.71 % SV | | | MOD A2C: 50.99 ml LVEF MOD A4C: 58.73 % SV MOD A4C: 63.39 | | | ml EF Biplane: 59.80 % LVEDV MOD BP: 94.73 ml LVESV MOD BP: | | | 38.08 ml LVEDV MOD A2C: 81.32 ml LVLd A2C: 8.41 cm LVEDV | | | MOD A4C: 107.92 ml LVLd A4C: 8.61 cm LVESV MOD A2C: 30.32 | | | ml LVLs A2C: 6.70 cm LVESV MOD A4C: 44.53 ml LVLs A4C: | | | 7.25 cm LAESV(A-L): 58.33 ml LAESV Index (A-L): 23.80 ml/m2 | | | LAAs A2C: 17.19 cm2 LAESV A-L A2C: 46.10 ml LALs A2C: 5.44 | | | cm LAAs A4C: 21.75 cm2 LAESV A-L A4C: 69.81 ml LALs A4C: | | | 5.75 cm Ao Diam: 3.50 cm LA Diam: 4.28 cm LA/Ao: 1.22 AV | | | maxP.27 mmHg AV meanP.24 mmHg AV Vmax: 1.03 m/s AV | | | Vmean: 0.70 m/s AV VTI: 20.32 cm CHEMO Vmax: 3.77 cm2 CHEMO | | | (VTI): 3.73 cm2 LVOT maxP.37 mmHg LVOT meanP.74 | | | mmHg LVSI Dopp: 31.01 ml/m2 LVSV Dopp: 75.99 ml LVOT Vmax: | | | 0.91 m/s LVOT Vmean: 0.61 m/s LVOT VTI: 17.87 cm IVRT: | | | 96.88 ms MV A Fadi: 0.71 m/s MV Dec [place]: 5.69 m/s2 MV DecT: | | | 143.40 ms MV E Fadi: 0.81 m/s MV E/A Ratio: 1.13 MV PHT: | | | 41.58 ms MVA By PHT: 5.29 cm2 Septal e': 0.08 m/s Septal | | | E/e': 10.17 Lateral e': 0.10 m/s Lateral E/e': 8.09 RAP: | | | 10 mmHg RVSP: 26.02 mmHg TR maxP.02 mmHg TR Vmax: | | | 2.00 m/s It Sales Representative: KATERINA Authenticated by: JUAN BERNARD MD | | | Report Date/Time: -- [id number] | | + + + + + | Procedure Note | + + | Santhosh, Rad Conversion - 03/31/2019 11:14 PM PDT Patient Name: Sadi LEMA of | | : 1980 Performing Physician: JUAN BERNARD | | INDICATIONS C | | AD with stenting CONCLUSIONS 1. Overall left ventricular systolic function is | | normal with, an EF between 55 - 60 %.2. There is mild concentric left ventricular | | hypertrophy. FINDINGS--------ECG rhythm: Sinus rhythm.Study: A 2-dimensional | | transthoracic echocardiogram with m-mode, spectral and color flow Doppler was | | perfomed.Study: This was a technically adequate study.Left Ventricle: Overall left | | ventricular systolic function is normal with, an EF between 55 - 60 %.Left Ventricle: | | The left ventricle cavity size is normal.Left Ventricle: There is mild concentric left | | ventricular hypertrophy.Left Ventricle: No regional wall motion abnormalities.Left | | Ventricle: The diastolic filling pattern is normal for the age of the patient.Right | | Ventricle: The right ventricle is mildly enlarged measuring between 3.4 - 3.7 cm.Left | | Atrium: The left atrium is mildly enlarged by length but normal by volume.Right Atrium: | | The right atrial size is normal.Aortic Valve: The aortic valve is trileaflet and appears | | structurally normal.Aortic Valve: There is no evidence of aortic regurgitation.Aortic | | Valve: There is no evidence of aortic stenosis.Mitral Valve: The mitral valve is | | normal.Mitral Valve: There is trivial mitral regurgitation.Tricuspid Valve: The | | tricuspid valve appears structurally normal.Tricuspid Valve: Trivial tricuspid | | regurgitation present.Tricuspid Valve: There is no evidence of pulmonary | | hypertension.Tricuspid Valve: The right ventricular systolic pressure (pulmonary artery | | systolic pressure), as measured by Doppler, is 26.02mmHg.Pulmonic Valve: The pulmonic | | valve is normal.Pulmonic Valve: Trivial pulmonic regurgitation.Pericardium: There is no | | pericardial effusion.IVC/Hepatic Veins: The IVC was not well visualized.Aorta: The | | aortic root, ascending aorta and aortic arch are normal.Mass: No mass | | visualizedThrombus: No clot visualizedThrombus: No vegetation visualized.Septum: No ASD | | observed.Septum: No VSD observed. MEASUREMENTS Ao asc: 2.93 cmLA Major: | | 5.37 cmEDV(Teich): 82.79 mlIVSd: 1.21 cmLVIDd: 4.29 cmLVPWd: 1.06 cmLVOT Area: | | 4.25 [id number] Diam: 2.32 cm%FS: 33.02 %EF(Teich): 61.88 %ESV(Teich): 31.55 | | mlLVIDs: 2.87 cmSV(Teich): 51.23 mlRA Major: 4.62 cmRVIDd: 3.39 cmLVEF MOD A2C: | | 62.71 %SV MOD A2C: 50.99 mlLVEF MOD A4C: 58.73 %SV MOD A4C: 63.39 mlEF Biplane: | | 59.80 %LVEDV MOD BP: 94.73 mlLVESV MOD BP: 38.08 mlLVEDV MOD A2C: 81.32 mlLVLd | | A2C: 8.41 cmLVEDV MOD A4C: 107.92 mlLVLd A4C: 8.61 cmLVESV MOD A2C: 30.32 mlLVLs | | A2C: 6.70 cmLVESV MOD A4C: 44.53 mlLVLs A4C: 7.25 cmLAESV(A-L): 58.33 mlLAESV | | Index (A-L): 23.80 ml/m2LAAs A2C: 17.19 [id number] A-L A2C: 46.10 mlLALs A2C: 5.44 | | cmLAAs A4C: 21.75 [id number] A-L A4C: 69.81 mlLALs A4C: 5.75 cmAo Diam: 3.50 cmLA | | Diam: 4.28 cmLA/Ao: 1.22AV maxP.27 mmHgAV meanP.24 mmHgAV Vmax: 1.03 | | m/April Vmean: 0.70 m/April VTI: 20.32 cmAVA Vmax: 3.77 cm2AVA (VTI): 3.73 [id number] | | maxP.37 mmHgLVOT meanP.74 mmHgLVSI Dopp: 31.01 ml/m2LVSV Dopp: 75.99 | | mlLVOT Vmax: 0.91 m/sLVOT Vmean: 0.61 m/sLVOT VTI: 17.87 cmIVRT: 96.88 msMV A | | Fadi: 0.71 m/sMV Dec [place]: 5.69 m/s2MV DecT: 143.40 msMV E Fadi: 0.81 m/sMV E/A | | Ratio: 1.13MV PHT: 41.58 msMVA By PHT: 5.29 hb4Qaqccq e': 0.08 m/sSeptal E/e': | | 10.17Lateral e': 0.10 m/sLateral E/e': 8.09RAP: 10 mmHgRVSP: 26.02 mmHgTR | | maxP.02 mmHgTR Vmax: 2.00 m/s It Sales Representative: BETTYuthenticated by: JUAN | | NORMAGERDA MATIASdeni Date/Time: -- [id number] IMPRESSION: 1. Overall left | | ventricular systolic function is normal with, an EF between 55 - 60 %.2. There is mild | | concentric left ventricular hypertrophy. | |Septum: No ASD observed. | |Septum: No VSD observed. | | | |MEASUREMENTS | | | |Ao asc: 2.93 cm | |LA Major: 5.37 cm | |EDV(Teich): 82.79 ml | |IVSd: 1.21 cm | |LVIDd: 4.29 cm | |LVPWd: 1.06 cm | |LVOT Area: 4.25 cm2 | |LVOT Diam: 2.32 cm | |%FS: 33.02 % | |EF(Teich): 61.88 % | |ESV(Teich): 31.55 ml | |LVIDs: 2.87 cm | |SV(Teich): 51.23 ml | |RA Major: 4.62 cm | |RVIDd: 3.39 cm | |LVEF MOD A2C: 62.71 % | |SV MOD A2C: 50.99 ml | |LVEF MOD A4C: 58.73 % | |SV MOD A4C: 63.39 ml | |EF Biplane: 59.80 % | |LVEDV MOD BP: 94.73 ml | |LVESV MOD BP: 38.08 ml | |LVEDV MOD A2C: 81.32 ml | |LVLd A2C: 8.41 cm | |LVEDV MOD A4C: 107.92 ml | |LVLd A4C: 8.61 cm | |LVESV MOD A2C: 30.32 ml | |LVLs A2C: 6.70 cm | |LVESV MOD A4C: 44.53 ml | |LVLs A4C: 7.25 cm | |LAESV(A-L): 58.33 ml | |LAESV Index (A-L): 23.80 ml/m2 | |LAAs A2C: 17.19 cm2 | |LAESV A-L A2C: 46.10 ml | |LALs A2C: 5.44 cm | |LAAs A4C: 21.75 cm2 | |LAESV A-L A4C: 69.81 ml | |LALs A4C: 5.75 cm | |Ao Diam: 3.50 cm | |LA Diam: 4.28 cm | |LA/Ao: 1.22 | |AV maxP.27 mmHg | |AV meanP.24 mmHg | |AV Vmax: 1.03 m/s | |AV Vmean: 0.70 m/s | |AV VTI: 20.32 cm | |CHEMO Vmax: 3.77 cm2 | |CHEMO (VTI): 3.73 cm2 | |LVOT maxP.37 mmHg | |LVOT meanP.74 mmHg | |LVSI Dopp: 31.01 ml/m2 | |LVSV Dopp: 75.99 ml | |LVOT Vmax: 0.91 m/s | |LVOT Vmean: 0.61 m/s | |LVOT VTI: 17.87 cm | |IVRT: 96.88 ms | |MV A Fadi: 0.71 m/s | |MV Dec [place]: 5.69 m/s2 | |MV DecT: 143.40 ms | |MV E Fadi: 0.81 m/s | |MV E/A Ratio: 1.13 | |MV PHT: 41.58 ms | |MVA By PHT: 5.29 cm2 | |Septal e': 0.08 m/s | |Septal E/e': 10.17 | |Lateral e': 0.10 m/s | |Lateral E/e': 8.09 | |RAP: 10 mmHg | |RVSP: 26.02 mmHg | |TR maxP.02 mmHg | |TR Vmax: 2.00 m/s | | | |It Sales Representative: KATERINA | |Authenticated by: JUAN BERNARD MD | |Report Date/Time: [id number] | | | |IMPRESSION: | |1. Overall left ventricular systolic function is normal with, an EF between 55 - 60 %. | |2. There is mild concentric left ventricular hypertrophy. | + + documented in this encounter Visit Diagnoses Not on filedocumented in this encounter"
--- OUTSIDE RECORDS SUMMARY | ~2019-07-14 | XMS | Encounter Summary ---
Demographics + + + | Address | [address] | | | [place] [address] | + + + | Home Phone [...] + + + | Author | [place] [employer] [facility] | + + + | Organization | [facility] [...] Providers + +------+ + | Care Assistant Community Director Name | Role | Phone | [...] | | | | MRI BRAIN | [employer] [place], [place] | [address] | | | | | [address] | [address] | [place] | | | | | | Phone: | Research | | | | | | [phone] | Center | | | | | | Fax: | [employer] [place], [place] | | | | | | [phone] | [address] | | | | | | | Phone: | | | | | | | [phone] | | | | | | | Fax: | | | | | | | [phone] | +--------+--------+ + + + + Encounter Details +--------+ + + + + | Date | Type | Department | Care Team | Description | +--------+ + + + + | 05/07/ | Hospital | Radiology/Imaging | | | | 2009 | Encounter | Lab at [facility] [address] | | | | | | [place] Mailcode: | | | | | | [id number] | [facility], | | | | | | Building | | | | | | Floor [facility] [place] | | | | | | [address] | | | | | | [phone] | | | +--------+ + + + [...] | | 2020 | Visit | | [address] | | | | | | [address] | | | | | | [place], [place] | | | | | | [address] | | | | | | [phone] | | | | | | | [...] | | + +---------+ + + | [facility] | | | | | RADIOLOGY | | | | + +---------+ + + documented in this encounter Visit Diagnoses + + | Diagnosis | + + | Pituitary adenoma (HCC) Benign neoplasm of pituitary gland and craniopharyngeal duct | | (pouch) | + + documented in this encounter"
--- OUTSIDE RECORDS SUMMARY | ~2019-07-14 | XMS | Encounter Summary ---
Demographics + + + | Address | [address] | | | [place] [address] | + + + | Home Phone [...] + + + | Author | [place] [employer] [facility] | + + + | Organization | [facility] | [...] Providers + +------+ + | Care Supervisor Die Casting Name | Role | Phone | + +------+ + | Jhonny Rodriguez DO | PCP | | + +------+ + Encounter Details +--------+ + + + + | Date | Type | Department | Care Team | Description | +--------+ + + + + | 09/01/ | Document-Sc | Neurosurgery at | Donnie, | | | 2013 | annwale | [facility] [address] | Cathie | | | | | [place] Mailcode: CH8N | DNP,WILDLIFE CONTROL AGENT,[place] [address] | | | | | [facility] | [place], | | | | | and [place], | [place] [address] | | | | | [place] [address] | [phone] | | | | | [place], [place] | | | | | | [address] | | | | | | [phone] | | | +--------+ + + + [...] Rd | | | | | | [place], [place] | | | | | | [address] | | | | | | [phone] | | | | | | | | +--------+---------+ + + + documented as of this encounter Procedures + +--------+ + + + | Procedure Name | Priori | Date/Time | Associated Diagnosis | Comments | | | ty | | | | + +--------+ + + + | ORDERS OTHER | | 09/01/2013 | | Results for this | | | | 12:00 AM | | procedure are in the | | | | PST | | results section. | + +--------+ + + + | RADIOLOGY | | 03/17/2006 | | Results for this | | | | 12:00 AM | | procedure are in the | | | | PDT | | results section. | + +--------+ + + + | LAB REPORTS | | 01/09/2006 | | Results for this | | | | 12:00 AM | | procedure are in the | | | | PDT | | results section. | + +--------+ + + + documented in this encounter Results ORDERS OTHER (09/01/2013 12:00 AM PST) + + + | Narrative | Performed At | + + + | | | | | | + + + + + | Procedure Note | + + | Pablo Lorenz - 02/02/2014 11:31 AM PDT | + + RADIOLOGY (03/17/2006 12:00 AM PDT) + + + | Narrative | Performed At | + + + | | | | | | + + + + + | Procedure Note | + + | Pablo Lorenz - 02/02/2014 11:31 AM PDT | + + LAB REPORTS (01/09/2006 12:00 AM PDT) + + + | Narrative | Performed At | + + + | | | | | | + + + + + | Procedure Note | + + | Pablo Lorenz - 02/02/2014 11:31 AM PDT | + + + + | Transcriptions | + + | Pablo Lorenz - 02/02/2014 11:31 AM PDT | + + | Other, Faculty - 02/13/2014 1:05 PM PDT | + + documented in this encounter Visit Diagnoses Not on filedocumented in this encounter"
--- OUTSIDE RECORDS SUMMARY | ~2019-07-14 | XMS | Encounter Summary ---
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 | Phone: | Phone: | | | | | (HCC) | [phone] | [phone] | | | | | Glucocortico | Fax: | Fax: | | | | | id | [phone] | [phone] | | | | | deficiency | | | | | | | (HCC) | | | | | | | 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 | | | | | | | (HCC) | | | | | | | Procedures | | | | | | | CA | | | | | | | OFFICE/OUTPT | | | | | | | | | | | | | | VISIT,EST,LE | | | | | | | VL I CA | | | | | | [...] adenoma | | 2015 | Visit | [facility] [address] | Cathie | ([facility]) (Primary Dx); | | | | Rosalva Mailcode: 8N | DNP,LANDSCAPE ENGINEER,[place] [address] | 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[place] for [facility] | Nura Villanuevae [place], | deficiency ([facility]); | | | | and Healing, | [place] [address] | Diabetes insipidus | | | | Building 1 | [phone] | ([facility]); Hypogonadism | | | | [place], [place] | | male; Hypothyroid | | | | [address] | | | | | | [phone] | | | +--------+---------+ + + + [...] in this encounter Progress Notes Cathie Fields, SANIYA,LANDSCAPE ENGINEER,[place] - 11/14/2014 2:05 PM PDTFormatting of this [...] cardiac stent place 02/2011 after a n [place]. At this visit; Symptoms and Complaints: Migraine [...] light. E xtraocular movements are intact. Visual godinze are normal to confrontation as are the [...] solucortef by IM injec tion in the adventism of severe illness, injury or vomiting if [...] Follow up in 6 mths 05/24 with APPLICATIONS MANAGER RM labs. Next MRI 12/2016 CATHIE FIELDS DNP, LANDSCAPE ENGINEER, [place] Senior Controls Technician [facility] [place] [address] [place] [address] Component Latest Ref Rng 11/14/2014 11/14/2014 11/14/2014 [...] Fx. Continue 20-25mg HC daily .Will recheck APPLICATIONS MANAGER at next visit. 2. Thyroid. If pt has been taking 175mcg daily, will reduce dose to 150mcg daily. Follow u p at next visit 3. Testosterone. Pt will continue same dose of gel for bone preservation 4. GH. IGf-1 pending. 5. DDAVP no change in dose 6. Vitamin D insufficiency. 3,000IU vitamin D3 daily 7. Follow up in 6 mths. 05/24 documented in this encounter Plan of Treatment +--------+---------+ + + + | Date | Type | Specialty | Care Team | Description | +--------+---------+ + + + | 08/15/ | Office | Cardiology | Zuleika Hernandez, | | | 2019 | Visit | | [address] | | | | | | [address] | | | | | | [place], [place] | | | | | | [address] | | | | | | [phone] | | | | | | | [...] | + + + + + | [facility] [employer] | [address] | [place] [address] | | | SERVICES, SPECIAL | KIMO [...] | + + + + + | [facility] | [address] | [place] [address] | | | VITALY RANKIN | KIMO [...] + | [place] [facility] - | [address] | [place] [address] | | | [place] | | | [...] + | [place] [facility] - | [address] | [place] [address] | | | [place] | | | [...] + | [place] [facility] - | [address] | [place] [address] | | | [facility] | | | | + + + [...] [facility] | [address] | [place] [address] | | | SERVICES, CORE | PARK [...] MIRTHA WOODS | [address] | [place] [address] | | | SERVICES, CORE | KIMO [...]
--- OUTSIDE RECORDS SUMMARY | ~2019-07-14 | XMS | Encounter Summary ---
Demographics + + + | Address | [address] | | | [place] [address] | + + + | Home Phone [...] + + + | Author | [place] [employer] [facility] | + + + | Organization | [facility] | + [...] Team Providers + +------+ + | Care Durability Technician Name | Role | Phone | [...] | | | Rosal[place] Mailcode: CH8N | DNP,PROFESSOR OF CHEMISTRY,[place] [address] | | | | | [facility] | [address] [place], | | | | | and [place], | [place] [address] | | | | | [facility] | [phone] | | | | | Floor [place], [place] | | | | | | [address] | | | | | | [phone] | | | +--------+ + + + [...] | | 2019 | Visit | | [address] | | | | | | [address] | | | | | | [place], [place] | | | | | | [address] | | | | | | [phone] | | | | | | | | +--------+---------+ + + + documented as of this encounter Visit Diagnoses Not on filedocumented in this encounter"
--- OUTSIDE RECORDS SUMMARY | ~2019-07-14 | XMS | Encounter Summary ---
Demographics + + + | Address | [address] | | | [place] [address] | + + + | Home Phone [...] + + | Author | [place] [employer] [facility] | + + + | Organization | [facility] [...] Team Providers + +------+ + | Care Subscription Clerk Name | Role | Phone | [...] Request | | 2012 | | [facility] [address] | Cathie, | | | | | Ros[place] Mailcode: CH8N | DNP,PERITONEAL DIALYSIS REGISTERED NURSE,[place] [address] | | | | | [facility] | [address] [place], | | | | | and Healing, | [place] [address] | | | | | Building 1 | [phone] | | | | | [place], [place] | | | | | | [address] | | | | | | [phone] | | | +--------+ + + + [...] Rd | | | | | | [place], [place] | | | | | | [address] | | | | | | [phone] | | | | | | | [...]
--- OUTSIDE RECORDS SUMMARY | ~2019-07-14 | XMS | Encounter Summary ---
Demographics + + + | Address | [address] | | | [place] [address] | + + + | Home Phone [...] + + | Author | [place] [employer] [facility] | + + + | Organization | [facility] | + + + | Address | Unknown | + + + | Phone | Unavailable | + + + Support + + +---------+ + | Name | Relationship | Address | Phone | + + +---------+ + | Alexandria Dixon | ECON | Unknown | | + + +---------+ + Care Team Providers + +------+ + | Care Community Assistant Name | Role | Phone | + +------+ + | Priscilla Ramírez PA-C | PCP | | + +------+ + Encounter Details +--------+ + + + + | Date | Type | Department | Care Team | Description | +--------+ + + + + | 06/08/ | MyChart | Cardiology General | | Please Schedule | | 2019 | Encounter | at [facility] [address] | | Appointment | | | | Nura [address]well Mailcode: | | | | | | [address] | | | | | | Health and Healing, | | | | | | Building | | | | | | floor [place], [place] | | | | | | [address] | | | | | | [phone] | | | +--------+ + + + [...] | | 2019 | Visit | | [address] | | | | | | [address] | | | | | | [place], [place] | | | | | | [address] | | | | | | [phone] | | | | | | | | +--------+---------+ + + + documented as of this encounter Visit Diagnoses Not on filedocumented in this encounter"
--- OUTSIDE RECORDS SUMMARY | ~2019-07-14 | XMS | Encounter Summary ---
Demographics + + + | Address | [address] | | | [place] [address] | + + + | Home Phone [...] + + + | Author | [place] [employer] [facility] | + + + | Organization | Replaced By [facility] [...] Team Providers + +------+ + | Care Plastic Sheeting Cutter Name | Role | Phone | + +------+ + | No Pcp Per Patient | PCP | Unavailable | + +------+ + Encounter Details +--------+ + + + + | Date | Type | Department | Care Team | Description | +--------+ + + + + | 04/01/ | Visual Merchandising Coordinator | Otolaryngology | Misael West, | Acute Maxillary | | 2005 | | Head and Neck | MD [address] | Sinusitis (Primary | | | | Surgery Services at | [address] | Dx) | | | | PPV [address] | [place], [place] | | | | | [address] | [address] | | | | | Mailcode: JORDAN | [phone] | | | | | Dwain Zendejas | | | | | | [place], [place] | | | | | | [address] | | | | | | [phone] | | | +--------+ + + + [...] | 08/15/ | Office | Cardiology | uZleika Hernandez, | | | 2019 | Visit | | [address] | | | | | | [address] | | | | | | [place], [place] | | | | | | [address] | | | | | | [phone] | | | | | | | [...]
--- OUTSIDE RECORDS SUMMARY | ~2019-07-14 | XMS | Encounter Summary ---
Demographics + + + | Address | [address] | | | [place] [address] | + + + | Home Phone [...] + + + | Author | [place] [employer] [facility] | + + + | Organization | [facility] [...] Team Providers + +------+ + | Care Mandate Retail Service Merchandiser Name | Role | Phone | + [...] 08/13/ | Refill | Neurosurgery at | Donnie, | Refill Request | | 2009 | | [facility] [address] | Cathie, | | | | | Rosal[place] Mailcode: CH8N | DNP,INORGANIC CHEMICAL TECHNICIAN,[place] [address] | | | | | [facility] | [address] [place], | | | | | and [facility] [place] | [place] [address] | | | | | Building 1 | [phone] | | | | | [place], [place] | | | | | | [address] | | | | | | [phone] | | | +--------+--------+ + + + [...] Rd | | | | | | [place], [place] | | | | | | [address] | | | | | | [phone] | | | | | | | | +--------+---------+ + + + documented as of this encounter Visit Diagnoses Not on filedocumented in this encounter"
--- OUTSIDE RECORDS SUMMARY | ~2019-07-14 | XMS | Encounter Summary ---
Demographics + + + | Address | [address] | | | [place] [address] | + + + | Home Phone [...] + + | Author | [place] [employer] [facility] | + + + | Organization | 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
--- OUTSIDE RECORDS SUMMARY | ~2019-07-14 | XMS | Encounter Summary ---
Demographics + + + | Address | [address] | | | [place] [address] | + + + | Home Phone [...] + + + | Author | [place] [employer] [facility] | + + + | Organization | [facility] | + + + | Address | Unknown | + + + | Phone | Unavailable | + + + Support + + +---------+ + | Name | Relationship | Address | Phone | + + +---------+ + | Alexandria Dixon | ECON | Unknown | | + + +---------+ + Care Team Providers + +------+ + | Care Care Team Coordinator Scheduler Name | Role | Phone | + [...] Refills | | 2009 | Encounter | [facility] [address] | Cathie | | | | | [place] Mailcode: CH8N | DNP,SILK CONDITIONER,[place] [address] | | | | | [facility] | [address]ura [address] [place], | | | | | and Healing, | [place] [address] | | | | | Building 1 | [phone] | | | | | [place], [place] | | | | | | [address] | | | | | | [phone] | | | +--------+ + + + [...] Rd | | | | | | [place], [place] | | | | | | [address] | | | | | | [phone] | | | | | | | | +--------+---------+ + + + documented as of this encounter Visit Diagnoses Not on filedocumented in this encounter"
--- OUTSIDE RECORDS SUMMARY | ~2019-07-14 | XMS | Encounter Summary ---
Demographics + + + | Address | [address] | | | [place] [address] | + + + | Home Phone [...] + + + | Author | [place] [employer] [facility] | + + + | Organization | [facility] | [...] Team Providers + +------+ + | Care Linen Manager Name | Role | Phone | [...] | | | | MRI BRAIN | [place], [place] | [address] | | | | | [address] | [address] | [place] | | | | | | Phone: | Research | | | | | | [phone] | [place] | | | | | | Fax: | [place], [place] | | | | | | [phone] | [address] | | | | | | | Phone: | | | | | | | [phone] | | | | | | | Fax: | | | | | | | [phone] | +--------+--------+ + + + + Encounter Details +--------+ + + + + | Date | Type | Department | Care Team | Description | +--------+ + + + + | 02/18/ | Fly Winder | Neurosurgery at | Jaclyn Crawford, | Pituitary adenoma | | 2009 | | [facility] [address] | [address] | (HCC) (Primary Dx) | | | | Ave Mailcode: CH8N | [address] | | | | | [facility] | [place], [place] | | | | | and Healing, | [address] | | | | | Building 1 | [phone] | | | | | [place], [place] | | | | | | [address] | | | | | | [phone] | | | +--------+ + + + [...] Rd | | | | | | [place], [place] | | | | | | [address] | | | | | | [phone] | | | | | | | [...] PRINCE | | | | | | SHEELASTATUS FINAL / | | | | | | Dr. SURESH BUCHANANUS | | | | | | RESULT MODIFIED / | | | | | | SURESH MOSELEY FINAL | | | | | | / Dr. PRINCE | | | | | | SHEELASTATUS RESULT | | | | | | MODIFIED / Dr. PRINCE | | | | | | SHEELASTATUS PENDING | | | | | | FINAL APPROVAL / - | | | | | | -STATUS PRELIMINARY - | | | | | | UNSIGNED / Dr. - - | | | | + [...]
--- OUTSIDE RECORDS SUMMARY | ~2019-07-14 | XMS | Encounter Summary ---
Demographics + + + | Address | [address] | | | [place] [address] | + + + | Home Phone [...] + + + | Author | [place] [employer] [facility] | + + + | Organization | [facility] [...] Providers + +------+ + | Care Gas Mask Assembler Name | Role | Phone | [...] | | 2011 | Encounter | [facility] [address] | Cathie | | | | | [place] Mailcode: CH8N | DNP,FLEX O WRITER OPERATOR,[place] [address] | | | | | [facility] | Nura [address] [place], | | | | | and Healing, | [place] [address] | | | | | [place] [address] | [phone] | | | | | [place], [place] | | | | | | [address] | | | | | | [phone] | | | +--------+ + + + [...] Rd | | | | | | [place], [place] | | | | | | [address] | | | | | | [phone] | | | | | | | | +--------+---------+ + + + documented as of this encounter Visit Diagnoses Not on filedocumented in this encounter"
--- OUTSIDE RECORDS SUMMARY | ~2019-07-14 | XMS | Encounter Summary ---
Demographics + + + | Address | [address] | | | [place] [address] | + + + | Home Phone | | + + + | Preferred Language | Unknown | + + + | Marital Status | Single | + + + | Advent Affiliation | Unknown | + + + | Race | Unknown | + + + | Ethnic Group | Unknown | + + + Author + + + | Author | [facility] | | | and [place] | + + + | Organization | [facility] | | | and [place] [...] Team Providers + +------+ + | Care Protein Chemist Name | Role | Phone | [...] | Sumanth Champion | | | | House Builder / | Obstructive | Jhonny Perkins DO | D, BRETT [address] | | | | Sleep | sleep apnea | [address] [address] | | | | Medicine | (adult) | [address] | [place], | | | | | (pediatric) | [address] | [place] [address] | | | | | 1yr bring | [address] | Phone: | | | | | all equip | [place], [place] | [phone] | | | | | pw@ [address] | [address] | Fax: | | | | | Procedures | Phone: | [phone] | | | | | OFFICE VISIT | [phone] | | | | | | EXTENDED | Fax: | | | | | | | [phone] | | +--------+--------+ + + + + Encounter Details +--------+---------+ + + + | Date | Type | Department | Care Team | Description | +--------+---------+ + + + | 08/16/ | Office | [facility] [facility] | Sumanth Champion PA | MALLIKA on CPAP (Primary | | 2015 | Visit | SLEEP DISORDER [address] | [address] | Dx) | | | | [address] [place] | [place] | | | | | [place] [address] | [address] | | | | | [phone] | | | +--------+---------+ + + + [...] Insomnia Severity Index Insomnia Severity Index 10 Wooster Sleepiness Scale Sitting and reading 2 Watching [...] mask obtained from: [facility] [place] pressure: 12-18 cm 95%: 13.2 cm maximum: [...] months, sooner prn. Thirty minutes were spent hoyy-qe-jnyz, wi th the majority of time spent [...] 2019 | Visit | | [address] | | | | | | [place] | | | | | | [address] | | | | | | | | +--------+---------+ + + + documented as of this encounter Visit Diagnoses + + | Diagnosis | + + | MALLIKA on CPAP - Primary Obstructive sleep apnea (adult) (pediatric) | + + documented in this encounter"
--- OUTSIDE RECORDS SUMMARY | ~2019-07-14 | XMS | Encounter Summary ---
Demographics + + + | Address | [address] | | | [place] [address] | + + + | Home Phone [...] + + + | Author | [facility] | | | and [place] | + + + | Organization | [facility] | | | and [...] Team Providers + +------+ + | Care Search Engine Optimization Specialist Name | Role | Phone | [...] | | | ed YH auth | [address] | [place] [address] | | | | | for | Phone: | Phone: | | | | | Procedures | [phone] | [phone] | | | | | OFFICE VISIT | Fax: | Fax: | | | | | REGULAR | [phone] | [phone] | +--------+--------+ + + + + Encounter [...] Dx); 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[place], [place] | [place] [address] | septum; Obstructive | | | | [address] | [phone] | sleep apnea (adult) | | | | [phone] | | (pediatric) | +--------+---------+ + + [...] MD - 04/30/2016 12:[address] [facility] OTOLARYNG[facility] [address] [place] [address] [id number] OFFICE NOTE MCKAY ZAFAR MD Patient: FAROOQ LEMA Admitting: MR #: [id number] LOC: PT TYPE: Adm Date: 04/30/2016 : [...] 04/30/2016 12:04:16 Transcribed on 05/01/2016 14:41:16 by [facility] job# [id number] Confirmation #: [id number] cc: JINNY BERGERON MD a [facility] [place], Mckay Bahena MD - 04/30/2016 12:01 PM PDTSee dictation # [id number] signed by Mckay Zafar MD at 04/30/2016 [...] [place] | | | | | | [address] | | | | | | | | +--------+---------+ + + + documented as of this encounter Visit Diagnoses + + | Diagnosis | + + | Hypertrophy of nasal turbinates - Primary | + + | Deviated nasal septum | + + | Obstructive sleep apnea (adult) (pediatric) | + + documented in this encounter
--- OUTSIDE RECORDS SUMMARY | ~2019-07-14 | XMS | Encounter Summary ---
Demographics + + + | Address | [address] | | | [place] [address] | + + + | Home Phone [...] + + + | Author | [place] [employer] [facility] | + + + | Organization | [facility] [...] Team Providers + +------+ + | Care Pneumatic Deicer Inspector Name | Role | Phone | + +------+ + | Priscilla Ramírez PA-C | PCP | | + +------+ + Encounter Details +--------+ + + + + | Date | Type | Department | Care Team | Description | +--------+ + + + + | 07/07/ | Steamer Operator | LAB CORE [address] | Alexandria Alford MD | Preop examination | | 2015 | | [address] | [address] | (Primary Dx) | | | | [place], [place] | [address] [place], | | | | | [address] | [place] [address] | | | | | [phone] | [phone] | | | | | | | [...] Rd | | | | | | [place], [place] | | | | | | [address] | | | | | | [phone] | | | | | | | | +--------+---------+ + + + documented as of this encounter Visit Diagnoses + + | Diagnosis | + + | Preop examination - Primary Preoperative examination, unspecified | + + documented in this encounter"
--- OUTSIDE RECORDS SUMMARY | ~2019-07-14 | XMS | Encounter Summary ---
Demographics + + + | Address | [address] | | | [place] [address] | + + + | Home Phone [...] + + + | Author | [place] [employer] [facility] | + + + | Organization | [facility] | + [...] Team Providers + +------+ + | Care Personnel Manager Name | Role | Phone | + +------+ + | Jinny Bergeron MD | PCP | | + +------+ + Encounter Details +--------+ + + + + | Date | Type | Department | Care Team | Description | +--------+ + + + + | 05/22/ | MyChart | Neurosurgery at | [place], | Feeling ill | | 2015 | Encounter | [facility] [address] | Cathie | | | | | [place] Mailcode: CH8N | DNP,BALANCE WEIGHER,[place] [address] | | | | | [facility] | Nura Loya, | | | | | jannette [place], | [place] [address] | | | | | [place] [address] | [phone] | | | | | [place], [place] | | | | | | [address] | | | | | | [phone] | | | +--------+ + + + [...] | | | | | | [place], [place] | | | | | | [address] | | | | | | [phone] | | | | | | | | +--------+---------+ + + + documented as of this encounter Visit Diagnoses Not on filedocumented in this encounter"
--- OUTSIDE RECORDS SUMMARY | ~2019-07-14 | XMS | Encounter Summary ---
Demographics + + + | Address | [address] | | | [place] [address] | + + + | Home Phone [...] + + + | Author | [place] [employer] [facility] | + + + | Organization | [facility] [...] Team Providers + +------+ + | Care Division Controller Name | Role | Phone | [...] Refill Request | | 2008 | | [facility] [address] | Cathie, | | | | | [place] Mailcode: CH8N | DNP,ARTIFICIAL FLOWERS STARCHER,[place] [address] | | | | | [facility] | Nura Blackwell [place], | | | | | and [facility], | [place] [address] | | | | | Building 1 | [phone] | | | | | [place], [place] | | | | | | [address] | | | | | | [phone] | | | +--------+--------+ + + + [...] Rd | | | | | | [place], [place] | | | | | | [address] | | | | | | [phone] | | | | | | | | +--------+---------+ + + + documented as of this encounter Visit Diagnoses Not on filedocumented in this encounter"
--- OUTSIDE RECORDS SUMMARY | ~2019-07-14 | XMS | Encounter Summary ---
Demographics + + + | Address | [address] | | | [place] [address] | + + + | Home Phone [...] + + + | Author | [place] [employer] [facility] | + + + | Organization | [facility] [...] Providers + +------+ + | Care Sales Expert Home Theater Name | Role | Phone | + [...] Refill Request | | 2011 | | [facility] [address] | Cathie, | | | | | [place] Mailcode: CH8N | DNP,LINE SERVICE SUPERVISOR,[place] [address] | | | | | [facility] | Nura Blackwell [place], | | | | | and Healing, | [place] [address] | | | | | Building 1 | [phone] | | | | | [place], [place] | | | | | | [address] | | | | | | [phone] | | | +--------+--------+ + + + [...] Rd | | | | | | [place], [place] | | | | | | [address] | | | | | | [phone] | | | | | | | | +--------+---------+ + + + documented as of this encounter Visit Diagnoses Not on filedocumented in this encounter"
--- OUTSIDE RECORDS SUMMARY | ~2019-07-14 | XMS | Encounter Summary ---
Demographics + + + | Address | [address] | | | [place] [address] | + + + | Home Phone [...] + + + | Author | [place] [employer] [facility] | + + + | Organization | [facility] | + [...] Team Providers + +------+ + | Care Grease Machine Worker Name | Role | Phone | [...] | | 2017 | Encounter | at [facility] [address] | | Freight Team Associate | | | | Nura Blackwell Mailcode: | | | | | | [facility] | | | | | [facility], | | | | | | [facility] | | | | | | floor [place], [place] | | | | | | [address] | | | | | | [phone] | | | +--------+ + + + [...] Rd | | | | | | [place], [place] | | | | | | [address] | | | | | | [phone] | | | | | | | | +--------+---------+ + + + documented as of this encounter Visit Diagnoses Not on filedocumented in this encounter"
--- OUTSIDE RECORDS SUMMARY | ~2019-07-14 | XMS | Encounter Summary ---
Demographics + + + | Address | [address] | | | [place] [address] | + + + | Home Phone [...] Team Providers + +------+ + | Care Cream Separator Operator Name | Role | Phone | [...] as of this encounter Progress Notes Interface, Statuary Painter In - 10/09/2005 2:04 AM PST [id number] 09/16/2005 [id number] TOREY TRIVEDI V Consulting Physician: Lb Guillaume [...] Medical History: Eye surgery in 2004 at [facility] for a deviating eye. Medications: Dexamethasone [...] Shruti Landa. Lb Guillaume M.D., Ph.D. / [id number] / [id number] / [id number] / [id number] Electronically signed by Lb Guillaume (Bill) 10-08-2005 05:57:15 AM documented i n this encounter Plan of Treatment +--------+---------+ + + + | Date | Type | Specialty | Care Team | Description | +--------+---------+ + + + | 08/15/ | Office | Cardiology | Zuleika Hernandez, | | | 2019 | Visit | | [address] | | | | | | [address] | | | | | | [place] | | | | | | [address] | | | | | | [phone] | | | | | | | | +--------+---------+ + + + documented as of this encounter Visit Diagnoses Not on filedocumented in this encounter"
--- OUTSIDE RECORDS SUMMARY | ~2019-07-14 | XMS | Encounter Summary ---
Demographics + + + | Address | [address] | | | [place] [address] | + + + | Home Phone [...] + + + | Author | [place] [employer] [facility] | + + + | Organization | [facility] | [...] Team Providers + +------+ + | Care Sustainment Logistics Analyst Name | Role | Phone | + +------+ + | Jhonny Rodriguez DO | PCP | | + +------+ + Encounter Details +--------+ + + + + | Date | Type | Department | Care Team | Description | +--------+ + + + + | 10/06/ | MyChart | Neurosurgery at | [place]nie, | | | 2012 | Encounter | [facility] [address] | Cathie | | | | | [place] Mailcode: CH8N | DNP,CONSTRUCTION REPRESENTATIVE,[place] [address] | | | | | [facility] | [address] [place], | | | | | and [place], | [place] [address] | | | | | [place] [address] | [phone] | | | | | [place], [place] | | | | | | [address] | | | | | | [phone] | | | +--------+ + + + [...] | | | | | | [place], [place] | | | | | | [address] | | | | | | [phone] | | | | | | | | +--------+---------+ + + + documented as of this encounter Visit Diagnoses Not on filedocumented in this encounter"
--- OUTSIDE RECORDS SUMMARY | ~2019-07-14 | XMS | Encounter Summary ---
Demographics + + + | Address | [address] | | | [place] [address] | + + + | Home Phone [...] + + + | Author | [place] [employer] [facility] | + + + | Organization | [facility] [...] Team Providers + +------+ + | Care Aircraft Skin Burnisher Name | Role | Phone | + +------+ + | Priscilla Ramírez PA-C | PCP | | + +------+ + Encounter Details +--------+ + + + + | Date | Type | Department | Care Team | Description | +--------+ + + + + | 07/08/ | Procedure | 6A Intra Op [facility] | | | | 2016 | Pass | [facility] | | | | | | Admitting Desk | | | | | | Located on the 9 | | | | | | floor [address] | | | | | | [address] | | | | | | [place], [place] | | | | | | [address] | | | +--------+ + + + [...] Rd | | | | | | [place], [place] | | | | | | [address] | | | | | | [phone] | | | | | | | | +--------+---------+ + + + documented as of this encounter Visit Diagnoses Not on filedocumented in this encounter"
--- OUTSIDE RECORDS SUMMARY | ~2019-07-14 | XMS | Encounter Summary ---
Demographics + + + | Address | [address] | | | [place] [address] | + + + | Home Phone [...] Team Providers + +------+ + | Care Web Offset Press Feeder Name | Role | Phone | + +------+ + PCP | Unavailable | + +------+ + Encounter Details +--------+ + + + + | Date | Type | Department | Care Team | Description | +--------+ + + + + | 03/10/ | Orders Only | | Record, Operation | | | 2005 | | | | | +--------+ + [...] Rd | | | | | | [place], [place] | | | | | | [address] | | | | | | [phone] | | | | | | | | +--------+---------+ + + + documented as of this encounter Procedures + +--------+ + + + | Procedure Name | Priori | Date/Time | Associated Diagnosis | Comments | | | ty | | | | + +--------+ + + + | OPERATION RECORD | | 10/17/2004 | | Results for this | | | | | | procedure are in the | | | | | | results section. | + +--------+ + + + documented in this encounter Results OPERATION RECORD (10/17/2004) + + | Transcriptions | + + | Interface, Miller Wood Flour In - 07/30/2005 7:32 PM PST | | [id number] | | [id number] TOREY TRIVEDI V | | | | Date: 10/17/2004 | | | | Attending Surgeon: Jessenia Amor M.D. | | | | Ice Resurfacing Machine Operators(s): Juan Delgado M.D. | | Oksana Solomon M.D. 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 | | | | Procedures Performed: | | Left medial rectus recession of 3.0 mm with one-third tendon width | | infraplacement. | | Left lateral rectus resection 3.5 mm with a one-third tendon width | | infraplacement. | | | | Anesthesia: | | General. | | | | Complications: | | None. | | | | Specimens: | | None. | | | | Findings: | | None. | | | | Blood Loss: | | Minimal. | | | | Indications: | | The patient with 6 months of symptomatic esotropia with diplopia at near | | and distance with a cranial nerve 6 palsy. | | | | Procedure: | | Prior to the patient being taken to the OR and before any anesthetics were | | given, measurements were re-performed. The patient in primary was found to | | have a 14-prism diopter esotropia. However, he would accept up to a | | 20-prism diopter for fusion with accommodation. He did sensory fuse at 14 | | to 16 base-out prism at distance and 10 to 12 base-out prism at near. On | | left gaze, his esotropia increased to about 18 prism diopters, and he also | | had a 5-prism diopter left HT. In right gaze, he had about a 3-prism | | diopter ET. The patient was taken to the OR and underwent endotracheal | | intubation by the Anesthesia staff without incident. Left eye was prepped | | and draped in the normal sterile fashion. Attention was first turned to | | the medial rectus. An inferotemporal limbal incision was made to the | | conjunctiva down to the sclera. Muscle was isolated on a Jersey hook and | | conjunctiva was reflected. Tenon's capsule was dissected away from the | | muscle without incident. Light cautery was applied to the insertion and to | | any bleeders, and good hemostasis was accomplished. A 6-0 Vicryl suture | | was then used to secure the muscle. A locking bite was made centrally, and | | then each side was done with a normal locking stitch. The muscle was then | | removed from its insertion with a Misbah scissors. It was found to be | | freely mobile although did feel slightly tight. Locking forceps were used | | to true the insertion, and needles were passed through the insertion and | | hung back 3.0 mm. A piece of 6-0 Vicryl was then used to secure the two | | Vicryl pieces together in a noose fashion. This noose was slipped down, | | and muscle distance was rechecked and found to be appropriate. Attention | | was then turned to the left side. Inferotemporal incision was made through | | conjunctiva and Tenon's dissecting down to bare sclera. The lateral rectus | | muscle was isolated on a Mcdonnell and then Raleigh hook. Conjunctiva and | | Tenon's were reflected, and Tenon's was dissected away from the muscle | | using sharp dissection with Misbah scissors. A second Raleigh was then | | passed in the opposite direction under the muscle, and the muscle was | | spread out with calipers. A point 3.5-mm posterior to the insertion was | | measured, and a locking bite was made with 6-0 Vicryl. The muscle was then | | secured using the typical locking suture 3.5-mm back with both sides with | | double armed 6-0. Hemostat was placed anterior to the suture, and then the | | muscle was removed from the insertion using Misbah scissors. Cautery was | | applied to the insertion, and then the stump of muscle was removed. | | Cautery was then applied liberally to the stump. Hemostat was removed and | | muscle found to be well secured and freely mobile. Sutures were then | | passed at the insertion one-third tendon width inferiorly. The muscle was | | pulled up and found to spread nicely. It was secured with a knot, and the | | conjunctiva was closed with 6-0 plain sutures. We then returned to the | | medial side, a 5-0 Mersilene was placed along the superior insertion as a | | traction suture. This was left long, and two 6-0 plain sutures were passed | | through the conjunctiva and tied loosely to be completed tomorrow. Sutures | | were then attached to the upper lid using Maxitrol ointment. Maxitrol | | ointment was instilled to the eye after 2% lidocaine was used to irrigate | | around the muscle. A patch was placed. The patient was sent to the | | Recovery Room in stable condition. He was told to keep the patch and | | shield on overnight and take Tylenol or Vicodin for pain. Prescription was | | provided for the second. The patient to follow up tomorrow morning at 8 | | a.m. in [facility] to see Dr. Delgado and | | Zuleyma. | | | | Dr. Delgado was present for the entire case and performed all vital parts of | | the procedure. | | | | | | | | | | Johan Hebert M.D. | | | | TC / HS | | [id number] / [id number] / [id number] / [id number] | | | | | | C: 10/29/2004 cmw | | | | | | Electronically signed by Juan Delgado 11-12-2004 10:15:31 AM | + + documented in this encounter Visit Diagnoses Not on filedocumented in this encounter"
--- OUTSIDE RECORDS SUMMARY | ~2019-07-14 | XMS | Encounter Summary ---
Demographics + + + | Address | [address] | | | [place] [address] | + + + | Home Phone [...] + + | Author | [place] [employer] [facility] | + + + | Organization | [facility] | [...] Team Providers + +------+ + | Care One Piece Expansion Maker Hand Name | Role | Phone | + +------+ + | Priscilla Ramírez PA-C | PCP | | + +------+ + Encounter Details +--------+ + + + + | Date | Type | Department | Care Team | Description | +--------+ + + + + | 08/22/ | Ancillary | Registration [id number] | | | | 2005 | Registratio | [address] [facility] | | | | | n | [address] Mailcode: RPB07 | | | | | | [place], [place] | | | | | | [address] | | | | | | [phone] | | | +--------+ + + + [...] | | 2019 | Visit | | [address] | | | | | | [address] | | | | | | [place], [place] | | | | | | [address] | | | | | | [phone] | | | | | | | | +--------+---------+ + + + documented as of this encounter Visit Diagnoses Not on filedocumented in this encounter"
--- OUTSIDE RECORDS SUMMARY | ~2019-07-14 | XMS | Encounter Summary ---
Demographics + + + | Address | [address] | | | [place] [address] | + + + | Home Phone [...] + + + | Author | [place] [employer] [facility] | + + + | Organization | [facility] [...] Team Providers + +------+ + | Care Data Warehousing Architect Name | Role | Phone | [...] Description | +--------+--------+ + + + | 07/03/ | Refill | Neurosurgery at | Donnie, | Refill Request | | 2009 | | [facility] [address] | Cathie, | | | | | [place] Mailcode: CH8N | DNP,BOTTOM FILLER,[place] [address] | | | | | [facility] | Nura Blackwell [place], | | | | | and [facility], | [place] [address] | | | | | Building 1 | [phone] | | | | | [place], [place] | | | | | | [address] | | | | | | [phone] | | | +--------+--------+ + + + [...] Rd | | | | | | [place], [place] | | | | | | [address] | | | | | | [phone] | | | | | | | | +--------+---------+ + + + documented as of this encounter Visit Diagnoses Not on filedocumented in this encounter"
--- OUTSIDE RECORDS SUMMARY | ~2019-07-14 | XMS | Encounter Summary ---
Demographics + + + | Address | [address] | | | [place] [address] | + + + | Home Phone | | + + + | Preferred Language | Unknown | + + + | Marital Status | Single | + + + | Christianity Affiliation | NON | + + + | Race | or | + + + | Ethnic Group | Not or | + + + Author + + + | Author | [place] [employer] [facility] | + + + | Organization | [facility] [...] Providers + +------+ + | Care Kettle Loader Name | Role | Phone | + [...] | (Multiple lab | | | | [place] at | [address] | results) | | | | [place] [address] | [place], [place] | | | | | [address] | [address] | | | | | [place], [place] | [phone] | | | | | [address] | | | | | | [phone] | | | +--------+ + + + [...] | | 2019 | Visit | | [address] | | | | | | [address] | | | | | | [place], [place] | | | | | | [address] | | | | | | [phone] | | | | | | | [...]
--- OUTSIDE RECORDS SUMMARY | ~2019-07-14 | XMS | Encounter Summary ---
Demographics + + + | Address | [address] | | | [place] [address] | + + + | Home Phone [...] + + | Author | [place] [employer] [facility] | + + + | Organization | [facility] [...] Providers + +------+ + | Care Computer Typesetter Name | Role | Phone | + +------+ + | Bernardo Pan | PCP | | + +------+ + Encounter Details +--------+ + + + + | Date | Type | Department | Care Team | Description | +--------+ + + + + | 12/11/ | MyChart | Neurosurgery at | Donnie, | RE: Reschedule | | 2017 | Encounter | [facility] [address] | Cathie | | | | | [place] Mailcode: CH8N | DNP,ENTRY EXAMINER,[place] [address] | | | | | [facility] | [address] [place], | | | | | and [place], | [place] [address] | | | | | [facility] 1 | [phone] | | | | | [place], [place] | | | | | | [address] | | | | | | [phone] | | | +--------+ + + + [...] Rd | | | | | | [place], [place] | | | | | | [address] | | | | | | [phone] | | | | | | | | +--------+---------+ + + + documented as of this encounter Visit Diagnoses Not on filedocumented in this encounter"
--- OUTSIDE RECORDS SUMMARY | ~2019-07-14 | XMS | Encounter Summary ---
Demographics + + + | Address | [address] | | | [place] [address] | + + + | Home Phone [...] + + + | Author | [place] [employer] [facility] | + + + | Organization | [facility] [...] Team Providers + +------+ + | Care Collar Pointer Name | Role | Phone | + [...] Description | +--------+--------+ + + + | 08/24/ | Refill | Neurosurgery at | Donnie, | Refill Request | | 2012 | | [facility] [address] | Cathie, | | | | | [place] Mailcode: CH8N | DNP,HAT BODY INSPECTOR,[place] [address] | | | | | [facility] | Nura Blackwell [place], | | | | | and Healing, | [place] [address] | | | | | Building 1 | [phone] | | | | | [place], [place] | | | | | | [address] | | | | | | [phone] | | | +--------+--------+ + + + [...] Rd | | | | | | [place], [place] | | | | | | [address] | | | | | | [phone] | | | | | | | | +--------+---------+ + + + documented as of this encounter Visit Diagnoses Not on filedocumented in this encounter"
--- OUTSIDE RECORDS SUMMARY | ~2019-07-14 | XMS | Encounter Summary ---
Demographics + + + | Address | [address] | | | [place] [address] | + + + | Home Phone [...] + + + | Author | [place] [employer] [facility] | + + + | Organization | [facility] | + [...] Team Providers + +------+ + | Care Manufacturing Engineering Intern Name | Role | Phone | [...] | | | | 8th Floor | [place], [place] | | | | | | [place], [place] | [address] | | | | | | [address] | Phone: | | | | | | Phone: | [phone] | | | | | | [phone] | Fax: | | | | | | Fax: | [phone] | | | | | | [phone] | | +--------+--------+ + + + + Encounter Details +--------+---------+ + + + | Date | Type | Department | Care Team | Description | +--------+---------+ + + + | 09/12/ | Office | Neurosurgery at | Donnie, | Pituitary Adenoma | | 2008 | Visit | [facility] [address] | Cathie, | ([facility]); 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Ave Mailcode: CH8N | DNP,PIPE INSPECTOR,[place] [address] | Hormone Deficiency | | | | [facility] | [address] [place], | ([facility]); 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, | [place] [address] | Insipidus ([facility]); | | | | Building 1 | [phone] | Hypogonadism Male; | | | | [facility] [place] | | Hypothyroid; Adrenal | | | | [address]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 ([facility]) | | | | [phone] | | | +--------+---------+ + + + [...] is unchanged from previous visit. LABS BMP, SENIOR ERP CONSULTANT, IGF-1, TSH, Free T4, LH, FSH, Testosterone, [...] of which over 50% was spent in [facility] and coordination of care Component Reference [...] | | 2019 | Visit | | [address] | | | | | | [address] | | | | | | [place], [place] | | | | | | [address] | | | | | | [phone] | | | | | | | [...] RLB ([facility]) | | | [facility] [place] [address] | | | [place] [address] | | + + + + + + + + | Performing | Address | City/State/Zipcode | Phone Number | | Organization | | | | + + + + + | [facility] | [address] | [place] [address] | | | LABORATORY | | | [...] Performed At | + + + | [id number] Estimated GFR > 60 mL/min/1.73 sq m if non- | [facility] | | Prydeinig [id number] Estimated GFR > 60 mL/min/1.73 sq m if | DEPARTMENT OF | | Prydeinig GFR is estimated using the MDRD equation [...] + + + + | [facility] | [facility] | [place] [address] | | | PATHOLOGY | [address] | | | + + + + + | [facility] | [address] [place] [address] | [place] [address] | | | PATHOLOGY | [address] [...] Lab) [facility] | | | [place] [address] | | | [place] [address] | | + + + + + + + + | Performing | Address | City/State/Zipcode | Phone Number | | Organization | | | | + + + + + | [facility] | [address] | [place] [address] | | | LABORATORY | | | [...] RLB ([facility] [address] [facility]) | | | [facility] [place] [address] | | | [place] [address] | | + + + + + + + + | Performing | Address | City/State/Zipcode | Phone Number | | Organization | | | | + + + + + | [facility] | [address] | [place] [address] | | | LABORATORY | | | [...]
--- OUTSIDE RECORDS SUMMARY | ~2019-07-14 | XMS | Encounter Summary ---
Demographics + + + | Address | [address] | | | [place] [address] | + + + | Home Phone [...] + + + | Author | [place] [employer] [facility] | + + + | Organization | [facility] [...] Team Providers + +------+ + | Care Chain Saw Operator Name | Role | Phone [...] | | | | | | Building [place], | | | | | | [place] [address] | | | | | | [phone] | | | +--------+ + + + [...] reviewed with Dr. Yemi De La Rosa, cafeteria cashier, who decided that the patient was safe [...] [address] | | | | | | [place], [place] | | | | | | [address] | | | | | | [phone] | | | | | | | [...] | | ncy | | disease of [place] | | | | | | artery of [place] | | | | | | heart [...] SPECT | | | | | | [id number] | | | | | | perfusion [...] [facility] DEPT | [address] | [place], [place] | | | CARDIOLOGY | [address] | [address] | | + + + + + documented in this encounter Visit Diagnoses + + | Diagnosis | + + | Chest pain, unspecified type | + + | Coronary artery disease of [place] artery of [place] heart with stable angina pectoris | | [...]
--- OUTSIDE RECORDS SUMMARY | ~2019-07-14 | XMS | Encounter Summary ---
Demographics + + + | Address | [address] | | | [place] [address] | + + + | Home Phone | | + + + | Preferred Language | Unknown | + + + | Marital Status | Single | + + + | Jew Affiliation | Unknown | + + + | Race | Unknown | + + + | Ethnic Group | Unknown | + + + Author + + + | Author | [facility] | | | and [place] | + + + | Organization | [facility] | | | and [place] [...] Team Providers + +------+ + | Care Political Science Faculty Member Name | Role | Phone | [...] | Specialty | Otolaryngolog | Diagnoses | [place], | Moises, Mckay | | | Services | y | Nasal | BRETT Schneider | MD Joesf [address] | | | Required | | congestion | [address] | [address] | | | | | | St [place] | [address] | | | | | | [place], [place] | [place], | | | | | | [address] | [place] [address] | | | | | | Phone: | Phone: | | | | | | [phone] | [phone] | | | | | | Fax: | Fax: | | | | | | [phone] | [phone] | +--------+ + + + + + Reason for Visit + + + | Reason | Comments | + + + | CPAP Follow Up | | + + + Encounter Details +--------+---------+ + + + | Date | Type | Department | Care Team | Description | +--------+---------+ + + + | 02/17/ | Office | [facility] | Sumanth Champion PA | MALLIKA on CPAP (Primary | | 2016 | Visit | SLEEP DISORDER [address] | [address] | Dx); Nasal | | | | [address] [place] | [place], [place] | congestion | | | | [place] [address] | [address] | | | | | [phone] | | | +--------+---------+ + + + [...] Exam Assessment: Problem #1: OBSTRUCTIVE SLEEP APNEA ([id number]) This is well controlled with CPAP. He [...] months, sooner prn. Fifteen minutes were spent [id number], w ith the majority of time spent [...]
--- OUTSIDE RECORDS SUMMARY | ~2019-07-14 | XMS | Encounter Summary ---
Demographics + + + | Address | [address] | | | [place] [address] | + + + | Home Phone [...] + + + | Author | [place] [employer] [facility] | + + + | Organization | [facility] | [...] Team Providers + +------+ + | Care Major League Baseball Umpire Name | Role | Phone | + [...] 2018 | | [facility] | [address] | | | | | [place] at | [place] | | | | | [address] | [place], [place] | | | | | [address] | [address] | | | | | [place] | [phone] | | | | | [address] | | | | | | [phone] | | | +--------+ + + + [...] Rd | | | | | | [place], [place] | | | | | | [address] | | | | | | [phone] | | | | | | | | +--------+---------+ + + + documented as of this encounter Visit Diagnoses Not on filedocumented in this encounter"
--- OUTSIDE RECORDS SUMMARY | ~2019-07-14 | XMS | Clinical Summary ---
Demographics + + + | Address | [address] | | | [place] [address] | + + + | Home Phone [...] Providers + +------+ + | Care Senior Environmental Engineer Name | Role | Phone | + +------+ + | Priscilla Ramírez PA-C | PCP | | + +------+ + Source Comments MIRTHA is fully live on both [facility] and [facility] Allergies + + + + + + [...] Isosorbide | Headache, Nausea | High | 08//20 | | | | | | 18 | | + + + + + + Medications + + + +---------+------+------+-------+ | Medication | Sig | Dispensed | Refills | Star | End | Statu | | | | | | t | Date | s | | | | | | Date | | | + + + +---------+------+------+-------+ | promethazine 25 mg | Take 1 tablet by | 20 | 1 | 10/2 | | Activ | | oral tablet | mouth four times | tablet | | 4/20 | | e | | | daily as needed for | | | 14 | | | | | nausea/vomiting. | | | | | | + + + +---------+------+------+-------+ | hydrocortisone | Inject 1ml for | [...] | | | | + + + +---------+------+------+-------+ | levothyroxine 125 | Take 1 tablet by | 90 | 1 | 04/1 | | Activ | | mcg oral tablet | mouth before | tablet | | 0/20 | | e | | | breakfast. | | | 15 | | | + + + +---------+------+------+-------+ | | Take 1 tablet by | [...] | | | | + + + +---------+------+------+-------+ | metFORMIN 500 mg | 2 tabs at breakfast | 90 | 5 | 11/1 | | Activ | | oral tablet | and one tab at | tablet | | 3/20 | | e | | | dinner dialy | | | 15 | | | + + + +---------+------+------+-------+ | DEPO-TESTOSTERONE | Inject 200 mg under | | 0 | 10/0 | | Activ | | 200 mg/mL | the skin (SUBC) | | | 5/20 | | e | | intramuscular oil | every fourteen days. | | | 16 | | | + + + +---------+------+------+-------+ | cholecalciferol, | Take 6,000 Units by | | 0 | | | Activ | | vitamin D3, 4,000 | mouth once daily. | | | | | e | | unit oral tablet | | | | | | | + + + +---------+------+------+-------+ | fenofibrate 145 mg | Take 145 mg by mouth | | 1 | 08/1 | | Activ | | oral tablet | once daily. | | | 0/20 | | e | | | | | | 17 | | | + + + +---------+------+------+-------+ | nitroglycerin 0.2 | Apply 1 patch to | | 0 | | | Activ | | mg/hr [...] | | | | + + + +---------+------+------+-------+ | sertraline HCl | pt reports taking 75 | | 0 | | | Activ | | (SERTRALINE ORAL) | daily | | | | | e | + + + +---------+------+------+-------+ | amLODIPine 10 mg | Take 1 tablet by | 90 | 3 | 11/2 | | Activ | | oral tablet | mouth once daily. | tablet | | / | | e | | | | | | 18 | | | + + + +---------+------+------+-------+ | aspirin chewable | Chew and swallow 1 | 90 | 3 | 11/2 | | Activ | | 81 mg oral | tablet once daily. | tablet | | 9/20 | | e | | tablet,chewable | | | | 18 | | | + + + +---------+------+------+-------+ | atorvastatin 80 mg | Take 1 tablet by | 90 | 3 | 11/2 | | Activ | | oral tablet | mouth once daily in | tablet | | 9/20 | | e | | | the evening. | | | 18 | | | + + + +---------+------+------+-------+ | clopidogrel | Take 1 tablet by | 90 | 3 | 11/2 | | Activ | | (PLAVIX) 75 mg oral | mouth once daily in | tablet | | 9/20 | | e | | tablet | the morning. | | | 18 | | | + + + +---------+------+------+-------+ | lisinopril 40 mg | Take 1 tablet by | 90 | 3 | 11/2 | | Activ | | oral tablet | mouth once daily. | tablet | | /20 | | e | | | | | | 18 | | | + + + +---------+------+------+-------+ | metoprolol | Take 1 tablet by | 180 | 3 | 11/2 | | Activ | | tartrate 100 mg oral | mouth two times | tablet | | 9/20 | | e | | tablet | daily. | | | 18 | | | + + + +---------+------+------+-------+ | Somatropin 10 mg/2 | Inject 0.8 mg under | 6 mL | 5 | 03/1 | | Activ | | mL (5 mg/mL) | the skin (SUBC) once | | | /20 | | e | | subcutaneous | daily. | | | 19 | | | | cartridge | | | | | | | + + + +---------+------+------+-------+ | desmopressin | Take 1 1/2 tablets | 315 | 1 | 06/2 | | Activ | | (DDAVP) 0.2 mg oral | in the morning and 2 | tablet | | 08/29 | | e | | tabletIndications: | tablets in the | | | 19 | | | | Panhypopituitarism | evening. | | | | | | | (HCC) | | | | | | | + + + +---------+------+------+-------+ | L-Methylfolate | Take 7.5 mg by mouth | | 0 | | | Activ | | (L-METHYLFOLATE) 7.5 | once daily. | | | | | e | | mg oral tablet | | | | | | | + + + +---------+------+------+-------+ | pseudoephedrine 60 | Take 60 mg by mouth | | 0 | | | Activ | | mg oral tablet | as needed. | | | | | e | + + + +---------+------+------+-------+ | cyclobenzaprine 10 | Take 10 mg by mouth | | 0 | | | Activ | | mg oral tablet | as needed. | | | | | e | + + + +---------+------+------+-------+ | hydrocortisone 20 | Take 1 tablet by | 90 | 3 | 10/0 | | Activ | | mg oral | mouth once daily. | tablet | | 8/20 | | e | | tabletIndications: | | | | 19 | | | | Pituitary adenoma | | | | | | | | ([facility]), | | | | | | | | Panhypopituitarism | | | | | | | | (HCC) | | | | | | | + + + +---------+------+------+-------+ | hydrocortisone 5 | Take 1 tablet by | 90 | 3 | 10/0 | | Activ | | mg oral | mouth once daily. | tablet | | 8/20 | | e | | tabletIndications: | | | | 19 | | | | Pituitary adenoma | | | | | | | | (HCC), Adrenal | | | | | | | | insufficiency ([facility]) | | | | | | | + + + +---------+------+------+-------+ | nitroglycerin 0.4 | Place 1 tablet under | 25 | 2 | 10/2 | | Activ | | mg sublingual | tongue every five | tablet | | 4/20 | | e | | tablet, sublingual | minutes as needed | | | 19 | | | | | for chest [...] | | | | + + + +---------+------+------+-------+ | ranolazine 1,000 | Take 1 tablet by | 90 | 0 | 12/0 | | Activ | | mg oral tablet | mouth every twelve | tablet | | 3/20 | | e | | extended release 12 | hours. 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 Last C 04/2017 | | in the setting of NSTEMI demonstrated REINSURANCE ACCOUNTANT RCA with collateral | | flow from [...] | | control as per PCP and drone operator-- BP well controlled today | + + [...] | +--------+ + + + + | 11/21/ | MyChart | Neurological Surgery | Donnie, | RE:Follow up | | 2018 | Encounter | | Cathie, | appointment | | | | | DNP,SUPERVISOR FUNCTIONAL TESTING,[place] | | +--------+ + + + + | 06/29/ | Refill | Cardiology | Zuleika Hernandez, | Refill Request | 2018 | | | MD | (Ranolazine 1,000 mg | | | | | | BID); Refill | | | | | | Request; Refill | | | | | | Request; Appointment | +--------+ + + + + | 06/08/ | MyChart | Cardiology | | Please Schedule | | 2018 | Encounter | | | Appointment | +--------+ + + + + | 06/07/ | Telephone | Cardiology | Zuleika Hernandez, | Lab Results | 2018 | | | MD | (Multiple lab | | | | | | results) | +--------+ + + + + | 06/02/ | Telephone | Cardiology | Zuleika Hernandez, | Follow-up visit; | | 2018 | | | MD | Appointment | +--------+ + + + + | 06/01/ | MyChart | Cardiology | Zuleika Hernandez, | RE: Heart | | 2018 | Encounter | | MD | | +--------+ + + + + | 05/17/ | Refill | Neurological Surgery | Donnie, | Refill Request | | 2018 | | | Cathie, | | | | | | DNP,SUPERVISOR FUNCTIONAL TESTING,[place] | | +--------+ + + + + [...] Rate | 12 | 04/13/2018 1:00 PM | | | | | PDT | | + + + + + | Oxygen Saturation | 97% | 04/13/2018 1:00 PM | | | | | PDT [...] | 2020 | Visit | | [address] | | | | | | [address] | | | | | | [place], [place] | | | | | | [address] | | | | | | [phone] | | | | | | | | +--------+---------+ + + + + + + + + | Health Maintenance | Due Date | Last Done | Comments | + + + + + | Pneumococcal | | | | | vaccination (1 of 1 | 5 | | | | - PPSV23) | | | | + + + + + | Influenza (Flu) | | 2018 | | | vaccination (#1) | 9 | | | + + + + + Procedures + +--------+ + + + | [...] section. | + +--------+ + + + from Last 3 Months Results FOLATE, SERUM (05/26/2019) + +-------+ + + [...] | | | + +---------+ + + VITAMIN B-12 (05/26/2019) + +---------+ + + [...] | | | + +---------+ + + from Last 3 Months Insurance + +--------+ +--------+-------+---------+--------+ | Payer | Benefi | Subscriber | Effect | Phone | Address | Type | | | t Plan | ID | deanne | | | | | | / | | Dates | | | | | | Group | | | | | | + +--------+ +--------+-------+---------+--------+ | MANAGER TRACK MEDICAID | MANAGER TRACK | xxxxxxxx | | | | Medica | | | EASTER | | 018-[id number] | | | id | | | [place] | | esent | | | | + +--------+ +--------+-------+---------+--------+ | [employer] | LAO | [id number] | | | | Agency | | SERVICE | | | 979-[id number] | | | | | | HEALTH | | esent | | | | | | | | | | | | | | SERVIC | | | | | | | | E | | | | | | + +--------+ +--------+-------+---------+--------+ + +--------+ +--------+ + + | Guarantor Name | Accoun | Relation to | Date | Phone | Billing Address | | | t Type | Patient | of | | | | | | | | | | + +--------+ +--------+ + + | Amairani Tyler | Person | Self | [birth year] | [address] | | | al/Fam | | 1979 | [phone] | [place], [place] | | | luli | | | 4 (Home) | [address] | + +--------+ +--------+ + + | Amairani Tyler | Agency | Self | [birth year] | | [address] | | | | | 1979 | [phone] | [place], [place] | | | | | | 4 (Home) | [address] | + +--------+ +--------+ + + Advance Directives + + + + + | Type | Date Recorded | Patient | Explanation | | | | Ammunition Specialist | | + + + + + | Advance | | | | | Directives and | | | | | Living Will | | | | + + + + + | Power of | | | | | Seo Specialist | | | | + + + + + + + + + + | Code Status | Date | Date | Comments | | | Activated | Inactivated | | + + + + + | Full Code | 04/13/2018 | 04/13/2018 | | | | 7:02 AM | 7:25 PM | | + + + + + + + + +---+ | | | | | + + + +---+ | Full Code | 07/08/2016 | 07/08/2016 | | | | 6:13 AM | 7:19 PM | | + + + +---+
--- OUTSIDE RECORDS SUMMARY | ~2019-07-14 | XMS | Encounter Summary ---
Demographics + + + | Address | [address] | | | [place] [address] | + + + | Home Phone [...] + + + | Author | [place] [employer] [facility] | + + + | Organization | [facility] | + + + | Address | Unknown | + + + | Phone | Unavailable | + + + Support + + +---------+ + | Name | Relationship | Address | Phone | + + +---------+ + | Alexandria Dixon | ECON | Unknown | | + + +---------+ + Care Team Providers + +------+ + | Care Special Services Agent Name | Role | Phone | + +------+ + | No Pcp Per Patient | PCP | Unavailable | + +------+ + Encounter Details +--------+------+ + + + | Date | Type | Department | Care Team | Description | +--------+------+ + + + | 10/25/ | Lab | Laboratory at [facility] | | Pituitary adenoma | | 2010 | | [address] | | ([facility]); 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[place], [place]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 | | | | [address] | | ([facility]); Diabetes | | | | [phone] | | insipidus ([facility]); [...] | | 2019 | Visit | | [address] | | | | | | [address] | | | | | | [place], [place] | | | | | | [address] | | | | | | [phone] | | | | | | | [...] [facility] ([facility]) | | | [facility] [address] | | | [place] [address] | | + + + + + + + + | Performing | Address | City/State/Zipcode | Phone Number | | Organization | | | | + + + + + | [facility] | [address] | [place] [address] | | | LABORATORY | | | [...] | | | DEPARTMENT | | | MACANESE | | | OF | | | [...] | + + + + + | [facility] | [address] | [place] [address] | | | PATHOLOGY | [address] [...] [place] | [place] | [place] [address] | REGIONAL | | [place] [address] | LABORATORY | + + + + + + + + | Performing | Address | City/State/Zipcode | Phone Number | | Organization | | | | + + + + + | [facility] | [address] | [place] [address] | | | LABORATORY | | | [...] + + + | [facility] ([address] [facility]) [place] | [place] | | [place] [address] | REGIONAL | | [place] [address] | LABORATORY | + + + + + + + + | Performing | Address | City/State/Zipcode | Phone Number | | Organization | | | | + + + + + | [facility] | [address] | [place] [address] | | | LABORATORY | | | [...] At | + + + | [facility] ([address] [facility]) [place] | [place] | | [place] [address] [place] [facility] | [facility] | | [place] [address] | LABORATORY | + + + + + + + + | Performing | Address | City/State/Zipcode | Phone Number | | Organization | | | | + + + + + | [facility] | [address] | [place] [address] | | | LABORATORY | | | [...] + + + | [facility] ([address] [facility]) [place] | [place] | | [place] [address] | REGIONAL | | [place] [address] | LABORATORY | + + + + + + + + | Performing | Address | City/State/Zipcode | Phone Number | | Organization | | | | + + + + + | [facility] | [address] | [place] [address] | | | LABORATORY | | | [...] At | + + + | [facility] ([facility]) | [place] | | [place] [facility] [place] [address] [address] | REGIONAL | | [place] [address] | LABORATORY | + + + + + + + + | Performing | Address | City/State/Zipcode | Phone Number | | Organization | | | | + + + + + | [facility] | [address] | [place] [address] | | | LABORATORY | | | [...]
--- OUTSIDE RECORDS SUMMARY | ~2019-07-14 | XMS | Encounter Summary ---
Demographics + + + | Address | [address] | | | [place] [address] | + + + | Home Phone [...] + + | Author | [place] [employer] [facility] | + + + | Organization | [facility] [...] Team Providers + +------+ + | Care Veterans Adviser Name | Role | Phone | + [...] | | | | | adenoma | DNP,FRONT LOAD TRASH TRUCK DRIVER,[place] | [address] | | | | | (HCC) | [address] | | | | | Procedures | Ave | Mailcode: | | | | | [address] | [place], [place] | [address] | | | | | [address] | [address] | [place] | | | | | CONTRAST | Phone: | Research | | | | | | [phone] | [place] | | | | | | Fax: | [place], [place] | | | | | | [phone] | [address] | | | | | | | Phone: | | | | | | | [phone] | | | | | | | Fax: | | | | | | | [phone] | +--------+--------+ + + + + Reason [...] | | | | | adenoma | DNP,FRONT LOAD TRASH TRUCK DRIVER,[place] | [address] | | | | | ([facility]) | [address] | | | | | Procedures | Ave | Mailcode: | | | | | [address] | [place], [place] | [address] | | | | | [address] | [address] | [place] | | | | | CONTRAST | Phone: | Research | | | | | | [phone] | [place] | | | | | | Fax: | [place], [place] | | | | | | [phone] | [address] | | | | | | | Phone: | | | | | | | [phone] | | | | | | | Fax: | | | | | | | [phone] | +--------+--------+ + + + + Encounter Details +--------+ + + + + | Date | Type | Department | Care Team | Description | +--------+ + + + + | 01/04/ | Hospital | Radiology/Imaging | | | | 2012 | Encounter | Lab at [facility] [address] | | | | | | [address] Mailcode: | | | | | | [facility] [place] [facility] | | | | | | [facility] and Healing, | | | | | | Building [address], [facility] | | | | | | Floor [facility] [place] | | | | | | [address] | | | | | | [phone] | | | +--------+ + + + [...] | | 2020 | Visit | | [address] | | | | | | [address] | | | | | | [place], [place] | | | | | | [address] | | | | | | [phone] | | | | | | | [...] | | + +---------+ + + | [facility] DEPARTMENT OF | | | | | [...] | [facility] | [address] | [place] [address] | | | OF CARE TESTS | | | | + + + + + documented in this encounter Visit Diagnoses + + | Diagnosis | + + | Pituitary adenoma (HCC) Benign neoplasm of pituitary gland and craniopharyngeal duct | | (pouch) | + + documented in this encounter"
--- OUTSIDE RECORDS SUMMARY | ~2019-07-14 | XMS | Encounter Summary ---
Demographics + + + | Address | [address] | | | [place] [address] | + + + | Home Phone [...] + + + | Author | [place] [employer] [facility] | + + + | Organization | [facility] [...] Providers + +------+ + | Care Stock Room Manager Name | Role | Phone | + +------+ + | No Pcp Per Patient | PCP | Unavailable | + +------+ + Encounter Details +--------+ + + + + | Date | Type | Department | Care Team | Description | +--------+ + + + + | 07/24/ | MyChart | Neurosurgery at | Donnie, | RE: Diet pills | | 2010 | Encounter | [facility] [address] | Cathie | | | | | [place] Mailcode: CH8N | DNP,MOUNTER BRASS WIND INSTRUMENTS,[place] [address] | | | | | [facility] | [address] [place], | | | | | and Healing, | [place] [address] | | | | | [facility] [address] | [phone] | | | | | [place], [place] | | | | | | [address] | | | | | | [phone] | | | +--------+ + + + [...] [place] | | | | | | [address] | | | | | | [phone] | | | | | | | | +--------+---------+ + + + documented as of this encounter Visit Diagnoses Not on filedocumented in this encounter"
--- OUTSIDE RECORDS SUMMARY | ~2019-07-14 | XMS | Encounter Summary ---
Demographics + + + | Address | [address] | | | [place] [address] | + + + | Home Phone [...] + + + | Author | [place] [employer] [facility] | + + + | Organization | [facility] | [...] Team Providers + +------+ + | Care Tire And Lube Technician Name | Role | Phone | [...] Refill Request | | 2012 | | [facility] [address] | Cathie, | | | | | [place] Mailcode: CH8N | DNP,METAL WIRE COATING OPERATOR,[place] [address] | | | | | [facility] | [address] [place], | | | | | and Healing, | [place] [address] | | | | | Building [address] | [phone] | | | | | [place], [place] | | | | | | [address] | | | | | | [phone] | | | +--------+ + + + [...] [place] | | | | | | [address] | | | | | | [phone] | | | | | | | | +--------+---------+ + + + documented as of this encounter Visit Diagnoses Not on filedocumented in this encounter"
--- OUTSIDE RECORDS SUMMARY | ~2019-07-14 | XMS | Encounter Summary ---
Demographics + + + | Address | [address] | | | [place] [address] | + + + | Home Phone [...] + + + | Author | [place] [facility] | + + + | Organization | [facility] | + + + | Address | Unknown | + + + | Phone | Unavailable | + + + Support + + +---------+ + | Name | Relationship | Address | Phone | + + +---------+ + | Alexandria Dixon | ECON | Unknown | | + + +---------+ + Care Team Providers + +------+ + | Care Ultrasound Tech Name | Role | Phone | [...] | | | | | adenoma | DNP,TEACHERS AIDE,[place] | Kit Tanner | | | | | (HCC) | [address] | | | | | Procedures | Ave | Mailcode: | | | | | MRI | [place], [place] | [address] | | | | | PITUITARY | [address] | [place] | | | | | WWO CONTRAST | Phone: | Research | | | | | [place] MRI | [phone] | [place] | | | | | BRAIN COMBO | Fax: | [place], [place] | | | | | | [phone] | [address] | | | | | | | Phone: | | | | | | | [phone] | | | | | | | Fax: | | | | | | | [phone] | +--------+--------+ + + + + Reason [...] | | | | | adenoma | DNP,TEACHERS AIDE,[place] | Kit Tanner | | | | | ([facility]) | [address] | | | | | Procedures | Ave | Mailcode: | | | | | MRI | [place], [place] | [address] | | | | | PITUITARY | [address] | [place] | | | | | WWO CONTRAST | Phone: | Research | | | | | [place] MRI | [phone] | Center | | | | | BRAIN COMBO | Fax: | [facility] [place] | | | | | | [phone] | [address] | | | | | | | Phone: | | | | | | | [phone] | | | | | | | Fax: | | | | | | | [phone] | +--------+--------+ + + + + Encounter Details +--------+ + + + + | Date | Type | Department | Care Team | Description | +--------+ + + + + | 07/13/ | Hospital | Radiology/Imaging | | | | 2014 | Encounter | Lab at [facility] [address] | | | | | [address] [place] Mailcode: | | | | | | CH[facility] | | | | | | Health and Healing, | | | | | | Building 1, 3rd | | | | | | Floor [facility] [place] | | | | | | [address] | | | | | | [phone] | | | +--------+ + + + [...] Rd | | | | | | [place], [place] | | | | | | [address] | | | | | | [phone] | | | | | | | [...] | + +---------+ + + | [facility] DEPARTMENT OF | | | | | RADIOLOGY | | | | + +---------+ + + documented in this encounter Visit Diagnoses + + | Diagnosis | + + | Pituitary adenoma (HCC) Benign neoplasm of pituitary gland and craniopharyngeal duct | | (pouch) | + + documented in this encounter"
--- OUTSIDE RECORDS SUMMARY | ~2019-07-14 | XMS | Encounter Summary ---
Demographics + + + | Address | [address] | | | [place] [address] | + + + | Home Phone [...] + + + | Author | [place] [facility] | + + + | Organization | [facility] [...] Team Providers + +------+ + | Care Thoroughbred Horse Farm Manager Name | Role | Phone | + +------+ + | No Pcp Per Patient | PCP | Unavailable | + +------+ + Encounter Details +--------+ + + + + | Date | Type | Department | Care Team | Description | +--------+ + + + + | 10/01/ | Office | [facility] | Clinic, | Progress Note | | 2006 | Visit-Trans | SURGERY | Neurosurgery | | | | cribed | | [...] as of this encounter Progress Notes Interface, Eyelet Operator In - 12/17/2005 2:06 AM PDT [id number] TOREY TRIVEDI V Clinic Date: 10/01/2005 Clinic: Neurosurgery Subjective: Mr. Tyler presents to the Neurosurgery Clinic for routine followup exam. He is status post transsphenoidal resection of pituitary macroadenoma. This procedure was performed on September 16, 2005, by Dr. Reuben Styles. Since being discharged from the hospital, Mr. Tyler states that he has been doing quite well. He has had no problems with headaches or dizziness. He denies any leaking from his nose or down the back of his throat. Activitywise, he is already getting back into his normal daily routine. He is still being followed by Dr. Guillaume for any endocrine issues and continues to take his hydrocortisone 20 mg daily. He has no other complaints today. Objective: General: He is a well-developed and well-nourished male in no acute distress. He is alert, appropriate, and sitting comfortably in his chair. I did not visually see any CSF coming from his nose. Neurologic: Cranial nerves 2 through 12 were intact without any focal deficits. He had no pronator drift and no dysmetria. His gait was normal. Assessment: Status post transsphenoidal resection of pituitary tumor, progressing well. Plan: 1. I discussed with Mr. Tyler my findings and recommendations. 2. He will continue with his current course of therapy and gradually increase his activity level as he tolerates it. I did advise him that he can now blow his nose gently and start drinking out of a straw without any difficulty. 3. He will follow up with Dr. Styles and Dr. Guillaume in approximately 4 weeks. His appointment has already been prearranged by Dr. Guillaume. 4. Mr. Tyler was in agreement with the above plan and will follow up as instructed. Jaylin Hou P.A.-C. / GABY [id number] / [id number] / [id number] / [id number] Electronically signed by Jaylin Hou 12-16-2005 12:32:00 PM documented i n this encounter Plan [...] Rd | | | | | | [place], [place] | | | | | | [address] | | | | | | [phone] | | | | | | | | +--------+---------+ + + + documented as of this encounter Visit Diagnoses Not on filedocumented in this encounter"
--- OUTSIDE RECORDS SUMMARY | ~2019-07-14 | XMS | Encounter Summary ---
Demographics + + + | Address | [address] | | | [place] [address] | + + + | Home Phone [...] + + | Author | [place] [facility] | + + + | Organization | [facility] | [...] Team Providers + +------+ + | Care Engineer Chief Name | Role | Phone | + +------+ + | No Pcp Per Patient | PCP | Unavailable | + +------+ + Encounter Details +--------+------+ + + + | Date | Type | Department | Care Team | Description | +--------+------+ + + + | 08/15/ | Lab | Laboratory at [facility] | | Pituitary adenoma | | 2011 | | [address] | | ([facility]); 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[place], [place]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 | | | | [address] | | ([facility]); Diabetes | | | | [phone] | | insipidus ([facility]); | [...] | | 2019 | Visit | | [address] | | | | | | [address] | | | | | | [place], [place] | | | | | | [address] | | | | | | [phone] | | | | | | | | +--------+---------+ + + + documented as of this encounter Procedures + +--------+ + + + | Procedure Name | Priori | Date/Time | Associated Diagnosis | Comments | | | ty | | | | + +--------+ + + + | VITAMIN D, | Routin | 08/15/2011 | Pituitary adenoma | Results for this | | 25-HYDROXY, SERUM | e | 3:10 PM | (HCC) Growth | procedure are [...] | BASIC METABOLIC SET | Routin | 08/15/2011 | Pituitary adenoma | Results for this | | (NA, K, CL, TCO2, | e | 3:10 PM | (HCC) Growth | procedure are [...] + | INSULIN GROWTH | Routin | 08/15/2011 | Pituitary adenoma | Results for this | | FACTOR-1, SERUM | e | 3:10 PM | (HCC) Growth | procedure are [...] + | FREE T4 | Routin | 08/15/2011 | Pituitary adenoma | Results for this | | | e | 3:10 PM | (HCC) Growth | procedure are [...] + + | PROLACTIN | Routin | 08/15/2011 | Pituitary adenoma | Results for this | | | e | 3:10 PM | (HCC) Growth | procedure are [...] + + | TSH | Routin | 08/15/2011 | Pituitary adenoma | Results for this | | | e | 3:10 PM | (HCC) Growth | procedure are [...] + | TESTOSTERONE, SERUM | Routin | 08/15/2011 | Pituitary adenoma | Results for this | | | e | 3:10 PM | (HCC) Growth | procedure are [...] | + + + + + | [facility] DEPARTMENT OF | [address] | [place] [address] | | | PATHOLOGY | [address] [...] | [place] | | [facility] [place] [address] | REGIONAL | | [place] [address] | LABORATORY | + + + + + + + + | Performing | Address | City/State/Zipcode | Phone Number | | Organization | | | | + + + + + | [facility] | [address] | [place] [address] | | | LABORATORY | | | [...] [place] | [place] | | [place] [address] | REGIONAL | | [place] [address] | LABORATORY | + + + + + + + + | Performing | Address | City/State/Zipcode | Phone Number | | Organization | | | | + + + + + | [facility] | [address] | [place] [address] | | | LABORATORY | | | [...] + + + | [facility] [place] | [place] | | [place] [address] [address] | REGIONAL | | [place] [address] | LABORATORY | + + + + + + + + | Performing | Address | City/State/Zipcode | Phone Number | | Organization | | | | + + + + + | [facility] | [address] | [place] [address] | | | LABORATORY | | | [...] [place] | [place] | | [place] [address] | REGIONAL | | [place] [address] | LABORATORY | + + + + + + + + | Performing | Address | City/State/Zipcode | Phone Number | | Organization | | | | + + + + + | [facility] | [address] | [place] [address] | | | LABORATORY | | | [...] At | + + + | [facility] [place] | [place] | | [place] [address] | REGIONAL | | [place] [address] | LABORATORY | + + + + + + + + | Performing | Address | City/State/Zipcode | Phone Number | | Organization | | | | + + + + + | [facility] | [address] | [place] [address] | | | LABORATORY | | | [...] | | | DEPARTMENT | | | [place] | | | OF | | | [...] + + + | [facility] | [address] | [place] [address] | | | PATHOLOGY | [address] [...]
--- OUTSIDE RECORDS SUMMARY | ~2019-07-14 | XMS | Encounter Summary ---
Demographics + + + | Address | [address] | | | [place] [address] | + + + | Home Phone [...] + + | Author | [place] [facility] | + + + | Organization | [facility] [...] Team Providers + +------+ + | Care Product Development Manager Name | Role | Phone | + +------+ + | No Pcp Per Patient | PCP | Unavailable | + +------+ + Encounter Details +--------+ + + + + | Date | Type | Department | Care Team | Description | +--------+ + + + + | 08/31/ | MyChart | Neurosurgery at | Donnie, | RE: Appointment | | 2008 | Encounter | [facility] [address] | Cathie | | | | | [place] Mailcode: CH8N | DNP,ENERGY PROJECT ENGINEER,[place] [address] | | | | | [facility] | [address] [place], | | | | | and Healing, | [place] [address] | | | | | [facility] 1 | [phone] | | | | | [place], [place] | | | | | | [address] | | | | | | [phone] | | | +--------+ + + + [...] | | | | | | [place], [place] | | | | | | [address] | | | | | | [phone] | | | | | | | | +--------+---------+ + + + documented as of this encounter Visit Diagnoses Not on filedocumented in this encounter"
--- OUTSIDE RECORDS SUMMARY | ~2019-07-14 | XMS | Encounter Summary ---
Demographics + + + | Address | [address] | | | [place] [address] | + + + | Home Phone [...] + + + | Author | [place] [facility] | + + + | Organization | [facility] | + + + | Address | Unknown | + + + | Phone | Unavailable | + + + Support + + +---------+ + | Name | Relationship | Address | Phone | + + +---------+ + | Alexandria Dixon | ECON | Unknown | | + + +---------+ + Care Team Providers + +------+ + | Care Conditioning Yard Supervisor Name | Role | Phone | [...] + + + + | 03/06/ | Telephone | Neurosurgery at | Jaclyn Crawford, | Refill Request | | 2014 | | [facility] [address] | [address] | | | | | [place] Mailcode: CH8N | [facility] | | | | | [facility] | [place], [place] | | | | | and [place], | [address] | | | | | [place] [address] | [phone] | | | | | [place], [place] | | | | | | [address] | | | | | | [phone] | | | +--------+ + + + [...] Rd | | | | | | [place], [place] | | | | | | [address] | | | | | | [phone] | | | | | | | | +--------+---------+ + + + documented as of this encounter Visit Diagnoses Not on filedocumented in this encounter"
--- OUTSIDE RECORDS SUMMARY | ~2019-07-14 | XMS | Encounter Summary ---
Demographics + + + | Address | [address] | | | [place] [address] | + + + | Home Phone [...] + + + | Author | [place] [facility] | + + + | Organization | [facility] [...] Team Providers + +------+ + | Care Capacity Manager Name | Role | Phone | [...] [place] | | 2009 | Encounter | [facility] [address] | | | | | [place] Mailcode: CH8N | DNP,HYDRAULIC MINER,[place] [address] | | | | | [facility] | [address] [place], | | | | | and Healing, | [place] [address] | | | | | Building 1 | [phone] | | | | | [place], [place] | | | | | | [address] | | | | | | [phone] | | | +--------+ + + + [...] Rd | | | | | | [place], [place] | | | | | | [address] | | | | | | [phone] | | | | | | | | +--------+---------+ + + + documented as of this encounter Visit Diagnoses Not on filedocumented in this encounter"
--- OUTSIDE RECORDS SUMMARY | ~2019-07-14 | XMS | Encounter Summary ---
Demographics + + + | Address | [address] | | | [place] [address] | + + + | Home Phone [...] + + | Author | [place] [facility] | + + + | Organization | [facility] | + [...] Providers + +------+ + | Care Horse Racetrack Manager Name | Role | Phone | + +------+ + | Jinny Bergeron MD | PCP | | + +------+ + Encounter Details +--------+ + + + + | Date | Type | Department | Care Team | Description | +--------+ + + + + | 06/22/ | Spreader | Neurosurgery at | Donnie, | Pituitary adenoma | | 2014 | | [facility] [address] | Cathie | ([facility]) (Primary Dx); | | | | [place] Mailcode: CH8N | DNP,STADIUM MANAGER,[place] [address] | 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
--- OUTSIDE RECORDS SUMMARY | ~2019-07-14 | XMS | Encounter Summary ---
Demographics + + + | Address | [address] | | | [place] [address] | + + + | Home Phone [...] | [facility] | | | and [place] | + + + | Organization | [facility] | | | and [place] [...] Providers + +------+ + | Care Wet Process Assistant Head Miller Name | Role | Phone | + +------+ + | Jinny Bergeron MD | PCP | | + +------+ + Encounter Details +--------+ + + + + | Date | Type | Department | Care Team | Description | +--------+ + + + + | 11/23/ | Hospital | [facility] | Conversion | Coronary artery | | 2016 | Encounter | [facility]ICAL [facility]ENTER | Transaction, | disease involving | | | | CLINICAL DECISION | Provider Unknown | redding coronary | | | | [address] | [phone] | artery of redding | | | | [place], [place] | | heart with other | | | | [address] | Jose Shelton Mitch | form of angina | | | | [phone] | MD [address] | pectoris ([facility]); | | | | | [place] | Coronary artery | | | | | [place] [address] | disease involving | | | | | [phone] | redding coronary | | | | | | artery of redding | | | | | | heart [...] Lety Smith RN Service: (none) Author Type: Drapery Hanger Filed: 07/02/161740 Date of Service: 07/02/161726 Status: Signed Painter Railroad Car: Lety Smith RN (Registered Nurse) AVS and [...] and concerns tinsley ve been addressed. KAILA ROBELS docume nted in this encounter Plan of [...] THOMAS | | | | | | [id number] | | | | | | | [...] | | | | | performed at [facility];[address] | | | | | | [address] [facility];[place], [place] | | | | | | [address] | | | | + + + [...] EXTERNAL | | | | performed at [facility];[address] | K/uL | LAB | | | | [address];[place], [place] | | | | | | [address] | | | | + + + + + + | RED CELL | 6.23 (H)Comment: Testing | 4.20 - 5.70 | EXTERNAL | | | COUNT | performed at [facility];888 | M/uL | LAB | | | | [address];[place] | | | | | | [address] | | | | + + + + + + | Hgb | 18.8 (H)Comment: Testing | 13.2 - 17.0 | EXTERNAL | | | | performed at [facility];888 | g/dL | LAB | | | | [address];[place] | | | | | | [address] | | | | + + + + + + | Hematocrit, | 53.3 (H)Comment: Testing | 39.0 - 50.0 % | EXTERNAL | | | POC | performed at [facility];[address] | | LAB | | | | [address];[place] | | | | | | [address] | | | | + + + + + + | MCV | 85.6Comment: Testing | 80.0 - 100.0 fl | EXTERNAL | | | | performed at [facility];888 | | LAB | | | | [address];[place] | | | | | | [address] | | | | + + + + + + | MCH | 30.1Comment: Testing | 27.0 - 34.0 pg | EXTERNAL | | | | performed at [facility];888 | | LAB | | | | [address];[place] | | | | | | [address] | | | | + + + + + + | MCHC | 35.2Comment: Testing | 32.0 - 35.5 | EXTERNAL | | | | performed at [facility];888 | g/dL | LAB | | | | [address];[place] | | | | | | [address] | | | | + + + + + + | RDW-CV | 42.0Comment: Testing | 37 - 53 fl | EXTERNAL | | | | performed at [facility];[address] | | LAB | | | | [address];[place] | | | | | | [address] | | | | + + + + + + | Platelet | 301Comment: Testing | 150 - 400 K/uL | EXTERNAL | | | Count | performed at [facility];888 | | LAB | | | Plasma | [address];[place] | | | | | | [address] | | | | + + + + + + | MPV | 7.6Comment: Testing | fl | EXTERNAL | | | | performed at [facility];[address] | | LAB | | | | [address];[place] | | | | | | [address] | | | | + + + + + + | Differentia | AUTOMATEDComment: | | EXTERNAL | | | l Type | Testing performed at | | LAB | | | | [facility];[address] | | [address];[place] [address] | | | | + + + + + + | % Segmented | 67.97Comment: Testing | % | EXTERNAL | | | | performed at [facility];888 | | LAB | | | Neutrophils | [address];[place] | | | | | | [address] | | | | + + + + + + | % | 21.40Comment: Testing | % | EXTERNAL | | | Lymphocytes | performed at [facility];[address] | | LAB | | | | [address];[place] | | | | | | [address] | | | | + + + + + + | % Monocytes | 8.30Comment: Testing | % | EXTERNAL | | | | performed at [facility];[address] | | LAB | | | | [address];[place] | | | | | | [address] | | | | + + + + + + | % | 1.53Comment: Testing | % | EXTERNAL | | | Eosinophils | performed at [facility];[address] | | LAB | | | | [address];[place] | | | | | | [address] | | | | + + + + + + | % Basophils | 0.80Comment: Testing | % | EXTERNAL | | | | performed at [facility];[address] | | LAB | | | | [address];[place] | | | | | | [address] | | | | + + + + + + | Absolute | 7.23Comment: Testing | 1.90 - 7.40 | EXTERNAL | | | Segmented | performed at [facility];888 | K/uL | LAB | | | Neutrophils | [address];[place] | | | | | | [address] | | | | + + + + + + | Absolute | 2.28Comment: Testing | 1.00 - 3.90 | EXTERNAL | | | Lymphocytes | performed at [facility];[address] | K/uL | LAB | | | | [address];[place] | | | | | | [address] | | | | + + + + + + | Absolute | 0.88 (H)Comment: Testing | 0.00 - 0.80 | EXTERNAL | | | Monocytes | performed at [facility];[address] | K/uL | LAB | | | | [address];[place] | | | | | | [address] | | | | + + + + + + | Absolute | 0.16Comment: Testing | 0.00 - 0.50 | EXTERNAL | | | Eosinophils | performed at [facility];888 | K/uL | LAB | | | | [address];[place] | | | | | | [address] | | | | + + + + + + | Absolute | 0.09Comment: Testing | 0.00 - 0.10 | EXTERNAL | | | Basophils | performed at [facility];888 | K/uL | LAB | | | | [address];[place] | | | | | | [address] | | | | + + + [...] EXTERNAL | | | | performed at [facility];888 | mmol/L | LAB | | | | [address];[place] | | | | | | [address] | | | | + + + + + + | K | 3.8Comment: Testing | 3.5 - 4.9 | EXTERNAL | | | | performed at [facility];888 | mmol/L | LAB | | | | [address];[place] | | | | | | [address] | | | | + + + + + + | Cl | 104Comment: Testing | 99 - 109 mmol/L | EXTERNAL | | | | performed at [facility];[address] | | LAB | | | | [address];[place] | | | | | | [address] | | | | + + + + + + | CO2 | 27Comment: Testing | 23 - 32 mmol/L | EXTERNAL | | | | performed at [facility];[address] | | LAB | | | | [address];[place] | | | | | | [address] | | | | + + + + + + | Anion Gap | 12Comment: Testing | 5 - 20 mmol/L | EXTERNAL | | | | performed at [facility];[address] | | LAB | | | | [address];[place] | | | | | | [address] | | | | + + + + + + | Glucose, | 113 (H)Comment: Testing | 65 - 99 mg/dL | EXTERNAL | | | Fasting | performed at [facility];888 | | LAB | | | | [address];[place] | | | | | | [address] | | | | + + + + + + | BUN | 10Comment: Testing | 8 - 25 mg/dL | EXTERNAL | | | | performed at [facility];888 | | LAB | | | | [address];[place] | | | | | | [address] | | | | + + + + + + | Creatinine | 0.95Comment: Testing | 0.70 - 1.30 | EXTERNAL | | | | performed at [facility];888 | mg/dL | LAB | | | | [address];[place] | | | | | | [address] | | | | + + + + + + | BUN/Creatin | 10Comment: Testing | | EXTERNAL | | | ine Ratio | performed at [facility];888 | | LAB | | | | [address];[place] | | | | | | [address] | | | | + + + + + + | Calcium | 8.3 (L)Comment: Testing | 8.5 - 10.5 | EXTERNAL | | | | performed at [facility];888 | mg/dL | LAB | | | | [address];[place] | | | | | | [address] | | | | + + + [...] | | | | | | at [facility];[address] | | [address];[place] [address] | | | | + + + [...] + + | 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
--- OUTSIDE RECORDS SUMMARY | ~2019-07-14 | XMS | Encounter Summary ---
Demographics + + + | Address | [address] | | | [place] [address] | + + + | Home Phone [...] + + | Author | [place] [employer] [facility] | + + + | Organization | [facility] | [...] Team Providers + +------+ + | Care Idea Worker Name | Role | Phone | [...] [address] | | | | | [facility] | [place], [place] | | | | | and [place], | [address] | | | | | Building | [phone] | | | | | [place], [place] | | | | | | [address] | | | | | | [phone] | | | +--------+--------+ + + + [...] | | 2019 | Visit | | [address] | | | | | | [address] | | | | | | [place], [place] | | | | | | [address] | | | | | | [phone] | | | | | | | | +--------+---------+ + + + documented as of this encounter Visit Diagnoses Not on filedocumented in this encounter"
--- OUTSIDE RECORDS SUMMARY | ~2019-07-14 | XMS | Encounter Summary ---
Demographics + + + | Address | [address] | | | [place] [address] | + + + | Home Phone [...] + + + | Author | [place] [employer] [facility] | + + + | Organization | [facility] [...] Team Providers + +------+ + | Care Bedspread Cutter Hand Name | Role | Phone | + +------+ + PCP | Unavailable | + +------+ + Encounter Details +--------+ + + + + | Date | Type | Department | Care Team | Description | +--------+ + + + + | 09/15/ | Results | Endocrinology | Lb Guillaume, | | | 2005 | Only | Pituitary Disease | MD Shaina Lyman | | | | | Clinic [address] | [place], [place] | | | | | [address] | [address] | | | | | Mailcode: [id number] | | | | | | [facility]ly [facility] | | | | | | [address] | | | | | | [place], [place] | | | | | | [address] | | | | | | [phone] | | | +--------+ + + + [...] Rd | | | | | | [place], [place] | | | | | | [address] | | | | | | [phone] | | | | | | | | +--------+---------+ + + + + +---------+--------+ + + | Name | Type | Priori | Associated Diagnoses | Date/Time | | | | ty | | | + +---------+--------+ + + | MRI IN SURGERY | Imaging | Routin | | 09/15/2005 8:00 AM | | | | e | | PST | + +---------+--------+ + + documented as of this encounter Visit Diagnoses Not on filedocumented in this encounter"
--- OUTSIDE RECORDS SUMMARY | ~2019-07-14 | XMS | Encounter Summary ---
Demographics + + + | Address | [address] | | | [place] [address] | + + + | Home Phone [...] + + + | Author | [place] [employer] [facility] | + + + | Organization | [facility] | [...] Team Providers + +------+ + | Care Poker Room Manager Name | Role | Phone [...] | | | | | adenoma | DNP,HYDRAULIC BULL RIVETER OPERATOR,[place] | [address] | | | | | (HCC) | [address] | | | | | Procedures | Ave | Mailcode: | | | | | MRI | [facility] [place] | [address] | | | | | PITUITARY | [address] | [place] | | | | | WWO CONTRAST | Phone: | Research | | | | | MD MRI | [phone] | [place] | | | | | BRAIN COMBO | Fax: | [place], [place] | | | | | | [phone] | [address] | | | | | | | Phone: | | | | | | | [phone] | | | | | | | Fax: | | | | | | | [phone] | +--------+--------+ + + + + Encounter Details +--------+ + + + + | Date | Type | Department | Care Team | Description | +--------+ + + + + | 09/06/ | MyChart | Neurosurgery at | Donnie, | RE: Just a question | | 2013 | Encounter | [facility] [address] | [place], | | | | | Ave Mailcode: [id number] | DNP,HYDRAULIC BULL RIVETER OPERATOR,[place] [address] | | | | | [facility] | Nura Loya, | | | | | jannette [place], | [place] [address] | | | | | [place] [address] | [phone] | | | | | [place], [place] | | | | | | [address] | | | | | | [phone] | | | +--------+ + + + [...] Rd | | | | | | [place], [place] | | | | | | [address] | | | | | | [phone] | | | | | | | [...] | | + +---------+ + + | [facility] DEPARTMENT OF | | | | | RADIOLOGY | | | | + +---------+ + + documented in this encounter Visit Diagnoses + + | Diagnosis | + + | Pituitary adenoma (HCC) - Primary Benign neoplasm of pituitary gland and | | craniopharyngeal duct (pouch) | + + documented in this encounter"
--- OUTSIDE RECORDS SUMMARY | ~2019-07-14 | XMS | Encounter Summary ---
Demographics + + + | Address | [address] | | | [place] [address] | + + + | Home Phone [...] + + | Author | [place] [employer] [facility] | + + + | Organization | [facility] [...] Team Providers + +------+ + | Care Gore Seamer Name | Role | Phone | + +------+ + | No Pcp Per Patient | PCP | Unavailable | + +------+ + Encounter Details +--------+------+ + + + | Date | Type | Department | Care Team | Description | +--------+------+ + + + | 06/05/ | Lab | Laboratory at [facility] | | Pituitary Adenoma | | 2008 | | [address] | | ([facility]); 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[place], [place] | | Hormone Deficiency | | | | [address] | | ([facility]); Diabetes | | | | [phone] | | Insipidus ([facility]); | | | | | | [...] | | 2019 | Visit | | [address] | | | | | | [address] | | | | | | [place], [place] | | | | | | [address] | | | | | | [phone] | | | | | | | [...] At | + + + | RLB ([facility] Reggie | M[place]THA | | [place] [address] [address] [facility] [facility] | DEPARTMENT OF | | [place] [address] | PATHOLOGY | + + + + + + + + | Performing | Address | City/State/Zipcode | Phone Number | | Organization | | | | + + + + + | [facility] | [address] | [place] [address] | | | PATHOLOGY | [address] [...] | | | DEPARTMENT | | | VINCENTIAN | | | OF | | | [...] MEDICAL CENTER | [address] | [place] [address] | | | PATHOLOGY | [address] [...] At | + + + | [facility] ([facility]) Paredes | [facility] | | [place] [address] [facility] | DEPARTMENT OF | | [place] [address] | PATHOLOGY | + + + + + + + + | Performing | Address | City/State/Zipcode | Phone Number | | Organization | | | | + + + + + | [facility] DEPARTMENT | [address] | [place] [address] | | | PATHOLOGY | [address] [...] | | | | | | Laboratories,[address] [facility] | | | | | | [place] [address] | | | | | | [phone]. | | | | | | Therese [...] [facility] | [address] | [place] [address] | | | PATHOLOGY | [address] [...]
--- OUTSIDE RECORDS SUMMARY | ~2019-07-14 | XMS | Encounter Summary ---
Demographics + + + | Address | [address] | | | [place] [address] | + + + | Home Phone [...] + + + | Author | [place] [employer] [facility] | + + + | Organization | [facility] [...] Team Providers + +------+ + | Care Greenhouse Laborer Name | Role | Phone | + +------+ + | Priscilla Ramírez PA-C | PCP | | + +------+ + Encounter Details +--------+ + + + + | Date | Type | Department | Care Team | Description | +--------+ + + + + | 06/08/ | MyChart | Cardiology General | | Please Schedule | | 2019 | Encounter | at [facility] [address] | | Appointment | | | | [place] Mailcode: | | | | | | [address] | | | | | | Health and Healing, | | | | | | Building | | | | | | floor [place], [place] | | | | | | [address] | | | | | | [phone] | | | +--------+ + + + [...] | | 2019 | Visit | | [address] | | | | | | [address] | | | | | | [place], [place] | | | | | | [address] | | | | | | [phone] | | | | | | | | +--------+---------+ + + + documented as of this encounter Visit Diagnoses Not on filedocumented in this encounter"
--- OUTSIDE RECORDS SUMMARY | ~2019-07-14 | XMS | Encounter Summary ---
Demographics + + + | Address | [address] | | | [place] [address] | + + + | Home Phone [...] + + + | Author | [place] [employer] [facility] | + + + | Organization | [facility] [...] Team Providers + +------+ + | Care Adobe Developer Name | Role | Phone | + +------+ + | Priscilla Ramírez PA-C | PCP | | + +------+ + Reason for Visit + + + | Reason | Comments | + + + | Education procedure | Instructions for angiogram | + + + Encounter Details +--------+ + + + + | Date | Type | Department | Care Team | Description | +--------+ + + + + | 04/07/ | Telephone | Cardiac Floor And Wall Applier Liquid | Wendie Holt RN | Education procedure | | 2018 | | at [facility] [address] | [address] | (Instructions for | | | | [address] | [place], | angiogram) | | | | [facility] | [place] [address] | | | | | [place], [place] | | | | | | [address] | | | | | | [phone] | | | +--------+ + + + [...] Description | +--------+---------+ + + + | 01/06/ | Office | Cardiology | Zuleika Hernandez, | | | 2019 | Visit | | [address] | | | | | | [address] | | | | | | [place] | | | | | | [address] | | | | | | [phone] | | | | | | | | +--------+---------+ + + + documented as of this encounter Visit Diagnoses Not on filedocumented in this encounter"
--- OUTSIDE RECORDS SUMMARY | ~2019-07-14 | XMS | Encounter Summary ---
Demographics + + + | Address | [address] | | | [place] [address] | + + + | Home Phone [...] + + + | Author | [place] [employer] [facility] | + + + | Organization | [facility] | + + + | Address | Unknown | + + + | Phone | Unavailable | + + + Support + + +---------+ + | Name | Relationship | Address | Phone | + + +---------+ + | Alexandria Dixon | ECON | Unknown | | + + +---------+ + Care Team Providers + +------+ + | Care Driver'S Education Instructor Name | Role | Phone | + +------+ + | Bernardo Pan | PCP | | + +------+ + Encounter Details +--------+------+ + + + | Date | Type | Department | Care Team | Description | +--------+------+ + + + | 05/12/ | Lab | Laboratory at [facility] | | 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); Pituitary | | | | [place], [place] | | adenoma (HCC); | | | | [address] | | 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); | | | | | | Diabetes insipidus | | | | | | ([facility]); Vitamin D | | | | | | deficiency; | | | | | | Hypogonadism male; | | | | | | Other specified | | | | | | hypothyroidism; | | | | | | Adrenal | | | | | | insufficiency ([facility]) | +--------+------+ + + + Social History [...] Rd | | | | | | [place], [place] | | | | | | [address] | | | | | | [phone] | | | | | | | | +--------+---------+ + + + documented as of this encounter Procedures + +--------+ + + + | Procedure Name | Priori | Date/Time | Associated Diagnosis | Comments | | | ty | | | | + +--------+ + + + | VITAMIN D, | Routin | 05/12/2017 | Panhypopituitarism | Results for this | | 25-HYDROXY, SERUM | e | 2:03 PM | (HCC) Pituitary | procedure are in the | | | | PDT | adenoma (HCC) | results section. 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 | | | | | 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| | deficiency (HCC) | | | | | | Diabetes insipidus | | | | | | (HCC) Vitamin D | | | | | | deficiency | | | | | | Hypogonadism [...] | + + + + + | [facility] | [address] | [place] [address] | | | SERVICES, CORE | KIMO [...] | + + + + + | [facility] | [address] | [place] [address] | | | SERVICES, CORE | KIMO [...] | | | this test in the [facility] | | | | | | Laboratory Test | | | | | | Directory | | | | | | (AllFreed.Verimatrix).Performed | | | | | | by [facility],[address] | | | | | | Michi Pickens, [facility] | | | | | | [address] | | | | | | [phone].AllFreed. | | | | | | [facility] MD, | | | | | | [...] [facility] | [address] | [place], [place] | | | UN[facility] INT[facility] | | [address] | | + + + + + [...] + | [facility] | [address] | [place] [address] | | | [place] | | | | + + + [...] | | | this test in the [facility] | | | | | | Laboratory Test | | | | | | Directory | | | | | | (AllFreed.[email or web address]).Performed | | | | | | by [facility],[address] | | | | | | [place] | | | | | | [address] | | | | | | [phone].AllFreed. | | | | | | [facility], Ty Walter MD, | | | | [...] [facility] | [address] | [place], [place] | | | UN[facility] INT[facility] | | [address] | | + + + + + [...] [facility] | [address] | [place] [address] | | | SERVICES, CORE | PARK [...] | | | LABORATORY | | | PUERTO RICAN | | | SERVICES, | | [...] | + + + + + | [facility] | [address] [facility] | [place] [address] | | | SERVICES, CORE | [address] | | | + + + + + documented in this encounter Visit Diagnoses + + | Diagnosis | + + | Panhypopituitarism (HCC) Panhypopituitarism | + + | Pituitary adenoma [...]
--- OUTSIDE RECORDS SUMMARY | ~2019-07-14 | XMS | Encounter Summary ---
Demographics + + + | Address | [address] | | | [place] [address] | + + + | Home Phone [...] + + + | Author | [place] [address] [employer] [facility] | + + + | Organization | [facility] [...] Team Providers + +------+ + | Care Visual Display Manager Name | Role | Phone | + +------+ + | No Pcp Per Patient | PCP | Unavailable | + +------+ + Encounter Details +--------+ + + + + | Date | Type | Department | Care Team | Description | +--------+ + + + + | 02/20/ | Telephone | Neurosurgery at | Jaclyn Crawford, | | | 2010 | | [facility] [address] | [address] | | | | | [place] Mailcode: CH8N | [address] | | | | | [facility] | [place], [place] | | | | | and Healing, | [address] | | | | | [facility] [address] | [phone] | | | | | [place], [place] | | | | | | [address] | | | | | | [phone] | | | +--------+ + + + [...] Rd | | | | | | [place], [place] | | | | | | [address] | | | | | | [phone] | | | | | | | | +--------+---------+ + + + documented as of this encounter Visit Diagnoses Not on filedocumented in this encounter"
--- OUTSIDE RECORDS SUMMARY | ~2019-07-14 | XMS | Encounter Summary ---
Demographics + + + | Address | [address] | | | [place] [address] | + + + | Home Phone [...] + + + | Author | [place] [employer] [facility] | + + [...] Providers + +------+ + | Care Customer Relations Specialist Name | Role | Phone | [...] | | | | | | | DNP,DOUGHNUT MACHINE OPERATOR HELPER,[place] | | | | | | | [address] | | | | | | | Ave | | | | | | | [place], [place] | | | | | | | [address] | | | | | | | Phone: | | | | | | | [phone] | | | | | | | Fax: | | | | | | | [phone] | +--------+--------+ + + + + Encounter Details +--------+---------+ + + + | Date | Type | Department | Care Team | Description | +--------+---------+ + + + | 06/01/ | Office | Neurosurgery at | Donnie, | Pituitary adenoma | | 2011 | Visit | [facility] [address] | [place], | ([facility]); Adrenal | | | | Ave Mailcode: CH8N | DNP,DOUGHNUT MACHINE OPERATOR HELPER,[place] [address] | insufficiency ([facility]) | | | | [facility] | [address], | | | | | and [place], | [place] [address] | | | | | [place] [address] | [phone] | | | | | [place], [place] | | | | | | [address] | | | | | | [phone] | | | +--------+---------+ + + + [...] in this encounter Progress Notes Cathie Fields, DNP,DOUGHNUT MACHINE OPERATOR HELPER,[place] - 06/01/2012 2:12 PM PDTReason for visit. [...] a cardiac stent place 02/2011 after an [place]. At this visit; Symptoms and Complaints: Hair [...] at next visit in 6 mths with CO FOUNDER AND CHAIRMAN, RM labs I spent 30 minutes [id number] time with this patient of which over 50% was spent in medic ally indicated counseling and education pertaining to the issues discussed above. TOMER MONTELONGO DNP, [place] Hogshead Stock Clerk [facility] [address] [facility] [address] documented in this encounter Plan of Treatment +--------+---------+ + + + | Date | Type | Specialty | Care Team | Description | +--------+---------+ + + + | 08/15/ | Office | Cardiology | Zuleika Hernandez, | | | 2019 | Visit | | [address] | | | | | | [address] | | | | | | [place], [place] | | | | | | [address] | | | | | | [phone] | | | | | | | [...] - | | | | | | [place] | | + +--------+ + + + + + | Specimen | + + | Blood - Blood | + + + + + + + | Performing | Address | City/State/Zipcode | Phone Number | | Organization | | | | + + + + + | [facility] - | [address] | [place] [address] | | | [place] | | | | + + + [...] + | [facility] - | [address] | [place] [address] | | | [facility] | | | | + + [...] + | [facility] - | [address] | [place] [address] | | | [place] | | | [...] + | [facility] - | [address] | [place] [address] | | | [place] | | | [...] + | [facility] - | [address] | [place] [address] | | | [place] | | | [...] + + + + + | [facility] | [address] | [place] [address] | | | [facility] | | | | | HEALTH [...]
--- OUTSIDE RECORDS SUMMARY | ~2019-07-14 | XMS | Encounter Summary ---
Demographics + + + | Address | [address] | | | [place] [address] | + + + | Home Phone [...] + + | Author | [place] [employer] [facility] | + + + | Organization | [facility] | [...] Providers + +------+ + | Care Assistant Refinery Operator Name | Role | Phone | [...] + | 03/29/ | Telephone | Cardiac Die Forger | Galdino Ramirez | Procedure | | 2018 | | at [address] | E, [address] | | | | | [address] | Ave [place], [place] | | | | | [facility] | [address] | | | | | [place], [place] | [phone] | | | | | [address] | | | | | | [phone] | | | +--------+ + + + [...] Rd | | | | | | [place], [place] | | | | | | [address] | | | | | | [phone] | | | | | | | | +--------+---------+ + + + documented as of this encounter Visit Diagnoses Not on filedocumented in this encounter"
--- OUTSIDE RECORDS SUMMARY | ~2019-07-14 | XMS | Encounter Summary ---
Demographics + + + | Address | [address] | | | [place] [address] | + + + | Home Phone [...] + + + | Author | [place] [employer] [facility] | + + + | Organization | [facility] [...] Providers + +------+ + | Care Oil Treater Name | Role | Phone | + [...] Refill Request | | 2017 | | [facility] [address] | [place] | | | | | [place] Mailcode: CH8N | DNP,HOB MILL OPERATOR,[place] [address] | | | | | [facility] | [address] [place], | | | | | and Healing, | [place] [address] | | | | | Building [address] | [phone] | | | | | [place], [place] | | | | | | [address] | | | | | | [phone] | | | +--------+--------+ + + + [...] Rd | | | | | | [place], [place] | | | | | | [address] | | | | | | [phone] | | | | | | | [...]
--- OUTSIDE RECORDS SUMMARY | ~2019-07-14 | XMS | Encounter Summary ---
Demographics + + + | Address | [address] [facility] | | | [place] [address] | + + + | Home Phone [...] + + + | Author | [place] [employer] [facility] | + + + | Organization | [facility] | + + + | Address | Unknown | + + + | Phone | Unavailable | + + + Support + + +---------+ + | Name | Relationship | Address | Phone | + + +---------+ + | Alexandria Dixon | ECON | Unknown | | + + +---------+ + Care Team Providers + +------+ + | Care Digital Imager Name | Role | Phone | + [...] | | | | | | [place]oul[place], | | | | | | | [place] | | | | | | | [address] | | | | | | | Phone: | | | | | | | [phone] | | | | | | | Fax: | | | | | | | [phone] | +--------+--------+ + + + + Encounter [...] | | | Ave Mailcode: CH8A | [place], [place] | Duct (Pouch) ([facility]) | | | | [place] [facility] | [address] | (Primary Dx); 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and Healing, | [phone] | Hormone Deficiency | | | | Building | | (HCC); | | | | Floor [place], [place] | | 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[facility]); | | | | [phone] | | 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
--- OUTSIDE RECORDS SUMMARY | ~2019-07-14 | XMS | Encounter Summary ---
Demographics + + + | Address | [address] | | | [place] [address] | + + + | Home Phone [...] + + + | Author | [place] [employer] [facility] | + + + | Organization | [facility] [...] Team Providers + +------+ + | Care Ingot Supervisor Name | Role | Phone | + +------+ + | Priscilla Ramírez PA-C | PCP | | + +------+ + Encounter Details +--------+ + + + + | Date | Type | Department | Care Team | Description | +--------+ + + + + | 10/31/ | Ancillary | Registration 3181 | Donnie, | | | 2005 | Registratio | [facility] | Cathie | | | | n | Abdoulaye Mailcode: [id number] | DNP,CONTROL ROOM TENDER,[place] [address] | | | | | [place], [place] | [address] [place], | | | | | [address] | [place] [address] | | | | | [phone] | [phone] | | | | | | | [...] [place] | | | | | | [address] | | | | | | [phone] | | | | | | | | +--------+---------+ + + + documented as of this encounter Visit Diagnoses Not on filedocumented in this encounter"
--- OUTSIDE RECORDS SUMMARY | ~2019-07-14 | XMS | Encounter Summary ---
Demographics + + + | Address | [address] | | | [place] [address] | + + + | Home Phone [...] + + + | Author | [place] [facility] | + + + | Organization | [facility] | [...] Providers + +------+ + | Care Senior Master Scheduler Name | Role | Phone | [...] Description | +--------+--------+ + + + | 05/20/ | Refill | Neurosurgery at | [place], | Refill Request | | 2018 | | [facility] [address] | Cathie, | | | | | [place] Mailcode: CH8N | DNP,MINING SUPPORT WORKER,[place] [address] | | | | | [facility] | [address] [place], | | | | | and Healing, | [place] [address] | | | | | Building 1 | [phone] | | | | | [place], [place] | | | | | | [address] | | | | | | [phone] | | | +--------+--------+ + + + [...] Rd | | | | | | [place], [place] | | | | | | [address] | | | | | | [phone] | | | | | | | [...]
--- OUTSIDE RECORDS SUMMARY | ~2019-07-14 | XMS | Encounter Summary ---
Demographics + + + | Address | [address] | | | [place] [address] | + + + | Home Phone [...] + + | Author | [place] [employer] [facility] | + + + | Organization | [facility] | + [...] Team Providers + +------+ + | Care Granulating Machine Operator Name | Role | Phone [...] | | | | | | | DNP,BOOKING OFFICER,[place] | | | | | | | [address] | | | | | | | Ave | | | | | | | [place], [place] | | | | | | | [address] | | | | | | | Phone: | | | | | | | [phone] | | | | | | | Fax: | | | | | | | [phone] | +--------+--------+ + + + + Encounter Details +--------+---------+ + + + | Date | Type | Department | Care Team | Description | +--------+---------+ + + + | 08/15/ | Office | Neurosurgery at | Donnie, | Pituitary adenoma | | 2011 | Visit | [facility] [address] | [place], | ([facility]); 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Ave Mailcode: CH8N | DNP,BOOKING OFFICER,[place] [address] | hormone deficiency | | | | [facility] | [address] [place], | ([facility]); 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, | [place] [address] | insipidus ([facility]); | | | | Building 1 | [phone] | Hypogonadism male; | | | | [place], [place] | | Hypothyroid; Adrenal | | | | [address] | | insufficiency (HCC) | | | | [phone] | | | +--------+---------+ + + + [...] in this encounter Progress Notes [place] Fields, DNP,BOOKING OFFICER,[place] - 08/15/2011 2:44 PM PSTReason for visit. [...] a cardiac stent place 02/2011 after an OR. At this visit; Symptoms and Complaints: Facial [...] of weight after increasing her glucocorticoids post OR. We discus sed tapering these and improving [...] in DDAVp anticiapted. 5. MRI 04/21 with MACHINE JOINER CEMENTER, RM labs I spent 30 minutes mvif-sx-pgay time with this patient of which over 50% was spent in medic ally indicated counseling and education pertaining to the issues discussed above. CARRINGTON FIELDS DNP, TOMER, BECCA [facility] [place] [address] [facility] [place] [address] Plan 1. Vitamin D deficiency. Start vit [...] | | 2019 | Visit | | [address] | | | | | | [address] | | | | | | [place], [place] | | | | | | [address] | | | | | | [phone] | | | | | | | [...] | + + + + + | [facility] | [address] | [place] [address] | | | PATHOLOGY | [address] [...] + + + | [facility] ([facility]) | [place] | | [facility] [place] [address] | REGIONAL | | [place] [address] | LABORATORY | + + + + + + + + | Performing | Address | City/State/Zipcode | Phone Number | | Organization | | | | + + + + + | [facility] | [address] | [place] [address] | | | LABORATORY | | | [...] + + + | [facility] ([facility]) [place] | [place] | | [place] [address] | REGIONAL | | [place] [address] | LABORATORY | + + + + + + + + | Performing | Address | City/State/Zipcode | Phone Number | | Organization | | | | + + + + + | [facility] | [address] | [place] [address] | | | LABORATORY | | | [...] At | + + + | [facility] [facility]) [place] | [place] | | [place] [address] [facility] | [facility] | | [place] [address] | LABORATORY | + + + + + + + + | Performing | Address | City/State/Zipcode | Phone Number | | Organization | | | | + + + + + | [facility] | [address] [facility] | [place] [address] | | | LABORATORY | | | [...] At | + + + | [facility] ([address] [facility]) [place] | [place] | | [place] [address] [facility] | REGIONAL | | [place] [address] | LABORATORY | + + + + + + + + | Performing | Address | City/State/Zipcode | Phone Number | | Organization | | | | + + + + + | [facility] | [address] | [place] [address] | | | LABORATORY | | | [...] [place] | [place] | | [place] [address] | REGIONAL | | [place] [address] | LABORATORY | + + + + + + + + | Performing | Address | City/State/Zipcode | Phone Number | | Organization | | | | + + + + + | [facility] | [address] | [place] [address] | | | LABORATORY | | | [...] | | | DEPARTMENT | | | STATELESS | | | OF | | | [...] | + + + + + | [facility] | [address] | [place] [address] | | | PATHOLOGY | [address] [...]
--- OUTSIDE RECORDS SUMMARY | ~2019-07-14 | XMS | Encounter Summary ---
Demographics + + + | Address | [address] [facility] | | | [place] [address] | + + + | Home Phone [...] + + + | Author | [place] [employer] [facility] | + + + | Organization | [facility] | [...] Providers + +------+ + | Care Watch Dial Maker Name | Role | Phone | [...] Refill Request | | 2006 | | [facility] [address] | Cathie, | | | | | [place] Mailcode: CH8N | DNP,SERVICE PROVIDER,[place] [address] | | | | | [facility] | [address] [place], | | | | | and [facility], | [place] [address] | | | | | [facility] | [phone] | | | | | Floor [place], [place] | | | | | | [address] | | | | | | [phone] | | | +--------+--------+ + + + [...] Rd | | | | | | [place], [place] | | | | | | [address] | | | | | | [phone] | | | | | | | | +--------+---------+ + + + documented as of this encounter Visit Diagnoses Not on filedocumented in this encounter"
--- OUTSIDE RECORDS SUMMARY | ~2019-07-14 | XMS | Encounter Summary ---
Demographics + + + | Address | [address] | | | [place] [address] | + + + | Home Phone [...] + + + | Author | [place] [employer] [facility] | + + + | Organization | [facility] [...] Team Providers + +------+ + | Care Document Reviewer Name | Role | Phone | [...] | | 2012 | | [facility] [address] | Cathie, | | | | | [place] Mailcode: CH8N | DNP,DELIMBER OPERATOR,[place] [address] | | | | | [facility] | [address] [place], | | | | | and Healing, | [place] [address] | | | | | Building 1 | [phone] | | | | | [place], [place] | | | | | | [address] | | | | | | [phone] | | | +--------+--------+ + + + [...] Rd | | | | | | [place], [place] | | | | | | [address] | | | | | | [phone] | | | | | | | | +--------+---------+ + + + documented as of this encounter Visit Diagnoses Not on filedocumented in this encounter"
--- OUTSIDE RECORDS SUMMARY | ~2019-07-14 | XMS | Encounter Summary ---
Demographics + + + | Address | [address] | | | [place] [address] | + + + | Home Phone [...] + + + | Author | [place] [employer] [facility] | + + + | Organization | [facility] | [...] Team Providers + +------+ + | Care Grout Worker Name | Role | Phone | + +------+ + | Jinny Bergeron MD | PCP | | + +------+ + Encounter Details +--------+ + + + + | Date | Type | Department | Care Team | Description | +--------+ + + + + | 11/17/ | Jacob | Neurosurgery at | Donnie, | Talked with | | 2014 | Encounter | [facility] [address] | Cathie, | You | | | | [place] Mailcode: [id number] | DNP,PREPARATION PLANT SUPERVISOR,[place] [address] | | | | | [facility] | [address] [place], | | | | | and [place], | [place] [address] | | | | | [place] [address] | [phone] | | | | | [place], [place] | | | | | | [address] | | | | | | [phone] | | | +--------+ + + + [...] [place] | | | | | | [address] | | | | | | [phone] | | | | | | | | +--------+---------+ + + + documented as of this encounter Visit Diagnoses Not on filedocumented in this encounter"
--- OUTSIDE RECORDS SUMMARY | ~2019-07-14 | XMS | Encounter Summary ---
Demographics + + + | Address | [address] | | | [place] [address] | + + + | Home Phone [...] + + | Author | [place] [employer] [facility] | + + + | Organization | [facility] | + + + | Address | Unknown | + + + | Phone | Unavailable | + + + Support + + +---------+ + | Name | Relationship | Address | Phone | + + +---------+ + | Alexandria Dixon | ECON | Unknown | | + + +---------+ + Care Team Providers + +------+ + | Care Test Worker Name | Role | Phone | + +------+ + | Priscilla Ramírez PA-C | PCP | | + +------+ + Encounter Details +--------+ + + + + | Date | Type | Department | Care Team | Description | +--------+ + + + + | 02/21/ | MyChart | Diagnostic Imaging | | Appointment Reminder | | 2019 | Encounter | Services [address] | | | | | [address] | | | | | | [place], [place] | | | | | | [address] | | | +--------+ + + + [...] | | | | | | [place], [place] | | | | | | [address] | | | | | | [phone] | | | | | | | | +--------+---------+ + + + documented as of this encounter Visit Diagnoses Not on filedocumented in this encounter"
--- OUTSIDE RECORDS SUMMARY | ~2019-07-14 | XMS | Clinical Summary ---
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 Last | | [facility] 04/2017 in the setting of NSTEMI demonstrated RANGE AID RCA with | | collateral flow from [...] | | control as per PCP and health facilities surveyor-- BP well controlled today | + + [...] Overview: Last Assessment & Plan: 2V-CAD, Hx CO, Hx | | PCI/stent, LVEF 60-65%. 36yo M, known to have coronary | | disease, distant infarction, angioplasty and stenting. 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 He going | | to follow up with [facility] Aug 14. He also had cath report prior to | | procedure which had shown 2 vessel coronary artery disease with | | moderate disease to that proximal to mid LAD, stent to left CX, | | chronically occluded RCA with pqmi-xz-icmlz collaterals. | | Suggestion had been for [...] | | circumflex, chronically occluded RCA with meag-nn-cjozd | | collaterals. Suggestion for surgery: saphenous vein graft to | | RCA.Last Echo, 05/22/2016 ([facility]): LVEF 60-65%, | | significant WMA, 7-8mm mass LV-side of posterior Mitral leaflet, | | no MR, trace TR.Last Stress Test, 10/03/2014: [facility], | | infero-apical ischemia, LVEF 54%.ECG, 07/02/2016: sinus rhythm, | | 63bpm, old inferior CO. | + + + + + | [...] Plan: Pituitary adenoma, followed | | by [facility], associated with hypogonadism, hypothyroidism, diabetes | | insipidus, and adrenal insufficiency. On replacement | | therapy.MRI-brain, 07/13/2151 ([facility]): FINDINGS: Sella and | | parasellar: There [...] [place] | | | | | | [address] | | | | | | | [...] | [employer] | MODA | [id number] | | [phone] | | Medica | | MEDICAID HMO | HEALTH | | 018-Pr | 1 | | id | | | MDCD | | esent | | | | | | [place] | | | | | | + +--------+ +--------+ +---------+--------+ | [facility] | IHS | [id number] | | | | Indemn | | [...] Person | Self | [birth year] | [address] | | | al/Fam | | 1980 | [phone] | [place] | | | luli | | | 8 (Home) | [address] | + +--------+ +--------+ + + Advance Directives + + + + + | Type | Date Recorded | Patient | Explanation | | | | Production Editor | | + + + + + | Power of | | | | | Documentation Lead | | | | + + + [...]
--- OUTSIDE RECORDS SUMMARY | ~2019-07-14 | XMS | Encounter Summary ---
Demographics + + + | Address | [address] | | | [place] [address] | + + + | Home Phone [...] + + | Author | [place] [employer] [facility] | + + + | Organization | [facility] [...] Team Providers + +------+ + | Care Architectural Designer Name | Role | Phone | [...] Refill Request | | 2008 | | [facility] [address] | Cathie, | | | | | [place] Mailcode: CH8N | DNP,PIECER UP,[place] [address] | | | | | [facility] | [address] [place], | | | | | and [facility], | [place] [address] | | | | | Building 1 | [phone] | | | | | [place], [place] | | | | | | [address] | | | | | | [phone] | | | +--------+--------+ + + + [...] Rd | | | | | | [place], [place] | | | | | | [address] | | | | | | [phone] | | | | | | | | +--------+---------+ + + + documented as of this encounter Visit Diagnoses Not on filedocumented in this encounter"
--- OUTSIDE RECORDS SUMMARY | ~2019-07-14 | XMS | Encounter Summary ---
Demographics + + + | Address | [address] | | | [place] [address] | + + + | Home Phone | | + + + | Preferred Language | Unknown | + + + | Marital Status | Single | + + + | Congregation Affiliation | Unknown | + + + | Race | Unknown | + + + | Ethnic Group | Unknown | + + + Author + + + | Author | [facility] | | | and [place] | + + + | Organization | [facility] [...] + | 02/13/ | Office | [facility] | Sumanth Champion PA | MALLIKA on CPAP (Primary | | 2015 | Visit | SLEEP DISORDER [address] | [address] | Dx) | | | | [address] [place] | [place] | | | | | [place] [address] | [address] | | | | | [phone] | | | +--------+---------+ + + + [...] mask obtained from: [facility] [place] pressure: 12-18 cm Median: 12.1 cm 95%: [...] months, sooner prn. Thirty minutes were spent ecln-rm-fbyf, wi th the majority of time spent [...] [place] | | | | | | [id number] | | | | | | | | +--------+---------+ + + + documented as of this encounter Visit Diagnoses + + | Diagnosis | + + | MALLIKA on CPAP - Primary Obstructive sleep apnea (adult) (pediatric) | + + documented in this encounter"
--- OUTSIDE RECORDS SUMMARY | ~2019-07-14 | XMS | Encounter Summary ---
Demographics + + + | Address | [address] [facility] [address] | | | [place] [address] | + + + | Home Phone [...] + + + | Author | [place] [employer] [facility] | + + + | Organization | [facility] [...] Team Providers + +------+ + | Care University Manager Name | Role | Phone | + +------+ + | No Pcp Per Patient | PCP | Unavailable | + +------+ + Encounter Details +--------+------+ + + + | Date | Type | Department | Care Team | Description | +--------+------+ + + + | 11/30/ | Lab | Laboratory at [facility] | | Pituitary adenoma | | 2009 | | [address] | | ([facility]); 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[place], [place]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 | | | | [address] | | ([facility]); Diabetes | | | | [phone] | | insipidus ([facility]); | | | | | [...] | | 2019 | Visit | | [address] | | | | | | [address] | | | | | | [place], [place] | | | | | | [address] | | | | | | [phone] | | | | | | | [...] [facility] | [address] | [place], [place] | | | [facility] | | [address] | | + + + + + [...] [place] | [place] | | [place] [address] | REGIONAL | | [place] [address] | LABORATORY | + + + + + + + + | Performing | Address | City/State/Zipcode | Phone Number | | Organization | | | | + + + + + | [facility] | [address] | [place] [address] | | | LABORATORY | | | [...] ([address] [facility]) [place] | [place] | | [place] [address] | REGIONAL | | [place] [address] | LABORATORY | + + + + + + + + | Performing | Address | City/State/Zipcode | Phone Number | | Organization | | | | + + + + + | [facility] | [address] | [place] [address] | | | LABORATORY | | | [...] [place] | [place] | | [place] [address] | REGIONAL | | [place] [address] | LABORATORY | + + + + + + + + | Performing | Address | City/State/Zipcode | Phone Number | | Organization | | | | + + + + + | [facility] | [address] | [place] [address] | | | LABORATORY | | | [...] [place] | | [facility] ([address] [facility] [place] [facility] | | [facility] [place] [address] | LABORATORY | | [place] [address] | | + + + + + + + + | Performing | Address | City/State/Zipcode | Phone Number | | Organization | | | | + + + + + | [facility] | [address] | [place] [address] | | | LABORATORY | | | [...] | + + + + + | [facility] | [address] | [place] [address] | | | PATHOLOGY | [address] [...]
--- OUTSIDE RECORDS SUMMARY | ~2019-07-14 | XMS | Encounter Summary ---
Demographics + + + | Address | [address] | | | [place] [address] | + + + | Home Phone [...] + + + | Author | [place] [employer] [facility] | + + + | Organization | [facility] [...] Team Providers + +------+ + | Care Stage Setting Painter Apprentice Name | Role | Phone | [...] | | 2011 | | [facility] [address] | Cathie, | | | | | [place] Mailcode: CH8N | DNP,PERSONNEL COUNSELOR,[place] [address] | | | | | [facility] | [address] [place], | | | | | and [facility], | [place] [address] | | | | | Building 1 | [phone] | | | | | [place], [place] | | | | | | [address] | | | | | | [phone] | | | +--------+--------+ + + + [...] | 08/15/ | Office | Cardiology | Zuelika Hernandez, | | | 2019 | Visit | | [address] | | | | | | [address] | | | | | | [place], [place] | | | | | | [address] | | | | | | [phone] | | | | | | | | +--------+---------+ + + + documented as of this encounter Visit Diagnoses Not on filedocumented in this encounter"
--- OUTSIDE RECORDS SUMMARY | ~2019-07-14 | XMS | Encounter Summary ---
Demographics + + + | Address | [address] | | | [place] [address] | + + + | Home Phone [...] | Author | [facility] | | | and [place] | + + + | Organization | [facility] | [...] Providers + +------+ + | Care Manager Group Home Name | Role | Phone | + +------+ + | Priscilla Ramírez PA-C | PCP | | + +------+ + Encounter Details +--------+ + + + + | Date | Type | Department | Care Team | Description | +--------+ + + + + | 10/03/ | Orders Only | [facility] | Juan Bernard | | | 2015 | | [place] | MD [address] | | | | | [address] | [address] | | | | | [place], [place] | [place] [address] | | | | | [address] | [phone] | | | | | [phone] | | | +--------+ + + + [...] 2020 | Visit | | [address] | | | | | | [place] | | | | | | [address] | | | | | | | [...] MV A Fadi: 0.71 m/s MV Dec Shawano: 5.69 m/s2 MV DecT: | | | [...] TR Vmax: | | | 2.00 m/s Machine Tailer: KATERINA Authenticated by: JUAN BERNARD MD | | | Report Date/Time: -- [id number]:33 | | + + + + + [...] cmLVPWd: 1.06 cmLVOT Area: | | 4.25 nz4TJTA Diam: 2.32 cm%FS: 33.02 %EF(Teich): 61.88 %ESV(Teich): [...] | Index (A-L): 23.80 ml/m2LAAs A2C: 17.19 ue2LLTPQ A-L A2C: 46.10 mlLALs A2C: 5.44 | | cmLAAs A4C: 21.75 sa9ERJTG A-L A4C: 69.81 mlLALs A4C: 5.75 cmAo Diam: 3.50 cmLA | | Diam: 4.28 cmLA/Ao: 1.22AV maxP.27 mmHgAV meanP.24 mmHgAV Vmax: 1.03 | | m/April Vmean: 0.70 m/April VTI: 20.32 cmAVA Vmax: 3.77 cm2AVA (VTI): 3.73 ey1PJNE | | maxP.37 mmHgLVOT meanP.74 mmHgLVSI Dopp: 31.01 ml/m2LVSV Dopp: 75.99 | | mlLVOT Vmax: 0.91 m/sLVOT Vmean: 0.61 m/sLVOT VTI: 17.87 cmIVRT: 96.88 msMV A | | Fadi: 0.71 m/sMV Dec Shawano: 5.69 m/s2MV DecT: 143.40 msMV E Fadi: 0.81 m/sMV E/A | | Ratio: 1.13MV PHT: 41.58 msMVA By PHT: 5.29 sl7Scameu e': 0.08 m/sSeptal E/e': | | 10.17Lateral e': 0.10 m/sLateral E/e': 8.09RAP: 10 mmHgRVSP: 26.02 mmHgTR | | maxP.02 mmHgTR Vmax: 2.00 m/s Machine Tailer: BETTYuthenticated by: JUAN | | NORMAGERDA MATIASdeni Date/Time: -- [id number]:33 IMPRESSION: 1. Overall left | | ventricular [...] A Fadi: 0.71 m/s | |MV Dec Shawano: 5.69 m/s2 | |MV DecT: 143.40 ms [...] |TR Vmax: 2.00 m/s | | | |Machine Tailer: KATERINA | |Authenticated by: JUAN BERNARD MD | |Report Date/Time: [id number]:37:33 | | | |IMPRESSION: | |1. Overall left ventricular systolic function is normal with, an EF between 55 - 60 %. | |2. There is mild concentric left ventricular hypertrophy. | + + documented in this encounter Visit Diagnoses Not on filedocumented in this encounter"
--- OUTSIDE RECORDS SUMMARY | ~2019-07-14 | XMS | Encounter Summary ---
Demographics + + + | Address | [address] | | | [place] [address] | + + + | Home Phone [...] + + + | Author | [place] [employer] [facility] | + + + | Organization | [facility] | + + + | Address | Unknown | + + + | Phone | Unavailable | + + + Support + + +---------+ + | Name | Relationship | Address | Phone | + + +---------+ + | Alexandria Dixon | ECON | Unknown | | + + +---------+ + Care Team Providers + +------+ + | Care Tennis Centre Manager Name | Role | Phone | + +------+ + | Jinny Bergeron MD | PCP | | + +------+ + Encounter Details +--------+ + + + + | Date | Type | Department | Care Team | Description | +--------+ + + + + | 06/02/ | Documentati | Neurosurgery at | Donnie, | | | 2016 | on | [address] | Cathie | | | | | [place] Mailcode: CH8N | DNP,NETWORK CABLE INSTALLER,[place] [address] | | | | | [facility] | [address] [place], | | | | | and [place], | [place] [address] | | | | | [place] [address] | [phone] | | | | | [place], [place] | | | | | | [address] | | | | | | [phone] | | | +--------+ + + + [...] Rd | | | | | | [place], [place] | | | | | | [address] | | | | | | [phone] | | | | | | | | +--------+---------+ + + + documented as of this encounter Visit Diagnoses Not on filedocumented in this encounter"
--- OUTSIDE RECORDS SUMMARY | ~2019-07-14 | XMS | Encounter Summary ---
Demographics + + + | Address | [address] [facility] [address] | | | [place] [address] | + + + | Home Phone [...] + + + | Author | [place] [employer] [facility] | + + + | Organization | [facility] | [...] Providers + +------+ + | Care Inspector Final Assembly Electrical Name | Role | Phone | + [...] | | 2011 | Encounter | [address] | [address] | | | | | [place] Mailcode: CH8N | [address] | | | | | [facility] | [place], [place] | | | | | and Healing, | [address] | | | | | [place] [address] | [phone] | | | | | [place], [place] | | | | | | [address] | | | | | | [phone] | | | +--------+ + + + [...] [place] | | | | | | [address] | | | | | | [phone] | | | | | | | | +--------+---------+ + + + documented as of this encounter Visit Diagnoses Not on filedocumented in this encounter"
--- OUTSIDE RECORDS SUMMARY | ~2019-07-14 | XMS | Encounter Summary ---
Demographics + + + | Address | [address] [facility] | | | [place] [address] | + + + | Home Phone [...] + + + | Author | [place] [employer] [facility] | + + + | Organization | [facility] | [...] Team Providers + +------+ + | Care Color Maker Formulator Name | Role | Phone | + +------+ + | No Pcp Per Patient | PCP | Unavailable | + +------+ + Encounter Details +--------+ + + + + | Date | Type | Department | Care Team | Description | +--------+ + + + + | 12/02/ | Client Care Coordinator | Neurosurgery at | [place]nie, | | | 2009 | | [facility] [address] | Cathie | | | | | [place] Mailcode: CH8N | DNP,FARM PRODUCT PURCHASER,[place] [address] | | | | | [facility] | [address] [place], | | | | | and Healing, | [place] [address] | | | | | | [phone] | | | | | Floor [place], [place] | | | | | | [address] | | | | | | [phone] | | | +--------+ + + + [...] Rd | | | | | | [place], [place] | | | | | | [address] | | | | | | [phone] | | | | | | | | +--------+---------+ + + + documented as of this encounter Visit Diagnoses Not on filedocumented in this encounter"
--- OUTSIDE RECORDS SUMMARY | ~2019-07-14 | XMS | Encounter Summary ---
Demographics + + + | Address | [address] | | | [place] [address] | + + + | Home Phone [...] + + + | Author | [place] [employer] [facility] | + + + | Organization | [facility] | + + + | Address | Unknown | + + + | Phone | Unavailable | + + + Support + + +---------+ + | Name | Relationship | Address | Phone | + + +---------+ + | Alexandria Dixon | ECON | Unknown | | + + +---------+ + Care Team Providers + +------+ + | Care Supervisor Cellars Name | Role | Phone | + +------+ + | Jhonny Rodriguez DO | PCP | | + +------+ + Encounter Details +--------+ + + + + | Date | Type | Department | Care Team | Description | +--------+ + + + + | 09/01/ | Document-Sc | Neurosurgery at | Donnie, | | | 2013 | annwale | [facility] [address] | Cathie | | | | | [place] Mailcode: CH8N | DNP,UNDERWRITER SOLICITATION DIRECTOR,[place] [address] | | | | | [facility] | [place], | | | | | and [place], | [place] [address] | | | | | [place] [address] | [phone] | | | | | [place], [place] | | | | | | [address] | | | | | | [phone] | | | +--------+ + + + [...] Rd | | | | | | [place], [place] | | | | | | [address] | | | | | | [phone] | | | | | | | [...]
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
--- OUTSIDE RECORDS SUMMARY | ~2019-07-14 | XMS | Encounter Summary ---
Demographics + + + | Address | [address] [facility] [facility] | | | [place] [address] | + + + | Home Phone [...] + + | Author | [place] [employer] [facility] | + + + | Organization | [facility] | [...] Team Providers + +------+ + | Care Sedimentationist Name | Role | Phone | + +------+ + | Priscilla Ramírez PA-C | PCP | | + +------+ + Encounter Details +--------+ + + + + | Date | Type | Department | Care Team | Description | +--------+ + + + + | 08/15/ | MyChart | Cardiology General | | Referral for | | 2016 | Encounter | at [facility] [address] | | Cardiology | | | | [address] Mailcode: | | | | | | [address] for | | | | | | Health and Healing, | | | | | | | | | | | | floor [place], [place] | | | | | | [address] | | | | | | [phone] | | | +--------+ + + + [...] | | 2019 | Visit | | [address] | | | | | | [address] | | | | | | [place], [place] | | | | | | [address] | | | | | | [phone] | | | | | | | | +--------+---------+ + + + documented as of this encounter Visit Diagnoses Not on filedocumented in this encounter"
--- OUTSIDE RECORDS SUMMARY | ~2019-07-14 | XMS | Encounter Summary ---
Demographics + + + | Address | [address] | | | [place] [address] | + + + | Home Phone [...] + + + | Author | [place] [employer] [facility] | + + + | Organization | [facility] [...] Team Providers + +------+ + | Care Regional Guide Name | Role | Phone | + [...] | | | 2011 | on | [facility] [address] | [address] | | | | | [address] Mailcode: CH8N | [facility] | | | | | [facility] | [place] [address] | | | | | and Healing, | [phone] | | | | | | | | | | | Floor [place], [place] | | | | | | [address] | | | | | | [phone] | | | +--------+ + + + [...] Rd | | | | | | [place], [place] | | | | | | [address] | | | | | | [phone] | | | | | | | | +--------+---------+ + + + documented as of this encounter Visit Diagnoses Not on filedocumented in this encounter"
--- OUTSIDE RECORDS SUMMARY | ~2019-07-14 | XMS | Encounter Summary ---
Demographics + + + | Address | [address] | | | [place] [address] | + + + | Home Phone [...] + + + | Author | [place] [employer] [facility] | + + + | Organization | [facility] | + + + | Address | Unknown | + + + | Phone | Unavailable | + + + Support + + +---------+ + | Name | Relationship | Address | Phone | + + +---------+ + | Alexandria Dixon | ECON | Unknown | | + + +---------+ + Care Team Providers + +------+ + | Care Stem Maker Name | Role | Phone | [...] | Medication | | 2011 | | [facility] [address] | Cathie, | | | | | [place] Mailcode: CH8N | DNP,NEWSPAPER DELIVERY DRIVER,[place] [address] | | | | | [facility] | [address] [place], | | | | | and [place], | [place] [address] | | | | | Building 1 | [phone] | | | | | [place], [place] | | | | | | [address] | | | | | | [phone] | | | +--------+ + + + [...] Rd | | | | | | [place], [place] | | | | | | [address] | | | | | | [phone] | | | | | | | | +--------+---------+ + + + documented as of this encounter Visit Diagnoses Not on filedocumented in this encounter"
--- OUTSIDE RECORDS SUMMARY | ~2019-07-14 | XMS | Encounter Summary ---
Demographics + + + | Address | [address] | | | [place] [address] | + + + | Home Phone [...] + + + | Author | [place] [employer] [facility] | + + + | Organization | [facility] | [...] Providers + +------+ + | Care Test Technician Name | Role | Phone | [...] images) | | 2018 | | at [facility] [address] | MD [address] | | | | | [place] Mailcode: | [address] | | | | | [address] | [place], [place] | | | | | Health and Healing, | [address] | | | | | [facility] | [phone] | | | | | floor [place], [place] | | | | | | [address] | | | | | | [phone] | | | +--------+ + + + [...] Rd | | | | | | [place], [place] | | | | | | [address] | | | | | | [phone] | | | | | | | | +--------+---------+ + + + documented as of this encounter Visit Diagnoses Not on filedocumented in this encounter"
--- OUTSIDE RECORDS SUMMARY | ~2019-07-14 | XMS | Encounter Summary ---
Demographics + + + | Address | [address] | | | [place] [address] | + + + | Home Phone [...] + + + | Author | [place] [employer] [facility] | + + + | Organization | [facility] | + [...] Team Providers + +------+ + | Care Correctional Supervisor Name | Role | Phone | [...] | | 2011 | | [facility] [address] | [place], | | | | | [place] Mailcode: CH8N | DNP,LINK TRAINER MECHANIC,[place] [address] | | | | | [facility] | [address] [place], | | | | | and Healing, | [place] [address] | | | | | Building [address] | [phone] | | | | | [place], [place] | | | | | | [address] | | | | | | [phone] | | | +--------+--------+ + + + [...] Rd | | | | | | [place], [place] | | | | | | [address] | | | | | | [phone] | | | | | | | | +--------+---------+ + + + documented as of this encounter Visit Diagnoses Not on filedocumented in this encounter"
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
--- OUTSIDE RECORDS SUMMARY | ~2019-07-14 | XMS | Encounter Summary ---
Demographics + + + | Address | [address] | | | [place] [address] | + + + | Home Phone [...] + + + | Author | [place] [employer] [facility] | + + + | Organization | [facility] | + [...] Team Providers + +------+ + | Care Chrome Polisher Name | Role | Phone | + +------+ + | Jhonny Rodriguez DO | PCP | | + +------+ + Encounter Details +--------+ + + + + | Date | Type | Department | Care Team | Description | +--------+ + + + + | 12/11/ | MyChart | Neurosurgery at | Jg Dowd LPN | RE: Aday,a week? | | 2011 | Encounter | [facility] [address] | [place], [place] | | | | | [place] Mailcode: JUAN | [address] | | | | | [facility] | | | | | | and Healing, | | | | | | Building 1 | | | | | | [place], [place] | | | | | | [address] | | | | | | [phone] | | | +--------+ + + + [...] Rd | | | | | | [place], [place] | | | | | | [address] | | | | | | [phone] | | | | | | | | +--------+---------+ + + + documented as of this encounter Visit Diagnoses Not on filedocumented in this encounter"
--- OUTSIDE RECORDS SUMMARY | ~2019-07-14 | XMS | Encounter Summary ---
Demographics + + + | Address | [address] | | | [place] [address] | + + + | Home Phone [...] + + + | Author | [place] [employer] [facility] | + + + | Organization | [facility] [...] Team Providers + +------+ + | Care Restaurant Crew Member Name | Role | Phone | [...] Refill Request | | 2010 | | [facility] [address] | [place], | | | | | [place] Mailcode: CH8N | DNP,SAFETY AND HEALTH CONSULTANT,[place] [address] | | | | | [facility] | [address] [place], | | | | | and [facility], | [place] [address] | | | | | Building 1 | [phone] | | | | | [place], [place] | | | | | | [address] | | | | | | [phone] | | | +--------+--------+ + + + [...] Rd | | | | | | [place], [place] | | | | | | [address] | | | | | | [phone] | | | | | | | | +--------+---------+ + + + documented as of this encounter Visit Diagnoses Not on filedocumented in this encounter"
--- OUTSIDE RECORDS SUMMARY | ~2019-07-14 | XMS | Encounter Summary ---
Demographics + + + | Address | [address] | | | [place] [address] | + + + | Home Phone [...] + + + | Author | [place] [employer] [facility] | + + + | Organization | [facility] [...] Providers + +------+ + | Care Supply Cataloguer Name | Role | Phone | + [...] + | 04/07/ | Telephone | Cardiac Executive Kitchen Manager | Wendie Holt RN | Education procedure | | 2018 | | at [facility] [address] [facility] [address] | [address] | (Instructions for | | | | [address] | [place], | angiogram) | | | | [facility] | [place] [address] | | | | | [place], [place] | | | | | | [address] | | | | | | [phone] | | | +--------+ + + + [...] [place] | | | | | | [address] | | | | | | [phone] | | | | | | | | +--------+---------+ + + + documented as of this encounter Visit Diagnoses Not on filedocumented in this encounter"
--- OUTSIDE RECORDS SUMMARY | ~2019-07-14 | XMS | Encounter Summary ---
Demographics + + + | Address | [address] | | | [place] [address] | + + + | Home Phone [...] + + | Author | [place] [employer] [facility] | + + + | Organization | [facility] [...] Team Providers + +------+ + | Care Label Stitcher Name | Role | Phone | [...] | | | | | | | DNP,ANGLE DOZER OPERATOR,[place] | | | | | | | [address] | | | | | | | Ave | | | | | | | [place], [place] | | | | | | | [address] | | | | | | | Phone: | | | | | | | [phone] | | | | | | | Fax: | | | | | | | [phone] | +--------+--------+ + + + + Encounter Details +--------+---------+ + + + | Date | Type | Department | Care Team | Description | +--------+---------+ + + + | 04/03/ | Office | Neurosurgery at | Donnie, | Pituitary Adenoma | | 2008 | Visit | [facility] [address] | [place], | ([facility]); 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Ave Mailcode: CH8N | DNP,ANGLE DOZER OPERATOR,[place] [address] | Hormone Deficiency | | | | [facility] | [address] [place], | ([facility]); 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, | [place] [address] | Insipidus ([facility]); | | | | Building 1 | [phone] | Hypogonadism Male; | | | | [place], [place] | | Hypothyroid; Adrenal | | | | [address]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 (HCC) | | | | [phone] | | | +--------+---------+ + + + [...] of this encounter Progress Notes [place] Fields, DNP,ANGLE DOZER OPERATOR,[place] - 04/03/2009 10:29 AM PDTReason for visit. [...] is unchanged from previous visit. LABS BMP, CREAM HAULER, IGF-1, TSH, Free T4, LH, FSH, Testosterone, [...] history of adrenal insufficiency. No current symptoms. CREAM HAULER pending. No change in hydrocortisone dose is [...] is anicipate d. 2. Followup. with MRI, CREAM HAULER,RM labs. Amairani Ulloa, [id number] Reason for visit: No chief complaint on [...] in coordination of care CARRINGTON FIELDS NP [facility] BTJosef [address] [facility] [address] .le documented in this encounter Plan of Treatment +--------+---------+ + + + | Date | Type | Specialty | Care Team | Description | +--------+---------+ + + + | 08/15/ | Office | Cardiology | Zuleika Hernandez, | | | 2019 | Visit | | [address] | | | | | | [address] | | | | | | [place], [place] | | | | | | [address] | | | | | | [phone] | | | | | | | [...]
--- OUTSIDE RECORDS SUMMARY | ~2019-07-14 | XMS | Encounter Summary ---
Demographics + + + | Address | [address] | | | [place] [address] | + + + | Home Phone [...] + + | Author | [place] [employer] [facility] | + + + | Organization | [facility] | + + + | Address | Unknown | + + + | Phone | Unavailable | + + + Support + + +---------+ + | Name | Relationship | Address | Phone | + + +---------+ + | Alexandria Dixon | ECON | Unknown | | + + +---------+ + Care Team Providers + +------+ + | Care Health Care Facilities Inspector Name | Role | Phone | [...] Medicine Clinic at | Y, [address] [facility] | (Primary Dx); Mitral | | | | MPV 4th Floor Day | [facility] [address] | leaflet | | | | Stay [address] | [place], [place] | abnormality; | | | | [facility] [address] | [address] | Diabetes insipidus | | | | Mailcode: [id number] | [phone] | ([facility]); Adrenal | | | | [facility] | | insufficiency ([facility]); | | | | [address] [place], [place] | | Pituitary adenoma | | | | [address] | | ([facility]); | | | | [phone] | | Panhypopituitarism | | | | | | ([facility]); Coronary | | | | | | artery disease, | | | | | | angina presence | | | | | | unspecified, | | | | | | unspecified vessel | | | | | | or lesion type, | | | | | | unspecified whether | | | | | | salt river or | | | | | | [...] the nasal ointment the y prescribed regardless. [facility] wipe packet and instructions on proper [...] or walk. Surgery check-in location: Admitting - [facility], ninth floor lob Surgery Check in Time: [...] it is after office hours, call the [facility] keypunch operators supervisor at [phone] and ask them to page him or [...] cath was repeated pre-op--done last week at [facility] (in [place]), notable for patent LCx stent and severe [...] resected in 2005. He is followed at [facility] by Dr. Fields. He has subsequent panhypopituitarism, [...] palpitations CAD Cad Sx: cardiac stents past MD no CHF hypertension well controlled valvu lar [...] site unspecified CAD (coronary artery disease) 2010 MD, LCx stent and GAUGE INSPECTOR of RCA; cath 06/2016: moderate LAD disease, [...] chronically occluded in the midportion. There are lnjo-sc-wlvxb collaterals. IMPRESSION 1. Two-vessel coronary artery disease with moderate disease of the wmbvexri-fa-shi left anterior descending artery. 2. Patent stent in the left circumflex artery. 3. Chronically-occluded right coronary artery with nvsp-nv-kgflb Collaterals. TTE 05/2016: 1. Sinus rhythm. 2. [...] TR to estimate PAP. Coronary angiogram 11/2014: GAUGE INSPECTOR RCA Patent L Cx stent ASSESSMENT and [...] this patient's care. Stephenie Yu MD, FACP PATIENT TRANSPORT OFFICERGATE WATCH DEPARTMENT OF MEDICINE [facility]ISION [facility] MEDICINE PRE-OPERATIVE MEDICINE CHILD WATCH ATTENDANT LIFE SCIENTIST [address] [place] [address] documented in thi s encounter Plan of Treatment +--------+---------+ + + + | Date | Type | Specialty | Care Team | Description | +--------+---------+ + + + | 08/15/ | Office | Cardiology | Zuleika Hernandez, | | | 2019 | Visit | | [address] | | | | | | [address] | | | | | | [place], [place] | | | | | | [address] | | | | | | [phone] | | | | | | | | +--------+---------+ + + + + + +--------+ + + | Name | Type | Priori | Associated Diagnoses | Order Schedule | | | | ty | | | + + +--------+ + + | COMMUNICATION TO [facility] | Procedures | Routin | [...] | + +--------+ + + + | SD COLLECTION VENOUS | Routin | 07/07/2016 | [...] + + | [facility] | [address] | [place], [place] | | | CARDIOLOGY | [address] | [address] | | + + + + + [...] [facility] | [address] | [place] [address] | | | SERVICES, CORE | PARK [...] [facility] | [address] | [place] [address] | | | SERVICES, CORE | PARK [...] [facility] | [address] | [place] [address] | | | SERVICES, CORE | PARK [...] | + + + + + | [facility] | [address] | [place] [address] | | | SERVICES, | [address] [...] + + + + | [facility] | [address] | [place] [address] | | | SERVICES, | [address] [...] | + + + + + | [facility] | [address] | [place] [address] | | | SERVICES, CORE | [address] [...] | + + + + + | [facility] | [address] | [place] [address] | | | SERVICES, CORE | [address] [...] [facility] | [address] | [place] [address] | | | SERVICES, SPECIAL | PARK [...] the MDRD equation recommended by the | [facility] | | National Kidney Disease Education Program. [...] [facility] | [address] | [place] [address] | | | MASSIEL, VITALY | [address] [...] or lesion | | type, unspecified whether salt river or transplanted heart | + + documented in this encounter
--- OUTSIDE RECORDS SUMMARY | ~2019-07-14 | XMS | Encounter Summary ---
Demographics + + + | Address | [address] | | | [place] [address] | + + + | Home Phone [...] + + + | Author | [place] [employer] [facility] | + + + | Organization | [facility] | + + + | Address | Unknown | + + + | Phone | Unavailable | + + + Support + + +---------+ + | Name | Relationship | Address | Phone | + + +---------+ + | Alexandria Dixon | ECON | Unknown | | + + +---------+ + Care Team Providers + +------+ + | Care Application Manager Name | Role | Phone | [...] Request | | 2017 | | [facility] [address] | [place] | | | | | [place] Mailcode: CH8N | DNP,LOG GRADER,[place] [address] | | | | | [facility] | [address] [place], | | | | | and Healing, | [place] [address] | | | | | Building [address] | [phone] | | | | | [place], [place] | | | | | | [address] | | | | | | [phone] | | | +--------+--------+ + + + [...] Rd | | | | | | [place], [place] | | | | | | [address] | | | | | | [phone] | | | | | | | [...]
--- OUTSIDE RECORDS SUMMARY | ~2019-07-14 | XMS | Encounter Summary ---
Demographics + + + | Address | [address] | | | [place] [address] | + + + | Home Phone [...] + + + | Author | [place] [employer] [facility] | + + + | Organization | [facility] | [...] Team Providers + +------+ + | Care Charge Account Identification Clerk Name | Role | Phone | [...] Refill Request | | 2017 | | [facility] [address] | [place], | | | | | [place] Mailcode: CH8N | DNP,SAFETY DEPOSIT CLERK,[place] [address] | | | | | [facility] | [address] [place], | | | | | and Healing, | [place] [address] | | | | | Building 1 | [phone] | | | | | [place], [place] | | | | | | [address] | | | | | | [phone] | | | +--------+--------+ + + + [...] Rd | | | | | | [place], [place] | | | | | | [address] | | | | | | [phone] | | | | | | | | +--------+---------+ + + + documented as of this encounter Visit Diagnoses + + | Diagnosis | + + | Panhypopituitarism (HCC) - Primary Panhypopituitarism | + + documented in this encounter"
--- OUTSIDE RECORDS SUMMARY | ~2019-07-14 | XMS | Encounter Summary ---
Demographics + + + | Address | [address] | | | [place] [address] | + + + | Home Phone [...] + + | Author | [place] [employer] [facility] | + + + | Organization | [facility] | + + + | Address | Unknown | + + + | Phone | Unavailable | + + + Support + + +---------+ + | Name | Relationship | Address | Phone | + + +---------+ + | Alexandria Dixon | ECON | Unknown | | + + +---------+ + Care Team Providers + +------+ + | Care Enforcement Safety Officer Name | Role | Phone | [...] [address] | | | | | [facility] | [facility] | | | | | [place] [address] | [place], [place] | | | | | [address] | [address] | | | | | [place], [place] | [phone] | | | | | [address] | | | | | | [phone] | | | +--------+ + + + [...] Rd | | | | | | [place], [place] | | | | | | [address] | | | | | | [phone] | | | | | | | | +--------+---------+ + + + documented as of this encounter Visit Diagnoses Not on filedocumented in this encounter"
--- OUTSIDE RECORDS SUMMARY | ~2019-07-14 | XMS | Encounter Summary ---
Demographics + + + | Address | [address] | | | [place] [address] | + + + | Home Phone | | + + + | Preferred Language | Unknown | + + + | Marital Status | Single | + + + | Latter-Day Affiliation | Unknown | + + + | Race | Unknown | + + + | Ethnic Group | Unknown | + + + Author + + + | Author | [facility] | | | and [place] | + + + | Organization | [facility] | | | and [...] Providers + +------+ + | Care Correctional Lieutenant Name | Role | Phone | + [...] | SLEEP DISORDER [address] | [address] | Dx) | | | | [address] | [place] | | | | | [place] [address] | [address] | | | | | [phone] | | | +--------+ + + + [...] [place] | | | | | | [address] | | | | | | | | +--------+---------+ + + + documented as of this encounter Visit Diagnoses + + | Diagnosis | + + | MALLIKA on CPAP - Primary Obstructive sleep apnea (adult) (pediatric) | + + documented in this encounter"
--- OUTSIDE RECORDS SUMMARY | ~2019-07-14 | XMS | Encounter Summary ---
Demographics + + + | Address | [address] | | | [place] [address] | + + + | Home Phone | | + + + | Preferred Language | Unknown | + + + | Marital Status | Single | + + + | Shinto Affiliation | Unknown | + + + | Race | Unknown | + + + | Ethnic Group | Unknown | + + + Author + + + | Author | [facility] | | | and [place] | + + + | Organization | [facility] | | | and [place] | [...] Team Providers + +------+ + | Care Firmware Architect Name | Role | Phone | [...] | Sumanth Champion | | | | Bat Person / | Obstructive | Bren H, | D, PA [address] | | | | Sleep | sleep apnea | [address] | | | | Medicine | (adult) | [place] | [place], | | | | | (pediatric) | [place] | [place] [address] | | | | | [address] | [address] | Phone: | | | | | EQUIP | [place], | [phone] | | | | | Procedures | [place] | Fax: | | | | | [place] OFF[place] | [address] | [phone] | | | | | OUTPATIENT | Phone: | | | | | | VISIT 25 | [phone] | | | | | | MINUTES | Fax: | | | | | | OFFICE VISIT | [phone] | | | | | | EXTENDED | | | +--------+--------+ + + + + Encounter Details +--------+---------+ + + + | Date | Type | Department | Care Team | Description | +--------+---------+ + + + | 07/19/ | Office | [facility] | Sumanth Champion PA | MALLIKA on CPAP (Primary | | 2018 | Visit | SLEEP DISORDER [address] | [address] | Dx) | | | | [address] [place] | [place] | | | | | [place] [address] | [address] | | | | | [phone] | | | +--------+---------+ + + + [...] + + + | Blood Pressure | 126/80 | 07/19/2018 12:54 PM | | | | | PST | | + + + + + | Pulse | 61 | 07/19/2018 12:54 PM | | | | | PST | | + + + + + | Temperature | - | - | | + + + + + | Respiratory Rate | 16 | 07/19/2018 12:54 PM | | | | | PST | | + + + + + | Oxygen Saturation | 98% | 07/19/2018 12:54 PM | | | | | PST | | + + + + + | Inhaled Oxygen | - | - | | | Concentration | | | | + + + + + | Weight | 125.8 kg (277 lb 7.2 | 07/19/2018 12:54 PM | | | | oz) | PST | | + + + + + | Height | - | - | | + + + + + | Body Mass Index | 42.19 | 06/09/2018 11:00 AM | | | | | PDT | | + + + + + documented in this encounter Progress Notes Sumanth Champion PA - 07/19/2018 1:00 PM PST Subjective: Patient ID: Amairani Ulloa is a 38 y.o. male. HPI last office visit: 01/15/2016 date of polysomnography: 12/10/2006 AHI: 38.9 O2%: 75% with 19.7 minutes below 88% Machine type: ResMed S9 Mask type: nasal mask DME: [facility] [place] pressure: 12-18 cm Median: 12.5 cm 95%: 13.7 cm maximum: 14.5 cm Nights using CPAP: 229/369 145/181 137/188 122/182 204/365 126/187 % of nights >4 hours: 28% 59% 55% 45% 27% 31% average usage (all nights): 2:29 3:55 3:40 3:13 2:16 2:46 average usage (nights used): 4:00 4:54 5:03 4:49 4:04 4:08 AHI: 0.4 Shai comes in for CPAP compliance. He has a history of struggling with wearing his CPAP co nsistently and with wearing it for the duration of his sleep. This has continued. He did w ell with CPAP when he began, but he has struggled since. He continually has a variety of re asons for why he hasn't used his CPAP. He understands that he doesn't sleep well without hi s CPAP and the health risks involved with not treating his apnea, but he continues to avoid wearing it. We again discussed the importance of wearing his CPAP 100% of the time he is as leep in order to develop it into a regular part of his sleep routine. He has a history of t wo AMI's and has diabetes. This motivates him to treat his apnea, but he does not follow th rough with his intentions. He feels that he might do better with his CPAP usage if he replaced his machine. He feels that it is not working properly. It is making more noise and he seems to have problems with it at different times. I explained the usage requirement of using his CPAP >4 hours for 70 % of the nights during at least a 30 day period within the first 90 days in order for his in surance to cover his new CPAP. He thinks he will be able to do this with a machine that is working properly. He has had problems with getting supplies from [facility] on and would like to change his DME to [facility] [place]. I have discussed the download in detail. This shows that his sleep apnea is controlled, wi th an AHI of 0.4. It also shows that his leaks are controlled. He has nasal septum surgery on 04/08/2016. This has helped him to be able to breathe throug h his nose much more easily, which has made it easier for him to use his CPAP. BP 126/80 | Pulse 61 | Resp 16 | Wt 125.8 kg (277 lb 7.2 oz) | SpO2 98% | BMI 42.19 kg /m Review of Systems Objective: Physical Exam Assessment: Problem #1: OBSTRUCTIVE SLEEP APNEA ([id number]) This is controlled with CPAP. He continues to struggle with wearing his CPAP consistently and with wearing it for the duration of the night. He says his machine is not working prope rly and he would like to have it replaced. Plan: 1. He is to continue with CPAP indefinitely. 2. I have recommended that he continue to work toward wearing his CPAP 100% of the time he is asleep. 3. We have faxed a prescription to [facility] in [place] for a ResMed AirSense 10 with a pr essure range of 12-18 cm. I will follow up again in 2 months, sooner prn. Twenty-five minutes were spent face-to-fac e, with the majority of time spent in counseling. Sumanth Champion PA-C Cc: Bren Arango PA-C documented in this enco unter Plan of Treatment +--------+---------+ + + + | Date | Type | Specialty | Care Team | Description | +--------+---------+ + + + | 11/21/ | Office | Sleep Medicine | Sumanth Champion PA | | | 2019 | Visit | | [address] | | | | | | [place] | | | | | | [id number] | | | | | | | | +--------+---------+ + + + documented as of this encounter Visit Diagnoses + + | Diagnosis | + + | MALLIKA on CPAP - Primary Obstructive sleep apnea (adult) (pediatric) | + + documented in this encounter"
--- OUTSIDE RECORDS SUMMARY | ~2019-07-14 | XMS | Encounter Summary ---
Demographics + + + | Address | [address] | | | [place] [address] | + + + | Home Phone [...] Author | [facility] | | | and [place] | + + + | Organization | [facility] | | | and [place] [...] Team Providers + +------+ + | Care Tagman Name | Role | Phone | + [...] | +--------+ + + + + | 06/15/ | Telephone | JIGNESH SRINIVASAN | Jimmy Lara, | Lab Results | | 2018 | | [facility] | MD [address] | | | | | [facility] [address] [place], | | | | | [place] | [place] [address] | | | | | [place] [address] | [phone] | | | | | [phone] | | | +--------+ + + + [...] [place] | | | | | | [address] | | | | | | | | +--------+---------+ + + + documented as of this encounter Visit Diagnoses Not on filedocumented in this encounter"
--- OUTSIDE RECORDS SUMMARY | ~2019-07-14 | XMS | Encounter Summary ---
Demographics + + + | Address | [address] | | | [place] [address] | + + + | Home Phone [...] + + + | Author | [employer] [facility] | + + + | Organization | [facility] [...] Team Providers + +------+ + | Care Flap Presser Name | Role | Phone | + [...] | | Rosalva Mailcode: CH8N | DNP,AUTOMOTIVE DESIGN DRAFTER,[place] [address] | | | | | [facility] | [address] [place], | | | | | and Healing, | [place] [address] | | | | | Building [address] | [phone] | | | | | [place], [place] | | | | | | [address] | | | | | | [phone] | | | +--------+--------+ + + + [...] | | | | | | [place], [place] | | | | | | [address] | | | | | | [phone] | | | | | | | | +--------+---------+ + + + documented as of this encounter Visit Diagnoses + + | Diagnosis | + + | Panhypopituitarism (HCC) Panhypopituitarism | + + documented in this encounter"
--- OUTSIDE RECORDS SUMMARY | ~2019-07-14 | XMS | Encounter Summary ---
Demographics + + + | Address | [address] | | | [place] [address] | + + + | Home Phone [...] + + | Author | [place] [facility] | + + + | Organization | [facility] | + [...] Team Providers + +------+ + | Care Tumblers Supervisor Name | Role | Phone | + +------+ + | Priscilla Ramírez PA-C | PCP | | + +------+ + Encounter Details +--------+ + + + + | Date | Type | Department | Care Team | Description | +--------+ + + + + | 06/30/ | MyChart | Neurosurgery at | Donnie, | RE:Follow up | | 2019 | Encounter | [facility] [address] | Cathie, | appointment | | | | Ave Mailcode: CH8N | DNP,GEOGRAPHY PROFESSOR,[place] [address] | | | | | [facility] | [address] [place], | | | | | and [place], | [place] [address] | | | | | Building [address] | [phone] | | | | | [place], [place] | | | | | | [address] | | | | | | [phone] | | | +--------+ + + + [...] Rd | | | | | | [place], [place] | | | | | | [address] | | | | | | [phone] | | | | | | | | +--------+---------+ + + + documented as of this encounter Visit Diagnoses Not on filedocumented in this encounter"
--- OUTSIDE RECORDS SUMMARY | ~2019-07-14 | XMS | Clinical Summary ---
Demographics + + + | Address | [address] | | | [place] [address] | + + + | Home Phone [...] Providers + +------+ + | Care Home Health Care Physician Name | Role | Phone | + +------+ + | Priscilla Ramírez PA-C | PCP | | + +------+ + Source Comments MIRTHA is fully live on both [facility] and [facility] Allergies + + + + + + [...] | | | | | | | ([facility]), | | | | | | | [...] | | | | insufficiency ([facility]) | | | | | | [...] + +---+ | Coronary artery disease of [place] artery of [place] heart with | | | stable angina pectoris | | + +---+ + + | Overview: 2011 [place], LCx stent and EMBOSSED OR IMPRESSED LETTERING PAINTER of RCA; cath 06/2016: | | moderate LAD disease, patent LCx stent, chronic occlusion RCA | | Last Assessment & Plan: He has premature CAD. Last C 04/2017 | | in the setting of NSTEMI demonstrated EMBOSSED OR IMPRESSED LETTERING PAINTER RCA with collateral | | flow from [...] | | control as per PCP and dry cleaning machine operator helper-- BP well controlled today | + + [...] | appointment | | | | | DNP,SUBSTATION TECHNICIAN,[place] | | +--------+ + + + + [...] Cathie, | | | | | | DNP,SUBSTATION TECHNICIAN,[place] | | +--------+ + + + + [...] | 2020 | Visit | | [address] [facility] | | | | | | [address] | | | | | | [place], [place] | | | | | | [address] | | | | | | [phone] | | | | | | | [...] | | | + +--------+ +--------+-------+---------+--------+ | LIBRARY CIRCULATION CLERK MEDICAID | LIBRARY CIRCULATION CLERK | xxxxxxxx | | | | Medica | | | EASTER | | 018-Pr | | | id | | | [place] | | esent | | | | + +--------+ +--------+-------+---------+--------+ | [facility] | xxxx | | | | Agency [...] Person | Self | [birth year] | | [address] | | | al/Fam | | 1979 | [phone] | [place], [place] | | | luli | | | 4 (Home) | [address] | + +--------+ +--------+ + + | Amairani Tyler | Agency | Self | [birth year] | | [address] | | | | | 1979 | [phone] | [place], [place] | | | | | | 4 (Home) | [address] | + +--------+ +--------+ + + Advance Directives + + + + + | Type | Date Recorded | Patient | Explanation | | | | Associate Automation Engineer | | + + + + + | Advance | | | | | Directives and | | | | | Living Will | | | | + + + + + | Power of | | | | | Shirt Operator | | | | + + + [...]
--- OUTSIDE RECORDS SUMMARY | ~2019-07-14 | XMS | Encounter Summary ---
Demographics + + + | Address | [address] | | | [place] [address] | + + + | Home Phone [...] + + | Author | [place] [facility] [facility] [...] Team Providers + +------+ + | Care Tailings Man Name | Role | Phone | [...] Closed | | Otolaryngolog | Diagnoses | Rajinder | Ent Sinus | | | | y | Sinus pain | MD Lynda | Ch[facility] [address] | | | | | Procedures | [address] | | | | | CONSULT TO | Ave | Mailcode: | | | | | ENT / | [place], [place] | [address] | | | | | OTOLARYNGOLO | [address] | for Health | | | | | GY | | and Healing, | | | | | | | Building 1, | | | | | | | 5th Floor | | | | | | | [place], [place] | | | | | | | [address] | | | | | | | Phone: | | | | | | | [phone] | | | | | | | Fax: | | | | | | | [phone] | +--------+--------+ + + + + Reason [...] | | | | | adenoma | DNP,ETHYLENE OXIDE PANELBOARD OPERATOR,[place] | [address] | | | | | (HCC) | [address] | Ave | | | | | Growth | Ave | [place], [place] | | | | | hormone | [place], [place] | [address] | | | | | deficiency | [address] | | | | | | (HCC) | Phone: | | | | | | 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 | Fax: | | | | | | (HCC) | [phone] | | | | | | Hypogonadism [...] Description | +--------+---------+ + + + | 11/13/ | Office | Neurology at | Lynda Calvillo, | Sinus pain (Primary | | 2008 | Visit | [facility] & | | [place]) | | | | Healing [address] | | | | | | [address] Mailcode: | | | | | | [facility] | | | | | | Health and Healing, | | | | | | Building 1, | | | | | | Floor [place], [place] | | | | | | [address] | | | | | | [phone] | | | +--------+---------+ + + + [...] + + + | Blood Pressure | 106/61 | 06/22/2009 9:46 AM | | | | | PST | | + + + + + | Pulse | 81 | 06/22/2009 9:46 AM | | | | | PST | | + + + + + | Temperature | - | - | | + + + + + | Respiratory Rate | 18 | 06/22/2009 9:46 AM | | | | | PST | | + + + + + | Oxygen Saturation | - | - | | + + + + + | Inhaled Oxygen | - | - | | | Concentration | | | | + + + + + | Weight | 131.1 kg (289 lb) | 06/22/2009 9:46 AM | | | | | PST | | + + + + + | Height | 172.7 cm (5' 8") | 06/22/2009 9:46 AM | | | | | PST | | + + + + + | Body Mass Index | 43.94 | 06/22/2009 9:46 AM | | | | | PST | | + + + + + documented in this encounter Patient Instructions Patient Instructions Lynda Calvillo MD - 06/22/2009 10:57 AM PSTTry the nasal steroid sp ray- 2 sprays in each nostril once a day. If pain persists after 2-4 weeks, try Nortriptyline as directed. Referral made to [facility] E[facility] clinic- please schedule. Follow up with me in 3 months. 10 :57 AM PST documented in this encounter Progress Notes Lynda Calvillo MD - 06/22/2009 11:04 AM PSTFormatting of this note might be different fr om the original. Clinic Date: 06/22/2009 Clinic: General Neurology Clinic: Farooq Connolly is a 29 year old male referred here by Dr. Artur parkinson for headaches. About 4 years ago, he had the abrupt onset of headaches. The pain was in bilateral maxilla ry regions every day. His PCP initially treated him for sinusitis but that didn't help. Th ree weeks later, he woke up with severe pain, nausea, vomiting and photophobia. He went to the ER and imaging showed a pituitary tumor. He had no insurance at that time, but had the tumor removed 2 months later (Sep 15) here.Since having it removed, he continues to have jose alfredo n in the same region of the face (between the eyes, and in the maxillary region). Prior to surgery, pain was 10/10. Now it varies from 3 to 7/ 10. He describes the pain as pressure and constant throbbing. It is worse with coughing and better with sleep. He denies nasal c ongestion. On review of systems, he also notes numbness in both palms and both ulnar forearms, joint p ain (diagnosed with RA), fatigue, sleep apnea (On CPAP, multiple awakenings). All other sys tems negative except as noted. 14 point review of systems form completed by patient and re viewed by myself during appointment. See patient form scanned into EMR. 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 desmopressin (DDAVP) 0.2 mg Oral Tablet Take 1 Tab by mouth. 1 and a half tablet (0.3mg ) by oral route q am and take 2 tablets in pm ergocalciferol (VITAMIN D) 50,000 unit Oral Capsule Take 1 Cap by mouth every seven day s. hydrocortisone 20 mg Oral Tablet One tab 8am and one tab 2pm daily levothyroxine (SYNTHROID) 175 mcg Oral Tablet Take 1 Tab by mouth once daily. somatropin (GENOTROPIN) 0.4 mg/0.25 mL Subcutaneous Syringe Inject 0.4 mg under the ski n (SUBC) once daily. Testosterone (ANDROGEL) 1 % (50 mg) TD GlPk once daily Allergies: Review of patient's allergies indicates no known allergies. 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 He is no apparent physical stress. He has no spe ech or language problems. Cardiac: Regular rate and rhythm. Lungs: Clear. Skin: Normal. Neurologic: Cranial Nerve 2: Pupils are equally reactive to light. Visual godinez are intact . Cranial nerves 3, 4, and 6: Extraocular muscles are normal. Cranial nerve 5: Sensation is intact to V1 through V3. Cranial nerve 7: Face is symmetric. Cranial nerve 10: Normal palate movement. Cranial nerve 12: Normal tongue movement. On motor examination,he has 5/5 strength bilaterally in the deltoid, interossei, iliopsoas , and dorsiflexion. Reflexes are 1+ symmetrically throughout. Toes are downgoing. Sensory exam is decreased to light touch and pinprick in both medial forearms, but normal i n all fingers. Normal vibration in the toes and fingers. Cerebellar testing shows normal [id number] and finger tapping. On gait testing, he has a normal casual gait. He is able to walk on his heels and toes in t andem. He has a negative Romberg. No pronator drift. Ancillary Studies: Lab Results Lab Test Name Results Date/Time TSH 0.26 04/03/09 MR BRAIN WWO CONTRAST (no units) Date Value 04/03/09 Med Rec No: [id number] Name: FAROOQ LEMA Birthday: 1980 Sex: M Alias: Patient [facility] Status: Outpatient Active Ordering Physician: Desi YU, N.PRobin MBR-+ MRI BRAIN W/WO CONTRAST completed on 04/03/2009 8:55 AM [id number] RESULT: MR OF THE PITUITARY: 04/03/2009 Dictated 04/03/2009 CLINICAL INFORMATION: One year after medical treatment. Sagittal, axial, and coronal images were obtained throug h the head with attention to the sella, and sagittal and coronal images were obtained after intravenous gadolinium and compared to the MR of 03/10/2008. Comparison to the prior study i s limited by the absence of coronal T2-weighted images on the prior study. For this sequenc e, the MR of 12/08/2006 is used. The sphenoid sinus is lined by enhancing tissue which exten ds through a defect in the sphenoid bone and the floor of the sella as on the prior studies. The infundibulum is midline. Enhancing tissue in the sella is less bulky than on the prio r study. In the right inferior aspect of the gland, there is a focus of slightly delayed en hancement which does enhance homogeneously and is unchanged from the prior study. It is sub tle. IMPRESSION: IMPRESSION: Slight interval decrease in the overall size of the contents of the sella. Status post transsphenoidal approach to the sella with ongoing mucosal inflamma tion in the sphenoid sinus. Faint subtle delayed enhancement in the inferior aspect of the right side of gland, unchanged. END IMPRESSION: END IMPRESSION I have personally viewed this procedure/exam and reviewed this report. Author: Error! AutoText entry not defined. ROSALIA Olsen M.D. Reviewer: , STATUS FINAL / Dr. CONCETTA GROVE STATUS PRELIMINARY - UNSIGNED / Yulissa Torres Impression: Farooq Redman is a 29 y.o. male with a 4 year history of sinus pain and a history of transsphenoidal pituitary resection. The patient was seen by ENT in May 15 and nasal e ndoscope was normal at that time. However, his MRI shows persistent inflammation of the sph enoid sinus. He never had a follow up appointment made with ENT. The pain is not typical for migraine or other headache disorder, and is more consistently w ith sinus inflammation. Plan: The patient was referred back to ENT for evaluation and treatment. I gave him a prescription for nasal steroids to try in the meantime. If the nasal steroids don't help, he can try Nortriptyline (prescription sent). This may a lso help with his sleep and other body pains from RA. He will follow up with me in 3 months. documented in this e ncounter Plan of [...] | | | | | | [place], [place] | | | | | | [address] | | | | | | [phone] | | | | | | | | +--------+---------+ + + + documented as of this encounter Visit Diagnoses + + | Diagnosis | + + | Sinus pain - Primary Other diseases of nasal cavity and sinuses | + + documented in this encounter
--- OUTSIDE RECORDS SUMMARY | ~2019-07-14 | XMS | Encounter Summary ---
Demographics + + + | Address | [address] | | | [place] [address] | + + + | Home Phone [...] + + + | Author | [place] [employer] [facility] | + + + | Organization | [facility] | [...] Team Providers + +------+ + | Care Primary Care Md Name | Role | Phone | + +------+ + | Priscilla Ramírez PA-C | PCP | | + +------+ + Encounter Details +--------+ + + + + | Date | Type | Department | Care Team | Description | +--------+ + + + + | 08/21/ | Ancillary | Registration [id number] | [address], | | | 2005 | Registratio | [address] | [address] | | | | n | Abdoulaye Mailcode: [id number] | [place], [place] | | | | | [place], [place] | [address] | | | | | [address] | | | | | | [phone] | | | +--------+ + + + [...] | | 2019 | Visit | | [address] | | | | | | [address] | | | | | | [place] | | | | | | [address] | | | | | | [phone] | | | | | | | | +--------+---------+ + + + documented as of this encounter Visit Diagnoses Not on filedocumented in this encounter"
--- OUTSIDE RECORDS SUMMARY | ~2019-07-14 | XMS | Encounter Summary ---
Demographics + + + | Address | [address] | | | [place] [address] | + + + | Home Phone [...] + + + | Author | [place] [employer] [facility] | + + + | Organization | [facility] | + [...] Team Providers + +------+ + | Care Real Estate Sales Supervisor Name | Role | Phone | [...] Description | +--------+--------+ + + + | 10/15/ | Refill | Neurosurgery at | Donnie, | Refill Request | | 2017 | | [facility] [address] | Cathie, | | | | | [place] Mailcode: CH8N | DNP,RAILROAD AUDITOR,[place] [address] | | | | | [facility] | [address] [place], | | | | | and Healing, | [place] [address] | | | | | Building [address] | [phone] | | | | | [place], [place] | | | | | | [address] | | | | | | [phone] | | | +--------+--------+ + + + [...] Rd | | | | | | [place], [place] | | | | | | [address] | | | | | | [phone] | | | | | | | [...]
--- OUTSIDE RECORDS SUMMARY | ~2019-07-14 | XMS | Encounter Summary ---
Demographics + + + | Address | [address] | | | [place] [address] | + + + | Home Phone [...] + + + | Author | [place] [employer] [facility] | + + + | Organization | [facility] [...] Providers + +------+ + | Care Truck Driver Salesperson Name | Role | Phone | + [...] Refill Request | | 2010 | | [facility] [address] | [place], | | | | | [place] Mailcode: CH8N | DNP,PAPER TWISTER,[place] [address] | | | | | [facility] | Nura Blackwell [place], | | | | | and [facility], | [place] [address] | | | | | Building 1 | [phone] | | | | | [place], [place] | | | | | | [address] | | | | | | [phone] | | | +--------+--------+ + + + [...] | | 2019 | Visit | | [address] | | | | | | [address] | | | | | | [place], [place] | | | | | | [address] | | | | | | [phone] | | | | | | | | +--------+---------+ + + + documented as of this encounter Visit Diagnoses Not on filedocumented in this encounter"
--- OUTSIDE RECORDS SUMMARY | ~2019-07-14 | XMS | Encounter Summary ---
Demographics + + + | Address | [address] | | | [place] [address] | + + + | Home Phone [...] + + + | Author | [place] [employer] [facility] | + + + | Organization | [facility] | [...] Team Providers + +------+ + | Care Family Law Paralegal Name | Role | Phone | + +------+ + | No Pcp Per Patient | PCP | Unavailable | + +------+ + Encounter Details +--------+ + + + + | Date | Type | Department | Care Team | Description | +--------+ + + + + | 02/20/ | Telephone | Neurosurgery at | Jaclyn Crawford, | | | 2010 | | [facility] [address] | [address] | | | | | [place] Mailcode: CH8N | [address] | | | | | [facility] | [place], [place] | | | | | and Healing, | [address] | | | | | [facility] 1 | [phone] | | | | | [place], [place] | | | | | | [address] | | | | | | [phone] | | | +--------+ + + + [...] Rd | | | | | | [place], [place] | | | | | | [address] | | | | | | [phone] | | | | | | | | +--------+---------+ + + + documented as of this encounter Visit Diagnoses Not on filedocumented in this encounter"
--- OUTSIDE RECORDS SUMMARY | ~2019-07-14 | XMS | Encounter Summary ---
Demographics + + + | Address | [address] | | | [place] [address] | + + + | Home Phone [...] + + + | Author | [employer] [facility] | + + + | Organization | [facility] | + + + | Address | Unknown | + + + | Phone | Unavailable | + + + Support + + +---------+ + | Name | Relationship | Address | Phone | + + +---------+ + | Alexandria Dixon | ECON | Unknown | | + + +---------+ + Care Team Providers + +------+ + | Care Rn Pediatric Icu Name | Role | Phone | + +------+ + | No Pcp Per Patient | PCP | Unavailable | + +------+ + Encounter Details +--------+------+ + + + | Date | Type | Department | Care Team | Description | +--------+------+ + + + | 08/15/ | Lab | Laboratory at [facility] | | Pituitary adenoma | | 2011 | | [address] | | ([facility]); 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[place], [place]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 | | | | [address] | | ([facility]); Diabetes | | | | [phone] | | insipidus ([facility]); | | | | | | [...] | | 2019 | Visit | | [address] | | | | | | [address] | | | | | | [place], [place] | | | | | | [address] | | | | | | [phone] | | | | | | | [...] | + + + + + | [facility] DEPARTMENT OF | [address] | [place] [address] | | | PATHOLOGY | [address] [...] | [place] | | [place] [place] [address] | REGIONAL | | [place] [address] | LABORATORY | + + + + + + + + | Performing | Address | City/State/Zipcode | Phone Number | | Organization | | | | + + + + + | [facility] | [address] | [place] [address] | | | LABORATORY | | | [...] [place] | [place] | | [place] [address] | REGIONAL | | [place] [address] | LABORATORY | + + + + + + + + | Performing | Address | City/State/Zipcode | Phone Number | | Organization | | | | + + + + + | [facility] | [address] | [place] [address] | | | LABORATORY | | | [...] + + + | [facility] [place] | [place] | | [place] [address] | REGIONAL | | [place] [address] | LABORATORY | + + + + + + + + | Performing | Address | City/State/Zipcode | Phone Number | | Organization | | | | + + + + + | [facility] | [address] | [place] [address] | | | LABORATORY | | | [...] [place] | [place] | | [place] [address] | REGIONAL | | [place] [address] | LABORATORY | + + + + + + + + | Performing | Address | City/State/Zipcode | Phone Number | | Organization | | | | + + + + + | [facility] | [address] | [place] [address] | | | LABORATORY | | | [...] At | + + + | [facility] [place] | [place] | | [place] [address] | REGIONAL | | [place] [address] | LABORATORY | + + + + + + + + | Performing | Address | City/State/Zipcode | Phone Number | | Organization | | | | + + + + + | [facility] | [address] | [place] [address] | | | LABORATORY | | | [...] | | | DEPARTMENT | | | [facility] | | | OF | | | [...] | + + + + + | [facility] | [address] | [place] [address] | | | PATHOLOGY | [address] [...]
--- OUTSIDE RECORDS SUMMARY | ~2019-07-14 | XMS | Encounter Summary ---
Demographics + + + | Address | [address] | | | [place] [address] | + + + | Home Phone [...] + + + | Author | [place] [employer] [facility] | + + + | Organization | [facility] [...] Team Providers + +------+ + | Care In Home Tutor Name | Role | Phone | + +------+ + | Jinny Bergeron MD | PCP | | + +------+ + Encounter Details +--------+ + + + + | Date | Type | Department | Care Team | Description | +--------+ + + + + | 05/22/ | MyChart | Neurosurgery at | [place], | Feeling ill | | 2015 | Encounter | [facility] [address] | [place] | | | | | [place] Mailcode: CH8N | DNP,PSS DELIVERY PROFESSIONAL,[place] [address] | | | | | [facility] | Nura Loya, | | | | | jannette [place], | [place] [address] | | | | | [place] [address] | [phone] | | | | | [place], [place] | | | | | | [address] | | | | | | [phone] | | | +--------+ + + + [...] Rd | | | | | | [place], [place] | | | | | | [address] | | | | | | [phone] | | | | | | | | +--------+---------+ + + + documented as of this encounter Visit Diagnoses Not on filedocumented in this encounter"
--- OUTSIDE RECORDS SUMMARY | ~2019-07-14 | XMS | Encounter Summary ---
Demographics + + + | Address | [address] | | | [place] [address] | + + + | Home Phone | | + + + | Preferred Language | Unknown | + + + | Marital Status | Single | + + + | Mosque Affiliation | Unknown | + + + | Race | Unknown | + + + | Ethnic Group | Unknown | + + + Author + + + | Author | [facility] | | | and [place] | + + + | Organization | [facility] [...] | | + + +---------+ + | Radah Schmitt | ECON | Unknown | | + + +---------+ + Care Team Providers + +------+ + | Care Watch Adjuster Name | Role | Phone | + +------+ + | Jinny Bergeron MD | PCP | | + +------+ + Encounter Details +--------+ + + + + | Date | Type | Department | Care Team | Description | +--------+ + + + + | 11/30/ | Hospital | [facility] | Conversion | | | 2015 - | Encounter | [facility] | Transaction, | | | | | CLINICAL DECISION | Provider Unknown | | | 12/01/ | | [address] | [phone] | | | 2015 | | [place], [place] | | | | | | [address] | Juan Johnson | | | | | [phone] | MD Dana Weeks | | | | | | [address] | | | | | | [place] [address] | | | | | | [phone] | | | | | | | [...] Puckett PA-C Service: Cardiology Author Type: Physician Mud Cleaner Operator - Certified Filed: 12/06/14 0952 Date of Service: 12/01/14 0938 Status: Attested Hairpiece Stylist: Sofia Puckett PA-C (Physician Mud Cleaner Operator - Certified) Related Notes: Original Note by Sofia Puckett PA-C (Physician Mud Cleaner Operator - Certified ) filed at 12/01/14 1240 Cosigner: Abiodun Zaragoza MD at 12/06/14 1512 Attestation signed by Abiodun Zaragoza MD at 12/06/14 8639 I saw and examined the patient with Sofia Puckett PA-C. I have reviewed the tests per formed. I agree with the assessment and plan as documented in the note. Abiodun Zaragoza MD 12/06/2014 [facility] Service: Cardiology Discharge Summary Date of Admission: 11/30/2014 Date of Discharge: 12/01/2014 Discharge Physician: Abiodun Zaragoza MD DISCHARGE DIAGNOSIS: Coronary artery disease. PROCEDURES: Left heart catheterization for abnormal nuclear stress test which found 2 vessel disease wi th DUMP WORKER of the right coronary artery, patent stent to the mid left circumflex artery, unsucce ssful attempt of the DUMP WORKER PCI. HOSPITAL COURSE: No events overnight. Patient [...] 2. History of pituitary tumor followed by [facility]. 3. Hyperlipidemia. 4. Hypertension. 5. Referred for [...] are the prescriptions that you need to lease picker. You may get the following medications from [...] 1007 Date of Service: 12/01/141006 Status: Signed Hairpiece Stylist: Jeanne Murdock RN (Registered Nurse) Discharge summary [...] 0645 Date of Service: 12/01/1445 Status: Signed Hairpiece Stylist: Cristela Mccarthy RN (Registered Nurse) Going to give report to day nurse, who will assume care. onver jael Transaction, Provider Unknown - 12/01/2014 6:20 AM PDT Nurse Progress Note by Cristela Mccarthy RN at 12/01/14 0620 Author: Cristela Mccarthy RN Service: (none) Author Type: Registered Nurse Filed: 12/01/14 0627 Date of Service: 12/01/14619 Status: Signed Hairpiece Stylist: Cristela Mccarthy RN (Registered Nurse) Pt ambulates in the reyes with RN and ambulates well. onver jael Transaction, Provider Unknown - 12/01/2014 12:51 AM PDT Nurse Progress Note by Cristela Mccarthy RN at 12/01/1450 Author: Cristela Mccarthy RN Service: (none) Author Type: Registered Nurse Filed: 12/01/1451 Date of Service: 12/01/1450 Status: Signed Hairpiece Stylist: Cristela Mccarthy RN (Registered Nurse) Pt refusing pain pill at this time onver jael Transaction, Provider Unknown - 11/30/2014 10:13 PM PDT Nurse Progress Note by Cristela Mccarthy RN at 11/30/142212 Author: Cristela Mccarthy RN Service: (none) Author Type: Registered Nurse Filed: 11/30/142212 Date of Service: 11/30/142212 Status: Signed Hairpiece Stylist: Cristela Mccarthy RN (Registered Nurse) Pt tolerated clear liquid tray well. onver jael Transaction, Provider Unknown - 11/30/2014 8:33 PM PDT Progress Notes by Melida Schmitt RPH at 11/30/142032 Author: Melida Schmitt RPH Service: (none) Author Type: Pharmacist Filed: 11/30/142032 Date of Service: 11/30/142032 Status: Signed Hairpiece Stylist: Melida Schmitt RPH (Pharmacist) Renal Dosing Monitoring: [...] (none) Author Type: Registered Nurse Filed: 11/30/14 1506 Date of Service: 11/30/141499 Status: Signed Hairpiece Stylist: Mert Jack RN (Registered Nurse) Called Dr. [...] | | | Fingerstick | performed at [facility];[address] | | LAB | | | | [address];[place], [place] | | | | | | [address] | | | | + + + [...] | | | Clotting | performed at [facility];[address] | seconds | LAB | | | time, POC | [address];[place] | | | | | | [address] | | | | + + + [...] | | | Clotting | performed at [facility];[address] | seconds | LAB | | | time, POC | [address];[place] | | | | | | [address] | | | | + + + [...] | | | Clotting | performed at [facility];[address] | seconds | LAB | | | time, POC | [address];[place], [place] | | | | | | [address] | | | | + + + [...] | | | Clotting | performed at [facility];[address] | seconds | LAB | | | time, POC | [address];[place] | | | | | | [address] | | | | + + + [...] | | | Clotting | performed at [facility];[address] | seconds | LAB | | | time, POC | [address];[place], [place] | | | | | | [address] | | | | + + + [...] EXTERNAL | | | | performed at [facility];[address] | K/uL | LAB | | | | [address];[place] | | | | | | [address] | | | | + + + + + + | RED CELL | 5.76 (H)Comment: Testing | 4.20 - 5.70 | EXTERNAL | | | COUNT | performed at [facility];[address] | M/uL | LAB | | | | [address];[place] | | | | | | [address] | | | | + + + + + + | Hgb | 17.2 (H)Comment: Testing | 13.2 - 17.0 | EXTERNAL | | | | performed at [facility];888 | g/dL | LAB | | | | [address];[place] | | | | | | [address] | | | | + + + + + + | Hematocrit, | 50.1 (H)Comment: Testing | 39.0 - 50.0 % | EXTERNAL | | | POC | performed at [facility];[address] | | LAB | | | | [address];[place] | | | | | | [address] | | | | + + + + + + | MCV | 87.0Comment: Testing | 80.0 - 100.0 fl | EXTERNAL | | | | performed at [facility];[address] | | LAB | | | | [address];[place] | | | | | | [address] | | | | + + + + + + | MCH | 30.0Comment: Testing | 27.0 - 34.0 pg | EXTERNAL | | | | performed at [facility];[address] | | LAB | | | | [address];[place] | | | | | | [address] | | | | + + + + + + | MCHC | 34.5Comment: Testing | 32.0 - 35.5 | EXTERNAL | | | | performed at [facility];[address] | g/dL | LAB | | | | [address];[place] | | | | | | [address] | | | | + + + + + + | RDW-CV | 39.8Comment: Testing | 37 - 53 fl | EXTERNAL | | | | performed at [facility];[address] | | LAB | | | | [address];[place] | | | | | | [address] | | | | + + + + + + | Platelet | 354Comment: Testing | 150 - 400 K/uL | EXTERNAL | | | Count | performed at [facility];[address] | | LAB | | | Plasma | [address];[place] | | | | | | [address] | | | | + + + + + + | MPV | 7.3Comment: Testing | fl | EXTERNAL | | | | performed at [facility];[address] | | LAB | | | | [address];[place] | | | | | | [address] | | | | + + + + + + | Differentia | AUTOMATEDComment: | | EXTERNAL | | | l Type | Testing performed at | | LAB | | | | [facility];[address] | | [address];[place] [address] | | | | + + + + + + | % Segmented | 60.80Comment: Testing | % | EXTERNAL | | | | performed at [facility];[address] | | LAB | | | Neutrophils | [address];[place] | | | | | | [address] | | | | + + + + + + | % | 28.55Comment: Testing | % | EXTERNAL | | | Lymphocytes | performed at [facility];[address] | | LAB | | | | [address];[place] | | | | | | [address] | | | | + + + + + + | % Monocytes | 8.09Comment: Testing | % | EXTERNAL | | | | performed at [facility];[address] | | LAB | | | | [address];[place] | | | | | | [address] | | | | + + + + + + | % | 1.59Comment: Testing | % | EXTERNAL | | | Eosinophils | performed at [facility];[address] | | LAB | | | | [address];[place] | | | | | | [address] | | | | + + + + + + | % Basophils | 0.97Comment: Testing | % | EXTERNAL | | | | performed at [facility];[address] | | LAB | | | | [address];[place] | | | | | | [address] | | | | + + + + + + | Absolute | 6.56Comment: Testing | 1.90 - 7.40 | EXTERNAL | | | Segmented | performed at [facility];[address] | K/uL | LAB | | | Neutrophils | [address];[place] | | | | | | [address] | | | | + + + + + + | Absolute | 3.08Comment: Testing | 1.00 - 3.90 | EXTERNAL | | | Lymphocytes | performed at [facility];[address] | K/uL | LAB | | | | [address];[place] | | | | | | [address] | | | | + + + + + + | Absolute | 0.87 (H)Comment: Testing | 0.00 - 0.80 | EXTERNAL | | | Monocytes | performed at [facility];[address] | K/uL | LAB | | | | [address];[place] | | | | | | [address] | | | | + + + + + + | Absolute | 0.17Comment: Testing | 0.00 - 0.50 | EXTERNAL | | | Eosinophils | performed at [facility];[address] | K/uL | LAB | | | | [address];[place] | | | | | | [address] | | | | + + + + + + | Absolute | 0.10Comment: Testing | 0.00 - 0.10 | EXTERNAL | | | Basophils | performed at [facility];[address] | K/uL | LAB | | | | [address];[place] | | | | | | [address] | | | | + + + [...] EXTERNAL | | | | performed at [facility];[address] | mmol/L | LAB | | | | [address];[place] | | | | | | [address] | | | | + + + + + + | K | 4.2Comment: SLT | 3.5 - 4.9 | EXTERNAL | | | | HEMOLYSISTesting | mmol/L | LAB | | | | performed at [facility];[address] | | | | | | [address];[place] | | | | | | [address] | | | | + + + + + + | Cl | 101Comment: Testing | 99 - 109 mmol/L | EXTERNAL | | | | performed at [facility];[address] | | LAB | | | | [address];[place] | | | | | | [address] | | | | + + + + + + | CO2 | 27Comment: Testing | 23 - 32 mmol/L | EXTERNAL | | | | performed at [facility];[address] | | LAB | | | | [address];[place] | | | | | | [address] | | | | + + + + + + | Anion Gap | 12Comment: Testing | 5 - 20 mmol/L | EXTERNAL | | | | performed at [facility];[address] | | LAB | | | | [address];[place] | | | | | | [address] | | | | + + + + + + | Glucose, | 129 (H)Comment: Testing | 65 - 99 mg/dL | EXTERNAL | | | Fasting | performed at [facility];[address] | | LAB | | | | [address];[place] | | | | | | [address] | | | | + + + + + + | BUN | 13Comment: Testing | 8 - 25 mg/dL | EXTERNAL | | | | performed at [facility];[address] | | LAB | | | | [address];[place] | | | | | | [address] | | | | + + + + + + | Creatinine | 0.86Comment: Testing | 0.70 - 1.30 | EXTERNAL | | | | performed at [facility];[address] | mg/dL | LAB | | | | [address];[place] | | | | | | [address] | | | | + + + + + + | BUN/Creatin | 15Comment: Testing | | EXTERNAL | | | ine Ratio | performed at [facility];[address] | | LAB | | | | [address];[place] | | | | | | [address] | | | | + + + + + + | Calcium | 9.4Comment: Testing | 8.5 - 10.5 | EXTERNAL | | | | performed at [facility];[address] | mg/dL | LAB | | | | [address];[place] | | | | | | [address] | | | | + + + [...] | | | | | | at [facility];[address] | | [address];[place] [address] | | | | + + + [...]
--- OUTSIDE RECORDS SUMMARY | ~2019-07-14 | XMS | Encounter Summary ---
Demographics + + + | Address | [address] | | | [place] [address] | + + + | Home Phone | | + + + | Preferred Language | Unknown | + + + | Marital Status | Single | + + + | Taoist Affiliation | Unknown | + + + | Race | Unknown | + + + | Ethnic Group | Unknown | + + + Author + + + | Author | [facility] | | | and [place] | + + + | Organization | [facility] | | | and [place] | [...] Team Providers + +------+ + | Care Optical Lens Manufacturing Tech Name | Role | Phone | + +------+ + | Priscilla Ramírez PA-C | PCP | | + +------+ + Encounter Details +--------+ + + + + | Date | Type | Department | Care Team | Description | +--------+ + + + + | 10/03/ | Orders Only | [facility] | Juan Johnson | | | 2015 | | CARDIOLOGY NOAH | [address] | | | | | [address] | [address] | | | | | [address] | [place] [address] | | | | | [place], [place] | [phone] | | | | | [address] | | | | | | [phone] | | | +--------+ + + + [...] 2019 | Visit | | [address] | | | | | | [place] | | | | | | [address] | | | | | | | [...] Performed At | + + + | [facility] CARDIOLOGY Nuclear Lexiscan Stress Test TEST | [...] Alonzo Trevizo Conversion - 03/31/2019 11:14 PM [facility] | | Lexiscan Stress Test TEST DATE: [...]
--- OUTSIDE RECORDS SUMMARY | ~2019-07-14 | XMS | Encounter Summary ---
Demographics + + + | Address | [address] | | | [place] [address] | + + + | Home Phone [...] + + + | Author | [place] [employer] [facility] | + + + | Organization | Replaced By [facility] [...] Team Providers + +------+ + | Care Tearer Name | Role | Phone | + +------+ + | Priscilla Ramírez PA-C | PCP | | + +------+ + Encounter Details +--------+ + + + + | Date | Type | Department | Care Team | Description | +--------+ + + + + | 12/30/ | Ancillary | Registration [address] | [address], | | | 2005 | Registratio | [address] | [address] | | | | n | Abdoulaye Mailcode: RPB07 | [place], [place] | | | | | [place], [place] | [address] | | | | | [address] | | | | | | [phone] | | | +--------+ + + + [...] | | 2019 | Visit | | [address] | | | | | | [address] | | | | | | [place] | | | | | | [address] | | | | | | [phone] | | | | | | | | +--------+---------+ + + + documented as of this encounter Visit Diagnoses Not on filedocumented in this encounter"
--- OUTSIDE RECORDS SUMMARY | ~2019-07-14 | XMS | Encounter Summary ---
Demographics + + + | Address | [address] | | | [place] [address] | + + + | Home Phone [...] + + + | Author | [place] [employer] [facility] | + + + | Organization | [facility] | + + + | Address | Unknown | + + + | Phone | Unavailable | + + + Support + + +---------+ + | Name | Relationship | Address | Phone | + + +---------+ + | Alexandria Dixon | ECON | Unknown | | + + +---------+ + Care Team Providers + +------+ + | Care Perforator Operator Oil Well Name | Role | Phone | + [...] Closed | | Neurological | Diagnoses | Tarik, | Donnie, | | | | Surgery | | Shravan Schultz MD | Cathie, | | | | | Glucocortico | [facility] | DNP,CASING MACHINE OPERATOR,[place] | | | | | id | PHYSICIAN | [address] | | | | | deficiency | MED GROUP | Ave | | | | | (HCC) | CEDRIC | [place], [place] | | | | | Benign | MEDICAL | [address] | | | | | neoplasm of | [address] | Phone: | | | | | pituitary | [address] | [phone] | | | | | gland and | [place], | Fax: | | | | | craniopharyn | [place] [address] | [phone] | | | | | geal duct | Phone: | | | | | | (pouch) | [phone] | | | | | | (HCC) Other | Fax: | | | | | | anterior | [phone] | | | | | | pituitary [...] | | | | | | Donnie SECURITY TECH | | | +--------+--------+ + + + + Encounter Details +--------+---------+ + + + | Date | Type | Department | Care Team | Description | +--------+---------+ + + + | 06/11/ | Office | Neurosurgery at | Donnie, | Pituitary Adenoma | | 2006 | Visit | [facility] [address] | Cathie, | ([facility]); 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Ave Mailcode: [id number] | DNP,CASING MACHINE OPERATOR,[place] [address] | Hormone Deficiency | | | | [place] for [facility] | Nura Villanuevae [place], | ([facility]); 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, | [place] [address] | Insipidus ([facility]); | | | | Building 1 | [phone] | Hypogonadism Male; | | | | [facility] [place] | | Hypothyroid; Adrenal | | | | [address]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 2. Followp 12/15 for 1.5 MRI REPAIRER WELDING EQUIPMENT and RM testing 06/17/07 Msg to page [...] Rd | | | | | | [place], [place] | | | | | | [address] | | | | | | [phone] | | | | | | | [...] change effective | | | 05/31/07 RLB ([facility]) | | | [facility] [place] [address] [facility] | | | [place] [address] | | + + + + + + + + | Performing | Address | City/State/Zipcode | Phone Number | | Organization | | | | + + + + + | [facility] | [address] | [place] [address] | | | LABORATORY | | | [...] RLB ([facility]) | | | [facility] [place] [address] | | | [place] [address] | | + + + + + + + + | Performing | Address | City/State/Zipcode | Phone Number | | Organization | | | | + + + + + | [facility] | [address] | [place] [address] | | | LABORATORY | | | [...] change effective | | | 05/31/07 [facility] ([facility] [address] [facility]) [place] | | | [place] [address] [facility] | | | [place] [address] | | + + + + + + + + | Performing | Address | City/State/Zipcode | Phone Number | | Organization | | | | + + + + + | [facility] | [address] | [place] [address] | | | LABORATORY | | | [...] | + + + + + | [facility] | [address] | [place] [address] | | | LABORATORY | | | [...] Performed At | + + + | [id number] Estimated GFR > 60 mL/min/1.73 sq m if non- | [facility] | | [id number] Estimated GFR > 60 mL/min/1.73 sq m [...] | + + + + + | [facility] | [address] | [place] [address] | | | PATHOLOGY | [address] | | | + + + + + | [facility] | [address] | [place] [address] | | | PATHOLOGY | [address] [...]
--- OUTSIDE RECORDS SUMMARY | ~2019-07-14 | XMS | Encounter Summary ---
Demographics + + + | Address | [address] | | | [place] [address] | + + + | Home Phone | | + + + | Preferred Language | Unknown | + + + | Marital Status | Single | + + + | Evangelical Affiliation | Unknown | + + + | Race | Unknown | + + + | Ethnic Group | Unknown | + + + Author + + + | Author | [facility] | | | and [place] | + + + | Organization | [facility] | | | and [...] Team Providers + +------+ + | Care Ice Cream Freezer Helper Name | Role | Phone | + +------+ + | Jhonny Rodriguez DO | PCP | | + +------+ + Reason for Visit +--------+ + | Reason | Comments | +--------+ + | Apnea | | +--------+ + Encounter Details +--------+---------+ + + + | Date | Type | Department | Care Team | Description | +--------+---------+ + + + | 04/13/ | Office | [facility] | Sumanth Champion PA | MALLIKA on CPAP (Primary | | 2012 | Visit | SLEEP DISORDER [address] | [address] | Dx) | | | | [address] [place] | [place], [place] | | | | | [place] [address] | [address] | | | | | [phone] | | | +--------+---------+ + + + [...] + + + | Blood Pressure | 122/74 | 04/13/2013 2:05 PM | | | | | PDT | | + + + + + | Pulse | 93 | 04/13/2013 2:05 PM | | | | | PDT | | + + + + + | Temperature | - | - | | + + + + + | Respiratory Rate | 14 | 04/13/2013 2:05 PM | | | | | PDT | | + + + + + | Oxygen Saturation | - | - | | + + + + + | Inhaled Oxygen | - | - | | | Concentration | | | | + + + + + | Weight | 134 kg (295 lb 6.4 | 04/13/2013 2:05 PM | | | | oz) | PDT | | + + + + + | Height | - | - | | + + + + + | Body Mass Index | 44.92 | 10/30/2010 12:00 AM | | | | | PDT | | + + + + + documented in this encounter Progress Notes Liss Fontenot - 04/13/2013 2:02 PM PDT 04/13/13 1400 Bolanos Depression Inventory-II Depression Score 4 - Minimal depression Insomnia Severity Index Insomnia Severity Index 11 [place] Sleepiness Scale Sitting and reading 1 Watching TV 1 Sitting, inactive in a public place (e.g. [...] few minutes in traffic 0 Total score 9 SF-36v2 Score PF 54.93 RP 54.4 BP 37.18 GH 42.45 VT 48.97 SF 45.94 RE 55.88 MH 55.64 PCS 45.31 MCS 53.65 oram, BRETT Schneider - 1:56 PM PDT Subjective: Patient ID: Amairani Tyler is a 32 y.o. male. HPI last office visit was: 02/04/2012 date of polysomnography: 12/10/2006 AHI: 38.9 O2%: 75% with 19.7 minutes below 88% Machine type: ResMed S9 with nasal mask obtained from: [facility] [place] pressure: 12-18 cm 95%: 13.6 cm maximum: 13.9 cm CPAP download shows CPAP useage # nights: 282/461 average usage (all nights): 3:10 2:26 average usage (nights used): 3:38 4:00 AHI: 0.4 Shai comes in for CPAP compliance. He has struggled with being able to wear it for extende d periods of time on a regular basis because of his work schedule. He says that he typicall y works seventy hours per week and occasionally works twenty hour days. He is hopeful that this will not continue. He also uses his old Abreu and Paykel on nights he doesn't sleep a t home. He sleeps much better with his CPAP (especially his S9). He does not have any ques tions or concerns. I have discussed the download in detail. This shows that his sleep apnea is well controlle d, with an AHI of 0.4. It also shows that his leaks are well controlled. Review of Systems Objective: Physical Exam Assessment: Problem # 1: OBSTRUCTIVE SLEEP APNEA (ICD-327.23) This is well controlled with CPAP. He is doing well with his ResMed S9. Plan: He is to continue with CPAP indefinitely. I have recommended that he touch base with his m edical supplier twice per year to ensure that his equipment is satisfactory. I will follow up again in 1 year, sooner prn. At that time we will reassess with all appro piate paperwork. Fifteen minutes were spent [id number], with the majority of time spent i n counseling. Sumanth Champion PA-C cc: Dr. Jhonny Rodriguez documented in this enco unter Plan of Treatment +--------+---------+ + + + | Date | Type | Specialty | Care Team | Description | +--------+---------+ + + + | 11/21/ | Office | Sleep Medicine | Sumanth Champion PA | | | 2019 | Visit | | [address] [facility] | | | | | | [place] | | | | | | [id number] | | | | | | | | +--------+---------+ + + + documented as of this encounter Visit Diagnoses + + | Diagnosis | + + | MALLIKA on CPAP - Primary Obstructive sleep apnea (adult) (pediatric) | + + documented in this encounter"
--- OUTSIDE RECORDS SUMMARY | ~2019-07-14 | XMS | Encounter Summary ---
Demographics + + + | Address | [address] | | | [place] [address] | + + + | Home Phone [...] + + + | Author | [place] [employer] [facility] | + [...] Team Providers + +------+ + | Care Nuclear Control Room Operator Name | Role | Phone | + +------+ + | Priscilla Ramírez PA-C | PCP | | + +------+ + Encounter Details +--------+ + + + + | Date | Type | Department | Care Team | Description | +--------+ + + + + | 10/30/ | Ancillary | Registration [address] | Donnie, | | | 2005 | Registratio | [facility] [address] | Cathie | | | | n | Abdoulaye Mailcode: [id number] | DNP,FICTION AND NONFICTION AUTHOR,[place] [address] | | | | | [place], [place] | [address] [place], | | | | | [address] | [place] [address] | | | | | [phone] | [phone] | | | | | | | [...] [place] | | | | | | [address] | | | | | | [phone] | | | | | | | | +--------+---------+ + + + documented as of this encounter Visit Diagnoses Not on filedocumented in this encounter"
--- OUTSIDE RECORDS SUMMARY | ~2019-07-14 | XMS | Encounter Summary ---
Demographics + + + | Address | [address] | | | [place] [address] | + + + | Home Phone [...] + + + | Author | [place] [employer] [facility] | + + + | Organization | [facility] | [...] | +--------+ + + + + | 05/09/ | MyChart | Neurosurgery at | Donnie, | RE: Appointment | | 2008 | Encounter | [facility] [address] | Cathie | | | | | [place] Mailcode: CH8N | DNP,STRATEGIC SOURCING CONSULTANT,[place] [address] | | | | | [facility] | Nura [address] [place], | | | | | and Healing, | [place] [address] | | | | | [facility] 1 | [phone] | | | | | [place], [place] | | | | | | [address] | | | | | | [phone] | | | +--------+ + + + [...] Rd | | | | | | [place], [place] | | | | | | [address] | | | | | | [phone] | | | | | | | | +--------+---------+ + + + documented as of this encounter Visit Diagnoses Not on filedocumented in this encounter"
--- OUTSIDE RECORDS SUMMARY | ~2019-07-14 | XMS | Encounter Summary ---
Demographics + + + | Address | [address] | | | [place] [address] | + + + | Home Phone [...] Team Providers + +------+ + | Care Renal Nurse Name | Role | Phone | [...] Rd | | | | | | [place], [place] | | | | | | [address] | | | | | | [phone] | | | | | | | [...] | Transcriptions | + + | Interface, Embossing Machine Operator Helper In - 07/30/2005 7:32 PM PST | | [id number] | | [id number] TOREY TRIVEDI V | | | | Date: 10/17/2004 | | | | Attending Surgeon: Jessenia Amor M.D. | | | | Flight Security Specialist(s): Juan Delgado M.D. | | Oksana Solomon [...] was isolated on a Mcdonnell and then [place] hook. Conjunctiva and | | Tenon's were reflected, and Tenon's was dissected away from the muscle | | using sharp dissection with Misbah scissors. A second [place] was then | | passed in the [...] morning at 8 | | a.m. in [facility] to see Dr. Delgado and | | Zuleyma. | | | | Dr. Delgado was present for the entire case and performed all vital parts of | | the procedure. | | | | | | | | | | Johan Hebert M.D. | | | | TC / HS | | [id number] / [id number] / [id number] / [id number] | | | | | | C: 10/29/2004 cmw | | | | | | Electronically signed by Juan Delgado 11-12-2004 10:15:31 AM | + + documented in this encounter Visit Diagnoses Not on filedocumented in this encounter"
--- OUTSIDE RECORDS SUMMARY | ~2019-07-14 | XMS | Encounter Summary ---
Demographics + + + | Address | [address] | | | [place] [address] | + + + | Home Phone [...] + + | Author | [place] [employer] [facility] | + + + | Organization | [facility] | + + + | Address | Unknown | + + + | Phone | Unavailable | + + + Support + + +---------+ + | Name | Relationship | Address | Phone | + + +---------+ + | Alexandria Dixon | ECON | Unknown | | + + +---------+ + Care Team Providers + +------+ + | Care Manager Pharmaceutical Name | Role | Phone | + [...] W | | | | ON | [facility] 4th Floor [address] | [facility] | | | | | [address] [facility] | Road [place], [place] | | | | | Mailcode: [facility] | [address] | | | | | [facility] | | | | | | and Healing, | | | | | | [facility] [address] [place] [address] | | | | | | [place], [place] | | | | | | [address] | | | | | | [phone] | | | +--------+ + + + [...] Rd | | | | | | [place], [place] | | | | | | [address] | | | | | | [phone] | | | | | | | [...]
--- OUTSIDE RECORDS SUMMARY | ~2019-07-14 | XMS | Encounter Summary ---
Demographics + + + | Address | [address] | | | [place] [address] | + + + | Home Phone [...] + + | Author | [place] [employer] [facility] | + + + | Organization | [facility] | + + + | Address | Unknown | + + + | Phone | Unavailable | + + + Support + + +---------+ + | Name | Relationship | Address | Phone | + + +---------+ + | Alexandria Dixon | ECON | Unknown | | + + +---------+ + Care Team Providers + +------+ + | Care Oyster Worker Name | Role | Phone | + +------+ + | No Pcp Per Patient | PCP | Unavailable | + +------+ + Encounter Details +--------+ + + + + | Date | Type | Department | Care Team | Description | +--------+ + + + + | 12/02/ | Customer Marketing Assistant | Neurosurgery at | Donnie, | | | 2009 | | [facility] [address] | Cathie | | | | | [place] Mailcode: CH8N | DNP,VENETIAN BLIND WASHER,[place] [address] | | | | | [facility] | Nura [address] [place], | | | | | and Healing, | [place] [address] | | | | | | [phone] | | | | | Floor [employer], [place] | | | | | | [address] | | | | | | [phone] | | | +--------+ + + + [...] Rd | | | | | | [place], [place] | | | | | | [address] | | | | | | [phone] | | | | | | | | +--------+---------+ + + + documented as of this encounter Visit Diagnoses Not on filedocumented in this encounter"
--- OUTSIDE RECORDS SUMMARY | ~2019-07-14 | XMS | Encounter Summary ---
Demographics + + + | Address | [address] | | | [place] [address] | + + + | Home Phone [...] + + | Author | [place] [employer] [facility] | + + + | Organization | [facility] [...] Team Providers + +------+ + | Care Branch Sales And Service Representative Name | Role | Phone | [...] | | | | | adenoma | DNP,ACUTE CARE PHYSICIAN,[place] | Kit Tanner | | | | | (HCC) | [address] | [address] | | | | | Procedures | Ave | Mailcode: | | | | | MRI | [place], [place] | [address] | | | | | PITUITARY | [address] | [place] | | | | | WWO CONTRAST | Phone: | Research | | | | | NE MRI | [phone] | [place] | | | | | BRAIN COMBO | Fax: | [place], [place] | | | | | | [phone] | [address] | | | | | | | Phone: | | | | | | | [phone] | | | | | | | Fax: | | | | | | | [phone] | +--------+--------+ + + + + Reason [...] | | | | | adenoma | DNP,ACUTE CARE PHYSICIAN,[place] | Kit Tanner | | | | | ([facility]) | [address] | [address] | | | | | Procedures | Ave | Mailcode: | | | | | MRI | [place], [place] | [address] | | | | | PITUITARY | [address] | [place] | | | | | WWO CONTRAST | Phone: | Research | | | | | NE MRI | [phone] | Center | | | | | BRAIN COMBO | Fax: | [facility] [place] | | | | | | [phone] | [address] | | | | | | | Phone: | | | | | | | [phone] | | | | | | | Fax: | | | | | | | [phone] | +--------+--------+ + + + + Encounter Details +--------+ + + + + | Date | Type | Department | Care Team | Description | +--------+ + + + + | 12/09/ | Hospital | Radiology/Imaging | | | | 2013 | Encounter | Lab at [facility] [address] | | | | | | [address] Mailcode: | | | | | | CH3G [facility] | | | | | | Health and Healing, | | | | | | Building 1, 3rd | | | | | | Floor [facility] [place] | | | | | | [address] | | | | | | [phone] | | | +--------+ + + + [...] 08/15/ | Office | Cardiology | Zuleika Heranndez, | | | 2019 | Visit | | [address] | | | | | | [address] | | | | | | [place], [place] | | | | | | [address] | | | | | | [phone] | | | | | | | [...] + +---------+ + + | [facility] DEPARTMENT OF | | | | | [...] + + | KASHIF ISAAC | [address] [facility] | [place] [address] | | | OF CARE TESTS | | | | + + + + + documented in this encounter Visit Diagnoses + + | Diagnosis | + + | Pituitary adenoma (HCC) Benign neoplasm of pituitary gland and craniopharyngeal duct | | (pouch) | + + documented in this encounter"
--- OUTSIDE RECORDS SUMMARY | ~2019-07-14 | XMS | Encounter Summary ---
Demographics + + + | Address | [address] | | | [place] [address] | + + + | Home Phone [...] + + | Author | [place] [employer] [facility] | + + + | Organization | [facility] [...] Providers + +------+ + | Care School Plant Consultant Name | Role | Phone | [...] [address] | | | | | [place] at | [place] [address] | | | | | [address] | [place], [place] | | | | | [address] | [address] | | | | | [place], [place] | [phone] | | | | | [address] | | | | | | [phone] | | | +--------+ + + + [...] Rd | | | | | | [place], [place] | | | | | | [address] | | | | | | [phone] | | | | | | | | +--------+---------+ + + + documented as of this encounter Visit Diagnoses Not on filedocumented in this encounter"
--- OUTSIDE RECORDS SUMMARY | ~2019-07-14 | XMS | Encounter Summary ---
Demographics + + + | Address | [address] | | | [place] [address] | + + + | Home Phone [...] + + + | Author | [place] [employer] [facility] | + [...] Providers + +------+ + | Care Counter Roller Name | Role | Phone | + +------+ + | Priscilla Ramírez PA-C | PCP | | + +------+ + Encounter Details +--------+ + + + + | Date | Type | Department | Care Team | Description | +--------+ + + + + | 05/13/ | Abstract | Cardiology General | Zuleika Hernandez, | | | 2018 | | at [facility] [address] | [address] | | | | | [address]ura [address] Mailcode: | [address] | | | | | [address] | [place], [place] | | | | | Health and Healing, | [address] | | | | | [facility] | [phone] | | | | | floor [place], [place] | | | | | | [address] | | | | | | [phone] | | | +--------+ + + + [...] Rd | | | | | | [place], [place] | | | | | | [address] | | | | | | [phone] | | | | | | | | +--------+---------+ + + + documented as of this encounter Visit Diagnoses Not on filedocumented in this encounter"
--- OUTSIDE RECORDS SUMMARY | ~2019-07-14 | XMS | Encounter Summary ---
Demographics + + + | Address | [address] | | | [place] [address] | + + + | Home Phone [...] + | Author | [facility] | | | and [place] | + + + | Organization | [facility] | | | and [place] [...] Team Providers + +------+ + | Care Sow Farm Manager Name | Role | Phone [...] | Sumanth Champion | | | | [place] / | Obstructive | Bren H, | D, PA [address] | | | | Sleep | sleep apnea | [address] | | | | Medicine | (adult) | NW | [place], | | | | | (pediatric) | [place] | [place] [address] | | | | | [address] | [address] | Phone: | | | | | EQUIP | [place], | [phone] | | | | | Procedures | [place] | Fax: | | | | | [place] OFFICE | [address] | [phone] | | | | | OUTPATIENT | Phone: | | | | | | VISIT 25 | [phone] | | | | | | MINUTES | Fax: | | | | | | OFFICE VISIT | [phone] | | | | | | EXTENDED | | | +--------+--------+ + + + + Encounter Details +--------+---------+ + + + | Date | Type | Department | Care Team | Description | +--------+---------+ + + + | 07/19/ | Office | [facility] | Sumanth Champion PA | MALLIKA on CPAP (Primary | | 2018 | Visit | SLEEP DISORDER [address] | [address] | Dx) | | | | [address] [place] | [place] | | | | | [place] [address] | [address] | | | | | [phone] | | | +--------+---------+ + + + [...] nasal mask DME: [facility] [place] pressure: 12-18 cm Median: 12.5 cm 95%: [...] getting supplies from [facility] [place] on and would like to change his DME to [facility] [place]. I have discussed the download in detail. [...] Exam Assessment: Problem #1: OBSTRUCTIVE SLEEP APNEA ([id number]) This is controlled with CPAP. He continues [...] 3. We have faxed a prescription to [facility] in [place] for a ResMed AirSense 10 with a [...] Peter | | | | | | [place] | | | | | | [address] | | | | | | | | +--------+---------+ + + + documented as of this encounter Visit Diagnoses + + | Diagnosis | + + | MALLIKA on CPAP - Primary Obstructive sleep apnea (adult) (pediatric) | + + documented in this encounter"
--- OUTSIDE RECORDS SUMMARY | ~2019-07-14 | XMS | Encounter Summary ---
Demographics + + + | Address | [address] | | | [place] [address] | + + + | Home Phone [...] + + + | Author | [place] [employer] [facility] | + + + | Organization | [facility] | + [...] Team Providers + +------+ + | Care Land Surveyor Manager Name | Role | Phone | + +------+ + | Priscilla Ramírez PA-C | PCP | | + +------+ + Encounter Details +--------+ + + + + | Date | Type | Department | Care Team | Description | +--------+ + + + + | 12/08/ | Ancillary | Registration [address] | Donnie, | | | 2006 | Registratio | [facility] [address] Tanner | Cathie | | | | n | Abdoulaye Mailcode: RPB07 | DNP,RNFA,[place] [address] | | | | | [place], [place] | [address] [place], | | | | | [address] | [place] [address] | | | | | [phone] | [phone] | | | | | | | [...] | | 2019 | Visit | | [address] | | | | | | [address] | | | | | | [place], [place] | | | | | | [address] | | | | | | [phone] | | | | | | | | +--------+---------+ + + + documented as of this encounter Visit Diagnoses Not on filedocumented in this encounter"
--- OUTSIDE RECORDS SUMMARY | ~2019-07-14 | XMS | Encounter Summary ---
Demographics + + + | Address | [address] | | | [place] [address] | + + + | Home Phone [...] + + + | Author | [place] [employer] [facility] | + + + | Organization | [facility] [...] Team Providers + +------+ + | Care Healthcare Administration Internship Name | Role | Phone | + +------+ + PCP | Unavailable | + +------+ + Encounter Details +--------+ + + + + | Date | Type | Department | Care Team | Description | +--------+ + + + + | 08/26/ | Results | Endocrinology | Donnie, | | | 2005 | Only | Pituitary Disease | Cathie | | | | | Clinic [address] | DNP,SCREENING TECHNICIAN,[place] [address] | | | | | [address] | Nura [place], | | | | | Mailcode: HCV353 | [place] [address] | | | | | [place] | [phone] | | | | | [address] | | | | | | [place], [place] | | | | | | [address] | | | | | | [phone] | | | +--------+ + + + [...] Rd | | | | | | [place], [place] | | | | | | [address] | | | | | | [phone] | | | | | | | | +--------+---------+ + + + documented as of this encounter Procedures + +--------+ + + + | Procedure Name | Priori | Date/Time | Associated Diagnosis | Comments | | | ty | | | | + +--------+ + + + | MRI BRAIN WWO | Routin | 10/31/2005 | | Results for this | | CONTRAST | e | 7:45 AM | | procedure are in the | | | | PST | | results section. 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 | | | | | | TECHNIQUE:MRI evaluation | | | | | | of the brain was | | | | | | performed with and | | | | | | withoutgadolinium using | | | | | | the following sequences: | | | | | | sagittal T1 and | | | | | | coronalT2 weighted | | | | | | images. In addition | | | | | | high-resolution coronal | | | | | | T1 imageswere obtained | | | | | | through the pituitary as | | | | | | well post | | | | | | Gadoliniumcoronal T1 and | | | | | | sagittal T1 images | | | | | | and dynamic study. | | | | | | Comparisonwas made to | | | | | | prior study dated | | | | | | 08/20/05. FINDINGS:The | | | | | | patient is status post | | | | | | transphenoidal resection | | | | | | of | | | | | | pituitarymacroadenoma. | | | | | | There is slight | | | | | | residual deformity of | | | | | | the opticchiasm but no | | | | | | evidence of impingement | | | | | | is identified. | | | | | | Thepituitary stalk | | | | | | appears slightly | | | | | | thickened, probably | | | | | | postsurgical. The | | | | | | pituitary gland is in | | | | | | the upper limits of | | | | | | normal in size, | | | | | | nodefinite recurrent | | | | | | mass is identified. | | | | | | Dynamic study | | | | | | demonstrate no evidence | | | | | | of delayed | | | | | | enhancementwithin the | | | | | | pituitary gland. | | | | | | Visualized paranasal | | | | | | sinuses and orbits are | | | | | | within normal limits. 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 | | | | + + + + + + + + | Specimen | + + | | + + + +---------+ + + | Performing | Address | City/State/Zipcode | Phone Number | | Organization | | | | + +---------+ + + | [facility] | | | | | RADIOLOGY | | | | + +---------+ + + documented in this encounter Visit Diagnoses Not on filedocumented in this encounter"
--- OUTSIDE RECORDS SUMMARY | ~2019-07-14 | XMS | Encounter Summary ---
Demographics + + + | Address | [address] | | | [place] [address] | + + + | Home Phone [...] + + + | Author | [place] [employer] [facility] | + + + | Organization | [facility] | + [...] Team Providers + +------+ + | Care Tool Room Supervisor Name | Role | Phone | [...] pills | | 2010 | Encounter | [facility] [address] | Cathie | | | | | [place] Mailcode: CH8N | DNP,PRINT AND PATTERN DESIGNER,[place] [address] | | | | | [facility] | [address], | | | | | and Healing, | [place] [address] | | | | | [facility] [address] | [phone] | | | | | [place], [place] | | | | | | [address] | | | | | | [phone] | | | +--------+ + + + [...] Rd | | | | | | [place], [place] | | | | | | [address] | | | | | | [phone] | | | | | | | | +--------+---------+ + + + documented as of this encounter Visit Diagnoses Not on filedocumented in this encounter"
--- OUTSIDE RECORDS SUMMARY | ~2019-07-14 | XMS | Encounter Summary ---
Demographics + + + | Address | [address] [facility] [facility] | | | [place] [address] | + + + | Home Phone [...] + | Author | [facility] | | | and [place] | + + + | Organization | [facility] | | | and [...] Team Providers + +------+ + | Care Window Covering Sales Consultant Name | Role | Phone | [...] Provider Unknown | | | | | [place], [place] | [phone] | | | | | [address] | | | | | | [phone] | | | +--------+ + + + [...] [place] | | | | | | [address] | | | | | | | [...]
--- OUTSIDE RECORDS SUMMARY | ~2019-07-14 | XMS | Encounter Summary ---
Demographics + + + | Address | [address] [facility] [facility] | | | [place] [address] | + + + | Home Phone [...] + + | Author | [place] [employer] [facility] | + + + | Organization | [facility] [...] Team Providers + +------+ + | Care Glue Clamp Operator Name | Role | Phone | [...] | | | [place] Mailcode: CH8N | DNP,CRYSTAL FINISHER,[place] [address] | | | | | [facility] | [address]ura [address] [place], | | | | | and Healing, | [place] [address] | | | | | Building 1 | [phone] | | | | | [place], [place] | | | | | | [address] | | | | | | [phone] | | | +--------+--------+ + + + [...] Rd | | | | | | [place], [place] | | | | | | [address] | | | | | | [phone] | | | | | | | [...]
--- OUTSIDE RECORDS SUMMARY | ~2019-07-14 | XMS | Encounter Summary ---
Demographics + + + | Address | [address] | | | [place] [address] | + + + | Home Phone [...] + + + | Author | [place] [employer] [facility] | + + + | Organization | [facility] [...] Team Providers + +------+ + | Care Group Work Program Aide Name | Role | Phone | [...] [facility] [address] | Cathie, | | | | | [place] Mailcode: CH8N | DNP,WASH CREW PERSON,[place] [address] | | | | | [facility] | Nura [address] [place], | | | | | and [facility], | [place] [address] | | | | | Building 1 | [phone] | | | | | [place], [place] | | | | | | [address] | | | | | | [phone] | | | +--------+--------+ + + + [...] Rd | | | | | | [place], [place] | | | | | | [address] | | | | | | [phone] | | | | | | | | +--------+---------+ + + + documented as of this encounter Visit Diagnoses Not on filedocumented in this encounter"
--- OUTSIDE RECORDS SUMMARY | ~2019-07-14 | XMS | Encounter Summary ---
Demographics + + + | Address | [address] | | | [place] [address] | + + + | Home Phone [...] + + + | Author | [place] [employer] [facility] | + + + | Organization | [facility] | + [...] Team Providers + +------+ + | Care Stenciler Name | Role | Phone | + [...] + + + + | 02/18/ | Telephone | Neurosurgery at | [place], | Refill Request | | 2012 | | [facility] [address] | Cathie, | | | | | [place] Mailcode: CH8N | DNP,BEE ROBBER,[place] [address] | | | | | [facility] | [address] [place], | | | | | and Healing, | [place] [address] | | | | | Building 1 | [phone] | | | | | [place], [place] | | | | | | [address] | | | | | | [phone] | | | +--------+ + + + [...] Rd | | | | | | [place], [place] | | | | | | [address] | | | | | | [phone] | | | | | | | | +--------+---------+ + + + documented as of this encounter Visit Diagnoses Not on filedocumented in this encounter"
--- OUTSIDE RECORDS SUMMARY | ~2019-07-14 | XMS | Encounter Summary ---
Demographics + + + | Address | [address] | | | [place] [address] | + + + | Home Phone [...] + + + | Author | [place] [employer] [facility] | + + + | Organization | [facility] | + + + | Address | Unknown | + + + | Phone | Unavailable | + + + Support + + +---------+ + | Name | Relationship | Address | Phone | + + +---------+ + | Alexandria Dixon | ECON | Unknown | | + + +---------+ + Care Team Providers + +------+ + | Care Embedded Software Design Engineer Name | Role | Phone | + +------+ + | Bernardo Pan | PCP | | + +------+ + Reason for Visit Diagnostic Testing (Routine) + +--------+ + + + + | Status | Reason | Specialty | Diagnoses / | Referred By | Referred To | | | | | Procedures | Contact | Contact | + +--------+ + + + + | Canceled | | Radiology | Diagnoses | [place], | [facility] | | | | | 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, | [address] | | | | | artery | [address] [address] | [address] | | | | | disease, | [address] | [address] | | | | | angina | [facility] | Mailcode: | | | | | presence | Rd | [address] | | | | | unspecified, | [facility] | [place] | | | | | unspecified | [address] | Research | | | | | vessel or | Phone: | Center | | | | | lesion type, | [phone] | [place], [place] | | | | | unspecified | Fax: | [address] | | | | | whether | [phone] | Phone: | | | | | [place] | | [phone] | | | | | transplanted | | Fax: | | | | | heart | | [phone] | | | | | Procedures | | | | | | | CTA CORONARY | | | | | | | ANGIOGRAM | | | | | | | AND CALCIUM | | | | | | | SCORE W | | | | | | | CONTRAST | | | + +--------+ + + + + Encounter Details +--------+ + + + + | Date | Type | Department | Care Team | Description | +--------+ + + + + | 12/11/ | Hospital | Diagnostic Imaging | Evelin Godoy, | No Show | | 2017 | Encounter | Services at [facility] | PA-C [address] | | | | | [address] | [address] | | | | | [address] Mailcode: | [place], [place] | | | | | [address] [facility] | [address] | | | | | [place], [place] | [phone] | | | | | [address] | | | | | | [phone] | Moreno Cotto MD | | | | | | [address] | | | | | | [place], [place] | | | | | | [address] | | | | | | [phone] | | | | | | | [...] | | 2019 | Visit | | [address] | | | | | | [address] | | | | | | [place], [place] | | | | | | [address] | | | | | | [phone] | | | | | | | | +--------+---------+ + + + documented as of this encounter Visit Diagnoses Not on filedocumented in this encounter"
--- OUTSIDE RECORDS SUMMARY | ~2019-07-14 | XMS | Encounter Summary ---
Demographics + + + | Address | [address] | | | [place] [address] | + + + | Home Phone [...] | Author | [facility] | | | and [place] | + + + | Organization | [facility] | [...] Providers + +------+ + | Care Legal Director Name | Role | Phone | + +------+ + PCP | Unavailable | + +------+ + Encounter Details +--------+ + + + + | Date | Type | Department | Care Team | Description | +--------+ + + + + | 02/12/ | Hospital | [facility] | Moiz Raza | | | 2010 | Encounter | MED CTR XRAY [address] | | | | | [place] | [place], [place] | | | | | [place] [address] | [id number] | | | | | [phone] | | | +--------+ + + + [...] 2020 | Visit | | [address] | | | | | | [place] | | | | | | [address] | | | | | | | [...] Performed At | + + + | [facility] | [facility] | | [address] [facility] | [facility] | | PROCEDURE: LEFT SUBSCAPULAR | DIAG [...] Transcribed Date/Time: | | | 02/12/2011 20:23 Signal Manager: <Electronically Signed | | | by Moiz Raza MD> 02/17/11 5959 | | + + + + + | Procedure Note | + + | Santhosh, Rad Conversion - 09/16/2013 3:18 PM [facility] | | Diagnostic Imaging Department [address] [place] [address] | | PROCEDURE: LEFT SUBSCAPULAR BURSA INJECTION [...] 19:19 | |Transcribed Date/Time: 02/12/2011 20:23 | |Signal Manager: | |<Electronically Signed by Moiz Raza MD> 02/17/11 165 | + + + +---------+ + + | Performing | Address | City/State/Zipcode | Phone Number | | Organization | | | | + +---------+ + + | [place] | | | | | [facility] PATSY OMER | | | | + +---------+ + + documented in this encounter Visit Diagnoses Not on filedocumented in this encounter"
--- OUTSIDE RECORDS SUMMARY | ~2019-07-14 | XMS | Encounter Summary ---
Demographics + + + | Address | [address] [facility] | | | [place] [address] | + + + | Home Phone [...] + + + | Author | [place] [employer] [facility] | + + + | Organization | [facility] | + + + | Address | Unknown | + + + | Phone | Unavailable | + + + Support + + +---------+ + | Name | Relationship | Address | Phone | + + +---------+ + | Alexandria Dixon | ECON | Unknown | | + + +---------+ + Care Team Providers + +------+ + | Care Transit Clerk Name | Role | Phone | [...] | | | Pituitary | Cathie, | [facility] [address] | | | | | adenoma | DNP,IT HELP DESK TECHNICIAN,[place] | [address] | | | | | ([facility]) | [address] | Mailcode: | | | | | Growth | Ave | [facility] | | | | | hormone | [place], [place] | for Health | | | | | deficiency | [address] | and Healing, | | | | | ([facility]) | Phone: | Building 1, | | | | | Panhypopitui | [phone] | 3rd Floor | | | | | tarism ([facility]) | Fax: | [place], [place] | | | | | Procedures | [phone] | [address] | | | | | MRI | | Phone: | | | | | PITUITARY | | [phone] | | | | | WWO CONTRAST | | Fax: | | | | | [place] MRI | | [phone] | | | | | BRAIN COMBO [...] | | | Pituitary | Cathie, | [address] | | | | | adenoma | DNP,IT HELP DESK TECHNICIAN,[place] | [address] | | | | | ([facility]) | [address] | Mailcode: | | | | | Growth | Ave | [facility] | | | | | hormone | [place], [place] | for Health | | | | | deficiency | [address] | and Healing, | | | | | (HCC) | Phone: | Building 1, | | | | | Panhypopitui | [phone] | 3rd Floor | | | | | tarism (HCC) | Fax: | [place], [place] | | | | | Procedures | [phone] | [address] | | | | | MRI | | Phone: | | | | | PITUITARY | | [phone] | | | | | WWO CONTRAST | | Fax: | | | | | MT MRI | | [phone] | | | | | BRAIN COMBO | | | +--------+--------+ + + + + Encounter Details +--------+ + + + + | Date | Type | Department | Care Team | Description | +--------+ + + + + | 02/24/ | Hospital | Radiology/Imaging | Donnie, | | | 2019 | Encounter | Lab at [facility] [address] | Cathie, | | | | | [address] Mailcode: | DNP,IT HELP DESK TECHNICIAN,[place] [address] | | | | | [facility] | [address] [place], | | | | | Health and Healing, | [place] [address] | | | | | [address] | [phone] | | | | | Floor [place], [place] | | | | | | [address] | | | | | | [phone] | | | +--------+ + + + [...] + + +---------+ + + | amLODIPine 10 mg | Take 1 tablet by | 90 | 3 | 07/08/20 | | | oral tablet | mouth once daily. | tablet | | 18 | | + + + +---------+ + + | aspirin chewable | Chew and swallow 1 | 90 | 3 | 07/08/20 | | | 81 mg oral | tablet once daily. | tablet | | 18 | | | tablet,chewable | | | | | | + + + +---------+ + + | atorvastatin 80 mg | Take 1 tablet by | 90 | 3 | 07/08/20 | | | oral tablet | mouth once daily in | tablet | | 18 | | | | the evening. | | | | | + + + +---------+ + + | cholecalciferol, | Take 6,000 Units by | | 0 | | | | vitamin D3, 4,000 | mouth once daily. | | | | | | unit oral tablet | | | | | | + + + +---------+ + + | clopidogrel | Take 1 tablet by | 90 | 3 | 07/08/20 | | | (PLAVIX) 75 mg oral | mouth once daily in | tablet | | 18 | | | tablet | the morning. | | | | | + + + +---------+ + + | cyclobenzaprine 10 | Take 10 mg by mouth | | 0 | | | | mg oral tablet | as needed. | | | | | + + + +---------+ + + | DEPO-TESTOSTERONE | Inject 200 mg under | | 0 | 05/14/20 | | | 200 mg/mL | the skin (SUBC) | | | 16 | | | intramuscular oil | every fourteen days. | | | | | + + + +---------+ + + | desmopressin | Take 1 1/2 tablets | 315 | 1 | 01/29/20 | | | (DDAVP) 0.2 mg oral | in the morning and 2 | tablet | | 19 | | | tabletIndications: | tablets in the | | | | | | Panhypopituitarism | evening. | | | | | | (HCC) | | | | | | + [...] + + + +---------+ + + | L-Methylfolate | Take 7.5 mg by mouth | | 0 | | | | (L-METHYLFOLATE) 7.5 | once daily. | | | | | | mg oral tablet | | | | | | + + + +---------+ + + | levothyroxine 125 | Take 1 tablet by | 90 | 1 | 11/18/19 | | | mcg oral tablet | mouth before | tablet | | 15 | | | | breakfast. | | | | | + + + +---------+ + + | lisinopril 40 mg | Take 1 tablet by | 90 | 3 | 07/08/20 | | | oral tablet | mouth once daily. | tablet | | 18 | | + + + +---------+ + + | metFORMIN 500 mg | 2 tabs at breakfast | 90 | 5 | 06/22/20 | | | oral tablet | and one tab at | tablet | | 15 | | | | dinner dialy | | | | | + + + +---------+ + + | metoprolol | Take 1 tablet by | 180 | 3 | 07/08/20 | | | tartrate 100 mg oral | mouth two times | tablet | | 18 | | | tablet | daily. | | | | | + + [...] + + + +---------+ + + | pseudoephedrine 60 | Take 60 mg by mouth | | 0 | | | | mg oral tablet | as needed. | | | | | + + + +---------+ + + | sertraline HCl | pt reports taking 75 | | 0 | | | | (SERTRALINE ORAL) | daily | | | | | + + + +---------+ + + | Somatropin 10 mg/2 | Inject 0.8 mg under | 6 mL | 5 | 10/22/19 | | | mL (5 mg/mL) | the skin (SUBC) once | | | 19 | | | subcutaneous | daily. | | | | | | cartridge | | | | | | + [...] Rd | | | | | | [place], [place] | | | | | | [address] | | | | | | [phone] | | | | | | | | +--------+---------+ + + + documented as of this encounter Procedures + +--------+ + + + | Procedure Name | Priori | Date/Time | Associated Diagnosis | Comments | | | ty | | | | + +--------+ + + + | MRI PITUITARY WWO | Routin | 02/24/2019 | Pituitary adenoma | Results for this | | CONTRAST | e | 8:32 AM | (HCC) Growth | procedure are in the | | | | PDT | hormone deficiency | results section. 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) [...] | | adenoma status post resection in 2005 COMPARISON: 07/13/2015 MRI TECHNIQUE: Multiplanar | | [...] Panhypopituitarism | + + documented in this encounter Administered Medications + +---------+ +-------+------+------+ | Medication Order | MAR | Action | Dose | Rate | Site | | | Action | Date | | | | + +---------+ +-------+------+------+ | gadoterate meglumine (DOTAREM) | IV Push | 02/25/20 | 25 mL | | | | 0.5 mmol/mL (376.9 mg/mL) | | 19 8:45 | | | | | injection 25 mL 25 mL (rounded | | AM PDT | | | | | from 24.56 mL = 0.2 mL/kg | | | | | | | 122.8 kg Order-specific weight), | | | | | | | intravenous, ONCE, 1 dose, Lexi | | | | | | | 02/24/19 at 0845 | | | | | | + +---------+ +-------+------+------+ +---+---+ | | | +---+---+ documented in this encounter"
--- OUTSIDE RECORDS SUMMARY | ~2019-07-14 | XMS | Encounter Summary ---
Demographics + + + | Address | [address] | | | [place] [address] | + + + | Home Phone [...] + + | Author | [place] [employer] [facility] | + + + | Organization | [facility] [...] Providers + +------+ + | Care Senior Sql Server Dba Name | Role | Phone | + [...] | | | Ave Mailcode: CH8N | DNP,EDUCATION PARAPROFESSIONAL,[place] [address] | | | | | [facility] | [address] [place], | | | | | and [place], | [place] [address] | | | | | Building 1 | [phone] | | | | | [place], [place] | | | | | | [address] | | | | | | [phone] | | | +--------+ + + + [...] Rd | | | | | | [place], [place] | | | | | | [address] | | | | | | [phone] | | | | | | | | +--------+---------+ + + + documented as of this encounter Visit Diagnoses Not on filedocumented in this encounter"
--- OUTSIDE RECORDS SUMMARY | ~2019-07-14 | XMS | Encounter Summary ---
Demographics + + + | Address | [address] | | | [place] [address] | + + + | Home Phone [...] + + + | Author | [place] [employer] [facility] | + + + | Organization | [facility] [...] Team Providers + +------+ + | Care Informatics Application Analyst Name | Role | Phone | [...] Refill Request | | 2009 | | [facility] [address] | Cathie, | | | | | [place] Mailcode: CH8N | DNP,MANAGER TRANSIT,[place] [address] | | | | | [facility] | [address] [place], | | | | | and [facility], | [place] [address] | | | | | Building 1 | [phone] | | | | | [place], [place] | | | | | | [address] | | | | | | [phone] | | | +--------+--------+ + + + [...] Rd | | | | | | [place], [place] | | | | | | [address] | | | | | | [phone] | | | | | | | | +--------+---------+ + + + documented as of this encounter Visit Diagnoses Not on filedocumented in this encounter"
--- OUTSIDE RECORDS SUMMARY | ~2019-07-14 | XMS | Encounter Summary ---
Demographics + + + | Address | [address] | | | [place] [address] | + + + | Home Phone [...] + + | Author | [place] [facility] | + + + | Organization | [facility] [...] Team Providers + +------+ + | Care Food Porter Name | Role | Phone | + [...] | | | neoplasm of | | DNP,VARNISH DIPPER,[place] | | | | | pituitary | | [address] | | | | | gland and | | Ave | | | | | craniopharyn | | [place], [place] | | | | | geal duct | | [address] | | | | | (pouch) | | Phone: | | | | | ([facility]) | | [phone] | | | | | Procedures | | Fax: | | | | | NE ESTAB | | [phone] | | | | | PATIENT | | | | | | | LEVEL 5 | | | +--------+--------+ + + + + Encounter Details +--------+---------+ + + + | Date | Type | Department | Care Team | Description | +--------+---------+ + + + | 11/30/ | Office | Neurosurgery at | [place], | Pituitary adenoma | | 2009 | Visit | [facility] [address] | [place], | ([facility]); 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Ave Mailcode: CH8N | DNP,VARNISH DIPPER,[place] [address] | hormone deficiency | | | | [facility] | [address] [place], | ([facility]); 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 [...] change in DDAVp anticiapted. 5. MRI 03/20with PAPER MACHINE OPERATOR, RM labs I spent 40 [...] | | 2019 | Visit | | [address] | | | | | | [address] | | | | | | [place], [place] | | | | | | [address] | | | | | | [phone] | | | | | | | [...] [facility] | [address] | [place], [place] | | | [facility] | | [address] | | + + + + + [...] Way Lab) [place] | [place] | | [facility] [place] [address] [facility] | REGIONAL | | [place] [address] | LABORATORY | + + + + + + + + | Performing | Address | City/State/Zipcode | Phone Number | | Organization | | | | + + + + + | [facility] | [address] | [place] [address] | | | LABORATORY | | | [...] [place] | [place] | | [place] [address] [facility] | REGIONAL | | [place] [address] | LABORATORY | + + + + + + + + | Performing | Address | City/State/Zipcode | Phone Number | | Organization | | | | + + + + + | [facility] | [address] | [place] [address] | | | LABORATORY | | | [...] [place] | [place] | | [place] [address] | REGIONAL | | [place] [address] | LABORATORY | + + + + + + + + | Performing | Address | City/State/Zipcode | Phone Number | | Organization | | | | + + + + + | [facility] | [address] | [place] [address] | | | LABORATORY | | | [...] effective 12/26/08 | [place] | | [address] [facility]) [place] | REGIONAL | | [place] [address] [address] [facility] | LABORATORY | | [place] [address] | | + + + + + + + + | Performing | Address | City/State/Zipcode | Phone Number | | Organization | | | | + + + + + | [facility] | [address] | [place] [address] | | | LABORATORY | | | [...] | | | DEPARTMENT | | | [place] | | | OF | | | [...] | + + + + + | [facility] | [address] | [place] [address] | | | PATHOLOGY | [address] [...]
--- OUTSIDE RECORDS SUMMARY | ~2019-07-14 | XMS | Encounter Summary ---
Demographics + + + | Address | [address] | | | [place] [address] | + + + | Home Phone | | + + + | Preferred Language | Unknown | + + + | Marital Status | Single | + + + | Spiritism Affiliation | Unknown | + + + | Race | Unknown | + + + | Ethnic Group | Unknown | + + + Author + + + | Author | [facility] | | | and [place] | + + + | Organization | [facility] | | | and [...] Team Providers + +------+ + | Care Neurology Director Name | Role | Phone | [...] [place], | | | | | [place] [address] [place] | [place] [address] | | | | | [place] [address] | [phone] | | | | | [phone] | | | +--------+ + + + [...] [place] | | | | | | [address] | | | | | | | | +--------+---------+ + + + documented as of this encounter Visit Diagnoses Not on filedocumented in this encounter"
--- OUTSIDE RECORDS SUMMARY | ~2019-07-14 | XMS | Encounter Summary ---
Demographics + + + | Address | [address] | | | [place] [address] | + + + | Home Phone [...] Author | [facility] | | | and [place] | + + + | Organization | [facility] | [...] Providers + +------+ + | Care Dairy Feed Worker Name | Role | Phone | + +------+ + | Jinny Bergeron MD | PCP | | + +------+ + Reason for Visit +---------+ + | Reason | Comments | +---------+ + | Post Op | nasal surgery | +---------+ + Evaluate & Treat (Routine) +--------+--------+ + + + + | Status | Reason | Specialty | Diagnoses / | Referred By | Referred To | | | | | Procedures | Contact | Contact | +--------+--------+ + + + + | Closed | | Otolaryngolog | Diagnoses | [place], | Mckya Zafar | | | | y | Nasal post | BRETT Schneider | Josef, [address] | | | | | op/ Atena/ | [address] | [address] | | | | | Rubio/ Self | [place] | [address] | | | | | Procedures | [place], [place] | [place], | | | | | OFFICE | [address] | [place] [address] | | | | | VISIT | Phone: | Phone: | | | | | REGULAR | [phone] | [phone] | | | | | | Fax: | Fax: | | | | | | [phone] | [phone] | +--------+--------+ + + + + Encounter Details +--------+---------+ + + + | Date | Type | Department | Care Team | Description | +--------+---------+ + + + | 04/10/ | [facility] | [facility] | Mckay Zafar MD | Deviated nasal | | 2016 | Visit | OTOLARYNGOLOGY [address] | [address] [place] | septum (Primary Dx); | | | | [address] | [address] [place], | Hypertrophy of | | | | [place], [place] | [place] [address] | nasal turbinates | | | | [address] | [phone] | | | | | [phone] | | | +--------+---------+ + + + [...] + + + + | Pulse | 98 | 04/10/2016 8:02 AM | | | | | PDT | | + + + + + | Temperature | - | - | | + + + + + | Respiratory Rate | 18 | 04/10/2016 8:02 AM | | | | | PDT | | + + + + + | Oxygen Saturation | 98% | 04/10/2016 8:02 AM | | | | | PDT | | + + + + + | Inhaled Oxygen | - | - | | | Concentration | | | | + + + + + | Weight | 120.2 kg (265 lb) | 04/10/2016 8:02 AM | | | | | PDT | | + + + + + | Height | 172.7 cm (5' 8") | 04/10/2016 8:02 AM | | | | | PDT | | + + + + + | Body Mass Index | 40.29 | 04/10/2016 8:02 AM | | | | | PDT | | + + + + + documented in this encounter Progress Notes Mckay Zafar MD - 04/10/2016 9:50 AM PDT [facility] OTOLARYNGOLOGY [address] [facility] [address] OFFICE NOTE MCKAY ZAFAR MD Patient: FAROOQ LEMA Admitting: MR #: [id number] LOC: PT TYPE: Adm Date: 04/10/2016 : 1980 DATE OF VISIT: 04/10/2016 The patient is 2 days postoperative septoplasty and inferior turbinoplasties. He had a lo t of bleeding after his packing removal yesterday from the left nasal passage and a balloon was placed. He comes in today. The balloon is removed. The right nasal passage is stil l occluded again. It was able to be sprayed and suctioned to the point he to breathe throu gh the right side. The left side, in spite of using some silver nitrate and also spraying with the Aristides-Synephrine, continued to have a steady ooze of bleeding and finally the nasal pack was placed back into his nose and the patient was recommended to leave this in until about noon, tomorrow. MCKAY ZAFAR MD Dictated by MCKAY ZAFAR MD 04/10/2016 09:50:15 Transcribed on 04/10/2016 22:18:28 by bridgett job# [id number] Confirmation #: [id number] cc: JINNY BERGERON MD [facility], Mckay Bahena MD - 04/10/2016 9:47 AM PDTSee dictation # [id number] signed by Mckay Zafar MD at 04/10/2016 9:50 AM PDTdocumented in th is encounter Plan [...] [place] | | | | | | [address] | | | | | | | | +--------+---------+ + + + documented as of this encounter Visit Diagnoses + + | Diagnosis | + + | Deviated nasal septum - Primary | + + | Hypertrophy of nasal turbinates | + + documented in this encounter
--- OUTSIDE RECORDS SUMMARY | ~2019-07-14 | XMS | Encounter Summary ---
Demographics + + + | Address | [address] | | | [place] [address] | + + + | Home Phone [...] + + + | Author | [place] [employer] [facility] | + + + | Organization | [facility] | + + + | Address | Unknown | + + + | Phone | Unavailable | + + + Support + + +---------+ + | Name | Relationship | Address | Phone | + + +---------+ + | Alexandria Dixon | ECON | Unknown | | + + +---------+ + Care Team Providers + +------+ + | Care Air Intercept Controller Name | Role | Phone | [...] | | 2010 | Encounter | [address] | [place] | | | | | [place] Mailcode: CH8N | DNP,GUEST EXPERIENCE SPECIALIST,[place] [address] | | | | | [facility] | [address] [place], | | | | | and Healing, | [place] [address] | | | | | [facility] 1 | [phone] | | | | | [place], [place] | | | | | | [address] | | | | | | [phone] | | | +--------+ + + + [...] Rd | | | | | | [place], [place] | | | | | | [address] | | | | | | [phone] | | | | | | | | +--------+---------+ + + + documented as of this encounter Visit Diagnoses Not on filedocumented in this encounter"
--- OUTSIDE RECORDS SUMMARY | ~2019-07-14 | XMS | Encounter Summary ---
Demographics + + + | Address | [address] | | | [place] [address] | + + + | Home Phone [...] + + + | Author | [place] [employer] [facility] | + + + | Organization | [facility] | [...] Team Providers + +------+ + | Care Tungsten Tender Name | Role | Phone | + +------+ + | Jhonny Rodriguez DO | PCP | | + +------+ + Encounter Details +--------+------+ + + + | Date | Type | Department | Care Team | Description | +--------+------+ + + + | 06/01/ | Lab | Laboratory at [facility] | | Pituitary adenoma | | 2011 | | [address] | | ([facility]); Adrenal | | | | [place], [place] | | insufficiency ([facility]) | | | | [address] | | | | | | [phone] | | | +--------+------+ + + + [...] | | 2019 | Visit | | [address] | | | | | | [address] | | | | | | [place], [place] | | | | | | [address] | | | | | | [phone] | | | | | | | [...] | | | | PDT | insufficiency ([facility]) | results section. | + +--------+ + [...] + | [facility] | [address] | [place] [address] | | | [place] | | | [...] + | [facility] | [address] | [place] [address] | | | [place] | | | [...] + | [facility] | [address] | [place] [address] | | | [facility] | | | | + + + [...] + | [facility] | [address] | [place] [address] | | | [place] | | | [...] | + + + + + | [facility] | [address] | [place] [address] | | | [place] | | | [...] | | | LABORATORY | | | FIJIAN | | | SERVICES, | | | [...] MIRTHA WOODS | [address] | [place] [address] | | | [facility] | | | | | HEALTH + [...]
--- OUTSIDE RECORDS SUMMARY | ~2019-07-14 | XMS | Encounter Summary ---
Demographics + + + | Address | [address] | | | [place] [address] | + + + | Home Phone [...] + + + | Author | [place] [facility] | + + + | Organization | [facility] | [...] Team Providers + +------+ + | Care Cancer Registry Manager Name | Role | Phone | [...] | | | Hypopituitar | [place] | DNP,CULINARY ARTIST,[place] | | | | | ism Benign | TEJON | [address] | | | | | neoplasm of | HEALTH | Ave | | | | | pituitary | CENTER | [place], [place] | | | | | gland | [address] | [address] | | | | | Diabetes | [facility] | Phone: | | | | | insipidus | [address] | [phone] | | | | | 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: | | | | | hypofunction | [place], | [phone] | | | | | | [place] [address] | | | | | | Hypothyroidi | Phone: | | | | | | sm, | [phone] | | | | | | unspecified | Fax: | | | | | | Unspecified | [phone] | | | | | | | | | | | | | adrenocortic | | | | | | | al | | | | | | | insufficienc | | | | | | | y | | | | | | | Procedures | | | | | | | LA EST | | | | | | | PATIENT | | | | | | | LEVEL V LA | | | | | | | THR/PRPH/DX | | | | | | | INJ,IV PSH | | | | | | | LA INJ | | | | | | [...] Panhypopituitarism | | 2019 | Visit | [facility] [address] | [place], | ([facility]) (Primary Dx); | | | | Ave Mail[address]: [address] | DNP,CULINARY ARTIST,[place] [address] | Pituitary adenoma | | | | [facility] | [address] [place] | ([facility]) | | | | and Healing, | [place] [address] | | | | | [place] [address] | [phone] | | | | | [place], [place] | | | | | | [address] | | | | | | [phone] | | | +--------+---------+ + + + [...] in this encounter Progress Notes Cathie Fields, SANIYA,CULINARY ARTIST,[place] - 02/24/2019 9:00 AM PDTFormatting of this [...] cardiac stent place 02/2011 after a n [place]. Had further episode of CP 04/26 with [...] 0.70 - 1.30 mg/dL 1.07 EGFR - STATELESS >60 mL/min >60 EGFR NON -STATELESS >60 mL/min >60 SODIUM, PLASMA (LAB) 136 [...] (LAB) 0.70 - 1.30 mg/dL EGFR - STATELESS >60 mL/min EGFR NON -STATELESS >60 mL/min SODIUM, PLASMA (LAB) 136 - [...] Pt stable and continues to follow with teacher hearing impaired. He reports taking meds more regularly and [...] mths 07/28. With labs CATHIE FIELDS DNP, CULINARY ARTIST, [place] Apparatus Repair Mechanic [facility] [address] [id number] EXAM: MRI PITUITARY WITHOUT AND WITH CONTRAST [...] 0.70 - 1.30 mg/dL 0.90 EGFR - STATELESS >60 mL/min >60 EGFR NON -STATELESS >60 mL/min >60 SODIUM, PLASMA (LAB) 136 [...] (LAB) 0.70 - 1.30 mg/dL EGFR - STATELESS >60 mL/min EGFR NON -STATELESS >60 mL/min SODIUM, PLASMA (LAB) 136 - [...] with labs CATHIE FIELDS DNP, TOMER, BECCA Apparatus Repair Mechanic [facility] [place] [address] [facility] [id number] signed by Cathie Fields DNP,TOMER,BECCA at 03/01/2019 [...] Rd | | | | | | [place], [place] | | | | | | [address] | | | | | | [phone] | | | | | | | [...] [facility] | [address] | [place] [address] | | | SERVICES, CORE | KIMO [...] | + + + + + | [facility] | [address] | [place] [address] | | | SERVICES, CORE | PARK [...] | | | LABORATORY | | | STATELESS | | | SERVICES, | | | [...] [facility] | [address] | [place] [address] | | | SERVICES, CORE | PARK [...] | + + + + + | [facility] | [address] | [place] [address] | | | SERVICES, CORE | KIMO [...] | | | this test in the [employer] | | | | | | Laboratory Test | | | | | | Directory | | | | | | (Social Tools.Neokinetics).Performed | | | | | | by [place],[address] | | | | | | [address], [facility] | | | | | | [address] | | | | | | [phone].Social Tools. | | | | | | [facility], Ty Walter MD, | | | [...] [facility] | [address] | [place], [place] | | | [facility] | | [address] | | + + + + + [...] + + + | Test performed in [facility] lab. New reference range in effect | [facility] | | 2-18. | LABORATORY | | | VITALY RANKIN | + + + + + + + + | Performing | Address | City/State/Zipcode | Phone Number | | Organization | | | | + + + + + | [facility] | [address] | [place] [address] | | | SERVICES, VITALY | KIMO [...] | | | | | | by [place],[address] | | | | | | [address], [facility] | | | | | | [address] | | | | | | [phone].[facility]. | | | | | | Ty [...] [facility] | [address] | [place], [place] | | | [place] [place] [place] | | [address] | | + + + + + [...] | + + + + + | [facility] | [address] | [place] [address] | | | SERVICES, CORE | KIMO [...]
--- OUTSIDE RECORDS SUMMARY | ~2019-07-14 | XMS | Encounter Summary ---
Demographics + + + | Address | [address] | | | [place] [address] | + + + | Home Phone [...] + + + | Author | [place] [employer] [facility] | + + + | Organization | [facility] [...] 02/18/ | Telephone | Neurosurgery at | [place], | Refill Request | | 2012 | | [facility] [address] | [place], | | | | | [place] Mailcode: CH8N | DNP,OUTPATIENT DIETITIAN,[place] [address] | | | | | [facility] | [address] [place], | | | | | and Healing, | [place] [address] | | | | | Building 1 | [phone] | | | | | [place], [place] | | | | | | [address] | | | | | | [phone] | | | +--------+ + + + [...] Rd | | | | | | [place], [place] | | | | | | [address] | | | | | | [phone] | | | | | | | | +--------+---------+ + + + documented as of this encounter Visit Diagnoses Not on filedocumented in this encounter"
--- OUTSIDE RECORDS SUMMARY | ~2019-07-14 | XMS | Encounter Summary ---
Demographics + + + | Address | [address] | | | [place] [address] | + + + | Home Phone [...] + + + | Author | [place] [employer] [facility] | + + + | Organization | [facility] | + [...] Team Providers + +------+ + | Care Junior Analyst Name | Role | Phone | + +------+ + | No Pcp Per Patient | PCP | Unavailable | + +------+ + Encounter Details +--------+ + + + + | Date | Type | Department | Care Team | Description | +--------+ + + + + | 04/05/ | Packaging Manager | Neurosurgery at | [place], | | | 2010 | | [facility] [address] | [place] | | | | | [place] Mailcode: CH8N | DNP,PAPER SHEETER,[place] [address] | | | | | [facility] | [address] [place], | | | | | and Healing, | [place] [address] | | | | | Building | [phone] | | | | | Floor [place], [place] | | | | | | [address] | | | | | | [phone] | | | +--------+ + + + [...] Rd | | | | | | [place], [place] | | | | | | [address] | | | | | | [phone] | | | | | | | | +--------+---------+ + + + documented as of this encounter Visit Diagnoses Not on filedocumented in this encounter"
--- OUTSIDE RECORDS SUMMARY | ~2019-07-14 | XMS | Encounter Summary ---
Demographics + + + | Address | [address] | | | [place] [address] | + + + | Home Phone [...] + + + | Author | [place] [employer] [facility] | + + + | Organization | [facility] | [...] Team Providers + +------+ + | Care Client Reporting Associate Name | Role | Phone | + +------+ + | No Pcp Per Patient | PCP | Unavailable | + +------+ + Encounter Details +--------+ + + + + | Date | Type | Department | Care Team | Description | +--------+ + + + + | 01/24/ | Bank Analyst | Neurosurgery at | [place], | Pituitary Adenoma | | 2007 | | [facility] [address] | [place], | ([facility]); 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Ave Mailcode: CH8N | DNP,HAMMERER,[place] [address] | Hormone Deficiency | | | | [place] [facility] | [address] [place], | (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); | | | | Building 1 | [phone] | Hypogonadism Male; | | | | [place], [place] | | Hypothyroid; Adrenal | | | | [address]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 ([facility]) | | | | [phone] | | | +--------+ + + + [...] | | 2019 | Visit | | [address] | | | | | | [address] | | | | | | [place], [place] | | | | | | [address] | | | | | | [phone] | | | | | | | | +--------+---------+ + + + documented as of this encounter Procedures + +--------+ + + + | Procedure Name | Priori | Date/Time | Associated Diagnosis | Comments | | | ty | | | | + +--------+ + + + | MRI BRAIN WWO | Routin | 03/10/2008 | Pituitary Adenoma | Results for this | | CONTRAST | e | 8:12 AM | (HCC) Growth | procedure are [...] this encounter Results MRI BRAIN WWO CONTRAST (03/10/2008 8:12 AM PDT) + + + + + + | Component | Value | Ref Range | Performed | Pathologist | | | | | At | Signature | + + + + + + | MR BRAIN | MRI brain with and | | | | | WWO | without | | | | | CONTRAST | contrast-tailored to | | | | | | evaluate thepituitary | | | | | | glandHISTORY: Pituitary | | | | | | adenomaTECHNIQUE: The | | | | | | following sequences were | | | | | | acquired:1. Sagittal | | | | | | T1 through the | | | | | | pituitary.2. Coronal T1 | | | | | | and T2 through the | | | | | | pituitary gland.3. Post | | | | | | gadolinium (20 cc | | | | | | Omniscan intravenously) | | | | | | T1 through thepituitary | | | | | | gland with and without | | | | | | fat suppression.4. | | | | | | Coronal dynamic series | | | | | | with contrast through | | | | | | the pituitary | | | | | | gland.COMPARISON: MR | | | | | | pituitary 10/31/05 | | | | | | IFINDINGS: The pituitary | | | | | | gland remains at the | | | | | | upper limits of normal | | | | | | for size,unchanged from | | | | | | the prior exam, without | | | | | | a discrete lesion | | | | | | identified.Mucosal | | | | | | thickening is seen in | | | | | | the sphenoid sinuses | | | | | | bilaterally.There is no | | | | | | displacement of the | | | | | | optic chiasm. | | | | | | Pituitary | | | | | | infundibulumis | | | | | | unremarkable. No areas | | | | | | of delayed enhancement | | | | | | are seen on thedynamic | | | | | | series. Survey images | | | | | | through the rest of the | | | | | | brain areotherwise | | | | | | unremarkable.IMPRESSION: | | | | | | 1. Stable MR of the | | | | | | pituitary gland, with | | | | | | the gland size | | | | | | remainingat the upper | | | | | | limits of normal, | | | | | | unchanged, with no | | | | | | discretelesion/adenoma | | | | | | identified.I have | | | | | | personally viewed this | | | | | | procedure/exam and | | | | | | reviewed this | | | | | | report.STATUS FINAL / | | | | | | Dr. JO WEST | | | | + + + + + + + + | Specimen | + + | | + + + +---------+ + + | Performing | Address | City/State/Zipcode | Phone Number | | Organization | | | | + +---------+ + + | [facility] DEPARTMENT OF | | | [...]
--- OUTSIDE RECORDS SUMMARY | ~2019-07-14 | XMS | Encounter Summary ---
Demographics + + + | Address | [address] | | | [place] [address] | + + + | Home Phone [...] + + + | Author | [place] [employer] [facility] | + + + | Organization | [facility] | + [...] Team Providers + +------+ + | Care Mine Geologist Name | Role | Phone | + [...] | | | | | adenoma | DNP,WELFARE CASE WORKER,[place] | Kit Tanner | | | | | (HCC) | [address] | [address] | | | | | Procedures | Ave | Mailcode: | | | | | MRI | [facility] [place] | [address] | | | | | PITUITARY | [address] | [place] | | | | | WWO CONTRAST | Phone: | Research | | | | | [place] MRI | [phone] | [place] | | | | | BRAIN COMBO | Fax: | [place], [place] | | | | | | [phone] | [address] | | | | | | | Phone: | | | | | | | [phone] | | | | | | | Fax: | | | | | | | [phone] | +--------+--------+ + + + + Encounter Details +--------+ + + + + | Date | Type | Department | Care Team | Description | +--------+ + + + + | 09/06/ | MyChart | Neurosurgery at | Donnie, | RE: Just a question | | 2013 | Encounter | [facility] [address] | Cathie, | | | | | Ave Mailcode: CH8N | DNP,WELFARE CASE WORKER,[place] [address] | | | | | [facility] | Nura Loya, | | | | | jannette Marti, | [place] [address] | | | | | [place] [address] | [phone] | | | | | [place], [place] | | | | | | [address] | | | | | | [phone] | | | +--------+ + + + [...] | | 2019 | Visit | | [address] | | | | | | [address] | | | | | | [place], [place] | | | | | | [address] | | | | | | [phone] | | | | | | | [...] | | + +---------+ + + | [facility] DEPARTMENT OF | | | | | RADIOLOGY | | | | + +---------+ + + documented in this encounter Visit Diagnoses + + | Diagnosis | + + | Pituitary adenoma (HCC) - Primary Benign neoplasm of pituitary gland and | | craniopharyngeal duct (pouch) | + + documented in this encounter"
--- OUTSIDE RECORDS SUMMARY | ~2019-07-14 | XMS | Encounter Summary ---
Demographics + + + | Address | [address] | | | [place] [address] | + + + | Home Phone [...] | Author | [facility] | | | and [place] | + + + | Organization | [facility] | | [...] Team Providers + +------+ + | Care Early Childhood Educator Aide Name | Role | Phone | [...] | Sumanth Champion | | | | Monologist / | Obstructive | Bren H, | D, PA [address] | | | | Sleep | sleep apnea | [address] | | | | Medicine | (adult) | NW | [place], | | | | | (pediatric) | [place] | [place] [address] | | | | | [address] Y[address] | [address] | Phone: | | | | | [address] | [place], | [phone] | | | | | [address] | [place] | Fax: | | | | | CARDS | [address] | [phone] | | | | | Procedures | Phone: | | | | | | [place] OFFICE | [phone] | | | | | | OUTPATIENT | Fax: | | | | | | VISIT 25 | [phone] | | | | | | MINUTES | | | | | | | OFFICE VISIT | | | | | | | EXTENDED | | | +--------+--------+ + + + + Encounter Details +--------+---------+ + + + | Date | Type | Department | Care Team | Description | +--------+---------+ + + + | 01/14/ | Office | [facility] | Sumanth Champion PA | MALLIKA on CPAP (Primary | | 2018 | Visit | SLEEP DISORDER [address] | [address] | Dx) | | | | [address] [place] | [place] | | | | | [place] [address] | [address] | | | | | [phone] | | | +--------+---------+ + + + [...] + + + | Blood Pressure | 130/78 | 01/14/2018 2:04 PM | | | | | PDT | | + + + + + | Pulse | 78 | 01/14/2018 2:04 PM | | | | | PDT | | + + + + + | Temperature | - | - | | + + + + + | Respiratory Rate | 16 | 01/14/2018 2:04 PM | | | | | PDT | | + + + + + | Oxygen Saturation | 98% | 01/14/2018 2:04 PM | | | | | PDT | | + + + + + | Inhaled Oxygen | - | - | | | Concentration | | | | + + + + + | Weight | 126.6 kg (279 lb 1.6 | 01/14/2018 2:04 PM | | | | oz) | PDT | | + + + + + | Height | - | - | | + + + + + | Body Mass Index | 42.44 | 07/23/2016 3:07 PM | | | | | PST | | + + + + + documented in this encounter Progress Notes Kristen Saravia, Facility Maintenance Technician - 01/14/2018 2:30 PM PDTFormatting of this note might b e different from the original. 01/14/18 1300 Bolanos Depression Inventory-II Depression Score 22 - Moderate depression Insomnia Severity Index Insomnia Severity Index 15 Hornbeck Sleepiness Scale Sitting and reading 1 Watching TV 1 Sitting, inactive in a public place (e.g. a theatre or a meeting) 0 As a passenger in a car for an hour without a break 1 Lying down to rest in the afternoon when circumstances permit 3 Sitting and talking to someone 0 Sitting quietly after a lunch without alcohol 1 In a car, while stopped for a few minutes in traffic 0 Total score 7 SF-36v2 Score PF 40.32 RP 30.21 BP 26.52 GH 37.97 VT 31.8 SF 32.27 RE 24.83 MH 27.32 PCS 37.93 MCS 26.15 oram, BRETT Schneider - 02/2018 2:30 PM PDT Subjective: Patient ID: Amairani Ulloa is a 37 y.o. male. HPI last office visit: 02/18/2016 date of polysomnography: 12/10/2006 AHI: 38.9 O2%: 75% with 19.7 minutes below 88% Machine type: ResMed S9 with nasal mask obtained from: [facility] in [place] pressure: 12-18 cm Median: 12.6 cm 95%: 14.2 cm maximum: 15.1 cm Nights using CPAP: 229/369 145/181 137/188 122/182 204/365 % of nights >4 hours: 28% 59% 55% 45% 27% average usage (all nights): 2:29 3:55 3:40 3:13 2:16 average usage (nights used): 4:00 4:54 5:03 4:49 4:04 AHI: 0.4 Shai comes in for CPAP compliance. He has a history of struggling with wearing his CPAP co nsistently and with wearing it for the duration of his sleep. This has continued. He did w ell with CPAP when he began, but he has struggled since. He has a variety of reasons for wh y he hasn't used his CPAP. He understands that he doesn't sleep well without his CPAP and t he health risks involved with not treating his apnea, but he continues to avoid wearing it. We again discussed the importance of wearing his CPAP 100% of the time he is asleep in orde r to develop it into a regular part of his sleep routine. He has a history of two AMI's and has diabetes. This motivates him to treat his apnea. I have discussed the download in detail. [...] for him to use his CPAP. BP 130/78 | Pulse 78 | Resp 16 | Wt 126.6 kg (279 lb 1.6 oz) | SpO2 98% | BMI 42.44 kg /m Review of Systems Objective: Physical Exam Assessment: Problem #1: OBSTRUCTIVE SLEEP APNEA (ODS95-P83.33) This is controlled with CPAP. He continues to struggle with wearing his CPAP consistently and with wearing it for the duration of the night. Plan: 1. He is to continue with CPAP indefinitely. 2. I have recommended that he continue to work toward wearing his CPAP 100% of the time he is asleep. 3. He is to go to [facility] in [place] to replace his mask and any other necessary equipment. I will follow up again in 6 months, sooner prn. Fifteen minutes were spent [id number], w ith the majority of time spent in counseling. Sumanth Champion PA-C documented in this enco unter Plan [...] [place] | | | | | | [address] | | | | | | | | +--------+---------+ + + + documented as of this encounter Visit Diagnoses + + | Diagnosis | + + | MALLIKA on CPAP - Primary Obstructive sleep apnea (adult) (pediatric) | + + documented in this encounter"
--- OUTSIDE RECORDS SUMMARY | ~2019-07-14 | XMS | Encounter Summary ---
Demographics + + + | Address | [address] | | | [place] [address] | + + + | Home Phone | | + + + | Preferred Language | Unknown | + + + | Marital Status | Single | + + + | Amish Affiliation | Unknown | + + + | Race | Unknown | + + + | Ethnic Group | Unknown | + + + Author + + + | Author | [facility] | | | and [place] | + + + | Organization | [facility] | | | and [...] Team Providers + +------+ + | Care Clothes Marker Name | Role | Phone | + [...] Closed | | Otolaryngolog | Diagnoses | English, | Mckay Zafar | | | | y | Nasal post | BRETT Schneider | Josef, [address] | | | | | op/ [employer]/ | [address] | [address] | | | | | Rubio/ Self | [place] | [address] | | | | | Procedures | [place], [place] | [place], | | | | | OFFICE | [address] | [place] [address] | | | | | VISIT | Phone: | Phone: | | | | | REGULAR | [phone] | [phone] | | | | | | Fax: | Fax: | | | | | | [phone] | [phone] | +--------+--------+ + + + + Encounter Details +--------+---------+ + + + | Date | Type | Department | Care Team | Description | +--------+---------+ + + + | 04/10/ | Office | [facility] [place] | Mckay Zafar MD | Deviated nasal | | 2016 | Visit | OTOLARYNGOLOGY [address] | [address] [place] | septum (Primary Dx); | | | | [address] | [address] [place], | Hypertrophy of | | | | [place], [place] | [place] [address] | nasal turbinates | | | | [address] | [phone] | | | | | [phone] | | | +--------+---------+ + + + [...] MD - 04/10/2016 9:50 AM PDT [facility] [address] [facility] [address] OFFICE NOTE MCKAY ZAFAR MD Patient: FAROOQ LEMA Admitting: MR #: [id number] LOC: PT TYPE: Adm Date: 04/10/2016 : [...] Transcribed on 04/10/2016 22:18:28 by bridgett job# [id number] Confirmation #: [id number] cc: JINNY BERGERON MD [facility], Mckay Bahena MD - 04/10/2016 9:47 AM PDTSee dictation # [id number] signed by Mckay Zafar MD at 04/10/2016 [...] [place] | | | | | | [id number] | | | | | | | | +--------+---------+ + + + documented as of this encounter Visit Diagnoses + + | Diagnosis | + + | Deviated nasal septum - Primary | + + | Hypertrophy of nasal turbinates | + + documented in this encounter
--- OUTSIDE RECORDS SUMMARY | ~2019-07-14 | XMS | Encounter Summary ---
Demographics + + + | Address | [address] | | | [place] [address] | + + + | Home Phone [...] Team Providers + +------+ + | Care Wall Steamer Name | Role | Phone | + [...] as of this encounter Progress Notes Interface, Charge Master Coordinator In - 08/27/2005 2:09 AM PST [id number] 08/22/2005 08/22/2005 [id number] TOREY TRIVEDI [facility] [address] [place] [address] or August 22, 2005 Shravan Montanez M.D. [address] [place] [address] RE: FAROOQ LEMA MR #: [id number] Dear doctor: It is our pleasure to see Mr. Lema in clinic today. 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 He had vomiting and headache which started [...] are going to have Dr. Guillaume, our cultural centre manager, see if he has any evidence of [...] Additionally, I discussed the case with our cultural centre manager and with Dr. Styles and we do not feel there is any need for him to be on Decadron, and we are going to discontinue it today. Sincerely, Darren Coles M.D. / [id number] / [id number] / [id number] / [id number] documented i n this encounter Plan of Treatment +--------+---------+ + + + | Date | Type | Specialty | Care Team | Description | +--------+---------+ + + + | 08/15/ | Office | Cardiology | Zuleika Hernandez, | | | 2019 | Visit | | [address] | | | | | | [address] | | | | | | [place], [place] | | | | | | [address] | | | | | | [phone] | | | | | | | | +--------+---------+ + + + documented as of this encounter Visit Diagnoses Not on filedocumented in this encounter"
--- OUTSIDE RECORDS SUMMARY | ~2019-07-14 | XMS | Encounter Summary ---
Demographics + + + | Address | [address] | | | [place] [address] | + + + | Home Phone [...] + + + | Author | [place] [employer] [facility] | + + + | Organization | [facility] | [...] Providers + +------+ + | Care Kettle Worker Name | Role | Phone | [...] Refill Request | | 2014 | | [facility] [address] | [place], | | | | | [place] Mailcode: CH8N | DNP,TRAIN ATTENDANT,[place] [address] | | | | | [facility] | [address] [place], | | | | | and Healing, | [place] [address] | | | | | Building 1 | [phone] | | | | | [place], [place] | | | | | | [address] | | | | | | [phone] | | | +--------+--------+ + + + [...] Rd | | | | | | [place], [place] | | | | | | [address] | | | | | | [phone] | | | | | | | | +--------+---------+ + + + documented as of this encounter Visit Diagnoses Not on filedocumented in this encounter"
--- OUTSIDE RECORDS SUMMARY | ~2019-07-14 | XMS | Encounter Summary ---
Demographics + + + | Address | [address] | | | [place] [address] | + + + | Home Phone [...] + + | Author | [place] [employer] [facility] | + + + | Organization | [facility] [...] Providers + +------+ + | Care Gas Fitter Helper Name | Role | Phone | [...] Meds | | 2008 | Encounter | [facility] | MD | | | | | Healing [address] | | | | | | [address] [place] Mailcode: | | | | | | [facility] | | | | | | Health and Healing, | | | | | | Building | | | | | | Floor [place], [place] | | | | | | [address] | | | | | | [phone] | | | +--------+ + + + [...] Rd | | | | | | [place], [place] | | | | | | [address] | | | | | | [phone] | | | | | | | | +--------+---------+ + + + documented as of this encounter Visit Diagnoses Not on filedocumented in this encounter"
--- OUTSIDE RECORDS SUMMARY | ~2019-07-14 | XMS | Encounter Summary ---
Demographics + + + | Address | [address] | | | [place] [address] | + + + | Home Phone | | + + + | Preferred Language | Unknown | + + + | Marital Status | Single | + + + | Mormon Affiliation | Unknown | + + + | Race | Unknown | + + + | Ethnic Group | Unknown | + + + Author + + + | Author | [facility] | | | and [place] | + + + | Organization | [facility] | | | [...] Team Providers + +------+ + | Care Laborer High Density Press Name | Role | Phone | + [...] | | | BMI of | | [place], | | | | | 45.0-49.9, | | [place] [address] | | | | | adult (HCC) | | Phone: | | | | | Weight | | [phone] | | | | | loss, | | Fax: | | | | | non-intentio | | [phone] | | | | | nal | [...] | | | | | [address] | [place] | | | | | [place], [place] | [address] | | | | | [address] | [phone] | | | | | [phone] | | | +--------+ + + + [...] intradermal injection, | Tayla Lazo, | Bev Baehna | | IV | tolerated well; no [...] [place] | | | | | | [address] | | | | | | | [...]
--- OUTSIDE RECORDS SUMMARY | ~2019-07-14 | XMS | Encounter Summary ---
Demographics + + + | Address | [address] | | | [place] [address] | + + + | Home Phone [...] + + + | Author | [place] [employer] [facility] | + + + | Organization | [facility] [...] Team Providers + +------+ + | Care Bridge Attacher Name | Role | Phone | + [...] | | | | ENT / | [place], [place] | [address] | | | | | OTOLARYNGOLO | [address] | for Health | | | | | [place] | | and Healing, | | | | | | | Building 1, | | | | | | | 5th Floor | | | | | | | [place], [place] | | | | | | | [address] | | | | | | | Phone: | | | | | | | [phone] | | | | | | | Fax: | | | | | | | [phone] | +--------+--------+ + + + + Reason [...] | | | | | adenoma | DNP,SAFETY AND SECURITY OFFICER,[place] | [address] | | | | | (HCC) | [address] | [address] | | | | | Growth | Ave | [place], [place] | | | | | hormone | [place], [place] | [address] | | | | | deficiency | [address] | | | | | | (HCC) | Phone: | | | | | | Diabetes | [phone] | | | | | | insipidus | Fax: | | | | | | (HCC) | [phone] | | | | | | Hypogonadism [...] (Primary | | 2008 | Visit | [facility] & | | [place]) | | | | Healing [address] | | | | | | [address] Mailcode: | | | | | | [facility] | | | | | | Health and Healing, | | | | | | Building 1, | | | | | | Floor [place], [place] | | | | | | [address] | | | | | | [phone] | | | +--------+---------+ + + + [...] try Nortriptyline as directed. Referral made to [facility] E[facility] clinic- please schedule. 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 Cerebellar testing shows normal vzywwk-tn-epvu and finger tapping. On gait testing, he has a normal casual gait. He is able to walk on his heels and toes in t andem. He has a negative Romberg. No pronator drift. Ancillary Studies: Lab Results Lab Test Name Results Date/Time TSH 0.26 04/03/09 MR BRAIN WWO CONTRAST (no units) Date Value 04/03/09 Med Rec No: [id number] Name: FAROOQ LEMA Birthday: 1980 Sex: M Alias: Patient Location: [facility] Status: Outpatient Active Ordering Physician: Desi YU, N.PRobin MBR-+ MRI BRAIN W/WO CONTRAST completed on 04/03/2009 8:55 AM [id number] RESULT: MR OF THE PITUITARY: 04/03/2009 Dictated [...] GROVE STATUS PRELIMINARY - UNSIGNED / Yulissa oTrres Impression: Farooq Redman is a 29 y.o. [...] Rd | | | | | | [place], [place] | | | | | | [address] | | | | | | [phone] | | | | | | | | +--------+---------+ + + + documented as of this encounter Visit Diagnoses + + | Diagnosis | + + | Sinus pain - Primary Other diseases of nasal cavity and sinuses | + + documented in this encounter
--- OUTSIDE RECORDS SUMMARY | ~2019-07-14 | XMS | Encounter Summary ---
Demographics + + + | Address | [address] | | | [place] [address] | + + + | Home Phone [...] + + + | Author | [place] [employer] [facility] | + + + | Organization | [facility] | [...] Team Providers + +------+ + | Care Media Consultant Outside Sales Name | Role | Phone | [...] | | | | | adenoma | DNP,VESSEL ENGINEER,[place] | [address] | | | | | (HCC) | [address] | [address] | | | | | Growth | Ave | Mailcode: | | | | | hormone | [place], [place] | [address] | | | | | deficiency | [address] | [place] | | | | | ([facility]) | Phone: | Research | | | | | Diabetes | [phone] | Center | | | | | insipidus | Fax: | [place], [place] | | | | | ([facility]) | [phone] | [address] | | | | | Hypogonadism | | Phone: | | | | | male | | [phone] | | | | | Hypothyroid | | Fax: | | | | | Adrenal | | [phone] | | | | | insufficienc | | | | | | | y ([facility]) | | | | | | | Procedures | | | | | | | MRI BRAIN | | | | | | | WWO CONTRAST | | | +--------+--------+ + + + + Encounter Details +--------+ + + + + | Date | Type | Department | Care Team | Description | +--------+ + + + + | 04/03/ | Hospital | Radiology/Imaging | | | | 2008 | Encounter | Lab at [facility] [address] | | | | | [address] [place] Mailcode: | | | | | | [facility] [place] for | | | | | | Health and Healing, | | | | | | Building [address], [facility] | | | | | | Floor [place], [place] | | | | | | [address] | | | | | | [phone] | | | +--------+ + + + [...] | | 2019 | Visit | | [address] | | | | | | [address] | | | | | | [place], [place] | | | | | | [address] | | | | | | [phone] | | | | | | | | +--------+---------+ + + + documented as of this encounter Procedures + +--------+ + + + | Procedure Name | Priori | Date/Time | Associated Diagnosis | Comments | | | ty | | | | + +--------+ + + + | MRI BRAIN WWO | Routin | 04/03/2009 | Pituitary Adenoma | Results for this | | CONTRAST | e | 8:55 AM | (HCC) Growth | procedure are [...] | MR BRAIN | Med Rec No: [id number] | | | | | WWO | Name: | | | | | CONTRAST | FAROOQ LEMA | | | | | | Birthday: 1980 | | | | | | Sex: M | | | | | | Alias:Patient Location: | | | | | | [id number]: Outpatient | | | | | | ActiveOrdering | | | | | | Physician: DONNIE, | | | | | | CATHIE Monroy NChinoMBR-+ | | | | | | MRI BRAIN W/WO CONTRAST | | | | | | completed on 04/03/2009 | | | | | | 8:55 AMAccession # | | | | | | [id number]:MR OF THE | | | | | [...] MR | | | | | | 12/08/2006 is used.The | | | | | [...] | | | | | | defined. PERFECTO, | | | | | | M.AnnaReviewer: ,STATUS | | | | | | [...]
--- OUTSIDE RECORDS SUMMARY | ~2019-07-14 | XMS | Encounter Summary ---
Demographics + + + | Address | [address] | | | [place] [address] | + + + | Home Phone [...] + + + | Author | [place] [employer] [facility] | + + + | Organization | [facility] | [...] Team Providers + +------+ + | Care Sleeve Bottom Feller Name | Role | Phone | + +------+ + | No Pcp Per Patient | PCP | Unavailable | + +------+ + Encounter Details +--------+ + + + + | Date | Type | Department | Care Team | Description | +--------+ + + + + | 10/31/ | Office | [facility], | Clinic, [...] as of this encounter Progress Notes Interface, J2Ee Developer In - 11/08/2005 2:05 AM [facility] [id number] TOREY TRIVEDI V Clinic Date: 10/31/2005 Clinic: Pituitary Clinic Referring Physician: Shravan Montanez Attending Physician: Lb Guillaume M.D., Ph.D. 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 This visit is staffed by Dr. Lb Guillaume. 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 At this visit, he notes that he continues to get better. He has had a significant improvement in headaches. He continues to have some fat filling around his collar bones and abdominal discomfort. He notes some sleep disturbance with difficulty and staying asleep. He also notes increased weight particularly around his midsection with significant thirst and increased urination. He reports it is hourly by day and night, and he notes increasing snoring. He does note improvement in blood pressure. Exact date of onset of symptoms is unknown. Review of Systems: Negative other than stated above. Medications: Hydrocortisone 20 mg q. day and levothyroxine 175 mcg q. day. Physical Examination: General: A pleasant gentleman in no acute distress, well nourished and well developed. HEENT: Normocephalic and atraumatic. Pupils are equally responsive and reactive to light. Extraocular movements are intact. Visual godinez are normal to confrontation. There is some facial rounding. No facial plethora, frontal bossing, protruding jaw, or gaps between his teeth. No acne. Neck: With mild dorsocervical hump and supraclavicular fat pad filling. No lymphadenopathy or jugular venous distention. Thyroid is normal in size and texture without bruits. Heart: Regular rate and rhythm. No murmurs, rubs, or gallops. Breasts: Deferred. : Deferred. Skin: Without hyperpigmentation. It is not dry, sweaty, or oily. Abdomen: Positive bowel tones, nontender, and nondistended. Truncal obesity. No violaceous striae. Extremities: Upper Extremities: There is proximal muscle weakness. No carpal tunnel syndrome, hand enlargement, or brittle fingernails. Lower Extremities: Without edema. Neurologic: Alert and oriented x3. Motor and sensory 5/5 throughout. No delayed relaxation phase of the brachial reflex. Laboratory Data: Basic metabolic panel is unremarkable. Sodium 139, potassium 3.6, and glucose 96. Testosterone, TSH, free T4, prolactin, and cortisol pre and post stimulation with 1 mcg of Cortrosyn, ACTH, and IGF-1 are pending at the time of dictation. MRI indicates no recurrent mass identified. Assessment: Amairani Tyler appears to be doing well postoperatively with resolution of many of his symptoms. He has noted he has increased urination. We discussed the possibility of diabetes insipidus and the need for DDAVP. Plan: 1. Pituitary function. 1.1. Adrenal: Cortrosyn stimulation test is pending to evaluate taqvcnyultic-dwaubrwrz-garxhqz axis function. If functional, we will discontinue hydrocortisone therapy. 2. Thyroid: The patient has been euthyroid. His free T4 is pending. We will reevaluate the thyroid dose in the light of current testing. 3. Growth hormone levels: IGF-1 is pending. If indicated, we will return the patient for growth hormone stimulation test with a view of beginning growth hormone replacement therapy. 4. Gonadal: We will reevaluate his testosterone levels and treat with AndroGel if indicated. 5. Prolactin: Prolactin levels have been normal. No dopamine agonist therapy is indicated. 6. Vasopressin: The patient complains of polyuria and polydipsia. Electrolytes are currently normal. We will begin DDAVP therapy with titration. 7. Long-term followup is anticipated in 12 months with MRI and further endocrine testing. Procedure Note: In addition to my consultation, I performed a 1-mcg Cortrosyn stimulation test to test for pituitary-caused adrenal insufficiency in light of the patient's pituitary symptoms. Risks and benefits of the procedure were discussed with patient and questions were answered. After an IV was placed in the patient's left arm, baseline cortisol and ACTH as well as other labs were drawn. Cortrosyn 1 mcg/mL was administered to the patient, and a second cortisol was drawn one-half hour later. The IV was then removed and the site dressed. There were no adverse effects or events. I spent 30 minutes in evaluation of this patient, 60 minutes in dynamic endocrine testing. Total visit time was 90 minutes of which over 50% was spent in coordination of this patient's care. Shruti Landa. Lb Guillaume M.D., Ph.D. / [id number] / [id number] / [id number] / [id number] E: 11/03/2005 josé miguelw cc: Shravan Montanez M.D. [address] [place] [address] Electronically signed by Lb Guillaume (Bill) 11-07-2005 05:18:49 PM documented i n this encounter Plan [...] [address] | | | | | | [place] | | | | | | [address] | | | | | | [phone] | | | | | | | | +--------+---------+ + + + documented as of this encounter Visit Diagnoses Not on filedocumented in this encounter"
--- OUTSIDE RECORDS SUMMARY | ~2019-07-14 | XMS | Encounter Summary ---
Demographics + + + | Address | [address] | | | [place] [address] | + + + | Home Phone [...] + + + | Author | [place] [employer] [facility] | + + + | Organization | [facility] | + + + | Address | Unknown | + + + | Phone | Unavailable | + + + Support + + +---------+ + | Name | Relationship | Address | Phone | + + +---------+ + | Alexandria Dixon | ECON | Unknown | | + + +---------+ + Care Team Providers + +------+ + | Care Head Scorer Name | Role | Phone | [...] Appointment | | 2008 | Encounter | [facility] [address] | Cathie | | | | | [place] Mailcode: CH8N | DNP,RFID SYSTEMS ENGINEER,[place] [address] | | | | | [facility] | [address] [place], | | | | | and Healing, | [place] [address] | | | | | [facility] [address] | [phone] | | | | | [place], [place] | | | | | | [address] | | | | | | [phone] | | | +--------+ + + + [...] Rd | | | | | | [place], [place] | | | | | | [address] | | | | | | [phone] | | | | | | | | +--------+---------+ + + + documented as of this encounter Visit Diagnoses Not on filedocumented in this encounter"
--- OUTSIDE RECORDS SUMMARY | ~2019-07-14 | XMS | Encounter Summary ---
Demographics + + + | Address | [address] | | | [place] [address] | + + + | Home Phone | | + + + | Preferred Language | Unknown | + + + | Marital Status | Single | + + + | Evangelical Affiliation | Unknown | + + + | Race | Unknown | + + + | Ethnic Group | Unknown | + + + Author + + + | Author | [facility] | | | and [place] | + + + | Organization | [facility] | [...] Team Providers + +------+ + | Care Launch Leader Name | Role | Phone | [...] + + | 08/20/ | Office | [facility] | Sumanth Champion PA | MALLIKA on CPAP (Primary | | 2016 | Visit | SLEEP DISORDER [address] | [address] | Dx) | | | | [address] | [place] | | | | | [place] [address] | [address] | | | | | [phone] | | | +--------+---------+ + + + [...] Exam Assessment: Problem #1: OBSTRUCTIVE SLEEP APNEA ([id number]) This is well controlled with CPAP. He [...] have recommended that he continue to work [employer] wearing his CPAP 100% of the time he is asleep. I have also recommended that he try to g et more hours of sleep during the week and try to keep a regular sleep schedule. I will follow up again in 6 months, sooner prn. Thirty minutes were spent cqyj-fs-hwhp, wi th the majority of time spent [...] | | | | | [place] | | | | | | [address] | | | | | | | | +--------+---------+ + + + documented as of this encounter Visit Diagnoses + + | Diagnosis | + + | MALLIKA on CPAP - Primary Obstructive sleep apnea (adult) (pediatric) | + + documented in this encounter"
--- OUTSIDE RECORDS SUMMARY | ~2019-07-14 | XMS | Encounter Summary ---
Demographics + + + | Address | [address] | | | [place] [address] | + + + | Home Phone [...] + + + | Author | [place] [employer] [facility] | + + + | Organization | [facility] [...] Team Providers + +------+ + | Care Gold Prospector Name | Role | Phone | [...] [address] | | | | | [place] at | [place] | | | | | [address] | [place], [place] | | | | | [address] | [address] | | | | | [place], [place] | [phone] | | | | | [address] | | | | | | [phone] | | | +--------+ + + + [...] [place] | | | | | | [address] | | | | | | [phone] | | | | | | | | +--------+---------+ + + + documented as of this encounter Visit Diagnoses Not on filedocumented in this encounter"
--- OUTSIDE RECORDS SUMMARY | ~2019-07-14 | XMS | Encounter Summary ---
Demographics + + + | Address | [address] | | | [place] [address] | + + + | Home Phone [...] + + + | Author | [place] [employer] [facility] | + + + | Organization | [facility] | [...] Team Providers + +------+ + | Care Bullet Maker Name | Role | Phone | [...] hormone | | 2010 | Visit | [facility] [address] | Cath[place], | deficiency ([facility]); | | | | Ave Mailcode: CH8N | DNP,FOREST ECONOMIST,[place] [address] | Pituitary adenoma | | | | [place] for [facility] | Nura Vill[address] [place], | ([facility]); 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 Had chest pain and shortness of breath at work Remains fatigued has been on B Blockers and has recently halved medication without a change in fatigue. Was given steroid at time of [place]. Was told that he had no cardiac damage. Stopped testosterone at time of [place] but reports he had not been using [...] Assessment and discussion: Pt now stable. S/p LA February 2011 with sent placement. He denies chest pain or shortness of b reath. He has not been using any replacement medications regularly and has discontinued test osterone post [place]. Pt will f.up with PCP re lipids, rectal exam and PSA. Will not restart te stosterone until after these resulted. Amairani reports being given stress dose of steroids at time of [place]. Will recheck all levels at this visit [...] in DDAVp anticiapted. 5. MRI 04/21 with COLLATOR HAND, RM labs I spent 40 mins in face to face evaluation of this patient of which over 50% was spent in [facility] and coordination of care CATHIE FIELDS DNP, FOREST ECONOMIST, [place] [facility] [place] [address] [facility] [place] [facility] [place] [address] Component Latest Ref Rng 03/28/2011 03/28/2011 03/28/2011 [...] (LAB) 8.6 - 10.2 mg/dL EGFR - JAPANESE > 60 mL/min EGFR NON -JAPANESE > 60 mL/min ANION GAP 4 - [...] (LAB) 8.6 - 10.2 mg/dL EGFR - JAPANESE > 60 mL/min EGFR NON -JAPANESE > 60 mL/min ANION GAP 4 - [...] - 10.2 mg/dL 8.5 (L) EGFR - JAPANESE > 60 mL/min > 60 EGFR NON -JAPANESE > 60 mL/min > 60 ANION GAP [...] | | 2019 | Visit | | [address] [facility] | | | | | | [place] | | | | | | [place], [place] | | | | | | [address] | | | | | | [phone] | | | | | | | [...] | + + + + + | [facility] | [address] | [place] [address] | | | PATHOLOGY | [address] [...] At | + + + | [facility] ([facility]) | [place] | | [facility] [place] [address] | REGIONAL | | [place] [address] | LABORATORY | + + + + + + + + | Performing | Address | City/State/Zipcode | Phone Number | | Organization | | | | + + + + + | [facility] | [address] | [place] [address] | | | LABORATORY | | | [...] At | + + + | [facility] ([facility] [address] [facility]) Reggie | [place] | | [place] [address] [facility] | [facility] | | [place] [address] | LABORATORY | + + + + + + + + | Performing | Address | City/State/Zipcode | Phone Number | | Organization | | | | + + + + + | [facility] | [address] | [place] [address] | | | LABORATORY | | | [...] At | + + + | [facility] ([facility]) [place] | [place] | | [facility] [place] [address] | REGIONAL | | [place] [address] | LABORATORY | + + + + + + + + | Performing | Address | City/State/Zipcode | Phone Number | | Organization | | | | + + + + + | [facility] | [address] | [place] [address] | | | LABORATORY | | | [...] [place] | [place] | | [place] [address] | REGIONAL | | [place] [address] | LABORATORY | + + + + + + + + | Performing | Address | City/State/Zipcode | Phone Number | | Organization | | | | + + + + + | [facility] | [address] | [place] [address] | | | LABORATORY | | | [...] [place] | [place] | | [place] [address] | REGIONAL | | [place] [address] | LABORATORY | + + + + + + + + | Performing | Address | City/State/Zipcode | Phone Number | | Organization | | | | + + + + + | [facility] | [address] | [place] [address] | | | LABORATORY | | | [...] | | | DEPARTMENT | | | JAPANESE | | | OF | | | [...] DEPARTMENT OF | [address] | [place] [address] | | | PATHOLOGY | [address] [...]
--- OUTSIDE RECORDS SUMMARY | ~2019-07-14 | XMS | Encounter Summary ---
Demographics + + + | Address | [address] | | | [place] [address] | + + + | Home Phone [...] + + + | Author | [place] [employer] [facility] | + + + | Organization | [facility] [...] Providers + +------+ + | Care Research Animal Attendant Name | Role | Phone | [...] | | 2015 | | [facility] | MD Michell [address] | RESECTION OF MITRAL | | | | Admitting Desk | [address] | VALVE MASS; POSSIBLE | | | | Located on the 9 | [place], [place] | MITRAL VALVE | | | | floor [facility] [address] | [address] | REPLACEMENT; | | | | [address] | [phone] | CORONARY ARTERY | | | | [place], [place] | | BYPASS GRAFTING- | | | | [address] | | CASE ABORTED PRIOR | | [...] valve on echocard iogram. He presented to [facility] for surgical removal of the mass and coronary bypass grafting. 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 Endocrinology was called regarding his chronic steroids an d he will take 50mg hydrocortisone once this evening and will resume home dosage tomorrow. C [facility] management has arranged for INR follow-up for [...] Your Medications These medications were sent to [facility] [address], [place] [address] Hours: 8AM-9PM Mon-Fri; 9-5:30PM Sat-Sun hydrocortisone 10 [...] tobacco use Core Measures: Diagnosis of Acute OH: No Diagnosis of CHF: No Follow Up Appointments: PCP:. When? 1 month Other: INR - To be arranged by case management for check on 07/10/16 or 07/11/16 - patient wi ll be contacted with appointment information Blaise Aguilar on 08/14/16 Follow Up Tests: (Tests at [facility] must be entered into Inside) Stress Echo at follow-up appointment with Dr. [...] Ashish Meyer PA-C Division of Cardiothoracic Surgery [facility] Mail Code L353 [address] [facility] [address] Associated attestation - Koffi Aguilar MD - [...] showed a patent stent to the LCx, KETTLE GIRL of the RCA (prior attempt to o [...] follow up for this i ssue at [facility] if possible. I will arrange for these [...] [address] | | | | | | [place], [place] | | | | | | [address] | | | | | | [phone] | | | | | | | [...] + + + | X-RAY | EXAM: NV CHEST 1 VIEW | | | | [...] RAMSEY | [address] | [place], [place] | | | KASHIF THORNE OF [facility] | [address] | [address] | | | TESTS | | | [...] DIXIEAM | [address] | [place], [place] | | | MATI POINT OF CARE | [address] | [address] | | | TESTS | | | [...] LABORATORY | [address] | [place] [address] | | | SERVICES, | [address] [...] + + + | MIRTHA RAMSEY | [address] | [place], [place] | | | MATI [facility] | [address] | [address] | | | TESTS | | | [...]
--- OUTSIDE RECORDS SUMMARY | ~2019-07-14 | XMS | Encounter Summary ---
Demographics + + + | Address | [address] | | | [place] [address] | + + + | Home Phone [...] + + | Author | [place] [employer] [facility] | + + + | Organization | [facility] [...] Team Providers + +------+ + | Care Comber Tender Name | Role | Phone | + +------+ + | No Pcp Per Patient | PCP | Unavailable | + +------+ + Encounter Details +--------+ + + + + | Date | Type | Department | Care Team | Description | +--------+ + + + + | 12/10/ | MyChart | Neurosurgery at | Donnie, | RE: Levels | | 2011 | Encounter | [facility] [address] | Cathie | | | | | [place] Mailcode: CH8N | DNP,PIPE BOWL PAINT TRIMMER,[place] [address] | | | | | [place] for [facility] | [address] [place], | | | | | and Healing, | [place] [address] | | | | | Building 1 | [phone] | | | | | [place], [place] | | | | | | [address] | | | | | | [phone] | | | +--------+ + + + [...] Rd | | | | | | [place], [place] | | | | | | [address] | | | | | | [phone] | | | | | | | | +--------+---------+ + + + documented as of this encounter Visit Diagnoses Not on filedocumented in this encounter"
--- OUTSIDE RECORDS SUMMARY | ~2019-07-14 | XMS | Encounter Summary ---
Demographics + + + | Address | [address] | | | [place] [address] | + + + | Home Phone | | + + + | Preferred Language | Unknown | + + + | Marital Status | Single | + + + | Hindu Affiliation | NON | + + + | Race | or | + + + | Ethnic Group | Not or | + + + Author + + + | Author | [place] [employer] [facility] | + + + | Organization | [facility] | + + + | Address | Unknown | + + + | Phone | Unavailable | + + + Support + + +---------+ + | Name | Relationship | Address | Phone | + + +---------+ + | Alexandria Dixon | ECON | Unknown | | + + +---------+ + Care Team Providers + +------+ + | Care Honing Machine Operator Tool Name | Role | Phone | + [...] n | Abdoulaye Mailcode: [id number] | [place], [place] | | | | | [place], [place] | [address] | | | | | [address] | | | | | | [phone] | | | +--------+ + + + [...] | | 2019 | Visit | | [address] | | | | | | [address] | | | | | | [place] | | | | | | [address] | | | | | | [phone] | | | | | | | | +--------+---------+ + + + documented as of this encounter Visit Diagnoses Not on filedocumented in this encounter"
--- OUTSIDE RECORDS SUMMARY | ~2019-07-14 | XMS | Encounter Summary ---
Demographics + + + | Address | [address] | | | [place] [address] | + + + | Home Phone [...] + + + | Author | [place] [employer] [facility] | + + + | Organization | [facility] [...] Providers + +------+ + | Care Scrap Iron Loader Name | Role | Phone | [...] Refill Request | | 2006 | | [facility] [address] | Cathie, | | | | | [place] Mailcode: CH8N | DNP,FUNDRAISING ASSISTANT,[place] [address] | | | | | [facility] | [address] [place], | | | | | and [facility], | [place] [address] | | | | | [facility] | [phone] | | | | | Floor [place], [place] | | | | | | [address] | | | | | | [phone] | | | +--------+--------+ + + + [...] Rd | | | | | | [place], [place] | | | | | | [address] | | | | | | [phone] | | | | | | | | +--------+---------+ + + + documented as of this encounter Visit Diagnoses Not on filedocumented in this encounter"
--- OUTSIDE RECORDS SUMMARY | ~2019-07-14 | XMS | Encounter Summary ---
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[place], [place]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 | Phone: | Phone: | | | | | (HCC) | [phone] | [phone] | | | | | Glucocortico | Fax: | Fax: | | | | | id | [phone] | [phone] | | | | | deficiency | | | | | | | (HCC) | | | | | | | 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 | | | | | | | (HCC) | | | | | | | Procedures | | | | | | | ID | | | | | | | OFFICE/OUTPT | | | | | | | | | | | | | | VISIT,EST,LE | | | | | | | VL I ID | | | | | | | OFFICE/OUTPT | | | | | | | | | | | | | | VISIT,EST,LE | | | | | | | VL II ID | | | | | | | OFFICE/OUTPT | | | | | | | | | | | | | | VISIT,EST,LE | | | | | | | LISHA III ID | | | | | | | OFFICE/OUTPT | | | | | | | | | | | | | | VISIT,EST,LE | | | | | | | VL IV ID | | | | | | | [...] adenoma | | 2013 | Visit | [facility] [address] | Cathie | ([facility]) (Primary Dx) | | | | Rosalva Mailcode: [id number] | DNP,ADMINISTRATOR SOCIAL WELFARE,[place] [address] | | | | | [facility] | [address] [place], | | | | | and Healing, | [place] [address] | | | | | Building 1 | [phone] | | | | | [place], [place] | | | | | | [address] | | | | | | [phone] | | | +--------+---------+ + + + [...] in this encounter Progress Notes Cathie Fields, SANIYA,ADMINISTRATOR SOCIAL WELFARE,[place] - 12/09/2013 12:16 PM PDTReason for visit. [...] cardiac stent place 02/[address] At this visit; Symptoms and Complaints: Feels flushed with hot flashes at times. Was off testosterone using now for a weeks Was off GH for at least a month back on x 2 days thryoid was decreased by local provider about 2 mths ago to 150mg more flushing since that time [place] enegy level is lower weight still labile [...] in 6 mths. TOMER MONTELONGO DNP, BECCA Shell Reprint Operator [facility] [address] [place] [address] documented in this encounter Plan of Treatment +--------+---------+ + + + | Date | Type | Specialty | Care Team | Description | +--------+---------+ + + + | 08/15/ | Office | Cardiology | Zuleika Hernandez, | | | 2019 | Visit | | [address] | | | | | | [address] | | | | | | [place], [place] | | | | | | [address] | | | | | | [phone] | | | | | | | [...] | + + + + + | [facility] | [address] | [place] [address] | | | SERVICES, SPECIAL | PARK [...] + | [place] [facility] - | [address] | [place] [address] | | | [place] | | | [...] + | [facility] [facility] - | [address] | [place] [address] | | | [place] | | | [...] MIRTHA WOODS | [address] | [place] [address] | | | VITALY RANKIN | [address] [...] - | | | | | | [place] | | + +-------+ + + + + + | Specimen | + + | Blood - Blood | + + + + + + + | Performing | Address | City/State/Zipcode | Phone Number | | Organization | | | | + + + + + | [place] [facility] | [address] | [place] [address] | | | [place] | | | | + + + [...] + + | Test now performed at [facility]. New method effective 06/22/13. | [facility] | | | LABORATORY | | | SERVICES, CORE | + + + + + + + + | Performing | Address | City/State/Zipcode | Phone Number | | Organization | | | | + + + + + | [facility] | [address] | [place] [address] | | | SERVICES, CORE | PARK [...] | | | LABORATORY | | | GUAMANIAN | | | SERVICES, | | | [...] the MDRD equation recommended by the | [facility] | | National Kidney Disease Education Program. [...] HOSPITAL LABORATORY | [address] | [place] [address] | | | MASSIEL, VITALY | [address] | | | + + + + + documented in this encounter Visit Diagnoses + + | Diagnosis | + + | Pituitary adenoma (HCC) - Primary Benign neoplasm of pituitary gland and | | craniopharyngeal duct (pouch) | + + documented in this encounter"
--- OUTSIDE RECORDS SUMMARY | ~2019-07-14 | XMS | Encounter Summary ---
Demographics + + + | Address | [address] | | | [place] [address] | + + + | Home Phone [...] + + + | Author | [place] [employer] [facility] | + + + | Organization | [facility] | [...] Providers + +------+ + | Care Tool Repairer Bench Name | Role | Phone | [...] + + + | Canceled | | Anticoagulati | Diagnoses | Mitch | | | | | on | Mitral | Ashish Hernandez PA-C | | | | | | valve mass | [address] | | | | | | Procedures | [address] | | | | | | CONSULT TO | Kimo Stanford | | | | | | ANTICOAGULAT | [place], [place] | | | | | | [facility] | [address] | | | | | | | Phone: | | | | | | | [phone] | | | | | | | Fax: | | | | | | | [phone] | | + +--------+ + + + + Reason for Visit AUTH/CERT +--------+--------+ + [...] + + + + | 07/08/ | Hospital | [facility] Jose [address] | Koffi Aguilar | | | 2016 | Encounter | [address] | MD Michell [address] | | | | | [id number] Mike | [address] | | | | | [place], | [place], [place] | | | | | [place] [address] | [address] | | | | | [phone] | [phone] | | | | | | | [...] valve on echocard iogram. He presented to [facility] for surgical removal of the mass and coronary bypass grafting. 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 Endocrinology was called regarding his chronic steroids an d he will take 50mg hydrocortisone once this evening and will resume home dosage tomorrow. [facility] management has arranged for INR [...] Your Medications These medications were sent to [facility] [address], [place] [address] Hours: 8AM-9PM Mon-Fri; 9-5:30PM Sat-Sun hydrocortisone 10 [...] vital during the first 2 weeks at ome. No driving for 1 month or [...] tobacco use Core Measures: Diagnosis of Acute NM: No Diagnosis of CHF: No Follow Up Appointments: PCP:. When? 1 month Other: INR - To be arranged by case management for check on 07/10/16 or 07/11/16 - patient wi ll be contacted with appointment information Blaise Aguilar on 08/14/16 Follow Up Tests: (Tests at [facility] must be entered into [employer]) Stress Echo at follow-up appointment with Dr. [...] Ashish Meyer PA-C Division of Cardiothoracic Surgery [facility] [place] Mail Code L353 [address] [place] [phone] Associated attestation - Koffi Aguilar MD - [...] showed a patent stent to the LCx, ANESTHESIA ASSISTANT of the RCA (prior attempt to o [...] follow up for this i ssue at [facility] if possible. I will arrange for these [...] | 2019 | Visit | | [address] [facility] | | | | | | [address] | | | | | | [place], [place] | | | | | | [address] | | | | | | [phone] | | | | | | | [...] + + + | X-RAY | EXAM: UT CHEST 1 VIEW | | | | | PORTABLE | 07/08/16 11:37:00 | | | | | CHEST [...] | MIRTHA RAMSEY | [address] | [place], [place] | | | KASHIF THORNE OF [facility] | [address] | [address] | | | TESTS | | | [...] [place] | | | | | | MATI, POINT | | | | | | OF CARE | | | | | | TESTS | | + + + + + + | POTASSIUM, | 4.0 | 3.4 - 5.0 | [facility] - | | | POC | | mmol/L | [place] | | | | | | MATI, POINT | | [...] + + + + | [facility] | [address] | [place], [place] | | | MATI MOLINE OF [facility] | [address] | [address] | | | TESTS | | | [...] + + + | [facility] | [address] | [place] [address] | | | SERVICES, | [address] [...] + + + + | [facility] | [address] | [place], [place] | | | MATI POINT OF CARE | [address] | [address] | | | TESTS | | | | + + + + + CARDIOLOGY (07/08/2016 12:00 AM PST) + + + | Narrative | Performed At | + + + | | | + + + documented in this encounter Visit Diagnoses + + | Diagnosis | + + | Mitral valve mass Mitral valve disorders | + + | Pituitary adenoma (HCC) [...] | | | | | CONTINUOUS, Starting Thu07/08/16 | | AM PST | | | | | at 06, Until Thu07/08/16 at | | | | | | [...] intravenous, POSTPROCEDURE PRN, | | | Starting Thu07/08/16 at 1011, | | | Until 07/08/16 at 1919, over | | | sedation | | [...]
--- OUTSIDE RECORDS SUMMARY | ~2019-07-14 | XMS | Encounter Summary ---
Demographics + + + | Address | [address] | | | [place] [address] | + + + | Home Phone [...] + + + | Author | [place] [employer] [facility] | + + + | Organization | [facility] [...] Team Providers + +------+ + | Care Tar [place] Man Name | Role | Phone | [...] Refill Request | | 2012 | | [facility] [address] | Cathie, | | | | | Rosalva Mailcode: CH8N | DNP,ELECTRIC SEALING MACHINE OPERATOR,[place] [address] | | | | | [facility] | [address] [place], | | | | | and Healing, | [place] [address] | | | | | Building 1 | [phone] | | | | | [place], [place] | | | | | | [address] | | | | | | [phone] | | | +--------+--------+ + + + [...] Rd | | | | | | [place], [place] | | | | | | [address] | | | | | | [phone] | | | | | | | | +--------+---------+ + + + documented as of this encounter Visit Diagnoses Not on filedocumented in this encounter"
--- OUTSIDE RECORDS SUMMARY | ~2019-07-14 | XMS | Encounter Summary ---
Demographics + + + | Address | [address] | | | [place] [address] | + + + | Home Phone [...] + + + | Author | [place] [employer] [facility] | + + + | Organization | [facility] | + + + | Address | Unknown | + + + | Phone | Unavailable | + + + Support + + +---------+ + | Name | Relationship | Address | Phone | + + +---------+ + | Alexandria Dixon | ECON | Unknown | | + + +---------+ + Care Team Providers + +------+ + | Care Center Machine Operator Name | Role | Phone [...] | | | Rosalva Mailcode: [id number] | DNP,PROGRAM WRITER,[place] [address] | | | | | [facility] | [address] [place], | | | | | and [place], | [place] [address] | | | | | [place] [address] | [phone] | | | | | [place], [place] | | | | | | [address] | | | | | | [phone] | | | +--------+ + + + [...] Rd | | | | | | [place], [place] | | | | | | [address] | | | | | | [phone] | | | | | | | | +--------+---------+ + + + documented as of this encounter Visit Diagnoses Not on filedocumented in this encounter"
--- OUTSIDE RECORDS SUMMARY | ~2019-07-14 | XMS | Encounter Summary ---
Demographics + + + | Address | [address] | | | [place] [address] | + + + | Home Phone [...] + + + | Author | [place] [employer] [facility] | + + + | Organization | [facility] [...] Team Providers + +------+ + | Care Addiction Counselor Name | Role | Phone | + +------+ + | Jinny Bergeron MD | PCP | | + +------+ + Encounter Details +--------+ + + + + | Date | Type | Department | Care Team | Description | +--------+ + + + + | 09/05/ | Telephone | Neurosurgery at | Donnie, | | | 2011 | | [address] | Cathie | | | | | [place] Mailcode: CH8N | DNP,BIOMECHANICAL ENGINEER,[place] [address] | | | | | [facility] | [address] | | | | | and [place] | [place] [address] | | | | | [place] [address] | [phone] | | | | | [facility] [place] | | | | | | [address] | | | | | | [phone] | | | +--------+ + + + [...] Rd | | | | | | [place], [place] | | | | | | [address] | | | | | | [phone] | | | | | | | | +--------+---------+ + + + documented as of this encounter Visit Diagnoses Not on filedocumented in this encounter"
--- OUTSIDE RECORDS SUMMARY | ~2019-07-14 | XMS | Encounter Summary ---
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 | [facility] | | | | | neoplasm of | HEALTH | [address] [place], | | | | | pituitary | CENTER | [place] | | | | | gland | [address] | [address] | | | | | Diabetes | [facility] | Phone: | | | | | insipidus | [address] | [phone] | | | | | 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: | | | | | hypofunction | [place], | [phone] | | | | | | [place] [address] | | | | | | Hypothyroidi | Phone: | | | | | | sm, | [phone] | | | | | | unspecified | Fax: | | | | | | Unspecified | [phone] | | | | | | | | | | | | | adrenocortic | | | | | | | al | | | | | | | insufficienc | | | | | | | y | | | | | | | Procedures | | | | | | | GA EST | | | | | | | PATIENT | | | | | | | LEVEL V GA | | | | | | | THR/PRPH/DX | | | | | | | INJ,IV PSH | | | | | | | GA INJ | | | | | | | COSYNTROPIN | | | | | | | PER 0.25MG | | | +--------+--------+ + + + + Encounter Details +--------+---------+ + + + | Date | Type | Department | Care Team | Description | +--------+---------+ + + + | 02/18/ | Office | Neurosurgery at | Donnie, | Pituitary adenoma | | 2018 | Visit | [facility] [address] | Cathie | ([facility]) (Primary Dx); | | | | Ave Mailcode: [address]N | DNP,CAREER DEVELOPMENT FACILITATOR,[place] [address] | 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[facility] | [address] [place], | deficiency ([facility]); | | | | and Healing, | [place] [address] | Diabetes insipidus | | | | Building 1 | [phone] | ([facility]); Hypogonadism | | | | [facility] [place] | | male; Other | | | | [address] | | specified | | | | [phone] | | hypothyroidism; | | | | | | Adrenal | | | | | | insufficiency ([facility]); | | | | | [...] + + + | Blood Pressure | 120/61 | 02/18/2018 9:01 AM | | | | | PDT | | + + + + + | Pulse | 62 | 02/18/2018 9:01 AM | | | | | PDT [...] | Weight | 125.8 kg (277 lb 6.4 | 02/18/2018 9:01 AM | | | | oz) | PDT | | + + + + + | Height | - | - | | + + + + + | Body Mass Index | 42.19 | 07/08/2016 9:30 AM | | | | | PST | | + + + + + documented in this encounter Progress Notes Cathie Fields, SANIYA,CAREER DEVELOPMENT FACILITATOR,[place] - 02/18/2018 9:00 AM PDTFormatting of this note might [...] cardiac stent place 02/2011 after a n [place]. Had further episode of CP 04/26 with a second stent placement At this visit; Symptoms and Complaints: Headaches x 1- 2/week -04/19 resolve with sleep HC now 25mg daily no dizziness, nausea ddavp 11/2 tab am and 2 tabs HS. Not nocturia Has new CPAP Fatigues easily Weight stable after Borderline high BSL Weakness in all extemities Has not done cardiac rehab program Depot testosterone last 02/15/18 every 2 weeks. draw locally yesterday No visual deficit Pending Visual pending 03/10. No changes in vision Is better doing GH injections Sexual function ok back pain persists B/p better and more stable Taking Thyroid regularly Sleeps more during the day at [facility] Still feels hot a lot of the time Hot flashes and some night sweats. Feels hot most of the time. No CTS sympotms LT4 125mcdaily Exact date of onset of symptoms is unknown Review of systems negative other than as stated above. Physical Exam: Blood pressure 120/61, pulse 62, weight 125.8 kg (277 lb 6.4 oz). General: A pleasant man who looks [...] T4,, Prolactin pending Component Latest Ref Rng 11/14/2014 11/14/2014 11/14/2014 11/14/2014 2:34 PM 2:34 PM 2:34 PM 2:34 PM GLUCOSE, PLASMA (LAB) 60-99 mg/dL BUN, PLASMA (LAB) 6-20 mg/dL CREATININE PLASMA (LAB) 0.70-1.30 mg/dL EGFR - SERBIAN >60 mL/min EGFR NON -SERBIAN >60 mL/min SODIUM, PLASMA (LAB) 136-145 mmol/L [...] PLASMA (LAB) 0.70-1.30 mg/dL 0.81 EGFR - SERBIAN >60 mL/min >60 EGFR NON -SERBIAN >60 mL/min >60 SODIUM, PLASMA (LAB) 136-145 [...] 25 HYDROXY 30-80 ng/mL Component Latest Ref [facility] 06/22/2015 06/22/2015 06/22/2015 10:26 AM 10:26 AM 10:26 AM GLUCOSE, PLASMA (LAB) 60-99 mg/dL BUN, PLASMA (LAB) 6-20 mg/dL CREATININE PLASMA (LAB) 0.70-1.30 mg/dL EGFR - SERBIAN >60 mL/min EGFR NON -SERBIAN >60 mL/min SODIUM, PLASMA (LAB) 136-145 mmol/L POTASSIUM, PLASMA (LAB) 3.4-5.0 mmol/L CHLORIDE, PLASMA (LAB) 97-108 mmol/L TOTAL CO2, PLASMA (LAB) 21-32 mmol/L CALCIUM, PLASMA (LAB) 8.6-10.2 mg/dL ANION GAP POTASSIUM CMNT FREE T4, SERUM 0.6-1.2 ng/dL PROLACTIN 3 - 13 ng/mL TSH 0.39-4.17 mIU/L 0.61 HEMOGLOBIN A1C <5.7 % 7.9 (H) PSA,TOTAL,SCREENING <=2.50 ng/mL 0.24 Component Latest Ref [facility] 06/22/2015 06/22/2015 06/22/2015 10:26 AM 10:26 AM 10:26 AM GLUCOSE, PLASMA (LAB) 60-99 mg/dL 141 (H) BUN, PLASMA (LAB) 6-20 mg/dL 11 CREATININE PLASMA (LAB) 0.70-1.30 mg/dL 0.95 EGFR - SERBIAN >60 mL/min >60 EGFR NON -SERBIAN >60 mL/min >60 SODIUM, PLASMA (LAB) 136-145 [...] CREATININE PLASMA (LAB) 0.70-1.30 mg/dL EGFR - SERBIAN >60 mL/min EGFR NON -SERBIAN >60 mL/min SODIUM, PLASMA (LAB) 136-145 mmol/L [...] PLASMA (LAB) 0.70-1.30 mg/dL 0.78 EGFR - SERBIAN >60 mL/min >60 EGFR NON -SERBIAN >60 mL/min >60 SODIUM, PLASMA (LAB) 136-145 [...] HYDROXY 30-80 ng/mL Component Latest Ref Rng 05/16/2016 05/16/2016 05/16/2016 05/16/2016 12:54 PM 12:54 PM 12:54 PM 12:54 PM GLUCOSE, PLASMA (LAB) 60-99 mg/dL BUN, PLASMA (LAB) 6-20 mg/dL CREATININE PLASMA (LAB) 0.70-1.30 mg/dL EGFR - SERBIAN >60 mL/min EGFR NON -SERBIAN >60 mL/min SODIUM, PLASMA (LAB) 136-145 mmol/L [...] PLASMA (LAB) 0.70-1.30 mg/dL 0.72 EGFR - SERBIAN >60 mL/min >60 EGFR NON -SERBIAN >60 mL/min >60 SODIUM, PLASMA (LAB) 136-145 [...] HYDROXY 30-80 ng/mL Component Latest Ref Rng & Units 05/12/2017 05/12/2017 05/12/2017 05/12/2017 2:03 PM 2:03 PM 2:03 PM 2:03 PM GLUCOSE, PLASMA (LAB) 70 - 99 mg/dL 108 (H) BUN, PLASMA (LAB) 6 - 20 mg/dL 13 CREATININE PLASMA (LAB) 0.70 - 1.30 mg/dL 0.84 EGFR - SERBIAN >60 mL/min >60 EGFR NON -SERBIAN >60 mL/min >60 SODIUM, PLASMA (LAB) 136 [...] (LAB) 0.70 - 1.30 mg/dL EGFR - SERBIAN >60 mL/min EGFR NON -SERBIAN >60 mL/min SODIUM, PLASMA (LAB) 136 - [...] D 25 HYDROXY 30 - 80 ng/mL Assessment and discussion: Amairani Tyler is a 37yo male with 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 He underwent cardiac stenting after MRI 02/13 with recurrent CP and LAD stent placement 06/2017 Pt stable although he reports he still has CP intermittently and daily at times. Recommend he follow up with development disability specialist. He reports taking meds more regularly and no further injurie s in last 6 mths. Will check all pituitary fx. VF are normal to confrontation Plan 1. Adrenals. Pt will continue 20- 25mg hydrocortisone daily. He is instructed to take ER s teroids up to 40mg extra for illness, injury, [...] with cardiology locally 8. Follow up in 12 mths 02/07. With labs And MRI CATHIE FIELDS DNP, CAREER DEVELOPMENT FACILITATOR, [place] Commercial Lines Insurance Agent [facility] [place] [address] [address] Component Latest Ref Rng & Units 02/18/2018 02/18/2018 02/18/2018 02/18/2018 9:52 AM 9:52 AM 9:52 AM 9:52 AM GLUCOSE, PLASMA (LAB) 70 - 99 mg/dL 130 (H) BUN, PLASMA (LAB) 6 - 20 mg/dL 14 CREATININE PLASMA (LAB) 0.70 - 1.30 mg/dL 1.07 EGFR - SERBIAN >60 mL/min >60 EGFR NON -SERBIAN >60 mL/min >60 SODIUM, PLASMA (LAB) 136 [...] (LAB) 0.70 - 1.30 mg/dL EGFR - SERBIAN >60 mL/min EGFR NON -SERBIAN >60 mL/min SODIUM, PLASMA (LAB) 136 - [...] HYDROXY 30 - 80 ng/mL 26.2 (L) 1. Adrenals. Continue same dose of HC 2. Testosterone level Followed by PCP 3. Vitamin D level improved continue same dose of vit D3 or increase by 500IU daily. 4. IGF-1 OK 5. Monitor BSL with PCP. 6. Follow up 02/25 with MRI RM labs TOMER MONTELONGO DNP, [place] Commercial Lines Insurance Agent [facility] [address] [facility] [id number] signed by Cathie Fields DNP, FNP, [place] at 02/23/2018 1:31 PM PDTdocumented in this encounter Plan of [...] [place] | | | | | | [address] | | | | | | [phone] | | | | | | | [...] | + + + + + | [facility] | [address] | [place] [address] | | | MASSIEL, CORE | [address] | | | [...] | + + + + + | [facility] | [address] [facility] | [place] [address] | | | SERVICES, VITALY | [address] [...] [facility] | [address] | [place] [address] | | | SERVICES, CORE | [address] [...] + + + | Test performed in [facility] lab. New reference range in effect | [facility] | | 2-6-18. | LABORATORY | | | VITALY RANKIN | + + + + + + + + | Performing | Address | City/State/Zipcode | Phone Number | | Organization | | | | + + + + + | [facility] | [address] | [place] [address] | | | SERVICES, VITALY | [address] [...] | | | | | | by [address] | | | | | | Jaziel Marx, [facility] [place] | | | | | | [address] | | | | | | [phone].[employer]. | | | | | | Ty [...] + + | [facility] | [address] | [place], [place] | | | [facility] | | [address] | | + + + + + [...] | | | LABORATORY | | | SERBIAN | | | SERVICES, | | | [...] | + + + + + | [facility] | [address] | [place] [address] | | | SERVICES, CORE | [address] [...] + + | Diabetes insipidus ([facility]) Diabetes insipidus | + + | Hypogonadism male Other testicular hypofunction | + + | Other specified hypothyroidism | + + | Adrenal insufficiency (HCC) Glucocorticoid deficiency | + + | Vitamin D deficiency | + + documented in this encounter"
--- OUTSIDE RECORDS SUMMARY | ~2019-07-14 | XMS | Encounter Summary ---
Demographics + + + | Address | [address] [address] | | | [place] [address] | + + + | Home Phone [...] Team Providers + +------+ + | Care Deputy Manager Name | Role | Phone | [...] as of this encounter Progress Notes Interface, Home Care Companion In - 03/04/2006 2:04 AM PDT [id number] TOREY TRIVEDI V [id number] Clinic Date: 02/27/2006 Clinic: [facility] [...] care and counseling. Jaclyn Crawford M.D. / [id number] / [id number] / [id number] / [phone] Electronically signed by Jaclyn Crawford 03-03-2006 06:25:11 [...] [place] | | | | | | [address] | | | | | | [phone] | | | | | | | | +--------+---------+ + + + documented as of this encounter Visit Diagnoses Not on filedocumented in this encounter"
--- OUTSIDE RECORDS SUMMARY | ~2019-07-14 | XMS | Encounter Summary ---
Demographics + + + | Address | [address] | | | [place] [address] | + + + | Home Phone [...] + + + | Author | [place] [facility] | + + + | Organization | [facility] | + + + | Address | Unknown | + + + | Phone | Unavailable | + + + Support + + +---------+ + | Name | Relationship | Address | Phone | + + +---------+ + | Alexandria Dixon | ECON | Unknown | | + + +---------+ + Care Team Providers + +------+ + | Care Mobile Application Architect Name | Role | Phone | [...] | Catheterizati | Coronary | Zule[place], | Electrical Line Worker | | | | on | artery | MD [address] | [address] | | | | | disease of | [address] | [address] | | | | | chinik | [address] | [address] | | | | | artery of | [facility] | | | | | chinik heart | [address] | [place], [place] | | | | | with stable | Phone: | [address] | | | | | angina | [phone] | Phone: | | | | | pectoris | Fax: | [phone] | | | | | (HCC) | [phone] | Fax: | | | | | Procedures | | [phone] | | | | | SEDIMENTATIONIST INT | | | | | | | CORONARY | | | | | | | ANGIOGRAM | | | | | | | CA CORONARY | | | | | | | ARTERY ANGIO | | | | | | | S&I CA | | | | | | [...] Mailcode: | | | | | | [place] | [facility] | | | | | | Health | for Health | | | | | | Center [address] | and Healing, | | | | | | | Building 1, | | | | | | Confederated | 7th floor | | | | | | Way [address] | [place], [place] | | | | | | [address] | [address] | | | | | | [place], | Phone: | | | | | | [place] [address] | [phone] | | | | | | Phone: | Fax: | | | | | | [phone] | [phone] | | | | | | Fax: | | | | | | | [phone] | | + +--------+ + + + + Encounter Details +--------+---------+ + + + | Date | Type | Department | Care Team | Description | +--------+---------+ + + + | 03/29/ | Office | Cardiology in | David Zuleika, | Chest pain, | | 2018 | Visit | [facility] | [address] | unspecified type | | | | [place] at | [facility] [address] | (Primary Dx); | | | | [facility] [address] | [place], [place] | Coronary artery | | | | [address] | [address] | disease of chinik | | | | [place], [place] | [phone] | artery of chinik | | | | [address] | | heart with stable | | | | [phone] | | angina pectoris | | | [...] locally then youcan schedule with us at [facility] by calling [phone]. 4. I have referred you for angiogram. [...] electronicall y inclined, communication via our secure Vinfolio system is the best way to communi sadie non-urgent matters. If you are not already enrolled in [employer], there are instructions later in this handout. For urgent matters (requiring response within 48 hours), please call our office at [phone]. Specifically, the diet should be fresh, unprocessed/unpackaged [...] over the counter at drug stores and [employer]) - take 2 caplets twice a day [...] might be d ifferent from the original. [facility] [place] Initial Consultation Name: Amairani Ulloa : 1980 [...] of chest pain. He has travelled from [place]. Cardiovascular history: # Premature CAD -- [place] x 2 2010 with PCI to the mLCx. Known [facility]IVE [facility] of RCA with collateral flow from the [...] bone Headache(784.0) CAD (coronary artery disease) 2010 [place], LCx stent and [employer] of RCA; cath 06/2016: moderate LAD disease, [...] does not have children. Previously worked in [employer]. Not working because of health issues. He is part chinik ([facility] kletsel dehe wintun) and part Vietn amese. Allergies Allergen Reactions [...] 126/74 02/18/18 120/61 05/12/17 131/74 Labs - [facility] Lab Results Component Value Date WBC 9.08 [...] Cardiac stress test None recent Cardiac catheterization [facility] 07/02/2016 RESULTS 1. Left main coronary artery [...] chronically occluded in the midportion. There are yxvt-hx-mmnbi collaterals. IMPRESSION 1. Two-vessel coronary artery disease with moderate disease of the qiurzjzl-hq-ymi left anterior descending artery. 2. Patent stent in the left circumflex artery. 3. Chronically-occluded right coronary artery with wgvj-xt-vpnfk collaterals. [facility] 04/27/2017 NSTEMI LVEDP 36 Impression: Mr. Tyler is a 37 y.o. male with pituitary adenoma s/p resection 2005 c/b awad hypopituitar ism (follows with [facility] endocrine), morbid obesity, DM, HTN, active tobacco chew user, premat ure CAD with known unrevascularized disease ([employer] [employer] RCA) s/p multiple PCI last 04/2017 with ROBERTO to pLAD in the setting of NSTEMI, prior concern for possible small mass near the atrial side of the mitral valve who presents with recurrent angina including occasional chest pain at r est. 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 Last [facility] 04/2017 in the setting of NSTEMI demonstrated RE[employer]LEBOT[employer] [employer] RCA with co llateral flow from LCx, [...] better DM control as per PCP and supervisory aide -- BP well controlled today Mitral valve [...] you for referring Amairani Ulloa to the [facility] [place] for further care. Please call with questions. Zuleika Hernandez M.D. Tube Turnerproduce service team member [facility] [place] [facility] [place] Pager: [phone] Clinic: documented in this en counter Plan [...] Rd | | | | | | [place], [place] | | | | | | [address] | | | | | | [phone] | | | | | | | [...] e | 11:57 AM | disease of chinik | procedure are in the | | | | PDT | artery of chinik | results section. | | | | [...] | | | | | disease of chinik | | | | | | artery of chinik | | | | | | heart [...] | | | | | disease of chinik | | | | | | artery of chinik | | | | | | heart [...] | | | | | disease of chinik | | | | | | artery of chinik | | | | | | heart [...] + + documented in this encounter Results SEDIMENTATIONIST INT CORONARY ANGIOGRAM (04/13/2018 6:16 AM PDT) + + | Specimen | + + | | + + + + + | Narrative | Performed At | + + + | Procedure performed in the Cardiac Electrical Line Worker. See procedure notes | | | for [...] | + + + + + | [facility] | [address] | [place] [address] | | | SERVICESVITALY | [address] [...] [facility] | [address] | [place], [place] | | | SERVICES, LIPID | 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
--- OUTSIDE RECORDS SUMMARY | ~2019-07-14 | XMS | Encounter Summary ---
Demographics + + + | Address | [address] | | | [place] [address] | + + + | Home Phone [...] + + + | Author | [place] [employer] [facility] | + + + | Organization | [facility] [...] Team Providers + +------+ + | Care Warehouse Order Selector Name | Role | Phone | [...] Mailcode:OP14B | | | | | | [address] | | | | | | [place], [place] | | | | | | [address] | | | | | | [phone] | | | +--------+ + + + [...] | | | | | | [place], [place] | | | | | | [address] | | | | | | [phone] | | | | | | | [...]
--- OUTSIDE RECORDS SUMMARY | ~2019-07-14 | XMS | Encounter Summary ---
Demographics + + + | Address | [address] | | | [place] [address] | + + + | Home Phone [...] + + + | Author | [place] [employer] [facility] | + + + | Organization | [facility] | [...] Team Providers + +------+ + | Care Chef Concierge Name | Role | Phone | + [...] | | | [place] Mailcode: CH8N | DNP,JACK TAMP OPERATOR,[place] [address] | | | | | [facility] | [address] [place], | | | | | and Healing, | [place] [address] | | | | | [facility] | [phone] | | | | | Floor [place], [place] | | | | | | [address] | | | | | | [phone] | | | +--------+ + + + [...] Rd | | | | | | [place], [place] | | | | | | [address] | | | | | | [phone] | | | | | | | | +--------+---------+ + + + documented as of this encounter Visit Diagnoses Not on filedocumented in this encounter"
--- OUTSIDE RECORDS SUMMARY | ~2019-07-14 | XMS | Encounter Summary ---
Demographics + + + | Address | [address] | | | [place] [address] | + + + | Home Phone [...] Team Providers + +------+ + | Care Credit Advisor Name | Role | Phone | + [...] as of this encounter Progress Notes Interface, Clothes Marker In - 11/06/2005 2:04 AM PST [id number] 10/31/2005 11/04/2005 [id number] TOREY TRIVEDI V [address] [place] [address] or November 04, 2005 Shravan Montanez M.D. [address] [place] [address] RE: FAROOQ LEMA MR #: [id number] Dear Dr. Montanez: We had the pleasure [...] hesitate to give me a call at [phone]. Thank you again for allowing us to participate in Mr. Lema's care. Sincerely, Jaylin Hou P.A.-C. / [id number] / [id number] / [id number] / documented i n this encounter Plan [...] [place] | | | | | | [address] | | | | | | [phone] | | | | | | | | +--------+---------+ + + + documented as of this encounter Visit Diagnoses Not on filedocumented in this encounter"
--- OUTSIDE RECORDS SUMMARY | ~2019-07-14 | XMS | Encounter Summary ---
Demographics + + + | Address | [address] | | | [place] [address] | + + + | Home Phone [...] + + + | Author | [place] [employer] [facility] | + + + | Organization | [facility] | [...] Providers + +------+ + | Care Chemical Waste Management Technician Name | Role | Phone | [...] Adenoma | | 2007 | Visit | [facility] [address] | [place], | ([facility]); 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Ave Mailcode: CH8N | DNP,MACHINE SCALLOP CUTTER,[place] [address] | Hormone Deficiency | | | | [place] for [facility] | [address] [place], | ([facility]); 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, | [place] [address] | Insipidus ([facility]); | | | | Building [address] | [phone] | Hypogonadism Male; | | | | [place], [place] | | Hypothyroid; Adrenal | | | | [address]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 ([facility]) | | | | [phone] | | | +--------+---------+ + + + [...] | | 2020 | Visit | | [address] | | | | | | [address] | | | | | | [place], [place] | | | | | | [address] | | | | | | [phone] | | | | | | | [...] ([address] [facility]) | | | [facility] | | | [address] [place], [place] | | | [address] | | + + + + + + + + | Performing | Address | City/State/Zipcode | Phone Number | | Organization | | | | + + + + + | [facility] | [address] | [place] [address] | | | LABORATORY | | | [...] change effective 05/31/07 | | | RLB ([facility]) [facility] | | | [place] [address] [facility] [address] | | | [place] [address] | | + + + + + + + + | Performing | Address | City/State/Zipcode | Phone Number | | Organization | | | | + + + + + | [facility] | [address] | [place] [address] | | | LABORATORY | | | [...] RL ([facility] [facility]) | | | [facility] [place] [address] | | | [place] [address] | | + + + + + + + + | Performing | Address | City/State/Zipcode | Phone Number | | Organization | | | | + + + + + | [facility] | [address] | [place] [address] | | | LABORATORY | | | [...] RLB ([address] [facility]) | | | [facility] [place] [address] | | | [place] [address] | | + + + + + + + + | Performing | Address | City/State/Zipcode | Phone Number | | Organization | | | | + + + + + | [facility] | [address] | [place] [address] | | | LABORATORY | | | [...] [facility] | | | | | | [facility] | | | | + + + + + + + + | Specimen | + + | Blood - Blood | + + + + + + + | Performing | Address | City/State/Zipcode | Phone Number | | Organization | | | | + + + + + | [facility] | [address] | [place] [address] | | | LABORATORY | | | [...] change effective | | | 05/31/07 RL ([facility] [facility]) | | | [facility] [place] [address] [facility] | | | [place] [address] | | + + + + + + + + | Performing | Address | City/State/Zipcode | Phone Number | | Organization | | | | + + + + + | [facility] | [address] | [place] [address] | | | LABORATORY | | | [...] At | + + + | RLB ([facility]) [facility] | | | [place] [address] | | | [place] [address] Reference | | | Range change effective 05/31/07 | | + + + + + + + + | Performing | Address | City/State/Zipcode | Phone Number | | Organization | | | | + + + + + | [facility] | [address] | [place] [address] | | | LABORATORY | | | [...] RLB ([address] [facility]) | | | [facility] [place] [address] | | | [place] [address] | | + + + + + + + + | Performing | Address | City/State/Zipcode | Phone Number | | Organization | | | | + + + + + | [facility] | [address] | [place] [address] | | | LABORATORY | | | [...] Performed At | + + + | [id number] Estimated GFR > 60 mL/min/1.73 sq m if non- | [facility] | | Liberian [id number] Estimated GFR > 60 mL/min/1.73 sq m if | DEPARTMENT OF | | Liberian GFR is estimated using the MDRD equation [...] + + + | [facility] | [address] [place] [address] | [place] [address] | | | PATHOLOGY | [address] | | | + + + + + | [facility] | [address] [facility] | [place] [address] | | | PATHOLOGY | [address] [...] ([address] [facility]) | | | [facility] | | | [address] [place], [place] | | | [address] | | + + + + + + + + | Performing | Address | City/State/Zipcode | Phone Number | | Organization | | | | + + + + + | [facility] | [address] | [place] [address] | | | LABORATORY | | | [...] | | | | | performed by [place] | | | | | | [facility] | | | | | | Laboratories. [...] | + + + + + | [facility] | [address] | [place] [address] | | | LABORATORY | | | [...]
--- OUTSIDE RECORDS SUMMARY | ~2019-07-14 | XMS | Encounter Summary ---
Demographics + + + | Address | [address] | | | [place] [address] | + + + | Home Phone [...] + + + | Author | [place] [employer] [facility] | + + + | Organization | [facility] | + + + | Address | Unknown | + + + | Phone | Unavailable | + + + Support + + +---------+ + | Name | Relationship | Address | Phone | + + +---------+ + | Alexandria Dixon | ECON | Unknown | | + + +---------+ + Care Team Providers + +------+ + | Care Grain Merchandiser Name | Role | Phone | [...] [address] | | | | | [employer] | [place], [place] | | | | | [place], [place] | [address] | | | | | [address] | [phone] | | | | | [phone] | | | +--------+--------+ + + + [...] Rd | | | | | | [place], [place] | | | | | | [address] | | | | | | [phone] | | | | | | | | +--------+---------+ + + + documented as of this encounter Visit Diagnoses Not on filedocumented in this encounter"
--- OUTSIDE RECORDS SUMMARY | ~2019-07-14 | XMS | Encounter Summary ---
Demographics + + + | Address | [address] | | | [place] [address] | + + + | Home Phone [...] + + + | Author | [place] [employer] [facility] | + + + | Organization | [facility] | [...] Team Providers + +------+ + | Care Butcher Chicken And Fish Name | Role | Phone | + [...] | | | | | | [place], | | | | | | | [place] | | | | | | | [address] | | | | | | | Phone: | | | | | | | [phone] | | | | | | | Fax: | | | | | | | [phone] | +--------+--------+ + + + + Encounter Details +--------+---------+ + + + | Date | Type | Department | Care Team | Description | +--------+---------+ + + + | 09/17/ | Office | Neurosurgery at | [place], | Carpal Tunnel | | 2007 | Visit | [facility] [address] | [place] [address] | Syndrome (Primary | | | | Ave Mailcode: CH8N | [address] | Dx) | | | | [facility] | [place] [address] | | | | | and [place], | | | | | | [facility] | | | | | | [place], [place] | | | | | | [address] | | | | | | [phone] | | | +--------+---------+ + + + [...] below the elbows. He feels like his customer sales consultant is weak and it is starting to [...] delt, tricep, bicep, we, fa; 4/5 bilat customer sales consultant Sens decr to LT over bilat 5th [...] | | 2019 | Visit | | [address] [facility] | | | | | | [address] | | | | | | [place], [place] | | | | | | [address] | | | | | | [phone] | | | | | | | [...]
--- OUTSIDE RECORDS SUMMARY | ~2019-07-14 | XMS | Encounter Summary ---
Demographics + + + | Address | [address] | | | [place] [address] | + + + | Home Phone [...] + + | Author | [place] [employer] [facility] | + + + | Organization | [facility] | [...] + +------+ + | Care Automotive Tire Technician Name | Role | Phone | [...] Refill Request | | 2012 | | [facility] [address] | [place], | | | | | [place] Mailcode: CH8N | DNP,EMPLOYMENT LAW ATTORNEY,[place] [address] | | | | | [facility] | [address] [place], | | | | | and Healing, | [place] [address] | | | | | Building [address] | [phone] | | | | | [place], [place] | | | | | | [address] | | | | | | [phone] | | | +--------+--------+ + + + [...] Rd | | | | | | [place], [place] | | | | | | [address] | | | | | | [phone] | | | | | | | | +--------+---------+ + + + documented as of this encounter Visit Diagnoses Not on filedocumented in this encounter"
--- OUTSIDE RECORDS SUMMARY | ~2019-07-14 | XMS | Encounter Summary ---
Demographics + + + | Address | [address] | | | [place] [address] | + + + | Home Phone [...] + + + | Author | [facility] | | | and [place] | + + + | Organization | [facility] | [...] Team Providers + +------+ + | Care Pattern Wheel Maker Name | Role | Phone | + +------+ + | Priscilla Ramírez PA-C | PCP | | + +------+ + Encounter Details +--------+ + + + + | Date | Type | Department | Care Team | Description | +--------+ + + + + | 03/06/ | Orders Only | [facility] | Provider, | | | 2019 | | SYSTEM GENERIC OP | [address] | | | | | [address] | [place] | | | | | [address] [place], [place] | [place] [address] | | | | | [address] | | | | | | [phone] | | | +--------+ + + + [...] [place] | | | | | | [address] | | | | | | | | +--------+---------+ + + + documented as of this encounter Visit Diagnoses Not on filedocumented in this encounter"
--- OUTSIDE RECORDS SUMMARY | ~2019-07-14 | XMS | Encounter Summary ---
Demographics + + + | Address | [address] | | | [place] [address] | + + + | Home Phone [...] + + | Author | [facility] | | | and [place] | + + + | Organization | [facility] | | | and [place] | + + + | Address | Unknown | + + + | Phone | Unavailable | + + + Support + + +---------+ + | Name | Relationship | Address | Phone | + + +---------+ + | Kiara Dixon | ECON | Unknown | | + + +---------+ + | Radha Shcmitt | ECON | Unknown | | + + +---------+ + Care Team Providers + +------+ + | Care Workers Compensation Legal Secretary Name | Role | Phone | [...] | [address] Champion | | | | Wet Room Worker / | Obstructive | Bren H, | D, PA [address] | | | | Sleep | sleep apnea | [address] | | | | Medicine | (adult) | NW | [place], | | | | | (pediatric) | [place] | [place] [address] | | | | | [address] | [address] | Phone: | | | | | [address] | [place], | [phone] | | | | | [address] | [place] | Fax: | | | | | CARDS | [address] | [phone] | | | | | Procedures | Phone: | | | | | | [place] OFFICE | [phone] | | | | | | OUTPATIENT | Fax: | | | | | | VISIT 25 | [phone] | | | | | | MINUTES | | | | | | | OFFICE VISIT | | | | | | | EXTENDED | | | +--------+--------+ + + + + Encounter Details +--------+---------+ + + + | Date | Type | Department | Care Team | Description | +--------+---------+ + + + | 01/14/ | Office | [facility] | Sumanth Champion PA | MALLIKA on CPAP (Primary | | 2018 | Visit | SLEEP DISORDER [address] | [address] | Dx) | | | | [address] | [place] | | | | | [place] [address] | [address] | | | | | [phone] | | | +--------+---------+ + + + [...] in this encounter Progress Notes Kristen Saravia, [employer] - 01/14/2018 2:30 PM PDTFormatting of this note might b e different from the original. 01/14/18 1300 Bolanos Depression Inventory-II Depression Score 22 - Moderate depression Insomnia Severity Index Insomnia Severity Index 15 [place] Sleepiness Scale Sitting and reading 1 Watching [...] Exam Assessment: Problem #1: OBSTRUCTIVE SLEEP APNEA (AFQ74-D02.33) This is controlled with CPAP. He continues to struggle with wearing his CPAP consistently and with wearing it for the duration of the night. Plan: 1. He is to continue with CPAP indefinitely. 2. I have recommended that he continue to work toward wearing his CPAP 100% of the time he is asleep. 3. He is to go to [facility] [place] to replace his mask and any other necessary equipment. I will follow up again in 6 months, sooner prn. Fifteen minutes were spent szeh-aj-kslu, w ith the majority of time spent [...] [place] | | | | | | [address] | | | | | | | | +--------+---------+ + + + documented as of this encounter Visit Diagnoses + + | Diagnosis | + + | MALLIKA on CPAP - Primary Obstructive sleep apnea (adult) (pediatric) | + + documented in this encounter"
--- OUTSIDE RECORDS SUMMARY | ~2019-07-14 | XMS | Encounter Summary ---
Demographics + + + | Address | [address] [facility] | | | [place] [address] | + + + | Home Phone [...] + + + | Author | [employer] [facility] | + + + | Organization | [facility] [...] Team Providers + +------+ + | Care Vegetable Farmworker Name | Role | Phone | [...] | Catheterizati | Coronary | Zuleika, | Dredging Inspector | | | | on | artery | MD [address] | [address] | | | | | disease of | [address] | [address] | | | | | chitina | [address] | [address] [facility] | | | | | artery of | [facility] | | | | | chitina heart | [address] | [place], [place] | | | | | with stable | Phone: | [phone] | | | | | angina | [phone] | Phone: | | | | | pectoris | Fax: | [phone] | | | | | (HCC) | [phone] | Fax: | | | | | Procedures | | [phone] | | | | | CHARGE AUDITOR INT | | | | | | | CORONARY | | | | | | | ANGIOGRAM | | | | | | | TN CORONARY | | | | | | | ARTERY ANGIO | | | | | | | S&I TN | | | | | | [...] + + + + | 04/13/ | Hospital | [facility] [address] | Galdino Ramirez | | | 2018 | Encounter | [address] | MD Josef [address] | | | | | [address] [facility] | [place], [place] | | | | | [place], [place] | [address] | | | | | [address] | [phone] | | | | | [phone] | | | +--------+ + + + [...] Pressure | 120/69 | 04/13/2018 12:30 PM | | | | | PDT | | + + + + + | Pulse | 55 | 04/13/2018 1:00 PM | | | | | PDT | | + + + + + | Temperature | 36.6 C (97.9 F) | 04/13/2018 10:30 AM | | | | | PDT [...] kg (270 lb | 04/13/2018 7:26 AM | | | | 11.6 oz) | PDT | | + + + + + | Height | 172.7 cm (5' 8") | 04/13/2018 7:26 AM | | | | | PDT | | + + + + + | Body Mass Index | 41.16 | 04/13/2018 7:26 AM | | | | | PDT | | + + + + + documented in this encounter Discharge Instructions Instructions Lester Rodriguez RN - 04/13/2018.Outpatient Percutaneous Cardiac Intervention Instructions Activity: For the first 24 hours: ? NO DRIVING ? No lifting more than 5 pounds. ? No shower ? No activity involving excessive pushing or pulling of the affected arm or leg For the first week: ? No lifting more than 5-10 pounds for 7 days ? No swimming, bathing, or submersion in water for 7 days. ? Increase activity as tolerated ? You may return to work after 3 days unless you have a job that requires heavy manual labo r or lifting > 20 lbs, in which case, you may return to work after 7 days ? You were referred for cardiac rehab and should start within 1-2 weeks. Wound Care ? Keep your affected area clean and dry ? You may remove the bandage tomorrow morning and replace it with a Band-Aid ? Development of a bruise in the few days following your procedure is not unusual ? Some discomfort in the arm or leg for up to a week is not unusual, but it should be gradu ally improving If you have bleeding from the puncture site: 1. Lie down and apply firm pressure to site with your fingers for 10 minutes. 2. When the bleeding stops, continue to lie flat, keeping your leg or wrist straight for 2 hours. Notify your doctor as soon as possible. 3. If bleeding does not stop after 10 minutes or if there is a large amount of bleeding or spurting, call [address] yourself to the hospital. Reasons to call your Doctor: ? If you have pain that is getting worse rather than better ? If you have bleeding from the puncture site. ? If your leg or wrist/hand develops a rash, pale, cold, numb, tingling (pins and needles), purple or red discoloration. ? If you get severe chest pain, call 911. How to Reach your Doctor: Thursday 8:00 4:00 call Cardiac Catheterization Lab at . For Cardiac Catheterization related emergencies after hours, weekends, and holidays, call [facility] at and ask to have the Auto Clutch Rebuilder on-call paged. Discharge Medications ? Plavix (clopidogrel) It is important that you take Plavix every day for one year kianna use it helps to keep the stent open. You need to take it every day and do not stop it unless you are told to by your park naturalist. ? Take an aspirin 325mg once daily for 3 months and then decrease it to 81mg once daily. ? No elective surgeries for one year. documented in this encounter Medications at Time [...] documented as of this encounter Progress Notes Vito Jay Md - 04/13/2018 12:47 PM PDT Post Cardiac Catheterization Access Check S: The patient feels well and denies symptoms in the hand/wrist or groin/leg Eating and drinking No speech deficits No chest pain Last 24 hour min/max Temp: 36.6 C (97.9 F) Temp Min: 36.6 C (97.9 F) Max: 36.8 C (98.2 F) Heart Rate: 59 Pulse Min: 54 Max: 74 Resp: 12 Resp Min: 10 Max: 27 BP: 120/69 BP Min: 117/69 Max: 145/80 SpO2: 99 % SpO2 Min: 91 % Max: 100 % Body mass index is 41.16 kg/m. PE Gen: appears well Neuro: no deficits Radial access site appears normal with no hematoma or oozing. Radial pulse is 2+ with rossy l Reverse Barbeau test. There are no embolic phenomena in hand. femoral access site appears normal with no hematoma or oozing. Femoral and DP pulses are 2+ with no embolic phenomena in distal extremity Intake/Output Summary (Last 24 hours) at 04/13/18 1247 Last data filed at 04/13/18 1006 Gross per 24 hour Intake 200 ml Output 0 ml Net 200 ml ECG: normal sinus without ischemic changes A/P: No evidence of acute complications following procedure. The patient will stay in [facility] with his family member Discharge Vito Jay MD Auto Clutch Rebuilder [facility] Pager [phone] Vito Ortiz Md - 11/2017 10:14 AM PDTCardiology Preliminary Procedure Note (Full report to follow) Primary Care Provider: Priscilla Ramírez PA-C Referring Provider: Dredging Inspector Staff: Galdino Ramirez M.D. Procedure(s): Coronary Angiography Percutaneous Coronary Intervention (PCI) Indications: CCS Access: 5F RRA 6F RFA Post Procedure Access: No evidence of distal limb ischemia or distal embolization Estimated Blood Loss: 10 mL Medications: Fentanyl 200 mcg Route: IV Heparin 9000 units Route: IV Midazolam 4 mg Route: IV Nitroglycerin 200 mcg Route: IA Verapamil 2 mg Route: IA Contrast: 125 mL Omnipaque Findings: Coronary Angiography: -Chronic occlusion of RCA -Patent stent in LAD -Patent stent in LCx -99% ostial diagonal stenosis Intervention: Baloon angioplasty to diagonal Complications: None Hemostasis: Vascular closure device: Perclose. TR Band. Recommendations: Patient Status: Observation status after recovery is complete for ongoing treatment, assess ment and reassessment post PCI Usual post cath care. Follow up care as directed by referring provider: Zuleika Hernandez MD. Bed rest for 2 hours after hemostasis is obtained. Right wrist immobile for 2 hours. ASA indefinitely. Clopidogrel 75 mg once daily for at least 6 months. Vito Jay MD Interventional Auto Clutch Rebuilder [facility] Pager [phone] documented in this enco unter Plan of Treatment +--------+---------+ + + + | Date | Type | Specialty | Care Team | Description | +--------+---------+ + + + | 08/15/ | Office | Cardiology | Zuleika Hernandez, | | | 2019 | Visit | | [address] | | | | | | [address] | | | | | | [place], [place] | | | | | | [address] | | | | | | [phone] | | | | | | | | +--------+---------+ + + + documented as of this encounter Procedures + +--------+ + + + | Procedure Name | Priori | Date/Time | Associated Diagnosis | Comments | | | ty | | | | + +--------+ + + + | CARDIAC CATH | | 04/13/2018 | | Results for this | | | | 11:55 AM | | procedure are in the | | | | PDT | | results section. | + +--------+ + + + | 12 LEAD ECG | Routin | 04/13/2018 | | Results for this | | | e | 10:40 AM | | procedure are in the | | | | PDT | | results section. | + +--------+ + + + | ACT, POC-CCL ONLY | Routin | 04/13/2018 | Coronary artery | Results for this | | | e | 9:43 AM | disease of chitina | procedure are in the | | | | PDT | artery of chitina | results section. | | | | | heart with stable | | | | | | angina pectoris | | | | | | (HCC) | | + +--------+ + + + | BASIC METABOLIC SET | Urgent | 04/13/2018 | | Results for this | | (NA, K, CL, TCO2, | | 7:41 AM | | procedure are in the | | BUN, CR, GLU, CA) | | PDT | | results section. | + +--------+ + + + | CAPILLARY BLOOD | Routin | 04/13/2018 | Coronary artery | Results for this | | GLUCOSE (NO CHG), | e | 7:35 AM | disease of chitina | procedure are in the | | POC | | PDT | artery of chitina | results section. | | | | | heart with stable | | | | | | angina pectoris | | | | | | (HCC) | | + +--------+ + + + | INTRAPROCEDURE | Routin | 04/13/2018 | | Results for this | | IMAGING | e | 7:01 AM | | procedure are in the | | | | PDT | | results section. | + +--------+ + + + | CHARGE AUDITOR INT | Routin | 04/13/2018 | Coronary artery | Results for this | | CORONARY ANGIOGRAM | e | 6:16 AM | disease of chitina | procedure are in the | | | | PDT | artery of chitina | results section. | | | | | heart with stable | | | | | | angina pectoris | | | | | | ([facility]) | | + +--------+ + + + | CARDIOLOGY | | 04/13/2018 | | Results for this | | | | 12:00 AM | | procedure are in the | | | | PDT | | results section. | + +--------+ + + + documented in this encounter Results CARDIAC CATH (04/13/2018 11:55 AM PDT) + + | Procedure Note | + + | Vito Jay Md - 04/13/2018 11:55 AM PDT DATE OF PROCEDURE:April 13 | | 2018PERFORMING PHYSICIAN:Georges Urrutia M.D.Flight Dispatcher, MedicineDepartment of | | CardiologyFELLOW:Vito Jay M.D.Fellow Interventional CardiologyOdalis Thomas, | | FellowGeneral CardiologyPROCEDURES PERFORMED:1. Selective left and right coronary | | angiography.2. Balloon angioplasty to diagonal.INDICATION FOR PROCEDURE:CCS grade 3 | | angina.CLINICAL HISTORY:Mr. Amairani Ulloa is a 37-year-old man with a history of | | premature coronary artery disease. He has had stenting of the proximal left anterior | | descending and proximal circumflex, as well as a known chronic occlusion of the right | | coronary artery. He was referred today for coronary angiography by Dr. Zuleika Hernandez | | for the indication of CCS 3 angina in spite of maximal medical therapy for anginal | | treatment.COMPLICATIONS:None.ACCESS:1. Right radial artery, 5-Equatorial [place] sheath.2. Right | | femoral artery, 6-[place] sheath.ESTIMATED BLOOD LOSS:10 mL.MEDICATIONS:1. Clopidogrel | | 600 mg p.o.2. Fentanyl 200 mcg IV.3. Heparin 9000 units IV.4. Midazolam 4 mg IV.5. | | Nitroglycerin 200 mcg IA.6. Verapamil 2 mg IA.SEDATION:I personally supervised the | | administration of conscious sedation to the patient for a total of 78 | | minutes.FLUOROSCOPY TIME:15 minutes.FLUOROSCOPY DAP:[id number]:Omnipaque 125 | | mL.PROCEDURAL NARRATIVE:A full PARQ conversation was had and written informed consent | | was obtained. Patient was brought to the cardiac clinical laboratory science professor in a fasting state. Right | | wrist and groin were cleaned and draped in the usual fashion, and a team pause was | | performed. Using 1% lidocaine, the right wrist was injected locally. A 5/6 Glidesheath | | was placed in the right radial artery using a modified Seldinger technique. A standard | | radial artery cocktail was given. We performed a radial artery angiography, which | | demonstrated a moderate loop in the radial artery. We were able to advance a Wholey | | wire with a 5-[place] JR4 catheter past the loop and it straightened out. We then | | advanced this wire and catheter into the ascending aorta, removed the wire, flushed | | catheter and aspirated it, and performed selective angiography of the right coronary | | artery. At this point, the patient started having radial artery spasm and we were | | unable to advance any other catheters, including a 4-[place] JL4 catheter, beyond the | | area with the loop. After a few more attempts, we decided to swtich to femoral access. | | Femoral access was obtained after using anatomic and fluoroscopic landmarks to identify | | the appropriate puncture site. 1% lidocaine was injected locally and a modified | | Seldinger technique was used to place a 5-[place]atorial [place] sheath in the right femoral artery. A | | 4-[place] JL4 catheter was then advanced to the ascending aorta over a wire from the | | right femoral artery sheath. The wire was removed, the catheter was aspirated and | | flushed, and used to perform coronary angiography of the left system.HEMODYNAMICS:1. | | Aortic pressure 108/74 mmHg with a mean of 88 mmHg.2. Heart rate 61 beats per | | minute.CORONARY ANGIOGRAPHY:Left main: The left main is a large caliber vessel that | | bifurcates into the circumflex and the left anterior descending. There is no disease in | | the left main.Left anterior descending: This is a large caliber vessel that reaches | | the cardiac apex and wraps around. There is 1 large first diagonal branch with a 95% | | ostial stenosis, followed by a second small diagonal branch, as well as several small | | septal perforators. There is evidence of prior stent in the proximal left anterior | | descending that jails the first diagonal branch. There is no evidence of angiographic | | restenosis in the left anterior descending stent. The mid and distal left anterior | | descending have mild luminal irregularities without high-grade stenosis. The septal | | branches contribute to collateral filling of the right coronary artery.Left circumflex: | | The left circumflex is a large caliber vessel that is nondominant and arises from the | | left main. It gives rise to a few diminutive obtuse marginals, followed by 3 larger | | obtuse marginals. There is evidence of a prior stent in the proximal circumflex without | | angiographic evidence of restenosis. There is a 30% stenosis at the ostium of the | | second obtuse marginal, which bifurcates. There is also collateral filling arising from | | the distal circumflex that fills the right coronary artery.Right coronary artery: This | | is a moderate caliber dominant vessel with a normal course. It gives rise to small | | acute marginal branches before it is chronically occluded in the mid portion. The | | posterior descending artery and distal right coronary artery fill via [id number] | | collaterals and are not fully opacified on this study. The proximal cap of the right | | coronary occlusion is ambiguous.PERCUTANEOUS CORONARY INTERVENTION:After ensuring | | therapeutic ACT, we elected to move forward with percutaneous coronary intervention to | | the diagonal branch. The 4-Equatorial [place] JL4 catheter was exchanged over a wire for a 6-[place] | | XB3 guide catheter, which was advanced into the ascending aorta, aspirated and flushed | | and used to selectively engage the left main. An Insticator guidewire was then | | advanced into the distal left anterior descending. A 0.014 BMW guidewire was advanced | | across the diagonal lesion and positioned in the distal vessel. A 2.5 x 12 mm Euphora | | compliant balloon was advanced across the diagonal lesion and positioned just into the | | LAD. The baloon was inflated to 14 atmospheres for 28 seconds. We repeated angiography, | | which demonstrated good lesion modification without evidence of perforation, | | thrombosis, or dissection. We then repeated balloon inflation for 48 seconds at 14 | | atmospheres. An [employer] bear river IVUS catheter was then advanced across the diagonal | | lesion for IVUS evaluation. IVUS demonstrated well-expanded plaque in the ostial | | diagonal with a minimal luminal diameter of 2.5 mm. There was no evidence of dissection | | on the IVUS. The wires were then removed from the LAD and diagonal, and repeat | | angiography in 2 orthogonal planes demonstrated no evidence of thrombosis, perforation, | | or dissection. The guide catheter was disengaged from the coronary and removed from the | | body over a wire. Femoral artery angiography was performed, which demonstrated | | appropriate anatomy for vascular closure device, and a Perclose device was used to seal | | the right femoral artery. A TR band was placed over the radial artery sheath, and | | patent hemostasis was confirmed.CONCLUSION:1. Patent stents in the left anterior | | descending and left circumflex.2. Chronically occluded mid right coronary artery with | | [id number]-gn-szdze collateral filling of the right coronary artery and posterior descending | | artery.3. 95% stenosis of the ostial first large diagonal branch treated with balloon | | angioplasty.RECOMMENDATIONS:1. The patient should be observed after PCI and have | | standard post catheterization care.2. Aggressive risk factor modification, including | | cardiac rehabilitation. 3. Continued dual antiplatelet therapy for a minimum of 6 months | | and continued antianginal therapy with beta-nitesh, calcium channel nitesh, and | | ranolazine.4. Followup with referring provider. Pursuant to Federal Medicare | | requirements, Dr. Georges Urrutia was present for the entire procedure and participated | | directly in the generation of this report.Stan Chung, [facility]/MODLDD: | | 04/13/2018 11:02:09DT: 04/13/2018 11:55:11Job #: [id number] | |After ensuring therapeutic ACT, we elected to move forward with percutaneous coronary inter vention to the diagonal branch. The 4-[place]atorial [place] JL4 catheter was exchanged over a wire for a 6 -[place] XB3 guide catheter, | |which was advanced into the ascending aorta, aspirated and flushed and used to selectively engage the left main. An Insticator guidewire was then advanced into the distal left an terior descending. A 0.014 BMW | |guidewire was advanced across the diagonal lesion and positioned in the distal vessel. A 2 .5 x 12 mm Euphora compliant balloon was advanced across the diagonal lesion and positioned just into the LAD. The baloon | |was inflated to 14 atmospheres for 28 seconds. We repeated angiography, which demonstrated good lesion modification without evidence of perforation, thrombosis, or dissection. We th en repeated balloon | |inflation for 48 seconds at 14 atmospheres. An [employer] bear river IVUS catheter was then a dvanced across the diagonal lesion for IVUS evaluation. IVUS demonstrated well-expanded plaq ue in the ostial diagonal with a | |minimal luminal diameter of 2.5 mm. There was no evidence of dissection on the IVUS. The wires were then removed from the LAD and diagonal, and repeat angiography in [address] demonstrated no evidence of | |thrombosis, perforation, or dissection. The guide catheter was disengaged from the coronar y and removed from the body over a wire. Femoral artery angiography was performed, which de monstrated appropriate anatomy for | |vascular closure device, and a Perclose device was used to seal the right femoral artery. A TR band was placed over the radial artery sheath, and patent hemostasis was confirmed. | | | |CONCLUSION: | |1. Patent stents in the left anterior descending and left circumflex. | |2. Chronically occluded mid right coronary artery with bjvl-hd-[id number] collateral filling of the right coronary artery and posterior descending artery. | |3. 95% stenosis of the ostial first large diagonal branch treated with balloon angioplasty. | | | |RECOMMENDATIONS: | |1. The patient should be observed after PCI and have standard post catheterization care. | |2. Aggressive risk factor modification, including cardiac rehabilitation. | |3. Continued dual antiplatelet therapy for a minimum of 6 months and continued antianginal therapy with beta-nitesh, calcium channel nitesh, and ranolazine. | |4. Followup with referring provider. | | | |Pursuant to Federal Medicare requirements, Dr. Georges Urrutia was present for the entire pro cedure and participated directly in the generation of this report. | | | | | | | |Vito Jay MD | | | | | |Georges Urrutia Md | |ACR/MODL | | | | | | /[id number] | + + 12 LEAD ECG (04/13/2018 10:40 AM PDT) + + + + + [...] + + + + | P-R | 177 | ms | [facility] | | | INTERVAL | | | OF | | | | | | CARDIOLOGY | | + + + + + + | P AXIS | 27 | deg | [facility] | | | | | | OF | | | | | | CARDIOLOGY | | + + + + + + | QRS | 98 | ms | [facility] | | | DURATION | | | OF | | | | | | CARDIOLOGY | | + + + + + + | QT | 411 | ms | [facility] | | | | | | OF | | | | | | CARDIOLOGY | | + + + + + + | QTCB | 410 | ms | [facility] | | | | | | OF | | | | | | CARDIOLOGY | | + + + + + + | R AXIS | 3 | deg | [facility] | | | | | | OF | | | | | | CARDIOLOGY | | + + + + + + | T AXIS | 47 | deg | [facility] | | | | | | OF | | | | | | CARDIOLOGY | | + + + + + + | ECG | Sinus rhythm | | [facility] | | | IMPRESSION | | | OF | | | | | | CARDIOLOGY | | + + + + + + | ECG | Inferior infarct, old | | [facility] | | | IMPRESSION | | | OF | | | | | | CARDIOLOGY | | + + + + + + | ECG | ST elevation, consider | | [facility] | | | IMPRESSION | anterolateral injury- | | OF | | | | ABNORMAL ECG - | | CARDIOLOGY | | + + + + + + | ECG | Electronically signed | | [facility] | | | IMPRESSION | by: PJ HUDSON | | OF | | | | 04-14-2018 21:35:11 | | CARDIOLOGY | | + + [...] | + + + + + | [facility] DEPT OF | [address] | [place], [place] | | | CARDIOLOGY | [address] | [address] | | + + + + + ACTJEF-CCL ONLY (04/13/2018 9:43 AM PDT) + +-------+ + + + | Component | Value | Ref Range | Performed | Pathologist | | | | | At | Signature | + +-------+ + + + | ACT, POC | 265 | 90 - 150 | [facility] - | | | CCL | | | [place] | | | INTRAPROC | | | [place], [place]INT | | [...] ROXY | [address] | [place], [place] | | | [facility] | [facility] | [address] | | | TESTS | | | | + + + + + BASIC METABOLIC SET (NA, K, CL, TCO2, BUN, CR, GLU, CA) (04/13/2018 7:41 AM PDT) + +---------+ + + + | Component | Value | Ref Range | Performed | Pathologist | | | | | At | Signature | + +---------+ + + + | GLUCOSE, | 118 (H) | 70 - 99 mg/dL | [facility] | | | PLASMA | | | LABORATORY | | | (LAB) | | | SERVICES, | | | | | | CORE | | + +---------+ + + + | BUN, PLASMA | 17 | 6 - 20 mg/dL | [facility] | | | (LAB) | | | LABORATORY | | | | | | SERVICES, | | | | | | CORE | | + +---------+ + + + | CREATININE | 1.05 | 0.70 - 1.30 | [facility] | | | PLASMA | | mg/dL | LABORATORY | | | (LAB) | | | SERVICES, | | | | | | CORE | | + +---------+ + + + | EGFR | >60 | >60 mL/min | [facility] | | | - | | | LABORATORY | | | FINNISH | | | SERVICES, | | | [...] the MDRD equation recommended by the | [facility] | | National Kidney Disease Education Program. [...] | + + + + + | [facility] LABORATORY | [address] [facility] | [place] [address] | | | VITALY RANKIN | [address] | | | + + + + + CAPILLARY BLOOD GLUCOSE (NO CHG), POC (04/13/2018 7:35 AM PDT) + +---------+ + + + | Component | Value | Ref Range | Performed | Pathologist | | | | | At | Signature | + +---------+ + + + | BLOOD | 125 (H) | 60 - 99 [...] + + + + + | MIRTHA Morocho FAIZANYAAKOVJOHANNA | [address] | [place], [place] | | | KASHIF [facility]NE [facility] | [facility] | [address] | | | TESTS | | | | + + + + + INTRAPROCEDURE IMAGING (04/13/2018 7:01 AM PDT) + + | Specimen | + + | | + + + + + | Narrative | Performed At | + + + | See admission or procedure notes for details of any intraprocedure | | | images obtained. | | + + + CHARGE AUDITOR INT CORONARY ANGIOGRAM (04/13/2018 6:16 AM PDT) + + | Specimen | + + | | + + + + + | Narrative | Performed At | + + + | Procedure performed in the Cardiac Dredging Inspector. See procedure notes | | | for details. 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 | | (HCC) | + + documented in this encounter Administered Medications + +--------+---------+------+------+------+ | Medication Order | MAR | Action | Dose | Rate | Site | | | Action | Date | | | | + +--------+---------+------+------+------+ + +---+ | aspirin EC tablet 81 mg 81 mg, | | | oral, DAILY, First dose on Thu | | | 04/14/18 at 0900, Until | | | Discontinued | | + +---+ | | | + +---+ | clopidogrel (PLAVIX) tablet 75 | | | mg 75 mg, oral, DAILY, First | | | dose on Thu04/14/18 at 0900, Until | | | Discontinued | | + +---+ | | | + +---+ + +-------+ +--------+---+---+ | clopidogrel (PLAVIX) tablet | Given | 04/13/20 | 600 mg | | | | oral, INTRAPROCEDURE PRN, | | 18 10:16 | | | | | Starting 04/13/18 at 1016, | | AM PDT | | | | | Until 04/13/18 at 1920 | | | | | | + +-------+ +--------+---+---+ +---+---+ | | | +---+---+ + +-------+ +--------+---+---+ | fentaNYL (SUBLIMAZE) injection | Given | 04/13/20 | 50 mcg | | | | intravenous, INTRAPROCEDURE PRN, | | 18 9:13 | | | | | Starting 04/13/18 at 0848, | | AM PDT | | | | | Until Thu04/13/18 at 1920 | | | | | | + +-------+ +--------+---+---+ +-------+ +--------+---+---+ | Given | 04/13/20 | 50 mcg | | | | | 18 8:59 | | | | | | AM PDT | | | | +-------+ +--------+---+---+ | Given | 04/13/20 | 50 mcg | | | | | 18 8:54 | | | | | | AM PDT | | | | +-------+ +--------+---+---+ +---+---+ | | | +---+---+ + +-------+ +--------+---+---+ | heparin injection intravenous, | Given | 04/13/20 | 7,000 | | | | INTRAPROCEDURE PRN, Starting Tue | | 18 9:36 | Units | | | | 04/13/18 at 0907, Until 04/13/18 | | AM PDT | | | | | at 1920 | | | | | | + +-------+ +--------+---+---+ +-------+ +--------+---+---+ | Given | 04/13/20 | 2,000 | | | | | 18 9:07 | Units | | | | | AM PDT | | | | +-------+ +--------+---+---+ +---+---+ | | | +---+---+ + +-------+ +--------+---+---+ | iohexol (OMNIPAQUE) 350 mg | Given | 04/13/20 | 125 mL | | | | iodine/mL injection | | 18 10:05 | | | | | INTRAPROCEDURE PRN, Starting Tue | | AM PDT | | | | | 04/13/18 at 1005, Until 04/13/18 | | | | | | | at 1920 | | | | | | + +-------+ +--------+---+---+ +---+---+ | | | +---+---+ + +-------+ +------+---+---+ | lidocaine (XYLOCAINE) 10 mg/mL | Given | 04/13/20 | 4 mL | | | | (1 %) injection infiltration, | | 18 9:17 | | | | | INTRAPROCEDURE PRN, Starting Tue | | AM PDT | | | | | 04/13/18 at 0855, Until 04/13/18 | | | | | | | at 1920 | | | | | | + +-------+ +------+---+---+ +-------+ +------+---+---+ | Given | 04/13/20 | 9 mL | | | | | 18 9:14 | | | | | | AM PDT | | | | +-------+ +------+---+---+ | Given | 04/13/20 | 1 mL | | | | | 18 8:55 | | | | | | AM PDT | | | | +-------+ +------+---+---+ +---+---+ | | | +---+---+ + +-------+ +------+---+---+ | midazolam (PF) (VERSED) | Given | 04/13/20 | 1 mg | | | | injection INTRAPROCEDURE PRN, | | 18 9:41 | | | | | Starting 04/13/18 at 0848, | | AM PDT | | | | | Until 04/13/18 at 1920 | | | | | | + +-------+ +------+---+---+ +-------+ +------+---+---+ | Given | 04/13/20 | 1 mg | | | | | 18 9:06 | | | | | | AM PDT | | | | +-------+ +------+---+---+ | Given | 04/13/20 | 1 mg | | | | | 18 8:54 | | | | | | AM PDT | | | | +-------+ +------+---+---+ +---+---+ | | | +---+---+ + +---------+ +---------+---+---+ | nitroGLYCERIN 100 mcg/mL NS | New Bag | 04/13/20 | 100 mcg | | | | Intracoronary Intracoronary | | 18 9:58 | | | | | intracoronary, INTRAPROCEDURE | | AM PDT | | | | | CONTINUOUS PRN, Starting Tue | | | | | | | 04/13/18 at 0958, Until 04/13/18 | | | | | | | at 1920 | | | | | | + +---------+ +---------+---+---+ +---+---+ | | | +---+---+ + +---------+ + + +---+ | sodium chloride 0.9 % (NS) IV | New Bag | 04/13/20 | 50 mL/hr | 50 mL/hr | | | infusion INTRAPROCEDURE | | 18 8:50 | | | | | CONTINUOUS PRN, Starting Tue | | AM PDT | | | | | 04/13/18 at 0850, Until 04/13/18 | | | | | | | at 1920 | | | | | | + +---------+ + + +---+ +---+---+ | | | +---+---+ documented in this encounter
--- OUTSIDE RECORDS SUMMARY | ~2019-07-14 | XMS | Encounter Summary ---
Demographics + + + | Address | [address] | | | [place] [address] | + + + | Home Phone [...] + + | Author | [place] [employer] [facility] | + + + | Organization | [facility] [...] Providers + +------+ + | Care Client Service Associate Name | Role | Phone | + +------+ + | Priscilla Ramírez PA-C | PCP | | + +------+ + Encounter Details +--------+ + + + + | Date | Type | Department | Care Team | Description | +--------+ + + + + | 02/27/ | Ancillary | Registration 3181 | Donnie, | | | 2005 | Registratio | [facility] Kimo | Cathie | | | | n | Abdoulaye Mailcode: [id number] | DNP,TRADITIONAL [employer]ACTITIONER,[place] [address] | | | | | [place], [place] | [address] [place], | | | | | [address] | [place] [address] | | | | | [phone] | [phone] | | | | | | | [...] | | 2020 | Visit | | [address] [facility] | | | | | | [address] | | | | | | [place], [place] | | | | | | [address] | | | | | | [phone] | | | | | | | [...] Performed At | + + + | [id number] Estimated GFR > 60 mL/min/1.73 sq m if non- | [facility] | | [id number] Estimated GFR > 60 mL/min/1.73 sq m [...] | [facility] | [address] | [place] [address] | | | PATHOLOGY | [address] | | | + + + + + | [facility] | [address] | [place] [address] | | | PATHOLOGY | [address] | | | + + + + + documented in this encounter Visit Diagnoses Not on filedocumented in this encounter"
--- OUTSIDE RECORDS SUMMARY | ~2019-07-14 | XMS | Encounter Summary ---
Demographics + + + | Address | [address] | | | [place] [address] | + + + | Home Phone [...] + + + | Author | [place] [employer] [facility] | + + + | Organization | [facility] | + [...] Providers + +------+ + | Care Supervisor Computer Operations Name | Role | Phone | + +------+ + | No Pcp Per Patient | PCP | Unavailable | + +------+ + Reason for Visit + + + | Reason | Comments | + + + | Follow-up in | pit office visit | | outpatient clinic | | + + + Office Visit - E/M Services (Routine) +--------+--------+ + + + + | Status | Reason | Specialty | Diagnoses / | Referred By | Referred To | | | | | Procedures | Contact | Contact | +--------+--------+ + + + + | Closed | | Endocrinology | Diagnoses | Montanez, | [place], | | | | , Diabetes & | Benign | Shravan Schultz MD | Cathie, | | | | Metabolism | neoplasm of | [facility] | 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,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,[place] | | | | | pituitary | PHYSICIAN | [address] | | | | | gland and | [facility] | Ave | | | | | craniopharyn | C[facility]IC | [place], [place] | | | | | geal duct | MEDICAL | [address] | | | | | (pouch) | [address] [address] | Phone: | | | | | (HCC) | [facility] | [phone] | | | | | Procedures | CLARISA MCKENNA, | Fax: | | | | | ESTAB | [place] [address] | [phone] | | | | | PATIENT | Phone: | | | | | | LEVEL [address] | [phone] | | | | | | MRI BRAIN | Fax: | | | | | | COMBO f/up | [phone] | | | | | | & MRI | | | +--------+--------+ + + + + Encounter Details +--------+---------+ + + + | Date | Type | Department | Care Team | Description | +--------+---------+ + + + | 12/08/ | Office | Neurosurgery at | Donnie, | Pituitary Adenoma | | 2006 | Visit | [facility] [address] | Cathie, | (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); | | | | and Healing, | [place] [address] | Hypothyroid; | | | | Building | [phone] | Diabetes Insipidus | | | | Floor [place], [place] | | (HCC); Adrenal | | | | [address]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 ([facility]); | | | | [phone] | | Benign Neoplasm of | | | | | | Pituitary Gland and | | | | | | Craniopharyngeal | | | | | | Duct (Pouch) ([facility]); | | | | | | Corticoadrenal | | | |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; Other | | | | | | Specified Acquired | | | | | | Hypothyroidism; | | | | | | Pituitary Dwarfism | | | | | | (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) | +--------+---------+ + + + Social [...] + + + | Blood Pressure | 136/76 | 12/08/2006 1:33 PM | | | | | PDT | | + + + + + | Pulse | 90 | 12/08/2006 1:33 PM | | | | | PDT [...] Weight | 123.4 kg (272 lb) | 12/08/2006 1:33 PM | | | | | PDT | | + + + + + | Height | - | - | | + + + + + | Body Mass Index | 41.97 | 04/03/2006 2:01 PM | | | | | PDT | | + + + + + documented in this encounter Progress Notes Cathie Fields - 12/09/2006 10:28 PM PDTReason for visit. Amairani Tyler returns to [facility] December 08, 2006 for followup approx one yr s/p resection of a pituitary adenoma. 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 He is known to have panhypopituitarism and with diabetes insipidus. 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 Reuben Styles. At this visit he notes worsening headaches particularly over the last 2 week that get worse during the day. He denies any nausea or dizzyness in association with headaches but does no te blurry vision. He denies hair loss, facial redness, acne, breast tenderness or discharge. He denies striae, dry skin or brusing. He notes no weakness or swelling in extremities, gayathri nt aches, tremor but does note some symptoms of carpel tunnel that he is currently investiga ting with his primary care physician. The notes no difficulty with memory, concentration gu t notes worsening sleep disturbance and daytime fatigue. Pt report loud snoring and will be evaluated for sleep apnea in one week.He denies emotional changes,temperature dysregulation, poor libido, polyuria or polydipsia except for immediately before each dose of DDAVP. Exact date of onset of symptoms is unknown Review of systems negative other than as stated above. Physical Exam; Blood pressure 136/76, pulse 90, weight 123.378 kg (272 lbs). Physical Exam: General: A pleasant man who looks stated age in no acute distress, well nourished, and well developed HEENT: Normocephalic and atraumatic. Pupils are equally responsive and reactive to light. Extraocular movements are intact. Visual godinez are normal to confrontation as are the remainder of cranial nerves. He has no acne, Some facial plethora, some facial rounding, no frontal bossing, protruding jaw, or gaps between the teeth. Neck: With small dorsocervical hump and supraclavicular fat pad filling. No lymphadenopathy or jugular vein distention. Thyroid is sl enlarged in size with smooth texture without bruits. Heart: Regular rate and rhythm. No murmurs, rubs, or gallops. Lungs: Clear to auscultation. No rhonchi, rales, or wheezes. Abdomen: Positive bowel sounds, nontender, and nondistended. No organomegaly, moderate truncal obesity, No striae. Breasts: Without tenderness. No gynectomastia. : Deferred. Skin: No hyperpigmentation not dry, sweaty, or oily. Scattered skin tags, some thinning of skin and scattered ecchymosis. Extremities: Upper extremities: with proximal muscle weakness, no carpal tunnel syndrome. No hand enlargement or tremor. Lower extremities: Without edema. Neurologic: He is alert and oriented x3, 5/5 motor and sensory throughout. No delayed relaxation phase of the brachial reflex. LABS: BMP, ALL SOURCE INTELLIGENCE ANALYST, IGF-1, TSH, Free T4, LH, FSH, Testosterone, Prolactin pending MRI pending Assessment and discussion: We discussed the possibility of adrenal insufficiency as pt has been moving and under incre ased stress. MRI is pending to evualutae change in tumor size. We disucssed sleep apnea and upcoming evaluation which can also contribute to these symptoms. We discussed circumstances he may require stress dose of steroids. Pt girlfriend was present at this visit. I answered questions to their satisfaction. Plan: 1. Pituitary functions. 1.1. Adrenal. 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 Will give him a one time dose of 40mg HC in am and evaluate effect on his headache. If this dose is effective will increase his daily dose to 25 mg and wean if tolerated to 20mg after 2-3 days. 1.2. Thyroid. The patient has been euthyroidwith current LT4 replacement. F ree T4 is pendi ng, no changes are anticipated. 1.3. Gonadal. Testosterone level is pending, however pt denies s&s suggestive of deficiency . No replacement is anticipated to be indicated. 1.4. Growth hormone. IGF-1 level is pending if below therapeutic range will increase growth hormone replacement. 1.5. Prolactin. no dopamine agonist therapy is indicated. 1.6. Vasopressin. The patient continues to hava appropriate polyuria, polydipsia, prior to each dose of DDAVP. BMP is pending however no changes in therapy are anticipated. 2. Followup.will followup in 12 mths with reg MRI, RM endocrine testing. He will RTC for re evaluation in 6 weeks for any changes in medication dose. CATHIE FIELDS NP [facility] [address] [facility] [place] [address] I spent 40 mins in evaluation of this patient of which over 50% was spent in coordination o f care .12/10/06 Discussed results with patient MR BRAIN WWO CONTRAST: Radiologist 1: BRETT OSORIO-Radiologist 2: LUIS ALFREDO DUNN MD-Radiologist 2: LUIS ALFREDO DUNN MD HEAD MRI WITH AND WITHOUT CONTRAST HISTORY: Benign pituitary neoplasm. TECHNIQUE: 1. Sagittal T1 through the sella. 2. High-resolution coronal T1 and T2 and postcontrast sagittal and coronal T1 scans through the sella turcica. 3. Axial T2 weighted images through the brain. 4. Axial FLAIR and DWI. 5. Postcontrast axial T1 weighted images through the brain. COMPARISON: 10/31/05 FINDINGS: Enhancing tissue fills the sella which is normal for age and unchanged compared to the prior study. No definite mass is identified. There is no mass effect on the optic chiasm. The pituitary stalk is mildly thickened but still within the upper limits of normal and unchanged in appearance. Mucosal thickening is again identified within the sphenoid sinuses. IMPRESSION: 1. No significant interval change compared to prior study. No evidence of residual or recurrent pituitary mass lesion Component Reference Range 12/08/2006 GLUCOSE (LAB) 60-99 mg/dL 72 BUN 6-20 mg/dL 9 CREATININE 0.7-1.3 mg/dL 0.7 SODIUM (LAB) 136-145 mmol/L 141 POTASSIUM (LAB) 3.5-5.1 mmol/L 4.0 CHLORIDE 98-107 mmol/L 107 TOTAL CO2 23-29 mmol/L 23 CALCIUM (LAB) 8.5-10.5 mg/dL 9.7 TESTOSTERONE (LAB) 241-950 ng/dl 498 FREE T4 0.7-1.8 ng/dL 1.7 PROLACTIN 3-17 ng/ml 3 Plan: 1. Adrenals continue Hydrocortisone. He will take a one time dose of 40mg in am and evaluat e effect on headache. If there is improvement will have him increase am dose to 20mg. 2. Thyroid. Level is therapeutic. No change in current dose 3. Growth Hormone. IGF-1 is pending. Will change dose if indicated 4. Prolactin level is normal 5. Testosterone mid normal. No changes in dose at this time 6. DDAVP continue same dose 7. PCP. Followup re headache management or source of infection. 8. RTC for review 6mths.(LS) documented in this enc ounter Plan of Treatment +--------+---------+ + + + | Date | Type | Specialty | Care Team | Description | +--------+---------+ + + + | 08/15/ | Office | Cardiology | Zuleika Hernandez, | | | 2020 | Visit | | [address] | | | | | | [address] | | | | | | [place], [place] | | | | | | [address] | | | | | | [phone] | | | | | | | | +--------+---------+ + + + + +------+--------+ + + | Name | Type | Priori | Associated Diagnoses | Order Schedule | | | | ty | | | + +------+--------+ + + | CH - SPECIMEN | Lab | Routin | Pituitary Adenoma | Ordered: 12/08/2006 | | COLLECT, | | e | (HCC) | | | VENIPUNCTURE | | | | | + +------+--------+ + + documented as of this encounter Procedures + +--------+ + + + | Procedure Name | Priori | Date/Time | Associated Diagnosis | Comments | | | ty | | | | + +--------+ + + + | BASIC METABOLIC SET | Routin | 12/08/2006 | Pituitary Adenoma | Results for this | | (NA, K, CL, TCO2, | e | 3:08 PM | (HCC) Hypogonadism | procedure are in the | | BUN, CR, GLU, CA) | | PDT | Male Growth Hormone | results section. | | | | | Deficiency (HCC) | | | | | | Hypothyroid | | | | | | Diabetes Insipidus | | | | | | (HCC) Adrenal | | | |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 (HCC) | | + +--------+ + + + | INSULIN GROWTH | Routin | 12/08/2006 | Pituitary Adenoma | Results for this | | FACTOR-1, SERUM | e | 3:08 PM | (HCC) Hypogonadism | procedure are in the | | | | PDT | Male Growth Hormone | results section. | | | | | Deficiency (HCC) | | | | | | Hypothyroid | | | | | | Diabetes Insipidus | | | | | | (HCC) Adrenal | | | |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 (HCC) | | + +--------+ + + + | FREE T4 | Routin | 12/08/2006 | Pituitary Adenoma | Results for this | | | e | 3:08 PM | (HCC) Hypogonadism | procedure are in the | | | | PDT | Male Growth Hormone | results section. | | | | | Deficiency (HCC) | | | | | | Hypothyroid | | | | | | Diabetes Insipidus | | | | | | (HCC) Adrenal | | | |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 (HCC) | | + +--------+ + + + | PROLACTIN | Routin | 12/08/2006 | Pituitary Adenoma | Results for this | | | e | 3:08 PM | (HCC) Hypogonadism | procedure are in the | | | | PDT | Male Growth Hormone | results section. | | | | | Deficiency (HCC) | | | | | | Hypothyroid | | | | | | Diabetes Insipidus | | | | | | (HCC) Adrenal | | | |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 (HCC) | | + +--------+ + + + | TESTOSTERONE, SERUM | Routin | 12/08/2006 | Pituitary Adenoma | Results for this | | | e | 3:08 PM | (HCC) Hypogonadism | procedure are in the | | | | PDT | Male Growth Hormone | results section. | | | | | Deficiency (HCC) | | | | | | Hypothyroid | | | | | | Diabetes Insipidus | | | | | | (HCC) Adrenal | | | |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 (HCC) | | + +--------+ + + + documented in this encounter Results BASIC METABOLIC SET (12/08/2006 3:08 PM PDT) + + + + + + | Component | Value | Ref Range | Performed | Pathologist | | | | | At | Signature | + + + + + + | GLUCOSE, | 72Comment: | 60 - 99 mg/dL | [facility] | | | PLASMA | Reference range change | | DEPARTMENT | | | (LAB) | for Glucose, Plasma | | OF | | | | effective 11/19/06. | | PATHOLOGY | | + + [...] + + + + | SODIUM, | 141 [...] + + | CHLORIDE, | 107 | 98 - 107 mmol/L | [facility] [...] + + + + | CALCIUM, | 9.7 | 8.5 - 10.5 | [facility] | | | PLASMA | | mg/dL | DEPARTMENT | | | (LAB) | | | OF | | | | | | PATHOLOGY | | + + + + + + + + | Specimen | + + | | + + + + + | Narrative | Performed At | + + + | [id number] Estimated GFR > 60 mL/min/1.73 sq m if non- | [facility] | | [id number] Estimated GFR > 60 mL/min/1.73 sq m [...] + + + + + | [facility] | [address] | [place] [address] | | | PATHOLOGY | [address] | | | + + + + + | [facility] | [address] | [place] [address] | | | PATHOLOGY | [address] | | | + + + + + PROLACTIN (12/08/2006 3:08 PM PDT) + + + + + + | Component | Value | Ref Range | Performed | Pathologist | | | | | At | Signature | + + + + + + | PROLACTIN | 3Comment: Test performed | 3 - 17 ng/ml | | | | | by [facility] | | | | | | [facility]. | | | | + + + + + + + + | Specimen | + + | | + + + + + + + | Performing | Address | City/State/Zipcode | Phone Number | | Organization | | | | + + + + + | [facility] | [address] | [place] [address] | | | LABORATORY | | | | + + + + + FREE T4, SERUM (12/08/2006 3:08 PM PDT) + + + + + + | Component | Value | Ref Range | Performed | Pathologist | | | | | At | Signature | + + + + + + | FREE T4, | 1.7Comment: Test | 0.7 - 1.8 ng/dL | | | | SERUM | performed by [facility] | | | | | | [facility] | | | | | | Laboratories. | | | | + + + + + + + + | Specimen | + + | | + + + + + + + | Performing | Address | City/State/Zipcode | Phone Number | | Organization | | | | + + + + + | [facility] | [address] | [place] [address] | | | LABORATORY | | | | + + + + + TESTOSTERONE (12/08/2006 3:08 PM PDT) + + + + + + | Component | Value | Ref Range | Performed | Pathologist | | | | | At | Signature | + + + + + + | TESTOSTERON | 498Comment: Test | 241 - 950 ng/dl | [...] + + + | [facility] | [address] | [place] [address] | | | LABORATORY | | | | + + + + + IGF-1 (12/08/2006 3:08 PM PDT) + + + + + + | Component | Value | Ref Range | Performed | Pathologist | | | | | At | Signature | + + + + + + | IGF-1 | 183Comment: Test | 117 - 329 ng/mL | | | | | performed by [facility] | | | | | | [facility] | | | | + + + + + + + + | Specimen | + + | | + + + + + + + | Performing | Address | City/State/Zipcode | Phone Number | | Organization | | | | + + + + + | [facility] | [address] | [place] [address] | | | LABORATORY | | | | + + + + + documented in this encounter Visit Diagnoses + + | Diagnosis | + + | Pituitary adenoma (HCC) Benign neoplasm of pituitary gland and craniopharyngeal duct | | (pouch) | + + | Hypogonadism male Other testicular hypofunction | + + | Growth hormone deficiency (HCC) Pituitary dwarfism | + + | Hypothyroid Unspecified hypothyroidism | + + | Diabetes insipidus (HCC) Diabetes insipidus | + + | Adrenal insufficiency (HCC) Glucocorticoid deficiency | + + | Benign neoplasm of pituitary gland and craniopharyngeal duct (pouch) (HCC) Benign | | neoplasm of pituitary gland and craniopharyngeal duct (pouch) | + + | Corticoadrenal insufficiency | + + | Other specified acquired hypothyroidism | + + | Pituitary dwarfism (HCC) Pituitary dwarfism | + + | Other testicular hypofunction | + + | Other anterior pituitary disorders | + + documented in this encounter"
--- OUTSIDE RECORDS SUMMARY | ~2019-07-14 | XMS | Encounter Summary ---
Demographics + + + | Address | [address] | | | [place] [address] | + + + | Home Phone [...] + + + | Author | [place] [facility] [facility] | + + + | Organization | [facility] [...] Team Providers + +------+ + | Care Drapery Head Former Name | Role | Phone | + [...] adenoma | | 2016 | Visit | [facility] [address] | [place], | ([facility]) (Primary Dx); | | | | Ave Mailcode: CH8N | DNP,INSTRUCTOR OF EDUCATION,[place] [address] | 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[place] [facility] | [address] [place], | deficiency ([facility]); | | | | and Healing, | [place] [address] | Diabetes insipidus | | | | Building [address] | [phone] | ([facility]); Hypogonadism | | | | [place], [place] | | male; Acquired | | | | [address] | | hypothyroidism; | | | | [phone] | | Adrenal | | | | | | insufficiency ([facility]); | | | | | | [...] in this encounter Progress Notes Cathie Fields, SANIYA,INSTRUCTOR OF EDUCATION,[place] - 05/16/2016 12:30 PM PDTFormatting of this [...] cardiac stent place 02/2011 after a n [place]. At this visit; Symptoms and Complaints: HC [...] CREATININE PLASMA (LAB) 0.70-1.30 mg/dL EGFR - [place] >60 mL/min EGFR NON -[place] >60 mL/min SODIUM, PLASMA (LAB) 136-145 mmol/L [...] PLASMA (LAB) 0.70-1.30 mg/dL 0.81 EGFR - [place] >60 mL/min >60 EGFR NON -[place] >60 mL/min >60 SODIUM, PLASMA (LAB) 136-145 [...] CREATININE PLASMA (LAB) 0.70-1.30 mg/dL EGFR - [place] >60 mL/min EGFR NON -[place] >60 mL/min SODIUM, PLASMA (LAB) 136-145 mmol/L [...] PLASMA (LAB) 0.70-1.30 mg/dL 0.95 EGFR - [place] >60 mL/min >60 EGFR NON -[place] >60 mL/min >60 SODIUM, PLASMA (LAB) 136-145 [...] CREATININE PLASMA (LAB) 0.70-1.30 mg/dL EGFR - [place] >60 mL/min EGFR NON -[place] >60 mL/min SODIUM, PLASMA (LAB) 136-145 mmol/L [...] PLASMA (LAB) 0.70-1.30 mg/dL 0.78 EGFR - [place] >60 mL/min >60 EGFR NON -[place] >60 mL/min >60 SODIUM, PLASMA (LAB) 136-145 [...] mths 10/24. With labs CATHIE FIELDS DNP, INSTRUCTOR OF EDUCATION, [place] Resident Intern [facility] [address] [facility] [place] [address] Component Latest Ref Rng 05/16/2016 05/16/2016 05/16/2016 05/16/2016 12:54 PM 12:54 PM 12:54 PM 12:54 PM GLUCOSE, PLASMA (LAB) 60-99 mg/dL BUN, PLASMA (LAB) 6-20 mg/dL CREATININE PLASMA (LAB) 0.70-1.30 mg/dL EGFR - [place] >60 mL/min EGFR NON -[place] >60 mL/min SODIUM, PLASMA (LAB) 136-145 mmol/L [...] PLASMA (LAB) 0.70-1.30 mg/dL 0.72 EGFR - [place] >60 mL/min >60 EGFR NON -[place] >60 mL/min >60 SODIUM, PLASMA (LAB) 136-145 [...] up 10/24 CATHIE FIELDS DNP, TOMER, BECCA Resident Intern [facility] [address] [facility] [address] documented in this encounter Plan of Treatment +--------+---------+ + + + | Date | Type | Specialty | Care Team | Description | +--------+---------+ + + + | 08/15/ | Office | Cardiology | Zuleika Hernandez, | | | 2019 | Visit | | [address] | | | | | | [address] | | | | | | [place], [place] | | | | | | [address] | | | | | | [phone] | | | | | | | [...] | + + + + + | [facility] | [address] | [place] [address] | | | MASSIEL, VITALY | KIMO [...] | + + + + + | [facility] | [address] [facility] | [place] [address] | | | SERVICES, VITALY | [address] [...] | | this test in the [facility] | | | | | | Laboratory Test | | | | | | Directory | | | | | | ([employer]).Performed | | | | | | by [employer],[address] | | | | | | [address], [facility],[place] | | | | | | [address] | | | | | | [phone].K[employer]. | | | | | | [facility], Dariel Tobin, | | | [...] [facility] | [address] | [place], [place] | | | UN[facility] INT[facility] | | [address] | | + + + + + [...] - | | | | | | [place] | | + +-------+ + + + + + | Specimen | + + | Blood - Blood | + + + + + + + | Performing | Address | City/State/Zipcode | Phone Number | | Organization | | | | + + + + + | [facility] | [address] | [place] [address] | | | [place] | | | | + + + [...] Directory | | | | | | ([employer]).Performed | | | | | | by [employer],[address] | | | | | | [address] Pickens [facility],[place] | | | | | | [address] | | | | | | [phone].[employer]. | | | | | | [facility], Dariel Tobin, | | | [...] [facility] | [address] | [place], [place] | | | [facility] | | [address] | | + + + + + [...] [facility] | [address] | [place] [address] | | | SERVICES, VITALY | KIMO [...] | LABORATORY | | | [place] | | | SERVICES, | | | [...] | + + + + + | [facility] | [address] | [place] [address] | | | SERVICES, VITALY | [address] | | | + + + + + documented in this encounter Visit Diagnoses + + | Diagnosis | + + | Pituitary adenoma (HCC) - Primary Benign neoplasm of pituitary gland and | | craniopharyngeal duct (pouch) | + + | Growth hormone deficiency (HCC) Pituitary dwarfism | + + | Diabetes insipidus ([facility]) Diabetes insipidus | + + | Hypogonadism male Other testicular hypofunction | + + | Acquired hypothyroidism Unspecified hypothyroidism | + + | Adrenal insufficiency (HCC) Glucocorticoid deficiency | + + | Vitamin D deficiency | + + documented in this encounter
--- OUTSIDE RECORDS SUMMARY | ~2019-07-14 | XMS | Encounter Summary ---
Demographics + + + | Address | [address] [facility] [address] | | | [place] [address] | + + + | Home Phone [...] + + + | Author | [place] [employer] [facility] | + + + | Organization | [facility] | [...] Team Providers + +------+ + | Care Jewelry Drill Operator Name | Role | Phone | [...] Records | | 2011 | Encounter | [facility] [address] | [address] | | | | | Ave Mailcode: CH8N | [address] | | | | | [facility] | [place], [place] | | | | | and Healing, | [address] | | | | | [place] [address] | [phone] | | | | | [place], [place] | | | | | | [address] | | | | | | [phone] | | | +--------+ + + + [...] [place] | | | | | | [address] | | | | | | [phone] | | | | | | | | +--------+---------+ + + + documented as of this encounter Visit Diagnoses Not on filedocumented in this encounter"
--- OUTSIDE RECORDS SUMMARY | ~2019-07-14 | XMS | Encounter Summary ---
Demographics + + + | Address | [address] | | | [place] [address] | + + + | Home Phone [...] + + | Author | [place] [employer] [facility] | + + + | Organization | [facility] [...] Team Providers + +------+ + | Care Licensed Therapist Name | Role | Phone | [...] | | 2008 | Encounter | [facility] [address] | [address] | | | | | [place] Mailcode: CH8N | [address] | | | | | [facility] | [place], [place] | | | | | and Healing, | [address] | | | | | [facility] 1 | [phone] | | | | | [place], [place] | | | | | | [address] | | | | | | [phone] | | | +--------+ + + + [...] [place] | | | | | | [address] | | | | | | [phone] | | | | | | | | +--------+---------+ + + + documented as of this encounter Visit Diagnoses Not on filedocumented in this encounter"
--- OUTSIDE RECORDS SUMMARY | ~2019-07-14 | XMS | Encounter Summary ---
Demographics + + + | Address | [address] | | | [place] [address] | + + + | Home Phone [...] + + + | Author | [place] [employer] [facility] | + + + | Organization | [facility] | + + + | Address | Unknown | + + + | Phone | Unavailable | + + + Support + + +---------+ + | Name | Relationship | Address | Phone | + + +---------+ + | Alexandria Dixon | ECON | Unknown | | + + +---------+ + Care Team Providers + +------+ + | Care Breaker Table Worker Name | Role | Phone | + +------+ + | Bernardo Pan | PCP | | + +------+ + Encounter Details +--------+ + + + + | Date | Type | Department | Care Team | Description | +--------+ + + + + | 01/01/ | Abstract | Cardiology General | Unknown . | | | 2018 | | [facility] [address] | | | | | | [address] Mailcode: | | | | | | [address] | | | | | | Health and Healing, | | | | | | | | | | | | floor [place], [place] | | | | | | [address] | | | | | | [phone] | | | +--------+ + + + [...] | | 2019 | Visit | | [address] | | | | | | [address] | | | | | | [place], [place] | | | | | | [address] | | | | | | [phone] | | | | | | | | +--------+---------+ + + + documented as of this encounter Visit Diagnoses Not on filedocumented in this encounter"
--- OUTSIDE RECORDS SUMMARY | ~2019-07-14 | XMS | Encounter Summary ---
Demographics + + + | Address | [address] [facility] | | | [place] [address] | + + + | Home Phone [...] + + + | Author | [place] [employer] [facility] | + + + | Organization | [facility] | [...] Providers + +------+ + | Care Engine Room Helper Name | Role | Phone | [...] as of this encounter Progress Notes Interface, Ict Sales Representative In - 11/08/2005 2:05 AM [facility] [id number] TOREY TRIVEDI V Clinic Date: 10/31/2005 Clinic: [...] Cortrosyn stimulation test is pending to evaluate srkohwyfybhh-vdnrmnssd-xvalpxj axis function. If functional, we will discontinue [...] Shruti Landa. Lb Guillaume M.D., Ph.D. / [id number] / [id number] / [id number] / [id number] E: 11/03/2005 josé miguelw cc: Shravan Montanez M.D. [address] [place] [address] Electronically signed by Lb Guillaume (Bill) 11-07-2005 [...] [address] | | | | | | [place] | | | | | | [address] | | | | | | [phone] | | | | | | | | +--------+---------+ + + + documented as of this encounter Visit Diagnoses Not on filedocumented in this encounter"
--- OUTSIDE RECORDS SUMMARY | ~2019-07-14 | XMS | Encounter Summary ---
Demographics + + + | Address | [address] | | | [place] [address] | + + + | Home Phone | | + + + | Preferred Language | Unknown | + + + | Marital Status | Single | + + + | Jain Affiliation | Unknown | + + + | Race | Unknown | + + + | Ethnic Group | Unknown | + + + Author + + + | Author | [facility] | | | and [place] | + + + | Organization | [facility] | | | and [...] Team Providers + +------+ + | Care Inbound Telemarketer Name | Role | Phone | + +------+ + PCP | Unavailable | + +------+ + Encounter Details +--------+ + + + + | Date | Type | Department | Care Team | Description | +--------+ + + + + | 12/10/ | Hospital | [facility] | Lazaro Deleon | | | 2006 | Encounter | MED CTR SLEEP | MD [address] | | | | | CENTER [address] | [address] [place] | | | | | [place], [place] | [place] [address] | | | | | [address] | [phone] | | | | | [phone] | | | +--------+ + + + [...] 2019 | Visit | | [address] | | | | | | [place] | | | | | | [address] | | | | | | | | +--------+---------+ + + + documented as of this encounter Visit Diagnoses Not on filedocumented in this encounter"
--- OUTSIDE RECORDS SUMMARY | ~2019-07-14 | XMS | Encounter Summary ---
Demographics + + + | Address | [address] | | | [place] [address] | + + + | Home Phone | | + + + | Preferred Language | Unknown | + + + | Marital Status | Single | + + + | Orthodox Affiliation | Unknown | + + + | Race | Unknown | + + + | Ethnic Group | Unknown | + + + Author + + + | Author | [facility] | | | and [place] | + + + | Organization | [facility] | | | and [place] | [...] Team Providers + +------+ + | Care Surfboard Designer Name | Role | Phone | + +------+ + | Bren Arango PA-C | PCP | | + +------+ + Encounter Details +--------+ + + + + | Date | Type | Department | Care Team | Description | +--------+ + + + + | 04/16/ | Hospital | [facility] | Conversion | Coronary artery | | 2018 | Encounter | [facility] [address] | Transaction, | disease of [place] | | | | [address] | Provider Unknown | artery of [place] | | | | [place], [place] | [phone] | heart with stable | | | | [address] | | angina pectoris | | | | [phone] | Zuleika Hernandez MD | ([facility]) | | | | | [address] | | | | | | [address] [place], [place] | | | | | | [...] [place] | | | | | | [address] | | | | | | | [...] | 3-D reconstructions were performed using the [employer] 3-D software and | | | sent [...] | | reconstructions were performed using the [employer] 3-D software and sent to PACS. Dose [...] + + | Coronary artery disease of [place] artery of [place] heart with stable angina pectoris | | (HCC) | + + documented in this encounter"
--- OUTSIDE RECORDS SUMMARY | ~2019-07-14 | XMS | Encounter Summary ---
Demographics + + + | Address | [address] [facility] [facility] | | | [place] [address] | + + + | Home Phone [...] + + + | Author | [place] [employer] [facility] | + + + | Organization | [facility] [...] Providers + +------+ + | Care Director Security Management Name | Role | Phone | + [...] | | | [place] Mailcode: CH8N | DNP,GROUND SOURCE HEAT PUMP TECHNICIAN,[place] [address] | | | | | [facility] | [address] [place], | | | | | and [facility], | [place] [address] | | | | | Building [address] | [phone] | | | | | [place], [place] | | | | | | [address] | | | | | | [phone] | | | +--------+--------+ + + + [...] Rd | | | | | | [place], [place] | | | | | | [address] | | | | | | [phone] | | | | | | | | +--------+---------+ + + + documented as of this encounter Visit Diagnoses Not on filedocumented in this encounter"
--- OUTSIDE RECORDS SUMMARY | ~2019-07-14 | XMS | Encounter Summary ---
Demographics + + + | Address | [address] | | | [place] [address] | + + + | Home Phone | | + + + | Preferred Language | Unknown | + + + | Marital Status | Single | + + + | Oriental Orthodox Affiliation | Unknown | + + + | Race | Unknown | + + + | Ethnic Group | Unknown | + + + Author + + + | Author | [facility] | | | and [place] | + + + | Organization | [facility] | | | and [place] [...] Providers + +------+ + | Care Medical Detail Representative Name | Role | Phone | [...] | | | BMI of | | [place], | | | | | 45.0-49.9, | | [place] [address] | | | | | adult (HCC) | | Phone: | | | | | Weight | | [phone] | | | | | loss, | | Fax: | | | | | non-intentio | | [phone] | | | | | nal | [...] Description | +--------+---------+ + + + | 07/25/ | [facility] | [facility] | Jorge Lopez MD | EGD | | 2015 | | MED CTR MP INTRA OP | [address] | | | | | [address] | [place], [place] | | | | | [place] | [address] | | | | | [address] | [phone] | | | | | [phone] | | | +--------+---------+ + + + [...] the physician who did your procedure at [phone] if you have any questions or experience any of the following: ? Increasing abdominal pain, nausea, or vomiting. ? Chills and fever over 101F. ? New abdominal swelling or bloating. ? Signs of rectal bleeding (black or red stool). If you cannot get a hold of your physician, then call the [facility] [phone] . If necessary, report to the Emergency Department at [facility]. Quit smoking: If you smoke or have [...] [place] | | | | | | [address] | | | | | | | [...] adult | | | | | | ([facility]) Weight loss, | | | [...] 07/25/2015 | PROVATION | | 12:12 PMMRN: [id number] #: [id number] of : | | | 1980Admit Type: AmbulatoryAge: 35Room: [facility] 02Gender: MaleNote | | | Status: FinalizedAttending MD: Jorge Lopez [facility]cedure: | | | Upper GI endoscopyIndications: Screening | | | procedureProviders: Jorge Lopez MD, Vida Nelson | | | PAIGE Burnette, Priscilla Jimenez, | | | General Supervisor, Inder Espinoza MD (Anesthesia | | | [...] the | | | anesthesiologist and the benefits technician in the pre-procedure area in the [...] PMScope Out: 12:28:52 PM | | | [facility], [facility] [place], [place] | | | [address] | | | symptoms of potential delayed [...] |Scope Out: 12:28:52 PM | | | [facility], [address] [place] [address] | | | [address] | | + + -+ + +---------+ [...] | | esophagus). - Negative for dysplasia. [facility]:C2NR GROSS | | | DESCRIPTION: The specimen is received in two parts. A. The | | | specimen is labeled "Amairani Tyler Van" and designated "GE junction bx" | [...] | fragments, 0.15-0.3 cm, all into (B1). yt:[facility] PERFORMING | | | LABORATORY: Tissue processing and slide preparation were performed by | | | [facility], [address], [place] [address] | | | (Sample Examiner: Balta Pack M.D. CLIA#: [id number]). | | | Professional interpretation [facility] performed by [facility] | | | [facility], [address] [place] [address], [place], | | | [place] [address] (Sample Examiner: Nitin Avina M.D.; CLIA#: | | | [id number]). Diagnostician: Nitin Avina MD Pathologist | | [...] + | Diagnosis | + + | Morbid obesity with BMI of 45.0-49.9, adult (HCC) | + + | Weight loss, non-intentional Loss of weight | + + | Obstructive sleep apnea [...] +------+-------+------+ +---------+ +---+-------+---+ | New Bag | 12/16/20 | | 100 | | | | 15 10:18 | | mL/hr | | | | AM PST | | | | +---------+ +---+-------+---+ +---+---+ | | | +---+---+ documented in this encounter
--- OUTSIDE RECORDS SUMMARY | ~2019-07-14 | XMS | Encounter Summary ---
Demographics + + + | Address | [address] [facility] [facility] | | | [place] [address] | + + + | Home Phone [...] + + + | Author | [place] [employer] [facility] | + + + | Organization | [facility] | + + + | Address | Unknown | + + + | Phone | Unavailable | + + + Support + + +---------+ + | Name | Relationship | Address | Phone | + + +---------+ + | Alexandria Dixon | ECON | Unknown | | + + +---------+ + Care Team Providers + +------+ + | Care Podiatric Surgeon Name | Role | Phone | + [...] Refill Request | | 2006 | | [facility] [address] | [place], | | | | | [place] Mailcode: CH8N | DNP,CANVAS WORKER,[place] [address] | | | | | [facility] | [address] [place], | | | | | and [facility], | [place] [address] | | | | | [facility] | [phone] | | | | | Floor [place], [place] | | | | | | [address] | | | | | | [phone] | | | +--------+--------+ + + + [...] [place] | | | | | | [address] | | | | | | [phone] | | | | | | | | +--------+---------+ + + + documented as of this encounter Visit Diagnoses Not on filedocumented in this encounter"
--- OUTSIDE RECORDS SUMMARY | ~2019-07-14 | XMS | Encounter Summary ---
Demographics + + + | Address | [address] [facility] | | | [place] [address] | + + + | Home Phone [...] + + + | Author | [place] [employer] [facility] | + + + | Organization | [facility] | [...] Team Providers + +------+ + | Care Certified Pediatric Nurse Practitioner Name | Role | Phone [...] | | | [place] Mailcode: CH8N | [facility] | | | | | [facility] | [place], [place] | | | | | and [place], | [address] | | | | | [place] [address] | [phone] | | | | | [place], [place] | | | | | | [address] | | | | | | [phone] | | | +--------+ + + + [...] Rd | | | | | | [place], [place] | | | | | | [address] | | | | | | [phone] | | | | | | | | +--------+---------+ + + + documented as of this encounter Visit Diagnoses Not on filedocumented in this encounter"
--- OUTSIDE RECORDS SUMMARY | ~2019-07-14 | XMS | Encounter Summary ---
Demographics + + + | Address | [address] [facility] [address] [facility] | | | [place] [address] | + + + | Home Phone [...] + + + | Author | [place] [employer] [facility] | + + + | Organization | [facility] [...] Team Providers + +------+ + | Care Leveler Name | Role | Phone | + +------+ + | Priscilla Ramírez PA-C | PCP | | + +------+ + Encounter Details +--------+ + + + + | Date | Type | Department | Care Team | Description | +--------+ + + + + | 08/21/ | Ancillary | Registration [address] | | | | 2005 | Registratio | [address] [facility] | | | | | n | [place] Mailcode: RPB07 | | | | | | [place], [place] | | | | | | [address] | | | | | | [phone] | | | +--------+ + + + [...] | | 2019 | Visit | | [address] | | | | | | [address] | | | | | | [place], [place] | | | | | | [address] | | | | | | [phone] | | | | | | | | +--------+---------+ + + + documented as of this encounter Visit Diagnoses Not on filedocumented in this encounter"
--- OUTSIDE RECORDS SUMMARY | ~2019-07-14 | XMS | Encounter Summary ---
Demographics + + + | Address | [address] | | | [place] [address] | + + + | Home Phone [...] + + + | Author | [place] [employer] [facility] | + + + | Organization | [facility] | + + + | Address | Unknown | + + + | Phone | Unavailable | + + + Support + + +---------+ + | Name | Relationship | Address | Phone | + + +---------+ + | Alexandria Dixon | ECON | Unknown | | + + +---------+ + Care Team Providers + +------+ + | Care Computer Console Operator Name | Role | Phone | + +------+ + | Priscilla Ramírez PA-C | PCP | | + +------+ + Encounter Details +--------+ + + + + | Date | Type | Department | Care Team | Description | +--------+ + + + + | 06/01/ | MyChart | Cardiology in | Zuleika Hernandez, | RE: Heart | | 2019 | Encounter | [facility] | [address] | | | | | [place] at | [facility] [place] | | | | | [address] | [place], [place] | | | | | [address] | [address] | | | | | [place], [place] | [phone] | | | | | [address] | | | | | | [phone] | | | +--------+ + + + [...] [place] | | | | | | [address] | | | | | | [phone] | | | | | | | | +--------+---------+ + + + documented as of this encounter Visit Diagnoses Not on filedocumented in this encounter"
--- OUTSIDE RECORDS SUMMARY | ~2019-07-14 | XMS | Encounter Summary ---
Demographics + + + | Address | [address] | | | [place] [address] | + + + | Home Phone [...] + + + | Author | [place] [employer] [facility] | + + + | Organization | [facility] | [...] Team Providers + +------+ + | Care Licensing Officer Name | Role | Phone | [...] Refill Request | | 2010 | | [facility] [address] | [place], | | | | | [place] Mailcode: CH8N | DNP,DATA OFFICER,[place] [address] | | | | | [facility] | [address] [place], | | | | | and [facility], | [place] [address] | | | | | Building 1 | [phone] | | | | | [place], [place] | | | | | | [address] | | | | | | [phone] | | | +--------+--------+ + + + [...] Rd | | | | | | [place], [place] | | | | | | [address] | | | | | | [phone] | | | | | | | | +--------+---------+ + + + documented as of this encounter Visit Diagnoses Not on filedocumented in this encounter"
--- OUTSIDE RECORDS SUMMARY | ~2019-07-14 | XMS | Encounter Summary ---
Demographics + + + | Address | [address] | | | [place] [address] | + + + | Home Phone [...] + + + | Author | [place] [employer] [facility] | + + + | Organization | [facility] | + + + | Address | Unknown | + + + | Phone | Unavailable | + + + Support + + +---------+ + | Name | Relationship | Address | Phone | + + +---------+ + | Alexandria Dixon | ECON | Unknown | | + + +---------+ + Care Team Providers + +------+ + | Care Backup Operator Name | Role | Phone | + +------+ + | Bernardo Pan | PCP | | + +------+ + Encounter Details +--------+------+ + + + | Date | Type | Department | Care Team | Description | +--------+------+ + + + | 05/12/ | Lab | Laboratory at [facility] | | 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); Pituitary | | | | [place], [place] | | adenoma (HCC); | | | | [address] | | 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[phone] | | deficiency (HCC); | | | | | | Diabetes insipidus | | | | | | ([facility]); Vitamin D | | | | | | deficiency; | | | | | | Hypogonadism male; | | | | | | Other specified | | | | | | hypothyroidism; | | | | | | Adrenal | | | | | | insufficiency ([facility]) | +--------+------+ + + + Social History [...] Rd | | | | | | [place], [place] | | | | | | [address] | | | | | | [phone] | | | | | | | [...] | + + + + + | [facility] | [address] | [place] [address] | | | SERVICES, CORE | KIMO [...] | + + + + + | [facility] | [address] | [place] [address] | | | SERVICES, CORE | KIMO [...] | | this test in the [facility] | | | | | | Laboratory Test | | | | | | Directory | | | | | | (Eko.Hiptype).Performed | | | | | | by [employer],[address] | | | | | | iMchi [place], [facility],[place] | | | | | | [address] | | | | | | [phone].Eko. | | | | | | [facility] MD, | | | | | | [...] [facility] | [address] | [place], [place] | | | UNIV PTH - INTFC | | [address] | | + + + + + [...] + | [facility] - | [address] | [place] [address] | | | [place] | | | | + + + [...] | | this test in the [facility] | | | | | | Laboratory Test | | | | | | Directory | | | | | | (Eko.Hiptype).Performed | | | | | | by [employer],[address] | | | | | | [place] | | | | | | [address] | | | | | | [phone].Eko. | | | | | | [facility], Ty Walter MD, | | | [...] [facility] | [address] | [place], [place] | | | UNIV PTH - INTFC | | [address] | | + + + + + [...] [facility] | [address] | [place] [address] | | | SERVICES, CORE | PARK [...] | | | LABORATORY | | | SLOVENIAN | | | SERVICES, | | | [...] | + + + + + | [facility] | [address] [facility] | [place] [address] | | | SERVICES, CORE | [...]
--- OUTSIDE RECORDS SUMMARY | ~2019-07-14 | XMS | Encounter Summary ---
Demographics + + + | Address | [address] | | | [place] [address] | + + + | Home Phone [...] + + + | Author | [place] [employer] [facility] | + + + | Organization | [facility] | [...] + +------+ + | Care Wage And Hour Investigator Name | Role | Phone | [...] [address] | | | | | Ulysses at | [address] | | | | | José [address] | [place], [place] | | | | | [facility] | [address] | | | | | [place], [place] | [phone] | | | | | [address] | | | | | | [phone] | | | +--------+ + + + [...] | | | | | | [place], [place] | | | | | | [address] | | | | | | [phone] | | | | | | | | +--------+---------+ + + + documented as of this encounter Visit Diagnoses Not on filedocumented in this encounter"
--- OUTSIDE RECORDS SUMMARY | ~2019-07-14 | XMS | Encounter Summary ---
Demographics + + + | Address | [address] | | | [place] [address] | + + + | Home Phone [...] + + + | Author | [place] [employer] [facility] | + + + | Organization | [facility] | + + + | Address | Unknown | + + + | Phone | Unavailable | + + + Support + + +---------+ + | Name | Relationship | Address | Phone | + + +---------+ + | Alexandria Dixon | ECON | Unknown | | + + +---------+ + Care Team Providers + +------+ + | Care Business Intelligence Manager Name | Role | Phone | [...] | | | | | C | [place] | [address] | | | | | ECHOCARDIOGR | [address] | [address] | | | | | AM, ADULT | Phone: | Building | | | | | | [phone] | [place], [place] | | | | | | Fax: | [address] | | | | | | [phone] | Phone: | | | | | | | [phone] | +--------+--------+ + + + + Encounter Details +--------+ + + + + | Date | Type | Department | Care Team | Description | +--------+ + + + + | 07/10/ | Waiter/Waitress Cabin Class | Cardiothoracic | Ashish Meyer, | Mitral valve mass | | 2016 | | Surgery at [facility] [address] | PA-C [address] | (Primary Dx) | | | | [address] | [address] | | | | | Rd Mailcode: L353 | [place], [place] | | | | | Physician's | [address] | | | | | Cristiana [place]inos[place], | [phone] | | | | | [place] [address] | | | | | | [phone] | | | +--------+ + + + [...] | | 2019 | Visit | | [address] | | | | | | [address] | | | | | | [place], [place] | | | | | | [address] | | | | | | [phone] | | | | | | | [...] Performed At | + + + | [facility] | [facility] DEPT OF | | [facility] Adult Echocardiography Laboratory [address] | CARDIOLOGY | | [place], [place] [address] Ph: | | | Pt Name: FAROOQ BAINS | | | Study Date/Time 08/14/2016 / 11:18:33 AMMRN: [id number] | | | Most recent prior: 07/08/2016Acc #: [id number] | | | No. previous echos: 1 MAURA ORDOB: 1980 36 years | | | Heart Rate: 84 bpmHeight: 68.0 in | | | Blood Pressure: 162/84 mm/HgWeight: 270.0 lb | | | Gender: MBSA: 2.32 m2 | | | Order ID: [id number] Senior Control Systems Engineer: Eric Carrion | | | RDCSSonographer 2: Nguyen Pettit [facility] Referring Provider: Ashish Hernandez | | | KennedyPatient Location: OPModalities Performed: 2D, Color flow, | | | Spectral Doppler and Definity contrast.Study Quality: This was a | | | technically difficult study, but image quality improved with echo | | | contrast.Exam Indication: Evaluate Mitral Valve MassHistory: 2010 [place], | | | LCx stent and METHANE 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 COLLECTION SYSTEM OPERATOR of RCA; cath 06/2016: moderate LAD disease, [...] | | | MitralLVID(d) 4.79 (3.5-5.7cm) Max Fdai 1.51 Peak E | | | 0.96 [...] | (2.1-3.5cm) 12.9 | | | cm mm/w8Wlnsicfgkm of chamber size and | | | geometry is accomplished through the incorporation of linear, | | | volumetric, and indexed values Report electronically signed by: | | | [id number] Juan Reeder MD (08/14/2016, 3:18:23 PM)REPORT [id number]=[id number] | | | HOSP=PO REGION=A0 Final | [...] | | | |Report electronically signed by: [id number] Juan Reeder MD (08/14/2016, 3:18:23 PM) | | |REPORT SKOQ=[id number] HOSP=PO REGION=A0 | | | | | | | | | | | | Final | | + + + + + | Procedure Note | + + | Interface, Cardiology Results - 08/14/2016 3:18 PM [facility] | | [facility] Echocardiography Laboratory [address] [place] [address] | | [place], [place] [address] Pt Name: FAROOQ KIM | | TYLER Study Date/Time 08/14/2016 / 11:18:33 AMMRN: [id number] [facility] | | recent prior: 07/08/2016Acc #: [id number] No. previous echos: 1 MAURA ORDOB: | | 1980 36 years Heart Rate: 84 bpmHeight: 68.0 in Blood | | Pressure: 162/84 mm/HgWeight: 270.0 lb Gender: MBSA: | | 2.32 m2 Order ID: [id number] Senior Control Systems Engineer: Eric Carrion | | RDCSSonographer 2: Nguyen Pettit RDCSReferring Provider: Ashish Kelley | | Location: OPModalities Performed: 2D, Color flow, Spectral Doppler and Definity | | contrast.Study Quality: This was a technically difficult study, but image quality | | improved with echo contrast.Exam Indication: Evaluate Mitral Valve MassHistory: 2010 [place], | | LCx stent and METHANE GAS COLLECTION SYSTEM OPERATOR of RCA; cath 06/2016: moderate LAD disease, [...] Sinus 3.00 | | (2.1-3.5cm) 12.9 cm mm/h0Dtcifnojbx | | of chamber size and geometry is accomplished through the incorporation of linear, | | volumetric, and indexed values Report electronically signed by: [id number] Juan Reeder | | (08/14/2016, 3:18:23 PM)REPORT NPGA=[id number] HOSP=PO REGION=A0 Final | |mitral annular calcification. [...] | | | |Report electronically signed by: [id number] Juan Reeder MD (08/14/2016, 3:18:23 PM) | |REPORT SXZV=[id number] HOSP=PO REGION=A0 | | | | | | | | Final | + + + + + + + | Performing | Address | City/State/Zipcode | Phone Number | | Organization | | | | + + + + + | [facility] DEPT OF | [address] | [place], [place] | | | CARDIOLOGY | [address] | [address] | | + + + + + documented in this encounter Visit Diagnoses + + | Diagnosis | + + | 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
--- OUTSIDE RECORDS SUMMARY | ~2019-07-14 | XMS | Encounter Summary ---
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: | | | | | artery | [facility], [place] | [address] | | | | | disease of | [address] | [address] | | | | | chalkyitsik | Phone: | [place], [place] | | | | | artery of | [phone] | [address] | | | | | chalkyitsik heart | Fax: | Phone: | | | | | with stable | [phone] | [phone] | | | | | 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
--- OUTSIDE RECORDS SUMMARY | ~2019-07-14 | XMS | Encounter Summary ---
Demographics + + + | Address | [address] | | | [place] [address] | + + + | Home Phone [...] + + + | Author | [place] [employer] [facility] | + + + | Organization | [facility] | + + + | Address | Unknown | + + + | Phone | Unavailable | + + + Support + + +---------+ + | Name | Relationship | Address | Phone | + + +---------+ + | Alexandria Dixon | ECON | Unknown | | + + +---------+ + Care Team Providers + +------+ + | Care Chain Forming Machine Operator Name | Role | Phone [...] | | | [address] | [place], [place] | Duct (Pouch) (HCC) | | | | Mailcode: [id number] | [address] | (Primary Dx) | | | | [facility] | [phone] | | | | | [address] | | | | | | [place], [place] | | | | | | [address] | | | | | | [phone] | | | +--------+---------+ + + + [...] Rd | | | | | | [place], [place] | | | | | | [address] | | | | | | [phone] | | | | | | | [...] Performed At | + + + | [id number] Estimated GFR > 60 mL/min/1.73 sq m if non- | [facility] | | [id number] Estimated GFR > 60 mL/min/1.73 sq m [...] + + | [facility] | [address] | [place] [address] | | | PATHOLOGY | [address] | | | + + + + + | [facility] | [address] [place] [address] | [place] [address] | | | PATHOLOGY | [address] [...] Performed At | + + + | [id number] Estimated GFR > 60 mL/min/1.73 sq m if non- | [facility] | | [id number] Estimated GFR > 60 mL/min/1.73 sq m [...] [facility] | [address] | [place] [address] | | | PATHOLOGY | [address] | | | + + + + + | [facility] | [address] | [place] [address] | | | PATHOLOGY | [address] [...] + + + | [facility] | [address] | [place] [address] | | | LABORATORY | | | [...]
--- OUTSIDE RECORDS SUMMARY | ~2019-07-14 | XMS | Encounter Summary ---
Demographics + + + | Address | [address] | | | [place] [address] | + + + | Home Phone [...] + + + | Author | [place] [employer] [facility] | + + + | Organization | [facility] | [...] Team Providers + +------+ + | Care System Sales Consultant Name | Role | Phone [...] | | | 2008 | | [facility] [address] | Cathie | | | | | [place] Mailcode: CH8N | DNP,DISPATCHER SHIP PILOT,[place] [address] | | | | | [facility] | [address] [place], | | | | | and Healing, | [place] [address] | | | | | [facility] 1 | [phone] | | | | | [place], [place] | | | | | | [address] | | | | | | [phone] | | | +--------+ + + + [...] Rd | | | | | | [place], [place] | | | | | | [address] | | | | | | [phone] | | | | | | | | +--------+---------+ + + + documented as of this encounter Visit Diagnoses Not on filedocumented in this encounter"
--- OUTSIDE RECORDS SUMMARY | ~2019-07-14 | XMS | Encounter Summary ---
Demographics + + + | Address | [address] | | | [place] [address] | + + + | Home Phone [...] + + + | Author | [place] [employer] [facility] | + + + | Organization | [facility] [...] Team Providers + +------+ + | Care Traffic Operations Manager Name | Role | Phone | + +------+ + | No Pcp Per Patient | PCP | Unavailable | + +------+ + Encounter Details +--------+ + + + + | Date | Type | Department | Care Team | Description | +--------+ + + + + | 01/24/ | Licensing And Registration Director | Neurosurgery at | [place], | Pituitary Adenoma | | 2007 | | [facility] [address] | [place], | ([facility]); 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Ave Mailcode: CH8N | DNP,SENIOR GEOLOGIST,[place] [address] | Hormone Deficiency | | | | [facility] | [address] [place], | ([facility]); Diabetes | | | | and [facility], | [place] [address] | Insipidus ([facility]); | | | | Building 1 | [phone] | Hypogonadism Male; | | | | [place], [place] | | Hypothyroid; Adrenal | | | | [address]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
--- OUTSIDE RECORDS SUMMARY | ~2019-07-14 | XMS | Encounter Summary ---
Demographics + + + | Address | [address] | | | [place] [address] | + + + | Home Phone [...] + + + | Author | [place] [employer] [facility] | + + + | Organization | [facility] [...] Team Providers + +------+ + | Care Bush Regenerator Name | Role | Phone | + +------+ + | Jhonny Rodriguez DO | PCP | | + +------+ + Encounter Details +--------+ + + + + | Date | Type | Department | Care Team | Description | +--------+ + + + + | 07/14/ | MyChart | Neurosurgery at | Donnie, | RE: Meds | | 2011 | Encounter | [facility] [address] | | | | | [place] Mailcode: CH8N | DNP,YARD SWITCHER,[place] [address] | | | | | [facility] | [address]ura [address], | | | | | and [place], | [place] [address] | | | | | [place] [address] | [phone] | | | | | [place], [place] | | | | | | [address] | | | | | | [phone] | | | +--------+ + + + [...] Rd | | | | | | [place], [place] | | | | | | [address] | | | | | | [phone] | | | | | | | | +--------+---------+ + + + documented as of this encounter Visit Diagnoses Not on filedocumented in this encounter"
--- OUTSIDE RECORDS SUMMARY | ~2019-07-14 | XMS | Encounter Summary ---
Demographics + + + | Address | [address] | | | [place] [address] | + + + | Home Phone [...] + + + | Author | [place] [employer] [facility] | + + + | Organization | [facility] & [facility] [...] + +------+ + | Care Director Of Student Financial Services Name | Role | Phone | + [...] n | Abdoulaye Mailcode: [id number] | [place], [place] | | | | | [place], [place] | [address] | | | | | [address] | | | | | | [phone] | | | +--------+ + + + [...] | | 2019 | Visit | | [address] | | | | | | [address] | | | | | | [place] | | | | | | [address] | | | | | | [phone] | | | | | | | | +--------+---------+ + + + documented as of this encounter Visit Diagnoses Not on filedocumented in this encounter"
--- OUTSIDE RECORDS SUMMARY | ~2019-07-14 | XMS | Encounter Summary ---
Demographics + + + | Address | [address] | | | [place] [address] | + + + | Home Phone [...] + + | Author | [place] [employer] [facility] | + + + | Organization | [facility] & Science [facility] | [...] Team Providers + +------+ + | Care Child Care Aide Name | Role | Phone | [...] | | | [address] | [place], [place] | | | | | Mailcode: [id number] | [address] | | | | | [facility] | [phone] | | | | | [address] | | | | | | [place], [place] | | | | | | [address] | | | | | | [phone] | | | +--------+ + + + [...] | | 2020 | Visit | | [address] | | | | | | [address] | | | | | | [place], [place] | | | | | | [address] | | | | | | [phone] | | | | | | | [...] | | + +---------+ + + | [facility] DEPARTMENT | | | | | RADIOLOGY | | | | + +---------+ + + documented in this encounter Visit Diagnoses Not on filedocumented in this encounter"
--- OUTSIDE RECORDS SUMMARY | ~2019-07-14 | XMS | Encounter Summary ---
Demographics + + + | Address | [address] | | | [place] [address] | + + + | Home Phone [...] + + + | Author | [place] [employer] [facility] | + + + | Organization | [facility] [...] Providers + +------+ + | Care Tub Wash Operator Name | Role | Phone [...] | | | Pituitary | Cathie, | [facility] [address] | | | | | adenoma | DNP,VISUAL TRAINING AIDE,[place] | [address] | | | | | ([facility]) | [address] | Mailcode: | | | | | Growth | Ave | [facility] | | | | | hormone | [place], [place] | for Health | | | | | deficiency | [address] | and Healing, | | | | | ([facility]) | Phone: | Building 1, | | | | | Panhypopitui | [phone] | 3rd Floor | | | | | tarism ([facility]) | Fax: | [place], [place] | | | | | Procedures | [phone] | [address] | | | | | MRI | | Phone: | | | | | PITUITARY | | [phone] | | | | | WWO CONTRAST | | Fax: | | | | | [place] MRI | | [phone] | | | | | BRAIN COMBO [...] | | | | | adenoma | DNP,VISUAL TRAINING AIDE,[place] | [address] | | | | | ([facility]) | [address] | Mailcode: | | | | | Growth | Ave | [facility] | | | | | hormone | [place], [place] | for Health | | | | | deficiency | [address] | and Healing, | | | | | (HCC) | Phone: | Building 1, | | | | | Panhypopitui | [phone] | 3rd Floor | | | | | tarism (HCC) | Fax: | [place], [place] | | | | | Procedures | [phone] | [address] | | | | | MRI | | Phone: | | | | | PITUITARY | | [phone] | | | | | WWO CONTRAST | | Fax: | | | | | [place] MRI | | [phone] | | | | | BRAIN COMBO | | | +--------+--------+ + + + + Encounter Details +--------+ + + + + | Date | Type | Department | Care Team | Description | +--------+ + + + + | 02/24/ | Hospital | Radiology/Imaging | Donnie, | | | 2019 | Encounter | Lab at [facility] [address] | Cathie, | | | | | [address] Mailcode: | DNP,VISUAL TRAINING AIDE,[place] [address] | | | | | [facility] | [address] [place], | | | | | Health and Healing, | [place] [address] | | | | | [address] | [phone] | | | | | Floor [place], [place] | | | | | | [address] | | | | | | [phone] | | | +--------+ + + + [...] Rd | | | | | | [place], [place] | | | | | | [address] | | | | | | [phone] | | | | | | | [...]
--- OUTSIDE RECORDS SUMMARY | ~2019-07-14 | XMS | Encounter Summary ---
Demographics + + + | Address | [address] | | | [place] [address] | + + + | Home Phone [...] + | Author | [facility] | | | and [place] | + + + | Organization | [facility] | | | and [place] [...] Team Providers + +------+ + | Care Ed Transporter Name | Role | Phone | + [...] + | 04/13/ | Office | [facility] | Sumanth Champion PA | MALLIKA on CPAP (Primary | | 2012 | Visit | SLEEP DISORDER [address] | [address] | Dx) | | | | [address] [place] | [place], [place] | | | | | [place] [address] | [address] | | | | | [phone] | | | +--------+---------+ + + + [...] Insomnia Severity Index Insomnia Severity Index 11 [place] Sleepiness Scale Sitting and reading 1 Watching [...] mask obtained from: [facility] [place] pressure: 12-18 cm 95%: 13.6 cm maximum: [...] appro piate paperwork. Fifteen minutes were spent [id number]-[id number], with the majority of time spent i [...] 2019 | Visit | | [address] [facility] | | | | | | [place] | | | | | | [phone] | | | | | | | | +--------+---------+ + + + documented as of this encounter Visit Diagnoses + + | Diagnosis | + + | MALLIKA on CPAP - Primary Obstructive sleep apnea (adult) (pediatric) | + + documented in this encounter"
--- OUTSIDE RECORDS SUMMARY | ~2019-07-14 | XMS | Encounter Summary ---
Demographics + + + | Address | [address] | | | [place] [address] | + + + | Home Phone [...] + + + | Author | [place] [employer] [facility] | + + + | Organization | [facility] | [...] Providers + +------+ + | Care Child Support Specialist Name | Role | Phone [...] Misael | | | | | | [address] | [address] | | | | | | [place] | [address] | | | | | | [place] | Rd [place], | | | | | | [address] | [place] | | | | | | | [address] | | | | | | | Phone: | | | | | | | [phone] | | | | | | | Fax: | | | | | | | [phone] | +--------+--------+ + + + + Encounter Details +--------+---------+ + + + | Date | Type | Department | Care Team | Description | +--------+---------+ + + + | 10/31/ | Office | Otolaryngology | Misael West, | Pituitary Adenoma | | 2005 | Visit | Head and Neck | [address] | ([facility]) (Primary Dx) | | | | Surgery Services at | [facility] [address] | | | | | [place] [address] | [place], [place] | | | | | [facility] [address] | [address] | | | | | Mailcode: PV01 | [phone] | | | | | [facility] | | | | | | [place], [place] | | | | | | [address] | | | | | | [phone] | | | +--------+---------+ + + + [...] Rd | | | | | | [place], [place] | | | | | | [address] | | | | | | [phone] | | | | | | | | +--------+---------+ + + + documented as of this encounter Visit Diagnoses + + | Diagnosis | + + | Pituitary adenoma (HCC) - Primary Benign neoplasm of pituitary gland and | | craniopharyngeal duct (pouch) | + + documented in this encounter"
--- OUTSIDE RECORDS SUMMARY | ~2019-07-14 | XMS | Encounter Summary ---
Demographics + + + | Address | [address] | | | [place] [address] | + + + | Home Phone [...] + + + | Author | [place] [employer] [facility] | + + + | Organization | [facility] [...] Team Providers + +------+ + | Care Foundry Patternmaker Name | Role | Phone | + [...] Refill Request | | 2012 | | [facility] [address] | Cathie, | | | | | [place] Mailcode: CH8N | DNP,DIRECTOR OF MANAGED SERVICES,[place] [address] | | | | | [facility] | [address] [place], | | | | | and Healing, | [place] [address] | | | | | Building 1 | [phone] | | | | | [place], [place] | | | | | | [address] | | | | | | [phone] | | | +--------+--------+ + + + [...] Rd | | | | | | [place], [place] | | | | | | [address] | | | | | | [phone] | | | | | | | | +--------+---------+ + + + documented as of this encounter Visit Diagnoses Not on filedocumented in this encounter"
--- OUTSIDE RECORDS SUMMARY | ~2019-07-14 | XMS | Encounter Summary ---
Demographics + + + | Address | [address] | | | [place] [address] | + + + | Home Phone [...] + + + | Author | [employer] [facility] | + + + | Organization | [facility] | + + + | Address | Unknown | + + + | Phone | Unavailable | + + + Support + + +---------+ + | Name | Relationship | Address | Phone | + + +---------+ + | Alexandria Dixon | ECON | Unknown | | + + +---------+ + Care Team Providers + +------+ + | Care Correctional Program Specialist Name | Role | Phone | [...] Refill Request | | 2009 | | [facility] [address] | Cathie, | | | | | [place] Mailcode: CH8N | DNP,IRONWORKER APPRENTICE SHOP,[place] [address] | | | | | [facility] | [address] [place], | | | | | and [facility] [place], | [place] [address] | | | | | Building 1 | [phone] | | | | | [place], [place] | | | | | | [address] | | | | | | [phone] | | | +--------+--------+ + + + [...] | | | | | | [place], [place] | | | | | | [address] | | | | | | [phone] | | | | | | | | +--------+---------+ + + + documented as of this encounter Visit Diagnoses Not on filedocumented in this encounter"
--- OUTSIDE RECORDS SUMMARY | ~2019-07-14 | XMS | Encounter Summary ---
Demographics + + + | Address | [address] | | | [place] [address] | + + + | Home Phone [...] + + + | Author | [place] [employer] [facility] | + + + | Organization | [facility] | + + + | Address | Unknown | + + + | Phone | Unavailable | + + + Support + + +---------+ + | Name | Relationship | Address | Phone | + + +---------+ + | Alexandria Dixon | ECON | Unknown | | + + +---------+ + Care Team Providers + +------+ + | Care Musculoskeletal Physician Name | Role | Phone | [...] Description | +--------+--------+ + + + | 05/27/ | Refill | Neurosurgery at | Donnie, | Refill Request | | 2011 | | [facility] [address] | Cathie, | | | | | [place] Mailcode: CH8N | DNP,CEMENT SIDE [place] [address] | | | | | [facility] | [address] [place], | | | | | and Healing, | [place] [address] | | | | | Building 1 | [phone] | | | | | [place], [place] | | | | | | [address] | | | | | | [phone] | | | +--------+--------+ + + + [...] Rd | | | | | | [place], [place] | | | | | | [address] | | | | | | [phone] | | | | | | | [...]
--- OUTSIDE RECORDS SUMMARY | ~2019-07-14 | XMS | Encounter Summary ---
Demographics + + + | Address | [address] | | | [place] [address] | + + + | Home Phone [...] + + | Author | [place] [employer] [facility] | + + + | Organization | [facility] [...] Providers + +------+ + | Care Manager Casino Name | Role | Phone | + [...] | | | [place] Mailcode: CH8N | DNP,ROOM ATTENDANT,[place] [address] | | | | | [facility] | [address] [place], | | | | | and [facility], | [place] [address] | | | | | [facility] | [phone] | | | | | Floor [place] | | | | | | [address] | | | | | | [phone] | | | +--------+--------+ + + + [...] Rd | | | | | | [place], [place] | | | | | | [address] | | | | | | [phone] | | | | | | | | +--------+---------+ + + + documented as of this encounter Visit Diagnoses Not on filedocumented in this encounter"
--- OUTSIDE RECORDS SUMMARY | ~2019-07-14 | XMS | Encounter Summary ---
Demographics + + + | Address | [address] | | | [place] [address] | + + + | Home Phone [...] | [facility] | | | and [place] | + + + | Organization | [facility] | | | and [...] Team Providers + +------+ + | Care Gasoline Engine Inspector Name | Role | Phone | [...] + | 04/03/ | Telephone | [facility] | Mckay De Leon MD | Procedure (surgery | | 2016 | | OTOLARYNGOLOGY [address] | [address] [place] | time ) | | | | [address] [place] [address] | [address], | | | | | [place] | [place] [address] | | | | | [address] | [phone] | | | | | [phone] | | | +--------+ + + + [...] 2020 | Visit | | [address] | | | | | | [place] | | | | | | [address] | | | | | | | | +--------+---------+ + + + documented as of this encounter Visit Diagnoses Not on filedocumented in this encounter"
--- OUTSIDE RECORDS SUMMARY | ~2019-07-14 | XMS | Encounter Summary ---
Demographics + + + | Address | [address] [facility] [address] | | | [place] [address] | + + + | Home Phone [...] + + | Author | [place] [employer] [facility] | + + + | Organization | [facility] | [...] Providers + +------+ + | Care Sports Book Server Name | Role | Phone | [...] | | | Clinic [address] | DNP,VASCULAR TECHNOLOGIST SONOGRAPHER,[place] [address] | | | | | [address] | [address] [place], | | | | | Mailcode: [id number] | [place] [address] | | | | | [place] | [phone] | | | | | [address] | | | | | | [place], [place] | | | | | | [address] | | | | | | [phone] | | | +--------+ + + + [...] Rd | | | | | | [place], [place] | | | | | | [address] | | | | | | [phone] | | | | | | | [...] | | + +---------+ + + | [facility] | | | | | RADIOLOGY | | | | + +---------+ + + documented in this encounter Visit Diagnoses Not on filedocumented in this encounter"
--- OUTSIDE RECORDS SUMMARY | ~2019-07-14 | XMS | Encounter Summary ---
Demographics + + + | Address | [address] | | | [place] [address] | + + + | Home Phone [...] + + + | Author | [place] [employer] [facility] | + + + | Organization | [facility] [...] Team Providers + +------+ + | Care Helicopter Engineer Name | Role | Phone | [...] | Surgery | | Bernardo Flores | MD Jaclyn | | | | | Hypopituitar | [place] | [address] | | | | | ism Benign | [place] | [facility] | | | | | neoplasm of | HEALTH | Rd [place], | | | | | pituitary | CENTER | [place] | | | | | gland | [address] | [address] | | | | | Diabetes | [facility] | Phone: | | | | | insipidus | [address] | [phone] | | | | | 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: | | | | | hypofunction | [place], | [phone] | | | | | | [place] [address] | | | | | | Hypothyroidi | Phone: | | | | | | sm, | [phone] | | | | | | unspecified | Fax: | | | | | | Unspecified | [phone] | | | | | | | | | | | | | adrenocortic | | | | | | | al | | | | | | | insufficienc | | | | | | | y | | | | | | | Procedures | | | | | | | SC EST | | | | | | | PATIENT | | | | | | | LEVEL V SC | | | | | | | THR/PRPH/DX | | | | | | | INJ,IV PSH | | | | | | | SC INJ | | | | | | [...] adenoma | | 2018 | Visit | [facility] [address] | Cathie | ([facility]) (Primary Dx); | | | | Ave Mailcode: [address]N | DNP,MATERIALS DIRECTOR,[place] [address] | 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[facility] | [address] [place], | deficiency ([facility]); | | | | and Healing, | [place] [address] | Diabetes insipidus | | | | Building 1 | [phone] | ([facility]); Hypogonadism | | | | [facility] [place] | | male; Other | | | | [address] | | specified | | | | [phone] | | hypothyroidism; | | | | | | Adrenal | | | | | | insufficiency ([facility]); | | | | | | Vitamin [...] in this encounter Progress Notes Cathie Fields, SANIYA,MATERIALS DIRECTOR,[place] - 02/18/2018 9:00 AM PDTFormatting of this [...] cardiac stent place 02/2011 after a n [place]. Had further episode of CP 04/26 with [...] regularly Sleeps more during the day at [facility] Still feels hot a lot of [...] CREATININE PLASMA (LAB) 0.70-1.30 mg/dL EGFR - DUTCH >60 mL/min EGFR NON -DUTCH >60 mL/min SODIUM, PLASMA (LAB) 136-145 mmol/L [...] PLASMA (LAB) 0.70-1.30 mg/dL 0.81 EGFR - DUTCH >60 mL/min >60 EGFR NON -DUTCH >60 mL/min >60 SODIUM, PLASMA (LAB) 136-145 [...] 25 HYDROXY 30-80 ng/mL Component Latest Ref [facility] 06/22/2015 06/22/2015 06/22/2015 10:26 AM 10:26 AM 10:26 AM GLUCOSE, PLASMA (LAB) 60-99 mg/dL BUN, PLASMA (LAB) 6-20 mg/dL CREATININE PLASMA (LAB) 0.70-1.30 mg/dL EGFR - DUTCH >60 mL/min EGFR NON -DUTCH >60 mL/min SODIUM, PLASMA (LAB) 136-145 mmol/L POTASSIUM, PLASMA (LAB) 3.4-5.0 mmol/L CHLORIDE, PLASMA (LAB) 97-108 mmol/L TOTAL CO2, PLASMA (LAB) 21-32 mmol/L CALCIUM, PLASMA (LAB) 8.6-10.2 mg/dL ANION GAP POTASSIUM CMNT FREE T4, SERUM 0.6-1.2 ng/dL PROLACTIN 3 - 13 ng/mL TSH 0.39-4.17 mIU/L 0.61 HEMOGLOBIN A1C <5.7 % 7.9 (H) PSA,TOTAL,SCREENING <=2.50 ng/mL 0.24 Component Latest Ref [facility] 06/22/2015 06/22/2015 06/22/2015 10:26 AM 10:26 AM 10:26 AM GLUCOSE, PLASMA (LAB) 60-99 mg/dL 141 (H) BUN, PLASMA (LAB) 6-20 mg/dL 11 CREATININE PLASMA (LAB) 0.70-1.30 mg/dL 0.95 EGFR - DUTCH >60 mL/min >60 EGFR NON -DUTCH >60 mL/min >60 SODIUM, PLASMA (LAB) 136-145 [...] CREATININE PLASMA (LAB) 0.70-1.30 mg/dL EGFR - DUTCH >60 mL/min EGFR NON -DUTCH >60 mL/min SODIUM, PLASMA (LAB) 136-145 mmol/L [...] PLASMA (LAB) 0.70-1.30 mg/dL 0.78 EGFR - DUTCH >60 mL/min >60 EGFR NON -DUTCH >60 mL/min >60 SODIUM, PLASMA (LAB) 136-145 [...] CREATININE PLASMA (LAB) 0.70-1.30 mg/dL EGFR - DUTCH >60 mL/min EGFR NON -DUTCH >60 mL/min SODIUM, PLASMA (LAB) 136-145 mmol/L [...] PLASMA (LAB) 0.70-1.30 mg/dL 0.72 EGFR - DUTCH >60 mL/min >60 EGFR NON -DUTCH >60 mL/min >60 SODIUM, PLASMA (LAB) 136-145 [...] 0.70 - 1.30 mg/dL 0.84 EGFR - DUTCH >60 mL/min >60 EGFR NON -DUTCH >60 mL/min >60 SODIUM, PLASMA (LAB) 136 [...] (LAB) 0.70 - 1.30 mg/dL EGFR - DUTCH >60 mL/min EGFR NON -DUTCH >60 mL/min SODIUM, PLASMA (LAB) 136 - [...] at times. Recommend he follow up with halal butcher. He reports taking meds more regularly and [...] With labs And MRI CATHIE FIELDS DNP, MATERIALS DIRECTOR, [place] Mold Carrier [facility] [place] [address] [place] [address] Component Latest Ref Rng & Units 02/18/2018 02/18/2018 02/18/2018 02/18/2018 9:52 AM 9:52 AM 9:52 AM 9:52 AM GLUCOSE, PLASMA (LAB) 70 - 99 mg/dL 130 (H) BUN, PLASMA (LAB) 6 - 20 mg/dL 14 CREATININE PLASMA (LAB) 0.70 - 1.30 mg/dL 1.07 EGFR - DUTCH >60 mL/min >60 EGFR NON -DUTCH >60 mL/min >60 SODIUM, PLASMA (LAB) 136 [...] (LAB) 0.70 - 1.30 mg/dL EGFR - DUTCH >60 mL/min EGFR NON -DUTCH >60 mL/min SODIUM, PLASMA (LAB) 136 - [...] up 02/25 with MRI RM labs TOMER MONTELOGNO DNP, [place] Mold [employer] [facility] [address] [facility] [address]Lalagrbjszhmmo signed by Cathie Fields DNP, FNP, [place] [...] Rd | | | | | | [place], [place] | | | | | | [address] | | | | | | [phone] | | | | | | | [...] | + + + + + | [facility] | [address] | [place] [address] | | | MASSIEL, CORE | KIMO [...] | + + + + + | [facility] | [address] [facility] | [place] [address] | | | SERVICES, VITALY | KIMO [...] [facility] | [address] | [place] [address] | | | SERVICES, CORE | KIMO [...] + + + | Test performed in [facility] lab. New reference range in effect | [facility] | | 2-6-18. | LABORATORY | | | VITALY RANKIN | + + + + + + + + | Performing | Address | City/State/Zipcode | Phone Number | | Organization | | | | + + + + + | [facility] | [address] | [place] [address] | | | SERVICES, VITALY | KIMO [...] | | | | | | by [address] | | | | | | Jaziel Marx, [facility] [place] | | | | | | [address] | | | | | | [phone].TensorCom[employer]ab. | | | | | | Ty [...] [facility] | [address] | [place], [place] | | | UN[facility] | | [address] | | + + + + + [...] | | | LABORATORY | | | DUTCH | | | SERVICES, | | | [...] | + + + + + | [facility] | [address] | [place] [address] | | | SERVICES, CORE | [address] | | | + + + + + documented in this encounter Visit Diagnoses + + | Diagnosis | + + | Pituitary adenoma (HCC) - Primary Benign neoplasm of pituitary gland and | | craniopharyngeal duct (pouch) | + + | Growth hormone deficiency (HCC) Pituitary dwarfism | + + | Diabetes insipidus ([facility]) Diabetes insipidus | + + | Hypogonadism male Other testicular hypofunction | + + | Other specified hypothyroidism | + + | Adrenal insufficiency (HCC) Glucocorticoid deficiency | + + | Vitamin D deficiency | + + documented in this encounter"
--- OUTSIDE RECORDS SUMMARY | ~2019-07-14 | XMS | Encounter Summary ---
Demographics + + + | Address | [address] | | | [place] [address] | + + + | Home Phone [...] + + + | Author | [place] [employer] [facility] | + + + | Organization | [facility] | + + + | Address | Unknown | + + + | Phone | Unavailable | + + + Support + + +---------+ + | Name | Relationship | Address | Phone | + + +---------+ + | Alexandria Dixon | ECON | Unknown | | + + +---------+ + Care Team Providers + +------+ + | Care Main Line Station Engineer Name | Role | Phone | [...] | | | | | | [place], | | | | | | | [place] | | | | | | | [address] | | | | | | | Phone: | | | | | | | [phone] | | | | | | | Fax: | | | | | | | [phone] | +--------+--------+ + + + + Encounter Details +--------+---------+ + + + | Date | Type | Department | Care Team | Description | +--------+---------+ + + + | 08/31/ | Office | Neurosurgery at | Donnie, | Pituitary Adenoma | | 2007 | Visit | [address] | Cathie, | ([facility]); 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Ave Mailcode: CH8N | DNP,ELECTRIC GOLF CART REPAIRER,[place] [address] | Hormone Deficiency | | | | [place] for [facility] | [address] [place], | ([facility]); 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, | [place] [address] | Insipidus ([facility]); | | | | Building 1 | [phone] | Hypogonadism Male; | | | | [place], [place] | | Hypothyroid; Adrenal | | | | [address]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 ([facility]) | | | | [phone] | | | +--------+---------+ + + + [...] Notes Cathie Fields - 08/31/2007 3:19 PM CESARRedaaynara for visit. Amairani Tyler returns to pituit [...] to CTS. 5. 1.5. MRI 5.08 with CHECK GRADER and RM testing. I spent 40 mins [...] | | 2020 | Visit | | [address] | | | | | | [address] | | | | | | [place], [place] | | | | | | [address] | | | | | | [phone] | | | | | | | [...] + + + | [facility] | [address] | [place] [address] | | | LABORATORY | | | [...] RLB ([address] [facility]) | | | [facility] [place] [address] [place] [facility] | | | [place] [address] | | + + + + + + + + | Performing | Address | City/State/Zipcode | Phone Number | | Organization | | | | + + + + + | [facility] | [address] | [place] [address] | | | LABORATORY | | | [...] change effective 05/31/07 | | | RLB ([facility]) [facility] | | | [address] [facility] [place], | | | [place] [address] | | + + + + + + + + | Performing | Address | City/State/Zipcode | Phone Number | | Organization | | | | + + + + + | [facility] | [address] | [place] [address] | | | LABORATORY | | | [...] RLB ([address] [facility]) | | | [facility] [place] [address] | | | [place] [address] | | + + + + + + + + | Performing | Address | City/State/Zipcode | Phone Number | | Organization | | | | + + + + + | [facility] | [address] | [place] [address] | | | LABORATORY | | | [...] Performed At | + + + | [id number] Estimated GFR > 60 mL/min/1.73 sq m if non- | [facility] | | [id number] Estimated GFR > 60 mL/min/1.73 sq m [...] | + + + + + | [facility] | [address] | [place] [address] | | | PATHOLOGY | [address] | | | + + + + + | [facility] | [address] | [place] [address] | | | PATHOLOGY | [address] [...]
--- OUTSIDE RECORDS SUMMARY | ~2019-07-14 | XMS | Encounter Summary ---
Demographics + + + | Address | [address] | | | [place] [address] | + + + | Home Phone [...] + + + | Author | [place] [employer] [facility] | + + + | Organization | [facility] | [...] Team Providers + +------+ + | Care Anodizing Line Operator Name | Role | Phone | + +------+ + PCP | Unavailable | + +------+ + Encounter Details +--------+ + + + + | Date | Type | Department | Care Team | Description | +--------+ + + + + | 07/22/ | MyChart | Neurosurgery at | Donnie, | Chela | | 2016 | Encounter | [facility] [address] | Cathie | | | | | [place] Mailcode: CH8N | DNP,FIELD MECHANIC/SITE LEAD,[place] [address] | | | | | [facility] | [address] [place], | | | | | and Healing, | [place] [address] | | | | | [place] [address] | [phone] | | | | | [place], [place] | | | | | | [address] | | | | | | [phone] | | | +--------+ + + + [...] Rd | | | | | | [place], [place] | | | | | | [address] | | | | | | [phone] | | | | | | | | +--------+---------+ + + + documented as of this encounter Visit Diagnoses Not on filedocumented in this encounter"
--- OUTSIDE RECORDS SUMMARY | ~2019-07-14 | XMS | Encounter Summary ---
Demographics + + + | Address | [address] [address] | | | [place] [address] | + + + | Home Phone [...] + + | Author | [place] [employer] [facility] | + + + | Organization | Count Includes [facility] [...] Team Providers + +------+ + | Care Commissioner Of Internal Revenue Name | Role | Phone | + [...] | Chest pain, | [place], | [address] | | | | | unspecified | [address] | [address] | | | | | type | [address] | [address] | | | | | Coronary | [address] | Mailcode: | | | | | artery | [facility] [place] | [address] | | | | | disease of | [address] | [address] | | | | | [place] | Phone: | [place], [place] | | | | | artery of | [phone] | [address] | | | | | [place] heart | Fax: | Phone: | | | | | with stable | [phone] | [phone] | | | | | angina | | Fax: | | | | | pectoris | | [phone] | | | | | (HCC) | [...] | | | | | | | AK HT MUSCLE | | | | | [...] | | 2018 | Encounter | at [facility] [address] | [address] | | | | | [address] Mailcode: | [facility] | | | | | [address] for | [place], [place] | | | | | Health and Healing, | [address] | | | | | [place] [address] [facility] | [phone] | | | | | [place], [place] | | | | | | [address] | | | | | | [phone] | | | +--------+ + + + [...] Rd | | | | | | [place], [place] | | | | | | [address] | | | | | | [phone] | | | | | | | [...] Note | + + | Service Account, [email or web address] In Interface - 07/08/2018 12:30 PM CESAR [...] SPECT | | | | | | [id number] | | | | | | perfusion [...] [facility] | [address] | [place], [place] | | | CARDIOLOGY | [address] | [address] | | + + + + + documented in this encounter Visit Diagnoses + + | Diagnosis | + + | Chest pain, unspecified type - Primary | + + | Coronary artery disease of [place] artery of [place] heart with stable angina pectoris | | (HCC) | + + documented in this encounter"
--- OUTSIDE RECORDS SUMMARY | ~2019-07-14 | XMS | Encounter Summary ---
Demographics + + + | Address | [address] [facility] [address] [facility] | | | [place] [address] | + + + | Home Phone [...] + + + | Author | [place] [employer] [facility] | + + + | Organization | [facility] [...] Team Providers + +------+ + | Care Tableau Administrator Name | Role | Phone | [...] Refill Request | | 2011 | | [facility] [address] | Cathie, | | | | | [place] Mailcode: CH8N | DNP,FUSION ANALYST,[place] [address] | | | | | [facility] | [address] [place], | | | | | and Healing, | [place] [address] | | | | | Building 1 | [phone] | | | | | [place], [place] | | | | | | [address] | | | | | | [phone] | | | +--------+--------+ + + + [...] Rd | | | | | | [place], [place] | | | | | | [address] | | | | | | [phone] | | | | | | | [...]
--- OUTSIDE RECORDS SUMMARY | ~2019-07-14 | XMS | Encounter Summary ---
Demographics + + + | Address | [address] | | | [place] [address] | + + + | Home Phone [...] + + + | Author | [place] [employer] [facility] | + + + | Organization | [facility] [...] Team Providers + +------+ + | Care Wire Spiral Binder Name | Role | Phone | + [...] | Catheterizati | Coronary | Zuleika, | Transcript Evaluator | | | | on | artery | MD [address] | [address] | | | | | disease of | [address] | [address] | | | | | tlingit & haida | [address] | Rd [facility] | | | | | artery of | [facility] | | | | | tlingit & ha[place] heart | [address] | [place], [place] | | | | | with stable | Phone: | [address] | | | | | angina | [phone] | Phone: | | | | | pectoris | Fax: | [phone] | | | | | (HCC) | [phone] | Fax: | | | | | Procedures | | [phone] | | | | | WRITING MANAGER INT | | | | | | | CORONARY | | | | | | | ANGIOGRAM | | | | | | | SD CORONARY | | | | | | | ARTERY ANGIO | | | | | | | S&I SD | | | | | | | [...] + + | 04/13/ | Hospital | [facility] [address] | Galdino Ramirez | | | 2018 | Encounter | [address] | MD Josef [address] | | | | | [address] [facility] | [place], [place] | | | | | [place], [place] | [address] | | | | | [address] | [phone] | | | | | [phone] | | | +--------+ + + + [...] weekends, and holidays, call [facility] Bss Solution Architect at and ask to have the Bean Sorter on-call paged. Discharge Medications ? Plavix (clopidogrel) It is important that you take Plavix every day for one year kianna use it helps to keep the stent open. You need to take it every day and do not stop it unless you are told to by your tool filer. ? Take an aspirin 325mg once daily [...] or oozing. Radial pulse is 2+ with rsosy l Reverse Barbeau test. There are no [...] following procedure. The patient will stay in [facility] with his family member Discharge Vito Jay MD Bean Sorter [facility] Pager [phone] Vito Ortiz Md - 11/2017 10:14 AM PDTCardiology Preliminary Procedure Note (Full report to follow) Primary Care Provider: Priscilla Ramírez PA-C Referring Provider: Transcript Evaluator Staff: Galdino Ramirez M.D. Procedure(s): Coronary Angiography [...] least 6 months. Vito Jay MD Interventional Bean Sorter [facility] Pager [phone] documented in this enco unter Plan of [...] [place] | | | | | | [address] | | | | | | [phone] | | | | | | | [...] e | 9:43 AM | disease of tlingit & haida | procedure are in the | | | | PDT | artery of tlingit & haida | results section. | | | | [...] e | 7:35 AM | disease of tling[place] & haida | procedure are in the | | POC | | PDT | artery of tlingit & haida | results section. | | | | [...] | + +--------+ + + + | WRITING MANAGER INT | Routin | 04/13/2018 | Coronary artery | Results for this | | CORONARY ANGIOGRAM | e | 6:16 AM | disease of tlingit & haida | procedure are in the | | | | PDT | artery of tling[place] & haida | results section. | | | | | heart with stable | | | | | | angina pectoris | | | | | | ([facility]) | | + +--------+ + [...] PROCEDURE:April 13 | | 2018PERFORMING PHYSICIAN:Georges Urrutia M.D.First Press Operator, MedicineDepartment of | | CardiologyFELLOW:Vito Jay M.D.Fellow [...] anginal | | treatment.COMPLICATIONS:None.ACCESS:1. Right radial artery, 5-Citizen [place] sheath.2. Right | | femoral artery, 6-[place]izen [place] sheath.ESTIMATED BLOOD LOSS:10 mL.MEDICATIONS:1. Clopidogrel | | 600 mg p.o.2. Fentanyl 200 mcg IV.3. Heparin 9000 units IV.4. Midazolam 4 mg IV.5. | | Nitroglycerin 200 mcg IA.6. Verapamil 2 mg IA.SEDATION:I personally supervised the | | administration of conscious sedation to the patient for a total of 78 | | minutes.FLUOROSCOPY TIME:15 minutes.FLUOROSCOPY DAP:9669 [id number]:Omnipaque 125 | | mL.PROCEDURAL NARRATIVE:A full PARQ conversation was had and written informed consent | | was obtained. Patient was brought to the cardiac microbiology lab technician in a fasting state. Right | | [...] a Wholey | | wire with a 5-Citizen Of [place] JR4 catheter past the loop and it [...] to advance any other catheters, including a 4-[place]izen [place] JL4 catheter, beyond the | | area with the loop. After a few more attempts, we decided to swtich to femoral access. | | Femoral access was obtained after using anatomic and fluoroscopic landmarks to identify | | the appropriate puncture site. 1% lidocaine was injected locally and a modified | | Seldinger technique was used to place a 5-[place]izen [place] sheath in the right femoral artery. A | | 4-Citizen [place] JL4 catheter was then advanced to the [...] and distal right coronary artery fill via wfib-hj-wqwsb | | collaterals and are not fully opacified on this study. The proximal cap of the right | | coronary occlusion is ambiguous.PERCUTANEOUS CORONARY INTERVENTION:After ensuring | | therapeutic ACT, we elected to move forward with percutaneous coronary intervention to | | the diagonal branch. The 4-[place]izen [place] JL4 catheter was exchanged over a wire for a 6-[place]izen [place] | | XB3 guide catheter, which was advanced into the ascending aorta, aspirated and flushed | | and used to selectively engage the left main. An [employer] guidewire was then | | advanced into [...] seconds at 14 | | atmospheres. An [employer] elim ira IVUS catheter was then advanced across the [...] mid right coronary artery with | | pvjl-la-tmdob collateral filling of the right coronary artery [...] in the generation of this report.Stan Chung, [facility]/MODLDD: | | 04/13/2018 11:02:09DT: 04/13/2018 11:55:11Job #: [id number] | |After ensuring therapeutic ACT, we elected to move forward with percutaneous coronary inter vention to the diagonal branch. The 4-[place]izen [place] JL4 catheter was exchanged over a wire for a 6 -Citizen [place] XB3 guide catheter, | |which was advanced into the ascending aorta, aspirated and flushed and used to selectively engage the left main. An [employer] guidewire was then advanced into the distal [...] for 48 seconds at 14 atmospheres. An [employer] elim ira IVUS catheter was then a dvanced across [...] Chronically occluded mid right coronary artery with zsmf-tz-ljwbq collateral filling of the right coronary artery [...] |ACR/MODL | | | | | | /[id number] | + + 12 LEAD ECG (04/13/2018 [...] + | [facility] DEPT OF | [address] | [place], [place] | | | CARDIOLOGY | [address] | [address] | | + + + + + [...] ROXY | [address] | [place], [place] | | | MATI [facility] | [facility] | [address] | | | TESTS | | | [...] | | | LABORATORY | | | PALESTINIAN | | | SERVICES, | | | [...] the MDRD equation recommended by the | [facility] | | National Kidney Disease Education Program. [...] [facility] | [address] [facility] | [place] [address] | | | VITALY RANKIN | KIMO [...] FAIZANYAAKOVJOHANNA | [address] | [place], [place] | | | KASHIF [facility] | [facility] | [address] | | | TESTS | | | | + + + + + INTRAPROCEDURE IMAGING (04/13/2018 7:01 AM PDT) + + | Specimen | + + | | + + + + + | Narrative | Performed At | + + + | See admission or procedure notes for details of any intraprocedure | | | images obtained. | | + + + WRITING MANAGER INT CORONARY ANGIOGRAM (04/13/2018 6:16 AM PDT) + + | Specimen | + + | | + + + + + | Narrative | Performed At | + + + | Procedure performed in the Cardiac Transcript Evaluator. See procedure notes | | | for details. | | + + + CARDIOLOGY (04/13/2018 12:00 AM PDT) + + + | Narrative | Performed At | + + + | | | + + + documented in this encounter Visit Diagnoses + + | Diagnosis | + + | Coronary artery disease of tlingit & haida artery of tling[place] & ha[place] heart with stable angina pectoris | | [...]
--- OUTSIDE RECORDS SUMMARY | ~2019-07-14 | XMS | Encounter Summary ---
Demographics + + + | Address | [address] | | | [place] [address] | + + + | Home Phone [...] + + | Author | [place] [employer] [facility] | + + + | Organization | [facility] | + + + | Address | Unknown | + + + | Phone | Unavailable | + + + Support + + +---------+ + | Name | Relationship | Address | Phone | + + +---------+ + | Alexandria Dixon | ECON | Unknown | | + + +---------+ + Care Team Providers + +------+ + | Care Geospatial Scientist Name | Role | Phone | [...] as of this encounter Progress Notes Interface, Cigar Packing Examiner In - 12/17/2005 2:06 AM PDT [id number] TOREY TRIVEDI V Clinic Date: 10/01/2005 Clinic: [...] as instructed. Jaylin Hou P.A.-C. / GABY [id number] / [id number] / [id number] / [id number] Electronically signed by Jaylin Hou 12-16-2005 12:32:00 [...] Rd | | | | | | [place], [place] | | | | | | [address] | | | | | | [phone] | | | | | | | | +--------+---------+ + + + documented as of this encounter Visit Diagnoses Not on filedocumented in this encounter"
--- OUTSIDE RECORDS SUMMARY | ~2019-07-14 | XMS | Encounter Summary ---
Demographics + + + | Address | [address] | | | [place] [address] | + + + | Home Phone [...] + + + | Author | [place] [employer] [facility] | + + + | Organization | [facility] | [...] Team Providers + +------+ + | Care After School Coordinator Name | Role | Phone | + +------+ + PCP | Unavailable | + +------+ + Encounter Details +--------+ + + + + | Date | Type | Department | Care Team | Description | +--------+ + + + + | 07/22/ | MyChart | Neurosurgery at | Donnie, | Chela | | 2016 | Encounter | [facility] [address] | Cathie | | | | | [place] Mailcode: CH8N | DNP,RECOVERY COORDINATOR,[place] [address] | | | | | [facility] | [address] [place], | | | | | and Healing, | [place] [address] | | | | | [place] [address] | [phone] | | | | | [place], [place] | | | | | | [address] | | | | | | [phone] | | | +--------+ + + + [...] Rd | | | | | | [place], [place] | | | | | | [address] | | | | | | [phone] | | | | | | | | +--------+---------+ + + + documented as of this encounter Visit Diagnoses Not on filedocumented in this encounter"
--- OUTSIDE RECORDS SUMMARY | ~2019-07-14 | XMS | Encounter Summary ---
Demographics + + + | Address | [address] | | | [place] [address] | + + + | Home Phone [...] + + | Author | [place] [employer] [facility] | + + + | Organization | [facility] [...] Team Providers + +------+ + | Care Fairing Worker Name | Role | Phone | [...] | | | | | adenoma | DNP,REFINERY OPERATOR VISBREAKING,[place] | [address] | | | | | ([facility]) | [address] | Shravan Parkinson | | | | | Growth | Ave | [place], | | | | | hormone | [place], [place] | [place] [address] | | | | | deficiency | [address] | Phone: | | | | | ([facility]) | Phone: | [phone] | | | | | Diabetes | [phone] | Fax: | | | | | insipidus | Fax: | [phone] | | | | | ([facility]) | [phone] | | | | | | Hypogonadism | | | | | | | male | | | | | | | Hypothyroid | | | | | | | 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 | | | | | | | y ([facility]) | | | | | | | [...] | | | | | | | DNP,REFINERY OPERATOR VISBREAKING,[place] | | | | | | | [address] | | | | | | | Ave | | | | | | | [place], [place] | | | | | | | [address] | | | | | | | Phone: | | | | | | | [phone] | | | | | | | Fax: | | | | | | | [phone] | +--------+--------+ + + + + Encounter Details +--------+---------+ + + + | Date | Type | Department | Care Team | Description | +--------+---------+ + + + | 12/04/ | Office | Neurosurgery at | Donnie, | Pituitary adenoma | | 2011 | Visit | [facility] [address] | Cathie, | ([facility]); 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Ave Mailcode: CH8N | DNP,REFINERY OPERATOR VISBREAKING,[place] [address] | hormone deficiency | | | | [facility] | [address] [place], | ([facility]); 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, | [place] [address] | insipidus ([facility]); | | | | [address] | [phone] | Hypogonadism male; | | | | [place], [place] | | Hypothyroid; Adrenal | | | | [address] | | insufficiency ([facility]) | | | | [phone] | | | +--------+---------+ + + + [...] in this encounter Progress Notes Cathie Fields, DNP,REFINERY OPERATOR VISBREAKING,[place] - 12/05/2011 2:12 PM PDTReason for visit. [...] a cardiac stent place 02/2011 after an PR. At this visit; Symptoms and Complaints: Facial [...] of thoracic pain. 5. MRI 04/21 with SHREDDING MACHINE OPERATOR, RM labs I spent 30 minutes lekz-nw-erag time with this patient of which over 50% was spent in medic ally indicated counseling and education pertaining to the issues discussed above. CATHIE FIELDS DNP, TOMER, BECCA [facility] [address] [facility] [address] documented in this encounter Plan of Treatment +--------+---------+ + + + | Date | Type | Specialty | Care Team | Description | +--------+---------+ + + + | 08/15/ | Office | Cardiology | Zuleika Hernandez, | | | 2019 | Visit | | [address] | | | | | | [address] | | | | | | [place], [place] | | | | | | [address] | | | | | | [phone] | | | | | | | [...] [facility] | REGIONAL | | [place] [address] | LABORATORY | | [place] [address] | | + + + + + + + + | Performing | Address | City/State/Zipcode | Phone Number | | Organization | | | | + + + + + | [facility] | [address] | [place] [address] | | | LABORATORY | | | [...] Way Lab) [place] | [place] | | [facility] [address] | REGIONAL | | [place] [address] | LABORATORY | + + + + + + + + | Performing | Address | City/State/Zipcode | Phone Number | | Organization | | | | + + + + + | [facility] | [address] | [place] [address] | | | LABORATORY | | | [...] + + + | [facility] ([facility]) [place] | [place] | | [place] [address] | REGIONAL | | [place] [address] | LABORATORY | + + + + + + + + | Performing | Address | City/State/Zipcode | Phone Number | | Organization | | | | + + + + + | [facility] | [address] | [place] [address] | | | LABORATORY | | | [...] + + + | [facility] ([facility]) [place] | [place] | | [place] [address] | REGIONAL | | [place] [address] | LABORATORY | + + + + + + + + | Performing | Address | City/State/Zipcode | Phone Number | | Organization | | | | + + + + + | [facility] | [address] | [place] [address] | | | LABORATORY | | | [...] At | + + + | [facility] ([address] [facility]) Reggie | REGGIE | | [place] [address] | REGIONAL | | [place] [address] | LABORATORY | + + + + + + + + | Performing | Address | City/State/Zipcode | Phone Number | | Organization | | | | + + + + + | [facility] | [address] | [place] [address] | | | LABORATORY | | | [...] | | | DEPARTMENT | | | S[place]GALESE | | | OF | | | [...] | + + + + + | [facility] | [address] | [place] [address] | | | PATHOLOGY | [address] [...]
--- OUTSIDE RECORDS SUMMARY | ~2019-07-14 | XMS | Encounter Summary ---
Demographics + + + | Address | [address] [facility] | | | [place] [address] | + + + | Home Phone [...] + + | Author | [place] [employer] [facility] | + + + | Organization | [facility] [...] Providers + +------+ + | Care Automotive Electrician Helper Name | Role | Phone | [...] [address] | | | | | [place] at | [facility] | | | | | [address] | [place], [place] | | | | | [address] | [address] | | | | | [place], [place] | [phone] | | | | | [address] | | | | | | [phone] | | | +--------+ + + + [...] Rd | | | | | | [place], [place] | | | | | | [address] | | | | | | [phone] | | | | | | | | +--------+---------+ + + + documented as of this encounter Visit Diagnoses Not on filedocumented in this encounter"
--- OUTSIDE RECORDS SUMMARY | ~2019-07-14 | XMS | Encounter Summary ---
Demographics + + + | Address | [address] | | | [place] [address] | + + + | Home Phone [...] + + + | Author | [place] [employer] [facility] | + + + | Organization | [facility] [...] Team Providers + +------+ + | Care Guide Changer Name | Role | Phone | + [...] | | | | | leaflet | DNP,GAME FARM SUPERVISOR,[place] | MD [address] | | | | | abnormality | [address] | [address] | | | | | Procedures | Ave | [place] | | | | | CONSULT TO | [place], [place] | [place], [place] | | | | | SURGERY - | [address] | [address] | | | | | CARDIOTHORAC | Phone: | Phone: | | | | | IC | [phone] | [phone] | | | | | | Fax: | Fax: | | | | | | [phone] | [phone] | + +--------+ + + + + [...] of | | | | [address] [facility] | [address] | heart (Primary Dx); | | | | Rd Mailcode: L[address] | [place], [place] | CAD in confederated salish artery | | | | Physician's | [address] | | | | | Cristiana [place], | [phone] | | | | | [place] [address] | | | | | | [phone] | | | +--------+---------+ + + + [...] 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 Amairani Ulloa is a 36 year old male c h/o pituitary adenoma s/p resection on predniso ne, thoracic spinal cyst and chronic upper back/neck pain, HI age 31 s/p stent to L Cx on ef fient and PROOF TESTER of RCA, Type II DM on metformin, MALLIKA c CPAP, HTN, dyslipidemia, and obesity Jorge dy mass index is 40.91 kg/(m^2). who presents to [facility] CT Surgery clinic to discuss [...] of the CP he had with his HI but "not as sharp". He experiences this [...] ages 12, 4, 2, 1. 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 Risk Factors: Hypertensive Heart Disease: Yes Dyslipidemia: Yes Family History of Premature CAD: unknown Prior Cardiac Events:HI Heart Failure Type & NYHA Class: No [...] TR to estimate PAP. Coronary angiogram 11/2015: PROOF TESTER RCA Patent L Cx stent Assessment: Mr. 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 We [...] - this can be done either in [place] or here at [facility] per his preference. We have him scheduled for resection of mitral valve mass +/- MVR and CABG x 1+ (SVG to RCA, possibly more) on Jul 08 with [facility] visit on Jul 07. If he wants angiogram at [facility] er than [facility], we will schedule that for Jul 07. PARQ and consent completed c Blaise Aguilar MD. BRETT Beckford CARDIOTHORACIC SURGERY AT [facility] [address] [facility] Mailcode: [address] [place] [address] Koffi Goins MD - 06/19/2016 [...] on prasugrel since then. He has a PROOF TESTER of his RCA. He recently has developed [...] Rd | | | | | | [place], [place] | | | | | | [address] | | | | | | [phone] | | | | | | | [...] heart | + + | CAD in confederated sal[place] artery Coronary atherosclerosis of confederated salish coronary artery | + + documented in this encounter
--- OUTSIDE RECORDS SUMMARY | ~2019-07-14 | XMS | Encounter Summary ---
Demographics + + + | Address | [address] | | | [place] [address] | + + + | Home Phone [...] + + + | Author | [place] [employer] [facility] | + + + | Organization | [facility] [...] Providers + +------+ + | Care Rubber Goods Tester Name | Role | Phone | [...] adenoma | | 2010 | Visit | [facility] [address] | [address] | ([facility]); 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Ave Mailcode: CH8N | [address] | hormone deficiency | | | | [facility] | [place], [place] | (HCC); 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, | [address] | insipidus (HCC); | | | | [address] | [phone] | Hypogonadism male; | | | | [place], [place] | | Hypothyroid; Adrenal | | | | [address] | | insufficiency (HCC) | | | | [phone] | | | +--------+---------+ + + + [...] in Packet, 1 Packet by Topical ro [place] once daily., Disp: 30 Packet, Rfl: 5 triamcinolone 55 mcg Nasal Aerosol, [place], Instill 2 Sprays into each nostril once [...] at bedtime and peak values in the guest service manager before waking Use the lowest possible dose [...] sense of well-being, as determined by the [place] [facility]. Two other plac ida-controlled, double-blinded [...] change in DDAVp anticiapted. 5. MRI 04/21with MAGNETIC LOCATER, RM labs Discussed at length follow-up of [...] and follow up. I spent 40 minutes ufmc-zm-kava time with this patient of which over [...] | 2020 | Visit | | [address] [facility] | | | | | | [address] | | | | | | [place], [place] | | | | | | [address] | | | | | | [phone] | | | | | | | [...] [facility] ([address] [facility]) | | | [facility] [place] [address] [facility] | | | [place] [address] | | + + + + + + + + | Performing | Address | City/State/Zipcode | Phone Number | | Organization | | | | + + + + + | [facility] | [address] | [place] [address] | | | LABORATORY | | | [...] | | | DEPARTMENT | | | [place] | | | OF | | | [...] [place] | [address] | [place] [address] | | | PATHOLOGY | [address] [...] At | + + + | [facility] ([address] [facility]) [facility] | [place] | | [place] [address] [address] [facility] | REGIONAL | | [place] [address] | LABORATORY | + + + + + + + + | Performing | Address | City/State/Zipcode | Phone Number | | Organization | | | | + + + + + | [facility] | [address] | [place] [address] | | | LABORATORY | | | [...] [place] | [place] | | [place] [address] | REGIONAL | | [place] [address] | LABORATORY | + + + + + + + + | Performing | Address | City/State/Zipcode | Phone Number | | Organization | | | | + + + + + | [facility] | [address] | [place] [address] | | | LABORATORY | | | [...] [place] | [place] | | [place] [address] [facility] | REGIONAL | | [place] [address] | LABORATORY | + + + + + + + + | Performing | Address | City/State/Zipcode | Phone Number | | Organization | | | | + + + + + | [facility] | [address] | [place] [address] | | | LABORATORY | | | [...] [place] | [place] | | [place] [address] [address] [facility] [address] | REGIONAL | | [place] [address] | LABORATORY | + + + + + + + + | Performing | Address | City/State/Zipcode | Phone Number | | Organization | | | | + + + + + | [facility] | [address] | [place] [address] | | | LABORATORY | | | [...] Way Lab) | [facility] | | [facility] [address] | REGIONAL | | [place] [address] | LABORATORY | + + + + + + + + | Performing | Address | City/State/Zipcode | Phone Number | | Organization | | | | + + + + + | [facility] | [address] | [place] [address] | | | LABORATORY | | | [...]
--- OUTSIDE RECORDS SUMMARY | ~2019-07-14 | XMS | Encounter Summary ---
Demographics + + + | Address | [address] | | | [place] [address] | + + + | Home Phone [...] + + + | Author | [place] [employer] [facility] | + + + | Organization | [facility] Science [facility] | [...] Team Providers + +------+ + | Care Compotype Operator Name | Role | Phone | [...] | | 2019 | Encounter | [address] | Cathie, | appointment | | | | Ave Mailcode: CH8N | DNP,LATIN DANCER,[place] [address] | | | | | [facility] | [address], | | | | | and [place], | [place] [address] | | | | | Building 1 | [phone] | | | | | [place], [place] | | | | | | [address] | | | | | | [phone] | | | +--------+ + + + [...] | | | | | | [place], [place] | | | | | | [address] | | | | | | [phone] | | | | | | | | +--------+---------+ + + + documented as of this encounter Visit Diagnoses Not on filedocumented in this encounter"
--- OUTSIDE RECORDS SUMMARY | ~2019-07-14 | XMS | Encounter Summary ---
Demographics + + + | Address | [address] | | | [place] [address] | + + + | Home Phone [...] + + + | Author | [place] [email or web address] [facility] | + + + | Organization | [facility] | + [...] Team Providers + +------+ + | Care Braider Operator Name | Role | Phone | [...] | | Metabolism | neoplasm of | [facility] | DNP,DOG FOOD SHREDDER OPERATOR,[place] | | | | | pituitary | PHYSICIAN | [address] | | | | | gland and | MED GROUP | Ave | | | | | craniopharyn | CEDRIC | [place], [place] | | | | | geal duct | MEDICAL | [address] | | | | | (pouch) | COMPLEX [address] | Phone: | | | | | (HCC) | [facility] | [phone] | | | | | Procedures | CLARISA MCKENNA, | Fax: | | | | | ESTAB | [place] [address] | [phone] | | | | | PATIENT | Phone: | | | | | | LEVEL 5 [place] | [phone] | | | | | | MRI BRAIN | Fax: | | | | | | COMBO f/up | [phone] | | | | | | & MRI | | | +--------+--------+ + + + + Encounter Details +--------+---------+ + + + | Date | Type | Department | Care Team | Description | +--------+---------+ + + + | 12/08/ | Office | Neurosurgery at | Donnie, | Pituitary Adenoma | | 2006 | Visit | [facility] [address] | Cathie, | ([facility]); Hypogonadism | | | | Ave Mailcode: CH8N | DNP,DOG FOOD SHREDDER OPERATOR,[place] [address] | Male; Growth Hormone | | | | [facility] | [address] [place], | Deficiency ([facility]); | | | | and Healing, | [place] [address] | Hypothyroid; | | | | Building | [phone] | Diabetes Insipidus | | | | Floor [place], [place] | | (HCC); Adrenal | | | | [address]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 ([facility]); | | | | [phone] | | Benign Neoplasm of | | | | | | Pituitary Gland and | | | | | | 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 Amairani Tyler returns to [facility] December 08, 2006 for followup approx one [...] phase of the brachial reflex. LABS: BMP, POLITICAL SCIENCE RESEARCH ASSISTANT, IGF-1, TSH, Free T4, LH, FSH, Testosterone, [...] changes in medication dose. CATHIE FIELDS NP [facility] [address] [place] [facility] [address] I spent 40 mins in evaluation of [...] | 2020 | Visit | | [address] [facility] | | | | | | [address] | | | | | | [place], [place] | | | | | | [address] | | | | | | [phone] | | | | | | | [...] Performed At | + + + | [id number] Estimated GFR > 60 mL/min/1.73 sq m if non- | [facility] | | [id number] Estimated GFR > 60 mL/min/1.73 sq m [...] + + + + | [facility] | [address] | [place] [address] | | | PATHOLOGY | [address] | | | + + + + + | [facility] | [address] | [place] [address] | | | PATHOLOGY | [address] [...] ng/ml | | | | | by [facility] | | | | | | Regional Lab[facility]. | | | | + + + + + + + + | Specimen | + + | | + + + + + + + | Performing | Address | City/State/Zipcode | Phone Number | | Organization | | | | + + + + + | [facility] | [address] | [place] [address] | | | LABORATORY | | | [...] | | | SERUM | performed by [facility] | | | | | | [facility] | | | | | | Laboratories. | | | | + + + + + + + + | Specimen | + + | | + + + + + + + | Performing | Address | City/State/Zipcode | Phone Number | | Organization | | | | + + + + + | [facility] | [address] | [place] [address] | | | LABORATORY | | | [...] + + + | [facility] | [address] | [place] [address] | | | LABORATORY | | | [...] | + + + + + | [facility] | [address] | [place] [address] | | | LABORATORY | | | [...]
--- OUTSIDE RECORDS SUMMARY | ~2019-07-14 | XMS | Encounter Summary ---
Demographics + + + | Address | [address] | | | [place] [address] | + + + | Home Phone [...] + + + | Author | [place] [employer] [facility] | + + + | Organization | Replaced By [facility] Science [facility] [...] Team Providers + +------+ + | Care Physician Assistant Psychiatry Name | Role | Phone | + [...] Refill Request | | 2010 | | [facility] [address] | Cathie, | | | | | [place] Mailcode: CH8N | DNP,SHIPPING CHECKER,[place] [address] | | | | | [facility] | [address] [place], | | | | | and [facility], | [place] [address] | | | | | Building 1 | [phone] | | | | | [place], [place] | | | | | | [address] | | | | | | [phone] | | | +--------+--------+ + + + [...] | | 2019 | Visit | | [address] | | | | | | [address] | | | | | | [place], [place] | | | | | | [address] | | | | | | [phone] | | | | | | | | +--------+---------+ + + + documented as of this encounter Visit Diagnoses Not on filedocumented in this encounter"
--- OUTSIDE RECORDS SUMMARY | ~2019-07-14 | XMS | Encounter Summary ---
Demographics + + + | Address | [address] | | | [place] [address] | + + + | Home Phone [...] + + + | Author | [place] [employer] [facility] | + + + | Organization | [facility] & Science [facility] [...] Providers + +------+ + | Care Boat Laborer Name | Role | Phone | + +------+ + | Jinny Bergeron MD | PCP | | + +------+ + Encounter Details +--------+ + + + + | Date | Type | Department | Care Team | Description | +--------+ + + + + | 03/07/ | Documentati | Neurosurgery at | Donnie, | | | 2015 | on | [address] | Cathie | | | | | [place] Mailcode: CH8N | DNP,CLOTH BOIL OFF MACHINE OPERATOR,[place] [address] | | | | | [facility] | [address] [place], | | | | | and [place], | [place] [address] | | | | | [place] [address] | [phone] | | | | | [place], [place] | | | | | | [address] | | | | | | [phone] | | | +--------+ + + + [...] Rd | | | | | | [place], [place] | | | | | | [address] | | | | | | [phone] | | | | | | | | +--------+---------+ + + + documented as of this encounter Visit Diagnoses Not on filedocumented in this encounter"
--- OUTSIDE RECORDS SUMMARY | ~2019-07-14 | XMS | Encounter Summary ---
Demographics + + + | Address | [address] | | | [place] [address] | + + + | Home Phone [...] + + + | Author | [place] [employer] [facility] | + + + | Organization | [facility] [...] Team Providers + +------+ + | Care Physiologist Name | Role | Phone | + [...] | | 2012 | Encounter | [facility] [address] | Cathie | | | | | [place] Mailcode: CH8N | DNP,BAGGER MEAT,[place] [address] | | | | | [facility] | [address] [place], | | | | | and [place], | [place] [address] | | | | | [facility] 1 | [phone] | | | | | [place], [place] | | | | | | [address] | | | | | | [phone] | | | +--------+ + + + [...] Rd | | | | | | [place], [place] | | | | | | [address] | | | | | | [phone] | | | | | | | | +--------+---------+ + + + documented as of this encounter Visit Diagnoses Not on filedocumented in this encounter"
--- OUTSIDE RECORDS SUMMARY | ~2019-07-14 | XMS | Encounter Summary ---
Demographics + + + | Address | [address] | | | [place] [address] | + + + | Home Phone [...] + + + | Author | [place] [employer] [facility] | + + + | Organization | [facility] & [facility] | + + + | Address | Unknown | + + + | Phone | Unavailable | + + + Support + + +---------+ + | Name | Relationship | Address | Phone | + + +---------+ + | Alexandria Dixon | ECON | Unknown | | + + +---------+ + Care Team Providers + +------+ + | Care Automotive Glass Specialist Name | Role | Phone | [...] Refill Request | | 2015 | | [facility] [address] | Cathie, | | | | | [place] Mailcode: CH8N | DNP,CRITICAL POWER TECHNICIAN,[place] [address] | | | | | [facility] | [address] [place], | | | | | and Healing, | [place] [address] | | | | | Building 1 | [phone] | | | | | [place], [place] | | | | | | [address] | | | | | | [phone] | | | +--------+--------+ + + + [...] Rd | | | | | | [place], [place] | | | | | | [address] | | | | | | [phone] | | | | | | | | +--------+---------+ + + + documented as of this encounter Visit Diagnoses Not on filedocumented in this encounter"
--- OUTSIDE RECORDS SUMMARY | ~2019-07-14 | XMS | Encounter Summary ---
Demographics + + + | Address | [address] | | | [place] [address] | + + + | Home Phone [...] + + + | Author | [place] [employer] [facility] | + + + | Organization | [facility] [...] Providers + +------+ + | Care Design Engineer Name | Role | Phone [...] | | | | Abdoulaye Mailcode:OP14B | DNP,PHYSICAL SECURITY SPECIALIST,[place] [address] | | | | | [place] | [address] [place], | | | | | [place], [place] | [place] [address] | | | | | [address] | [phone] | | | | | [phone] | | | +--------+ + + + [...] | | | | | | [place], [place] | | | | | | [address] | | | | | | [phone] | | | | | | | [...]
--- OUTSIDE RECORDS SUMMARY | ~2019-07-14 | XMS | Encounter Summary ---
Demographics + + + | Address | [address] | | | [place] [address] | + + + | Home Phone [...] + + + | Author | [place] [employer] [facility] | + + + | Organization | [facility] [...] | | | | MRI BRAIN | [place], [place] | [address] | | | | | WWO CONTRAST | [address] | [place] | | | | | | Phone: | Research | | | | | | [phone] | [place] | | | | | | Fax: | [place], [place] | | | | | | [phone] | [address] | | | | | | | Phone: | | | | | | | [phone] | | | | | | | Fax: | | | | | | | [phone] | +--------+--------+ + + + + Encounter Details +--------+ + + + + | Date | Type | Department | Care Team | Description | +--------+ + + + + | 02/18/ | Editor | Neurosurgery at | Jaclyn Crawford, | Pituitary adenoma | | 2009 | | [facility] [address] | [address] | (HCC) (Primary Dx) | | | | Ave Mailcode: CH8N | [address] | | | | | [facility] | [place], [place] | | | | | and Healing, | [address] | | | | | Building 1 | [phone] | | | | | [place], [place] | | | | | | [address] | | | | | | [phone] | | | +--------+ + + + [...] Rd | | | | | | [place], [place] | | | | | | [address] | | | | | | [phone] | | | | | | | [...] PRINCE | | | | | | SEHELASTATUS FINAL / | | | | | [...]
--- OUTSIDE RECORDS SUMMARY | ~2019-07-14 | XMS | Encounter Summary ---
Demographics + + + | Address | [address] | | | [place] [address] | + + + | Home Phone [...] + + + | Author | [place] [employer] [facility] | + + + | Organization | [facility] | [...] Team Providers + +------+ + | Care Cigarette Making Machine Catcher Name | Role | Phone [...] | 2011 | Encounter | Lab at [facility] [address] | | | | | | [address] Mailcode: | | | | | | [address] [facility] | | | | | | Health and Healing, | | | | | | [place] [address], [facility] | | | | | | Floor [place], [place] | | | | | | [address] | | | | | | [phone] | | | +--------+ + + + [...] Rd | | | | | | [place], [place] | | | | | | [address] | | | | | | [phone] | | | | | | | [...]
--- OUTSIDE RECORDS SUMMARY | ~2019-07-14 | XMS | Encounter Summary ---
Demographics + + + | Address | [address] | | | [place] [address] | + + + | Home Phone [...] + + | Author | [place] [employer] Science [facility] | + + + | Organization | [facility] & Science [facility] [...] Team Providers + +------+ + | Care Teacher Kindergarten Name | Role | Phone | + [...] | | | | | adenoma | DNP,CLEANING MANAGER,[place] | [address] | | | | | (HCC) | [address] | Rd | | | | | Growth | Ave | Mailcode: | | | | | hormone | [place], [place] | [address] | | | | | deficiency | [address] | Luis | | | | | ([facility]) | Phone: | Research | | | | | Diabetes | [phone] | Center | | | | | insipidus | Fax: | [place], [place] | | | | | ([facility]) | [phone] | [address] | | | | | Hypogonadism | | Phone: | | | | | male | | [phone] | | | | | Hypothyroid | | Fax: | | | | | Adrenal | | [phone] | | | | | insufficienc | | | | | | | y ([facility]) | | | | | [...] | 2008 | Encounter | Lab at [facility] [address] | | | | | | [address] [place] Mailcode: | | | | | | CH[address]G [place] [facility] | | | | | | Health and Healing, | | | | | | Building 1, [facility] | | | | | | Floor [place], [place] | | | | | | [address] | | | | | | [phone] | | | +--------+ + + + [...] [place] | | | | | | [address] | | | | | | [phone] | | | | | | | [...] | MR BRAIN | Med Rec No: [id number] | | | | | WWO | Name: | | | | | CONTRAST | FAROOQ LEMA | | | | | | Birthday: 1980 | | | | | | Sex: M | | | | | | Alias:Patient Location: | | | | | | [id number]: Outpatient | | | | | | ActiveOrdering | | | | | | Physician: DONNIE, | | | | | | CATHIE Monroy NChinoMBR-+ | | | | | | MRI BRAIN W/WO CONTRAST | | | | | | completed on 04/03/2009 | | | | | | 8:55 AMAccession # | | | | | | [id number]:MR OF THE | | | | | [...]
--- OUTSIDE RECORDS SUMMARY | ~2019-07-14 | XMS | Encounter Summary ---
Demographics + + + | Address | [address] | | | [place] [address] | + + + | Home Phone [...] + + + | Author | [place] [employer] [facility] | + + + | Organization | [facility] [...] Team Providers + +------+ + | Care Job Coaching Name | Role | Phone | + [...] week? | | 2011 | Encounter | [facility] [address] | [place], [place] | | | | | Ros[place] Mailcode: JUAN | [address] | | | | | [facility] | | | | | | and Healing, | | | | | | Building 1 | | | | | | [place], [place] | | | | | | [address] | | | | | | [phone] | | | +--------+ + + + [...] Rd | | | | | | [place], [place] | | | | | | [address] | | | | | | [phone] | | | | | | | | +--------+---------+ + + + documented as of this encounter Visit Diagnoses Not on filedocumented in this encounter"
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
--- OUTSIDE RECORDS SUMMARY | ~2019-07-14 | XMS | Encounter Summary ---
Demographics + + + | Address | [address] | | | [place] [address] | + + + | Home Phone [...] + + + | Author | [place] [employer] [facility] [...] Team Providers + +------+ + | Care Auto Transmission Mechanic Name | Role | Phone | [...] | | 2016 | Encounter | [facility] [address] | Cathie | | | | | [place] Mailcode: CH8N | DNP,BOAT CAMP OPERATOR,[place] [address] | | | | | [facility] | [address] [place], | | | | | and [place], | [place] [address] | | | | | [facility] 1 | [phone] | | | | | [place], [place] | | | | | | [address] | | | | | | [phone] | | | +--------+ + + + [...] [place] | | | | | | [address] | | | | | | [phone] | | | | | | | | +--------+---------+ + + + documented as of this encounter Visit Diagnoses Not on filedocumented in this encounter"
--- OUTSIDE RECORDS SUMMARY | ~2019-07-14 | XMS | Encounter Summary ---
Demographics + + + | Address | [address] | | | [place] [address] | + + + | Home Phone [...] + + + | Author | [place] [employer] [facility] | + + + | Organization | [facility] Science [facility] [...] Team Providers + +------+ + | Care Oven Baker Name | Role | Phone | + [...] [address] | | | | | [facility] | [place], [place] | | | | | and [place], | [address] | | | | | Building 1 | [phone] | | | | | [place], [place] | | | | | | [address] | | | | | | [phone] | | | +--------+--------+ + + + [...] | | 2019 | Visit | | [address] | | | | | | [address] | | | | | | [place], [place] | | | | | | [address] | | | | | | [phone] | | | | | | | | +--------+---------+ + + + documented as of this encounter Visit Diagnoses Not on filedocumented in this encounter"
--- OUTSIDE RECORDS SUMMARY | ~2019-07-14 | XMS | Encounter Summary ---
Demographics + + + | Address | [address] | | | [place] [address] | + + + | Home Phone [...] + + + | Author | [place] [employer] [facility] | + + + | Organization | [facility] [...] Team Providers + +------+ + | Care District Representative Name | Role | Phone | [...] Pharmacy | | | | | | [address] | | | | | | [place], | | | | | | [place] [address] | | | | | | [phone] | | | +--------+ + + + [...] Rd | | | | | | [place], [place] | | | | | | [address] | | | | | | [phone] | | | | | | | | +--------+---------+ + + + documented as of this encounter Visit Diagnoses Not on filedocumented in this encounter"
--- OUTSIDE RECORDS SUMMARY | ~2019-07-14 | XMS | Encounter Summary ---
Demographics + + + | Address | [address] | | | [place] [address] | + + + | Home Phone [...] + + | Author | [place] [employer] [facility] | + + + | Organization | [facility] | + + + | Address | Unknown | + + + | Phone | Unavailable | + + + Support + + +---------+ + | Name | Relationship | Address | Phone | + + +---------+ + | Alexandria Dixon | ECON | Unknown | | + + +---------+ + Care Team Providers + +------+ + | Care Assigner Name | Role | Phone | + +------+ + | Priscilla Ramírez PA-C | PCP | | + +------+ + Encounter Details +--------+ + + + + | Date | Type | Department | Care Team | Description | +--------+ + + + + | 01/06/ | Procedure | Radiology/Imaging | | | | 2019 | Pass | Lab at [facility] [address] | | | | | | [address] Mailcode: | | | | | | CH[address] [facility] | | | | | | Health and Healing, | | | | | | Building [facility] | | | | | | Floor [place], [place] | | | | | | [address] | | | | | | [phone] | | | +--------+ + + + [...] Rd | | | | | | [place], [place] | | | | | | [address] | | | | | | [phone] | | | | | | | | +--------+---------+ + + + documented as of this encounter Visit Diagnoses Not on filedocumented in this encounter"
--- OUTSIDE RECORDS SUMMARY | ~2019-07-14 | XMS | Encounter Summary ---
Demographics + + + | Address | [address] | | | [place] [address] | + + + | Home Phone [...] + + + | Author | [place] [employer] [facility] | + + + | Organization | [facility] | + + + | Address | Unknown | + + + | Phone | Unavailable | + + + Support + + +---------+ + | Name | Relationship | Address | Phone | + + +---------+ + | Alexandria Dixon | ECON | Unknown | | + + +---------+ + Care Team Providers + +------+ + | Care Chef Broiler Or Fry Name | Role | Phone | + [...] PPV | | | | | | [address] | | | | | | [place] Mailcode: | | | | | | [address] Physician's | | | | | | [place], | | | | | | [place] [address] | | | | | | [phone] | | | +--------+ + + + [...] | | 2019 | Visit | | [address] | | | | | | [address] | | | | | | [place], [place] | | | | | | [address] | | | | | | [phone] | | | | | | | [...]
--- OUTSIDE RECORDS SUMMARY | ~2019-07-14 | XMS | Encounter Summary ---
Demographics + + + | Address | [address] | | | [place] [address] | + + + | Home Phone | | + + + | Preferred Language | Unknown | + + + | Marital Status | Single | + + + | Yazdanism Affiliation | Unknown | + + + | Race | Unknown | + + + | Ethnic Group | Unknown | + + + Author + + + | Author | [facility] | | | and [place] | + + + | Organization | [facility] | | | and [place] [...] Providers + +------+ + | Care Process Supervisor Name | Role | Phone | + +------+ + PCP | Unavailable | + +------+ + Encounter Details +--------+ + + + + | Date | Type | Department | Care Team | Description | +--------+ + + + + | 03/11/ | Hospital | [facility] | [place], | | | 2006 | Encounter | MED CTR EMERGENCY | Inder Galarza MD [address] | | | | | CENTER [address] | [address] [place] | | | | | [place], [place] | [place] [address] | | | | | [address] | [phone] | | | | | [phone] | | | +--------+ + + + [...] [place] | | | | | | [id number] | | | | | | | | +--------+---------+ + + + documented as of this encounter Visit Diagnoses Not on filedocumented in this encounter"
--- OUTSIDE RECORDS SUMMARY | ~2019-07-14 | XMS | Encounter Summary ---
Demographics + + + | Address | [address] | | | [place] [address] | + + + | Home Phone [...] + + + | Author | [place] [employer] [facility] | + + + | Organization | [facility] | + + + | Address | Unknown | + + + | Phone | Unavailable | + + + Support + + +---------+ + | Name | Relationship | Address | Phone | + + +---------+ + | Alexandria Dixon | ECON | Unknown | | + + +---------+ + Care Team Providers + +------+ + | Care Flight Teacher Name | Role | Phone | [...] Refill Request | | 2017 | | [facility] [address] | Cathie, | | | | | [place] Mailcode: CH8N | DNP,KNIFE GLAZER,[place] [address] | | | | | [facility] | [address] [place], | | | | | and Healing, | [place] [address] | | | | | Building 1 | [phone] | | | | | [place], [place] | | | | | | [address] | | | | | | [phone] | | | +--------+--------+ + + + [...] [place] | | | | | | [address] | | | | | | [phone] | | | | | | | [...]
--- OUTSIDE RECORDS SUMMARY | ~2019-07-14 | XMS | Encounter Summary ---
Demographics + + + | Address | [address] | | | [place] [address] | + + + | Home Phone | | + + + | Preferred Language | Unknown | + + + | Marital Status | Single | + + + | Judaism Affiliation | Unknown | + + + | Race | Unknown | + + + | Ethnic Group | Unknown | + + + Author + + + | Author | [facility] | | | and [place] | + + + | Organization | [facility] | [...] Team Providers + +------+ + | Care Bi Technical Lead Name | Role | Phone | + +------+ + PCP | Unavailable | + +------+ + Encounter Details +--------+ + + + + | Date | Type | Department | Care Team | Description | +--------+ + + + + | 03/17/ | [facility] | [facility] | | | | 2005 | Encounter | MED CTR XRAY [address] | | | | | | [address] | | | | | | [place] [address] | | | | | | [phone] | | | +--------+ + + + [...] 2020 | Visit | | [address] | | | | | | [place] | | | | | | [address] | | | | | | | | +--------+---------+ + + + documented as of this encounter Visit Diagnoses Not on filedocumented in this encounter"
--- OUTSIDE RECORDS SUMMARY | ~2019-07-14 | XMS | Encounter Summary ---
Demographics + + + | Address | [address] | | | [place] [address] | + + + | Home Phone [...] + + + | Author | [place] [employer] [facility] | + + + | Organization | [facility] [...] Providers + +------+ + | Care Travel Med Surg Rn Name | Role | Phone | + +------+ + | Jinny Bergeron MD | PCP | | + +------+ + Encounter Details +--------+ + + + + | Date | Type | Department | Care Team | Description | +--------+ + + + + | 11/20/ | [facility] Sexer | Neurosurgery at | Donnie, | | | 2016 | | [facility] [address] | Cathie | | | | | [place] Mailcode: CH8N | DNP,PROCESS DEVELOPMENT MANAGER,[place] [address] | | | | | [facility] | [address] [place], | | | | | and [place], | [place] [address] | | | | | [facility] | [phone] | | | | | Floor [place], [place] | | | | | | [address] | | | | | | [phone] | | | +--------+ + + + [...] Rd | | | | | | [place], [place] | | | | | | [address] | | | | | | [phone] | | | | | | | | +--------+---------+ + + + documented as of this encounter Visit Diagnoses Not on filedocumented in this encounter"
--- OUTSIDE RECORDS SUMMARY | ~2019-07-14 | XMS | Encounter Summary ---
Demographics + + + | Address | [address] | | | [place] [address] | + + + | Home Phone [...] + + + | Author | [place] [employer] [employer] [facility] | + + + | Organization | [facility] | + + + | Address | Unknown | + + + | Phone | Unavailable | + + + Support + + +---------+ + | Name | Relationship | Address | Phone | + + +---------+ + | Alexandria Dixon | ECON | Unknown | | + + +---------+ + Care Team Providers + +------+ + | Care Cytogeneticist Name | Role | Phone | + [...] Authorization | | 2017 | on | [facility] [address] | Cathie, | Request - Medication | | | | [place] Mailcode: CH8N | DNP,JACK OF ALL TRADES,[place] [address] | | | | | [facility] | [address] [place], | | | | | and [place], | [place] [address] | | | | | [place] [address] | [phone] | | | | | [place], [place] | | | | | | [address] | | | | | | [phone] | | | +--------+ + + + [...] | | 2020 | Visit | | [address] | | | | | | [address] | | | | | | [place] | | | | | | [address] | | | | | | [phone] | | | | | | | | +--------+---------+ + + + documented as of this encounter Visit Diagnoses Not on filedocumented in this encounter"
--- OUTSIDE RECORDS SUMMARY | ~2019-07-14 | XMS | Encounter Summary ---
Demographics + + + | Address | [address] | | | [place] [address] | + + + | Home Phone [...] + + + | Author | [place] [employer] [facility] | + + + | Organization | [facility] [...] Team Providers + +------+ + | Care Rolloff Truck Driver Name | Role | Phone [...] | Registratio | [facility] [place] | Cathie | | | | n | Abdoulaye Mailcode: [id number] | DNP,EXTRUDER TENDER,[place] [address] | | | | | [place], [place] | [address] [place], | | | | | [address] | [place] [address] | | | | | [phone] | [phone] | | | | | | | [...] [place] | | | | | | [address] | | | | | | [phone] | | | | | | | | +--------+---------+ + + + documented as of this encounter Visit Diagnoses Not on filedocumented in this encounter"
--- OUTSIDE RECORDS SUMMARY | ~2019-07-14 | XMS | Encounter Summary ---
Demographics + + + | Address | [address] | | | [place] [address] | + + + | Home Phone [...] + + + | Author | [place] [employer] [facility] | + + + | Organization | [facility] [...] Team Providers + +------+ + | Care Combination Technician Name | Role | Phone | [...] | adenoma | [address] | DNP,THERAPEUTIC ASSISTANT,[place] | | | | | (HCC) | [address] | [address] | | | | | Procedures | [place], | Ave | | | | | [place] | [place] [address] | [place], [place] | | | | | OFFICE/OUTPT | Phone: | [address] | | | | | | [phone] | Phone: | | | | | VISIT,EST,LE | Fax: | [phone] | | | | | [place] | [phone] | Fax: | | | | | OFFICE/OUTPT | | [phone] | | | | | | | | | | | | VISIT,EST,LE | | | | | | | [place] | | | | | | | OFFICE/OUTPT | | | | | | | | | | | | | | VISIT,EST,LE | | | | | | | [place] [place] | | | | | | | OFFICE/OUTPT | | | | | | | | | | | | | | VISIT,EST,LE | | | | | | | VL [place] | | | | | | | [...] adenoma | | 2012 | Visit | [facility] [address] | Cathie | ([facility]) (Primary Dx); | | | | [facility] Mailcode: CH8N | DNP,THERAPEUTIC ASSISTANT,[place] [address] | 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 [...] MS. At this visit; Symptoms and Complaints: weight [...] mths with labs TOMER MONTELONGO DNP, BECCA Reroller Hand [facility] [place] [address] [place] [address] documented in this encounter Plan of Treatment +--------+---------+ + + + | Date | Type | Specialty | Care Team | Description | +--------+---------+ + + + | 08/15/ | Office | Cardiology | Zuleika Hernandez, | | | 2020 | Visit | | [address] | | | | | | [address] | | | | | | [place], [place] | | | | | | [address] | | | | | | [phone] | | | | | | | [...] + | [facility] [facility] - | [address] | [place] [address] | | | [place] | | | [...] + | [facility] | [address] | [place] [address] | | | [place] | | | [...] + | [facility] | [address] | [place] [address] | | | [place] | | | [...] + + + + + | [place] [facility] - | [address] | [place] [address] | | | PLATTER | | | | + + + [...] + | [facility] [facility] - | [address] | [place] [address] | | | [place] | | | [...] | | | LABORATORY | | | GUYANESE | | | SERVICES, | | | [...] + + + + + | [facility] [facility] | [address] | [place] [address] | | | SERVICES, VITALY | KIMO [...]
--- OUTSIDE RECORDS SUMMARY | ~2019-07-14 | XMS | Encounter Summary ---
Demographics + + + | Address | [address] | | | [place] [address] | + + + | Home Phone [...] + + | Author | [place] [employer] [facility] | + + + | Organization | [facility] [...] Providers + +------+ + | Care Hand Tire Trimmer Name | Role | Phone | + +------+ + | Jinny Bergeron MD | PCP | | + +------+ + Encounter Details +--------+------+ + + + | Date | Type | Department | Care Team | Description | +--------+------+ + + + | 06/22/ | Lab | Laboratory at [facility] | | Pituitary adenoma | | 2014 | | [address] | | ([facility]); 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[place], [place]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 | | | | [address] | | ([facility]); Diabetes | | | | [phone] | | insipidus ([facility]); | | | | | [...] | | 2019 | Visit | | [address] | | | | | | [address] | | | | | | [place], [place] | | | | | | [address] | | | | | | [phone] | | | | | | | [...] | + + + + + | [facility] | [address] | [place] [address] | | | VITALY RANKIN | KIMO [...] [facility] | [address] | [place] [address] | | | SERVICES, SPECIAL | PARK [...] | + + + + + | [facility] | [address] | [place] [address] | | | SERVICES, SPECIAL | PARK [...] | + + + + + | [facility] | [address] [facility] | [place] [address] | | | SERVICES, CORE | PARK [...] | | | this test in the [facility] | | | | | | Laboratory Test | | | | | | Directory | | | | | | ([employer]etr[employer]).Performed | | | | | | by [employer],[address] | | | | | | Michi Pickens, [facility],[place] | | | | | | [address] | | | | | | [phone].[employer]. | | | | | | [facility], Dariel Tobin, | | | | [...] [facility] | [address] | [place], [place] | | | [facility] | | [address] | | + + + + + [...] + | [facility] [facility] | [address] | [place] [address] | | | [place] | | | [...] + | [facility] | [address] | [place] [address] | | | [place] | | | [...] [facility] | [address] | [place] [address] | | | SERVICES, CORE | PARK [...] | | | LABORATORY | | | PERUVIAN | | | SERVICES, | | | [...] the MDRD equation recommended by the | [facility] | | National Kidney Disease Education Program. [...] | + + + + + | [facility] | [address] | [place] [address] | | | VITALY RANKIN | KIMO [...]
--- OUTSIDE RECORDS SUMMARY | ~2019-07-14 | XMS | Encounter Summary ---
Demographics + + + | Address | [address] | | | [place] [address] | + + + | Home Phone [...] + + + | Author | [place] [employer] [facility] | + + + | Organization | [facility] [...] Providers + +------+ + | Care Cmm Technician Name | Role | Phone | [...] Refill Request | | 2013 | | [facility] [address] | Cathie, | | | | | [place] Mailcode: CH8N | DNP,TYPEWRITERS FUNCTIONAL TESTER,[place] [address] | | | | | [facility] | [address] [place], | | | | | and Healing, | [place] [address] | | | | | Building 1 | [phone] | | | | | [place], [place] | | | | | | [address] | | | | | | [phone] | | | +--------+--------+ + + + [...] Rd | | | | | | [place], [place] | | | | | | [address] | | | | | | [phone] | | | | | | | | +--------+---------+ + + + documented as of this encounter Visit Diagnoses Not on filedocumented in this encounter"
--- OUTSIDE RECORDS SUMMARY | ~2019-07-14 | XMS | Encounter Summary ---
Demographics + + + | Address | [address] | | | [place] [address] | + + + | Home Phone [...] + + + | Author | [place] [employer] [facility] | + + + | Organization | [facility] | + [...] Team Providers + +------+ + | Care Cabin Agent Name | Role | Phone | + +------+ + | Jhonny Rodriguez DO | PCP | | + +------+ + Encounter Details +--------+------+ + + + | Date | Type | Department | Care Team | Description | +--------+------+ + + + | 06/03/ | Lab | Laboratory at [facility] | | Pituitary adenoma | | 2012 | | [address] | | ([facility]); 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[place], [place]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 | | | | [address] | | ([facility]); Diabetes | | | | [phone] | | insipidus ([facility]); | | | | [...] | | 2019 | Visit | | [address] | | | | | | [address] | | | | | | [place], [place] | | | | | | [address] | | | | | | [phone] | | | | | | | [...] + | [facility] | [address] | [place] [address] | | | [place] | | | [...] + | [facility] - | [address] | [place] [address] | | | [place] | | | [...] + | [facility] - | [address] | [place] [address] | | | [place] | | | [...] + | [facility] - | [address] | [place] [address] | | | [place] | | | | + + + [...] + | [facility] [facility] - | [address] | [place] [address] | | | [place] | | | [...] | | | LABORATORY | | | POLISH | | | SERVICES, | | | [...] + + | [facility] | [address] | [place] [address] | | | SERVICES, CORE | KIMO [...]
--- OUTSIDE RECORDS SUMMARY | ~2019-07-14 | XMS | Encounter Summary ---
Demographics + + + | Address | [address] | | | [place] [address] | + + + | Home Phone [...] + + | Author | [place] [employer] [facility] | + + + | Organization | [facility] [...] Team Providers + +------+ + | Care Hot Room Attendant Name | Role | Phone | + +------+ + | Jinny Bergeron MD | PCP | | + +------+ + Encounter Details +--------+ + + + + | Date | Type | Department | Care Team | Description | +--------+ + + + + | 06/23/ | MyChart | Neurosurgery at | Donnie, | Growth Hormone | | 2016 | Encounter | [facility] [address] | Cathie | | | | | [place] Mailcode: CH8N | DNP,MANAGER HUMAN RESOURCES,[place] [address] | | | | | [facility] | [address] [place], | | | | | and [place], | [place] [address] | | | | | [place] [address] | [phone] | | | | | [place], [place] | | | | | | [address] | | | | | | [phone] | | | +--------+ + + + [...] Rd | | | | | | [place], [place] | | | | | | [address] | | | | | | [phone] | | | | | | | | +--------+---------+ + + + documented as of this encounter Visit Diagnoses Not on filedocumented in this encounter"
--- OUTSIDE RECORDS SUMMARY | ~2019-07-14 | XMS | Encounter Summary ---
Demographics + + + | Address | [address] | | | [place] [address] | + + + | Home Phone [...] + + + | Author | [place] [employer] [facility] | + + + | Organization | [facility] | [...] Team Providers + +------+ + | Care Rejected Items Clerk Name | Role | Phone | [...] Refill Request | | 2013 | | [facility] [address] | Cathie, | | | | | [place] Mailcode: CH8N | DNP,SCIENTIFIC ASSOCIATE,[place] [address] | | | | | [facility] | [address] [place], | | | | | and Healing, | [place] [address] | | | | | Building 1 | [phone] | | | | | [place], [place] | | | | | | [address] | | | | | | [phone] | | | +--------+--------+ + + + [...] [place] | | | | | | [address] | | | | | | [phone] | | | | | | | [...]
--- OUTSIDE RECORDS SUMMARY | ~2019-07-14 | XMS | Encounter Summary ---
Demographics + + + | Address | [address] | | | [place] [address] | + + + | Home Phone [...] Author + + + | Author | [facility] | | | and [place] | + + + | Organization | [facility] | | | and [place] [...] Team Providers + +------+ + | Care Financing Analyst Name | Role | Phone | + +------+ + PCP | Unavailable | + +------+ + Encounter Details +--------+ + + + + | Date | Type | Department | Care Team | Description | +--------+ + + + + | 03/11/ | Hospital | [facility] | [place], | | | 2006 | Encounter | MED CTR EMERGENCY | Inder Galarza MD [address] | | | | | CENTER [address] | [address] [place] | | | | | [place], [place] | [place] [address] | | | | | [address] | [phone] | | | | | [phone] | | | +--------+ + + + [...] [place] | | | | | | [address] | | | | | | | | +--------+---------+ + + + documented as of this encounter Visit Diagnoses Not on filedocumented in this encounter"
--- OUTSIDE RECORDS SUMMARY | ~2019-07-14 | XMS | Encounter Summary ---
Demographics + + + | Address | [address] | | | [place] [address] | + + + | Home Phone [...] + + + | Author | [place] [employer] [facility] | + + + | Organization | [facility] [...] Team Providers + +------+ + | Care Packing Machine Tender Name | Role | Phone | [...] Description | +--------+--------+ + + + | 08/19/ | Refill | Neurosurgery at | Donnie, | Refill Request | | 2011 | | [facility] [address] | Cathie, | | | | | [place] Mailcode: CH8N | DNP,CNA PCT,[place] [address] | | | | | [facility] | [address] [place], | | | | | and [facility] [place] | [place] [address] | | | | | Building 1 | [phone] | | | | | [place], [place] | | | | | | [address] | | | | | | [phone] | | | +--------+--------+ + + + [...] | | 2019 | Visit | | [address] | | | | | | [address] | | | | | | [place], [place] | | | | | | [address] | | | | | | [phone] | | | | | | | | +--------+---------+ + + + documented as of this encounter Visit Diagnoses Not on filedocumented in this encounter"
--- OUTSIDE RECORDS SUMMARY | ~2019-07-14 | XMS | Encounter Summary ---
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 | [address] | | | | | disease, | [address] | [address] | | | | | angina | [facility] | Mailcode: | | | | | presence | Rd | [address] | | | | | unspecified, | [facility], [place] | [place] | | | | | unspecified | [address] | Research | | | | | vessel or | Phone: | Center | | | | | lesion type, | [phone] | [place], [place] | | | | | unspecified | Fax: | [address] | | | | | whether | [phone] | Phone: | | | | | point hope ir[place] | | [phone] | | | | | transplanted | | Fax: | | | | | heart | | [phone] | | | | | Procedures | [...] | 2017 | Encounter | Services at [facility] | PA-C [address] | | | | | [address] | [address] | | | | | [place] Mailcode: | [place], [place] | | | | | [address] [facility] | [address] | | | | | [place], [place] | [phone] | | | | | [address] | | | | | | [phone] | Moreno Cotto MD | | | | | | [address] | | | | | | [place], [place] | | | | | | [address] | | | | | | [phone] | | | | | | | [...] | | 2019 | Visit | | [address] | | | | | | [address] | | | | | | [place], [place] | | | | | | [address] | | | | | | [phone] | | | | | | | | +--------+---------+ + + + documented as of this encounter Visit Diagnoses Not on filedocumented in this encounter"
--- OUTSIDE RECORDS SUMMARY | ~2019-07-14 | XMS | Encounter Summary ---
Demographics + + + | Address | [address] | | | [place] [address] | + + + | Home Phone [...] + + + | Author | [place] [facility] | + + + | Organization | [facility] [...] Team Providers + +------+ + | Care Contracts Analyst Name | Role | Phone | [...] 2005 | Only | [address] | [address] | | | | | Abdoulaye Mailcode:OP14B | [place], [place] | | | | | [facility] | [address] | | | | | [place], [place] | | | | | | [address] | | | | | | [phone] | | | +--------+ + + + [...] Rd | | | | | | [place], [place] | | | | | | [address] | | | | | | [phone] | | | | | | | [...]
--- OUTSIDE RECORDS SUMMARY | ~2019-07-14 | XMS | Encounter Summary ---
Demographics + + + | Address | [address] [facility] | | | [place] [address] | + + + | Home Phone [...] + + | Author | [place] [employer] [facility] | + + + | Organization | [facility] | [...] Team Providers + +------+ + | Care Cooling Room Attendant Name | Role | Phone [...] | | | Rosalva Mailcode: CH8N | DNP,DELIVERY RN,[place] [address] | | | | | [facility] | [address] [place], | | | | | and Healing, | [place] [address] | | | | | Building 1 | [phone] | | | | | [place], [place] | | | | | | [address] | | | | | | [phone] | | | +--------+--------+ + + + [...] Rd | | | | | | [place], [place] | | | | | | [address] | | | | | | [phone] | | | | | | | | +--------+---------+ + + + documented as of this encounter Visit Diagnoses + + | Diagnosis | + + | Pituitary adenoma (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
--- OUTSIDE RECORDS SUMMARY | ~2019-07-14 | XMS | Encounter Summary ---
Demographics + + + | Address | [address] [facility] | | | [place] [address] | + + + | Home Phone [...] + + + | Author | [place] [employer] [facility] | + + + | Organization | [facility] [...] Team Providers + +------+ + | Care Silo Man Name | Role | Phone | [...] | | | [address] | [place], [place] | Pituitary Gland and | | | | Mailcode: [id number] | [address] | Craniopharyngeal | | | | [facility] | [phone] | Duct (Pouch) ([facility]) | | | | [address] | | | | | | [place], [place] | | | | | | [address] | | | | | | [phone] | | | +--------+ + + + [...] | | 2019 | Visit | | [address] | | | | | | [address] | | | | | | [place], [place] | | | | | | [address] | | | | | | [phone] | | | | | | | [...] Performed At | + + + | [id number] Estimated GFR > 60 mL/min/1.73 sq m if non- | [facility] | | [id number] Estimated GFR > 60 mL/min/1.73 sq m [...] + + + + | [facility] | [address] | [place] [address] | | | PATHOLOGY | [address] | | | + + + + + | [facility] | [address] | [place] [address] | | | PATHOLOGY | [address] [...]
--- OUTSIDE RECORDS SUMMARY | ~2019-07-14 | XMS | Encounter Summary ---
Demographics + + + | Address | [address] | | | [place] [address] | + + + | Home Phone [...] + + + | Author | [place] [employer] [facility] | + + + | Organization | [facility] [...] Providers + +------+ + | Care Senior Electrical Project Manager Name | Role | Phone [...] | | | | | nasal | [place] | Abd[place], | | | | | endoscopy | [address] | [place] [address] | | | | | | | Phone: | | | | | | | [phone] | | | | | | | Fax: | | | | | | | [phone] | +--------+--------+ + + + + Encounter Details +--------+---------+ + + + | Date | Type | Department | Care Team | Description | +--------+---------+ + + + | 05/15/ | Office | Otolaryngology | Jus Shaw, | Atypical Face Pain | | 2005 | Visit | Sinus Services [address] | [address] | (Primary Dx) | | | | [address] [facility] | [facility] [address] | | | | | Rd Mailcode: OP01 | [place] [address] | | | | | Physician's | [phone] | | | | | [place] | | | | | | [place] [address] | | | | | | [phone] | | | +--------+---------+ + + + [...] | | 2019 | Visit | | [address] | | | | | | [address] | | | | | | [place], [place] | | | | | | [address] | | | | | | [phone] | | | | | | | [...]
--- OUTSIDE RECORDS SUMMARY | ~2019-07-14 | XMS | Encounter Summary ---
Demographics + + + | Address | [address] [address] | | | [place] [address] | + + + | Home Phone [...] + + + | Author | [place] [employer] [facility] | + + + | Organization | [facility] [...] Team Providers + +------+ + | Care Mixing Place Supervisor Name | Role | Phone | [...] | | | Rosal[place] Mailcode: CH8N | DNP,REPRODUCTION SPECIALIST,[place] [address] | | | | | [facility] | [address] [place], | | | | | and Healing, | [place] [address] | | | | | Building 1 | [phone] | | | | | [place], [place] | | | | | | [address] | | | | | | [phone] | | | +--------+--------+ + + + [...] Rd | | | | | | [place], [place] | | | | | | [address] | | | | | | [phone] | | | | | | | | +--------+---------+ + + + documented as of this encounter Visit Diagnoses Not on filedocumented in this encounter"
--- OUTSIDE RECORDS SUMMARY | ~2019-07-14 | XMS | Encounter Summary ---
Demographics + + + | Address | [address] | | | [place] [address] | + + + | Home Phone [...] + + + | Author | [place] [employer] [facility] | + + + | Organization | [facility] [...] Providers + +------+ + | Care Supervisor Cutting And Boning Name | Role | Phone | + [...] | | | | | | Abdoulaye [place], | | | | | | | [place] | | | | | | | [address] | | | | | | | Phone: | | | | | | | [phone] | | | | | | | Fax: | | | | | | | [phone] | +--------+--------+ + + + + Encounter Details +--------+---------+ + + + | Date | Type | Department | Care Team | Description | +--------+---------+ + + + | 03/10/ | Office | Neurosurgery at | Donnie, | Pituitary Adenoma | | 2007 | Visit | [address] | [place], | ([facility]); 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Ave Mailcode: CH8N | DNP,IGNITER ASSEMBLER,[place] [address] | Hormone Deficiency | | | | [place] for [facility] | [address] [place], | ([facility]); 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, | [place] [address] | Insipidus ([facility]); | | | | Building 1 | [phone] | Hypogonadism Male; | | | | [place], [place] | | Hypothyroid; Adrenal | | | | [address]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 ([facility]) | | | | [phone] | | | +--------+---------+ + + + [...] of the brachial reflex. Labs; LABS BMP, ROTATING FIELD ASSEMBLER, IGF-1, TSH, Free T4, LH, FSH, Testosterone, [...] patient has a history of adrenal insufficiency. ROTATING FIELD ASSEMBLER is pending but no change in hydrocortisone [...] months with MRI , labs Amairani Ulloa, [id number] Reason for visit: Chief Complaint Patient presents [...] in coordination of care CARRINGTON FIELDS NP [facility] [address] [facility] [place] [address] Component Reference Range 03/10/2008 03/10/2008 GLUCOSE (LAB) [...] [address]anner | | | | | | [place], [place] | | | | | | [address] | | | | | | [phone] | | | | | | | [...]
--- OUTSIDE RECORDS SUMMARY | ~2019-07-14 | XMS | Encounter Summary ---
Demographics + + + | Address | [address] | | | [place] [address] | + + + | Home Phone [...] + + + | Author | [place] [employer] [facility] | + + + | Organization | [facility] [...] Team Providers + +------+ + | Care Assembler Dc Field Yoke Name | Role | Phone | + +------+ + | Priscilla Ramírez PA-C | PCP | | + +------+ + Encounter Details +--------+ + + + + | Date | Type | Department | Care Team | Description | +--------+ + + + + | 07/07/ | Waterworks Chief Engineer | LAB CORE [address] | Alexandrai Alford MD | Preop examination | | 2015 | | [address] | [address] | (Primary Dx) | | | | [place], [place] | [address] [place], | | | | | [address] | [place] [address] | | | | | [phone] | [phone] | | | | | | | [...] Rd | | | | | | [place], [place] | | | | | | [address] | | | | | | [phone] | | | | | | | | +--------+---------+ + + + documented as of this encounter Visit Diagnoses + + | Diagnosis | + + | Preop examination - Primary Preoperative examination, unspecified | + + documented in this encounter"
--- OUTSIDE RECORDS SUMMARY | ~2019-07-14 | XMS | Encounter Summary ---
Demographics + + + | Address | [address] | | | [place] [address] | + + + | Home Phone [...] + + + | Author | [place] [employer] [facility] | + + + | Organization | [facility] [...] Team Providers + +------+ + | Care Steamfitter Supervisor Name | Role | Phone | [...] | | | | | adenoma | DNP,JOURNEYMAN MECHANIC,[place] | [address] | | | | | (HCC) | [address] | [address] | | | | | Procedures | Ave | Mailcode: | | | | | MRI | [facility] [place] | [address] | | | | | PITUITARY | [address] | [place] | | | | | WWO CONTRAST | Phone: | Research | | | | | [place] MRI | [phone] | [place] | | | | | BRAIN COMBO | Fax: | [place], [place] | | | | | | [phone] | [address] | | | | | | | Phone: | | | | | | | [phone] | | | | | | | Fax: | | | | | | | [phone] | +--------+--------+ + + + + Reason for Visit +--------+ + | Reason | Comments | +--------+ + | Other | | +--------+ + Encounter Details +--------+ + + + + | Date | Type | Department | Care Team | Description | +--------+ + + + + | 12/12/ | Telephone | Neurosurgery at | Donnie, | | | 2013 | | [facility] [address] | Cathie, | | | | | [place] Mailcode: CH8N | DNP,JOURNEYMAN MECHANIC,[place] [address] | | | | | [facility] | [address] [place], | | | | | and Healing, | [place] [address] | | | | | Building 1 | [phone] | | | | | [place], [place] | | | | | | [address] | | | | | | [phone] | | | +--------+ + + + [...] | | 2019 | Visit | | [address] | | | | | | [address] | | | | | | [place], [place] | | | | | | [address] | | | | | | [phone] | | | | | | | [...] | | + +---------+ + + | [facility] DEPARTMENT OF | | | | | RADIOLOGY | | | | + +---------+ + + documented in this encounter Visit Diagnoses + + | Diagnosis | + + | Pituitary adenoma (HCC) - Primary Benign neoplasm of pituitary gland and | | craniopharyngeal duct (pouch) | + + documented in this encounter"
--- OUTSIDE RECORDS SUMMARY | ~2019-07-14 | XMS | Encounter Summary ---
Demographics + + + | Address | [address] | | | [place] [address] | + + + | Home Phone [...] + + + | Author | [place] [employer] [facility] | + + + | Organization | [facility] [...] Providers + +------+ + | Care Travel Registered Nurse Icu Name | Role | Phone | [...] | | | | | adenoma | DNP,FIGURINE MAKER,[place] | [address] | | | | | (HCC) | [address] | [address] | | | | | Procedures | Ave | Mailcode: | | | | | MR PITUITARY | [place], [place] | [address] | | | | | WWO | [address] | [place] | | | | | CONTRAST | Phone: | Research | | | | | | [phone] | [place] | | | | | | Fax: | [place], [place] | | | | | | [phone] | [address] | | | | | | | Phone: | | | | | | | [phone] | | | | | | | Fax: | | | | | | | [phone] | +--------+--------+ + + + + Encounter Details +--------+ + + + + | Date | Type | Department | Care Team | Description | +--------+ + + + + | 06/07/ | Bias Machine Operator Helper | Neurosurgery at | Donnie, | Pituitary adenoma | | 2011 | | [facility] [address] | Cathie, | (HCC) (Primary Dx) | | | | Ave Mailcode: CH8N | DNP,FIGURINE MAKER,[place] [address] | | | | | [facility] | [address], | | | | | and [place], | [place] [address] | | | | | [place] [address] | [phone] | | | | | [place], [place] | | | | | | [address] | | | | | | [phone] | | | +--------+ + + + [...] | | 2019 | Visit | | [address] | | | | | | [address] | | | | | | [place], [place] | | | | | | [address] | | | | | | [phone] | | | | | | | [...] + + | Performing | Address | City[facility]State[facility] | Phone Number | | Organization | | | | + +---------+ + + | [facility] DEPARTMENT OF | | | | | RADIOLOGY | | | | + +---------+ + + documented in this encounter Visit Diagnoses + + | Diagnosis | + + | Pituitary adenoma (HCC) - Primary Benign neoplasm of pituitary gland and | | craniopharyngeal duct (pouch) | + + documented in this encounter"
--- OUTSIDE RECORDS SUMMARY | ~2019-07-14 | XMS | Encounter Summary ---
Demographics + + + | Address | [address] | | | [place] [address] | + + + | Home Phone [...] + + + | Author | [place] [employer] [facility] | + + + | Organization | [facility] [...] Providers + +------+ + | Care Public Administration Teacher Name | Role | Phone | [...] Appointment | | 2008 | Encounter | [facility] [address] | Cathie | | | | | [place] Mailcode: CH8N | DNP,MASTER OCEAN YACHT,[place] [address] | | | | | [facility] | [address] [place], | | | | | and Healing, | [place] [address] | | | | | [facility] 1 | [phone] | | | | | [place], [place] | | | | | | [address] | | | | | | [phone] | | | +--------+ + + + [...] Rd | | | | | | [place], [place] | | | | | | [address] | | | | | | [phone] | | | | | | | | +--------+---------+ + + + documented as of this encounter Visit Diagnoses Not on filedocumented in this encounter"
--- OUTSIDE RECORDS SUMMARY | ~2019-07-14 | XMS | Encounter Summary ---
Demographics + + + | Address | [address] | | | [place] [address] | + + + | Home Phone | | + + + | Preferred Language | Unknown | + + + | Marital Status | Single | + + + | Hoahaoism Affiliation | Unknown | + + + | Race | Unknown | + + + | Ethnic Group | Unknown | + + + Author + + + | Author | [facility] | | | and [place] | + + + | Organization | [facility] | [...] Team Providers + +------+ + | Care Rose Grower Name | Role | Phone | [...] | | | BMI of | | [place], | | | | | 45.0-49.9, | | [place] [address] | | | | | adult (HCC) | | Phone: | | | | | Weight | | [phone] | | | | | loss, | | Fax: | | | | | non-intentio | | [phone] | | | | | nal | [...] + + | 07/25/ | [facility] | [facility] | Jorge Lopez MD | EGD | | 2015 | | MED CTR MP INTRA OP | [address] | | | | | [address] | [place], [place] | | | | | [place] | [address] | | | | | [address] | [phone] | | | | | [phone] | | | +--------+---------+ + + + [...] the physician who did your procedure at [phone] if you have any questions or experience any of the following: ? Increasing abdominal pain, nausea, or vomiting. ? Chills and fever over 101F. ? New abdominal swelling or bloating. ? Signs of rectal bleeding (black or red stool). If you cannot get a hold of your physician, then call the [facility] [phone] . If necessary, report to the Emergency Department at [facility]. Quit smoking: If you smoke or [...] [place] | | | | | | [address] | | | | | | | [...] adult | | | | | | ([facility]) Weight loss, | | | | [...] 07/25/2015 | PROVATION | | 12:12 PMMRN: [id number] #: [id number] of : | | | 1980Admit Type: AmbulatoryAge: 35Room: [facility] 02Gender: MaleNote | | | Status: FinalizedAttending MD: Jorge Lopez [facility]cedure: | | | Upper GI endoscopyIndications: Screening | | | procedureProviders: Jorge Lopez MD, Vida Nelson | | | PAIGE Burnette, Priscilla Jimenez, | | | Sleeve Baster, Inder Espinoza MD (Anesthesia | | | [...] the | | | anesthesiologist and the pest technician in the pre-procedure area in the [...] 12:28:52 PM | | | [facility], [facility] [place], [place] | | | [address] | | | symptoms of potential delayed [...] 12:28:52 PM | | | [facility], [address] [place] [address] | | | [address] | | + + -+ + +---------+ [...] | | esophagus). - Negative for dysplasia. [facility]:C2NR GROSS | | | DESCRIPTION: The specimen [...] | fragments, 0.15-0.3 cm, all into (B1). yt:[facility] PERFORMING | | | LABORATORY: Tissue processing and slide preparation were performed by | | | [employer], [address], [place] [address] | | | (Sheltered Workshop Worker: Balta Pack M.D. CLIA#: [id number]). | | | Professional interpretation was performed by [facility] | | | [facility], [address] [place] [address], [place], | | | [place] [address] (Sheltered Workshop Worker: Nitin Avina M.D.; CLIA#: | | | [id number]). Diagnostician: Nitin Avina MD Pathologist | | [...]
--- OUTSIDE RECORDS SUMMARY | ~2019-07-14 | XMS | Encounter Summary ---
Demographics + + + | Address | [address] | | | [place] [address] | + + + | Home Phone [...] + + | Author | [place] [employer] [facility] | + + + | Organization | [facility] | [...] Team Providers + +------+ + | Care Transmissions Systems Operator Name | Role | Phone | [...] | | 2011 | | [facility] [address] | Cathie, | | | | | [place] Mailcode: CH8N | DNP,INVESTIGATOR WELFARE,[place] [address] | | | | | [facility] | [address] [place], | | | | | and [facility], | [place] [address] | | | | | Building 1 | [phone] | | | | | [place], [place] | | | | | | [address] | | | | | | [phone] | | | +--------+--------+ + + + [...] | | 2019 | Visit | | [address] | | | | | | [address] | | | | | | [place], [place] | | | | | | [address] | | | | | | [phone] | | | | | | | | +--------+---------+ + + + documented as of this encounter Visit Diagnoses Not on filedocumented in this encounter"
--- OUTSIDE RECORDS SUMMARY | ~2019-07-14 | XMS | Encounter Summary ---
Demographics + + + | Address | [address] | | | [place] [address] | + + + | Home Phone [...] + + + | Author | [place] [employer] [facility] | + + + | Organization | [facility] | + + + | Address | Unknown | + + + | Phone | Unavailable | + + + Support + + +---------+ + | Name | Relationship | Address | Phone | + + +---------+ + | Alexandria Dixon | ECON | Unknown | | + + +---------+ + Care Team Providers + +------+ + | Care Take Up Operator Name | Role | Phone | [...] Refill Request | | 2008 | | [facility] [address] | [place]ie, | | | | | [place] Mailcode: CH8N | DNP,SWITCH INSPECTOR,[place] [address] | | | | | [facility] | [address] [place], | | | | | and [facility], | [place] [address] | | | | | Building 1 | [phone] | | | | | [place], [place] | | | | | | [address] | | | | | | [phone] | | | +--------+--------+ + + + [...] 08/15/ | Office | Cardiology | Zuleika eHrnandez, | | | 2019 | Visit | | [address] | | | | | | [address] | | | | | | [place], [place] | | | | | | [address] | | | | | | [phone] | | | | | | | | +--------+---------+ + + + documented as of this encounter Visit Diagnoses Not on filedocumented in this encounter"
--- OUTSIDE RECORDS SUMMARY | ~2019-07-14 | XMS | Encounter Summary ---
Demographics + + + | Address | [address] | | | [place] [address] | + + + | Home Phone | | + + + | Preferred Language | Unknown | + + + | Marital Status | Single | + + + | Alevism Affiliation | Unknown | + + + | Race | Unknown | + + + | Ethnic Group | Unknown | + + + Author + + + | Author | [facility] | | | and [place] | + + + | Organization | [facility] | | | and [place] [...] Team Providers + +------+ + | Care Gaming Commissioner Name | Role | Phone | + [...] | | | | | | [place] REPAIR OF | | | | | | | NASAL | | | | | | | SEPTUM [place] | | | | | | [...] + + | 04/08/ | Surgery | [facility] | Mckay De Leon MD | Septoplasty, | | 2016 | | MED CTR [place] INTRA OP | [address] [place] | Inferior | | | | [address] | [address] [place], | Turbinoplasty | | | | [place], [place] | [place] [address] | | | | | [address] | [phone] | | | | | [phone] | | | +--------+---------+ + + + [...] nose can help reduce and remove crusts. 4920-6228 [facility]. [address] [place] [address], [place] [address]. All righ ts reserved. This information is [...] the amount of crusting at each visit. 5349-[address] [employer] [place] [address]. All righ ts reserved. This information is [...] [place] | | | | | | [address] | | | | | | | [...] [address] | FARRAH Thomas | [phone] | | [facility] | | [address] | | | - LABORATORY | | [...] | | | | | | use [place] 10/325 if ordered. If | | | [...]
--- OUTSIDE RECORDS SUMMARY | ~2019-07-14 | XMS | Encounter Summary ---
Demographics + + + | Address | [address] | | | [place] [address] | + + + | Home Phone [...] + + + | Author | [place] [employer] [facility] | + + + | Organization | [facility] | + [...] Team Providers + +------+ + | Care Dip Brazier Name | Role | Phone | + [...] | Clinic [address] | [place], [place] | | | | | [address] | [address] | | | | | Mailcode: [id number] | | | | | | [facility] | | | | | | [address] | | | | | | [place], [place] | | | | | | [address] | | | | | | [phone] | | | +--------+ + + + [...] Rd | | | | | | [place], [place] | | | | | | [address] | | | | | | [phone] | | | | | | | [...]
--- OUTSIDE RECORDS SUMMARY | ~2019-07-14 | XMS | Encounter Summary ---
Demographics + + + | Address | [address] [facility] | | | [place] [address] | + + + | Home Phone [...] + + + | Author | [place] [employer] [facility] | + + + | Organization | [facility] Science [facility] [...] Providers + +------+ + | Care Licensed Weigher Name | Role | Phone | [...] | | 2017 | Encounter | at [facility] [address] | | [address] | | | | [address] Mailcode: | | | | | | [facility] | | | | | | Health and Healing, | | | | | | [facility] | | | | | | floor [place], [place] | | | | | | [address] | | | | | | [phone] | | | +--------+ + + + [...] Rd | | | | | | [place], [place] | | | | | | [address] | | | | | | [phone] | | | | | | | | +--------+---------+ + + + documented as of this encounter Visit Diagnoses Not on filedocumented in this encounter"
--- OUTSIDE RECORDS SUMMARY | ~2019-07-14 | XMS | Encounter Summary ---
Demographics + + + | Address | [address] | | | [place] [address] | + + + | Home Phone [...] + + + | Author | [place] [employer] [facility] | + + + | Organization | [facility] | [...] Team Providers + +------+ + | Care Scrum Product Owner Name | Role | Phone | + [...] [address] | | | | | [facility] | [place], [place] | | | | | jannette Marti, | [address] | | | | | Building [address] | [phone] | | | | | [place], [place] | | | | | | [address] | | | | | | [phone] | | | +--------+--------+ + + + [...] | | 2019 | Visit | | [address] | | | | | | [address] | | | | | | [place], [place] | | | | | | [address] | | | | | | [phone] | | | | | | | | +--------+---------+ + + + documented as of this encounter Visit Diagnoses Not on filedocumented in this encounter"
--- OUTSIDE RECORDS SUMMARY | ~2019-07-14 | XMS | Encounter Summary ---
Demographics + + + | Address | [address] | | | [place] [address] | + + + | Home Phone [...] + + + | Author | [place] [employer] [facility] | + + + | Organization | [facility] | + + + | Address | Unknown | + + + | Phone | Unavailable | + + + Support + + +---------+ + | Name | Relationship | Address | Phone | + + +---------+ + | Alexandria Dixon | ECON | Unknown | | + + +---------+ + Care Team Providers + +------+ + | Care Classics Professor Name | Role | Phone | + +------+ + | No Pcp Per Patient | PCP | Unavailable | + +------+ + Encounter Details +--------+ + + + + | Date | Type | Department | Care Team | Description | +--------+ + + + + | 02/20/ | Telephone | Neurosurgery at | Jaclyn Crawford, | | | 2010 | | [facility] [address] | [address] | | | | | [place] Mailcode: CH8N | [address] | | | | | [facility] | [place], [place] | | | | | and Healing, | [address] | | | | | [facility] 1 | [phone] | | | | | [place], [place] | | | | | | [address] | | | | | | [phone] | | | +--------+ + + + [...] Rd | | | | | | [place], [place] | | | | | | [address] | | | | | | [phone] | | | | | | | | +--------+---------+ + + + documented as of this encounter Visit Diagnoses Not on filedocumented in this encounter"
--- OUTSIDE RECORDS SUMMARY | ~2019-07-14 | XMS | Encounter Summary ---
Demographics + + + | Address | [address] | | | [place] [address] | + + + | Home Phone [...] + + + | Author | [place] [employer] [facility] | + + + | Organization | [facility] [...] Refill Request | | 2018 | | [facility] [address] | [place], | | | | | [place] Mailcode: CH8N | DNP,SMALL PIECE CUTTER,[place] [address] | | | | | [facility] | [address] [place], | | | | | and Healing, | [place] [address] | | | | | Building 1 | [phone] | | | | | [place], [place] | | | | | | [address] | | | | | | [phone] | | | +--------+--------+ + + + [...] Rd | | | | | | [place], [place] | | | | | | [address] | | | | | | [phone] | | | | | | | | +--------+---------+ + + + documented as of this encounter Visit Diagnoses + + | Diagnosis | + + | Panhypopituitarism (HCC) Panhypopituitarism | + + documented in this encounter"
--- OUTSIDE RECORDS SUMMARY | ~2019-07-14 | XMS | Encounter Summary ---
Demographics + + + | Address | [address] | | | [place] [address] | + + + | Home Phone [...] + + + | Author | [place] [employer] [facility] | + + + | Organization | [facility] [...] Providers + +------+ + | Care Licensed Loan Officer Assistant Name | Role | Phone | [...] sugar | | 2009 | Encounter | [facility] [address] | [place] | | | | | [place] Mailcode: CH8N | DNP,CERTIFIED TUMOR REGISTRAR,[place] [address] | | | | | [facility] [place] | [address] [place], | | | | | and Healing, | [place] [address] | | | | | Building | [phone] | | | | | Floor [place], [place] | | | | | | [address] | | | | | | [phone] | | | +--------+ + + + [...] | | | | | | [place], [place] | | | | | | [address] | | | | | | [phone] | | | | | | | | +--------+---------+ + + + documented as of this encounter Visit Diagnoses Not on filedocumented in this encounter"
--- OUTSIDE RECORDS SUMMARY | ~2019-07-14 | XMS | Encounter Summary ---
Demographics + + + | Address | [address] | | | [place] [address] | + + + | Home Phone [...] + + + | Author | [place] [employer] [facility] | + + + | Organization | [facility] | + [...] Providers + +------+ + | Care Clinical Sciences Professor Name | Role | Phone | [...] at [address] | [place], | instructions) | | | | [address] | [place] [address] | | | | | [address] | | | | | | Mailcode: OP12B [facility] | | | | | | [address] | | | | | | [place], | | | | | | [place] [address] | | | | | | [phone] | | | +--------+ + + + [...] [place] | | | | | | [address] | | | | | | [phone] | | | | | | | | +--------+---------+ + + + documented as of this encounter Visit Diagnoses Not on filedocumented in this encounter"
--- OUTSIDE RECORDS SUMMARY | ~2019-07-14 | XMS | Encounter Summary ---
Demographics + + + | Address | [address] | | | [place] [address] | + + + | Home Phone [...] + + + | Author | [place] [employer] [facility] | + + + | Organization | [facility] | [...] Team Providers + +------+ + | Care Scabbler Name | Role | Phone | + [...] | | | | | ANTICOAGULAT | [place], [place] | | | | | | [facility] | [address] | | | | | | | Phone: | | | | | | | [phone] | | | | | | | Fax: | | | | | | | [phone] | | + +--------+ + + + [...] + + | 07/08/ | Hospital | [facility] Jose [address] | Koffi Aguilar | | | 2016 | Encounter | [address] | MD Michell [address] | | | | | [id number] Mike | [address] | | | | | [place], | [place], [place] | | | | | [place] [address] | [address] | | | | | [phone] | [phone] | | | | | | | [...] valve on echocard iogram. He presented to [facility] for surgical removal of the mass and coronary bypass grafting. 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 Endocrinology was called regarding his chronic steroids an d he will take 50mg hydrocortisone once this evening and will resume home dosage tomorrow. [facility] management has arranged for INR [...] Your Medications These medications were sent to [facility] [address], [place] [address] Hours: 8AM-9PM Mon-Fri; 9-5:30PM Sat-Sun hydrocortisone 10 [...] tobacco use Core Measures: Diagnosis of Acute ND: No Diagnosis of CHF: No Follow Up Appointments: PCP:. When? 1 month Other: INR - To be arranged by case management for check on 07/10/16 or 07/11/16 - patient wi ll be contacted with appointment information Blaise Aguilar on 08/14/16 Follow Up Tests: (Tests at [facility] must be entered into [employer]) Stress Echo at follow-up appointment with Dr. [...] Ashish Meyer PA-C Division of Cardiothoracic Surgery [facility] [place] Mail Code L353 [address] [facility] [place] [phone] Associated attestation - Koffi Aguilar MD - [...] showed a patent stent to the LCx, HOME AND FAMILY LIVING PROFESSOR of the RCA (prior attempt to o [...] follow up for this i ssue at [facility] if possible. I will arrange for these [...] | 2019 | Visit | | [address] [facility] | | | | | | [address] | | | | | | [place], [place] | | | | | | [address] | | | | | | [phone] | | | | | | | [...] + + + | X-RAY | EXAM: [place] CHEST 1 VIEW | | | | [...] RAMSEY | [address] | [place], [place] | | | KASHIF THORNE OF [facility] | [address] | [address] | | | TESTS | | | [...] ROXY | [address] | [place], [place] | | | MATI EDEN OF [facility] | [address] | [address] | | | TESTS | | | [...] + | [facility] | [address] | [place] [address] | | | SERVICES, | [address] [...] MARQUAM | [address] | [place], [place] | | | MATI POINT OF CARE | [address] | [address] | | | TESTS | | | [...]
--- OUTSIDE RECORDS SUMMARY | ~2019-07-14 | XMS | Encounter Summary ---
Demographics + + + | Address | [address] | | | [place] [address] | + + + | Home Phone | | + + + | Preferred Language | Unknown | + + + | Marital Status | Single | + + + | Jainism Affiliation | Unknown | + + + | Race | Unknown | + + + | Ethnic Group | Unknown | + + + Author + + + | Author | [facility] | | | and [place] | + + + | Organization | [facility] | | [...] Team Providers + +------+ + | Care Laminating Machine Offbearer Name | Role | Phone | + [...] of nasal | [place], [place] | [place] [address] | | | | | turbinates | [address] | Phone: | | | | | M[place]A | Phone: | [phone] | | | | | (obstructive | [phone] | Fax: | | | | | sleep | Fax: | [phone] | | | | | apnea) | [phone] | | | | | | Hypertrophy | | | | | | | of tonsils | | | | | | | alone | | | | | | | Procedures | | | | | | | SC REPAIR OF | | | | | | | NASAL | | | | | | | SEPTUM SC | | | | | | [...] | Hypertrophy of | | | | [place], [place] | [place] [address] | nasal turbinates; | | | | [address] | [phone] | Obstructive sleep | | | | [phone] | | apnea (adult) | | | [...] [place] | | | | | | [address] | | | | | | | | +--------+---------+ + + + + + +--------+ + + | Name | Type | Priori | Associated Diagnoses | Order Schedule | | | | ty | | | + + +--------+ + + | Ambulatory referral | Outpatient | Routin | Deviated nasal | Ordered: 03/24/2016 | | to [facility] | Referral | e | [...]
--- OUTSIDE RECORDS SUMMARY | ~2019-07-14 | XMS | Encounter Summary ---
Demographics + + + | Address | [address] | | | [place] [address] | + + + | Home Phone [...] [facility] | | | and [place] | + + + | Organization | [facility] | | | and [place] [...] Team Providers + +------+ + | Care Ict Teacher Name | Role | Phone | [...] | SR | | | | | [phone] | | | +--------+ + + + [...] 2020 | Visit | | [address] | | | | | | [place] | | | | | | [address] | | | | | | | | +--------+---------+ + + + documented as of this encounter Visit Diagnoses Not on filedocumented in this encounter
--- OUTSIDE RECORDS SUMMARY | ~2019-07-14 | XMS | Encounter Summary ---
Demographics + + + | Address | [address] | | | [place] [address] | + + + | Home Phone [...] + + + | Author | [place] [employer] [facility] | + + + | Organization | [facility] [...] Team Providers + +------+ + | Care Reducing Machine Operator Name | Role | Phone [...] | | [facility] [address] | [place], | | | | | [place] Mailcode: CH8N | DNP,BEARINGIZER,[place] [address] | | | | | [facility] | [address] [place], | | | | | and [facility], | [place] [address] | | | | | Building 1 | [phone] | | | | | [place], [place] | | | | | | [address] | | | | | | [phone] | | | +--------+--------+ + + + [...] Rd | | | | | | [place], [place] | | | | | | [address] | | | | | | [phone] | | | | | | | | +--------+---------+ + + + documented as of this encounter Visit Diagnoses Not on filedocumented in this encounter"
--- OUTSIDE RECORDS SUMMARY | ~2019-07-14 | XMS | Encounter Summary ---
Demographics + + + | Address | [address] | | | [place] [address] | + + + | Home Phone [...] + + | Author | [place] [employer] [facility] | + + + | Organization | [facility] [...] Team Providers + +------+ + | Care Malt House Loader Name | Role | Phone | + +------+ + | Jinny Bergeron MD | PCP | | + +------+ + Encounter Details +--------+------+ + + + | Date | Type | Department | Care Team | Description | +--------+------+ + + + | 11/14/ | Lab | Laboratory at [facility] | | Pituitary adenoma | | 2015 | | [address] | | ([facility]); 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[place], [place]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 | | | | [address] | | ([facility]); 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[facility]); | | | | | | [...] | | 2019 | Visit | | [address] | | | | | | [address] | | | | | | [place], [place] | | | | | | [address] | | | | | | [phone] | | | | | | | [...] | + + + + + | [facility] | [address] | [place] [address] | | | SERVICES, SPECIAL | [address] [...] + + + + + | [facility] | [address] | [place] [address] | | | VITALY RANKIN | [address] [...] + | [facility] | [address] | [place] [address] | | | [place] | | | [...] + | [facility] | [address] | [place] [address] | | | [place] | | | [...] + | [facility] | [address] | [place] [address] | | | [place] | | | [...] [facility] | [address] | [place] [address] | | | SERVICES, CORE | PARK [...] | | | LABORATORY | | | [place] | | | SERVICES, | | | [...] + + + + + | [facility] | [address] | [place] [address] | | | SERVICES, VITALY | K[address] [...]
--- OUTSIDE RECORDS SUMMARY | ~2019-07-14 | XMS | Encounter Summary ---
Demographics + + + | Address | [address] | | | [place] [address] | + + + | Home Phone [...] + + + | Author | [place] [employer] [facility] | + + + | Organization | [facility] | [...] Team Providers + +------+ + | Care Bilingual Teacher Name | Role | Phone | [...] Levels | | 2011 | Encounter | [facility] [address] | [place] | | | | | [place] Mailcode: CH8N | DNP,AIRCRAFT CHARTER DISPATCHER,[place] [address] | | | | | [facility] | [address] [place], | | | | | and Healing, | [place] [address] | | | | | Building 1 | [phone] | | | | | [place], [place] | | | | | | [address] | | | | | | [phone] | | | +--------+ + + + [...] Rd | | | | | | [place], [place] | | | | | | [address] | | | | | | [phone] | | | | | | | | +--------+---------+ + + + documented as of this encounter Visit Diagnoses Not on filedocumented in this encounter"
[~2019-07-14 21:46] MED LIST changes: +ALLEGRA ALLERG180 MG PO; +CLOPIDOGREL75 MG PO; +METFORMIN HCL1000 MG PO; +NORCO 5-325 TA1 EACH PO; +RANEXA1000 MG PO; +SOLU-CORTEF100 MG INJ; +TESTOSTERO200 MG/1 M IM; +VITAMIN D1000 UNI1 PO; +VITAMIN D35000 UNI1 PO
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
--- NOTE | 2019-07-15 16:05 | EKG ---
[facility] [address] [place], [place] [address] Signed Sinus bradycardia Otherwise normal ECG When compared with ECG of 18-AUG-2017 15:01, No significant change was found Confirmed by FRED ERVIN DO ([id number]) on 07/15/2019 4:05:11 PM Electronically Signed By: FRED ERVIN DO 07/15/19 1605 PATIENT NAME: FAROOQ LEMA JULIO Electrocardiogram DATE OF : 78 PHYSICIAN: FRED ERVIN DO REPORT #: [id number] REPORT IS CONFIDENTIAL AND NOT TO BE RELEASED WITHOUT AUTHORIZATION
== END 2019-07-15 00:17 | disposition home or self-care (01) ==
LOC: ED 21:46
DX: S16.1XXA Strain of muscle, fascia and tendon at neck level, initial encounter (principal); R07.9 Chest pain, unspecified; I10 Essential (primary) hypertension; E78.00 Pure hypercholesterolemia, unspecified; I25.2 Old myocardial infarction; E66.01 Morbid (severe) obesity due to excess calories; Z88.2 Allergy status to sulfonamides; Z88.1 Allergy status to other antibiotic agents; Z79.899 Other long term (current) drug therapy; Z79.82 Long term (current) use of aspirin; Z79.84 Long term (current) use of oral hypoglycemic drugs; V89.2XXA Person injured in unspecified motor-vehicle accident, traffic, initial encounter
CPT/HCPCS: 70450; 71046; 72125; 80053; 83735; 84484; 85025; 93005; 93010; 99284-25

== ENCOUNTER 2020-11-29 16:41 | Emergency (ER) | payer MEDICARE, OTHER ==
[~2020-11-29] VITALS: Ht 172.7 cm; Wt 129.3 kg
--- OUTSIDE RECORDS SUMMARY | 2020-11-29 16:44 | XMS ---
PreManage Notification: FAROOQ LEMA Security Mid Level Business Analyst Events No recent Security Events currently on file CRITERIA MET - [facility] CARE PROVIDERS LUIS ALFREDO VALDEZ Registered Nurse: [facility] 11/08/2018-[facility] PHONE: [phone] [facility] 07/15/2019- PHONE: [phone] Ashley has no Care Guidelines for this patient. Care History Medical/Surgical 11/08/2018 [facility] \T\middot;\T\nbsp; PATIENT IS A [place] ELIGIBLE. \T\middot;\T\nbsp; PLEASE REFER PATIENT TO [facility] FOR NON EMERGENT MEDICAL NEEDS. \T\middot;\ T\nbsp; [facility] CAN SEE PATIENTS SAME DAY FOR APTS IF PATIENT CALLS FIRST THING IN THE MORNING. E.D. VISIT COUNT (12 MO.) 1 CRISTIAN Arciniega TOTAL 1 NOTE: Visits indicate total known visits. ED/UCC VISIT TRACKING (12 MO.) 11/29/2020 16:42 [facility]ST[facility] Ferrer [place] TYPE: Emergency COMPLAINT: - RT LEG SWELLING INPATIENT VISIT TRACKING (12 MO.) No inpatient visits to display in this time frame [email or web address]
== END 2020-11-29 19:42 | disposition home or self-care (01) ==
LOC: ED 16:41
DX: M79.89 Other specified soft tissue disorders (principal); I10 Essential (primary) hypertension; E78.00 Pure hypercholesterolemia, unspecified; I25.2 Old myocardial infarction; E66.01 Morbid (severe) obesity due to excess calories; Z88.2 Allergy status to sulfonamides; Z88.1 Allergy status to other antibiotic agents; Z79.899 Other long term (current) drug therapy; Z79.84 Long term (current) use of oral hypoglycemic drugs; Z79.82 Long term (current) use of aspirin
CPT/HCPCS: 93971; 99283-25

== ENCOUNTER 2024-05-24 07:07 | Emergency (ER) | payer MEDICARE, OTHER ==
[~2024-05-24] VITALS: Ht 172.7 cm; Wt 113.8 kg
[2024-05-24] MEDS ORDERED: ondansetron HCL 4 MG/2 ML VIAL IV ONE (07:30)
[2024-05-24] MEDS ORDERED: SODIUM CHLORIDE 0.9% 1,000 ML IV PRN (07:30)
[2024-05-24] MEDS ORDERED: HYDROCORTISONE SOD SUCCINATE 100 MG/2 ML VIAL IV ONE (07:30)
[2024-05-24 07:41] LABS: BASOPHILS 0.9 % (0-2); EOSINOPHILS 1.6 % (0-6); HEMATOCRIT 56.4 % (35.0-50.0); HEMOGLOBIN 19.2 g/dL (12.0-18.0); LYMPHOCYTES 5.2 % (24-44); MCH 31.9 (27-36); MCV 93.8 fl (81-99); MONOCYTES 13.1 % (0-12); NEUTROPHILS 79.2 % (39-80); PLATELET COUNT 179 K/uL (140-440); RBC 6.01 M/ul (4.3-5.7); RDW 13.9 (10.5-15.0)
[2024-05-24 07:55] LABS: INR 1.17 (0.80-1.30); PROTIME 14.5 Sec (11.2-14.2)
[2024-05-24 07:57] LABS: PARTIAL THROMBOPLASTIN TIME 27.4 Sec (22.9-41.3)
[2024-05-24] MEDS ORDERED: MORPHINE SULFATE 4 MG/ML VIAL ONE (07:58)
[2024-05-24] MEDS ORDERED: CLOPIDOGREL BISULFATE 75 MG TAB PO ONE (08:00)
[2024-05-24] MEDS ORDERED: ASPIRIN 81 MG CHEW PO ONE (08:00)
[2024-05-24] MEDS ORDERED: HEParin SOD (PORCINE) 5,000 UNIT/ML SYR IV ONE (08:00)
[2024-05-24] MEDS ORDERED: HEPARIN SOD,PORK IN 0.45% NACL 500 ML IV SCH (08:00)
[2024-05-24 08:15] LABS: ALBUMIN 2.6 g/dL (3.4-5.0); ALBUMIN/GLOBULIN RATIO 0.84 (1.1-2.4); BUN/CREATININE RATIO 12.23 (6.0-28.6); CALCIUM 7.3 mg/dL (8.5-10.1); CREATININE, SERUM 1.39 mg/dL (0.70-1.30); MAGNESIUM 1.6 mg/dL (1.8-2.4); PROTEIN, TOTAL 5.7 g/dL (6.4-8.2)
[2024-05-24] MEDS ORDERED: MORPHINE SULFATE 4 MG/ML VIAL IV ONE (08:15)
[2024-05-24 08:35] VITALS: BP 80/56
--- NOTE | 2024-05-26 21:36 | EKG ---
[facility] [address] [facility] [place], [place] [address] Signed Normal sinus rhythm Right bundle branch block ST elevation, consider inferior injury or acute infarct ACUTE [place] / STEMI Abnormal ECG No previous ECGs available Confirmed by Sincere Juarez MD ([id number]) on 05/26/2024 9:35:44 PM Electronically Signed By: SINCERE JUAREZ DO 05/26/24 2136 PATIENT NAME: LEMA,FAROOQNoah KIM Electrocardiogram DATE OF : 78 PHYSICIAN: SINCERE JUAREZ DO REPORT #: [id number] REPORT IS CONFIDENTIAL AND NOT TO BE RELEASED WITHOUT AUTHORIZATION
== END 2024-05-24 08:35 | disposition short-term general hospital (02) ==
LOC: ED 07:07
PROVIDERS: Emergency Medicine
DX: I21.19 ST elevation (STEMI) myocardial infarction involving other coronary artery of inferior wall (principal); I10 Essential (primary) hypertension; E78.00 Pure hypercholesterolemia, unspecified; E11.9 Type 2 diabetes mellitus without complications; E66.01 Morbid (severe) obesity due to excess calories; Z68.38 Body mass index [BMI] 38.0-38.9, adult; Z95.5 Presence of coronary angioplasty implant and graft; Z88.2 Allergy status to sulfonamides; Z88.1 Allergy status to other antibiotic agents; Z79.890 Hormone replacement therapy; Z79.82 Long term (current) use of aspirin; Z79.84 Long term (current) use of oral hypoglycemic drugs; Z79.899 Other long term (current) drug therapy
CPT/HCPCS: 36415; 80053; 83735; 83880; 84484; 85025; 85610; 85730; 87502; 93005; 93010; 96374; 96375; 99285-25; J1644; J1720; J2270; J2405; J7030; U0002